=== PATIENT | female | born 1945 | race Caucasian/White ===

== ENCOUNTER 2019-04-10 06:04 | Emergency (ER) | payer OTHER ==
[2019-04-10 06:24] LABS: Absolute Lymphocytes (CBC) 1.2 K/uL (0.7-4.9); Basophils % 0.5 % (0-1.3); Hematocrit 40.6 % (36.0-45.0); Lymphocytes % 15.6 % (15.3-44.8); MPV 8.7 fL (7.6-11.3); RBC Red Blood Cell Count 4.42 M/uL (3.86-4.86)
[2019-04-10 06:36] LABS: Protime INR 0.99
--- NOTE | 2019-04-10 06:43 | RAD REPORT ---
EXAM DESCRIPTION: RAD - Chest Single View - 04/10/2019 6:33 am CLINICAL HISTORY: weakness Chest pain. COMPARISON: Chest Pa And Lat (2 Views) dated 09/27/2018 FINDINGS: Portable technique limits examination quality. The lungs are grossly clear. The heart is normal in size. No displaced fractures. IMPRESSION: No acute intrathoracic process suspected.
[2019-04-10] MEDS ORDERED: FOLIC ACID 5 MG/ML VIAL ONE (07:06)
[2019-04-10] MEDS ORDERED: NA CHLORIDE 0.9% 100 ML IV ONE (07:06)
[2019-04-10 07:13] LABS: Potassium 3.8 mmol/L (3.5-5.1)
--- NOTE | 2019-04-10 07:15 | EDPHYS ---
Physician Documentation [facility] Name: Marla Campos Age: 73 yrs Sex: Female : 1945 Arrival Date: 04/10/2019 Time: 06:07 Bed 3 Private MD: ED Physician Willard Beach HPI: 04/10 06:22 This 73 yrs old Female presents to ER via EMS with complaints of facial droop.cp 06:22 The patient's problem is reported as a facial droop, on left. Onset: The cp symptoms/episode began/occurred noticed this morning. Duration: The episode is continuous. 06:22 Context: the episode(s) was witnessed, by a significant other, , occurred at cp home, occurred while the patient was noticed while patient was attempting to poor water into coffee pot. reports he heard patient dropping dishes in kitchen. Associated signs and symptoms: Pertinent negatives: abdominal pain, chest pain, headache, weakness. Patient's baseline: Neuro: alert and fully oriented, Motor: no deficits, Ambulation: walks without assistance, Speech: normal. 06:22 Patient reports going to bed last night approximately 2030 and feeling normal. Patient cp reports awakening about 0430 this morning and feeling normal. EMS reports patient's heard her dropping dishes in kitchen and then observed patient to have left side facial droopat around 0500. Historical: - Allergies: 07:02 PENICILLINS; aa1 07:02 Sulfa (Sulfonamide Antibiotics); aa1 07:02 Demerol; aa1 07:02 Iodinated Contrast Media - IV Dye; aa1 07:02 Breo Ellipta; aa1 07:02 Biaxin; aa1 07:02 Clotrimazole-Betamethasone; aa1 07:02 Lyrica; aa1 07:02 Florinef Acetate; aa1 07:02 CITRIC ACID; aa1 07:02 QUINOLONES; aa1 07:02 Relafen; aa1 07:02 Vioxx; aa1 07:02 Prevacid; aa1 07:02 Periostat; aa1 07:02 Doxycycline; aa1 07:02 GABAPENTIN; aa1 - Home Meds: 07:02 spironolactone 100 mg Oral tab 1 tab once daily [Active]; metolazone 5 mg oral tab 1 aa1 tab once daily [Active]; potassium chloride 10 mEq Oral cpER 2 caps 3 times per day [Active]; levocetirizine 5 mg oral tab 1 tab once daily [Active]; Premarin 0.625 mg/gram Vagl crea 2 times per wk [Active]; promethazine-DM 6.25-15 mg/5 mL Oral syrp 5 mL every 6 hours [Active]; Ventolin Rotahaler/Rotacaps Inhl as needed [Active]; Albuterol Nebulizer as needed [Active]; clindamycin HCl 300 mg Oral cap as needed [Active]; nitrofurantoin macrocrystal 100 mg Oral cap as needed [Active]; - PMHx: 07:02 Asthma; fluid retention; aa1 - PSHx: 07:02 Appendectomy; Hysterectomy; Knee surgery; aa1 - Immunization history:: Adult Immunizations up to date. - Social history:: Smoking status: Patient/guardian denies using tobacco. - Ebola Screening: : Patient negative for fever greater than or equal to 101.5 degrees Fahrenheit, and additional compatible Ebola Virus Disease symptoms. ROS: 06:25 Eyes: Negative for injury, pain, redness, and discharge. cp 06:25 Constitutional: Negative for body aches, chills, fever, poor PO intake. 06:25 Cardiovascular: Negative for chest pain, edema, palpitations. 06:25 Respiratory: Negative for cough, shortness of breath, wheezing. 06:25 Abdomen/GI: Negative for abdominal pain, nausea, vomiting, and diarrhea. 06:25 Skin: Negative for rash. 06:25 Neuro: Positive for left side facial droop, Negative for altered mental status, dizziness, headache, numbness, syncope, weakness. 06:25 All other systems are negative. Exam: 06:23 ECG was reviewed by the Attending Physician. cp 06:32 Constitutional: The patient appears in no acute distress, alert, awake, cp non-diaphoretic, non-toxic, well developed, well nourished. 06:32 Head/face: Noted is no obvious of injury or deformity except left side facial droop. 06:32 Eyes: Periorbital structures: appear normal, Pupils: equal, round, and reactive to light and accomodation, Extraocular movements: intact throughout, Conjunctiva: normal, Sclera: no appreciated abnormality, Lids and lashes: appear normal, bilaterally. 06:32 ENT: External ear(s): are unremarkable, Nose: is normal, Mouth: is normal, Posterior pharynx: is normal, airway is patent, no erythema, no exudate. 06:32 Neck: ROM/movement: is normal, is supple, without pain, no range of motions limitations, no nuchal rigidity. 06:32 Chest/axilla: Inspection: normal, Palpation: is normal, no crepitus, no tenderness. 06:32 Cardiovascular: Rate: normal, Rhythm: regular, Edema: is not appreciated, JVD: is not appreciated. 06:32 Respiratory: the patient does not display signs of respiratory distress, Respirations: normal, no use of accessory muscles, no shallow respirations, no tachypnea, labored breathing, is not present, Breath sounds: are clear throughout, no decreased breath sounds, no stridor, no wheezing. 06:32 Abdomen/GI: Inspection: abdomen appears normal, Bowel sounds: normal, in all quadrants, Palpation: abdomen is soft and non-tender, in all quadrants. 06:32 Back: pain, is absent, ROM is normal. 06:32 Skin: no rash present. 06:32 Neuro: Orientation: to person, place \T\ time. Mentation: is normal, Cerebellar function: Romberg testing is negative, normal finger to nose testing, heel to al testing is normal, Motor: moves all fours, strength is normal, Sensation: is normal. 06:38 Radiologist reports: no acute findings, noted chronic changes associated with age cp Vital Signs: 06:23 BP 145 / 60; Pulse 80; Resp 17 S; Temp 98.1(O); Pulse Ox 100% on R/A; Weight 66.22 kg jd3 (R); Height 5 ft. 6 in. (167.64 cm) (R); Pain 0/10; 07:30 BP 125 / 60; Pulse 70; Resp 16 S; Temp 98.0(TE); Pulse Ox 98% on R/A; Pain 0/10; aa5 08:15 BP 122 / 64; Pulse 74; Resp 18 S; Pulse Ox 100% on R/A; Pain 0/10; aa5 06:23 Body Mass Index 23.56 (66.22 kg, 167.64 cm) jd3 NIH Stroke Scale Scores: 06:24 NIHSS Score: 2 rn 06:25 NIHSS Score: 2 cc3 06:25 NIHSS Score: 2 cc3 07:05 NIHSS Score: 2 aa5 07:35 NIHSS Score: 2 aa5 MDM: 06:21 Patient medically screened. cp 06:21 ED course: After long discussion with patient, she woke up at 0430 this morning, felt rn fine and still feels fine. woke up because hear her dropping things in kitchen, told her her face was drooping and talking funny, patient insists that she does not recognize anything being wrong with her. Exam shows left lower facial droop with some forehead sparing and subtle left am weakness without drift. Subtle sluggish closing/weakness of left eye. When asked about findings, patient unaware that they are present. She states she was normal when woke up but given she still states is currently asymptomatic, unreliable and unclear timing. Last known normal is going to be when she fell asleep last night around 2030. Given last known normal last night, and unclear events this AM, will not give TPA. Given lack of gross findings other than face, still possible that is bells palsy. Explained timing and need for definitive onset of symptoms/last known normal, patient agrees that she is not sure and would agree that las night when going to bed is last known normal.. 07:10 Physician consultation: DR Medrano, hospitalist, will accept patient as transfer. cp 07:20 Data reviewed: vital signs, nurses notes, lab test result(s), EKG, radiologic studies, cp CT scan, plain films, I have discussed the patient's presentation/case with the attending Emergency Department Physician;. 07:20 Test interpretation: by ED physician or midlevel provider: ECG. 04/10 06:12 Order name: Basic Metabolic Panel; Complete Time: 07:16 mw2 04/10 07:16 Interpretation: Normal except: NA 134; GLUC 107; GFR 48. 04/10 06:12 Order name: CBC with Diff; Complete Time: 06:51 mw2 04/10 07:16 Interpretation: Reviewed. 04/10 06:12 Order name: Protime (+inr); Complete Time: 06:51 mw2 04/10 06:12 Order name: Ptt, Activated; Complete Time: 06:51 mw2 04/10 07:06 Order name: Troponin I 04/10 07:06 Order name: LAB Add On cp 04/10 07:06 Order name: BNP cp 04/10 06:12 Order name: CT Stroke Brain w/o Contrast [facility] 04/10 06:12 Order name: Stroke CXR 1 View; Complete Time: 06:51 mw2 04/10 06:12 Order name: EKG; Complete Time: 06:14 mw2 04/10 06:12 Order name: Accucheck; Complete Time: 06:35 mw2 04/10 06:12 Order name: Cardiac monitoring; Complete Time: 06:35 mw2 04/10 06:12 Order name: EKG - Nurse/Tech; Complete Time: 06:35 mw2 04/10 06:12 Order name: IV Saline Lock; Complete Time: 06:35 mw2 04/10 06:12 Order name: Labs collected and sent; Complete Time: 06:35 mw2 04/10 06:12 Order name: NPO; Complete Time: 06:35 mw2 04/10 06:12 Order name: O2 Per Protocol; Complete Time: 06:35 mw2 04/10 06:12 Order name: O2 Sat Monitoring; Complete Time: 06:35 mw2 04/10 06:12 Order name: Stroke Swallow Screen; Complete Time: 06:36 mw2 EC:23 Rate is 83 beats/min. Rhythm is regular. OK interval is normal. QRS interval is normal. cp QT interval is normal. T waves are Flattened in lead aVL. Interpreted by me. Reviewed by me. Administered Medications: 07:00 Drug: foLIC Acid 1 mg Route: IVPB; Site: right forearm; cc3 07:14 Not Given (patient failed swallow screen): Aspirin Chewable Tablet 324 mg PO once; 81 cp mg tablets x 4 07:30 Drug: Aspirin Suppository 300 mg Route: OK; aa5 Point of Care Testing: Blood Glucose: 06:12 Blood Glucose: 108 mg/dL; cc3 Ranges: Critical Glucose Levels:Adult <50 mg/dl or >400 mg/dl <40 mg/dl or >180 mg/dl Disposition: 07:30 Chart complete. cp Disposition: 04/10/19 07:13 Transfer ordered to [facility]. Diagnosis is Left Facial Droop. - Reason for transfer: Higher level of care. - Accepting physician is DR Medrano. - Condition is Stable. - Problem is new. - Symptoms are unchanged. NIH Stroke Scale - NIH Stroke Score Date: 04/10/2019 Time: 06:24 Total Score = 2 1a. Level of Consciousness (LOC) - 0(Alert) 1b. Level of Consciousness (LOC) (Year \T\ Age) - 0(Both) 1c. LOC Commands (Open \T\ Closes Eyes/Marketing Graphics Specialist) - 0(Both) 2. Best Gaze (Lateral Gaze Paresis) - 0(Normal) 3. Visual Field Loss - 0(No visual loss) 4. Facial Palsy - 2(Partial paralysis) 5a. Left Arm: Motor (10-second hold) - 0(No drift) 5b. Right Arm: Motor (10-second hold) - 0(No drift) 6a. Left Leg: Motor (5-second hold - always test supine) - 0(No drift) 6b. Right Leg: Motor (5-second hold - always test supine) - 0(No drift) 7. Limb Ataxia (finger/nose \T\ heel/al - test with eyes open) - 0(Absent) 8. Sensory Loss (pinprick arms/legs/face) - 0(Normal) 9. Best Language: Aphasia (description/naming/reading) - 0(No aphasia) 10. Dysarthria (speech clarity - read or repeat words) - 0(Normal) 11. Extinction and Inattention (visual/tactile/auditory/spatial/personal) - 0(No abnormality) Initials: gertrude NIH Stroke Scale - NIH Stroke Score Date: 04/10/2019 Time: 06:25 Total Score = 2 1a. Level of Consciousness (LOC) - 0(Alert) 1b. Level of Consciousness (LOC) (Year \T\ Age) - 0(Both) 1c. LOC Commands (Open \T\ Closes Eyes/Marketing Graphics Specialist) - 0(Both) 2. Best Gaze (Lateral Gaze Paresis) - 0(Normal) 3. Visual Field Loss - 0(No visual loss) 4. Facial Palsy - 2(Partial paralysis) 5a. Left Arm: Motor (10-second hold) - 0(No drift) 5b. Right Arm: Motor (10-second hold) - 0(No drift) 6a. Left Leg: Motor (5-second hold - always test supine) - 0(No drift) 6b. Right Leg: Motor (5-second hold - always test supine) - 0(No drift) 7. Limb Ataxia (finger/nose \T\ heel/al - test with eyes open) - 0(Absent) 8. Sensory Loss (pinprick arms/legs/face) - 0(Normal) 9. Best Language: Aphasia (description/naming/reading) - 0(No aphasia) 10. Dysarthria (speech clarity - read or repeat words) - 0(Normal) 11. Extinction and Inattention (visual/tactile/auditory/spatial/personal) - 0(No abnormality) Initials: cc3 NIH Stroke Scale - NIH Stroke Score Date: 04/10/2019 Time: 06:25 Total Score = 2 1a. Level of Consciousness (LOC) - 0(Alert) 1b. Level of Consciousness (LOC) (Year \T\ Age) - 0(Both) 1c. LOC Commands (Open \T\ Closes Eyes/Marketing Graphics Specialist) - 0(Both) 2. Best Gaze (Lateral Gaze Paresis) - 0(Normal) 3. Visual Field Loss - 0(No visual loss) 4. Facial Palsy - 2(Partial paralysis) 5a. Left Arm: Motor (10-second hold) - 0(No drift) 5b. Right Arm: Motor (10-second hold) - 0(No drift) 6a. Left Leg: Motor (5-second hold - always test supine) - 0(No drift) 6b. Right Leg: Motor (5-second hold - always test supine) - 0(No drift) 7. Limb Ataxia (finger/nose \T\ heel/al - test with eyes open) - 0(Absent) 8. Sensory Loss (pinprick arms/legs/face) - 0(Normal) 9. Best Language: Aphasia (description/naming/reading) - 0(No aphasia) 10. Dysarthria (speech clarity - read or repeat words) - 0(Normal) 11. Extinction and Inattention (visual/tactile/auditory/spatial/personal) - 0(No abnormality) Initials: cc3 NIH Stroke Scale - NIH Stroke Score Date: 04/10/2019 Time: 07:05 Total Score = 2 1a. Level of Consciousness (LOC) - 0(Alert) 1b. Level of Consciousness (LOC) (Year \T\ Age) - 0(Both) 1c. LOC Commands (Open \T\ Closes Eyes/Marketing Graphics Specialist) - 0(Both) 2. Best Gaze (Lateral Gaze Paresis) - 0(Normal) 3. Visual Field Loss - 0(No visual loss) 4. Facial Palsy - 2(Partial paralysis) 5a. Left Arm: Motor (10-second hold) - 0(No drift) 5b. Right Arm: Motor (10-second hold) - 0(No drift) 6a. Left Leg: Motor (5-second hold - always test supine) - 0(No drift) 6b. Right Leg: Motor (5-second hold - always test supine) - 0(No drift) 7. Limb Ataxia (finger/nose \T\ heel/al - test with eyes open) - 0(Absent) 8. Sensory Loss (pinprick arms/legs/face) - 0(Normal) 9. Best Language: Aphasia (description/naming/reading) - 0(No aphasia) 10. Dysarthria (speech clarity - read or repeat words) - 0(Normal) 11. Extinction and Inattention (visual/tactile/auditory/spatial/personal) - 0(No abnormality) Initials: aa5 NIH Stroke Scale - NIH Stroke Score Date: 04/10/2019 Time: 07:35 Total Score = 2 1a. Level of Consciousness (LOC) - 0(Alert) 1b. Level of Consciousness (LOC) (Year \T\ Age) - 0(Both) 1c. LOC Commands (Open \T\ Closes Eyes/Marketing Graphics Specialist) - 0(Both) 2. Best Gaze (Lateral Gaze Paresis) - 0(Normal) 3. Visual Field Loss - 0(No visual loss) 4. Facial Palsy - 2(Partial paralysis) 5a. Left Arm: Motor (10-second hold) - 0(No drift) 5b. Right Arm: Motor (10-second hold) - 0(No drift) 6a. Left Leg: Motor (5-second hold - always test supine) - 0(No drift) 6b. Right Leg: Motor (5-second hold - always test supine) - 0(No drift) 7. Limb Ataxia (finger/nose \T\ heel/al - test with eyes open) - 0(Absent) 8. Sensory Loss (pinprick arms/legs/face) - 0(Normal) 9. Best Language: Aphasia (description/naming/reading) - 0(No aphasia) 10. Dysarthria (speech clarity - read or repeat words) - 0(Normal) 11. Extinction and Inattention (visual/tactile/auditory/spatial/personal) - 0(No abnormality) Initials: aa5 Addendum: 04/12/2019 07:12 Co-signature as Attending Physician, Willard Beach MD. rn Signatures: Dispatcher [employer] EDMS Jodee Persaud RN RN aa1 Willard Beach MD MD rn Calderon, Audri, RN RN aa5 Naveed Blackmon PA PA cp Davies, Jonathon RN RN jd3 Chuck Frederick mw2 Maryam Gilbert cc3 Corrections: (The following items were deleted from the chart) 04/10 06:35 06:21 ED course: After long discussion with patient, she woke up at 0430 this rn morning, felt fine and still feels fine. woke up because hear her dropping things in kitchen, told her her face was drooping and talking funny, patient insists that she does not recognize anything being wrong with her. Exam shows left lower facial droop with forehead sparing and subtle left am weakness without drift. When asked about findings, patient unaware that they are present. She states she was normal when woke up but given she still states is currently asymptomatic, unreliable and unclear timing. Last known normal is going to be when she fell asleep last night around 2029. Given last known normal last night, and unclear events this AM, will not give TPA. . rn 08:51 07:13 04/10/2019 07:13 Transfer ordered to [facility]. aa5 Diagnosis is Left Facial Droop. Reason for transfer: Higher level of care. Accepting physician is DR Medrano. Condition is Stable. Problem is new. Symptoms are unchanged. cp
--- NOTE | 2019-04-10 07:15 | ER ---
Nurse's Notes [facility] Name: Marla Campos Age: 73 yrs Sex: Female : 1945 Arrival Date: 04/10/2019 Time: 06:07 Bed 3 Private MD: Diagnosis: Left Facial Droop Presentation: 04/10 06:06 Presenting complaint: Patient states: she woke up this morning about 0500 feeling aa1 normal but shortly after waking she went to get a glass of water and dropped the glass due to weakness in her hand. EMS states pt's went to check on her and pt began to develop a facial droop as well. States, "I felt fine when I woke up and didn't even notice anything. It was must that saw it." Pt met in ambulance bay by MD and taken to CT by EMS stretcher. Transition of care: patient was not received from another setting of care. Onset of symptoms was April 10, 2019 at 05:00. Risk Assessment: Do you want to hurt yourself or someone else? Patient reports no desire to harm self or others. Initial Sepsis Screen: Does the patient have a suspected source of infection? No. Patient's initial sepsis screen is negative. 06:06 Method Of Arrival: EMS: [facility] aa1 06:06 Acuity: DANNY 2 aa1 06:06 An acute neurological deficit is present. The charge nurse has been notified. jd3 Pre-hospital glucose is not applicable to this patient. 06:23 Initial Sepsis Screen: Does the patient meet any 2 criteria? No. Patient's initial jd3 sepsis screen is negative. Care prior to arrival: IV initiated. 18 GA, in the right wrist. Triage Assessment: 06:06 The onset of the patients symptoms was April 10, 2019 at 05:00. General: Appears in cc3 no apparent distress. comfortable, Behavior is calm, cooperative, appropriate for age. Pain: Denies pain. EENT: No signs and/or symptoms were reported regarding the EENT system. 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 Full function Speech is normal, Facial droop on left, Facial symmetry: tongue is midline, Pupils are PERRLA, Intact Reports facial droop. Cardiovascular: Denies chest pain, Heart tones S1 S2 present Capillary refill < 3 seconds in bilateral fingers Patient's skin is warm and dry. Rhythm is sinus rhythm. Respiratory: Airway is patent Respiratory effort is even, unlabored, Respiratory pattern is regular, symmetrical. GI: Abdomen is round non-distended, Bowel sounds present X 4 quads. : No signs and/or symptoms were reported regarding the genitourinary system. Derm: Skin is intact, is fragile, Skin is pink, warm \\T\\ dry. normal. Musculoskeletal: Circulation, motion, and sensation intact. Range of motion: intact in all extremities. Stroke Activation: Symptom onset > 6 hours Physician: Stroke Attending; Name: ; Notified At: ; Arrived At: Physician: Chief Stroke Resident; Name: ; Notified At: ; Arrived At: Physician: Stroke Resident; Name: ; Notified At: ; Arrived At: Physician: ED Attending; Name: Dr. Beach; Notified At: 06:04; Arrived At: 06:04 Physician: ED Resident; Name: ; Notified At: ; Arrived At: Historical: - Allergies: 07:02 PENICILLINS; aa1 07:02 Sulfa (Sulfonamide Antibiotics); aa1 07:02 Demerol; aa1 07:02 Iodinated Contrast Media - IV Dye; aa1 07:02 Breo Ellipta; aa1 07:02 Biaxin; aa1 07:02 Clotrimazole-Betamethasone; aa1 07:02 Lyrica; aa1 07:02 Florinef Acetate; aa1 07:02 CITRIC ACID; aa1 07:02 QUINOLONES; aa1 07:02 Relafen; aa1 07:02 Vioxx; aa1 07:02 Prevacid; aa1 07:02 Periostat; aa1 07:02 Doxycycline; aa1 07:02 GABAPENTIN; aa1 - Home Meds: 07:02 spironolactone 100 mg Oral tab 1 tab once daily [Active]; metolazone 5 mg oral tab 1 aa1 tab once daily [Active]; potassium chloride 10 mEq Oral cpER 2 caps 3 times per day [Active]; levocetirizine 5 mg oral tab 1 tab once daily [Active]; Premarin 0.625 mg/gram Vagl crea 2 times per wk [Active]; promethazine-DM 6.25-15 mg/5 mL Oral syrp 5 mL every 6 hours [Active]; Ventolin Rotahaler/Rotacaps Inhl as needed [Active]; Albuterol Nebulizer as needed [Active]; clindamycin HCl 300 mg Oral cap as needed [Active]; nitrofurantoin macrocrystal 100 mg Oral cap as needed [Active]; - PMHx: 07:02 Asthma; fluid retention; aa1 - PSHx: 07:02 Appendectomy; Hysterectomy; Knee surgery; aa1 - Immunization history:: Adult Immunizations up to date. - Social history:: Smoking status: Patient/guardian denies using tobacco. - Ebola Screening: : Patient negative for fever greater than or equal to 101.5 degrees Fahrenheit, and additional compatible Ebola Virus Disease symptoms. Screenin:25 VAN Screening: Arm Drift: Patient shows no arm weakness. Patient is VAN negative. cc3 Visual Disturbance: No visual disturbance noted. Aphasia: No aphasia noted. Neglect: No neglect noted. Patient has been NPO before screening. The patient is alert, able to follow commands. The patient does not exhibit slurred or garbled speech The patient is not exhibiting difficulty speaking. The patient does not exhibit difficulty understanding words. The patient is able to swallow own secretions with no drooling or need for suction. Patient tolerated one teaspoon of water. No drooling, immediate coughing, gurgling, or clearing of the throat was noted. The patient did not tolerate 90mL of water. Drooling, immediate coughing, gurgling, or clearing of the throat was noted. Bedside swallow screening discontinued. Patient kept NPO until cleared by Speech Therapy or Physician. The patient failed the bedside swallow screening. The patient will be kept NPO until cleared by Speech Therapy or Physician. Provider notified of bedside swallow screening results: Willard Beach MD. 06:27 Abuse screen: Denies threats or abuse. Nutritional screening: No deficits noted. jd3 Tuberculosis screening: No symptoms or risk factors identified. Fall Risk IV access (20 points). Ambulatory Aid- None/Bed Rest/Nurse Assist (0 pts). Gait- Normal/Bed Rest/Wheelchair (0 pts) Mental Status- Oriented to own ability (0 pts). Total Levine Fall Scale indicates No Risk (0-24 pts). Assessment: 06:25 VAN Scoring: Arm Drift: Patients demonstrates NO arm weakness. Patient is VAN Negative. cc3 Visual Disturbance: No visual disturbance noted. Aphasia: No aphasia noted. Neglect: No neglect noted. Patient has been NPO before screening. The patient is alert, and able to follow commands. The patient does not exhibit slurred or garbled speech. The patient is not exhibiting difficulty speaking. The patient does not exhibit difficulty understanding words. The patient is able to swallow own secretions with no drooling or need for suction. Patient tolerated one teaspoon of water. No drooling, immediate coughing, gurgling, or clearing of the throat was noted. The patient did not tolerate 90mL of water. Drooling, immediate coughing, gurgling, or clearing of the throat was noted. Bedside swallow screening discontinued. Patient kept NPO until cleared by Speech Therapy or Physician. The patient failed the bedside swallow screening. The patient will be kept NPO until cleared by Speech Therapy or Physician. Provider notified of bedside swallow screening results: Willard Beach MD. 07:05 General: Appears comfortable, Behavior is calm, cooperative. Pain: Denies pain. 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 Speech is normal, Facial droop on left, Pupils are PERRLA, Denies blurred vision dizziness, paresthesias numbness headache. Cardiovascular: Heart tones S1 S2 present Rhythm is regular. Respiratory: Airway is patent Respiratory effort is even, unlabored, Respiratory pattern is regular, symmetrical, Breath sounds are clear bilaterally. GI: Abdomen is non-distended, Bowel sounds present X 4 quads. Abd is soft and non tender X 4 quads. : No signs and/or symptoms were reported regarding the genitourinary system. EENT: No signs and/or symptoms were reported regarding the EENT system. Derm: Skin is pink, warm \\T\\ dry. Musculoskeletal: Range of motion: intact in all extremities. 07:05 T-PA (Activase) Screening: Contraindications: Other: symptoms onset unknown. aa5 07:35 Reassessment: Patient is alert, oriented x 3, equal unlabored respirations, skin aa5 warm/dry/pink. Patient denies pain at this time. 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 Speech is normal, Facial droop on left, Pupils are PERRLA. 07:55 Reassessment: Pt assisted to the bathroom, pt was unsteady standing up and taking a few sv steps. Pt placed in a wheelchair and taken to the bathroom. 08:43 Reassessment: Patient is alert, oriented x 3, equal unlabored respirations, skin aa5 warm/dry/pink. Vital Signs: 06:23 BP 145 / 60; Pulse 80; Resp 17 S; Temp 98.1(O); Pulse Ox 100% on R/A; Weight 66.22 kg jd3 (R); Height 5 ft. 6 in. (167.64 cm) (R); Pain 0/10; 07:30 BP 125 / 60; Pulse 70; Resp 16 S; Temp 98.0(TE); Pulse Ox 98% on R/A; Pain 0/10; aa5 08:15 BP 122 / 64; Pulse 74; Resp 18 S; Pulse Ox 100% on R/A; Pain 0/10; aa5 06:23 Body Mass Index 23.56 (66.22 kg, 167.64 cm) jd3 NIH Stroke Scale Scores: 06:24 NIHSS Score: 2 rn 06:25 NIHSS Score: 2 cc3 06:25 NIHSS Score: 2 cc3 07:05 NIHSS Score: 2 aa5 07:35 NIHSS Score: 2 aa5 ED Course: 06:06 Maintain EMS IV. Dressing intact. Good blood return noted. Site clean \\T\\ dry. Gauge \\T\\ cc 3 site: gauge 18 right forearm. 06:07 Patient arrived in ED. aa1 06:08 Naveed Blackmon PA is PHCP. cp 06:08 Willard Beach MD is Attending Physician. cp 06:10 CT completed. Patient tolerated procedure well. Patient moved to CT via stretcher. Patient moved back from CT. 06:16 Triage completed. aa1 06:21 CT Stroke Brain w/o Contrast In Process Unspecified. EDMS 06:25 Arm band placed on. EKG completed in triage. Results shown to MD. jd3 06:27 Patient has correct armband on for positive identification. Placed in gown. Bed in low jd3 position. Call light in reach. Side rails up X2. 06:33 Stroke CXR 1 View In Process Unspecified. EDMS 06:34 Maryam Gilbert is Primary Nurse. cc3 07:00 Report given to LEONARDA Martell and LEONARDA Campos. cc3 07:00 Report received from LEONARDA Francisco. aa5 07:26 Beth Rick, LEONARDA is Primary Nurse. aa5 08:43 No provider procedures requiring assistance completed. Patient transferred, IV remains aa5 in place. Administered Medications: 07:00 Drug: foLIC Acid 1 mg Route: IVPB; Site: right forearm; cc3 07:14 Not Given (patient failed swallow screen): Aspirin Chewable Tablet 324 mg PO once; 81 cp mg tablets x 4 07:30 Drug: Aspirin Suppository 300 mg Route: NJ; aa5 Point of Care Testing: Blood Glucose: 06:12 Blood Glucose: 108 mg/dL; cc3 Ranges: Outcome: 07:13 ER care complete, transfer ordered by . cp 08:43 Transferred by ground EMS to [facility], Transfer form completed. aa5 X-rays sent w/ patient. Note: Report given to [facility] 08:43 Condition: stable 08:43 Discharge instructions given to patient, significant other, Instructed on the need for transfer, Demonstrated understanding of instructions. 08:48 Patient left the ED. aa5 NIH Stroke Scale - NIH Stroke Score Date: 04/10/2019 Time: 06:24 Total Score = 2 1a. Level of Consciousness (LOC) - 0(Alert) 1b. Level of Consciousness (LOC) (Year \\T\\ Age) - 0(Both) 1c. LOC Commands (Open \\T\\ Closes Eyes/[place]anner) - 0(Both) 2. Best Gaze (Lateral Gaze Paresis) - 0(Normal) 3. Visual Field Loss - 0(No visual loss) 4. Facial Palsy - 2(Partial paralysis) 5a. Left Arm: Motor (10-second hold) - 0(No drift) 5b. Right Arm: Motor (10-second hold) - 0(No drift) 6a. Left Leg: Motor (5-second hold - always test supine) - 0(No drift) 6b. Right Leg: Motor (5-second hold - always test supine) - 0(No drift) 7. Limb Ataxia (finger/nose \\T\\ heel/al - test with eyes open) - 0(Absent) 8. Sensory Loss (pinprick arms/legs/face) - 0(Normal) 9. Best Language: Aphasia (description/naming/reading) - 0(No aphasia) 10. Dysarthria (speech clarity - read or repeat words) - 0(Normal) 11. Extinction and Inattention (visual/tactile/auditory/spatial/personal) - 0(No abnormality) Initials: rn NIH Stroke Scale - NIH Stroke Score Date: 04/10/2019 Time: Total Score = 2 1a. Level of Consciousness (LOC) - 0(Alert) 1b. Level of Consciousness (LOC) (Year \\T\\ Age) - 0(Both) 1c. LOC Commands (Open \\T\\ Closes Eyes/[place]) - 0(Both) 2. Best Gaze (Lateral Gaze Paresis) - 0(Normal) 3. Visual Field Loss - 0(No visual loss) 4. Facial Palsy - 2(Partial paralysis) 5a. Left Arm: Motor (10-second hold) - 0(No drift) 5b. Right Arm: Motor (10-second hold) - 0(No drift) 6a. Left Leg: Motor (5-second hold - always test supine) - 0(No drift) 6b. Right Leg: Motor (5-second hold - always test supine) - 0(No drift) 7. Limb Ataxia (finger/nose \\T\\ heel/al - test with eyes open) - 0(Absent) 8. Sensory Loss (pinprick arms/legs/face) - 0(Normal) 9. Best Language: Aphasia (description/naming/reading) - 0(No aphasia) 10. Dysarthria (speech clarity - read or repeat words) - 0(Normal) 11. Extinction and Inattention (visual/tactile/auditory/spatial/personal) - 0(No abnormality) Initials: cc3 NIH Stroke Scale - NIH Stroke Score Date: 04/10/2019 Time: Total Score = 2 1a. Level of Consciousness (LOC) - 0(Alert) 1b. Level of Consciousness (LOC) (Year \\T\\ Age) - 0(Both) 1c. LOC Commands (Open \\T\\ Closes Eyes/[place]) - 0(Both) 2. Best Gaze (Lateral Gaze Paresis) - 0(Normal) 3. Visual Field Loss - 0(No visual loss) 4. Facial Palsy - 2(Partial paralysis) 5a. Left Arm: Motor (10-second hold) - 0(No drift) 5b. Right Arm: Motor (10-second hold) - 0(No drift) 6a. Left Leg: Motor (5-second hold - always test supine) - 0(No drift) 6b. Right Leg: Motor (5-second hold - always test supine) - 0(No drift) 7. Limb Ataxia (finger/nose \\T\\ heel/al - test with eyes open) - 0(Absent) 8. Sensory Loss (pinprick arms/legs/face) - 0(Normal) 9. Best Language: Aphasia (description/naming/reading) - 0(No aphasia) 10. Dysarthria (speech clarity - read or repeat words) - 0(Normal) 11. Extinction and Inattention (visual/tactile/auditory/spatial/personal) - 0(No abnormality) Initials: cc3 NIH Stroke Scale - NIH Stroke Score Date: 04/10/2019 Time: 07:05 Total Score = 2 1a. Level of Consciousness (LOC) - 0(Alert) 1b. Level of Consciousness (LOC) (Year \\T\\ Age) - 0(Both) 1c. LOC Commands (Open \\T\\ Closes Eyes/[place]) - 0(Both) 2. Best Gaze (Lateral Gaze Paresis) - 0(Normal) 3. Visual Field Loss - 0(No visual loss) 4. Facial Palsy - 2(Partial paralysis) 5a. Left Arm: Motor (10-second hold) - 0(No drift) 5b. Right Arm: Motor (10-second hold) - 0(No drift) 6a. Left Leg: Motor (5-second hold - always test supine) - 0(No drift) 6b. Right Leg: Motor (5-second hold - always test supine) - 0(No drift) 7. Limb Ataxia (finger/nose \\T\\ heel/al - test with eyes open) - 0(Absent) 8. Sensory Loss (pinprick arms/legs/face) - 0(Normal) 9. Best Language: Aphasia (description/naming/reading) - 0(No aphasia) 10. Dysarthria (speech clarity - read or repeat words) - 0(Normal) 11. Extinction and Inattention (visual/tactile/auditory/spatial/personal) - 0(No abnormality) Initials: aa5 NIH Stroke Scale - NIH Stroke Score Date: 04/10/2019 Time: 07:35 Total Score = 2 1a. Level of Consciousness (LOC) - 0(Alert) 1b. Level of Consciousness (LOC) (Year \\T\\ Age) - 0(Both) 1c. LOC Commands (Open \\T\\ Closes Eyes/[place]) - 0(Both) 2. Best Gaze (Lateral Gaze Paresis) - 0(Normal) 3. Visual Field Loss - 0(No visual loss) 4. Facial Palsy - 2(Partial paralysis) 5a. Left Arm: Motor (10-second hold) - 0(No drift) 5b. Right Arm: Motor (10-second hold) - 0(No drift) 6a. Left Leg: Motor (5-second hold - always test supine) - 0(No drift) 6b. Right Leg: Motor (5-second hold - always test supine) - 0(No drift) 7. Limb Ataxia (finger/nose \\T\\ heel/al - test with eyes open) - 0(Absent) 8. Sensory Loss (pinprick arms/legs/face) - 0(Normal) 9. Best Language: Aphasia (description/naming/reading) - 0(No aphasia) 10. Dysarthria (speech clarity - read or repeat words) - 0(Normal) 11. Extinction and Inattention (visual/tactile/auditory/spatial/personal) - 0(No abnormality) Initials: aa5 Signatures: Dispatcher [employer] ED[facility] Jayshree Geronimo RN RN sv Autenrieth, Alissa, RN RN aa1 Erickson Guaman Audri, RN RN aa5 Naveed Blackmon PA PA cp Davies, Jonathon RN RN jd3 Maryam Gilbert cc3 Corrections: (The following items were deleted from the chart) 06:23 06:23 Care prior to arrival: None. jd3 jd3 06:27 06:27 Fall Risk None identified. jd3 jd3 09:17 08:51 Patient left the ED. aa5 aa5
[2019-04-10 07:24] LABS: NT PRO-BNP 53 pg/mL (<125); Troponin I < 0.02 ng/mL (0.0-0.045)
[2019-04-10] MEDS ORDERED: ASPIRIN 600 MG/SUPP PR ONE (07:30)
[2019-04-10 08:59] VITALS: BP 145/60; TEMP 98.1; O2SAT 100
--- NOTE | 2019-04-10 09:22 | EKG ---
Test Date: 2019-04-10 Test Time: 06:17:58 Drug Safety Coordinator: BETH MEASUREMENT RESULTS: Intervals: Rate: 83 LA: 140 QRSD: 80 QT: 364 QTc: 427 [place]: P: 69 LA: 140 QRS: 23 T: 68 INTERPRETIVE STATEMENTS: Normal sinus rhythm Normal ECG Compared to ECG 04/03/2002 07:53:00 no significant change from previous ECG Electronically Signed On 04-10-19 09:20:57 CDT by Preet Gomez
--- NOTE | 2019-04-10 10:10 | RAD REPORT ---
EXAM DESCRIPTION: Ct Stroke Brain Wo Cont ADDENDUM #1 THIS REPORT CONTAINS FINDINGS THAT MAY BE CRITICAL TO PATIENT CARE: The findings were verbally discussed via telephone conference with RUDDY Servin by Dr. Berta Rosales on 04/10/20 6:39 AM CDT .The results were acknowledged and understood. Electronically signed by: Barby Rosales MD 04/10/2019 6:40 AM CDT End of Addendum EXAM DESCRIPTION: CT Head Without Intravenous Contrast CLINICAL HISTORY: The patient is 73 years old and is Female; WEAKNESS TECHNIQUE: Axial computed tomography images of the head/brain without intravenous contrast. Sagitt al and coronal reformatted images were created and reviewed. This CT exam was performed using one o r more of the following dose reduction techniques: automated exposure control, adjustment of the mA and/or kV according to patient size, and/or use of iterative reconstruction technique. COMPARISON: No relevant prior studies available. FINDINGS: BRAIN: Diffuse cerebral atrophy is noted. There are nonspecific periventricular white ma tter changes, which are likely related to chronic small vessel disease. The arroyo-white differentiatio n is maintained. There are no extra-axial fluid collections or acute hemorrhage. There is diffuse pro minence of the ventricles, which is likely related to central atrophy. VENTRICLES: Unremarkable. No ventriculomegaly. BONES/JOINTS: No acute fracture. SOFT TISSUES: Unremarkable. SINUSES: Unremarkable as visualized. No acute sinusitis. MASTOID AIR CELLS: Unremarkable as visualized. No mastoid effusion. ORBITS: Unremarkable as visualized. IMPRESSION: 1. No acute intracranial findings visualized. 2. Nonspecific periventricular white matter changes, likely related to chronic small vessel disease . 3. Diffuse cerebral atrophy. Electronically signed by: Barby Rosales MD 04/10/2019 6:34 AM CDT Due to temporary technical issues with the PACS/Fluency reporting system, reports are being signed by the in house radiologist as a courtesy to ensure prompt reporting. The interpreting radiologist is f ully responsible for the content of the report.
== END 2019-04-10 08:51 | disposition short-term general hospital (02) ==
LOC: ER 06:04
DX: R29.810 Facial weakness (principal); J45.909 Unspecified asthma, uncomplicated; Z88.0 Allergy status to penicillin; Z88.1 Allergy status to other antibiotic agents; Z88.2 Allergy status to sulfonamides; Z88.5 Allergy status to narcotic agent; Z88.8 Allergy status to other drugs, medicaments and biological substances; Z91.041 Radiographic dye allergy status
CPT/HCPCS: 36415; 70450; 71045; 80048; 82962; 83880; 84484; 85025; 85610; 85730; 93005; 96374; 99285

== ENCOUNTER 2021-04-26 12:03 | Day surgery (SDC) | payer OTHER ==
--- NOTE | 2021-04-23 11:06 | RAD REPORT ---
EXAM DESCRIPTION: RAD - Chest Pa And Lat (2 Views) - 04/23/2021 11:00 am CLINICAL HISTORY: pre-cath procedrue Chest pain. COMPARISON: Chest Single View dated 04/10/2019; Chest Pa And Lat (2 Views) dated 09/27/2018 FINDINGS: Small benign calcified granuloma seen in the retrosternal airspace. The lungs are grossly clear of acute infiltrate. The heart is normal in size. No displaced fractures.
[2021-04-23 11:09] LABS: Absolute Lymphocytes (CBC) 1.6 K/uL (0.7-4.9); Basophils % 1.2 % (0-1.3); Lymphocytes % 21.8 % (15.3-44.8); MPV 8.9 fL (7.6-11.3); RBC Red Blood Cell Count 4.53 M/uL (3.86-4.86)
[2021-04-23 11:22] LABS: Protime INR 1.03
[2021-04-23 11:49] LABS: Potassium 3.4 mmol/L (3.5-5.1)
[~2021-04-26 12:03] MED LIST: HEPA 1000U/500MLS 2,000 UNIT/1,000 ML BAG IV ONE
[2021-04-26] MEDS ORDERED: NA CHLORIDE 0.9% 500 ML ONE (12:37)
[2021-04-26] MEDS ORDERED: ATROPINE SULF 1 MG/10 ML SYR IV ONE (13:53)
[2021-04-26] MEDS ORDERED: FENTANYL CITR 100 MCG/2 ML ONE (13:53)
[2021-04-26] MEDS ORDERED: HEPARIN 5000 UNIT/ML 1 ML VIAL ONE (13:53)
[2021-04-26] MEDS ORDERED: MIDAZOLAM HCL 2 MG/2 ML INJ ONE (13:53)
[2021-04-26] MEDS ORDERED: DIPHENHYDRAMINE 50 MG/ML VIAL ONE (14:12)
[2021-04-26] MEDS ORDERED: METHYLPREDNISOLONE 125 MG INJ ONE (14:12)
[2021-04-26 19:09] VITALS: BP 127/45; TEMP 98.3; O2SAT 96
--- NOTE | 2021-04-26 20:45 | OP ---
Date of Procedure: 04/26/2021 Surgeon: MELIDA RAMSEY Procedures Performed: 1.Selective coronary angiogram. 2.Selective bilateral carotid angiogram. Indications: 1.Carotid stenosis. 2.Unstable angina. Access: Right femoral artery 6-Mauritian closed with StarClose. Anesthesia: Total sedation time was 35 minutes. Complications: None. Description Of Procedure: After risks, benefits, and alternatives were explained, the patient was br ought to the cardiac catheterization laboratory, prepped and draped in usual sterile fashion. Then, we accessed the right femoral artery using an ultrasound and micropuncture kit, placed a 6-Mauritian Pin nacle sheath and then we took a 6-Mauritian JL4 catheter. There were good engaged left main, took stand vielka views. Then took a 6-Mauritian 3DRC catheter into the aortic root, engaged the right coronary arter y, then engaged the left common carotid artery and right common carotid artery with the same catheter and took standard views and then removed the catheter and the sheath and a StarClose was deployed wi th good hemostasis after sheath removal. Findings: 1.Left main; normal, small size vessel. 2.LAD; normal, small size small vessel with normal diagonal branches. 3.Left circumflex; ostial to proximal 40% stenosis. Otherwise, no significant disease. 4.RCA; large dominant, diffuse, heavily calcified stenosis, proximally to mid, there is about 40% to 50% and mid to distal is more than 80%. Carotid angiogram: 1.The left common carotid is patent with midportion of 30% stenosis and then the left internal carot id has ostial 50% stenosis. 2.Right common carotid is patent, but the right internal carotid is totally occluded 100%. Conclusions: 1.Severe RCA disease, heavily calcified. 2.Occluded right internal carotid artery and 50% stenosis of the left internal carotid artery 56%. Plan: 1.PCI with atherectomy of the RCA. 2.Refer to CV surgery for evaluation of carotid situation. SR/MODL Voice ID: [id number] Report ID: [id number]
== END 2021-04-26 17:40 | disposition home or self-care (01) ==
LOC: CCL 12:03
PROVIDERS: ATTEND Internal Medicine
PROC: B201YZZ Plain Radiography of Multiple Coronary Arteries using Other Contrast (ICD-10-PCS; principal; 2021-04-26)
PROC: B305ZZZ Plain Radiography of Bilateral Common Carotid Arteries (ICD-10-PCS; 2021-04-26)
DX: I25.110 Atherosclerotic heart disease of native coronary artery with unstable angina pectoris (principal); I65.23 Occlusion and stenosis of bilateral carotid arteries; I10 Essential (primary) hypertension; E78.5 Hyperlipidemia, unspecified; Z87.891 Personal history of nicotine dependence; Z20.822 Contact with and (suspected) exposure to COVID-19; Z88.0 Allergy status to penicillin; Z88.2 Allergy status to sulfonamides; Z88.3 Allergy status to other anti-infective agents; Z88.8 Allergy status to other drugs, medicaments and biological substances; Z91.041 Radiographic dye allergy status; Z82.49 Family history of ischemic heart disease and other diseases of the circulatory system
CPT/HCPCS: 93005; 85025; 80048; 36415; 85610; 85730; 71046; 93454; 36222; U0003; J1200; J2250; J3010; J7040; J1644; J2930

== ENCOUNTER 2021-05-07 11:12 | Emergency (ER) | payer OTHER ==
[2021-05-07 14:06] LABS: Urine Blood Negative (Negative); Urine Glucose Negative (Negative); Urine Protein Negative (Negative); Urine Specific Gravity 1.015 (1.005-1.030)
[2021-05-07 14:09] LABS: Absolute Lymphocytes (CBC) 2.6 K/uL (0.7-4.9); Basophils % 0.4 % (0-1.3); Hematocrit 33.9 % (36.0-45.0); Lymphocytes % 21.5 % (15.3-44.8); MPV 8.8 fL (7.6-11.3); RBC Red Blood Cell Count 3.63 M/uL (3.86-4.86)
[2021-05-07 14:11] LABS: Protime INR 0.94
--- NOTE | 2021-05-07 14:19 | RAD REPORT ---
EXAM DESCRIPTION: RAD - Chest Single View - 05/07/2021 2:09 pm CLINICAL HISTORY: recent stent placement Chest pain. COMPARISON: Chest Pa And Lat (2 Views) dated 04/23/2021; Chest Single View dated 04/10/2019; Chest Pa And Lat (2 Views) dated 09/27/2018 FINDINGS: Portable technique limits examination quality. The lungs are grossly clear. The heart is normal in size. No displaced fractures. IMPRESSION: No acute intrathoracic process suspected.
[2021-05-07 14:46] LABS: Albumin 3.7 g/dL (3.4-5.0); Bilirubin Direct 0.1 mg/dL (0-0.2); Bilirubin Total 0.4 mg/dL (0.2-1.0); Potassium 4.1 mmol/L (3.5-5.1); Protein, Total 6.9 g/dL (6.4-8.2)
[2021-05-07 14:48] LABS: Troponin (Emerg Dept Use Only) 1.04 ng/mL (0.0-0.045)
[2021-05-07] MEDS ORDERED: PANTOPRAZOLE 40 MG INJ ONE ×2 (14:50→14:55)
[2021-05-07] MEDS ORDERED: NA CHLORIDE 0.9% 250 ML ONE (14:55)
[2021-05-07 15:07] LABS: Blood Morphology Comment NOT SEEN (NOT SEEN); Platelet Estimate ADEQ; White Blood Cell Scan OK (OK)
[2021-05-07] MEDS ORDERED: NA CHLORIDE 0.9% 500 ML ONE (16:23)
--- NOTE | 2021-05-07 16:25 | ER ---
Nurse's Notes [facility] Name: Marla Campos Age: 75 yrs Sex: Female : 1945 Arrival Date: 05/07/2021 Time: 11:17 Bed 5 Private MD: Diagnosis: GI Bleed/ Gastrointestinal hemorrhage, unspecified;Weakness Presentation: 05/07 11:47 Chief complaint: Patient states: Sent by Dr. Killian for further evaluation and ss treatment of dark stools. Pt recently had angioplasty and began taking her Plavix yesterday. Pt reports black stools x 2 today. Coronavirus screen: Client denies travel out of the [place] in the last 14 days. Ebola Screen: Patient denies exposure to infectious person. Patient denies travel to an Ebola-affected area in the 21 days before illness onset. Initial Sepsis Screen: Does the patient meet any 2 criteria? No. Patient's initial sepsis screen is negative. Does the patient have a suspected source of infection? No. Patient's initial sepsis screen is negative. Risk Assessment: Do you want to hurt yourself or someone else? Patient reports no desire to harm self or others. Onset of symptoms was May 07, 2021. 11:47 Method Of Arrival: Wheelchair ss 11:47 Acuity: DANNY 3 ss Historical: - Allergies: 11:48 Biaxin; ss 11:48 Breo Ellipta; ss 11:48 CITRIC ACID; ss 11:48 Clotrimazole-Betamethasone; ss 11:48 Demerol; ss 11:48 Doxycycline; ss 11:48 Florinef Acetate; ss 11:48 GABAPENTIN; ss 11:48 Iodinated Contrast Media - IV Dye; ss 11:48 Lyrica; ss 11:48 PENICILLINS; ss 11:48 Periostat; ss 11:48 Prevacid; ss 11:48 QUINOLONES; ss 11:48 relafen; ss 11:48 Sulfa (Sulfonamide Antibiotics); ss 11:48 Vioxx; ss - PMHx: 11:48 Asthma; fluid retention; ss - PSHx: 11:48 angnioplasty; ss - Immunization history:: Adult Immunizations up to date, Client reports receiving the 2nd dose of the Covid vaccine. - Social history:: Smoking status: Patient denies any tobacco usage or history of. Screenin:28 Abuse screen: Denies threats or abuse. Denies injuries from another. Nutritional jw6 screening: No deficits noted. Tuberculosis screening: No symptoms or risk factors identified. Fall Risk IV access (20 points). Gait- Weak (10 pts.). Assessment: 13:28 General: Appears in no apparent distress. well groomed, Behavior is calm, cooperative. jw6 Pain: Denies pain. Neuro: No deficits noted. Cardiovascular: No deficits noted. Cardiovascular: Parent/caregiver reports patient has had heart cath and 3 stents placed in last week. Respiratory: No deficits noted. GI: Reports bloody stool, black tarry stools x 1 day. : No deficits noted. EENT: No deficits noted. Derm: No deficits noted. Musculoskeletal: No deficits noted. Vital Signs: 11:47 BP 148 / 57; Pulse 71; Resp 16; Temp 97.7(TE); Pulse Ox 100% on R/A; ss 11:48 Weight 65.32 kg; Height 5 ft. 5 in. (165.10 cm); Pain 0/10; ss 13:48 BP 129 / 79; Pulse 71; Resp 18; Pulse Ox 100% on R/A; jw6 17:25 BP 128 / 76; Pulse 70; Resp 18; Pulse Ox 100% on R/A; jw6 11:48 Body Mass Index 23.96 (65.32 kg, 165.10 cm) ss ED Course: 11:17 Patient arrived in ED. ds1 11:48 Triage completed. ss 11:48 Arm band placed on right wrist. ss 13:26 Naveed Blackmon PA is [facility]. cp 13:26 Naveed Palacios MD is Attending Physician. cp 13:28 Patient has correct armband on for positive identification. Placed in gown. Bed in low jw6 position. Call light in reach. Side rails up X 1. 13:36 Kassy Dejesus is Primary Nurse. jw6 13:41 Inserted saline lock: 22 gauge in left antecubital area, using aseptic technique. jw6 13:46 EKG done, by ED staff, reviewed by Naveed Palacios MD. mt 14:09 XRAY Chest (1 view) In Process Unspecified. EDMS 15:25 called and left message on Dr. Lion's cell phone to call Naveed Lemus for patient eb consultation. 16:10 initiated a transfer with Marya from the [facility]. eb 16:21 Abdomen In Process Unspecified. EDMS 16:37 initiated a transfer with Wen from the [facility] Transfer Center/. eb 16:44 connected the ED doctor almond blancher hand for [facility] with Naveed Lemus for patient eb transfer consultation. 16:46 administrative approval given by Wen Beard/ patient has been accepted to [facility] ED/ Dr. Kris Carrizales has accepted the patient in transfer. report to be called to [phone]. 17:23 Report given to LEONARDA Gr at [facility] ED. jw6 17:24 No provider procedures requiring assistance completed. Patient transferred, IV remains jw6 in place. 17:26 COVID-19 (Coronavirus) Document "Date of Onset" if Symptomatic Sent. jw6 Administered Medications: 14:28 Drug: ProTONIX (pantoprazole) 40 mg Route: IVP; Site: left antecubital; jw6 14:45 Follow up: Response: No adverse reaction jw6 14:40 Drug: ProTONIX (pantoprazole) 8 mg/hr Route: IV; Rate: 25 ml/hr; Site: left antecubital;jw6 16:04 Drug: NS 0.9% 500 ml Route: IV; Rate: 500 ml/hr; Site: left antecubital; jw6 Outcome: 16:25 ER care complete, transfer ordered by . belinda 17:24 Transferred by ground EMS to other acute care facility: [facility] ER. jw6 17:24 Condition: stable 17:24 Instructed on the need for transfer. 18:17 Patient left the ED. jw6 Signatures: Dispatcher [employer] EDMS Luz Boston ds1 Akanksha Ramirez RN RN ss Page, Corey, PA PA cp Thompson, Ingrid Esparza mt, Jessica jw6 Corrections: (The following items were deleted from the chart) 16:54 16:39 CORONAVIRUS drawn and sent. jw6 EDMS
--- NOTE | 2021-05-07 16:26 | EDPHYS ---
Physician Documentation [facility] Name: Marla Campos Age: 75 yrs Sex: Female : 1945 Arrival Date: 05/07/2021 Time: 11:17 Bed 5 Private MD: ED Physician Naveed Palacios HPI: 05/07 11:52 This 75 yrs old Female presents to ER via Wheelchair with complaints of cp Black/Tarry Stools. 11:53 The patient presents to the emergency department with rectal bleeding, melena, 2 times cp since symptom onset. Onset: The symptoms/episode began/occurred this morning. Abdominal pain: none is appreciated. Associated signs and symptoms: Pertinent positives: general weakness. Historical: - Allergies: 11:48 Biaxin; ss 11:48 Breo Ellipta; ss 11:48 CITRIC ACID; ss 11:48 Clotrimazole-Betamethasone; ss 11:48 Demerol; ss 11:48 Doxycycline; ss 11:48 Florinef Acetate; ss 11:48 GABAPENTIN; ss 11:48 Iodinated Contrast Media - IV Dye; ss 11:48 Lyrica; ss 11:48 PENICILLINS; ss 11:48 Periostat; ss 11:48 Prevacid; ss 11:48 QUINOLONES; ss 11:48 relafen; ss 11:48 Sulfa (Sulfonamide Antibiotics); ss 11:48 Vioxx; ss - PMHx: 11:48 Asthma; fluid retention; ss - PSHx: 11:48 angnioplasty; ss - Immunization history:: Adult Immunizations up to date, Client reports receiving the 2nd dose of the Covid vaccine. - Social history:: Smoking status: Patient denies any tobacco usage or history of. ROS: 11:59 Eyes: Negative for injury, pain, redness, and discharge. cp 11:59 Constitutional: Negative for body aches, chills, fever, poor PO intake. 11:59 Cardiovascular: Negative for chest pain. 11:59 Respiratory: Negative for cough, shortness of breath, wheezing. 11:59 Abdomen/GI: Positive for nausea, melena, Negative for abdominal pain, vomiting, diarrhea, constipation. 11:59 Neuro: Positive for general weakness, Negative for altered mental status, headache, syncope. Exam: 12:00 Head/Face: Normocephalic, atraumatic. cp 12:00 Constitutional: The patient appears in no acute distress, alert, awake, comfortable, non-toxic, well developed, well nourished. 12:00 Eyes: Periorbital structures: appear normal, Conjunctiva: normal, no exudate, no injection, Lids and lashes: appear normal, bilaterally. 12:00 ENT: External ear(s): are unremarkable, Nose: is normal, Mouth: Lips: moist, Oral mucosa: moist, Posterior pharynx: Airway: no evidence of obstruction, patent. 12:00 Chest/axilla: Inspection: normal, Palpation: is normal, no crepitus, no tenderness. 12:00 Cardiovascular: Rate: normal, Rhythm: regular, Edema: is not appreciated, JVD: is not appreciated. 12:00 Respiratory: the patient does not display signs of respiratory distress, Respirations: normal, no use of accessory muscles, no retractions, labored breathing, is not present, Breath sounds: are clear throughout, no decreased breath sounds. 12:00 Abdomen/GI: Inspection: abdomen appears normal, Bowel sounds: active, all quadrants, Palpation: abdomen is soft and non-tender, in all quadrants. 12:00 Back: pain, is absent, ROM is normal. 12:45 Abdomen/GI: Rectal exam: Stool: guaiac positive, black. cp 13:50 ECG was reviewed by the Attending Physician. Vital Signs: 11:47 BP 148 / 57; Pulse 71; Resp 16; Temp 97.7(TE); Pulse Ox 100% on R/A; ss 11:48 Weight 65.32 kg; Height 5 ft. 5 in. (165.10 cm); Pain 0/10; ss 13:48 BP 129 / 79; Pulse 71; Resp 18; Pulse Ox 100% on R/A; jw6 17:25 BP 128 / 76; Pulse 70; Resp 18; Pulse Ox 100% on R/A; jw6 11:48 Body Mass Index 23.96 (65.32 kg, 165.10 cm) ss MDM: 13:29 Patient medically screened. cp 15:00 Differential diagnosis: gastritis, diverticulitis, hemorrhoids. cp 15:20 Data reviewed: vital signs, nurses notes, lab test result(s), EKG, radiologic studies, cp plain films. 15:53 Physician consultation: Cesar Elliott MD was called at 15:53, left message on voicemail. 16:47 ED course: Vital signs stable. Consult with Dr. Carrizales, ER physician at [facility] in [facility], will accept a ER to ER transfer. 05/07 13:39 Order name: Basic Metabolic Panel; Complete Time: 15:16 ss 05/07 15:16 Interpretation: Normal except: BUN 19; GFR 57. 05/07 13:39 Order name: CBC with Diff; Complete Time: 15:16 ss 05/07 15:17 Interpretation: Normal except: WBC 12.00; RBC 3.63; HGB 11.5; HCT 33.9; PLT 136; NEUT A cp 8.2. 05/07 13:39 Order name: LFT's; Complete Time: 15:16 ss 05/07 13:39 Order name: Magnesium; Complete Time: 15:16 ss 05/07 13:39 Order name: NT PRO-BNP; Complete Time: 15:16 ss 05/07 15:17 Interpretation: Abnormal: NT PRO-BNP 674. 05/07 13:39 Order name: PT-INR; Complete Time: 15:16 ss 05/07 13:39 Order name: Troponin (emerg Dept Use Only); Complete Time: 15:16 ss 05/07 15:17 Interpretation: Abnormal: TROPED 1.04. 05/07 13:39 Order name: XRAY Chest (1 view); Complete Time: 15:16 ss 05/07 14:05 Order name: Urine Dipstick-Ancillary; Complete Time: 15:16 EDMS 05/07 15:08 Order name: CBC Smear Scan; Complete Time: 15:16 EDMS 05/07 16:02 Order name: COVID-19 (Coronavirus) Document "Date of Onset" if Symptomatic 05/07 16:54 Order name: SARS-COV-2 RT PCR EDMS 05/07 13:30 Order name: Orthostatics; Complete Time: 13:45 05/07 13:39 Order name: EKG; Complete Time: 13:40 ss 05/07 13:39 Order name: Cardiac monitoring; Complete Time: 13:44 ss 05/07 13:39 Order name: EKG - Nurse/Tech; Complete Time: 13:44 ss 05/07 13:39 Order name: IV Saline Lock; Complete Time: 13:43 ss 05/07 13:39 Order name: Labs collected and sent; Complete Time: 13:43 ss 05/07 13:39 Order name: O2 Per Protocol; Complete Time: 13:43 ss 05/07 13:39 Order name: O2 Sat Monitoring; Complete Time: 13:43 ss 05/07 16:13 Order name: Abdomen ; Complete Time: 16:45 EDMS EC:50 Rate is 72 beats/min. Rhythm is regular. NC interval is normal. QRS interval is normal. cp QT interval is normal. T waves are Inverted in lead aVR. Interpreted by me. Reviewed by me. Administered Medications: 14:28 Drug: ProTONIX (pantoprazole) 40 mg Route: IVP; Site: left antecubital; jw6 14:45 Follow up: Response: No adverse reaction jw6 14:40 Drug: ProTONIX (pantoprazole) 8 mg/hr Route: IV; Rate: 25 ml/hr; Site: left antecubital;jw6 16:04 Drug: NS 0.9% 500 ml Route: IV; Rate: 500 ml/hr; Site: left antecubital; jw6 Disposition Summary: 05/07/21 16:25 Transfer Ordered Reason: Higher level of care cp Condition: Stable cp Problem: new cp Symptoms: have improved cp Transfer Location: Other Acute Care Facility(05/07/21 16:46) cp Accepting Physician: DR Carrizales(05/07/21 18:17) jw6 Diagnosis - GI Bleed/ Gastrointestinal hemorrhage, unspecified cp - Weakness cp Forms: - Medication Reconciliation Form cp - SBAR form cp Addendum: 05/10/2021 10:25 Co-signature as Attending Physician, Naveed Palacios MD I agree with the assessment and c khoury plan of care. Signatures: Dispatcher [employer] Naveed Yu MD MD cha Smirch, Shelby, RN RN Naveed Levine PA PA Kassy Purcell jw6 Corrections: (The following items were deleted from the chart) 05/07 16:13 15:55 Abdomen Pelvis W Con+CT.RAD.BRZ ordered. EDMS EDMS 16:46 16:25 DR trevino cp 16:46 16:25 [facility] cp cp 16:54 16:02 CORONAVIRUS ordered. EDMS EDMS 18:17 16:46 DR Adamu cp jw6
--- NOTE | 2021-05-07 16:30 | RAD REPORT ---
EXAM DESCRIPTION: CT - Abdomen Pelvis Wo Contrast - 05/07/2021 4:21 pm CLINICAL HISTORY: Abdominal pain. ABD PAIN COMPARISON: No comparisons TECHNIQUE: CT imaging of the abdomen and pelvis was performed without contrast. Solid organ, bowel a nd vascular assessment is limited due to lack of IV and oral contrast. All CT scans are performed using dose optimization technique as appropriate and may include automated exposure control or mA/KV adjustment according to patient size. FINDINGS: The lower lung maurer are clear.Cholecystectomy clips. Small hiatal hernia. The liver, spleen, pancreas, adrenal glands and kidneys are within normal limits for a limited non-co ntrast examination. No bowel obstruction, free air, free fluid or abscess. Moderate stool in the rectosigmoid colon. Appe ndectomy. Pessary device present. Aortoiliac atherosclerosis. The osseous structures are within normal limits. IMPRESSION: No acute intra-abdominal or pelvic findings. A limited non-contrast examination was performed as detailed.
[2021-05-07 18:23] VITALS: TEMP 97.7; O2SAT 100
[2021-05-07 18:27] VITALS: BP 128/76
== END 2021-05-07 18:17 ==
LOC: ER 11:12
DX: K92.2 Gastrointestinal hemorrhage, unspecified (principal); Z20.822 Contact with and (suspected) exposure to COVID-19; Z88.1 Allergy status to other antibiotic agents; Z88.2 Allergy status to sulfonamides; Z88.5 Allergy status to narcotic agent; Z88.6 Allergy status to analgesic agent; Z88.8 Allergy status to other drugs, medicaments and biological substances
CPT/HCPCS: 93005; 85025; 80048; 36415; 83735; 85610; 80076; 81003; 84484; 83880; 74176; 71045; 96374; 99285; U0003; C9113 ×2; J7050; J7040

== ENCOUNTER 2021-07-28 14:00 | Emergency (ER) | payer OTHER ==
--- OUTSIDE RECORDS SUMMARY | 2021-07-28 14:06 | XMS REPORT | Continuity of Care Document ---
:1945 Author Organization [facility] t Address [address] [place] [address] Care Team Providers Name Role Phone Sandeep TRAN Primary Care Physician Josué Attending Clinician Unavailable Alicja Bishop Attending Clinician Unavailable Sandeep TRAN Attending Clinician Devon TRAN Attending Clinician HANNA Attending Clinician Unavailable Physician, Primary or Family Admitting Clinician UnavailAlicja Deshpande Admitting Clinician Unavailable AJAY BOOKER Admitting Clinician Unavailable Payers Payer Name Policy Type Policy Number Effective Date Expiration Date S ource Problems Condition Condition Condition Status Onset Resolution Last Treating Co mments Source Name Details Category Date Date Treatment Clinician Date Cerebrovas Problem Active 2021-02-14 M emoria cular 01:02:39 l accident Andrew (disorder) Cerebrovas cular accident (disorder) Active Problem 02/14/2021 [facility] Dizziness Problem Active 2021-02-14 Me moria (finding) 01:02:39 l Andrew Dizziness (finding) Active Problem 02/14/2021 [facility] Hyperlipid Problem Active 2021-02-14 M emoria emia 01:02:39 l (disorder) Manny n Hyperlipid emia (disorder) Active Problem 02/14/2021 [facility] Right Problem Active 2021-02-14 Memor ia carotid 01:02:39 l artery Right [facility] occlusion carotid (disorder) artery occlusion (disorder) Active Problem 02/14/2021 [facility] Syncope Problem Active 2021-02-14 Aman omaira (disorder) 01:02:39 l Syncope Andrew (disorder) Active Problem 02/14/2021 [facility] Allergies, Adverse Reactions, Alerts Allergy Allergy Status Severity Reaction(s) Onset Inactive Treating Comm ents Source Name Type Date Date Clinician Penicill DA Active SV INJECTION 2020-07 [facility] ins SITE 0-22 Clear SWELLING 00:00: [facility] Quinolon DA Active MO RASH, FACIAL 2020-07 HC A es SWELLING 0-22 Clear 00:00: [place] [facility] [place] FA Active MO VOMITING 2020-07 [facility] And 0-22 Clear Derivati 00:00: [place] [facility] iodine DA Active U UNKNOWN 2020-07 [facility] 0-22 Clear 00:00: [facility] doxycycl DA Active AL ABDOMINAL 2020-07 [facility] ine PAIN 0-22 Clear 00:00: [facility] sulfapyr DA Active MO EYE LID 2020-07 [facility] idine SWELLING 0-22 Clear 00:00: [facility] clotrima DA Active MO UTI, RASH 2020-07 [facility] zole 0-22 Clear 00:00: [facility] clarithr DA Active MO RASH, SORE 2020-07 [facility] omycin TONGUE 0-22 Clear 00:00: [facility] meperidi DA Active AL VOMITING 2020-07 [facility] ne 0-22 Clear 00:00: [facility] fludroco DA Active MO SEVERE RASH, 2020-07 HC A rtisone SWELLING OF 0-22 Lilian r EYES 00:00: [facility] rofecoxi DA Active MO EYE AND BODY 2020-07 HC A b SWELLING 0-22 Clear 00:00: [facility] pregabal DA Active AL WATERY EYES 2020-07 [facility] in 0-22 Clear 00:00: [facility] fluticas DA Active MO HARD TO 2020-07 [facility] one BREATH 0-22 Clear furoate 00:00: [facility] vilanter DA Active MO HARD TO 2020-07 [facility] ol BREATH 0-22 Clear 00:00: Wing 00 [facility] Penicill DA Active SV 2020-07 [facility] ins 0-22 Clear 00:00: Wing 00 [facility] Quinolon DA Active MO 2020-07 [facility] es 0-22 Clear 00:00: Wing 00 [facility] [place] FA Active MO 2020-07 [facility] And 0-22 Clear Derivati 00:00: Wing ves 00 [facility] iodine DA Active U 2020-07 H[facility] 0-22 Clear 00:00: Wing 00 [facility] doxycycl DA Active AL 2020-07 [facility] ine 0-22 Clear 00:00: [facility] sulfapyr DA Active MO 2020-07 [facility] idine 0-22 Clear 00:00: [facility] clotrima DA Active MO 2020-07 [facility] zole 0-22 Clear 00:00: Wing 00 [facility] clarithr DA Active MO 2020-07 [facility] omycin 0-22 Clear 00:00: Wing 00 [facility] meperidi DA Active AL 2020-07 H[facility] ne 0-22 Clear 00:00: Wing 00 [facility] fludroco DA Active MO 2020-07 H[facility] rtisone 0-22 Clear 00:00: [facility] rofecoxi DA Active MO 2020-07 H[facility] b 0-22 Clear 00:00: Wing 00 [facility] pregabal DA Active AL 2020-07 [facility] in 0-22 Clear 00:00: Wing 00 [facility] fluticas DA Active MO 2020-07 [facility] one 0-22 Clear furoate 00:00: Wing 00 [facility] vilanter DA Active MO 2020-07 H[facility] ol 0-22 Clear 00:00: Wing 00 [facility] PREICID DA Active MO ABD PAIN, 2020-07 [facility] LIGHT 0-22 Clear HEADEDNESS, 00:00: Wing NAUSEA 00 [facility] RALAFEN DA Active AL ABDOMINAL 2020-07 [facility] PAIN 0-22 Clear 00:00: Wing 00 [facility] Penicill DA Active SV INJECTION 2020-07 [facility] ins SITE 0-18 Clear SWELLING 00:00: Wing 00 [facility] iodine DA Active U UNKNOWN 2020-07 H[facility] 0-18 Clear 00:00: Wing 00 [facility] sulfapyr DA Active MO EYE LID 2020-07 [facility] idine SWELLING 0-18 Clear 00:00: Wing [facility] Penicill DA Active SV 2020-07 [facility] ins 0-18 Clear 00:00: Iwng 00 [facility] iodine DA Active U 2020-07 H[facility] 0-18 Clear 00:00: Wing 00 [facility] sulfapyr DA Active MO 2020-07 [facility] idine 0-18 Clear 00:00: Wing 00 [facility] Prevacid Propensi Active 2020-0 [facility] ty to 1-30 College adverse 00:00: of reaction 00 Medicin s to e drug Nabumeto Propensi Active 2020-0 [place] ne ty to 30 College adverse 00:00: of reaction 00 Medicin s to e drug Sulfur Propensi Active 2020-0 [place] ty to 30 College adverse 00:00: of reaction 00 Medicin s to e drug Citric Propensi Active 2020-0 [facility] Acid ty to 30 College Monohydr adverse 00:00: of ate reaction 00 Medicin s to e drug Demerol Propensi Active 2020-0 [place] ty to 30 College adverse 00:00: of reaction 00 Medicin s to e drug FLUTICAS Allergy Active High Sob [facility] ONE 04-10 [facility] - FUROATE- 00:00: Medical VILANTER 00 Center OL ROFECOXI Allergy Active Swelling [facility] - 00:[facility]: Medical 00 Center CLARITHR Allergy Active Low Rash 2018- [facility] OMYCIN 25 [facility] - 00:00: Medical 00 Center CLOTRIMA Allergy Active Low Rash 2018- [facility] ZOLE 25 [facility] - 00:00: Medical 00 Center FLUDROCO Allergy Active Low Swelling 2018- [facility] RTISONE 04-10 [facility] - 00:[facility]: Medical 00 Center PENICILL Allergy Active Low 2018- [facility] INS 04-10 [facility] - 00:00: Medical 00 Center QUINOLON Allergy Active Low Swelling 2018- [facility] ES [facility] - 00:[facility]: Medical 00 Center Clarithr Propensi Active Rash 2018- [facility] omycin ty to 04-10 [facility] - adverse 00:00: Medical reaction 00 Center s Fluticas Propensi Active Shortness Of [facility] one ty to Breath 04-10 [facility] - Furoate- adverse 00:00: Medical Vilanter reaction 00 Center ol s [place] Propensi Active Nausea And [facility] And ty to Vomiting 04-10 [facility] - Derivati adverse 00:00: Medical ves reaction 00 Center s SULFA Allergy Active Med Swelling [facility] (SULFONA 04-10 [facility] - MIDE 00:00: Medical ANTIBIOT 00 Center ICS) Clotrima Propensi Active Rash uti [facility] zole ty to 04-10 [facility] - adverse 00:00: Medical reaction 00 Center s Meperidi Propensi Active Nausea And [facility] ne ty to Vomiting 04-10 [facility] - adverse 00:00: Medical reaction 00 Center s Doxycycl Propensi Active Nausea Only, And red [facility] ine ty to Swelling 04-10 bumps on [facility] - adverse 00:00: tongue Medical reaction 00 Center s Fludroco Drug Active Swelling, [facility] rtisone Allergy Rash 04-10 [facility] - 00:[facility]: Medical 00 Center Gabapent Propensi Active Other (See Dizzy, [facility] ty to Comments) 04-10 nausea, [facility] - adverse 00:00: slurred Medical reaction 00 speech, Center s constipat ion Iodine Propensi Active [facility] And ty to 04-10 [facility] - Iodide adverse 00:00: Medical Containi reaction 00 Center ng s Products Pregabal Propensi Active Other (See Watery [facility] in ty to Comments) 04-10 eyes and [facility] - adverse 00:00: warm Medical reaction 00 feeling Center s stomach Penicill Propensi Active Mild Arm and [facility] ins ty to 04-10 shoulder [facility] - adverse 00:00: bruise Medical reaction 00 Center s Doxycycl Propensi Active Nausea Only Abdomina l [facility] ine ty to 04-10 pain [facility] - Hyclate adverse 00:00: Medical reaction 00 Center s Quinolon Propensi Active Swelling, [facility] es ty to Rash 04-10 [facility] - adverse 00:00: Medical reaction 00 Center s CITRUS Allergy Active N\T\V [facility] AND 04-10 [facility] - DERIVATI 00:00: Medical VES 00 Center Sulfa Drug Active Swelling, [facility] (Sulfona Allergy Rash 04-10 [facility] - mide 00:00: Medical Antibiot 00 Center ics) Rofecoxi Propensi Active Swelling [facility] b ty to 04-10 [facility] - adverse 00:00: Medical reaction 00 Center s MEPERIDI Allergy Active N\T\V [facility] NE 04-10 [facility] - 00:00: Medical 00 Center DOXYCYCL Allergy Active Nausea [facility] INE 04-10 [facility] - 00:00: Medical 00 Center GABAPENT Allergy Active Other [facility] IN 04-10 [facility] - 00:00: Medical 00 Center IODINE Allergy Active [facility] AND 04-10 [facility] - IODIDE 00:00: Medical CONTAINI 00 Center NG PRODUCTS PREGABAL Allergy Active Other [facility] IN 04-10 [facility] - 00:00: Medical 00 Center DOXYCYCL Allergy Active Nausea [facility] INE 04-10 [facility] - HYCLATE 00:00: Medical 00 Center Fluticas Propensi Active Shortness Of [place] one ty to Breath 04-10 College Furoate adverse 00:00: of reaction 00 Medicin s to e drug Gabapent Propensi Active Dizzy, Chele in ty to 04-10 nausea, College adverse 00:00: slurred of reaction 00 speech, Medicin s to constipat e drug ion Iodine Propensi Active [place] ty to 04-10 College adverse 00:00: of reaction 00 Medicin s to e drug Penicill Propensi Active Mild Arm and [facility] ins ty to 04-10 shoulder College adverse 00:00: bruise of reaction 00 Medicin s to e drug Pregabal Propensi Active Watery Chele in ty to 04-10 eyes and College adverse 00:00: warm of reaction 00 feeling Medicin s to stomach e drug Quinolon Propensi Active Swelling [facility] or es ty to 04-10 [place] adverse 00:00: of reaction 00 Medicin s to e drug Rofecoxi Propensi Active Swelling [facility] or b ty to 04-10 College adverse 00:00: of reaction 00 Medicin s to e drug Sulfa Propensi Active Swelling [place] Antibiot ty to 04-10 [place] ics adverse 00:00: of reaction 00 Medicin s to e drug Bioflavo Propensi Active Nausea And Ba ylor noids ty to Vomiting 04-10 adverse 00:00: of reaction 00 Medicin s to e drug Clarithr Propensi Active Rash [facility] omycin ty to 04-10 [place] adverse 00:00: of reaction 00 Medicin s to e drug Clotrima Propensi Active Rash uti Chele zole ty to 04-10 College adverse 00:00: of reaction 00 Medicin s to e drug Doxycycl Propensi Active Swelling And red [place] pedro ine ty to 04-10 bumps on College adverse 00:00: tongue of reaction 00 Medicin s to e drug Doxycycl Propensi Active Nausea Only Abdomina l [place] ine ty to 04-10 pain [place] Hyclate adverse 00:00: of reaction 00 Medicin s to e drug Fludroco Propensi Active Swelling [facility] or rtisone ty to 04-10 [place] adverse 00:00: of reaction 00 Medicin s to e drug Sulfur Sulfur Active Memoria todd Morales iodine iodine Active Memoria todd Morales penicill penicill Active Memori a in in todd Morales Social History Social Habit Start Date Stop Date Quantity Comments Source History of tobacco Current smoker [facility] of use Medicine History SDAZ [facility] - Alcohol Std Drinks Medica l Center History SDAZ [facility] - Alcohol Binge Medical Ila ter History SDAZ [facility] - Alcohol Comment Medical C enter Social History 2020-10-15 2020-10-15 [facility] howard 17:19:17 17:19:17 Alcohol intake 2019-04-15 2019-04-[address] [facility] - 00:00:00 00:00:00 non-drinker of Medical Ce nter alcohol (finding) Tobacco use and 2019-04-10 2019-04-[address] Yumiko kes - exposure 00:00:00 00:00:00 Medical Center History SDOH 2019-04-10 2019-04-[address] [facility] - Alcohol Frequency 00:00:00 00:00:00 Medical Center Sex [birth year] [facility] 00:[facility] 00:[facility]:00 Hospital Smoking Status Start Date Stop Date Source Unknown if ever smoked [facility] Former smoker 2019-08-15 00:00:00 2019-08-15 00:00:00 [facility] Never smoker [facility] Medications Ordered Filled Start Stop Current Ordering Indication Dosage Frequency Signature Comments Components Source Medication Medication Date Date Medication? Clinician (SIG) Name Name pantoprazol Yes 0 Memori a e 40 mg 02-11 Refill(s) l oral 16:06: [facility] enteric 00 coated tablet Aspirin Yes 81 mg, PO, Aman omaira 10-15 Daily, 0 l 16:45: Refill(s) [facility] 00 Promethazin Yes 5 mL, PO, M emoria e DM oral 10-15 Q6H, PRN l syrup 16:44: for cough, Manny n 00 # 120 mL, 0 Refill(s) Ventolin Yes 2 puff, Memori a HFA 10-15 INHALATION l 16:44: , QID, 0 [facility] 00 Refill(s) Albuterol Yes 2.5 mg = 3 Me moria 0.83 MG/ML 4 mL, NEB, l Inhalant 16:44: Q6H, 0 Andrew Solution 00 Refill(s) Promethazin Yes 0 Memori a e 10-15 Refill(s) l 16:43: [facility] 00 Premarin Yes VAG, 0 Memoria Vaginal 10-15 Refill(s) l 16:42: [facility] atorvastati Yes 40 mg, PO, Memoria n - Bedtime, 0 l 16:41: Refill(s) [facility] levocetiriz Yes See Memori a ine 10-15 Instructio l 16:40: ns, [facility] 00 1-2caps TID, 0 Refill(s) Metolazone Yes 5 mg, PO, Me moria 4-01 Q-M and l 16:39: Th, # 15 Andrew 00 tab, 0 Refill(s) Spironolact 0 Yes 50 mg, PO, Memoria one 4-01 Daily, # l 16:38: 60 tab, 0 Andrew 00 Refill(s) glucosamine 2019-0 Yes 3{tbl} Take 3 Ba [facility] -chondroiti 1-30 Tabs by [facility] surinder n 500-400 20:35: mouth. of MG tablet 19 Medicin e Cholecalcif 2020-0 Yes 25mg Take 25 mg Chele lisset (D3 1-30 by mouth. Raine corado VITAMIN OR) 20:34: of 48 Medicin e Docusate 2020-0 Yes Take by [facility] r Sodium 100 1-30 mouth. [place] MG TABS 20:33: of 54 Medicin e MISC 2019-0 Yes Take by [place] NATURAL 1-30 mouth. [place] PRODUCTS OR 20:33: of 54 Medicin e albuterol 2019-0 Yes 2{puff} Inhale 2 B a[facility] (VENTOLIN 1-30 Puffs by Raine corado HFA) 108 20:31: mouth as of (90 base) 45 needed for Medi kennedy mcg/act Wheezing. e inhaler ALBUTEROL 2019-0 Yes Inhale by ylor SULFATE 1-30 mouth. [place] INNOSE 20:31: 0.083 NEB of 45 Nephron - Medicin use 1 vial e in nebulizer 4 times a day as needed promethazin 2019-0 Yes 6.25mg Take 6.25 [place] e 1-30 mg by [place] (PHENERGAN) 20:27: mouth as of 6.25 MG/5ML 52 needed. Medic in syrup e potassium 2020-0 Yes 20meq Take 20 [facility] or chloride 1-30 mEq by [place] (KDUR) 10 20:25: mouth 3 of MEQ tablet 17 times Medicin daily. e Levocetiriz 2020-0 Yes 5mg Take 5 mg B aylor ine 1-30 by mouth. [place] Dihydrochlo 20:25: of ride 5 MG 17 Medicin TABS e MAGNESIUM 2020-0 Yes 240mg Take 240 [place] pedro OR 1-30 mg by [place] 20:25: mouth two of 17 times Medicin daily. e metolazone 2020-0 Yes 5mg Take 5 mg Ba [facility] (ZAROXOLYN) 1-30 by mouth Donte ege 5 MG tablet 20:22: every of 11 Monday and Medicin . e atorvastati Yes 40mg Take 1 Tab [place] n (LIPITOR) 1-30 by mouth Donte ege 40 MG 00:00: daily. of tablet 00 Medicin e PREMARIN 2018-[address] 0.65 [facility] vaginal 2-24 mg College cream 00:00: vaginally of 00 2 times Medicin weekly. e spironolact 2018-07 Yes TAKE 1 [facility] or one 1-25 TABLET BY College (ALDACTONE) 00:00: MOUTH of 50 MG 00 EVERY DAY Medicin tablet e atorvastati 2018-07 Yes TAKE 1 [facility] or n (LIPITOR) 1-25 TABLET BY Col lege 20 MG 00:00: MOUTH of tablet 00 EVERY DAY Medicin e spironolact 2018-07 Yes 100mg QD Take [address] one 0-09 mg by [facility] - (ALDACTONE) 19:51: mouth Medic al 100 MG 48 daily. Center tablet metOLazone 2018-07 Yes 5mg QD Take [address] (ZAROXOLYN) 0-09 by mouth Luke s - 5 MG tablet 19:51: daily. Medi linnea 48 Center potassium 2018-07 Yes 10meq [id number] Take [address] chloride 0-09 [id number] mEq by Shoaib es - (KLOR-CON) 19:51: 3D mouth 3 Medi linnea 10 MEQ CR 48 (three) Center tablet times daily. levocetiriz 2018-07 Yes 5mg QD Take [address] ine (XYZAL) 0-09 by mouth Luke s - 5 MG tablet 19:51: every Medic al 48 evening. Center promethazin 2018-07 Yes 6.25mg Take 6.[address] e 0-09 mg by [facility] - (PHENERGAN) 19:51: mouth 4 Med ical 6.25 mg/5 48 (four) Center mL syrup times daily as needed for Nausea. ranitidine 2018-07 Yes 150mg Take [address] (ZANTAC) 0-09 mg by [facility] - 150 MG 19:51: mouth as Medical tablet 48 needed for Center Heartburn. magnesium 2018-07 Yes 150mg Take [address] gluconate 0-09 mg by [facility] - (MAGONATE) 19:51: mouth as Med ical 27.5 mg 48 needed Center magne- sium (leg (500 mg) cramps). tablet glucosamine 2018-07 Yes 3{tbl} Q.5D Take [address] -chondroiti 0-09 tablets by Yumiko carrion - n 500-400 19:51: mouth 2 Medic al mg tablet 48 (two) Center times daily. aspirin EC 2018-07- No 81mg Take 81 mg [facility] 81 MG TBEC 0-06 10-06 by mouth. Col lege 00:00: 04:59 of 00 :00 Medicin e Coenzyme 2018-07- No 100mg Take 100 [place] pedro Q-10 100 MG 0-05 10-05 mg by Colleg e CAPS 00:00: 04:59 mouth of 00 :00 daily. Medicin e Vital Signs Vital Name Observation Time Observation Value Comments Source Systolic blood 2019-08-15 19:54:00 128 mm[Hg] [facility] pressure Medicine Diastolic blood 2019-08-15 19:54:00 57 mm[Hg] [facility] pressure Medicine Heart rate 2019-08-15 19:54:00 67 /min [facility] Body height 2019-08-15 19:54:00 165.1 cm [facility] Body weight 2019-08-15 19:54:00 66.679 kg [facility] BMI 2019-08-15 19:54:00 24.46 kg/m2 [facility] Systolic (mm Hg) 2021-02-11 15:35:00 Aman rial [facility] Diastolic (mm Hg) 2021-02-11 15:35:00 [facility] orial [facility] Heart Rate 2021-02-11 15:35:00 [facility] Respitory Rate 2021-02-11 15:35:00 Memori al Andrew Height 2021-02-11 15:35:00 162.56 cm [facility] Weight 2021-02-11 15:35:00 [facility] BMI Calculated 2021-02-11 15:35:00 Memori al Andrew Systolic (mm Hg) 2020-11-12 15:12:00 Aman rial [facility] Diastolic (mm Hg) 2020-11-12 15:12:00 Mem orial Andrew Heart Rate 2020-11-12 15:12:00 [facility] Respitory Rate 2020-11-12 15:12:00 Memori al [facility] Weight 2020-11-12 15:12:00 [facility] Systolic (mm Hg) 2020-10-15 16:26:00 Aman omairal Andrew Diastolic (mm Hg) 2020-10-15 16:26:00 Mem orial Andrew Heart Rate 2020-10-15 16:26:00 [facility] Respitory Rate 2020-10-15 16:26:00 Memori al Andrew Height 2020-10-15 16:26:00 160.02 cm [facility] Weight 2020-10-15 16:26:00 [facility] BMI Calculated 2020-10-15 16:26:00 Memori al [facility] Procedures Procedure Date / Time Performing Clinician Source Performed [id number] 2021-05-09 00:00:00 [facility] CT HEART SCAN PLUS W 2021-03-03 15:31:21 [facility] PHYSICIAN ORDER US VASCULAR SCREENING 2021-03-03 15:13:36 [facility] HEART SCAN PLUS Hysterectomy [facility] Cholecystectomy [facility] Breast biopsy and related Memori al [facility] procedures Appendectomy [facility] Plan of Care Planned Activity Planned Date Details Comments Source Future Scheduled 2021-03-17 INFLUENZA VACCINE (#1) [facility] 00:00:00 [code = INFLUENZA Medical Ce nter VACCINE (#1)] Future Scheduled 2020-07-[address] [facility] - Test 00:00:00 (12+) [code = Medical Center DEPRESSION SCREENING (12+)] Future Scheduled 2020-07-17 FALLS RISK SCREENING [facility] - Test 00:00:00 [code = FALLS RISK Medical C enter SCREENING] Future Scheduled 2019-07-[address] [facility] - Test 00:00:00 WELLNESS (YEAR 2 or Medical Center FIRST YEAR if no IPPE) [code = MEDICARE ANNUAL WELLNESS (YEAR 2 or FIRST YEAR if no IPPE)] Future Scheduled 2010 PNEUMOCOCCAL 65+ YRS [facility] - Test 00:00:00 (1 of 1 - Medical Center [id number] PCV13) [code = PNEUMOCOCCAL 65+ YRS (1 of 1 - [id number] PCV13)] Future Scheduled 1995-12-29 SHINGLES VACCINES ([address] [facility] - Test 00:00:00 of 2) [code = SHINGLES Medic al Center VACCINES (1 of 2)] Future Scheduled 1964 DTAP/TDAP/TD VACCINES [facility] - Test 00:00:00 (1 - Tdap) [code = Medical C enter DTAP/TDAP/TD VACCINES (1 - Tdap)] Future Scheduled 1963-12-29 HEPATITIS C SCREENING [facility] Test 00:00:00 [code = HEPATITIS C Medical Center SCREENING] Future Scheduled 1957 COVID-19 VACCINE (1) [facility] - Test 00:00:00 [code = COVID-[address] VACCINE (1)] Future Scheduled [address] [facility] - Test 00:00:[address] [facility] colon (procedure) [code = 350368934] Future Scheduled COLON CANCER [facility] ege of Test SCREENING: COLONOSCOPY Medic ine [code = COLON CANCER SCREENING: COLONOSCOPY] Future Scheduled MAMMOGRAM ANNUAL [code B [facility] of Test = MAMMOGRAM ANNUAL] Medicine Future Scheduled TETANUS SHOT (ADULT) [facility] of Test [code = TETANUS SHOT Medicin e (ADULT)] Future Scheduled HEPATITIS C SCREENING Ba [facility] of Test [code = HEPATITIS C Medicine SCREENING] Future Scheduled FALL SCREEN [code = [facility] or College of Test FALL SCREEN] Medicine Future Scheduled OSTEOPOROSIS SCREENING B [facility] of Test [code = OSTEOPOROSIS Medicin e SCREENING] Future Scheduled PNEUMOVAX >=65 [facility] llege of Test (PPSV23) [code = Medicine PNEUMOVAX >=65 (PPSV23)] Future Scheduled PREVNAR >= 65 (PCV13) Ba or [place] of Test [code = PREVNAR >= 65 Medici ne (PCV13)] Future Scheduled FLU VACCINE > 6 MONTHS B [facility] of Test [code = FLU VACCINE > Medici ne 6 MONTHS] Future Scheduled MEDICARE IPPE (WELCOME B [facility] of Test TO MEDICARE) [code = Medicin e MEDICARE IPPE (WELCOME TO MEDICARE)] Future Scheduled COVID-19 [facility]INE ([facility]) [facility] [code = COVID-19 VACCINE (1)] Future Scheduled [facility] (procedure[facility] [code = 009714247] Future Scheduled [facility] SCREENING [code = BREAST CANCER SCREENING] Future Scheduled COLONOSCOPY [facility] [code = COLONOSCOPY SCREENING] Future Scheduled SHINGLES VACCINES (#1) [facility] [code = SHINGLES VACCINES (#1)] Future Scheduled 65+ [facility]CCAL [facility] Test VACCINE (1 of 1 - PPSV23) [code = 65+ PNEUMOCOCCAL VACCINE (1 of 1 - PPSV23)] Future Scheduled [facility]INE [facility] [code = INFLUENZA VACCINE] Encounters Start End Encounter Admission Attending Care Care Encounter Source Date/Time Date/Time Type Type Clinicians Facility Department ID 2021-08-04 Inpatient Josué, HCACL OUTD [id number] [facility] 09:30:00 [facility] 2021-08-02 Inpatient EL Josué, HCACL OUTD [id number] [facility] 11:00:00 [facility] 2021-05-05 Inpatient Josué, HCACL OUTD [id number] [facility] 12:30:00 Devon [address] [facility] 2021-05-03 Inpatient Josué, HCACL OUTD [id number] [facility] 10:30:00 Devon [address] [facility] 2021-05-14 2021-05-14 Outpatient MHIE MHIE [id number] Memoria 10:30:00 10:30:00 04 todd Morales 2021-05-07 2021-05-12 Inpatient EM Edna, HCACL MEDI.01 [id number] [facility] 22:34:00 14:15:00 Christopher [address] Cl [facility] 2021-05-07 2021-05-12 Inpatient EM Edna, HCACL MEDI.01 [id number] [facility] 22:34:00 14:15:00 Christopher 86 Cl [facility] 2021-05-05 2021-05-05 Outpatient EL Josué, HCACL OUTD [id number] [facility] 05:25:00 05:25:00 Devon 50 [facility] 2021-03-03 2021-03-03 [facility], [id number] [facility]i 09:20:50 23:59:00 Encounter Garth [id number] [id number] Hospit a .[id number] l .8 2021-03-03 2021-03-03 Hospital [facility], [id number] Methodi 09:15:00 09:19:00 Encounter Garth [id number] [id number] Hospit a .[id number] l .8 2021-03-03 2021-03-03 Travel 1.2.840.1 1.2.880.546 [id number] Methodi 00:00:00 00:00:[address] 3.430.2.7 0.2.7.3.698 Ho spita .3.190163 084.8 l .8 2021-02-11 2021-02-12 Outpatient nullFlavo MNA 64831 [id number] Memoria 15:15:00 04:59:59 r Neurology 03 l Andrés Morales 2021-02-08 2021-02-08 Travel 1.2.840.1 1.2.642.120 [id number] Methodi 00:00:00 00:00:[address] 3.430.2.7 0.2.7.3.698 Ho spita .3.813451 084.8 l .8 2021-02-03 2021-02-03 Transcribe [facility], 1.2.840.1 [id number] Methodi 00:00:00 00:00:00 Orders [place]arth [address]1.[address] 3.430.2.7 Hospit a .3.721664 l .8 2020-11-12 2020-11-13 Outpatient nullFlavo MNA 93360 [id number] Memoria 15:00:00 04:59:59 r Neurology 02 l [place] 2020-11-03 2020-11-04 Outpatient nullFlavo MNA 26625 50155 Memoria 18:00:00 04:59:59 r Neurology 01 l Andrés Morales 2020-10-15 2020-10-16 Outpatient nullFlavo MNA 43659 [id number] Memoria 16:30:00 04:59:59 r Neurology 00 l Andrés Morales 2019-08-15 2019-08-15 Office LOGAN Osorio 1.2.840.[id number] [place] [address] 13:47:41 15:50:19 Visit Michael AMBULATOR 350.1.13.21 [employer] 0.2.7.2.686 of [id number] [facility] 800 e Results Test Description Test Time Test Comments Results Result Comments Source CBC W/AUTO DIFF 2021-05-12 08:01:00 Test Item Value Reference Range Interpretation Comme nts WHITE BLOOD CELL (test code = WBC) 8.0 x10 3/uL 4.5-11.0 N RED BLOOD CELL (test code = RBC) 3.82 x10 6/uL 3.54-5.02 N HEMOGLOBIN (test code = HGB) 12.1 g/dL 11.0-15.0 N HEMATOCRIT (test code = HCT) 36.7 % 33.0-45.0 N MEAN CELL VOLUME (test code = MCV) 96.1 fL 81.0-99.0 N MEAN CELL HGB (test code = MCH) 31.7 pg 27.0-33.0 N MEAN CELL HGB CONCETRATION (test code = MCHC) 33.0 g/dL 33.0-37. 0 N RED CELL DISTRIBUTION WIDTH CV (test code = RDW) 13.2 % 11.5- 14.5 N RED CELL DISTRIBUTION WIDTH SD (test code = RDW-SD) 45.5 fL 37 .0-54.0 N PLATELET COUNT (test code = PLT) 163 x10 3/uL 150-400 N MEAN PLATELET VOLUME (test code = MPV) 10.8 fL 7.0-9.0 H NEUTROPHIL % (test code = NT%) 59.1 % 56.0-77.0 N IMMATURE GRANULOCYTE % (test code = IG%) 0.4 % 0.0-2.0 N LYMPHOCYTE % (test code = LY%) 23.8 % 14.0-32.0 N MONOCYTE % (test code = MO%) 8.1 % 4.8-9.0 N EOSINOPHIL % (test code = EO%) 7.7 % 0.3-3.7 H BASOPHIL % (test code = BA%) 0.9 % 0.0-2.0 N NUCLEATED RBC % (test code = NRBC%) 0.0 % 0-0 N NEUTROPHIL # (test code = NT#) 4.76 x10 3/uL 2.0-7.6 N IMMATURE GRANULOCYTE # (test code = IG#) 0.03 x10 3/uL 0.00-0.03 N LYMPHOCYTE # (test code = LY#) 1.91 x10 3/uL 1.0-3.8 N MONOCYTE # (test code = MO#) 0.65 x10 3/uL 0.1-0.8 N EOSINOPHIL # (test code = EO#) 0.62 x10 3/uL 0.0-0.2 H BASOPHIL # (test code = BA#) 0.07 x10 3/uL 0.0-0.2 N NUCLEATED RBC # (test code = NRBC#) 0.00 x10 3/uL 0.0-0.1 N MANUAL DIFF REQUIRED (test code = MDIFF) NO BASIC METABOLIC [id number] 07:50:00 Test Item Value Reference Range Interpretation Comments SODIUM (test code = NA) 139 mEq/L 134-147 N POTASSIUM (test code = 3.4 mEq/L 3.4-5.0 N K) CHLORIDE (test code = 103 mEq/L 100-108 N CL) CARBON DIOXIDE (test 28 mEq/l 21-33 N code = CO2) ANION GAP (test code = 12 0-20 N GAP) GLUCOSE (test code = 94 mg/dL 70-110 N GLU) BLOOD UREA NITROGEN 11 mg/dL 7-18 N (test code = BUN) GLOMERULAR FILTRATION 61.0 70-80 L Units of measure = RATE (test code = GFR) ml/mi n/1.73 m2 CREATININE (test code = 0.9 mg/dL 0.6-1.3 N CREAT) CALCIUM (test code = 9.5 mg/dL 8.0-10.5 N CA) [id number] 07:50:00 Test Item Value Reference Range Interpretation Comments MAGNESIUM (test code = MAG) 1.70 mg/dL 1.80-2.40 L BASIC METABOLIC [id number] 07:53:00 Test Item Value Reference Range Interpretation Comments SODIUM (test code = NA) 137 mEq/L 134-147 N POTASSIUM (test code = 3.6 mEq/L 3.4-5.0 N K) CHLORIDE (test code = 104 mEq/L 100-108 N CL) CARBON DIOXIDE (test 23 mEq/l 21-33 N code = CO2) ANION GAP (test code = 14 0-20 N GAP) GLUCOSE (test code = 100 mg/dL 70-110 N GLU) BLOOD UREA NITROGEN 11 mg/dL 7-18 N (test code = BUN) GLOMERULAR FILTRATION 61.0 70-80 L Units of measure = RATE (test code = GFR) ml/mi n/1.73 m2 CREATININE (test code = 0.9 mg/dL 0.6-1.3 N CREAT) CALCIUM (test code = 8.6 mg/dL 8.0-10.5 N CA) [id number] 07:53:00 Test Item Value Reference Range Interpretation Comments MAGNESIUM (test code = MAG) 1.68 mg/dL 1.80-2.40 L CBC W/AUTO [id number] 07:46:00 Test Item Value Reference Range Interpretation Comments WHITE BLOOD CELL (test code = 9.4 x10 3/uL 4.5-11.0 N WBC) RED BLOOD CELL (test code = 3.48 x10 6/uL 3.54-5.02 L RBC) HEMOGLOBIN (test code = HGB) 11.3 g/dL 11.0-15.0 N HEMATOCRIT (test code = HCT) 33.9 % 33.0-45.0 N MEAN CELL VOLUME (test code = 97.4 fL 81.0-99.0 MCV) MEAN CELL HGB (test code = MCH) 32.5 pg 27.0-33.0 N MEAN CELL HGB CONCETRATION 33.3 g/dL 33.0-37.0 N (test code = MCHC) RED CELL DISTRIBUTION WIDTH CV 13.2 % 11.5-14.5 N (test code = RDW) RED CELL DISTRIBUTION WIDTH SD 46.4 fL 37.0-54.0 N (test code = RDW-SD) PLATELET COUNT (test code = 140 x10 3/uL 150-400 L PLT) MEAN PLATELET VOLUME (test code 10.5 fL 7.0-9.0 H = MPV) NEUTROPHIL % (test code = NT%) 69.7 % 56.0-77.0 N IMMATURE GRANULOCYTE % (test 0.3 % 0.0-2.0 N code = IG%) LYMPHOCYTE % (test code = LY%) 13.9 % 14.0-32.0 L MONOCYTE % (test code = MO%) 8.5 % 4.8-9.0 N EOSINOPHIL % (test code = EO%) 7.1 % 0.3-3.7 H BASOPHIL % (test code = BA%) 0.5 % 0.0-2.0 N NUCLEATED RBC % (test code = 0.0 % 0-0 N NRBC%) NEUTROPHIL # (test code = NT#) 6.56 x10 3/uL 2.0-7.6 N IMMATURE GRANULOCYTE # (test 0.03 x10 3/uL 0.00-0.03 N code = IG#) LYMPHOCYTE # (test code = LY#) 1.31 x10 3/uL 1.0-3.8 N MONOCYTE # (test code = MO#) 0.80 x10 3/uL 0.1-0.8 N EOSINOPHIL # (test code = EO#) 0.67 x10 3/uL 0.0-0.2 H BASOPHIL # (test code = BA#) 0.05 x10 3/uL 0.0-0.2 N NUCLEATED RBC # (test code = 0.00 x10 3/uL 0.0-0.1 N NRBC#) MANUAL DIFF REQUIRED (test code NO = MDIFF) CBC W/AUTO [id number] 08:42:00 Test Item Value Reference Range Interpretation Comments WHITE BLOOD CELL (test code = 10.3 x10 3/uL 4.5-11.0 N WBC) RED BLOOD CELL (test code = 3.63 x10 6/uL 3.54-5.02 N RBC) HEMOGLOBIN (test code = HGB) 11.7 g/dL 11.0-15.0 N HEMATOCRIT (test code = HCT) 34.0 % 33.0-45.0 N MEAN CELL VOLUME (test code = 93.7 fL 81.0-99.0 N MCV) MEAN CELL HGB (test code = MCH) 32.2 pg 27.0-33.0 N MEAN CELL HGB CONCETRATION 34.4 g/dL 33.0-37.0 N (test code = MCHC) RED CELL DISTRIBUTION WIDTH CV 12.9 % 11.5-14.5 N (test code = RDW) PLATELET COUNT (test code = 146 x10 3/uL 150-400 L PLT) NEUTROPHIL % (test code = NT%) 73.9 % 56.0-77.0 N LYMPHOCYTE % (test code = LY%) 13.6 % 14.0-32.0 L NEUTROPHIL # (test code = NT#) 7.60 x10 3/uL 2.0-7.6 N LYMPHOCYTE # (test code = LY#) 1.40 x10 3/uL 1.0-3.8 N MANUAL DIFF REQUIRED (test code NO = MDIFF) RED CELL DISTRIBUTION WIDTH SD 44.0 fL 37.0-54.0 N (test code = RDW-SD) MEAN PLATELET VOLUME (test code 10.9 fL 7.0-9.0 H = MPV) IMMATURE GRANULOCYTE % (test 0.4 % 0.0-2.0 N code = IG%) MONOCYTE % (test code = MO%) 7.1 % 4.8-9.0 N EOSINOPHIL % (test code = EO%) 4.8 % 0.3-3.7 H BASOPHIL % (test code = BA%) 0.2 % 0.0-2.0 N NUCLEATED RBC % (test code = 0.0 % 0-0 N NRBC%) IMMATURE GRANULOCYTE # (test 0.04 x10 3/uL 0.00-0.03 H code = IG#) MONOCYTE # (test code = MO#) 0.73 x10 3/uL 0.1-0.8 N EOSINOPHIL # (test code = EO#) 0.49 x10 3/uL 0.0-0.2 H BASOPHIL # (test code = BA#) 0.02 x10 3/uL 0.0-0.2 N NUCLEATED RBC # (test code = 0.00 x10 3/uL 0.0-0.1 N NRBC#) BASIC METABOLIC [id number] 08:13:00 Test Item Value Reference Range Interpretation Comments SODIUM (test code = NA) 136 mEq/L 134-147 N POTASSIUM (test code = 3.8 mEq/L 3.4-5.0 N K) CHLORIDE (test code = 104 mEq/L 100-108 N CL) CARBON DIOXIDE (test 25 mEq/l 21-33 N code = CO2) ANION GAP (test code = 11 0-20 N GAP) GLUCOSE (test code = 90 mg/dL 70-110 N GLU) BLOOD UREA NITROGEN 13 mg/dL 7-18 (test code = BUN) GLOMERULAR FILTRATION 61.0 70-80 L Units of measure = RATE (test code = GFR) ml/mi n/1.73 m2 CREATININE (test code = 0.9 mg/dL 0.6-1.3 N CREAT) CALCIUM (test code = 8.9 mg/dL 8.0-10.5 N CA) [id number] 08:13:00 Test Item Value Reference Range Interpretation Comments MAGNESIUM (test code = MAG) 1.49 mg/dL 1.80-2.40 L GLUCOSE [id number] 12:42:00 Test Item Value Reference Range Interpretation Comments GLUCOSE BEDSIDE (test 113 MG/DL 70-110 H Perfor med by certified code = GLUBED) assistant press operator at [facility] HGB [id number] 11:54:00 Test Item Value Reference Range Interpretation Comments HEMOGLOBIN (test code = HGB) 12.9 g/dL 11.0-15.0 N HEMATOCRIT (test code = HCT) 36.8 % 33.0-45.0 N CBC W/AUTO [id number] 08:27:00 Test Item Value Reference Range Interpretation Comments WHITE BLOOD CELL (test code = 8.8 x10 3/uL 4.5-11.0 N WBC) RED BLOOD CELL (test code = 3.92 x10 6/uL 3.54-5.02 N RBC) HEMOGLOBIN (test code = HGB) 12.6 g/dL 11.0-15.0 N HEMATOCRIT (test code = HCT) 37.2 % 33.0-45.0 N MEAN CELL VOLUME (test code = 94.9 fL 81.0-99.0 N MCV) MEAN CELL HGB (test code = MCH) 32.1 pg 27.0-33.0 N MEAN CELL HGB CONCETRATION 33.9 g/dL 33.0-37.0 N (test code = MCHC) RED CELL DISTRIBUTION WIDTH CV 12.9 % 11.5-14.5 N (test code = RDW) RED CELL DISTRIBUTION WIDTH SD 44.0 fL 37.0-54.0 N (test code = RDW-SD) PLATELET COUNT (test code = 144 x10 3/uL 150-400 L PLT) MEAN PLATELET VOLUME (test code 10.6 fL 7.0-9.0 H = MPV) NEUTROPHIL % (test code = NT%) 70.3 % 56.0-77.0 N IMMATURE GRANULOCYTE % (test 0.3 % 0.0-2.0 N code = IG%) LYMPHOCYTE % (test code = LY%) 17.2 % 14.0-32.0 N MONOCYTE % (test code = MO%) 6.7 % 4.8-9.0 N EOSINOPHIL % (test code = EO%) 5.0 % 0.3-3.7 H BASOPHIL % (test code = BA%) 0.5 % 0.0-2.0 N NUCLEATED RBC % (test code = 0.0 % 0-0 N NRBC%) NEUTROPHIL # (test code = NT#) 6.22 x10 3/uL 2.0-7.6 N IMMATURE GRANULOCYTE # (test 0.03 x10 3/uL 0.00-0.03 N code = IG#) LYMPHOCYTE # (test code = LY#) 1.52 x10 3/uL 1.0-3.8 N MONOCYTE # (test code = MO#) 0.59 x10 3/uL 0.1-0.8 N EOSINOPHIL # (test code = EO#) 0.44 x10 3/uL 0.0-0.2 H BASOPHIL # (test code = BA#) 0.04 x10 3/uL 0.0-0.2 N NUCLEATED RBC # (test code = 0.00 x10 3/uL 0.0-0.1 N NRBC#) MANUAL DIFF REQUIRED (test code NO = MDIFF) BASIC METABOLIC [id number] 08:04:00 Test Item Value Reference Range Interpretation Comments SODIUM (test code = NA) 136 mEq/L 134-147 N POTASSIUM (test code = 3.4 mEq/L 3.4-5.0 N K) CHLORIDE (test code = 101 mEq/L 100-108 N CL) CARBON DIOXIDE (test 28 mEq/l 21-33 N code = CO2) ANION GAP (test code = 11 0-20 N GAP) GLUCOSE (test code = 89 mg/dL 70-110 N GLU) BLOOD UREA NITROGEN 9 mg/dL 7-18 N (test code = BUN) GLOMERULAR FILTRATION 61.0 70-80 L Units of measure = RATE (test code = GFR) ml/mi n/1.73 m2 CREATININE (test code = 0.9 mg/dL 0.6-1.3 N CREAT) CALCIUM (test code = 9.3 mg/dL 8.0-10.5 N CA) [id number] 08:04:00 Test Item Value Reference Range Interpretation Comments MAGNESIUM (test code = MAG) 1.44 mg/dL 1.80-2.40 L COVID 19 Asymptomatic IH [id number] 19:17:00 Test Item Value Reference Range Interpretation Comments COVID 19 Asymptomatic Negative Negative A nega tive result is IH AG (test code = presumpti ve and should COVNONPUIAG) be confirmedwit h an FDA authorized mole cular assay, if neces cherie forpatient briseida gement.A positive result does not rule out co-inf ections withother patho gens.This test detects cristino th viable (live) and non-viable,SARS -CoV, and SARS-CoV-2. Amrit t performance dep ends on theamount of vi edgadr (antigen) in th e sample.This amrit t has not been FDA cleare d or approved; the t est hasbeen authori zed by FDA under an Em ergency Use Authorizati on(EUA) for use by labo ratories certified under the CLIA thatmeet the requirements to perform moderate, high or waivedcomplexit y tests. HGB [id number] 11:49:00 Test Item Value Reference Range Interpretation Comments HEMOGLOBIN (test TEST NOT 11.0-15.0 N Amended code = HGB) PERFORMED g/dL report. Disre austin previous result/results* Previously reported result : 11.9 g/dLEdited by: [email or web address] o n 05/08/21:1146 05/08/21 1146: HGB previously reported as: 11 .9 g/dL HEMATOCRIT (test TEST NOT 33.0-45.0 N Amended code = HCT) PERFORMED % report. Disrega rd previous result/results* Previously reported result : 35.3 %Edited by : [email or web address] on 05/08/21:1147 05/08/21 1147: HCT previously reported as: 35 .3 % CBC W/AUTO [id number] 11:45:00 Test Item Value Reference Range Interpretation Comments WHITE BLOOD CELL (test code = 9.0 x10 3/uL 4.5-11.0 N WBC) RED BLOOD CELL (test code = 3.70 x10 6/uL 3.54-5.02 N RBC) HEMOGLOBIN (test code = HGB) 12.0 g/dL 11.0-15.0 N HEMATOCRIT (test code = HCT) 35.8 % 33.0-45.0 N MEAN CELL VOLUME (test code = 96.8 fL 81.0-99.0 N MCV) MEAN CELL HGB (test code = MCH) 32.4 pg 27.0-33.0 N MEAN CELL HGB CONCETRATION 33.5 g/dL 33.0-37.0 N (test code = MCHC) RED CELL DISTRIBUTION WIDTH CV 13.0 % 11.5-14.5 N (test code = RDW) RED CELL DISTRIBUTION WIDTH SD 46.2 fL 37.0-54.0 N (test code = RDW-SD) PLATELET COUNT (test code = 130 x10 3/uL 150-400 L PLT) MEAN PLATELET VOLUME (test code 10.7 fL 7.0-9.0 H = MPV) NEUTROPHIL % (test code = NT%) 70.2 % 56.0-77.0 N IMMATURE GRANULOCYTE % (test 0.4 % 0.0-2.0 N code = IG%) LYMPHOCYTE % (test code = LY%) 17.9 % 14.0-32.0 N MONOCYTE % (test code = MO%) 8.4 % 4.8-9.0 N EOSINOPHIL % (test code = EO%) 2.8 % 0.3-3.7 N BASOPHIL % (test code = BA%) 0.3 % 0.0-2.0 N NUCLEATED RBC % (test code = 0.0 % 0-0 N NRBC%) NEUTROPHIL # (test code = NT#) 6.29 x10 3/uL 2.0-7.6 N IMMATURE GRANULOCYTE # (test 0.04 x10 3/uL 0.00-0.03 H code = IG#) LYMPHOCYTE # (test code = LY#) 1.61 x10 3/uL 1.0-3.8 N MONOCYTE # (test code = MO#) 0.75 x10 3/uL 0.1-0.8 N EOSINOPHIL # (test code = EO#) 0.25 x10 3/uL 0.0-0.2 H BASOPHIL # (test code = BA#) 0.03 x10 3/uL 0.0-0.2 N NUCLEATED RBC # (test code = 0.00 x10 3/uL 0.0-0.1 N NRBC#) MANUAL DIFF REQUIRED (test code NO = MDIFF) BASIC METABOLIC [id number] 07:46:00 Test Item Value Reference Range Interpretation Comments SODIUM (test code = NA) 138 mEq/L 134-147 N POTASSIUM (test code = 3.7 mEq/L 3.4-5.0 N K) CHLORIDE (test code = 105 mEq/L 100-108 N CL) CARBON DIOXIDE (test 25 mEq/l 21-33 N code = CO2) ANION GAP (test code = 11 0-20 N GAP) GLUCOSE (test code = 97 mg/dL 70-110 N GLU) BLOOD UREA NITROGEN 10 mg/dL 7-18 (test code = BUN) GLOMERULAR FILTRATION 69.9 70-80 L Units of measure = RATE (test code = GFR) ml/mi n/1.73 m2 CREATININE (test code = 0.8 mg/dL 0.6-1.3 N CREAT) CALCIUM (test code = 9.0 mg/dL 8.0-10.5 N CA) PLT RESPONSE TO [id number] 00:38:00 Test Item Value Reference Range Interpretation Comments PLT RESPONSE TO PLAVIX 171 PRU 182-335 L Value s <180 PRU are (test code = PLAVRES) specif ic evidence of a P2Y12 inhibitor effect. Testing can onl y be performed if pa tient sample values a re within the following r anges: Hematocrit 33-5 2%, Platelet Count 119,000-502,000 /uL. Patient values outside of theseranges will be rejected by our instrumentation . HGB [id number] 00:35:00 Test Item Value Reference Range Interpretation Comments HEMOGLOBIN (test code = HGB) 11.5 g/dL 11.0-15.0 N HEMATOCRIT (test code = HCT) 33.3 % 33.0-45.0 N - CT ABD PELVIS W/O [id number] 00:00:00 [facility] 1945 Sex: F Name: MOISE NAYAK [facility] : 1945 Age/S: 75 / F [address] [place] [address] Blvd Unit #: [id number] Loc: [place] [address] Phys: David Chong MD Acct: [id number] Dis Date: Status: ADM IN PHONE #: [phone] Exam Date: 05/08/2021 1537 FAX #: [phone] Reason: abd pain, melena EXAMS: CPT CODE: [id number] CT ABD PELVIS W/O CONT [id number] PROCEDURE INFORMATION: Exam: CT Abdomen And Pelvis Without Contrast Exam date and time: 05/08/2021 3:28 PM Age: 75 years old Clinical indication: Abdominal pain; Additional info: Abd pain, melena TECHNIQUE: Imaging protocol: Computed tomography ofthe abdomen and pelvis without contrast. Radiation optimization: All CT scans at this facility use at least one of these dose optimization techniques: automated exposure control; mA and/or kV adjustment per patient size (includes targeted exams where dose is matched to clinical indication); or iterative reconstruction. COMPARISON: DX XR CHEST 2 V 04/16 11:44 AM FINDINGS: ABDOMINAL ORGANS: No acute CT abnormalities of the liver, spleen, pancreas, adrenal glands or kidneys are detected. There is no evidence of acute renal collecting system obstruction or calcified renal collecting system stones. The 16 mm low-d ensity lesion arising from the posterolateral cortex of the upper pole the right kidney demonstrates internal attenuation values compatible with a benign cyst for which no follow-up imaging is recommended. BILIARY: The gallbladder is normally distended. No significantbiliary ductal dilatation is detected. GASTROINTESTINAL: Bowel assessment is limited by the absence of bowel contrast. A small hiatal hernia is identified in the lower mediastinum. The stomach is otherwise unremarkable. No small bowel dilatation is present to suggest obstruction. Postoperative changes at the cecal tip are compatible with prior appendectomy. The colon demonstrates no evidence of diverticular disease or inflammatory wall thickening. PERITONEUM: There is no evidence of free intraperitoneal air. No significant free intraperitoneal fluid. RETROPERITONEUM: The abdominal aorta is normal in caliber. No evidenceof retroperitoneal mass or enlarged retroperitoneal lymph nodes. PELVIS: The patientis status post hysterectomy. No adnexal masses or enlarged pelvic lymph nodes are identified. A pessary is noted in the vagina. The bladder has an unremarkable appearance. LOWER THORAX: The lung bases appear clear of acute disease. Scarring or atelectasis is noted in theposterior basilar right lower lobe. ADDITIONL FINDINGS: None. PAGE 1 Signed Report (CONTINUED) Name: MOISE NAYAK [facility] : 1945 Age/S: 75 / F [address] [place] [address] Unit #: [id number] Loc: [place] [address] Phys: David Chong MD Acct: [id number] Dis Date: Status: ADM IN PHONE #: [phone] Exam Date: 05/08/2021 1537 FAX #: [phone] Reason: abd pain, melena EXAMS: CPT CODE: [id number] CT ABD PELVIS W/O CONT [id number] <Continued> IMPRESSION: 1. No acute CT abnormalities of the abdomen or pelvis are detected. SL:131 at 1706 Reported and signed by: Devin Freedman M.D. CC: David Chong MD Technologist:Rain Quezada, RT(R)(CT) CTDI: DLP: Trnscb Date/Time: 05/08/2021 (6277) Nikki Orig Print D/T: S: 05/08/2021 (9576) PAGE 2 Signed ReportLACTIC ACID 2021-05-07 22:01:00 Test Item Value Reference Range Interpretation Comments LACTIC ACID (test code = LACT) 0.6 mmol/L 0.4-1.9 N BASIC METABOLIC [id number] 20:49:00 Test Item Value Reference Range Interpretation Comments SODIUM (test code = NA) 140 mEq/L 134-147 N POTASSIUM (test code = 4.2 mEq/L 3.4-5.0 N K) CHLORIDE (test code = 105 mEq/L 100-108 N CL) CARBON DIOXIDE (test 28 mEq/l 21-33 N code = CO2) ANION GAP (test code = 11 0-20 N GAP) GLUCOSE (test code = 102 mg/dL 70-110 N GLU) BLOOD UREA NITROGEN 15 mg/dL 7-18 N (test code = BUN) GLOMERULAR FILTRATION 61.0 70-80 L Units of measure = RATE (test code = GFR) ml/mi n/1.73 m2 CREATININE (test code = 0.9 mg/dL 0.6-1.3 N CREAT) CALCIUM (test code = 9.5 mg/dL 8.0-10.5 N CA) COMPREHENSIVE METABOLIC [id number] 20:49:00 Test Item Value Reference Range Interpretation Comments TOTAL PROTEIN (test code = PROT) 6.8 g/dL 6.4-8.2 N ALBUMIN (test code = ALB) 4.00 g/dL 3.4-5.0 N BILIRUBIN TOTAL (test code = BILT) 0.50 mg/dL 0.0-1.0 N SGOT/AST (test code = AST) 26 IUnit/L 15-37 N SGPT/ALT (test code = ALT) 16 IUnit/L 30-65 L ALKALINE PHOSPHATASE TOTAL (test 76 IUnit/L 20-125 N code = ALKP) PROTHROMBIN [id number] 20:43:00 Test Item Value Reference Range Interpretation Comments PROTHROMBIN TIME 12.0 SECONDS 9.3-12.9 N PATIENT (test code = PTP) INTERNATIONAL NORMAL 1.1 0.8-1.2 N TARGET RATIO (test code = INR BY IN DICATION INR) Indication INR1. Prophyl axis of venous thrombos is 2.0 - 3. 0 (orthopedic dori jeffry), Prophylaxis of venous thrombos is (other than hig h-risk surgery), Ilda tment of Deep Vein Thrombosis/Pulm onary Embolism, Preve ntion of systemic emb olism - Tissue heart va lves, Acute Myocardia l Infarction (to prevent systemic embo lism), Valvular heart disease, Atri al Fibrillation, Bileaflet mecha nical valve in aortic position.2. Mec hanical prosthetic valv es (high risk), 2.5 - 3.5 Presence of Lupus Anticoagu lant or Antiphospholi pid Antibodies, Pre vention of systemic e mbolism - Acute Myocard ial Infarction (t o prevent recurre nt infarct). CBC W/O [id number] 20:35:00 Test Item Value Reference Range Interpretation Comments WHITE BLOOD CELL (test code = 11.5 x10 3/uL 4.5-11.0 H WBC) RED BLOOD CELL (test code = 3.78 x10 6/uL 3.54-5.02 N RBC) HEMOGLOBIN (test code = HGB) 12.3 g/dL 11.0-15.0 N HEMATOCRIT (test code = HCT) 35.7 % 33.0-45.0 N MEAN CELL VOLUME (test code = 94.4 fL 81.0-99.0 N MCV) MEAN CELL HGB (test code = MCH) 32.5 pg 27.0-33.0 N MEAN CELL HGB CONCETRATION 34.5 g/dL 33.0-37.0 N (test code = MCHC) RED CELL DISTRIBUTION WIDTH CV 13.0 % 11.5-14.5 N (test code = RDW) RED CELL DISTRIBUTION WIDTH SD 44.7 fL 37.0-54.0 N (test code = RDW-SD) PLATELET COUNT (test code = 135 x10 3/uL 150-400 L PLT) MEAN PLATELET VOLUME (test code 10.5 fL 7.0-9.0 H = MPV) COAGULATION TIME [id number] 20:22:00 Test Item Value Reference Range Interpretation Comments COAGULATION TIME 261 SECONDS Performed b y ACTIVATED (test code = certi fied assistant press operator ACT) at [facility] COAGULATION TIME [id number] 20:22:00 Test Item Value Reference Range Interpretation Comments COAGULATION TIME 272 SECONDS Performed b y ACTIVATED (test code = certi fied assistant press operator ACT) at [facility] PROTHROMBIN [id number] 12:32:00 Test Item Value Reference Range Interpretation Comments PROTHROMBIN TIME 11.5 SECONDS 9.3-12.9 N PATIENT (test code = PTP) INTERNATIONAL NORMAL 1.0 0.8-1.2 N TARGET RATIO (test code = INR BY IN DICATION INR) Indication INR1. Prophyl axis of venous thrombos is 2.0 - 3. 0 (orthopedic dori jeffry), Prophylaxis of venous thrombos is (other than hig h-risk surgery), Ilda tment of Deep Vein Thrombosis/Pulm onary Embolism, Preve ntion of systemic emb olism - Tissue heart va lves, Acute Myocardia l Infarction (to prevent systemic embo lism), Valvular heart disease, Atri al Fibrillation, Bileaflet mecha nical valve in aortic position.2. Mec hanical prosthetic valv es (high risk), 2.5 - 3.5 Presence of Lupus Anticoagu lant or Antiphospholi pid Antibodies, Pre vention of systemic e mbolism - Acute Myocard ial Infarction (t o prevent recurre nt infarct). BASIC METABOLIC [id number] 12:16:00 Test Item Value Reference Range Interpretation Comments SODIUM (test code = NA) 137 mEq/L 134-147 N POTASSIUM (test code = 3.7 mEq/L 3.4-5.0 N K) CHLORIDE (test code = 100 mEq/L 100-108 N CL) CARBON DIOXIDE (test 30 mEq/l 21-33 N code = CO2) ANION GAP (test code = 11 0-20 N GAP) GLUCOSE (test code = 112 mg/dL 70-110 H GLU) BLOOD UREA NITROGEN 16 mg/dL 7-18 N (test code = BUN) GLOMERULAR FILTRATION 54.1 70-80 L Units of measure = RATE (test code = GFR) ml/mi n/1.73 m2 CREATININE (test code = 1.0 mg/dL 0.6-1.3 N CREAT) CALCIUM (test code = 9.4 mg/dL 8.0-10.5 N CA) CBC W/AUTO [id number] 12:03:00 Test Item Value Reference Range Interpretation Comments WHITE BLOOD CELL (test code = 8.7 x10 3/uL 4.5-11.0 N WBC) RED BLOOD CELL (test code = 4.27 x10 6/uL 3.54-5.02 N RBC) HEMOGLOBIN (test code = HGB) 13.6 g/dL 11.0-15.0 N HEMATOCRIT (test code = HCT) 40.4 % 33.0-45.0 N MEAN CELL VOLUME (test code = 94.6 fL 81.0-99.0 N MCV) MEAN CELL HGB (test code = MCH) 31.9 pg 27.0-33.0 N MEAN CELL HGB CONCETRATION 33.7 g/dL 33.0-37.0 N (test code = MCHC) RED CELL DISTRIBUTION WIDTH CV 13.2 % 11.5-14.5 N (test code = RDW) PLATELET COUNT (test code = 175 x10 3/uL 150-400 N PLT) NEUTROPHIL % (test code = NT%) 62.0 % 56.0-77.0 N LYMPHOCYTE % (test code = LY%) 19.9 % 14.0-32.0 N NEUTROPHIL # (test code = NT#) 5.41 x10 3/uL 2.0-7.6 N LYMPHOCYTE # (test code = LY#) 1.74 x10 3/uL 1.0-3.8 N MANUAL DIFF REQUIRED (test code NO = MDIFF) RED CELL DISTRIBUTION WIDTH SD 45.0 fL 37.0-54.0 N (test code = RDW-SD) MEAN PLATELET VOLUME (test code 10.8 fL 7.0-9.0 H = MPV) IMMATURE GRANULOCYTE % (test 1.0 % 0.0-2.0 N code = IG%) MONOCYTE % (test code = MO%) 8.5 % 4.8-9.0 N EOSINOPHIL % (test code = EO%) 7.8 % 0.3-3.7 H BASOPHIL % (test code = BA%) 0.8 % 0.0-2.0 N NUCLEATED RBC % (test code = 0.0 % 0-0 N NRBC%) IMMATURE GRANULOCYTE # (test 0.09 x10 3/uL 0.00-0.03 H code = IG#) MONOCYTE # (test code = MO#) 0.74 x10 3/uL 0.1-0.8 N EOSINOPHIL # (test code = EO#) 0.68 x10 3/uL 0.0-0.2 H BASOPHIL # (test code = BA#) 0.07 x10 3/uL 0.0-0.2 N NUCLEATED RBC # (test code = 0.00 x10 3/uL 0.0-0.1 N NRBC#) - XR CHEST 2 [id number] 00:00:00 [facility] 1945 Sex: F FAX: Devon Reese MD [phone] [place]: St: PRE Name: NAMЕЛЕНА GALLARDOE [facility] : 1945 Age/S: 75/F [address] [place] [address] Unit #: [id number] Loc: [place] [address] Phys: Jen Moses Acct: [id number] Dis Date: Status: PRE SDC PHONE #: [phone] Exam Date: 05/03/2021 1213 FAX #: [phone] Reason: PREOP EXAMS: CPT CODE: [id number] XR CHEST 2 V [id number] PROCEDURE INFORMATION: Exam: XR Chest Exam date and time: 05/03/2021 11:44 AM Age: 75 years old Clinical indication: Other: Preop TECHNIQUE: Imaging protocol: XR of the chest. Views: 2 views. PA and Lateral COMPARISON: No relevant prior studies available. FINDINGS: Lungs: There are normal lung volumes without consolidation or interstitial oppacities. Pleural spaces: No pleural effusion. No pneumothorax. Heart/Mediastinum: The heart size is normal. Va sculature: Aortic arch calcifications are present. Bones/joints: No acute abnormality. IMPRESSION: No acute cardiopulmonary process. at 1226 Reported and signed by: Eliud Martinez M.D. CC: Devon Moses MD Technologist: RT Pam(R) Trnscrd Date/Time/By: 05/03/2021 (1226) : By: [email or web address] Orig Print D/T: S: 05/03/2021 (3236) PAGE 1 Signed ReportCT Heart Scan Plus w Physician Order (Self Pay)2021-03-03 15:44:17EXAMINATION: CT HEART SCAN PLUS W PHYSICIAN ORDER CLINICAL HISTORY: E78.5 Hyperlipidemia unspecifi ed, E78.5 COMPARISON: None. CT imaging was performed with iterative reconstruction techniques and/or automated exposure control to reduce radiation dose. IMPRESSION:Sequential 2.[address] cuts were obtained through the chest using ECG gating. Interactive image viewing and volumetric display and analysis were also performed. The CAC score was quantified using the Agatston scoring method. Agatston totalcoronary artery calcium score: 1197Left Main (LM): 60Left Anterior Descending (LAD): 265Left Circumflex (LCx): 38Right Coronary Artery (RCA): 775Posterior Descending Artery (PDA): 59 Agatston Calcium Score (total) Extent of Atherosclerosis0-Normal 1-10 - Minimal extent of yxyazmsmehtdfrj62-825 - Mild extent of fpunxmihkwqazuz470-959 - Moderate extent of atherosclerosis> 400 - Severe extent of atherosclerosis RECOMMENDATION:A score of 1197 places the patient in the 90th percentile rank. That means10% of the females at the ages from 71-75 have a higher calcium score. Intensive risk factor modification is indicated to prevent further progression (>0). Please contact your physician regarding these results. INCIDENTAL FINDINGS:None [id number] Interface, Radiology Results 03/03/2021 10:47 AM CDT EXAMINATION: CT HEART SCAN PLUS W PHYSICIAN ORDERCLINICAL HISTORY: E78.5 Hyperlipidemia unspecified, E78.5COMPARISON: None.CT imaging was performed with iterative reconstruction techniques and/or automated exposure controlto reduce radiation dose.IMPRESSION:Sequential 2.[address] cuts were obtained through the chest using ECG gating. Interactive image viewing and volumetric display and analysis were also performed. The CAC score was quantified using the Agatston scoring method.Agatston total coronary artery calcium score: 1197Left Main (LM): 60Left Anterior Descending (LAD): 265Left Circumflex (LCx): 38Right Coronary Artery (RCA): 775Posterior Descending Artery (PDA): 59Agatston Calcium Score (total) Extent of Atherosclerosis0-Normal 1-10 - Minimal extent of crnsionymlgwcvs20-404 - Mild extent of fwgbqffcuyconcs768-008 - Moderate extent of atherosclerosis> 400 - Severe extent of atherosclerosisRECOMMENDATION:A score of 1197 places the patient in the 90th percentile rank. That means 10% of the females at the ages f rom 71-75 have a higher calcium score. Intensive risk factor modification is indicated to prevent further progression (>0). Please contact your physician regarding these results.INCIDENTAL FINDINGS:[id number] vascular screening heart scan plus (self pay)2021-03-03 15:27:23CLINICAL INFORMATION: E78.5 Hyperlipidemia unspecified, E78.5 COMPARISON: none. TECHNIQUE: Sonographic evaluation of the bilateral carotid arteries as well as the abdominal aorta was performed with grayscale analysis. Ankle brachial indices of the lower legs and pulse Doppler waveforms with peak systolic velocities were also obtained. IMPRESSION: CAROTID ARTERIES: The bilateral carotid arteries are of normal course, caliber, and contour without aneurysmal dilatation or focal dissection. Diffuse vascular calcifications are seen. Consider additional imaging with dedicated carotid artery ultrasound for further evaluation and velocity measurements. ABDOMINAL AORTA: The visualized aspects of the abdominal aorta are of normal course, caliber, and contour without aneurysmal dilatation or focal dissection. Maximal diameter is 1.4 cm. Scattered vascular calcifications are seen. ANKLE-BRACHIAL INDICES: RIGHT: PSV (mmHg) ABIBrachial: 136 Ankle (PT): 106 0.78Ankle (DP): 97 0.71 LEFT: PSV (mmHg) ABIBrachial: 135 Ankle (PT): 124 0.91Ankle (DP): 116 0.85 [id number] Interface, Radiology Results Incoming - 03/03/2021 10:30 AM CDT CLINICAL INFORMATION:E78.5 Hyperlipidemia unspecified, E78.5COMPARISON:none.TECHNIQUE: Sonographic evaluation of the bilateral carotid arteries as well as the abdominal aorta was performed with grayscale analysis. Ankle brachial indices of the lower legs and pulse Doppler waveforms with peak systolic velocities werealso obtained.IMPRESSION:CAROTID ARTERIES: The bilateral carotid arteries are of normal course, caliber, and contour without aneurysmal dilatation or focal dissection. Diffuse vascular calcifications are seen. Consider additional imaging with dedicated carotid artery ultrasound for further evaluation and velocity measurements.ABDOMINAL AORTA: The visualized aspects of the abdominal aorta are of normal course, caliber, and contour without aneurysmal dilatation or focal dissection. Maximal diameter is1.4 cm. Scattered vascular calcifications are seen.ANKLE-BRACHIAL INDICES:RIGHT: PSV (mmHg) ABIBrachial: 136 Ankle (PT): 106 0.78Ankle (DP): 97 0.71LEFT: PSV (mmHg) ABIBrachial: 135 Ankle (PT): 124 0.91Ankle (DP): 116 [id number] [facility] [id number] 07:21:00 Test Item Value Reference Range Interpretation Comments POTASSIUM (BEAKER) (test code = 2.9 meq/L 3.5-5.1 L 379) [id number] 07:21:00 Test Item Value Reference Range Interpretation Comments MAGNESIUM (BEAKER) (test code = 1.5 mg/dL 1.6-2.6 L 627) [id number] 06:36:00 Test Item Value Reference Range Interpretation Comments POTASSIUM (BEAKER) (test code = 3.5 meq/L 3.5-5.1 379) [id number] 06:36:00 Test Item Value Reference Range Interpretation Comments MAGNESIUM (BEAKER) (test code = 1.5 mg/dL 1.6-2.6 L 627) BASIC METABOLIC [id number] 10:13:00 Test Item Value Reference Range Interpretation Comments SODIUM (BEAKER) (test 133 meq/L 136-145 L code = 381) POTASSIUM (BEAKER) 3.2 meq/L 3.5-5.1 L (test code = 379) CHLORIDE (BEAKER) 95 meq/L 98-107 L (test code = 382) CO2 (BEAKER) (test 28 meq/L 22-29 code = 355) BLOOD UREA NITROGEN 12 mg/dL 7-21 (BEAKER) (test code = 354) CREATININE (BEAKER) 0.91 mg/dL 0.57-1.25 (test code = 358) GLUCOSE RANDOM 179 mg/dL 70-105 H (BEAKER) (test code = 652) CALCIUM (BEAKER) 9.2 mg/dL 8.4-10.2 (test code = 697) EGFR (BEAKER) (test INSUFFIC IENT CLINICAL code = 1092) DATA TO CALCULA TE ESTIMATED GFR. [id number] 10:08:00 Test Item Value Reference Range Interpretation Comments MAGNESIUM (BEAKER) (test code = 1.4 mg/dL 1.6-2.6 L 627) [id number] 04:41:00 Test Item Value Reference Range Interpretation Comments MAGNESIUM (BEAKER) (test code = 1.4 mg/dL 1.6-2.6 L 627) BASIC METABOLIC [id number] 04:41:00 Test Item Value Reference Range Interpretation Comments SODIUM (BEAKER) (test 135 meq/L 136-145 L code = 381) POTASSIUM (BEAKER) 3.7 meq/L 3.5-5.1 (test code = 379) CHLORIDE (BEAKER) 102 meq/L 98-107 (test code = 382) CO2 (BEAKER) (test 25 meq/L 22-29 code = 355) BLOOD UREA NITROGEN 21 mg/dL 7-21 (BEAKER) (test code = 354) CREATININE (BEAKER) 0.80 mg/dL 0.57-1.25 (test code = 358) GLUCOSE RANDOM 97 mg/dL 70-105 (BEAKER) (test code = 652) CALCIUM (BEAKER) 8.8 mg/dL 8.4-10.2 (test code = 697) EGFR (BEAKER) (test INSUFFIC IENT CLINICAL code = 1092) DATA TO CALCULA TE ESTIMATED GFR. CBC W/PLT COUNT & AUTO [id number] 04:23:00 Test Item Value Reference Range Interpretation Comments WHITE BLOOD CELL COUNT (BEAKER) 7.9 K/ L 3.5-10.5 (test code = 775) RED BLOOD CELL COUNT (BEAKER) 3.62 M/ L 3.93-5.22 L (test code = 761) HEMOGLOBIN (BEAKER) (test code = 11.9 GM/DL 11.2-15.7 410) HEMATOCRIT (BEAKER) (test code = 33.5 % 34.1-44.9 L 411) MEAN CORPUSCULAR VOLUME (BEAKER) 92.5 fL 79.4-94.8 (test code = 753) MEAN CORPUSCULAR HEMOGLOBIN 32.9 pg 25.6-32.2 H (BEAKER) (test code = 751) MEAN CORPUSCULAR HEMOGLOBIN CONC 35.5 GM/DL 32.2-35.5 (BEAKER) (test code = 752) RED CELL DISTRIBUTION WIDTH 12.3 % 11.7-14.4 (BEAKER) (test code = 412) PLATELET COUNT (BEAKER) (test 141 K/CU MM 150-450 L code = 756) MEAN PLATELET VOLUME (BEAKER) 10.4 fL 9.4-12.3 (test code = 754) NUCLEATED RED BLOOD CELLS 0 /100 WBC 0-0 (BEAKER) (test code = 413) NEUTROPHILS RELATIVE PERCENT 60 % (BEAKER) (test code = 429) LYMPHOCYTES RELATIVE PERCENT 25 % (BEAKER) (test code = 430) MONOCYTES RELATIVE PERCENT 10 % (BEAKER) (test code = 431) EOSINOPHILS RELATIVE PERCENT 3 % (BEAKER) (test code = 432) BASOPHILS RELATIVE PERCENT 0 % (BEAKER) (test code = 437) NEUTROPHILS ABSOLUTE COUNT 4.76 K/ L 1.56-6.13 (BEAKER) (test code = 670) LYMPHOCYTES ABSOLUTE COUNT 1.95 K/ L 1.18-3.74 (BEAKER) (test code = 414) MONOCYTES ABSOLUTE COUNT (BEAKER) 0.82 K/ L 0.24-0.36 H (test code = 415) EOSINOPHILS ABSOLUTE COUNT 0.27 K/ L 0.04-0.36 (BEAKER) (test code = 416) BASOPHILS ABSOLUTE COUNT (BEAKER) 0.03 K/ L 0.01-0.08 (test code = 417) IMMATURE GRANULOCYTES-RELATIVE 1 % 0-1 PERCENT (BEAKER) (test code = 2809) BASIC METABOLIC [id number] 06:29:00 Test Item Value Reference Range Interpretation Comments SODIUM (BEAKER) (test 137 meq/L 136-145 code = 381) POTASSIUM (BEAKER) 3.2 meq/L 3.5-5.1 L (test code = 379) CHLORIDE (BEAKER) 103 meq/L 98-107 (test code = 382) CO2 (BEAKER) (test 26 meq/L 22-29 code = 355) BLOOD UREA NITROGEN 20 mg/dL 7-21 (BEAKER) (test code = 354) CREATININE (BEAKER) 0.86 mg/dL 0.57-1.25 (test code = 358) GLUCOSE RANDOM 110 mg/dL 70-105 H (BEAKER) (test code = 652) CALCIUM (BEAKER) 9.6 mg/dL 8.4-10.2 (test code = 697) EGFR (BEAKER) (test INSUFFIC IENT CLINICAL code = 1092) DATA TO CALCULA TE ESTIMATED GFR. [id number] 06:26:00 Test Item Value Reference Range Interpretation Comments MAGNESIUM (BEAKER) (test code = 1.4 mg/dL 1.6-2.6 L 627) POCT-GLUCOSE [id number] 04:52:00 Test Item Value Reference Range Interpretation Comments POC-GLUCOSE METER 103 mg/dL 70-110 TESTED AT [facility] 6720 (BEAKER) (test code = KELSIE MARKS 1538) [address] CT, BRAIN, WITHOUT [id number] 01:41:00Reason for exam:->Fall and hit head on porcelain. Bleeding. Possible occipital skull fxFINAL REPORT EXAM: CT, BRAIN, WITHOUT CONTRAST CLINICAL INDICATION: Fell and hit head. TECHNIQUE: Helical CT images from skull base to vertex without IV contrast. This exam was performed according to our departmental dose- optimization program, which includes automated exposure control, adjustment of the mA and/or kV according to patient size and/or use of iterative reconstr uction technique. COMPARISON: CT from 13 hours prior. FINDINGS: Parenchyma: Unchanged multifocal completed infarcts in the right MCA territory including in the right subinsular region and right granados radiata. No new infarction is evident. No hemorrhage. No mass or mass effect. Patchy areas of hypoattenuation are present in the cerebral white matter that are nonspecific but compatible with mild chronic microvascular ischemic changes. Extra-axial Collection: None Ventricular System: Ex vacuo enlarged without hydrocephalus Dural Venous Sinuses: Normal Osseous Structures: No acute osseous abnormality. Included Orbits: Normal Paranasal Sinuses: Predominantly clear Tympanomastoid Cavities: Normal Other: Small right occipital scalp hematoma. IMPRESSION:Small right occipital scalp hematoma without underlying fracture or acute intracranial traumatic abnormality. 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 Signed: Ana Maria Daniels [facility] Verified Date/Time: 04/18/2019 01:41:45 CT, CEREBRAL PERFUSION [id number] 13:14:00Reason for exam:->Assessment for collateral perfusionAnesthesia:->NoneFINAL REPORT CT, CEREBRAL PERFUSION ANALYSIS INDICATION: Carotid stenosis, follow upAssessment for collateral perfusion COMPARISON: CTA 04/15/2019, MRI and MRA 04/11/2019 TECHNIQUE: Rapid acquisition spiral images were obtained between the skull base and the cranial vertex during intravenous contrast infusion Perfusion imaging technique:Arterial input function: ACAVenous outflow function: TorcularSite of normal perfusion: right anterior territory DOSE REDUCTION: Dose modulation,iterative reconstruction, and/or weight-based adjustment of the mA/kV was utilized to reduce the radiation dose to as low as reasonably achievable. CT PERFUSION PARAMETRIC MAPS: CBF: Multifocal completed infarcts within the right MCA and border zone distributions demonstrate absence of cerebral blood flow. Remainder of the right MCA territory demonstrates decreased cerebral blood flow compared to thecontralateral side.MTT: Elevated in the right MCA territory.CBV: Other than the foci of completed infarcts, remainder of the cerebral blood volume is symmetric bilaterally.TTP: Elevated in the right MCA territory. IMPRESSION: Multifocal completed infarcts within the right MCA and border zone distributions.In addition, the entire right MCA territory is tissue at risk. Signed: Radha Joseph MDReportVerified Date/Time: 04/17/2019 13:14:17 Electronically signed by: RADHA JOSEPH MD on 1 01:14 PMCT, CAROTID, [id number] 13:27:00Reason for exam:->cva FINAL REPORT CLINICAL HISTORY: cvaR MCA stroke, carotid stenosis TECHNIQUE: Initially, noncontrast head CT images were performed. Contiguous contrast-enhanced axial images through the neck followed by axial images through the head with coronal and sagittal reformations to assessthe arterial circulation. 3-D reconstructions were performed using a volume rendered technique separately on a workstation. This exam was performed according to the departmental dose optimization program which includes automated exposure control, adjustment of the mA and/or kV according to the patientsize, and/or use of an iterative reconstruction technique. COMPARISON: MRI and MRA 04/11/2019 FINDINGS: CTA head:Evolving multifocal right MCA territory infarcts. No acute intracranial hemorrhage. Punctate parenchymal calcification within the mesial left occipital lobe. There is no hydrocephalus or midline shift. The skull is intact. 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 The right LILIA and right MCA and branches are patent andof normal caliber. There is multifocal mild to moderate stenoses of the diminutive distal right vertebral artery. Bilateral motor lodge clerk and branches are of normal caliber. The major intradural venous sinuses are patent. CTA neck:Great vessel origins: No occlusion or high-grade stenosis. Carotid arteries: Complete occlusion of the right carotid artery from its origin. Atherosclerosis of the left carotid bifurcation with less than 50% focal stenosis per NASCET criteria. Vertebral arteries: Right vertebral origin is occluded. There is reconstitution in the mid cervical segment with multifocal moderate to severe stenoses. Severe focal stenosis of the left vertebral origin. Moderate degenerative changes of the cervical spine, with probable cord flattening at C5-6. Cervical soft tissues are unremarkable. Visualized lung apices are clear. IMPRESSION:1.Evolving multifocal right MCA border zone territory infarcts.2.No acute intracranial hemorrhage.3.Complete occlusion of the right ICA from its origin, withdistal reconstitution beginning in the petrous segment. The right MCA and LILIA and branches are of normal caliber.4.Complete occlusion of the right vertebral origin with distal reconstitution in the midcervical segment and multifocal moderate to severe stenoses distally.5.Severe focal stenosis of the left vertebral origin. Remainder of the left vertebral artery is of normal caliber. Signed: Miriam Joseph MDReport Verified Date/Time: 04/15/2019 13:27:10 CT, CTANGIO BRAIN 2019-04-15 13:27:00Reason for exam:->right MCA strokeFINAL REPORT CLINICAL HISTORY: cvaR MCA stroke, carotid stenosis TECHNIQUE: In itially, noncontrast head CT images were performed. Contiguous contrast-enhanced axial images through the neck followed by axial images through the head with coronal and sagittal reformations to assessthe arterial circulation. 3-D reconstructions were performed using a volume rendered technique separately on a workstation. This exam was performed according to the departmental dose optimization program which includes automated exposure control, adjustment of the mA and/or kV according to the patientsize, and/or use of an iterative reconstruction technique. COMPARISON: MRI and MRA 04/11/2019 FINDINGS: CTA head:Evolving multifocal right MCA territory infarcts. No acute intracranial hemorrhage. Punctate parenchymal calcification within the mesial left occipital lobe. There is no hydrocephalus or midline shift. The skull is intact. Again noted is occlusion of the right cervical ICA, with distal reconstitution beginning in the petrous segment. The right LILIA and right MCA and branches are patent andof normal caliber. There is multifocal mild to moderate stenoses of the diminutive distal right vertebral artery. Bilateral motor lodge clerk and branches are of normal caliber. The major intradural venous sinuses are patent. CTA neck:Great vessel origins: No occlusion or high-grade stenosis. Carotid arteries: Complete occlusion of the right carotid artery from its origin. Atherosclerosis of the left carotid bifurcation with less than 50% focal stenosis per NASCET criteria. Vertebral arteries: Right vertebral origin is occluded. There is reconstitution in the mid cervical segment with multifocal moderate to severe stenoses. Severe focal stenosis of the left vertebral origin. Moderate degenerative changes of th e cervical spine, with probable cord flattening at C5-6. Cervical soft tissues are unremarkable. Visualized lung apices are clear. IMPRESSION:1.Evolving multifocal right MCA border zone territory infarcts.2.No acute intracranial hemorrhage.3.Complete occlusion of the right ICA from its origin, withdistal reconstitution beginning in the petrous segment. The right MCA and LILIA and branches are of normal caliber.4.Complete occlusion of the right vertebral origin with distal reconstitution in the midcervical segment and multifocal moderate to severe stenoses distally.5.Severe focal stenosis of the left vertebral origin. Remainder of the left vertebral artery is of normal caliber. Signed: Radha Joseph Verified Date/Time: 04/15/2019 13:27:10 URIC [id number] 06:14:00 Test Item Value Reference Range Interpretation Comments URIC ACID (BEAKER) (test code = 3.8 mg/dL 2.6-7.2 773) BASIC METABOLIC [id number] 06:36:00 Test Item Value Reference Range Interpretation Comments SODIUM (BEAKER) (test 135 meq/L 136-145 L code = 381) POTASSIUM (BEAKER) 3.8 meq/L 3.5-5.1 (test code = 379) CHLORIDE (BEAKER) 104 meq/L 98-107 (test code = 382) CO2 (BEAKER) (test 23 meq/L 22-29 code = 355) BLOOD UREA NITROGEN 11 mg/dL 7-21 (BEAKER) (test code = 354) CREATININE (BEAKER) 0.76 mg/dL 0.57-1.25 (test code = 358) GLUCOSE RANDOM 101 mg/dL 70-105 (BEAKER) (test code = 652) CALCIUM (BEAKER) 9.5 mg/dL 8.4-10.2 (test code = 697) EGFR (BEAKER) (test INSUFFIC IENT CLINICAL code = 1092) DATA TO CALCULA TE ESTIMATED GFR. BASIC METABOLIC [id number] 06:09:00 Test Item Value Reference Range Interpretation Comments SODIUM (BEAKER) (test 136 meq/L 136-145 code = 381) POTASSIUM (BEAKER) 3.2 meq/L 3.5-5.1 L (test code = 379) CHLORIDE (BEAKER) 102 meq/L 98-107 (test code = 382) CO2 (BEAKER) (test 25 meq/L 22-29 code = 355) BLOOD UREA NITROGEN 10 mg/dL 7-21 (BEAKER) (test code = 354) CREATININE (BEAKER) 0.79 mg/dL 0.57-1.25 (test code = 358) GLUCOSE RANDOM 96 mg/dL 70-105 (BEAKER) (test code = 652) CALCIUM (BEAKER) 9.5 mg/dL 8.4-10.2 (test code = 697) EGFR (BEAKER) (test INSUFFIC IENT CLINICAL code = 1092) DATA TO CALCULA TE ESTIMATED GFR. CBC W/PLT COUNT & AUTO [id number] 05:36:00 Test Item Value Reference Range Interpretation Comments WHITE BLOOD CELL COUNT (BEAKER) 6.0 K/ L 3.5-10.5 (test code = 775) RED BLOOD CELL COUNT (BEAKER) 4.30 M/ L 3.93-5.22 (test code = 761) HEMOGLOBIN (BEAKER) (test code = 13.7 GM/DL 11.2-15.7 410) HEMATOCRIT (BEAKER) (test code = 40.2 % 34.1-44.9 411) MEAN CORPUSCULAR VOLUME (BEAKER) 93.5 fL 79.4-94.8 (test code = 753) MEAN CORPUSCULAR HEMOGLOBIN 31.9 pg 25.6-32.2 (BEAKER) (test code = 751) MEAN CORPUSCULAR HEMOGLOBIN CONC 34.1 GM/DL 32.2-35.5 (BEAKER) (test code = 752) RED CELL DISTRIBUTION WIDTH 12.4 % 11.7-14.4 (BEAKER) (test code = 412) PLATELET COUNT (BEAKER) (test 149 K/CU MM 150-450 L code = 756) MEAN PLATELET VOLUME (BEAKER) 9.8 fL 9.4-12.3 (test code = 754) NUCLEATED RED BLOOD CELLS 0 /100 WBC 0-0 (BEAKER) (test code = 413) NEUTROPHILS RELATIVE PERCENT 67 % (BEAKER) (test code = 429) LYMPHOCYTES RELATIVE PERCENT 17 % (BEAKER) (test code = 430) MONOCYTES RELATIVE PERCENT 8 % (BEAKER) (test code = 431) EOSINOPHILS RELATIVE PERCENT 7 % (BEAKER) (test code = 432) BASOPHILS RELATIVE PERCENT 1 % (BEAKER) (test code = 437) NEUTROPHILS ABSOLUTE COUNT 4.01 K/ L 1.56-6.13 (BEAKER) (test code = 670) LYMPHOCYTES ABSOLUTE COUNT 1.03 K/ L 1.18-3.74 L (BEAKER) (test code = 414) MONOCYTES ABSOLUTE COUNT (BEAKER) 0.50 K/ L 0.24-0.36 H (test code = 415) EOSINOPHILS ABSOLUTE COUNT 0.40 K/ L 0.04-0.36 H (BEAKER) (test code = 416) BASOPHILS ABSOLUTE COUNT (BEAKER) 0.04 K/ L 0.01-0.08 (test code = 417) IMMATURE GRANULOCYTES-RELATIVE 0 % 0-1 PERCENT (BEAKER) (test code = 2801) BASIC METABOLIC [id number] 06:05:00 Test Item Value Reference Range Interpretation Comments SODIUM (BEAKER) (test 136 meq/L 136-145 code = 381) POTASSIUM (BEAKER) 3.4 meq/L 3.5-5.1 L (test code = 379) CHLORIDE (BEAKER) 102 meq/L 98-107 (test code = 382) CO2 (BEAKER) (test 23 meq/L 22-29 code = 355) BLOOD UREA NITROGEN 12 mg/dL 7-21 (BEAKER) (test code = 354) CREATININE (BEAKER) 0.81 mg/dL 0.57-1.25 (test code = 358) GLUCOSE RANDOM 108 mg/dL 70-105 H (BEAKER) (test code = 652) CALCIUM (BEAKER) 9.1 mg/dL 8.4-10.2 (test code = 697) EGFR (BEAKER) (test INSUFFIC IENT CLINICAL code = 1092) DATA TO CALCULA TE ESTIMATED GFR. RAD, ABDOMEN/KUB, 1 VIEW [id number] 02:48:00Reason for exam:->Corpak placement 011 AMFINAL REPORT RAD, ABDOMEN/KUB, 1 VIEW AP CLINICAL HISTORY: Corpak placement 0111 AM TECHNIQUE: RAD, ABDOMEN/KUB, 1 VIEW AP COMPARISON: April 12, 2019 IMPRESSION:Enteric tube tip projects over the gastric antrum. If duodenal placement is desired, consider advancing additional5 cm.There is no evidence of free air or air-fluid levels. The bowel gas pattern is within normal limits. Calcification projected over left upper abdominal quadrant is not significantly but conceivablymay represent vascular calcifications. Signed: Ronald Gaines MDReport Verified Date/Time: 04/12/2019 02:48:37 RAD, ABDOMEN/KUB, 1 VIEW [id number] 00:53:00Reason for exam:- >Corpak placement verification. 0005 AMShould this be performed at the bedside?->YesFINAL REPORT RAD, ABDOMEN/KUB, 1 VIEW AP CLINICAL HISTORY: Corpak placement verification. 0005 AM TECHNIQUE: RAD, ABDOMEN/KUB, 1 VIEW AP COMPARISON: None IMPRESSION:Enteric tube tip projects over lower esophagus. Recommend advancing 10 cm and reimaging. There is no evidence of free air or air-fluid levels. The bowel gas pattern is within normal limits. Cholecystectomy clips arepresent. Signed: Ronald Gaines MDReport Verified Date/Time: 04/12/2019 00:53:54 MR, BRAIN, WITHOUT [id number] 00:10:00Reason for exam:->Ischemic Stroke Evaluationwith General Anesthesia FINAL REPORT MR, BRAIN, WITHOUT CONTRAST, MR, MRA, NECK, WITHOUT IV CONTRAST,MR, MRA, BRAIN, WITHOUT CONTRAST INDICATION: Seizure, nontraumatic (Age > 41y)Stroke, follow upIschemic Stroke Evaluation TECHNIQUE: Multiplanar, multisequence MR images of the brain. 3-D time of fl ight MRA of the cranial and cervical circulation. 2-D time of flight MRA of the neck. 3D MIP angiographic post-processing was performed. Stenosis evaluation utilized NASCET criteria. COMPARISON: Noncontrast brain CT of the same date FINDINGS: MRI BRAIN: Numerous right cerebral hemisphere DWI hyperintensities predominantly involving the right granados radiata with punctate foci within the right subinsular and periventricular white matter with small cortical foci involving the right insula, posterior frontal and parietal lobes. These lesions are associated with T2 hyperintensity without significant mass effect. No evidence of acute intracranial hemorrhage. Additional mild to moderate chronic microvascular ischemic changes or white matter present. T2 FLAIR hyperintensity (absence of water suppression) within the right cerebral hemisphere sulci present. No acute hemorrhage. Moderate parenchymal volume loss with commensurate ventricular prominence without evidence of hydrocephalus. Calvarium and skull base: Normal signal.Paranasal sinuses and mastoid air cells: Scattered paranasal sinus mucosal thickening.Orbital contents: No acute abnormality. Additional findings: High-resolution changes significant by appear symmetric. MRA BRAIN:Internal carotid arteries: Occlusion of distal right ICA with recons titution of flow related signal within the right carotid terminus. Patent distal left ICA.Middle cerebral arteries: Distal right M1 segment severe stenosis and diminished flow within the right M2 and M3 division. Patent left MCA.Anterior cerebral arteries: Hypoplastic right A1 segment otherwise, intact ACAs.Basilar system: Hypoplastic versus severely stenotic distal right vertebral artery. Patent distal left vertebral artery supplies the basilar artery.Posterior cerebral arteries:Patent beyond the quadrigeminal segments.Additional findings: None. MRA NECK:Common carotid arteries: Unremarkable. Bifurcations: Occlusion of proximal right ICA and its origin. Patent left ICA origin with approximately 4 0-50% stenosis by NASCET criteria.Cervical internal carotid arteries: Right cervical ICA without appreciable flow-related signal. Patent left cervical ICA.Vertebral arteries: Near occlusion of right vertebral artery with several short segments of narrowed flow-related signal. Left vertebral artery origin poorly visualized and may be stenotic versus artifact. The remainder of the left vertebral arteryis patent. IMPRESSION:Right MCA territory acute infarct. Occlusion of cervical right ICA at its origin. MRA technique may exaggerate stenosis, consider correlation with CTA/conventional angiography toexclude string sign, if intervention is considered. Right MCA, distal M1 severe stenosis with reduced flow/narrowing of the distal right MCA divisions. Right vertebral artery occlusion with possible string sign/segmental reconstitution. Left vertebral artery origin high-grade focal stenosis versus artifact, appears patent distally. This can be further evaluated by CTA. Right cerebral hemisphere sulcal T2 hyperintensity may be sequela of leptomeningeal vascular engorgement due to collateralization versus oxygen therapy, with meningitis felt be unlikely but remains a consideration in the appropriate setting. Findings discussed with the patient's care provider, nurse Liu to be immediately conveyed to the patient's attending physician , on 04/12/2019 12:05 AM. Signed: Ronald Gaines MDReport Verified Date/Time: 04/12/2019 00:10:30 MR, MRA, BRAIN, WITHOUT CONTRAST 2019-04-12 00:10:00Reason for exam:->Ischemic Stroke Evaluationwith general anesthesiaFINAL REPORT MR, BRAIN, WITHOUT CONTRAST, MR, MRA, NECK, WITHOUT IV CONTRAST,MR, MRA, BRAIN, WITHOUT CONTRAST INDICATION: Seizure, nontraumatic (Age > 41y)Stroke, follow upIschemic Stroke Evaluation TECHNIQUE: Multiplanar, multisequence MR images of the brain. 3-D time of fl ight MRA of the cranial and cervical circulation. 2-D time of flight MRA of the neck. 3D MIP angiographic post-processing was performed. Stenosis evaluation utilized NASCET criteria. COMPARISON: Noncontrast brain CT of the same date FINDINGS: MRI BRAIN: Numerous right cerebral hemisphere DWI hyperintensities predominantly involving the right granados radiata with punctate foci within the right subinsular and periventricular white matter with small cortical foci involving the right insula, posterior frontal and parietal lobes. These lesions are associated with T2 hyperintensity without significant mass effect. No evidence of acute intracranial hemorrhage. Additional mild to moderate chronic microvascular ischemic changes or white matter present. T2 FLAIR hyperintensity (absence of water suppression) within the right cerebral hemisphere sulci present. No acute hemorrhage. Moderate parenchymal volume loss with commensurate ventricular prominence without evidence of hydrocephalus. Calvarium and skull base: Normal signal.Paranasal sinuses and mastoid air cells: Scattered paranasal sinus mucosal thickening.Orbital contents: No acute abnormality. Additional findings: High-resolution changes significant by appear symmetric. MRA BRAIN:Internal carotid arteries: Occlusion of distal right ICA with recons titution of flow related signal within the right carotid terminus. Patent distal left ICA.Middle cerebral arteries: Distal right M1 segment severe stenosis and diminished flow within the right M2 and M3 division. Patent left MCA.Anterior cerebral arteries: Hypoplastic right A1 segment otherwise, intact ACAs.Basilar system: Hypoplastic versus severely stenotic distal right vertebral artery. Patent distal left vertebral artery supplies the basilar artery.Posterior cerebral arteries:Patent beyond the quadrigeminal segments.Additional findings: None. MRA NECK:Common carotid arteries: Unremarkable. Bifurcations: Occlusion of proximal right ICA and its origin. Patent left ICA origin with approximately 4 0-50% stenosis by NASCET criteria.Cervical internal carotid arteries: Right cervical ICA without appreciable flow-related signal. Patent left cervical ICA.Vertebral arteries: Near occlusion of right vertebral artery with several short segments of narrowed flow-related signal. Left vertebral artery origin poorly visualized and may be stenotic versus artifact. The remainder of the left vertebral arteryis patent. IMPRESSION:Right MCA territory acute infarct. Occlusion of cervical right ICA at its origin. MRA technique may exaggerate stenosis, consider correlation with CTA/conventional angiography toexclude string sign, if intervention is considered. Right MCA, distal M1 severe stenosis with reduced flow/narrowing of the distal right MCA divisions. Right vertebral artery occlusion with possible string sign/segmental reconstitution. Left vertebral artery origin high-grade focal stenosis versus artifact, appears patent distally. This can be further evaluated by CTA. Right cerebral hemisphere sulcal T2 hyperintensity may be sequela of leptomeningeal vascular engorgement due to collateralization versus oxygen therapy, with meningitis felt be unlikely but remains a consideration in the appropriate setting. Findings discussed with the patient's care provider, nurse Liu to be immediately conveyed to the patient's attending physician , on 04/12/2019 12:05 AM. Signed: Ronald Gaines MDReport Verified Date/Time: 04/12/2019 00:10:30 MR, MRA, NECK, WITHOUT IV [id number] 00:10:00Reason for exam:->Ischemic Stroke Evaluationwith general anesthesiaFINAL REPORT MR, BRAIN, WITHOUT CONTRAST, MR, MRA, NECK, WITHOUT IV CONTRAST,MR, MRA, BRAIN, WITHOUT CONTRAST INDICATION: Seizure, nontraumatic (Age > 41y)Stroke, follow upIschemic Stroke Evaluation TECHNIQUE: Multiplanar, multisequence MR images of the brain. 3-D time of flight MRA of the cranial and cervical circulation. 2-D time of flight MRA of the neck. 3D MIP angiographic post-processing was performed. Stenosis evaluation utilized NASCET criteria. COMPARISON: Noncontrast brain CT of the same date FINDINGS: MRI BRAIN: Numerous right cerebral hemisphere DWI hyperinte nsities predominantly involving the right granados radiata with punctate foci within the right subinsular and periventricular white matter with small cortical foci involving the right insula, posterior frontal and parietal lobes. These lesions are associated with T2 hyperintensity without significant mass effect. No evidence of acute intracranial hemorrhage. Additional mild to moderate chronic microvascular ischemic changes or white matter present. T2 FLAIR hyperintensity (absence of water suppression) within the right cerebral hemisphere sulci present. No acute hemorrhage. Moderate parenchymal volume loss with commensurate ventricular prominence without evidence of hydrocephalus. Calvarium and skull base: Normal signal.Paranasal sinuses and mastoid air cells: Scattered paranasal sinus mucosal thickening.Orbital contents: No acute abnormality. Additional findings: High-resolution changes significant by appear symmetric. MRA BRAIN:Internal carotid arteries: Occlusion of distal right ICA with reconstitution of flow related signal within the right carotid terminus. Patent distal left ICA.Middle cerebral arteries: Distal right M1 segment severe stenosis and diminished flow within the right M2 and M3 division. Patent left MCA.Anterior cerebral arteries: Hypoplastic right A1 segment otherwise, intact ACAs.Basilar system: Hypoplastic versus severely stenotic distal right vertebral artery. Patent distal left vertebral artery supplies the basilar artery.Posterior cerebral arteries:Patent beyond the quadrigeminal segments.Additional findings: None. MRA NECK:Common carotid arteries: Unremarkable. Bifurcations: Occlusion of proximal right ICA and its origin. Patent left ICA origin with approximately 40-50% stenosis by NASCET criteria.Cervical internal carotid arteries: Right cervical ICA without appr eciable flow-related signal. Patent left cervical ICA.Vertebral arteries: Near occlusion of right vertebral artery with several short segments of narrowed flow-related signal. Left vertebral artery origin poorly visualized and may be stenotic versus artifact. The remainder of the left vertebral arteryis patent. IMPRESSION:Right MCA territory acute infarct. Occlusion of cervical right ICA at its origin. MRA technique may exaggerate stenosis, consider correlation with CTA/conventional angiography toexclude string sign, if intervention is considered. Right MCA, distal M1 severe stenosis with reduced flow/narrowing of the distal right MCA divisions. Right vertebral artery occlusion with possible string sign/segmental reconstitution. Left vertebral artery origin high-grade focal stenosis versus artifact, appears patent distally. This can be further evaluated by CTA. Right cerebral hemisphere sulcal T2 hyperintensity may be sequela of leptomeningeal vascular engorgement due to collateralization versus oxygen therapy, with meningitis felt be unlikely but remains a consideration in the appropriate setting. Findings discussed with the patient's care provider, nurse Liu to be immediately conveyed to the patient's attending physician , on 04/12/2019 12:05 AM. Signed: Ronald Gaines MDReport Verified Date/Time: 04/12/2019 00:10:30 [id number] 13:25:00 Test Item Value Reference Range Interpretation Comments RPR SCREEN (BEAKER) (test code = Nonreactive Nonreactive 420) HEMOGLOBIN [id number] 10:35:00 Test Item Value Reference Range Interpretation Comments HEMOGLOBIN A1C (BEAKER) (test code = 5.5 % 4.3-6.1 368) COMPREHENSIVE METABOLIC [id number] 07:01:00 Test Item Value Reference Range Interpretation Comments TOTAL PROTEIN 6.9 gm/dL 6.0-8.3 (BEAKER) (test code = 770) ALBUMIN (BEAKER) 4.0 g/dL 3.5-5.0 (test code = 1145) ALKALINE PHOSPHATASE 72 U/L 40-150 (BEAKER) (test code = 346) BILIRUBIN TOTAL 0.9 mg/dL 0.2-1.2 (BEAKER) (test code = 377) SODIUM (BEAKER) (test 133 meq/L 136-145 L code = 381) POTASSIUM (BEAKER) 3.5 meq/L 3.5-5.1 (test code = 379) CHLORIDE (BEAKER) 100 meq/L 98-107 (test code = 382) CO2 (BEAKER) (test 23 meq/L 22-29 code = 355) BLOOD UREA NITROGEN 14 mg/dL 7-21 (BEAKER) (test code = 354) CREATININE (BEAKER) 0.90 mg/dL 0.57-1.25 (test code = 358) GLUCOSE RANDOM 105 mg/dL 70-105 (BEAKER) (test code = 652) CALCIUM (BEAKER) 9.3 mg/dL 8.4-10.2 (test code = 697) AST (SGOT) (BEAKER) 17 U/L 5-34 (test code = 353) ALT (SGPT) (BEAKER) 16 U/L 6-55 (test code = 347) EGFR (BEAKER) (test INSUFFIC IENT CLINICAL code = 1092) DATA TO CALCULA TE ESTIMATED GFR. [id number] 06:29:00 Test Item Value Reference Range Interpretation Comments MAGNESIUM (BEAKER) (test code = 1.6 mg/dL 1.6-2.6 627) FastingLIPID [id number] 06:29:00 Test Item Value Reference Range Interpretation Comments TRIGLYCERIDES (BEAKER) (test code = 103 mg/dL 540) CHOLESTEROL (BEAKER) (test code = 208 mg/dL 631) HDL CHOLESTEROL (BEAKER) (test code 51 mg/dL = 976) LDL CHOLESTEROL CALCULATED (BEAKER) 136 mg/dL (test code = 633) Triglyceride Reference Range: Low Risk <150 Borderline 150-199 High Risk 200-499 Very High Risk >=500Cholesterol Reference Range: Low Risk <200 Borderline 200-239 High Risk >240HDL Cholesterol Reference Range: Low Risk >=60 High Risk <40LDL Cholesterol Reference Range: Optimal <100 Near Optimal 100-129 Borderline 130-159 High 160-189 Very High >=190 FastingTSH/FREE T4 IF [id number] 06:22:00 Test Item Value Reference Range Interpretation Comments THYROID STIMULATING HORMONE 1.35 uIU/mL 0.35-4.94 (BEAKER) (test code = 772) CBC W/PLT COUNT & AUTO [id number] 06:01:00 Test Item Value Reference Range Interpretation Comments WHITE BLOOD CELL COUNT (BEAKER) 8.5 K/ L 3.5-10.5 (test code = 775) RED BLOOD CELL COUNT (BEAKER) 4.16 M/ L 3.93-5.22 (test code = 761) HEMOGLOBIN (BEAKER) (test code = 13.2 GM/DL 11.2-15.7 410) HEMATOCRIT (BEAKER) (test code = 38.4 % 34.1-44.9 411) MEAN CORPUSCULAR VOLUME (BEAKER) 92.3 fL 79.4-94.8 (test code = 753) MEAN CORPUSCULAR HEMOGLOBIN 31.7 pg 25.6-32.2 (BEAKER) (test code = 751) MEAN CORPUSCULAR HEMOGLOBIN CONC 34.4 GM/DL 32.2-35.5 (BEAKER) (test code = 752) RED CELL DISTRIBUTION WIDTH 12.3 % 11.7-14.4 (BEAKER) (test code = 412) PLATELET COUNT (BEAKER) (test 172 K/CU MM 150-450 code = 756) MEAN PLATELET VOLUME (BEAKER) 10.1 fL 9.4-12.3 (test code = 754) NUCLEATED RED BLOOD CELLS 0 /100 WBC 0-0 (BEAKER) (test code = 413) NEUTROPHILS RELATIVE PERCENT 70 % (BEAKER) (test code = 429) LYMPHOCYTES RELATIVE PERCENT 18 % (BEAKER) (test code = 430) MONOCYTES RELATIVE PERCENT 8 % (BEAKER) (test code = 431) EOSINOPHILS RELATIVE PERCENT 3 % (BEAKER) (test code = 432) BASOPHILS RELATIVE PERCENT 1 % (BEAKER) (test code = 437) NEUTROPHILS ABSOLUTE COUNT 5.95 K/ L 1.56-6.13 (BEAKER) (test code = 670) LYMPHOCYTES ABSOLUTE COUNT 1.52 K/ L 1.18-3.74 (BEAKER) (test code = 414) MONOCYTES ABSOLUTE COUNT (BEAKER) 0.70 K/ L 0.24-0.36 H (test code = 415) EOSINOPHILS ABSOLUTE COUNT 0.24 K/ L 0.04-0.36 (BEAKER) (test code = 416) BASOPHILS ABSOLUTE COUNT (BEAKER) 0.06 K/ L 0.01-0.08 (test code = 417) IMMATURE GRANULOCYTES-RELATIVE 1 % 0-1 PERCENT (BEAKER) (test code = 2801) URINALYSIS WITH MICROSCOPIC IF [id number] 14:45:00 Test Item Value Reference Range Interpretation Comments COLOR (BEAKER) (test code = 470) Yellow CLARITY (BEAKER) (test code = 469) Clear SPECIFIC GRAVITY UA (BEAKER) (test 1.015 1.001-1.035 code = 468) PH UA (BEAKER) (test code = 467) 7.0 5.0-8.0 PROTEIN UA (BEAKER) (test code = Negative Negative 464) GLUCOSE UA (BEAKER) (test code = Negative Negative 365) KETONES UA (BEAKER) (test code = Negative Negative 371) BILIRUBIN UA (BEAKER) (test code = Negative Negative 462) BLOOD UA (BEAKER) (test code = 461) Negative Negative NITRITE UA (BEAKER) (test code = Negative Negative 465) LEUKOCYTE ESTERASE UA (BEAKER) Negative Negative (test code = 466) UROBILINOGEN UA (BEAKER) (test code 0.2 mg/dL 0.2-1.0 = 463) SOURCE(BEAKER) (test code = 2795) VITAMIN B12 AND [id number] 14:43:00 Test Item Value Reference Range Interpretation Comments VITAMIN B12 (BEAKER) (test code = 1414 pg/mL 213-816 H 774) FOLATE (BEAKER) (test code = 362) > ng/mL >=7.0 TSH/FREE T4 IF [id number] 14:36:00 Test Item Value Reference Range Interpretation Comments THYROID STIMULATING HORMONE 1.54 uIU/mL 0.35-4.94 (BEAKER) (test code = 772) BASIC METABOLIC [id number] 13:34:00 Test Item Value Reference Range Interpretation Comments SODIUM (BEAKER) (test 132 meq/L 136-145 L code = 381) POTASSIUM (BEAKER) 3.4 meq/L 3.5-5.1 L (test code = 379) CHLORIDE (BEAKER) 97 meq/L 98-107 L (test code = 382) CO2 (BEAKER) (test 24 meq/L 22-29 code = 355) BLOOD UREA NITROGEN 14 mg/dL 7-21 (BEAKER) (test code = 354) CREATININE (BEAKER) 0.94 mg/dL 0.57-1.25 (test code = 358) GLUCOSE RANDOM 106 mg/dL 70-105 H (BEAKER) (test code = 652) CALCIUM (BEAKER) 9.6 mg/dL 8.4-10.2 (test code = 697) EGFR (BEAKER) (test INSUFFIC IENT CLINICAL code = 1092) DATA TO CALCULA TE ESTIMATED GFR. [id number] 13:18:00 Test Item Value Reference Range Interpretation Comments MAGNESIUM (BEAKER) (test code = 1.4 mg/dL 1.6-2.6 L 627)
--- NOTE | 2021-07-28 15:04 | RAD REPORT ---
EXAM DESCRIPTION: RAD - Chest Single View - 07/28/2021 2:58 pm CLINICAL HISTORY: COUGH COMPARISON: Chest Single View dated 06/24/2021; Chest Single View dated 06/22/2021; Chest Single View dated 05/18/2021; Chest Single View dated 05/03/2021hest Single View dated 05/07/2021; Chest Pa And L at (2 Views) dated 04/23/2021; Chest Single View dated 04/10/2019; Chest Pa And Lat (2 Views) dated 09/14 FINDINGS: Lines: None. Lungs: No evidence of edema or pneumonia. Pleural: No significant pleural effusions or pneumothorax. Cardiac: The heart size is within normal limits. Bones: No acute fractures. Other: IMPRESSION: No acute cardiopulmonary disease.
[2021-07-28 15:07] LABS: Absolute Lymphocytes (CBC) 0.4 K/uL (0.7-4.9); Hematocrit 39.5 % (36.0-45.0); Lymphocytes % 2.5 % (15.3-44.8); MPV 8.6 fL (7.6-11.3); RBC Red Blood Cell Count 4.33 M/uL (3.86-4.86)
[2021-07-28 15:31] LABS: Potassium 3.6 mmol/L (3.5-5.1)
[2021-07-28] MEDS ORDERED: NA CHLORIDE 0.9% 500 ML ONE (15:31)
[2021-07-28 15:50] LABS: Blood Morphology Comment NOT SEEN (NOT SEEN); Platelet Estimate ADEQ; White Blood Cell Scan OK (OK)
--- NOTE | 2021-07-28 16:20 | RAD REPORT ---
EXAM DESCRIPTION: CTAbdomen Pelvis Wo Contrast - 07/28/2021 4:06 pm CLINICAL HISTORY: ABD PAIN COMPARISON: <Comparisons> TECHNIQUE: CT of the abdomen and pelvis was performed. All CT scans are performed using dose optimization technique as appropriate and may include automated exposure control or mA/KV adjustment according to patient size. FINDINGS: Lower chest: Coronary artery calcifications and/or stent. Small hiatal hernia. Liver: No acute abnormality or suspicious lesions. Biliary: Cholecystectomy Stomach: No significant focal abnormality. Duodenum: No significant focal abnormality. Pancreas: No significant abnormality. Spleen: No significant abnormality. Adrenal: No suspicious lesions. Kidney/ureter: No hydronephrosis. Right renal lesion which is likely a cyst. Retroperitoneum: No retroperitoneal adenopathy. Vascular: Atherosclerosis. Bowel: No significant focal abnormality. Peritoneum: No ascites or free air. Bladder: Grossly unremarkable. Reproductive: No adnexal masses. Pessary. Bones: No acute fracture. Other: n/a IMPRESSION: No acute intra-abdominal or pelvic finding. Incidental findings as noted above.
[2021-07-28 16:22] LABS: SARS-COV-2 RT PCR NEGATIVE (NEGATIVE)
[2021-07-28 16:41] LABS: Urine Bacteria <20 /HPF (<20); Urine RBC <5 /HPF (NONE SEEN)
--- NOTE | 2021-07-28 17:36 | EDPHYS ---
Physician Documentation [facility] Name: Marla Campos Age: 75 yrs Sex: Female : 1945 Arrival Date: 07/28/2021 Time: 14:09 Bed 26 Private MD: ED Physician Willard Beach HPI: 07/28 16:04 This 75 yrs old Female presents to ER via EMS with complaints of Cough, weakness, rn abdominal pain. 16:04 Patient and report felt bad earlier with sudden onset of generalized weakness. rn No fever. Has had a cough for a few days. No shortness of breath. Does report lower abdominal pain and thinks might have a urine infection. No fall or trauma. No syncope.. Onset: The symptoms/episode began/occurred today. Severity of symptoms: At their worst the symptoms were mild in the emergency department the symptoms are unchanged. The patient has not experienced similar symptoms in the past. The patient has not recently seen a physician. Historical: - Allergies: 14:12 Biaxin; jl7 14:12 Breo Ellipta; jl7 14:12 CITRIC ACID; jl7 14:12 Clotrimazole-Betamethasone; jl7 14:12 Demerol; jl7 14:12 Doxycycline; jl7 14:12 Florinef Acetate; jl7 14:12 GABAPENTIN; jl7 14:12 Iodinated Contrast Media - IV Dye; jl7 14:12 Lyrica; jl7 14:12 PENICILLINS; jl7 14:12 Periostat; jl7 14:12 Prevacid; jl7 14:12 QUINOLONES; jl7 14:12 relafen; jl7 14:12 Sulfa (Sulfonamide Antibiotics); jl7 14:12 Vioxx; jl7 - PMHx: 14:12 Asthma; fluid retention; jl7 - PSHx: 14:12 angnioplasty; jl7 - Immunization history:: Adult Immunizations up to date. - Social history:: Smoking status: Patient denies any tobacco usage or history of. - Family history:: not pertinent. - Hospitalizations: : No recent hospitalization is reported. ROS: 16:04 Constitutional: Negative for fever, chills, and weight loss, Eyes: Negative for injury, rn pain, redness, and discharge, Neck: Negative for injury, pain, and swelling, Cardiovascular: Negative for chest pain, palpitations, and edema, Respiratory: Positive for cough Abdomen/GI: Positive for abdominal pain : Negative for injury, bleeding, discharge, and swelling, MS/Extremity: Negative for injury and deformity, Skin: Negative for injury, rash, and discoloration, Neuro: Positive for generalized weakness Exam: 16:04 Constitutional: This is a well developed, well nourished patient who is awake, alert, rn and in no acute distress. Head/Face: Normocephalic, atraumatic. Eyes: Periorbital areas with no swelling, redness, or edema. ENT: Moist mucous membranes Cardiovascular: Regular rate and rhythm. No pulse deficits. Respiratory: Speaking full sentences, unlabored. No increased work of breathing, no retractions or nasal flaring. Abdomen/GI: Soft, mild suprapubic tenderness, no masses, no rebound Skin: Warm, dry MS/ Extremity: Pulses equal, no cyanosis. Neuro: Awake and alert, GCS 15, oriented to person, place, time, and situation. Cranial nerves II-XII grossly intact. Motor strength 4/5 in all extremities. Sensory grossly intact. Cerebellar exam normal. 17:33 ECG was reviewed by the Attending Physician. rn Vital Signs: 14:10 BP 140 / 56; Pulse 80; Resp 18; Temp 100.2(A); Pulse Ox 98% on R/A; jl7 14:18 BP 100 / 48; Pulse 84; Resp 16; Temp 98.7(O); Pulse Ox 98% on R/A; ic1 15:39 BP 111 / 38; Pulse 78; Resp 16; Pulse Ox 98% on R/A; ic1 16:22 BP 128 / 76; Pulse 71; Resp 16; Pulse Ox 98% on R/A; ic1 18:18 BP 113 / 51; Pulse 67; Resp 16; Pulse Ox 98% on R/A; ic1 [place] Coma Score: 14:18 Eye Response: spontaneous(4). Verbal Response: oriented(5). Motor Response: obeys ic1 commands(6). Total: 15. MDM: 14:27 Patient medically screened. rn 17:33 Differential Diagnosis COVID, flu, urine infection, viral infection, intestinal rn infection, pneumonia, dehydration. Data reviewed: vital signs, nurses notes, lab test result(s), EKG, radiologic studies, CT scan, plain films, and as a result, I will discharge patient. 17:34 Counseling: I had a detailed discussion with the patient and/or guardian regarding: the rn historical points, exam findings, and any diagnostic results supporting the discharge/admit diagnosis, lab results, radiology results, the need for outpatient follow up, to return to the emergency department if symptoms worsen or persist or if there are any questions or concerns that arise at home. Response to treatment: the patient's symptoms have markedly improved after treatment, and as a result, I will discharge patient. Special discussion: I discussed with the patient/guardian in detail that at this point there is no indication for admission to the hospital. It is understood, however, that if the symptoms persist or worsen the patient needs to return immediately for re-evaluation. ED course: Patient feels much better after only IV hydration. No acute findings on x-ray or CAT scan. Urine negative. COVID and flu negative. Stable vital signs. Consulted with Dr. Hopkins, thanks okay to go home. Patient is currently on antibiotics from Dr. Hopkins for sinus infection. Return precautions given and understood.. 07/28 14:36 Order name: CBC with Diff 07/28 14:36 Order name: Basic Metabolic Panel; Complete Time: 15:40 07/28 14:36 Order name: Urine Culture 07/28 14:36 Order name: Urine Microscopic Only; Complete Time: 17:28 07/28 14:36 Order name: Blood Culture Adult (2) 07/28 14:36 Order name: Procalcitonin; Complete Time: 16:17 07/28 14:36 Order name: Lactate; Complete Time: 16:17 07/28 14:36 Order name: XRAY Chest (1 view); Complete Time: 15:40 07/28 14:36 Order name: COVID-19/FLU A+B (Document "Date of Onset" if Symptomatic); Complete Time: rn 17:07/28 14:37 Order name: CBC with Automated Diff; Complete Time: 16:17 [facility] 07/28 15:50 Order name: CBC Smear Scan; Complete Time: 16:17 [facility] 07/28 16:05 Order name: Abdomen ; Complete Time: 16:21 [facility] 07/28 14:36 Order name: IV Start; Complete Time: 14:57 07/28 14:36 Order name: Urine Dipstick-Ancillary (obtain specimen); Complete Time: 16:06 rn 07/28 14:36 Order name: EKG; Complete Time: 14:37 rn 07/28 14:36 Order name: EKG - Nurse/Tech; Complete Time: 14:50 rn EC:33 Rate is 79 beats/min. Rhythm is regular. QRS [place] is Normal. DE interval is normal. QRS rn interval is normal. QT interval is normal. T waves are Normal. No ST changes noted. Clinical impression: Normal ECG. Interpreted by me. Reviewed by me. Administered Medications: 15:31 Drug: NS 0.9% 500 ml Route: IV; Rate: bolus; Site: right antecubital; ic1 Disposition Summary: 07/28/21 17:35 Discharge Ordered Location: Home rn Problem: new rn Symptoms: have improved rn Condition: Stable rn Diagnosis - Weakness rn - Dehydration rn Followup: rn - With: Private Physician - When: As needed - Reason: Recheck today's complaints, Re-evaluation by your physician Discharge Instructions: - Discharge Summary Sheet rn - Dehydration, Adult rn - Weakness rn Forms: - Medication Reconciliation Form rn - Thank You Letter rn - Antibiotic rn gynecology - Prescription Opioid Use rn Signatures: Dispatcher [employer] EDWillard Sanchez MD MD rn Leal, Jahala, RN RN [id number] Joy Do RN RN ic1 Corrections: (The following items were deleted from the chart) 16:05 14:37 Abdomen Pelvis W Con+CT.RAD.BRZ ordered. EDMS EDMS
--- NOTE | 2021-07-28 17:36 | ER ---
Nurse's Notes [facility] Name: Marla Campos Age: 75 yrs Sex: Female : 1945 Arrival Date: 07/28/2021 Time: 14:09 Bed 26 Private MD: Diagnosis: Weakness;Dehydration Presentation: 07/28 14:10 Chief complaint: EMS states: EMS toned out for body aches and cough x1 week. jl7 Coronavirus screen: Vaccine status: Patient reports receiving the 2nd dose of the covid vaccine. Client denies travel out of the [place] in the last 14 days. Ebola Screen: Patient negative for fever greater than or equal to 101.5 degrees Fahrenheit, and additional compatible Ebola Virus Disease symptoms Patient denies exposure to infectious person. Patient denies travel to an Ebola-affected area in the 21 days before illness onset. Initial Sepsis Screen: Does the patient meet any 2 criteria? No. Patient's initial sepsis screen is negative. Does the patient have a suspected source of infection? No. Patient's initial sepsis screen is negative. Risk Assessment: Do you want to hurt yourself or someone else? Patient reports no desire to harm self or others. Onset of symptoms was July 21, 2020. 14:10 Method Of Arrival: EMS: [facility] jl7 14:10 Acuity: DANNY 3 jl7 Triage Assessment: 14:13 General: Appears in no apparent distress. uncomfortable, Behavior is calm, cooperative, jl7 appropriate for age. Pain: Denies pain. Historical: - Allergies: 14:12 Biaxin; jl7 14:12 Breo Ellipta; jl7 14:12 CITRIC ACID; jl7 14:12 Clotrimazole-Betamethasone; jl7 14:12 Demerol; jl7 14:12 Doxycycline; jl7 14:12 Florinef Acetate; jl7 14:12 GABAPENTIN; jl7 14:12 Iodinated Contrast Media - IV Dye; jl7 14:12 Lyrica; jl7 14:12 PENICILLINS; jl7 14:12 Periostat; jl7 14:12 Prevacid; jl7 14:12 QUINOLONES; jl7 14:12 relafen; jl7 14:12 Sulfa (Sulfonamide Antibiotics); jl7 14:12 Vioxx; jl7 - PMHx: 14:12 Asthma; fluid retention; jl7 - PSHx: 14:12 angnioplasty; jl7 - Immunization history:: Adult Immunizations up to date. - Social history:: Smoking status: Patient denies any tobacco usage or history of. - Family history:: not pertinent. - Hospitalizations: : No recent hospitalization is reported. Screenin:13 Abuse screen: Denies threats or abuse. Denies injuries from another. Nutritional jl7 screening: No deficits noted. Tuberculosis screening: No symptoms or risk factors identified. Fall Risk None identified. Assessment: 14:16 Reassessment: Pt brought in by EMS and reports weakness. States on today during lunch ic1 she experienced dizziness and felt like she was about to pass out, but didn't. Pt denies cp or sob. General: Appears in no apparent distress. comfortable, Behavior is calm, cooperative. Pain: Denies pain. Neuro: Level of Consciousness is awake, alert, obeys commands, Oriented to person, place, [employer] Supervisor are equal bilaterally Weakness. Cardiovascular: No deficits noted. Respiratory: No deficits noted. GI: No deficits noted. : No deficits noted. EENT: No deficits noted. Derm: No deficits noted. Musculoskeletal: No deficits noted. 16:07 Reassessment: Pt transported to CT via wheelchair. In NAD. ic1 Vital Signs: 14:10 BP 140 / 56; Pulse 80; Resp 18; Temp 100.2(A); Pulse Ox 98% on R/A; jl7 14:18 BP 100 / 48; Pulse 84; Resp 16; Temp 98.7(O); Pulse Ox 98% on R/A; ic1 15:39 BP 111 / 38; Pulse 78; Resp 16; Pulse Ox 98% on R/A; ic1 16:22 BP 128 / 76; Pulse 71; Resp 16; Pulse Ox 98% on R/A; ic1 18:18 BP 113 / 51; Pulse 67; Resp 16; Pulse Ox 98% on R/A; ic1 [place] Coma Score: 14:18 Eye Response: spontaneous(4). Verbal Response: oriented(5). Motor Response: obeys ic1 commands(6). Total: 15. ED Course: 14:09 Patient arrived in ED. jl7 14:12 Triage completed. jl7 14:13 Arm band placed on right wrist. jl7 14:17 Patient has correct armband on for positive identification. Placed in gown. Bed in low ic1 position. Call light in reach. Side rails up X2. 14:17 Inserted saline lock: 20 gauge in right antecubital area, using aseptic technique. ic1 Blood collected. 14:27 Willard Beach MD is Attending Physician. rn 14:36 Joy Do, LEONARDA is Primary Nurse. ic1 14:50 EKG done, by ED staff, reviewed by Willard Beach MD. 5 14:57 CBC with Automated Diff Sent. ic1 14:57 Lactate Sent. ic1 14:57 Procalcitonin Sent. ic1 14:57 Blood Culture Adult (2) Sent. ic1 14:57 Basic Metabolic Panel Sent. ic1 14:57 CBC with Diff Sent. ic1 14:58 XRAY Chest (1 view) In Process Unspecified. EDMS 16:06 Abdomen In Process Unspecified. EDMS 16:07 Urine Culture Sent. ic1 16:07 Urine Microscopic Only Sent. ic1 18:18 IV discontinued, intact, bleeding controlled, No redness/swelling at site. Pressure ic1 dressing applied. Administered Medications: 15:31 Drug: NS 0.9% 500 ml Route: IV; Rate: bolus; Site: right antecubital; ic1 Outcome: 17:35 Discharge ordered by . rn 18:18 Discharged to home via wheelchair, with family. ic1 18:18 Condition: stable 18:18 Discharge instructions given to patient, family, Instructed on discharge instructions, follow up and referral plans. Demonstrated understanding of instructions, follow-up care. 18:51 Patient left the ED. ic1 Signatures: Dispatcher [employer] EDMS Willard Beach MD MD rn Martinez, Maria [facility] Uriah Lau RN RN jl7 Creggett, Iesha, RN RN ic1
[2021-07-28 19:25] VITALS: O2SAT 98
[2021-07-28 19:26] VITALS: TEMP 98.7
[2021-07-28 19:30] VITALS: BP 113/51
== END 2021-07-28 18:51 | disposition home or self-care (01) ==
LOC: ER 14:00
DX: E86.0 Dehydration (principal); Z88.0 Allergy status to penicillin; Z88.1 Allergy status to other antibiotic agents; Z88.2 Allergy status to sulfonamides; Z88.5 Allergy status to narcotic agent; Z88.8 Allergy status to other drugs, medicaments and biological substances; Z20.822 Contact with and (suspected) exposure to COVID-19; Z91.041 Radiographic dye allergy status; Z91.048 Other nonmedicinal substance allergy status
CPT/HCPCS: 87040 ×2; 87088; 85025; 87086; 80048; 36415; 83605; 81015; 84145; 0240U; 74176; 71045; J7040; 93005

== ENCOUNTER 2021-10-05 08:56 | Emergency (ER) | payer OTHER ==
--- OUTSIDE RECORDS SUMMARY | 2021-10-05 09:04 | XMS REPORT | Continuity of Care Document ---
:1945 Author Organization [facility] t Address [address] [place] [address] Care Team Providers Name Role Phone Sandeep TRAN Primary Care Physician Josué Attending Clinician Unavailable Alicja Bishop Attending Clinician Unavailable Sandeep TRAN Attending Clinician Devon TRAN Attending Clinician CRISTIAN BONILLA Attending Clinician Unavailable HANNA Attending Clinician Unavailable Physician, Primary or Family Admitting Clinician Unavaildmitriy Moses Admitting Clinician Unavailable Alicja Bishop Admitting Clinician Unavailable CRISTIAN BONILLA Admitting Clinician Unavailable AJAY BOOKER Admitting Clinician Unavailable Payers Payer Name Policy Type Policy Number Effective Date Expiration Date S ource AETM AETM [id number] Problems Condition Condition Condition Status Onset Resolution Last Treating Co mments Source Name Details Category Date Date Treatment Clinician Date Cerebrovas Problem Active 2021-02-14 M emoria cular 01:02:39 l accident [place] (disorder) Cerebrovas cular accident (disorder) Active Problem 02/14/2021 [facility] Dizziness Problem Active 2021-02-14 Me moria (finding) 01:02:39 l [place] Dizziness (finding) Active Problem 02/14/2021 [facility] Hyperlipid Problem Active 2021-02-14 M emoria emia 01:02:39 l (disorder) Manny n Hyperlipid emia (disorder) Active Problem 02/14/2021 [facility] Right Problem Active 2021-02-14 Memor ia carotid 01:02:39 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) Active Problem 02/14/2021 [facility] Syncope Problem Active 2021-02-14 Aman omaira (disorder) 01:02:39 l Syncope Andrew (disorder) Active Problem 02/14/2021 [facility] Allergies, Adverse Reactions, Alerts Allergy Allergy Status Severity Reaction(s) Onset Inactive Treating Comm ents Source Name Type Date Date Clinician Iodinate DA Active U UNKNOWN [facility] d 08-02 Clear Contrast 00:00: [place] [facility] Sulfa DA Active MO RASH, EYE H[facility] (Sulfona SWELLING 08-02 Clear mide 00:00: [place] Antibiot 00 [facility] Kiron FA Active SV VOMITING H[facility] And 08-02 Clear Derivati 00:00: [place] [facility] doxycycl DA Active VA ABDOMINAL [facility] ine PAIN 08-02 Clear 00:00: [facility] clotrima DA Active MO UTI, RASH HCA zole 08-02 Clear 00:00: [place] [facility] clarithr DA Active VA RASH, SORE H[facility] omycin TONGUE 08-02 Clear 00:00: [facility] nabumeto DA Active [facility] ABDOMINAL [facility] ne PAIN 08-02 Clear 00:00: [facility] meperidi DA Active SV VOMITING HCA ne 08-02 Clear 00:00: [facility] fludroco DA Active SV SEVERE RASH, HC A rtisone SWELLING OF 08-02 Lilian r EYES 00:00: [facility] pregabal DA Active MO WATERY EYES HCA in 08-02 Clear 00:00: [facility] gabapent DA Active MO DIZZINESS,NA 2021- HC A in USEA,CONSTIP 08-02 Lilian r ATION 00:00: [facility] lansopra DA Active SV NAUSEA, HCA zole CHILLS 1-17 Clear 00:00: [facility] Penicill DA Active SV INJECTION 2020-07 H[facility] ins SITE 0-22 Clear SWELLING 00:00: [facility] Quinolon DA Active MO RASH, FACIAL 2020-07 HC A es SWELLING 0-22 Clear 00:00: [facility] Kiron FA Active MO VOMITING 2020-07 H[facility] And 0-22 Clear Derivati 00:00: [facility] iodine DA Active U UNKNOWN 2020-07 HCA 0-22 Clear 00:00: [facility] doxycycl DA Active VA ABDOMINAL 2020-07 [facility] ine PAIN 0-22 Clear 00:00: [facility] sulfapyr DA Active MO EYE LID 2020-07 [facility] idine SWELLING 0-22 Clear 00:00: [facility] clotrima DA Active MO UTI, RASH 2020-07 HCA zole 0-22 Clear 00:00: [facility] clarithr DA Active MO RASH, SORE 2020-07 H[facility] omycin TONGUE 0-22 Clear 00:00: [facility] meperidi DA Active VA VOMITING 2020-07 H[facility] ne 0-22 Clear 00:00: [facility] fludroco DA Active MO SEVERE RASH, 2020-07 HC A rtisone SWELLING OF 0-22 Lilian r EYES 00:00: [facility] rofecoxi DA Active MO EYE AND BODY 2020-07 HC A b SWELLING 0-22 Clear 00:00: [facility] pregabal DA Active VA WATERY EYES 2020-07 [facility] in 0-22 Clear 00:00: [facility] fluticas DA Active MO HARD TO 2020-07 H[facility] one BREATH 0-22 Clear furoate 00:00: [facility] vilanter DA Active MO HARD TO 2020-07 HCA ol BREATH 0-22 Clear 00:00: [facility] Penicill DA Active SV 2020-07 H[facility] ins 0-22 Clear 00:00: [facility] Quinolon DA Active MO 2020-07 H[facility] es 0-22 Clear 00:00: [facility] Kiron FA Active MO 2020-07 H[facility] And 0-22 Clear Derivati 00:00: [facility] ves 00 [facility] iodine DA Active U 2020-07 HCA 0-22 Clear 00:00: Wing 00 [facility] doxycycl DA Active VA 2020-07 HCA ine 0-22 Clear 00:00: Wing 00 [facility] sulfapyr DA Active MO 2020-07 HCA idine 0-22 Clear 00:00: Wing 00 [facility] clotrima DA Active MO 2020-07 HCA zole 0-22 Clear 00:00: Wing 00 [facility] clarithr DA Active MO 2020-07 HCA omycin 0-22 Clear 00:00: [facility] meperidi DA Active VA 2020-07 HCA ne 0-22 Clear 00:00: [facility] fludroco DA Active MO 2020-07 HCA rtisone 0-22 Clear 00:00: [facility] rofecoxi DA Active MO 2020-07 HCA b 0-22 Clear 00:00: [facility] pregabal DA Active VA 2020-07 HCA in 0-22 Clear 00:00: Wing 00 [facility] fluticas DA Active MO 2020-07 HCA one 0-22 Clear furoate 00:00: Wing 00 [facility] vilanter DA Active MO 2020-07 HCA ol 0-22 Clear 00:00: Wing 00 [facility] PREICID DA Active MO ABD PAIN, 2020-07 H[facility] LIGHT 0-22 Clear HEADEDNESS, 00:00: Wing NAUSEA 00 [facility] RALAFEN DA Active VA ABDOMINAL 2020-07 H[facility] PAIN 0-22 Clear 00:00: Wing 00 [facility] Penicill DA Active SV INJECTION 2020-07 HCA ins SITE 0-18 Clear SWELLING 00:00: Wing 00 [facility] iodine DA Active U UNKNOWN 2020-07 HCA 0-18 Clear 00:00: Wing 00 [facility] sulfapyr DA Active MO EYE LID 2020-07 HCA idine SWELLING 0-18 Clear 00:00: [facility] Penicill DA Active SV 2020-07 HCA ins 0-18 Clear 00:00: [facility] iodine DA Active U 2020-07 HCA 0-18 Clear 00:00: Wing 00 [facility] sulfapyr DA Active MO 2020-07 HCA idine 0-18 Clear 00:00: Wing 00 [facility] Prevacid Propensi Active 2019-0 [facility] ty to -30 College adverse 00:00: of reaction 00 Medicin s to e drug Nabumeto Propensi Active 0 [facility] ne ty to 08-15 College adverse 00:00: of reaction 00 Medicin s to e drug Sulfur Propensi Active 2019-0 [facility] ty to 30 College adverse 00:00: of reaction 00 Medicin s to e drug Citric Propensi Active 2019-0 [facility] Acid ty to 08-15 College Monohydr adverse 00:00: of ate reaction 00 Medicin s to e drug Demerol Propensi Active 2019-0 [facility] ty to 08-15 College adverse 00:00: of reaction 00 Medicin s to e drug FLUTICAS Allergy Active High Sob [facility] - FUROATE- 00:00: Medical VILANTER 00 Center OL ROFECOXI Allergy Active [facility]elling [facility] Medical [facility] Center CLARITHR Allergy Active Low Rash [facility] OMYCIN [facility] - 00:00: Medical 00 Center CLOTRIMA Allergy Active Low Rash 2018- [facility] ZOLE [facility] - 00:[facility]: Medical 00 Center FLUDROCO Allergy Active Low Swelling 2018- [facility] RTISONE [facility] - 00:[facility] Medical 00 Center PENICILL Allergy Active Low 2018- [facility] INS [facility] - 00:[facility]: Medical 00 Center QUINOLON Allergy Active Low Swelling [facility] - 00[facility] Medical 00 Center Clarithr Propensi Active Rash [facility] o[facility]cin ty to [facility] - adverse 00:00: Medical reaction 00 Center s Fluticas Propensi Active Shortness Of 2018- [facility] one ty to Breath 04-10 [facility] - Furoate- adverse 00:00: Medical Vilanter reaction 00 Center ol s Kiron Propensi Active Nausea And [address] [facility] ty to Vomiting 04-10 [facility] - Derivati adverse 00:00: Medical ves reaction 00 Center s SULFA Allergy Active Med Swelling [facility] (SULFONA 04-10 [facility] - MIDE 00:00: Medical ANTIBIOT 00 [facility]) Clotrima Propensi Active Rash uti [facility] [...] adverse 00:00: slurred Medical reaction 00 speech, [place] s constipat ion Iodine Propensi Active [facility] ty to 04-10 [facility] - Iodide adverse 00:00: Medical Containi reaction 00 Center s Products Pregabal Propensi Active Other (See [...] [facility] - mide 00:00: Medical Antibiot 00 [facility]) Rofecoxi Propensi Active Swelling [facility] b [...] 04-10 [facility] - 00:00: Medical 00 Center Fluticas Propensi Active Shortness Of [facility] one ty to Breath 04-10 [place] Furoate adverse 00:00: of reaction 00 Medicin s to e drug DOXYCYCL Allergy Active Nausea [facility] INE 04-10 [facility] - HYCLATE 00:00: Medical 00 [place] Gabapent Propensi Active Dizzy, [place] in ty to 04-10 nausea, [place] adverse 00:00: slurred of reaction 00 speech, Medicin s to constipat e drug ion Iodine Propensi Active [facility] ty to 04-10 [place] adverse 00:00: of reaction 00 Medicin s to e drug Penicill Propensi Active Mild Arm and [facility] ins ty to 04-10 shoulder [place] adverse 00:00: bruise of reaction 00 Medicin s to e drug Pregabal Propensi Active Watery [facility] in ty to 04-10 eyes and College adverse 00:00: warm of reaction 00 feeling Medicin s to stomach e drug Quinolon Propensi Active Swelling [facility] or es ty to 04-10 [place] adverse 00:00: of reaction 00 Medicin s to e drug Rofecoxi Propensi Active Swelling [facility] or b ty to 04-10 [place] adverse 00:00: of reaction 00 Medicin s to e drug Sulfa Propensi Active Swelling [facility] Antibiot ty to 04-10 [place] ics adverse 00:00: of reaction 00 Medicin s to e drug Bioflavo Propensi Active Nausea And Ba ylor noids ty to Vomiting 04-10 [place] adverse 00:00: of reaction 00 Medicin s to e drug Clarithr Propensi Active Rash [facility] omycin ty to 04-10 [place] adverse 00:00: of reaction 00 Medicin s to e drug Clotrima Propensi Active Rash uti [facility] zole ty to 04-10 [place] adverse 00:00: of reaction 00 Medicin s to e drug Doxycycl Propensi Active Swelling And red [facility] ine ty to 04-10 bumps on College adverse 00:00: tongue of reaction 00 Medicin s to e drug Doxycycl Propensi Active Nausea Only Abdomina l [facility] ine ty to 04-10 pain [place] Hyclate adverse 00:00: of reaction 00 Medicin s to e drug Fludroco Propensi Active Swelling [facility] or rtisone ty to 04-10 [place] adverse 00:00: of reaction 00 Medicin s to e drug penicill penicill Active Memori a in in l [place] Sulfur Sulfur Active Memoria l [place] iodine iodine Active Memoria l [facility] Social History Social Habit Start Date Stop Date Quantity Comments Source History of tobacco Current smoker [facility] of use Medicine History SDOH [facility] - Alcohol Std Drinks Medica l Center History SDOH [facility] - Alcohol Binge Medical Ila ter History SDOH [facility] - Alcohol Comment Medical C enter Social History 2020-10-15 2020-10-15 [facility] howard 17:19:17 17:19:17 Alcohol intake 2019-04-15 2019-04-[address] [facility] - 00:00:00 00:00:00 non-drinker of Medical Ce nter alcohol (finding) Tobacco use and 2019-04-10 2019-04-[address] [facility] Yumiko kes - exposure 00:00:00 00:00:00 Medical Center History SDOH 2019-04-10 2019-04-[address] [facility] - Alcohol Frequency 00:00:00 00:00:00 Medical Center Sex [birth year] [facility] 00:00:00 00:00:00 Hospital Smoking Status Start Date Stop Date Source Unknown if ever smoked [facility] Former smoker 2019-08-15 00:00:00 2019-08-15 00:00:00 [facility] Medications Ordered Filled Start Stop Current Ordering Indication Dosage Frequency Signature Comments Components Source Medication Medication Date Date Medication? Clinician (SIG) Name Name pantoprazol Yes 0 Memori a e 40 mg 7-29 Refill(s) l oral 16:06: Andrew enteric 00 coated tablet Aspirin Yes 81 mg, PO, Aman omaira 10-15 Daily, 0 l 16:45: Refill(s) Andrew 00 Promethazin Yes 5 mL, PO, M emoria e DM oral 10-15 Q6H, PRN l syrup 16:44: for cough, Manny n 00 # 120 mL, 0 Refill(s) Ventolin Yes 2 puff, Memori a HFA 10-15 INHALATION l 16:44: , QID, 0 [place] 00 Refill(s) Albuterol Yes 2.5 mg = 3 Me moria 0.83 MG/ML 4 mL, NEB, l Inhalant 16:44: Q6H, 0 Andrew Solution 00 Refill(s) Promethazin Yes 0 Memori a e 10-15 Refill(s) l 16:43: Andrew 00 Premarin Yes VAG, 0 Memoria Vaginal 10-15 Refill(s) l 16:42: Andrew 00 atorvastati Yes 40 mg, PO, Memoria n 10-15 Bedtime, 0 l 16:41: Refill(s) levocetiriz Yes See Memori a ine 10-15 Instructio l 16:40: ns, Andrew 00 1-2caps TID, 0 Refill(s) Metolazone Yes 5 mg, PO, Me moria 4-01 Q-M and l 16:39: Th, # 15 [place] 00 tab, 0 Refill(s) Spironolact Yes 50 mg, PO, Memoria one 10-15 Daily, # l 16:38: 60 tab, 0 [place] 00 Refill(s) glucosamine Yes 3{tbl} Take 3 Ba [facility] -chondroiti 1-30 Tabs by Tracey cadena n 500-400 20:35: mouth. of MG tablet 19 Medicin e Cholecalcif 2020-0 Yes 25mg Take 25 mg [facility] lisset (D3 1-30 by mouth. [facility] mickie VITAMIN OR) 20:34: of 48 Medicin e Docusate 2020-0 Yes Take by [facility] r Sodium 100 1-30 mouth. College MG TABS 20:33: of 54 Medicin e MISC 2020-0 Yes Take by [facility] NATURAL 1-30 mouth. [place] PRODUCTS OR 20:33: of 54 Medicin e albuterol 2020-0 Yes 2{puff} Inhale 2 B [facility] (VENTOLIN 1-30 Puffs by Raine corado HFA) 108 20:31: mouth as of (90 base) 45 needed for Medi kennedy mcg/act Wheezing. e inhaler ALBUTEROL 2020-0 Yes Inhale by Ba [facility] SULFATE 1-30 mouth. [place] INNOSE 20:31: 0.083 NEB of 45 Nephron - Medicin use 1 vial e in nebulizer 4 times a day as needed promethazin 2020-0 Yes 6.25mg Take 6.25 [facility] e 1-30 mg by [place] (PHENERGAN) 20:27: mouth as of 6.25 MG/5ML 52 needed. Medic in syrup e potassium 2020-0 Yes 20meq Take 20 Bayl or chloride 1-30 mEq by [place] (KDUR) 10 20:25: mouth 3 of MEQ tablet 17 times Medicin daily. e Levocetiriz 2020-0 Yes 5mg Take 5 mg B aylor ine 1-30 by mouth. [place] Dihydrochlo 20:25: of ride 5 MG 17 Medicin TABS e MAGNESIUM 2020-0 Yes 240mg Take 240 [facility] OR 1-30 mg by [place] 20:25: mouth two of 17 times Medicin daily. e metolazone 2020-0 Yes 5mg Take 5 mg Ba [facility] (ZAROXOLYN) 1-30 by mouth Donte ege 5 MG tablet 20:22: every of 11 Monday and Medicin . e atorvastati 2020-0 Yes 40mg Take 1 Tab [facility] n (LIPITOR) 1-30 by mouth Donte ege 40 MG 00:00: daily. of tablet 00 Medicin e PREMARIN 2018-[address] 0.65 [facility] vaginal 2-24 mg [place] cream 00:00: vaginally of 00 2 times Medicin weekly. e spironolact 2018-07 Yes TAKE 1 [facility]l or one 1-25 TABLET BY [place] (ALDACTONE) 00:00: MOUTH of 50 MG 00 [...] linnea 48 Center potassium 2018-07 Yes 10meq [id number] Take [address] chloride 0-09 [id number] mEq by Shoaib es - (KLOR-CON) 19:51: [...] I St -chondroiti 0-09 tablets by Yumiko reads - n 500-400 19:51: mouth 2 Medic al mg tablet 48 (two) Center times daily. aspirin EC 2018-07- No 81mg Take 81 mg [facility] 81 MG TBEC 0-06 10-06 by mouth. Col lege 00:00: 04:59 of 00 :00 Medicin e Coenzyme 2018-07- No 100mg Take 100 [facility] Q-10 100 MG 0-05 10-05 mg by Colleg e CAPS 00:00: 04:59 mouth of 00 :00 daily. Medicin e Vital Signs Vital Name Observation Time Observation Value Comments Source Systolic blood 2019-08-15 19:54:00 128 mm[Hg] [facility] pressure Medicine Diastolic blood 2019-08-15 19:54:00 57 mm[Hg] [facility] Medicine Heart rate 2019-08-15 19:54:00 67 /min [facility] Body height 2019-08-15 19:54:00 165.1 cm [facility] Body weight 2019-08-15 19:54:00 66.679 kg [facility] BMI 2019-08-15 19:54:00 24.46 kg/m2 [facility] Systolic (mm Hg) 2021-02-11 15:35:00 Aman rial [place] Diastolic (mm Hg) 2021-02-11 15:35:00 Mem orial [place] Heart Rate 2021-02-11 15:35:00 [facility] Respitory Rate 2021-02-11 15:35:00 Memori al [place] Height 2021-02-11 15:35:00 162.56 cm [facility] [place] Weight 2021-02-11 15:35:00 [facility] BMI Calculated 2021-02-11 15:35:00 Memori al [place] Systolic (mm Hg) 2020-11-12 15:12:00 Aman rial [place] Diastolic (mm Hg) 2020-11-12 15:12:00 Mem orial [place] Heart Rate 2020-11-12 15:12:00 [facility] Respitory Rate 2020-11-12 15:12:00 Memori al [place] Weight 2020-11-12 15:12:00 [facility] [place] Systolic (mm Hg) 2020-10-15 16:26:00 Aman rial [place] Diastolic (mm Hg) 2020-10-15 16:26:00 Mem orial [place] Heart Rate 2020-10-15 16:26:00 [facility] [place] Respitory Rate 2020-10-15 16:26:00 Memori al [place] Height 2020-10-15 16:26:00 160.02 cm [facility] Weight 2020-10-15 16:26:00 [facility] [place] BMI Calculated 2020-10-15 16:26:00 Memori al [facility] Procedures Procedure Date / Time Performing Clinician Source Performed [id number] 2021-08-04 00:00:00 MICHAEL [facility] [id number] 2021-08-04 00:00:00 MICHAEL [facility] [id number] 2021-08-04 00:00:00 MICHAEL [facility] [id number] 2021-05-09 00:00:00 SOPHIA [facility] CT HEART SCAN PLUS W 2021-03-03 15:31:21 [facility] PHYSICIAN ORDER US VASCULAR SCREENING 2021-03-03 15:13:36 [facility] HEART SCAN PLUS Hysterectomy [facility] [place] Cholecystectomy [facility] Breast biopsy and related Memori al Andrew procedures Appendectomy [facility] Plan of Care Planned Activity Planned Date [...] 00:00:00 (1 of 1 - Medical Center [id number] PCV13) [code = PNEUMOCOCCAL 65+ YRS (1 of 1 - [id number] PCV13)] Future Scheduled 1995-12-29 SHINGLES VACCINES (1 [...] es - Test 00:00:00 malignant neoplasm of [facility] colon (procedure) [code = 119109779] Future Scheduled COLON CANCER [facility] ege of Test SCREENING: COLONOSCOPY Medic ine [code = COLON CANCER SCREENING: COLONOSCOPY] Future Scheduled MAMMOGRAM ANNUAL [code B [facility] of Test = MAMMOGRAM ANNUAL] Medicine Future Scheduled TETANUS SHOT (ADULT) [facility] of Test [code = TETANUS SHOT Medicin e (ADULT)] Future Scheduled HEPATITIS C SCREENING Ba [facility] of Test [code = HEPATITIS C Medicine SCREENING] Future Scheduled FALL SCREEN [code = [facility] of Test FALL SCREEN] Medicine Future Scheduled OSTEOPOROSIS SCREENING B [facility] of Test [code = OSTEOPOROSIS Medicin e SCREENING] Future Scheduled PNEUMOVAX >=65 [facility] llege of Test (PPSV23) [code = Medicine PNEUMOVAX >=65 (PPSV23)] Future Scheduled PREVNAR >= 65 (PCV13) Ba or [place] of Test [code = PREVNAR >= 65 Medici ne (PCV13)] Future Scheduled FLU VACCINE > 6 MONTHS B [facility] of Test [code = FLU VACCINE > Medici ne 6 MONTHS] Future Scheduled COVID-19 VACCINE (1) Met [facility] Test [code = COVID-19 VACCINE (1)] Future Scheduled MEDICARE IPPE (WELCOME B [facility] of Test TO MEDICARE) [code = Medicin e MEDICARE IPPE (WELCOME TO MEDICARE)] Future Scheduled [facility] Test (procedure) [code = 724726565] Future Scheduled BREAST CANCER [facility] Test SCREENING [code = BREAST CANCER [...] Date/Time Type Type Clinicians Facility Department ID 2021-08-02 Inpatient EL Rasmason, HCACL OUTD [id number] [facility] 11:00:00 Devon [facility] 2021-05-05 Inpatient Raslan, HCACL OUTD [id number] [facility] 12:30:00 Devon [address] [facility] 2021-05-03 Inpatient Raslan, HCACL OUTD [id number] [facility] 10:30:00 Devon [address] [facility] 2021-08-04 2021-08-06 Inpatient EL Raslan, HCACL TELE [id number] [facility] 21:05:00 12:24:00 Devon [facility] 2021-08-04 2021-08-06 Inpatient EL Raslan, HCACL TELE [id number] [facility] 21:05:00 12:24:00 Devon 94 [facility] 2021-05-14 2021-05-14 Outpatient BERLIN SLADE [id number] [facility] 10:30:00 10:30:00 04 l Andrew 2021-05-07 2021-05-12 Inpatient EM Edna, HCACL MEDI.01 [id number] [facility] 22:34:00 14:15:00 Christjankier [address] Cl [facility] 2021-05-07 2021-05-12 Inpatient EM Edna, HCACL MEDI.01 [id number] [facility] 22:34:00 14:15:00 Christopher 86 Cl [facility] 2021-05-05 2021-05-05 Outpatient EILEEN Moses, JOSECL OUTD [id number] [facility] 05:25:00 05:25:00 Devon 50 [facility] 2021-03-03 2021-03-03 [facility], 1.2.840.1 [id number] Methodi 09:20:50 23:59:00 Encounter Garth [id number] 3.430.2.7 Hospit a .3.449125 l .8 2021-03-03 2021-03-03 [facility], 1.2.840.1 [id number] Methodi 09:15:00 09:19:00 Encounter Garth [id number] 3.430.2.7 Hospit a .3.233698 l .8 2021-03-03 2021-03-03 Travel 1.2.840.1 [id number] Methodi 00:00:00 00:00:[address] 3.430.2.7 0.2.7.3.698 Ho spita .3.236351 084.8 l .8 2021-02-11 2021-02-12 Outpatient nullFlavo MNA [id number] Memoria 15:15:00 04:59:59 r Neurology 03 l [place] 2021-02-08 2021-02-08 Travel 1.2.840.1 [id number] [id number] Methodi 00:00:00 00:00:[address] 3.430.2.7 0.2.7.3.698 Ho spita .3.895808 084.8 l .8 2021-02-03 2021-02-03 Transcribe [facility] 1.2.840.1 [id number] Methodi 00:00:00 00:00:00 Orders Garth [id number] 3.430.2.7 Hospit a .3.482942 l .8 2020-11-12 2020-11-13 Outpatient nullFlavo MNA [id number] Memoria 15:00:00 04:59:59 r Neurology 02 l Andrés Morales 2020-11-03 2020-11-04 Outpatient nullFlavo MNA [id number] Memoria 18:00:00 04:59:59 r Neurology 01 l Andrés Morales 2020-10-15 2020-10-16 Outpatient nullFlavo MNA [id number] Memoria 16:30:00 04:59:59 r Neurology 00 l Andrés Morales 2019-08-15 2019-08-15 Office LOGAN Osorio [id number] [facility] 13:47:41 15:50:19 Visit Michael AMBULATOR 350.1.13.21 College Y 0.2.7.2.686 of [id number] Medi kennedy 800 e 2019-04-24 2019-05-03 Inpatient 3 ROGER, KARLO CVA [id number] ENCSL 20:39:00 11:00:00 CRISTIAN [id number] Results Test Description Test Time Test Comments Results Result Comments Source HGB HCT 2021-08-06 08:45:00 Test Item Value Reference Range Interpretation Comme nts HEMOGLOBIN (test code = HGB) 8.9 g/dL 11.0-15.0 L HEMATOCRIT (test code = HCT) 27.4 % 33.0-45.0 L B-TYPE NATRIURETIC [id number] 15:10:00 Test Item Value Reference Range Interpretation Comments B-TYPE NATRIURETIC PEPTIDE (test 59.0 PG/ML 0-100 N code = BNP) BASIC METABOLIC [id number] 14:55:00 Test Item Value Reference Range Interpretation Comments SODIUM (test code = NA) 142 mEq/L 134-147 N POTASSIUM (test code = 3.4 mEq/L 3.4-5.0 N K) CHLORIDE (test code = 108 mEq/L 100-108 N CL) CARBON DIOXIDE (test 29 mEq/l 21-33 N code = CO2) ANION GAP (test code = 8 0-20 N GAP) GLUCOSE (test code = 94 mg/dL 70-110 N GLU) BLOOD UREA NITROGEN 28 mg/dL 7-18 H (test code = BUN) GLOMERULAR FILTRATION 43.8 70-80 L Units of measure = RATE (test code = GFR) ml/mi n/1.73 m2 CREATININE (test code = 1.2 mg/dL 0.6-1.3 N CREAT) CALCIUM (test code = 8.7 mg/dL 8.0-10.5 N CA) CBC W/AUTO [id number] 14:39:00 Test Item Value Reference Range Interpretation Comments WHITE BLOOD CELL (test code = 11.9 x10 3/uL 4.5-11.0 H WBC) RED BLOOD CELL (test code = 2.98 x10 6/uL 3.54-5.02 L RBC) HEMOGLOBIN (test code = HGB) 9.4 g/dL 11.0-15.0 L HEMATOCRIT (test code = HCT) 28.1 % 33.0-45.0 L MEAN CELL VOLUME (test code = 94.3 fL 81.0-99.0 N MCV) MEAN CELL HGB (test code = MCH) 31.5 pg 27.0-33.0 N MEAN CELL HGB CONCETRATION 33.5 g/dL 33.0-37.0 N (test code = MCHC) RED CELL DISTRIBUTION WIDTH CV 13.0 % 11.5-14.5 N (test code = RDW) RED CELL DISTRIBUTION WIDTH SD 44.7 fL 37.0-54.0 N (test code = RDW-SD) PLATELET COUNT (test code = 150 x10 3/uL 150-400 N PLT) MEAN PLATELET VOLUME (test code 10.4 fL 7.0-9.0 H = MPV) NEUTROPHIL % (test code = NT%) 73.1 % 56.0-77.0 N IMMATURE GRANULOCYTE % (test 0.8 % 0.0-2.0 N code = IG%) LYMPHOCYTE % (test code = LY%) 16.3 % 14.0-32.0 N MONOCYTE % (test code = MO%) 9.4 % 4.8-9.0 H EOSINOPHIL % (test code = EO%) 0.1 % 0.3-3.7 L BASOPHIL % (test code = BA%) 0.3 % 0.0-2.0 N NUCLEATED RBC % (test code = 0.0 % 0-0 N NRBC%) NEUTROPHIL # (test code = NT#) 8.69 x10 3/uL 2.0-7.6 H IMMATURE GRANULOCYTE # (test 0.09 x10 3/uL 0.00-0.03 H code = IG#) LYMPHOCYTE # (test code = LY#) 1.94 x10 3/uL 1.0-3.8 N MONOCYTE # (test code = MO#) 1.12 x10 3/uL 0.1-0.8 H EOSINOPHIL # (test code = EO#) 0.01 x10 3/uL 0.0-0.2 N BASOPHIL # (test code = BA#) 0.03 x10 3/uL 0.0-0.2 N NUCLEATED RBC # (test code = 0.00 x10 3/uL 0.0-0.1 N NRBC#) MANUAL DIFF REQUIRED (test code NO = MDIFF) [id number] 19:05:00 Test Item Value Reference Range Interpretation Comments ACT-ISTAT (test code 154 SEC 74-137 H Perform ed by certified = ACTI) laser operator at [facility] [id number] 17:59:00 Test Item Value Reference Range Interpretation Comments ACT-ISTAT (test code 178 SEC 74-137 H Perform ed by certified = ACTI) laser operator at [facility] [id number] 17:08:00 Test Item Value Reference Range Interpretation Comments ACT-ISTAT (test code 207 SEC 74-137 H Perform ed by certified = ACTI) laser operator at [facility] [id number] 16:04:00 Test Item Value Reference Range Interpretation Comments ACT-ISTAT (test code 243 SEC 74-137 H Perform ed by certified = ACTI) laser operator at [facility] [id number] 15:26:00 Test Item Value Reference Range Interpretation Comments ACT-ISTAT (test code 237 SEC 74-137 H Perform ed by certified = ACTI) laser operator at [facility] BASIC METABOLIC [id number] 14:58:00 Test Item Value Reference Range Interpretation Comments SODIUM (test code = NA) 138 mEq/L 134-147 N POTASSIUM (test code = 3.8 mEq/L 3.4-5.0 N K) CHLORIDE (test code = 104 mEq/L 100-108 N CL) CARBON DIOXIDE (test 28 mEq/l 21-33 N code = CO2) ANION GAP (test code = 10 0-20 N GAP) GLUCOSE (test code = 117 mg/dL 70-110 H GLU) BLOOD UREA NITROGEN 16 mg/dL 7-18 N (test code = BUN) GLOMERULAR FILTRATION 48.4 70-80 L Units of measure = RATE (test code = GFR) ml/mi n/1.73 m2 CREATININE (test code = 1.1 mg/dL 0.6-1.3 N CREAT) CALCIUM (test code = 9.6 mg/dL 8.0-10.5 N CA) PROTHROMBIN [id number] 14:51:00 Test Item Value Reference Range Interpretation Comments PROTHROMBIN TIME 11.8 SECONDS 9.3-12.9 N PATIENT (test code = [...] (t o prevent recurre nt infarct). CBC W/AUTO [id number] 14:46:00 Test Item Value Reference Range Interpretation Comments WHITE BLOOD CELL (test code = 5.1 x10 3/uL 4.5-11.0 N WBC) RED BLOOD CELL (test code = 3.96 x10 6/uL 3.54-5.02 N RBC) HEMOGLOBIN (test code = HGB) 12.2 g/dL 11.0-15.0 N HEMATOCRIT (test code = HCT) 37.7 % 33.0-45.0 N MEAN CELL VOLUME (test code = 95.2 fL 81.0-99.0 N MCV) MEAN CELL HGB (test code = MCH) 30.8 pg 27.0-33.0 N MEAN CELL HGB CONCETRATION 32.4 g/dL 33.0-37.0 L (test code = MCHC) RED CELL DISTRIBUTION WIDTH CV 12.8 % 11.5-14.5 N (test code = RDW) RED CELL DISTRIBUTION WIDTH SD 45.1 fL 37.0-54.0 N (test code = RDW-SD) PLATELET COUNT (test code = 149 x10 3/uL 150-400 L PLT) MEAN PLATELET VOLUME (test code 10.6 fL 7.0-9.0 H = MPV) NEUTROPHIL % (test code = NT%) 55.7 % 56.0-77.0 L IMMATURE GRANULOCYTE % (test 0.4 % 0.0-2.0 N code = IG%) LYMPHOCYTE % (test code = LY%) 13.6 % 14.0-32.0 L MONOCYTE % (test code = MO%) 9.5 % 4.8-9.0 H EOSINOPHIL % (test code = EO%) 20.0 % 0.3-3.7 H BASOPHIL % (test code = BA%) 0.8 % 0.0-2.0 N NUCLEATED RBC % (test code = 0.0 % 0-0 N NRBC%) NEUTROPHIL # (test code = NT#) 2.86 x10 3/uL 2.0-7.6 N IMMATURE GRANULOCYTE # (test 0.02 x10 3/uL 0.00-0.03 N code = IG#) LYMPHOCYTE # (test code = LY#) 0.70 x10 3/uL 1.0-3.8 L MONOCYTE # (test code = MO#) 0.49 x10 3/uL 0.1-0.8 N EOSINOPHIL # (test code = EO#) 1.03 x10 3/uL 0.0-0.2 H BASOPHIL # (test code = BA#) 0.04 x10 3/uL 0.0-0.2 N NUCLEATED RBC # (test code = 0.00 x10 3/uL 0.0-0.1 N NRBC#) MANUAL DIFF REQUIRED (test code NO = MDIFF) - XR CHEST 2 [id number] 00:00:00 [facility] 1945 Sex: F FAX: Devon Reese MD [phone] [place]: St: PRE Name: MOISE NAYAK [facility] : 1945 Age/S: 75/F [address] [place] [address] Unit #: [id number] Loc: [place] [address] Phys: Jen Moses Acct: [id number] [place]: [place] [facility] [place]: [phone] Exam Date: 08/02/2021 1340 FAX #: [phone] Reason: PREOP EXAMS: CPT CODE: [id number] XR CHEST 2 V 48660 PROCEDURE INFORMATION: Exam: XR Chest Exam date and time: 08/02/2021 12:55 PM Age: 75 years old Clinical indication: Screening exam; Pre-operative exam; Cardiovascular screening; Additional info: Preop TECHNIQUE: Imaging protocol: XR of the chest. Views: 2 views. PA and Lateral COMPARISON: DX XR CHEST 2 V 05/03/2021 11:44 AM FINDINGS: Lungs: No consolidation. Pleural spaces: No pleural effusion. Heart/Mediastinum: The heart and vascular markings are within limits of normal. There is atherosclerotic calcification of the aorta. Bones/joints: No gross acute findings. IMPRESSION: No acute cardiopulmonary findings at 1418 Reported and signed by: Jose Bonilla D.O. CC: Devon Moses MD Technologist: Sissy Rahman RT(R) Trnscrd Date/Time/By: 08/02/2021 (1079) : By: [email or web address] Orig Print D/T: S: 08/02/2021 (2541) PAGE 1 Signed ReportCBC W/AUTO [id number] 08:01:00 Test Item Value Reference Range Interpretation Comments WHITE BLOOD CELL (test code = 8.0 x10 3/uL 4.5-11.0 N WBC) RED BLOOD CELL (test code = 3.82 x10 6/uL 3.54-5.02 N RBC) HEMOGLOBIN (test code = HGB) 12.1 g/dL 11.0-15.0 N HEMATOCRIT (test code = HCT) 36.7 % 33.0-45.0 N MEAN CELL VOLUME (test code = 96.1 fL 81.0-99.0 N MCV) MEAN CELL HGB (test code = MCH) 31.7 pg 27.0-33.0 N MEAN CELL HGB CONCETRATION 33.0 g/dL 33.0-37.0 N (test code = MCHC) RED CELL DISTRIBUTION WIDTH CV 13.2 % 11.5-14.5 N (test code = RDW) RED CELL DISTRIBUTION WIDTH SD 45.5 fL 37.0-54.0 N (test code = RDW-SD) PLATELET COUNT (test code = 163 x10 3/uL 150-400 N PLT) MEAN PLATELET VOLUME (test code 10.8 fL 7.0-9.0 H = MPV) NEUTROPHIL % (test code = NT%) 59.1 % 56.0-77.0 N IMMATURE GRANULOCYTE % (test 0.4 % 0.0-2.0 N code = IG%) LYMPHOCYTE % (test code = LY%) 23.8 % 14.0-32.0 N MONOCYTE % (test code = MO%) 8.1 % 4.8-9.0 N EOSINOPHIL % (test code = EO%) 7.7 % 0.3-3.7 H BASOPHIL % (test code = BA%) 0.9 % 0.0-2.0 N NUCLEATED RBC % (test code = 0.0 % 0-0 N NRBC%) NEUTROPHIL # (test code = NT#) 4.76 x10 3/uL 2.0-7.6 N IMMATURE GRANULOCYTE # (test 0.03 x10 3/uL 0.00-0.03 N code = IG#) LYMPHOCYTE # (test code = LY#) 1.91 [...] (test code NO = MDIFF) BASIC METABOLIC [id number] 07:50:00 Test Item Value Reference Range Interpretation [...] code = 9.5 mg/dL 8.0-10.5 N CA) [id number] 07:50:00 Test Item Value Reference Range Interpretation Comments MAGNESIUM (test code = MAG) 1.70 mg/dL 1.80-2.40 L BASIC METABOLIC [id number] 07:53:00 Test Item Value Reference Range Interpretation [...] code = 8.6 mg/dL 8.0-10.5 N CA) [id number] 07:53:00 Test Item Value Reference Range Interpretation Comments MAGNESIUM (test code = MAG) 1.68 mg/dL 1.80-2.40 L CBC W/AUTO [id number] 07:46:00 Test Item Value Reference Range Interpretation [...] (test code NO = MDIFF) CBC W/AUTO [id number] 08:42:00 Test Item Value Reference Range Interpretation [...] x10 3/uL 0.0-0.1 N NRBC#) BASIC METABOLIC [id number] 08:13:00 Test Item Value Reference Range Interpretation [...] code = 8.9 mg/dL 8.0-10.5 N CA) [id number] 08:13:00 Test Item Value Reference Range Interpretation Comments MAGNESIUM (test code = MAG) 1.49 mg/dL 1.80-2.40 L GLUCOSE [id number] 12:42:00 Test Item Value Reference Range Interpretation Comments GLUCOSE BEDSIDE (test 113 MG/DL 70-110 H Perfor med by certified code = GLUBED) laser operator at [facility] HGB [id number] 11:54:00 Test Item Value Reference Range Interpretation Comments HEMOGLOBIN (test code = HGB) 12.9 g/dL 11.0-15.0 N HEMATOCRIT (test code = HCT) 36.8 % 33.0-45.0 N CBC W/AUTO [id number] 08:27:00 Test Item Value Reference Range Interpretation [...] (test code NO = MDIFF) BASIC METABOLIC [id number] 08:04:00 Test Item Value Reference Range Interpretation [...] code = 9.3 mg/dL 8.0-10.5 N CA) [id number] 08:04:00 Test Item Value Reference Range Interpretation Comments MAGNESIUM (test code = MAG) 1.44 mg/dL 1.80-2.40 L COVID 19 Asymptomatic IH [id number] 19:17:00 Test Item Value Reference Range Interpretation [...] performance dep ends on theamount of vi edgard (antigen) in th e sample.This amrit t has not been FDA cleare d or approved; the t est hasbeen authori zed by FDA under an Em ergency Use Authorizati on(EUA) for use by labo ratories certified under the CLIA thatmeet the requirements to perform moderate, high or waivedcomplexit y tests. HGB [id number] 11:49:00 Test Item Value Reference Range Interpretation [...] reported as: 35 .3 % CBC W/AUTO [id number] 11:45:00 Test Item Value Reference Range Interpretation [...] (test code NO = MDIFF) BASIC METABOLIC [id number] 07:46:00 Test Item Value Reference Range Interpretation [...] mg/dL 8.0-10.5 N CA) PLT RESPONSE TO [id number] 00:38:00 Test Item Value Reference Range Interpretation [...] be rejected by our instrumentation . HGB [id number] 00:35:00 Test Item Value Reference Range Interpretation Comments HEMOGLOBIN (test code = HGB) 11.5 g/dL 11.0-15.0 N HEMATOCRIT (test code = HCT) 33.3 % 33.0-45.0 N - CT ABD PELVIS W/O [id number] 00:00:00 [facility] 1945 Sex: F Name: [facility] : 1945 Age/S: 75 / F [address] [place], [place] [address] Unit #: [id number] Loc: [place] [address] Phys: David Chong MD Acct: [id number] Dis Date: Status: ADM IN PHONE #: [phone] Exam Date: 05/08/20211536 FAX #: [phone] Reason: abd pain, melena EXAMS: CPT CODE: [id number] CT ABD PELVIS W/O CONT 08438 PROCEDURE INFORMATION: Exam: CT Abdomen And Pelvis [...] 1 Signed Report (CONTINUED) Name: MOISE NAYAK [facility] : 1945 Age/S: 75 / F [address] [place] [address] Unit #: [id number] Loc: [place] [address] Phys: David Chong MD Acct: [id number] Dis Date: Status: ADM IN PHONE #: [phone] Exam Date: 05/08/2021 1537 FAX #: [phone] Reason: abd pain, melena EXAMS: CPT CODE: [id number] CT ABD PELVIS W/O CONT 93942 <Continued> IMPRESSION: 1. No acute CT abnormalities of the abdomen or pelvis are detected. SL:131 at 1706 Reported and signed by: Devin Freedman M.D. CC: David Chong MD Technologist:RT Martine(R)(CT) CTDI: DLP: Trnscb Date/Time: 05/08/2021 (1706) t.[email or web address].[email or web address] Orig Print D/T: S: 05/08/2021 (6355) PAGE 2 Signed ReportLACTIC ACID 2021-05-07 22:01:00 Test Item Value Reference Range Interpretation Comments LACTIC ACID (test code = LACT) 0.6 mmol/L 0.4-1.9 N BASIC METABOLIC [id number] 20:49:00 Test Item Value Reference Range Interpretation [...] 9.5 mg/dL 8.0-10.5 N CA) COMPREHENSIVE METABOLIC [id number] 20:49:00 Test Item Value Reference Range Interpretation [...] IUnit/L 20-125 N code = ALKP) PROTHROMBIN [id number] 20:43:00 Test Item Value Reference Range Interpretation [...] o prevent recurre nt infarct). CBC W/O [id number] 20:35:00 Test Item Value Reference Range Interpretation [...] fL 7.0-9.0 H = MPV) COAGULATION TIME [id number] 20:22:00 Test Item Value Reference Range Interpretation Comments COAGULATION TIME 261 SECONDS Performed b y ACTIVATED (test code = certi fied laser operator ACT) at [facility] COAGULATION TIME [id number] 20:22:00 Test Item Value Reference Range Interpretation Comments COAGULATION TIME 272 SECONDS Performed b y ACTIVATED (test code = certi fied laser operator ACT) at [facility] PROTHROMBIN [id number] 12:32:00 Test Item Value Reference Range Interpretation [...] o prevent recurre nt infarct). BASIC METABOLIC [id number] 12:16:00 Test Item Value Reference Range Interpretation [...] 9.4 mg/dL 8.0-10.5 N CA) CBC W/AUTO [id number] 12:03:00 Test Item Value Reference Range Interpretation [...] 0.0-0.1 N NRBC#) - XR CHEST 2 [id number] 00:00:00 [facility] 1945 Sex: F FAX: Devon Reese MD [phone] [place]: St: PRE Name: MOISE NAYAK [facility] : 1945 Age/S: 75/F [address] [place] [address] Unit #: [id number] Loc: [place] [address] Phys: Jen Moses Acct: [id number] Dis Date: [place] [facility] [place]: [phone] Exam Date: 05/03/2021 1213 FAX #: [phone] Reason: PREOP EXAMS: CPT CODE: [id number] XR CHEST 2 V 65486 PROCEDURE INFORMATION: Exam: XR Chest Exam date [...] By: [email or web address] Orig Print D/T: S: 05/03/2021 (2906) PAGE 1 Signed ReportCT Heart Scan Plus [...] of Atherosclerosis0-Normal 1-10 - Minimal extent of zexumetcoudegap16-505 - Mild extent of vhqkkhnzqastlgc524-040 - Moderate extent of atherosclerosis> 400 - [...] of Atherosclerosis0-Normal 1-10 - Minimal extent of ctwiwdvzfxucpyc59-001 - Mild extent of hgrwgyfptzztrja194-996 - Moderate extent of atherosclerosis> 400 - Severe extent of atherosclerosisRECOMMENDATION:A score of 1197 places the patient in the 90th percentile rank. That means 10% of the females at the ages f rom 71-75 have a higher calcium score. Intensive risk factor modification is indicated to prevent further progression (>0). Please contact your physician regarding these results.INCIDENTAL FINDINGS:[id number] vascular screening heart scan plus (self pay)2021-03-03 [...] Ankle (PT): 124 0.91Ankle (DP): 116 0.856OM1RAD_PS01 [facility]-18 07:21:00 Test Item Value Reference Range Interpretation Comments POTASSIUM (BEAKER) (test code = 2.9 meq/L 3.5-5.1 L 379) [id number] 07:21:00 Test Item Value Reference Range Interpretation Comments MAGNESIUM (BEAKER) (test code = 1.5 mg/dL 1.6-2.6 L 627) [id number] 06:36:00 Test Item Value Reference Range Interpretation Comments POTASSIUM (BEAKER) (test code = 3.5 meq/L 3.5-5.1 379) [id number] 06:36:00 Test Item Value Reference Range Interpretation Comments MAGNESIUM (BEAKER) (test code = 1.5 mg/dL 1.6-2.6 L 627) BASIC METABOLIC [id number] 10:13:00 Test Item Value Reference Range Interpretation [...] 1092) DATA TO CALCULA TE ESTIMATED GFR. [id number] 10:08:00 Test Item Value Reference Range Interpretation Comments MAGNESIUM (BEAKER) (test code = 1.4 mg/dL 1.6-2.6 L 627) [id number] 04:41:00 Test Item Value Reference Range Interpretation Comments MAGNESIUM (BEAKER) (test code = 1.4 mg/dL 1.6-2.6 L 627) BASIC METABOLIC [id number] 04:41:00 Test Item Value Reference Range Interpretation [...] ESTIMATED GFR. CBC W/PLT COUNT & AUTO [id number] 04:23:00 Test Item Value Reference Range Interpretation [...] (BEAKER) (test code = 2801) BASIC METABOLIC [id number] 06:29:00 Test Item Value Reference Range Interpretation [...] 1092) DATA TO CALCULA TE ESTIMATED GFR. [id number] 06:26:00 Test Item Value Reference Range Interpretation Comments MAGNESIUM (BEAKER) (test code = 1.4 mg/dL 1.6-2.6 L 627) POCT-GLUCOSE [id number] 04:52:00 Test Item Value Reference Range Interpretation Comments POC-GLUCOSE METER 103 mg/dL 70-110 TESTED AT [facility] 6720 (BEAKER) (test code = ADAMPAT [facility] 1538) [address] CT, BRAIN, WITHOUT [id number] 01:41:00Reason for exam:->Fall and hit head on [...] right MCA territory. Signed: Ana Maria Daniels Verified Date/Time: 04/18/2019 01:41:45 CT, CEREBRAL PERFUSION [id number] 13:14:00Reason for exam:->Assessment for collateral perfusionAnesthesia:->NoneFINAL REPORT [...] MCA territory is tissue at risk. Signed: Natalie JosephortVerified Date/Time: 04/17/2019 13:14:17 Electronically signed by: NATALIE JOSEPH MD on 1 01:14 PMCT, CAROTID, [id number] 13:27:00Reason for exam:->cva FINAL REPORT CLINICAL HISTORY: [...] the diminutive distal right vertebral artery. Bilateral superintendent landfill operations and branches are of normal caliber. The [...] the diminutive distal right vertebral artery. Bilateral superintendent landfill operations and branches are of normal caliber. The [...] vertebral artery is of normal caliber. Signed: Natalie Joseph [facility] HOSPITALeport Verified Date/Time: 04/15/2019 13:27:10 URIC [id number] 06:14:00 Test Item Value Reference Range Interpretation Comments URIC ACID (BEAKER) (test code = 3.8 mg/dL 2.6-7.2 773) BASIC METABOLIC [id number] 06:36:00 Test Item Value Reference Range Interpretation [...] TO CALCULA TE ESTIMATED GFR. BASIC METABOLIC [id number] 06:09:00 Test Item Value Reference Range Interpretation [...] ESTIMATED GFR. CBC W/PLT COUNT & AUTO [id number] 05:36:00 Test Item Value Reference Range Interpretation [...] (BEAKER) (test code = 2801) BASIC METABOLIC [id number] 06:05:00 Test Item Value Reference Range Interpretation [...] TE ESTIMATED GFR. RAD, ABDOMEN/KUB, 1 VIEW [id number] 02:48:00Reason for exam:->Corpak placement 0111 AMFINAL REPORT RAD, ABDOMEN/KUB, 1 VIEW AP [...] but conceivablymay represent vascular calcifications. Signed: Ronald Sanchez MDReport Verified Date/Time: 04/12/2019 02:48:37 RAD, ABDOMEN/KUB, 1 VIEW [id number] 00:53:00Reason for exam:- >Corpak placement verification. 0005 [...] normal limits. Cholecystectomy clips arepresent. Signed: Ronald Sanchez MDReport Verified Date/Time: 04/12/2019 00:53:54 MR, BRAIN, WITHOUT [id number] 00:10:00Reason for exam:->Ischemic Stroke Evaluationwith General Anesthesia [...] , on 04/12/2019 12:05 AM. Signed: Ronald Sanchez Verified Date/Time: 04/12/2019 00:10:30 MR, MRA, BRAIN, [...] , on 04/12/2019 12:05 AM. Signed: Ronald Sanchez MDReport Verified Date/Time: 04/12/2019 00:10:30 MR, MRA, NECK, WITHOUT IV [id number] 00:10:00Reason for exam:->Ischemic Stroke Evaluationwith general anesthesiaFINAL [...] , on 04/12/2019 12:05 AM. Signed: Ronald Sanchez MDReport Verified Date/Time: 04/12/2019 00:10:30 [id number] 13:25:00 Test Item Value Reference Range Interpretation Comments RPR SCREEN (BEAKER) (test code = Nonreactive Nonreactive 420) HEMOGLOBIN [id number] 10:35:00 Test Item Value Reference Range Interpretation Comments HEMOGLOBIN A1C (BEAKER) (test code = 5.5 % 4.3-6.1 368) COMPREHENSIVE METABOLIC [id number] 07:01:00 Test Item Value Reference Range Interpretation [...] 1092) DATA TO CALCULA TE ESTIMATED GFR. [id number] 06:29:00 Test Item Value Reference Range Interpretation Comments MAGNESIUM (BEAKER) (test code = 1.6 mg/dL 1.6-2.6 627) FastingLIPID [id number] 06:29:00 Test Item Value Reference Range Interpretation [...] 160-189 Very High >=190 FastingTSH/FREE T4 IF [id number] 06:22:00 Test Item Value Reference Range Interpretation Comments THYROID STIMULATING HORMONE 1.35 uIU/mL 0.35-4.94 (BEAKER) (test code = 772) CBC W/PLT COUNT & AUTO [id number] 06:01:00 Test Item Value Reference Range Interpretation [...] code = 2801) URINALYSIS WITH MICROSCOPIC IF [id number] 14:45:00 Test Item Value Reference Range Interpretation [...] (test code = 2795) VITAMIN B12 AND [id number] 14:43:00 Test Item Value Reference Range Interpretation Comments VITAMIN B12 (BEAKER) (test code = 1414 pg/mL 213-816 H 774) FOLATE (BEAKER) (test code = 362) > ng/mL >=7.0 TSH/FREE T4 IF [id number] 14:36:00 Test Item Value Reference Range Interpretation Comments THYROID STIMULATING HORMONE 1.54 uIU/mL 0.35-4.94 (BEAKER) (test code = 772) BASIC METABOLIC [id number] 13:34:00 Test Item Value Reference Range Interpretation [...] 1092) DATA TO CALCULA TE ESTIMATED GFR. [id number] 13:18:00 Test Item Value Reference Range Interpretation Comments MAGNESIUM (BEAKER) (test code = 1.4 mg/dL 1.6-2.6 L 627)
[2021-10-05] MEDS ORDERED: NA CHLORIDE 0.9% 500 ML ONE (09:28)
[2021-10-05 09:34] LABS: Absolute Lymphocytes (CBC) 1.3 K/uL (0.7-4.9); Hematocrit 37.8 % (36.0-45.0); Lymphocytes % 17.5 % (15.3-44.8); MPV 8.5 fL (7.6-11.3); RBC Red Blood Cell Count 4.17 M/uL (3.86-4.86)
[2021-10-05 09:41] LABS: Protime INR 1.04
[2021-10-05 09:52] LABS: Potassium 3.7 mmol/L (3.5-5.1)
[2021-10-05 10:02] LABS: Urine Blood Trace-intact (Negative); Urine Glucose Negative (Negative); Urine Protein Negative (Negative)
--- NOTE | 2021-10-05 10:05 | RAD REPORT ---
EXAM DESCRIPTION: CT - Head Brain Wo Cont - 10/05/2021 9:46 am CLINICAL HISTORY: head injury, anticoagulation, syncope COMPARISON: Ct Stroke Brain Wo Cont dated 04/10/2019; Chest Single View dated 07/28/2021 TECHNIQUE: Axial 5 mm thick images of the head were obtained without IV contrast. All CT scans are performed using dose optimization technique as appropriate and may include automated exposure control or mA/KV adjustment according to patient size. FINDINGS: No intracranial hemorrhage, mass, edema or shift of mid-line structures. No acute infarcti on in the cortical level. No cortical edema or sulcal effacement. Atrophy changes are present mild to moderate for age. Ventricles are prominent and may be slightly out of proportion to the amount of vo lume loss. Ventricles are not clearly different from the 2019 study. Chronic ischemic changes are see n in the cerebral white matter. There is focal old infarction change in the right frontal lobe that h as occurred since the 2019 study but is still of remote infarction. No abnormal extra-axial fluid col lections. Mastoid air cells are clear. Bilateral antral window changes to the maxillary sinuses. Small amount o f fluid and mucosal thickening seen in the left maxillary sinus. No globe or orbital content abnormal ity. No acute bony findings. IMPRESSION: No hemorrhage, mass or other acute intracranial finding. Atrophy changes are present zfsr-xy-nqqvhpcz in degree and not clearly different from 2019 imaging. V entricles do appear slightly out of proportion to the amount of volume loss but are also unchanged fr om 2019. 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 Chronic ischemic changes can mask nonhemorrhagic acute infarction. MR brain followup can be obtained if there is ongoing concern for acute ischemia.
[2021-10-05 10:17] LABS: Urine Bacteria NONE SEEN /HPF (<20); Urine RBC <5 /HPF (NONE SEEN)
--- NOTE | 2021-10-05 10:26 | RAD REPORT ---
EXAM DESCRIPTION: RAD - Wrist Left 3 View - 10/05/2021 9:41 am CLINICAL HISTORY: PAIN COMPARISON: No comparisons FINDINGS: No acute fractures seen and there is no dislocation. Patient has very severe degenerative change at the trapezium first metacarpal articulation. The joint space is effaced. The articular cont our of the trapezii M has a deformed, concave contour with advanced marginal spurring. There is sublu xation without dislocation of the first metacarpal. Radiocarpal joint space is narrowed slightly and there is widening of the scapholunate joint space. C alcifications are seen in the radiocarpal joint space and in the triangular fibrocartilage. Degenerat diane changes are present at the trapezium and capitate articulations with the trapezium and trapezoid bones. Soft tissue swelling is present over the dorsum of the wrist. Small 2-3 mm sized calcifications are s een along the dorsal margin of the second carpal row. This is probably part of overall advanced degen erative change. No history of trauma to indicate posttraumatic avulsion. 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 Two small 2-3 mm size calcifications along the dorsal margin of the second carpal row are present pro bably part of degenerative change rather than bone avulsion. Note fall or other trauma history noted.
--- NOTE | 2021-10-05 11:38 | ER ---
Nurse's Notes [facility] Name: Marla Campos Age: 75 yrs Sex: Female : 1945 Arrival Date: 10/05/2021 Time: 09:00 Bed 6 Private MD: Garth Hopkins V Diagnosis: Syncope;Unspecified superficial injury of unspecified part of head, initial encounter;Dehydration Presentation: 10/05 09:11 Chief complaint: Patient states: pt presented to ed reporting fall hitting right khoury forehead yesterday not sure of LOC, pt is on blood thinners. Care prior to arrival: None. Mechanism of Injury: Fall. Trauma event details: Injury occurred: October 04, 2021 Injury occurred at: 14:00. 09:11 Acuity: DANNY 3 khoury 09:11 Method Of Arrival: Ambulatory khoury 09:13 Coronavirus screen: Vaccine status: Patient reports receiving the 2nd dose of the covid khoury vaccine. Ebola Screen: Patient denies travel to an Ebola-affected area in the 21 days before illness onset. Initial Sepsis Screen: Does the patient meet any 2 criteria? No. Patient's initial sepsis screen is negative. Does the patient have a suspected source of infection? No. Patient's initial sepsis screen is negative. Risk Assessment: Do you want to hurt yourself or someone else? Patient reports no desire to harm self or others. Onset of symptoms was October 04, 2021 at 14:00. Trauma Activation: Consult Physician: ED Physician; Name: ; Notified At: ; Arrived At: Physician: General Surgeon; Name: ; Notified At: ; Arrived At: Physician: Radiology; Name: ; Notified At: ; Arrived At: Physician: Respiratory; Name: ; Notified At: ; Arrived At: Physician: Lab; Name: ; Notified At: ; Arrived At: Historical: - Allergies: 09:27 Biaxin; jh6 09:27 CITRIC ACID; jh6 09:27 Breo Ellipta; jh6 09:27 Clotrimazole-Betamethasone; jh6 09:27 Demerol; jh6 09:27 Doxycycline; jh6 09:27 Florinef Acetate; jh6 09:27 GABAPENTIN; jh6 09:27 Iodinated Contrast Media - IV Dye; jh6 09:27 Lyrica; jh6 09:27 PENICILLINS; jh6 09:27 Periostat; jh6 09:27 Prevacid; jh6 09:27 QUINOLONES; jh6 09:27 relafen; jh6 09:27 Sulfa (Sulfonamide Antibiotics); jh6 09:27 Vioxx; jh6 - PMHx: 09:27 Asthma; fluid retention; jh6 - PSHx: 09:27 angnioplasty; jh6 - Immunization history:: Adult Immunizations up to date, Client reports receiving the 2nd dose of the Covid vaccine. - Immunization history: Last tetanus immunization: - up to date. - Social history:: Smoking status: Patient denies any tobacco usage or history of. - Family history:: not pertinent. - Hospitalizations: : No recent hospitalization is reported. Screenin:28 Abuse screen: Denies threats or abuse. Nutritional screening: No deficits noted. 6 Tuberculosis screening: No symptoms or risk factors identified. Fall Risk Fall in past 12 months (25 points). IV access (20 points). Gait- Weak (10 pts.). Primary Survey: 09:15 NO uncontrolled hemorrhage observed. A: The patient is alert. Airway: patent. jg9 Breathing/Chest: Respiratory pattern: regular, Respiratory effort: spontaneous, unlabored. Circulation: Cardiac rhythm: sinus rhythm Pulses: palpable right radial artery and left radial artery. Disability Alert. Exposure/Environment: A warming method has been applied: A warm blanket has been provided to the patient. 12:00 Reassessment Airway Airway Patent Breathing/Chest Respiratory pattern Regular jg9 Circulation Heart rhythm Sinus rhythm Disability Alert. Secondary Survey: 10:00 HEENT: No deficits noted. Gastrointestinal: No deficits noted. : No deficits noted. jg9 Musculoskeletal: Swelling present in left hand. Assessment: 09:22 General: Appears in no apparent distress. Behavior is calm, cooperative. Pain:. jh6 11:31 Reassessment: No changes from previously documented assessment. Patient is alert, jh6 oriented x 3, equal unlabored respirations, skin warm/dry/pink. Patient states feeling better. Patient states symptoms have improved. Pain: Complains of pain in left hand Pain currently is 2 out of 10 on a pain scale. Vital Signs: 09:13 BP 167 / 56; Pulse 65; Resp 18; Temp 98.1; Pulse Ox 100% ; Weight 64.86 kg; Height 5 khoury ft. 5 in. (165.10 cm); 11:31 BP 149 / 77; Pulse 56; Resp 18; Pulse Ox 100% ; Pain 2/10; jh6 09:13 Body Mass Index 23.80 (64.86 kg, 165.10 cm) khoury Mehdi Coma Score: 09:15 Eye Response: spontaneous(4). Verbal Response: oriented(5). Motor Response: obeys jg9 commands(6). Total: 15. Trauma Score (Adult): 09:15 Eye Response: spontaneous(1); Verbal Response: oriented(1); Motor Response: obeys jg9 commands(2); Systolic BP: > 89 mm Hg(4); Respiratory Rate: 10 to 29 per min(4); Mehdi Score: 15; Trauma Score: 12 ED Course: 09:00 Patient arrived in ED. mr 09:00 Garth Hopkins MD is Private Physician. mr 09:13 Triage completed. khoury 09:15 Patient maintains SpO2 saturation greater than 95% on room air. Thermoregulation: warm jg9 blanket given to patient. 09:16 Willard Beach MD is Attending Physician. rn 09:22 Brenda iFnk RN is Primary Nurse. jg9 09:23 Inserted saline lock: 20 gauge in right antecubital area, using aseptic technique. jh6 09:28 Bed in low position. Call light in reach. Side rails up X 1. Side rails up X2. jh6 09:[address] jh6 09:30 Arm band placed on left wrist. jg9 09:31 EKG done. jh6 09:40 XRAY Wrist LEFT 3 view In Process Unspecified. EDMS 09:47 CT Head Brain wo Cont In Process Unspecified. EDMS 11:35 Garth Hopkins MD is Referral Physician. rn 12:30 No provider procedures requiring assistance completed. jg9 12:30 IV discontinued. jg9 Administered Medications: 09:26 Drug: NS 0.9% 500 ml Route: IV; Rate: bolus; Site: right antecubital; jh6 12:20 Follow up: IV Status: Completed infusion; IV Intake: 500ml jg9 Intake: 12:15 IV: 500ml; Total: 500ml. jg9 12:20 IV: 500ml; Total: 1000ml. jg9 Outcome: 11:38 Discharge ordered by . rn 12:29 Patient's length of stay in the Emergency Department was greater than 2 hours. awaiting jg9 resultsPatient's length of stay extended due to 12:30 Discharged to home ambulatory. jg9 12:30 Condition: improved 12:30 Discharge instructions given to patient, Instructed on discharge instructions, follow up and referral plans. Demonstrated understanding of instructions, follow-up care. 12:33 Patient left the ED. jg9 Signatures: Dispatcher [employer] MIMIME Zeinab Fields, MD MD gertrude Lamar Jennifer RN RN jh6 Brenda Fink RN RN jg9 Au-Stager, Carmenza RN RN khoury
--- NOTE | 2021-10-05 11:39 | EDPHYS ---
Physician Documentation [facility] Name: Marla Campos Age: 75 yrs Sex: Female : 1945 Arrival Date: 10/05/2021 Time: 09:00 Bed 6 Private MD: Garth Hopkins V ED Physician Willard Beach HPI: 10/05 09:35 This 75 yrs old Female presents to ER via Ambulatory with complaints of Fall Injury, rn syncope. 09:35 Details of fall: The patient fell from an upright position, while standing. Onset: The rn symptoms/episode began/occurred yesterday. Associated injuries: The patient sustained injury to the head. Associated injuries: The patient sustained left wrist. Severity of symptoms: At their worst the symptoms were mild, in the emergency department the symptoms are unchanged. The patient has experienced similar episodes in the past. The patient has not recently seen a physician. Pt reports standing in kitchen yesterday, was eating lunch a few hours later than normal, felt lightheaded and thinks passed out, reports thinks might have hit head and is on blood thinners. Also reports pain and injury to left wrist. Feels better today. Reports multiple episodes of syncope in past, used to "be more regular", but not happening as frequent now. Denies preceding chest pain/sob/abd pain. No recent nausea/vomiting/diarrhea. Does report increased urinary frequency.. Historical: - Allergies: 09:27 Biaxin; jh6 09:27 CITRIC ACID; jh6 09:27 Breo Ellipta; jh6 09:27 Clotrimazole-Betamethasone; jh6 09:27 Demerol; jh6 09:27 Doxycycline; jh6 09:27 Florinef Acetate; jh6 09:27 GABAPENTIN; jh6 09:27 Iodinated Contrast Media - IV Dye; jh6 09:27 Lyrica; jh6 09:27 PENICILLINS; jh6 09:27 Periostat; jh6 09:27 Prevacid; jh6 09:27 QUINOLONES; jh6 09:27 relafen; jh6 09:27 Sulfa (Sulfonamide Antibiotics); jh6 09:27 Vioxx; jh6 - PMHx: 09:27 Asthma; fluid retention; jh6 - PSHx: 09:27 angnioplasty; jh6 - Immunization history:: Adult Immunizations up to date, Client reports receiving the 2nd dose of the Covid vaccine. - Immunization history: Last tetanus immunization: - up to date. - Social history:: Smoking status: Patient denies any tobacco usage or history of. - Family history:: not pertinent. - Hospitalizations: : No recent hospitalization is reported. ROS: 09:35 Constitutional: Negative for fever, chills, and weight loss, Eyes: Negative for injury, rn pain, redness, and discharge, ENT: Negative for injury, pain, and discharge, Neck: Negative for injury, pain, and swelling, Cardiovascular: Negative for chest pain, palpitations, and edema, Respiratory: Negative for shortness of breath, cough, wheezing, and pleuritic chest pain, Abdomen/GI: Negative for abdominal pain, nausea, vomiting, diarrhea, and constipation, Back: Negative for injury and pain, : Negative for injury, bleeding, discharge, and swelling, MS/Extremity: + pain and injury to left wrist Skin: Negative for injury, rash, and discoloration, Neuro: Negative for numbness, tingling, and seizure. Exam: 09:34 ECG was reviewed by the Attending Physician. rn 09:35 Constitutional: This is a well developed, well nourished patient who is awake, alert, rn and in no acute distress. Head/Face: Normocephalic, atraumatic. Eyes: Periorbital areas with no swelling, redness, or edema. ENT: + dry MM Neck: No midline cervical tenderness Chest/axilla: Normal chest wall appearance and motion. Nontender with no deformity. No lesions are appreciated. Cardiovascular: Regular rate and rhythm. No pulse deficits. Respiratory: No increased work of breathing, no retractions or nasal flaring. Abdomen/GI: soft, non-tender Skin: Warm, dry MS/ Extremity: Pulses equal, no cyanosis. + ecchymosis and swelling to left wrist Neuro: Awake and alert, GCS 15, oriented to person, place, time, and situation. Cranial nerves II-XII grossly intact. Motor strength 4/5 in all extremities. Sensory grossly intact. Vital Signs: 09:13 BP 167 / 56; Pulse 65; Resp 18; Temp 98.1; Pulse Ox 100% ; Weight 64.86 kg; Height 5 khoury ft. 5 in. (165.10 cm); 11:31 BP 149 / 77; Pulse 56; Resp 18; Pulse Ox 100% ; Pain 2/10; jh6 09:13 Body Mass Index 23.80 (64.86 kg, 165.10 cm) khoury Mehdi Coma Score: 09:15 Eye Response: spontaneous(4). Verbal Response: oriented(5). Motor Response: obeys jg9 commands(6). Total: 15. Trauma Score (Adult): 09:15 Eye Response: spontaneous(1); Verbal Response: oriented(1); Motor Response: obeys jg9 commands(2); Systolic BP: > 89 mm Hg(4); Respiratory Rate: 10 to 29 per min(4); Mehdi Score: 15; Trauma Score: 12 MDM: 09:16 Patient medically screened. rn 11:35 Differential diagnosis: abrasion, closed head injury, contusion, fracture, sprain, rn strain. Data reviewed: vital signs, nurses notes, lab test result(s), EKG, radiologic studies, CT scan, plain films, and as a result, I will discharge patient. Counseling: I had a detailed discussion with the patient and/or guardian regarding: the historical points, exam findings, and any diagnostic results supporting the discharge/admit diagnosis, lab results, radiology results, the need for outpatient follow up, to return to the emergency department if symptoms worsen or persist or if there are any questions or concerns that arise at home. Response to treatment: the patient's symptoms have markedly improved after treatment, and as a result, I will discharge patient. Special discussion: Based on the patient's history, exam and DX evaluation, there is no indication for emergent intervention or inpatient TX. It is understood by the patient/guardian that if the SXs persist or worsen they need to return immediately for re-evaluation. I discussed with the patient/guardian in detail that at this point there is no indication for admission to the hospital. It is understood, however, that if the symptoms persist or worsen the patient needs to return immediately for re-evaluation. 10/05 09:21 Order name: Basic Metabolic Panel; Complete Time: 10:36 rn 10/05 09:21 Order name: CBC with Diff; Complete Time: 09:35 rn 10/05 09:21 Order name: Protime (+inr); Complete Time: 10:36 rn 10/05 09:21 Order name: Ptt, Activated; Complete Time: 10:36 rn 10/05 09:21 Order name: Urine Microscopic Only; Complete Time: 10:36 rn 10/05 10:02 Order name: Urine Dipstick-Ancillary EDMS 10/05 09:21 Order name: CT Head Brain wo Cont; Complete Time: 10:36 rn 10/05 09:21 Order name: EKG; Complete Time: 09:21 rn 10/05 09:21 Order name: Cardiac monitoring; Complete Time: 09:27 rn 10/05 09:21 Order name: EKG - Nurse/Tech; Complete Time: 09:27 rn 10/05 09:21 Order name: IV Saline Lock; Complete Time: 09:27 rn 10/05 09:21 Order name: Labs collected and sent; Complete Time: : rn 10/05 09:21 Order name: XRAY Wrist LEFT 3 view; Complete Time: 10:36 rn 10/05 09:21 Order name: O2 Per Protocol; Complete Time: : rn 10/05 09:21 Order name: O2 Sat Monitoring; Complete Time: : rn 10/05 09:21 Order name: Urine Dipstick-Ancillary (obtain specimen); Complete Time: 12:31 rn 10/05 11:43 Order name: Splint - Volar Wrist Splint: pre-formed arm board and liset wrap; Complete rn Time: 12:31 EC:34 Rate is 67 beats/min. Rhythm is regular. QRS [place] is Normal. [place] interval is normal. QRS rn interval is normal. QT interval is normal. No Q waves. T waves are Normal. No ST changes noted. Clinical impression: Normal ECG. Interpreted by me. Reviewed by me. Administered Medications: : Drug: NS 0.9% 500 ml Route: IV; Rate: bolus; Site: right antecubital; jh6 12:20 Follow up: IV Status: Completed infusion; IV Intake: 500ml jg9 Disposition Summary: 10/05/21 11:38 Discharge Ordered Location: Home rn Problem: new rn Symptoms: have improved rn Condition: Stable rn Diagnosis - Syncope rn - Unspecified superficial injury of unspecified part of head, initial encounter rn - Dehydration rn Followup: rn - With: Garth Hopkins MD - When: As needed - Reason: Recheck today's complaints, Re-evaluation by your physician Discharge Instructions: - Discharge Summary Sheet rn - Dehydration, Adult rn - Syncope rn Forms: - Medication Reconciliation Form rn - Thank You Letter rn - Antibiotic maternity nurse - Prescription Opioid Use rn Signatures: Dispatcher [employer] Willard Krishnan MD MD rn Hastedt, Jennifer, RN RN jh6 Brenda Fink, RN RN jg9
[2021-10-05 13:08] VITALS: TEMP 98.1; O2SAT 100
[2021-10-05 13:09] VITALS: BP 149/77
--- NOTE | 2021-10-07 07:48 | EKG ---
Test Date: 2021-10-05 Test Time: 09:26:39 Retail Area Manager: JT MEASUREMENT RESULTS: Intervals: Rate: 67 MD: 138 QRSD: 86 QT: 388 QTc: 409 Sharon: P: 49 MD: 138 QRS: 28 T: 47 INTERPRETIVE STATEMENTS: Normal sinus rhythm Normal ECG Compared to ECG 07/28/2021 15:00:12 No significant changes Electronically Signed On 10-07-21 07:41:57 CDT by Armando Simeon
== END 2021-10-05 12:33 | disposition home or self-care (01) ==
LOC: ER 08:56
DX: S09.90XA Unspecified injury of head, initial encounter (principal); E86.0 Dehydration; M25.532 Pain in left wrist; W18.30XA Fall on same level, unspecified, initial encounter; Z88.0 Allergy status to penicillin; Z88.1 Allergy status to other antibiotic agents; Z88.2 Allergy status to sulfonamides; Z88.5 Allergy status to narcotic agent; Z88.6 Allergy status to analgesic agent; Z88.8 Allergy status to other drugs, medicaments and biological substances; Z91.041 Radiographic dye allergy status; Z91.048 Other nonmedicinal substance allergy status
CPT/HCPCS: 96361; 93005; 85025; 80048; 36415; 85610; 85730; 70450; 73110; 96360; 99285; J7040; 81003; 81015

== ENCOUNTER 2021-10-24 17:30 | Emergency (ER) | payer OTHER ==
--- OUTSIDE RECORDS SUMMARY | 2021-10-24 17:33 | XMS REPORT | Continuity of Care Document ---
:1945 Author Organization [facility] Address [address] [place] [address] Care Team Providers Name Role Phone Unavailable Unavailable Unavailable Problems Condition Condition Condition Status Onset Resolution Last Treating Co mments Source Name Details Category Date Date Treatment Clinician Date Cerebrovas Problem Active 2021-02-14 M emoria cular 01:02:39 l accident [place] (disorder) Cerebrovas cular accident (disorder) Active Problem 02/14/2021 [facility] Dizziness Problem Active 2021-02-14 Me moria (finding) 01:02:39 l [place] Dizziness (finding) Active Problem 02/14/2021 [facility] Hyperlipid Problem Active 2021-02-14 M emoria emia 01:02:39 l (disorder) Manny n Hyperlipid emia (disorder) Active Problem 02/14/2021 [facility] Right Problem Active 2021-02-14 Memor ia carotid 01:02:39 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) Active Problem 02/14/2021 [facility] Syncope Problem Active 2021-02-14 Aman omaira (disorder) 01:02:39 l Syncope [place] (disorder) Active Problem 02/14/2021 [facility] Allergies, Adverse Reactions, Alerts Allergy Allergy Status Severity Reaction(s) Onset Inactive Treating Comm ents Source Name Type Date Date Clinician penicill penicill Active Memori a in in l [place] Sulfur Sulfur Active Memoria l [place] iodine iodine Active Memoria l [place] Social History Social Habit Start Date Stop Date Quantity Comments Source Social History 2020-10-15 2020-10-15 Quin[place] lawrence 17:19:17 17:19:17 Medications Ordered Filled Start Stop Current Ordering Indication Dosage Frequency Signature Comments Components Source Medication Medication Date Date Medication? Clinician (SIG) Name Name pantoprazol Yes 0 Memori a e 40 mg 7-29 Refill(s) l oral 16:06: [place] enteric 00 coated tablet Aspirin Yes 81 mg, PO, Aman omaira 10-15 Daily, 0 l 16:45: Refill(s) Promethazin Yes 5 mL, PO, M emoria e DM oral 10-15 Q6H, PRN l syrup 16:44: for cough, Manny n 00 # 120 mL, 0 Refill(s) Ventolin Yes 2 puff, Memori a HFA 10-15 INHALATION l 16:44: , QID, 0 [place] 00 Refill(s) Albuterol Yes 2.5 mg = 3 Me moria 0.83 MG/ML 10-15 mL, NEB, l Inhalant 16:44: Q6H, 0 Andrew Solution 00 Refill(s) Promethazin Yes 0 Memori a e 10-15 Refill(s) l 16:43: [place] 00 Premarin Yes VAG, 0 Memoria Vaginal 10-15 Refill(s) l 16:42: [place] 00 atorvastati Yes 40 mg, PO, Memoria n 10-15 Bedtime, 0 l 16:41: Refill(s) levocetiriz Yes See Memori a ine 10-15 Instructio l 16:40: ns, [place] 00 1-2caps TID, 0 Refill(s) Metolazone Yes 5 mg, PO, Me moria 10-15 Q-M and l 16:39: Th, # 15 [place] 00 tab, 0 Refill(s) Spironolact Yes 50 mg, PO, Memoria one 10-15 Daily, # l 16:38: 60 tab, 0 [place] 00 Refill(s) Vital Signs Vital Name Observation Time Observation Value Comments Source Systolic (mm Hg) 2021-02-11 15:35:00 Aman rial [place] Diastolic (mm Hg) 2021-02-11 15:35:00 [facility] magen [place] Heart Rate 2021-02-11 15:35:00 [facility] Respitory Rate 2021-02-11 15:35:00 Memori al [place] Height 2021-02-11 15:35:00 162.56 cm [facility] [place] Weight 2021-02-11 15:35:00 [facility] BMI Calculated 2021-02-11 15:35:00 Memori al [place] Systolic (mm Hg) 2020-11-12 15:12:00 Aman rial [place] Diastolic (mm Hg) 2020-11-12 15:12:00 Mem orial [place] Heart Rate 2020-11-12 15:12:00 [facility] Respitory Rate 2020-11-12 15:12:00 Memori al [place] Weight 2020-11-12 15:12:00 [facility] Systolic (mm Hg) 2020-10-15 16:26:00 Aman rial [place] Diastolic (mm Hg) 2020-10-15 16:26:00 Mem orial Andrew Heart Rate 2020-10-15 16:26:00 [facility] Respitory Rate 2020-10-15 16:26:00 Memori al [place] Height 2020-10-15 16:26:00 160.02 cm [facility] [place] Weight 2020-10-15 16:26:00 [facility] [place] BMI Calculated 2020-10-15 16:26:00 Memori al [place] Procedures Procedure Date / Time Performing Clinician Source Performed Hysterectomy [facility] [place] Cholecystectomy [facility] Breast biopsy and related Memori al [place] procedures Appendectomy [facility] [place] Encounters Start End Encounter Admission Attending Care Care Encounter Source Date/Time Date/Time Type Type Clinicians Facility Department ID 2021-05-14 2021-05-14 Outpatient [facility] [id number] Memoria 10:30:00 10:30:00 04 l [place] 2021-02-11 2021-02-12 Outpatient nullFlavo MNA [id number] Memoria 15:15:00 04:59:59 r Neurology 03 l [place] 2020-11-12 2020-11-13 Outpatient nullFlavo MNA [id number] Memoria 15:00:00 04:59:59 r Neurology 02 l [place] 2020-11-03 2020-11-04 Outpatient nullFlavo MNA [id number] Memoria 18:00:00 04:59:59 r Neurology 01 l [place] 2020-10-15 2020-10-16 Outpatient nullFlavo [facility] [id number] [place] 16:30:00 04:59:59 r Neurology 00 l Andrés [place] Results This patient has no known results.
--- NOTE | 2021-10-24 20:11 | RAD REPORT ---
EXAM DESCRIPTION: CT - Head Brain Wo Cont - 10/24/2021 8:02 pm CLINICAL HISTORY: WEAKNESS COMPARISON: Head Brain Wo Cont dated 10/05/2021; Ct Stroke Brain Wo Cont dated 04/10/2019 TECHNIQUE: All CT scans are performed using dose optimization technique as appropriate and may inclu de automated exposure control or mA/KV adjustment according to patient size. FINDINGS: No intracranial hemorrhage, hydrocephalus or extra-axial fluid collection.No areas of brai n edema or evidence of midline shift. Remote right frontal lobe infarct. Chronic small vessel ischemi c changes. Small air-fluid level left maxillary sinus. The paranasal sinuses and mastoids are clear. The calvarium is intact. IMPRESSION: No acute intracranial abnormality. Remote right frontal lobe infarct.
[2021-10-24 20:32] LABS: Absolute Lymphocytes (CBC) 0.3 K/uL (0.7-4.9); Hematocrit 36.7 % (36.0-45.0); Lymphocytes % 1.6 % (15.3-44.8); MPV 8.2 fL (7.6-11.3); RBC Red Blood Cell Count 4.11 M/uL (3.86-4.86)
[2021-10-24 20:36] LABS: Protime INR 1.06
[2021-10-24 20:51] LABS: Albumin 3.9 g/dL (3.4-5.0); Bilirubin Direct 0.1 mg/dL (0-0.2); Bilirubin Total 0.5 mg/dL (0.2-1.0); Protein, Total 7.2 g/dL (6.4-8.2)
[2021-10-24 20:53] LABS: Potassium 3.7 mmol/L (3.5-5.1); Troponin High Sensitivity 6.4 pg/mL (<58.9)
--- NOTE | 2021-10-24 21:14 | RAD REPORT ---
EXAM DESCRIPTION: RAD - Chest Single View - 10/24/2021 9:00 pm CLINICAL HISTORY: Weakness COMPARISON: Chest Single View dated 07/28/2021; Chest Single View dated 05/07/2021; Chest Pa And Lat (2 Views) dated 04/23/2021; Chest Single View dated 04/10/2019 FINDINGS: Lines: None. Lungs: No evidence of edema or pneumonia. Pleural: No significant pleural effusions or pneumothorax. Cardiac: The heart size is within normal limits. Bones: No acute fractures. Other: IMPRESSION: No acute cardiopulmonary disease.
--- NOTE | 2021-10-24 21:38 | RAD REPORT ---
EXAM DESCRIPTION: US - Lower Extremity Artery Uni Ltd - 10/24/2021 9:20 pm CLINICAL HISTORY: Leg pain COMPARISON: None FINDINGS: Hard plaque noted at the common femoral artery. The common femoral, superficial femoral and popliteal arteries in the left lower extremity demonstrat e biphasic waveforms The posterior tibial and dorsalis pedis arteries demonstrate biphasic waveforms in the left lower ext remity. IMPRESSION: Mild distal lower extremity arterial disease but no hemodynamically significant stenosis .
[2021-10-24] MEDS ORDERED: NA CHLORIDE 0.9% 1,000 ML ONE (21:39)
[2021-10-24 21:42] LABS: Blood Morphology Comment NOT SEEN (NOT SEEN); Platelet Estimate ADEQ; White Blood Cell Scan OK (OK)
[2021-10-24 22:14] LABS: Urine Blood Trace-lysed (Negative); Urine Glucose Negative (Negative); Urine Protein Trace (Negative); Urine Specific Gravity 1.025 (1.005-1.030)
[2021-10-24 23:16] LABS: Urine Bacteria 20-50 /HPF (<20); Urine RBC <5 /HPF (NONE SEEN)
[2021-10-24] MEDS ORDERED: TRAMADOL HCL 50 MG TAB ONE (23:22)
--- NOTE | 2021-10-24 23:45 | EDPHYS ---
Physician Documentation [facility] Name: Marla Campos Age: 75 yrs Sex: Female : 1945 Arrival Date: 10/24/2021 Time: 17:36 Bed 19 Private MD: ED Physician Josiah Hendricks HPI: 10/24 19:42 This 75 yrs old Female presents to ER via Wheelchair with complaints of Weakness. pm1 19:42 The patient presents to the emergency department with weakness of the entire body, pm1 generalized weakness, Left leg pain, gluteal area in particular due to hematoma from prior procedure. Onset: The symptoms/episode began/occurred Patient with reported left leg weakness since 2018 from stroke and has progressively gotten worse. Patient was seen by Dr. Moses last week for same left leg pain and has scheduled arterial stent placement on Monday at [facility] as a result of evaluation. Patient reports that pain and weakness are worse the past hour prior to arrival. Associated signs and symptoms: Pertinent positives: Patient reports lower abdominal cramping earlier this morning that she attributed to possible UTI. Patient took leftover Macrobid from prior UTIs today as a result, Pertinent negatives: fever. Severity of symptoms: in the emergency department the symptoms are unchanged. Current symptoms: Currently, the patient is not experiencing any symptoms. The patient has been recently seen by a physician: Dr. Moses for the same left leg pain and weakness. Historical: - Allergies: 17:43 Biaxin; ll1 17:43 Breo Ellipta; ll1 17:43 CITRIC ACID; ll1 17:43 Clotrimazole-Betamethasone; ll1 17:43 Demerol; ll1 17:43 Doxycycline; ll1 17:43 Florinef Acetate; ll1 17:43 GABAPENTIN; ll1 17:43 Iodinated Contrast Media - IV Dye; ll1 17:43 Lyrica; ll1 17:43 PENICILLINS; ll1 17:43 Periostat; ll1 17:43 Prevacid; ll1 17:43 QUINOLONES; ll1 17:43 relafen; ll1 17:43 Sulfa (Sulfonamide Antibiotics); ll1 17:43 Vioxx; ll1 - PMHx: 17:43 Asthma; fluid retention; ll1 - PSHx: 17:43 angnioplasty; ll1 - Immunization history:: Client reports receiving the 2nd dose of the Covid vaccine. - Social history:: Smoking status: Patient denies any tobacco usage or history of. ROS: 19:42 Constitutional: Negative for fever, chills, and weight loss, Cardiovascular: Negative pm1 for chest pain, palpitations, and edema, Respiratory: Negative for shortness of breath, cough, wheezing, and pleuritic chest pain, Abdomen/GI: Negative for abdominal pain, nausea, vomiting, diarrhea, and constipation, Back: Negative for injury and pain. 19:42 Skin: Negative for injury, rash, and discoloration, Neuro: Negative for headache, weakness, numbness, tingling, and seizure. 19:42 MS/extremity: Positive for Left leg weakness and pain, Negative for decreased range of motion, deformity. 19:42 All other systems are negative. Exam: 19:42 Constitutional: This is a well developed, well nourished patient who is awake, alert, pm1 and in no acute distress. Head/Face: Normocephalic, atraumatic. 19:42 Skin: Warm, dry with normal turgor. Normal color with no rashes, no lesions, and no evidence of cellulitis. 19:42 Eyes: Exam is negative for acute changes, Periorbital structures: appear normal, Extraocular movements: no acute changes, Conjunctiva: no acute changes. 19:42 ENT: Exam is negative for acute changes, Mouth: no acute changes, Lips: normal, moist, Oral mucosa: normal, pink and intact, moist. 19:42 Cardiovascular: Exam negative for acute changes, Rate: normal, Rhythm: regular, Pulses: no pulse deficits are appreciated, Heart sounds: normal, normal S1and S2. 19:42 Respiratory: Exam negative for the patient does not display signs of respiratory distress, Respirations: normal, Breath sounds: are clear throughout. 19:42 Musculoskeletal/extremity: Extremities: grossly normal except: Left inguinal area with small hematoma present that is tender for the patient. No noticeable left extremity deficits in strength, Pulses: noted to be 2+ in the right dorsalis pedis artery and left dorsalis pedis artery, the right foot and left foot Sensation intact. Calves: are non-tender, have equal circumference. 19:42 Neuro: Exam negative for acute changes, Orientation: is normal, Mentation: is normal, Motor: is normal, moves all fours, Sensation: no obvious gross deficits. Vital Signs: 17:59 BP 125 / 53; Pulse 82; Resp 16; Temp 98.8; Pulse Ox 97% on R/A; Weight 64.86 kg; Height ll1 5 ft. 3 in. (160.02 cm); Pain 10/10; 20:47 BP 185 / 125; Pulse 114; Resp 18; Pulse Ox 97% on R/A; ke1 23:01 BP 152 / 126; Pulse 73; Resp 18; Pulse Ox 99% on R/A; ke1 17:59 Body Mass Index 25.33 (64.86 kg, 160.02 cm) ll1 NIH Stroke Scale Scores: 17:50 NIHSS Score: 0 ke1 MDM: 19:18 Patient medically screened. pm1 23:43 Data reviewed: vital signs. Data interpreted: Pulse oximetry: on room air is 99 %. pm1 Interpretation: normal. Counseling: I had a detailed discussion with the patient and/or guardian regarding: the historical points, exam findings, and any diagnostic results supporting the discharge/admit diagnosis, lab results, radiology results, the need for outpatient follow up, to return to the emergency department if symptoms worsen or persist or if there are any questions or concerns that arise at home. 10/24 19:40 Order name: Basic Metabolic Panel; Complete Time: 21:01 pm10/24 19:40 Order name: CBC with Diff; Complete Time: 21:44 pm10/24 19:40 Order name: Troponin HS; Complete Time: 21: pm10/24 19:45 Order name: LFT's; Complete Time: 21: pm10/24 19:45 Order name: Magnesium; Complete Time: 21: pm10/24 19:45 Order name: NT PRO-BNP; Complete Time: 21:01 pm10/24 19:40 Order name: CT Head Brain wo Cont; Complete Time: 20:14 pm10/24 19:40 Order name: XRAY Chest (1 view); Complete Time: 21:24 pm10/24 19:45 Order name: PT-INR; Complete Time: 20:37 pm10/24 19:45 Order name: Lower Extremity Artery Uni Ltd US; Complete Time: 21:44 pm10/24 21:42 Order name: CBC Smear Scan; Complete Time: 21:44 EDMS 10/24 21:44 Order name: Urine Microscopic Only; Complete Time: 23:17 pm1 10/24 22:14 Order name: Urine Dipstick-Ancillary; Complete Time: 22:15 EDMS 10/24 23:19 Order name: Urine Culture [facility] 10/24 19:40 Order name: EKG; Complete Time: 19:40 pm1 10/24 19:40 Order name: Cardiac monitoring; Complete Time: 20:44 pm1 10/24 19:40 Order name: EKG - Nurse/Tech; Complete Time: 20:44 pm1 10/24 19:40 Order name: IV Saline Lock; Complete Time: 20:27 pm1 10/24 19:40 Order name: Labs collected and sent; Complete Time: 20:27 pm1 10/24 19:40 Order name: O2 Per Protocol; Complete Time: 20:27 pm1 10/24 19:40 Order name: O2 Sat Monitoring; Complete Time: 20:27 pm1 10/24 21:44 Order name: Urine Dipstick-Ancillary (obtain specimen); Complete Time: 22:49 pm1 Administered Medications: 21:40 Drug: NS 0.9% 500 ml Route: IV; Rate: bolus; Site: right antecubital; ke1 23:16 Drug: NS 0.9% 500 ml Route: IV; Rate: bolus; Site: right antecubital; ke1 23:22 Drug: traMADol 50 mg Route: PO; ke1 10/25 00:15 Follow up: Response: Marked relief of symptoms ke1 Disposition: 03:36 Co-signature as Attending Physician, Josiah Hendricks MD. [email or web address] Disposition Summary: 10/24/21 23:44 Discharge Ordered Location: Home pm1 Problem: new pm1 Symptoms: have improved pm1 Condition: Stable pm1 Diagnosis - Dehydration pm1 - Pain in left leg pm1 - UTI/ Urinary tract infection, site not specified pm1 Followup: pm1 - With: Emergency Department - When: As needed - Reason: Worsening of condition Followup: pm1 - With: Private Physician - When: 2 - 3 days - Reason: Recheck today's complaints, Continuance of care, Re-evaluation by your physician Discharge Instructions: - Discharge Summary Sheet pm1 - Dehydration, Adult pm1 - Urinary Tract Infection, Adult pm1 - Rehydration, Adult pm1 Forms: - Medication Reconciliation Form pm1 - Thank You Letter pm1 - Antibiotic Education pm1 - Prescription Opioid Use pm1 Prescriptions: - Macrobid 100 mg Oral Capsule - take 1 capsule by ORAL route every 12 hours for 10 days; 20 capsule; Refills: pm1 0, Product Selection Permitted - Tramadol 50 mg Oral Tablet - take 1 tablet by ORAL route every 8 hours as needed; 12 tablet; Refills: 0, pm1 Product Selection Permitted NIH Stroke Scale - NIH Stroke Score Date: 10/24/2021 Time: 17:50 Total Score = 0 1a. Level of Consciousness (LOC) - 0(Alert) 1b. Level of Consciousness (LOC) (Month \T\ Age) - 0(Both) 1c. LOC Commands (Open \T\ Closes Eyes/Agriscience Technology Instructor) - 0(Both) 2. Best Gaze (Lateral Gaze Paresis) - 0(Normal) 3. Visual Field Loss - 0(No visual loss) 4. Facial Palsy - 0(Normal) 5a. Left Arm: Motor (10-second hold) - 0(No drift) 5b. Right Arm: Motor (10-second hold) - 0(No drift) 6a. Left Leg: Motor (5-second hold - always test supine) - 0(No drift) 6b. Right Leg: Motor (5-second hold - always test supine) - 0(No drift) 7. Limb Ataxia (finger/nose \T\ heel/al - test with eyes open) - 0(Absent) 8. Sensory Loss (pinprick arms/legs/face) - 0(Normal) 9. Best Language: Aphasia (description/naming/reading) - 0(No aphasia) 10. Dysarthria (speech clarity - read or repeat words) - 0(Normal) 11. Extinction and Inattention (visual/tactile/auditory/spatial/personal) - 0(No abnormality) Initials: ke1 Signatures: Dispatcher [employer] Remigio Jaffe NP LICENSED PHYSICAL THERAPIST ASSISTANT pm1 Darrian Vides RN RN 1 Josiah Hendricks MD MD 7 Richard Ann RN RN ke1
--- NOTE | 2021-10-24 23:45 | ER ---
Nurse's Notes [facility] Name: Marla Campos Age: 75 yrs Sex: Female : 1945 Arrival Date: 10/24/2021 Time: 17:36 Bed 19 Private MD: Diagnosis: Dehydration;Pain in left leg;UTI/ Urinary tract infection, site not specified Presentation: 10/24 17:43 Ebola Screen: Patient denies travel to an Ebola-affected area in the 21 days before 1 illness onset. No acute neurological deficit is noted. Initial Sepsis Screen: Does the patient meet any 2 criteria? No. Patient's initial sepsis screen is negative. Does the patient have a suspected source of infection? No. Patient's initial sepsis screen is negative. Risk Assessment: Do you want to hurt yourself or someone else? Patient reports no desire to harm self or others. 17:43 Acuity: DANNY 3 ll1 17:43 Method Of Arrival: Wheelchair 1 17:44 Chief complaint: Patient states: Generalized weakness for days. Had episode of N/V upon 1 arrival to ED. Coronavirus screen: Client denies travel out of the [place] in the last 14 days. 17:59 Coronavirus screen: Vaccine status: Patient reports receiving the 2nd dose of the covid ll1 vaccine. fatigue, headache, muscle pain, Client presents with at least one sign or symptom that may indicate coronavirus-19. Standard/surgical mask placed on the client. Onset of symptoms was October 20, 2021. Triage Assessment: 17:44 General: Appears ill, Behavior is appropriate for age. Neuro: Reports weakness. GI: ll1 Reports nausea, vomiting. Stroke Activation: Symptom onset > 6 hours Physician: Stroke Attending; Name: ; Notified At: ; Arrived At: Physician: Chief Stroke Resident; Name: ; Notified At: ; Arrived At: Physician: Stroke Resident; Name: ; Notified At: ; Arrived At: Physician: ED Attending; Name: ; Notified At: ; Arrived At: Physician: ED Resident; Name: ; Notified At: ; Arrived At: Historical: - Allergies: 17:43 Biaxin; ll1 17:43 Breo Ellipta; ll1 17:43 CITRIC ACID; ll1 17:43 Clotrimazole-Betamethasone; ll1 17:43 Demerol; ll1 17:43 Doxycycline; ll1 17:43 Florinef Acetate; ll1 17:43 GABAPENTIN; ll1 17:43 Iodinated Contrast Media - IV Dye; ll1 17:43 Lyrica; ll1 17:43 PENICILLINS; ll1 17:43 Periostat; ll1 17:43 Prevacid; ll1 17:43 QUINOLONES; ll1 17:43 relafen; ll1 17:43 Sulfa (Sulfonamide Antibiotics); ll1 17:43 Vioxx; ll1 - PMHx: 17:43 Asthma; fluid retention; ll1 - PSHx: 17:43 angnioplasty; ll1 - Immunization history:: Client reports receiving the 2nd dose of the Covid vaccine. - Social history:: Smoking status: Patient denies any tobacco usage or history of. Screenin:29 Abuse screen: Denies threats or abuse. Nutritional screening: No deficits noted. ke1 Tuberculosis screening: No symptoms or risk factors identified. 22:55 VAN Screening: Arm Drift: Patient shows no arm weakness. Patient is VAN negative. ke1 23:00 Fall Risk No fall in past 12 months (0 pts). No secondary diagnosis (0 pts). IV access ke1 (20 points). Ambulatory Aid- None/Bed Rest/Nurse Assist (0 pts). Gait- Normal/Bed Rest/Wheelchair (0 pts) Mental Status- Oriented to own ability (0 pts). Total Levine Fall Scale indicates No Risk (0-24 pts). Assessment: 17:50 VAN Scoring: Arm Drift: Patients demonstrates NO arm weakness. Patient is VAN Negative. ke1 20:46 General: Appears in no apparent distress. Behavior is calm, cooperative. Pain: Denies ke1 pain. Neuro: Level of Consciousness is awake, alert, Oriented to person, place, time, situation. Cardiovascular: Rhythm is sinus rhythm. Respiratory: Respiratory effort is even, unlabored. GI: No deficits noted. : No deficits noted. EENT: No deficits noted. Parent/caregiver reports the patient having. Musculoskeletal: Capillary refill < 3 seconds, Range of motion: intact in all extremities. 22:00 Reassessment: Patient appears in no apparent distress at this time. No changes from ke1 previously documented assessment. 22:58 Reassessment: Patient able to void, straight cath no more needed at this time, GEOLOGICAL SURVEY FIELD ASSISTANT ke1 notified. Vital Signs: 17:59 BP 125 / 53; Pulse 82; Resp 16; Temp 98.8; Pulse Ox 97% on R/A; Weight 64.86 kg; Height ll1 5 ft. 3 in. (160.02 cm); Pain 10/10; 20:47 BP 185 / 125; Pulse 114; Resp 18; Pulse Ox 97% on R/A; ke1 23:01 BP 152 / 126; Pulse 73; Resp 18; Pulse Ox 99% on R/A; ke1 17:59 Body Mass Index 25.33 (64.86 kg, 160.02 cm) ll1 NIH Stroke Scale Scores: 17:50 NIHSS Score: 0 ke1 ED Course: 17:36 Patient arrived in ED. ds1 17:42 Arm band placed on. ll1 17:42 Bed in low position. Call light in reach. ke1 17:43 Triage completed. ll1 19:16 Richard Ann, LEONARDA is Primary Nurse. ke1 19:17 Remigio Clark NP is PHCP. pm1 19:17 Josiah Hendricks MD is Attending Physician. pm1 20:04 CT Head Brain wo Cont In Process Unspecified. EDMS 20:28 Inserted saline lock: 20 gauge in right antecubital area, using aseptic technique. ke1 21:02 XRAY Chest (1 view) In Process Unspecified. EDMS 21:22 Lower Extremity Artery Uni Ltd US In Process Unspecified. EDMS 23:49 No provider procedures requiring assistance completed. IV discontinued. ke1 Administered Medications: 21:40 Drug: NS 0.9% 500 ml Route: IV; Rate: bolus; Site: right antecubital; ke1 23:16 Drug: NS 0.9% 500 ml Route: IV; Rate: bolus; Site: right antecubital; ke1 23:22 Drug: traMADol 50 mg Route: PO; ke1 10/25 00:15 Follow up: Response: Marked relief of symptoms ke1 Outcome: 10/24 23:44 Discharge ordered by . pm1 23:49 Discharged to home via wheelchair. ke1 23:49 Condition: good 23:49 Discharge instructions given to patient. 10/25 00:16 Patient left the ED. ke1 NIH Stroke Scale - NIH Stroke Score Date: 10/24/2021 Time: 17:50 Total Score = 0 1a. Level of Consciousness (LOC) - 0(Alert) 1b. Level of Consciousness (LOC) (Month \T\ Age) - 0(Both) 1c. LOC Commands (Open \T\ Closes Eyes/Tag Maker) - 0(Both) 2. Best Gaze (Lateral Gaze Paresis) - 0(Normal) 3. Visual Field Loss - 0(No visual loss) 4. Facial Palsy - 0(Normal) 5a. Left Arm: Motor (10-second hold) - 0(No drift) 5b. Right Arm: Motor (10-second hold) - 0(No drift) 6a. Left Leg: Motor (5-second hold - always test supine) - 0(No drift) 6b. Right Leg: Motor (5-second hold - always test supine) - 0(No drift) 7. Limb Ataxia (finger/nose \T\ heel/al - test with eyes open) - 0(Absent) 8. Sensory Loss (pinprick arms/legs/face) - 0(Normal) 9. Best Language: Aphasia (description/naming/reading) - 0(No aphasia) 10. Dysarthria (speech clarity - read or repeat words) - 0(Normal) 11. Extinction and Inattention (visual/tactile/auditory/spatial/personal) - 0(No abnormality) Initials: ke1 Signatures: Dispatcher [employer] Luz William ds1 Remigio Clark, JORDAN GEOLOGICAL SURVEY FIELD ASSISTANT pm1 Darrian Vides, LEONARDA RN ll1 Richard Ann RN RN ke1
[2021-10-25 03:08] VITALS: TEMP 98.8
[2021-10-25 03:10] VITALS: BP 152/126; O2SAT 99
--- NOTE | 2021-10-25 09:37 | EKG ---
Test Date: 2021-10-24 Test Time: 20:34:45 Fur Blower: HUGO MEASUREMENT RESULTS: Intervals: Rate: 66 FL: 138 QRSD: 88 QT: 410 QTc: 429 [place]: P: 66 FL: 138 QRS: 35 T: 64 INTERPRETIVE STATEMENTS: Normal sinus rhythm Normal ECG Compared to ECG 10/05/2021 09:26:39 No significant changes Electronically Signed On 10-25-21 09:35:32 CDT by Armando Simeon
== END 2021-10-25 00:16 | disposition home or self-care (01) ==
LOC: ER 17:30
DX: E86.0 Dehydration (principal); N39.0 Urinary tract infection, site not specified; M79.605 Pain in left leg; Z88.0 Allergy status to penicillin; Z88.1 Allergy status to other antibiotic agents; Z88.2 Allergy status to sulfonamides; Z88.5 Allergy status to narcotic agent; Z88.6 Allergy status to analgesic agent; Z88.8 Allergy status to other drugs, medicaments and biological substances; Z91.041 Radiographic dye allergy status; Z91.048 Other nonmedicinal substance allergy status
CPT/HCPCS: 93005; 87088; 85025; 87086; 80048; 36415; 83735; 85610; 80076; 84484; 83880; 70450; 71045; 93926; 99284; J7030; 81003; 81015

== ENCOUNTER 2022-01-22 15:31 | Emergency (ER) | payer OTHER ==
--- NOTE | 2022-01-22 16:10 | ER ---
Nurse's Notes [facility] Name: Marla Campos Age: 76 yrs Sex: Female : 1945 Arrival Date: 01/22/2022 Time: 15:32 Bed 5 Private MD: Diagnosis: Encounter for change or removal of surgical wound dressing Presentation: 01/22 15:38 Chief complaint: Patient states: REPORTS BLEEDING FROM CAROTID REPAIR ON RIGHT NECK [facility] SINCE SCAB FELL OFF WOUND. SHE ADMITS TO SEEING DR. DEL TORO YESTERDAY AND HE PLACED A BANDAID ON IT. Coronavirus screen: Vaccine status: Patient reports receiving the 2nd dose of the covid vaccine. Client denies travel out of the [place] in the last 14 days. At this time, the client does not indicate any symptoms associated with coronavirus-19. Ebola Screen: Patient negative for fever greater than or equal to 101.5 degrees Fahrenheit, and additional compatible Ebola Virus Disease symptoms. Initial Sepsis Screen: Does the patient meet any 2 criteria? No. Patient's initial sepsis screen is negative. Does the patient have a suspected source of infection? No. Patient's initial sepsis screen is negative. Risk Assessment: Do you want to hurt yourself or someone else? Patient reports no desire to harm self or others. 15:38 Method Of Arrival: Ambulatory [facility] 15:38 Acuity: DANNY 3 [facility] Triage Assessment: 15:41 General: Appears in no apparent distress. Behavior is calm, cooperative, appropriate [facility] for age. Pain: Complains of pain in neck Pain currently is 3 out of 10 on a pain scale. Historical: - Allergies: 15:41 Biaxin; bh1 15:41 Breo Ellipta; bh1 15:41 CITRIC ACID; bh1 15:41 Clotrimazole-Betamethasone; bh1 15:41 Demerol; bh1 15:41 Doxycycline; bh1 15:41 Florinef Acetate; bh1 15:41 GABAPENTIN; bh1 15:41 Iodinated Contrast Media - IV Dye; bh1 15:41 Lyrica; bh1 15:41 PENICILLINS; bh1 15:41 Periostat; bh1 15:41 Prevacid; bh1 15:41 QUINOLONES; bh1 15:41 relafen; bh1 15:41 Sulfa (Sulfonamide Antibiotics); bh1 15:41 Vioxx; [facility] - PMHx: 15:41 Asthma; fluid retention; [facility] - PSHx: 15:41 angnioplasty; [facility] - Immunization history:: Adult Immunizations up to date. - Social history:: Smoking status: Patient denies any tobacco usage or history of. - Family history:: not pertinent. - Hospitalizations: : Patient was recently seen at. Screenin:45 Abuse screen: Denies threats or abuse. Denies injuries from another. Nutritional bp screening: No deficits noted. Tuberculosis screening: No symptoms or risk factors identified. Fall Risk None identified. Assessment: 15:45 General: SEE TRIAGE NOTE. bp 16:04 Reassessment: MD AT B/S FOR DRESSING. bp Vital Signs: 15:38 BP 136 / 102; Pulse 71; Resp 18; Temp 97.6(T); Pulse Ox 97% on R/A; Weight 64.86 kg; 1 Height 5 ft. 3 in. (160.02 cm); Pain 3/10; 16:03 BP 158 / 58; Pulse 67; Resp 16; Pulse Ox 97% ; bp 15:38 Body Mass Index 25.33 (64.86 kg, 160.02 cm) [facility] ED Course: 15:32 Patient arrived in ED. as 15:41 Triage completed. [facility] 15:42 Arm band placed on right wrist. [facility] 15:45 Patient has correct armband on for positive identification. Bed in low position. Call bp light in reach. Side rails up X2. 15:47 Willard Beach MD is Attending Physician. rn 15:56 Eliud Schmid, LEONARDA is Primary Nurse. bp 16:04 Wound care: to SURGICAL located on neck was dressed with SURGICEL, Patient tolerated bp well. 16:31 No provider procedures requiring assistance completed. Patient did not have IV access iw during this emergency room visit. Administered Medications: No medications were administered Medication: 15:45 VIS not applicable for this client. bp Outcome: 16:08 Discharge ordered by MD. rn 16:31 Discharged to home via wheelchair, with family. iw 16:31 Condition: good 16:31 Discharge instructions given to patient, family, Instructed on discharge instructions, follow up and referral plans. 16:32 Patient left the ED. iw Signatures: [place] Angela Irene, RN RN Willard Edouard MD MD rn Peltier, Brian, RN RN bp Daniela Llamas RN RN 1
--- NOTE | 2022-01-22 16:10 | EDPHYS ---
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 16:39 Pt reports bleeding from drain site right neck, had carotid surgery 1.5 weeks ago. Seen rn by pcp yesterday after scab came off and began to bleed, PCP placed band-aid on it. Continues to bleed but slowing down a lot. No pain. No fever. . Onset: The symptoms/episode began/occurred 2 day(s) ago. Severity of symptoms: At their worst the symptoms were mild in the emergency department the symptoms have improved. The patient has not experienced similar symptoms in the past. The patient has been recently seen by a physician:. Historical: - Allergies: 15:41 Biaxin; bh1 15:41 Breo Ellipta; bh1 15:41 CITRIC ACID; bh1 15:41 Clotrimazole-Betamethasone; bh1 15:41 Demerol; bh1 15:41 Doxycycline; bh1 15:41 Florinef Acetate; bh1 15:41 GABAPENTIN; bh1 15:41 Iodinated Contrast Media - IV Dye; bh1 15:41 Lyrica; bh1 15:41 PENICILLINS; bh1 15:41 Periostat; bh1 15:41 Prevacid; bh1 15:41 QUINOLONES; bh1 15:41 relafen; bh1 15:41 Sulfa (Sulfonamide Antibiotics); bh1 15:41 Vioxx; bh1 - PMHx: 15:41 Asthma; fluid retention; bh1 - PSHx: 15:41 angnioplasty; bh1 - Immunization history:: Adult Immunizations up to date. - Social history:: Smoking status: Patient denies any tobacco usage or history of. - Family history:: not pertinent. - Hospitalizations: : Patient was recently seen at. ROS: 16:39 Constitutional: Negative for fever, chills, and weight loss, Neck: + bleeding from rn drainage wound of neck Cardiovascular: Negative for chest pain, palpitations, and edema, Respiratory: Negative for shortness of breath, cough, wheezing, and pleuritic chest pain, Abdomen/GI: Negative for abdominal pain, nausea, vomiting, diarrhea, and constipation, MS/Extremity: Negative for injury and deformity, Skin: Negative for injury, rash, and discoloration, Neuro: Negative for headache, weakness, numbness, tingling, and seizure. Exam: 16:39 Constitutional: This is a well developed, well nourished patient who is awake, alert, rn and in no acute distress. Neck: Trachea midline, post-surgical wound overlying right carotid, very small amount of bleeding from inferior to wound, where drainage tube was. No erythema or fluctuance. Cardiovascular: Regular rate and rhythm. No pulse deficits. Respiratory: No increased work of breathing, no retractions or nasal flaring. Neuro: Awake and alert, GCS 15, oriented to person, place, time, and situation. Cranial nerves II-XII grossly intact. Motor strength 5/5 in all extremities. Sensory grossly intact. Cerebellar exam normal. Normal gait. Vital Signs: 15:38 BP 136 / 102; Pulse 71; Resp 18; Temp 97.6(T); Pulse Ox 97% on R/A; Weight 64.86 kg; bh1 Height 5 ft. 3 in. (160.02 cm); Pain 3/10; 16:03 BP 158 / 58; Pulse 67; Resp 16; Pulse Ox 97% ; bp 15:38 Body Mass Index 25.33 (64.86 kg, 160.02 cm) bh1 MDM: 15:47 Patient medically screened. rn 16:39 Differential Diagnosis post-surgical wound bleeding. Data reviewed: vital signs, nurses rn notes, and as a result, I will discharge patient. Counseling: I had a detailed discussion with the patient and/or guardian regarding: the historical points, exam findings, and any diagnostic results supporting the discharge/admit diagnosis, the need for outpatient follow up, to return to the emergency department if symptoms worsen or persist or if there are any questions or concerns that arise at home. Response to treatment: the patient's symptoms have markedly improved after treatment, and as a result, I will discharge patient. Special discussion: I discussed with the patient/guardian in detail that at this point there is no indication for admission to the hospital. It is understood, however, that if the symptoms persist or worsen the patient needs to return immediately for re-evaluation. Based on the history and exam findings, there is no indication for further emergent testing or inpatient evaluation. ED course: Cleaned wound, placed surgical to wound, with gauze and dressed it. contacted surgeon who agreed with management and will see them as f/u appt this next week.. Administered Medications: No medications were administered Disposition Summary: 01/22/22 16:08 Discharge Ordered Location: Home rn Problem: new rn Symptoms: have improved rn Condition: Stable rn Diagnosis - Encounter for change or removal of surgical wound dressing rn Followup: rn - With: Private Physician - When: 1 - 2 days - Reason: Recheck today's complaints, Re-evaluation by your physician Discharge Instructions: - Discharge Summary Sheet rn - How to Change Your Wound Dressing rn Forms: - Medication Reconciliation Form rn - Thank You Letter rn - Antibiotic rn endoscopy - Prescription Opioid Use rn Signatures: Willard Beach MD MD rn Hicks, Barbara, RN RN [facility]
[2022-01-22 16:37] VITALS: TEMP 97.6; O2SAT 97
[2022-01-22 16:38] VITALS: BP 158/58
== END 2022-01-22 16:32 | disposition home or self-care (01) ==
LOC: ER 15:31
DX: Z48.01 Encounter for change or removal of surgical wound dressing (principal)
CPT/HCPCS: 99283

== ENCOUNTER 2022-07-24 20:31 | Emergency (ER) | payer OTHER ==
--- OUTSIDE RECORDS SUMMARY | 2022-07-24 20:42 | XMS REPORT | Continuity of Care Document ---
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 Refill(s) Ventolin 2020-0 Yes 2 puff, Memori a HFA 4-01 INHALATION l 16:44: , QID, 0 Andrew 00 Refill(s) Albuterol 2020-0 Yes 2.5 mg = 3 Me moria 0.83 MG/ML 4-01 mL, NEB, l Inhalant 16:44: Q6H, 0 Andrew Solution 00 Refill(s) Albuterol 2020-0 Yes 2.5 mg = 3 Me moria 0.83 MG/ML 4-01 mL, NEB, l Inhalant 16:44: Q6H, 0 Andrew Solution 00 Refill(s) Promethazin 2020-0 Yes 5 mL, PO, M emoria e DM oral 4-01 Q6H, PRN l syrup 16:44: for cough, Manny n 00 # 120 mL, 0 Refill(s) Ventolin 2020-0 Yes 2 puff, Memori a HFA 4-01 INHALATION l 16:44: , QID, 0 Yoder 00 Refill(s) albuterol 2020-0 Yes 2.5 mg = 3 Me moria 0.083% 4-01 mL, NEB, l inhalation 16:44: Q6H, 0 Shari nn solution 00 Refill(s) Albuterol 2020-0 Yes 2.5 mg = 3 Me moria 0.83 MG/ML 4-01 mL, NEB, l Inhalant 16:44: Q6H, 0 Andrew Solution 00 Refill(s) Promethazin 2020-0 Yes 5 mL, PO, M emoria e DM oral 4-01 Q6H, PRN l syrup 16:44: for cough, Manny n 00 # 120 mL, 0 Refill(s) Ventolin 0 Yes 2 puff, Memori a HFA 4-01 INHALATION l 16:44: , QID, 0 Andrew 00 Refill(s) albuterol 2020-0 Yes 2.5 mg = 3 Me moria 0.083% 4-01 mL, NEB, l inhalation 16:44: Q6H, 0 Shari nn solution 00 Refill(s) Promethazin 2020-0 Yes 0 Memori a e 4-01 Refill(s) l 16:43: Andrew 00 promethazin 2020-0 Yes 0 Memori a e 4-01 Refill(s) l 16:43: Andrew 00 Promethazin 2020-0 Yes 0 Memori a e 4-01 Refill(s) l 16:43: promethazin 2020-0 Yes 0 Memori a e 4-01 Refill(s) l 16:43: Promethazin 2020-0 Yes 0 Memori a e 4-01 Refill(s) l 16:43: Promethazin 2020-0 Yes 0 Memori a e 4-01 Refill(s) l 16:43: promethazin 2020-0 Yes 0 Memori a e 4-01 Refill(s) l 16:43: Promethazin 2020-0 Yes 0 Memori a e 4-01 Refill(s) l 16:43: promethazin 2020-0 Yes 0 Memori a e 4-01 Refill(s) l 16:43: Premarin 2020-0 Yes VAG, 0 Memoria Vaginal 4-01 Refill(s) l 16:42: Premarin 2020-0 Yes VAG, 0 Memoria Vaginal 4-01 Refill(s) l 16:42: Premarin 2020-0 Yes VAG, 0 Memoria Vaginal 4-01 Refill(s) l 16:42: Premarin 2020-0 Yes VAG, 0 Memoria Vaginal 4-01 Refill(s) l 16:42: Premarin 2020-0 Yes VAG, 0 Memoria Vaginal 4-01 Refill(s) l 16:42: atorvastati 0 Yes 40 mg, PO, Memoria n 4-01 Bedtime, 0 l 16:41: Refill(s) atorvastati 0 Yes 40 mg, PO, Memoria n 4-01 Bedtime, 0 l 16:41: Refill(s) atorvastati 0 Yes 40 mg, PO, Memoria n 4-01 Bedtime, 0 l 16:41: Refill(s) atorvastati 0 Yes 40 mg, PO, Memoria n 4-01 Bedtime, 0 l 16:41: Refill(s) atorvastati 0 Yes 40 mg, PO, Memoria n 4-01 Bedtime, 0 l 16:41: Refill(s) Yoder atorvastati 0 Yes 40 mg, PO, Memoria n 4- Bedtime, 0 l 16:41: Refill(s) Andrew atorvastati 0 Yes 40 mg, PO, Memoria n 4 Bedtime, 0 l 16:41: Refill(s) Yoder atorvastati 0 Yes 40 mg, PO, Memoria n 4 Bedtime, 0 l 16:41: Refill(s) Andrew 00 atorvastati 0 Yes 40 mg, PO, Memoria n 4 Bedtime, 0 l 16:41: Refill(s) Yoder levocetiriz Yes See Memori a ine - Instructio l 16:40: ns, Yoder 00 1-2caps TID, 0 Refill(s) levocetiriz Yes See Memori a ine 10-15 Instructio l 16:40: ns, Andrew 00 1-2caps TID, 0 Refill(s) levocetiriz Yes See Memori a ine 10-15 Instructio l 16:40: ns, Andrew 00 1-2caps TID, 0 Refill(s) levocetiriz Yes See Memori a ine - Instructio l 16:40: ns, Andrew 00 1-2caps TID, 0 Refill(s) levocetiriz Yes See Memori a ine 10-15 Instructio l 16:40: ns, Yoder 00 1-2caps TID, 0 Refill(s) levocetiriz 0 Yes See Memori a ine - Instructio l 16:40: ns, Andrew 00 1-2caps TID, 0 Refill(s) levocetiriz 0 Yes See Memori a ine 4- Instructio l 16:40: ns, Yoder 00 1-2caps TID, 0 Refill(s) levocetiriz 0 Yes See Memori a ine 10-15 Instructio l 16:40: ns, Yoder 00 1-2caps TID, 0 Refill(s) levocetiriz 2020-0 Yes See Memori a ine 10-15 Instructio l 16:40: ns, Andrew 00 1-2caps TID, 0 Refill(s) Metolazone 2020-0 Yes 5 mg, PO, Me moria 10-15 Q-M and l 16:39: Th, # 15 Yoder 00 tab, 0 Refill(s) Metolazone 2020-0 Yes 5 mg, PO, Me moria 10-15 Q-M and l 16:39: Th, # 15 Andrew 00 tab, 0 Refill(s) Metolazone 2020-0 Yes 5 mg, PO, Me moria 10-15 Q-M and l 16:39: Th, # 15 Andrew 00 tab, 0 Refill(s) Metolazone 2020-0 Yes 5 mg, PO, Me moria 10-15 Q-M and l 16:39: Th, # 15 Yoder 00 tab, 0 Refill(s) Metolazone 2020-0 Yes 5 mg, PO, Me moria 10-15 Q-M and l 16:39: Th, # 15 Andrew 00 tab, 0 Refill(s) Spironolact 2020-0 Yes 50 mg, PO, Memoria one 10-15 Daily, # l 16:38: 60 tab, 0 Yoder 00 Refill(s) spironolact 2020-0 Yes 50 mg, PO, Memoria one 10-15 Daily, # l 16:38: 60 tab, 0 Andrew 00 Refill(s) Spironolact 2020-0 Yes 50 mg, PO, Memoria one 10-15 Daily, # l 16:38: 60 tab, 0 Andrew 00 Refill(s) spironolact 2020-0 Yes 50 mg, PO, Memoria one - Daily, # l 16:38: 60 tab, 0 Andrew 00 Refill(s) Spironolact 1-0 Yes 50 mg, PO, Memoria one - Daily, # l 16:38: 60 tab, 0 Andrew 00 Refill(s) Spironolact 1-0 Yes 50 mg, PO, Memoria one 10-15 Daily, # l 16:38: 60 tab, 0 Andrew 00 Refill(s) spironolact 0 Yes 50 mg, PO, Memoria one 4-01 Daily, # l 16:38: 60 tab, 0 Andrew 00 Refill(s) Spironolact 0 Yes 50 mg, PO, Memoria one 4-01 Daily, # l 16:38: 60 tab, 0 Andrew 00 Refill(s) spironolact Yes 50 mg, PO, Memoria one 4-01 Daily, # l 16:38: 60 tab, 0 Andrew 00 Refill(s) glucosamine 2020-0 Yes 3{tbl} Take 3 Ba [facility]lor -chondroiti 1-30 Tabs by [facility] n 500-400 20:35: mouth. of MG tablet 19 Medicin e Cholecalcif 2020-0 Yes 25mg Take 25 mg [facility] lisset (D3 1-30 by mouth. [facility] mickie VITAMIN OR) 20:34: of 48 Medicin e Docusate 2019-0 Yes Take by [facility] Sodium 100 1-30 mouth. [place] MG TABS 20:33: of 54 Medicin e MISC 2020-0 Yes Take by [facility] NATURAL 1-30 mouth. [place] PRODUCTS OR 20:33: of 54 Medicin e albuterol 2020-0 Yes 2{puff} Inhale 2 [facility] (VENTOLIN 1-30 Puffs by Raine corado HFA) 108 20:31: mouth as of (90 base) 45 needed for Medi kennedy mcg/act Wheezing. e inhaler ALBUTEROL 2020-0 Yes Inhale by [place] [facility]ro SULFATE 1-30 mouth. [place] INNOSE 20:31: 0.083 NEB of 45 Nephron - Medicin use 1 vial e in nebulizer 4 times a day as needed promethazin 2020-0 Yes 6.25mg Take 6.25 [facility] e 1-30 mg by [place] (PHENERGAN) 20:27: mouth as of 6.25 MG/5ML 52 needed. Medic in syrup e potassium 2020-0 Yes 20meq Take 20 [facility] or chloride 1-30 mEq by [place] (KDUR) 10 20:25: mouth 3 of MEQ tablet 17 times Medicin daily. e Levocetiriz 2020-0 Yes 5mg Take 5 mg [facility] ine 1-30 by mouth. [place] Dihydrochlo 20:25: of ride 5 MG 17 Medicin TABS e MAGNESIUM 2020-0 Yes 240mg Take 240 [place] pedro OR 1-30 mg by [place] 20:25: mouth two of 17 times Medicin daily. e metolazone Yes 5mg Take 5 mg [facility] (ZAROXOLYN) 1-30 by mouth Donte ege 5 MG tablet 20:22: every of 11 Monday and Medicin . e atorvastati Yes 40mg Take 1 Tab Chele n (LIPITOR) 1-30 by mouth Donte ege 40 MG 00:00: daily. of tablet 00 Medicin e PREMARIN 2018-[address] 0.65 [facility] vaginal 2-24 mg [facility] cream 00:00: vaginally of 00 2 times Medicin weekly. e spironolact 2018-07 Yes TAKE 1 [facility] one 1-25 TABLET BY [place] (ALDACTONE) 00:00: MOUTH of 50 MG 00 EVERY DAY Medicin tablet e atorvastati 2018-07 Yes TAKE 1 [facility] n (LIPITOR) 1-25 TABLET BY Col lege 20 MG 00:00: MOUTH of tablet 00 EVERY DAY Medicin e spironolact 2018-07 Yes 100mg QD Take [address] one 0-09 mg by [facility] (ALDACTONE) 19:51: mouth Medic al 100 MG 48 daily. Center tablet metOLazone 2018-07 Yes 5mg QD Take [address] [facility] (ZAROXOLYN) 0-09 by mouth Luke s 5 MG tablet 19:51: daily. Medi linnea 48 Center potassium 2018-07 Yes 10meq Q.[id number] Take [address] [facility] [address] chloride 0-09 [id number] mEq by Shoaib es (KLOR-CON) 19:51: 3D mouth 3 Medi linnea 10 MEQ CR 48 (three) Center tablet times daily. levocetiriz 2018-07 Yes 5mg QD Take [address] ine (XYZAL) 0-09 by mouth Luke s 5 MG tablet 19:51: every Medic al 48 evening. Center promethazin 2018-07 Yes 6.25mg Take 6.[address] [facility] [address] e 0-09 mg by [facility] (PHENERGAN) 19:51: mouth 4 Med ical 6.25 mg/5 48 (four) Center mL syrup times daily as needed for Nausea. ranitidine 2018-07 Yes 150mg Take [address] (ZANTAC) 0-09 mg by [place] 150 MG 19:51: mouth as Medical tablet 48 needed for Center Heartburn. magnesium 2018-07 Yes 150mg Take [address] gluconate 0-09 mg by L[facility] (MAGONATE) 19:51: mouth as Med ical 27.5 mg 48 needed Center magne- sium (leg (500 mg) cramps). tablet glucosamine 2018-07 Yes 3{tbl} Q.5D Take [address] -chondroiti 0-09 tablets by Yumiko carrion n 500-400 19:51: mouth 2 Medic al mg tablet 48 (two) Center times daily. spironolact 2018-07 Yes 100mg QD Take [address] one 0-09 mg by [facility] (ALDACTONE) 19:51: mouth Medic al 100 MG 48 daily. Center tablet metOLazone 2018-07 Yes 5mg QD Take [address] [facility] (ZAROXOLYN) 0-09 by mouth Luke s 5 MG tablet 19:51: daily. Medi linnea 48 Center potassium 2018-07 Yes 10meq Q.[id number] Take [address] [facility] [address] chloride 0-09 [id number] mEq by Shoaib es (KLOR-CON) 19:51: 3D mouth 3 Medi linnea 10 MEQ CR 48 (three) Center tablet times daily. levocetiriz 2018-07 Yes 5mg QD Take [address] ine (XYZAL) 0-09 by mouth Luke s 5 MG tablet 19:51: every Medic al 48 evening. Center promethazin 2018-07 Yes 6.25mg Take 6.[address] e 0-09 mg by [place] (PHENERGAN) 19:51: mouth 4 Med ical 6.25 mg/5 48 (four) Center mL syrup times daily as needed for Nausea. ranitidine 2018-07 Yes 150mg Take [address] (ZANTAC) 0-09 mg by [place] 150 MG 19:51: mouth as Medical tablet 48 needed for Center Heartburn. magnesium 2018-07 Yes 150mg Take [address] gluconate 0-09 mg by [place] (MAGONATE) 19:51: mouth as Med ical 27.5 mg 48 needed Center magne- sium (leg (500 mg) cramps). tablet glucosamine 2018-07 Yes 3{tbl} Q.5D Take [address] -chondroiti 0-09 tablets by Yumiko kes n 500-400 19:51: mouth 2 Medic al mg tablet 48 (two) Center times daily. spironolact 2018-07 Yes 100mg QD Take [address] one 0-09 mg by [place] (ALDACTONE) 19:51: mouth Medic al 100 MG 48 daily. Center tablet metOLazone 2018-07 Yes 5mg QD Take [address] [facility] (ZAROXOLYN) 0-09 by mouth Luke s 5 MG tablet 19:51: daily. Medi linnea 48 Center potassium 2018-07 Yes 10meq Q.[id number] Take [address] chloride 0-09 [id number] mEq by Shoaib wilkins (KLOR-CON) 19:51: 3D mouth 3 Medi linnea 10 MEQ CR 48 (three) Center tablet times daily. levocetiriz 2018-07 Yes 5mg QD Take [address] ine (XYZAL) 0-09 by mouth Luke s 5 MG tablet 19:51: every Medic al 48 evening. Center promethazin 2018-07 Yes 6.25mg Take 6.[address] e 0-09 mg by [place] (PHENERGAN) 19:51: mouth 4 Med ical 6.25 mg/5 48 (four) Center mL syrup times daily as needed for Nausea. ranitidine 2018-07 Yes 150mg Take [address] (ZANTAC) 0-09 mg by [place] 150 MG 19:51: mouth as Medical tablet 48 needed for Center Heartburn. magnesium 2018-07 Yes 150mg Take [address] gluconate 0-09 mg by [place] (MAGONATE) 19:51: mouth as Med ical 27.5 mg 48 needed Center magne- sium (leg (500 mg) cramps). tablet glucosamine 2018-07 Yes 3{tbl} Q.5D Take [address] -chondroiti 0-09 tablets by Yumiko kes n 500-400 19:51: mouth 2 Medic al mg tablet 48 (two) Center times daily. spironolact 2018-07 Yes 100mg QD Take [address] one 0-09 mg by [place] (ALDACTONE) 19:51: mouth Medic al 100 MG 48 daily. Center tablet metOLazone 2018-07 Yes 5mg QD Take [address] [facility] (ZAROXOLYN) 0-09 by mouth Luke s 5 MG tablet 19:51: daily. Medi linnea 48 Center potassium 2018-07 Yes 10meq Q.[id number] Take [address] chloride 0-09 [id number] mEq by Shoaib es (KLOR-CON) 19:51: 3D mouth 3 Medi linnea 10 MEQ CR 48 (three) Center tablet times daily. levocetiriz 2018-07 Yes 5mg QD Take [address] ine (XYZAL) 0-09 by mouth Luke s 5 MG tablet 19:51: every Medic al 48 evening. Center promethazin 2018-07 Yes 6.25mg Take 6.[address] e 0-09 mg by [place] (PHENERGAN) 19:51: mouth 4 Med ical 6.25 mg/5 48 (four) Center mL syrup times daily as needed for Nausea. ranitidine 2018-07 Yes 150mg Take [address] (ZANTAC) 0-09 mg by [place] 150 MG 19:51: mouth as Medical tablet 48 needed for Center Heartburn. magnesium 2018-07 Yes 150mg Take [address] gluconate 0-09 mg by [place] (MAGONATE) 19:51: mouth as Med ical 27.5 mg 48 needed Center magne- sium (leg (500 mg) cramps). tablet glucosamine 2018-07 Yes 3{tbl} Q.5D Take [address] -chondroiti 0-09 tablets by Yumiko carrion n 500-400 19:51: mouth 2 Medic al mg tablet 48 (two) Center times daily. spironolact 2018-07 Yes 100mg QD Take [address] one 0-09 mg by [place] (ALDACTONE) 19:51: mouth Medic al 100 MG 48 daily. Center tablet metOLazone 2018-07 Yes 5mg QD Take [address] (ZAROXOLYN) 0-09 by mouth Luke s 5 MG tablet 19:51: daily. Medi linnea 48 Center potassium 2018-07 Yes 10meq Q.[id number] Take [address] chloride 0-09 [id number] mEq by Shoaib es (KLOR-CON) 19:51: 3D mouth 3 Medi linnea 10 MEQ CR 48 (three) Center tablet times daily. levocetiriz 2018-07 Yes 5mg QD Take [address] ine (XYZAL) 0-09 by mouth Luke s 5 MG tablet 19:51: every Medic al 48 evening. Center promethazin 2018-07 Yes 6.25mg Take 6.[address] e 0-09 mg by [place] (PHENERGAN) 19:51: mouth 4 Med ical 6.25 mg/5 48 (four) Center mL syrup times daily as needed for Nausea. ranitidine 2018-07 Yes 150mg Take [address] (ZANTAC) 0-09 mg by [place] 150 MG 19:51: mouth as Medical tablet 48 needed for Center Heartburn. magnesium 2018-07 Yes 150mg Take [address] gluconate 0-09 mg by [place] (MAGONATE) 19:51: mouth as Med ical 27.5 mg 48 needed Center magne- sium (leg (500 mg) cramps). tablet glucosamine 2018-07 Yes 3{tbl} Q.5D Take [address] -chondroiti 0-09 tablets by Yumiko carrion n 500-400 19:51: mouth 2 Medic al mg tablet 48 (two) Center times daily. aspirin EC 2018-07- No 81mg Take 81 mg Chele 81 MG TBEC 0-06 10-06 by mouth. [facility] 00:00: 04:59 of 00 :00 Medicin e Coenzyme 2018-07 2020- No 100mg Take 100 [place] [facility]ro Q-10 100 MG 0-05 10-05 mg by [facility] CAPS 00:00: 04:59 mouth of 00 :00 daily. Medicin e Vital Signs Vital Name Observation Time Observation Value Comments Source Systolic blood 2019-08-15 19:54:00 128 mm[Hg] [facility] of pressure Medicine Diastolic blood 2019-08-15 19:54:00 57 mm[Hg] [facility] of pressure Medicine Heart rate 2019-08-15 19:54:00 67 /min [facility] Body height 2019-08-15 19:54:00 [facility] 2019-08-15 19:54:00 66.679 kg [facility] BMI 2019-08-15 19:54:00 24.46 kg/m2 [facility] Systolic (mm Hg) 2022-06-03 17:27:00 Aman rial Andrew Diastolic (mm Hg) 2022-06-03 17:27:00 Mem orial Andrew Heart Rate 2022-06-03 17:27:00 Memorial Yoder Height 2022-06-03 17:27:00 5 [ft_i] [facility] Andrew Weight 2022-06-03 17:27:00 [facility] Andrew BMI Calculated 2022-06-03 17:27:00 Memori al Yoder Respitory Rate 2022-04-11 15:12:00 Memori al Y[facility] Height 2022-04-11 15:12:00 162.56 cm [facility] Andrew Weight 2022-04-11 15:12:00 [facility] Yoder BMI Calculated 2022-04-11 15:12:00 Memori al Andrew Systolic (mm Hg) 2022-04-11 15:12:00 Aman rial Yoder Diastolic (mm Hg) 2022-04-11 15:12:00 Mem orial Andrew Heart Rate 2022-04-11 15:12:00 [facility] Yoder Systolic (mm Hg) 2021-10-07 15:45:00 Aman rial Yoder Diastolic (mm Hg) 2021-10-07 15:45:00 Mem orial Yoder Heart Rate 2021-10-07 15:45:00 Memorial Yoder Respitory Rate 2021-10-07 15:45:00 Memori al Yoder Height 2021-10-07 15:45:00 160.02 cm [facility] Andrew Weight 2021-10-07 15:45:00 [facility] Andrew BMI Calculated 2021-10-07 15:45:00 Memori al Andrew Systolic (mm Hg) 2021-05-14 15:45:00 Aman rial Andrew Diastolic (mm Hg) 2021-05-14 15:45:00 Mem orial Andrew Heart Rate 2021-05-14 15:45:00 Memorial Yoder Respitory Rate 2021-05-14 15:45:00 Memori al Yoder Height 2021-05-14 15:45:00 160.02 cm Memorial Anderw Weight 2021-05-14 15:45:00 [facility] Yoder BMI Calculated 2021-05-14 15:45:00 Memori al Andrew Systolic (mm Hg) 2021-02-11 15:35:00 Aman rial Andrew Diastolic (mm Hg) 2021-02-11 15:35:00 Mem orial Yoder Heart Rate 2021-02-11 15:35:00 Memorial Yoder Respitory Rate 2021-02-11 15:35:00 Memori al Yoder Height 2021-02-11 15:35:00 162.56 cm [facility] Yoder Weight 2021-02-11 15:35:00 [facility] Yoder BMI Calculated 2021-02-11 15:35:00 Memori al Andrew Systolic (mm Hg) 2020-11-12 15:12:00 Aman rial Andrew Diastolic (mm Hg) 2020-11-12 15:12:00 Mem orial Andrew Heart Rate 2020-11-12 15:12:00 [facility] Andrew Respitory Rate 2020-11-12 15:12:00 Memori al Yoder Weight 2020-11-12 15:12:00 [facility] Yoder Systolic (mm Hg) 2020-10-15 16:26:00 Aman rial Yoder Diastolic (mm Hg) 2020-10-15 16:26:00 Mem orial Yoder Heart Rate 2020-10-15 16:26:00 [facility] Yoder Respitory Rate 2020-10-15 16:26:00 Memori al Yoder Height 2020-10-15 16:26:00 160.02 cm [facility] Andrew Weight 2020-10-15 16:26:00 [facility] Yoder BMI Calculated 2020-10-15 16:26:00 Memori al Yoder Procedures Procedure Date / Time Performing Clinician Source Performed [id number] 2022-01-13 00:00:00 CHAAB.01 [facility] [id number] 2022-01-12 00:00:00 CHAAB.01 [facility] [id number] 2022-01-12 00:00:00 CHAAB.01 [facility] [id number] 2022-01-12 00:00:00 RASSA [facility] [id number] 2022-01-12 00:00:00 RASSA [facility] [id number] 2022-01-12 00:00:00 RASSA [facility] [id number] 2021-08-04 00:00:00 MICHAEL [facility] [id number] 2021-08-04 00:00:00 MICHAEL [facility] [id number] 2021-08-04 00:00:00 MICHAEL [facility] [id number] 2021-05-09 00:00:[address] [facility] [address] HEART SCAN PLUS W 2021-03-03 15:31:21 [facility] PHYSICIAN ORDER US VASCULAR SCREENING 2021-03-03 15:13:36 [facility] HEART SCAN PLUS Carotid [facility] endarterectomy<sup>1</sup> Hysterectomy [facility] Cholecystectomy [facility] Breast biopsy and related Memori [facility] procedures Appendectomy [facility] Plan of Care Planned Activity Planned Date Details Comments Source Future Scheduled 2022-07-21 COVID-19 VACCINE (#1) [facility] Test 13:14:09 [code = COVID-19 VACCINE (#1)] Future Scheduled 2022-07-21 Hepatitis C screening [facility] Test 13:14:09 (procedure) [code = [id number]] Future Scheduled 2022-07-21 COLONOSCOPY SCREENING [facility] Test 13:14:09 [code = COLONOSCOPY SCREENING] Future Scheduled 2022-07-21 SHINGLES VACCINES (1 [facility] Test 13:14:09 of 2) [code = SHINGLES VACCINES (1 of 2)] Future Scheduled 2022-07-21 65+ [facility]CCAL [facility] 13:14:09 VACCINE (1 - PCV) [code = 65+ PNEUMOCOCCAL VACCINE (1 - PCV)] Future Scheduled 2022-07-21 INFLUENZA VACCINE [facility] Test 13:14:09 [code = INFLUENZA VACCINE] Future Scheduled 2022-07-21 COVID-19 VACCINE (#1) [facility] Test 13:14:09 [code = COVID-19 VACCINE (#1)] Future Scheduled 2022-07-21 Hepatitis C screening [facility] Test 13:14:09 (procedure) [code = [id number]] Future Scheduled 2022-07-21 [facility] 13:14:09 [code = COLONOSCOPY SCREENING] Future Scheduled 2022-07-21 SHINGLES VACCINES (1 Met [facility] Hospital Test 13:14:09 of 2) [code = SHINGLES VACCINES (1 of 2)] Future Scheduled 2022-07-21 65+ [facility]AL [facility] 13:14:09 VACCINE (1 - PCV) [code = 65+ PNEUMOCOCCAL VACCINE (1 - PCV)] Future Scheduled 2022-07-21 INFLUENZA VACCINE [facility] Test 13:14:09 [code = INFLUENZA VACCINE] Future Scheduled 2022-07-03 COVID-19 VACCINE (#1) [facility] Test 09:16:22 [code = COVID-19 VACCINE (#1)] Future Scheduled 2022-07-03 Hepatitis C screening [facility] Test 09:16:22 (procedure) [code = [id number]] Future Scheduled 2022-07-03 COLONOSCOPY SCREENING [facility] Test 09:16:22 [code = COLONOSCOPY SCREENING] Future Scheduled 2022-07-03 SHINGLES VACCINES (1 Met [facility] Test 09:16:22 of 2) [code = SHINGLES VACCINES (1 of 2)] Future Scheduled 2022-07-03 65+ [facility]OCOCCAL [facility] 09:16:22 VACCINE (1 - PCV) [code = 65+ PNEUMOCOCCAL VACCINE (1 - PCV)] Future Scheduled 2022-07-03 INFLUENZA VACCINE [facility] Test 09:16:22 [code = INFLUENZA VACCINE] Future Scheduled 2022-07-03 COVID-19 VACCINE (#1) [facility] Test 09:16:22 [code = COVID-19 VACCINE (#1)] Future Scheduled 2022-07-03 Hepatitis C screening [facility] Test 09:16:22 (procedure) [code = [id number]] Future Scheduled 2022-07-03 COLONOSCOPY SCREENING [facility] Test 09:16:22 [code = COLONOSCOPY SCREENING] Future Scheduled 2022-07-03 SHINGLES VACCINES (1 Met [facility] Test 09:16:22 of 2) [code = SHINGLES VACCINES (1 of 2)] Future Scheduled 2022-07-03 65+ [facility]CCAL [facility] Test 09:16:22 VACCINE (1 - PCV) [code = 65+ PNEUMOCOCCAL VACCINE (1 - PCV)] Future Scheduled 2022-07-03 [facility]UENZA VACCINE [facility] Test 09:16:22 [code = INFLUENZA VACCINE] Future Scheduled 2021-03-17 INFLUENZA VACCINE (#1) [facility] Test 00:00:00 [code = INFLUENZA Medical Ce nter VACCINE (#1)] Future Scheduled 2020-07-[address] [facility] Test 00:00:00 (12+) [code = Medical Center DEPRESSION SCREENING (12+)] Future Scheduled 2020-07-17 FALLS RISK SCREENING [facility] Test 00:00:00 [code = FALLS RISK Medical C enter SCREENING] Future Scheduled 2019-07-[address] [facility] Test 00:00:00 WELLNESS (YEAR 2 or Medical Center FIRST YEAR if no IPPE) [code = MEDICARE ANNUAL WELLNESS (YEAR 2 or FIRST YEAR if no IPPE)] Future Scheduled 2010 PNEUMOCOCCAL 65+ YRS [facility] Test 00:00:00 (1 of 1 - Medical Center [id number]) [code = PNEUMOCOCCAL 65+ YRS (1 of 1 - [id number])] Future Scheduled 1995-12-29 SHINGLES VACCINES ([address] [facility] Test 00:00:00 of 2) [code = SHINGLES Medic al Center VACCINES (1 of 2)] Future Scheduled 1964 DTAP/TDAP/TD VACCINES [facility] 00:00:00 (1 - Tdap) [code = Medical C enter DTAP/TDAP/TD VACCINES (1 - Tdap)] Future Scheduled 1963-12-29 HEPATITIS C [facility]CRE[facility] [code = [facility]] Future Scheduled 1957 COVID-19 VACCINE (1) [facility] 00:00:00 [code = COVID-[address] VACCINE (1)] Future Scheduled [address] [facility]:00 malignant neoplasm of Medica l Center colon (procedure) [code = 313400660] Future Scheduled COLON CANCER [facility] ege of Test SCREENING: COLONOSCOPY Medic ine [code = COLON CANCER SCREENING: COLONOSCOPY] Future Scheduled MAMMOGRAM ANNUAL [code [facility] of Test = MAMMOGRAM ANNUAL] Medicine Future Scheduled TETANUS SHOT (ADULT) [employer] of Test [code = TETANUS SHOT Medicin e (ADULT)] Future Scheduled HEPATITIS C SCREENING [facility] of Test [code = HEPATITIS C Medicine SCREENING] Future Scheduled FALL SCREEN [code = [facility] of Test FALL SCREEN] Medicine Future Scheduled OSTEOPOROSIS SCREENING [facility] of Test [code = OSTEOPOROSIS Medicin e SCREENING] Future Scheduled PNEUMOVAX >=65 [facility] of Test (PPSV23) [code = Medicine PNEUMOVAX >=65 (PPSV23)] Future Scheduled PREVNAR >= 65 (PCV13) [facility] of Test [code = PREVNAR >= 65 Medici ne (PCV13)] Future Scheduled FLU VACCINE > 6 MONTHS [facility] of Test [code = FLU VACCINE > Medici ne 6 MONTHS] Future Scheduled MEDICARE IPPE (WELCOME [facility] TO MEDICARE) [code = Medicin e MEDICARE IPPE (WELCOME TO MEDICARE)] Future Scheduled COVID-19 VACCINE (1) [facility] Test [code = COVID-19 VACCINE (1)] Future Scheduled Hepatitis C screening Me [facility] Test (procedure) [code = 831757782] Future Scheduled BREAST CANCER [facility] Test SCREENING [code = BREAST CANCER SCREENING] Future Scheduled COLONOSCOPY SCREENING [facility] Test [code = COLONOSCOPY SCREENING] Future Scheduled SHINGLES VACCINES (#1) [facility] [code = SHINGLES VACCINES (#1)] Future Scheduled 65+ [facility]UMOCOCCAL [facility] VACCINE (1 of 1 - PPSV23) [code = 65+ PNEUMOCOCCAL VACCINE (1 of 1 - PPSV23)] Future Scheduled INFLUENZA [facility]ACCINE [facility] [code = INFLUENZA VACCINE] Encounters Start End Encounter Admission Attending Care Care Encounter Source Date/Time Date/Time Type Type Clinicians Facility Department ID 2022-12-20 2022-12-20 Outpatient BERLIN SLADE [id number] [facility] 10:30:00 10:30:00 08 todd Morales 2022-12-20 2022-12-20 Outpatient BERLIN SLADE [id number] [facility] 10:30:00 10:30:00 08 todd Morales 2022-08-03 2022-08-03 Outpatient BERLIN SLADE [id number] [facility] 11:15:00 11:15:00 10 todd Morales 2022-08-03 2022-08-03 Outpatient MHIE MHIE [id number] [facility] 11:15:00 11:15:00 10 todd Morales 2022-07-21 2022-07-22 Inpatient LORI Bowman INTE [id number] [facility] 05:12:00 11:48:[address] 2022-06-03 2022-06-04 Outpatient MHIE MNA [id number] [facility]oria 17:15:00 05:59:59 Neurology 09 todd [place] 2022-06-03 2022-06-04 Outpatient MHIE MNA [id number] [facility]oria 17:15:00 05:59:59 Neurology 09 todd [place] 2022-06-03 2022-06-03 Outpatient DANIA DerasSCHJESUS MISCHER [id number] 11:15:00 23:59:59 Merritt Vane Guerrero 2022-06-03 2022-06-03 Outpatient MHIE MHIE [id number] [facility] 11:15:00 11:15:00 09 todd [place] 2022-04-12 2022-04-12 Ambulatory nullFlavo MNA [id number] [facility] 15:00:00 15:00:00 Pre-Reg r Neurology 06 todd [place] 2022-04-12 2022-04-12 Ambulatory nullFlavo MNA [id number] Memoria 15:00:00 15:00:00 Pre-Reg r Neurology 06 todd Andrés Morales 2022-04-12 2022-04-12 Outpatient MHIE MHIE [id number] [facility] 10:00:00 10:00:00 06 todd [place] 2022-04-12 2022-04-12 Outpatient PATTI DerasAKSCHJESUS MISCHER [id number] 10:00:00 10:00:00 Merritt Sharri Guerrero 2022-04-11 2022-04-12 Outpatient nullFlavo MNA [id number] Memoria 15:00:00 04:59:59 r Neurology 07 todd Andrés Morales 2022-04-11 2022-04-12 Outpatient nullFlavo MNA [id number] [facility] 15:00:00 04:59:59 r Neurology 07 todd Morales 2022-04-11 2022-04-11 Outpatient Augusta MHMISCHER MHMISCHER [id number] 10:00:00 23:59:59 Merritt Porfirio Guerrero 2022-04-11 2022-04-11 Outpatient MHIE MHIE [id number] [facility]oria 10:00:00 10:00:00 07 todd Morales 2022-01-12 2022-01-14 Inpatient JOSE EsparzaCL INTE [id number] [facility] 18:19:00 15:56:00 Rj 45 [facility] 2022-01-12 2022-01-14 In[facility] [id number] [facility] 18:19:00 15:56:00 Rj 07786 [facility] 2021-11-03 2021-11-03 Inpatient JOSE RussellCL OUTD [id number] [facility] 04:56:00 04:56:00 Devon 31 [facility] 2021-10-07 2021-10-08 Outpatient nullFlavo MNA [id number] Memoria 15:30:00 04:59:59 r Neurology 05 todd Canoann 2021-10-07 2021-10-08 Outpatient nullFlavo MNA [id number] [facility] 15:30:00 04:59:59 r Neurology 05 todd Canoann 2021-10-07 2021-10-07 Outpatient Zoyajohan MHMISCHER MHMISCHER [id number] 10:30:00 23:59:59 Merritt Reyes Cesar 2021-10-07 2021-10-07 Outpatient MHIE MHIE [id number] Memoria 10:30:00 10:30:00 05 todd Morales 2021-08-04 2021-08-06 Inpatient JOSE RussellCL TELE [id number] [facility] 21:05:00 12:24:00 Devon 94 [facility] 2021-05-14 2021-05-15 Outpatient nullFlavo MNA [id number] Memoria 15:30:00 04:59:59 r Neurology 04 l Andrés Yoder 2021-05-14 2021-05-15 Outpatient nullFlavo MNA [id number] [facility] 15:30:00 04:59:59 r Neurology 04 l Andrés Canoann 2021-05-14 2021-05-14 [id number] 10:30:00 23:59:59 Merritt Gavi Guerrero 2021-05-14 2021-05-14 Outpatient MHIE IE [id number] [facility]oria 10:30:00 10:30:00 04 todd Yoder 2021-05-07 2021-05-12 Inpatient NATE Bishop, HCACL MEDI.01 [id number] [facility] 22:34:00 14:15:00 Christopher 86 Cl [facility] 2021-05-03 2021-05-05 Inpatient EILEEN Moses, [facility] [id number] [facility] 10:30:00 05:25:00 Devon 50 [facility] 2021-03-03 2021-03-03 [facility], 1.2.840.1 [id number] Methodi 09:20:50 23:59:00 Encounter Garth [address]78.1.[address] 3.430.2.7 Hospit a .3.262830 l .8 2021-03-03 2021-03-03 [facility], 1.2.840.1 [id number] Methodi 09:15:00 09:19:00 Encounter Garth [address]302.1.[address] 3.430.2.7 Hospit a .3.039832 l .8 2021-03-03 2021-03-03 Travel 1.2.840.1 1.2.617.270 [id number] Methodi 00:00:00 00:00:[address] 3.430.2.7 0.2.7.3.698 Ho spita .3.179227 084.8 l .8 2021-02-11 2021-02-12 Outpatient nullFlavo MNA [id number] Memoria 15:15:00 04:59:59 r Neurology 03 l [place] 2021-02-11 2021-02-12 Outpatient nullFlavo MNA [id number] Mem[facility] 15:15:00 04:59:59 r Neurology 03 l Andrés Morales 2021-02-11 2021-02-11 [id number] 10:15:00 23:59:59 Merritt 03 Cesar 2021-02-11 2021-02-11 Outpatient MHIE IE [id number] Memoria 10:15:00 10:15:00 03 todd Morales 2021-02-08 2021-02-08 Travel 1.2.840.1 1.2.017.054 [id number] Methodi 00:00:00 00:00:[address] 3.430.2.7 0.2.7.3.698 Ho spita .3.110549 084.8 l .8 2021-02-03 2021-02-03 Transcribe Sandeep, 1.2.840.1 [id number] Methodi 00:00:00 00:00:[address]1.[address] 3.430.2.7 Hospit a .3.637760 l .8 2020-11-12 2020-11-13 Outpatient nullFlavo MNA [id number] Memoria 15:00:00 04:59:59 r Neurology 02 l Andrés Morales 2020-11-12 2020-11-13 Outpatient nullFlavo MNA [id number] Memoria 15:00:00 04:59:59 r Neurology 02 l Andrés Morales 2020-11-12 2020-11-12 [id number] 10:00:00 23:59:59 Merritt Cesar 2020-11-12 2020-11-12 Outpatient MHIE IE [id number] Memoria 10:00:00 10:00:00 02 todd Morales 2020-11-03 2020-11-04 Outpatient nullFlavo MNA [id number] Memoria 18:00:00 04:59:59 r Neurology 01 l Andrés Morales 2020-11-03 2020-11-04 Outpatient nullFlavo MNA [id number] Memoria 18:00:00 04:59:59 r Neurology 01 l Andrés Morales 2020-11-03 2020-11-03 Outpatient CAMILA Deras JERRYSCHJESUS [id number] 13:00:00 23:59:59 Merritt 01 Cesar 2020-11-03 2020-11-03 Outpatient MHIE IE [id number] Memoria 13:00:00 13:00:00 01 todd Morales 2020-10-15 2020-10-16 Outpatient nullFlavo MNA [id number] Memoria 16:30:00 04:59:59 r Neurology 00 l Andrés Morales 2020-10-15 2020-10-16 Outpatient nullFlavo MNA [id number] Memoria 16:30:00 04:59:59 r Neurology 00 l Andrés Canoann 2020-10-15 2020-10-15 Outpatient [facility]A Deras [facility] [id number] 11:30:00 23:59:59 Merritt 00 Cesar 2019-08-15 2019-08-15 Office LOGAN Osorio 1.2.840.114 [id number] [facility] 13:47:41 15:50:19 Visit Michael AMBULATOR 350.1.13.21 College Y 0.2.7.2.686 [id number] [facility] 800 e 2019-04-24 2019-05-03 Inpatient 3 KARLO BONILLA CVA [id number] [facility] 20:39:00 11:00:00 [facility] [facility] Results Test Description Test Time Test Comments Results Result Comments Source SURGICAL 2022-07-22 15:10:00 Test Item Value Reference Range Interpretation Comme nts SURGICAL RUN (test DATE: 07/22/22 [place] - LAB PAGE 1 RUN TIME: 1510 Specimen Inquiry RUN USER: INTERFACE code = PATIENT: OMISE STONER [id number] LOC: VERONICA U #: [id number] AGE/SX: 76/F ROOM: [facility] RE07/21/22REG DR: Milagros Gold : 45 BED: 1 DIS: 07/22/22 STATUS: DIS IN TLOC: SPEC #: [id number] RECD: 07/21/22- 027 STATUS: ZONIA CAMARA #: [id number] DONTE: 07/21/22- SUBM DR: Robert Gold MD ENTERED: 07/21/221039 SP TYPE: SURGICAL OTHR DR: Garth Hopkins MD, Anas MDORDERED: 15860, ANATOMIC S PEC COPIES TO: Robert Gold MD [address] [facility] [place] [id number] Gatrh Hopkins MD [address] [place] [address] Alicja Valencia MD [address] [place] [address] PROCEDURES: 53549 (07/21/221039) TISSUES: A. CAROTID PLAQUE WITH DECAL CLINICAL HISTORY SAME FINAL DIAGNOSIS Carotid plaque, le ft, endarterectomy: Atherosclerotic plaque with calcification. GROSS DESCRIPTION Received in form shivani labeled "left carotid artery "are 2 segments of lehman-yellowatherosclerotic pl aques , up to 3.4 cm in length, 0.8 cm in diameter, with representativesections submi tted (A). Technical component performed at [facility],[address] [place] [address], [place] [address] Unless gross only, the diagnosis is based upon microscopic examination. CONTINUED ON NEXT PAG E RUN DATE: 07/22/22 [place] - LAB PAGE 2 RUN TIME: 1510 Specimen Inquiry RUN USER: INTERFACE SPEC #: [id number] PATIENT: MOISE NAYAK #[id number] (Continued) --- GROSS DESCRIPTION (Aga nued) Immunohistochemistry: This test was developed and its performance characteristicsdetermined by this laboratory. It has not been approved nor does it need approvalby the [place] FDA. Appropriate posi tive and negative controls are reviewed and judgedto be acceptable. This laboratory is certified unde r the Clinical Laboratory ImprovementAmendments (CLIA-88) as qualified to perform high complexity c linical laboratory testing. CLINICAL INFORMATION OCCLUSION AND STENOSIS OF LEFT CAROTID ARTERY Signed SIGNATURE ON FILE Arnold Evans 07/22/22 1510 END OF REPORT CBC W/AUTO [id number] 06:49:00 Test Item Value Reference Range Interpretation Comments WHITE BLOOD CELL (test code = 11.6 x10 3/uL 4.5-11.0 H WBC) RED BLOOD CELL (test code = 3.77 x10 6/uL 3.54-5.02 N RBC) HEMOGLOBIN (test code = HGB) 11.7 g/dL 11.0-15.0 N HEMATOCRIT (test code = HCT) 35.7 % 33.0-45.0 N MEAN CELL VOLUME (test code = 94.7 fL 81.0-99.0 N MCV) MEAN CELL HGB (test code = MCH) 31.0 pg 27.0-33.0 N MEAN CELL HGB CONCETRATION 32.8 g/dL 33.0-37.0 L (test code = MCHC) RED CELL DISTRIBUTION WIDTH CV 13.1 % 11.5-14.5 N (test code = RDW) RED CELL DISTRIBUTION WIDTH SD 44.9 fL 37.0-54.0 N (test code = RDW-SD) PLATELET COUNT (test code = 145 x10 3/uL 150-400 L PLT) MEAN PLATELET VOLUME (test code 10.5 fL 7.0-9.0 H = MPV) NEUTROPHIL % (test code = NT%) 77.5 % 56.0-77.0 H IMMATURE GRANULOCYTE % (test 0.3 % 0.0-2.0 N code = IG%) LYMPHOCYTE % (test code = LY%) 13.1 % 14.0-32.0 L MONOCYTE % (test code = MO%) 8.4 % 4.8-9.0 N EOSINOPHIL % (test code = EO%) 0.3 % 0.3-3.7 N BASOPHIL % (test code = BA%) 0.4 % 0.0-2.0 N NUCLEATED RBC % (test code = 0.0 % 0-0 N NRBC%) NEUTROPHIL # (test code = NT#) 8.97 x10 3/uL 2.0-7.6 H IMMATURE GRANULOCYTE # (test 0.04 x10 3/uL 0.00-0.03 H code = IG#) LYMPHOCYTE # (test code = LY#) 1.51 x10 3/uL 1.0-3.8 N MONOCYTE # (test code = MO#) 0.97 x10 3/uL 0.1-0.8 H EOSINOPHIL # (test code = EO#) 0.03 x10 3/uL 0.0-0.2 N BASOPHIL # (test code = BA#) 0.05 x10 3/uL 0.0-0.2 N NUCLEATED RBC # (test code = 0.00 x10 3/uL 0.0-0.1 N NRBC#) MANUAL DIFF REQUIRED (test code NO = MDIFF) BASIC METABOLIC [id number] 06:18:00 Test Item Value Reference Range Interpretation Comments SODIUM (test code = 141 mEq/L 134-147 N NA) POTASSIUM (test code 3.8 mEq/L 3.4-5.0 N = K) CHLORIDE (test code 108 mEq/L 100-108 N = CL) CARBON DIOXIDE (test 25 mEq/l 21-33 N code = CO2) ANION GAP (test code 12 0-20 N = GAP) GLUCOSE (test code = 99 mg/dL 70-110 GLU) BLOOD UREA NITROGEN 12 mg/dL 7-18 (test code = BUN) GLOMERULAR 58.4 70-80 L The Glomerular FILTRATION RATE Filtration R ate is a (test code = GFR) calculated parameterbased on serum Creatinine, pat ient age and sex. GFR va luesless than 60 mL/min/ 1.73 square meters a re indicative ofCh ronic Kidney Disease. Values less than 15 mL/min/1.73squa re meters indicate Kidney failure. The calculation forGFR is based on the CKD-EPI (202) calculat ion. This formulais race indifferent and is the recommended for nadir for GFRby the Natio nal Kidney Foundati on for Adults.The GFR will not calculate if th e sex is unknown or if thepatient's ag e is <18 years. CREATININE (test 1.0 mg/dL 0.6-1.3 N code = CREAT) CALCIUM (test code = 8.8 mg/dL 8.0-10.5 N CA) BASIC METABOLIC [id number] 09:59:00 Test Item Value Reference Range Interpretation Comments SODIUM (test code = 142 mEq/L 134-147 N NA) POTASSIUM (test code 4.5 mEq/L 3.4-5.0 = K) CHLORIDE (test code 107 mEq/L 100-108 N = CL) CARBON DIOXIDE (test 28 mEq/l 21-33 N code = CO2) ANION GAP (test code 12 0-20 N = GAP) GLUCOSE (test code = 136 mg/dL 70-110 H GLU) BLOOD UREA NITROGEN 19 mg/dL 7-18 H (test code = BUN) GLOMERULAR 52.1 70-80 L The Glomerular FILTRATION RATE Filtration R ate is a (test code = GFR) calculated parameterbased on serum Creatinine, pat ient age and sex. GFR va luesless than 60 mL/min/ 1.73 square meters a re indicative ofCh ronic Kidney Disease. Values less than 15 mL/min/1.73squa re meters indicate Kidney failure. The calculation forGFR is based on the CKD-EPI (2020) calculat ion. This formulais race indifferent and is the recommended for nadir for GFRby the Natio nal Kidney Foundati on for Adults.The GFR will not calculate if th e sex is unknown or if thepatient's ag e is <18 years. 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 UA RFLX MICR CULT IF [id number] 13:20:00 Test Item Value Reference Range Interpretation Comments UA COLOR (test code = COLU) STRAW YEL/STRAW UA APPEARANCE (test code = APPU) CLEAR CLEAR UA GLUCOSE DIPSTICK (test code = NEGATIVE NEGATIVE DGLUU) UA BILIRUBIN DIPSTICK (test code NEGATIVE NEGATIVE = BILU) UA KETONE DIPSTICK (test code = NEGATIVE NEGATIVE KETU) UA SPECIFIC GRAVITY (test code = 1.006 1.005-1.030 N SGU) UA BLOOD DIPSTICK (test code = 1+ NEGATIVE A LEXI) UA PH DIPSTICK (test code = WICHO) 7.0 5.0-7.0 N UA PROTEIN DIPSTICK (test code = NEGATIVE NEGATIVE PROU) UA UROBILINIOGEN DIPSTICK (test 0.2 mg/dL 0.2-1.0 code = URO) UA NITRITE DIPSTICK (test code = NEGATIVE NEGATIVE BRIAN) UA LEUKOCYTE ESTERASE DIPSTICK TRACE NEGATIVE A (test code = LEUU) UA WBC (test code = WBCU) 4-9 WBC/HPF 0-3 A UA RBC (test code = RBCU) 4-10 RBC/HPF 0-3 UA WBC NO REFLEX (test code = 4-9 WBC/HPF 0-3 A WBCUCL) UA BACTERIA (test code = BACU) 1+ /HPF NONE SEEN A UA SQUAMOUS CELLS (test code = 0-5 /HPF NONE SEEN SQU) Indication for culture: Flank PainSpecimen Description: CLEAN CATCHCOMPREHENSIVE METABOLIC [id number] 13:13:00 Test Item Value Reference Range Interpretation Comments SODIUM (test code = 139 mEq/L 134-147 N NA) POTASSIUM (test code 3.6 mEq/L 3.4-5.0 N = K) CHLORIDE (test code 103 mEq/L 100-108 N = CL) CARBON DIOXIDE (test 31 mEq/l 21-33 N code = CO2) ANION GAP (test code 9 0-20 N = GAP) GLUCOSE (test code = 88 mg/dL 70-110 N GLU) BLOOD UREA NITROGEN 18 mg/dL 7-18 N (test code = BUN) GLOMERULAR 52.1 70-80 L The Glomerular FILTRATION RATE Filtration R ate is a (test code = GFR) calculated parameterbased on serum Creatinine, pat ient age and sex. GFR va luesless than 60 mL/min/ 1.73 square meters a re indicative ofCh ronic Kidney Disease. Values less than 15 mL/min/1.73squa re meters indicate Kidney failure. The calculation for GFR is based on the CK D-EPI (2020) calculat ion. This formulais race indifferent and is the recommended for nadir for GFRby the Natio nal Kidney Foundati on for Adults.The GFR will not calculate if th e sex is unknown or if thepatient's ag e is <18 years. CREATININE (test 1.1 mg/dL 0.6-1.3 N code = CREAT) TOTAL PROTEIN (test 7.4 g/dL 6.4-8.2 N code = PROT) ALBUMIN (test code = 4.40 g/dL 3.4-5.0 N ALB) CALCIUM (test code = 9.5 mg/dL 8.0-10.5 N CA) BILIRUBIN TOTAL 0.30 mg/dL 0.0-1.0 N (test code = BILT) SGOT/AST (test code 20 IUnit/L 15-37 N = AST) SGPT/ALT (test code 11 IUnit/L 30-65 L = ALT) ALKALINE PHOSPHATASE 86 IUnit/L 20-125 N TOTAL (test code = ALKP) [id number] 13:13:00 Test Item Value Reference Range Interpretation Comments HGBA1C% (test code = HGBA1C%) 5.2 %A1C 4.8-6.0 N PROTHROMBIN [id number] 12:55:00 Test Item Value Reference Range Interpretation Comments PROTHROMBIN TIME 11.3 SECONDS 9.3-12.9 N PATIENT (test code = PTP) INTERNATIONAL NORMAL 1.0 0.8-1.2 N TARGET INR BY RATIO (test code = INDICATIO N Indication INR) INR1. Prophylax is of venous thrombos is 2.0 - 3.0 (orthoped ic surgery), Proph ylaxis of venous throm bosis (other than hig h-risk surgery), Treat ment of Deep Vein Thrombosis/Pulm onary Embolism, Preve ntion of systemic emb olism - Tissue heart va lves, Acute Myocardia l Infarction (to prevent systemic emboli sm), Valvular heart disease, Atrial Fibrillation, Bileaflet mecha nical valve in aortic position.2. Mec hanical prosthetic valv es (high risk), 2. 5 - 3.5 Presence of Lup us Anticoagulant o r Antiphospholipi d Antibodies, Pre vention of systemic emb olism - Acute Myocardia l Infarction (to prevent recurrent infar ct). THROMBOPLASTIN TIME [id number] 12:55:00 Test Item Value Reference Range Interpretation Comments THROMBOPLASTIN TIME 26.4 Seconds 25.0-39.5 N Therape utic Range: PARTIAL (test code = 50.4 - 88.3 Seconds PTT) Effective 10/30/2018 CBC W/AUTO [id number] 12:45:00 Test Item Value Reference Range Interpretation Comments WHITE BLOOD CELL (test code = 7.1 x10 3/uL 4.5-11.0 N WBC) RED BLOOD CELL (test code = 4.09 x10 6/uL 3.54-5.02 N RBC) HEMOGLOBIN (test code = HGB) 12.6 g/dL 11.0-15.0 N HEMATOCRIT (test code = HCT) 38.1 % 33.0-45.0 N MEAN CELL VOLUME (test code = 93.2 fL 81.0-99.0 N MCV) MEAN CELL HGB (test code = MCH) 30.8 pg 27.0-33.0 N MEAN CELL HGB CONCETRATION 33.1 g/dL 33.0-37.0 N (test code = MCHC) RED CELL DISTRIBUTION WIDTH CV 13.2 % 11.5-14.5 N (test code = RDW) RED CELL DISTRIBUTION WIDTH SD 44.8 fL 37.0-54.0 N (test code = RDW-SD) PLATELET COUNT (test code = 164 x10 3/uL 150-400 N PLT) MEAN PLATELET VOLUME (test code 10.5 fL 7.0-9.0 H = MPV) NEUTROPHIL % (test code = NT%) 64.5 % 56.0-77.0 N IMMATURE GRANULOCYTE % (test 0.4 % 0.0-2.0 N code = IG%) LYMPHOCYTE % (test code = LY%) 21.9 % 14.0-32.0 N MONOCYTE % (test code = MO%) 8.6 % 4.8-9.0 N EOSINOPHIL % (test code = EO%) 3.8 % 0.3-3.7 H BASOPHIL % (test code = BA%) 0.8 % 0.0-2.0 N NUCLEATED RBC % (test code = 0.0 % 0-0 N NRBC%) NEUTROPHIL # (test code = NT#) 4.55 x10 3/uL 2.0-7.6 N IMMATURE GRANULOCYTE # (test 0.03 x10 3/uL 0.00-0.03 N code = IG#) LYMPHOCYTE # (test code = LY#) 1.55 x10 3/uL 1.0-3.8 N MONOCYTE # (test code = MO#) 0.61 x10 3/uL 0.1-0.8 N EOSINOPHIL # (test code = EO#) 0.27 x10 3/uL 0.0-0.2 H BASOPHIL # (test code = BA#) 0.06 x10 3/uL 0.0-0.2 N NUCLEATED RBC # (test code = 0.00 x10 3/uL 0.0-0.1 N NRBC#) MANUAL DIFF REQUIRED (test code NO = MDIFF) - DUP EXTRACRANIAL [id number] 00:00:00 [facility] 1945 Sex: F Name: MOISE NAYAK [facility] : 1945 Age/S: 76 / F [address] [place] [address] Unit #: [id number] Loc: [place] [address] Phys: Robert Gold MD Acct: [id number] Dis Date: Status: PRE IN PHONE #: [phone] Exam Date: 07/19/2022 2075 FAX #: [phone] Reason: 165.22. EXAMS: CPT CODE: [id number] [facility] EXTRACRANIAL DIGNA [id number] PROCEDURE INFORMATION: Exam: US Duplex Bilateral Extracranial Arteries, Carotid Arteries Exam date and time: 07/19/2022 1:15 PM Age: 76 years old Clinical indication: Occlusion and stenosis of left carotid artery; Additional info: 165.22. TECHNIQUE: Imaging protocol: Real-time Duplex ultrasound scan of the bilateral carotid and vertebral arteries combining arroyo scale, color Doppler and spectral waveform analysis. Bilateral exam. Exam focused on the carotid arteries. COMPARISON: No relevant prior studies available. FINDINGS: Mild to moderate atherosclerotic plaques are present along both carotid bifurcations. Right common carotid artery: No occlusion or stenosis . Waveforms are normal. Right internal carotid artery: Elevated peak systolic velocity of 144.9 cm/s. Right ICA/CCA ratio: Within normal limits. Right external carotid artery: No stenosis in the origin. Right vertebral artery: Antegrade flow. Left common carotid artery: No occlusion or stenosis. Waveforms are normal. Left internal carotid artery: Elevated peak systolic velocity of 183.7 cm/s. Left ICA/CCA ratio: Within normal limits. Left external carotid artery: No stenosis in the origin. Left vertebral artery: Antegrade flow. IMPRESSION: About 50-69% stenosis of bilateral proximal internal carotid arteries as above. REFERENCES: SRU CRITERIA. The degree of internal carotid artery stenosis is based on criteria defined by the Society of Radiologists in Ultrasound (SRU). Normal is no stenosis. Mildis less than 50% stenosis. Moderate is 50-69% stenosis. Severe is greater than 69% stenosis to near occlusion. Near occlusion is a markedly narrowed lumen. Total occlusion is no detectable patent lumen. at 1603 Reported and signed by: James Orr M.D. PAGE 1 Signed Report (CONTINUED) Name: MOISE NAYAK [facility] : 1945 Age/S: 76 / F [address] [place], [place] [address]vd Unit #: [id number] Loc: [place] [address] Phys: Robert Gold MD Acct: [id number] Dis Date: Status: PRE IN PHONE #: [phone] Exam Date: 07/19/2022 1358 FAX #: [phone] Reason: 165.22. EXAMS: CPT CODE: [id number] [facility] EXTRACRANIAL DIGNA [id number] (Continued) CC: Robert Gold MD Technologist: Janice Meneses RDMS() Trnscb Date/Time: 2022 (1602) [id number] Orig Print D/T: S: 07/19/2022 (1602) Probe: PAGE 2 Signed Report- XR CHEST 2 [id number] 00:00:00 [facility] : 1945 Sex: F FAX:Robert Watt [phone] [place]: St: PRE Name: MOISE NAYAK [facility] [place] : 1945 Age/S: 76/F [address] [place] [address] Unit #: [id number] Loc: [place], [place] [address] Phys: Robert Gold MD Acct: [id number] Dis Date: Status: PRE IN PHONE #: [phone] Exam Date: 07/19/20227 FAX #: Reason: PREOP EXAMS: CPT CODE: [id number] XR CHEST 2 V 99848 PROCEDURE INFORMATION: Exam: XR Chest Exam date and time: 07/19/2022 12:56 PM Age: 76 years old Clinical indication: Pre-operative exam; Respiratory screening exam; Additional info: Preop TECHNIQUE: Imaging protocol: Radiologic exam of the chest. Views: 2 views. PA and Lateral COMPARISON: CR XR CHEST 2 V 01/13/2022 9:46 AM FINDINGS: Lungs: There are normal lung volumes without consolidation or interstitial oppacities. Pleural spaces: No pleural effusion. No pneumothorax. Heart/Mediastinum: The heart size is normal. Vasculature: Aortic arch calcifications are present. Bones/joints: No acute abnormality. IMPRESSION: No acute cardiopulmonary process. at 1552 Reported and signed by: Eliud Martinez M.D. CC: Robert Gold MD Technologist: Layla Asher RT(R) Trnscrd Date/Time/By: 07/19/2022 (1552) : By: [email or web address] PAGE 1 Signed ReportSURGICAL 2022-01-18 15:32:00 Test Item Value Reference Range Interpretation Comments SURGICAL (test code = SR) R UN DATE: 01/18/22 [place] - LAB PAGE 1 RUN TIME: 1532 Specimen Inquiry RUN USER: INTERFACE P ATIENT: MOISE NAYAK LOC: [facility] U #: [id number] AGE/SX: 76/F ROOM: [facility] RE01/12/22REG DR: Rj Evans DO : 45 BED: 1 DIS: 01/14/22 STATUS: DIS IN TLOC: SPEC #: [id number] RECD: 01/14/22 STATUS: ZONIA CAMARA #: [id number] DONTE: 01/13/22- SUBM DR: Rj Evans DO ENTERED: 01/14/22 SP TYPE: SURGICAL OTHR DR: Edyta Reynolds MD, Abdul Hannan MD Dalal, Rajesh V MD Mouchli, Anas MD Raslan, Saleem MDORDERED: [id number], ANATOMIC SPEC COPIES TO: Edyta Reynolds MD [address] [place] [address] Robert Gold MD [address] [facility]. [address] [place] [address] Garth Hopkins MD [address] [place] [address] Chi Valencia MD [address] [id number] Devon Moses MD [address] [facility] [address] [place] [address] Rj Evans DO [address] [place] [address] PROCEDURES: 84778 (01/14/22) TISSUES: A. ARTERY, ATHEROMATOUS PLAQUE - RT CONTINUED ON NEXT PAGE R UN DATE: 01/18/22 [place] - LAB PAGE 2 RUN TIME: 153 Specimen Inquiry RUN USER: INTERFACE S [facility] #: [id number] PATIENT: MOISE NAYAK #[id number] (Continued) CLINICAL HISTORY SAME FINAL DIAGNOSIS Right carotid plaque, segment: Atherosclerotic plaque. GROSS DESCRIPTION Received is 1 segment of arroyo-white fibrotic tissue measuring 3.1 cm in largest dimension. Sections are submitted. [place] [address] Unless gross only, the diagnosis is based upon microscopic examination.Immunohistochemistr y: This test was developed and its performance characteristicsdetermined by this laboratory. It has not been approved nor does it need approvalby the [place] FDA. Appropriate positive and negative controls are reviewed and judgedto be acceptable. This laboratory is certified under the Clinical Laboratory ImprovementAmendments (CLIA-88) as qualified to perform high complexity clinical laboratory testing. CLINICAL INFORMATION RT. CAROTOID STENOSIS ------- Signed SIGNATURE ON FILE Dontae Evans MD 01/18/22 1532 END OF REPORT BASIC METABOLIC [id number] 05:12:00 Test Item Value Reference Range Interpretation Comments SODIUM (test code = NA) 138 mEq/L 134-147 N POTASSIUM (test code = 3.9 mEq/L 3.4-5.0 N K) CHLORIDE (test code = 110 mEq/L 100-108 H CL) CARBON DIOXIDE (test 26 mEq/l 21-33 N code = CO2) ANION GAP (test code = 6 0-20 N GAP) GLUCOSE (test code = 103 mg/dL 70-110 N GLU) BLOOD UREA NITROGEN 25 mg/dL 7-18 H (test code = BUN) GLOMERULAR FILTRATION 53.9 70-80 L Units of measure = RATE (test code = GFR) ml/mi n/1.73 m2 CREATININE (test code = 1.0 mg/dL 0.6-1.3 N CREAT) CALCIUM (test code = 8.2 mg/dL 8.0-10.5 N CA) [id number] 05:12:00 Test Item Value Reference Range Interpretation Comments MAGNESIUM (test code = MAG) 2.54 mg/dL 1.80-2.40 H CBC W/AUTO [id number] 04:59:00 Test Item Value Reference Range Interpretation Comments WHITE BLOOD CELL (test code = 11.8 x10 3/uL 4.5-11.0 H WBC) RED BLOOD CELL (test code = 3.27 x10 6/uL 3.54-5.02 L RBC) HEMOGLOBIN (test code = HGB) 10.1 g/dL 11.0-15.0 L HEMATOCRIT (test code = HCT) 30.0 % 33.0-45.0 L MEAN CELL VOLUME (test code = 91.7 fL 81.0-99.0 N MCV) MEAN CELL HGB (test code = MCH) 30.9 pg 27.0-33.0 N MEAN CELL HGB CONCETRATION 33.7 g/dL 33.0-37.0 N (test code = MCHC) RED CELL DISTRIBUTION WIDTH CV 13.7 % 11.5-14.5 N (test code = RDW) RED CELL DISTRIBUTION WIDTH SD 46.2 fL 37.0-54.0 N (test code = RDW-SD) PLATELET COUNT (test code = 128 x10 3/uL 150-400 L PLT) MEAN PLATELET VOLUME (test code 10.6 fL 7.0-9.0 H = MPV) NEUTROPHIL % (test code = NT%) 72.0 % 56.0-77.0 N IMMATURE GRANULOCYTE % (test 0.5 % 0.0-2.0 N code = IG%) LYMPHOCYTE % (test code = LY%) 17.4 % 14.0-32.0 N MONOCYTE % (test code = MO%) 9.8 % 4.8-9.0 H EOSINOPHIL % (test code = EO%) 0.0 % 0.3-3.7 L BASOPHIL % (test code = BA%) 0.3 % 0.0-2.0 N NUCLEATED RBC % (test code = 0.0 % 0-0 N NRBC%) NEUTROPHIL # (test code = NT#) 8.53 x10 3/uL 2.0-7.6 H IMMATURE GRANULOCYTE # (test 0.06 x10 3/uL 0.00-0.03 H code = IG#) LYMPHOCYTE # (test code = LY#) 2.06 x10 3/uL 1.0-3.8 N MONOCYTE # (test code = MO#) 1.16 x10 3/uL 0.1-0.8 H EOSINOPHIL # (test code = EO#) 0.00 x10 3/uL 0.0-0.2 N BASOPHIL # (test code = BA#) 0.03 x10 3/uL 0.0-0.2 N NUCLEATED RBC # (test code = 0.00 x10 3/uL 0.0-0.1 N NRBC#) MANUAL DIFF REQUIRED (test code NO = MDIFF) BASIC METABOLIC [id number] 18:30:00 Test Item Value Reference Range Interpretation Comments SODIUM (test code = NA) 142 mEq/L 134-147 N POTASSIUM (test code = 4.0 mEq/L 3.4-5.0 N K) CHLORIDE (test code = 113 mEq/L 100-108 H CL) CARBON DIOXIDE (test 25 mEq/l 21-33 N code = CO2) ANION GAP (test code = 8 0-20 N GAP) GLUCOSE (test code = 133 mg/dL 70-110 H GLU) BLOOD UREA NITROGEN 29 mg/dL 7-18 H (test code = BUN) GLOMERULAR FILTRATION 53.9 70-80 L Units of measure = RATE (test code = GFR) ml/mi n/1.73 m2 CREATININE (test code = 1.0 mg/dL 0.6-1.3 N CREAT) CALCIUM (test code = 8.0 mg/dL 8.0-10.5 N CA) [id number] 18:30:00 Test Item Value Reference Range Interpretation Comments PHOSPHOROUS (test code = PHOS) 3.1 MG/DL 2.5-4.9 N [id number] 18:30:00 Test Item Value Reference Range Interpretation Comments MAGNESIUM (test code = MAG) 1.47 mg/dL 1.80-2.40 L CALCIUM [id number] 18:30:00 Test Item Value Reference Range Interpretation Comments CALCIUM IONIZED (test code = ETHAN) 1.21 MMOL/L 1.12-1.32 N CBC W/AUTO [id number] 18:11:00 Test Item Value Reference Range Interpretation Comments WHITE BLOOD CELL (test code = 14.3 x10 3/uL 4.5-11.0 H WBC) RED BLOOD CELL (test code = 3.37 x10 6/uL 3.54-5.02 L RBC) HEMOGLOBIN (test code = HGB) 10.5 g/dL 11.0-15.0 L HEMATOCRIT (test code = HCT) 31.2 % 33.0-45.0 L MEAN CELL VOLUME (test code = 92.6 fL 81.0-99.0 N MCV) MEAN CELL HGB (test code = 31.2 pg 27.0-33.0 N MCH) MEAN CELL HGB CONCETRATION 33.7 g/dL 33.0-37.0 N (test code = MCHC) RED CELL DISTRIBUTION WIDTH CV 13.8 % 11.5-14.5 N (test code = RDW) RED CELL DISTRIBUTION WIDTH SD 46.7 fL 37.0-54.0 N (test code = RDW-SD) PLATELET COUNT (test code = 128 x10 3/uL 150-400 L PLT) MEAN PLATELET VOLUME (test 10.4 fL 7.0-9.0 H code = MPV) NEUTROPHIL % (test code = NT%) 88.8 % 56.0-77.0 H IMMATURE GRANULOCYTE % (test 1.3 % 0.0-2.0 N code = IG%) LYMPHOCYTE % (test code = LY%) 4.9 % 14.0-32.0 L MONOCYTE % (test code = MO%) 4.9 % 4.8-9.0 N EOSINOPHIL % (test code = EO%) 0.0 % 0.3-3.7 L BASOPHIL % (test code = BA%) 0.1 % 0.0-2.0 N NUCLEATED RBC % (test code = 0.0 % 0-0 N NRBC%) NEUTROPHIL # (test code = NT#) 12.68 x10 3/uL 2.0-7.6 H IMMATURE GRANULOCYTE # (test 0.18 x10 3/uL 0.00-0.03 H code = IG#) LYMPHOCYTE # (test code = LY#) 0.70 x10 3/uL 1.0-3.8 L MONOCYTE # (test code = MO#) 0.70 x10 3/uL 0.1-0.8 N EOSINOPHIL # (test code = EO#) 0.00 x10 3/uL 0.0-0.2 N BASOPHIL # (test code = BA#) 0.02 x10 3/uL 0.0-0.2 N NUCLEATED RBC # (test code = 0.00 x10 3/uL 0.0-0.1 N NRBC#) MANUAL DIFF REQUIRED (test NO code = MDIFF) BASIC METABOLIC [id number] 15:19:00 Test Item Value Reference Range Interpretation Comments SODIUM (test code = NA) 140 mEq/L 134-147 N POTASSIUM (test code = 3.5 mEq/L 3.4-5.0 N K) CHLORIDE (test code = 112 mEq/L 100-108 H CL) CARBON DIOXIDE (test 25 mEq/l 21-33 N code = CO2) ANION GAP (test code = 7 0-20 N GAP) GLUCOSE (test code = 130 mg/dL 70-110 H GLU) BLOOD UREA NITROGEN 26 mg/dL 7-18 H (test code = BUN) GLOMERULAR FILTRATION 53.9 70-80 L Units of measure = RATE (test code = GFR) ml/mi n/1.73 m2 CREATININE (test code = 1.0 mg/dL 0.6-1.3 N CREAT) CALCIUM (test code = 8.3 mg/dL 8.0-10.5 N CA) HGB [id number] 14:35:00 Test Item Value Reference Range Interpretation Comments HEMOGLOBIN (test code = HGB) 10.4 g/dL 11.0-15.0 L HEMATOCRIT (test code = HCT) 30.5 % 33.0-45.0 L [id number] 13:05:00 Test Item Value Reference Range Interpretation Comments ACT-ISTAT (test code 347 SEC 74-137 H Perform ed by certified = ACTI) 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 [facility] COMPREHENSIVE METABOLIC [id number] 11:59:00 Test Item Value Reference Range Interpretation Comments SODIUM (test code = NA) 138 mEq/L 134-147 N POTASSIUM (test code = 3.6 mEq/L 3.4-5.0 N K) CHLORIDE (test code = 106 mEq/L 100-108 N CL) CARBON DIOXIDE (test 28 mEq/l 21-33 N code = CO2) ANION GAP (test code = 7 0-20 N GAP) GLUCOSE (test code = 93 mg/dL 70-110 N GLU) BLOOD UREA NITROGEN 22 mg/dL 7-18 H (test code = BUN) GLOMERULAR FILTRATION 48.3 70-80 L Units of measure = RATE (test code = GFR) ml/mi n/1.73 m2 CREATININE (test code = 1.1 mg/dL 0.6-1.3 N CREAT) TOTAL PROTEIN (test 7.4 g/dL 6.4-8.2 N code = PROT) ALBUMIN (test code = 4.30 g/dL 3.4-5.0 N ALB) CALCIUM (test code = 9.7 mg/dL 8.0-10.5 N CA) BILIRUBIN TOTAL (test 0.60 mg/dL 0.0-1.0 N code = BILT) SGOT/AST (test code = 28 IUnit/L 15-37 N AST) SGPT/ALT (test code = 14 IUnit/L 30-65 L ALT) ALKALINE PHOSPHATASE 70 IUnit/L 20-125 N TOTAL (test code = ALKP) LIPID PROFILE (CORONARY RISK)[id number] 11:59:00 Test Item Value Reference Range Interpretation Comments TRIGLYCERIDES (test 58 mg/dL 40-150 N code = TRIG) CHOLESTEROL (test 161 mg/dL <200 code = CHOL) CHOLESTEROL/HDL 2.58 RATIO 3.27-4.44 L RISK ASSOCIA JOSSELYN WITH RATIO (test code = CHOL/HDL RATIOS: RISK CHOLHDL) MALE FEMALE1/2 AVERAGE 3.43 3.27AVERAGE 4.9 7 4.442X AVERAGE 9.55 7.053X AVERAGE 23.39 11.04 NOTE THAT THE REFERENCE VALUE IS RELATEDTO RISK LEVELS RECOMMENDED BY THE NATL.HEART, GENEVIEVE G, AND BLOOD INST. HDL CHOLESTEROL 62.4 mg/dL 39-96 N (test code = HDL) LIPOPROTEIN LDL 102.0 mg/dL 0-100 H <100 OPTIMAL 100-129 (test code = LDL) NEAR OPTIM AL/ABOVE [id number] 89 HIGH>YF=247 [place] HIGH*Guidelines provided by the [facility] terol EducationProgra m Adult Treatment Panel III [id number] 11:59:00 Test Item Value Reference Range Interpretation Comments MAGNESIUM (test code = MAG) 1.85 mg/dL 1.80-2.40 N PROTHROMBIN [id number] 10:22:00 Test Item Value Reference Range Interpretation Comments PROTHROMBIN TIME 11.4 SECONDS 9.3-12.9 N PATIENT (test code = PTP) INTERNATIONAL NORMAL 1.0 0.8-1.2 N TARGE T INR BY RATIO (test code = INDICATIO N Indication INR) INR1. Prophylax is of venous thrombos is 2.0 - 3.0 (orthoped ic surgery), Proph ylaxis of venous throm bosis (other than hig h-risk surgery), Treat ment of Deep Vein Thrombosis/Pulm onary Embolism, Preve ntion of systemic emb olism - Tissue heart va lves, Acute Myocardia l Infarction (to prevent systemic emboli sm), Valvular heart disease, Atrial Fibrillation, Bileaflet mecha nical valve in aortic position.2. Mec hanical prosthetic valv es (high risk), 2. 5 - 3.5 Presence of Lup us Anticoagulant o r Antiphospholipi d Antibodies, Pre vention of systemic emb olism - Acute Myocardia l Infarction (to prevent recurrent infar ct). THROMBOPLASTIN TIME [id number] 10:22:00 Test Item Value Reference Range Interpretation Comments THROMBOPLASTIN TIME 22.6 Seconds 25.0-39.5 L Therape utic Range: PARTIAL (test code = 50.4 - 88.3 Seconds PTT) Effective 10/30/2018 CBC W/AUTO [id number] 09:58:00 Test Item Value Reference Range Interpretation Comments WHITE BLOOD CELL (test code = 16.6 x10 3/uL 4.5-11.0 H WBC) RED BLOOD CELL (test code = 4.13 x10 6/uL 3.54-5.02 N RBC) HEMOGLOBIN (test code = HGB) 12.7 g/dL 11.0-15.0 N HEMATOCRIT (test code = HCT) 37.8 % 33.0-45.0 N MEAN CELL VOLUME (test code = 91.5 fL 81.0-99.0 N MCV) MEAN CELL HGB (test code = 30.8 pg 27.0-33.0 N MCH) MEAN CELL HGB CONCETRATION 33.6 g/dL 33.0-37.0 N (test code = MCHC) RED CELL DISTRIBUTION WIDTH CV 13.7 % 11.5-14.5 N (test code = RDW) RED CELL DISTRIBUTION WIDTH SD 45.9 fL 37.0-54.0 N (test code = RDW-SD) PLATELET COUNT (test code = 161 x10 3/uL 150-400 N PLT) MEAN PLATELET VOLUME (test 10.2 fL 7.0-9.0 H code = MPV) NEUTROPHIL % (test code = NT%) 79.8 % 56.0-77.0 H IMMATURE GRANULOCYTE % (test 0.6 % 0.0-2.0 N code = IG%) LYMPHOCYTE % (test code = LY%) 12.7 % 14.0-32.0 L MONOCYTE % (test code = MO%) 6.7 % 4.8-9.0 N EOSINOPHIL % (test code = EO%) 0.0 % 0.3-3.7 L BASOPHIL % (test code = BA%) 0.2 % 0.0-2.0 N NUCLEATED RBC % (test code = 0.0 % 0-0 N NRBC%) NEUTROPHIL # (test code = NT#) 13.28 x10 3/uL 2.0-7.6 H IMMATURE GRANULOCYTE # (test 0.10 x10 3/uL 0.00-0.03 H code = IG#) LYMPHOCYTE # (test code = LY#) 2.11 x10 3/uL 1.0-3.8 N MONOCYTE # (test code = MO#) 1.11 x10 3/uL 0.1-0.8 H EOSINOPHIL # (test code = EO#) 0.00 x10 3/uL 0.0-0.2 N BASOPHIL # (test code = BA#) 0.03 x10 3/uL 0.0-0.2 N NUCLEATED RBC # (test code = 0.00 x10 3/uL 0.0-0.1 N NRBC#) MANUAL DIFF REQUIRED (test NO code = MDIFF) COVID 19 Asymptomatic IH [id number] 07:05:00 Test Item Value Reference Range Interpretation Comments [...] perform moderate, high or waivedcomplexit y tests. - XR CHEST 2 [id number] 00:00:00 [facility] : 1945 Sex: F FAX:Yumiko Mayer [phone] [place]: St: ADM FAX: Devon Reese MD [phone] FAX: Rj Evans DO Name: MOISE NAYAK [facility] : 1945 Age/S: 76/F [address] [place] [address] Unit #: [id number] Loc: [place] [address] Phys: Hallie Mayer [employer] Acct: [id number] Dis Date: Status: ADM IN PHONE #: [phone] Exam Date: 01/13/2022 1001 FAX #: [phone] Reason: PREOP CEA EXAMS: CPTCODE: [id number] XR CHEST 2 V [id number] PROCEDURE INFORMATION: Exam: XR Chest Exam date and time: 01/13/2022 9:46 AM Age: 76 years old Clinical indication: Pre-operative exam; Respiratory screening exam; Additional info: Preop cea TECHNIQUE: Imaging protocol: Radiologic exam of the chest. Views: 2 views. PA and Lateral COMPARISON: DX XR CHEST 2 V 11/01/2021 1:38 PM FINDINGS: Lungs: Normal lung volumes. No consolidation or infiltrate. Pleural spaces: No pleural effusion. No pneumothorax. Heart/Mediastinum: The cardiomediastinal silhouette is within normal limits. Pulmonary vasculature is unremarkable. Ath erosclerotic calcification of the aorta. Bones/joints: No acute abnormality seen. IMPRESSION: No acute cardiopulmonary findings at 1323 Reported and signed by: Renee Mcknight M.D. CC: Hallie Charles [employer]; Devon Moses MD; Rj Evans DO Technologist: Carmenza Mckeon RT(R) Trnscrd Date/Time/By: 01/13/2022 (3415) : By: [id number] Orig Print D/T: S: 01/13/2022 (2186) PAGE 1 Signed ReportBASIC METABOLIC [id number] 13:29:00 Test Item Value Reference Range Interpretation Comments SODIUM (test code = NA) 139 mEq/L 134-147 N POTASSIUM (test code = 3.6 mEq/L 3.4-5.0 N K) CHLORIDE (test code = 104 mEq/L 100-108 N CL) CARBON DIOXIDE (test 32 mEq/l 21-33 N code = CO2) ANION GAP (test code = 6 0-20 N GAP) GLUCOSE (test code = 103 mg/dL 70-110 N GLU) BLOOD UREA NITROGEN 17 mg/dL 7-18 N (test code = BUN) GLOMERULAR FILTRATION 43.7 70-80 L Units of measure = RATE (test code = GFR) ml/mi n/1.73 m2 CREATININE (test code = 1.2 mg/dL 0.6-1.3 N CREAT) CALCIUM (test code = 9.7 mg/dL 8.0-10.5 N CA) PROTHROMBIN [id number] 13:21:00 Test Item Value Reference Range Interpretation Comments PROTHROMBIN TIME 12.5 SECONDS 9.3-12.9 N PATIENT (test code = PTP) INTERNATIONAL NORMAL 1.1 0.8-1.2 N TARGET INR BY RATIO (test code = INDICATIO N Indication INR) INR1. Prophylax is of venous thrombos is 2.0 - 3.0 (orthoped ic surgery), Proph ylaxis of venous throm bosis (other than hig h-risk surgery), Treat ment of Deep Vein Thrombosis/Pulm onary Embolism, Preve ntion of systemic emb olism - Tissue heart va lves, Acute Myocardia l Infarction (to prevent systemic emboli sm), Valvular heart disease, Atrial Fibrillation, Bileaflet mecha nical valve in aortic position.2. Mec hanical prosthetic valv es (high risk), 2. 5 - 3.5 Presence of Lup us Anticoagulant o r Antiphospholipi d Antibodies, Pre vention of systemic emb olism - Acute Myocardia l Infarction (to prevent recurrent infar ct). CBC W/AUTO [id number] 13:15:00 Test Item Value Reference Range Interpretation Comments WHITE BLOOD CELL (test code = 7.1 x10 3/uL 4.5-11.0 N WBC) RED BLOOD CELL (test code = 4.12 x10 6/uL 3.54-5.02 N RBC) HEMOGLOBIN (test code = HGB) 12.5 g/dL 11.0-15.0 N HEMATOCRIT (test code = HCT) 37.6 % 33.0-45.0 N MEAN CELL VOLUME (test code = 91.3 fL 81.0-99.0 N MCV) MEAN CELL HGB (test code = MCH) 30.3 pg 27.0-33.0 N MEAN CELL HGB CONCETRATION 33.2 g/dL 33.0-37.0 N (test code = MCHC) RED CELL DISTRIBUTION WIDTH CV 13.4 % 11.5-14.5 N (test code = RDW) RED CELL DISTRIBUTION WIDTH SD 45.0 fL 37.0-54.0 N (test code = RDW-SD) PLATELET COUNT (test code = 155 x10 3/uL 150-400 N PLT) MEAN PLATELET VOLUME (test code 10.4 fL 7.0-9.0 H = MPV) NEUTROPHIL % (test code = NT%) 59.7 % 56.0-77.0 N IMMATURE GRANULOCYTE % (test 0.1 % 0.0-2.0 N code = IG%) LYMPHOCYTE % (test code = LY%) 23.3 % 14.0-32.0 N MONOCYTE % (test code = MO%) 9.9 % 4.8-9.0 H EOSINOPHIL % (test code = EO%) 6.3 % 0.3-3.7 H BASOPHIL % (test code = BA%) 0.7 % 0.0-2.0 N NUCLEATED RBC % (test code = 0.0 % 0-0 N NRBC%) NEUTROPHIL # (test code = NT#) 4.23 x10 3/uL 2.0-7.6 N IMMATURE GRANULOCYTE # (test 0.01 x10 3/uL 0.00-0.03 N code = IG#) LYMPHOCYTE # (test code = LY#) 1.65 x10 3/uL 1.0-3.8 N MONOCYTE # (test code = MO#) 0.70 x10 3/uL 0.1-0.8 N EOSINOPHIL # (test code = EO#) 0.45 x10 3/uL 0.0-0.2 H BASOPHIL # (test code = BA#) 0.05 x10 3/uL 0.0-0.2 N NUCLEATED RBC # (test code = 0.00 x10 3/uL 0.0-0.1 N NRBC#) MANUAL DIFF REQUIRED (test code NO = MDIFF) [id number] 14:15:00 Test Item Value Reference Range Interpretation Comments ACT-ISTAT (test code 142 SEC 74-137 H Perform ed by certified = ACTI) 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 [facility] [id number] 12:33:00 Test Item Value Reference Range Interpretation Comments ACT-ISTAT (test code 184 SEC 74-137 H Perform ed by certified = ACTI) 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 [facility] [id number] 11:07:00 Test Item Value Reference Range Interpretation Comments ACT-ISTAT (test code 255 SEC 74-137 H Perform ed by certified = ACTI) 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 [facility] BASIC METABOLIC [id number] 14:51:00 Test Item Value Reference Range Interpretation Comments SODIUM (test code = NA) 140 mEq/L 134-147 N POTASSIUM (test code = 3.5 mEq/L 3.4-5.0 N K) CHLORIDE (test code = 103 mEq/L 100-108 N CL) CARBON DIOXIDE (test 31 mEq/l 21-33 N code = CO2) ANION GAP (test code = 10 0-20 N GAP) GLUCOSE (test code = 117 mg/dL 70-110 H GLU) BLOOD UREA NITROGEN 19 mg/dL 7-18 H (test code = BUN) GLOMERULAR FILTRATION 43.8 70-80 L Units of measure = RATE (test code = GFR) ml/mi n/1.73 m2 CREATININE (test code = 1.2 mg/dL 0.6-1.3 N CREAT) CALCIUM (test code = 9.5 mg/dL 8.0-10.5 N CA) PROTHROMBIN [id number] 14:46:00 Test Item Value Reference Range Interpretation Comments PROTHROMBIN TIME 11.4 SECONDS 9.3-12.9 N PATIENT (test code = PTP) INTERNATIONAL NORMAL 1.0 0.8-1.2 N TARGET INR BY RATIO (test code = INDICATIO N Indication INR) INR1. Prophylax is of venous thrombos is 2.0 - 3.0 (orthoped ic surgery), Proph ylaxis of venous throm bosis (other than hig h-risk surgery), Treat ment of Deep Vein Thrombosis/Pulm onary Embolism, Preve ntion of systemic emb olism - Tissue heart va lves, Acute Myocardia l Infarction (to prevent systemic emboli sm), Valvular heart disease, Atrial Fibrillation, Bileaflet mecha nical valve in aortic position.2. Mec hanical prosthetic valv es (high risk), 2. 5 - 3.5 Presence of Lup us Anticoagulant o r Antiphospholipi d Antibodies, Pre vention of systemic emb olism - Acute Myocardia l Infarction (to prevent recurrent infar ct). CBC W/AUTO [id number] 14:37:00 Test Item Value Reference Range Interpretation Comments WHITE BLOOD CELL (test code = 6.7 x10 3/uL 4.5-11.0 WBC) RED BLOOD CELL (test code = 4.04 x10 6/uL 3.54-5.02 N RBC) HEMOGLOBIN (test code = HGB) 12.1 g/dL 11.0-15.0 N HEMATOCRIT (test code = HCT) 37.4 % 33.0-45.0 N MEAN CELL VOLUME (test code = 92.6 fL 81.0-99.0 N MCV) MEAN CELL HGB (test code = MCH) 30.0 pg 27.0-33.0 N MEAN CELL HGB CONCETRATION 32.4 g/dL 33.0-37.0 L (test code = MCHC) RED CELL DISTRIBUTION WIDTH CV 12.4 % 11.5-14.5 N (test code = RDW) RED CELL DISTRIBUTION WIDTH SD 42.4 fL 37.0-54.0 N (test code = RDW-SD) PLATELET COUNT (test code = 191 x10 3/uL 150-400 N PLT) MEAN PLATELET VOLUME (test code 10.2 fL 7.0-9.0 H = MPV) NEUTROPHIL % (test code = NT%) 60.1 % 56.0-77.0 N IMMATURE GRANULOCYTE % (test 0.6 % 0.0-2.0 N code = IG%) LYMPHOCYTE % (test code = LY%) 20.4 % 14.0-32.0 N MONOCYTE % (test code = MO%) 7.9 % 4.8-9.0 N EOSINOPHIL % (test code = EO%) 10.1 % 0.3-3.7 H BASOPHIL % (test code = BA%) 0.9 % 0.0-2.0 N NUCLEATED RBC % (test code = 0.0 % 0-0 N NRBC%) NEUTROPHIL # (test code = NT#) 4.04 x10 3/uL 2.0-7.6 N IMMATURE GRANULOCYTE # (test 0.04 x10 3/uL 0.00-0.03 H code = IG#) LYMPHOCYTE # (test code = LY#) 1.37 x10 3/uL 1.0-3.8 N MONOCYTE # (test code = MO#) 0.53 x10 3/uL 0.1-0.8 N EOSINOPHIL # (test code = EO#) 0.68 x10 3/uL 0.0-0.2 H BASOPHIL # (test code = BA#) 0.06 x10 3/uL 0.0-0.2 N NUCLEATED RBC # (test code = 0.00 x10 3/uL 0.0-0.1 N NRBC#) MANUAL DIFF REQUIRED (test code NO = MDIFF) - XR CHEST 2 [id number] 00:00:00 [facility] : 1945 Sex: F FAX:Devon Reese MD [phone] [place]: St: PRE Name: MOISE NAYAK [facility] : 1945 Age/S: 75/F [address] [place] [address] Blvd Unit #: [id number] Loc: [place] [address] Phys: Devon Moses MD Acct: [id number] Dis Date: Status: PRE [facility] [place] PHONE #: [phone] Exam Date: 11/01/2021 1342 FAX #: [phone]: PREOP EXAMS: CPT CODE: [id number] XR CHEST 2 V [id number] PROCEDURE INFORMATION: Exam: XR Chest Exam date and time: 11/01/2021 1:38 PM Age: 75 years old Clinical indication: Pre-operative exam; Respiratory screening exam; Additional info: Preop TECHNIQUE: Imaging protocol: XR of the chest. Views: 2 views. PA and Lateral COMPARISON: DX XR CHEST 2 V 08/02/2021 12:55 PM FINDINGS: Lungs: No consolidation. Pleural spaces: No pleural effusion. Heart/Mediastinum: The heart and vascular markings are withinlimits of normal. There is atherosclerotic calcification of the aorta. Bones/joints: No gross acute findings. IMPRESSION: No acute cardiopulmonary findings at 1619 Reported and signed by: Jose Bonilla D.O. CC: Devon Moses MDTechnologist: RT Rina(R) Trnscrd Date/Time/By: 11/01/2021 (161) : By: [email or web address] Orig Print D/T: S: 11/01/2021 ([id number]) PAGE 1 Signed ReportHGB [id number] 08:45:00 Test Item Value Reference Range Interpretation Comments HEMOGLOBIN (test code = HGB) 8.9 g/dL 11.0-15.0 L HEMATOCRIT (test code = HCT) 27.4 % 33.0-45.0 L B-TYPE NATRIURETIC [id number] 15:10:00 Test Item Value Reference Range Interpretation Comments B-TYPE NATRIURETIC PEPTIDE (test 59.0 PG/ML 0-100 N code = BNP) BASIC METABOLIC [id number] 14:55:00 Test Item Value Reference Range Interpretation [...] 8.7 mg/dL 8.0-10.5 N CA) CBC W/AUTO [id number] 14:39:00 Test Item Value Reference Range Interpretation [...] DIFF REQUIRED (test code NO = MDIFF) [id number] 19:05:00 Test Item Value Reference Range Interpretation Comments ACT-ISTAT (test code 154 SEC 74-137 H Perform ed by certified = ACTI) 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 [facility] [id number] 17:59:00 Test Item Value Reference Range Interpretation Comments ACT-ISTAT (test code 178 SEC 74-137 H Perform ed by certified = ACTI) 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 [facility] [id number] 17:08:00 Test Item Value Reference Range Interpretation Comments ACT-ISTAT (test code 207 SEC 74-137 H Perform ed by certified = ACTI) 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 [facility] [id number] 16:04:00 Test Item Value Reference Range Interpretation Comments ACT-ISTAT (test code 243 SEC 74-137 H Perform ed by certified = ACTI) 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 [facility] [id number] 15:26:00 Test Item Value Reference Range Interpretation Comments ACT-ISTAT (test code 237 SEC 74-137 H Perform ed by certified = ACTI) 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 Prophylax is of venous thrombos is 2.0 - 3.0 (orthoped ic surgery), Proph ylaxis of venous throm bosis (other than hig h-risk surgery), Treat ment of Deep Vein Thrombosis/Pulm onary Embolism, Preve ntion of systemic emb olism - Tissue heart va lves, Acute Myocardia l Infarction (to prevent systemic emboli sm), Valvular heart disease, Atrial Fibrillation, Bileaflet mecha nical valve in aortic position.2. Mec hanical prosthetic valv es (high risk), 2. 5 - 3.5 Presence of Lup us Anticoagulant o r Antiphospholipi d Antibodies, Pre vention of systemic emb olism - Acute Myocardia l Infarction (to prevent recurrent infar ct). CBC W/AUTO [id number] 14:46:00 Test Item Value Reference Range Interpretation [...] NO = MDIFF) - XR CHEST 2 [id number] 00:00:00 [facility] 1945 Sex: F FAX:Devon Reese MD [phone] [place]: [address]: PRE Name: NAELMOISE [facility] : 1945 Age/S: 75/F [address] [place], [place] [address]vd Unit #: [id number] Loc: [place] [address] Phys: Devon Moses MD Acct: [id number] Dis Date: Status: PRE SDC PHONE #: [phone] Exam Date: 08/02/2021 1340 FAX #: [phone] Reason: PREOP EXAMS: CPT CODE: [id number] XR CHEST 2 V 18399 PROCEDURE INFORMATION: Exam: XR Chest Exam date [...] Bonilla D.O. CC: Devon Moses MD Technologist: RT Corrine(R) Trnscrd Date/Time/By: 08/02/2021 (141) : By: [email or web address] Orig Print D/T: S: 08/02/2021 (7704) PAGE 1 Signed ReportCBC W/AUTO [id number] 08:01:00 Test Item Value Reference Range Interpretation [...] (test code NO = MDIFF) BASIC METABOLIC [id number] 07:50:00 Test Item Value Reference Range Interpretation [...] code = 9.5 mg/dL 8.0-10.5 N CA) [id number] 07:50:00 Test Item Value Reference Range Interpretation Comments MAGNESIUM (test code = MAG) 1.70 mg/dL 1.80-2.40 L BASIC METABOLIC [id number] 07:53:00 Test Item Value Reference Range Interpretation [...] code = 8.6 mg/dL 8.0-10.5 N CA) [id number] 07:53:00 Test Item Value Reference Range Interpretation Comments MAGNESIUM (test code = MAG) 1.68 mg/dL 1.80-2.40 L CBC W/AUTO [id number] 07:46:00 Test Item Value Reference Range Interpretation [...] (test code NO = MDIFF) CBC W/AUTO [id number] 08:42:00 Test Item Value Reference Range Interpretation [...] x10 3/uL 0.0-0.1 N NRBC#) BASIC METABOLIC [id number] 08:13:00 Test Item Value Reference Range Interpretation [...] code = 8.9 mg/dL 8.0-10.5 N CA) [id number] 08:13:00 Test Item Value Reference Range Interpretation Comments MAGNESIUM (test code = MAG) 1.49 mg/dL 1.80-2.40 L GLUCOSE [id number] 12:42:00 Test Item Value Reference Range Interpretation Comments GLUCOSE BEDSIDE (test 113 MG/DL 70-110 H Perfor med by certified code = GLUBED) 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40 L COVID 19 Asymptomatic IH [id number] 19:17:00 Test Item Value Reference Range Interpretation [...] moderate, high or waivedcomplexit y tests. HGB [id number] 11:49:00 Test Item Value Reference Range Interpretation [...] reported as: 35 .3 % CBC W/AUTO [id number] 11:45:00 Test Item Value Reference Range Interpretation [...] (test code NO = MDIFF) BASIC METABOLIC [id number] 07:46:00 Test Item Value Reference Range Interpretation [...] mg/dL 8.0-10.5 N CA) PLT RESPONSE TO [id number] 00:38:00 Test Item Value Reference Range Interpretation [...] be rejected by our instrumentation . HGB [id number] 00:35:00 Test Item Value Reference Range Interpretation Comments HEMOGLOBIN (test code = HGB) 11.5 g/dL 11.0-15.0 N HEMATOCRIT (test code = HCT) 33.3 % 33.0-45.0 N - CT ABD PELVIS W/O [id number] 00:00:00 [facility] : 1945 Sex: F Name: MOISE NAYAK [facility] : 1945 Age/S: 75 / F [address] [place] [address] Unit #: [id number] Loc: [place] [address] Phys: David Chong MD Acct: [id number] Dis Date: Status: ADM IN PHONE #: [phone] Exam Date: 05/08/2021 1537 FAX #: [phone] Reason: abd pain, melena EXAMS: CPT CODE: [id number] CT ABD PELVIS W/O CONT 25980 PROCEDURE INFORMATION: Exam: CT Abdomen And Pelvis Without Contrast Exam date and time: 05/08/2021 3:28 PM Age: 75 years old Clinical indication: Abdominalpain; Additional info: Abd pain, melena TECHNIQUE: Imaging protocol: Computed tomography of the abdomen and pelvis without contrast. Radiation optimization: All CT scans at this facility use at least one of these dose optimization techniques: automated exposure control; mA and/or kV adjustment per patient size (includes targeted exams where dose is matched to clinical indication); or iterative reconstruction. COMPARISON: DX XR CHEST 2 V 05/03/2021 11:44 AM FINDINGS: ABDOMINAL ORGANS: No acute CT abno rmalities of the liver, spleen, pancreas, adrenal glands or kidneys are detected. There is no evidence of acute renal collecting system obstruction or calcified renal collecting system stones. The 16 mm low-density lesion arising from the posterolateral cortex of the upper pole the right kidney demonstrates internal attenuation values compatible with a benign cyst for which no follow-up imaging is recommended. BILIARY: The gallbladder is normally distended. No significant biliary ductal dilatation is detected. GASTROINTESTINAL: Bowel assessment [...] abdominal aorta is normal in caliber. No evidence of retroperitoneal mass or enlarged retroperitoneal lymph nodes. PELVIS: The patient is status post hysterectomy. No adnexal masses or enlarged pelvic lymph nodes are identified. A pessary is noted in the vagina. The bladder has an unremarkable appearance. LOWER THORAX: The lung bases appear clear of acute disease. Scarring or atelectasis is noted in the posterior basilar right lower lobe. ADDITIONL FINDINGS: None. PAGE 1 Signed Report (CONTINUED) Name: MOISE NAYAK [facility] : 1945 Age/S: 75 / F [address] [place] [address] Unit #: [id number] Loc: [place] [address] Phys: David Chong MD Acct: [id number] Dis Date: Status: ADM IN PHONE #: [phone] Exam Date: 05/08/20211536 FAX #: [phone] Reason: abd pain, melena EXAMS: CPT CODE: [id number] CT ABD PELVIS W/O CONT 18687 (Continued) IMPRESSION: 1. No acute CT abnormalities of the abdomen or pelvis are detected. SL:131 at 1706 Reported and signed by: Devin Freedman M.D. CC: David Chong MD Technologist:RT Martine(R)(CT) CTDI: DLP: Trnscb Date/Time: 05/08/2021 (1705) tCHONDMM Orig Print D/T: S: 05/08/2021 (1706) PAGE 2 Signed ReportLACTIC [id number] 22:01:00 Test Item Value Reference Range Interpretation Comments LACTIC ACID (test code = LACT) 0.6 mmol/L 0.4-1.9 N BASIC METABOLIC [id number] 20:49:00 Test Item Value Reference Range Interpretation [...] 9.5 mg/dL 8.0-10.5 N CA) COMPREHENSIVE METABOLIC [id number] 20:49:00 Test Item Value Reference Range Interpretation [...] IUnit/L 20-125 N code = ALKP) PROTHROMBIN [id number] 20:43:00 Test Item Value Reference Range Interpretation Comments PROTHROMBIN TIME 12.0 SECONDS 9.3-12.9 N PATIENT (test code = PTP) INTERNATIONAL NORMAL 1.1 0.8-1.2 N TARGET INR BY RATIO (test code = INDICATIO N Indication INR) INR1. Prophylax is of venous thrombos is 2.0 - 3.0 (orthoped ic surgery), Proph ylaxis of venous throm bosis (other than hig h-risk surgery), Treat ment of Deep Vein Thrombosis/Pulm onary Embolism, Preve ntion of systemic emb olism - Tissue heart va lves, Acute Myocardia l Infarction (to prevent systemic emboli sm), Valvular heart disease, Atrial Fibrillation, Bileaflet mecha nical valve in aortic position.2. Mec hanical prosthetic valv es (high risk), 2. 5 - 3.5 Presence of Lup us Anticoagulant o r Antiphospholipi d Antibodies, Pre vention of systemic emb olism - Acute Myocardia l Infarction (to prevent recurrent infar ct). CBC W/O [id number] 20:35:00 Test Item Value Reference Range Interpretation [...] fL 7.0-9.0 H = MPV) COAGULATION TIME [id number] 20:22:00 Test Item Value Reference Range Interpretation Comments COAGULATION TIME 261 SECONDS Performed b y ACTIVATED (test code = certi fied can machine operator ACT) at [facility] COAGULATION TIME [id number] 20:22:00 Test Item Value Reference Range Interpretation Comments COAGULATION TIME 272 SECONDS Performed b y ACTIVATED (test code = certi fied can machine operator ACT) at [facility] PROTHROMBIN [id number] 12:32:00 Test Item Value Reference Range Interpretation Comments PROTHROMBIN TIME 11.5 SECONDS 9.3-12.9 N PATIENT (test code = PTP) INTERNATIONAL NORMAL 1.0 0.8-1.2 N TARGET INR BY RATIO (test code = INDICATIO N Indication INR) INR1. Prophylax is of venous thrombos is 2.0 - 3.0 (orthoped ic surgery), Proph ylaxis of venous throm bosis (other than hig h-risk surgery), Treat ment of Deep Vein Thrombosis/Pulm onary Embolism, Preve ntion of systemic emb olism - Tissue heart va lves, Acute Myocardia l Infarction (to prevent systemic emboli sm), Valvular heart disease, Atrial Fibrillation, Bileaflet mecha nical valve in aortic position.2. Mec hanical prosthetic valv es (high risk), 2. 5 - 3.5 Presence of Lup us Anticoagulant o r Antiphospholipi d Antibodies, Pre vention of systemic emb olism - Acute Myocardia l Infarction (to prevent recurrent infar ct). BASIC METABOLIC [id number] 12:16:00 Test Item Value Reference Range Interpretation [...] 9.4 mg/dL 8.0-10.5 N CA) CBC W/AUTO [id number] 12:03:00 Test Item Value Reference Range Interpretation [...] 0.00 x10 3/uL 0.0-0.1 N NRBC#) - CHEST 2 [id number] 00:00:00 [facility] 1945 Sex: F FAX:Devon Reees MD [phone] [place]: St: PRE Name: MOISE NAYAK : 1945 Age/S: 75/F [address] [place] [address] Unit #: [id number] Loc: [place] [address] Phys: Devon Moses MD Acct: [id number] Dis Date: Status: PRE SDC PHONE #: [phone] Exam Date: 05/03/2021 1213 FAX #: [phone] Reason: PREOP EXAMS: CPT CODE: [id number] XR CHEST 2 V 77477 PROCEDURE INFORMATION: Exam: XR Chest Exam date and time: 05/03/2021 11:44 AM Age: 75 years old Clinical indication: Other: Preop TECHNIQUE: Imaging protocol: XR of the chest. Views: 2 views. PA and Lateral COMPARISON: No relevant prior studies available. FINDINGS: Lungs: There are normal lung volumes without consolidation or interstitial op pacities. Pleural spaces: No pleural effusion. No pneumothorax. Heart/Mediastinum: The heart size isnormal. Vasculature: Aortic arch calcifications are present. Bones/joints: No acute abnormality. IMPRESSION: No acute cardiopulmonary process. at 1226 Reported and signed by: Eliud Martinez M.D. CC: Devon Moses MD Technologist: RT Pam(R) Trnscrd Date/Time/By: 05/03/2021 (6006) : By: [email or web address] Orig Print D/T: S: 05/03/2021 (0720) PAGE 1 Signed ReportCT Heart Scan Plus w Physician Order (Self Pay) 2021-03-03 15:44:17EXAMINATION: CT HEART SCAN PLUS W PHYSICIAN ORDER CLINICAL HISTORY: E78.5 Hyperlipidemia unspecified, E78.5 COMPARISON: None. CT imaging was performed with iterative reconstruction techniques and/or automated exposure control to reduce radiation dose. IMPRESSION:Sequential 2.[address] cuts were obtainedthrough the chest using ECG gating. Interactive image viewing and volumetric display and analysis were also performed. The CAC score was quantified using the Agatston scoring method. Agatston total coronary artery calcium score: 1197Left Main (LM): 60Left Anterior Descending (LAD): 265Left Circumflex (LCx): 38Right Coronary Artery (RCA): 775Posterior Descending Artery (PDA): 59 Agatston Calcium Score(total) Extent of Atherosclerosis0-Normal 1-10 - Minimal extent of zkpcdhvbljovtqn17-843 - Mild extent of rhyjztceqbgwili298-484 - Moderate extent of atherosclerosis> 400 - Severe extent of atherosclerosis RECOMMENDATION:A score of 1197 places the patient in the 90th percentile rank. That means 10%of the females at the ages from 71-75 have a higher calcium score. Intensive risk factor modification is indicated to prevent further progression (>0). Please contact your physician regarding these results. INCIDENTAL FINDINGS:None [id number] Interface, Radiology Results Incoming - 03/03/2021 10:47 AM CDT EXAMINATION: CT HEART SCAN PLUS W PHYSICIAN ORDERCLINICAL HISTORY: E78.5 Hyperlipidemia unspecified, E78.5COMPARISON: None.CT imaging was performed with iterative reconstruction techniques and/or automated exposure control to reduce radiation dose.IMPRESSION:Sequential 2.[address] cuts [...] of Atherosclerosis0-Normal 1-10 - Minimal extent of xlnosklbbusdcny94-395 - Mild extent of -429 - Moderate extent of atherosclerosis> 400 - Severe extent of atherosclerosisRECOMMENDATION:A score of 1197 places the patient in the 90th percentile rank. That means 10% of the females at the ages from 71-75 have a higher calcium score. Intensive risk factor modification is indicated to prevent further progression (>0). Please contact your physician regarding these results.INCIDENTAL FINDINGS:Zcqi5QH2BG D_PS01[facility] vascular screening heart scan plus (self pay) 2021-03-03 15:27:23CLINICAL INFORMATION: E78.5 Hyperlipidemia unspecified, E78.5 COMPARISON: [...] (DP): 116 0.85 [id number] Interface, Radiology Results 03/03/2021 10:30 AM CDT CLINICAL INFORMATION:E78.5 Hyperlipidemia [...] 135 Ankle (PT): 124 0.91Ankle (DP): 116 0.856OM1RAD_PS01[facility] 07:21[facility]00 Test Item Value Reference Range Interpretation Comments POTASSIUM (BEAKER) (test code = 2.9 meq/L 3.5-5.1 L 379) [id number] 07:21:00 Test Item Value Reference Range Interpretation Comments MAGNESIUM (BEAKER) (test code = 1.5 mg/dL 1.6-2.6 L 627) [id number] 06:36:00 Test Item Value Reference Range Interpretation Comments POTASSIUM (BEAKER) (test code = 3.5 meq/L 3.5-5.1 379) [id number] 06:36:00 Test Item Value Reference Range Interpretation Comments MAGNESIUM (BEAKER) (test code = 1.5 mg/dL 1.6-2.6 L 627) BASIC METABOLIC [id number] 10:13:00 Test Item Value Reference Range Interpretation [...] 1092) DATA TO CALCULA TE ESTIMATED GFR. [id number] 10:08:00 Test Item Value Reference Range Interpretation Comments MAGNESIUM (BEAKER) (test code = 1.4 mg/dL 1.6-2.6 L 627) [id number] 04:41:00 Test Item Value Reference Range Interpretation Comments MAGNESIUM (BEAKER) (test code = 1.4 mg/dL 1.6-2.6 L 627) BASIC METABOLIC [id number] 04:41:00 Test Item Value Reference Range Interpretation [...] ESTIMATED GFR. CBC W/PLT COUNT & AUTO [id number] 04:23:00 Test Item Value Reference Range Interpretation [...] (BEAKER) (test code = 2801) BASIC METABOLIC [id number] 06:29:00 Test Item Value Reference Range Interpretation [...] 1092) DATA TO CALCULA TE ESTIMATED GFR. [id number] 06:26:00 Test Item Value Reference Range Interpretation Comments MAGNESIUM (NORMA) (test code = 1.4 mg/dL 1.6-2.6 L 627) POCT-GLUCOSE [id number] 04:52:00 Test Item Value Reference Range Interpretation Comments POC-GLUCOSE METER 103 mg/dL 70-110 TESTED AT [facility] 6720 (NORMA) (test code = [place]EL[place] 1538) [address] CT, BRAIN, WITHOUT [id number] 01:41:00Reason for exam:->Fall and hit head on [...] to patient size and/or use of iterative reconstructiontechnique. COMPARISON: CT from 13 hours prior. FINDINGS: [...] Sinuses: Predominantly clear Tympanomastoid Cavities: Normal Other: Smallright occipital scalp hematoma. IMPRESSION:Small right occipital scalp hematoma without underlying fracture or acute intracranial traumatic abnormality. 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 Signed: Ana Maria Daniels Verified Date/Time: 04/18/2019 01:41:45 CT, CEREBRAL PERFUSION [id number] 13:14:00Reason for exam:- >Assessment for collateral perfusionAnesthesia:->NoneFINAL REPORT CT, CEREBRAL PERFUSION ANALYSIS INDICATION: Carotid stenosis, follo w upAssessment for collateral perfusion COMPARISON: CTA 04/15/2019, MRI and MRA 04/11/2019 TECHNIQUE: Rapid acquisition spiral images were obtained between the skull base and the cranial vertex during intravenous contrast infusion Perfusion imaging technique:Arterial input function: ACAVenous outflow function: TorcularSite of normal perfusion: right anterior territory DOSE REDUCTION: Dose modulation, iterative reconstruction, and/or weight-based adjustment of the mA/kV was utilized to reduce the radiation dose to as low as reasonably achievable. CT PERFUSION PARAMETRIC MAPS: CBF: Multifocal completedinfarcts within the right MCA and border zone distributions demonstrate absence of cerebral blood flow. Remainder of the right MCA territory demonstrates decreased cerebral blood flow compared to the contralateral side.MTT: Elevated in the right MCA territory.CBV: Other than the foci of completed infarcts, remainder of the cerebral blood volume is symmetric bilaterally.TTP: Elevated in the right MCA territory. IMPRESSION: Multifocal completed infarcts within the right MCA and border zone distributions.In addition, the entire right MCA territory is tissue at risk. Signed: Natalie Joseph MDReport Verified Date/Time: 04/17/2019 13:14:17 CT, CAROTID, [id number] 13:27:00Reason for exam:->cvaFINAL REPORT CLINICAL HISTORY: cvaR MCA stroke, carotid stenosis TECHNIQUE: Initially, noncontrast head CT images were performed. Contiguous contrast-enhanced axial images through the neck followed by axial images through the head with coronal and sagittal reformations to assess the arterial circulation. 3-D reconstructions were performed using a volume rendered technique separately on a workstation. This exam was performed according to the departmental dose optimization programwhich includes automated exposure control, adjustment of the mA and/or kV according to the patient size, and/or use of an iterative reconstruction technique. [...] and right MCA and branches are patent and ofnormal caliber. There is multifocal mild to moderate stenoses of the diminutive distal right vertebral artery. Bilateral airfield engineer officer and branches are of normal caliber. The major intradural venous sinuses arepatent. CTA neck:Great vessel origins: No occlusion or high-grade stenosis. Carotid arteries: Complete occlusion of the right carotid artery from its origin. Atherosclerosis of the left carotid bifurcation with less than 50% focal stenosis per NASCET criteria. Vertebral arteries: Right vertebral origin is occluded. There is reconstitution in the mid cervical segment with multifocal moderate to severestenoses. Severe focal stenosis of the left vertebral origin. Moderate degenerative changes of the cervical spine, with probable cord flattening at C5-6. Cervical soft tissues are unremarkable. Visualized lung apices are clear. IMPRESSION:1.Evolving multifocal right MCA border zone territory infarcts.2.No acute intracranial hemorrhage.3.Complete occlusion of the right ICA from its origin, with distal reconstitution beginning in the petrous segment. The right MCA and LILIA and branches are of normal caliber.4.Complete occlusion of the right vertebral origin with distal reconstitution in the mid cervical segment and multifocal moderate to severe stenoses distally.5.Severe focal stenosis of the left rock tebral origin. Remainder of the left vertebral artery is of normal caliber. Signed: Natalie Joseph Verified Date/Time: 04/15/2019 13:27:10 Electronically signed by: Triston ARTIS 04/15/2019 01:27 [facility] [id number] 13:27:00Reason for exam:->right MCA strokeFINAL REPORT CLINICAL HISTORY: cvaR MCA stroke, carotid stenosis TECHNIQUE: Initially, noncontrast head CT images were performed. Contiguous contrast-enhanced axial images through the neck followed by axial images through the head with coronal and sagittal reformations to assess the arterial circulation. 3-D reconstructions were performed using a volume rendered technique separately on a workstation. This exam was performed according to the departmental dose optimization programwhich includes automated exposure control, adjustment of the mA and/or kV according to the patient size, and/or use of an iterative reconstruction technique. [...] and right MCA and branches are patent and ofnormal caliber. There is multifocal mild to moderate stenoses of the diminutive distal right vertebral artery. Bilateral airfield engineer officer and branches are of normal caliber. The major intradural venous sinuses arepatent. CTA neck:Great vessel origins: No occlusion or high-grade stenosis. Carotid arteries: Complete occlusion of the right carotid artery from its origin. Atherosclerosis of the left carotid bifurcation with less than 50% focal stenosis per NASCET criteria. Vertebral arteries: Right vertebral origin is occluded. There is reconstitution in the mid cervical segment with multifocal moderate to severestenoses. Severe focal stenosis of the left vertebral origin. Moderate degenerative changes of the cervical spine, with probable cord flattening at C5-6. Cervical soft tissues are unremarkable. Visualized lung apices are clear. IMPRESSION:1.Evolving multifocal right MCA border zone territory infarcts.2.No acute intracranial hemorrhage.3.Complete occlusion of the right ICA from its origin, with distal reconstitution beginning in the petrous segment. The right MCA and LILIA and branches are of normal caliber.4.Complete occlusion of the right vertebral origin with distal reconstitution in the mid cervical segment and multifocal moderate to severe stenoses distally.5.Severe focal stenosis of the left rock tebral origin. Remainder of the left vertebral artery is of normal caliber. Signed: Natalie Joseph Verified Date/Time: 04/15/2019 13:27:10 Electronically signed by: Triston ARTIS 04/15/2019 01:27 PMURIC [id number] 06:14:00 Test Item Value Reference Range Interpretation Comments URIC ACID (BEAKER) (test code = 3.8 mg/dL 2.6-7.2 773) BASIC METABOLIC [id number] 06:36:00 Test Item Value Reference Range Interpretation [...] TO CALCULA TE ESTIMATED GFR. BASIC METABOLIC [id number] 06:09:00 Test Item Value Reference Range Interpretation [...] ESTIMATED GFR. CBC W/PLT COUNT & AUTO [id number] 05:36:00 Test Item Value Reference Range Interpretation [...] (BEAKER) (test code = 2801) BASIC METABOLIC [id number] 06:05:00 Test Item Value Reference Range Interpretation [...] TE ESTIMATED GFR. RAD, ABDOMEN/KUB, 1 VIEW [id number] 02:48:00Reason for exam:->Corpak placement 0111 AMFINAL REPORT RAD, ABDOMEN/KUB, 1 VIEW AP CLINICAL HISTORY: Corpak placement 0111 AM TECHNIQUE: RAD, ABDOMEN/KUB, 1 VIEW AP COMPARISON: April 12, 2019 IMPRESSION:Enteric tube tip projects over the gastric antrum. If duodenal placement is desired, consider advancing additional 5cm.There is no evidence of free air or air-fluid levels. The bowel gas pattern is within normal limits. Calcification projected over left upper abdominal quadrant is not significantly but conceivably may represent vascular calcifications. Signed: Ronald GainesepVideoStep Verified Date/Time: 04/12/2019 02:48:37 RAD, ABDOMEN/KUB, 1 VIEW [id number] 00:53:00Reason for exam:->Corpak placement verification. 0005 AMShould this be performed at the bedside?->Yes FINAL REPORT RAD, ABDOMEN/KUB, 1 VIEW AP CLINICAL HISTORY: Corpak placement verification. 0005 AM TECHNIQUE: RAD, ABDOMEN/KUB, 1 VIEW AP COMPARISON: None IMPRESSION:Enteric tube tip projects over lower esophagus. Recommend advancing 10 cm and reimaging. There is no evidence of free air or air-fluid levels. The bowel gas pattern is within normal limits. Cholecystectomy clips are present. Signed: Ronald Gainesort Verified Date/Time: 04/12/2019 00:53:54 MR, BRAIN, WITHOUT [id number] 00:10:00Reason for exam:->Ischemic Stroke Evaluationwith General AnesthesiaFINAL REPORT MR, BRAIN, WITHOUT CONTRAST, MR, MRA, NECK, WITHOUT IV CONTRAST, MR , MRA, BRAIN, WITHOUT CONTRAST INDICATION: Seizure, nontraumatic [...] artifact. The remainder of the left vertebral artery is patent. IMPRESSION:Right MCA territory acute infarct. Occlusion of cervical right ICA at its origin. MRA technique may exaggerate stenosis, consider correlation with CTA/conventional angiography to exclude string sign, if intervention is considered. Right MCA, distal M1 severe stenosis with reduced flow/narrowing of the distal right MCA divisions. Right vertebral artery occlusion with possible string sign/segmental reconstitution. Left vertebral artery origin high-grade focal stenosis versus artifact,appears patent distally. This can be further evaluated by CTA. Right cerebral hemisphere sulcal T2 hyperintensity may be sequela of leptomeningeal vascular engorgement due to collateralization versus oxygen therapy, with meningitis felt be unlikely but remains a consideration in the appropriate setting. Findings discussed with the patient's care provider, nurse Liu to be immediately conveyed to thepatient's attending physician , on 04/12/2019 12:05 AM. Signed: Ronald Gaines MDReport Verified Date/Time: 04/12/2019 00:10:30 MR, MRA, BRAIN, WITHOUT [id number] 00:10:00Reason for exam:->Ischemic Stroke Evaluationwith general anesthesiaFINAL REPORT MR, BRAIN, WITHOUT CONTRAST, MR, MRA, NECK, WITHOUT IV CONTRAST, MR , MRA, BRAIN, WITHOUT CONTRAST INDICATION: Seizure, nontraumatic [...] artifact. The remainder of the left vertebral artery is patent. IMPRESSION:Right MCA territory acute infarct. Occlusion of cervical right ICA at its origin. MRA technique may exaggerate stenosis, consider correlation with CTA/conventional angiography to exclude string sign, if intervention is considered. Right MCA, distal M1 severe stenosis with reduced flow/narrowing of the distal right MCA divisions. Right vertebral artery occlusion with possible string sign/segmental reconstitution. Left vertebral artery origin high-grade focal stenosis versus artifact,appears patent distally. This can be further evaluated by CTA. Right cerebral hemisphere sulcal T2 hyperintensity may be sequela of leptomeningeal vascular engorgement due to collateralization versus oxygen therapy, with meningitis felt be unlikely but remains a consideration in the appropriate setting. Findings discussed with the patient's care provider, nurse Liu to be immediately conveyed to thepatient's attending physician , on 04/12/2019 12:05 AM. Signed: Ronald Gaines MDReport Verified Date/Time: 04/12/2019 00:10:30 MR, MRA, NECK, WITHOUT IV [id number] 00:10:00Reason for exam:->Ischemic Stroke Evaluationwith general anesthesiaFINAL REPORT MR, BRAIN, WITHOUT CONTRAST, MR, MRA, NECK, WITHOUT IV CONTRAST, MR, MRA, BRAIN, WITHOUT CONTRAST INDICATION: Seizure, nontraumatic [...] artifact. The remainder of the left vertebral artery is patent. IMPRESSION:Right MCA territory acute infarct. Occlusion of cervical right ICA at its origin. MRA technique may exaggerate stenosis, consider correlation with CTA/conventional angiography to exclude string sign, if intervention is considered. Right MCA, distal M1 severe stenosis with reduced flow/narrowing of the distal right MCA divisions. Right vertebral artery occlusion with possible string sign/segmental reconstitution. Left vertebral artery origin high-grade focal stenosis versus artifact,appears patent distally. This can be further evaluated by CTA. Right cerebral hemisphere sulcal T2 hyperintensity may be sequela of leptomeningeal vascular engorgement due to collateralization versus oxygen therapy, with meningitis felt be unlikely but remains a consideration in the appropriate setting. Findings discussed with the patient's care provider, nurse Liu to be immediately conveyed to thepatient's attending physician , on 04/12/2019 12:05 AM. Signed: Ronald Gaines MDReport Verified Date/Time: 04/12/2019 00:10:30 [id number] 13:25:00 Test Item Value Reference Range Interpretation Comments RPR SCREEN (BEAKER) (test code = Nonreactive Nonreactive 420) HEMOGLOBIN [id number] 10:35:00 Test Item Value Reference Range Interpretation Comments HEMOGLOBIN A1C (BEAKER) (test code = 5.5 % 4.3-6.1 368) COMPREHENSIVE METABOLIC [id number] 07:01:00 Test Item Value Reference Range Interpretation [...] 1092) DATA TO CALCULA TE ESTIMATED GFR. [id number] 06:29:00 Test Item Value Reference Range Interpretation Comments MAGNESIUM (BEAKER) (test code = 1.6 mg/dL 1.6-2.6 627) FastingLIPID [id number] 06:29:00 Test Item Value Reference Range Interpretation Comments TRIGLYCERIDES (BEAKER) (test code = 103 mg/dL 540) CHOLESTEROL (BEAKER) (test code = 208 mg/dL 631) HDL CHOLESTEROL (BEAKER) (test code 51 mg/dL = 976) LDL CHOLESTEROL CALCULATED (BEAKER) 136 mg/dL (test code = 633) Triglyceride Reference Range: Low Risk <150 Borderline 150-199 High Risk 200- 499 Very High Risk >=500Cholesterol Reference Range: Low Risk <200 Borderline 200-239 High Risk >240HDL Cholesterol Reference Range: Low Risk >=60 High Risk <40LDL Cholesterol Reference Range: Optimal <100 Near Optimal 100-129 Borderline 130-159 High 160-189 Very High >=190 Fasting TSH/FREE T4 IF [id number] 06:22:00 Test Item Value Reference Range Interpretation Comments THYROID STIMULATING HORMONE 1.35 uIU/mL 0.35-4.94 (BEAKER) (test code = 772) CBC W/PLT COUNT & AUTO [id number] 06:01:00 Test Item Value Reference Range Interpretation [...] code = 2801) URINALYSIS WITH MICROSCOPIC IF [id number] 14:45:00 Test Item Value Reference Range Interpretation [...] (test code = 2795) VITAMIN B12 AND [id number] 14:43:00 Test Item Value Reference Range Interpretation Comments VITAMIN B12 (BEAKER) (test code = 1414 pg/mL 213-816 H 774) FOLATE (BEAKER) (test code = 362) > ng/mL >=7.0 TSH/FREE T4 IF [id number] 14:36:00 Test Item Value Reference Range Interpretation Comments THYROID STIMULATING HORMONE 1.54 uIU/mL 0.35-4.94 (BEAKER) (test code = 772) BASIC METABOLIC [id number] 13:34:00 Test Item Value Reference Range Interpretation [...] 1092) DATA TO CALCULA TE ESTIMATED GFR. [id number] 13:18:00 Test Item Value Reference Range Interpretation Comments MAGNESIUM (BEAKER) (test code = 1.4 mg/dL 1.6-2.6 L 627)
[2022-07-24 21:32] LABS: Absolute Lymphocytes (CBC) 0.9 K/uL (0.7-4.9); Hematocrit 38.1 % (36.0-45.0); Lymphocytes % 8.3 % (15.3-44.8); MCV 91.9 fL (80-100); RBC Red Blood Cell Count 4.14 M/uL (3.86-4.86)
[2022-07-24 21:44] LABS: Albumin 3.8 g/dL (3.4-5.0); Bilirubin Total 0.6 mg/dL (0.2-1.0); Magnesium 2.3 mg/dL (1.6-2.4); Potassium 3.9 mmol/L (3.5-5.1); Protein, Total 7.5 g/dL (6.4-8.2); Troponin High Sensitivity 6.3 pg/mL (<58.9)
--- NOTE | 2022-07-24 21:59 | RAD REPORT ---
EXAM DESCRIPTION: RAD - Chest Single View - 07/24/2022 9:53 pm CLINICAL HISTORY: near syncope Chest pain. COMPARISON: Chest Single View dated 10/24/2021; Chest Single View dated 07/28/2021; Chest Single View dated 05/07/2021; Chest Pa And Lat (2 Views) dated 04/23/2021 FINDINGS: Portable technique limits examination quality. The lungs are grossly clear. The heart is normal in size. No displaced fractures. IMPRESSION: No acute intrathoracic process suspected.
[2022-07-24] MEDS ORDERED: FAMOTIDINE 20 MG/2 ML VIAL IV ONE (22:17)
[2022-07-24] MEDS ORDERED: METHYLPREDNISOLONE 125 MG INJ ONE (22:17)
[2022-07-24] MEDS ORDERED: DIPHENHYDRAMINE 50 MG/ML VIAL ONE (22:17)
--- NOTE | 2022-07-25 00:06 | EDPHYS ---
Physician Documentation [facility] Name: Marla Campos Age: 76 yrs Sex: Female : 1945 Arrival Date: 07/24/2022 Time: 20:34 Bed 16 Private MD: ED Physician Rubio Muniz HPI: 07/24 23:23 This 76 yrs old Female presents to ER via Wheelchair with complaints of Weakness, Near rt Syncope. 23:23 Onset: The symptoms/episode began/occurred just prior to arrival. Patient had a left rt carotid endarterectomy performed on . The patient has been feeling weak and somewhat unsteady on her feet as well as lightheaded since the surgery. The patient had a near syncopal event, had to be helped down to the ground today. She called her physician who recommended that she come to the ED for further evaluation. The patient states that she feels somewhat better at this time. Denies any pain at this time. Denies other acute complaints, symptoms are moderate in severity, no other aggravating or alleviating factors.. Historical: - Allergies: 20:52 Biaxin; kb3 20:52 Breo Ellipta; kb3 20:52 CITRIC ACID; kb3 20:52 Clotrimazole-Betamethasone; kb3 20:52 Demerol; kb3 20:52 Doxycycline; kb3 20:52 Florinef Acetate; kb3 20:52 GABAPENTIN; kb3 20:52 Iodinated Contrast Media - IV Dye; kb3 20:52 Lyrica; kb3 20:52 PENICILLINS; kb3 20:52 Periostat; kb3 20:52 Prevacid; kb3 20:52 QUINOLONES; kb3 20:52 relafen; kb3 20:52 Sulfa (Sulfonamide Antibiotics); kb3 20:52 Vioxx; kb3 - PMHx: 20:52 Hypertensive disorder; GERD; Hypercholesterolemia; Asthma; fluid retention; kb3 - PSHx: 20:52 Carotid endarterectomy; Coronary Angioplasty; kb3 - Immunization history:: Adult Immunizations up to date, Client reports receiving the 2nd dose of the Covid vaccine, Last tetanus immunization: unknown. - Social history:: Smoking status: Patient denies any tobacco usage or history of. - Family history:: not pertinent. ROS: 23:23 Constitutional: Negative for fever, chills, and weight loss, Eyes: Negative for injury, rt pain, redness, and discharge, ENT: Negative for injury, pain, and discharge, Cardiovascular: Negative for chest pain, palpitations, and edema, Respiratory: Negative for shortness of breath, cough, wheezing, and pleuritic chest pain, Abdomen/GI: Negative for abdominal pain, nausea, vomiting, diarrhea, and constipation, MS/Extremity: Negative for injury and deformity, Skin: Negative for injury, rash, and discoloration, Psych: Negative for depression, anxiety, suicide ideation, homicidal ideation, and hallucinations. 23:23 Neuro: Positive for near syncope, Negative for altered mental status. Exam: 23:23 Constitutional: This is a well developed, well nourished patient who is awake, alert, rt and in no acute distress. Head/Face: Normocephalic, atraumatic. Eyes: Pupils equal round and reactive to light, extra-ocular motions intact. Lids and lashes normal. Conjunctiva and sclera are non-icteric and not injected. Cornea within normal limits. Periorbital areas with no swelling, redness, or edema. ENT: Nares patent. No nasal discharge, no septal abnormalities noted. Tympanic membranes are normal and external auditory canals are clear. Oropharynx with no redness, swelling, or masses, exudates, or evidence of obstruction, uvula midline. Mucous membranes moist. Chest/axilla: Normal chest wall appearance and motion. Nontender with no deformity. No lesions are appreciated. Cardiovascular: Regular rate and rhythm with a normal S1 and S2. No gallops, murmurs, or rubs. Normal PMI, no JVD. No pulse deficits. Respiratory: Lungs have equal breath sounds bilaterally, clear to auscultation and percussion. No rales, rhonchi or wheezes noted. No increased work of breathing, no retractions or nasal flaring. Abdomen/GI: Soft, non-tender, with normal bowel sounds. No distension or tympany. No guarding or rebound. No evidence of tenderness throughout. Skin: Warm, dry with normal turgor. Normal color with no rashes, no lesions, and no evidence of cellulitis. Neuro: Awake and alert, GCS 15, oriented to person, place, time, and situation. Cranial nerves II-XII grossly intact. Motor strength 5/5 in all extremities. Sensory grossly intact. Cerebellar exam normal. Normal gait. Psych: Awake, alert, with orientation to person, place and time. Behavior, mood, and affect are within normal limits. 23:23 ENT: Surgical wound noted to left carotid, appears to be appropriately healing, mild bruising surrounding, no hematoma noted.. 23:23 ECG was reviewed by the Attending Physician. Vital Signs: 20:49 BP 173 / 81; Pulse 79; Resp 18; Temp 98.4; Pulse Ox 96% ; Weight 68.04 kg; Height 5 ft. kb3 3 in. (160.02 cm); Pain 0/10; 21:20 BP 152 / 62; Pulse 71; Resp 16; Pulse Ox 98% on R/A; Pain 0/10; pf1 22:00 BP 159 / 66; Pulse 70; Resp 20; Pulse Ox 97% on R/A; Pain 0/10; pf1 23:00 BP 149 / 82; Pulse 82; Resp 18; Pulse Ox 100% ; Pain 0/10; pf1 07/25 00:00 BP 144 / 68; Pulse 76; Resp 16; Temp 98.1; Pulse Ox 97% on R/A; Pain 0/10; pf1 07/24 20:49 Body Mass Index 26.57 (68.04 kg, 160.02 cm) kb3 MDM: 07/24 20:44 Patient medically screened. rt 07/25 00:31 Data reviewed: vital signs, nurses notes, lab test result(s), EKG, radiologic studies. rt ED course: Presents to the ED with a near syncopal event following carotid endarterectomy about 3 4 days ago. Patient has stable vital signs in the ED. Discussed the case with her surgeon, who requested CT angiogram. CT angiogram shows expected postoperative changes. Her labs are benign, EKG is unremarkable. No evidence to suggest a dysrhythmia. I suspect that this lightheadedness is due to postsurgical effects, patient has had similar symptoms after her prior endarterectomy. At this time, patient okay to benefit from mission to the hospital. Patient symptoms have resolved throughout her stay in the ED and she is desirous of discharge. Believe this is most appropriate course of action at this time. Patient to follow-up with primary care tomorrow for blood pressure recheck. Patient to follow-up with surgeon as needed. Return precautions were discussed.. 07/24 20:56 Order name: CBC with Diff; Complete Time: 21:45 rt 07/24 20:56 Order name: CMP; Complete Time: 21:45 rt 07/24 20:56 Order name: Magnesium; Complete Time: 21:45 rt 07/24 20:56 Order name: Troponin High Sensitivity; Complete Time: 21:45 rt 07/24 20:56 Order name: Chest Single View XRAY; Complete Time: 22:01 rt 07/24 21:14 Order name: CT Neck Angio rt 07/24 20:56 Order name: EKG; Complete Time: 20:56 rt 07/24 20:56 Order name: EKG - Nurse/Tech; Complete Time: 21:20 rt 07/24 21:18 Order name: Neck Angio EDMS EC/08 23:23 Rate is 75 beats/min. Rhythm is regular, Normal Sinus Rhythm with No ectopy. QRS [place] rt is Normal. IN interval is normal. QRS interval is normal. QT interval is normal. No Q waves. T waves are Normal. No ST changes noted. Interpreted by me. Administered Medications: 22:20 Drug: SOLU-Medrol (methylPrednisoLONE) 125 mg Route: IVP; Site: right antecubital; pf1 23:20 Follow up: Response: No adverse reaction; Marked relief of symptoms pf1 22:20 Drug: Benadryl (diphenhydrAMINE) 50 mg Route: IVP; Site: right antecubital; pf1 23:20 Follow up: Response: No adverse reaction; Marked relief of symptoms pf1 22:20 Drug: Pepcid (famotidine) 20 mg Route: IVP; Site: right antecubital; pf1 23:30 Follow up: Response: No adverse reaction; Marked relief of symptoms pf1 07/25 00:20 Drug: amLODIPine 5 mg Route: PO; pf1 00:36 Follow up: Response: Marked relief of symptoms; Blood pressure is lowered pf1 Disposition Summary: 07/25/22 00:05 Discharge Ordered Location: Home rt Problem: new rt Symptoms: have improved rt Condition: Stable rt Diagnosis - Near Syncope rt Followup: rt - With: Private Physician - When: Tomorrow - Reason: Discharge Instructions: - Discharge Summary Sheet rt - Near-Syncope rt Forms: - Medication Reconciliation Form rt - Thank You Letter rt - Antibiotic Education rt - Prescription Opioid Use rt Signatures: Dispatcher [employer] EDTiffany Ding RN RN kb3 Rubio Muniz MD MD rt Maria Isabel jarvis RN RN pf1 Corrections: (The following items were deleted from the chart) 07/24 20:55 20:52 PSHx: angnioplasty; kb3 kb3
--- NOTE | 2022-07-25 00:06 | ER ---
Nurse's Notes [facility] Name: Marla Campos Age: 76 yrs Sex: Female : 1945 Arrival Date: 07/24/2022 Time: 20:34 Bed 16 Private MD: Diagnosis: Near Syncope Presentation: 07/24 20:49 Chief complaint: Patient states: near-syncopal episode while in shower at 1800. Pt kb3 reports feeling back to normal at this time. Denies striking her head, denies injury, assisted pt to sitting position in shower. Pt is 3 days post-op after carotid endarterectomy. Coronavirus screen: Vaccine status: Patient reports receiving the 2nd dose of the covid vaccine. Client denies travel out of the [place] in the last 14 days. Ebola Screen: Patient negative for fever greater than or equal to 101.5 degrees Fahrenheit, and additional compatible Ebola Virus Disease symptoms Patient denies exposure to infectious person. Patient denies travel to an Ebola-affected area in the 21 days before illness onset. No symptoms or risks identified at this time. No acute neurological deficit is noted. Initial Sepsis Screen: Does the patient meet any 2 criteria? No. Patient's initial sepsis screen is negative. Does the patient have a suspected source of infection? No. Patient's initial sepsis screen is negative. Risk Assessment: Do you want to hurt yourself or someone else? Patient reports no desire to harm self or others. Onset of symptoms was July 24, 2022 at 18:00. 20:49 Method Of Arrival: Wheelchair kb3 20:49 Acuity: DANNY 3 kb3 Triage Assessment: 20:52 The onset of the patients symptoms was less than three hours ago. General: Appears in kb3 no apparent distress. Behavior is calm, cooperative. Pain: Denies pain. Neuro: No deficits noted. Reports no symptoms at this time. [place] light-headed and near-syncope at 1800 tonight. Historical: - Allergies: 20:52 Biaxin; kb3 20:52 Breo Ellipta; kb3 20:52 CITRIC ACID; kb3 20:52 Clotrimazole-Betamethasone; kb3 20:52 Demerol; kb3 20:52 Doxycycline; kb3 20:52 Florinef Acetate; kb3 20:52 GABAPENTIN; kb3 20:52 Iodinated Contrast Media - IV Dye; kb3 20:52 Lyrica; kb3 20:52 PENICILLINS; kb3 20:52 Periostat; kb3 20:52 Prevacid; kb3 20:52 QUINOLONES; kb3 20:52 relafen; kb3 20:52 Sulfa (Sulfonamide Antibiotics); kb3 20:52 Vioxx; kb3 - PMHx: 20:52 Hypertensive disorder; GERD; Hypercholesterolemia; Asthma; fluid retention; kb3 - PSHx: 20:52 Carotid endarterectomy; Coronary Angioplasty; kb3 - Immunization history:: Adult Immunizations up to date, Client reports receiving the 2nd dose of the Covid vaccine, Last tetanus immunization: unknown. - Social history:: Smoking status: Patient denies any tobacco usage or history of. - Family history:: not pertinent. Screenin:00 [facility] ED Fall Risk Assessment (Adult) History of falling in the last 3 months, pf1 including since admission No falls in past 3 months (0 pts) Confusion or Disorientation No (0 pts) Intoxicated or Sedated No (0 pts) Impaired Gait Yes (1 pt) Mobility Assist Device Used No (0 pt) Altered Elimination No (0 pt) Score/Fall Risk Level 0 - 2 = Low Risk Oriented to surroundings, Maintained a safe environment, Educated pt \T\ family on fall prevention, incl call for assistance when getting out of bed, Assessed \T\ reinforced patient's understanding of fall precautions, Provided non-skid footwear, Hourly rounding (assess needs \T\ fall precautionary measures) done, Used ambulatory aids as needed (educated on \T\ assisted with), Used gait belt as appropriate. 21:00 Abuse screen: Denies threats or abuse. pf1 21:00 Nutritional screening: No deficits noted. Tuberculosis screening: No symptoms or risk pf1 factors identified. Assessment: 21:00 General: Appears in no apparent distress. comfortable, well groomed, well developed, pf1 Behavior is calm, cooperative, appropriate for age, quiet. 21:00 Pain: Denies pain. Neuro: Level of Consciousness is awake, alert, obeys commands, pf1 Oriented to person, place, time, situation, Upper Marker are equal bilaterally Moves all extremities. Reports dizziness, weakness since onset 1800. Cardiovascular: No deficits noted. Capillary refill < 3 seconds. Respiratory: No deficits noted. Airway is patent Trachea midline Respiratory effort is even, unlabored, Respiratory pattern is regular, symmetrical, Breath sounds are clear bilaterally. GI: No deficits noted. No signs and/or symptoms were reported involving the gastrointestinal system. Abdomen is round non-distended, Bowel sounds present X 4 quads. : No deficits noted. No signs and/or symptoms were reported regarding the genitourinary system. EENT: No deficits noted. No signs and/or symptoms were reported regarding the EENT system. Derm: Wound noted Patient has a surgical wound from an endarterectomy done on 07/21/2022. Musculoskeletal: No deficits noted. No signs and/or symptoms reported regarding the musculoskeletal system. 21:00 The patient is alert, and able to follow commands. pf1 22:00 Reassessment: Patient appears in no apparent distress at this time. Patient and/or pf1 family updated on plan of care and expected duration. Pain level reassessed. Patient is alert, oriented x 3, equal unlabored respirations, skin warm/dry/pink. Patient denies pain at this time. Patient states feeling better. Patient states symptoms have improved. Vital Signs: 20:49 BP 173 / 81; Pulse 79; Resp 18; Temp 98.4; Pulse Ox 96% ; Weight 68.04 kg; Height 5 ft. kb3 3 in. (160.02 cm); Pain 0/10; 21:20 BP 152 / 62; Pulse 71; Resp 16; Pulse Ox 98% on R/A; Pain 0/10; pf1 22:00 BP 159 / 66; Pulse 70; Resp 20; Pulse Ox 97% on R/A; Pain 0/10; pf1 23:00 BP 149 / 82; Pulse 82; Resp 18; Pulse Ox 100% ; Pain 0/10; pf1 07/25 00:00 BP 144 / 68; Pulse 76; Resp 16; Temp 98.1; Pulse Ox 97% on R/A; Pain 0/10; pf1 07/24 20:49 Body Mass Index 26.57 (68.04 kg, 160.02 cm) kb3 ED Course: 07/24 20:34 Patient arrived in ED. as 20:40 Rubio Muniz MD is Attending Physician. rt 20:52 Triage completed. kb3 20:52 Arm band placed on right wrist. Patient placed in an exam room, on a stretcher. kb3 21:00 Patient has correct armband on for positive identification. Placed in gown. Bed in low pf1 position. Call light in reach. Side rails up X 1. 21:08 Maria Isabel jarvis RN is Primary Nurse. pf1 21:15 No provider procedures requiring assistance completed. Inserted saline lock: 20 gauge pf1 in right antecubital area, using aseptic technique. Blood collected. 21:20 Magnesium Sent. pf1 21:20 CMP Sent. pf1 21:20 CBC with Diff Sent. pf1 21:21 Troponin High Sensitivity Sent. pf1 21:55 Chest Single View XRAY In Process Unspecified. EDMS 22:58 Neck Angio In Process Unspecified. EDMS 07/25 00:36 IV discontinued, intact, bleeding controlled, No redness/swelling at site. Pressure pf1 dressing applied. Administered Medications: 07/24 22:20 Drug: SOLU-Medrol (methylPrednisoLONE) 125 mg Route: IVP; Site: right antecubital; pf1 23:20 Follow up: Response: No adverse reaction; Marked relief of symptoms pf1 22:20 Drug: Benadryl (diphenhydrAMINE) 50 mg Route: IVP; Site: right antecubital; pf1 23:20 Follow up: Response: No adverse reaction; Marked relief of symptoms pf1 22:20 Drug: Pepcid (famotidine) 20 mg Route: IVP; Site: right antecubital; pf1 23:30 Follow up: Response: No adverse reaction; Marked relief of symptoms pf1 07/25 00:20 Drug: amLODIPine 5 mg Route: PO; pf1 00:36 Follow up: Response: Marked relief of symptoms; Blood pressure is lowered pf1 Medication: 07/24 21:00 VIS not applicable for this client. pf1 Outcome: 07/25 00:05 Discharge ordered by . rt 00:36 Discharged to home via wheelchair, with family. pf1 00:36 Condition: improved 00:36 Discharge instructions given to patient, Instructed on discharge instructions, follow up and referral plans. Demonstrated understanding of instructions, follow-up care. 00:37 Patient left the ED. pf1 Signatures: Dispatcher [employer] EDMS Salina Angela Kelly, RN RN kb3 Rubio Muniz MD MD rt jarvis, Maria Isabel, RN RN pf1 Corrections: (The following items were deleted from the chart) 07/24 20:55 20:52 PSHx: angnioplasty; kb3 kb3
[2022-07-25] MEDS ORDERED: AMLODIPINE 5 MG TAB ONE (00:24)
[2022-07-25 00:42] VITALS: TEMP 98.4
[2022-07-25 00:44] VITALS: BP 159/66; O2SAT 97
--- NOTE | 2022-07-25 16:26 | EKG ---
Test Date: 2022-07-24 Test Time: 20:50:18 Edge Grinder: SANDEEP MEASUREMENT RESULTS: Intervals: Rate: 75 PA: 136 QRSD: 78 QT: 382 QTc: 426 [place]: P: 68 PA: 136 QRS: 9 T: 59 INTERPRETIVE STATEMENTS: Normal sinus rhythm Normal ECG Compared to ECG 10/24/2021 20:34:45 No significant changes Electronically Signed On 07-25-22 16:25:38 SETTER HELPER by Devon Moses
--- NOTE | 2022-07-26 09:54 | RAD REPORT ---
EXAM DESCRIPTION: CT - Neck Angio - 07/25/2022 6:44 am CLINICAL HISTORY: 76 years, Female, post op syncope COMPARISON: None. TECHNIQUE: Multiple transaxial tomograms from the aortic arch through the brain were performed after administration of large bolus of IV contrast for complete opacification of the carotid arteries and intracranial vessels. Subsequent 2-D and 3-D multiplanar reformats, volume rendering technique and maximum intensity projec tion images were generated and reviewed. Stenosis measurements were performed according to NASCET dora benitez. CAROTID STENOSIS REFERENCE USING NASCET CRITERIA: % ICA stenosis = (1 - narrowest ICA diameter/diameter of distal cervical ICA) x 100. Mild - <50% stenosis. Moderate - 50-69% stenosis. Severe - 70-94% stenosis. Near occlusion - 95-99% stenosis. Occluded - 100% stenosis. This exam was performed according to our departmental dose-optimization protocol, which includes auto mated exposure control, adjustment of the mA and/or kV according to patient size and/or use of iterat diane reconstruction technique. FINDINGS: Ascending aorta: There is a normal branching pattern of the great vessels off the arch. No great ve ssel origin stenosis is identified. There is left vertebral artery dominance. Plaque formation is not ed within the origin left and right V1 segment. 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 Right carotid artery: Normal opacification is demonstrated within the right common carotid artery a nd at the carotid bifurcation. Surgical clips within the right carotid bulb/proximal right internal c arotid artery could suggest the possibility of previous endarterectomy. The right carotid bulb demons trate to be within normal limits. There is no evidence for significant stenosis. The proximal, mid an d distal portions of the right internal carotid artery demonstrate to be patent. There is no evidence for significant stenosis and/or occlusion. There is normal opacification within the proximal aspect anterior circulation without evidence of int racranial aneurysm within the incompletely visualized portions of the brain. There is no significan t stenosis or occlusion. Left carotid artery: Normal opacification is demonstrated within the left common carotid artery an d at the carotid bifurcation. Surgical clips within the right carotid bulb and small amount of gas/ai r correspond to most likely recent surgery. Small focal area of hypodensity adjacent to the carotid b ifurcation/area of surgical clips correspond to most likely post surgical changes, this area measured approximately 13 x 9 mm on axial image 40/204. Otherwise the left carotid bulb/site of endarterectom y demonstrate to be within normal limits. No evidence for stenosis/or extravasation of contrast. The proximal, mid and distal portions of the left internal carotid artery demonstrate to be patent. There is no evidence for significant stenosis and/or occlusion. Vertebrobasilar system: The posterior circulation demonstrate right vertebral artery with the absent and the great majority of the right vertebral artery at the T1/T2 segment. Visualized portions of the vertebrobasilar system demonstrate to be within normal limits. Minimal opacification of the paranasal sinuses. Lung apex: No gross abnormalities are noted within the apices. IMPRESSION: Surgical clips within the right carotid bulb/proximal right internal carotid artery coul d suggest the possibility of previous endarterectomy. Small focal area of hypodensity adjacent to the left carotid bifurcation carotid bulb area with surgi linnea clips corresponding to most likely recent post surgical changes. Otherwise the left carotid bulb- site of endarterectomy is within normal limits. No evidence for significant stenosis and/or occlusion of the right and/or left internal carotid arter y. 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 Electronically signed by: Howard Castillo MD 07/24/2022 11:45 PM DIRECTOR OF WEB MARKETING Due to temporary technical issues with the PACS/Fluency reporting system, reports are being signed by the in house radiologists without review as a courtesy to insure prompt reporting. The interpreting radiologist is fully responsible for the content of the report.
== END 2022-07-25 00:37 | disposition home or self-care (01) ==
LOC: ER 20:31
DX: R55 Syncope and collapse (principal); Z98.890 Other specified postprocedural states; I10 Essential (primary) hypertension; Z88.0 Allergy status to penicillin; Z88.1 Allergy status to other antibiotic agents; Z88.2 Allergy status to sulfonamides; Z88.5 Allergy status to narcotic agent; Z88.6 Allergy status to analgesic agent; Z88.8 Allergy status to other drugs, medicaments and biological substances; Z91.041 Radiographic dye allergy status
CPT/HCPCS: 93005; 85025; 36415; 83735; 84484; 80053; 70498; 71045; 96375; 96374; 99284; Q9967; J1200; J2930

== ENCOUNTER 2022-09-04 16:32 | Emergency (ER) | payer OTHER ==
--- OUTSIDE RECORDS SUMMARY | 2022-09-04 16:41 | XMS REPORT | Continuity of Care Document ---
:1945 Author Organization [facility] t Address [address] [place] [address] Care Team Providers Name Role Phone Garth Hopkins MD Primary Care Physician Merritt Deras Attending Clinician Hallie Charles Attending Clinician Unavailable Robert Gold Attending Clinician Unavailable Rj Evans Attending Clinician Unavailable Devon Moses Attending Clinician Unavailable Arun Bishop Attending Clinician Unavailable Garth Hopkins MD Attending Clinician Michael Osorio MD Attending Clinician CRISTIAN BONILLA MADHURA Attending Clinician Unavailable AMBROCIO FERREIRA Attending Clinician Unavailable Hallie Charles Admitting Clinician Unavailable Robert Gold Admitting Clinician Unavailable Rj Evans Admitting Clinician Unavailable Garth Hopkins V Admitting Clinician Unavailable Devon Moses Admitting Clinician Unavailable Arun Bishop Admitting Clinician Unavailable Physician, No Primary or Family Admitting Clinician UnavailCRISTIAN Morales MADHURA Admitting Clinician Unavailable RAJAN BOOKER Admitting Clinician Unavailable Payers Payer Name Policy Type Policy Number Effective Date Expiration Date Yudi VALENTINO AEMARIA ELENA [id number] Problems Condition Condition Condition Status Onset Resolution Last Treating Co mments Source Name Details Category Date Date Treatment Clinician Date Amnesia Amnesia Problem Active 2022-08-28 Me mtz (finding) (finding) 12:30:01 l Active Andrew Problem 08/28/2022 [facility] [place] 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 Manny n (disorder) (disorder) Active Problem 08/28/2022 [facility] 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:30:01 l erosis erosis Andrew (disorder) (disorder) Active Problem 08/28/2022 [facility] Dizziness Problem Active 2022-08-28 Me mtz (finding) Dizziness 12:30:01 l (finding) Vernal Active Problem 08/28/2022 [facility] 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 stinal estinal 12:30:01 l hemorrhage hemorrhage He rmann (disorder) (disorder) Active Problem 08/28/2022 [facility] Hyperlipid Hyperlipi Problem Active 2022-08-28 Memoria emia demia 12:30:01 l (disorder) (disorder) He rmann Active Problem 08/28/2022 [facility] 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 12:30:01 l (disorder) infarction He rmann (disorder) Active Problem 08/28/2022 [facility] 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) (disorder) Active Problem 08/28/2022 [facility] Syncope Syncope Problem Active 2022-08-28 Me bibi (disorder) (disorder) 12:30:01 l Active Vernal Problem 08/28/2022 [facility] Allergies, Adverse Reactions, Alerts Allergy Allergy Status Severity Reaction(s) Onset Inactive Treating Comm ents Source Name Type Date Date Clinician meperidi DA Active SV VOMITING 2022-0 [facility] ne 1-05 [facility] 00:00: d 00 [facility] fludroco DA Active SV SEVERE RASH, 2022-0 HC A rtisone SWELLING OF -05 Main mason EYES 00:00: d [facility] rofecoxi DA Active MO EYE AND BODY 2022- HC A b SWELLING 07-21 [facility] 00:00: d [facility] pregabal DA Active MO WATERY EYES 2022-0 [facility] in 05 [facility] 00:00: d [facility] fluticas DA Active MO HARD TO 2022-0 [facility] one BREATH -05 [facility] furoate 00:00: d [facility] vilanter DA Active MO HARD TO 2022- [facility] ol BREATH 07-21 [facility] 00:00: d [facility] Iodinate DA Active U UNKNOWN [facility] d 05 [facility] Contrast 00:00: d Media 00 [facility] Penicill DA Active SV INJECTION 2022- [facility] ins SITE 05 [facility] SWELLING 00:00: d 00 [facility] Sulfa DA Active MO RASH, EYE 0 [facility] (Sulfona SWELLING 05 [facility] n mide 00:00: d Antibiot 00 Medical [facility] Quinolon DA Active MO RASH, FACIAL HC A es SWELLING 07-21 [facility] 00:00: d 00 [facility] Manuel Garcia FA Active SV VOMITING 2022-0 [facility] And 05 [facility] Derivati 00:00: d ves 00 [facility] doxycycl DA Active NV ABDOMINAL 2022-0 [facility] ine PAIN -05 [facility] 00:00: d 00 [facility] sulfapyr DA Active MO EYE LID 2022-0 [facility] idine SWELLING 05 [facility] 00:00: d [facility] clotrima DA Active MO UTI, RASH 2022-0 [facility] zole -05 [facility] 00:00: d 00 [facility] clarithr DA Active NV RASH, SORE 2022-0 [facility] omycin TONGUE - [facility] 00:00: d [facility] nabumeto DA Active NV ABDOMINAL 0 [facility] ne PAIN 05 [facility] 00:00: d 00 [facility] gabapent DA Active MO DIZZINESS,NA HC A in USEA,CONSTIP 07-21 Main mason ATION 00:00: d [facility] lansopra DA Active SV NAUSEA, H[facility] zole CHILLS 07-21 [facility] 00:00: d [facility] Iodinate DA Active U UNKNOWN [facility] d 08-02 Clear Contrast 00:00: Wing Media 00 [facility] Sulfa DA Active MO RASH, EYE [facility] (Sulfona SWELLING 08-02 Clear mide 00:00: Wing Antibiot 00 [facility] Manuel Garcia FA Active SV VOMITING [facility] And 08-02 Clear Derivati 00:00: Wing ves [facility] doxycycl DA Active NV ABDOMINAL [facility] ine PAIN 08-02 Clear 00:00: Wing [facility] clotrima DA Active MO UTI, RASH H[facility] zole 08-02 Clear 00:00: Wing [facility] clarithr DA Active NV RASH, SORE H[facility] omycin TONGUE 08-02 Clear 00:00: Wing [facility] nabumeto DA Active NV ABDOMINAL [facility] ne PAIN 08-02 Clear 00:00: Wing [facility] meperidi DA Active SV VOMITING [facility] ne 08-02 Clear 00:00: Wing [facility] fludroco DA Active SV SEVERE RASH, HC A rtisone SWELLING OF 08-02 Lilian r EYES 00:00: Wing [facility] pregabal DA Active MO WATERY EYES [facility] in 08-02 Clear 00:00: Wing [facility] gabapent DA Active MO DIZZINESS,NA HC A in USEA,CONSTIP 08-02 Lilian r ATION 00:00: Wing [facility] lansopra DA Active SV NAUSEA, HCA zole CHILLS 08-02 Clear 00:00: Wing [facility] Penicill DA Active SV INJECTION 2020-07 [facility] ins SITE 0-22 Clear SWELLING 00:00: Wing [facility] Quinolon DA Active MO RASH, FACIAL 2020-07 HC A es SWELLING 0-22 Clear 00:00: Wing [facility] Manuel Garcia FA Active MO VOMITING 2020-07 [facility] And 0-22 Clear Derivati 00:00: Wing ves 00 [facility] iodine DA Active U UNKNOWN 2020-07 [facility] 0-22 Clear 00:00: Wing [facility] doxycycl DA Active NV ABDOMINAL 2020-07 [facility] ine PAIN 0-22 Clear 00:00: Wing [facility] sulfapyr DA Active MO EYE LID 2020-07 [facility] idine SWELLING 0-22 Clear 00:00: Wing [facility] clotrima DA Active MO UTI, RASH 2020-07 [facility] zole 0-22 Clear 00:00: Wing [facility] clarithr DA Active MO RASH, SORE 2020-07 [facility] omycin TONGUE 0-22 Clear 00:00: Wing [facility] meperidi DA Active NV VOMITING 2020-07 [facility] ne 0-22 Clear 00:00: Wing [facility] fludroco DA Active MO SEVERE RASH, 2020-07 HC A rtisone SWELLING OF 0-22 Lilian r EYES 00:00: Wing [facility] rofecoxi DA Active MO EYE AND BODY 2020-07 HC A b SWELLING 0-22 Clear 00:00: Wing [facility] pregabal DA Active NV WATERY EYES 2020-07 [facility] in 0-22 Clear 00:00: Wing [facility] fluticas DA Active MO HARD TO 2020-07 [facility] one BREATH 0-22 Clear furoate 00:00: Wing [facility] vilanter DA Active MO HARD TO 2020-07 [facility] ol BREATH 0-22 Clear 00:00: Wing [facility] Penicill DA Active SV 2020-07 [facility] ins 0-22 Clear 00:00: Wing [facility] Quinolon DA Active MO 2020-07 [facility] es 0-22 Clear 00:00: Wing [facility] Manuel Garcia FA Active MO 2020-07 [facility] And 0-22 Clear Derivati 00:00: Wing ves 00 [facility] iodine DA Active U 2020-07 [facility] 0-22 Clear 00:00: Wing [facility] doxycycl DA Active NV 2020-07 [facility] ine 0-22 Clear 00:00: Wing [facility] sulfapyr DA Active MO 2020-07 [facility] idine 0-22 Clear 00:00: Wing 00 [facility] clotrima DA Active MO 2020-07 [facility] zole 0-22 Clear 00:00: Wing 00 [facility] clarithr DA Active MO 2020-07 [facility] omycin 0-22 Clear 00:00: Wing 00 [facility] meperidi DA Active NV 2020-07 [facility] ne 0-22 Clear 00:00: Wing [facility] fludroco DA Active MO 2020-07 [facility] rtisone 0-22 Clear 00:00: Wing 00 [facility] rofecoxi DA Active MO 2020-07 [facility] b 0-22 Clear 00:00: Wing [facility] pregabal DA Active NV 2020-07 [facility] in 0-22 Clear 00:00: Wing 00 [facility] fluticas DA Active MO 2020-07 [facility] one 0-22 Clear furoate 00:00: Wing 00 [facility] vilanter DA Active MO 2020-07 [facility] ol 0-22 Clear 00:00: Wing 00 [facility] PREICID DA Active MO ABD PAIN, 2020-07 [facility] LIGHT 0-22 Clear HEADEDNESS, 00:00: Wing NAUSEA 00 [facility] RALAFEN DA Active NV ABDOMINAL 2020-07 [facility] PAIN 0-22 Clear 00:00: Wing [facility] Penicill DA Active SV INJECTION 2020-07 [facility] ins SITE 0-18 Clear SWELLING 00:00: Wing 00 [facility] iodine DA Active U UNKNOWN 2020-07 [facility] 0-18 Clear 00:00: Wing [facility] sulfapyr DA Active MO EYE LID 2020-07 [facility] idine SWELLING 0-18 Clear 00:00: Wing [facility] Penicill DA Active SV 2020-07 [facility] ins 0-18 Clear 00:00: Wing [facility] iodine DA Active U 2020-07 [facility] 0-18 Clear 00:00: Wing 00 [facility] sulfapyr DA Active MO 2020-07 [facility] idine 0-18 Clear 00:00: Wing 00 [facility] Prevacid Propensi Active [facility] ty to 1-30 College adverse 00:00: of reaction 00 Medicin s to e drug Nabumeto Propensi Active [facility] ne ty to 08-15 College adverse 00:00: of reaction 00 Medicin s to e drug Sulfur Propensi Active [facility] ty to 08-15 adverse 00:00: of reaction 00 Medicin s to e drug Citric Propensi Active [facility] Acid ty to 08-15 College Monohydr adverse 00:00: of ate reaction 00 Medicin s to e drug Demerol Propensi Active [facility] ty to 08-15 College adverse 00:00: of reaction 00 Medicin s to e drug Quinolon Propensi Active Swelling [facility] es ty to 04-10 [place] adverse 00:00: of reaction 00 Medicin s to e drug Rofecoxi Propensi Active Swelling [facility] b ty to 04-10 College adverse 00:00: of reaction 00 Medicin s to e drug Sulfa Propensi Active Swelling [facility] Antibiot ty to 04-10 [place] ics adverse 00:00: of reaction 00 Medicin s to e drug Bioflavo Propensi Active Nausea And [facility] noids ty to Vomiting 04-10 College adverse 00:00: of reaction 00 Medicin s to e drug Clarithr Propensi Active Rash [facility] omycin ty to 04-10 College adverse 00:00: of reaction 00 Medicin s to e drug Iodine Propensi Active [facility] ty to 04-10 [facility] Iodide adverse 00:00: Medical Containi reaction 00 Center ng s Products Pregabal Propensi Active Other (See [facility]y [facility] ty to Comments) 04-10 eyes and [facility] adverse 00:00: warm Medical reaction 00 feeling Center s stomach Penicill Propensi Active Mild [facility] to 04-10 [facility] adverse 00:00: bruise Medical reaction 00 Center s Doxycycl Propensi Active Nausea Only Abdomina l [facility] in[facility] ty to 04-10 pain [facility] Hyclate adverse 00:00: Medical reaction 00 Center s Quinolon Propensi Active Swelling, [facility] es ty to Rash 04-10 [facility] adverse 00:00: Medical reaction 00 Center s Sulfa Drug Active Swelling, [facility] (Sulfona Allergy Rash 04-10 [facility] mide 00:00: Medical Antibiot 00 Center ics) Rofecoxi Propensi Active Swelling [facility] b ty to 04-10 [facility] adverse 00:00: Medical reaction 00 Center s Clarithr Propensi Active Rash [facility] omycin ty to 04-10 [facility] adverse 00:00: Medical reaction 00 Center s Fluticas Propensi Active Shortness Of [facility] one ty to Breath 04-10 [facility] Furoate- adverse 00:00: Medical Vilanter reaction 00 Center ol s Manuel Garcia Propensi Active Nausea And [facility] And ty to Vomiting 04-10 [facility] Derivati adverse 00:00: Medical ves reaction [...] reaction 00 speech, Center s constipat ion Clotrima Propensi Active Rash uti [facility] zole ty to 04-10 College adverse 00:00: of reaction 00 Medicin s to e drug Doxycycl Propensi Active Swelling And red [facility] ine ty to 04-10 bumps on College adverse 00:00: tongue of reaction 00 Medicin s to e drug Doxycycl Propensi Active Nausea Only Abdomina l [facility] ine ty to 04-10 pain College Hyclate adverse 00:00: of reaction 00 Medicin s to e drug Fludroco Propensi Active Swelling [facility] or rtisone ty to 9-25 College adverse 00:00: of reaction 00 Medicin s to e drug FLUTICAS Allergy Active High Sob 2018- [facility] ONE -25 [facility] FUROATE- 00:00: Medical VILANTER 00 Center OL ROFECOXI Allergy Active Swelling [facility] 00:[facility]: Medical 00 Center CLARITHR Allergy Active Low Rash 2018- [facility] OMYCIN 25 [facility] 00:00: Medical 00 Center CLOTRIMA Allergy Active Low Rash 2018- [facility] ZOLE 25 [facility] 00:00: Medical 00 Center FLUDROCO Allergy Active Low Swelling 2018- [facility] RTISONE [facility] 00:00: Medical 00 Center PENICILL Allergy Active Low 2018- [facility] INS 25 [facility] 00:00: Medical 00 Center QUINOLON Allergy Active Low Swelling 2018- [facility] ES [facility] 00:[facility]: Medical 00 Center Fluticas Propensi Active Shortness Of 2018- [facility] one ty to Breath 25 [facility] Furoate- adverse 00:00: Medical Vilanter reaction 00 Center ol s Manuel Garcia Propensi Active Nausea And 2018- [facility] And ty to Vomiting 25 [facility] Derivati adverse 00:00: Medical ves reaction 00 Center s SULFA Allergy Active Med Swelling 2018- [facility] (SULFONA 25 [facility] MIDE 00:00: Medical ANTIBIOT 00 Center ICS) Penicill Propensi Active Mild 2018- Arm and [facility] ty to 9-25 shoulder [facility] adverse 00:00: bruise Medical reaction 00 Center s Quinolon Propensi Active Swelling, 2019- [facility] es ty to Rash 25 [facility] adverse 00:00: Medical reaction 00 Center s CITRUS Allergy Active N\\T\\V 2018- [facility] AND 9-25 [facility] DERIVATI 00:00: Medical VES 00 Center Sulfa Drug Active Swelling, 2019- [facility] (Sulfona Allergy Rash 25 [facility] mide 00:00: Medical Antibiot 00 Center ics) MEPERIDI Allergy Active N\\T\\V 2018- [facility] NE 9-25 [facility] 00:00: Medical 00 Center DOXYCYCL Allergy Active Nausea 2018- [facility] INE -25 [facility] 00:00: Medical 00 Center GABAPENT Allergy Active Other 2019- [facility] IN 9-25 [facility] 00:00: Medical 00 Center IODINE Allergy Active [facility] AND 04-10 [facility] IODIDE 00:00: Medical CONTAINI 00 Center NG PRODUCTS PREGABAL Allergy Active Other [facility] IN 04-10 [facility] 00:00: Medical 00 Center DOXYCYCL Allergy Active Nausea [facility] INE 04-10 [facility] HYCLATE 00:00: Medical 00 Center Fluticas Propensi Active Shortness Of [place] one ty to Breath 04-10 [place] Furoate adverse 00:00: of reaction 00 Medicin s to e drug Gabapent Propensi Active Dizzy, [facility] in ty to 04-10 nausea, College adverse 00:00: slurred of reaction 00 speech, Medicin s to constipat e drug ion Iodine Propensi Active Chele ty to 04-10 College adverse 00:00: of [...] feeling Medicin s to stomach e drug penicill penicill Active Memori a in in l [place] Sulfur Sulfur Active Memoria l [place] iodine iodine Active Memoria l [facility] Social History Social Habit Start Date Stop Date Quantity Comments Source History SDOH [facility] Alcohol Std Drinks Medica l Center History SDOH [facility] Alcohol Binge Medical Ila ter History SDMS [facility] Alcohol Comment Medical C enter History of tobacco Current smoker [facility] of use Medicine Social History 2020-10[facility]15 [facility]:19[facility]17 Alcohol intake 2019-04-15 2019-04-[address] [facility] es 00:00:00 00:00:00 non-drinker of Medical Ce nter alcohol (finding) Tobacco use and 2019-04-10 2019-04-[address] [facility] Yumiko kes exposure 00:00:00 00:00:00 Medical Center History SDOH 2019-04-10 2019-04-[address] [facility] Alcohol Frequency 00:00:00 00:00:00 Medical Center Sex [birth year] [facility] 00:00:00 00:[facility]:00 Hospital Smoking Status Start Date Stop Date Source Tobacco smoking [facility] consumption unknown Tobacco smoking status [facility] Andrew Former smoker 2019-08-15 00:00:00 2019-08-15 [facility] 00:00:00 Medicine Medications Ordered Filled Start Stop Current Ordering Indication Dosage Frequency Signature Comments Components Source Medication Medication Date Date Medication? Clinician (SIG) Name Name Herson Yes 10 mg = 1 Me moria mg oral 2-09 tab, PO, l tablet 18:05: BID, # 60 Manny n 00 tab, 4 Refill(s), Pharmacy: [facility], 162.56, cm, 08/25/22 11:54:00 [employer], Height, 71.591, kg, 08/25/22 11:54:00 [employer], Weight amLODIPine Yes PO, Daily, M emoria 2-09 5 mg l 17:54: daily, 0 Andrew 00 Refill(s) [facility] 2021-07 Yes 5 mg = 1 Aman omaira mg oral 1-18 tab, PO, l tablet 18:02: BID, # 60 Manny n 00 tab, 3 Refill(s), Pharmacy: [facility], 162.56, cm, 06/03/22 11:36:00 [employer], Height, 69.545, kg, 06/03/22 11:36:00 [employer]CH[employer], Weight [facility] 2021-07 Yes 5 mg = 1 Aman omaira mg oral 1-18 tab, PO, l tablet 18:02: BID, # 60 Manny n 00 tab, 3 Refill(s), Pharmacy: [facility], 162.56, cm, 06/03/22 11:36:00 [employer], Height, 69.545, kg, 06/03/22 11:36:00 [employer] ARCHITECT, Weight [facility] 2021-07 Yes 5 mg = 1 Aman omaira mg oral 1-18 tab, PO, l tablet 18:02: BID, # 60 Manny n 00 tab, 3 Refill(s), Pharmacy: [facility], 162.56, cm, 06/03/22 11:36:00 [employer], Height, 69.545, kg, 06/03/22 11:36:00 [employer]CH[employer], Weight [facility] 2021-07 Yes 5 mg = 1 Aman omaira mg oral 1-18 tab, PO, l tablet 18:02: BID, # 60 Manny n 00 tab, 3 Refill(s), Pharmacy: [facility], 162.56, cm, 06/03/22 11:36:00 [employer], Height, 69.545, kg, 06/03/22 11:36:00 [employer] ARCH[employer], Weight [facility] 2021-07 Yes 5 mg = 1 Aman omaira mg oral 1-18 tab, PO, l tablet 18:02: BID, # 60 Manny n 00 tab, 3 Refill(s), Pharmacy: [facility], 162.56, cm, 06/03/22 11:36:00 [employer]CH[employer], Height, 69.545, kg, 06/03/22 11:36:00 [employer] SOFTWARE ARCHITECT, Weight [facility] 2021-07 Yes 5 mg = 1 Aman omaira mg oral 1-18 tab, PO, l tablet 18:02: BID, # 60 Manny n 00 tab, 3 Refill(s), Pharmacy: [facility], 162.56, cm, 06/03/22 11:36:00 [employer]CH[employer], Height, 69.545, kg, 06/03/22 11:36:00 [employer] SOFTWARE ARCHIT[employer], Weight [facility] 2021-07 Yes 5 mg = 1 Aman omaira mg oral 1-18 tab, PO, l tablet 18:02: BID, # 60 Manny n 00 tab, 3 Refill(s), Pharmacy: [facility], 162.56, cm, 06/03/22 11:36:00 [employer]CH[employer], Height, 69.545, kg, 06/03/22 11:36:00 [employer] SOFTWARE ARCHIT[employer], Weight Namenda 2021-07 Yes 5 mg = 1 Aman omaira mg oral 1-18 tab, PO, l tablet 18:02: BID, # 60 Manny n 00 tab, 3 Refill(s), Pharmacy: [facility], 162.56, cm, 06/03/22 11:36:00 [employer], Height, 69.545, kg, 06/03/22 11:36:00 [employer]CH[employer], Weight famotidine 2021-07 Yes 20 mg = 1 Me moria 20 mg oral 1-18 tab, PO, l tablet 17:49: BID, 0 Vernal 00 Refill(s) Vitamin K2 2021-07 Yes 100 Memoria 1-18 microgram l 17:49: =, PO, Vernal 00 Daily, 0 Refill(s) Cosamin DS 2021-07 Yes 0 Memoria oral tablet 1-18 Refill(s) l 17:49: Vernal 00 famotidine 2021-07 Yes 20 mg = 1 Me moria 20 mg oral 1-18 tab, PO, l tablet 17:49: BID, 0 Vernal 00 Refill(s) Vitamin K2 2021-07 Yes 100 Memoria 1-18 microgram l 17:49: =, PO, Vernal 00 Daily, 0 Refill(s) Cosamin DS 2021-07 Yes 0 Memoria oral tablet 1-18 Refill(s) l 17:49: Andrew 00 famotidine 2021-07 Yes 20 mg = 1 Me moria 20 mg oral 1-18 tab, PO, l tablet 17:49: BID, 0 Vernal 00 Refill(s) Vitamin K2 2021-07 Yes 100 Memoria 1-18 microgram l 17:49: =, PO, Andrew 00 Daily, 0 Refill(s) Cosamin DS 2021-07 Yes 0 Memoria oral tablet 1-18 Refill(s) l 17:49: Andrew 00 famotidine 2021-07 Yes 20 mg = 1 Me moria 20 mg oral 1-18 tab, PO, l tablet 17:49: BID, 0 Andrew 00 Refill(s) Vitamin K2 2021-07 Yes 100 Memoria 1-18 microgram l 17:49: =, PO, Andrew 00 Daily, 0 Refill(s) Cosamin DS 2021-07 Yes 0 Memoria oral tablet 1-18 Refill(s) l 17:49: Vernal 00 famotidine 2021-07 Yes 20 mg = 1 Me moria 20 mg oral 1-18 tab, PO, l tablet 17:49: BID, 0 Vernal 00 Refill(s) Vitamin K2 2021-07 Yes 100 Memoria 1-18 microgram l 17:49: =, PO, Vernal 00 Daily, 0 Refill(s) Cosamin DS 2021-07 Yes 0 Memoria oral tablet 1-18 Refill(s) l 17:49: Andrew 00 famotidine 2021-07 Yes 20 mg = 1 Me moria 20 mg oral 1-18 tab, PO, l tablet 17:49: BID, 0 Vernal 00 Refill(s) Vitamin K2 2021-07 Yes 100 Memoria 1-18 microgram l 17:49: =, PO, Andrew 00 Daily, 0 Refill(s) Cosamin DS 2021-07 Yes 0 Memoria oral tablet 1-18 Refill(s) l 17:49: Vernal 00 famotidine 2021-07 Yes 20 mg = 1 Me moria 20 mg oral 1-18 tab, PO, l tablet 17:49: BID, 0 Andrew 00 Refill(s) Vitamin K2 2021-07 Yes 100 Memoria 1-18 microgram l 17:49: =, PO, Vernal 00 Daily, 0 Refill(s) Cosamin DS 2021-07 Yes 0 Memoria oral tablet 1-18 Refill(s) l 17:49: Andrew famotidine 2021-07 Yes 20 mg = 1 [...] PO, l mg oral 16:18: BID, 0 Vernal capsule 00 Refill(s) Docusate 2020-07 Yes 100 mg = 1 Mem oria Sodium 100 0-29 cap, PO, l MG Oral 16:18: BID, 0 Andrew Capsule 00 Refill(s) docusate 2020-07 Yes 100 mg = 1 Mem oria sodium 100 0-29 cap, PO, l mg oral 16:18: BID, 0 Vernal capsule 00 Refill(s) Docusate 2020-07 Yes 100 mg = 1 Mem oria Sodium 100 0-29 cap, PO, l MG Oral 16:18: BID, 0 Vernal Capsule 00 Refill(s) docusate 2020-07 Yes 100 mg = 1 Mem oria sodium 100 0-29 cap, PO, l mg oral 16:18: BID, 0 Vernal capsule 00 Refill(s) Docusate 2020-07 Yes 100 mg = 1 Mem oria Sodium 100 0-29 cap, PO, l MG Oral 16:18: BID, 0 Andrew Capsule 00 Refill(s) docusate 2020-07 Yes 100 mg = 1 Mem oria sodium 100 0-29 cap, PO, l mg oral 16:18: BID, 0 Vernal capsule 00 Refill(s) Docusate 2020-07 Yes 100 mg = 1 Mem oria Sodium 100 0-29 cap, PO, l MG Oral 16:18: BID, 0 Vernal Capsule 00 Refill(s) docusate 2020-07 Yes 100 mg = 1 Mem oria sodium 100 0-29 cap, PO, l mg oral 16:18: BID, 0 Andrew capsule 00 Refill(s) Docusate 2020-07 Yes 100 mg = 1 Mem oria Sodium 100 0-29 cap, PO, l MG Oral 16:18: BID, 0 Vernal Capsule 00 Refill(s) docusate 2020-07 Yes 100 mg = 1 Mem oria sodium 100 0-29 cap, PO, l mg oral 16:18: BID, 0 Vernal capsule 00 Refill(s) Docusate 2020-07 Yes 100 [...] PO, l mg oral 16:18: BID, 0 Refill(s) Magnesium 2020-07 Yes PO, Daily, Me [...] 0 Memoria 0-29 Refill(s) l 16:17: Andrew 00 potassium 2020-07 Yes 10 mEq = 1 [...] tab, PO, l tablet 16:16: Daily, # Vernal 00 30 tab, 0 Refill(s) potassium 2020-07 Yes 10 mEq = 1 Me moria chloride 10 0-29 cap, PO, l mEq oral 16:16: BID, # 180 Her sarmiento capsule, 00 cap, 0 extended Refill(s) release clopidogrel 2020-07 Yes 75 mg = 1 M emoria 75 mg oral 0-29 tab, PO, l tablet 16:16: Daily, # Vernal 00 30 tab, 0 Refill(s) potassium 2020-07 [...] # Andrew 00 30 tab, 0 Refill(s) pantoprazol 0 Yes 0 Memori a e 40 mg 7-29 Refill(s) l oral 16:06: Andrew enteric 00 coated tablet pantoprazol 0 Yes 0 Memori a e 40 mg 7-29 Refill(s) l oral 16:06: Vernal enteric 00 coated tablet pantoprazol 2020-0 Yes 0 Memori a e 40 mg 7-29 Refill(s) l oral 16:06: Vernal enteric 00 coated tablet pantoprazol 2020-0 Yes 0 Memori a e 40 mg 7-29 Refill(s) l oral 16:06: Andrew enteric 00 coated tablet pantoprazol 2020-0 Yes 0 Memori a e 40 mg 7-29 Refill(s) l oral 16:06: Vernal enteric 00 coated tablet pantoprazol 2020-0 Yes 0 Memori a e 40 mg 7-29 Refill(s) l oral 16:06: Andrew enteric 00 coated tablet pantoprazol 2020-0 Yes 0 Memori a e 40 mg 7-29 Refill(s) l oral 16:06: enteric coated tablet pantoprazol Yes 0 Memori a e 40 mg 02-11 Refill(s) l oral 16:06: Vernal enteric 00 coated tablet pantoprazol Yes 0 Memori a e 40 mg 02-11 Refill(s) l oral 16:06: Vernal enteric 00 coated tablet Aspirin Yes 81 mg, PO, Aman omaira 4-01 Daily, 0 l 16:45: Refill(s) aspirin Yes 81 mg, PO, Aman omaira 4-01 Daily, 0 l 16:45: Refill(s) Aspirin Yes 81 mg, PO, Aman omaira 4-01 Daily, 0 l 16:45: Refill(s) aspirin 2020- Yes 81 mg, PO, Aman omaira 4-01 Daily, 0 l 16:45: Refill(s) Aspirin Yes 81 mg, PO, Aman omaira 4-01 Daily, 0 l 16:45: Refill(s) aspirin Yes 81 mg, PO, Aman omaira 4-01 Daily, 0 l 16:45: Refill(s) Aspirin 2020-0 Yes 81 mg, PO, Aman omaira 4-01 Daily, 0 l 16:45: Refill(s) Aspirin 2020-0 Yes 81 mg, PO, Aman omaira 4-01 Daily, 0 l 16:45: Refill(s) aspirin 2020-0 Yes 81 mg, PO, Aman omaira 4-01 Daily, 0 l 16:45: Refill(s) Aspirin 0 Yes 81 mg, PO, Aman omaira 4-01 Daily, 0 l 16:45: Refill(s) aspirin 2020-0 Yes 81 mg, PO, Aman omaira 4-01 Daily, 0 l 16:45: Refill(s) Aspirin 2020-0 Yes 81 mg, PO, Aman omaira 4-01 Daily, 0 l 16:45: Refill(s) aspirin 2020-0 Yes 81 mg, PO, Aman omaira 4-01 Daily, 0 l 16:45: Refill(s) Andrew Aspirin 0 Yes 81 mg, PO, Aman omaira 4-01 Daily, 0 l 16:45: Refill(s) Andrew 00 aspirin 0 Yes 81 mg, PO, Aman omaira 4-01 Daily, 0 l 16:45: Refill(s) Vernal 00 Aspirin 0 Yes 81 mg, PO, Aman omaira 4- Daily, 0 l 16:45: Refill(s) Vernal 00 aspirin 0 Yes 81 mg, PO, Aman omaira 4-01 Daily, 0 l 16:45: Refill(s) Albuterol Yes 2.5 mg = 3 Me moria 0.83 MG/ML 4-01 mL, NEB, l Inhalant 16:44: Q6H, 0 Vernal Solution 00 Refill(s) Promethazin 0 Yes 5 mL, PO, M emoria e DM oral 4-01 Q6H, PRN l syrup 16:44: for cough, Manny n 00 # 120 mL, 0 Refill(s) Ventolin 0 Yes 2 puff, Memori a HFA 4-01 INHALATION l 16:44: , QID, 0 Vernal Refill(s) albuterol Yes 2.5 mg = 3 Me moria 0.083% 4-01 mL, NEB, l inhalation 16:44: Q6H, 0 Shari nn solution 00 Refill(s) Albuterol Yes 2.5 mg = [...] 4-01 INHALATION l 16:44: , QID, 0 Vernal Refill(s) albuterol Yes 2.5 mg = 3 Me moria 0.083% 4-01 mL, NEB, l inhalation 16:44: Q6H, 0 Shari nn solution 00 Refill(s) Albuterol 2020-0 Yes 2.5 mg = 3 Me moria 0.83 MG/ML 4-01 mL, NEB, l Inhalant 16:44: Q6H, 0 Vernal Solution 00 Refill(s) Promethazin 2020-0 Yes 5 [...] mL, NEB, l Inhalant 16:44: Q6H, 0 Vernal Solution 00 Refill(s) Promethazin 2020-0 Yes 5 [...] mL, NEB, l Inhalant 16:44: Q6H, 0 Vernal Solution 00 Refill(s) Albuterol 2020-0 Yes 2.5 mg = 3 Me moria 0.83 MG/ML 4-01 mL, NEB, l Inhalant 16:44: Q6H, 0 Andrew Solution 00 Refill(s) Promethazin 2020-0 Yes 5 mL, PO, M emoria e DM oral 4 Q6H, PRN l syrup 16:44: for cough, Manny n 00 # 120 mL, 0 Refill(s) Ventolin 2020-0 Yes 2 puff, Memori a HFA 4-01 INHALATION l 16:44: , QID, 0 Vernal 00 Refill(s) albuterol 2020-0 Yes 2.5 mg = 3 Me moria 0.083% 4-01 mL, NEB, l inhalation 16:44: Q6H, 0 Shari nn solution 00 Refill(s) Albuterol 2020-0 Yes 2.5 mg = 3 Me moria 0.83 MG/ML 4-01 mL, NEB, l Inhalant 16:44: Q6H, 0 Vernal Solution 00 Refill(s) Promethazin 2020-0 Yes 5 mL, PO, M emoria e DM oral 401 Q6H, PRN l syrup 16:44: for cough, Manny n 00 # 120 mL, 0 Refill(s) Ventolin 2020-0 Yes 2 puff, Memori a HFA 4-01 INHALATION l 16:44: , QID, 0 Vernal 00 Refill(s) albuterol 2020-0 Yes 2.5 mg [...] 4-01 INHALATION l 16:44: , QID, 0 Vernal 00 Refill(s) albuterol 0 Yes 2.5 mg = 3 Me moria 0.083% 4-01 mL, NEB, l inhalation 16:44: Q6H, 0 Shari nn solution 00 Refill(s) Albuterol 0 Yes 2.5 mg = 3 Me moria 0.83 MG/ML 4-01 mL, NEB, l Inhalant 16:44: Q6H, 0 Vernal Solution 00 Refill(s) Promethazin 0 Yes 5 mL, PO, M emoria e DM oral 4-01 Q6H, PRN l syrup 16:44: for cough, Manny n 00 # 120 mL, 0 Refill(s) Ventolin 0 Yes 2 puff, Memori a HFA 4-01 INHALATION l 16:44: , QID, 0 Andrew 00 Refill(s) albuterol 0 Yes 2.5 mg = 3 Me moria [...] Memori a e 4-01 Refill(s) l 16:43: Vernal 00 Promethazin 2020-0 Yes 0 Memori a e 4-01 Refill(s) l 16:43: Andrew 00 promethazin 2020-0 Yes 0 Memori a e 4-01 Refill(s) l 16:43: Vernal 00 Promethazin 2020-0 Yes 0 Memori a e 4-01 Refill(s) l 16:43: Andrew promethazin 2020-0 Yes 0 Memori a e 4-01 Refill(s) l 16:43: Andrew Promethazin 2020-0 Yes 0 Memori a e 4-01 Refill(s) l 16:43: Vernal 00 Promethazin 2020-0 Yes 0 Memori a e 4-01 Refill(s) l 16:43: Vernal promethazin 2020-0 Yes 0 Memori a e 4-01 Refill(s) l 16:43: Vernal 00 Promethazin 2020-0 Yes 0 Memori a e 4-01 Refill(s) l 16:43: Andrew promethazin 2020-0 Yes 0 Memori a e 4-01 Refill(s) l 16:43: Vernal 00 Promethazin 2020-0 Yes 0 Memori a e 4-01 Refill(s) l 16:43: Andrew 00 promethazin 2020-0 Yes 0 Memori a e 4-01 Refill(s) l 16:43: Promethazin 2020-0 Yes 0 Memori a e 4-01 Refill(s) l 16:43: Andrew 00 promethazin 2020-0 Yes 0 Memori a e 4-01 Refill(s) l 16:43: Andrew 00 Premarin 2020-0 Yes VAG, 0 Memoria Vaginal 4-01 Refill(s) l 16:42: Andrew Premarin 2020-0 Yes VAG, 0 Memoria Vaginal 4-01 Refill(s) l 16:42: Vernal Premarin 2020-0 Yes VAG, 0 Memoria Vaginal 4-01 Refill(s) l 16:42: Andrew Premarin 2020-0 Yes VAG, 0 Memoria Vaginal 4-01 Refill(s) l 16:42: Vernal Premarin 2020-0 Yes VAG, 0 Memoria Vaginal 4-01 Refill(s) l 16:42: Vernal Premarin 2020-0 Yes VAG, 0 Memoria Vaginal 4-01 Refill(s) l 16:42: Andrew Premarin 2020-0 Yes VAG, 0 Memoria Vaginal 4-01 Refill(s) l 16:42: Andrew 00 Premarin 0 Yes VAG, 0 Memoria Vaginal 10-15 Refill(s) l 16:42: Andrew 00 Premarin 0 Yes VAG, 0 Memoria Vaginal 10-15 Refill(s) l 16:42: atorvastati Yes 40 mg, PO, Memoria n 10-15 Bedtime, 0 l 16:41: Refill(s) atorvastati Yes 40 mg, PO, Memoria n 10-15 Bedtime, 0 l 16:41: Refill(s) atorvastati Yes 40 mg, PO, Memoria n 10-15 Bedtime, 0 l 16:41: Refill(s) atorvastati Yes 40 mg, PO, Memoria n 10-15 Bedtime, 0 l 16:41: Refill(s) atorvastati Yes 40 mg, PO, Memoria n 10-15 Bedtime, 0 l 16:41: Refill(s) atorvastati Yes 40 mg, PO, Memoria n 10-15 Bedtime, 0 l 16:41: Refill(s) atorvastati Yes 40 mg, PO, Memoria n 10-15 Bedtime, 0 l 16:41: Refill(s) atorvastati Yes 40 mg, PO, Memoria n 10-15 Bedtime, 0 l 16:41: Refill(s) atorvastati Yes 40 mg, PO, Memoria n 10-15 Bedtime, 0 l 16:41: Refill(s) atorvastati Yes 40 mg, PO, Memoria n 10-15 Bedtime, 0 l 16:41: Refill(s) atorvastati Yes 40 mg, PO, Memoria n 10-15 Bedtime, 0 l 16:41: Refill(s) atorvastati Yes 40 mg, PO, Memoria n 10-15 Bedtime, 0 l 16:41: Refill(s) Vernal 00 atorvastati Yes 40 mg, PO, Memoria n 4 Bedtime, 0 l 16:41: Refill(s) Andrew 00 atorvastati 0 Yes 40 mg, PO, Memoria n 4 Bedtime, 0 l 16:41: Refill(s) atorvastati Yes 40 mg, PO, Memoria n 10-15 Bedtime, 0 l 16:41: Refill(s) atorvastati Yes 40 mg, PO, Memoria n 4 Bedtime, 0 l 16:41: Refill(s) atorvastati Yes 40 mg, PO, Memoria n 10-15 Bedtime, 0 l 16:41: Refill(s) levocetiriz Yes See Memori a ine 4- Instructio l 16:40: ns, Vernal 00 1-2caps TID, 0 Refill(s) levocetiriz Yes See Memori a ine 4- Instructio l 16:40: ns, Vernal 00 1-2caps TID, 0 Refill(s) levocetiriz Yes See Memori a ine 4-01 Instructio l 16:40: ns, Vernal 00 1-2caps TID, 0 Refill(s) levocetiriz Yes See Memori a ine 4-01 Instructio l 16:40: ns, Andrew 00 1-2caps TID, 0 Refill(s) levocetiriz Yes See Memori a ine 4-01 Instructio l 16:40: ns, Vernal 00 1-2caps TID, 0 Refill(s) levocetiriz Yes See Memori a ine 4-01 Instructio l 16:40: ns, Andrew 00 1-2caps TID, 0 Refill(s) levocetiriz Yes See Memori a ine 4-01 Instructio l 16:40: ns, Vernal 00 1-2caps TID, 0 Refill(s) levocetiriz 2021-0 Yes See Memori a ine - Instructio l 16:40: ns, Vernal 00 1-2caps TID, 0 Refill(s) levocetiriz 2020-0 Yes See Memori a ine 10-15 Instructio l 16:40: ns, Vernal 00 1-2caps TID, 0 Refill(s) levocetiriz 2020-0 Yes See Memori a ine 10-15 Instructio l 16:40: ns, Andrew 00 1-2caps TID, 0 Refill(s) levocetiriz 2020-0 Yes See Memori a ine 10-15 Instructio l 16:40: ns, Andrew 00 1-2caps TID, 0 Refill(s) levocetiriz 2020-0 Yes See Memori a ine 10-15 Instructio l 16:40: ns, Andrew 00 1-2caps TID, 0 Refill(s) levocetiriz 2020-0 Yes See Memori a ine 10-15 Instructio l 16:40: ns, Vernal 00 1-2caps TID, 0 Refill(s) levocetiriz 2020-0 Yes See Memori a ine 10-15 Instructio l 16:40: ns, Vernal 00 1-2caps TID, 0 Refill(s) levocetiriz 2020-0 Yes See Memori a ine 10-15 Instructio l 16:40: ns, Vernal 00 1-2caps TID, 0 Refill(s) levocetiriz 2020-0 Yes See Memori a ine 10-15 Instructio l 16:40: ns, Andrew 00 1-2caps TID, 0 Refill(s) levocetiriz 2020-0 Yes See Memori a ine 10-15 Instructio l 16:40: ns, Vernal 00 1-2caps TID, 0 Refill(s) Metolazone 2020-0 Yes 5 mg, PO, Me moria 4-01 Q-M and l 16:39: Th, # 15 Andrew 00 tab, 0 Refill(s) Metolazone 2020-0 Yes 5 mg, PO, Me moria 4-01 Q-M and l 16:39: Th, # 15 Vernal 00 tab, 0 Refill(s) Metolazone 2020-0 Yes 5 mg, PO, Me moria 4- Q-M and l 16:39: Th, # 15 Vernal 00 tab, 0 Refill(s) Metolazone 2020-0 Yes 5 mg, PO, Me moria 10-15 Q-M and l 16:39: Th, # 15 Andrew 00 tab, 0 Refill(s) Metolazone 2020-0 Yes 5 mg, PO, Me moria 10-15 Q-M and l 16:39: Th, # 15 Vernal 00 tab, 0 Refill(s) Metolazone 2020-0 Yes 5 mg, PO, Me moria 10-15 Q-M and l 16:39: Th, # 15 Vernal 00 tab, 0 Refill(s) Metolazone 2020-0 Yes 5 mg, PO, Me moria 10-15 Q-M and l 16:39: Th, # 15 Vernal 00 tab, 0 Refill(s) Metolazone 2020-0 Yes 5 mg, PO, Me moria 10-15 Q-M and l 16:39: Th, # 15 Vernal 00 tab, 0 Refill(s) Metolazone 2020-0 Yes 5 mg, PO, Me moria 10-15 Q-M and l 16:39: Th, # 15 Vernal 00 tab, 0 Refill(s) Spironolact 2020-0 Yes 50 mg, PO, Memoria one 4- Daily, # l 16:38: 60 tab, 0 Vernal 00 Refill(s) spironolact 2020-0 Yes 50 mg, PO, Memoria one 4- Daily, # l 16:38: 60 tab, 0 Vernal 00 Refill(s) Spironolact 2020-0 Yes 50 mg, PO, Memoria one 4- Daily, # l 16:38: 60 tab, 0 Andrew 00 Refill(s) spironolact 2020-0 Yes 50 mg, PO, Memoria one 4- Daily, # l 16:38: 60 tab, 0 Andrew 00 Refill(s) Spironolact 2020-0 Yes 50 mg, PO, Memoria one 4- Daily, # l 16:38: 60 tab, 0 Andrew 00 Refill(s) spironolact 2020-0 Yes 50 mg, PO, Memoria one 4- Daily, # l 16:38: 60 tab, 0 Vernal 00 Refill(s) Spironolact 2020-0 Yes 50 mg, PO, Memoria one 4- Daily, # l 16:38: 60 tab, 0 Andrew 00 Refill(s) spironolact 2020-0 Yes 50 mg, PO, Memoria one 4- Daily, # l 16:38: 60 tab, 0 Andrew 00 Refill(s) Spironolact 2020-0 Yes 50 mg, PO, Memoria one 4- Daily, # l 16:38: 60 tab, 0 Vernal 00 Refill(s) spironolact 2020-0 Yes 50 mg, PO, Memoria one 4- Daily, # l 16:38: 60 tab, 0 Andrew 00 Refill(s) Spironolact 2020-0 Yes 50 mg, PO, Memoria one 4- Daily, # l 16:38: 60 tab, 0 Vernal 00 Refill(s) Spironolact 2020-0 Yes 50 mg, PO, Memoria one 4- Daily, # l 16:38: 60 tab, 0 Andrew 00 Refill(s) spironolact 2020-0 Yes 50 mg, PO, Memoria one 4- Daily, # l 16:38: 60 tab, 0 Andrew 00 Refill(s) Spironolact 2020-0 Yes 50 mg, PO, Memoria one 4- Daily, # l 16:38: 60 tab, 0 Andrew 00 Refill(s) spironolact 2020-0 Yes 50 mg, PO, Memoria one 4- Daily, # l 16:38: 60 tab, 0 Andrew 00 Refill(s) Spironolact 1-0 Yes 50 mg, PO, Memoria one 4- Daily, # l 16:38: 60 tab, 0 Andrew 00 Refill(s) spironolact 2020-0 Yes 50 mg, PO, Memoria one 4-01 Daily, # l 16:38: 60 tab, 0 Andrew 00 Refill(s) glucosamine 2020-0 Yes 3{tbl} Take 3 Ba ylor -chondroiti 1-30 Tabs by [facility] ge n 500-400 20:35: mouth. of MG tablet 19 Medicin e Cholecalcif 2020-0 Yes 25mg Take 25 mg Chele lisset (D3 1-30 [facility]) 20:34: of 48 Medicin e Docusate 2020-0 Yes Take by [facility] Sodium 100 1-30 mouth. [place] MG TABS 20:33: of 54 Medicin e MISC 2020-0 Yes Take by [facility] NATURAL 1-30 mouth. [place] PRODUCTS OR 20:33: of 54 Medicin e albuterol 2020-0 Yes 2{puff} Inhale 2 [facility] (VENTOLIN 1-30 Puffs by Raine corado HFA) 108 20:31: mouth as of (90 base) 45 needed for Medi kennedy mcg/act Wheezing. e inhaler ALBUTEROL 2020-0 Yes Inhale by [facility] SULFATE 1-30 mouth. [place] INNOSE 20:31: 0.083 NEB of 45 Nephron - Medicin use 1 vial e in nebulizer 4 times a day as needed promethazin 2020-0 Yes 6.25mg Take 6.25 Chele e 1-30 mg by [place] (PHENERGAN) 20:27: mouth as of 6.25 MG/5ML 52 needed. Medic in syrup e potassium 2020-0 Yes 20meq Take 20 Bayl or chloride 1-30 mEq by [place] (KDUR) 10 20:25: mouth 3 of MEQ tablet 17 times Medicin daily. e Levocetiriz 2020-0 Yes 5mg Take 5 mg B [facility]or ine 1-30 by mouth. [place] Dihydrochlo 20:25: of ride 5 MG 17 Medicin TABS e MAGNESIUM 2020-0 Yes 240mg Take 240 [facility] OR 1-30 mg by [place] 20:25: mouth two of 17 times Medicin daily. e metolazone 2020-0 Yes 5mg Take 5 mg Ba ylor (ZAROXOLYN) 1-30 by mouth Donte ege 5 MG tablet 20:22: every of 11 Monday and Medicin . e atorvastati 2020-0 Yes 40mg Take 1 Tab Chele n [...] [facility] one 0-09 mg by [place] (ALDACTONE) 19:51: mouth Medic al 100 MG 48 daily. Center tablet metOLazone 2018-07 Yes 5mg QD Take [address] (ZAROXOLYN) 0-09 by mouth Luke s 5 MG tablet 19:51: daily. Medi linnea 48 Center potassium 2018-07 Yes 10meq Q.[id number] Take [address] [facility] chloride 0-09 [id number] mEq by Shoaib es (KLOR-CON) 19:51: 3D [...] mg tablet 48 (two) Center times daily. ranitidine 2018-07 Yes 150mg Take [address] (ZANTAC) 0-09 mg by [facility] 150 MG 19:51: mouth as Medical tablet 48 needed for Center Heartburn. magnesium 2018-07 Yes 150mg Take [address] [facility] gluconate 0-09 mg by [facility] (MAGONATE) 19:51: mouth as Med ical 27.5 [...] linnea 48 Center potassium 2018-07 Yes 10meq Q.[id number] Take [address] chloride 0-09 [id number] mEq by Shoaib es (KLOR-CON) 19:51: 3D [...] I St (ZANTAC) 0-09 mg by [facility] 150 MG 19:51: mouth as Medical tablet [...] linnea 48 Center potassium 2018-07 Yes 10meq Q.[id number] Take [address] chloride 0-09 [id number] mEq by Shoaib wilkins (KLOR-CON) 19:51: 3D [...] linnea 48 Center potassium 2018-07 Yes 10meq Q.[id number] Take [address] chloride 0-09 [id number] mEq by Shoaib es (KLOR-CON) 19:51: 3D [...] linnea 48 Center potassium 2018-07 Yes 10meq Q.[id number] Take [address] chloride 0-09 [id number] mEq by Shoaib es (KLOR-CON) 19:51: 3D [...] linnea 48 Center potassium 2018-07 Yes 10meq Q.[id number] Take [address] chloride 0-09 [id number] mEq by Shoaib es (KLOR-CON) 19:51: 3D [...] I St (ZANTAC) 0-09 mg by [facility] 150 MG 19:51: mouth as Medical tablet [...] linnea 48 Center potassium 2018-07 Yes 10meq Q.[id number] Take [address] chloride 0-09 [id number] mEq by Shoaib wilkins (KLOR-CON) 19:51: 3D [...] I St (ZANTAC) 0-09 mg by [facility] 150 MG 19:51: mouth as Medical tablet [...] linnea 48 Center potassium 2018-07 Yes 10meq Q.[id number] Take [address] chloride 0-09 [id number] mEq by Shoaib es (KLOR-CON) 19:51: 3D [...] linnea 48 Center potassium 2018-07 Yes 10meq Q.[id number] Take [address] chloride 0-09 [id number] mEq by Shoaib es (KLOR-CON) 19:51: 3D [...] syrup times daily as needed for Nausea. aspirin EC 2018-07 2020- No 81mg Take 81 mg Chele 81 MG TBEC 0-06 10-06 by mouth. [facility]ge 00:00: 04:59 of 00 :00 Medicin e Coenzyme 2018-07- No 100mg Take 100 [facility] Q-10 100 MG 0-05 10-05 mg by [facility] CAPS 00:00: 04:59 mouth of 00 :00 daily. Medicin e Vital Signs Vital Name Observation Time Observation Value Comments Source Systolic blood 2019-08-15 19:54:00 128 mm[Hg] [facility] Diastolic blood 2019-08-15 19:54:00 57 mm[Hg] [facility] Heart rate 2019-08-15 19:54:00 67 /min [facility] Body height 2019-08-15 19:54:00 165.1 [facility] weight 2019-08-15 19:54:00 [facility]679 [facility] BMI 2019-08-15 19:54:00 24.46 kg/m2 [facility] Systolic (mm Hg) 2022-08-25 17:48:00 Aman Morales Diastolic (mm Hg) 2022-08-25 17:48:00 Mem orial Vernal Heart Rate 2022-08-25 17:48:00 [facility] Vernal Height 2022-08-25 17:48:00 5 [ft_i] [facility] Weight 2022-08-25 17:48:00 [facility] Andrew BMI Calculated 2022-08-25 17:48:00 Memori al Vernal Systolic (mm Hg) 2022-06-03 17:27:00 Aman rial Vernal Diastolic (mm Hg) 2022-06-03 17:27:00 Mem orial Vernal Heart Rate 2022-06-03 17:27:00 Memorial Vernal Height 2022-06-03 17:27:00 5 [ft_i] [facility] Andrew Weight 2022-06-03 17:27:00 [facility] Andrew BMI Calculated 2022-06-03 17:27:00 Memori al Vernal Respitory Rate 2022-04-11 15:12:00 Memori al Andrew Height 2022-04-11 15:12:00 162.56 cm [facility] Vernal Weight 2022-04-11 15:12:00 [facility] Andrew BMI Calculated 2022-04-11 15:12:00 Memori al Andrew Systolic (mm Hg) 2022-04-11 15:12:00 Aman rial Vernal Diastolic (mm Hg) 2022-04-11 15:12:00 Mem orial Andrew Heart Rate 2022-04-11 15:12:00 [facility] Andrew Systolic (mm Hg) 2021-10-07 15:45:00 Aman rial Vernal Diastolic (mm Hg) 2021-10-07 15:45:00 Mem orial Andrew Heart Rate 2021-10-07 15:45:00 Memorial Vernal Respitory Rate 2021-10-07 15:45:00 Memori al Andrew Height 2021-10-07 15:45:00 160.02 cm [facility] Vernal Weight 2021-10-07 15:45:00 [facility] Andrew BMI Calculated 2021-10-07 15:45:00 Memori al Andrew Systolic (mm Hg) 2021-05-14 15:45:00 Aman rial Andrew Diastolic (mm Hg) 2021-05-14 15:45:00 Mem orial Vernal Heart Rate 2021-05-14 15:45:00 Memorial Vernal Respitory Rate 2021-05-14 15:45:00 Memori al Vernal Height 2021-05-14 15:45:00 160.02 cm [facility] Vernal Weight 2021-05-14 15:45:00 [facility] Vernal BMI Calculated 2021-05-14 15:45:00 Memori al Andrew Systolic (mm Hg) 2021-02-11 15:35:00 Aman rial Andrew Diastolic (mm Hg) 2021-02-11 15:35:00 Mem orial Andrew Heart Rate 2021-02-11 15:35:00 [facility] Vernal Respitory Rate 2021-02-11 15:35:00 Memori al Andrew Height 2021-02-11 15:35:00 162.56 cm [facility] Vernal Weight 2021-02-11 15:35:00 [facility] Vernal BMI Calculated 2021-02-11 15:35:00 Memori al Andrew Systolic (mm Hg) 2020-11-12 15:12:00 Aman rial Vernal Diastolic (mm Hg) 2020-11-12 15:12:00 Mem orial Vernal Heart Rate 2020-11-12 15:12:00 [facility] Vernal Respitory Rate 2020-11-12 15:12:00 Memori al Andrew Weight 2020-11-12 15:12:00 [facility] Andrew Systolic (mm Hg) 2020-10-15 16:26:00 Aman rial Andrew Diastolic (mm Hg) 2020-10-15 16:26:00 Mem orial Vernal Heart Rate 2020-10-15 16:26:00 [facility] Vernal Respitory Rate 2020-10-15 16:26:00 Memori al Vernal Height 2020-10-15 16:26:00 160.02 cm [facility] Andrew Weight 2020-10-15 16:26:00 [facility] Vernal BMI Calculated 2020-10-15 16:26:00 Memori al Andrew Procedures Procedure Date / Time Performing Clinician Source Performed [id number] 2022-07-21 00:00:00 CHAAB.01 [facility] [id number] 2022-01-13 00:00:00 CHAAB.01 [facility] [id number] 2022-01-12 00:00:00 CHAAB.01 [facility] [id number] 2022-01-12 00:00:00 CHAAB.01 [facility] [id number] 2022-01-12 00:00:00 [facility] [id number] 2022-01-12 00:00:00 [facility] [id number] 2022-01-12 00:00:00 RAS[facility] [id number] 2021-08-04 00:00:00 RASSA [facility] [id number] 2021-08-04 00:00:00 RASSA [facility] [id number] 2021-08-04 00:00:00 RASSA [facility] [id number] 2021-05-09 00:00:00 LEE[facility] CT HEART SCAN PLUS W 2021-03-03 15:31:21 [facility] PHYSICIAN ORDER US VASCULAR SCREENING 2021-03-03 15:13:36 [facility] HEART SCAN PLUS Carotid [facility] endarterectomy<sup>1</sup> Cholecystectomy [facility] Hysterectomy [facility] Plan of Care Planned Activity Planned Date Details Comments Source Future Scheduled 2022-07-31 COVID-19 VACCINE (#1) [facility] Test 12:44:36 [code = COVID-19 VACCINE (#1)] Future Scheduled 2022-07-31 Hepatitis C screening [facility] Test 12:44:36 (procedure) [code = 356889869] Future Scheduled 2022-07-31 COLONOSCOPY SCREENING [facility] Test 12:44:36 [code = COLONOSCOPY SCREENING] Future Scheduled 2022-07-31 SHINGLES VACCINES (1 Met [facility] Test 12:44:36 of 2) [code = SHINGLES VACCINES (1 of 2)] Future Scheduled 2022-07-31 65+ PNEUMOCOCCAL [facility] Test 12:44:36 VACCINE (1 - PCV) [code = 65+ PNEUMOCOCCAL VACCINE (1 - PCV)] Future Scheduled 2022-07-31 [facility]INE [facility] 12:44:36 [code = INFLUENZA VACCINE] Future Scheduled 2022-07-31 [facility] (#[facility] 12:44:36 [code = COVID-19 VACCINE (#1)] Future Scheduled 2022-07-31 [facility] 12:44:36 (procedure) [code = [id number]] Future Scheduled 2022-07-31 [facility]ING [facility] 12:44:36 [code = COLONOSCOPY SCREENING] Future Scheduled 2022-07-31 SHINGLES VACCINES (1 [facility] Test 12:44:36 of 2) [code = SHINGLES VACCINES (1 of 2)] Future Scheduled 2022-07-31 65+ [facility]AL [facility] 12:44:36 VACCINE (1 - PCV) [code = 65+ PNEUMOCOCCAL VACCINE (1 - PCV)] Future Scheduled 2022-07-31 [facility]INE [facility] 12:44:36 [code = INFLUENZA VACCINE] Future Scheduled 2022-07-31 [facility]19 [facility]INE (#[facility] 12:44:36 [code = COVID-19 VACCINE (#1)] Future Scheduled 2022-07-31 [facility] 12:44:36 (procedure) [code = [id number]] Future Scheduled 2022-07-31 COLONOSCOPY SCREENING [facility] Test 12:44:36 [code = COLONOSCOPY SCREENING] Future Scheduled 2022-07-31 SHINGLES VACCINES (1 [facility] Test 12:44:36 of 2) [code = SHINGLES VACCINES (1 of 2)] Future Scheduled 2022-07-31 65+ [facility] 12:44:36 VACCINE (1 - PCV) [code = 65+ PNEUMOCOCCAL VACCINE (1 - PCV)] Future Scheduled 2022-07-31 [facility]ZA [facility]ACCINE [facility] 12:44:36 [code = INFLUENZA VACCINE] Future Scheduled 2022-07-21 [facility] 13:14:09 (procedure) [code = [id number]] Future Scheduled 2022-07-[address] [facility] 13:14:09 [code = COLONOSCOPY SCREENING] Future Scheduled 2022-07-21 SHINGLES VACCINES (1 [facility] Test 13:14:09 of 2) [code = SHINGLES VACCINES (1 of 2)] Future Scheduled 2022-07-21 65+ [facility] 13:14:09 VACCINE (1 - PCV) [code = 65+ PNEUMOCOCCAL VACCINE (1 - PCV)] Future Scheduled 2022-07-21 [facility] 13:14:09 [code = INFLUENZA VACCINE] Future Scheduled 2022-07-21 COVID-19 VACCINE (#1) [facility] 13:14:09 [code = COVID-19 VACCINE (#1)] Future Scheduled 2022-07-21 [facility] 13:14:09 (procedure) [code = [id number]] Future Scheduled 2022-07-21 COLONOSCOPY SCREENING [facility] Test 13:14:09 [code = COLONOSCOPY SCREENING] Future Scheduled 2022-07-21 SHINGLES VACCINES (1 [facility] Test 13:14:09 of 2) [code = SHINGLES VACCINES (1 of 2)] Future Scheduled 2022-07-21 65+ [facility]AL [facility] 13:14:09 VACCINE (1 - PCV) [code = 65+ PNEUMOCOCCAL VACCINE (1 - PCV)] Future Scheduled 2022-07-21 INFLUENZA VACCINE [facility] 13:14:09 [code = INFLUENZA VACCINE] Future Scheduled 2022-07-21 COVID-19 VACCINE (#1) [facility] Test 13:14:09 [code = COVID-19 VACCINE (#1)] Future Scheduled 2022-07-21 [facility] 13:14:09 (procedure) [code = [id number]] Future Scheduled 2022-07-[address] [facility] 13:14:09 [code = COLONOSCOPY SCREENING] Future Scheduled 2022-07-21 SHINGLES VACCINES (1 [facility] Test 13:14:09 of 2) [code = SHINGLES VACCINES (1 of 2)] Future Scheduled 2022-07-21 65+ PNEUMOCOCCAL [facility] Test 13:14:09 VACCINE (1 - PCV) [code = 65+ PNEUMOCOCCAL VACCINE (1 - PCV)] Future Scheduled 2022-07-21 INFLUENZA VACCINE [facility] Test 13:14:09 [code = INFLUENZA VACCINE] Future Scheduled 2022-07-21 COVID-19 [facility]ACCINE (#1) [facility] Test 13:14:09 [code = COVID-19 VACCINE (#1)] Future Scheduled 2022-07-03 COVID-19 VACCINE (#1) [facility] Test 09:16:22 [code = COVID-19 VACCINE (#1)] Future Scheduled 2022-07-03 Hepatitis C screening [facility] Test 09:16:22 (procedure) [code = 067747397] Future Scheduled 2022-07-03 COLONOS[address] [facility] Test 09:16:22 [code = COLONOSCOPY SCREENING] Future Scheduled 2022-07-03 SHINGLES VACCINES (1 [facility] Test 09:16:22 of 2) [code = SHINGLES VACCINES (1 of 2)] Future Scheduled 2022-07-03 65+ PNEUMOCOCCAL [facility] Test 09:16:22 VACCINE (1 - PCV) [code = 65+ PNEUMOCOCCAL VACCINE (1 - PCV)] Future Scheduled 2022-07-03 INFLUENZA VACCINE [facility] Test 09:16:22 [code = INFLUENZA VACCINE] Future Scheduled 2022-07-03 COVID-19 VACCINE (#1) [facility] Test 09:16:22 [code = COVID-19 VACCINE (#1)] Future Scheduled 2022-07-03 Hepatitis C screening [facility] Test 09:16:22 (procedure) [code = 399601158] Future Scheduled 2022-07-03 COLONOSCOPY SCREENING [facility] Test 09:16:22 [code = COLONOSCOPY SCREENING] Future Scheduled 2022-07-03 SHINGLES VACCINES (1 [facility] Test 09:16:22 of 2) [code = SHINGLES VACCINES (1 of 2)] Future Scheduled 2022-07-03 65+ PNEUMOCOCCAL [facility] Test 09:16:22 VACCINE (1 - PCV) [code = 65+ PNEUMOCOCCAL VACCINE (1 - PCV)] Future Scheduled 2022-07-03 INFLUENZA VACCINE [facility] Test 09:16:22 [code = INFLUENZA VACCINE] Future Scheduled 2021-03-17 INFLUENZA VACCINE (#1) [facility] [code = INFLUENZA Medical Ce [...] 00:00:00 (1 of 1 - Medical Center [id number] PCV13) [code = PNEUMOCOCCAL 65+ YRS (1 of 1 - [id number] PCV13)] Future Scheduled 1995-12-29 SHINGLES VACCINES (1 [...] Shoaib es Test 00:00:00 [facility] (procedure) [code = 040816682] Future Scheduled COVID-19 VACCINE (1) [facility] Test [code = COVID-19 VACCINE (1)] Future Scheduled Hepatitis C screening [facility] Test (procedure) [code = 979011040] Future Scheduled BREAST CANCER [facility] Test SCREENING [code = BREAST CANCER [...] ist Hospital Test [code = INFLUENZA VACCINE] Future Scheduled COLON CANCER [facility] of Test SCREENING: COLONOSCOPY Medic ine [code = COLON CANCER SCREENING: COLONOSCOPY] Future Scheduled MAMMOGRAM ANNUAL [code B [facility] of Test = MAMMOGRAM ANNUAL] Medicine Future Scheduled TETANUS SHOT (ADULT) [facility] of Test [code = TETANUS SHOT Medicin e (ADULT)] Future Scheduled HEPATITIS C SCREENING [facility] of Test [code = HEPATITIS C Medicine SCREENING] Future Scheduled FALL SCREEN [code = [facility] of Test FALL SCREEN] Medicine Future Scheduled OSTEOPOROSIS SCREENING B [facility] of Test [code = OSTEOPOROSIS Medicin e SCREENING] Future Scheduled PNEUMOVAX >=65 [facility] of Test (PPSV23) [code = Medicine PNEUMOVAX >=65 (PPSV23)] Future Scheduled PREVNAR >= 65 (PCV13) Ba [facility] of Test [code = PREVNAR >= 65 Medici ne (PCV13)] Future Scheduled FLU VACCINE > 6 MONTHS B [facility] of Test [code = FLU VACCINE > Medici ne 6 MONTHS] Future Scheduled MEDICARE IPPE (WELCOME B [facility] Test TO MEDICARE) [code = Medicin e MEDICARE IPPE (WELCOME TO MEDICARE)] Encounters Start End Encounter Admission Attending Care Care Encounter Source Date/Time Date/Time Type Type Clinicians Facility Department ID 2022-12-23 2022-12-23 Outpatient BERLIN SLADE [id number] [facility] 11:00:00 11:00:00 12 todd Morales 2022-12-20 2022-12-20 Outpatient BERLIN SLADE [id number] [facility] 10:30:00 10:30:00 08 todd Morales 2022-12-20 2022-12-20 Outpatient BERLIN SLADE [id number] [facility] 10:30:00 10:30:00 08 todd Morales 2022-08-25 2022-08-26 Outpatient BERLIN MATTHEW [id number] [facility] 17:45:00 05:59:59 Neurology 11 l Andrés Morales 2022-08-25 2022-08-25 Outpatient CAMILA Deras [id number] 11:45:00 23:59:59 Merritt 11 Cesar 2022-08-25 2022-08-25 Outpatient MHIE MHIE [id number] [facility]oria 11:45:00 11:45:00 11 todd Morales 2022-08-25 2022-08-25 Outpatient MHIE MHIE [id number] [facility]oria 11:45:00 11:45:00 11 todd Morales 2022-08-03 2022-08-03 Ambulatory MHIE MNA [id number] [facility]oria 17:15:00 17:15:00 Pre-Reg Neurology 10 todd Canoann 2022-08-03 2022-08-03 Outpatient MHIE MHIE [id number] [facility] 11:15:00 11:15:00 10 todd Morales 2022-08-03 2022-08-03 Outpatient MHIE MHIE [id number] [facility] 11:15:00 11:15:00 10 todd Morales 2022-08-03 2022-08-03 Outpatient CAMILA Deras MHMISCHER [id number] 11:15:00 11:15:00 Merritt 10 Cesar 2022-07-27 2022-07-27 Outpatient EILEEN Willard-Her HCAMN MUSN [id number] [facility] 16:22:00 16:22:00 Hallie salcedo 46 [facility] 2022-07-21 2022-07-22 Inpatient EILEEN GoldJOSECL INTE [id number] [facility] 05:12:00 11:48:[address] 2022-06-03 2022-06-04 Outpatient MHIE MNA [id number] [facility] 17:15:00 05:59:59 Neurology 09 todd Canoann 2022-06-03 2022-06-04 Outpatient MHIE MNA [id number] [facility] 17:15:00 05:59:59 Neurology 09 todd Canoann 2022-06-03 2022-06-03 Outpatient CAMILA Deras MHMISCHJESUS [id number] 11:15:00 23:59:59 Merritt 09 Cesar 2022-06-03 2022-06-03 Outpatient MHIE MHIE [id number] [facility]oria 11:15:00 11:15:00 09 todd Morales 2022-04-12 2022-04-12 Ambulatory nullFlavo MNA [id number] [facility]oria 15:00:00 15:00:00 Pre-Reg r Neurology 06 l Andrés Morales 2022-04-12 2022-04-12 Ambulatory nullFlavo MNA [id number] [facility] 15:00:00 15:00:00 Pre-Reg r Neurology 06 l Andrés Morales 2022-04-12 2022-04-12 Outpatient MHIE MHIE [id number] [facility]oria 10:00:00 10:00:00 06 todd Morales 2022-04-12 2022-04-12 Outpatient PATTI DerasNVSCHJESUS MISCHER [id number] 10:00:00 10:00:00 Merritt 06 Cesar 2022-04-11 2022-04-12 Outpatient nullFlavo MNA [id number] [facility] 15:00:00 04:59:59 r Neurology 07 l Andrés Morales 2022-04-11 2022-04-12 Outpatient nullFlavo MNA [id number] [facility] 15:00:00 04:59:59 r Neurology 07 l Andrés Morales 2022-04-11 2022-04-11 Outpatient CAMILA Deras MISCHER [id number] 10:00:00 23:59:59 Merritt Porfirio Guerrero 2022-04-11 2022-04-11 Outpatient MHIE MHIE [id number] [facility]oria 10:00:00 10:00:00 07 todd Morales 2022-01-12 2022-01-14 Inpatient EILEEN LORI Evans INTE [id number] [facility] 18:19:00 15:56:00 Rj 45 [facility] 2022-01-12 2022-01-14 Inpatient LORI Esparza INTE [id number] [facility] 18:19:00 15:56:00 Rj [id number] [facility] 2021-11-03 2021-11-03 Inpatient EILEEN LORI Moses OUTD [id number] [facility] 04:56:00 04:56:00 Devon 31 [facility] 2021-10-07 2021-10-08 Outpatient nullFlavo MNA [id number] Mem[facility] 15:30:00 04:59:59 r Neurology 05 todd Morales 2021-10-07 2021-10-08 Outpatient nullFlavo MNA [id number] [facility] 15:30:00 04:59:59 r Neurology 05 todd Morales 2021-10-07 2021-10-07 Outpatient DANIA DerasSCHER MISCHER [id number] 10:30:00 23:59:59 Merritt Reyes Guerrero 2021-10-07 2021-10-07 Outpatient MHIE MHIE [id number] [facility]oria 10:30:00 10:30:00 05 todd Morales 2021-08-04 2021-08-06 Inpatient JOSE RussellCL [facility] [id number] [facility] 21:05:00 12:24:00 Devon 94 [facility] 2021-05-14 2021-05-15 Outpatient nullFlavo MNA [id number] [facility] 15:30:00 04:59:59 r Neurology 04 todd Morales 2021-05-14 2021-05-15 Outpatient nullFlavo MNA [id number] [facility] 15:30:00 04:59:59 r Neurology 04 todd Morales 2021-05-14 2021-05-14 Outpatient DANIA DerasSCHER MISCHER [id number] 10:30:00 23:59:59 Merritt Gavi Guerrero 2021-05-14 2021-05-14 Outpatient MHIE MHIE [id number] [facility]oria 10:30:00 10:30:00 04 todd Morales 2021-05-07 2021-05-12 [id number] [facility] 22:34:00 14:15:00 Arun 86 Cl [facility] 2021-05-03 2021-05-05 Inpatient JOSE RussellCL [facility] [id number] [facility] 10:30:00 05:25:00 Devon 50 [facility] 2021-03-03 2021-03-03 [place] 97279.2.840.1 [id number] [facility]i 09:20:50 23:59:00 Encounter Garth [address]55.1.[address] 3.430.2.7 Hospit a .3.930355 l .8 2021-03-03 2021-03-03 [facility], 1.2.840.1 [id number] Methodi 09:15:00 09:19:00 Encounter Garth [address]20.1.[address] 3.430.2.7 Hospit a .3.838186 l .8 2021-03-03 2021-03-03 Travel 1.2.840.1 1.2.594.518 [id number] Methodi 00:00:00 00:00:[address] 3.430.2.7 0.2.7.3.698 Ho spita .3.694730 084.8 l .8 2021-02-11 2021-02-12 Outpatient nullFlavo MNA [id number] [facility] 15:15:00 04:59:59 r Neurology 03 l Andrés Morales 2021-02-11 2021-02-12 Outpatient nullFlavo MNA [id number] [facility] 15:15:00 04:59:59 r Neurology 03 l Andrés Morales 2021-02-11 2021-02-11 Outpatient [facility] [id number] 10:15:00 23:59:59 [place] Rosalee Guerrero 2021-02-11 2021-02-11 [facility] [id number] 10:15:00 10:15:00 03 l Andrew 2021-02-08 2021-02-08 Travel 1.2.840.1 1.2.044.351 [id number] Methodi 00:00:00 00:00:[address] 3.430.2.7 0.2.7.3.698 Ho spita .3.907008 084.8 l .8 2021-02-03 2021-02-03 Transcribe [facility] 1.2.840.1 [id number] Methodi 00:00:00 00:00:00 Orders Garth [address]23.1.[address] 3.430.2.7 Hospit a .3.822054 l .8 2020-11-12 2020-11-13 Outpatient nullFlavo MNA [id number] [facility] 15:00:00 04:59:59 r Neurology 02 l [place] Vernal 2020-11-12 2020-11-13 Outpatient nullFlavo MNA [id number] [facility] 15:00:00 04:59:59 r Neurology 02 l [place] Andrew 2020-11-12 2020-11-12 [id number] 10:00:00 23:59:59 Merritt 02 Cesar 2020-11-12 2020-11-12 Outpatient MHIE MHIE [id number] [facility]oria 10:00:00 10:00:00 02 todd Vernal 2020-11-03 2020-11-04 Outpatient nullFlavo MNA [id number] [facility] 18:00:00 04:59:59 r Neurology 01 l [place] Andrew 2020-11-03 2020-11-04 Outpatient nullFlavo MNA [id number] [facility] 18:00:00 04:59:59 r Neurology 01 l [place] Vernal 2020-11-03 2020-11-03 Outpatient [id number] 13:00:00 23:59:59 Merritt Cesar 2020-11-03 2020-11-03 Outpatient MHIE MHIE [id number] Memoria 13:00:00 13:00:00 01 todd Andrew 2020-10-15 2020-10-16 Outpatient nullFlavo MNA [id number] [facility] 16:30:00 04:59:59 r Neurology 00 l Andrés Morales 2020-10-15 2020-10-16 Outpatient nullFlavo MNA [id number] [facility] 16:30:00 04:59:59 r Neurology 00 l Andrés Morales 2020-10-15 2020-10-15 [facility] [id number] 11:30:00 23:59:59 Merritt 00 Cesar 2019-08-15 2019-08-15 Office LOGAN Osorio 1.2.840.114 [id number] [facility] 13:47:41 15:50:19 Visit Michael AMBULATOR 350.1.13.21 College Y 0.2.7.2.686 of [id number] [facility] kennedy 800 e 2019-04-24 2019-05-03 Inpatient 3 BONILLAVIDHYA ARELLANOSL CVA [id number] [employer] 20:39:00 11:00:00 [facility] [address] [facility] [place] Results Test Description Test Time Test Comments Results Result [facility] e Comments - HEAD AND NECK 2022-07-27 17:00:00 [facility] : 1945 Sex: F FAX: Yumiko Charles [phone] [place]: St: REG Name: MOISE NAYAK [facility] : 1945 Age/S: 76/F [address] [facility] Unit #: [id number] [place] 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 All measurements are reported in longitudinal, AP, and transverse dimensions. FINDINGS/ IMPRESSION: The left carotid arteries visualized with normal caliber and Doppler flow signal demonstrated throughout. There is mild diffuse soft tissue edema, but no localized fluid collections or hematoma noted. at 1700 Reported and signed by: Ravi Calderon M.D. CC: Hallie Charles NP Technologist: ANDRIA HOSKINS [facility] Date/Time/By: 07/27/2022 (1700) : By: [email or web address] PAGE 1 Signed Report FAX: Yumiko Charles [phone] [place]: St: REG Name: MOISE NAYAK [facility] : 1945 Age/S: 76/F [address] [facility] Unit #: [id number] Loc: [place], [place] Phys: [place] [address] Acct: [id number] Dis Date: Status: REG CLI PHONE #: [phone] Exam Date: 07/27/20221650 FAX #: [phone] Reason: LOCALIZED SWELLING,MASS,LUMP/HE MATOMA EXAMS: CPT CODE: [id number] US HEAD AND NECK 49108 (Continued) Orig Print D/T: S: 07/27/2022 (2133) PAGE 2 Signed Report SURGICAL 2022-07-22 15:10:00 Test Item Value Reference Range Interpretation Comme nts SURGICAL RUN (test DATE: 07/22/22 [place] - LAB PAGE 1 RUN TIME: 1510 Specimen Inquiry RUN USER: INTERFACE code = PATIENT SR) : MOISE NAYAK ACCT #: [id number] LOC: VERONICA U #: [id number] AGE/SX: 76/F ROOM: [facility] RE07/21/22REG DR: Milagros Gold : 45 BED: 1 DIS: 07/22/22 STATUS: DIS IN TLOC: SPEC #: [id number] RECD: 3-1027 STATUS: SOUNatalia REQ #: [id number] DONTE: 07/21/22- SUBM DR: Robert Gold MD ENTE RED: 07/21/22 SP TYPE: SURGICAL OTHR DR: Garth Hopkins MD, Anas MDORDERED: 8830 4, ANATOMIC SPEC COPIES TO: Robert Gold MD [address] [facility]. [address] [place] [address] Garth Hopkins MD [address] [place] [address] Chi Valencia MD [address] [place] [address] PROCEDURES: 883 04 (07/21/22) TISSUES: A. CAROTID PLAQUE WITH DECAL CLINICAL HISTORY SAME FINAL DIAGNOSIS Carotid plaque, left, endarterectomy: Atherosclerotic plaque with calcification. GROSS DESCRIP TION Received in formalin labeled "left carotid artery "are 2 segments of lehman-yellowatherosclerotic plaques , up to 3.4 cm in length, 0.8 cm in diameter, with representativesections submi tted (A). Technical component [facility] [place] [address] Unless gross only, the diagnosis is based upon microscopic examination. CONTINUED ON NE XT PAGE RUN DATE: 07/22/22 [place] - LAB PAGE 2 RUN TIME: 1510 Specimen Inquiry RUN USER: INTERFACE SPEC #: [id number] PATIENT: MOISE NAYAK #[id number] (Continued) ---- GROSS DESCRIPTION (Cont inued) Immunohistochemistry: This test was developed and its performance characteristicsd etermined by this laboratory. It has not been approved nor does it need approvalby the [place] FDA. Appro priate positive and negative controls are reviewed and judgedto be acceptable. This laboratory is certified under the Clinical Laboratory ImprovementAmendments (CLIA-88) as qualified to [facility] high complexity clinical laboratory testing. CLINICAL INFORMATION OCCLUSION AND STENOSIS OF LEFT CAROTID ARTERY Signed SIGNATURE ON FILE Arnold Evans 07/22/22 4420 END OF REPORT CBC W/AUTO [id number] 06:49:00 Test Item Value Reference Range Interpretation [...] (test code NO = MDIFF) BASIC METABOLIC [id number] 06:18:00 Test Item Value Reference Range Interpretation [...] the recommended for nadir for GFRby the [facility] on for Adults.The GFR will not calculate if th e sex is unknown or if thepatient's ag e is <18 years. 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 COVID 19 Asymptomatic IH [id number] 15:19:00 Test Item Value Reference Range Interpretation [...] y tests. UA RFLX MICR CULT IF [id number] 13:20:00 Test Item Value Reference Range Interpretation [...] culture: Flank PainSpecimen Description: CLEAN CATCHCOMPREHENSIVE METABOLIC [id number] 13:13:00 Test Item Value Reference Range Interpretation [...] = HGBA1C%) 5.2 %A1C 4.8-6.0 N PROTHROMBIN [id number] 12:55:00 Test Item Value Reference Range Interpretation [...] (to prevent recurrent infar ct). THROMBOPLASTIN TIME [id number] 12:55:00 Test Item Value Reference Range Interpretation Comments THROMBOPLASTIN TIME 26.4 Seconds 25.0-39.5 N Therape utic Range: PARTIAL (test code = 50.4 - 88.3 Seconds PTT) Effective 10/30/2018 CBC W/AUTO [id number] 12:45:00 Test Item Value Reference Range Interpretation [...] code NO = MDIFF) - DUP EXTRACRANIAL [id number] 00:00:00 [facility] 1945 Sex: F Name: MOISE NAYAK [facility] : 1945 Age/S: 76 / F [address] [place] [address] Blvd Unit #: [id number] Loc: [place] [address] Phys: Robert Gold MD Acct: [id number] Dis Date: Status: PRE INPHONE #: [phone] Exam Date: 07/19/2022 1358 FAX #: [phone] Reason: 165.22. EXAMS: CPT CODE: [id number] DUP EXTRACRANIAL DIGNA 12423 PROCEDURE INFORMATION: Exam: US Duplex Bilateral Extracranial [...] Right common carotid artery: No occlusion or stenosis. Waveforms are normal. Right internal carotid artery: Elevated peak systolic velocity of 144.9 cm/s.Right ICA/CCA ratio: Within normal limits. Right external carotid artery: No stenosis in the origin.Right vertebral artery: Antegrade flow. Left common carotid artery: No occlusion or stenosis. Waveforms are normal. Left internal carotid artery: Elevated peak systolic velocity of 183.7 cm/s. Left ICA/CCA ratio: Within normal limits. Left external carotid artery: No stenosis in the origin. Left vertebral artery: Antegrade flow. IMPRESSION: About 50-69% stenosis of bilateral proximal internal carotidarteries as above. REFERENCES: SRU CRITERIA. The degree of internal carotid artery stenosis is basedon criteria defined by the Society of Radiologists in Ultrasound (SRU). Normal is no stenosis. Mild is less than 50% stenosis. Moderate is 50-69% stenosis. Severe is greater than 69% stenosis to near oc clusion. Near occlusion is a markedly narrowed lumen. Total occlusion is no detectable patent lumen. at 1603 Reported and signed by: James Orr M.D. PAGE 1 Signed Report (CONTINUED) Name: MOISE NAYAK : 1945 Age/S: 76 / F [address] [place] [address] Unit #: [id number] Loc: [place] [address] Phys: Robert Gold MD Acct: [id number] Dis Date: Status: PRE IN PHONE #: [phone] Exam Date: 07/19/2022 1358 FAX #: [phone] Reason: 165.22. EXAMS: CPT CODE: [id number] DUP EXTRACRANIAL DIGNA 09485 (Continued) CC: Robert Gold MD Technologist: Janice Meneses RDMS(AB) Trnscb Date/Time: 07/19/2022 (1602) [email or web address] Orig Print D/T: S: 07/19/2022 (1602) Probe: PAGE 2 Signed Report- XR CHEST 2 [id number] 00:00:00 [facility] 1945 Sex: F FAX:Robert Watt [phone] [place]: St: PRE Name: MOISE NAYAK [facility] : 1945 Age/S: 76/F [address] [place] [address] Unit #: [id number] Loc: [place] [address] Phys: Robert Gold MD Acct: [id number] Dis Date: Status: PRE IN PHONE #: [phone] Exam Date: 07/19/2022 1317 FAX #: Reason: PREOP EXAMS: CPT CODE: [id number] XR CHEST 2 V 51859 PROCEDURE INFORMATION: Exam: XR Chest Exam date and time: 07/19/2022 12:56 PM Age: 76 years old Clinical indication: Pre-operative exam; Respiratory screening exam; Additional info: Preop TECHNIQUE: Imaging protocol: Radiologic examof the chest. Views: 2 views. PA and Lateral COMPARISON: CR XR CHEST 2 V 01/13/2022 9:46 AM FINDINGS:Lungs: There are normal lung volumes without consolidation or interstitial oppacities. Pleural spaces: No pleural effusion. No pneumothorax. Heart/Mediastinum: The heart size is normal. Vasculature: Aortic arch calcifications are present. Bones/joints: No acute abnormality. IMPRESSION: No acute cardiopulmonary process. at 1552 Reported and signed by: Eliud Martinez M.D. CC: Robert Gold MD Technologist: MICHAEL Moctezuma) Trnscrd Date/Time/By: 07/19/2022 (1552) : By: [email or web address] PAGE 1 Signed ReportSURGICAL 2022-01-18 15:32:00 Test Item Value Reference Range Interpretation Comments SURGICAL (test code = SR) R UN DATE: 01/18/22 [place] - LAB PAGE 1 RUN TIME: 1532 Specimen Inquiry RUN USER: INTERFACE P ATIENT: MOISE NAYAK LOC: [place] U #: [id number] AGE/SX: 76/F ROOM: [facility] RE01/12/22REG DR: Rj Evans DO : 45 BED: 1 DIS: 01/14/22 STATUS: DIS IN TLOC: SPEC #: [id number] RECD: 01/14/22 STATUS: SOUT REQ #: [id number] DONTE: 01/13/22- SUBM DR: Rj Evans DO ENTERED: 01/14/22 SP TYPE: SURGICAL OTHR DR: Edyta Reynolds MD, Abdul Hannan MD Dalal, Rajesh V MD Mouchli, Anas MD Raslan, Saleem MDORDERED: 24094, ANATOMIC SPEC COPIES TO: Edyta Reynolds MD [address] [place] [address] Robert Gold MD [address] [facility]. [address] [place] [address] Garth Hopkins MD [address] [place] [address] Chi Valencia MD [address] [place] [address] Devon Moses MD [address] [facility] [address] [place], [place] [id number] Rj Evans DO [address] [place] [address] PROCEDURES: 96352 (01/14/22) TISSUES: A. ARTERY, ATHEROMATOUS PLAQUE - RT CONTINUED ON NEXT PAGE R UN DATE: 01/18/22 [place] - LAB PAGE 2 RUN TIME: 1532 Specimen Inquiry RUN USER: INTERFACE S PEC #: [id number] PATIENT: MOISE NAYAK #[id number] (Continued) CLINICAL HISTORY SAME FINAL DIAGNOSIS Right carotid plaque, segment: Atherosclerotic plaque. GROSS DESCRIPTION Received is 1 segment of arroyo-white fibrotic tissue measuring 3.1 cm in largest dimension. Sections are submitted. Technical component performed at [facility],[address] [place] [address] Unless gross only, the diagnosis is based [...] 01/18/22 1532 END OF REPORT BASIC METABOLIC [id number] 05:12:00 Test Item Value Reference Range Interpretation [...] code = 8.2 mg/dL 8.0-10.5 N CA) [id number] 05:12:00 Test Item Value Reference Range Interpretation Comments MAGNESIUM (test code = MAG) 2.54 mg/dL 1.80-2.40 H CBC W/AUTO [id number] 04:59:00 Test Item Value Reference Range Interpretation [...] (test code NO = MDIFF) BASIC METABOLIC [id number] 18:30:00 Test Item Value Reference Range Interpretation [...] code = 8.0 mg/dL 8.0-10.5 N CA) [id number] 18:30:00 Test Item Value Reference Range Interpretation Comments PHOSPHOROUS (test code = PHOS) 3.1 MG/DL 2.5-4.9 N [id number] 18:30:00 Test Item Value Reference Range Interpretation Comments MAGNESIUM (test code = MAG) 1.47 mg/dL 1.80-2.40 L CALCIUM [id number] 18:30:00 Test Item Value Reference Range Interpretation Comments CALCIUM IONIZED (test code = ETHAN) 1.21 MMOL/L 1.12-1.32 N CBC W/AUTO [id number] 18:11:00 Test Item Value Reference Range Interpretation [...] (test NO code = MDIFF) BASIC METABOLIC [id number] 15:19:00 Test Item Value Reference Range Interpretation [...] = 8.3 mg/dL 8.0-10.5 N CA) HGB [id number] 14:35:00 Test Item Value Reference Range Interpretation Comments HEMOGLOBIN (test code = HGB) 10.4 g/dL 11.0-15.0 L HEMATOCRIT (test code = HCT) 30.5 % 33.0-45.0 L [id number] 13:05:00 Test Item Value Reference Range Interpretation Comments ACT-ISTAT (test code 347 SEC 74-137 H Perform ed by certified = ACTI) 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 HDL CHOLESTEROL 62.4 mg/dL 39-96 N (test code = HDL) LIPOPROTEIN LDL 102.0 mg/dL 0-100 H <100 OPTIMA U477-765 (test code = LDL) NEAR OPTIM AL/ABOVE [id number] [id number] 89 HIGH>WD=238 [place] HIGH*Guidelines provided by the National Choles terol EducationProgra m Adult Treatment Panel III [id number] 11:59:00 Test Item Value Reference Range Interpretation Comments MAGNESIUM (test code = MAG) 1.85 mg/dL 1.80-2.40 N PROTHROMBIN [id number] 10:22:00 Test Item Value Reference Range Interpretation [...] (to prevent recurrent infar ct). THROMBOPLASTIN TIME [id number] 10:22:00 Test Item Value Reference Range Interpretation Comments THROMBOPLASTIN TIME 22.6 Seconds 25.0-39.5 L Therape utic Range: PARTIAL (test code = 50.4 - 88.3 Seconds PTT) Effective 10/30/2018 CBC W/AUTO [id number] 09:58:00 Test Item Value Reference Range Interpretation [...] code = MDIFF) COVID 19 Asymptomatic IH [id number] 07:05:00 Test Item Value Reference Range Interpretation [...] waivedcomplexit y tests. 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 Pulmonary vasculature is unremarkable. Atherosclerotic calcification of the aorta. Bones/joints: No acute abnormality seen. IMPRESSION: No acute cardiopulmonary findings at 1323 Reported and signed by: Renee Mcknight M.D. CC: Hallie Charles PROGRAM SUPERVISOR; Vilma TRAN; Rj Evans DO Technologist: RT Lizbet(Vahid) Trnscrd Date/Time/By: 01/13/2022 (1323) : By: [email or web address] Orig Print D/T: S: 01/13/2022 (1613) PAGE 1 Signed ReportBASIC METABOLIC [id number] 13:29:00 Test Item Value Reference Range Interpretation [...] = 9.7 mg/dL 8.0-10.5 N CA) PROTHROMBIN [id number] 13:21:00 Test Item Value Reference Range Interpretation [...] (to prevent recurrent infar ct). 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 CBC W/AUTO [id number] 14:37:00 Test Item Value Reference Range Interpretation [...] NO = MDIFF) - XR CHEST 2 [id number] 00:00:00 [facility] 1945 Sex: F FAX:Devon Reese MD [phone] [place]: St: PRE Name: MOISE NAYAK [facility] : 1945 Age/S: 75/F [address] [place] [address] Unit #: [id number] Loc: [place] [address] Phys: Devon Moses MD Acct: [id number] Dis Date: Status: PRE [facility] [place] PHONE #: [phone] Exam Date: 11/01/2021 1342 FAX #: [phone]: PREOP EXAMS: CPT CODE: [id number] XR CHEST 2 V 00307 PROCEDURE INFORMATION: Exam: XR Chest Exam date [...] Bonilla D.O. CC: Devon Moses MD Technologist: Leena Brown RT(R) Trnscrd Date/Time/By: 11/01/2021 (4208) : By: [email or web address] Orig Print D/T: S: 11/01/2021 (3469) PAGE 1 Signed ReportHGB [id number] 08:45:00 Test Item Value Reference Range Interpretation Comments HEMOGLOBIN (test code = HGB) 8.9 g/dL 11.0-15.0 L HEMATOCRIT (test code = HCT) 27.4 % 33.0-45.0 L B-TYPE NATRIURETIC [id number] 15:10:00 Test Item Value Reference Range Interpretation Comments B-TYPE NATRIURETIC PEPTIDE (test 59.0 PG/ML 0-100 N code = BNP) BASIC METABOLIC [id number] 14:55:00 Test Item Value Reference Range Interpretation [...] 8.7 mg/dL 8.0-10.5 N CA) CBC W/AUTO [id number] 14:39:00 Test Item Value Reference Range Interpretation [...] DIFF REQUIRED (test code NO = MDIFF) [id number] 19:05:00 Test Item Value Reference Range Interpretation Comments ACT-ISTAT (test code 154 SEC 74-137 H Perform ed by certified = ACTI) pulp refiner operator at [facility] [id number] 17:59:00 Test Item Value Reference Range Interpretation Comments ACT-ISTAT (test code 178 SEC 74-137 H Perform ed by certified = ACTI) pulp refiner operator at [facility] [id number] 17:08:00 Test Item Value Reference Range Interpretation Comments ACT-ISTAT (test code 207 SEC 74-137 H Perform ed by certified = ACTI) pulp refiner operator at [facility] [id number] 16:04:00 Test Item Value Reference Range Interpretation Comments ACT-ISTAT (test code 243 SEC 74-137 H Perform ed by certified = ACTI) pulp refiner operator at [facility] [id number] 15:26:00 Test Item Value Reference Range Interpretation Comments ACT-ISTAT (test code 237 SEC 74-137 H Perform ed by certified = ACTI) pulp refiner operator at [facility] BASIC METABOLIC [id number] 14:58:00 Test Item Value Reference Range Interpretation [...] = 9.6 mg/dL 8.0-10.5 N CA) PROTHROMBIN [id number] 14:51:00 Test Item Value Reference Range Interpretation [...] (to prevent recurrent infar ct). CBC W/AUTO [id number] 14:46:00 Test Item Value Reference Range Interpretation [...] NO = MDIFF) - XR CHEST 2 [id number] 00:00:00 [facility] : 1945 Sex: F FAX:Devon Reese MD [phone] [place]: St: PRE Name: MOISE NAYAK [facility] [place] : 1945 Age/S: 75/F [address] [place] [address] Bl Unit #: [id number] Loc: [place] [address] Phys: Devon Moses MD Acct: [id number] Dis Date: Status: PRE SDC PHONE #: [phone] Exam Date: 08/02/2021 1340 FAX #: [phone] Reason: PREOP EXAMS: CPT CODE: [id number] XR CHEST 2 V 95691 PROCEDURE INFORMATION: Exam: XR Chest Exam date [...] D.O. CC: Devon Moses MD Technologist: RT Corrine(Vahid) Trnscrd Date/Time/By: 08/02/2021 (141) : By: [email or web address] Orig Print D/T: S: 08/02/2021 (7860) PAGE 1 Signed ReportCBC W/AUTO [id number] 08:01:00 Test Item Value Reference Range Interpretation [...] (test code NO = MDIFF) BASIC METABOLIC [id number] 07:50:00 Test Item Value Reference Range Interpretation [...] code = 9.5 mg/dL 8.0-10.5 N CA) [id number] 07:50:00 Test Item Value Reference Range Interpretation Comments MAGNESIUM (test code = MAG) 1.70 mg/dL 1.80-2.40 L BASIC METABOLIC [id number] 07:53:00 Test Item Value Reference Range Interpretation [...] code = 8.6 mg/dL 8.0-10.5 N CA) [id number] 07:53:00 Test Item Value Reference Range Interpretation Comments MAGNESIUM (test code = MAG) 1.68 mg/dL 1.80-2.40 L CBC W/AUTO [id number] 07:46:00 Test Item Value Reference Range Interpretation [...] (test code NO = MDIFF) CBC W/AUTO [id number] 08:42:00 Test Item Value Reference Range Interpretation [...] x10 3/uL 0.0-0.1 N NRBC#) BASIC METABOLIC [id number] 08:13:00 Test Item Value Reference Range Interpretation [...] code = 8.9 mg/dL 8.0-10.5 N CA) [id number] 08:13:00 Test Item Value Reference Range Interpretation Comments MAGNESIUM (test code = MAG) 1.49 mg/dL 1.80-2.40 L GLUCOSE [id number] 12:42:00 Test Item Value Reference Range Interpretation Comments GLUCOSE BEDSIDE (test 113 MG/DL 70-110 H Perfor med by certified code = GLUBED) pulp refiner operator at [facility] HGB [id number] 11:54:00 Test Item Value Reference Range Interpretation Comments HEMOGLOBIN (test code = HGB) 12.9 g/dL 11.0-15.0 N HEMATOCRIT (test code = HCT) 36.8 % 33.0-45.0 N CBC W/AUTO [id number] 08:27:00 Test Item Value Reference Range Interpretation [...] (test code NO = MDIFF) BASIC METABOLIC [id number] 08:04:00 Test Item Value Reference Range Interpretation [...] code = 9.3 mg/dL 8.0-10.5 N CA) [id number] 08:04:00 Test Item Value Reference Range Interpretation Comments MAGNESIUM (test code = MAG) 1.44 mg/dL 1.80-2.40 L COVID 19 Asymptomatic IH [id number] 19:17:00 Test Item Value Reference Range Interpretation [...] moderate, high or waivedcomplexit y tests. HGB [id number] 11:49:00 Test Item Value Reference Range Interpretation [...] reported as: 35 .3 % CBC W/AUTO [id number] 11:45:00 Test Item Value Reference Range Interpretation [...] (test code NO = MDIFF) BASIC METABOLIC [id number] 07:46:00 Test Item Value Reference Range Interpretation [...] mg/dL 8.0-10.5 N CA) PLT RESPONSE TO [id number] 00:38:00 Test Item Value Reference Range Interpretation [...] be rejected by our instrumentation . HGB [id number] 00:35:00 Test Item Value Reference Range Interpretation Comments HEMOGLOBIN (test code = HGB) 11.5 g/dL 11.0-15.0 N HEMATOCRIT (test code = HCT) 33.3 % 33.0-45.0 N - CT ABD PELVIS W/O [id number] 00:00:00 [facility] : 1945 Sex: F Name: MOISE NAYAK [facility] : 1945 Age/S: 75 / F [address] [place] [address] Unit #: [id number] Loc: [place] [address] Phys: David Chong MD Acct: [id number] Dis Date: Status: ADM IN PHONE #: [phone] Exam Date: 05/08/20217 FAX #: [phone] Reason: abd pain, melena EXAMS: CPT CODE: [id number] CT ABD PELVIS W/O CONT 66556 PROCEDURE INFORMATION: Exam: CT Abdomen And Pelvis [...] no evidence of free intraperitoneal air. No significantfree intraperitoneal fluid. RETROPERITONEUM: The abdominal aorta is [...] (CONTINUED) Name: MOISE NAYAK [facility] : 1945 Age/S: 75 / F [address] [place] [address] Blvd Unit #: [id number] Loc: [place] [address] Phys: David Chong MD Acct: [id number] Dis Date: Status: ADM IN PHONE #: [phone] Exam Date: 05/08/2021 1537 FAX #: [phone] Reason: abd pain, melena EXAMS: CPT CODE: [id number] CT ABD PELVIS W/O CONT 70703 (Continued) IMPRESSION: 1. No acute CT abnormalities of the abdomen or pelvis are detected. SL:131 at 1706 Reported and signedby: Devin Freedman M.D. CC: David Chong MD Technologist:Rain Quezada RT(R)(CT) CTDI: DLP: Trnscb Date/Time: 05/08/2021 (1705) tDINA Orig Print D/T: S: 05/08/2021 (1706) PAGE 2 SignedReportLACTIC [id number] 22:01:00 Test Item Value Reference Range Interpretation Comments LACTIC ACID (test code = LACT) 0.6 mmol/L 0.4-1.9 N BASIC METABOLIC [id number] 20:49:00 Test Item Value Reference Range Interpretation [...] 9.5 mg/dL 8.0-10.5 N CA) COMPREHENSIVE METABOLIC [id number] 20:49:00 Test Item Value Reference Range Interpretation [...] IUnit/L 20-125 N code = ALKP) PROTHROMBIN [id number] 20:43:00 Test Item Value Reference Range Interpretation [...] (to prevent recurrent infar ct). CBC W/O [id number] 20:35:00 Test Item Value Reference Range Interpretation [...] fL 7.0-9.0 H = MPV) COAGULATION TIME [id number] 20:22:00 Test Item Value Reference Range Interpretation Comments COAGULATION TIME 261 SECONDS Performed b y ACTIVATED (test code = certi fied pulp refiner operator ACT) at [facility] COAGULATION TIME [id number] 20:22:00 Test Item Value Reference Range Interpretation Comments COAGULATION TIME 272 SECONDS Performed b y ACTIVATED (test code = certi fied pulp refiner operator ACT) at [facility] PROTHROMBIN [id number] 12:32:00 Test Item Value Reference Range Interpretation [...] - Acute Myocardia l Infarction (to prevent recurre nt infarct). BASIC METABOLIC [id number] 12:16:00 Test Item Value Reference Range Interpretation [...] 9.4 mg/dL 8.0-10.5 N CA) CBC W/AUTO [id number] 12:03:00 Test Item Value Reference Range Interpretation [...] 0.0-0.1 N NRBC#) - XR CHEST 2 [id number] 00:00:00 [facility] : 1945 Sex: F FAX:Devon Reese MD [phone] [place]: St: PRE Name: MOISE NAYAK [facility] : 1945 Age/S: 75/F [address] [place] [address] Unit #: [id number] Loc: [place] [address] Phys: Devon Moses MD Acct: [id number] Dis Date: Status: PRE [facility] [place] PHONE #: [phone] Exam Date: 05/03/2021 1213 FAX #: [phone] Reason: PREOP EXAMS: CPT CODE: [id number] XR CHEST 2 V 46277 PROCEDURE INFORMATION: Exam: XR ChestExam date and time: 05/03/2021 11:44 AM Age: 75 years old Clinical indication: Other: Preop TECHNIQUE: Imaging protocol: XR of the chest. Views: 2 views. PA and Lateral COMPARISON: No relevant prior studies available. FINDINGS: Lungs: There are normal lung volumes without consolidation or interstitialoppacities. Pleural spaces: No pleural effusion. No pneumothorax. Heart/Mediastinum: The heart size is normal. Vasculature: Aortic arch calcifications are present. Bones/joints: No acute abnormality. IMPRESSION: No acute cardiopulmonary process. Electronically Signed by Mehrdad Martinez on 05/03/2021 at 1226 Reported and signed by: Eliud Martinez M.D. CC: Devon Moses MD Technologist: Mike Sumner RT(R) Trnscrd Date/Time/By: 05/03/2021 (1226) : By: [email or web address] Orig Print D/T: S: 05/03/2021 (122) PAGE 1 Signed ReportCT Heart Scan Plus [...] of Atherosclerosis0-Normal 1-10 - Minimal extent of ldvyhvxtobwhzmn47-430 - Mild extent of qfpngwusyfmjjzi608-852 - Moderate extent of atherosclerosis> 400 - [...] of Atherosclerosis0-Normal 1-10 - Minimal extent of fiolgnftdamdtqr67-284 - Mild extent of hlzoumfsmdshgji146-269 - Moderate extent of atherosclerosis> 400 - Severe extent of atherosclerosisRECOMMENDATION:A score of 1197 places the patient in the 90th percentile rank. That means 10% of the females at the ages from 71-75 have a higher calcium score. Intensive risk factor modification is indicated to prevent further progression (>0). Please contact your physician regarding these results.INCIDENTAL FINDINGS:[id number] vascular screening heart scan plus (self pay) [...] INFORMATION:E78.5 Hyperlipidemia unspecified, E78.5COMPARISON:none.TECHNIQUE: Sonographic evaluation of thebilateral carotid arteries as well as the abdominal aorta was performed with grayscale analysis. Ankle brachial indices of the lower legs and pulse Doppler waveforms with peak systolic velocities were also obtained.IMPRESSION:CAROTID ARTERIES: The bilateral carotid arteries are of normal course, caliber, and contour without aneurysmal dilatation or focal dissection. Diffuse vascular calcifications are seen. Consider additional imaging with dedicated carotid artery ultrasound for further evaluation and velocity measurements.ABDOMINAL AORTA: The visualized aspects of the abdominal aorta are of normalcourse, caliber, and contour without aneurysmal dilatation or focal dissection. Maximal diameter is 1.4 cm. Scattered vascular calcifications are seen.ANKLE-BRACHIAL INDICES:RIGHT: PSV (mmHg) ABIBrachial: 136 Ankle (PT): 106 0.78Ankle (DP): 97 0.71LEFT: PSV (mmHg) ABIBrachial: 135 Ankle (PT): 124 0.91Ankle (DP): 116 0.856OM1RAD_PS01[facility] [id number] 07:21:00 Test Item Value Reference Range Interpretation Comments POTASSIUM (BEAKER) (test code = 2.9 meq/L 3.5-5.1 L 379) [id number] 07:21:00 Test Item Value Reference Range Interpretation Comments MAGNESIUM (BEAKER) (test code = 1.5 mg/dL 1.6-2.6 L 627) [id number] 06:36:00 Test Item Value Reference Range Interpretation Comments POTASSIUM (BEAKER) (test code = 3.5 meq/L 3.5-5.1 379) [id number] 06:36:00 Test Item Value Reference Range Interpretation Comments MAGNESIUM (BEAKER) (test code = 1.5 mg/dL 1.6-2.6 L 627) BASIC METABOLIC [id number] 10:13:00 Test Item Value Reference Range Interpretation [...] 1092) DATA TO CALCULA TE ESTIMATED GFR. [id number] 10:08:00 Test Item Value Reference Range Interpretation Comments MAGNESIUM (BEAKER) (test code = 1.4 mg/dL 1.6-2.6 L 627) [id number] 04:41:00 Test Item Value Reference Range Interpretation Comments MAGNESIUM (BEAKER) (test code = 1.4 mg/dL 1.6-2.6 L 627) BASIC METABOLIC [id number] 04:41:00 Test Item Value Reference Range Interpretation [...] ESTIMATED GFR. CBC W/PLT COUNT & AUTO [id number] 04:23:00 Test Item Value Reference Range Interpretation [...] (BEAKER) (test code = 2801) BASIC METABOLIC [id number] 06:29:00 Test Item Value Reference Range Interpretation Comments SODIUM (BEAKER) (test 137 meq/L 136-145 code = 381) POTASSIUM (BEAKER) 3.2 meq/L 3.5-5.1 L (test code = 379) CHLORIDE (BEAKER) 103 meq/L 98-107 (test code = 382) CO2 (BEAKER) (test 26 meq/L 22-29 code = 355) BLOOD UREA NITROGEN 20 mg/dL 7-21 (AKER) (test code = 354) CREATININE (BEAKER) 0.86 mg/dL 0.57-1.25 (test code = 358) GLUCOSE RANDOM 110 mg/dL 70-105 H ([facility]) (test code = 652) CALCIUM (AKER) 9.6 mg/dL 8.4-10.2 (test code = 697) EGFR ([facility]) (test INSUFFIC IENT CLINICAL code = 1092) DATA TO CALCULA TE ESTIMATED GFR. [id number] 06:26:00 Test Item Value Reference Range Interpretation Comments MAGNESIUM (NORMA) (test code = 1.4 mg/dL 1.6-2.6 L 627) POCT-GLUCOSE [id number] 04:52:00 Test Item Value Reference Range Interpretation Comments POC-GLUCOSE METER 103 mg/dL 70-110 TESTED AT [facility] 6720 ([facility]) (test code = KELSIE [place] [facility] 1538) [address] CT, BRAIN, WITHOUT [id number] 01:41:00Reason for exam:->Fall and hit head on [...] Verified Date/Time: 04/18/2019 01:41:45 CT, CEREBRAL PERFUSION [id number] 13:14:00Reason for exam:- >Assessment for collateral perfusionAnesthesia:->NoneFINAL [...] is tissue at risk. Signed: Natalie Joseph Verified Date/Time: 04/17/2019 13:14:17 CT, CAROTID, [id number] 13:27:00Reason for exam:->cvaFINAL REPORT CLINICAL HISTORY: cvaR [...] the diminutive distal right vertebral artery. Bilateral perishable freight inspector and branches are of normal caliber. The [...] stenoses distally.5.Severe focal stenosis of the left ve rtebral origin. Remainder of the left vertebral artery is of normal caliber. Signed: Natalie Joseph Verified Date/Time: 04/15/2019 13:27:10 [facility] CT[facility] [id number] 13:27:00Reason for exam:->right MCA strokeFINAL REPORT CLINICAL [...] the diminutive distal right vertebral artery. Bilateral perishable freight inspector and branches are of normal caliber. The [...] signed by: Triston ARTIS 04/15/2019 01:27 PMURIC [id number] 06:14:00 Test Item Value Reference Range Interpretation Comments URIC ACID (BEAKER) (test code = 3.8 mg/dL 2.6-7.2 773) BASIC METABOLIC [id number] 06:36:00 Test Item Value Reference Range Interpretation [...] TO CALCULA TE ESTIMATED GFR. BASIC METABOLIC [id number] 06:09:00 Test Item Value Reference Range Interpretation [...] ESTIMATED GFR. CBC W/PLT COUNT & AUTO [id number] 05:36:00 Test Item Value Reference Range Interpretation [...] (BEAKER) (test code = 2801) BASIC METABOLIC [id number] 06:05:00 Test Item Value Reference Range Interpretation [...] TE ESTIMATED GFR. RAD, ABDOMEN/KUB, 1 VIEW [id number] 02:48:00Reason for exam:->Corpak placement 0111 AMFINAL REPORT [...] conceivably may represent vascular calcifications. Signed: Ronald Gaines MDReport Verified Date/Time: 04/12/2019 02:48:37 RAD, ABDOMEN/KUB, 1 VIEW [id number] 00:53:00Reason for exam:->Corpak placement verification. 0005 AMShould [...] limits. Cholecystectomy clips are present. Signed: Ronald Gaines MDReport Verified Date/Time: 04/12/2019 00:53:54 MR, BRAIN, WITHOUT [id number] 00:10:00Reason for exam:->Ischemic Stroke Evaluationwith General AnesthesiaFINAL [...] Date/Time: 04/12/2019 00:10:30 MR, MRA, BRAIN, WITHOUT [id number] 00:10:00Reason for exam:->Ischemic Stroke Evaluationwith general anesthesiaFINAL [...] 04/12/2019 00:10:30 MR, MRA, NECK, WITHOUT IV [id number] 00:10:00Reason for exam:->Ischemic Stroke Evaluationwith general anesthesiaFINAL [...] Ronald Gaines MDReport Verified Date/Time: 04/12/2019 00:10:30 [id number] 13:25:00 Test Item Value Reference Range Interpretation Comments RPR SCREEN (NORMA) (test code = Nonreactive Nonreactive 420) HEMOGLOBIN [id number] 10:35:00 Test Item Value Reference Range Interpretation Comments HEMOGLOBIN A1C (BEAKER) (test code = 5.5 % 4.3-6.1 368) COMPREHENSIVE METABOLIC [id number] 07:01:00 Test Item Value Reference Range Interpretation [...] 1092) DATA TO CALCULA TE ESTIMATED GFR. [id number] 06:29:00 Test Item Value Reference Range Interpretation Comments MAGNESIUM (BEAKER) (test code = 1.6 mg/dL 1.6-2.6 627) FastingLIPID [id number] 06:29:00 Test Item Value Reference Range Interpretation [...] Very High >=190 Fasting TSH/FREE T4 IF [id number] 06:22:00 Test Item Value Reference Range Interpretation Comments THYROID STIMULATING HORMONE 1.35 uIU/mL 0.35-4.94 (BEAKER) (test code = 772) CBC W/PLT COUNT & AUTO [id number] 06:01:00 Test Item Value Reference Range Interpretation [...] code = 2801) URINALYSIS WITH MICROSCOPIC IF [id number] 14:45:00 Test Item Value Reference Range Interpretation [...] (test code = 2795) VITAMIN B12 AND [id number] 14:43:00 Test Item Value Reference Range Interpretation Comments VITAMIN B12 (BEAKER) (test code = 1414 pg/mL 213-816 H 774) FOLATE (BEAKER) (test code = 362) > ng/mL >=7.0 TSH/FREE T4 IF [id number] 14:36:00 Test Item Value Reference Range Interpretation Comments THYROID STIMULATING HORMONE 1.54 uIU/mL 0.35-4.94 (BEAKER) (test code = 772) BASIC METABOLIC [id number] 13:34:00 Test Item Value Reference Range Interpretation [...] 1092) DATA TO CALCULA TE ESTIMATED GFR. [id number] 13:18:00 Test Item Value Reference Range Interpretation Comments MAGNESIUM (BEAKER) (test code = 1.4 mg/dL 1.6-2.6 L 627)
[2022-09-04 17:32] LABS: Absolute Lymphocytes (CBC) 0.9 K/uL (0.7-4.9); Hematocrit 38.8 % (36.0-45.0); MCV 91.7 fL (80-100); RBC Red Blood Cell Count 4.23 M/uL (3.86-4.86)
[2022-09-04 17:33] LABS: Protime INR 0.97
[2022-09-04 17:42] LABS: Potassium 3.6 mmol/L (3.5-5.1); Troponin High Sensitivity 5.8 pg/mL (<58.9)
--- NOTE | 2022-09-04 17:56 | RAD REPORT ---
EXAM DESCRIPTION: CT - Facial Bones W/ Mpr - 09/04/2022 5:40 pm CLINICAL HISTORY: Facial injury with pain COMPARISON: None TECHNIQUE: Computed axial tomography of the face was obtained. Coronal and sagittal reconstruction w as performed. All CT scans are performed using dose optimization technique as appropriate and may include automated exposure control or mA/KV adjustment according to patient size. FINDINGS: A fracture is not seen. A TMJ dislocation is not noted. The globes are intact. Fluid within the sinuses is not seen. IMPRESSION: Negative for a facial fracture.
--- NOTE | 2022-09-04 17:57 | RAD REPORT ---
EXAM DESCRIPTION: CT - Head C Spine Mpr Wo Con - 09/04/2022 5:39 pm CLINICAL HISTORY: Head and neck injury status post fall. Head and neck pain COMPARISON: None. TECHNIQUE: Computed axial tomography of the head and cervical spine was obtained. Sagittal and coronal reconstruction was performed. All CT scans are performed using dose optimization technique as appropriate and may include automated exposure control or mA/KV adjustment according to patient size. FINDINGS: An intracranial bleed is not seen. The ventricles are normal in caliber. 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 An extra-axial fluid collection is not noted. Fluid within the visualized sinuses and mastoids is not seen A cervical fracture is not visualized. No dislocation is noted. Mild anterior subluxation C3 on C4. Mild posterior subluxation C5 on C6. Prevertebral soft tissue swe lling not seen. Presumably this is chronic. Spondylosis most marked at C5-6 resulting in moderate central spinal stenosis IMPRESSION: No acute intracranial abnormality is seen. A cervical fracture is not visualized. If the patient continues to have symptoms to suggest intracranial /spinal cord/ligamentous pathology then MRI would be recommended
--- NOTE | 2022-09-04 17:58 | RAD REPORT ---
EXAM DESCRIPTION: [place] Single View09/04/2022 5:21 pm CLINICAL HISTORY: Chest pain COMPARISON: July 2022 FINDINGS: The lungs appear clear of acute infiltrate. The heart is normal size IMPRESSION: No acute abnormalities displayed
--- NOTE | 2022-09-04 18:22 | EDPHYS ---
Physician Documentation [facility] Name: Marla Campos Age: 76 yrs Sex: Female : 1945 Arrival Date: 09/04/2022 Time: 16:34 Bed 15 Private MD: Garth Hopkins V ED Physician Kris Noguera HPI: 09/04 16:42 This 76 yrs old Female presents to ER via Wheelchair with complaints of Fall Injury, jh7 Head Injury-Adult, Facial Injury, Lip Injury. 16:42 Details of fall: The patient fell from an upright position, while walking. Onset: The [facility] symptoms/episode began/occurred acutely. Associated injuries: The patient sustained injury to the head, contusion, face, contusion. 76-year-old female reports that she was walking down the [place], suddenly became dizzy, and fell. Denies LOC. Complains of facial pain. She is a patient of Dr. Hopkins. Reports that she is not on blood thinners.. Historical: - Allergies: 16:42 Biaxin; aa5 16:42 Breo Ellipta; aa5 16:42 CITRIC ACID; aa5 16:42 Clotrimazole-Betamethasone; aa5 16:42 Demerol; aa5 16:42 Doxycycline; aa5 16:42 Florinef Acetate; aa5 16:42 GABAPENTIN; aa5 16:42 Iodinated Contrast Media - IV Dye; aa5 16:42 Lyrica; aa5 16:42 PENICILLINS; aa5 16:42 Periostat; aa5 16:42 Prevacid; aa5 16:42 QUINOLONES; aa5 16:42 relafen; aa5 16:42 Sulfa (Sulfonamide Antibiotics); aa5 16:42 Vioxx; aa5 - PMHx: 16:42 Asthma; fluid retention; GERD; Hypercholesterolemia; Hypertensive disorder; CVA; Left aa5 sided weakness-mild (previous CVA); - PSHx: 16:42 Carotid endarterectomy; Coronary Angioplasty; hear stents; right leg stent; aa5 - Immunization history:: Adult Immunizations unknown. - Social history:: Smoking status: Patient denies any tobacco usage or history of. - Immunization history: Last tetanus immunization: unknown. ROS: 16:42 Constitutional: Negative for fever, chills, and weight loss, Eyes: Negative for injury, jh7 pain, redness, and discharge, ENT: Negative for injury, pain, and discharge, Neck: Negative for injury, pain, and swelling, Cardiovascular: Negative for chest pain, palpitations, and edema, Respiratory: Negative for shortness of breath, cough, wheezing, and pleuritic chest pain, Back: Negative for injury and pain, MS/Extremity: Negative for injury and deformity. 16:42 Skin: Positive for ecchymosis. 16:42 Neuro: Positive for dizziness, headache, near syncope, Negative for altered mental status, gait disturbance, loss of consciousness, numbness, tingling, visual changes, weakness. 16:42 All other systems are negative. Exam: 16:42 Constitutional: This is a well developed, well nourished patient who is awake, alert, jh7 and in no acute distress. Eyes: Pupils equal round and reactive to light, extra-ocular motions intact. Lids and lashes normal. Conjunctiva and sclera are non-icteric and not injected. Cornea within normal limits. Periorbital areas with no swelling, redness, or edema. ENT: Nares patent. No nasal discharge, no septal abnormalities noted. Tympanic membranes are normal and external auditory canals are clear. Oropharynx with no redness, swelling, or masses, exudates, or evidence of obstruction, uvula midline. Mucous membranes moist. Neck: Trachea midline, no thyromegaly or masses palpated, and no cervical lymphadenopathy. Supple, full range of motion without nuchal rigidity, or vertebral point tenderness. No Meningismus. Cardiovascular: Regular rate and rhythm with a normal S1 and S2. No gallops, murmurs, or rubs. Normal PMI, no JVD. No pulse deficits. Respiratory: Lungs have equal breath sounds bilaterally, clear to auscultation and percussion. No rales, rhonchi or wheezes noted. No increased work of breathing, no retractions or nasal flaring. Abdomen/GI: Soft, non-tender, with normal bowel sounds. No distension or tympany. No guarding or rebound. No evidence of tenderness throughout. Back: No spinal tenderness. No costovertebral tenderness. Full range of motion. Skin: Warm, dry with normal turgor. Normal color with no rashes, no lesions, and no evidence of cellulitis. MS/ Extremity: Pulses equal, no cyanosis. Neurovascular intact. Full, normal range of motion. Neuro: Awake and alert, GCS 15, oriented to person, place, time, and situation. Cranial nerves II-XII grossly intact. Motor strength 5/5 in all extremities. Sensory grossly intact. Cerebellar exam normal. Normal gait. 16:42 Head/face: Exam is negative for padilla signs, raccoon eyes, Noted is contusion, of the forehead, nose and mouth. Vital Signs: 16:40 BP 171 / 72; Pulse 90; Resp 16 S; Temp 97.1(TE); Pulse Ox 96% on R/A; aa5 18:00 BP 173 / 68; Pulse 68; Resp 14 S; Pulse Ox 98% on R/A; kc6 NIH Stroke Scale Scores: 16:42 NIHSS Score: 0 [facility] [place] Coma Score: 17:01 Eye Response: spontaneous(4). Verbal Response: oriented(5). Motor Response: obeys kc6 commands(6). Total: 15. Trauma Score (Adult): 16:42 Eye Response: spontaneous(1); Verbal Response: oriented(1); Motor Response: obeys jh7 commands(2); Systolic BP: > 89 mm Hg(4); Respiratory Rate: 10 to 29 per min(4); Mehdi Score: 15; Trauma Score: 12 17:01 Eye Response: spontaneous(1); Verbal Response: oriented(1); Motor Response: obeys kc6 commands(2); Systolic BP: > 89 mm Hg(4); Respiratory Rate: 10 to 29 per min(4); Mehdi Score: 15; Trauma Score: 12 MDM: 16:41 Patient medically screened. [facility] 18:00 Differential diagnosis: closed head injury, contusion, Intracranial bleed. Data [facility] reviewed: vital signs, nurses notes, lab test result(s), EKG, radiologic studies, CT scan, plain films. Independent interpretation of the following test(s) in the Emergency Department EKG: See my EKG interpretation above X-Ray: My interpretation is No acute findings. Historians other than the Patient: Spouse/Significant Other: . Care significantly affected by the following chronic conditions: Hypertension. Counseling: I had a detailed discussion with the patient and/or guardian regarding: the historical points, exam findings, and any diagnostic results supporting the discharge/admit diagnosis, to return to the emergency department if symptoms worsen or persist or if there are any questions or concerns that arise at home. ED course: Reviewed negative labs and imaging with the patient. She remained hemodynamically stable throughout her ER visit. She stated that she felt much better at discharge and would return to the ER with any new concerning symptoms.. 09/04 16:49 Order name: Basic Metabolic Panel [facility] 09/04 16:49 Order name: CBC with Diff [facility] 09/04 16:49 Order name: PT-INR [facility] 09/04 16:49 Order name: Troponin HS [facility] 09/04 17:34 Order name: Protime (+INR); Complete Time: 17:38 EDMS 09/04 17:43 Order name: Basic Metabolic Panel; Complete Time: 17:53 EDMS 09/04 16:49 Order name: CT Head C Spine [facility] 09/04 16:49 Order name: CT Facial Bones W/O Con [facility] 09/04 17:13 Order name: XRAY Chest (1 view) [facility] 09/04 17:43 Order name: Troponin High Sensitivity; Complete Time: 17:53 EDMS 09/04 17:46 Order name: CBC with Automated Diff; Complete Time: 17:53 EDMS 09/04 17:57 Order name: CT; Complete Time: 18:13 EDMS 09/04 17:58 Order name: CT; Complete Time: 18:13 EDMS 09/04 16:49 Order name: EKG; Complete Time: 16:50 [facility] 09/04 16:49 Order name: Cardiac monitoring; Complete Time: 17:06 [facility] 09/04 16:49 Order name: EKG - Nurse/Tech; Complete Time: 17:06 [facility] 09/04 16:49 Order name: IV Saline Lock; Complete Time: 17:19 [facility] 09/04 16:49 Order name: Labs collected and sent; Complete Time: 17:19 [facility] 09/04 16:49 Order name: O2 Per Protocol; Complete Time: 17:06 [facility] 09/04 16:49 Order name: O2 Sat Monitoring; Complete Time: 17:06 [facility] 09/04 17:58 Order name: RAD; Complete Time: 18:13 EDMS EC:09 Rate is 73 beats/min. Rhythm is regular. QRS [place] is Normal. CT interval is normal at [facility] 136 msec. QRS interval is normal at 84 msec. QT interval is normal at 396 msec. No Q waves. T waves are Normal. No ST changes noted. Clinical impression: Normal ECG. Administered Medications: No medications were administered Disposition Summary: 09/04/22 18:22 Discharge Ordered Location: Home [facility] Problem: new [facility] Symptoms: have improved [facility] Condition: Stable [facility] Diagnosis - Contusion of lip [facility] - Contusion of other part of head [facility] Followup: [facility] - With: Garth Hopkins MD - When: 2 - 3 days - Reason: Recheck today's complaints Discharge Instructions: - Discharge Summary Sheet [facility] - Facial or Scalp Contusion [facility] - Fall Prevention in the Home, Adult [facility] - Understanding Your Risk for Falls [facility] Forms: - Medication Reconciliation Form [facility] - Thank You Letter [facility] NIH Stroke Scale - NIH Stroke Score Date: 09/04/2022 Time: 16:42 Total Score = 0 1a. Level of Consciousness (LOC) - 0(Alert) 1b. Level of Consciousness (LOC) (Month \T\ Age) - 0(Both) 1c. LOC Commands (Open \T\ Closes Eyes/[employer] R[employer]) - 0(Both) 2. Best Gaze (Lateral Gaze Paresis) - 0(Normal) 3. Visual Field Loss - 0(No visual loss) 4. Facial Palsy - 0(Normal) 5a. Left Arm: Motor (10-second hold) - 0(No drift) 5b. Right Arm: Motor (10-second hold) - 0(No drift) 6a. Left Leg: Motor (5-second hold - always test supine) - 0(No drift) 6b. Right Leg: Motor (5-second hold - always test supine) - 0(No drift) 7. Limb Ataxia (finger/nose \T\ heel/al - test with eyes open) - 0(Absent) 8. Sensory Loss (pinprick arms/legs/face) - 0(Normal) 9. Best Language: Aphasia (description/naming/reading) - 0(No aphasia) 10. Dysarthria (speech clarity - read or repeat words) - 0(Normal) 11. Extinction and Inattention (visual/tactile/auditory/spatial/personal) - 0(No abnormality) Initials: [facility] Signatures: Dispatcher [employer] EDJocelynn Salazarri, RN RN aa5 Brenda Platt, POSTER POSTER jh7 Bailey Olsen, RN RN kc6
--- NOTE | 2022-09-04 18:22 | ER ---
Nurse's Notes [facility] Name: Marla Campos Age: 76 yrs Sex: Female : 1945 Arrival Date: 09/04/2022 Time: 16:34 Bed 15 Private MD: Garth Hopkins V Diagnosis: Contusion of lip;Contusion of other part of head Presentation: 09/04 16:40 Chief complaint: Patient states: "I was in the shower and I fell". Pt reports hitting aa5 face, right hand, and right knee. Denies LOC. Pt takes Plavix. Coronavirus screen: At this time, the client does not indicate any symptoms associated with coronavirus-19. Ebola Screen: Patient denies travel to an Ebola-affected area in the 21 days before illness onset. Initial Sepsis Screen: Does the patient meet any 2 criteria? No. Patient's initial sepsis screen is negative. Does the patient have a suspected source of infection? No. Patient's initial sepsis screen is negative. Risk Assessment: Do you want to hurt yourself or someone else? Patient reports no desire to harm self or others. Onset of symptoms was August 2022. 16:40 Acuity: DANNY 2 aa5 16:40 Method Of Arrival: Wheelchair aa5 17:01 Care prior to arrival: None. Mechanism of Injury: Fall from standing position. an kc6 unknown distance. Trauma event details: Injury occurred in the [facility]. Trauma Activation: Alert Physician: ED Physician; Name: ; Notified At: ; Arrived At: Physician: General Surgeon; Name: ; Notified At: ; Arrived At: Physician: Radiology; Name: ; Notified At: ; Arrived At: Physician: Respiratory; Name: ; Notified At: ; Arrived At: Physician: Lab; Name: ; Notified At: ; Arrived At: Historical: - Allergies: 16:42 Biaxin; aa5 16:42 Breo Ellipta; aa5 16:42 CITRIC ACID; aa5 16:42 Clotrimazole-Betamethasone; aa5 16:42 Demerol; aa5 16:42 Doxycycline; aa5 16:42 Florinef Acetate; aa5 16:42 GABAPENTIN; aa5 16:42 Iodinated Contrast Media - IV Dye; aa5 16:42 Lyrica; aa5 16:42 PENICILLINS; aa5 16:42 Periostat; aa5 16:42 Prevacid; aa5 16:42 QUINOLONES; aa5 16:42 relafen; aa5 16:42 Sulfa (Sulfonamide Antibiotics); aa5 16:42 Vioxx; aa5 - PMHx: 16:42 Asthma; fluid retention; GERD; Hypercholesterolemia; Hypertensive disorder; CVA; Left aa5 sided weakness-mild (previous CVA); - PSHx: 16:42 Carotid endarterectomy; Coronary Angioplasty; hear stents; right leg stent; aa5 - Immunization history:: Adult Immunizations unknown. - Social history:: Smoking status: Patient denies any tobacco usage or history of. - Immunization history: Last tetanus immunization: unknown. Screenin:01 Abuse screen: Denies threats or abuse. Denies injuries from another. Tuberculosis kc6 screening: No symptoms or risk factors identified. 17:01 [facility] ED Fall Risk Assessment (Adult) History of falling in the last 3 months, kc6 including since admission Yes- single mechanical fall (1 pt) Confusion or Disorientation No (0 pts) Intoxicated or Sedated No (0 pts) Impaired Gait No (0 pts) Mobility Assist Device Used No (0 pt) Altered Elimination No (0 pt) Score/Fall Risk Level 0 - 2 = Low Risk Oriented to surroundings, Maintained a safe environment, Educated pt \\T\\ family on fall prevention, incl call for assistance when getting out of bed, Assessed \\T\\ reinforced patient's understanding of fall precautions, Hourly rounding (assess needs \\T\\ fall precautionary measures) done. Nutritional screening: No deficits noted. Primary Survey: 17:01 NO uncontrolled hemorrhage observed. A: The client is awake and alert. The airway is kc6 patent. Breathing/Chest: Spontaneous respiratory effort, equal unlabored respirations, breath sounds clear bilaterally, regular pattern, symmetrical chest rise and fall. Circulation: No external hemorrhage present. Regular and strong central pulse, skin warm/dry/normal color. Disability Pupils are equal, round, reactive to light and accommodation. Exposure/Environment: There is no evidence of uncontrolled external bleeding. No obvious injuries are noted at this time. A warming method has been applied: A warm blanket has been provided to the patient. 18:01 Reassessment Alertness and Airway: Awake and alert. The airway is patent. Breathing: kc6 Spontaneous respiratory effort, equal unlabored respirations, breath sounds clear bilaterally, regular pattern with symmetrical chest rise and fall. Circulation: No external hemorrhage noted. Regular and strong central pulse, skin warm/dry/normal color. Disability: Pupils Pupils are equal, round, reactive to light and accomodation. Assessment: 17:01 General: Appears in no apparent distress. comfortable, Behavior is calm, cooperative, kc6 appropriate for age. Pain: Complains of pain in face Pain does not radiate. Pain currently is 5 out of 10 on a pain scale. Quality of pain is described as aching, Pain began suddenly, Is continuous, Alleviated by nothing. Also complains of no other associated symptoms. 18:01 Reassessment: Patient appears in no apparent distress at this time. No changes from kc6 previously documented assessment. Patient and/or family updated on plan of care and expected duration. Pain level reassessed. Patient is alert, oriented x 3, equal unlabored respirations, skin warm/dry/pink. Vital Signs: 16:40 BP 171 / 72; Pulse 90; Resp 16 S; Temp 97.1(TE); Pulse Ox 96% on R/A; aa5 18:00 BP 173 / 68; Pulse 68; Resp 14 S; Pulse Ox 98% on R/A; kc6 Mehdi Coma Score: 17:01 Eye Response: spontaneous(4). Verbal Response: oriented(5). Motor Response: obeys kc6 commands(6). Total: 15. Trauma Score (Adult): 16:42 Eye Response: spontaneous(1); Verbal Response: oriented(1); Motor Response: obeys jh7 commands(2); Systolic BP: > 89 mm Hg(4); Respiratory Rate: 10 to 29 per min(4); Mehdi Score: 15; Trauma Score: 12 17:01 Eye Response: spontaneous(1); Verbal Response: oriented(1); Motor Response: obeys kc6 commands(2); Systolic BP: > 89 mm Hg(4); Respiratory Rate: 10 to 29 per min(4); [place] Score: 15; Trauma Score: 12 NIH Stroke Scale Scores: 16:42 NIHSS Score: 0 7 ED Course: 16:34 Patient arrived in ED. am2 16:34 Garth Hopkins MD is Private Physician. am2 16:40 Arm band placed on. aa5 16:41 Brenda Platt FNP is [facility]. 7 16:41 Kris Noguera MD is Attending Physician. 7 16:42 Triage completed. aa5 17:01 Bailey Olsen, RN is Primary Nurse. kc6 17:01 Patient has correct armband on for positive identification. Bed in low position. Call kc6 light in reach. Side rails up X2. Adult w/ patient. 17:01 Patient maintains SpO2 saturation greater than 95% on room air. kc6 17:01 Thermoregulation: warm blanket given to patient. kc6 17:19 Inserted saline lock: 20 gauge in right antecubital area, using aseptic technique. kc6 Blood collected. 18:21 Garth Hopkins MD is Referral Physician. [facility] 18:35 No provider procedures requiring assistance completed. IV discontinued, intact, kc6 bleeding controlled, No redness/swelling at site. Pressure dressing applied. Administered Medications: No medications were administered Medication: 18:36 VIS not applicable for this client. [facility] Outcome: 18:22 Discharge ordered by . [facility] 18:35 Discharged to home via wheelchair, with significant other. kc6 18:35 Condition: stable 18:35 Discharge instructions given to patient, family, Instructed on discharge instructions, follow up and referral plans. Demonstrated understanding of instructions, follow-up care. 18:36 Patient's length of stay was not longer than 2 hours. 6 18:36 Patient left the ED. kc6 NIH Stroke Scale - NIH Stroke Score Date: 09/04/2022 Time: 16:42 Total Score = 0 1a. Level of Consciousness (LOC) - 0(Alert) 1b. Level of Consciousness (LOC) (Month \\T\\ Age) - 0(Both) 1c. LOC Commands (Open \\T\\ Closes Eyes/Replenishment Buyer) - 0(Both) 2. Best Gaze (Lateral Gaze Paresis) - 0(Normal) 3. Visual Field Loss - 0(No visual loss) 4. Facial Palsy - 0(Normal) 5a. Left Arm: Motor (10-second hold) - 0(No drift) 5b. Right Arm: Motor (10-second hold) - 0(No drift) 6a. Left Leg: Motor (5-second hold - always test supine) - 0(No drift) 6b. Right Leg: Motor (5-second hold - always test supine) - 0(No drift) 7. Limb Ataxia (finger/nose \\T\\ heel/al - test with eyes open) - 0(Absent) 8. Sensory Loss (pinprick arms/legs/face) - 0(Normal) 9. Best Language: Aphasia (description/naming/reading) - 0(No aphasia) 10. Dysarthria (speech clarity - read or repeat words) - 0(Normal) 11. Extinction and Inattention (visual/tactile/auditory/spatial/personal) - 0(No abnormality) Initials: 7 Signatures: Beth Rick, RN RN aa5 Cami Bunch am2 Brenda Platt, FOIL OPERATOR FOIL OPERATOR jh7 Bailey Olsen, RN RN kc6
[2022-09-04 18:40] VITALS: TEMP 97.1
[2022-09-04 18:41] VITALS: BP 173/68; O2SAT 98
--- NOTE | 2022-09-05 12:36 | EKG ---
Test Date: 2022-09-04 Test Time: 17:09:32 Filling Hauler Weaving: ANAMARIA MEASUREMENT RESULTS: Intervals: Rate: 73 AL: 136 QRSD: 84 QT: 396 QTc: 436 [place]: P: 60 AL: 136 QRS: 6 T: 50 INTERPRETIVE STATEMENTS: Normal sinus rhythm Normal ECG Compared to ECG 07/24/2022 20:50:18 No significant changes Electronically Signed On 09-05-22 12:35:21 SUBSTATION OPERATOR APPRENTICE by Devon Moses
== END 2022-09-04 18:36 | disposition home or self-care (01) ==
LOC: ER 16:32
DX: S00.531A Contusion of lip, initial encounter (principal); S00.83XA Contusion of other part of head, initial encounter; I10 Essential (primary) hypertension; Z95.818 Presence of other cardiac implants and grafts; Z88.0 Allergy status to penicillin; Z88.1 Allergy status to other antibiotic agents; Z88.2 Allergy status to sulfonamides; Z88.5 Allergy status to narcotic agent; Z88.8 Allergy status to other drugs, medicaments and biological substances; Z91.041 Radiographic dye allergy status
CPT/HCPCS: 36415; 70450; 70486; 71045; 72125; 76377; 80048; 84484; 85025; 85610; 93005; 99284

== ENCOUNTER 2022-11-21 12:04 | Emergency (ER) | payer OTHER ==
--- OUTSIDE RECORDS SUMMARY | 2022-11-21 12:15 | XMS REPORT | Continuity of Care Document ---
:1945 Author Organization [facility] t Address [address] [facility] [address] [place] [address] Care Team Providers Name Role Phone Garth Hopkins MD Primary Care Physician Merritt Deras Attending Clinician Hallie Charles Attending Clinician Unavailable Robret Gold Attending Clinician Unavailable Rj Evans Attending Clinician Unavailable Devon Moses Attending Clinician Unavailable Arun Bishop Attending Clinician Unavailable Garth Hopkins MD Attending Clinician Michael Osorio MD Attending Clinician CRISTIAN BONILLA MADHURA Attending Clinician Unavailable AMBROCIO FERREIRA Attending Clinician Unavailable Hallei Charles Admitting Clinician Unavailable Robert Gold Admitting Clinician Unavailable Rj Evans Admitting Clinician Unavailable Garth Hopkins V Admitting Clinician Unavailable Devon Moses Admitting Clinician Unavailable Arun Bishop Admitting Clinician Unavailable Physician, No Primary or Family Admitting Clinician Unavaila CRISTIAN Ramírez MADHURA Admitting Clinician Unavailable RAJAN BOOKER Admitting Clinician Unavailable Payers Payer Name Policy Type Policy Number Effective Date Expiration Date Yudi VALENTINO AEMARIA ELENA [id number] Problems Condition Condition Condition Status Onset Resolution Last Treating Co mments Source Name Details Category Date Date Treatment Clinician Date 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:30:01 l hemorrhage hemorrhage He rmann (disorder) (disorder) Active Problem 08/28/2022 [facility] 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 12:30:01 l (disorder) infarction He rmann (disorder) Active Problem 08/28/2022 [facility] Amnesia Amnesia Problem Active 2022-08-28 Me moria (finding) (finding) 12:30:01 l Active [place] Problem 08/28/2022 [facility] Allergies, Adverse Reactions, Alerts Allergy Allergy Status Severity Reaction(s) Onset Inactive Treating Comm ents Source Name Type Date Date Clinician rofecoxi DA Active MO EYE AND BODY HC A b SWELLING 07-21 [place] 00:00: d 00 [facility] pregabal DA Active MO WATERY EYES 2022-0 [facility] in 05 [place] 00:00: d [facility] fluticas DA Active MO HARD TO 2022- [facility] one BREATH 05 [place] furoate 00:00: d [facility] vilanter DA Active MO HARD TO [facility] ol BREATH 07-21 [place] 00:00: d [facility] Iodinate DA Active U UNKNOWN [facility] d 07-21 [place] Contrast 00:00: d Media 00 [facility] Penicill DA Active SV INJECTION [facility] ins SITE 07-21 [place] SWELLING 00:00: d [facility] Sulfa DA Active MO RASH, EYE [facility] (Sulfona SWELLING 07-21 [place] mide 00:00: d Antibiot 00 Medical [facility]) [place] Quinolon DA Active MO RASH, FACIAL HC A es SWELLING 07-21 [place] 00:00: d [facility] Denali FA Active SV VOMITING 2022-0 [facility] And 05 [place] Derivati 00:00: d ves 00 [facility] doxycycl DA Active MT ABDOMINAL 2022-0 [facility] ine PAIN 07-21 [place] 00:00: d [facility] sulfapyr DA Active MO EYE LID [facility] idine SWELLING 07-21 [place] 00:00: d [facility] clotrima DA Active MO UTI, RASH 2022-0 [facility] zole 05 [place] 00:00: d [facility] clarithr DA Active MT RASH, SORE 0 [facility] omycin TONGUE 07-21 [place] 00:00: d [facility] nabumeto DA Active MT ABDOMINAL 2022-0 [facility] ne PAIN 05 [place] 00:00: d [facility] gabapent DA Active MO DIZZINESS,NA 2022-0 HC A in USEA,CONSTIP -05 Main mason ATION 00:00: d [facility] lansopra DA Active SV NAUSEA, 2022-0 [facility] zole CHILLS 05 [place] 00:00: d 00 [facility] meperidi DA Active SV VOMITING 2022- [facility] ne - [place] 00:00: d [facility] fludroco DA Active SV SEVERE RASH, 2022- HC A rtisone SWELLING OF -05 [facility] mason EYES 00:00: d [facility] Iodinate DA Active U UNKNOWN 2021- [facility] d 08-02 Clear Contrast 00:00: Wing Media 00 [facility] Sulfa DA Active MO RASH, EYE [facility] (Sulfona SWELLING 08-02 Clear mide 00:00: Wing Antibiot [address] [facility] Denali FA Active SV VOMITING [facility] And 08-02 Clear Derivati 00:00: Wing ves [facility] doxycycl DA Active MT ABDOMINAL [facility] ine PAIN 08-02 Clear 00:00: Wing [facility] clotrima DA Active MO UTI, RASH [facility] zole 08-02 Clear 00:00: Wing [facility] clarithr DA Active MT RASH, SORE [facility] omycin TONGUE 08-02 Clear 00:00: Wing [facility] nabumeto DA Active MT ABDOMINAL [facility] ne PAIN 08-02 Clear 00:00: Wing [facility] meperidi DA Active SV VOMITING [facility] ne 08-02 Clear 00:00: Wing [facility] fludroco DA Active SV SEVERE RASH, 2021- HC A rtisone SWELLING OF - Lilian r EYES 00:00: Wing [facility] pregabal DA Active MO WATERY EYES [facility] in 08-02 Clear 00:00: Wing [facility] gabapent DA Active MO DIZZINESS,NA 2021- HC A in USEA,CONSTIP 08-02 Lilian r ATION 00:00: Wing [facility] lansopra DA Active SV NAUSEA, [facility] zole CHILLS 08-02 Clear 00:00: Wing [facility] Penicill DA Active SV INJECTION 2020-07 [facility] ins SITE 0-22 Clear SWELLING 00:00: Wing [facility] Quinolon DA Active MO RASH, FACIAL 2020-07 HC A es SWELLING 0-22 Clear 00:00: Wing [facility] [place]ali FA Active MO VOMITING 2020-07 [facility] And 0-22 Clear Derivati 00:00: Wing [facility] iodine DA Active U UNKNOWN 2020-07 [facility] 0-22 Clear 00:00: Wing [facility] doxycycl DA Active MT ABDOMINAL 2020-07 [facility] ine PAIN 0-22 Clear 00:00: Wing [facility] sulfapyr DA Active MO EYE LID 2020-07 [facility] idine SWELLING 0-22 Clear 00:00: Wing [facility] clotrima DA Active MO UTI, RASH 2020-07 [facility] zole 0-22 Clear 00:00: Wing [facility] clarithr DA Active MO RASH, SORE 2020-07 [facility] omycin TONGUE 0-22 Clear 00:00: Wing [facility] meperidi DA Active MT VOMITING 2020-07 [facility] ne 0-22 Clear 00:00: Wing [facility] fludroco DA Active MO SEVERE RASH, 2020-07 HC A rtisone SWELLING OF 0-22 Lilian r EYES 00:00: Wing [facility] rofecoxi DA Active MO EYE AND BODY 2020-07 HC A b SWELLING 0-22 Clear 00:00: Wing [facility] pregabal DA Active MT WATERY EYES 2020-07 [facility] in 0-22 Clear 00:00: Wing [facility] fluticas DA Active MO HARD TO 2020-07 [facility] one BREATH 0-22 Clear furoate 00:00: Wing [facility] vilanter DA Active MO HARD TO 2020-07 [facility] ol BREATH 0-22 Clear 00:00: Wing [facility] Penicill DA Active SV 2020-07 [facility] ins 0-22 Clear 00:00: Wing [facility] Quinolon DA Active MO 2020-07 [facility] es 0-22 Clear 00:00: Wing [facility] [place]ali FA Active MO 2020-07 [facility] And 0-22 Clear Derivati 00:00: Wing [facility] iodine DA Active U 2020-07 [facility] 0-22 Clear 00:00: Wing [facility] doxycycl DA Active MT 2020-07 [facility] ine 0-22 Clear 00:00: Wing [facility] sulfapyr DA Active MO 2020-07 [facility] idine 0-22 Clear 00:00: Wing 00 [facility] clotrima DA Active MO 2020-07 [facility] zole 0-22 Clear 00:00: Wing 00 [facility] clarithr DA Active MO 2020-07 [facility] omycin 0-22 Clear 00:00: Wing 00 [facility] meperidi DA Active MT 2020-07 [facility] ne 0-22 Clear 00:00: Wing [facility] fludroco DA Active MO 2020-07 [facility] rtisone 0-22 Clear 00:00: Wing 00 [facility] rofecoxi DA Active MO 2020-07 [facility] b 0-22 Clear 00:00: Wing [facility] pregabal DA Active MT 2020-07 [facility] in 0-22 Clear 00:00: Wing 00 [facility] fluticas DA Active MO 2020-07 [facility] one 0-22 Clear furoate 00:00: Wing 00 [facility] vilanter DA Active MO 2020-07 [facility] ol 0-22 Clear 00:00: Wing [facility] PREICID DA Active MO ABD PAIN, 2020-07 [facility] LIGHT 0-22 Clear HEADEDNESS, 00:00: Wing NAUSEA 00 [facility] RALAFEN DA Active MT ABDOMINAL 2020-07 [facility] PAIN 0-22 Clear 00:00: Wing [facility] Penicill DA Active SV INJECTION 2020-07 [facility] ins SITE 0-18 Clear SWELLING 00:00: Wing 00 [facility] iodine DA Active U UNKNOWN 2020-07 [facility] 0-18 Clear 00:00: Wing [facility] sulfapyr DA Active MO EYE LID 2020-07 [facility] idine SWELLING 0-18 Clear 00:00: Wing 00 [facility] Penicill DA Active SV 2020-07 [facility] ins 0-18 Clear 00:00: Wing [facility] iodine DA Active U 2020-07 [facility] 0-18 Clear 00:00: Wing 00 [facility] sulfapyr DA Active MO 2020-07 [facility] idine 0-18 Clear 00:00: Wing 00 [facility] Prevacid Propensi Active [facility] ty to 1-30 College adverse 00:00: of reaction 00 Medicin s to e drug Nabumeto Propensi Active [facility] ne ty to 08-15 College adverse 00:00: of reaction 00 Medicin s to e drug Sulfur Propensi Active [facility] ty to 08-15 adverse 00:00: of reaction 00 Medicin s to e drug Citric Propensi Active [facility] Acid ty to 08-15 Monohydr adverse 00:00: of ate reaction 00 Medicin s to e drug Demerol Propensi Active [facility] ty to 08-15 adverse 00:00: of reaction 00 Medicin s to e drug Penicill Propensi Active Mild Arm and [facility] ins ty to 04-10 shoulder College adverse 00:00: bruise of reaction 00 Medicin s to e drug Pregabal Propensi Active Watery [facility] in ty to 04-10 eyes and College adverse 00:00: warm of reaction 00 feeling Medicin s to stomach e drug Quinolon Propensi Active Swelling [facility] or es ty to 04-10 [place] adverse 00:00: of reaction 00 Medicin s to e drug Rofecoxi Propensi Active Swelling [facility] b ty to 04-10 [place] adverse 00:00: of reaction 00 Medicin s to e drug Sulfa Propensi Active Swelling [facility] Antibiot ty to 04-10 [place] ics adverse 00:00: of reaction 00 Medicin s to e drug Bioflavo Propensi Active Nausea And Ba ylor noids ty to Vomiting 04-10 [place] adverse 00:00: of reaction 00 Medicin s to e drug Clarithr Propensi Active Rash [facility] omycin ty to 04-10 College adverse 00:00: of reaction 00 Medicin s to e drug Iodine [facility]ensi Active [facility] ty to 04-10 [facility] Iodide adverse 00:00: Medical Containi reaction 00 Center ng s Products Pregabal Propensi Active Other (See Watery [facility] to Comments) 04-10 eyes and [facility] adverse 00:00: warm Medical reaction 00 feeling Center s stomach Clotrima Propensi Active Rash uti [facility] zole ty to 04-10 College adverse 00:00: of reaction 00 Medicin s to e drug Penicill Propensi Active 2018- [facility] 9[facility]25 shoulder [facility] adverse 00:00: bruise Medical reaction 00 Center s Doxycycl Propensi Active Nausea Only 2018- Abdomina l [facility] ty to 9-25 pain [facility] Hyclate adverse 00:00: Medical reaction 00 Center s Quinolon Propensi Active Swelling, [facility] es ty to Rash [facility]25 [facility] adverse 00:00: Medical reaction 00 Center s Sulfa Drug Active Swelling, 2018- [facility] (Sulfona Allergy Rash 25 [facility] mide 00:00: Medical Antibiot 00 Center ics) Rofecoxi Propensi Active Swelling [facility] b ty to 925 [facility] adverse 00:00: Medical reaction 00 Center s Clarithr Propensi Active Rash [facility] omycin ty to 9-25 [facility] adverse 00:00: Medical reaction 00 Center s Fluticas Propensi Active Shortness Of 2018- [facility] one ty to Breath [facility]25 [facility] Furoate- adverse 00:00: Medical Vilanter reaction 00 Center ol s Denali Propensi Active Nausea And [facility] And ty to Vomiting 25 [facility] Derivati adverse 00:00: Medical ves reaction 00 Center s Clotrima Propensi Active Rash 2018- uti [facility] zole ty to 925 [facility] adverse 00:00: Medical reaction 00 Center s Meperidi Propensi Active Nausea And 2018- [facility] ty to Vomiting 9-25 [facility] adverse 00:00: Medical reaction 00 Center s Doxycycl Propensi Active Swelling And red [facility] ine ty to 9-25 bumps on College adverse 00:00: tongue of reaction 00 Medicin s to e drug Doxycycl Propensi Active Nausea Only, And red [facility] in[facility] ty to Swelling 9-25 bumps on [facility] adverse 00:00: tongue Medical reaction 00 Center s Fludroco Drug Active Swelling, [facility] rtisone Allergy Rash 9-25 [facility] 00:[facility]: Medical 00 Center Gabapent Propensi Active Other (See 2019 Dizzy, [facility] to Comments) 925 nausea, [facility] adverse 00:00: slurred Medical reaction 00 speech, Center s constipat ion Doxycycl Propensi Active Nausea Only 2019-0 Abdomina l [facility] ine ty to 04-10 pain College Hyclate adverse 00:00: of reaction 00 Medicin s to e drug Fludroco Propensi Active Swelling 2019-0 [facility] rtisone ty to 25 College adverse 00:00: of reaction 00 Medicin s to e drug FLUTICAS Allergy Active High Sob 2019-[address] [facility] ONE 25 [facility] FUROATE- 00:00: Medical VILANTER 00 Center OL ROFECOXI Allergy Active Swelling 2018-0 [facility] 04-10 [facility] 00:[facility]: Medical 00 Center CLARITHR Allergy Active Low Rash 2018-[address] [facility] OMYCIN 25 [facility] 00:00: Medical [...] 2019-[address] [facility] one ty to Breath 04-10 [facility] Furoate- adverse 00:00: Medical Vilanter reaction 00 Center ol s Denali Propensi Active Nausea And 2019-[address] [facility] [...] Allergy Active N\\T\\V 2019-[address] [facility] AND 925 [facility] DERIVATI 00:00: Medical VES 00 Center Sulfa Drug Active Swelling, 2019-[address] [facility] (Sulfona Allergy Rash 04-10 [facility] mide 00:00: Medical Antibiot 00 Center ics) MEPERIDI Allergy Active N\\T\\V [facility] NE 9-25 [facility] 00:00: Medical 00 Center DOXYCYCL Allergy Active Nausea [facility] INE 9-25 [facility] 00:00: Medical 00 Center GABAPENT Allergy Active Other [facility] IN [facility]25 [facility] 00:00: Medical 00 Center IODINE Allergy Active [facility] AND 9-25 [facility] IODIDE 00:00: Medical CONTAINI 00 Center NG PRODUCTS PREGABAL Allergy Active Other [facility] IN 9-25 [facility] 00:00: Medical 00 [place] Fluticas Propensi Active Shortness Of [facility] one ty to Breath 04-10 [place] Furoate adverse 00:00: of reaction 00 Medicin s to e drug DOXYCYCL Allergy Active Nausea [facility] INE 9-25 [facility] HYCLATE 00:00: Medical 00 [place] Gabapent Propensi Active Dizzy, [facility] in ty to 04-10 nausea, [place] adverse 00:00: slurred of reaction 00 speech, Medicin s to constipat e drug ion Iodine Propensi Active [facility] ty to 04-10 [place] adverse 00:00: of reaction 00 Medicin s to e drug penicill penicill Active Memori a in in l Andrew Sulfur Sulfur Active Memoria l [facility] iodine iodine Active Memoria l [place] Social History Social Habit Start Date Stop Date Quantity Comments Source History [facility] Alcohol Comment Medical C enter Gender identity [facility] Sexual orientation Method [facility] Hospital History [facility] Alcohol Std Drinks Medica l Center History [facility] Alcohol Binge Medical Ila ter History of tobacco Current smoker [facility] use of Medicine Alcohol intake 2019-04-15 2019-04-[address] [...] Start Date Stop Date Source Tobacco smoking [facility] consumption unknown Tobacco smoking status [facility] Former smoker 2019-08-15 00:00:00 2019-08-15 [facility] ge of 00:00:00 Medicine Medications Ordered Filled Start Stop Current Ordering Indication Dosage Frequency Signature Comments Components Source Medication Medication Date Date Medication? 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, Weight amLODIPine 2022-0 Yes PO, Daily, M emoria 2-09 5 mg l 17:54: daily, 0 [place] 00 Refill(s) amLODIPine 2022-0 Yes PO, Daily, M emoria 2-09 5 mg l 17:54: daily, 0 Andrew 00 Refill(s) Namenda 2021-07 Yes 5 mg = 1 Aman omaira mg oral 1-18 tab, PO, l tablet 18:02: BID, # 60 Manny n 00 tab, 3 Refill(s), Pharmacy: [facility], 162.56, cm, 06/03/22 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, Height, 69.545, kg, 06/03/22 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, Weight Namenda 5 2021-07 Yes 5 mg = 1 Aman omaira mg oral 1-18 tab, PO, l tablet 18:02: BID, # 60 Manny n 00 tab, 3 Refill(s), Pharmacy: [facility], 162.56, cm, 06/03/22 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, Height, 69.545, kg, 06/03/22 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, Weight Namenda 2021-07 Yes 5 mg = 1 Aman omaira mg oral 1-18 tab, PO, l tablet 18:02: BID, # 60 Manny n 00 tab, 3 Refill(s), Pharmacy: [facility], 162.56, cm, 06/03/22 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, Height, 69.545, kg, 06/03/22 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, 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 Namenda 2021-07 Yes 5 mg = 1 Aman omaira mg oral 1-18 tab, PO, l tablet 18:02: BID, # 60 Manny n 00 tab, 3 Refill(s), Pharmacy: [facility], 162.56, cm, 06/03/22 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, Height, 69.545, kg, 06/03/22 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, 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 Namenda 2021-07 Yes 5 mg = 1 Aman omaira mg oral 1-18 tab, PO, l tablet 18:02: BID, # 60 Manny n 00 tab, 3 Refill(s), Pharmacy: [facility], 162.56, cm, 06/03/22 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, Height, 69.545, kg, 06/03/22 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, 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 Namenda 2021-07 Yes 5 mg = 1 Aman omaira mg oral 1-18 tab, PO, l tablet 18:02: BID, # 60 Manny n 00 tab, 3 Refill(s), Pharmacy: [facility], 162.56, cm, 06/03/22 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, Height, 69.545, kg, 06/03/22 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, 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 Namenda 2021-07 Yes 5 mg = 1 Aman omaira mg oral 1-18 tab, PO, l tablet 18:02: BID, # 60 Manny n 00 tab, 3 Refill(s), Pharmacy: [facility], 162.56, cm, 06/03/22 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, Height, 69.545, kg, 06/03/22 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, 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 Namenda 5 2021-07 Yes 5 mg = 1 Aman omaira mg oral 1-18 tab, PO, l tablet 18:02: BID, # 60 Manny n 00 tab, 3 Refill(s), Pharmacy: [facility], 162.56, cm, 06/03/22 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, Height, 69.545, kg, 06/03/22 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, Weight Namenda 5 2021-07 Yes 5 mg = 1 Aman omaira mg oral 1-18 tab, PO, l tablet 18:02: BID, # 60 Manny n 00 tab, 3 Refill(s), Pharmacy: [facility], 162.56, cm, 06/03/22 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, Height, 69.545, kg, 06/03/22 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, Weight famotidine 2021-07 Yes 20 mg = 1 Me moria 20 mg oral 1-18 tab, PO, l tablet 17:49: BID, 0 Andrew 00 Refill(s) Vitamin K2 2021-07 Yes 100 Memoria 1-18 microgram l 17:49: =, PO, [place] 00 Daily, 0 Refill(s) Cosamin DS 2021-07 [...] Memoria oral tablet 1-18 Refill(s) l 17:49: [place] 00 famotidine 2021-07 Yes 20 mg = 1 Me moria 20 mg oral 1-18 tab, PO, l tablet 17:49: BID, 0 Andrew 00 Refill(s) Vitamin K2 2021-07 Yes 100 Memoria 1-18 microgram l 17:49: =, PO, Andrew 00 Daily, 0 Refill(s) Cosamin DS 2021-07 Yes 0 Memoria oral tablet 1-18 Refill(s) l 17:49: [place] famotidine 2021-07 Yes 20 mg = 1 Me moria 20 mg oral 1-18 tab, PO, l tablet 17:49: BID, 0 Andrew 00 Refill(s) Vitamin K2 2021-07 Yes 100 Memoria 1-18 microgram l 17:49: =, PO, [place] 00 Daily, 0 Refill(s) Cosamin DS 2021-07 Yes 0 Memoria oral tablet 1-18 Refill(s) l 17:49: Andrew 00 famotidine 2021-07 Yes 20 mg = 1 Me moria 20 mg oral 1-18 tab, PO, l tablet 17:49: BID, 0 [place] 00 Refill(s) Vitamin K2 2021-07 Yes 100 Memoria 1-18 microgram l 17:49: =, PO, [place] 00 Daily, 0 Refill(s) Cosamin DS 2021-07 Yes 0 Memoria oral tablet 1-18 Refill(s) l 17:49: Andrew 00 famotidine 2021-07 Yes 20 mg = 1 Me moria 20 mg oral 1-18 tab, PO, l tablet 17:49: BID, 0 [place] 00 Refill(s) Vitamin K2 2021-07 Yes 100 Memoria 1-18 microgram l 17:49: =, PO, [place] 00 Daily, 0 Refill(s) Cosamin DS 2021-07 Yes 0 Memoria oral tablet 1-18 Refill(s) l 17:49: [place] 00 famotidine 2021-07 Yes 20 mg = 1 Me moria 20 mg oral 1-18 tab, PO, l tablet 17:49: BID, 0 Andrew 00 Refill(s) Vitamin K2 2021-07 Yes 100 Memoria 1-18 microgram l 17:49: =, PO, [place] 00 Daily, 0 Refill(s) Cosamin DS 2021-07 Yes 0 Memoria oral tablet 1-18 Refill(s) l 17:49: Andrew famotidine 2021-07 Yes 20 mg = 1 Me moria 20 mg oral 1-18 tab, PO, l tablet 17:49: BID, 0 [place] 00 Refill(s) Vitamin K2 2021-07 Yes 100 [...] Memoria oral tablet 1-18 Refill(s) l 17:49: [place] 00 Docusate 2020-07 Yes 100 mg = 1 Mem oria Sodium 100 0-29 cap, PO, l MG Oral 16:18: BID, 0 Andrew Capsule 00 Refill(s) docusate 2020-07 Yes 100 mg = 1 Mem oria sodium 100 0-29 cap, PO, l mg oral 16:18: BID, 0 [place] capsule 00 Refill(s) Docusate 2020-07 Yes 100 mg = 1 Mem oria Sodium 100 0-29 cap, PO, l MG Oral 16:18: BID, 0 [place] Capsule 00 Refill(s) docusate 2020-07 Yes 100 mg = 1 Mem oria sodium 100 0-29 cap, PO, l mg oral 16:18: BID, 0 [place] capsule 00 Refill(s) Docusate 2020-07 Yes 100 mg = 1 Mem oria Sodium 100 0-29 cap, PO, l MG Oral 16:18: BID, 0 [place] Capsule 00 Refill(s) docusate 2020-07 Yes 100 [...] PO, l mg oral 16:18: BID, 0 [place] capsule 00 Refill(s) Docusate 2020-07 Yes 100 mg = 1 Mem oria Sodium 100 0-29 cap, PO, l MG Oral 16:18: BID, 0 [place] Capsule 00 Refill(s) docusate 2020-07 Yes 100 [...] PO, l mg oral 16:18: BID, 0 [place] capsule 00 Refill(s) Docusate 2020-07 Yes 100 mg = 1 Mem oria Sodium 100 0-29 cap, PO, l MG Oral 16:18: BID, 0 [place] Capsule 00 Refill(s) docusate 2020-07 Yes 100 mg = 1 Mem oria sodium 100 0-29 cap, PO, l mg oral 16:18: BID, 0 Andrew capsule 00 Refill(s) Docusate 2020-07 Yes 100 mg = 1 Mem oria Sodium 100 0-29 cap, PO, l MG Oral 16:18: BID, 0 [place] Capsule 00 Refill(s) docusate 2020-07 Yes 100 mg = 1 Mem oria sodium 100 0-29 cap, PO, l mg oral 16:18: BID, 0 Andrew capsule 00 Refill(s) docusate 2020-07 Yes 100 mg = 1 Mem oria sodium 100 0-29 cap, PO, l mg oral 16:18: BID, 0 [place] capsule 00 Refill(s) Docusate 2020-07 Yes 100 mg = 1 Mem oria Sodium 100 0-29 cap, PO, l MG Oral 16:18: BID, 0 Andrew Capsule 00 Refill(s) Magnesium 2020-07 Yes PO, Daily, Me moria glycinate 0-29 0 l 16:17: Refill(s) [place] 00 magnesium 2020-07 Yes PO, Daily, Me moria glycinate 0-29 0 l 16:17: Refill(s) [place] 00 CoQ10 2020-07 Yes 300 mg, Memoria 0-29 [...] Yes 0 Memoria 0-29 Refill(s) l 16:17: magnesium 2020-07 Yes PO, Daily, Me moria glycinate 0-29 0 l 16:17: Refill(s) CoQ10 2020-07 Yes 300 mg, Memoria 0-29 PO, Daily, l 16:17: 0 Refill(s) Vitamin D3 2020-07 Yes 0 Memoria 0-29 Refill(s) l 16:17: [place] 00 Magnesium 2020-07 Yes PO, Daily, Me moria glycinate 0-29 0 l 16:17: Refill(s) Andrew 00 potassium 2020-07 Yes 10 mEq [...] tab, PO, l tablet 16:16: Daily, # [place] 00 30 tab, 0 Refill(s) potassium 2020-07 Yes 10 mEq = 1 Me moria chloride 10 0-29 cap, PO, l mEq oral 16:16: BID, # 180 Her sarmiento capsule, 00 cap, 0 extended Refill(s) release clopidogrel 2020-07 Yes 75 mg = 1 M emoria 75 mg oral 0-29 tab, PO, l tablet 16:16: Daily, # [place] 30 tab, 0 Refill(s) potassium 2020-07 Yes 10 mEq = 1 Me moria chloride 10 0-29 cap, PO, l mEq oral 16:16: BID, # 180 Her sarmiento capsule, 00 cap, 0 extended Refill(s) release clopidogrel 2020-07 Yes 75 mg = 1 M emoria 75 mg oral 0-29 tab, PO, l tablet 16:16: Daily, # [place] 30 tab, 0 Refill(s) potassium 2020-07 Yes 10 mEq = 1 Me moria chloride 10 0-29 cap, PO, l mEq oral 16:16: BID, # 180 Her sarmiento capsule, 00 cap, 0 extended Refill(s) release clopidogrel 2020-07 Yes 75 mg = 1 M emoria 75 mg oral 0-29 tab, PO, l tablet 16:16: Daily, # Andrew 30 tab, 0 Refill(s) potassium 2020-07 Yes 10 mEq = 1 Me moria chloride 10 0-29 cap, PO, l mEq oral 16:16: BID, # 180 Her sarmiento capsule, 00 cap, 0 extended Refill(s) release clopidogrel 2020-07 Yes 75 mg = 1 M emoria 75 mg oral 0-29 tab, PO, l tablet 16:16: Daily, # Andrew 30 tab, 0 Refill(s) clopidogrel 2020-07 Yes 75 mg = 1 M emoria 75 mg oral 0-29 tab, PO, l tablet 16:16: Daily, # Andrew 30 tab, 0 Refill(s) potassium 2020-07 Yes 10 mEq = 1 Me moria chloride 10 0-29 cap, PO, l mEq oral 16:16: BID, # 180 Her sarmiento capsule, 00 cap, 0 extended Refill(s) release pantoprazol Yes 0 Memori a e 40 mg 7-29 Refill(s) l oral 16:06: [place] enteric 00 coated tablet pantoprazol Yes 0 Memori a e 40 mg 7-29 Refill(s) l oral 16:06: Andrew enteric 00 coated tablet pantoprazol Yes 0 Memori a e 40 mg 7-29 Refill(s) l oral 16:06: Andrew enteric 00 coated tablet pantoprazol Yes 0 Memori a e 40 mg 7-29 Refill(s) l oral 16:06: [place] enteric 00 coated tablet pantoprazol Yes 0 Memori a e 40 mg 7-29 Refill(s) l oral 16:06: [place] enteric 00 coated tablet pantoprazol Yes 0 Memori a e 40 mg 7-29 Refill(s) l oral 16:06: Andrew enteric 00 coated tablet pantoprazol Yes 0 Memori a e 40 mg 7-29 Refill(s) l oral 16:06: Andrew enteric 00 coated tablet pantoprazol Yes 0 Memori a e 40 mg 7-29 Refill(s) l oral 16:06: [place] enteric 00 coated tablet pantoprazol Yes 0 Memori a e 40 mg 7-29 Refill(s) l oral 16:06: Andrew enteric 00 coated tablet pantoprazol Yes 0 Memori a e 40 mg 7-29 Refill(s) l oral 16:06: [place] enteric 00 coated tablet Aspirin Yes 81 [...] Aspirin Yes 81 mg, PO, Aman omaira 4- Daily, 0 l 16:45: Refill(s) aspirin Yes 81 mg, PO, Aman omaira 4- Daily, 0 l 16:45: Refill(s) Aspirin Yes 81 mg, PO, Aman omaira 4-01 Daily, 0 l 16:45: Refill(s) aspirin Yes 81 mg, PO, Aman omaira 4-01 Daily, 0 l 16:45: Refill(s) aspirin Yes 81 mg, PO, Aman omaira 4-01 Daily, 0 l 16:45: Refill(s) Aspirin Yes 81 mg, PO, Aman omaira - Daily, 0 l 16:45: Refill(s) Albuterol Yes 2.5 mg = 3 Me moria 0.83 MG/ML 4- mL, NEB, l Inhalant 16:44: Q6H, 0 Refill(s) Promethazin Yes 5 mL, PO, M emoria e DM oral 10-15 Q6H, PRN l syrup 16:44: for cough, Manny n 00 # 120 mL, 0 Refill(s) Ventolin Yes 2 puff, Memori a HFA - INHALATION l 16:44: , QID, 0 [place] 00 Refill(s) albuterol 2020-0 Yes 2.5 mg = 3 Me moria 0.083% 4-01 mL, NEB, l inhalation 16:44: Q6H, 0 Shari nn solution 00 Refill(s) Albuterol 2020-0 Yes 2.5 mg = 3 Me moria 0.83 MG/ML 4-01 mL, NEB, l Inhalant 16:44: Q6H, 0 [place] Solution 00 Refill(s) Promethazin 2020-0 Yes 5 mL, PO, M emoria e DM oral 4-01 Q6H, PRN l syrup 16:44: for cough, Manny n 00 # 120 mL, 0 Refill(s) Ventolin 2020-0 Yes 2 puff, Memori a HFA 4-01 INHALATION l 16:44: , QID, 0 [place] 00 Refill(s) albuterol 2020-0 Yes 2.5 mg [...] 4-01 INHALATION l 16:44: , QID, 0 [place] 00 Refill(s) Albuterol 0 Yes 2.5 mg [...] 4-01 INHALATION l 16:44: , QID, 0 [place] 00 Refill(s) albuterol 2020-0 Yes 2.5 mg [...] 4-01 INHALATION l 16:44: , QID, 0 [place] 00 Refill(s) albuterol 0 Yes 2.5 mg [...] mL, NEB, l Inhalant 16:44: Q6H, 0 [place] Solution 00 Refill(s) Promethazin 2020-0 Yes 5 mL, PO, M emoria e DM oral 4-01 Q6H, PRN l syrup 16:44: for cough, Manny n 00 # 120 mL, 0 Refill(s) Ventolin 2020-0 Yes 2 puff, Memori a HFA 4-01 INHALATION l 16:44: , QID, 0 [place] 00 Refill(s) albuterol 2020-0 Yes 2.5 mg = 3 Me moria 0.083% 4-01 mL, NEB, l inhalation 16:44: Q6H, 0 Shari nn solution 00 Refill(s) Albuterol 0 Yes 2.5 mg = 3 Me moria 0.83 MG/ML 4-01 mL, NEB, l Inhalant 16:44: Q6H, 0 [place] Solution 00 Refill(s) Promethazin 2020-0 Yes 5 mL, PO, M emoria e DM oral 4- Q6H, PRN l syrup 16:44: for cough, Manny n 00 # 120 mL, 0 Refill(s) Ventolin 2020-0 Yes 2 puff, Memori a HFA 4- INHALATION l 16:44: , QID, 0 Andrew [...] 4-01 INHALATION l 16:44: , QID, 0 [place] 00 Refill(s) albuterol 2021-0 Yes 2.5 mg = 3 Me moria 0.083% 4-01 mL, NEB, l inhalation 16:44: Q6H, 0 Shari nn solution 00 Refill(s) Promethazin Yes 5 mL, PO, M emoria e DM oral 4-01 Q6H, PRN l syrup 16:44: for cough, Manny n 00 # 120 mL, 0 Refill(s) Ventolin Yes 2 puff, Memori a HFA 4-01 INHALATION l 16:44: , QID, 0 [place] 00 Refill(s) albuterol Yes 2.5 mg = 3 Me moria 0.083% 4-01 mL, NEB, l inhalation 16:44: Q6H, 0 Shari nn solution 00 Refill(s) Albuterol Yes 2.5 mg = 3 Me moria 0.83 MG/ML 4-01 mL, NEB, l Inhalant 16:44: Q6H, 0 [place] Solution 00 Refill(s) Promethazin Yes 0 Memori a e 4-01 Refill(s) l 16:43: Andrew 00 promethazin 2020-0 Yes 0 Memori a e 4-01 Refill(s) l 16:43: [place] 00 Promethazin 0 Yes 0 Memori a e 4-01 Refill(s) l 16:43: Andrew 00 promethazin 2020-0 Yes 0 Memori a e 4-01 Refill(s) l 16:43: [place] 00 Promethazin 2020-0 Yes 0 Memori a e 4-01 Refill(s) l 16:43: Andrew 00 promethazin 2020-0 Yes 0 Memori a e 4-01 Refill(s) l 16:43: [place] 00 Promethazin 2020-0 Yes 0 Memori a e 4-01 Refill(s) l 16:43: Andrew 00 Promethazin 2020-0 Yes 0 Memori a e 4-01 Refill(s) l 16:43: Andrew 00 promethazin 2020-0 Yes 0 Memori a e 4-01 Refill(s) l 16:43: [place] 00 Promethazin 2020-0 Yes 0 Memori a e 4-01 Refill(s) l 16:43: [place] promethazin 2020-0 Yes 0 Memori a e 4-01 Refill(s) l 16:43: Andrew Promethazin 2020-0 Yes 0 Memori a e 4-01 Refill(s) l 16:43: [place] promethazin 2020-0 Yes 0 Memori a e 4-01 Refill(s) l 16:43: Andrew Promethazin 2020-0 Yes 0 Memori a e 4-01 Refill(s) l 16:43: [place] 00 promethazin 2020-0 Yes 0 Memori a e 4-01 Refill(s) l 16:43: [place] Promethazin 2020-0 Yes 0 Memori a e 4-01 Refill(s) l 16:43: [place] 00 promethazin 2020-0 Yes 0 Memori a e 4-01 Refill(s) l 16:43: Andrew 00 promethazin 2020-0 Yes 0 Memori a e 4-01 Refill(s) l 16:43: Andrew 00 Promethazin 2020-0 Yes 0 Memori a e 4-01 Refill(s) l 16:43: [place] 00 Premarin 2020-0 Yes VAG, 0 Memoria Vaginal 4-01 Refill(s) l 16:42: [place] 00 Premarin 2020-0 Yes VAG, 0 Memoria Vaginal 4-01 Refill(s) l 16:42: [place] Premarin 2020-0 Yes VAG, 0 Memoria Vaginal 4-01 Refill(s) l 16:42: Andrew Premarin 2020-0 Yes VAG, 0 Memoria Vaginal 4-01 Refill(s) l 16:42: Andrew Premarin 2020-0 Yes VAG, 0 Memoria Vaginal 4-01 Refill(s) l 16:42: [place] Premarin 2020-0 Yes VAG, 0 Memoria Vaginal 4-01 Refill(s) l 16:42: [place] Premarin 2020-0 Yes VAG, 0 Memoria Vaginal 4-01 Refill(s) l 16:42: [place] Premarin 2020-0 Yes VAG, 0 Memoria Vaginal [...] n 10-15 Bedtime, 0 l 16:41: Refill(s) Andrew 00 atorvastati Yes 40 mg, PO, Memoria n 10-15 Bedtime, 0 l 16:41: Refill(s) [place] 00 atorvastati Yes 40 mg, PO, Memoria [...] a ine 10-15 Instructio l 16:40: ns, [place] 1-2caps TID, 0 Refill(s) levocetiriz Yes See Memori a ine 10-15 Instructio l 16:40: ns, [place] 00 1-2caps TID, 0 Refill(s) levocetiriz Yes See Memori a ine 10-15 Instructio l 16:40: ns, [place] 00 1-2caps TID, 0 Refill(s) levocetiriz Yes See Memori a ine 10-15 Instructio l 16:40: ns, [place] 00 1-2caps TID, 0 Refill(s) levocetiriz Yes See Memori a ine 10-15 Instructio l 16:40: ns, [place] 00 1-2caps TID, 0 Refill(s) levocetiriz 2021-0 Yes See Memori a ine 4- Instructio l 16:40: ns, [place] 00 1-2caps TID, 0 Refill(s) levocetiriz 2020-0 Yes See Memori a ine 4- Instructio l 16:40: ns, Andrew 00 1-2caps TID, 0 Refill(s) levocetiriz 2020-0 Yes See Memori a ine 4- Instructio l 16:40: ns, [place] 00 1-2caps TID, 0 Refill(s) levocetiriz 2020-0 Yes See Memori a ine 4- Instructio l 16:40: ns, [place] 00 1-2caps TID, 0 Refill(s) levocetiriz 2020-0 Yes See Memori a ine 4- Instructio l 16:40: ns, Andrew 00 1-2caps TID, 0 Refill(s) levocetiriz 2020-0 Yes See Memori a ine - Instructio l 16:40: ns, [place] 00 1-2caps TID, 0 Refill(s) levocetiriz 2020-0 Yes See Memori a ine - Instructio l 16:40: ns, Andrew 00 1-2caps TID, 0 Refill(s) levocetiriz 2020-0 Yes See Memori a ine 4- Instructio l 16:40: ns, Andrew 00 1-2caps TID, 0 Refill(s) levocetiriz 2020-0 Yes See Memori a ine 4- Instructio l 16:40: ns, [place] 00 1-2caps TID, 0 Refill(s) levocetiriz 2020-0 Yes See Memori a ine 4- Instructio l 16:40: ns, Andrew 00 1-2caps TID, 0 Refill(s) levocetiriz 2020-0 Yes See Memori a ine 4- Instructio l 16:40: ns, [place] 00 1-2caps TID, 0 Refill(s) levocetiriz 2020-0 Yes See Memori a ine 4- Instructio l 16:40: ns, [place] 00 1-2caps TID, 0 Refill(s) levocetiriz 2020-0 Yes See Memori a ine - Instructio l 16:40: ns, [place] 00 1-2caps TID, 0 Refill(s) levocetiriz 2020-0 Yes See Memori a ine - Instructio [...] Q-M and l 16:39: Th, # 15 [place] 00 tab, 0 Refill(s) Metolazone 2020-0 Yes 5 mg, PO, Me moria 4-01 Q-M and l 16:39: Th, # 15 [place] 00 tab, 0 Refill(s) Metolazone 2020-0 Yes 5 mg, PO, Me moria 4- Q-M and l 16:39: Th, # 15 Andrew 00 tab, 0 Refill(s) Metolazone 2020-0 Yes 5 mg, PO, Me moria 4-01 Q-M and l 16:39: Th, # 15 Andrew 00 tab, 0 Refill(s) Metolazone 2020-0 Yes 5 mg, PO, Me moria 4-01 Q-M and l 16:39: Th, # 15 [place] 00 tab, 0 Refill(s) Metolazone 2020-0 Yes 5 mg, PO, Me moria 4-01 Q-M and l 16:39: Th, # 15 [place] 00 tab, 0 Refill(s) Metolazone 2020-0 Yes 5 mg, PO, Me moria 4-01 Q-M and l 16:39: Th, # 15 [place] 00 tab, 0 Refill(s) Spironolact 2020-0 Yes 50 mg, PO, Memoria one 4- Daily, # l 16:38: 60 tab, 0 [place] 00 Refill(s) spironolact 2020-0 Yes 50 mg, PO, Memoria one 4- Daily, # l 16:38: 60 tab, 0 [place] 00 Refill(s) Spironolact 2020-0 Yes 50 mg, PO, Memoria one 4 Daily, # l 16:38: 60 tab, 0 Andrew 00 Refill(s) spironolact 2020-0 Yes 50 mg, PO, Memoria one 4 Daily, # l 16:38: 60 tab, 0 Andrew 00 Refill(s) Spironolact 2020-0 Yes 50 mg, PO, Memoria one 4 Daily, # l 16:38: 60 tab, 0 [place] 00 Refill(s) spironolact 2020-0 Yes 50 mg, PO, Memoria one 4 Daily, # l 16:38: 60 tab, 0 [place] 00 Refill(s) Spironolact 2020-0 Yes 50 mg, PO, Memoria one 4- Daily, # l 16:38: 60 tab, 0 Andrew 00 Refill(s) spironolact 2020-0 Yes 50 mg, PO, Memoria one 4- Daily, # l 16:38: 60 tab, 0 Andrew 00 Refill(s) Spironolact 2020-0 Yes 50 mg, PO, Memoria one 4- Daily, # l 16:38: 60 tab, 0 [place] 00 Refill(s) Spironolact 2020-0 Yes 50 mg, PO, Memoria one 4- Daily, # l 16:38: 60 tab, 0 Andrew 00 Refill(s) spironolact 1-0 Yes 50 mg, PO, Memoria one 4- Daily, # l 16:38: 60 tab, 0 [place] 00 Refill(s) Spironolact 1-0 Yes 50 mg, PO, Memoria one 4- Daily, # l 16:38: 60 tab, 0 Andrew 00 Refill(s) spironolact 2021-0 Yes 50 mg, PO, Memoria one 4- Daily, # l 16:38: 60 tab, 0 [place] 00 Refill(s) Spironolact 2020-0 Yes 50 mg, [...] Daily, # l 16:38: 60 tab, 0 [place] 00 Refill(s) glucosamine 2020-0 Yes 3{tbl} Take 3 [facility] -chondroiti 1-30 Tabs by [facility] surinder n 500-400 20:35: mouth. of MG tablet 19 Medicin e Cholecalcif 2020-0 Yes 25mg Take 25 mg [facility] lisset (D3 1-30 by mouth. Raine corado VITAMIN OR) 20:34: of 48 Medicin e Docusate 2020-0 Yes Take by [facility] Sodium 100 1-30 mouth. College MG TABS 20:33: of 54 Medicin e MISC 2020-0 Yes Take by [facility] NATURAL 1-30 mouth. College PRODUCTS OR 20:33: of 54 Medicin e albuterol 2020-0 Yes 2{puff} Inhale 2 [facility] (VENTOLIN 1-30 Puffs by Raine corado HFA) 108 20:31: mouth as of (90 base) 45 needed for Medi kennedy mcg/act Wheezing. e inhaler ALBUTEROL 2020-0 Yes Inhale by [place] SULFATE 1-30 mouth. College INNOSE 20:31: 0.083 NEB of 45 Nephron - Medicin use 1 vial e in nebulizer 4 times a day as needed promethazin 2020-0 Yes 6.25mg Take 6.25 [facility] e 1-30 mg by [place] (PHENERGAN) 20:27: mouth as of 6.25 MG/5ML 52 needed. Medic in syrup e potassium 2020-0 Yes 20meq Take 20 [facility] or chloride 1-30 mEq by [place] (KDUR) 10 20:25: mouth 3 of MEQ tablet 17 times Medicin daily. e Levocetiriz 2020-0 Yes 5mg Take 5 mg [facility] ine 1-30 by mouth. College Dihydrochlo 20:25: of ride 5 MG 17 Medicin TABS e MAGNESIUM 2019-0 Yes 240mg Take 240 [place] [facility] OR 1-30 mg by College 20:25: mouth two of 17 times Medicin daily. e metolazone 2019-0 Yes 5mg Take 5 mg [facility] (ZAROXOLYN) 1-30 by mouth Donte ege 5 MG tablet 20:22: every of 11 Monday and Medicin . e atorvastati 2019-0 Yes 40mg Take 1 Tab [facility] n (LIPITOR) 1-30 by mouth Donte ege 40 MG 00:00: daily. of tablet 00 Medicin e PREMARIN 2018-[address] 0.65 [facility] vaginal 2-24 mg [facility] cream 00:00: vaginally of 00 2 times Medicin weekly. e spironolact 2018-07 Yes TAKE 1 [facility] one 1-25 TABLET BY [place] (ALDACTONE) 00:00: MOUTH of 50 MG 00 EVERY DAY Medicin tablet e atorvastati 2018-07 Yes TAKE 1 [facility] n (LIPITOR) 1-25 TABLET BY Col lege 20 MG 00:00: MOUTH of tablet 00 EVERY DAY Medicin e metOLazone 2018-07 Yes 5mg QD Take [address] [facility] [address] [facility] (ZAROXOLYN) 0-09 by mouth Luke s 5 MG tablet 19:51: daily. Medi [facility] potassium 2018- Yes 10meq Q.[id number] Take [address] [facility] chloride 0-09 [id number] mEq by Shoaib es (KLOR-CON) 19:51: 3D [...] [facility] potassium 2018-07 Yes 10meq Q.[id number] Take [address] [facility] chloride 0-09 [id number] mEq by Shoaib es (KLOR-CON) 19:51: 3D [...] [facility] (ZANTAC) 0-09 mg by Lumurali 150 MG 19:51: mouth as Medical tablet [...] [facility] potassium 2018-07 Yes 10meq Q.[id number] Take [address] [facility] chloride 0-09 [id number] mEq by Shoaib es (KLOR-CON) 19:51: 3D [...] [facility] potassium 2018-07 Yes 10meq Q.[id number] Take [address] [facility] chloride 0-09 [id number] mEq by Shoaib wilkins (KLOR-CON) 19:51: 3D [...] [facility] 48 [facility] potassium 2018-07 Yes 10meq Q.[id number] Take [address] [facility] chloride 0-09 [id number] mEq by Shoaib es (KLOR-CON) 19:51: 3D [...] lin[facility] 48 Center potassium 2018-07 Yes 10meq Q.[id number] Take [address] [facility] chloride 0-09 [id number] mEq by Shoaib es (KLOR-CON) 19:51: 3D mouth 3 Medi ilnnea 10 MEQ CR 48 (three) Center tablet [...] [facility] 48 [facility] potassium 2018-07 Yes 10meq Q.[id number] Take [address] [address] chloride 0-09 [id number] mEq by Shoaib es (KLOR-CON) 19:51: 3D [...] syrup times daily as needed for Nausea. spironolact 2018-07 Yes 100mg QD Take [address] one 0-09 mg by [place] (ALDACTONE) 19:51: mouth Medic al 100 MG 48 daily. Center tablet metOLazone 2018-07 Yes 5mg QD Take [address] [facility] [address] [facility] (ZAROXOLYN) 0-09 by mouth Luke s 5 MG tablet 19:51: daily. Medi [facility] potassium 2018-07 Yes 10meq Q.[id number] Take [address] [facility] [address] chloride 0-09 [id number] mEq by Shoaib es (KLOR-CON) 19:51: 3D [...] [facility] 48 Center potassium 2018-07 Yes 10meq Q.[id number] Take [address] [facility] [address] chloride 0-09 [id number] mEq by Shoaib es (KLOR-CON) 19:51: 3D [...] St -chondroiti 0-09 tablets by Yumiko reads n 500-400 19:51: mouth 2 Medic al [...] lin[facility] 48 Center potassium 2018-07 Yes 10meq Q.[id number] Take [address] chloride 0-09 [id number] mEq by Shoaib es (KLOR-CON) 19:51: 3D [...] al 100 MG 48 daily. Center tablet aspirin EC 2018-07- No 81mg Take 81 mg Chele 81 MG TBEC 0-06 10-06 by mouth. Col lege 00:00: 04:59 of 00 :00 Medicin e Coenzyme 2018-07- No 100mg Take 100 [place] [facility] Q-10 100 MG 0-05 10-05 mg by Colleg e CAPS 00:00: 04:59 mouth of 00 :00 daily. Medicin e Vital Signs Vital Name Observation Time Observation Value Comments Source Systolic blood 2019-08-15 19:54:00 128 mm[Hg] [facility] pressure Medicine Diastolic blood 2019-08-15 19:54:00 57 mm[Hg] [facility] pressure Medicine Heart rate 2019-08-15 19:54:00 67 /min [facility] Body height 2019-08-15 19:54:00 165.1 cm [facility] Body weight 2019-08-15 19:54:00 66.679 kg [facility] BMI 2019-08-15 19:54:00 24.46 kg/m2 [facility] Systolic (mm Hg) 2022-08-25 17:48:00 Aman rial Andrew Diastolic (mm Hg) 2022-08-25 17:48:00 Mem orial [place] Heart Rate 2022-08-25 17:48:00 [facility] [place] Height 2022-08-25 17:48:00 5 [ft_i] [facility] [place] Weight 2022-08-25 17:48:00 [facility] BMI Calculated 2022-08-25 17:48:00 Memori al [place] Systolic (mm Hg) 2022-06-03 17:27:00 Amna rial Andrew Diastolic (mm Hg) 2022-06-03 17:27:00 Mem orial Andrew Heart Rate 2022-06-03 17:27:00 [facility] Height 2022-06-03 17:27:00 5 [ft_i] [facility] [place] Weight 2022-06-03 17:27:00 [facility] BMI Calculated 2022-06-03 17:27:00 Memori al [place] Respitory Rate 2022-04-11 15:12:00 Memori al [place] Height 2022-04-11 15:12:00 162.56 cm [facility] Weight 2022-04-11 15:12:00 [facility] BMI Calculated 2022-04-11 15:12:00 Memori al [place] Systolic (mm Hg) 2022-04-11 15:12:00 Aman rial Andrew Diastolic (mm Hg) 2022-04-11 15:12:00 Mem orial Andrew Heart Rate 2022-04-11 15:12:00 [facility] Systolic (mm Hg) 2021-10-07 15:45:00 Aman rial [place] Diastolic (mm Hg) 2021-10-07 15:45:00 Mem orial [place] Heart Rate 2021-10-07 15:45:00 [facility] [place] Respitory Rate 2021-10-07 15:45:00 Memori al [place] Height 2021-10-07 15:45:00 160.02 cm [facility] Weight 2021-10-07 15:45:00 [facility] BMI Calculated 2021-10-07 15:45:00 Memori al [place] Systolic (mm Hg) 2021-05-14 15:45:00 Aman rial [place] Diastolic (mm Hg) 2021-05-14 15:45:00 Mem orial Andrew Heart Rate 2021-05-14 15:45:00 [facility] [place] Respitory Rate 2021-05-14 15:45:00 Memori al [place] Height 2021-05-14 15:45:00 160.02 cm [facility] Weight 2021-05-14 15:45:00 [facility] [place] BMI Calculated 2021-05-14 15:45:00 Memori al [place] Systolic (mm Hg) 2021-02-11 15:35:00 Aman rial [place] Diastolic (mm Hg) 2021-02-11 15:35:00 Mem orial [place] Heart Rate 2021-02-11 15:35:00 [facility] [place] Respitory Rate 2021-02-11 15:35:00 Memori al [place] Height 2021-02-11 15:35:00 162.56 cm [facility] [place] Weight 2021-02-11 15:35:00 [facility] [place] BMI Calculated 2021-02-11 15:35:00 Memori al [place] Systolic (mm Hg) 2020-11-12 15:12:00 Aman rial [place] Diastolic (mm Hg) 2020-11-12 15:12:00 Mem orial [place] Heart Rate 2020-11-12 15:12:00 [facility] Respitory Rate 2020-11-12 15:12:00 Memori al [place] Weight 2020-11-12 15:12:00 [facility] [place] Systolic (mm Hg) 2020-10-15 16:26:00 Aman rial Andrew Diastolic (mm Hg) 2020-10-15 16:26:00 Mem orial [place] Heart Rate 2020-10-15 16:26:00 [facility] [place] Respitory Rate 2020-10-15 16:26:00 Memori al [place] Height 2020-10-15 16:26:00 160.02 cm [facility] Weight 2020-10-15 16:26:00 [facility] [place] BMI Calculated 2020-10-15 16:26:00 Memori al [facility] Procedures Procedure Date / Time Performing Clinician Source Performed [id number] 2022-07-21 00:00:00 CHAAB.01 [facility] [id number] 2022-01-13 00:00:00 CHAAB.01 [facility] [id number] 2022-01-12 00:00:00 CHAAB.01 [facility] [id number] 2022-01-12 00:00:00 CHAAB.01 [facility] [id number] 2022-01-12 00:00:00 RASSA [facility] [id number] 2022-01-12 00:00:00 RASSA [facility] [id number] 2022-01-12 00:00:00 RASSA [facility] [id number] 2021-08-04 00:00:00 RASSA [facility] [id number] 2021-08-04 00:00:00 RASSA [facility] [id number] 2021-08-04 00:00:00 RASSA [facility] [id number] 2021-05-09 00:00:00 L[address] [facility] CT HEART SCAN PLUS W 2021-03-03 15:31:[address] [facility] PHYSICIAN ORDER US VASCULAR SCREENING 2021-03-03 15:13:36 Garth Hopkins [facility] HEART SCAN PLUS Carotid [facility] [place] endarterectomy<sup>2</sup> Hysterectomy [facility] [place] Cholecyst[facility] Breast biopsy and related Memori al Andrew procedures Appendectomy [facility] Plan of Care Planned Activity Planned Date Details Comments Source Future Scheduled 2022-11-21 65+ [facility]AL [facility] 12:06:57 VACCINE (1 - PCV) [code = 65+ PNEUMOCOCCAL VACCINE (1 - PCV)] Future Scheduled 2022-11-21 [facility]ENZA [facility]ACCINE [facility] 12:06:57 [code = INFLUENZA VACCINE] Future Scheduled 2022-11-21 COVID-19 VACCINE (#1) [facility] 12:06:57 [code = COVID-19 VACCINE (#1)] Future Scheduled 2022-11-21 Hepatitis C screening [facility] Test 12:06:57 (procedure) [code = [id number]] Future Scheduled 2022-11-21 COLONOSCOPY SCREENING [facility] Test 12:06:57 [code = COLONOSCOPY SCREENING] Future Scheduled 2022-11-21 SHINGLES VACCINES (1 Met [facility] Test 12:06:57 of 2) [code = SHINGLES VACCINES (1 of 2)] Future Scheduled 2022-07-31 COVID-19 VACCINE (#1) Me [facility] Test 12:44:36 [code = COVID-19 VACCINE (#1)] Future Scheduled 2022-07-31 Hepatitis C screening [facility] Test 12:44:36 (procedure) [code = [id number]] Future Scheduled 2022-07-31 COLONOSCOPY SCREENING [facility] Test 12:44:36 [code = COLONOSCOPY SCREENING] Future Scheduled 2022-07-31 SHINGLES VACCINES (1 Met [facility] Test 12:44:36 of 2) [code = SHINGLES VACCINES (1 of 2)] Future Scheduled 2022-07-31 65+ [facility]OCOCCAL [facility] 12:44:36 VACCINE (1 - PCV) [code = 65+ PNEUMOCOCCAL VACCINE (1 - PCV)] Future Scheduled 2022-07-31 [facility]ENZA VACCINE [facility] 12:44:36 [code = INFLUENZA VACCINE] Future Scheduled 2022-07-31 COVID-19 VACCINE (#1) [facility] Test 12:44:36 [code = COVID-19 VACCINE (#1)] Future Scheduled 2022-07-31 Hepatitis C screening [facility] Test 12:44:36 (procedure) [code = [id number]] Future Scheduled 2022-07-31 COLONOSCOPY SCREENING [facility] Test 12:44:36 [code = COLONOSCOPY SCREENING] Future Scheduled 2022-07-31 SHINGLES VACCINES (1 Met [facility] Test 12:44:36 of 2) [code = SHINGLES VACCINES (1 of 2)] Future Scheduled 2022-07-31 65+ [facility]OCCAL [facility] 12:44:36 VACCINE (1 - PCV) [code = 65+ PNEUMOCOCCAL VACCINE (1 - PCV)] Future Scheduled 2022-07-31 [facility]UENZA VACCINE [facility] 12:44:36 [code = INFLUENZA VACCINE] Future Scheduled 2022-07-31 COVID-19 VACCINE (#1) [facility] 12:44:36 [code = COVID-19 VACCINE (#1)] Future Scheduled 2022-07-31 Hepatitis C screening [facility] Test 12:44:36 (procedure) [code = [id number]] Future Scheduled 2022-07-31 COLONOSCOPY SCREENING [facility] Test 12:44:36 [code = COLONOSCOPY SCREENING] Future Scheduled 2022-07-31 SHINGLES VACCINES (1 [facility] Test 12:44:36 of 2) [code = SHINGLES VACCINES (1 of 2)] Future Scheduled 2022-07-31 65+ [facility]OCOCCAL [facility] 12:44:36 VACCINE (1 - PCV) [code = 65+ PNEUMOCOCCAL VACCINE (1 - PCV)] Future Scheduled 2022-07-31 INFLUENZA VACCINE [facility] 12:44:36 [code = INFLUENZA VACCINE] Future Scheduled 2022-07-21 COVID-19 VACCINE (#1) [facility] Test 13:14:09 [code = COVID-19 VACCINE (#1)] Future Scheduled 2022-07-21 [facility] C screening [facility] 13:14:09 (procedure) [code = [id number]] Future Scheduled 2022-07-21 [facility] Test 13:14:09 [code = COLONOSCOPY SCREENING] Future Scheduled 2022-07-21 SHINGLES VACCINES (1 [facility] Test 13:14:09 of 2) [code = [...] (#1)] Future Scheduled 2022-07-21 Hepatitis C screening [facility] Test 13:14:09 (procedure) [code = [id number]] Future Scheduled 2022-07-21 COLONOSCOPY SCREENING [facility] Test 13:14:09 [code = COLONOSCOPY SCREENING] Future Scheduled 2022-07-21 SHINGLES VACCINES (1 Met [facility] Test 13:14:09 of 2) [code = SHINGLES VACCINES (1 of 2)] Future Scheduled 2022-07-21 65+ PNEUMOCOCCAL [facility] Test 13:14:09 VACCINE (1 - PCV) [code = 65+ PNEUMOCOCCAL VACCINE (1 - PCV)] Future Scheduled 2022-07-21 INFLUENZA VACCINE [facility] 13:14:09 [code = INFLUENZA VACCINE] Future Scheduled 2022-07-21 COVID-19 VACCINE (#1) [facility] Test 13:14:09 [code = COVID-19 VACCINE (#1)] Future Scheduled 2022-07-21 Hepatitis C screening [facility] Test 13:14:09 (procedure) [code = [id number]] Future Scheduled 2022-07-21 COLONOSCOPY SCREENING [facility] Test 13:14:09 [code = COLONOSCOPY SCREENING] Future Scheduled 2022-07-21 SHINGLES VACCINES (1 Met [facility] Test 13:14:09 of 2) [code = SHINGLES VACCINES (1 of 2)] Future Scheduled 2022-07-21 65+ PNEUMOCOCCAL [facility] Test 13:14:09 VACCINE (1 - PCV) [code = 65+ PNEUMOCOCCAL VACCINE (1 - PCV)] Future Scheduled 2022-07-21 INFLUENZA VACCINE [facility] Test 13:14:09 [code = INFLUENZA VACCINE] Future Scheduled 2022-07-03 COVID-19 [facility]ACCINE (#1) [facility] Test 09:16:22 [code = COVID-19 VACCINE (#1)] Future Scheduled 2022-07-03 Hepatitis C screening [facility] Test 09:16:22 (procedure) [code = 750045933] Future Scheduled 2022-07-03 [facility]ONOSCOPY SCREENING [facility] Test 09:16:22 [code = COLONOSCOPY SCREENING] Future Scheduled 2022-07-03 SHINGLES VACCINES (1 Met [facility] Test 09:16:22 of 2) [code = SHINGLES VACCINES (1 of 2)] Future Scheduled 2022-07-03 65+ P[facility]UMOCOCCAL [facility] Test 09:16:22 VACCINE (1 - PCV) [code = 65+ PNEUMOCOCCAL VACCINE (1 - PCV)] Future Scheduled 2022-07-03 INFLUENZA VACCINE [facility] Test 09:16:22 [code = INFLUENZA VACCINE] Future Scheduled 2022-07-03 COVID-19 VACCINE (#1) [facility] Test 09:16:22 [code = COVID-19 VACCINE (#1)] Future Scheduled 2022-07-03 Hepatitis C screening [facility] Test 09:16:22 (procedure) [code = 838600549] Future Scheduled 2022-07-03 COLONOSCOPY SCREENING [facility] Test 09:16:22 [code = COLONOSCOPY SCREENING] Future Scheduled 2022-07-03 SHINGLES VACCINES (1 Met [facility] Test 09:16:22 of 2) [code = SHINGLES VACCINES (1 of 2)] Future Scheduled 2022-07-03 65+ P[facility]UMOCOCCAL [facility] Test 09:16:22 VACCINE (1 - PCV) [...] 00:00:00 (1 of 1 - [facility] [id number] PCV13) [code = PNEUMOCOCCAL 65+ YRS (1 of 1 - [id number]_Qfwbozo PCV13)] Future Scheduled 1995-12-29 SHINGLES VACCINES (1 [...] Shoaib es Test 00:00:00 malignant neoplasm of [facility] colon (procedure) [code = 980110304] Future Scheduled COLON CANCER [facility] of Test SCREENING: COLONOSCOPY Medic ine [code = COLON CANCER SCREENING: COLONOSCOPY] Future Scheduled MAMMOGRAM ANNUAL [code B [facility] of Test = MAMMOGRAM ANNUAL] Medicine Future Scheduled TETANUS SHOT (ADULT) [facility] of Test [code = TETANUS SHOT Medicin e (ADULT)] Future Scheduled HEPATITIS C SCREENING [facility] of Test [code = HEPATITIS C Medicine SCREENING] Future Scheduled FALL SCREEN [code = [facility] of Test FALL SCREEN] Medicine Future Scheduled OSTEOPOROSIS SCREENING B [facility] of Test [code = OSTEOPOROSIS Medicin e SCREENING] Future Scheduled PNEUMOVAX >=65 [facility] of Test (PPSV23) [code = Medicine PNEUMOVAX >=65 (PPSV23)] Future Scheduled PREVNAR >= 65 (PCV13) Ba [facility] of Test [code = PREVNAR >= 65 Medici ne (PCV13)] Future Scheduled FLU VACCINE > 6 MONTHS B [facility] of Test [code = FLU VACCINE > Medici ne 6 MONTHS] Future Scheduled MEDICARE IPPE (WELCOME [facility] [employer] of Test TO MEDICARE) [code = Medicin e MEDICARE IPPE (WELCOME TO MEDICARE)] Future Scheduled COVID-19 VACCINE (1) [facility] Test [code = COVID-19 VACCINE (1)] Future Scheduled Hepatitis C screening Me [facility] Test (procedure) [code = 660204150] Future Scheduled BREAST CANCER [facility] Test SCREENING [code = BREAST CANCER [...] Clinicians Facility Department ID 2022-12-23 2022-12-23 Outpatient IE BERLIN [id number] [facility]oria 11:00:00 11:00:00 12 todd Andrew 2022-12-23 2022-12-23 Outpatient IE IE [id number] [facility]oria 11:00:00 11:00:00 12 todd Morales 2022-12-20 2022-12-20 Outpatient IE SABI [id number] [facility]oria 10:30:00 10:30:00 08 todd Morales 2022-12-20 2022-12-20 Outpatient IE SABI [id number] [facility]oria 10:30:00 10:30:00 08 todd Morales 2022-08-25 2022-08-26 Outpatient IE MNA [id number] [facility]oria 17:45:00 05:59:59 Neurology 11 todd Morales 2022-08-25 2022-08-26 Outpatient MHSABI MNA [id number] [facility]oria 17:45:00 05:59:59 Neurology 11 todd Morales 2022-08-25 2022-08-25 [id number] 11:45:00 23:59:59 Merritt Guerrero 2022-08-25 2022-08-25 Outpatient MHIE MHIE [id number] Memoria 11:45:00 11:45:00 11 l Deaver 2022-08-03 2022-08-03 Ambulatory MHIE MNA [id number] Memoria 17:15:00 17:15:00 Pre-Reg Neurology 10 l Andrés Andrew 2022-08-03 2022-08-03 Ambulatory MHIE MNA [id number] Memoria 17:15:00 17:15:00 Pre-Reg Neurology 10 l Cowley Andrew 2022-08-03 2022-08-03 Outpatient MHIE MHIE [id number] Memoria 11:15:00 11:15:00 10 l Andrew 2022-08-03 2022-08-03 Outpatient DANIA DerasSCHER MHMISCHER [id number] 11:15:00 11:15:00 Merritt 10 Cesar 2022-07-27 2022-07-27 Outpatient EL [facility] HCAMN MUSN [id number] [facility] 16:22:00 16:22:00 Hallie salcedo 46 [facility] 2022-07-21 2022-07-22 Inpatient EILEEN Gold, HCACL INTE [id number] [facility] 05:12:00 11:48:[address] 2022-06-03 2022-06-04 Outpatient MHIE MNA [id number] Memoria 17:15:00 05:59:59 Neurology 09 l Andrés Morales 2022-06-03 2022-06-04 Outpatient MHIE MNA [id number] Memoria 17:15:00 05:59:59 Neurology 09 l Cowley Andrew 2022-06-03 2022-06-03 Outpatient DANIA DerasSCHER MHMISCHER [id number] 11:15:00 23:59:59 Merritt 09 [facility] 2022-06-03 2022-06-03 Outpatient MHIE MHIE [id number] Memoria 11:15:00 11:15:00 09 otdd Andrew 2022-04-12 2022-04-12 Ambulatory nullFlavo MNA [id number] Memoria 15:00:00 15:00:00 Pre-Reg r Neurology 06 l Andrés Morales 2022-04-12 2022-04-12 Ambulatory nullFlavo MNA [id number] Memoria 15:00:00 15:00:00 Pre-Reg r Neurology 06 l Andrés Morales 2022-04-12 2022-04-12 Outpatient MHIE MHIE [id number] Memoria 10:00:00 10:00:00 06 todd Morales 2022-04-12 2022-04-12 [id number] 10:00:00 10:00:00 Merritt 06 Cesar 2022-04-11 2022-04-12 Outpatient nullFlavo MNA [id number] Memoria 15:00:00 04:59:59 r Neurology 07 l Andrés Morales 2022-04-11 2022-04-12 Outpatient nullFlavo MNA [id number] Memoria 15:00:00 04:59:59 r Neurology 07 todd Bowen Deaver 2022-04-11 2022-04-11 [facility] [id number] 10:00:00 23:59:59 Merritt Porfirio Guerrero 2022-04-11 2022-04-11 Outpatient MHIE MHIE [id number] Memoria 10:00:00 10:00:00 07 todd Morales 2022-01-12 2022-01-14 Inpatient EILEEN Evans LORI INTE [id number] [facility] 18:19:00 15:56:00 Rj 45 [facility] 2022-01-12 2022-01-14 Inpatient EILEEN LORI Evans INTE [id number] [facility] 18:19:00 15:56:00 Rj 620[address] [facility] 2021-11-03 2021-11-03 Inpatient EILEEN Moses LORI OUTD [id number] [facility] 04:56:00 04:56:00 Devon 31 [facility] 2021-10-07 2021-10-08 Outpatient nullFlavo MNA [id number] Memoria 15:30:00 04:59:59 r Neurology 05 l Andrés Andrew 2021-10-07 2021-10-08 Outpatient nullFlavo MNA [id number] Memoria 15:30:00 04:59:59 r Neurology 05 todd Morales 2021-10-07 2021-10-07 Outpatient DANIA DerasSCHER MHMISCHER [id number] 10:30:00 23:59:59 Merritt Reyes Guerrero 2021-10-07 2021-10-07 Outpatient MHIE MHIE [id number] Memoria 10:30:00 10:30:00 05 todd Morales 2021-08-04 2021-08-06 Inpatient JOSE RussellCL [facility] [id number] [facility] 21:05:00 12:24:00 Devon 94 [facility] 2021-05-14 2021-05-15 Outpatient nullFlavo MNA [id number] Memoria 15:30:00 04:59:59 r Neurology 04 todd Bowen Deaver 2021-05-14 2021-05-15 Outpatient nullFlavo MNA [id number] Memoria 15:30:00 04:59:59 r Neurology 04 todd Bowen Deaver 2021-05-14 2021-05-14 Outpatient DANIA DerasSCHJESUS MISCHER [id number] 10:30:00 23:59:59 Merritt Gavi Guerrero 2021-05-14 2021-05-14 Outpatient MHIE MHIE [id number] Memoria 10:30:00 10:30:00 04 todd Morales 2021-05-07 2021-05-12 Inpatient NATE Bishop [facility].01 [id number] [facility] 22:34:00 14:15:00 Teddyer 86 Cl [facility] 2021-05-03 2021-05-05 Inpatient JOSE RussellCL [facility] [id number] [facility] 10:30:00 05:25:00 Devon 50 [facility] 2021-03-03 2021-03-03 [facility], 1.2.840.1 [id number] Methodi 09:20:50 23:59:00 Encounter Garth [address]2390.1.[address] 3.430.2.7 Hospit a .3.464316 l .8 2021-03-03 2021-03-03 [facility] 1.2.840.1 [id number] Methodi 09:15:00 09:19:00 Encounter Garth [address]055.1.[address] 3.430.2.7 Hospit a .3.104994 l .8 2021-03-03 2021-03-03 Travel 1.2.840.1 1.2.693.437 [id number] Methodi 00:00:00 00:00:[address] 3.430.2.7 0.2.7.3.698 Ho spita .3.366869 084.8 l .8 2021-02-11 2021-02-12 Outpatient nullFlavo MNA [id number] Memoria 15:15:00 04:59:59 r Neurology 03 l Andrés Morales 2021-02-11 2021-02-12 Outpatient nullFlavo MNA [id number] Memoria 15:15:00 04:59:59 r Neurology 03 l Andrés Morales 2021-02-11 2021-02-11 [facility] [id number] 10:15:00 23:59:59 Merritt 03 Cesar 2021-02-11 2021-02-11 Outpatient MHIE MHIE [id number] Memoria 10:15:00 10:15:00 03 todd Morales 2021-02-08 2021-02-08 Travel 1.2.840.1 1.2.262.499 [id number] Methodi 00:00:00 00:00:[address] 3.430.2.7 0.2.7.3.698 Ho spita .3.603935 084.8 l .8 2021-02-03 2021-02-03 Transcribe [facility] 1.2.840.1 [id number] Methodi 00:00:00 00:00:[address]arth [address]1.[address] 3.430.2.7 Hospit a .3.801743 l .8 2020-11-12 2020-11-13 Outpatient nullFlavo MNA [id number] Memoria 15:00:00 04:59:59 r Neurology 02 l Andrés Morales 2020-11-12 2020-11-13 Outpatient nullFlavo MNA [id number] Memoria 15:00:00 04:59:59 r Neurology 02 l Andrés Morales 2020-11-12 2020-11-12 Outpatient PATTI DerasMTSCHER MISCHER [id number] 10:00:00 23:59:59 Merritt 02 Cesar 2020-11-12 2020-11-12 Outpatient MHIE MHIE [id number] Memoria 10:00:00 10:00:00 02 todd Morales 2020-11-03 2020-11-04 Outpatient nullFlavo MNA [id number] Memoria 18:00:00 04:59:59 r Neurology 01 l Andrés Morales 2020-11-03 2020-11-04 Outpatient nullFlavo MNA [id number] Memoria 18:00:00 04:59:59 r Neurology 01 l Andrés Morales 2020-11-03 2020-11-03 Outpatient DANIA DerasSCHJESUS MISCHER [id number] 13:00:00 23:59:59 Merritt Cesar 2020-11-03 2020-11-03 Outpatient MHIE MHIE [id number] Memoria 13:00:00 13:00:00 01 todd Morales 2020-10-15 2020-10-16 Outpatient nullFlavo MNA [id number] Memoria 16:30:00 04:59:59 r Neurology 00 l Andrés Canoann 2020-10-15 2020-10-16 Outpatient nullFlavo MNA [id number] Memoria 16:30:00 04:59:59 r Neurology 00 l Cowleymadhu Canoann 2020-10-15 2020-10-15 Outpatient PATTI DerasMTSCHER MISCHER [id number] 11:30:00 23:59:59 Merritt 00 Cesar 2019-08-15 2019-08-15 Office MOOK Osorio 1.2.840.114 [id number] [facility] 13:47:41 15:50:19 Visit Michael AMBULATOR 350.1.13.21 College Y 0.2.7.2.686 [id number] [facility] kennedy 800 e 2019-04-24 2019-05-03 Inpatient 3 KARLO BONILLA CVA [id number] [facility] 20:39:00 11:00:00 CRISTIAN [facility] [facility] Results Test Description Test Time Test Comments Results Result [facility] e Comments - US HEAD AND NECK 2022-07-27 17:00:[address] [facility] [place] : 1945 Sex: F FAX: Yumiko Charles [phone] [place]: St: REG Name: MOISE NAYAK [facility] : 1945 Age/S: 76/F [address] [facility] Unit #: [id number] [place]: [place] Phys: Hallie Charles FREIGHT AGENT [address] Acct: [id number] Dis Date: Status: REG CLI PHONE #: [phone] Exam Date: 07/27/2022 1651 FAX #: [phone] Reason: LOCALIZED SWELLING,MASS,LUMP/HE MATOMA EXAMS: CPT CODE: [id number] US HEAD AND NECK 17516 EXAM: - US HEAD AND NECK LOCATION: [...] M.D. CC: Hallie Charles NP Technologist: ANDRIA Yodernvdonovan Date/Time/By: 07/27/2022 (1700) : By: [email or web address] PAGE 1 Signed Report FAX: Yumiko Charles [phone] [place]: St: REG Name: MOISE NAYAK [facility] : 1945 Age/S: 76/F [address] [facility] Unit #: [id number] Loc: [place], [place] Phys: Hallie Charles FREIGHT AGENT [address] Acct: [id number] Dis Date: Status: REG CLI PHONE #: [phone] Exam Date: 07/27/2022 1651 FAX #: [phone] Reason: LOCALIZED SWELLING,MASS,LUMP/HE MATOMA EXAMS: CPT CODE: [id number] US HEAD AND NECK 85497 (Continued) Orig Print D/T: S: 07/27/2022 (1703) PAGE 2 Signed Report SURGICAL 2022-07-22 15:10:00 Test Item Value Reference Range Interpretation Comme nts SURGICAL RUN (test DATE: 07/22/22 [place] - LAB PAGE 1 RUN TIME: 1510 Specimen Inquiry RUN USER: INTERFACE code = PATIENT SR) : MOISE NAYAK ACCT #: [id number] LOC: VERONICA U #: [id number] AGE/SX: 76/F [facility]: Milagros Gold : [birth year] BED: 1 DIS: 07/22/22 STATUS: DIS IN TLOC: SPEC #: [id number] RECD: 3-1027 STATUS: ZONIA REGhislaine #: [id number] DONTE: 07/21/22- SUBM DR: Robert Gold MD ENTE RED: 07/21/22-1040 SP TYPE: SURGICAL OTHR DR: Garth Hopkins MD, Anas MDORDERED: 8830 4, ANATOMIC SPEC COPIES TO: Robert Gold MD [address] [place] [address]. [address] [place] [address] Garth Hopkins MD [address] [place] [address] Chi Valencia MD [address] [place] [address] PROCEDURES: 883 04 (07/21/22-1040) TISSUES: A. CAROTID PLAQUE WITH DECAL CLINICAL HISTORY SAME FINAL DIAGNOSIS Carotid plaque, left, endarterectomy: Atherosclerotic plaque with calcification. GROSS DESCRIP TION Received in formalin labeled "left carotid artery "are 2 segments of lehman-yellowatherosclerotic plaques , up to 3.4 cm in length, 0.8 cm in diameter, with representativesections submi tted (A). Technical component performed at [facility],[address] [place] [address], [place] [id number] Unless gross only, the diagnosis is based upon microscopic examination. CONTINUED ON NE XT PAGE RUN DATE: 07/22/22 [place] - LAB PAGE 2 RUN TIME: 1510 Specimen Inquiry RUN USER: INTERFACE SPEC #: [id number] PATIENT: MOISE NAYAK #[id number] (Continued) ---- GROSS DESCRIPTION (Con tinued) Immunohistochemistry: This test was developed and its performance characteristicsd etermined by this laboratory. It has not been approved nor does it need approvalby the [place] FDA. Appro priate positive and negative controls are reviewed and judgedto be acceptable. This laboratory is certified under the Clinical Laboratory ImprovementAmendments (CLIA-88) as qualified to [facility] high complexity clinical laboratory testing. CLINICAL INFORMATION OCCLUSION AND STENOSIS OF LEFT CAROTID ARTERY Signed SIGNATURE ON FILE Arnold Evans 07/22/22 1510 END OF REPORT CBC W/AUTO [id number] 06:49:00 Test Item Value Reference Range Interpretation [...] (test code NO = MDIFF) BASIC METABOLIC [id number] 06:18:00 Test Item Value Reference Range Interpretation [...] 8.8 mg/dL 8.0-10.5 N CA) BASIC METABOLIC [id number] 09:59:00 Test Item Value Reference Range Interpretation [...] = 8.7 mg/dL 8.0-10.5 N CA) HGB [id number] 09:51:00 Test Item Value Reference Range Interpretation Comments HEMOGLOBIN (test code = HGB) 10.9 g/dL 11.0-15.0 L HEMATOCRIT (test code = HCT) 33.4 % 33.0-45.0 N [id number] 08:02:00 Test Item Value Reference Range Interpretation Comments ACT-ISTAT (test code 287 SEC 74-137 H Perform ed by certified = ACTI) launch operator at [facility] COVID 19 Asymptomatic IH [id number] 15:19:00 Test Item Value Reference Range Interpretation Comments COVID 19 Asymptomatic Negative Negative A nega tive result is IH AG (test code = presumpti ve and should COVNONPUIAG) be confirmedwit h an FDA authorized mole cular assay, if neces cherie forpatient briseida velasquez.A positive result does not rule out co-inf [...] y tests. UA RFLX MICR CULT IF [id number] 13:20:00 Test Item Value Reference Range Interpretation [...] culture: Flank PainSpecimen Description: CLEAN CATCHCOMPREHENSIVE METABOLIC [id number] 13:13:00 Test Item Value Reference Range Interpretation [...] the recommended for nadir for GFRby the [facility] Foundati on for Adults.The GFR will [...] = HGBA1C%) 5.2 %A1C 4.8-6.0 N PROTHROMBIN [id number] 12:55:00 Test Item Value Reference Range Interpretation [...] (to prevent recurrent infar ct). THROMBOPLASTIN TIME [id number] 12:55:00 Test Item Value Reference Range Interpretation Comments THROMBOPLASTIN TIME 26.4 Seconds 25.0-39.5 N Therape utic Range: PARTIAL (test code = 50.4 - 88.3 Seconds PTT) Effective 10/30/2018 CBC W/AUTO [id number] 12:45:00 Test Item Value Reference Range Interpretation [...] code NO = MDIFF) - DUP EXTRACRANIAL [id number] 00:00:00 [facility] 1945 Sex: F Name: MOISE NAYAK [facility] : 1945 Age/S: 76 / F [address] [place] [address] Blvd Unit #: [id number] Loc: [place] [address] Phys: Robert Gold MD Acct: [id number] Dis Date: Status: PRE INPHONE #: [phone] Exam Date: 07/19/2022 1358 FAX #: [phone] Reason: 165.22. EXAMS: CPT CODE: [id number] DUP EXTRACRANIAL DIGNA 29562 PROCEDURE INFORMATION: Exam: US Duplex Bilateral ExtracranialArteries, Carotid Arteries Exam date and time: 07/19/2022 [...] 1 Signed Report (CONTINUED) Name: MOISE NAYAK [facility] : 1945 Age/S: 76 / F [address] [place] [address] Blvd Unit #: [id number] Loc: [place] [address] Phys: Robert Rodriguez MD Acct: [id number] Dis Date: Status: PRE IN PHONE #: [phone] Exam Date: 07/19/2022 5965 FAX #: [phone] Reason: 165.22. EXAMS: CPT CODE: [id number] DUP EXTRACRANIAL DIGNA 22808(Continued) CC: Robert Gold MD Technologist: Janice Meneses RDMS(AB) Trnscb Date/Time: 07/19 (883) [email or web address] Orig Print D/T: S: 07/19/2022 (199) Probe: PAGE 2 Signed Report- XR CHEST 2 [id number] 00:00:00 [facility] 1945 Sex: F FAX: Robert Watt [phone] [place]: St: PRE Name: NAELMOISE [facility] : 1945 Age/S: 76/F [address] [place] [address] Unit #: [id number] Loc: [place] [address] Phys: Robert Gold MD Acct: [id number] Dis Date: Status: PRE IN PHONE #: [phone] Exam Date: 07/19/20227 FAX #: Reason: PREOP EXAMS: CPT CODE: [id number] XR CHEST 2 V 47248 PROCEDURE INFORMATION: Exam: XR Chest Exam date and time: 07/19/2022 12:56 PM Age: 76 years old Clinical indication: Pre-operativeexam; Respiratory screening exam; Additional info: Preop TECHNIQUE: [...] code = SR) R UN DATE: 01/18/22 [facility] PAGE 1 RUN TIME: 1532 Specimen Inquiry RUN USER: INTERFACE P ATIENT: MOISE NAYAK LOC: [place] U #: [id number] AGE/SX: 76/F ROOM: [facility] RE01/12/22REG DR: Rj Evans DO : [birth year] BED: 1 DIS: 01/14/22 STATUS: DIS IN TLOC: SPEC #: [id number] RECD: 01/14/22 STATUS: SOUT REQ #: [id number] DONTE: 01/13/22- [facility] DR: Rj Evans DO ENTERED: 01/14/22 SP TYPE: SURGICAL OTHR DR: Edyta Reynolds MD, Abdul Hannan MD Dalal, Rajesh V MD Mouchli, Anas MD Raslan, Saleem MDORDERED: 59182, ANATOMIC SPEC COPIES TO: Edyta Reynolds MD [address] [place] [address] Robert Gold MD [address] [facility]. [address] [place] [address] Garth Hopkins MD [address] [place] [address] Chi Valencia MD [address] [place] [address] Devon Moses MD [address] [facility] [address] [place] [address] Rj Evans DO [address] [place] [address] PROCEDURES: 88619 (01/14/22) TISSUES: A. ARTERY, ATHEROMATOUS PLAQUE - RT CONTINUED ON NEXT PAGE R UN DATE: 01/18/22 [place] - LAB PAGE 2 RUN TIME: 1532 Specimen Inquiry RUN USER: INTERFACE S PEC #: [id number] PATIENT: MOISE NAYAK #[id number] (Continued) CLINICAL HISTORY SAME FINAL DIAGNOSIS Right carotid plaque, segment: Atherosclerotic plaque. GROSS DESCRIPTION Received is 1 segment of arroyo-white fibrotic tissue measuring 3.1 cm in largest dimension. Sections are submitted. Technical component performed at [facility],[address] [place] [address] Unless gross only, the diagnosis is based [...] 01/18/22 1532 END OF REPORT BASIC METABOLIC [id number] 05:12:00 Test Item Value Reference Range Interpretation [...] code = 8.2 mg/dL 8.0-10.5 N CA) [id number] 05:12:00 Test Item Value Reference Range Interpretation Comments MAGNESIUM (test code = MAG) 2.54 mg/dL 1.80-2.40 H CBC W/AUTO [id number] 04:59:00 Test Item Value Reference Range Interpretation [...] (test code NO = MDIFF) BASIC METABOLIC [id number] 18:30:00 Test Item Value Reference Range Interpretation [...] code = 8.0 mg/dL 8.0-10.5 N CA) [id number] 18:30:00 Test Item Value Reference Range Interpretation Comments PHOSPHOROUS (test code = PHOS) 3.1 MG/DL 2.5-4.9 N [id number] 18:30:00 Test Item Value Reference Range Interpretation Comments MAGNESIUM (test code = MAG) 1.47 mg/dL 1.80-2.40 L CALCIUM [id number] 18:30:00 Test Item Value Reference Range Interpretation Comments CALCIUM IONIZED (test code = ETHAN) 1.21 MMOL/L 1.12-1.32 N CBC W/AUTO [id number] 18:11:00 Test Item Value Reference Range Interpretation [...] (test NO code = MDIFF) BASIC METABOLIC [id number] 15:19:00 Test Item Value Reference Range Interpretation [...] = 8.3 mg/dL 8.0-10.5 N CA) HGB [id number] 14:35:00 Test Item Value Reference Range Interpretation Comments HEMOGLOBIN (test code = HGB) 10.4 g/dL 11.0-15.0 L HEMATOCRIT (test code = HCT) 30.5 % 33.0-45.0 L [id number] 13:05:00 Test Item Value Reference Range Interpretation Comments ACT-ISTAT (test code 347 SEC 74-137 H Perform ed by certified = KHALIDA) launch operator at [facility] COMPREHENSIVE METABOLIC [id number] 11:59:00 Test Item Value Reference Range Interpretation [...] (test code = LDL) NEAR OPTIM AL/ABOVE [id number] HIGH>EJ=513 [place] HIGH*Guidelines provided by the National Choles terol EducationProgra m Adult Treatment Panel III [id number] 11:59:00 Test Item Value Reference Range Interpretation Comments MAGNESIUM (test code = MAG) 1.85 mg/dL 1.80-2.40 N PROTHROMBIN [id number] 10:22:00 Test Item Value Reference Range Interpretation [...] (to prevent recurrent infar ct). THROMBOPLASTIN TIME [id number] 10:22:00 Test Item Value Reference Range Interpretation Comments THROMBOPLASTIN TIME 22.6 Seconds 25.0-39.5 L Therape utic Range: PARTIAL (test code = 50.4 - 88.3 Seconds PTT) Effective 10/30/2018 CBC W/AUTO [id number] 09:58:00 Test Item Value Reference Range Interpretation [...] code = MDIFF) COVID 19 Asymptomatic IH [id number] 07:05:00 Test Item Value Reference Range Interpretation [...] waivedcomplexit y tests. - XR CHEST 2 [id number] 00:00:00 [facility] [place] : 1945 Sex: F FAX:Yumiko Mayer [phone] [place]: St: ADM FAX: Devon Reese MD [phone] FAX: Rj Evans DO Name: MOISE NAYAK [facility] [place] : 1945 Age/S: 76/F [address] [place] [address] Unit #: [id number] Loc: [place] [address] Phys: Hallie Mayer FREIGHT AGENT Acct: [id number] Dis Date: Status: ADM IN PHONE #: [phone] Exam Date: 01/13/2022 1001 FAX #: [phone] Reason: PREOP CEA EXAMS: CPT CODE: [id number] XR CHEST 2 V [id number] PROCEDURE INFORMATION: Exam: XR Chest Exam date [...] by: Renee Mcknight M.D. CC: Hallie Charles FREIGHT AGENT; Devon Moses MD; Rj Evans DO Technologist: RT Lizbet(R) Trnscrd Date/Time/By: 01/13/2022 (1323) : By: [email or web address] Orig Print D/T: S: 01/13/2022 (1323) PAGE 1 Signed ReportBASIC METABOLIC [id number] 13:29:00 Test Item Value Reference Range Interpretation [...] = 9.7 mg/dL 8.0-10.5 N CA) PROTHROMBIN [id number] 13:21:00 Test Item Value Reference Range Interpretation [...] (to prevent recurrent infar ct). CBC W/AUTO [id number] 13:15:00 Test Item Value Reference Range Interpretation [...] DIFF REQUIRED (test code NO = MDIFF) [id number] 14:15:00 Test Item Value Reference Range Interpretation Comments ACT-ISTAT (test code 142 SEC 74-137 H Perform ed by certified = ACTI) launch operator at [facility] [id number] 12:33:00 Test Item Value Reference Range Interpretation Comments ACT-ISTAT (test code 184 SEC 74-137 H Perform ed by certified = ACTI) launch operator at [facility] [id number] 11:07:00 Test Item Value Reference Range Interpretation Comments ACT-ISTAT (test code 255 SEC 74-137 H Perform ed by certified = ACTI) launch operator at [facility] BASIC METABOLIC [id number] 14:51:00 Test Item Value Reference Range Interpretation [...] = 9.5 mg/dL 8.0-10.5 N CA) PROTHROMBIN [id number] 14:46:00 Test Item Value Reference Range Interpretation [...] (to prevent recurrent infar ct). CBC W/AUTO [id number] 14:37:00 Test Item Value Reference Range Interpretation [...] NO = MDIFF) - XR CHEST 2 [id number] [facility]:00[facility]00 [facility] 1945 Sex: F FAX:Devon Reese MD [phone] [place]: St: PRE Name: MOISE NAYAK [facility] Neisha Wing : 1945 Age/S: 75/F [address] [place] [address] Unit #: [id number] Loc: [place] [address] Phys: Devon Moses MD Acct: [id number] Dis Date: Status: PRE INC PHONE #: [phone] Exam Date: 11/01/2021 1342 FAX #: [phone]: PREOP EXAMS: CPT CODE: [id number] XR CHEST 2 V 82840 PROCEDURE INFORMATION: Exam: XR Chest Exam date [...] findings. IMPRESSION: No acute cardiopulmonary findings at 5328 Reported and signed by: Jose Bonilla D.O. CC: Devon Moses MDTechnologist: RT Rina(R) Trnscrd Date/Time/By: 11/01/2021 (8634) : By: [email or web address] Orig Print D/T: S: 11/01/2021 (8620) PAGE 1 Signed ReportHGB [id number] 08:45:00 Test Item Value Reference Range Interpretation Comments HEMOGLOBIN (test code = HGB) 8.9 g/dL 11.0-15.0 L HEMATOCRIT (test code = HCT) 27.4 % 33.0-45.0 L B-TYPE NATRIURETIC [id number] 15:10:00 Test Item Value Reference Range Interpretation Comments B-TYPE NATRIURETIC PEPTIDE (test 59.0 PG/ML 0-100 N code = BNP) BASIC METABOLIC [id number] 14:55:00 Test Item Value Reference Range Interpretation [...] 8.7 mg/dL 8.0-10.5 N CA) CBC W/AUTO [id number] 14:39:00 Test Item Value Reference Range Interpretation [...] DIFF REQUIRED (test code NO = MDIFF) [id number] 19:05:00 Test Item Value Reference Range Interpretation Comments ACT-ISTAT (test code 154 SEC 74-137 H Perform ed by certified = ACTI) launch operator at [facility] [id number] 17:59:00 Test Item Value Reference Range Interpretation Comments ACT-ISTAT (test code 178 SEC 74-137 H Perform ed by certified = ACTI) launch operator at [facility] [id number] 17:08:00 Test Item Value Reference Range Interpretation Comments ACT-ISTAT (test code 207 SEC 74-137 H Perform ed by certified = ACTI) launch operator at [facility] [id number] 16:04:00 Test Item Value Reference Range Interpretation Comments ACT-ISTAT (test code 243 SEC 74-137 H Perform ed by certified = ACTI) launch operator at [facility] [id number] 15:26:00 Test Item Value Reference Range Interpretation Comments ACT-ISTAT (test code 237 SEC 74-137 H Perform ed by certified = ACTI) launch operator at [facility] BASIC METABOLIC [id number] 14:58:00 Test Item Value Reference Range Interpretation [...] = 9.6 mg/dL 8.0-10.5 N CA) PROTHROMBIN [id number] 14:51:00 Test Item Value Reference Range Interpretation Comments PROTHROMBIN TIME 11.8 SECONDS 9.3-12.9 N PATIENT (test code = PTP) INTERNATIONAL NORMAL 1.1 0.8-1.2 N TARGE T INR BY RATIO [...] (to prevent recurrent infar ct). CBC W/AUTO [id number] 14:46:00 Test Item Value Reference Range Interpretation [...] NO = MDIFF) - XR CHEST 2 [id number] 00:00:00 [facility] : 1945 Sex: F FAX:Devon Reese MD [phone] [place]: [place] St: PRE Name: MOISE NAYAK [facility] Neisha Wing : 1945 Age/S: 75/F [address] [place] [address] Bl Unit #: [id number] Loc: [place] [address] Phys: Devon Moses MD Acct: [id number] Dis Date: Status: PRE SDC PHONE #: [phone] Exam Date: 08/02/2021 1340 FAX #: [phone] Reason: PREOP EXAMS: CPT CODE: [id number] XR CHEST 2 V 94840 PROCEDURE INFORMATION: Exam: XR ChestExam date and time: 08/02/2021 12:55 PM Age: 75 years old Clinical indication: Screening exam; Pre-operative exam; Cardiovascular screening; Additional info: Preop TECHNIQUE: [facility]: 2 views. PA and Lateral COMPARISON: [...] Technologist: Sissy Rahman RT(R) Trnscrd Date/Time/By: 08/02/2021 (2537) : By: [email or web address] Orig Print D/T: S: 08/02/2021 (9645) PAGE 1 Signed ReportCBC W/AUTO [id number] 08:01:00 Test Item Value Reference Range Interpretation [...] (test code NO = MDIFF) BASIC METABOLIC [id number] 07:50:00 Test Item Value Reference Range Interpretation [...] code = 9.5 mg/dL 8.0-10.5 N CA) [id number] 07:50:00 Test Item Value Reference Range Interpretation Comments MAGNESIUM (test code = MAG) 1.70 mg/dL 1.80-2.40 L BASIC METABOLIC [id number] 07:53:00 Test Item Value Reference Range Interpretation [...] code = 8.6 mg/dL 8.0-10.5 N CA) [id number] 07:53:00 Test Item Value Reference Range Interpretation Comments MAGNESIUM (test code = MAG) 1.68 mg/dL 1.80-2.40 L CBC W/AUTO [id number] 07:46:00 Test Item Value Reference Range Interpretation [...] (test code NO = MDIFF) CBC W/AUTO [id number] 08:42:00 Test Item Value Reference Range Interpretation [...] x10 3/uL 0.0-0.1 N NRBC#) BASIC METABOLIC [id number] 08:13:00 Test Item Value Reference Range Interpretation [...] code = 8.9 mg/dL 8.0-10.5 N CA) [id number] 08:13:00 Test Item Value Reference Range Interpretation Comments MAGNESIUM (test code = MAG) 1.49 mg/dL 1.80-2.40 L GLUCOSE [id number] 12:42:00 Test Item Value Reference Range Interpretation Comments GLUCOSE BEDSIDE (test 113 MG/DL 70-110 H Perfor med by certified code = GLUBED) launch operator at [facility] HGB [id number] 11:54:00 Test Item Value Reference Range Interpretation Comments HEMOGLOBIN (test code = HGB) 12.9 g/dL 11.0-15.0 N HEMATOCRIT (test code = HCT) 36.8 % 33.0-45.0 N CBC W/AUTO [id number] 08:27:00 Test Item Value Reference Range Interpretation [...] (test code NO = MDIFF) BASIC METABOLIC [id number] 08:04:00 Test Item Value Reference Range Interpretation [...] code = 9.3 mg/dL 8.0-10.5 N CA) [id number] 08:04:00 Test Item Value Reference Range Interpretation Comments MAGNESIUM (test code = MAG) 1.44 mg/dL 1.80-2.40 L COVID 19 Asymptomatic IH [id number] 19:17:00 Test Item Value Reference Range Interpretation Comments COVID 19 Asymptomatic Negative Negative A nega tive result is IH AG (test code = presumpti ve and should COVNONPUIAG) be confirmedwit h an FDA authorized mole cular assay, if neces cherie forpatient briseida ron.A positive result does not rule out co-inf [...] moderate, high or waivedcomplexit y tests. HGB [id number] 11:49:00 Test Item Value Reference Range Interpretation [...] reported as: 35 .3 % CBC W/AUTO [id number] 11:45:00 Test Item Value Reference Range Interpretation [...] (test code NO = MDIFF) BASIC METABOLIC [id number] 07:46:00 Test Item Value Reference Range Interpretation [...] mg/dL 8.0-10.5 N CA) PLT RESPONSE TO [id number] 00:38:00 Test Item Value Reference Range Interpretation [...] be rejected by our instrumentation . HGB [id number] 00:35:00 Test Item Value Reference Range Interpretation Comments HEMOGLOBIN (test code = HGB) 11.5 g/dL 11.0-15.0 N HEMATOCRIT (test code = HCT) 33.3 % 33.0-45.0 N - CT ABD PELVIS W/O [id number] 00:00:00 [facility] 1945 Sex: F Name: MOISE NAYAK [facility] : 1945 Age/S: 75 / F [address] [place] [address] Unit #: [id number] Loc: [place] [address] Phys: David Chong MD Acct: [id number] Dis Date: Status: ADM IN PHONE #: [phone] Exam Date: 05/08/2021 1537 FAX #: [phone] Reason: abd pain, melena EXAMS: CPT CODE: [id number] CT ABD PELVIS W/O CONT 09549 PROCEDURE INFORMATION: Exam: CT Abdomen And Pelvis [...] AM FINDINGS: ABDOMINAL ORGANS: No acute CT abn ormalities of the liver, spleen, pancreas, adrenal glands or kidneys are detected. There is no evidence of acute renal collecting system obstruction or calcified renal collecting system stones. The 16mm low-density lesion arising from the posterolateral cortex of the upper pole the right kidney demonstrates internal attenuation values compatible with a benign cyst for which no follow-up imaging is recommended. BILIARY: The gallbladder is normally distended. No significant biliary ductal dilatationis detected. GASTROINTESTINAL: Bowel assessment is limited by the absence of bowel contrast. A smallhiatal hernia is identified in the lower mediastinum. [...] 1 Signed Report (CONTINUED) Name: [facility] : 1945 Age/S: 75 / F [address] [place] [address] Unit #: [id number] Loc: [place] [address] Phys: David Chong MD Acct: [id number] Dis Date: Status: ADM IN PHONE #: [phone] Exam Date: 05/08/2021 1537 FAX #:[phone] Reason: abd pain, melena EXAMS: CPT CODE: [id number] CT ABD PELVIS W/O CONT 17752 (Continued) IMPRESSION: 1. No acute CT abnormalities of the abdomen or pelvis are detected. SL:131 at 1706 Reported and signed by: eDvin Freedman M.D. CC: David Chong MD Technologist:Rain Quezada, RT(R)(CT) CTDI: DLP: Trnscb Date/Time: 05/08/2021 (1705) tDINA Orig Print D/T: S: 05/08/2021 (1706) PAGE 2 Signed ReportLACTIC [id number] 22:01:00 Test Item Value Reference Range Interpretation Comments LACTIC ACID (test code = LACT) 0.6 mmol/L 0.4-1.9 N BASIC METABOLIC [id number] 20:49:00 Test Item Value Reference Range Interpretation [...] 9.5 mg/dL 8.0-10.5 N CA) COMPREHENSIVE METABOLIC [id number] 20:49:00 Test Item Value Reference Range Interpretation [...] IUnit/L 20-125 N code = ALKP) PROTHROMBIN [id number] 20:43:00 Test Item Value Reference Range Interpretation [...] (to prevent recurrent infar ct). CBC W/O [id number] 20:35:00 Test Item Value Reference Range Interpretation [...] fL 7.0-9.0 H = MPV) COAGULATION TIME [id number] 20:22:00 Test Item Value Reference Range Interpretation Comments COAGULATION TIME 261 SECONDS Performed b y ACTIVATED (test code = certi fied launch operator ACT) at [facility] COAGULATION TIME [id number] 20:22:00 Test Item Value Reference Range Interpretation Comments COAGULATION TIME 272 SECONDS Performed b y ACTIVATED (test code = certi fied launch operator ACT) at [facility] PROTHROMBIN [id number] 12:32:00 Test Item Value Reference Range Interpretation [...] (to prevent recurrent infar ct). BASIC METABOLIC [id number] 12:16:00 Test Item Value Reference Range Interpretation [...] 9.4 mg/dL 8.0-10.5 N CA) CBC W/AUTO [id number] 12:03:00 Test Item Value Reference Range Interpretation [...] 3/uL 0.0-0.1 N NRBC#) - CHEST 2 [id number] 00:00:00 [facility] : 1945 Sex: F FAX:Devon Reese MD [phone] [place]: St: PRE Name: MOISE NAYAK [facility] : 1945 Age/S: 75/F [address] [place] [address] Unit #: [id number] Loc: [place] [address] Phys: Devon Moses MD Acct: [id number] Dis Date: Status: PRE [facility] [place] [place] PHONE #: [phone] Exam Date: 05/03/2021 1213 FAX #: [phone] Reason: PREOP EXAMS: CPT CODE: [id number] XR CHEST 2 V 13323 PROCEDURE INFORMATION: Exam: XR Chest Exam date and time: 05/03/2021 11:44 AM Age: 75 years old Clinical indication: Other: Preop TECHNIQUE: Imaging protocol: XR of the chest. Views: 2 views. PA and Lateral COMPARISON: No relevant prior studies available. FINDINGS: Lungs: There are normal lung volumes without consolidation or interstitial o ppacities. Pleural spaces: No pleural effusion. No pneumothorax. Heart/Mediastinum: The heart size is normal. Vasculature: Aortic arch calcifications are present. Bones/joints: No acute abnormality. IMPRESSION: No acute cardiopulmonary process. Electronically Signed by Mehrdad Martinez on 05/03/2021 at 1226 Reported and signed by: Eliud Martinez M.D. CC: Devon Moses MD Technologist: RT Pam(Vahid) Trnscrd Date/Time/By: 05/03/2021 (9337) : By: [email or web address] Orig Print D/T:S: 05/03/2021 (5013) PAGE 1 Signed ReportCT Heart Scan Plus [...] of Atherosclerosis0-Normal 1-10 - Minimal extent of vrraumcigqytzpz52-883 - Mild extent of hjwagimwlgjrkoi659-767 - Moderate extent of atherosclerosis> 400 - Severe extent of atherosclerosis RECOMMENDATION:A score of 1197 places the patient in the 90th percentile rank. That means 10%of the females at the ages from 71-75 have a higher calcium score. Intensive risk factor modification is indicated to prevent further progression (>0). Please contact your physician regarding these results. INCIDENTAL FINDINGS:None [id number] Interface, Radiology Results - 03/03/2021 10:47 AM CDT EXAMINATION: CT [...] of Atherosclerosis0-Normal 1-10 - Minimal extent of xhuksqnsqjyatst32-576 - Mild extent of mcennxkzvpijxeh219-376 - Moderate extent of atherosclerosis> 400 - Severe extent of atherosclerosisRECOMMENDATION:A score of 1197 places the patient in the 90th percentile rank. That means 10% of the females at the ages from 71-75 have a higher calcium score. Intensive risk factor modification is indicated to prevent further progression (>0). Please contact your physician regarding these results.INCIDENTAL FINDINGS:[id number] [id number] vascular screening heart scan plus (self [...] with dedicated carotid artery ultrasound for further evaluationand velocity measurements.ABDOMINAL AORTA: The visualized aspects of [...] code = 2.9 meq/L 3.5-5.1 L 379) [id number] 07:21:00 Test Item Value Reference Range Interpretation Comments MAGNESIUM (BEAKER) (test code = 1.5 mg/dL 1.6-2.6 L 627) [id number] 06:36:00 Test Item Value Reference Range Interpretation Comments POTASSIUM (BEAKER) (test code = 3.5 meq/L 3.5-5.1 379) [id number] 06:36:00 Test Item Value Reference Range Interpretation Comments MAGNESIUM (BEAKER) (test code = 1.5 mg/dL 1.6-2.6 L 627) BASIC METABOLIC [id number] 10:13:00 Test Item Value Reference Range Interpretation [...] 1092) DATA TO CALCULA TE ESTIMATED GFR. [id number] 10:08:00 Test Item Value Reference Range Interpretation Comments MAGNESIUM (BEAKER) (test code = 1.4 mg/dL 1.6-2.6 L 627) [id number] 04:41:00 Test Item Value Reference Range Interpretation Comments MAGNESIUM (BEAKER) (test code = 1.4 mg/dL 1.6-2.6 L 627) BASIC METABOLIC [id number] 04:41:00 Test Item Value Reference Range Interpretation [...] ESTIMATED GFR. CBC W/PLT COUNT & AUTO [id number] 04:23:00 Test Item Value Reference Range Interpretation [...] (BEAKER) (test code = 2801) BASIC METABOLIC [id number] 06:29:00 Test Item Value Reference Range Interpretation [...] 358) GLUCOSE RANDOM 110 mg/dL 70-105 H (NORMA) (test code = 652) CALCIUM (NORMA) 9.6 mg/dL 8.4-10.2 (test code = 697) EGFR (NORMA) (test INSUFFIC IENT CLINICAL code = 1092) DATA TO CALCULA TE ESTIMATED GFR. [id number] 06:26:00 Test Item Value Reference Range Interpretation Comments MAGNESIUM (NORMA) (test code = 1.4 mg/dL 1.6-2.6 L 627) POCT-GLUCOSE [id number] 04:52:00 Test Item Value Reference Range Interpretation Comments POC-GLUCOSE METER 103 mg/dL 70-110 TESTED AT [facility] 6720 (NORMA) (test code = KELSIE [place]ABLO [place] 1538) [address] CT, BRAIN, WITHOUT [id number] 01:41:00Reason for exam:->Fall and hit head on [...] right MCA territory. Signed: Ana Maria Daniels MDReport Verified Date/Time: 04/18/2019 01:41:45 CT, CEREBRAL PERFUSION [id number] 13:14:00Reason for exam:- >Assessment for collateral perfusionAnesthesia:->NoneFINAL [...] territory is tissue at risk. Signed: [facility] Verified Date/Time: 04/17/2019 13:14:17 CT, CAROTID, [id number] 13:27:00Reason for exam:->cvaFINAL REPORT CLINICAL HISTORY: cvaR [...] the diminutive distal right vertebral artery. Bilateral manufacturing design engineer and branches are of normal caliber. The [...] Electronically signed by: Triston ARTIS 04/15/2019 01:27 [facility] [id number] 13:27:00Reason for exam:->right MCA strokeFINAL REPORT CLINICAL [...] the diminutive distal right vertebral artery. Bilateral manufacturing design engineer and branches are of normal caliber. The [...] signed by: Triston ARTIS 04/15/2019 01:27 PMURIC [id number] 06:14:00 Test Item Value Reference Range Interpretation Comments URIC ACID (BEAKER) (test code = 3.8 mg/dL 2.6-7.2 773) BASIC METABOLIC [id number] 06:36:00 Test Item Value Reference Range Interpretation [...] TO CALCULA TE ESTIMATED GFR. BASIC METABOLIC [id number] 06:09:00 Test Item Value Reference Range Interpretation [...] ESTIMATED GFR. CBC W/PLT COUNT & AUTO [id number] 05:36:00 Test Item Value Reference Range Interpretation [...] (BEAKER) (test code = 2801) BASIC METABOLIC [id number] 06:05:00 Test Item Value Reference Range Interpretation [...] TE ESTIMATED GFR. RAD, ABDOMEN/KUB, 1 VIEW [id number] 02:48:00Reason for exam:->Corpak placement 0111 AMFINAL REPORT [...] Date/Time: 04/12/2019 02:48:37 RAD, ABDOMEN/KUB, 1 VIEW [id number] 00:53:00Reason for exam:->Corpak placement verification. 0005 AMShould [...] Verified Date/Time: 04/12/2019 00:53:54 MR, BRAIN, WITHOUT [id number] 00:10:00Reason for exam:->Ischemic Stroke Evaluationwith General AnesthesiaFINAL [...] Date/Time: 04/12/2019 00:10:30 MR, MRA, BRAIN, WITHOUT [id number] 00:10:00Reason for exam:->Ischemic Stroke Evaluationwith general anesthesiaFINAL [...] 04/12/2019 00:10:30 MR, MRA, NECK, WITHOUT IV [id number] 00:10:00Reason for exam:->Ischemic Stroke Evaluationwith general anesthesiaFINAL [...] Ronald Gaines MDReport Verified Date/Time: 04/12/2019 00:10:30 [id number] 13:25:00 Test Item Value Reference Range Interpretation Comments RPR SCREEN (BEAKER) (test code = Nonreactive Nonreactive 420) HEMOGLOBIN [id number] 10:35:00 Test Item Value Reference Range Interpretation Comments HEMOGLOBIN A1C (BEAKER) (test code = 5.5 % 4.3-6.1 368) COMPREHENSIVE METABOLIC [id number] 07:01:00 Test Item Value Reference Range Interpretation [...] 1092) DATA TO CALCULA TE ESTIMATED GFR. [id number] 06:29:00 Test Item Value Reference Range Interpretation Comments MAGNESIUM (BEAKER) (test code = 1.6 mg/dL 1.6-2.6 627) FastingLIPID [id number] 06:29:00 Test Item Value Reference Range Interpretation [...] Very High >=190 Fasting TSH/FREE T4 IF [id number] 06:22:00 Test Item Value Reference Range Interpretation Comments THYROID STIMULATING HORMONE 1.35 uIU/mL 0.35-4.94 (BEAKER) (test code = 772) CBC W/PLT COUNT & AUTO [id number] 06:01:00 Test Item Value Reference Range Interpretation [...] code = 2801) URINALYSIS WITH MICROSCOPIC IF [id number] 14:45:00 Test Item Value Reference Range Interpretation [...] (test code = 2795) VITAMIN B12 AND [id number] 14:43:00 Test Item Value Reference Range Interpretation Comments VITAMIN B12 (BEAKER) (test code = 1414 pg/mL 213-816 H 774) FOLATE (BEAKER) (test code = 362) > ng/mL >=7.0 TSH/FREE T4 IF [id number] 14:36:00 Test Item Value Reference Range Interpretation Comments THYROID STIMULATING HORMONE 1.54 uIU/mL 0.35-4.94 (BEAKER) (test code = 772) BASIC METABOLIC [id number] 13:34:00 Test Item Value Reference Range Interpretation [...] 1092) DATA TO CALCULA TE ESTIMATED GFR. [id number] 13:18:00 Test Item Value Reference Range Interpretation Comments MAGNESIUM (BEAKER) (test code = 1.4 mg/dL 1.6-2.6 L 627)
--- NOTE | 2022-11-21 15:04 | RAD REPORT ---
EXAM DESCRIPTION: CT - CTHCSPWOC - 11/21/2022 1:51 pm CLINICAL HISTORY: fall, weakness COMPARISON: Head C Spine Mpr Wo Con dated 09/04/2022; Neck Angio dated 07/24/2022 TECHNIQUE: Axial thin cut noncontrast CT images of the head were obtained. Axial thin cut noncontrast CT images of the cervical spine were obtained. Multiplanar reformatted images were generated and reviewed. All CT scans are performed using dose optimization technique as appropriate and may include automated exposure control or mA/KV adjustment according to patient size. FINDINGS: CT HEAD WITHOUT CONTRAST: No acute hemorrhage, hydrocephalus or extra-axial collection is identified. Right operculum, subinsul ar, and posterior parietal areas of encephalomalacia are stable. Mild diffuse parenchymal volume loss with stable mildly prominent ventricular caliber No areas of brain edema or midline shift. The paranasal sinuses and mastoids are clear.The calvarium is intact. CT CERVICAL SPINE WITHOUT CONTRAST: No fracture or subluxation.No prevertebral soft tissues swelling is identified. Degenerative changes at C5-6 with disc height loss and posterior disc osteophyte complex formation with annular mineraliz ation, mildly encroaching upon the canal again seen. IMPRESSION: No acute traumatic intracranial or cervical spine findings. Stable cervical spine degenerative changes.
--- NOTE | 2022-11-21 15:05 | RAD REPORT ---
EXAM DESCRIPTION: RADChest Single View11/21/2022 2:03 pm CLINICAL HISTORY: fall, weakness COMPARISON: Chest Single View dated 09/04/2022; Chest Single View dated 07/24/2022; Chest Single View d ated 10/24/2021; Chest Single View dated 07/28/2021 TECHNIQUE: Portable AP view of the chest. FINDINGS: The lungs are clear. No pneumothorax or effusion. The cardiomediastinal contours are unrem arkable. IMPRESSION: No acute cardiopulmonary process.
--- NOTE | 2022-11-21 15:06 | RAD REPORT ---
EXAM DESCRIPTION: RAD - Forearm Left - 11/21/2022 2:02 pm CLINICAL HISTORY: fall, swelling COMPARISON: No comparisons TECHNIQUE: Left forearm, 2 views. FINDINGS: No fracture is identified. There is no dislocation or periosteal reaction noted. Advanced degenerative changes at the thumb base and milder degenerative changes throughout the wrist. No foreign body or other soft tissue abnormality. IMPRESSION: No acute osseous abnormality. Degenerative changes as above.
--- NOTE | 2022-11-21 15:59 | RAD REPORT ---
EXAM DESCRIPTION: RAD - Tib Fib Right - 11/21/2022 2:03 pm CLINICAL HISTORY: fall, swelling COMPARISON: No comparisons TECHNIQUE: Right tibia and fibula, 2 views. FINDINGS: No fracture is identified. There is no dislocation or periosteal reaction noted. No acute or suspicious bony finding. Mild degenerative remodeling along the weight-bearing articulations. No foreign body or other soft tissue abnormality. Mineralization along the lateral more than medial m enisci, could relate to the positional arthropathy suggest CPPD. IMPRESSION: No acute osseous abnormality of the right tibia fibula.
[2022-11-21 17:29] LABS: Absolute Lymphocytes (CBC) 1.5 K/uL (0.7-4.9); Hematocrit 37.4 % (36.0-45.0); Lymphocytes % 20.9 % (15.3-44.8); MCV 91.3 fL (80-100); MPV 8.4 fL (7.6-11.3)
[2022-11-21 17:35] LABS: Protime INR 1.01
[2022-11-21 17:50] LABS: Magnesium 2.2 mg/dL (1.6-2.4); Potassium 3.8 mEq/L (3.5-5.1); Troponin High Sensitivity 5.8 pg/mL (<58.9)
--- NOTE | 2022-11-21 18:22 | EDPHYS ---
Physician Documentation [facility] Name: Marla Campos Age: 76 yrs Sex: Female : 1945 Arrival Date: 11/21/2022 Time: 12:04 Bed 5 Private MD: Garth Hopkins V ED Physician Naveed Palacios HPI: 11/21 13:27 This 76 yrs old Female presents to ER via Ambulatory with complaints of Fall Injury, jmm Wrist Injury. 13:27 Details of fall: The patient fell from an upright position. Onset: The symptoms/episode jmm began/occurred acutely, 2 day(s) ago. Is a 76-year-old female with history of CVA, GERD, hyperlipidemia, hypertension the presents emerged department with complaints of pain to her right tibia and left forearm following multiple falls which have occurred over the past 2 days. Denies hitting her head. states she has had difficulty walking secondary to her stroke. Patient falls often.. Historical: - Allergies: 13:21 Biaxin; aa5 13:21 Breo Ellipta; aa5 13:21 CITRIC ACID; aa5 13:21 Clotrimazole-Betamethasone; aa5 13:21 Demerol; aa5 13:21 Doxycycline; aa5 13:21 Florinef Acetate; aa5 13:21 GABAPENTIN; aa5 13:21 Iodinated Contrast Media - IV Dye; aa5 13:21 Lyrica; aa5 13:21 PENICILLINS; aa5 13:21 Periostat; aa5 13:21 Prevacid; aa5 13:21 QUINOLONES; aa5 13:21 relafen; aa5 13:21 Sulfa (Sulfonamide Antibiotics); aa5 13:21 Vioxx; aa5 - PMHx: 13:21 Asthma; CVA; fluid retention; GERD; Hypercholesterolemia; Hypertensive disorder; Left aa5 sided weakness-mild (previous CVA); - PSHx: 13:21 Carotid endarterectomy; Coronary Angioplasty; right leg stent; aa5 13:25 heart stents; aa5 - Immunization history:: Adult Immunizations unknown. - Social history:: Smoking status: Patient denies any tobacco usage or history of. ROS: 13:27 Constitutional: Negative for fever, chills, and weight loss, Cardiovascular: Negative jmm for chest pain, palpitations, and edema, Respiratory: Negative for shortness of breath, cough, wheezing, and pleuritic chest pain. 13:27 MS/extremity: Positive for pain. 13:27 All other systems are negative. Exam: 13:27 Constitutional: This is a well developed, well nourished patient who is awake, alert, jmm and in no acute distress. Head/Face: atraumatic. Eyes: EOMI, no conjunctival erythema appreciated ENT: Moist Mucus Membranes Neck: Trachea midline, Supple Chest/axilla: Normal chest wall appearance and motion. Cardiovascular: Regular rate and rhythm. No edema appreciated Respiratory: Normal respirations, no respiratory distress appreciated Abdomen/GI: Non distended Back: Normal ROM 13:27 Skin: Ecchymosis noted to the left forearm and the right tibia. 13:27 Neuro: Orientation: is normal, Mentation: is normal, Memory: is normal. 13:27 Psych: Behavior/mood is pleasant, cooperative. Vital Signs: 13:22 BP 160 / 71; Pulse 62; Resp 17 S; Temp 98(TE); Pulse Ox 97% on R/A; Weight 69.85 kg aa5 (R); Height 5 ft. 3 in. (R); 17:51 BP 165 / 63; Pulse 57; Resp 16; Pulse Ox 100% ; bp 18:46 BP 145 / 58; Pulse 60; Resp 16; Pulse Ox 99% ; bp 13:22 Body Mass Index 27.28 (69.85 kg, 160.02 cm) aa5 MDM: 13:27 Patient medically screened. [facility] 18:20 Differential diagnosis: Fracture, CVA, ACS, anemia, syncope, vasovagal syncope. [facility] 18:20 Data reviewed: vital signs, nurses notes, lab test result(s), radiologic studies, CT [facility] scan. Consideration of Admission/Observation Escalation of care including admission/observation considered. I considered the following discharge prescriptions or medication management in the emergency department Medications were administered in the Emergency Department. See MAR. Historians other than the Patient: . Counseling: I had a detailed discussion with the patient and/or guardian regarding: the historical points, exam findings, and any diagnostic results supporting the discharge/admit diagnosis, radiology results, the need for outpatient follow up, to return to the emergency department if symptoms worsen or persist or if there are any questions or concerns that arise at home. Refusal of service: The patient/guardian displays adequate decision making capability and despite a detailed discussion of alternatives, benefits, risks, and consequences refuses: Admission to the hospital for further work-up and treatment. 11/21 13:28 Order name: Basic Metabolic Panel; Complete Time: 17:50 [facility] 11/21 13:28 Order name: CBC with Diff; Complete Time: 17:32 [facility] 11/21 13:28 Order name: Magnesium; Complete Time: 17:50 [facility] 11/21 13:28 Order name: NT PRO-BNP; Complete Time: 17:50 [facility] 11/21 13:28 Order name: PT-INR; Complete Time: 17:37 [facility] 11/21 13:28 Order name: Troponin HS; Complete Time: 17:50 [facility] 11/21 13:28 Order name: XRAY Chest (1 view); Complete Time: 15:07 [facility] 11/21 13:28 Order name: CT Head C Spine; Complete Time: 15:05 [facility] 11/21 13:28 Order name: Forearm Left XRAY; Complete Time: 15:07 [facility] 11/21 13:28 Order name: Tib Fib Right XRAY; Complete Time: 16:02 [facility] 11/21 13:28 Order name: EKG; Complete Time: 13:28 [facility] 11/21 13:28 Order name: Cardiac monitoring; Complete Time: 15:45 [facility] 11/21 13:28 Order name: EKG - Nurse/Tech; Complete Time: 15:45 [facility] 11/21 13:28 Order name: IV Saline Lock; Complete Time: 17:32 [facility] 11/21 13:28 Order name: Labs collected and sent; Complete Time: 17:32 [facility] 11/21 13:28 Order name: O2 Per Protocol; Complete Time: 15:45 [facility] 11/21 13:28 Order name: O2 Sat Monitoring; Complete Time: 15:45 [facility] Administered Medications: No medications were administered Disposition Summary: 11/21/22 18:22 Discharge Ordered Location: Home [facility] Condition: Stable [facility] Diagnosis - Repeated falls jmm - Dehydration jmm - Contusion of the left forearm jmm - Contusion of the right lower leg jmm Followup: [facility] - With: Garth Hopkins MD - When: 2 - 3 days - Reason: Recheck today's complaints, Continuance of care, Re-evaluation by your physician Discharge Instructions: - Discharge Summary Sheet jmm - Dehydration, Adult jmm - Fall Prevention in the Home, Adult jm Forms: - Medication Reconciliation Form jmm - Thank You Letter arielm - Antibiotic Education arielm - Prescription Opioid Use valerie Signatures: Dispatcher [employer] Jarrett Cornelius PA PA jmm Calderon, Audri, RN RN aa5 Corrections: (The following items were deleted from the chart) 13:25 13:21 PSHx: hear stents; aa5 aa5
--- NOTE | 2022-11-21 18:22 | ER ---
Nurse's Notes [facility] Name: Marla Campos Age: 76 yrs Sex: Female : 1945 Arrival Date: 11/21/2022 Time: 12:04 Bed 5 Private MD: Garth Hopkins V Diagnosis: Repeated falls;Dehydration;Contusion of the left forearm;Contusion of the right lower leg Presentation: 11/21 13:22 Chief complaint: Patient states: generalized weakness that began 2-3 days ago, had a aa5 fall yesterday and hurt right lower leg, also reports fall today and hurt left wrist. Pt denies head injury. Reports she takes Plavix. Pt also reports feeling lightheaded prior to fall today. Coronavirus screen: At this time, the client does not indicate any symptoms associated with coronavirus-19. Ebola Screen: Patient denies travel to an Ebola-affected area in the 21 days before illness onset. Initial Sepsis Screen: Does the patient meet any 2 criteria? No. Patient's initial sepsis screen is negative. Does the patient have a suspected source of infection? No. Patient's initial sepsis screen is negative. Risk Assessment: Do you want to hurt yourself or someone else? Patient reports no desire to harm self or others. Onset of symptoms was November 2022. 13:22 Acuity: DANNY 3 aa5 13:22 Method Of Arrival: Ambulatory aa5 Triage Assessment: 15:30 General: Appears in no apparent distress. Behavior is calm, cooperative, appropriate bp for age. Pain: Complains of pain in left arm. EENT: No deficits noted. Neuro: No deficits noted. Cardiovascular: No deficits noted. Respiratory: No deficits noted. GI: No signs and/or symptoms were reported involving the gastrointestinal system. : No signs and/or symptoms were reported regarding the genitourinary system. Derm: No deficits noted. Musculoskeletal: No deficits noted. Injury Description: Bruise sustained to left arm. Historical: - Allergies: 13:21 Biaxin; aa5 13:21 Breo Ellipta; aa5 13:21 CITRIC ACID; aa5 13:21 Clotrimazole-Betamethasone; aa5 13:21 Demerol; aa5 13:21 Doxycycline; aa5 13:21 Florinef Acetate; aa5 13:21 GABAPENTIN; aa5 13:21 Iodinated Contrast Media - IV Dye; aa5 13:21 Lyrica; aa5 13:21 PENICILLINS; aa5 13:21 Periostat; aa5 13:21 Prevacid; aa5 13:21 QUINOLONES; aa5 13:21 relafen; aa5 13:21 Sulfa (Sulfonamide Antibiotics); aa5 13:21 Vioxx; aa5 - PMHx: 13:21 Asthma; CVA; fluid retention; GERD; Hypercholesterolemia; Hypertensive disorder; Left aa5 sided weakness-mild (previous CVA); - PSHx: 13:21 Carotid endarterectomy; Coronary Angioplasty; right leg stent; aa5 13:25 heart stents; aa5 - Immunization history:: Adult Immunizations unknown. - Social history:: Smoking status: Patient denies any tobacco usage or history of. Screenin:51 [facility] ED Fall Risk Assessment (Adult) History of falling in the last 3 months, bp including since admission No falls in past 3 months (0 pts). Abuse screen: Denies threats or abuse. Denies injuries from another. Nutritional screening: No deficits noted. Tuberculosis screening: No symptoms or risk factors identified. Assessment: 15:30 General: SEE TRIAGE NOTE. bp 17:45 Reassessment: Patient appears in no apparent distress at this time. Patient is alert, bp oriented x 3, equal unlabored respirations, skin warm/dry/pink. 18:46 Reassessment: DC HOME AMBULATORY WITH FAMILY. bp Vital Signs: 13:22 BP 160 / 71; Pulse 62; Resp 17 S; Temp 98(TE); Pulse Ox 97% on R/A; Weight 69.85 kg aa5 (R); Height 5 ft. 3 in. (R); 17:51 BP 165 / 63; Pulse 57; Resp 16; Pulse Ox 100% ; bp 18:46 BP 145 / 58; Pulse 60; Resp 16; Pulse Ox 99% ; bp 13:22 Body Mass Index 27.28 (69.85 kg, 160.02 cm) aa5 ED Course: 12:08 Patient arrived in ED. am2 12:08 Garth Hopkins MD is Private Physician. am2 12:37 [facility] 12:37 Naveed Palacios MD is Attending Physician. jmm 13:21 Arm band placed on. aa5 13:24 Triage completed. aa5 13:52 CT Head C Spine In Process Unspecified. EDMS 14:05 XRAY Chest (1 view) In Process Unspecified. EDMS 14:05 Forearm Left XRAY In Process Unspecified. EDMS 14:05 Tib Fib Right XRAY In Process Unspecified. EDMS 15:37 Eliud Schmid, RN is Primary Nurse. bp 15:57 EKG done, by ED staff, reviewed by Jarrett FOX. em1 17:30 Inserted saline lock: 22 gauge in right forearm, using aseptic technique. bp 17:51 Patient has correct armband on for positive identification. Bed in low position. Call bp light in reach. Side rails up X2. Adult w/ patient. 18:21 Garth Hopkins MD is Referral Physician. [facility] 18:46 No provider procedures requiring assistance completed. IV discontinued, intact, bp bleeding controlled, No redness/swelling at site. Pressure dressing applied. Administered Medications: No medications were administered Medication: 18:46 VIS not applicable for this client. bp Outcome: 18:22 Discharge ordered by . jmm 18:47 Discharged to home ambulatory, with family. bp 18:47 Condition: stable 18:47 Discharge instructions given to patient, family, Instructed on discharge instructions, follow up and referral plans. Demonstrated understanding of instructions, follow-up care. 18:47 Patient left the ED. bp Signatures: Dispatcher [employer] EDMA Jarrett Ortega PA PA jmm Martinez, Eric em1 Beth Rick, RN RN aa5 Cami Bunch am2 Eliud Schmid, RN RN bp Corrections: (The following items were deleted from the chart) 13:25 13:21 PSHx: hear stents; aa5 aa5
[2022-11-21 19:25] VITALS: TEMP 98
[2022-11-21 19:29] VITALS: BP 145/58; O2SAT 99
--- NOTE | 2022-11-22 07:53 | EKG ---
Test Date: 2022-11-21 Test Time: 15:46:38 Balance Wheel Facer: KARENA MEASUREMENT RESULTS: Intervals: Rate: 57 MN: 140 QRSD: 90 QT: 424 QTc: 412 [place]: P: 73 MN: 140 QRS: 32 T: 82 INTERPRETIVE STATEMENTS: Sinus bradycardia Nonspecific ST abnormality Abnormal ECG Compared to ECG 09/04/2022 17:09:32 ST (T wave) deviation now present Sinus rhythm no longer present Electronically Signed On 11-22-22 07:52:21 CDT by Armando Simeon
== END 2022-11-21 18:47 | disposition home or self-care (01) ==
LOC: ER 12:04
DX: S80.11XA Contusion of right lower leg, initial encounter (principal); S50.12XA Contusion of left forearm, initial encounter; E86.0 Dehydration; R29.6 Repeated falls; I10 Essential (primary) hypertension; Z95.1 Presence of aortocoronary bypass graft; Z95.818 Presence of other cardiac implants and grafts; Z88.0 Allergy status to penicillin; Z88.1 Allergy status to other antibiotic agents; Z88.2 Allergy status to sulfonamides; Z88.5 Allergy status to narcotic agent; Z91.041 Radiographic dye allergy status; Z91.040 Latex allergy status
CPT/HCPCS: 36415; 70450; 71045; 72125; 80048; 83735; 83880; 84484; 85025; 85610; 93005; 99284

== ENCOUNTER 2022-12-24 11:04 | Emergency (ER) | payer OTHER ==
--- OUTSIDE RECORDS SUMMARY | 2022-12-24 11:32 | XMS REPORT | Continuity of Care Document ---
:1945 Author Organization [facility] t Address [address] [place] [address] Care Team Providers Name Role Phone Garth Hopkins MD Primary Care Physician Merritt Deras Attending Clinician Hallie Charles Attending Clinician Unavailable Robert Gold Attending Clinician Unavailable Rj Evans Attending Clinician Unavailable Devon Whatley Attending Clinician Unavailable Arun Bishop Attending Clinician Unavailable Garth Hopkins MD Attending Clinician Michael Osorio MD Attending Clinician CRISTIAN DURAN MADHURA Attending Clinician Unavailable AMBROCIO FERREIRA Attending Clinician Unavailable Hallie Charles Admitting Clinician Unavailable Robert Gold Admitting Clinician Unavailable Rj Evans Admitting Clinician Unavailable Garth Hopkins V Admitting Clinician Unavailable Devon Whatley Admitting Clinician Unavailable Arun Bishop Admitting Clinician Unavailable Physician, No Primary or Family Admitting Clinician Unavaila CRISTIAN Ramírez MADHURA Admitting Clinician Unavailable RAJAN BOOKER Admitting Clinician Unavailable Payers Payer Name Policy Type Policy Number Effective Date Expiration Date Yudi VALENTINO AEMARIA ELENA [id number] Problems Condition Condition Condition Status Onset Resolution Last Treating Co mments Source Name Details Category Date Date Treatment Clinician Date Amnesia Amnesia Problem Active 2022-12-22 Me bibi (finding) (finding) 23:45:15 l Active Andrew Problem 12/22/2022 [facility] 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:45: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 Manny n (disorder) (disorder) Active Problem 12/22/2022 [facility] 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 23:45:15 l erosis erosis Andrew (disorder) (disorder) Active Problem 12/22/2022 [facility] Dizziness Dizziness Problem Active 2022-12-22 Memoria (finding) (finding) 23:45:15 l Active [place] Problem 12/22/2022 [facility] Gastrointe Gastroint Problem Active 2022-12-22 Memoria stinal estinal 23:45:15 l hemorrhage hemorrhage He rmann (disorder) (disorder) Active Problem 12/22/2022 [facility] Hyperlipid Hyperlipi Problem Active 2022-12-22 Memoria emia demia 23:45:15 l (disorder) (disorder) He rmann Active Problem 12/22/2022 [facility] 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 23:45:15 l (disorder) infarction He rmann (disorder) Active Problem 12/22/2022 [facility] 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 23:45:15 l artery artery Andrew occlusion occlusion (disorder) (disorder) Active Problem 12/22/2022 [facility] Syncope Syncope Problem Active 2022-12-22 Me moria (disorder) (disorder) 23:45:15 l Active Andrew Problem 12/22/2022 [facility] 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 (disorder) (disorder) Active Problem 12/22/2022 [facility] Dysarthria Dysarthri Problem Active 2022-12-22 Memoria (finding) a 23:45:15 l (finding) Andrew Active Problem 12/22/2022 [facility] Recurrent Recurrent Problem Active 2022-12-22 Memoria [place] 23:45:15 l (finding) (finding) [facility] tito Active Problem 12/22/2022 [facility] Allergies, Adverse Reactions, Alerts Allergy Allergy Status Severity Reaction(s) Onset Inactive Treating Comm ents Source Name Type Date Date Clinician rofecoxi DA Active MO EYE AND BODY HC A b SWELLING 07-21 [facility] 00:00: d 00 [facility] [place] pregabal DA Active MO WATERY EYES [facility] in 07-21 [facility] 00:00: d [facility] [place] fluticas DA Active MO HARD TO [facility] one BREATH 05 [facility] furoate 00:00: d 00 [facility] vilanter DA Active MO HARD TO H[facility] ol BREATH 07-21 [facility] 00:00: d 00 [facility] [place] Iodinate DA Active U UNKNOWN H[facility] d 07-21 [facility] Contrast 00:00: d Media [facility] Penicill DA Active SV INJECTION H[facility] ins SITE 07-21 [facility] SWELLING 00:00: d 00 [facility] [place] Sulfa DA Active MO RASH, EYE [facility] (Sulfona SWELLING 07-21 [facility] n mide 00:00: d Antibiot 00 Medical ics) Center Quinolon DA Active MO RASH, FACIAL HC A es SWELLING 07-21 [facility] 00:00: d 00 [facility] [place] FA Active SV VOMITING 2022-0 [facility] And 05 [facility] Derivati 00:00: d ves 00 [facility] doxycycl DA Active [place] ABDOMINAL [facility] ine PAIN 07-21 [facility] 00:00: d 00 [facility] [place] sulfapyr DA Active MO EYE LID H[facility] idine SWELLING 07-21 [facility] 00:00: d 00 [facility] clotrima DA Active MO UTI, RASH H[facility] zole 1-05 [facility] 00:00: d [facility] clarithr DA Active MN RASH, SORE H[facility] omycin TONGUE 07-21 [facility] 00:00: d [facility] nabumeto DA Active [place] ABDOMINAL [facility] ne PAIN 07-21 [facility] 00:00: d [facility] gabapent DA Active MO DIZZINESS,NA 2022- HC A in USEA,CONSTIP 07-21 Main mason ATION 00:00: d [facility] lansopra DA Active SV NAUSEA, HCA zole CHILLS 07-21 [facility] 00:00: d [facility] meperidi DA Active SV VOMITING H[facility] ne 07-21 [facility] 00:00: d [facility] fludroco DA Active SV SEVERE RASH, HC A rtisone SWELLING OF 07-21 Main mason EYES 00:00: d [facility] Iodinate DA Active U UNKNOWN HCA d 08-02 Clear Contrast 00:00: Wing Media 00 [facility] Sulfa DA Active MO RASH, EYE [facility] (Sulfona SWELLING 08-02 Clear mide 00:00: Wing Antibiot 00 [facility] [place] FA Active SV VOMITING H[facility] And 08-02 Clear Derivati 00:00: Wing ves [facility] doxycycl DA Active [place] ABDOMINAL [facility] ine PAIN 08-02 Clear 00:00: Wing [facility] clotrima DA Active MO UTI, RASH H[facility] zole 08-02 Clear 00:00: Wing 00 [facility] clarithr DA Active MN RASH, SORE HCA omycin TONGUE 08-02 Clear 00:00: Wing [facility] nabumeto DA Active [place] ABDOMINAL [facility] ne PAIN 08-02 Clear 00:00: Wing [facility] meperidi DA Active SV VOMITING 2021-0 HCA ne 08-02 Clear 00:00: Wing [facility] fludroco DA Active SV SEVERE RASH, 2021- HC A rtisone SWELLING OF -17 Lilian r EYES 00:00: Wing [facility] pregabal DA Active MO WATERY EYES H[facility] in 1-17 Clear 00:00: Wing [facility] gabapent DA Active MO DIZZINESS,NA HC A in USEA,CONSTIP 08-02 Lilian r ATION 00:00: Wing [facility] lansopra DA Active SV NAUSEA, HCA zole CHILLS 1-17 Clear 00:00: Wing [facility] Penicill DA Active SV INJECTION 2020-07 H[facility] ins SITE 0-22 Clear SWELLING 00:00: Wing [facility] Quinolon DA Active MO RASH, FACIAL 2020-07 HC A es SWELLING 0-22 Clear 00:00: Wing [facility] [place] FA Active MO VOMITING 2020-07 HCA And 0-22 Clear Derivati 00:00: Swan [facility] iodine DA Active U UNKNOWN 2020-07 HCA 0-22 Clear 00:00: Wing [facility] doxycycl DA Active MN ABDOMINAL 2020-07 HCA ine PAIN 0-22 Clear 00:00: Wing [facility] sulfapyr DA Active MO EYE LID 2020-07 H[facility] idine SWELLING 0-22 Clear 00:00: Wing [facility] clotrima DA Active MO UTI, RASH 2020-07 HCA zole 0-22 Clear 00:00: Wing [facility] clarithr DA Active MO RASH, SORE 2020-07 HCA omycin TONGUE 0-22 Clear 00:00: [facility] meperidi DA Active MN VOMITING 2020-07 HCA ne 0-22 Clear 00:00: Wing [facility] fludroco DA Active MO SEVERE RASH, 2020-07 HC A rtisone SWELLING OF 0-22 Lilian r EYES 00:00: Wing [facility] rofecoxi DA Active MO EYE AND BODY 2020-07 HC A b SWELLING 0-22 Clear 00:00: Wing [facility] pregabal DA Active MN WATERY EYES 2020-07 H[facility] in 0-22 Clear 00:00: Wing [facility] fluticas DA Active MO HARD TO 2020-07 H[facility] one BREATH 0-22 Clear furoate 00:00: Wing [facility] vilanter DA Active MO HARD TO 2020-07 HCA ol BREATH 0-22 Clear 00:00: Wing [facility] Penicill DA Active SV 2020-07 H[facility] ins 0-22 Clear 00:00: Wing [facility] Quinolon DA Active MO 2020-07 H[facility] es 0-22 Clear 00:00: Wing [facility] [place] FA Active MO 2020-07 [facility]CA And 0-22 Clear Derivati 00:00: Wing ves 00 [facility] iodine DA Active U 2020-07 HCA 0-22 Clear 00:00: Wing [facility] doxycycl DA Active MN 2020-07 H[facility] ine 0-22 Clear 00:00: Wing [facility] sulfapyr DA Active MO 2020-07 H[facility] idine 0-22 Clear 00:00: Wing [facility] clotrima DA Active MO 2020-07 HCA zole 0-22 Clear 00:00: Wing [facility] clarithr DA Active MO 2020-07 HCA omycin 0-22 Clear 00:00: Wing [facility] meperidi DA Active MN 2020-07 HCA ne 0-22 Clear 00:00: Wing [facility] fludroco DA Active MO 2020-07 HCA rtisone 0-22 Clear 00:00: Wing [facility] rofecoxi DA Active MO 2020-07 HCA b 0-22 Clear 00:00: Wing [facility] pregabal DA Active MN 2020-07 H[facility] in 0-22 Clear 00:00: Wing 00 [facility] fluticas DA Active MO 2020-07 H[facility] one 0-22 Clear furoate 00:00: Wing 00 [facility] vilanter DA Active MO 2020-07 H[facility] ol 0-22 Clear 00:00: Wing 00 [facility] PREICID DA Active MO ABD PAIN, 2020-07 H[facility] LIGHT 0-22 Clear HEADEDNESS, 00:00: Wing NAUSEA 00 [facility] RALAFEN DA Active MN ABDOMINAL 2020-07 H[facility] PAIN 0-22 Clear 00:00: Wing [facility] Penicill DA Active SV INJECTION 2020-07 HCA ins SITE 0-18 Clear SWELLING 00:00: Wing 00 [facility] iodine DA Active U UNKNOWN 2020-07 H[facility] 0-18 Clear 00:00: Wing 00 [facility] sulfapyr DA Active MO EYE LID 2020-07 H[facility] idine SWELLING 0-18 Clear 00:00: Wing 00 [facility] Penicill DA Active SV 2020-07 H[facility] ins 0-18 Clear 00:00: Wing 00 [facility] iodine DA Active U 2020-07 HCA 0-18 Clear 00:00: Wing 00 [facility] sulfapyr DA Active MO 2020-07 H[facility] idine 0-18 Clear 00:00: Wing [facility] Prevacid Propensi Active [facility] ty to 30 College adverse 00:00: of reaction 00 Medicin s to e drug Nabumeto Propensi Active [facility] ne ty to 08-15 College adverse 00:00: of reaction 00 Medicin s to e drug Sulfur Propensi Active [facility] ty to 08-15 College adverse 00:00: of reaction 00 Medicin s to e drug Citric Propensi Active [facility] Acid ty to 08-15 College Monohydr adverse 00:00: of ate reaction 00 Medicin s to e drug Demerol Propensi Active [facility] ty to 30 College adverse 00:00: of reaction 00 Medicin s to e drug Iodine Propensi Active [facility] ty to 25 College adverse 00:00: of [...] feeling Center s stomach Penicill Propensi Active [facility] [...] [facility]: Medical Antibiot 00 [place] ics) Rofecoxi Propensi Active Swelling [facility] ty to 04-10 [facility] adverse 00:00: Medical reaction 00 Center s Clarithr Propensi Active Rash [facility] omycin ty to 04-10 [facility] adverse 00:00: Medical reaction 00 Center s Fluticas Propensi Active Shortness Of [facility] one ty to Breath 04-10 [facility] Furoate- adverse 00:00: Medical Vilanter reaction 00 Center ol s [place]cor[place] Propensi Active Nausea And [facility] And [...] reaction 00 speech, Center s constipat ion Pregabal Propensi Active Watery [facility] in ty to 04-10 eyes and College adverse 00:00: warm of reaction 00 feeling Medicin s to stomach e drug Quinolon Propensi Active Swelling [facility] or es ty to 04-10 [place] adverse 00:00: of reaction 00 Medicin s to e drug Rofecoxi Propensi Active Swelling [facility] b ty to 04-10 [place] adverse 00:00: of reaction 00 Medicin s to e drug Sulfa Propensi Active Swelling [facility] Antibiot ty to 04-10 [place] ics adverse 00:00: of reaction 00 Medicin s to e drug Bioflavo Propensi Active Nausea And 2019 [facility] noids ty to Vomiting 04-10 [place] adverse 00:00: of reaction 00 Medicin s to e drug Clarithr Propensi Active Rash Chele omycin ty to 04-10 [place] adverse 00:00: of reaction 00 Medicin s to e drug Clotrima Propensi Active Rash uti Chele zole ty to 04-10 [place] adverse 00:00: of reaction 00 Medicin s to e drug Doxycycl Propensi Active Swelling And red [place] [facility] ine ty to 04-10 bumps on College adverse 00:00: tongue of reaction 00 Medicin s to e drug Doxycycl Propensi Active Nausea Only Abdomina l [facility] ine ty to 04-10 pain [place] Hyclate adverse 00:00: of reaction 00 Medicin s to e drug Fludroco Propensi Active Swelling [facility] or rtisone ty to 04-10 [place] adverse 00:00: of reaction 00 Medicin s to e drug FLUTICAS Allergy Active High Sob 2018- [facility] ONE [facility] FUROATE- 00:00: Medical VILANTER 00 Center OL ROFECOXI Allergy Active Swelling 2018- [facility] Center CLARITHR Allergy Active Low Rash 2019- [facility] OMYCIN [facility] 00:[facility]: Medical 00 Center CLOTRIMA Allergy Active Low Rash 2019- [facility] ZOLE [facility] 00:[facility]: Medical 00 Center FLUDROCO Allergy Active Low Swelling 2019-0 [facility] RTISONE [facility] 00:[facility]: Medical 00 Center PENICILL Allergy Active Low 2019- [facility] INS [facility] 00:00: Medical 00 Center QUINOLON Allergy Active Low Swelling 2019-0 [facility] ES [facility] 00:[facility]: Medical 00 Center Fluticas Propensi Active Shortness Of 2019-[address] [facility] [facility] one ty to Breath 25 [facility] Furoate- adverse 00:00: Medical Vilanter reaction 00 Center ol s [place] Propensi Active Nausea And 2019- [facility] And ty to Vomiting 04-10 [facility] Derivati adverse 00:00: Medical ves reaction 00 Center s SULFA Allergy Active Med Swelling 2018- [facility] (SULFONA [facility] MIDE 00:00: Medical ANTIBIOT 00 Center ICS) Penicill Propensi Active Mild Arm and [facility] ty to 04-10 [facility] adverse 00:00: bruise Medical reaction 00 Center s Quinolon Propensi Active Swelling, [facility] es ty to Rash 25 [facility] adverse 00:00: Medical reaction 00 Center s CITRUS Allergy Active N\\T\\V [facility] AND 925 [facility] DERIVATI 00:00: Medical VES 00 Center Sulfa Drug Active Swelling, [facility] (Sulfona Allergy Rash 25 [facility] mide 00:00: Medical Antibiot 00 Center ics) MEPERIDI Allergy Active N\\T\\V [facility] NE 25 [facility] 00:[facility]: Medical 00 Center DOXYCYCL Allergy Active Nausea [facility] INE 9-25 [facility] 00:00: Medical 00 Center GABAPENT Allergy Active Other [facility] IN 925 [facility] 00:00: Medical 00 Center IODINE Allergy Active [facility] AND [facility] IODIDE 00:00: Medical CONTAINI 00 Center NG PRODUCTS PREGABAL Allergy Active Other [facility] IN 9-25 [facility] 00:00: Medical 00 Center DOXYCYCL Allergy Active Nausea [facility] INE 9-25 [facility] HYCLATE 00:00: Medical 00 Center Fluticas Propensi Active Shortness Of [facility] one ty to Breath 04-10 College Furoate adverse 00:00: of reaction 00 Medicin s to e drug Gabapent Propensi Active Dizzy, [facility] in ty to 04-10 nausea, College adverse 00:00: slurred of reaction 00 speech, Medicin s to constipat e drug ion penicill penicill Active Memori a in in l [place] Sulfur Sulfur Active Memoria l Andrew iodine iodine Active Memoria l [place] Social History Social Habit Start Date Stop Date Quantity Comments Source Gender identity [facility] Sexual orientation [facility] History SDOH [facility] Alcohol Std Drinks Medica l Center History SDOH [facility] Alcohol Binge Medical Ila ter History of tobacco Current smoker [facility] use of Medicine History SDOH [facility] Alcohol Comment Medical C enter Alcohol intake 2019-04-15 2019-04-[address] [facility] 00:[facility]00 00:00:00 non-drinker of Medical Ce nter alcohol (finding) History SDOH 2019-04-10 2019-04-[address] [facility] Alcohol Frequency 00:00:00 00:00:00 [facility] Tobacco use and 2019-04-10 2019-04-[address] Yumiko kes exposure 00:00:00 00:00:00 tobacco non-user [facility] Sex Assigned At [birth year] [facility] 00:00:00 00:00:00 Hospital Smoking Status Start Date Stop Date Source Tobacco smoking [facility] consumption unknown Tobacco smoking status [facility] Former smoker 2019-08-15 00:00:00 2019-08-15 [facility] ge of 00:00:00 Medicine Medications Ordered Filled Start Stop Current Ordering Indication Dosage Frequency Signature Comments Components Source Medication Medication Date Date Medication? Clinician (SIG) Name Name Blanca 250 Yes 250 mg = 1 M emoria mg oral 6-03 tab, PO, l tablet 00:37: BID, # 60 Manny n 00 tab, 3 Refill(s), 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, Height, 71.591, kg, 08/25/22 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, Weight Namenda 10 2022-0 Yes 10 mg = 1 Me moria mg oral 2-09 tab, PO, l tablet 18:05: BID, # 60 Manny n 00 tab, 4 Refill(s), Pharmacy: [facility], 162.56, cm, 08/25/22 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, Height, 71.591, kg, 08/25/22 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, Weight Namenda 10 2022-0 Yes 10 mg = 1 Me moria mg oral 2-09 tab, PO, l tablet 18:05: BID, # 60 Manny n 00 tab, 4 Refill(s), Pharmacy: [facility], 162.56, cm, 08/25/22 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, Height, 71.591, kg, 08/25/22 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, Weight amLODIPine 2022-0 Yes PO, Daily, M emoria 2-09 5 mg l 17:54: daily, 0 [place] 00 Refill(s) amLODIPine 2022-0 Yes PO, Daily, M emoria 2-09 5 mg l 17:54: daily, 0 [place] 00 Refill(s) amLODIPine 2022-0 Yes PO, Daily, M emoria 2-09 5 mg l 17:54: daily, 0 Andrew 00 Refill(s) Namenda 5 2021-07 Yes 5 mg = 1 Aman omaira mg oral 1-18 tab, PO, l tablet 18:02: BID, # 60 Manny n 00 tab, 3 Refill(s), Pharmacy: [facility], 162.56, cm, 06/03/22 11:36: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, Height, 69.545, kg, 06/03/22 11:36: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, Weight Namenda 5 2021-07 Yes 5 mg = 1 Aman omaira mg oral 1-18 tab, PO, l tablet 18:02: BID, # 60 Manny n 00 tab, 3 Refill(s), Pharmacy: [facility], 162.56, cm, 06/03/22 11:36: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, Height, 69.545, kg, 06/03/22 11:36: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, Weight Namenda 2021-07 Yes 5 mg = 1 Aman omaira mg oral 1-18 tab, PO, l tablet 18:02: BID, # 60 Manny n 00 tab, 3 Refill(s), Pharmacy: [facility], 162.56, cm, 06/03/22 11:36: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, Height, 69.545, kg, 06/03/22 11:36: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, Weight Namenda 2021-07 Yes 5 mg = 1 Aman omaira mg oral 1-18 tab, PO, l tablet 18:02: BID, # 60 Manny n 00 tab, 3 Refill(s), Pharmacy: [facility], 162.56, cm, 06/03/22 11:36: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, Height, 69.545, kg, 06/03/22 11:36: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, Weight Namend 2021-07 Yes 5 mg = 1 Aman omaira mg oral 1-18 tab, PO, l tablet 18:02: BID, # 60 Manny n 00 tab, 3 Refill(s), Pharmacy: [facility], 162.56, cm, 06/03/22 11:36: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, Height, 69.545, kg, 06/03/22 11:36: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, Weight Namend 2021-07 Yes 5 mg = 1 Aman omaira mg oral 1-18 tab, PO, l tablet 18:02: BID, # 60 Manny n 00 tab, 3 Refill(s), Pharmacy: [facility], 162.56, cm, 06/03/22 11:36: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, Height, 69.545, kg, 06/03/22 11:36: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, Weight Namenda 2021-07 Yes 5 mg = 1 Aman omaira mg oral 1-18 tab, PO, l tablet 18:02: BID, # 60 Manny n 00 tab, 3 Refill(s), Pharmacy: [facility], 162.56, cm, 06/03/22 11:36: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, Height, 69.545, kg, 06/03/22 11:36: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, Weight Namenda 5 2022-1 Yes 5 mg = 1 Aman omaira mg oral 1-18 tab, PO, l tablet 18:02: BID, # 60 Manny n 00 tab, 3 Refill(s), Pharmacy: [facility], 162.56, cm, 06/03/22 11:36: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, Height, 69.545, kg, 06/03/22 11:36: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, Weight Namenda 5 2021-07 Yes 5 mg = 1 Aman omaira mg oral 1-18 tab, PO, l tablet 18:02: BID, # 60 Manny n 00 tab, 3 Refill(s), Pharmacy: [facility], 162.56, cm, 06/03/22 11:36: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, Height, 69.545, kg, 06/03/22 11:36: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, Weight Namenda 5 2021-07 Yes 5 mg = 1 Aman omaira mg oral 1-18 tab, PO, l tablet 18:02: BID, # 60 Manny n 00 tab, 3 Refill(s), Pharmacy: [facility], 162.56, cm, 06/03/22 11:36: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, Height, 69.545, kg, 06/03/22 11:36: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, Weight famotidine 2021-07 Yes 20 mg = 1 Me moria 20 mg oral 1-18 tab, PO, l tablet 17:49: BID, 0 [place] 00 Refill(s) Vitamin K2 2021-07 Yes 100 Memoria 1-18 microgram l 17:49: =, PO, [place] 00 Daily, 0 Refill(s) Cosamin DS 2021-07 Yes 0 Memoria oral tablet 1-18 Refill(s) l 17:49: Andrew 00 famotidine 2021-07 Yes 20 mg = 1 Me moria 20 mg oral 1-18 tab, PO, l tablet 17:49: BID, 0 [place] 00 Refill(s) Vitamin K2 2021-07 Yes 100 Memoria 1-18 microgram l 17:49: =, PO, [place] 00 Daily, 0 Refill(s) Cosamin DS 2021-07 Yes 0 Memoria oral tablet 1-18 Refill(s) l 17:49: Andrew 00 famotidine 2022-1 Yes 20 mg = 1 Me moria 20 mg oral 1-18 tab, PO, l tablet 17:49: BID, 0 [place] 00 Refill(s) Vitamin K2 2021-07 Yes 100 Memoria 1-18 microgram l 17:49: =, PO, [place] 00 Daily, 0 Refill(s) Cosamin DS 2021-07 Yes 0 Memoria oral tablet 1-18 Refill(s) l 17:49: Andrew 00 famotidine 2021-07 Yes 20 mg = 1 Me moria 20 mg oral 1-18 tab, PO, l tablet 17:49: BID, 0 [place] 00 Refill(s) Vitamin K2 2021-07 Yes 100 Memoria 1-18 microgram l 17:49: =, PO, [place] 00 Daily, 0 Refill(s) Cosamin DS 2021-07 [...] Memoria oral tablet 1-18 Refill(s) l 17:49: [place] 00 famotidine 2021-07 Yes 20 mg = 1 Me moria 20 mg oral 1-18 tab, PO, l tablet 17:49: BID, 0 Andrew 00 Refill(s) Vitamin K2 2021-07 Yes 100 Memoria 1-18 microgram l 17:49: =, PO, [place] 00 Daily, 0 Refill(s) Cosamin DS 2021-07 Yes 0 Memoria oral tablet 1-18 Refill(s) l 17:49: Andrew 00 famotidine 2021-07 Yes 20 mg = 1 Me moria 20 mg oral 1-18 tab, PO, l tablet 17:49: BID, 0 Andrew 00 Refill(s) Vitamin K2 2021-07 Yes 100 Memoria 1-18 microgram l 17:49: =, PO, [place] 00 Daily, 0 Refill(s) Cosamin DS 2021-07 Yes 0 Memoria oral tablet 1-18 Refill(s) l 17:49: [place] 00 famotidine 2021-07 Yes 20 mg = 1 Me moria 20 mg oral 1-18 tab, PO, l tablet 17:49: BID, 0 Andrew 00 Refill(s) Vitamin K2 2021-07 Yes 100 Memoria 1-18 microgram l 17:49: =, PO, [place] 00 Daily, 0 Refill(s) Cosamin DS 2021-07 [...] Memoria oral tablet 1-18 Refill(s) l 17:49: [place] 00 famotidine 2021-07 Yes 20 mg = 1 Me moria 20 mg oral 1-18 tab, PO, l tablet 17:49: BID, 0 Andrew 00 Refill(s) Vitamin K2 2021-07 Yes 100 Memoria 1-18 microgram l 17:49: =, PO, [place] 00 Daily, 0 Refill(s) Cosamin DS 2021-07 Yes 0 Memoria oral tablet 1-18 Refill(s) l 17:49: Andrew 00 Docusate 2020-07 Yes 100 mg = 1 Mem oria Sodium 100 0-29 cap, PO, l MG Oral 16:18: BID, 0 [place] Capsule 00 Refill(s) docusate 2020-07 Yes 100 mg = 1 Mem oria sodium 100 0-29 cap, PO, l mg oral 16:18: BID, 0 [place] capsule 00 Refill(s) Docusate 2020-07 Yes 100 [...] PO, l MG Oral 16:18: BID, 0 [place] Capsule 00 Refill(s) docusate 2020-07 Yes 100 [...] PO, l mg oral 16:18: BID, 0 [place] capsule 00 Refill(s) Docusate 2020-07 Yes 100 mg = 1 Mem oria Sodium 100 0-29 cap, PO, l MG Oral 16:18: BID, 0 [place] Capsule 00 Refill(s) docusate 2020-07 Yes 100 mg = 1 Mem oria sodium 100 0-29 cap, PO, l mg oral 16:18: BID, 0 [place] capsule 00 Refill(s) Docusate 2020-07 Yes 100 mg = 1 Mem oria Sodium 100 0-29 cap, PO, l MG Oral 16:18: BID, 0 [place] Capsule 00 Refill(s) docusate 2020-07 Yes 100 mg = 1 Mem oria sodium 100 0-29 cap, PO, l mg oral 16:18: BID, 0 [place] capsule 00 Refill(s) docusate 2020-07 Yes 100 mg = 1 Mem oria sodium 100 0-29 cap, PO, l mg oral 16:18: BID, 0 Andrew capsule 00 Refill(s) Docusate 2020-07 Yes 100 mg = 1 Mem oria Sodium 100 0-29 cap, PO, l MG Oral 16:18: BID, 0 [place] Capsule 00 Refill(s) Docusate 2020-07 Yes 100 mg = 1 Mem oria Sodium 100 0-29 cap, PO, l MG Oral 16:18: BID, 0 Andrew Capsule 00 Refill(s) docusate 2020-07 Yes 100 mg = 1 Mem oria sodium 100 0-29 cap, PO, l mg oral 16:18: BID, 0 Andrew capsule 00 Refill(s) Magnesium 2020-07 Yes PO, [...] moria glycinate 0-29 0 l 16:17: Refill(s) [place] CoQ10 2020-07 Yes 300 mg, Memoria 0-29 [...] moria glycinate 0-29 0 l 16:17: Refill(s) Magnesium 2020-07 Yes PO, Daily, Me [...] tab, PO, l tablet 16:16: Daily, # [place] 30 tab, 0 Refill(s) potassium 2020-07 Yes 10 mEq = 1 Me moria chloride 10 0-29 cap, PO, l mEq oral 16:16: BID, # 180 Her sarmiento capsule, 00 cap, 0 extended Refill(s) release clopidogrel 2020-07 Yes 75 mg = 1 M emoria 75 mg oral 0-29 tab, PO, l tablet 16:16: Daily, # [place] 30 tab, 0 Refill(s) potassium 2020-07 Yes [...] tab, PO, l tablet 16:16: Daily, # [place] 00 30 tab, 0 Refill(s) clopidogrel 2020-07 Yes 75 mg = 1 M emoria 75 mg oral 0-29 tab, PO, l tablet 16:16: Daily, # Andrew 00 30 tab, 0 Refill(s) potassium 2020-07 Yes 10 mEq = 1 Me moria chloride 10 0-29 cap, PO, l mEq oral 16:16: BID, # 180 Her sarmiento capsule, 00 cap, 0 extended Refill(s) release potassium 2020-07 Yes 10 mEq = 1 Me moria chloride 10 0-29 cap, PO, l mEq oral 16:16: BID, # 180 Her sarmiento capsule, 00 cap, 0 extended Refill(s) release clopidogrel 2020-07 Yes 75 mg = 1 M emoria 75 mg oral 0-29 tab, PO, l tablet 16:16: Daily, # [place] 00 30 tab, 0 Refill(s) pantoprazol Yes 0 Memori a e 40 mg 7-29 Refill(s) l oral 16:06: [place] enteric 00 coated tablet pantoprazol Yes 0 Memori a e 40 mg 7-29 Refill(s) l oral 16:06: [facility] enteric 00 coated tablet pantoprazol 2020-0 Yes 0 Memori a e 40 mg 7-29 Refill(s) l oral 16:06: [place] enteric 00 coated tablet pantoprazol 2020-0 Yes 0 Memori a e 40 mg 7-29 Refill(s) l oral 16:06: [place] enteric 00 coated tablet pantoprazol 2021-0 Yes 0 Memori a e 40 mg 7-29 Refill(s) l oral 16:06: [place] enteric 00 coated tablet pantoprazol Yes 0 [...] 40 mg 7-29 Refill(s) l oral 16:06: [place] enteric 00 coated tablet pantoprazol Yes 0 Memori a e 40 mg 7-29 Refill(s) l oral 16:06: [place] enteric 00 coated tablet pantoprazol Yes 0 Memori a e 40 mg 7-29 Refill(s) l oral 16:06: [facility] enteric 00 coated tablet aspirin 0 Yes 81 mg, PO, Aman [...] 4-01 Daily, 0 l 16:45: Refill(s) aspirin 2021-0 Yes 81 mg, PO, Aman omaira 4-01 [...] omaira 4-01 Daily, 0 l 16:45: Refill(s) Promethazin Yes 5 mL, PO, M emoria e DM oral 4-01 Q6H, PRN l syrup 16:44: for cough, Manny n 00 # 120 mL, 0 Refill(s) Ventolin Yes 2 puff, Memori a HFA 4-01 INHALATION l 16:44: , QID, 0 [place] 00 Refill(s) albuterol 2020-0 Yes 2.5 mg = 3 Me moria 0.083% 4-01 mL, NEB, l inhalation 16:44: Q6H, 0 Shari nn solution 00 Refill(s) Albuterol 2020-0 Yes 2.5 mg = 3 Me moria 0.83 MG/ML 4-01 mL, NEB, l Inhalant 16:44: Q6H, 0 [place] Solution 00 Refill(s) Albuterol 2020-0 Yes 2.5 [...] 4-01 INHALATION l 16:44: , QID, 0 [place] 00 Refill(s) albuterol 2020-0 Yes 2.5 mg = 3 Me moria 0.083% 4-01 mL, NEB, l inhalation 16:44: Q6H, 0 Shari nn solution 00 Refill(s) Albuterol 2020-0 Yes 2.5 mg = 3 Me moria 0.83 MG/ML 4-01 mL, NEB, l Inhalant 16:44: Q6H, 0 [place] Solution 00 Refill(s) Promethazin 2020-0 Yes 5 [...] 0 Shari nn solution 00 Refill(s) Promethazin 0 Yes 5 mL, PO, M emoria e DM oral 4-01 Q6H, PRN l syrup 16:44: for cough, Manny n 00 # 120 mL, 0 Refill(s) Ventolin 2020-0 Yes 2 puff, Memori a HFA 4-01 INHALATION l 16:44: , QID, 0 Andrew 00 Refill(s) Albuterol Yes 2.5 mg = 3 Me moria 0.83 MG/ML 4-01 mL, NEB, l Inhalant 16:44: Q6H, 0 [place] Solution 00 Refill(s) Promethazin 0 Yes 5 mL, PO, M emoria e DM oral 4- Q6H, PRN l syrup 16:44: for cough, Manny n 00 # 120 mL, 0 Refill(s) Ventolin 0 Yes 2 puff, Memori a HFA 4-01 INHALATION l 16:44: , QID, 0 Andrew 00 Refill(s) albuterol Yes 2.5 mg = 3 Me moria 0.083% 4-01 mL, NEB, l inhalation 16:44: Q6H, 0 Shari nn solution 00 Refill(s) Albuterol Yes 2.5 mg = 3 Me moria 0.83 MG/ML 4-01 mL, NEB, l Inhalant 16:44: Q6H, 0 [place] Solution 00 Refill(s) Albuterol Yes 2.5 mg = 3 Me moria 0.83 MG/ML 4-01 mL, NEB, l Inhalant 16:44: Q6H, 0 [place] Solution 00 Refill(s) Promethazin 0 Yes 5 mL, PO, M emoria e DM oral 4-01 Q6H, PRN l syrup 16:44: for cough, Manny n 00 # 120 mL, 0 Refill(s) Ventolin 2020-0 Yes 2 puff, Memori a HFA 4-01 INHALATION l 16:44: , QID, 0 [place] 00 Refill(s) albuterol Yes 2.5 mg = 3 Me moria 0.083% 4-01 mL, NEB, l inhalation 16:44: Q6H, 0 Shari nn solution 00 Refill(s) Albuterol 2020-0 Yes 2.5 mg = 3 Me moria 0.83 MG/ML 4-01 mL, NEB, l Inhalant 16:44: Q6H, 0 [place] Solution 00 Refill(s) Promethazin 2020-0 Yes 5 [...] 2020-0 Yes 2 puff, Memori a HFA -01 INHALATION l 16:44: , QID, 0 Andrew 00 Refill(s) albuterol 2020-0 Yes 2.5 mg = 3 Me moria 0.083% 4-01 mL, NEB, l inhalation 16:44: Q6H, 0 Shari nn solution 00 Refill(s) Albuterol 2020-0 Yes 2.5 mg = 3 Me moria 0.83 MG/ML 4-01 mL, NEB, l Inhalant 16:44: Q6H, 0 [place] Solution 00 Refill(s) Promethazin 2020-0 Yes 5 mL, PO, M emoria e DM oral 4-01 Q6H, PRN l syrup 16:44: for cough, Manny n 00 # 120 mL, 0 Refill(s) Ventolin 0 Yes 2 puff, Memori a HFA 4-01 INHALATION l 16:44: , QID, 0 [place] 00 Refill(s) albuterol Yes 2.5 mg = 3 Me moria 0.083% 4-01 mL, NEB, l inhalation 16:44: Q6H, 0 Shari nn solution 00 Refill(s) Promethazin Yes 5 mL, PO, M emoria e DM oral 4 Q6H, PRN l syrup 16:44: for cough, Manny n 00 # 120 mL, 0 Refill(s) Ventolin Yes 2 puff, Memori a HFA 4 INHALATION l 16:44: , QID, 0 Andrew 00 Refill(s) albuterol Yes 2.5 mg = 3 Me moria 0.083% 4- mL, NEB, l inhalation 16:44: Q6H, 0 Shari nn solution 00 Refill(s) Albuterol Yes 2.5 mg = 3 Me moria 0.83 MG/ML 4-01 mL, NEB, l Inhalant 16:44: Q6H, 0 [place] Solution 00 Refill(s) Albuterol Yes 2.5 mg = 3 Me moria 0.83 MG/ML 4-01 mL, NEB, l Inhalant 16:44: Q6H, 0 [place] Solution 00 Refill(s) Promethazin Yes 5 mL, PO, M emoria e DM oral 4 Q6H, PRN l syrup 16:44: for cough, Manny n 00 # 120 mL, 0 Refill(s) Ventolin Yes 2 puff, Memori a HFA 4-01 INHALATION l 16:44: , QID, 0 [place] 00 Refill(s) albuterol Yes 2.5 mg = 3 Me moria 0.083% 4-01 mL, NEB, l inhalation 16:44: Q6H, 0 Shari nn solution 00 Refill(s) promethazin 2021-0 Yes 0 Memori a e 4-01 Refill(s) l 16:43: [place] Promethazin 202-0 Yes 0 Memori a e 4-01 Refill(s) l 16:43: [place] Promethazin 2020-0 Yes 0 Memori a e 4-01 Refill(s) l 16:43: [place] promethazin 2020-0 Yes 0 Memori a e 4-01 Refill(s) l 16:43: [place] Promethazin 2020-0 Yes 0 Memori a e 4-01 Refill(s) l 16:43: [place] 00 promethazin 2020-0 Yes 0 Memori a e 4-01 Refill(s) l 16:43: [place] Promethazin 2020-0 Yes 0 Memori a e 4-01 Refill(s) l 16:43: [place] 00 promethazin 2020-0 Yes 0 Memori a e 4-01 Refill(s) l 16:43: [place] 00 Promethazin 2020-0 Yes 0 Memori a e 4-01 Refill(s) l 16:43: [place] 00 Promethazin 2020-0 Yes 0 Memori a e 4-01 Refill(s) l 16:43: [place] 00 promethazin 2020-0 Yes 0 Memori a e 4-01 Refill(s) l 16:43: [place] 00 Promethazin 2020-0 Yes 0 Memori a e 4-01 Refill(s) l 16:43: [place] 00 promethazin 2020-0 Yes 0 Memori a e 4-01 Refill(s) l 16:43: [place] 00 Promethazin 202-0 Yes 0 Memori a e 4-01 Refill(s) l 16:43: [place] promethazin 2020-0 Yes 0 Memori a e 4-01 Refill(s) l 16:43: [place] 00 Promethazin 202-0 Yes 0 Memori a e 4-01 Refill(s) l 16:43: [place] 00 promethazin 2020-0 Yes 0 Memori a e 4-01 Refill(s) l 16:43: [place] 00 promethazin 2020-0 Yes 0 Memori a e 4-01 Refill(s) l 16:43: Promethazin 2020-0 Yes 0 Memori a e 4-01 Refill(s) l 16:43: [place] 00 Promethazin 2020-0 Yes 0 Memori a [...] Memoria Vaginal 4-01 Refill(s) l 16:42: atorvastati 2020-0 Yes 40 mg, PO, Memoria n 4-01 Bedtime, 0 l 16:41: Refill(s) atorvastati 2020-0 Yes 40 mg, PO, Memoria n 4-01 Bedtime, 0 l 16:41: Refill(s) atorvastati 2021-0 Yes 40 mg, PO, Memoria n 10-15 [...] atorvastati Yes 40 mg, PO, Memoria n 4- Bedtime, 0 l 16:41: Refill(s) [place] 00 atorvastati 0 Yes 40 mg, PO, Memoria n 4 Bedtime, 0 l 16:41: Refill(s) [place] 00 atorvastati Yes 40 mg, PO, Memoria n 4 Bedtime, 0 l 16:41: Refill(s) atorvastati Yes 40 mg, PO, Memoria n 4 Bedtime, 0 l 16:41: Refill(s) atorvastati Yes 40 mg, PO, Memoria n 4 Bedtime, 0 l 16:41: Refill(s) levocetiriz Yes See Memori a ine 4-01 Instructio l 16:40: ns, Andrew 00 1-2caps TID, 0 Refill(s) levocetiriz Yes See Memori a ine 4-01 Instructio l 16:40: ns, [place] 00 1-2caps TID, 0 Refill(s) levocetiriz Yes See Memori a ine 4-01 Instructio l 16:40: ns, Andrew 00 1-2caps TID, 0 Refill(s) levocetiriz 0 Yes See Memori a ine 4-01 Instructio l 16:40: ns, [place] 00 1-2caps TID, 0 Refill(s) levocetiriz 0 Yes See Memori a ine 4-01 Instructio l 16:40: ns, [place] 00 1-2caps TID, 0 Refill(s) levocetiriz 0 Yes See Memori a ine 4-01 Instructio l 16:40: ns, [place] 00 1-2caps TID, 0 Refill(s) levocetiriz 0 Yes See Memori a ine 4-01 Instructio l 16:40: ns, [place] 00 1-2caps TID, 0 Refill(s) levocetiriz 0 Yes See Memori a ine 4-01 Instructio [...] a ine - Instructio l 16:40: ns, [place] 00 1-2caps TID, 0 Refill(s) levocetiriz 2020-0 Yes See Memori a ine - Instructio l 16:40: ns, [place] 00 1-2caps TID, 0 Refill(s) levocetiriz 2020-0 Yes See Memori a ine 4- Instructio l 16:40: ns, [place] 00 1-2caps TID, 0 Refill(s) levocetiriz 2020-0 Yes See Memori a ine 4- Instructio l 16:40: ns, [place] 00 1-2caps TID, 0 Refill(s) levocetiriz 2020-0 Yes See Memori a ine 4- Instructio l 16:40: ns, [place] 00 1-2caps TID, 0 Refill(s) levocetiriz 2020-0 [...] Q-M and l 16:39: Th, # 15 [place] 00 tab, 0 Refill(s) Metolazone 2020-0 Yes 5 mg, PO, Me moria 4- Q-M and l 16:39: Th, # 15 [place] 00 tab, 0 Refill(s) Metolazone 2020-0 Yes 5 mg, PO, Me moria 4- Q-M and l 16:39: Th, # 15 Andrew 00 tab, 0 Refill(s) Metolazone 2020-0 Yes 5 mg, PO, Me moria 4- Q-M and l 16:39: Th, # 15 Andrew 00 tab, 0 Refill(s) Metolazone 2020-0 Yes 5 mg, PO, Me moria 4-01 Q-M and l 16:39: Th, # 15 [place] 00 tab, 0 Refill(s) Metolazone 2020-0 Yes [...] Q-M and l 16:39: Th, # 15 [place] 00 tab, 0 Refill(s) Metolazone 2020-0 Yes 5 mg, PO, Me moria 4-01 Q-M and l 16:39: Th, # 15 [place] 00 tab, 0 Refill(s) Metolazone 2020-0 Yes 5 mg, PO, Me moria 4-01 Q-M and l 16:39: Th, # 15 Andrew 00 tab, 0 Refill(s) spironolact 2020-0 Yes 50 mg, PO, Memoria one 10-15 Daily, # l 16:38: 60 tab, 0 [place] 00 Refill(s) Spironolact 2020-0 Yes 50 mg, PO, Memoria one 10-15 Daily, # l 16:38: 60 tab, 0 Andrew 00 Refill(s) Spironolact 2020-0 Yes 50 mg, PO, Memoria one 10-15 Daily, # l 16:38: 60 tab, 0 [place] 00 Refill(s) spironolact 2020-0 Yes 50 mg, PO, Memoria one 10-15 Daily, # l 16:38: 60 tab, 0 [place] 00 Refill(s) Spironolact 2020-0 Yes 50 mg, PO, Memoria one 10-15 Daily, # l 16:38: 60 tab, 0 [place] 00 Refill(s) spironolact 2020-0 Yes 50 mg, PO, Memoria one 10-15 Daily, # l 16:38: 60 tab, 0 [place] 00 Refill(s) Spironolact 2020-0 Yes 50 mg, [...] Daily, # l 16:38: 60 tab, 0 [place] 00 Refill(s) Spironolact 2020-0 Yes 50 mg, PO, Memoria one 4- Daily, # l 16:38: 60 tab, 0 [place] 00 Refill(s) spironolact 2020-0 Yes 50 mg, PO, Memoria one - Daily, # l 16:38: 60 tab, 0 [place] 00 Refill(s) Spironolact 2020-0 Yes 50 mg, PO, Memoria one 10-15 Daily, # l 16:38: 60 tab, 0 [place] 00 Refill(s) spironolact 2020-0 Yes 50 mg, PO, Memoria one 10-15 Daily, # l 16:38: 60 tab, 0 [place] 00 Refill(s) Spironolact 2020-0 Yes 50 mg, PO, Memoria one 10-15 Daily, # l 16:38: 60 tab, 0 [place] 00 Refill(s) spironolact 2020-0 Yes 50 mg, PO, Memoria one 10-15 Daily, # l 16:38: 60 tab, 0 [place] 00 Refill(s) spironolact 2020-0 Yes 50 mg, PO, Memoria one 10-15 Daily, # l 16:38: 60 tab, 0 [place] 00 Refill(s) Spironolact 2020-0 Yes 50 mg, [...] [facility] ylor -chondroiti 1-30 Tabs by Tracey ge n 500-400 20:35: mouth. of MG tablet 19 Medicin e Cholecalcif 2019-0 Yes 25mg Take 25 mg Chele lisset (D3 1-30 by mouth. Colleg e VITAMIN OR) 20:34: of 48 Medicin e Docusate 2019-0 Yes Take by [facility] Sodium 100 1-30 mouth. College MG TABS 20:33: of 54 Medicin e MISC 2020-0 Yes Take by [facility] NATURAL 1-30 mouth. [place] PRODUCTS OR 20:33: of 54 Medicin e albuterol 2020-0 Yes 2{puff} Inhale 2 [facility] (VENTOLIN 1-30 Puffs by Raine e HFA) 108 20:31: mouth as of (90 base) 45 needed for Medi kennedy mcg/act Wheezing. e inhaler ALBUTEROL 2020-0 Yes Inhale by [place] [facility] SULFATE 1-30 mouth. [place] INNOSE 20:31: 0.083 NEB of 45 Nephron - Medicin use 1 vial e in nebulizer 4 times a day as needed promethazin 2020-0 Yes 6.25mg Take 6.25 Chele e 1-30 mg by [place] (PHENERGAN) 20:27: mouth as of 6.25 MG/5ML 52 needed. Medic in syrup e potassium 2020-0 Yes 20meq Take 20 [facility] or chloride 1-30 mEq by [place] (KDUR) 10 20:25: mouth 3 of MEQ tablet 17 times Medicin daily. e Levocetiriz 2020-0 Yes 5mg Take 5 mg [facility] ine 1-30 by mouth. [place] Dihydrochlo 20:25: of ride 5 MG 17 Medicin TABS e MAGNESIUM 2020-0 Yes 240mg Take 240 [place] [facility] OR 1-30 mg by [place] 20:25: mouth two of 17 times Medicin daily. e metolazone 2020-0 Yes 5mg Take 5 mg [facility] (ZAROXOLYN) 1-30 by mouth Donte ege 5 MG tablet 20:22: every of 11 Monday and Medicin . e atorvastati 2020-0 Yes 40mg Take 1 Tab [facility] n (LIPITOR) 1-30 by mouth Donte ege 40 MG 00:00: daily. of tablet 00 Medicin e PREMARIN 2018-[address] 0.65 Ba ylor vaginal 2-24 mg [place] cream 00:00: vaginally of 00 2 times Medicin weekly. e spironolact 2018-07 Yes TAKE 1 [facility] or one 1-25 TABLET BY [place] (ALDACTONE) 00:00: MOUTH of 50 MG 00 [...] linnea 48 Center potassium 2018-07 Yes 10meq [id number] Take [address] [facility] chloride 0-09 [id number] mEq by Shoaib es (KLOR-CON) 19:51: 3D [...] [place] 48 Center potassium 2018-07 Yes 10meq Q.[id number] Take [address] [facility] chloride 0-09 [id number] mEq by Shoaib es (KLOR-CON) 19:51: 3D [...] [place] 48 Center potassium 2018-07 Yes 10meq Q.[id number] Take [address] [facility] [address] chloride 0-09 [id number] mEq by Shoaib es (KLOR-CON) 19:51: 3D [...] [place] 48 Center potassium 2018-07 Yes 10meq Q.[id number] Take [address] [facility] [address] chloride 0-09 [id number] mEq by Shoaib es (KLOR-CON) 19:51: 3D mouth 3 Medi linnea 10 MEQ CR 48 (three) Center tablet times daily. levocetiriz 2018-07 Yes 5mg QD Take [address] in[facility] (XYZAL) 0-09 by mouth Luke s 5 MG tablet 19:51: every Medic al 48 evening. Center promethazin 2018-07 Yes 6.25mg Take 6.[address] [facility] e 0-09 mg by [place] (PHENERGAN) 19:51: mouth 4 Med ical 6.25 [...] [place] 48 Center potassium 2018-07 Yes 10meq Q.[id number] Take [address] [facility] [address] chloride 0-09 [id number] mEq by Shoaib es (KLOR-CON) 19:51: 3D [...] [place] 48 Center potassium 2018-07 Yes 10meq Q.[id number] Take [address] [facility] [address] chloride 0-09 [id number] mEq by Shoaib es (KLOR-CON) 19:51: 3D [...] [place] 48 Center potassium 2018-07 Yes 10meq Q.[id number] Take [address] [facility] [address] chloride 0-09 [id number] mEq by Shoaib es (KLOR-CON) 19:51: 3D [...] [facility] one 0-09 mg by [place] (ALDACTONE) 19:51: mouth Medic al 100 MG 48 daily. Center tablet metOLazone 2018-07 Yes 5mg QD Take [address] (ZAROXOLYN) 0-09 by mouth Luke s 5 MG tablet 19:51: daily. Medi linnea 48 Center potassium 2018-07 Yes 10meq Q.[id number] Take [address] [facility] [address] chloride 0-09 [id number] mEq by Shoaib es (KLOR-CON) 19:51: 3D [...] [place] 48 Center potassium 2018-07 Yes 10meq Q.[id number] Take [address] [facility] [address] chloride 0-09 [id number] mEq by Shoaib es (KLOR-CON) 19:51: 3D [...] [place] 48 Center potassium 2018-07 Yes 10meq Q.[id number] Take [address] [facility] [address] chloride 0-09 [id number] mEq by Shoaib es (KLOR-CON) 19:51: 3D [...] [place] 48 Center potassium 2018-07 Yes 10meq Q.[id number] Take [address] [address] chloride 0-09 [id number] mEq by Shoaib wilkins (KLOR-CON) 19:51: 3D [...] daily as needed for Nausea. aspirin EC 2018-07- No 81mg Take 81 mg Chele 81 MG TBEC 0-06 10-06 by mouth. Col lege 00:00: 04:59 of 00 :00 Medicin e Coenzyme 2018-07- No 100mg Take 100 [place] [facility] Q-10 100 MG 0-05 10-05 mg by Colleg e CAPS 00:00: 04:59 mouth of 00 :00 daily. Medicin e Vital Signs Vital Name Observation Time Observation Value Comments Source Systolic blood 2019-08-15 19:54:00 128 mm[Hg] [facility] pressure Medicine Diastolic blood 2019-08-15 19:54:00 57 mm[Hg] [facility] Medicine Heart rate 2019-08-15 19:54:00 67 /min [facility] Body height 2019-08-15 19:54:00 165.1 cm [facility] Body weight 2019-08-15 19:54:00 66.679 kg [facility] BMI 2019-08-15 19:54:00 24.46 kg/m2 [facility] Height 2022-11-28 19:43:00 5 [ft_i] [facility] Weight 2022-11-28 19:43:00 [facility] [place] BMI Calculated 2022-11-28 19:43:00 Memori al [place] Systolic (mm Hg) 2022-11-28 19:43:00 Aman rial [place] Diastolic (mm Hg) 2022-11-28 19:43:00 Mem orial [place] Heart Rate 2022-11-28 19:43:00 [facility] Systolic (mm Hg) 2022-08-25 17:48:00 Aman rial [place] Diastolic (mm Hg) 2022-08-25 17:48:00 Mem orial [place] Heart Rate 2022-08-25 17:48:00 [facility] Height 2022-08-25 17:48:00 5 [ft_i] [facility] [place] Weight 2022-08-25 17:48:00 [facility] BMI Calculated 2022-08-25 17:48:00 Mem[facility] al [place] Systolic (mm Hg) 2022-06-03 17:27:00 Aman rial [place] Diastolic (mm Hg) 2022-06-03 17:27:00 Mem orial [place] Heart Rate 2022-06-03 17:27:00 [facility] Height 2022-06-03 17:27:00 5 [ft_i] [facility] [place] Weight 2022-06-03 17:27:00 [facility] [place] BMI Calculated 2022-06-03 17:27:00 [facility] [place] Respitory Rate 2022-04-11 15:12:00 [facility] [place] Height 2022-04-11 15:12:00 162.56 cm [facility] [place] Weight 2022-04-11 15:12:00 [facility] BMI Calculated 2022-04-11 15:12:00 [facility] [place] Systolic (mm Hg) 2022-04-11 15:12:00 Aman rial [place] Diastolic (mm Hg) 2022-04-11 15:12:00 Mem orial [place] Heart Rate 2022-04-11 15:12:00 [facility] Systolic (mm Hg) 2021-10-07 15:45:00 Aman rial [place] Diastolic (mm Hg) 2021-10-07 15:45:00 Mem orial [place] Heart Rate 2021-10-07 15:45:00 [facility] [place] Respitory Rate 2021-10-07 15:45:00 Memori al [place] Height 2021-10-07 15:45:00 160.02 cm [facility] [place] Weight 2021-10-07 15:45:00 [facility] [place] BMI Calculated 2021-10-07 15:45:00 [facility] [place] Systolic (mm Hg) 2021-05-14 15:45:00 Aman rial [place] Diastolic (mm Hg) 2021-05-14 15:45:00 Mem orial [place] Heart Rate 2021-05-14 15:45:00 [facility] Respitory Rate 2021-05-14 15:45:00 [facility] [place] Height 2021-05-14 15:45:00 160.02 cm [facility] [place] Weight 2021-05-14 15:45:00 [facility] BMI Calculated 2021-05-14 15:45:00 [facility] [place] Systolic (mm Hg) 2021-02-11 15:35:00 Aman rial [place] Diastolic (mm Hg) 2021-02-11 15:35:00 Mem o[facility] [place] Heart Rate 2021-02-11 15:35:00 [facility] Respitory Rate 2021-02-11 15:35:00 [facility] [place] Height 2021-02-11 15:35:00 162.56 cm [facility] [place] Weight 2021-02-11 15:35:00 [facility] [place] BMI Calculated 2021-02-11 15:35:00 Mem[facility] al [place] Systolic (mm Hg) 2020-11-12 15:12:00 Aman rial [place] Diastolic (mm Hg) 2020-11-12 15:12:00 Mem orial [place] Heart Rate 2020-11-12 15:12:00 [facility] Respitory Rate 2020-11-12 15:12:00 [facility] [place] Weight 2020-11-12 15:12:00 [facility] Systolic (mm Hg) 2020-10-15 16:26:00 Amna rial [place] Diastolic (mm Hg) 2020-10-15 16:26:00 Mem orial [place] Heart Rate 2020-10-15 16:26:00 [facility] [place] Respitory Rate 2020-10-15 16:26:00 [facility] [place] Height 2020-10-15 16:26:00 160.02 cm [facility] Weight 2020-10-15 16:26:00 [facility] [place] BMI Calculated 2020-10-15 16:26:00 Mem[facility] Procedures Procedure Date / Time Performing Clinician Source Performed [id number] 2022-07-21 00:00:00 CHAAB.01 [facility] [id number] 2022-01-13 00:00:00 CHAAB.01 [facility] [id number] 2022-01-12 00:00:00 CHAAB.01 [facility] [id number] 2022-01-12 00:00:00 CHAAB.01 [facility] [id number] 2022-01-12 00:00:00 RASSA [facility] [id number] 2022-01-12 00:00:00 RASSA [facility] [id number] 2022-01-12 00:00:00 RASSA [facility] [id number] 2021-08-04 00:00:00 RASSA [facility] [id number] 2021-08-04 00:00:00 RASSA [facility] [id number] 2021-08-04 00:00:00 MICHAEL [facility] [id number] 2021-05-09 00:00:00 SOPHIA [facility] CT HEART SCAN PLUS W 2021-03-03 15:31:21 [facility] PHYSICIAN ORDER US VASCULAR SCREENING 2021-03-03 15:13:36 [facility] HEART SCAN PLUS Carotid [facility] endarterectomy<sup>1</sup> Cholecystectomy [facility] Breast biopsy and related [facility] [place] procedures Appendectomy [facility] Hysterectomy [facility] Plan of Care Planned Activity Planned Date Details Comments Source Future Scheduled 2022-12-24 INFLUENZA VACCINE [facility] Test 01:25:09 [code = INFLUENZA VACCINE] Future Scheduled 2022-12-24 COVID-19 VACCINE (#1) [facility] Test 01:25:09 [code = COVID-19 VACCINE (#1)] Future Scheduled 2022-12-24 Hepatitis C screening [facility] Test 01:25:09 (procedure) [code = 269197631] Future Scheduled 2022-12-24 SHINGLES VACCINES (1 [facility] Test 01:25:09 of 2) [code = SHINGLES VACCINES (1 of 2)] Future Scheduled 2022-12-24 65+ PNEUMOCOCCAL [facility] Test 01:25:09 VACCINE (1 - PCV) [code = 65+ PNEUMOCOCCAL VACCINE (1 - PCV)] Future Scheduled 2022-11-21 COVID-19 VACCINE (#1) [facility] Test 12:06:57 [code = COVID-19 VACCINE (#1)] Future Scheduled 2022-11-21 Hepatitis C screening [facility] Test 12:06:57 (procedure) [code = [id number]] Future Scheduled 2022-11-21 COLONOSCOPY SCREENING [facility] Test 12:06:57 [code = COLONOSCOPY SCREENING] Future Scheduled 2022-11-21 SHINGLES VACCINES (1 [facility] Test 12:06:57 of 2) [code = SHINGLES VACCINES (1 of 2)] Future Scheduled 2022-11-21 65+ PNEUMOCOCCAL [facility] Test 12:06:57 VACCINE (1 - PCV) [code = 65+ PNEUMOCOCCAL VACCINE (1 - PCV)] Future Scheduled 2022-11-21 [facility] 12:06:57 [code = INFLUENZA VACCINE] Future Scheduled 2022-07-31 [facility] 12:44:36 of 2) [code = SHINGLES VACCINES (1 of 2)] Future Scheduled 2022-07-31 65+ [facility] 12:44:36 VACCINE (1 - PCV) [code = 65+ PNEUMOCOCCAL VACCINE (1 - PCV)] Future Scheduled 2022-07-31 [facility] 12:44:36 [code = INFLUENZA VACCINE] Future Scheduled 2022-07-31 COVID-19 [facility] (#[facility] [code = COVID-19 VACCINE (#1)] Future Scheduled 2022-07-31 [facility] 12:44:36 (procedure) [code = [id number]] Future Scheduled 2022-07-31 [facility]ING [facility] 12:44:36 [code = COLONOSCOPY SCREENING] Future Scheduled 2022-07-31 SHINGLES VACCINES (1 Met [facility] Test 12:44:36 of 2) [...] Future Scheduled 2022-07-31 [facility] 12:44:36 (procedure) [code = [id number]] Future Scheduled 2022-07-31 [facility]ING [facility] 12:44:36 [code = COLONOSCOPY SCREENING] Future Scheduled 2022-07-31 SHINGLES VACCINES (1 [facility] 12:44:36 of 2) [code = SHINGLES VACCINES (1 of 2)] Future Scheduled 2022-07-31 65+ [facility]AL [facility] 12:44:36 VACCINE (1 - PCV) [code = 65+ PNEUMOCOCCAL VACCINE (1 - PCV)] Future Scheduled 2022-07-31 [facility]INE [facility] 12:44:36 [code = INFLUENZA VACCINE] Future Scheduled 2022-07-31 [facility] [code = COVID-19 VACCINE (#1)] Future Scheduled 2022-07-31 [facility] 12:44:36 (procedure) [code = [id number]] Future Scheduled 2022-07-31 COLONOSCOPY SCREENING [facility] Test 12:44:36 [code = COLONOSCOPY SCREENING] Future Scheduled 2022-07-21 COVID-19 VACCINE (#1) [facility] Test 13:14:09 [code = COVID-19 VACCINE (#1)] Future Scheduled 2022-07-21 Hepatitis C screening [facility] Test 13:14:09 (procedure) [code = [id number]] Future Scheduled 2022-07-21 COLONOSCOPY SCREENING [facility] Test 13:14:09 [code = COLONOSCOPY SCREENING] Future Scheduled 2022-07-21 SHINGLES VACCINES (1 [facility] Test 13:14:09 of 2) [code = SHINGLES VACCINES (1 of 2)] Future Scheduled 2022-07-21 65+ P[facility]UMOCOCCAL [facility] Test 13:14:09 VACCINE (1 - PCV) [code = 65+ PNEUMOCOCCAL VACCINE (1 - PCV)] Future Scheduled 2022-07-21 INFLUENZA VACCINE [facility] Test 13:14:09 [code = INFLUENZA VACCINE] Future Scheduled 2022-07-21 COVID-19 VACCINE (#1) [facility] Test 13:14:09 [code = COVID-19 VACCINE (#1)] Future Scheduled 2022-07-21 [facility]atitis C screening [facility] Test 13:14:09 (procedure) [code = [id number]] Future Scheduled 2022-07-21 COLONOSCOPY SCREENING [facility] Test 13:14:09 [code = COLONOSCOPY SCREENING] Future Scheduled 2022-07-21 SHINGLES VACCINES (1 [facility] Test 13:14:09 of 2) [code = SHINGLES VACCINES (1 of 2)] Future Scheduled 2022-07-21 65+ [facility]OCOCCAL [facility] Test 13:14:09 VACCINE (1 - PCV) [code = 65+ PNEUMOCOCCAL VACCINE (1 - PCV)] Future Scheduled 2022-07-21 INFLUENZA VACCINE [facility] Test 13:14:09 [code = INFLUENZA VACCINE] Future Scheduled 2022-07-21 COVID-19 VACCINE (#1) [facility] Test 13:14:09 [code = COVID-19 VACCINE (#1)] Future Scheduled 2022-07-21 [facility] Test 13:14:09 (procedure) [code = 608777278] Future Scheduled 2022-07-21 [facility]ONOSCOPY SCREENING [facility] Test 13:14:09 [code = COLONOSCOPY SCREENING] Future Scheduled 2022-07-21 SHINGLES VACCINES (1 [facility] Test 13:14:09 of 2) [code = SHINGLES VACCINES (1 of 2)] Future Scheduled 2022-07-21 65+ P[facility]UMOCOCCAL [facility] Test 13:14:09 VACCINE (1 - PCV) [code = 65+ PNEUMOCOCCAL VACCINE (1 - PCV)] Future Scheduled 2022-07-21 INFLUENZA VACCINE [facility] Test 13:14:09 [code = INFLUENZA VACCINE] Future Scheduled 2022-07-03 COVID-19 VACCINE (#1) [facility] Test 09:16:22 [code = COVID-19 VACCINE (#1)] Future Scheduled 2022-07-03 Hepatitis C screening [facility] Test 09:16:22 (procedure) [code = 773577490] Future Scheduled 2022-07-03 COLONOSCOPY SCREENING [facility] Test 09:16:22 [code = COLONOSCOPY SCREENING] Future Scheduled 2022-07-03 SHINGLES VACCINES (1 [facility] Test 09:16:22 of 2) [code = SHINGLES VACCINES (1 of 2)] Future Scheduled 2022-07-03 65+ PNEUMOCOCCAL [facility] Test 09:16:22 VACCINE (1 - PCV) [code = 65+ PNEUMOCOCCAL VACCINE (1 - PCV)] Future Scheduled 2022-07-03 INFLUENZA VACCINE [facility] Test 09:16:22 [code = INFLUENZA VACCINE] Future Scheduled 2022-07-03 COVID-19 VACCINE (#1) [facility] Test 09:16:22 [code = COVID-19 VACCINE (#1)] Future Scheduled 2022-07-03 Hepatitis C screening [facility] Test 09:16:22 (procedure) [code = 982981927] Future Scheduled 2022-07-03 COLONOSCOPY SCREENING [facility] Test 09:16:22 [code = COLONOSCOPY SCREENING] Future Scheduled 2022-07-03 SHINGLES VACCINES (1 [facility] Test 09:16:22 of 2) [...] 00:00:00 (1 of 1 - Medical Center BOCA37_Uqqadiv PCV13) [code = PNEUMOCOCCAL 65+ YRS (1 of 1 - QVJH15_Cfppkio PCV13)] Future Scheduled 1995-12-29 SHINGLES VACCINES (1 [...] Medica l Center colon (procedure) [code = [id number]] Future Scheduled COVID-19 VACCINE (1) [facility] Test [code = COVID-19 VACCINE (1)] Future Scheduled Hepatitis C screening Me [facility] Test (procedure) [code = 487709357] Future Scheduled BREAST CANCER [facility] Test SCREENING [code = BREAST CANCER SCREENING] Future Scheduled COLONOSCOPY SCREENING [facility] Test [code = COLONOSCOPY SCREENING] Future Scheduled SHINGLES VACCINES (#1) [facility] Test [code = SHINGLES VACCINES (#1)] Future Scheduled 65+ PNEUMOCOCCAL [facility] Test VACCINE (1 of 1 - PPSV23) [code = 65+ PNEUMOCOCCAL VACCINE (1 of 1 - PPSV23)] Future Scheduled INFLUENZA VACCINE [facility] Test [code = INFLUENZA VACCINE] Future Scheduled COLON CANCER [facility] of Test SCREENING: COLONOSCOPY Medic ine [code = COLON CANCER SCREENING: COLONOSCOPY] Future Scheduled MAMMOGRAM ANNUAL [code B [facility] of Test = MAMMOGRAM ANNUAL] Medicine Future Scheduled TETANUS SHOT (ADULT) [facility] of Test [code = TETANUS SHOT Medicin e (ADULT)] Future Scheduled HEPATITIS C SCREENING [facility] of Test [code = HEPATITIS C Medicine SCREENING] Future Scheduled FALL SCREEN [code = [facility] of Test FALL SCREEN] Medicine Future Scheduled OSTEOPOROSIS SCREENING [facility] Test [code = OSTEOPOROSIS Medicin e SCREENING] Future Scheduled PNEUMOVAX >=65 [facility] of Test (PPSV23) [code = Medicine PNEUMOVAX >=65 (PPSV23)] Future Scheduled PREVNAR >= 65 (PCV13) [facility] of Test [code = PREVNAR >= 65 Medici ne (PCV13)] Future Scheduled FLU VACCINE > 6 MONTHS [facility] of Test [code = FLU VACCINE > Medici ne 6 MONTHS] Future Scheduled MEDICARE IPPE (WELCOME [facility] Test TO MEDICARE) [code = Medicin e MEDICARE IPPE (WELCOME TO MEDICARE)] Encounters Start End Encounter Admission Attending Care Care Encounter Source Date/Time Date/Time Type Type Clinicians Facility Department ID 2023-01-11 2023-01-11 Outpatient MHIE MHIE [id number] [facility]oria 13:15:00 13:15:00 15 todd Morales 2022-12-23 2022-12-23 Outpatient MHIE MHIE [id number] [facility] 11:00:00 11:00:00 12 todd Morales 2022-12-23 2022-12-23 Outpatient MHIE MHIE [id number] [facility] 11:00:00 11:00:00 12 todd Morales 2022-12-20 2022-12-20 Ambulatory MHIE MNA [id number] [facility] 15:30:00 15:30:00 Pre-Reg Neurology 08 todd Canoann 2022-12-20 2022-12-20 Outpatient MHIE MHIE [id number] [facility] 10:30:00 10:30:00 08 [place] 2022-12-20 2022-12-20 Outpatient MHIE MHIE [id number] [facility]oria 10:30:00 10:30:00 08 [place] 2022-12-20 2022-12-20 Outpatient DANIA DerasSCHER MHMISCHER [id number] 10:30:00 10:30:00 [place] 08 Cesar 2022-12-15 2022-12-16 Outpatient MHIE MNA [id number] [facility]oria 18:00:00 04:59:59 Neurology 14 todd Andrés Morales 2022-12-15 2022-12-15 Outpatient DANIA DerasSCHER MHMISCHER [id number] 13:00:00 23:59:59 [place] 14 Cesar 2022-12-15 2022-12-15 Outpatient MHIE MHIE [id number] Memoria 13:00:00 13:00:00 14 todd Andrew 2022-11-28 2022-11-29 Outpatient MHIE MNA [id number] [facility]oria 19:30:00 04:59:59 Neurology 13 todd Andrés Morales 2022-11-28 2022-11-28 Outpatient PATTI DerasMISCHER MHMISCHER [id number] 14:30:00 23:59:59 [place] 13 Cesar 2022-11-28 2022-11-28 Outpatient MHIE MHIE [id number] [facility]oria 14:30:00 14:30:00 13 todd Morales 2022-08-25 2022-08-26 Outpatient MHIE MNA [id number] [facility]oria 17:45:00 05:59:59 Neurology 11 todd Morales 2022-08-25 2022-08-26 Outpatient MHIE MNA [id number] [facility]oria 17:45:00 05:59:59 Neurology 11 todd Morales 2022-08-25 2022-08-25 Outpatient PATTI DerasMISCHER MHMISCHER [id number] 11:45:00 23:59:59 [place] 11 Cesar 2022-08-25 2022-08-25 Outpatient MHIE MHIE [id number] Memoria 11:45:00 11:45:00 11 [place] 2022-08-03 2022-08-03 Ambulatory MHIE MNA [id number] [facility]oria 17:15:00 17:15:00 Pre-Reg Neurology 10 todd Canoann 2022-08-03 2022-08-03 Ambulatory MHIE MNA [id number] [facility]oria 17:15:00 17:15:00 Pre-Reg Neurology 10 todd Canoann 2022-08-03 2022-08-03 Outpatient MHIE MHIE [id number] [facility]oria 11:15:00 11:15:00 10 [place] 2022-08-03 2022-08-03 Outpatient DANIA DerasSCHER MHMISCHER [id number] 11:15:00 11:15:00 [place] 10 Cesar 2022-07-27 2022-07-27 Outpatient EILEEN Willard-Her HCAMN MUSN [id number] [facility] 16:22:00 16:22:00 [facility] 2022-07-21 2022-07-22 Inpatient JOSE BowmanCL INTE [id number] [facility] 05:12:00 11:48:[address] [place] [address] 2022-06-03 2022-06-04 Outpatient MHIE MNA [id number] [facility]oria 17:15:00 05:59:59 Neurology 09 l Andrés Morales 2022-06-03 2022-06-04 Outpatient MHIE MNA [id number] [facility]oria 17:15:00 05:59:59 Neurology 09 l Andrés Morales 2022-06-03 2022-06-03 [id number] 11:15:00 23:59:59 [place] 09 Cesar 2022-06-03 2022-06-03 Outpatient MHIE MHIE [id number] Memoria 11:15:00 11:15:00 09 todd Morales 2022-04-12 2022-04-12 Ambulatory nullFlavo MNA [id number] [facility]oria 15:00:00 15:00:00 Pre-Reg r Neurology 06 l Andrés Morales 2022-04-12 2022-04-12 Ambulatory nullFlavo MNA [id number] Memoria 15:00:00 15:00:00 Pre-Reg r Neurology 06 l Andrés Morales 2022-04-12 2022-04-12 Outpatient MHIE MHIE [id number] [facility]oria 10:00:00 10:00:00 06 todd Morales 2022-04-12 2022-04-12 Outpatient [facility] [id number] 10:00:00 10:00:00 [place] Sharri Guerrero 2022-04-11 2022-04-12 Outpatient nullFlavo MNA [id number] Memoria 15:00:00 04:59:59 r Neurology 07 l Andrés Morales 2022-04-11 2022-04-12 Outpatient nullFlavo MNA [id number] Memoria 15:00:00 04:59:59 r Neurology 07 l Andrés Morales 2022-04-11 2022-04-11 Outpatient [facility] [id number] 10:00:00 23:59:59 [place] 07 Cesar 2022-04-11 2022-04-11 Outpatient MHIE MHIE [id number] Memoria 10:00:00 10:00:00 07 todd Morales 2022-01-12 2022-01-14 Inpatient LORI Esparza INTE [id number] [facility] 18:19:00 15:56:00 Rj 45 [facility] 2022-01-12 2022-01-14 Inpatient LORI Esparza INTE [id number] [facility] 18:19:00 15:56:00 Rj [id number] [facility] 2021-11-03 2021-11-03 Inpatient LORI Russell OUTD [id number] [facility] 04:56:00 04:56:00 Devon 31 [facility] 2021-10-07 2021-10-08 Outpatient nullFlavo MNA [id number] [facility] 15:30:00 04:59:59 r Neurology 05 l Mchenry Andrew 2021-10-07 2021-10-08 Outpatient nullFlavo MNA [id number] [facility]oria 15:30:00 04:59:59 r Neurology 05 l Andrés Morales 2021-10-07 2021-10-07 Outpatient CAMILA Deras MHMISCHER [id number] 10:30:00 23:59:59 [place] Reyes Guerrero 2021-10-07 2021-10-07 Outpatient MHIE MHIE [id number] Memoria 10:30:00 10:30:00 05 todd Morales 2021-08-04 2021-08-06 Inpatient LORI Russell TELE [id number] [facility] 21:05:00 12:24:00 Devon 94 [facility] 2021-05-14 2021-05-15 Outpatient nullFlavo MNA [id number] Memoria 15:30:00 04:59:59 r Neurology 04 l Andrés Morales 2021-05-14 2021-05-15 Outpatient nullFlavo MNA [id number] [facility] 15:30:00 04:59:59 r Neurology 04 l Andrés Morales 2021-05-14 2021-05-14 Outpatient CAMILA Deras MHMISCHJESUS [id number] 10:30:00 23:59:59 [place] Gavi Guerrero 2021-05-14 2021-05-14 Outpatient MHIE MHIE [id number] Memoria 10:30:00 10:30:00 04 todd Morales 2021-05-07 2021-05-12 Inpatient NATE Bishop, HCACL MEDI.01 [id number] [facility] 22:34:00 14:15:00 Christopher 86 Cl [facility] 2021-05-03 2021-05-05 Inpatient EILEEN Whatley, HCACL OUTD [id number] [facility] 10:30:00 05:25:00 Devon 50 [facility] 2021-03-03 2021-03-03 [facility], 1.2.840.1 [id number] Methodi 09:20:50 23:59:00 Encounter Garth [address]347.1.[address] 3.430.2.7 Hospit a .3.770211 l .8 2021-03-03 2021-03-03 [facility], 1.2.840.1 [id number] Methodi 09:15:00 09:19:00 Encounter Garth [address]168.1.[address] 3.430.2.7 Hospit a .3.125651 l .8 2021-03-03 2021-03-03 Travel 1.2.840.1 1.2.337.119 [id number] Methodi 00:00:00 00:00:[address] 3.430.2.7 0.2.7.3.698 Ho spita .3.441775 084.8 l .8 2021-02-11 2021-02-12 Outpatient nullFlavo MNA [id number] Memoria 15:15:00 04:59:59 r Neurology 03 l Andrés Morales 2021-02-11 2021-02-12 Outpatient nullFlavo MNA [id number] Memoria 15:15:00 04:59:59 r Neurology 03 l Andrés Morales 2021-02-11 2021-02-11 Outpatient CAMILA DerasSCHJESUS [id number] 10:15:00 23:59:59 [place] Guerrero 2021-02-11 2021-02-11 Outpatient BERLIN SLADE [id number] Memoria 10:15:00 10:15:00 03 l Andrew 2021-02-08 2021-02-08 Travel 1.2.840.1 1.2.159.607 [id number] Methodi 00:00:00 00:00:[address] 3.430.2.7 0.2.7.3.698 Ho spita .3.445376 084.8 l .8 2021-02-03 2021-02-03 Transcribe Sandeep, 1.2.840.1 [id number] Methodi 00:00:00 00:00:[address]arth [address]1.[address] 3.430.2.7 Hospit a .3.003849 l .8 2020-11-12 2020-11-13 Outpatient nullFlavo MNA [id number] Memoria 15:00:00 04:59:59 r Neurology 02 l Mchenry [place] 2020-11-12 2020-11-13 Outpatient nullFlavo MNA [id number] Memoria 15:00:00 04:59:59 r Neurology 02 l Mchenrymadhu Canoann 2020-11-12 2020-11-12 Outpatient August[facility] [id number] 10:00:00 23:59:59 [place] 02 Cesar 2020-11-12 2020-11-12 Outpatient MHIE MHIE [id number] Memoria 10:00:00 10:00:00 02 todd [place] 2020-11-03 2020-11-04 Outpatient nullFlavo MNA [id number] Memoria 18:00:00 04:59:59 r Neurology 01 l Mchenrymadhu Canoann 2020-11-03 2020-11-04 Outpatient nullFlavo MNA [id number] Memoria 18:00:00 04:59:59 r Neurology 01 l Andrés Morales 2020-11-03 2020-11-03 Outpatient PATTI DerasMNSCHER MHMISCHER [id number] 13:00:00 23:59:59 [place] 01 Cesar 2020-11-03 2020-11-03 Outpatient MHIE MHIE [id number] Memoria 13:00:00 13:00:00 01 l Andrew 2020-10-15 2020-10-16 Outpatient nullFlavo MNA [id number] Memoria 16:30:00 04:59:59 r Neurology 00 l Andrés Morales 2020-10-15 2020-10-16 Outpatient nullFlavo MNA [id number] Memoria 16:30:00 04:59:59 r Neurology 00 l Andrés Canoann 2020-10-15 2020-10-15 Outpatient [facility] [id number] 11:30:00 23:59:59 [place] 00 Cesar 2019-08-15 2019-08-15 Office LOGAN Osorio 1.2.840.[id number] [place] [address] 13:47:41 15:50:19 Visit Michael AMBULATOR 350.1.13.21 College Y 0.2.7.2.686 of 223.4594041 [facility] 800 e 2019-04-24 2019-05-03 Inpatient 3 KARLO DURAN CVA [id number] [employer] 20:39:00 11:00:00 [facility] [address] [facility] [place] Results Test Description Test Time Test Comments Results Result [facility] e Comments - US HEAD AND NECK 2022-07-27 17:00:00 [facility] [place]: MAR[place] CAMP[place] : 1945 Sex: F FAX: Yumiko Charles [phone] Clarinda: St: REG Name: MARLA CAMPOS [facility] : 1945 Age/S: 76/F [address] [facility] Unit #: [id number] [place]: [place]: [place] [address] Acct: [id number] Dis Date: Status: REG CLI PHONE #: [phone] Exam Date: 07/27/2022 1651 FAX #: [phone] Reason: LOCALIZED SWELLING,MASS,LUMP/HE MATOMA EXAMS: CPT CODE: [id number] US HEAD AND NECK 89058 EXAM: - US HEAD AND NECK LOCATION: [...] CC: Hallie Charles NP Technologist: ANDRIA HOSKINS [facility] Date/Time/By: 07/27/2022 (1700) : By: [email or web address] PAGE 1 Signed Report FAX: Yumiko Charles [phone] Clarinda: St: REG Name: MARLA CAMPOS [facility] : 1945 Age/S: 76/F [address] [facility] Unit #: [id number] Loc: [place], [place] Phys: Willard-Grabiel,Hallie [employer]OLLER [address] Acct: [id number] Dis Date: Status: REG CLI PHONE #: [phone] Exam Date: 07/27/2022 1651 FAX #: [phone] Reason: LOCALIZED SWELLING,MASS,LUMP/HE MATOMA EXAMS: CPT CODE: [id number] HEAD AND NECK 93871 (Continued) Orig Print D/T: S: 07/27/2022 (1703) PAGE 2 Signed Report SURGICAL 2022-07-22 15:10:00 Test Item Value Reference Range Interpretation Comme nts SURGICAL RUN (test DATE: 07/22/22 [facility] PAGE 1 RUN TIME: 1510 Specimen Inquiry RUN USER: INTERFACE code = PATIENT SR) : MARLA CAMPOS ACCT #: [id number] LOC: VERONICA #: [id number] AGE/SX: 76/F ROOM: [facility] RE07/21/22REG DR: Milagros Gold : [birth year] BED: 1 DIS: 07/22/22 STATUS: DIS IN TLOC: SPEC #: [id number] RECD: [id number] STATUS: ZONIA CAMARA #: [id number] DONTE: 07/21/22- SUBM DR: Robert Gold MD ENTE RED: 07/21/22 SP TYPE: SURGICAL OTHR DR: Garth Hopkins MD, Anas MDORDERED: 8830 4, ANATOMIC SPEC COPIES TO: Robert Gold MD [address] [place] [address]. [address] [place] [id number] Garth Hopkins MD [address] [place] [address] Chi Valencia MD [address] [place] [address] PROCEDURES: 883 04 (07/21/22) TISSUES: A. CAROTID PLAQUE WITH DECAL CLINICAL HISTORY SAME FINAL DIAGNOSIS Carotid plaque, left, endarterectomy: Atherosclerotic plaque with calcification. GROSS DESCRIP TION Received in formalin labeled "left carotid artery "are 2 segments of lehman-yellowatherosclerotic plaques , up to 3.4 cm in length, 0.8 cm in diameter, with representativesections submi tted (A). Technical component performed at [facility] [place] [address], [place] [address] Unless gross only, the diagnosis is based upon microscopic examination. CONTINUED ON NE XT PAGE RUN DATE: 07/22/22 [place] - LAB PAGE 2 RUN TIME: 1510 Specimen Inquiry RUN USER: INTERFACE SPEC #: [id number] PATIENT: MARLA CAMPOS #[id number] (Continued) ---- GROSS DESCRIPTION (Cont inued) Immunohistochemistry: This test was developed and its performance characteristicsd etermined by this laboratory. It has not been approved nor does it need approvalby the [place] FDA. Appro priate positive and negative controls are reviewed and judgedto be acceptable. This laboratory is certified under the Clinical Laboratory ImprovementAmendments (CLIA-88) as qualified to pe rform high complexity clinical laboratory testing. CLINICAL INFORMATION OCCLUSION AND STENOSIS OF LEFT CAROTID ARTERY Signed SIGNATURE ON FILE Arnold Evans 07/22/22 1510 END OF REPORT CBC W/AUTO [id number] 06:49:00 Test Item Value Reference Range Interpretation [...] (test code NO = MDIFF) BASIC METABOLIC [id number] 06:18:00 Test Item Value Reference Range Interpretation [...] 8.8 mg/dL 8.0-10.5 N CA) BASIC METABOLIC [id number] 09:59:00 Test Item Value Reference Range Interpretation [...] = 8.7 mg/dL 8.0-10.5 N CA) HGB [id number] 09:51:00 Test Item Value Reference Range Interpretation Comments HEMOGLOBIN (test code = HGB) 10.9 g/dL 11.0-15.0 L HEMATOCRIT (test code = HCT) 33.4 % 33.0-45.0 N [id number] 08:02:00 Test Item Value Reference Range Interpretation Comments ACT-ISTAT (test code 287 SEC 74-137 H Perform ed by certified = ACTI) 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 UA RFLX MICR CULT IF [id number] 13:20:00 Test Item Value Reference Range Interpretation [...] culture: Flank PainSpecimen Description: CLEAN CATCHCOMPREHENSIVE METABOLIC [id number] 13:13:00 Test Item Value Reference Range Interpretation [...] the recommended for nadir for GFRby the Nat nal Kidney Foundati on for Adults.The GFR [...] = HGBA1C%) 5.2 %A1C 4.8-6.0 N PROTHROMBIN [id number] 12:55:00 Test Item Value Reference Range Interpretation [...] (to prevent recurrent infar ct). THROMBOPLASTIN TIME [id number] 12:55:00 Test Item Value Reference Range Interpretation Comments THROMBOPLASTIN TIME 26.4 Seconds 25.0-39.5 N Therape utic Range: PARTIAL (test code = 50.4 - 88.3 Seconds PTT) Effective 10/30/2018 CBC W/AUTO [id number] 12:45:00 Test Item Value Reference Range Interpretation [...] code NO = MDIFF) - DUP EXTRACRANIAL [id number] 00:00:00 [facility] : 1945 Sex: F Name: MARLA CAMPOS : 1945 Age/S: 76 / F [address] [place] [address] Blvd Unit #: [id number] Loc: [place] [address] Phys: Robert Gold MD Acct: [id number] Dis Date: Status: PRE INPHONE #: [phone] Exam Date: 07/19/2022 1358 FAX #: [phone] Reason: 165.22. EXAMS: CPT CODE: [id number] DUP EXTRACRANIAL DIGNA 67463 PROCEDURE INFORMATION: Exam: US Duplex Bilateral ExtracranialArteries, [...] M.D. PAGE 1 Signed Report (CONTINUED) Name: MARLA CAMPOS [facility] Wing : 1945 Age/S: 76 / F [address] [place] [address] Unit #: [id number] Loc: [place] [address] Phys: Robert Gold MD Acct: [id number] Dis Date: Status: PRE IN PHONE #: [phone] Exam Date: 07/19/2022 1358 FAX #: [phone] Reason: 165.22. EXAMS: CPT CODE: [id number] DUP EXTRACRANIAL DIGNA 32231 (Continued) CC: Robert Gold MD Technologist: Janice Meneses RDMS() Trnscb Date/Time: 07/19/2022 (1602) [email or web address] Orig Print D/T: S: 07/19/2022 (1602) Probe: PAGE 2 Signed Report- XR CHEST 2 [id number] 00:00:00 [facility] 1945 Sex: F FAX:Robert Watt [phone] Clarinda: GC St: PRE Name: MARLA CAMPOS [facility] Ruth Wing : 1945 Age/S: 76/F [address] [place] [address] Unit #: [id number] Loc: [place] [address] Phys: Robert Gold MD Acct: [id number] Dis Date: Status: PRE IN PHONE #: [phone] Exam Date: 07/19/2022 1317 FAX #: Reason: PREOP EXAMS: CPT CODE: [id number] XR CHEST 2 V 81658 PROCEDURE INFORMATION: Exam: XR Chest Exam date [...] Martinez M.D. CC: Robert Gold MD Technologist: RT Rhianna(Vahid) Trnscrd Date/Time/By: 07/19/2022 (1552) : By: [email or web address] PAGE 1 Signed ReportSURGICAL 2022-01-18 15:32:00 Test Item Value Reference Range Interpretation Comments SURGICAL (test code = SR) R UN DATE: 01/18/22 [place] - LAB PAGE 1 RUN TIME: 1532 Specimen Inquiry RUN USER: INTERFACE P ATIENT: MARLA CAMPOS LOC: MARY U #: [id number] AGE/SX: 76/F ROOM: [facility] RE01/12/22REG DR: Rj Evans DO : [birth year] BED: 1 DIS: 01/14/22 STATUS: DIS IN TLOC: SPEC #: [id number] RECD: 01/14/22-1157 STATUS: SOUT REQ #: [id number] DONTE: 01/13/22- SUBM DR: Rj Evans DO ENTERED: 01/14/22-115 SP TYPE: SURGICAL OTHR DR: Edyta Reynolds MD, Abdul Hannan MD Dalal, Rajesh V MD Mouchli, Anas MD Raslan, Saleem MDORDERED: 50138, ANATOMIC SPEC COPIES TO: Edyta Reynolds MD [address] [place] [address] Robert Gold MD [address] [place] [address] [address]vd[address] [place] [address] Garth Hopkins MD [address] [place] [address] Chi Valencia MD [address] [place] [address] [id number] Devon Whatley MD [address] [facility] [address] [place] [address] Rj Evans DO [address] [place] [address] [id number] PROCEDURES: 94276 (01/14/22-115) TISSUES: A. ARTERY, ATHEROMATOUS PLAQUE - RT CONTINUED ON NEXT PAGE R UN DATE: 01/18/22 [facility] - LAB PAGE 2 RUN TIME: 1532 Specimen Inquiry RUN USER: INTERFACE S PEC #: [id number] PATIENT: MARLA CAMPOS #[id number] (Continued) CLINICAL HISTORY SAME FINAL DIAGNOSIS Right carotid plaque, segment: Atherosclerotic plaque. GROSS DESCRIPTION Received is 1 segment of arroyo-white fibrotic tissue measuring 3.1 cm in largest dimension. Sections are submitted. Technical component performed at [facility],[address] [place] [address], [place] [address] Unless gross only, the diagnosis is based [...] 01/18/22 1532 END OF REPORT BASIC METABOLIC [id number] 05:12:00 Test Item Value Reference Range Interpretation [...] code = 8.2 mg/dL 8.0-10.5 N CA) [id number] 05:12:00 Test Item Value Reference Range Interpretation Comments MAGNESIUM (test code = MAG) 2.54 mg/dL 1.80-2.40 H CBC W/AUTO [id number] 04:59:00 Test Item Value Reference Range Interpretation [...] (test code NO = MDIFF) BASIC METABOLIC [id number] 18:30:00 Test Item Value Reference Range Interpretation [...] code = 8.0 mg/dL 8.0-10.5 N CA) [id number] 18:30:00 Test Item Value Reference Range Interpretation Comments PHOSPHOROUS (test code = PHOS) 3.1 MG/DL 2.5-4.9 N [id number] 18:30:00 Test Item Value Reference Range Interpretation Comments MAGNESIUM (test code = MAG) 1.47 mg/dL 1.80-2.40 L CALCIUM [id number] 18:30:00 Test Item Value Reference Range Interpretation Comments CALCIUM IONIZED (test code = ETHAN) 1.21 MMOL/L 1.12-1.32 N CBC W/AUTO [id number] 18:11:00 Test Item Value Reference Range Interpretation [...] (test NO code = MDIFF) BASIC METABOLIC [id number] 15:19:00 Test Item Value Reference Range Interpretation [...] = 8.3 mg/dL 8.0-10.5 N CA) HGB [id number] 14:35:00 Test Item Value Reference Range Interpretation Comments HEMOGLOBIN (test code = HGB) 10.4 g/dL 11.0-15.0 L HEMATOCRIT (test code = HCT) 30.5 % 33.0-45.0 L [id number] 13:05:00 Test Item Value Reference Range Interpretation Comments ACT-ISTAT (test code 347 SEC 74-137 H Perform ed by certified = ACTFelipe) 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 COMPREHENSIVE METABOLIC [id number] 11:59:00 Test Item Value Reference Range Interpretation [...] (test code = LDL) NEAR OPTIM AL/ABOVE [id number] 89 HIGH>ZH=928 [place] HIGH*Guidelines provided by the National Choles terol EducationProgra m Adult Treatment Panel III [id number] 11:59:00 Test Item Value Reference Range Interpretation Comments MAGNESIUM (test code = MAG) 1.85 mg/dL 1.80-2.40 N PROTHROMBIN [id number] 10:22:00 Test Item Value Reference Range Interpretation [...] (to prevent recurrent infar ct). THROMBOPLASTIN TIME [id number] 10:22:00 Test Item Value Reference Range Interpretation Comments THROMBOPLASTIN TIME 22.6 Seconds 25.0-39.5 L Therape utic Range: PARTIAL (test code = 50.4 - 88.3 Seconds PTT) Effective 10/30/2018 CBC W/AUTO [id number] 09:58:00 Test Item Value Reference Range Interpretation [...] code = MDIFF) COVID 19 Asymptomatic IH [id number] 07:05:00 Test Item Value Reference Range Interpretation Comments COVID 19 Asymptomatic Negative Negative A nega tive result is IH AG (test code = presumpti ve and should COVNONPUIAG) be confirmedwit h an FDA authorized mole cular assay, if neces cherie forpatient briseida gemdanilo.A positive result does not rule out co-inf [...] waivedcomplexit y tests. - XR CHEST 2 [id number] 00:00:00 [facility] 1945 Sex: F FAX:Yumiko Mayer [phone] [place]: St: [facility] FAX: Devon Reese MD [phone] FAX: Rj Evans DO Name: MARLA CAMPOS [facility] : 1945 Age/S: 76/F [address] [place] [address] Unit #: [id number] Loc: [place] [address] Phys: Hallie Mayer NP Acct: [id number] Dis Date: Status: ADM IN PHONE #: [phone] Exam Date: 01/13/2022 1001 FAX #: [phone] Reason: PREOP CEA EXAMS: CPT CODE: [id number] XR CHEST 2 V 51430 PROCEDURE INFORMATION: Exam: XR Chest Exam date and time: 01/13/2022 9:46 AM Age: 76 years old Clinical indication: Pre-operative exam; Respiratory screening exam; Additional info: Preop cea TECHNIQUE: Imaging protocol: Radiologic exam of the chest. Views: 2 views. PAand Lateral COMPARISON: DX XR CHEST 2 V 11/01/2021 1:38 PM FINDINGS: Lungs: Normal lung volumes. No consolidation or infiltrate. Pleural spaces: No pleural effusion. No pneumothorax. Heart/Mediastinum:The cardiomediastinal silhouette is within normal limits. Pulmonary vasculature is unremarkable. Athe rosclerotic calcification of the aorta. Bones/joints: No acute abnormality seen. IMPRESSION: No acute cardiopulmonary findings at 1323 Reported and signed by: Renee Mcknight M.D. CC: Hallie Charles NP; Devon Whatley MD; Rj Evans DO Technologist: RT Lizbet(Vahid) Trnscrd Date/Time/By: 01/13/2022 (4232) : By: [email or web address] Orig Print D/T: S: 01/13/2022 (1655) PAGE 1 Signed ReportBASIC METABOLIC [id number] 13:29:00 Test Item Value Reference Range Interpretation [...] = 9.7 mg/dL 8.0-10.5 N CA) PROTHROMBIN [id number] 13:21:00 Test Item Value Reference Range Interpretation [...] (to prevent recurrent infar ct). 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 [id number] 12:33:00 Test Item Value Reference Range Interpretation Comments ACT-ISTAT (test code 184 SEC 74-137 H Perform ed by certified = ACTI) 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 [id number] 11:07:00 Test Item Value Reference Range Interpretation Comments ACT-ISTAT (test code 255 SEC 74-137 H Perform ed by certified = ACTI) 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 BASIC METABOLIC [id number] 14:51:00 Test Item Value Reference Range Interpretation [...] = 9.5 mg/dL 8.0-10.5 N CA) PROTHROMBIN [id number] 14:46:00 Test Item Value Reference Range Interpretation [...] (to prevent recurrent infar ct). CBC W/AUTO [id number] 14:37:00 Test Item Value Reference Range Interpretation [...] MANUAL DIFF REQUIRED (test code NO = BETITO) - XR CHEST 2 [id number] 00:00:00 [facility] 1945 Sex: F FAX:Devon Reese MD [phone] [place]: St: PRE Name: CAMERONMARLA DODSON [facility] : 1945 Age/S: 75/F [address] [place] [address] Unit #: [id number] Loc: [place] [address] Phys: Devon Whatley MD Acct: [id number] Dis Date: Status: PRE [facility] PHONE #: [phone] Exam Date: 11/01/2021 1342 FAX #: [phone] Reason: PREOP EXAMS: CPT CODE: [id number] XR CHEST 2 V 14288 PROCEDURE INFORMATION: Exam: XR Chest Exam date and time: 11/01/2021 1:38 PM Age: 75 years old Clinical indication: Pre-operative exam; Respiratory screening exam; Additional info: Preop TECHNIQUE: Imaging protocol: XR of the chest. Views: 2views. PA and Lateral COMPARISON: DX XR CHEST 2 V 08/02/2021 12:55 PM FINDINGS: Lungs: No consolidation. Pleural spaces: No pleural effusion. Heart/Mediastinum: The heart and vascular markings are within limits of normal. There is atherosclerotic calcification of the aorta. Bones/joints: No gross acute findings. IMPRESSION: No acute cardiopulmonary findings at 9805 Reported and signed by: Jose Duran D.O. CC: Devon Whatley MD Technologist: RT Rina(R) Trnscrd Date/Time/By: 11/01/2021 (8935) : By: [email or web address] Orig Print D/T: S: 11/01/2021 (0941) PAGE 1 Signed ReportHGB [id number] 08:45:00 Test Item Value Reference Range Interpretation Comments HEMOGLOBIN (test code = HGB) 8.9 g/dL 11.0-15.0 L HEMATOCRIT (test code = HCT) 27.4 % 33.0-45.0 L B-TYPE NATRIURETIC [id number] 15:10:00 Test Item Value Reference Range Interpretation Comments B-TYPE NATRIURETIC PEPTIDE (test 59.0 PG/ML 0-100 N code = BNP) BASIC METABOLIC [id number] 14:55:00 Test Item Value Reference Range Interpretation [...] 8.7 mg/dL 8.0-10.5 N CA) CBC W/AUTO [id number] 14:39:00 Test Item Value Reference Range Interpretation [...] DIFF REQUIRED (test code NO = MDIFF) [id number] 19:05:00 Test Item Value Reference Range Interpretation Comments ACT-ISTAT (test code 154 SEC 74-137 H Perform ed by certified = ACTI) 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 [id number] 17:59:00 Test Item Value Reference Range Interpretation Comments ACT-ISTAT (test code 178 SEC 74-137 H Perform ed by certified = ACTI) 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 [id number] 17:08:00 Test Item Value Reference Range Interpretation Comments ACT-ISTAT (test code 207 SEC 74-137 H Perform ed by certified = ACTI) 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 [id number] 16:04:00 Test Item Value Reference Range Interpretation Comments ACT-ISTAT (test code 243 SEC 74-137 H Perform ed by certified = ACTI) 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 [id number] 15:26:00 Test Item Value Reference Range Interpretation Comments ACT-ISTAT (test code 237 SEC 74-137 H Perform ed by certified = ACTI) 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 BASIC METABOLIC [id number] 14:58:00 Test Item Value Reference Range Interpretation [...] = 9.6 mg/dL 8.0-10.5 N CA) PROTHROMBIN [id number] 14:51:00 Test Item Value Reference Range Interpretation [...] (to prevent recurrent infar ct). CBC W/AUTO [id number] 14:46:00 Test Item Value Reference Range Interpretation [...] NO = MDIFF) - XR CHEST 2 [id number] 00:00:00 [facility] 1945 Sex: F FAX:Devon Reese MD [phone] [place]: St: PRE Name: MARLA CAMPOS [facility] [place] : 1945 Age/S: 75/F [address] [place] [address] Unit #: [id number] Loc: [place] [address] Phys: Devon Whatley MD Acct: [id number] Dis Date: Status: PRE [facility] PHONE #: [phone] Exam Date: 08/02/2021 1340 FAX #: [phone]: PREOP EXAMS: CPT CODE: [id number] XR CHEST 2 V 17361 PROCEDURE INFORMATION: Exam: XR Chest Exam date [...] at 1418 Reported and signed by: Jose Duran D.O. CC: Devon Whatley MD Technologist: RT Corrine(R) Trnscrd Date/Time/By: 08/02/2021 (6844) : By: [email or web address] Orig Print D/T: S: 08/02/2021 (8021) PAGE 1 Signed ReportCBC W/AUTO [id number] 08:01:00 Test Item Value Reference Range Interpretation [...] (test code NO = MDIFF) BASIC METABOLIC [id number] 07:50:00 Test Item Value Reference Range Interpretation [...] code = 9.5 mg/dL 8.0-10.5 N CA) [id number] 07:50:00 Test Item Value Reference Range Interpretation Comments MAGNESIUM (test code = MAG) 1.70 mg/dL 1.80-2.40 L BASIC METABOLIC [id number] 07:53:00 Test Item Value Reference Range Interpretation [...] code = 8.6 mg/dL 8.0-10.5 N CA) [id number] 07:53:00 Test Item Value Reference Range Interpretation Comments MAGNESIUM (test code = MAG) 1.68 mg/dL 1.80-2.40 L CBC W/AUTO [id number] 07:46:00 Test Item Value Reference Range Interpretation [...] (test code NO = MDIFF) CBC W/AUTO [id number] 08:42:00 Test Item Value Reference Range Interpretation [...] x10 3/uL 0.0-0.1 N NRBC#) BASIC METABOLIC [id number] 08:13:00 Test Item Value Reference Range Interpretation [...] code = 8.9 mg/dL 8.0-10.5 N CA) [id number] 08:13:00 Test Item Value Reference Range Interpretation Comments MAGNESIUM (test code = MAG) 1.49 mg/dL 1.80-2.40 L GLUCOSE [id number] 12:42:00 Test Item Value Reference Range Interpretation Comments GLUCOSE BEDSIDE (test 113 MG/DL 70-110 H Perfor med by certified code = GLUBED) pelletising extruder operator at [facility] HGB [id number] 11:54:00 Test Item Value Reference Range Interpretation Comments HEMOGLOBIN (test code = HGB) 12.9 g/dL 11.0-15.0 N HEMATOCRIT (test code = HCT) 36.8 % 33.0-45.0 N CBC W/AUTO [id number] 08:27:00 Test Item Value Reference Range Interpretation [...] (test code NO = MDIFF) BASIC METABOLIC [id number] 08:04:00 Test Item Value Reference Range Interpretation [...] code = 9.3 mg/dL 8.0-10.5 N CA) [id number] 08:04:00 Test Item Value Reference Range Interpretation Comments MAGNESIUM (test code = MAG) 1.44 mg/dL 1.80-2.40 L COVID 19 Asymptomatic IH [id number] 19:17:00 Test Item Value Reference Range Interpretation [...] moderate, high or waivedcomplexit y tests. HGB [id number] 11:49:00 Test Item Value Reference Range Interpretation [...] reported as: 35 .3 % CBC W/AUTO [id number] 11:45:00 Test Item Value Reference Range Interpretation [...] (test code NO = MDIFF) BASIC METABOLIC [id number] 07:46:00 Test Item Value Reference Range Interpretation [...] mg/dL 8.0-10.5 N CA) PLT RESPONSE TO [id number] 00:38:00 Test Item Value Reference Range Interpretation [...] be rejected by our instrumentation . HGB [id number] 00:35:00 Test Item Value Reference Range Interpretation Comments HEMOGLOBIN (test code = HGB) 11.5 g/dL 11.0-15.0 N HEMATOCRIT (test code = HCT) 33.3 % 33.0-45.0 N - CT ABD PELVIS W/O [id number] 00:00:00 [facility] 1945 Sex: F Name: MARLA CAMPOS [facility] : 1945 Age/S: 75 / F [address] [place] [address] Unit #: [id number] Loc: [place] [address] Phys: David Chong MD Acct: [id number] Dis Date: Status: ADM IN PHONE #: [phone] Exam Date: 05/08/2021 1537 FAX #: [phone] Reason: abd pain, melena EXAMS: CPT CODE: [id number] CT ABD PELVIS W/O CONT 75179 PROCEDURE INFORMATION: Exam: CT Abdomen And Pelvis [...] evidence of free intraperitoneal air. No significant baljeet e intraperitoneal fluid. RETROPERITONEUM: The abdominal aorta is normal in caliber. No evidence of retroperitoneal mass or enlarged retroperitoneal lymph nodes. PELVIS: The patient is status post hysterectomy. No adnexal masses or enlarged pelvic lymph nodes are identified. A pessary is noted in the vagina. The bladder has an unremarkable appearance. LOWER THORAX: The lung bases appear clear of acutedisease. Scarring or atelectasis is noted in the posterior basilar right lower lobe. ADDITIONL FINDINGS: None. PAGE 1 Signed Report (CONTINUED) Name: MARLA CAMPOS [facility] : 1945 Age/S: 75 / F [address] [place] [address] Unit #: [id number] Loc: [place] [address] Phys: David Chong MD Acct: [id number] Dis Date: Status: ADM IN PHONE #: [phone] Exam Date: 05/08/2021 1533 FAX #: [phone] Reason: abd pain, melena EXAMS: CPT CODE: [id number] CT ABD PELVIS W/O CONT 29645 (Continued) IMPRESSION: 1. No acute CT abnormalities of the abdomen or pelvis are detected. SL:131 at 1706 Reported and signedby: Devin Freedman M.D. CC: David Chong MD Technologist:RT Martine(R)(CT) CTDI:DLP: Trnscb Date/Time: 05/08/2021 (1706) Martin.DMM Orig Print D/T: S: 05/08/2021 (2495) PAGE 2 Signed ReportLACTIC [id number] 22:01:00 Test Item Value Reference Range Interpretation Comments LACTIC ACID (test code = LACT) 0.6 mmol/L 0.4-1.9 N BASIC METABOLIC [id number] 20:49:00 Test Item Value Reference Range Interpretation [...] 9.5 mg/dL 8.0-10.5 N CA) COMPREHENSIVE METABOLIC [id number] 20:49:00 Test Item Value Reference Range Interpretation [...] IUnit/L 20-125 N code = ALKP) PROTHROMBIN [id number] 20:43:00 Test Item Value Reference Range Interpretation [...] (to prevent recurrent infar ct). CBC W/O [id number] 20:35:00 Test Item Value Reference Range Interpretation [...] fL 7.0-9.0 H = MPV) COAGULATION TIME [id number] 20:22:00 Test Item Value Reference Range Interpretation Comments COAGULATION TIME 261 SECONDS Performed b y ACTIVATED (test code = certi fied pelletising extruder operator ACT) at [facility] COAGULATION TIME [id number] 20:22:00 Test Item Value Reference Range Interpretation Comments COAGULATION TIME 272 SECONDS Performed b y ACTIVATED (test code = certi fied pelletising extruder operator ACT) at [facility] PROTHROMBIN [id number] 12:32:00 Test Item Value Reference Range Interpretation [...] (to prevent recurrent infar ct). BASIC METABOLIC [id number] 12:16:00 Test Item Value Reference Range Interpretation [...] 9.4 mg/dL 8.0-10.5 N CA) CBC W/AUTO [id number] 12:03:00 Test Item Value Reference Range Interpretation [...] 0.0-0.1 N NRBC#) - XR CHEST 2 [id number] 00:00:00 [facility] 1945 Sex: F FAX:Devon Reese MD [phone] [place]: St: PRE Name: MARLA CAMPOS [facility] : 1945 Age/S: 75/F [address] [place] [address] Unit #: [id number] Loc: [place] [address] Phys: Devon Whatley MD Acct: [id number] Dis Date: Status: PRE [facility] PHONE #: [phone] Exam Date: 05/03/2021 1213 FAX #: [phone] Reason: PREOP EXAMS: CPT CODE: [id number] XR CHEST 2 V 22019 PROCEDURE INFORMATION: Exam: XR Chest Exam date and time: 05/03/2021 11:44 AM Age: 75 years old Clinical indication: Other: Preop TECHNIQUE: Imaging protocol: XR of the chest. Views: 2 views. PA and Lateral COMPARISON: No relevant prior studies available. FINDINGS: Lungs: There are normal lung volumes without consolidation or interstitial opp acities. Pleural spaces: No pleural effusion. No pneumothorax. Heart/Mediastinum: The heart size is normal. Vasculature: Aortic arch calcifications are present. Bones/joints: No acute abnormality. IMPRESSION: No acute cardiopulmonary process. at 1226 Reported and signed by: Eliud Martinez M.D. CC: Devon Whatley MD Technologist: RT Pam(R) Trnscrd Date/Time/By: 05/03/2021 (5946) : By: [email or web address] Orig Print D/T: S: 05/03/2021 (9466) PAGE 1 Signed ReportCT Heart Scan Plus [...] of Atherosclerosis0-Normal 1-10 - Minimal extent of whhnzgfjkuudvay22-848 - Mild extent of -763 - Moderate extent of atherosclerosis> 400 - [...] of Atherosclerosis0-Normal 1-10 - Minimal extent of crwokibzckmxihh16-949 - Mild extent of treqpxhihkuvpbm090-465 - Moderate extent of atherosclerosis> 400 - Severe extent of atherosclerosisRECOMMENDATION:A score of 1197 places the patient in the 90th percentile rank. That means 10% of the females at the ages from 71-75 have a higher calcium score. Intensive risk factor modification is indicated to prevent further progression (>0). Please contact your physician regarding these results.INCIDENTAL FINDINGS:[id number] D_PS01[facility] vascular screening heart scan plus (self pay) [...] (DP): 116 0.85 [id number] Interface, Radiology Results Incoming- 03/03/2021 10:30 AM CDT CLINICAL INFORMATION:E78.5 Hyperlipidemia [...] code = 2.9 meq/L 3.5-5.1 L 379) [id number] 07:21:00 Test Item Value Reference Range Interpretation Comments MAGNESIUM (BEAKER) (test code = 1.5 mg/dL 1.6-2.6 L 627) [id number] 06:36:00 Test Item Value Reference Range Interpretation Comments POTASSIUM (BEAKER) (test code = 3.5 meq/L 3.5-5.1 379) [id number] 06:36:00 Test Item Value Reference Range Interpretation Comments MAGNESIUM (BEAKER) (test code = 1.5 mg/dL 1.6-2.6 L 627) BASIC METABOLIC [id number] 10:13:00 Test Item Value Reference Range Interpretation [...] 1092) DATA TO CALCULA TE ESTIMATED GFR. [id number] 10:08:00 Test Item Value Reference Range Interpretation Comments MAGNESIUM (BEAKER) (test code = 1.4 mg/dL 1.6-2.6 L 627) [id number] 04:41:00 Test Item Value Reference Range Interpretation Comments MAGNESIUM (BEAKER) (test code = 1.4 mg/dL 1.6-2.6 L 627) BASIC METABOLIC [id number] 04:41:00 Test Item Value Reference Range Interpretation [...] ESTIMATED GFR. CBC W/PLT COUNT & AUTO [id number] 04:23:00 Test Item Value Reference Range Interpretation [...] (BEAKER) (test code = 2801) BASIC METABOLIC [id number] 06:29:00 Test Item Value Reference Range Interpretation [...] 1092) DATA TO CALCULA TE ESTIMATED GFR. [id number] 06:26:00 Test Item Value Reference Range Interpretation Comments MAGNESIUM (BEAKER) (test code = 1.4 mg/dL 1.6-2.6 L 627) POCT-GLUCOSE [id number] 04:52:00 Test Item Value Reference Range Interpretation Comments POC-GLUCOSE METER 103 mg/dL 70-110 TESTED AT [facility] 6720 (BEAKER) (test code = ADAMPAT [facility] 1538) [address] CT, BRAIN, WITHOUT [id number] 01:41:00Reason for exam:->Fall and hit head on [...] Verified Date/Time: 04/18/2019 01:41:45 CT, CEREBRAL PERFUSION [id number] 13:14:00Reason for exam:- >Assessment for collateral perfusionAnesthesia:->NoneFINAL [...] Joseph Verified Date/Time: 04/17/2019 13:14:17 CT, CAROTID, [id number] 13:27:00Reason for exam:->cvaFINAL REPORT CLINICAL HISTORY: cvaR [...] the diminutive distal right vertebral artery. Bilateral supervisor refining and branches are of normal caliber. The [...] is of normal caliber. Signed: Natalie Joseph MDReport Verified Date/Time: 04/15/2019 13:27:10 Electronically signed by: Triston ARTIS 04/15/2019 01:27 PMCT, CTANGIO [id number] 13:27:00Reason for exam:->right MCA strokeFINAL REPORT CLINICAL [...] the diminutive distal right vertebral artery. Bilateral supervisor refining and branches are of normal caliber. The [...] signed by: Triston ARTIS 04/15/2019 01:27 PMURIC [id number] 06:14:00 Test Item Value Reference Range Interpretation Comments URIC ACID (BEAKER) (test code = 3.8 mg/dL 2.6-7.2 773) BASIC METABOLIC [id number] 06:36:00 Test Item Value Reference Range Interpretation [...] TO CALCULA TE ESTIMATED GFR. BASIC METABOLIC [id number] 06:09:00 Test Item Value Reference Range Interpretation [...] ESTIMATED GFR. CBC W/PLT COUNT & AUTO [id number] 05:36:00 Test Item Value Reference Range Interpretation [...] (BEAKER) (test code = 2801) BASIC METABOLIC [id number] 06:05:00 Test Item Value Reference Range Interpretation [...] TE ESTIMATED GFR. RAD, ABDOMEN/KUB, 1 VIEW [id number] 02:48:00Reason for exam:->Corpak placement 0111 AMFINAL REPORT [...] Date/Time: 04/12/2019 02:48:37 RAD, ABDOMEN/KUB, 1 VIEW [id number] 00:53:00Reason for exam:->Corpak placement verification. 0005 AMShould [...] Verified Date/Time: 04/12/2019 00:53:54 MR, BRAIN, WITHOUT [id number] 00:10:00Reason for exam:->Ischemic Stroke Evaluationwith General AnesthesiaFINAL [...] Date/Time: 04/12/2019 00:10:30 MR, MRA, BRAIN, WITHOUT [id number] 00:10:00Reason for exam:->Ischemic Stroke Evaluationwith general anesthesiaFINAL [...] on 04/12/2019 12:05 AM. Signed: Ronald Gaines [facility] Verified Date/Time: 04/12/2019 00:10:30 MR, MRA, NECK, WITHOUT IV [id number] 00:10:00Reason for exam:->Ischemic Stroke Evaluationwith general anesthesiaFINAL [...] , on 04/12/2019 12:05 AM. Signed: Ronald Gainesort Verified Date/Time: 04/12/2019 00:10:30 [id number] 13:25:00 Test Item Value Reference Range Interpretation Comments RPR SCREEN (BEAKER) (test code = Nonreactive Nonreactive 420) HEMOGLOBIN [id number] 10:35:00 Test Item Value Reference Range Interpretation Comments HEMOGLOBIN A1C (BEAKER) (test code = 5.5 % 4.3-6.1 368) COMPREHENSIVE METABOLIC [id number] 07:01:00 Test Item Value Reference Range Interpretation [...] 1092) DATA TO CALCULA TE ESTIMATED GFR. [id number] 06:29:00 Test Item Value Reference Range Interpretation Comments MAGNESIUM (BEAKER) (test code = 1.6 mg/dL 1.6-2.6 627) FastingLIPID [id number] 06:29:00 Test Item Value Reference Range Interpretation [...] Very High >=190 Fasting TSH/FREE T4 IF [id number] 06:22:00 Test Item Value Reference Range Interpretation Comments THYROID STIMULATING HORMONE 1.35 uIU/mL 0.35-4.94 (BEAKER) (test code = 772) CBC W/PLT COUNT & AUTO [id number] 06:01:00 Test Item Value Reference Range Interpretation [...] code = 2801) URINALYSIS WITH MICROSCOPIC IF [id number] 14:45:00 Test Item Value Reference Range Interpretation [...] (test code = 2795) VITAMIN B12 AND [id number] 14:43:00 Test Item Value Reference Range Interpretation Comments VITAMIN B12 (BEAKER) (test code = 1414 pg/mL 213-816 H 774) FOLATE (BEAKER) (test code = 362) > ng/mL >=7.0 TSH/FREE T4 IF [id number] 14:36:00 Test Item Value Reference Range Interpretation Comments THYROID STIMULATING HORMONE 1.54 uIU/mL 0.35-4.94 (BEAKER) (test code = 772) BASIC METABOLIC [id number] 13:34:00 Test Item Value Reference Range Interpretation [...] 1092) DATA TO CALCULA TE ESTIMATED GFR. [id number] 13:18:00 Test Item Value Reference Range Interpretation Comments MAGNESIUM (BEAKER) (test code = 1.4 mg/dL 1.6-2.6 L 627) Notes Date/Time Note Provider Source 2022-07-22 10:16:00-00:00 [facility] ([facility]) Discharge Summary REPORT#:[id number] REPORT STATUS: Signed DATE:07/22/22 TIME: 1016 PATIENT: MARLA CAMPOS UNIT #: [id number] ROOM/BED: [place] [id number] : 45 AGE: 76 SEX: F ATTEND: Reggie Gold MD ADM AUTHOR: Jackeline Loja * ALL edits or amendments must be made on the [employer]/computer document * General Information Discharge date: 07/22/22 Discharge diagnosis: Carotid artery disease Hospital course: 76-year-old female with a past medical history o f bilateral carotid artery stenosis. She underwent right carotid endarterec ramez in December 2021. She was admitted this hospitalization for left c arotid endarterectomy. This procedure was performed on 07/21/2022. Patient tolerated the procedure well. She was tr ansferred to ICU in stable condition. She required minimal nitrogly cerin. She was started on amlodipine 5 mg. Her blood pressure was well controlled with a goal of 100-130 systolics. Patient denies any headaches, denies any facial numbness, denies any facial droop, denies any deviation of tongue. Med Rec Med Rec Discharge meds: Continue taking these medications: ASPIRIN EC (ECOTRIN) 81 MG TAB.EC 81 MILLIGRAM ORAL DAILY. [MAGNESIUM GLYCENATE] 120 MG 2 TABLET ORAL THREE TIMES A DAY. UBIDECARENONE (CO Q-10) 100 MG CAP 100 MILLIGRAM ORAL TWICE DAILY. [PEARLS PROBIOTIC] 1 TABLET ORAL DAILY. [COSAMIN ASU JOINT ] 1 TABLET ORAL DAILY. Instructions: JOINT HEALTH ONE A DAY [MOVE FREE JOINT ] 1 TABLET ORAL DAILY. Instructions: JOINT HEALTH ONE A DAY ATORVASTATIN (LIPITOR) 40 MG TAB 40 MILLIGRAM ORAL BEDTIME. CLOPIDOGREL (PLAVIX) 75 MG TAB 75 MILLIGRAM ORAL DAILY. Days = 90 Qty = 90 LEVOCETIRIZINE (XYZAL) 5 MG TAB 5 MILLIGRAM ORAL DAILY. PANTOPRAZOLE DR (PROTONIX) 40 MG TAB.DR 40 MILLIGRAM ORAL DAILY. FAMOTIDINE (PEPCID) 20 MG TAB 20 MILLIGRAM ORAL BEDTIME. SPIRONOLACTONE (ALDACTONE) 50 MG TAB 50 MILLIGRAM ORAL DAILY. MEMANTINE (NAMENDA) 5 MG TAB 5 MILLIGRAM ORAL TWICE DAILY. ESTROGENS,CONJ (PREMARIN 0.625 MG/GM VAGINAL) 0. 625 MG/GRAM CREAM 0.5 GRAM VAGINAL MoTh DOCUSATE SODIUM (COLACE) 100 MG CAP 100 MILLIGRAM ORAL TWICE DAILY. [CURCUMIN] 150 MILLIGRAM ORAL DAILY. CHOLECALCIFEROL (VITAMIN D3) (VITAMIN D3) 25 MCG (1,000 UNIT) CAP 25 MILLIGRAM ORAL DAILY. PHYTONADIONE (VITAMIN K) 100 MCG TAB 100 MICROGRAM ORAL ONE TIME ONLY. BENZONATATE (TESSALON) 100 MG CAP 100 MILLIGRAM ORAL EVERY 8 HR NEEDED. as nee ded for COUGH BUDESONIDE/FORMOTEROL (SYMBICORT 160/4.5 MCG/ACT 10.2GM) 160 MCG-4.5 MCG/ ACTUATION INHALER 2 PUFF INHALATION RT - TWICE DAILY. PROMETHAZINE/DEXTROMETHORPHAN (PHENERGAN DM 6.25-15 MG/5ML) 6.25 MG-15 MG/5 ML SYRUP 5-10 MILLILITERS ORAL EVERY 6 HOURS NEEDED. as needed for COUGH ALBUTEROL (ALBUTEROL 2.5 MG/3 ML (75mL)) 2.5 MG/ 3 ML (0.083 %) NEB 2.5 MILLIGRAM NEB RT - EVERY 6 HOURS. [MAGNESIUM GLYCENATE] 240 MILLIGRAM ORAL THREE TIMES A DAY. Start taking the following new medications: amLODIPine (NORVASC) 2.5 MG TAB 2.5 MILLIGRAM ORAL DAILY. Days = 14 Qty = 14 No Refills Objective VS/I O Last Documented: Result Date Time Pulse Ox 95 07/22 903 B/P 151/64 07/22 903 B/P Mean 92 07/22 0904 Pulse 80 07/22 09 Resp 34 07/22 09 Temp 98.3 07/22 06 O2 Delivery Nasal cannula 07/21 2155 O2 Flow Rate 2 07/21 2155 24 hour I O ending at 0700: 07/22 0700 07/21 1900 Intake Total 424.00 1100 Output Total 20 500 Balance 404.00 600 Intake, IV 224.00 Intake, Oral 200 300 Intake, Other 800 Number 7 Incontinent Voids Output, 20 Drainage Output, Urine 500 PATIENT WEIGHT: Weight (lb): 150 Weight (oz): 5.05 Weight (kg): 68.182 General appearance: alert, awake, oriented Head/Eyes: EOMI Neck: full range of motion, no JVD Cardiovascular: regular rate rhythm, normal hear t sounds Respiratory: clear to auscultation Extremities: no edema-all extremities 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: alert, oriented X 3, normal speech, n o motor deficits Wound/incision: Location: NANO drain removed. Minimal drianage overnight Results Findings/Data: Laboratory Tests: 07/22 0525 Chemistry Sodium (134 - 147 mEq/L) 141 Potassium (3.4 - 5.0 mEq/L) 3.8 Chloride (100 - 108 mEq/L) 108 Carbon Dioxide (21 - 33 mEq/l) 25 Anion Gap (0 - 20) 12 BUN (7 - 18 mg/dL) 12 Creatinine (0.6 - 1.3 mg/dL) 1.0 Glomerular Filtr Rate (70 - 80) 58.4 L Glucose (70 - 110 mg/dL) 99 Calcium (8.0 - 10.5 mg/dL) 8.8 Hematology WBC (4.5 - 11.0 x10 3/uL) 11.6 H RBC (3.54 - 5.02 x10 6/uL) 3.77 Hgb (11.0 - 15.0 g/dL) 11.7 Hct (33.0 - 45.0 %) 35.7 MCV (81.0 - 99.0 fL) 94.7 MCH (27.0 - 33.0 pg) 31.0 MCHC (33.0 - 37.0 g/dL) 32.8 L RDW (11.5 - 14.5 %) 13.1 Plt Count (150 - 400 x10 3/uL) 145 L MPV (7.0 - 9.0 fL) 10.5 H Neut % (Auto) (56.0 - 77.0 %) 77.5 H Lymph % (Auto) (14.0 - 32.0 %) 13.1 L [place] % (Auto) (4.8 - 9.0 %) 8.4 Eos % (Auto) (0.3 - 3.7 %) 0.3 Baso % (Auto) (0.0 - 2.0 %) 0.4 Neut # (Auto) (2.0 - 7.6 x10 3/uL) 8.97 H Lymph # (Auto) (1.0 - 3.8 x10 3/uL) 1.51 [place] # (Auto) (0.1 - 0.8 x10 3/uL) 0.97 H Eos # (Auto) (0.0 - 0.2 x10 3/uL) 0.03 Baso # (Auto) (0.0 - 0.2 x10 3/uL) 0.05 Abs Immat Gran (auto) (0.00 - 0.03 x10 3/uL) 0. 04 H Add Manual Diff NO Immature Gran % (0.0 - 2.0 %) 0.3 Nucleated RBC % (0 - 0 %) 0.0 Nucleated RBCs # (Man) (0.0 - 0.1 x10 3/uL) 0.0 0 Treatments Procedures Free Text T P Notes Free Text T P Notes: 76 year old with past medica l history of hypertension, bilateral carotid artery stenosis. Patient underwent left carotid endarterectomy 07/21/2022. Patient tolerated the procedure well. She was transferre d to ICU in stable condition. She was started on amlodipine 5 mg for blood pre ssure control. Her blood pressures have remained systolics 100-130s. The patient denies any neurologic symptoms. She denies any headache, she denies an y facial drop. She denies any facial numbness. Patient okay to be discharged home. We will cont inue amlodipine 2.5 mg daily. She will follow-up in clinic in 1 weeks. She was instructed to monitor her blood pressure routinely at home. Wound care instructions were discussed w ith the patient to include washing the wound with soap and water. Okay to leave open to air. Patient is directed to notify our office for any redness, bleeding, infection, fever, chills, headache or any other neurologic symptoms. Patient's was at the bedside and all que stions were answered. Discharge Instructions PCP PCP: PCP: Garth Hopkins MD )( Discharge to: Home/Self Care Discharge Instructions Additional Discharge Routines: PCP Follow-Up, Co nsultant Follow-Up )( Diet: Cardiac Follow-up Appointments PCP follow up: PCP: Garth Hopkins MD PCP follow up timeframe: In 1-2 weeks Consulting provider 1: Provider 1: Robert Gold MD Specialty: Thoracic Surgery Consult follow up timeframe: In 1-2 weeks Special instructions: Apt 07/27/21 @ 2:15 Quality: Discharge Advanced Care Plan 65 or Older Discussed with: patient, other Current Medications Current medication review: I attest that the foregoing medication list in t he medical record is true, accurate, and complete to the best of my knowled ge. Electronically Signed by Jackeline Loja on 0 07/22/22 at 1053 at 1114 RPT #:[id number] END OF REPORT 2022-07-21 14:50:00-00:00 [facility] ([facility]) DT Operative Note REPORT#:[id number] REPORT STATUS: Signed DATE:07/21/22 TIME: 1450 PATIENT: MARLA CAMPOS UNIT #: [id number] ROOM/BED: [place] [id number] : 45 AGE: 76 SEX: F ATTEND: Reggie Gold MD ADM AUTHOR: Robert Gold MD * ALL edits or amendments must be made on the [employer]/computer document * Operative Report Operative Note Note: Preoperative diagnosis: Asymptomatic severe left internal carotid artery stenosis Postoperative diagnosis: Asymptomatic severe lef t internal carotid artery stenosis Operation: Left carotid endarterectomy Surgeon: Robert Gold MD Delivery Supervisor: Kuldeep Castillo Anesthesiologist: Prince Rose Marie MD Anesthesia: General endotracheal anesthesia Estimated blood loss: 20 cc Indication: Ms. Campos is a very pleasant 76-yea r-old female who was recently found to have symptomatic severe bilateral inter nal carotid artery stenosis. She is status post right car otid endarterectomy. After due preop counseling she was brought to the operating room today for left carotid endarterectomy. Findings: 1. Calcified plaque at the bifurcation of the left common carotid artery leading to a pinhole opening in the left internal carotid artery. 2. good endpoint in the left internal ca rotid artery following endarterectomy. 3. The hypoglossal nerve was identified and protected throughout the procedure. 4. The tongue was in the midline and pat ient was moving all extremities at the end of the procedure. Procedure: Ms. Logan was yissel ntified in the preop holding area and brought to the operating room and placed supine on the operatin g table. After induction of general endotracheal anesthesia, the left side o f the neck was prepped and draped in standard surgical fashion. A 4 cm inci jose was made along the anterior border of the middle third left sternoc leidomastoid. Platysma was divided with Bovie cautery. The deep cervical fa scia was opened. The facial vein was identified dissected ligated and divide d. Hypoglossal nerve was identified and protected throughout the procedur e. The left common carotid artery, the left internal ca rotid artery, and left external carotid artery were identified, dissected and isolated. Eden ent was heparinized with 7000 units of heparin. After waiting for 3 minutes the bifurcation of the left common carotid artery was an isolated with 3 profunda c lamp. Arteriotomy was performed on the left common carotid artery and extended onto the left internal carotid artery using Freitas scissors. A Poole shunt was then pl aced in the left common and internal carotid artery. Next using a [place] dissector endarterectomy of the left common and internal carotid artery was perf ormed. Endarterectomy of the left external carotid artery was perform ed using eversion technique. There was a good endpoint in the left internal carotid art marlon. Next patch repair of the left common and internal carotid artery was performed using bovine pericardial patch and running 6-0 Prolene suture. Prior to t heather the patch down Poole shunt was removed and careful dilation was perfo rmed. Next 7 NANO drain was placed in the wound. Hemosta sis was confirmed and the neck was closed in layers using #2 Vicryl for the platysma and 4-0 Vicryl for the skin. Patient was extubated in the operating room and moved to PAC U in stable condition. at 1453 RPT #:[id number] END OF REPORT 2022-07-21 11:09:00-00:00 [facility] ([facility]) Critical Care Consult Note REPORT#:[id number] REPORT STATUS: Signed DATE:07/21/22 TIME: 1109 PATIENT: MARLA CAMPOS UNIT #: [id number] ROOM/BED: [place] [id number] : 45 AGE: 76 SEX: F ATTEND: Reggie Gold MD ADM AUTHOR: Chi Valencia MD * ALL edits or amendments must be made on the el ectronic/computer document * History of Present Illness HPI Requesting clinician: Dr. Gold Reason for consult: postop management Chief complaint: CEA PCP: PCP: Garth Hopkins MD HPI: 76-year-old female with history of CAD/PCI, PAD and bilateral carotid artery stenosis s/p right CEA last year, who underwent left CEA today on 07/21/2022. Surgery went well and nga arenas was transferred to CCU postop in a stable surgical condition. She complains of left tongue numbness but otherwise no other complaints reported like mandi st pain, shortness of breath, dizziness or weakness. History - Adult longitudinal Past medical history: Reports: Anemia, Coronary artery disease, Hypert ension, Transient ischemic attack, Dyslipidemia, Peptic ulcer disease. Past surgical history: Reports: Cholecystectomy, Hysterectomy, Knee pro cedure, PCI. Additional surgical history: Breast biopsy Sinus surgery Additional family history: Denies Alcohol use: Denies EtOH use Drug use: Denies recreational drugs Smoking status for patients 13 years old or olde r: Never Smoker Additional social history: Lives at home with her in a single-story home. No stairs to enter. She is ambulatory with a single-point cane. She no longer drives her assists her with any assistance at home . Allergies: Coded Allergies: Corcoran And Derivatives (Severe, VOMITING 3) Penicillins (Severe, INJECTION SITE SWELLING 12/06) fludrocortisone (From FLORIN EF) (Severe, SEVERE RASH, SWELLING OF EYES 07/21/22) lansoprazole (From PREVACID) (Severe, NAUSEA, CH ILLS 07/21/22) meperidine (From DEMEROL) (Severe, VOMITING 12/06) Quinolones (Intermediate, RASH, FACIAL SWELLING 07/21/22) Sulfa (Sulfonamide Antibiotics) (Intermediate, R SONYA, EYE SWELLING 07/21/22) fluticasone furoate (From BR EO ELLIPTA) (Intermediate, HARD TO BREATH 07/21/22) rofecoxib (From VIOXX) (Intermediate, EYE AND CRISTINO DY SWELLING 07/21/22) sulfapyridine (Intermediate, EYE LID SWELLING ) vilanterol (From BREO ELLIPTA) (Intermediate, KHOURY RD TO BREATH 07/21/22) Iodinated Contrast Media (UNKNOWN 07/21/22) clotrimazole (Intermediate, UTI, RASH 07/21/22) gabapentin (Intermediate, DIZZINESS, NAUSEA, CON STIPATION 07/21/22) pregabalin (From LYRICA) (Intermediate, WATERY E YES 07/21/22) clarithromycin (From BIAXIN) (Mild, RASH, SORE T ONGUE 07/21/22) doxycycline (From PERIOSTAT) (Mild, ABDOMINAL PA IN 07/21/22) nabumetone (From RELAFEN) (Mild, ABDOMINAL PAIN 07/21/22) Review of Systems ROS Neuro: Reports: numbness. All systems rev neg: except as marked Objective Physical Exam VS/I O: Last Documented: Result Date Time Temp 97.3 07/21 1003 Pulse Ox 97 07/21 0930 B/P 127/61 07/21 0930 Pulse 58 07/21 0930 Resp 20 07/21 0930 O2 Delivery Nasal cannula 07/21 0905 O2 Flow Rate 2 07/21 0905 24 hour I O ending at 0700: 07/21 0700 07/20 1900 Intake Total Output Total Balance Patient 68.182 kg Weight Weight Stated/Reported Measurement Method Patient Weight and BMI Weight (kg): 68.182 BMI: 26.6 Medications: Active Meds + DC'd Last 24 Hrs Glucagon (GLUCAGON) 1 MG ASDIR PRN IM Mupirocin (BACTROBAN 2% 22 GM OINTMENT) 1 APPLIC BID NASAL Docusate Sodium (COLACE) 100 MG BID PO Acetaminophen (TYLENOL) 650 MG Q4H PRN PRN PO Bisacodyl (DULCOLAX) 10 MG DAILY PRN PRN RECTAL Hydrocodone Bitart/Acetaminophen (NORCO 5/325) 1 TAB Q4H PRN PRN PO Magnesium Hydroxide (MILK OF MAGNESIA) 30 ML Q6H PRN PRN PO Lidocaine HCl (XYLOCAINE) 0 .STK-MED ONE .ROUTE (DC) Glycopyrrolate (GLYCOPYRROLATE) 0 .STK-MED ONE . ROUTE (DC) Neostigmine Methylsulfate (PROSTIGMIN) 0 .STK-ME D ONE .ROUTE (DC) Fentanyl Citrate (SUBLIMAZE) 50 MCG PACU Q10MIN PRN PRN IV Fentanyl Citrate (SUBLIMAZE) 25 MCG PACU Q10MIN PRN PRN IV Hydromorphone HCl (DILAUDID) 0.5 MG PACU Q10MIN PRN PRN IV Hydromorphone HCl (DILAUDID) 0.25 MG PACU Q5MIN PRN PRN IV Morphine Sulfate (morphine SULFATE) 2 MG PACU Q1 0MIN PRN PRN IV Nitroglycerin/Dextrose (NITROGLYCERIN 50,000MCG/ D5W 250ML) 250 ML ASDIR IV Ondansetron HCl (ZOFRAN) 4 MG PACU ONCE PRN IV Protamine Sulfate (PROTAMINE SULFATE) 0 .STK-MED ONE IV (DC) Sodium Chloride (SODIUM CHLORIDE 0.9%) 1,000 ML .Q24H IV Clindamycin Phosphate (CLEOCIN 900 MG/NS 50 ML) 50 ML .STK-MED ONE IV ( DC) Sodium Chloride (SODIUM CHLORIDE 0.9% 100 ML) 10 0 ML .STK-MED ONE IV (DC ) Vancomycin HCl (VANCOMYCIN HCL) 0 .STK-MED ONE . ROUTE (DC) Lidocaine HCl (PRE-ATTACHED LTA KIT) 0 .STK-MED ONE TOPICAL (DC) Heparin Sodium (HEPARIN SODIUM) 0 .STK-MED ONE . ROUTE (DC) Lidocaine HCl (XYLOCAINE IV) 0 .STK-MED ONE IV ( DC) Thrombin (RECOTHROM) 0 .STK-MED ONE TOPICAL (DC) Acetaminophen (TYLENOL EXTRA STRENGTH) 0 .STK-ME D ONE .ROUTE (DC) Gabapentin (NEURONTIN) 0 .STK-MED ONE PO (DC) Fentanyl Citrate (SUBLIMAZE) 0 .STK-MED ONE IV ( DC) Propofol (DIPRIVAN 200MG/20ML INJECTION) 20 ML . STK-MED ONE IV (DC) Sodium Chloride (SODIUM CHLORIDE 0.9%) 500 ML .S TK-MED ONE IV (DC) Norepinephrine Bitartrate (NOREPINEPHRINE 8 MG/N S 250 ML) 250 ML .STK-MED ONE IV (DC) Nitroglycerin/Dextrose (NITROGLYCERIN 50,000MCG/ D5W 250ML) 250 ML .STK-MED ONE IV (DC) Dexamethasone Sodium Phosphate (DECADRON) 0 .STK -MED ONE .ROUTE (DC) Dextrose/Water (DEXTROSE 10% IN WATER) 250 ML DIR PRN IV (CKD) Heparin Sodium (HEPARIN SODIUM) 0 .STK-MED ONE . ROUTE (DC) Lidocaine HCl (XYLOCAINE) 0 .STK-MED ONE .ROUTE (DC) Ondansetron HCl (ZOFRAN) 0 .STK-MED ONE .ROUTE ( DC) Rocuronium [place] (ZEMURON) 0 .STK-MED ONE IV ( DC) Sevoflurane (ULTANE) 0 .STK-MED ONE INH (DC) Insulin Human Lispro (HUMALOG) 0 Q4HR SUBQ Vancomycin HCl (VANCOMYCIN HCL) 1,000 MG PREOP I V (DC) Sodium Chloride (SODIUM CHLORIDE 0.9%) 250 ML Verapamil HCl (ISOPTIN) 16.6 MG .Q24H ONE IV (CK D) Heparin Sodium (Porcine) (HEPARIN SODIUM) 1,660 UNIT Sodium Bicarbonate (SODIUM BICARBONATE) 0.7 ML Nitroglycerin/Dextrose (NITROGLYCERIN 50MG/D5W 250ML) 8.3 MG Lactated Ringer's (LACTATED RINGERS) 949.5 ML Metoprolol Tartrate (LOPRESSOR) 6.5 MG ASDIR PRN PO Acetaminophen (TYLENOL EXTRA STRENGTH) 1,000 MG PREOP ONCALL PO (DC) Lactated Ringer's (LACTATED RINGERS) 1,000 ML NE EOP ONCALL IV (DC) Lidocaine HCl (LIDOCAINE HCL/PF) 2 ML PREOP ONCA LL LOCAL (DC) Lidocaine HCl (LIDOCAINE HCL/PF) 2 ML PREOP ONCA LL LOCAL (DC) Sodium Chloride (SODIUM CHLORIDE 0.9%) 500 ML NE EOP ONCALL IV (DC) Sodium Chloride (SODIUM CHLORIDE 0.9%) 500 ML NE EOP ONCALL IV (DC) Sodium Chloride (SODIUM CHLORIDE 0.9%) 1,000 ML PREOP ONCALL IV (DC) Sodium Chloride (SODIUM CHLORIDE) 5 ML ASDIR PRN IV (DC) Sodium Chloride (SODIUM CHLORIDE) 10 ML ASDIR NE N IV (DC) Sodium Chloride (SODIUM CHLORIDE 0.9%) 250 ML DIR PRN IV (DC) Results Findings/Data: Laboratory Tests 07/21/22 0935: [Embedded Image Not Available] Laboratory Tests 07/21 0835 Chemistry Sodium (134 - 147 mEq/L) 142 Potassium (3.4 - 5.0 mEq/L) 4.5 Chloride (100 - 108 mEq/L) 107 Carbon Dioxide (21 - 33 mEq/l) 28 Anion Gap (0 - 20) 12 BUN (7 - 18 mg/dL) 19 H Creatinine (0.6 - 1.3 mg/dL) 1.1 Glomerular Filtr Rate (70 - 80) 52.1 L Glucose (70 - 110 mg/dL) 136 H Calcium (8.0 - 10.5 mg/dL) 8.7 Laboratory Tests 07/21 075 Coagulation Activated Coag Time (74 - 137 SEC) 287 H Laboratory Tests 07/21 09 Hematology Hgb (11.0 - 15.0 g/dL) 10.9 L Hct (33.0 - 45.0 %) 33.4 Microbiology: 07/19 113 NASAL: MRSA DNA Surveillance Screen - COMP Free Text Obj Notes Free Text Obj Notes: General appearance: Elderly female lying no acute distress, conversational and interactive HEENT: atraumatic, normocephalic, dry mucosal me mbranes Neck: full range of motion, supple/no meningismu s Cardiovascular: normal capillary refill, normal heart sounds, regular rate and rhythm Respiratory: aerating well, symmetric ex pansion, no acute respiratory distress Abdomen: soft, non-tender, no distention, no gua rding Extremities: pedal pulses palpable, moves all, n ormal range of motion, no clubbing, no cyanosis, no edema Musculoskeletal: normal inspection, no muscle sp asm 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: alert, oriented X 3, no facial droop or motor deficits, mild left lower face numbness Skin: dry, intact and clean left neck surgery dressing, NANO in place with minimal sanguinous output Diagnosis, Assessment Plan Diagnosis, Assessment Plan Problem list/A P: 1. Peripheral artery disease 2. S/P carotid endarterectomy 3. CAD (coronary artery disease) Plan discussed with: patient, family, co nsultants, nurse, interdisc care team, pharmacy/pharmacist Critical care time: Minutes: 39 Free text DxA P: 76-year-old female with history of CAD/PCI, PAD and bilateral carotid artery stenosis s/p right CEA last year, who underwent left CEA today on 07/21/2022. Surgery went well and nga arenas was transferred to CCU postop in a stable surgical condition. She complains of left tongue numbness but otherwise no other complaints reported like mandi st pain, shortness of breath, dizziness or weakness. Neuro: close neurochecks, hold off on imaging, p ain control Respiratory: sats well on NC, wean O2, CXR no ac [place] disease Cardiovascular: BP control per CT surgery, on ni troglycerin gtt Renal: Cr appears stable, monitor UOP and electr olytes GI: oral diet as tolerated, bowel regimen ID: no fevers or leukocytosis, preop Abx per pro tocol Hem: monitor Hgb and NANO output, no evidence of a ctive bleed Endo: blood glucose appears well controlled Misc: OOB as tolerated, DVT ppx with SCDs Electronically Signed by Chi Valencia MD on 04/08 at 0828 RPT #:[id number] END OF REPORT 2022-07-21 09:48:00-00:00 [facility] ([facility]) History Physical - Adult REPORT#:[id number] REPORT STATUS: Signed DATE:07/21/22 TIME: 947 PATIENT: MARLA CAMPOS UNIT #: [id number] ROOM/BED: [place] [id number] : 45 AGE: 76 SEX: F ATTEND: Reggie Gold MD ADM AUTHOR: Jackeline Loja * ALL edits or amendments must be made on the [employer]/computer document * Jackeline Loja 07/21/22 0948: History of Present Illness HPI HPI: This is a 76-year-old female with a past medical history of bilateral carotid artery stenosis, CAD, status post stent (04/2021 ), and peripheral arterial disease. She underwent right carotid end arterectomy in December 2021. She did well postoperatively. She is followed by Dr. Whatley as an outpatient. She presents today for procedure for left caroti d endarterectomy. On her heart catheterization completed January 12, 2022 Left heart catheterization also at that time showed left internal c arotid artery stenosis measuring 70 to 80% stenosis. She denies any dizziness, syncopal, other sympto ms. History Past medical history: Reports: Anemia, Coronary artery disease, Hypert ension, Transient ischemic attack, Dyslipidemia, Peptic ulcer disease. Past surgical history: Reports: Cholecystectomy, Hysterectomy, Knee pro cedure, PCI. Additional surgical history: Breast biopsy Sinus surgery Additional family history: Denies Alcohol use: Denies EtOH use Drug use: Denies recreational drugs Smoking status for patients 13 years old or olde r: Never Smoker Additional social history: Lives at home with her in a single-story home. No stairs to enter. She is ambulatory with a single-point cane. She no longer drives her assists her with any assistance at home . Medication/Allergy-Vaccine Hx Allergies: Coded Allergies: Corcoran And Derivatives (Severe, VOMITING 3) Penicillins (Severe, INJECTION SITE SWELLING 12/06) fludrocortisone (From FLORIN EF) (Severe, SEVERE RASH, SWELLING OF EYES 07/21/22) lansoprazole (From PREVACID) (Severe, NAUSEA, CH ILLS 07/21/22) meperidine (From DEMEROL) (Severe, VOMITING 0 12/06) Quinolones (Intermediate, RASH, FACIAL SWELLING 07/21/22) Sulfa (Sulfonamide Antibiotics) (Intermediate, R SONYA, EYE SWELLING 07/21/22) fluticasone furoate (From BR EO ELLIPTA) (Intermediate, HARD TO BREATH 07/21/22) rofecoxib (From VIOXX) (Intermediate, EYE AND CRISTINO DY SWELLING 07/21/22) sulfapyridine (Intermediate, EYE LID SWELLING ) vilanterol (From BREO ELLIPTA) (Intermediate, KHOURY RD TO BREATH 07/21/22) Iodinated Contrast Media (UNKNOWN 07/21/22) clotrimazole (Intermediate, UTI, RASH 07/21/22) gabapentin (Intermediate, DIZZINESS, NAUSEA, CON STIPATION 07/21/22) pregabalin (From LYRICA) (Intermediate, WATERY E YES 07/21/22) clarithromycin (From BIAXIN) (Mild, RASH, SORE T ONGUE 07/21/22) doxycycline (From PERIOSTAT) (Mild, ABDOMINAL PA IN 07/21/22) nabumetone (From RELAFEN) (Mild, ABDOMINAL PAIN 07/21/22) Review of Systems Constitutional: Denies: chills, fatigue, fever. Skin: Denies: bruising, contusion. Allergy/Immun: Denies: anaphylaxis, hives, itching. Eyes: Denies: itching, diplopia. ENT: Denies: ear ringing, earache, hearing loss, mout h pain. Respiratory: Denies: WARNER (dyspnea on exertion), non productiv e cough, productive cough ( sputum), SOB. Cardiovascular: Denies: chest pain, WARNER (dyspnea on exertion). GI: Denies: constipation, diarrhea. : Denies: dysuria, hematuria. Heme: Denies: bleeding, bruising. Endocrine: Denies: polydipsia, polyphagia. Neuro: Denies: change in LOC, confusion, dizziness. Psych: Denies: agitation, anxiety. All systems rev neg: except as marked Physical Exam VS/I O Vital Signs: Date Time Temp Pulse Resp B/P B/P Pulse O2 O2 F low FiO2 Mean Ox Delivery Rate 07/21 0630 97.4 60 16 159/71 99 24 hour I O ending at 0700: 07/21 0700 07/20 1900 Intake Total Output Total Balance Patient 68.182 kg Weight Weight Stated/Reported Measurement Method PATIENT WEIGHT: Weight (lb): 150 Weight (oz): 5.05 Weight (kg): 68.182 General appearance: alert, awake ENT: moist mucosal membranes Neck: full range of motion, non-tender Cardiovascular: normal capillary refill, regular rate rhythm Respiratory: clear to auscultation, no distress Abdomen/GI: soft, non-tender Extremities: moves all, no edema-all extremities , normal range of motion Musculoskeletal: full range of motion 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: alert, oriented X 3 Skin: dry, intact Results Findings/Data: Laboratory Tests: 07/21 07/21 0935 0751 Chemistry Sodium (134 - 147 mEq/L) 142 Potassium (3.4 - 5.0 mEq/L) 4.5 Chloride (100 - 108 mEq/L) 107 Carbon Dioxide (21 - 33 mEq/l) 28 Anion Gap (0 - 20) 12 BUN (7 - 18 mg/dL) 19 H Creatinine (0.6 - 1.3 mg/dL) 1.1 Glomerular Filtr Rate (70 - 80) 52.1 L Glucose (70 - 110 mg/dL) 136 H Calcium (8.0 - 10.5 mg/dL) 8.7 Coagulation Activated Coag Time (74 - 137 SEC) 287 H Hematology Hgb (11.0 - 15.0 g/dL) 10.9 L Hct (33.0 - 45.0 %) 33.4 Diagnosis, Assessment Plan Free Text DxA P Notes Free Text DxA P Notes: 76 yr Old female, presents with bilateral ICA st enosis, status post right internal carotid endarterectomy December 2021. The p atient has a left internal carotid artery occlusion 70 to 80%. She denies a ny symptoms of dizziness or other neurologic symptoms. Patient is scheduled for Left Carotid endarterec ramez today Labs reviewed Assessment/Plan 1) carotid artery Stenosis - L CEA today 2) PVD 3) CAD with previous PCI Continue Statin, Patient was seen ad examined by Dr Stephen gutierrez Pre-operatively. All Quesitons were answered. Patient scheduled for Left carotid endarterectom jannet. Robert Gold 08/07/22 1104: Attestations Physician Attestation Agree w/findings plan: I have seen and examined Ms. Campos. I agree wit h the findings and plan as documented by RUDDY Fonseca Electronically Signed by Jackeline Loja on 0 07/21/22 at 1455 at 1114 RPT #:[id number] END OF REPORT 2022-07-19 12:15:00-00:00 [id number] [place] [address] PATIENT NAME: MARLA CAMPOS ADMIT DATE: ACCOUNT NO: [id number] ROOM NO: AGE: 76 REPORT TYPE: eELECTROCARDIOGRAM REPORT SEX: F ADMITTING PHYSICIAN:Robert Gold MD ATTENDING PHYSICIAN:Robert Gold MD Order: [id number] Test Reason : PREOP Test Date/Time Stamp: MonJul 19 2022 12:15:01 Blood Pressure : / mmHG Vent. Rate : 064 BPM Atrial Rate : 064 BPM P-R Int : 150 ms QRS Dur : 094 ms QT Int : 414 ms P-R-T Axes : 060 042 061 degree s QTc Int : 427 ms Sinus rhythm with premature supraventricular com plexes Incomplete right bundle branch block Abnormal ECG PRE_OP Confirmed by JOSE R CALDERON MD ([id number]) on 3 1:01:20 PM Referred By: Dania Gold Confirmed by:JOSE R RIVERA MD at 1301 PATIENT NAME: MARLA CAMPOS 384 2022-01-14 14:28:00-00:00 [facility] Cardiothoracic Surgery Prog REPORT#:[id number] REPORT STATUS: Signed DATE:01/14/22 TIME: 1428 PATIENT: MARLA CAMPOS UNIT #: [id number] ROOM/BED: [place] [id number] : 45 AGE: 76 SEX: F ATTEND: Vasyl Evans DO ADM AUTHOR: Hallie Charles * ALL edits or amendments must be made on the [employer] document * General Post-op: day 1 Status post: Right carotid endarterectomy Subjective Chief complaint: Follow up R CEA Bilateral carotid stenosis Review of Systems Constitutional: Denies: chills, fever, malaise. Allergy/Immun: Denies: allergic reaction. Respiratory: Denies: SOB. GI: Denies: abdominal pain, nausea, vomiting. Heme: Denies: bleeding. Objective General VS/I O Last Documented: Result Date Time Pulse Ox 97 01/14 1300 B/P 128/70 01/14 1300 B/P Mean 95 01/14 1300 Pulse 68 01/14 1300 Resp 23 01/14 1300 O2 Delivery Room air 01/14 1210 Temp 98.2 01/14 1210 O2 Flow Rate 5 01/13 1404 24 hour I O ending at 0700: 01/14 0700 01/13 1900 Intake Total 300.00 Output Total 90 18 Balance 210.00 -18 Intake, IV 100.00 Intake, Oral 200 Number 1 Incontinent Voids Number Voids 1 Output, 15 18 Drainage Output, Urine 75 Patient 149 lb Weight Weight Bed scale Measurement Method PATIENT WEIGHT: Weight (lb): 148 Weight (oz): 12.99 Weight (kg): 67.500 Physical Exam General appearance: alert, oriented, mental stat us normal, no respiratory distress HEENT: anicteric Cardiovascular: normal heart sounds, regular rat e rhythm Respiratory: aerating well, symmetric expansion, no distress Abdomen: soft, non-tender Extremities: moves all 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: alert, oriented X 3, normal speech, n o motor deficits Current Medications Medications: Active Meds + DC'd Last 24 Hrs Clopidogrel Bisulfate (Plavix) 75 MG DAILY PO Spironolactone (ALDACTONE) 25 MG DAILY PRN PO Docusate Sodium (COLACE) 100 MG BID PO Mupirocin (BACTROBAN 2% 22 GM OINTMENT) 1 APPLIC BID NASAL Magnesium Sulfate (MAGNESIUM SULFATE 4GM/SWFI 10 0ML) 100 ML ONCE ONE IV (DC) Hydrocodone Bitart/Acetaminophen (NORCO 5/325) 1 TAB Q6H PRN PRN PO Hydralazine HCl (APRESOLINE) 10 MG Q6H PRN PRN I V Fentanyl Citrate (SUBLIMAZE) 0 .STK-MED ONE IV ( DC) Ondansetron HCl (ZOFRAN) 0 .STK-MED ONE IV (DC) Bisacodyl (DULCOLAX) 10 MG DAILY PRN PRN RECTAL Magnesium Hydroxide (MILK OF MAGNESIA) 30 ML Q6H PRN PRN PO Tramadol HCl (ULTRAM) 50 MG Q4H PRN PRN PO Fentanyl Citrate (SUBLIMAZE) 100 MCG PACU Q10MIN PRN PRN IV (DC) Fentanyl Citrate (SUBLIMAZE) 50 MCG PACU Q10MIN PRN PRN IV (DC) Hydralazine HCl (APRESOLINE) 2 MG PACU Q10MIN NE N PRN IV (DC) Hydrocodone Bitart/Acetaminophen (NORCO 5/325) 1 TAB PACU ONCE PO (DC) Hydromorphone HCl (DILAUDID) 1 MG PACU Q10MIN NE N PRN IV (DC) Hydromorphone HCl (DILAUDID) 0.5 MG PACU Q5MIN P RN PRN IV (DC) Insulin Human Lispro (HUMALOG) 0 PACU ONCE PRN S UBQ (DC) Labetalol HCl (LABETALOL HCL) 5 MG PACU Q10MIN P RN PRN IV (DC) Meperidine HCl (DEMEROL 50MG/ML) 12.5 MG PACU ON CE PRN IV (DC) Morphine Sulfate (morphine SULFATE) 2 MG PACU Q1 0MIN PRN PRN IV (DC) Ondansetron HCl (ZOFRAN) 4 MG PACU ONCE PRN IV ( DC) Promethazine HCl (PHENERGAN) 25 MG PACU ONCE PRN PO (DC) Ropivacaine (NAROPIN 0.5% 150 MG/30mL) 150 MG DIR PRN LOCAL (DC) Tramadol HCl (ULTRAM) 50 MG PACU ONCE PO (DC) Famotidine (PEPCID) 20 MG DAILY PRN PO Aspirin (ASPIRIN) 81 MG DAILY PO Cefazolin Sodium (KEFZOL OR ANCEF) 1 GM PREOP PACK PULLER IV (DC) Sodium Chloride (SODIUM CHLORIDE) 10 ML Atorvastatin Calcium (LIPITOR) 40 MG BEDTIME PO Acetaminophen (TYLENOL) 650 MG Q4H PRN PRN PO Ondansetron HCl (ZOFRAN) 4 MG Q4H PRN PRN IV Results Findings/Data: Laboratory Tests 01/14 1740 Chemistry Sodium (134 - 147 mEq/L) 138 142 Potassium (3.4 - 5.0 mEq/L) 3.9 4.0 Chloride (100 - 108 mEq/L) 110 H 113 H Carbon Dioxide (21 - 33 mEq/l) 26 25 Anion Gap (0 - 20) 6 8 BUN (7 - 18 mg/dL) 25 H 29 H Creatinine (0.6 - 1.3 mg/dL) 1.0 1.0 Glomerular Filtr Rate (70 - 80) 53.9 L 53.9 L Glucose (70 - 110 mg/dL) 103 133 H Calcium (8.0 - 10.5 mg/dL) 8.2 8.0 Ionized Calcium Ayden (1.12 - 1.32 MMOL/L) 1.21 Phosphorus (2.5 - 4.9 MG/DL) 3.1 Magnesium (1.80 - 2.40 mg/dL) 2.54 H 1.47 L Laboratory Tests 01/14 01/13 0430 1740 Hematology WBC (4.5 - 11.0 x10 3/uL) 11.8 H 14.3 H RBC (3.54 - 5.02 x10 6/uL) 3.27 L 3.37 L Hgb (11.0 - 15.0 g/dL) 10.1 L 10.5 L Hct (33.0 - 45.0 %) 30.0 L 31.2 L MCV (81.0 - 99.0 fL) 91.7 92.6 MCH (27.0 - 33.0 pg) 30.9 31.2 MCHC (33.0 - 37.0 g/dL) 33.7 33.7 RDW (11.5 - 14.5 %) 13.7 13.8 Plt Count (150 - 400 x10 3/uL) 128 L 128 L MPV (7.0 - 9.0 fL) 10.6 H 10.4 H Neut % (Auto) (56.0 - 77.0 %) 72.0 88.8 H Lymph % (Auto) (14.0 - 32.0 %) 17.4 4.9 L [place] % (Auto) (4.8 - 9.0 %) 9.8 H 4.9 Eos % (Auto) (0.3 - 3.7 %) 0.0 L 0.0 L Baso % (Auto) (0.0 - 2.0 %) 0.3 0.1 Neut # (Auto) (2.0 - 7.6 x10 3/uL) 8.53 H 12.68 H Lymph # (Auto) (1.0 - 3.8 x10 3/uL) 2.06 0.70 L [place] # (Auto) (0.1 - 0.8 x10 3/uL) 1.16 H 0.70 Eos # (Auto) (0.0 - 0.2 x10 3/uL) 0.00 0.00 Baso # (Auto) (0.0 - 0.2 x10 3/uL) 0.03 0.02 Abs Immat Gran (auto) (0.00 - 0.03 x10 3/uL) 0. 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 She was found to khoury ve severe bilateral carotid stenosis with right ICA at 90 to 95% stenosis an d left ICA 70 to 80%. CV surgery consulted for carotid endarterectomy. PLAN Patient had severe bilateral carotid stenosis, r ight greater than left. She will benefit from carotid endarterectomy . Dr. Gold explained to the patient the procedure, risks involved, benefits, complic ations and alternatives. Patient acknowledged understanding and is selene cabral to proceed. She will be admitted to the hospital for right C EA tomorrow Please obtain consent N.p.o. after midnight 01/13 S/p right carotid endarterectomy 01/14 No postoperative complications Neuro exam stable, no cranial nerve deficit. Den ies headache NANO with minimal output, discontinued this sergio cabral Resume Plavix OK to discharge home from CV surgery sta ndpoint. Follow-up in clinic in 1 to 2 weeks Consultants: cardiology, critical/administrative support assoc, h ospitalist, thoracic surgery at 0802 at 0740 RPT #:[id number] END OF REPORT 2022-01-14 13:49:00-00:00 [facility] ([facility]) Discharge Summary REPORT#:[id number] REPORT STATUS: Signed DATE:01/14/22 TIME: 134 PATIENT: MARLA CAMPOS UNIT #: [id number] ROOM/BED: [place] [id number] : 45 AGE: 76 SEX: F ATTEND: Vasyl Evans DO ADM AUTHOR: Rj Evans DO * ALL edits or amendments must be made on the el [employer]/computer document * General Information Free Text A P: [place] 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 reviewed, no records Date of admission: Observation Start Date: Date of admission: 01/12/22 Discharge date: 01/14/22 Discharge diagnosis: Severe bilateral carotid stenosis status post ri ght carotid endarterectomy Hypertension Hyperlipidemia History of gastric ulcer Hospital course: Severe bilateral carotid stenosis * Status post right carotid endarterectomy on 01/13/2022, CV surgery has seen the patient * Advance diet per surgery * Plavix resumed * Subsequently cleared by CV surgery for discharge and ongoing outpatient follow -up Hypertension * Controlled, will continue to monitor Hyperlipidemia * Home statin resumed History of gastric ulcer * Resume home PPI DVT prophylaxis: SCDs Consultants: cardiology, critical/administrative support assoc, h ospitalist, thoracic surgery Med Rec Med Rec Discharge meds: Continue taking these medications: ASPIRIN EC (ECOTRIN) 81 MG TAB.EC 81 MILLIGRAM ORAL DAILY. [MAGNESIUM GLYCENATE] 120 MG 2 TABLET ORAL THREE TIMES A DAY. UBIDECARENONE (CO Q-10) 100 MG CAP 100 MILLIGRAM ORAL TWICE DAILY. DOCUSATE SODIUM (COLACE) 100 MG CAP 100 MILLIGRAM ORAL DAILY. as needed for CONSTIP ATION [PEARLS PROBIOTIC] 1 TABLET ORAL DAILY. [COSAMIN ASU JOINT ] 1 TABLET ORAL DAILY. Instructions: JOINT HEALTH ONE A DAY [MOVE FREE JOINT ] 1 TABLET ORAL DAILY. Instructions: JOINT HEALTH ONE A DAY [TURMERIC ] 1,000 MILLIGRAM ORAL DAILY. ATORVASTATIN (LIPITOR) 40 MG TAB 40 MILLIGRAM ORAL BEDTIME. CLOPIDOGREL (PLAVIX) 75 MG TAB 75 MILLIGRAM ORAL DAILY. Days = 90 Qty = 90 LEVOCETIRIZINE (XYZAL) 5 MG TAB 5 MILLIGRAM ORAL DAILY. PANTOPRAZOLE DR (PROTONIX) 40 MG TAB.DR 40 MILLIGRAM ORAL DAILY. SPIRONOLACTONE (ALDACTONE) 25 MG TAB 25 MILLIGRAM ORAL DAILY. as needed for EDEMA METOLAZONE (ZAROXOLYN) 5 MG TAB 5 MILLIGRAM ORAL DAILY. as needed for FLUID SWE LLING [PROMETHAZINE DM] (Unknown Strength) Unknown Dose as needed for COUGH Instructions: TAKES 5-10MLS EVERY 6 HOURS PRN COUGH. [ALBUTEROL ] as needed for SOB Instructions: ALBUTEROL 0.083 NEB NEPHRON, USE 1 VIAL IN NEBU LIZER 4 TIMES A DAY PRN SOB. FAMOTIDINE (PEPCID) 20 MG TAB 20 MILLIGRAM ORAL BEDTIME. [VITAMIN D3 ] 25 MILLIGRAM DAILY. POTASSIUM CHLORIDE ER (KLOR-CON 10) 10 MEQ TAB.S A 10 MILLIEQUIVALENT ORAL DAILY. as needed for WH EN TAKES METOLAZONE Start taking the following new medications: ACETAMINOPHEN/CODEINE (TYLENOL WITH CODEINE #3 3 00/30 MG) 300 MG-30 MG TAB 1 TABLET ORAL EVERY 6 HOURS NEEDED. as neede d for ACUTE PAIN Qty = 15 No Refills Discharge Instructions PCP )( Follow up labs, proc, tx: Do not drive or operate heavy machinery on narco tic pain medication. Wean off pain medication as soon as pain controlled. Take over the counter stool softene r or laxative while on pain medication to prevent co nstipation. Post operative carotid endarectomy instructions per CV surgery. Keep a log of your blood pressure a nd heart rate at least twice a day for your PCP. Continue to monitor your complete blood count with your PCP to ensure co mpleteness and stability on follow up. )( Discharge to: Home/Self Care Discharge Instructions Additional Discharge Routines: PCP Follow-Up, Co nsultant Follow-Up, F/U Labs/ Procedures )( Diet: Cardiac )( Activity: Light Duty Follow-up Appointments PCP follow up: PCP: Garth Hopkins MD PCP follow up timeframe: In 3 days Attending Physician: Attending Physician: Rj vEans DO Consulting provider 1: Provider 1: Devon Whatley MD Specialty: CardiologyInterventional Consult follow up timeframe: In 1-2 weeks Special instructions: CALL OFFICE TO SCHEDULE APPT Consulting provider 2: Provider 2: Robert Gold MD Specialty: Thoracic Surgery Follow up timeframe: In 1-2 weeks Quality: Discharge Advanced Care Plan 65 or Older Discussed with: patient Electronically Signed by Rj Evans DO on 08/07 at 1547 RPT #:[id number] END OF REPORT 2022-01-14 13:45:00-00:00 [facility] ([facility] Hospitalist Progress Note REPORT#:[id number] REPORT STATUS: Signed DATE:01/14/22 TIME: 1345 PATIENT: MARLA CAMPOS UNIT #: [id number] ROOM/BED: [place] [id number] : 45 AGE: 76 SEX: F ATTEND: Vasyl Evans DO ADM AUTHOR: Rj Evans DO * ALL edits or amendments must be made on the [employer] document * See Addendum Subjective Comments: Patient seen and examined in the CCU. Denies any new complaints. Status post right carotid endarterectomy. at bedside . Objective General VS/I O: Vital Signs: Date Time Temp Pulse Resp B/P B/P Pulse O2 O2 F low FiO2 Mean Ox Delivery Rate 01/14 1300 68 23 128/70 95 97 07/01 1223 69 18 150/66 95 96 07/01 1210 98.2 70 18 168/74 105 98 Room air 07/ 1201 70 18 168/74 107 98 07/01 1141 64 16 157/70 100 98 07/01 1001 74 23 133/112 117 98 07/01 0901 71 27 121/58 83 98 07/01 0816 65 16 143/63 91 96 07/01 0801 98.1 61 19 147/64 91 96 Room air 07/01 0643 61 19 147/64 92 96 07/01 0030 59 15 131/52 80 94 07/01 0000 98.6 87 30 148/60 93 06/30 2330 55 12 138/54 85 94 06/30 2300 63 14 137/55 84 95 06/30 2230 56 14 132/53 81 94 06/30 2214 66 38 135/56 85 95 06/30 2200 78 22 139/57 88 95 06/30 2145 67 18 136/55 84 94 06/30 2130 60 15 133/53 82 95 06/30 2115 56 14 131/54 80 94 06/30 2100 60 17 137/58 87 95 06/30 2045 60 15 132/55 83 94 06/30 2030 58 16 137/57 85 94 01/13 2015 66 27 141/61 91 95 01/14 2000 98.2 60 18 134/57 84 95 30 1945 61 18 137/58 87 96 30 1930 74 25 143/61 93 97 30 1915 66 20 140/59 89 96 30 1900 71 23 137/57 87 94 06/30 1845 59 15 133/55 83 95 /30 1830 65 19 133/55 84 96 30 1815 61 17 129/53 81 94 30 1800 62 15 135/56 85 96 30 1745 62 18 134/54 83 97 30 1730 61 18 128/51 79 96 30 1727 62 25 131/52 82 96 30 1715 69 19 131/54 84 97 30 1705 98.0 67 22 139/63 90 98 01/13 1629 60 16 120/46 95 Room air 01/13 1614 62 16 122/48 96 Room air 01/13 1559 60 15 123/49 95 Room air 01/13 1544 62 17 120/50 95 Room air 01/13 1529 70 19 122/56 96 Room air 01/13 1514 64 14 106/50 95 Room air 01/13 1459 60 18 115/56 97 Room air 01/13 1444 62 20 116/59 98 Room air 01/13 1429 56 15 99/52 98 Room air 01/13 1414 60 18 110/40 98 Room air 01/13 1409 66 19 120/44 98 Room air 01/13 1404 66 19 126/46 100 Simple 5 mask 01/13 1359 66 16 138/54 100 Simple 6 mask 01/13 1354 97.7 70 14 156/58 100 Simple 8 mask 24 hour I O ending at 0700: 07/01 0700 0630 1900 Intake Total 300.00 Output Total 90 18 Balance 210.00 -18 Intake, IV 100.00 Intake, Oral 200 Number 1 Incontinent Voids Number Voids 1 Output, 15 18 Drainage Output, Urine 75 Patient 67.5 kg Weight Weight Bed scale Measurement Method PATIENT WEIGHT: Weight (lb): 148 Weight (oz): 12.99 Weight (kg): 67.500 Medications: Active Meds + DC'd Last 24 Hrs Clopidogrel Bisulfate (Plavix) 75 MG DAILY PO Spironolactone (ALDACTONE) 25 MG DAILY PRN PO Docusate Sodium (COLACE) 100 MG BID PO Mupirocin (BACTROBAN 2% 22 GM OINTMENT) 1 APPLIC BID NASAL Magnesium Sulfate (MAGNESIUM SULFATE 4GM/SWFI 10 0ML) 100 ML ONCE ONE IV (DC) Hydrocodone Bitart/Acetaminophen (NORCO 5/325) 1 TAB Q6H PRN PRN PO Hydralazine HCl (APRESOLINE) 10 MG Q6H PRN PRN IV Fentanyl Citrate (SUBLIMAZE) 0 .STK-MED ONE IV ( DC) Ondansetron HCl (ZOFRAN) 0 .STK-MED ONE IV (DC) Bisacodyl (DULCOLAX) 10 MG DAILY PRN PRN RECTAL Magnesium Hydroxide (MILK OF MAGNESIA) 30 ML Q6H PRN PRN PO Tramadol HCl (ULTRAM) 50 MG Q4H PRN PRN PO Fentanyl Citrate (SUBLIMAZE) 100 MCG PACU Q10MIN PRN PRN IV (DC) Fentanyl Citrate (SUBLIMAZE) 50 MCG PACU Q10MIN PRN PRN IV (DC) Hydralazine HCl (APRESOLINE) 2 MG PACU Q10MIN NE N PRN IV (DC) Hydrocodone Bitart/Acetaminophen (NORCO 5/325) 1 TAB PACU ONCE PO (DC) Hydromorphone HCl (DILAUDID) 1 MG PACU Q10MIN NE N PRN IV (DC) Hydromorphone HCl (DILAUDID) 0.5 MG PACU Q5MIN P RN PRN IV (DC) Insulin Human Lispro (HUMALOG) 0 PACU ONCE PRN S UBQ (DC) Labetalol HCl (LABETALOL HCL) 5 MG PACU Q10MIN P RN PRN IV (DC) Meperidine HCl (DEMEROL 50MG/ML) 12.5 MG PACU ON CE PRN IV (DC) Morphine Sulfate (morphine SULFATE) 2 MG PACU Q1 0MIN PRN PRN IV (DC) Ondansetron HCl (ZOFRAN) 4 MG PACU ONCE PRN IV ( DC) Promethazine HCl (PHENERGAN) 25 MG PACU ONCE PRN PO (DC) Ropivacaine (NAROPIN 0.5% 150 MG/30mL) 150 MG DIR PRN LOCAL (DC) Tramadol HCl (ULTRAM) 50 MG PACU ONCE PO (DC) Famotidine (PEPCID) 20 MG DAILY PRN PO Aspirin (ASPIRIN) 81 MG DAILY PO Cefazolin Sodium (KEFZOL OR ANCEF) 1 GM PREOP PACK PULLER IV (DC) Sodium Chloride (SODIUM CHLORIDE) 10 ML Atorvastatin Calcium (LIPITOR) 40 MG BEDTIME PO Acetaminophen (TYLENOL) 650 MG Q4H PRN PRN PO Ondansetron HCl (ZOFRAN) 4 MG Q4H PRN PRN IV Physical Exam General appearance: alert, awake, oriented Head/Eyes: clear cornea, EOMI ENT: moist mucosal membranes, normal pharynx Neck: non-tender, supple/no meningismus Cardiovascular: normal heart sounds, regular rat e rhythm Respiratory: aerating well, clear to auscultatio n, symmetric expansion Abdomen: non-tender, normal bowel sounds, soft, no distention Extremities: moves all, no edema Musculoskeletal: normal inspection, painless ran ge of motion 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: alert, oriented X 3, no motor deficit s, no sensory deficits Skin: dry, intact Results Findings/Data: Laboratory Tests 01/14 01/13 01/13 0430 1740 1419 Chemistry Sodium (134 - 147 mEq/L) 138 142 140 Potassium (3.4 - 5.0 mEq/L) 3.9 4.0 3.5 Chloride (100 - 108 mEq/L) 110 H 113 H 112 H Carbon Dioxide (21 - 33 mEq/l) 26 25 25 Anion Gap (0 - 20) 6 8 7 BUN (7 - 18 mg/dL) 25 H 29 H 26 H Creatinine (0.6 - 1.3 mg/dL) 1.0 1.0 1.0 Glomerular Filtr Rate (70 - 80) 53.9 L 53.9 L 5 3.9 L Glucose (70 - 110 mg/dL) 103 133 H 130 H Calcium (8.0 - 10.5 mg/dL) 8.2 8.0 8.3 Ionized Calcium Ayden (1.12 - 1.32 MMOL/L) 1.21 Phosphorus (2.5 - 4.9 MG/DL) 3.1 Magnesium (1.80 - 2.40 mg/dL) 2.54 H 1.47 L Laboratory Tests 01/14 01/13 01/13 0430 1740 1419 Hematology WBC (4.5 - 11.0 x10 3/uL) 11.8 H 14.3 H RBC (3.54 - 5.02 x10 6/uL) 3.27 L 3.37 L Hgb (11.0 - 15.0 g/dL) 10.1 L 10.5 L 10.4 L Hct (33.0 - 45.0 %) 30.0 L 31.2 L 30.5 L MCV (81.0 - 99.0 fL) 91.7 92.6 MCH (27.0 - 33.0 pg) 30.9 31.2 MCHC (33.0 - 37.0 g/dL) 33.7 33.7 RDW (11.5 - 14.5 %) 13.7 13.8 Plt Count (150 - 400 x10 3/uL) 128 L 128 L MPV (7.0 - 9.0 fL) 10.6 H 10.4 H Neut % (Auto) (56.0 - 77.0 %) 72.0 88.8 H Lymph % (Auto) (14.0 - 32.0 %) 17.4 4.9 L [place] % (Auto) (4.8 - 9.0 %) 9.8 H 4.9 Eos % (Auto) (0.3 - 3.7 %) 0.0 L 0.0 L Baso % (Auto) (0.0 - 2.0 %) 0.3 0.1 Neut # (Auto) (2.0 - 7.6 x10 3/uL) 8.53 H 12.68 H Lymph # (Auto) (1.0 - 3.8 x10 3/uL) 2.06 0.70 L [place] # (Auto) (0.1 - 0.8 x10 3/uL) 1.16 H 0.70 Eos # (Auto) (0.0 - 0.2 x10 3/uL) 0.00 0.00 Baso # (Auto) (0.0 - 0.2 x10 3/uL) 0.03 0.02 Abs Immat Gran (auto) (0.00 - 0.03 x10 3/uL) 0. 06 H 0.18 H Add Manual Diff NO NO Immature Gran % (0.0 - 2.0 %) 0.5 1.3 Nucleated RBC % (0 - 0 %) 0.0 0.0 Nucleated RBCs # (Man) (0.0 - 0.1 x10 3/uL) 0.0 0 0.00 Treatment Prophylaxis Treatment Prophylaxis Drain(s)/tube(s): Drain(s)/tube(s): NANO Diagnosis, Assessment Plan Consultants: cardiology, critical/administrative support assoc, h ospitalist, thoracic surgery Free Text DxA P Notes Free text DxA P notes: Severe bilateral carotid stenosis * Status post right carotid endarterectomy on 01/13/2022, CV surgery has seen the patient * Advance diet per surgery * Resume Plavix antiplatelet therapy when okay w ith surgery * Continue postop monitoring in the CCU with ICC following Hypertension * Controlled, will continue to monitor Hyperlipidemia * Home statin resumed History of gastric ulcer * Resume home PPI DVT prophylaxis: SCDs Quality: Gen Med Crit Care VTE Prophylaxis VTE prophylaxis initiated: yes Current Medications Current medication review: I attest that the foregoing medication list in t he medical record is true, accurate, and complete to the best of my knowled ge. Advanced Care Plan 65 or Older Discussed with: patient Discussion included: living will, power of attor gamal, code status Electronically Signed by Rj Evans DO on 08/07 at 1347 Addendum 1: 01/14/22 1356 by Rj Evans DO Received call from RN that C V surgery has cleared the patient for discharge home later today. Patient's pain is currently controlled however did receive a dose of [place] earlier this morning. RN to provide add itional education regarding safe pain medication usage a nd will also send patient with instructions for safe pain medication usage. We will place a c onditional discharge as the RN reports CV surgery wishes to wait a few more hours until the patient is discharged. Electronically Signed by Rj Evans DO on 08/07 at 1357 RPT #:[id number] END OF REPORT 2022-01-14 09:03:00-00:00 [facility] Cardiology Consultation REPORT#:[id number] REPORT STATUS: Signed DATE:01/14/22 TIME: 902 PATIENT: MARLA CAMPOS UNIT #: [id number] ROOM/BED: [facility] : 45 AGE: 76 SEX: F ATTEND: Vasyl Evans DO ADM AUTHOR: Sinai Gutierrez CHIEF CONTROLLER * ALL edits or amendments must be made on the [employer]/computer document * Sinai Gutierrez 01/14/22 0903: History of Present Illness HPI Requesting Clinician: Sudheer Sterling NP Reason for consult: CAD Chief complaint: Doing ok PCP: PCP: Garth Hopkins MD HPI: Ms Campos is a 76 y/o F w/ P MHx CAD s/p PCI x 3 stents, CVA w/ Lt side weakness, HTN, HLD, PAD s/p Rt SFA w/ stent came in 01/12 f or cartoid angiogram d/t intermittent dizziness and l ightheaded. Her carotid angiogram showed Rt ICA 90- 95% stenosis and left ICA 70-80%. She underwent right CEA 01/13. Pt is doing well post op. Denied chest discomfort, no sob, n o orthopnea. Reports mild tenderness at incision site. No n/v/d. Telemetry shows nsr. Currently, she is in RA, sitting in chair w/o di stress. is at bedside. History - Adult longitudinal Past medical history: Reports: Anemia, Coronary artery disease, Hypert ension, Transient ischemic attack, Dyslipidemia, Peptic ulcer disease. Past surgical history: Reports: Cholecystectomy, Hysterectomy, Knee pro cedure, PCI. Additional surgical history: Breast biopsy Sinus surgery Additional family history: Denies Alcohol use: Denies EtOH use Drug use: Denies recreational drugs Smoking status: Smoking status for patients 13 years old or old er: Former Smoker Date last smoked: 07/17/89 Years smoked: 10 Pack years: 0 Additional social history: Lives at home with her in a single-story home. No stairs to enter. She is ambulatory with a single-point cane. She no longer drives her assists her with any assistance at home . Home medications: Home Medications: ASPIRIN EC (ECOTRIN) 81 MG PO DAILY [MAGNESIUM GLYCENATE] 2 TAB PO TID UBIDECARENONE (CO Q-10) 100 MG PO BID DOCUSATE SODIUM (COLACE) 100 MG PO DAILY PRN CON STIPATION [PEARLS PROBIOTIC] 1 TAB PO DAILY [COSAMIN ASU JOINT ] 1 TAB PO DAILY [MOVE FREE JOINT ] 1 TAB PO DAILY [TURMERIC ] 1,000 MG PO DAILY ATORVASTATIN (LIPITOR) 40 MG PO BEDTIME LEVOCETIRIZINE (XYZAL) 5 MG PO DAILY PANTOPRAZOLE DR (PROTONIX) 40 MG PO DAILY METOLAZONE (ZAROXOLYN) 5 MG PO DAILY PRN FLUID S WELLING [PROMETHAZINE DM] (Unknown Dose) PRN COUGH [ALBUTEROL ] FAMOTIDINE (PEPCID) 20 MG PO BEDTIME [VITAMIN D3 ] 25 MG DAILY SPIRONOLACTONE (ALDACTONE) 25 MG PO DAILY PRN ED DAY POTASSIUM CHLORIDE ER (KLOR-CON 10) 10 MEQ PO DA LIVAN PRN WHEN TAKES METOLAZONE CLOPIDOGREL (PLAVIX) 75 MG PO DAILY ACETAMINOPHEN/CODEINE (TYLENOL WITH CODE INE #3 300/30 MG) 1 TAB PO Q6H PRN PRN ACUTE PAIN Allergies: Coded Allergies: Corcoran And Derivatives (Severe, VOMITING 2) Penicillins (Severe, INJECTION SITE SWELLING ) fludrocortisone (From FLORIN EF) (Severe, SEVERE RASH, SWELLING OF EYES 08/02/21) lansoprazole (From PREVACID) (Severe, NAUSEA, CH ILLS 08/02/21) meperidine (From DEMEROL) (Severe, VOMITING 07/17 02/04) Quinolones (Intermediate, RASH, FACIAL SWELLING 05/07/21) Sulfa (Sulfonamide Antibiotics) (Intermediate, R SONYA, EYE SWELLING 08/02/21) fluticasone furoate (From BR EO ELLIPTA) (Intermediate, HARD TO BREATH 05/07/21) rofecoxib (From VIOXX) (Intermediate, EYE AND CRISTINO DY SWELLING 05/07/21) sulfapyridine (Intermediate, EYE LID SWELLING ) vilanterol (From BREO ELLIPTA) (Intermediate, KHOURY RD TO BREATH 05/07/21) Iodinated Contrast Media (UNKNOWN 08/02/21) clotrimazole (Intermediate, UTI, RASH 08/02/21) gabapentin (Intermediate, DIZZINESS, NAUSEA, CON STIPATION 08/02/21) pregabalin (From LYRICA) (Intermediate, WATERY E YES 08/02/21) clarithromycin (From BIAXIN) (Mild, RASH, SORE T ONGUE 08/02/21) doxycycline (From PERIOSTAT) (Mild, ABDOMINAL PA IN 08/02/21) nabumetone (From RELAFEN) (Mild, ABDOMINAL PAIN 08/02/21) Ambulatory status: Patient uses cane occasionall y Review of Systems Constitutional: Denies: chills, fatigue, fever, generalized weak ness. Skin: Denies: diaphoresis, ecchymosis, swelling. Allergy/Immun: Denies: anaphylaxis, rhinorrhea. Eyes: Denies: redness, discharge, visual loss/blurred. ENT: Denies: mouth pain, nasal congestion. Respiratory: Denies: WARNER (dyspnea on exertion), parox nocturn al dyspnea, pleuritic pain, productive cough (sputum). Cardiovascular: Denies: chest pain, dyspnea on exertion, edema, orthopnea, palpitations, parox noctural dyspnea. GI: Denies: diarrhea, dysphagia, melena, nausea. : Denies: hematuria, nocturia. Musculoskeletal: Denies: extremity swelling, thoracic pain. Heme: Denies: bleeding, bruising. Endocrine: Denies: cold intolerance, heat intolerance. Neuro: dizziness, lightheaded. Denies: change in LOC. Psych: Denies: change in mental status. Additional notes: unsteady gait Objective General VS/I O: Vital Signs: Date Time Temp Pulse Resp B/P B/P Pulse O2 O2 F low FiO2 Mean Ox Delivery Rate 01/14 1300 68 23 128/70 95 97 01/14 1223 69 18 150/66 95 96 01/14 1210 98.2 70 18 168/74 105 98 Room air 01/14 1201 70 18 168/74 107 98 / 1141 64 16 157/70 100 98 01/14 1001 74 23 133/112 117 98 01/14 0901 71 27 121/58 83 98 07/ 0816 65 16 143/63 91 96 / 0801 98.1 61 19 147/64 91 96 Room air 01/14 0643 61 19 147/64 92 96 07/ 0030 59 15 131/52 80 94 07/ 0000 98.6 87 30 148/60 93 01/13 2330 55 12 138/54 85 94 06/30 2300 63 14 137/55 84 95 /30 2230 56 14 132/53 81 94 06/30 2214 66 38 135/56 85 95 /30 2200 78 22 139/57 88 95 /30 2145 67 18 136/55 84 94 /30 2130 60 15 133/53 82 95 /30 2115 56 14 131/54 80 94 06/30 2100 60 17 137/58 87 95 06/30 2045 60 15 132/55 83 94 /30 2030 58 16 137/57 85 94 30 2014 66 27 141/61 91 95 30 1999 98.2 60 18 134/57 84 95 30 1945 61 18 137/58 87 96 /30 1930 74 25 143/61 93 97 /30 1915 66 20 140/59 89 96 /30 1900 71 23 137/57 87 94 /30 1845 59 15 133/55 83 95 /30 1830 65 19 133/55 84 96 /30 1815 61 17 129/53 81 94 30 1800 62 15 135/56 85 96 /30 1745 62 18 134/54 83 97 /30 1730 61 18 128/51 79 96 30 1727 62 25 131/52 82 96 /30 1715 69 19 131/54 84 97 /30 1705 98.0 67 22 139/63 90 98 06/30 1629 60 16 120/46 95 Room air /30 1614 62 16 122/48 96 Room air 30 1559 60 15 123/49 95 Room air 01/13 1544 62 17 120/50 95 Room air 30 1529 70 19 122/56 96 Room air 30 1514 64 14 106/50 95 Room air /30 1459 60 18 115/56 97 Room air 24 hour I O ending at 0700: 01/13 1900 07/01 0700 Intake Total 300.00 Output Total 18 90 Balance -18 210.00 Intake, IV 100.00 Intake, Oral 200 Number 1 Incontinent Voids Number Voids 1 Output, 18 15 Drainage Output, Urine 75 Patient 67.5 kg Weight Weight Bed scale Measurement Method PATIENT WEIGHT: Weight (lb): 148 Weight (oz): 12.99 Weight (kg): 67.500 Physical Exam General appearance: alert, awake, oriented, no a cute distress, pleasant, conversational, mental status normal, no respira tory distress Head/Eyes: atraumatic, clear cornea ENT: moist mucosal membranes Neck: right neck w/ bulk dressing w/ NANO w/ low o utpt note. Respiratory: clear to auscultation, no distress Abdomen: soft, non-tender, normal bowel sounds, no distention Genitourinary: no flank pain, no urinary cathete r Upper extremity: UE assessment: normal capillary refill, normal temperature, no edema Lower extremity: LE assessment: normal temperature, no edema Musculoskeletal: normal inspection, left side slightly weaker than right as 9: 10. 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 Psychiatry: normal affect Results Findings/Data: Laboratory Tests 01/13 01/14 1740 0430 Chemistry Sodium (134 - 147 mEq/L) 142 138 Potassium (3.4 - 5.0 mEq/L) 4.0 3.9 Chloride (100 - 108 mEq/L) 113 H 110 H Carbon Dioxide (21 - 33 mEq/l) 25 26 Anion Gap (0 - 20) 8 6 BUN (7 - 18 mg/dL) 29 H 25 H Creatinine (0.6 - 1.3 mg/dL) 1.0 1.0 Glomerular Filtr Rate (70 - 80) 53.9 L 53.9 L Glucose (70 - 110 mg/dL) 133 H 103 Calcium (8.0 - 10.5 mg/dL) 8.0 8.2 Ionized Calcium [place] (1.12 - 1.32 MMOL/L) 1.21 Phosphorus (2.5 - 4.9 MG/DL) 3.1 Magnesium (1.80 - 2.40 mg/dL) 1.47 L 2.54 H Laboratory Tests 01/13 01/14 1740 0430 Hematology WBC (4.5 - 11.0 x10 3/uL) 14.3 H 11.8 H RBC (3.54 - 5.02 x10 6/uL) 3.37 L 3.27 L Hgb (11.0 - 15.0 g/dL) 10.5 L 10.1 L Hct (33.0 - 45.0 %) 31.2 L 30.0 L MCV (81.0 - 99.0 fL) 92.6 91.7 MCH (27.0 - 33.0 pg) 31.2 30.9 MCHC (33.0 - 37.0 g/dL) 33.7 33.7 RDW (11.5 - 14.5 %) 13.8 13.7 Plt Count (150 - 400 x10 3/uL) 128 L 128 L MPV (7.0 - 9.0 fL) 10.4 H 10.6 H Neut % (Auto) (56.0 - 77.0 %) 88.8 H 72.0 Lymph % (Auto) (14.0 - 32.0 %) 4.9 L 17.4 [place] % (Auto) (4.8 - 9.0 %) 4.9 9.8 H Eos % (Auto) (0.3 - 3.7 %) 0.0 L 0.0 L Baso % (Auto) (0.0 - 2.0 %) 0.1 0.3 Neut # (Auto) (2.0 - 7.6 x10 3/uL) 12.68 H 8.53 H Lymph # (Auto) (1.0 - 3.8 x10 3/uL) 0.70 L 2.0 6 [place] # (Auto) (0.1 - 0.8 x10 3/uL) 0.70 1.16 H Eos # (Auto) (0.0 - 0.2 x10 3/uL) 0.00 0.00 Baso # (Auto) (0.0 - 0.2 x10 3/uL) 0.02 0.03 Abs Immat Gran (auto) (0.00 - 0.03 x10 3/uL) 0. 18 H 0.06 H Add Manual Diff NO NO Immature Gran % (0.0 - 2.0 %) 1.3 0.5 Nucleated RBC % (0 - 0 %) 0.0 0.0 Nucleated RBCs # (Man) (0.0 - 0.1 x10 3/uL) 0.0 0 0.00 Laboratory Tests 01/13 01/14 1740 0430 Chemistry Magnesium (1.80 - 2.40 mg/dL) 1.47 L 2.54 H Results: labs reviewed, vital signs reviewed, vi chantal signs stable, rhythm personally rev'd, current med profile rev'd Telemetry Interpretation: nsr Treatment Prophylaxis Treatment Prophylaxis Drain(s)/tube(s): Drain(s)/tube(s): NANO Diagnosis, Assessment Plan Problem List/A P: 1. S/P carotid endarterectomy Consultants: cardiology, critical/administrative support assoc, h ospitalist, thoracic surgery Plan discussed with: patient, spouse/partner, nu rse Free Text DxA P Notes Free Text DxA P Notes: Ms Campos is a 76 y/o F w/ P MHx CAD s/p PCI x 3 stents, CVA w/ Lt side weakness, HTN, HLD, PAD s/p Rt SFA w/ stent came in 01/12 f or cartoid angiogram d/t intermittent dizziness and l ightheaded. Her carotid angiogram showed Rt ICA 90- 95% stenosis and left ICA 70-80%. She underwent right CEA 01/13. Pt is doing well post op. Denied chest discomfort, no sob, n o orthopnea. Reports mild tenderness at incision site. No n/v/d. Telemetry shows nsr. Currently, she is in RA, sitting in chair w/o di stress. is at bedside. - B/l carotid stenosis s/p Rt CEA. Per CTS. Min NANO output. On ASA, Plavix, statins. - CAD. stable. On ASA, Plavix and statin. BP stable. - h/o PAD s/p peripheral angiogram w/ stent - h/o CVA. Ok d/c home from cardiac standpoint. f/u w/ Dr. Whatley in 1-2 wks. Discussed plan of care w/pt and her . Thank you for the kind consult. Edyta Reynolds 01/15/22 0754: Attestations Physician Attestation Agree w/findings plan: I have seen and examined the pt, I Agree with th e findings and plan as documented by Sinai Gutierrez. Electronically Signed by Sinai Gutierrez NP on at [phone] Electronically Signed by Edyta Reynolds MD on at 0759 RPT #:[id number] END OF REPORT 2022-01-13 17:19:00-00:00 [facility] ([facility]) Critical Care Consult Note REPORT#:[id number] REPORT STATUS: Signed DATE:01/13/22 TIME: 4699 PATIENT: MARLA CAMPOS UNIT #: [id number] ROOM/BED: [place] [id number] : 45 AGE: 76 SEX: F ATTEND: Vasyl Evans DO ADM AUTHOR: Marivel Velasco * ALL edits or amendments must be made on the el [employer]/computer document * History of Present Illness HPI Reason for consult: post op care. Chief complaint: Bilateral carotid artery stenosis Status post right carotid endarterectomy HPI: Mrs. Campos is a pleasant 76y/o female p aient with a PMH of HTN, HLD, CVA with residual left-sided weakness, she uses c ane occasionally for mobility, CAD s/p stents x3, and PAD with right SFA stent. She came to the hospital for elective angiogram. She was found to have severe bilateral carotid stenosis. She is now s /p Right CEA and will be admitted to CCU for fur ther monitoring. History - Adult longitudinal Past medical history: Reports: Coronary artery disease. Additional medical history: cad s/p PCI, anemia, hx of ulcers Additional surgical history: Hysterectomy Breast biopsy Cholecystectomy Knee Sinus surgery Additional family history: Denies Alcohol use: Denies EtOH use Drug use: Denies recreational drugs Smoking status: Smoking status for patients 13 years old or old er: Former Smoker Date last smoked: 07/17/89 Years smoked: 10 Pack years: 0 Additional social history: Lives at home with her in a single-story home. No stairs to enter. She is ambulatory with a single-point cane. She no longer drives her assists her with any assistance at home . Medications: Home Medications: Medication Dose/Rte/Freq Days Qty Entered Last Max Daily Dose Reviewed ASPIRIN EC (ECOTRIN) 81 MG PO DAILY 05/03/21 Strength: 81 MG TAB.EC 1353 1031 [MAGNESIUM GLYCENATE] 2 TAB PO TID 05/03/2112/16 Strength: 120 MG 1354 1031 UBIDECARENONE (CO Q-10) 100 MG PO BID 05/03/21 01/12/22 Strength: 100 MG CAP 1354 1031 DOCUSATE SODIUM 100 MG PO 05/03/21 01/12/22 (COLACE) DAILY PRN 1355 1031 Strength: 100 MG CAP CONSTIPATION [PEARLS PROBIOTIC] 1 TAB PO DAILY 05/03/2112/16 Strength: 1355 1031 [COSAMIN ASU JOINT ] 1 TAB PO DAILY 05/03/21 Strength: 1356 1031 [MOVE FREE JOINT ] 1 TAB PO DAILY 05/03/2101/12 Strength: 1357 1031 [TURMERIC ] 1,000 MG PO DAILY 05/03/21 01/12/22 Strength: 1357 1031 ATORVASTATIN (LIPITOR) 40 MG PO BEDTIME 1 01/12/22 Strength: 40 MG TAB 1107 1031 LEVOCETIRIZINE (XYZAL) 5 MG PO DAILY 05/08/21 01/12/22 Strength: 5 MG TAB [address] 40 MG PO DAILY 08/02/21 2 (PROTONIX) 1433 1031 Strength: 40 MG TAB. METOLAZONE (ZAROXOLYN) 5 MG PO 11/01/21 2 Strength: 5 MG TAB DAILY PRN FLUID 1434 1031 SWELLING [PROMETHAZINE DM] (Unknown Dose) 11/01/2101/12 Strength: (Unknown PRN COUGH 1435 1031 Strength) [ALBUTEROL ] 11/01/21 01/12/22 Strength: 1436 1031 FAMOTIDINE (PEPCID) 20 MG PO BEDTIME 11/01/21 0 01/12/22 Strength: 20 MG TAB 1437 1031 [VITAMIN D3 ] 25 MG DAILY 11/01/21 01/12/22 Strength: 1437 1031 SPIRONOLACTONE 25 MG PO 11/01/21 01/12/22 (ALDACTONE) DAILY PRN EDEMA 1434 1031 Strength: 25 MG TAB POTASSIUM CHLORIDE ER 10 MEQ PO 01/10/22 (KLOR-CON 10) DAILY PRN WHEN 1429 1031 Strength: 10 MEQ TAB.SA TAKES METOLAZONE CLOPIDOGREL (PLAVIX) 75 MG PO DAILY 90 90 05/0501/12/22 Strength: 75 MG TAB 1545 1031 Current Hospital Medications: Anti-Infective Agents Sig/Nellie Start time Last Medication Dose Route Stop Time Status Admin Cefazolin Sodium 0 .STK-MED ONE 01/13 1211 DC (KEFZOL OR ANCEF) .ROUTE Clindamycin Phosphate 50 ML .STK-MED ONE 01/13 1207 DC (CLEOCIN 900 MG/NS IV 50 ML) Cefazolin Sodium 1 GM PREOP ONCALL 01/13 0500 C KD (KEFZOL OR ANCEF) IV 01/13 2359 Sodium Chloride 10 ML (SODIUM CHLORIDE) Antihistamine Drugs Sig/Nellie Start time Last Medication Dose Route Stop Time Status Admin Promethazine HCl 25 MG PACU ONCE PRN 01/13 1315 AC (PHENERGAN) PO 01/13 2311 Autonomic Drugs Sig/Nellie Start time Last Medication Dose Route Stop Time Status Admin Glycopyrrolate 0 .STK-MED ONE 01/13 1323 DC (GLYCOPYRROLATE) .ROUTE Neostigmine 0 .STK-MED ONE 01/13 1323 DC Methylsulfate .ROUTE (PROSTIGMIN) Norepinephrine 250 ML .STK-MED ONE 01/13 1014 D C Bitartrate IV (NOREPINEPHRINE 8 MG/ NS 250 ML) Rocuronium [place] 0 .STK-MED ONE 01/13 1011 DC (ZEMURON) IV Atropine Sulfate 0.5 MG ASDIR PRN 01/12 1215 DC (ATROPINE SULFATE IV 01/13 1209 0.1MG/ML SYR) Blood Formation,Coagulation Sig/Nellie Start time Last Medication Dose Route Stop Time Status Admin Heparin Sodium 0 .STK-MED ONE 01/13 1237 DC (HEPARIN SODIUM) .ROUTE Heparin Sodium 0 .STK-MED ONE 01/13 1025 DC (HEPARIN SODIUM) .ROUTE Thrombin 0 .STK-MED ONE 01/13 1014 DC (RECOTHROM) TOPICAL Cardiovascular Drugs Sig/Nellie Start time Last Medication Dose Route Stop Time Status Admin Hydralazine HCl 10 MG Q6H PRN PRN 01/13 1715 AC (APRESOLINE) IV 02/12 1714 Hydralazine HCl 2 MG PACU Q10MIN PRN PRN 01/13 1315 AC (APRESOLINE) IV 01/13 2311 Labetalol HCl 5 MG PACU Q10MIN PRN PRN 01/13 13 15 AC (LABETALOL HCL) IV 01/13 2311 Nitroglycerin/ 250 ML .STK-MED ONE 01/13 1014 D C Dextrose IV (NITROGLYCERIN 50,000MCG/D5W 250ML) Lidocaine HCl 0 .STK-MED ONE 01/13 1006 DC (XYLOCAINE) .ROUTE Atorvastatin Calcium 40 MG BEDTIME 01/12 2100 A C 01/12 (LIPITOR) PO 02/11 2059 2105 Central Nervous System Agents Sig/Nellie Start time Last Medication Dose Route Stop Time Status Admin Fentanyl Citrate 0 .STK-MED ONE 01/13 1447 DC (SUBLIMAZE) IV Tramadol HCl 50 MG Q4H PRN PRN 01/13 1430 AC (ULTRAM) PO 01/18 1429 Fentanyl Citrate 100 MCG PACU Q10MIN PRN PRN 1315 AC (SUBLIMAZE) IV 01/13 2311 Fentanyl Citrate 50 MCG PACU Q10MIN PRN PRN 1315 AC 01/13 (SUBLIMAZE) IV 01/13 2311 1505 Hydrocodone Bitart/ 1 TAB PACU ONCE 01/13 1315 CKD Acetaminophen PO 01/13 2311 (NORCO 5/325) Hydromorphone HCl 1 MG PACU Q10MIN PRN PRN 12/17 0 1315 AC (DILAUDID) IV 01/13 2311 Hydromorphone HCl 0.5 MG PACU Q5MIN PRN PRN 1315 AC (DILAUDID) IV 01/13 2311 Meperidine HCl 12.5 MG PACU ONCE PRN 01/13 1315 AC (DEMEROL 50MG/ML) IV 01/13 2311 Morphine Sulfate 2 MG PACU Q10MIN PRN PRN 01/13 1315 AC (morphine SULFATE) IV 01/13 2311 Tramadol HCl 50 MG PACU ONCE 01/13 1315 CKD (ULTRAM) PO 01/13 2311 Fentanyl Citrate 0 .STK-MED ONE 01/13 1217 DC (SUBLIMAZE) .ROUTE Etomidate 0 .STK-MED ONE 01/13 1011 DC (AMIDATE) IV Aspirin 81 MG DAILY 01/13 0900 AC (ASPIRIN) PO 02/12 0859 Acetaminophen 650 MG Q4H PRN PRN 01/12 1830 AC (TYLENOL) PO 02/11 1829 Electrolytic, Caloric, And [place] Sig/Nellie Start time Last Medication Dose Route Stop Time Status Admin Sodium Chloride 500 ML ASDIR PRN 01/12 1215 DC (SODIUM CHLORIDE IV 01/13 1209 0.9%) Eye, Ear, Nose And Throat (Een Sig/Nellie Start time Last Medication Dose Route Stop Time Status Admin Dexamethasone Sodium 0 .STK-MED ONE 01/13 1011 DC Phosphate .ROUTE (DECADRON) Gastrointestinal Drugs Sig/Nellie Start time Last Medication Dose Route Stop Time Status Admin Docusate Sodium 100 MG BID 01/13 2100 AC (COLACE) PO 02/12 205 Ondansetron HCl 0 .STK-MED ONE 01/13 1433 DC (ZOFRAN) IV Bisacodyl 10 MG DAILY PRN PRN 01/13 1430 AC (DULCOLAX) RECTAL 02/12 1429 Magnesium Hydroxide 30 ML Q6H PRN PRN 01/13 143 0 AC (MILK OF MAGNESIA) PO 02/12 1429 Ondansetron HCl 4 MG PACU ONCE PRN 01/13 1315 A C (ZOFRAN) IV 01/13 2311 Ondansetron HCl 0 .STK-MED ONE 01/13 1011 DC (ZOFRAN) .ROUTE Famotidine 20 MG DAILY PRN 01/13 0915 AC 01/13 (PEPCID) PO 02/12 0914 1054 Pantoprazole 40 MG DAILY 0600 01/13 0600 DC (PROTONIX) PO 02/12 0559 0532 Ondansetron HCl 4 MG Q4H PRN PRN 01/12 1830 AC 01/13 (ZOFRAN) IV 02/11 1829 1434 Hormones And Synthetic Substit Sig/Nellie Start time Last Medication Dose Route Stop Time Status Admin Insulin Human Lispro 0 PACU ONCE PRN 01/13 1315 AC (HUMALOG) SUBQ 01/13 2311 Local Anesthetics (Parenteral) Sig/Nellie Start time Last Medication Dose Route Stop Time Status Admin Ropivacaine 150 MG ASDIR PRN 01/13 1315 AC (NAROPIN 0.5% 150 MG/ LOCAL 01/13 2311 30mL) Miscellaneous Therapeutic Agen Sig/Nellie Start time Last Medication Dose Route Stop Time Status Admin Sugammadex Sodium 0 .STK-MED ONE 01/13 1012 DC (BRIDION) IV Skin And Mucous Membrane Agent Sig/Nellie Start time Last Medication Dose Route Stop Time Status Admin Mupirocin 1 APPLIC BID 01/13 2100 AC (BACTROBAN 2% 22 GM NASAL 01/18 0901 OINTMENT) Allergies: Coded Allergies: Corcoran And Derivatives (Severe, VOMITING 2) Penicillins (Severe, INJECTION SITE SWELLING ) fludrocortisone (From FLORIN EF) (Severe, SEVERE RASH, SWELLING OF EYES 08/02/21) lansoprazole (From PREVACID) (Severe, NAUSEA, CH ILLS 08/02/21) meperidine (From DEMEROL) (Severe, VOMITING 07/17 02/04) Quinolones (Intermediate, RASH, FACIAL SWELLING 05/07/21) Sulfa (Sulfonamide Antibiotics) (Intermediate, R SONYA, EYE SWELLING 08/02/21) fluticasone furoate (From BR EO ELLIPTA) (Intermediate, HARD TO BREATH 05/07/21) rofecoxib (From VIOXX) (Intermediate, EYE AND CRISTINO DY SWELLING 05/07/21) sulfapyridine (Intermediate, EYE LID SWELLING ) vilanterol (From BREO ELLIPTA) (Intermediate, KHOURY RD TO BREATH 05/07/21) Iodinated Contrast Media (UNKNOWN 08/02/21) clotrimazole (Intermediate, UTI, RASH 08/02/21) gabapentin (Intermediate, DIZZINESS, NAUSEA, CON STIPATION 08/02/21) pregabalin (From LYRICA) (Intermediate, WATERY E YES 08/02/21) clarithromycin (From BIAXIN) (Mild, RASH, SORE T ONGUE 08/02/21) doxycycline (From PERIOSTAT) (Mild, ABDOMINAL PA IN 08/02/21) nabumetone (From RELAFEN) (Mild, ABDOMINAL PAIN 08/02/21) Ambulatory status: Patient uses cane occasionall y Review of Systems ROS Additional notes: A review of system was conducted with patient, a ll pertinent negatives and positives mentioned in HPI. Objective Physical Exam VS/I O: Last Documented: Result Date Time Pulse Ox 95 01/13 1629 B/P 120/46 01/13 1629 O2 Delivery Room air 01/13 1629 Pulse 60 01/13 1629 Resp 16 01/13 1629 O2 Flow Rate 5 01/13 1404 Temp 97.7 01/13 1354 B/P Mean 95.8 01/13 0736 24 hour I O ending at 0700: 01/13 0700 01/12 1900 Intake Total 150 200 Output Total Balance 150 200 Intake, Oral 150 200 Number Voids 3 Patient Weight and BMI Weight (kg): 65.800 BMI: 25.7 Medications: Active Meds + DC'd Last 24 Hrs Docusate Sodium (COLACE) 100 MG BID PO Mupirocin (BACTROBAN 2% 22 GM OINTMENT) 1 APPLIC BID NASAL Hydralazine HCl (APRESOLINE) 10 MG Q6H PRN PRN I V Fentanyl Citrate (SUBLIMAZE) 0 .STK-MED ONE IV ( DC) Ondansetron HCl (ZOFRAN) 0 .STK-MED ONE IV (DC) Bisacodyl (DULCOLAX) 10 MG DAILY PRN PRN RECTAL Magnesium Hydroxide (MILK OF MAGNESIA) 30 ML Q6H PRN PRN PO Tramadol HCl (ULTRAM) 50 MG Q4H PRN PRN PO Glycopyrrolate (GLYCOPYRROLATE) 0 .STK-MED ONE . ROUTE (DC) Neostigmine Methylsulfate (PROSTIGMIN) 0 .STK-ME D ONE .ROUTE (DC) Fentanyl Citrate (SUBLIMAZE) 100 MCG PACU Q10MIN PRN PRN IV Fentanyl Citrate (SUBLIMAZE) 50 MCG PACU Q10MIN PRN PRN IV Hydralazine HCl (APRESOLINE) 2 MG PACU Q10MIN P RN PRN IV Hydrocodone Bitart/Acetaminophen (NORCO 5/325) 1 TAB PACU ONCE PO (CKD) Hydromorphone HCl (DILAUDID) 1 MG PACU Q10MIN NE N PRN IV Hydromorphone HCl (DILAUDID) 0.5 MG PACU Q5MIN P RN PRN IV Insulin Human Lispro (HUMALOG) 0 PACU ONCE PRN S UBQ Labetalol HCl (LABETALOL HCL) 5 MG PACU Q10MIN P RN PRN IV Meperidine HCl (DEMEROL 50MG/ML) 12.5 MG PACU ON CE PRN IV Morphine Sulfate (morphine SULFATE) 2 MG PACU Q1 0MIN PRN PRN IV Ondansetron HCl (ZOFRAN) 4 MG PACU ONCE PRN IV Promethazine HCl (PHENERGAN) 25 MG PACU ONCE PRN PO Ropivacaine (NAROPIN 0.5% 150 MG/30mL) 150 MG DIR PRN LOCAL Tramadol HCl (ULTRAM) 50 MG PACU ONCE PO (CKD) Heparin Sodium (HEPARIN SODIUM) 0 .STK-MED ONE . ROUTE (DC) Fentanyl Citrate (SUBLIMAZE) 0 .STK-MED ONE .ROU TE (DC) Cefazolin Sodium (KEFZOL OR ANCEF) 0 .STK-MED ON E .ROUTE (DC) Clindamycin Phosphate (CLEOCIN 900 MG/NS 50 ML) 50 ML .STK-MED ONE IV ( DC) Heparin Sodium (HEPARIN SODIUM) 0 .STK-MED ONE . ROUTE (DC) Nitroglycerin/Dextrose (NITROGLYCERIN 50,000MCG/ D5W 250ML) 250 ML .STK-MED ONE IV (DC) Norepinephrine Bitartrate (NOREPINEPHRINE 8 MG/N S 250 ML) 250 ML .STK-MED ONE IV (DC) Thrombin (RECOTHROM) 0 .STK-MED ONE TOPICAL (DC) Sugammadex Sodium (BRIDION) 0 .STK-MED ONE IV (D C) Dexamethasone Sodium Phosphate (DECADRON) 0 .STK -MED ONE .ROUTE (DC) Etomidate (AMIDATE) 0 .STK-MED ONE IV (DC) Ondansetron HCl (ZOFRAN) 0 .STK-MED ONE .ROUTE ( DC) Rocuronium [place] (ZEMURON) 0 .STK-MED ONE IV ( DC) Lidocaine HCl (XYLOCAINE) 0 .STK-MED ONE .ROUTE (DC) Famotidine (PEPCID) 20 MG DAILY PRN PO Aspirin (ASPIRIN) 81 MG DAILY PO Pantoprazole (PROTONIX) 40 MG DAILY 0600 PO (DC) Cefazolin Sodium (KEFZOL OR ANCEF) 1 GM PREOP PACK PULLER IV (CKD) Sodium Chloride (SODIUM CHLORIDE) 10 ML Atorvastatin Calcium (LIPITOR) 40 MG BEDTIME PO Acetaminophen (TYLENOL) 650 MG Q4H PRN PRN PO Ondansetron HCl (ZOFRAN) 4 MG Q4H PRN PRN IV Atropine Sulfate (ATROPINE SULFATE 0.1MG/ML SYR) 0.5 MG ASDIR PRN IV (DC ) Sodium Chloride (SODIUM CHLORIDE 0.9%) 500 ML DIR PRN IV (DC) Results Findings/Data: Laboratory Tests 01/13/22 1419: [Embedded Image Not Available] 01/13/22 0930: [Embedded Image Not Available] Laboratory Tests 01/13 01/13 1419 0930 Chemistry Sodium (134 - 147 mEq/L) 140 138 Potassium (3.4 - 5.0 mEq/L) 3.5 3.6 Chloride (100 - 108 mEq/L) 112 H 106 Carbon Dioxide (21 - 33 mEq/l) 25 28 Anion Gap (0 - 20) 7 7 BUN (7 - 18 mg/dL) 26 H 22 H Creatinine (0.6 - 1.3 mg/dL) 1.0 1.1 Glomerular Filtr Rate (70 - 80) 53.9 L 48.3 L Glucose (70 - 110 mg/dL) 130 H 93 Calcium (8.0 - 10.5 mg/dL) 8.3 9.7 Magnesium (1.80 - 2.40 mg/dL) 1.85 Total Bilirubin (0.0 - 1.0 mg/dL) 0.60 AST (15 - 37 IUnit/L) 28 ALT (30 - 65 IUnit/L) 14 L Total Alk Phosphatase (20 - 125 IUnit/L) 70 Total Protein (6.4 - 8.2 g/dL) 7.4 Albumin (3.4 - 5.0 g/dL) 4.30 Triglycerides (40 - 150 mg/dL) 58 Cholesterol (<200 mg/dL) 161 LDL Cholesterol [place] (0 - 100 mg/dL) 102.0 H HDL Cholesterol (39 - 96 mg/dL) 62.4 Cholesterol/HDL Ratio (3.27 - 4.44 RATIO) 2.58 L Laboratory Tests 01/13 01/13 1253 0930 Coagulation INR (0.8 - 1.2) 1.0 PTT (Rekha) (25.0 - 39.5 Seconds) 22.6 L PT Patient/Control Mix (9.3 - 12.9 SECONDS) 11. 4 Activated Coag Time (74 - 137 SEC) 347 H Laboratory Tests 01/13 01/13 1419 0930 Hematology WBC (4.5 - 11.0 x10 3/uL) 16.6 H RBC (3.54 - 5.02 x10 6/uL) 4.13 Hgb (11.0 - 15.0 g/dL) 10.4 L 12.7 Hct (33.0 - 45.0 %) 30.5 L 37.8 MCV (81.0 - 99.0 fL) 91.5 MCH (27.0 - 33.0 pg) 30.8 MCHC (33.0 - 37.0 g/dL) 33.6 RDW (11.5 - 14.5 %) 13.7 Plt Count (150 - 400 x10 3/uL) 161 MPV (7.0 - 9.0 fL) 10.2 H Neut % (Auto) (56.0 - 77.0 %) 79.8 H Lymph % (Auto) (14.0 - 32.0 %) 12.7 L [place] % (Auto) (4.8 - 9.0 %) 6.7 Eos % (Auto) (0.3 - 3.7 %) 0.0 L Baso % (Auto) (0.0 - 2.0 %) 0.2 Neut # (Auto) (2.0 - 7.6 x10 3/uL) 13.28 H Lymph # (Auto) (1.0 - 3.8 x10 3/uL) 2.11 [place] # (Auto) (0.1 - 0.8 x10 3/uL) 1.11 H Eos # (Auto) (0.0 - 0.2 x10 3/uL) 0.00 Baso # (Auto) (0.0 - 0.2 x10 3/uL) 0.03 Abs Immat Gran (auto) (0.00 - 0.03 x10 3/uL) 0. 10 H Add Manual Diff NO Immature Gran % (0.0 - 2.0 %) 0.6 Nucleated RBC % (0 - 0 %) 0.0 Nucleated RBCs # (Man) (0.0 - 0.1 x10 3/uL) 0. 00 Laboratory Tests 01/13 0600 Serology SARS-CoV-2 Ag (Rapid) (Negative) Negative Radiology data: Recent Impressions: RADIOLOGY - XR CHEST 2 V 01/13 1001 Report Impression - Status: SIGNED Entered: 01/13/2022 1323 IMPRESSION: No acute cardiopulmonary findings Impression By: [id number] - Renee Stevan-DeLu na, M.D. Free Text Obj Notes Free Text Obj Notes: General: Awake, responsive, on room air, no dist ress HEENT: NC/AT, pupils equal and reactive, dry muc ous membranes. Right neck surgical dressing inside, dry and intact. No mas ses, no hematoma. CV: Regular rate and rhythm, S1/S2, no murmurs, rubs or gallops Resp: Symmetrical expansion, no wheezing/rales, normal work of breathing GI: Soft, NT/ND, bowel sounds present Extremities: Warm, no cyanosis, no edema. Pulses palpable Skin: Right neck surgical site, dressing dry and intact. Right groin soft, no hematoma. Neuro: Awake/alert speech is fluent, left-sided weakness Treatment Prophylaxis Treatment Prophylaxis Oxygen: room air Drain(s)/tube(s): Drain(s)/tube(s): NANO Diagnosis, Assessment Plan Diagnosis, Assessment Plan Consultants: cardiology, critical/administrative support assoc, h ospitalist, thoracic surgery Critical care time: Minutes: 35 Code Status/Resusc. Discussion Resuscitation discussion: Discussed with: patient Code status: full code Free text DxA P: Mrs. Campos is a 76y/o female paient wit h a PMH of HTN, HLD, CVA with residual left-sided weakness, she use s cane occasionally for mobility, CAD s/p stents x3 , and PAD with right SFA chuckie nt. She came to the hospital for elective angiogram and was found to have 90-95% stenosis to R ICA a nd 70-80% to left ICA. She is now s/p Right CEA and will be admitted to CCU fo r further monitoring. 01/13-Transferred to CCU from PACU. She is awake and oriented. B/p and HR stable. Right neck surgical site, dressing clean and dry. NANO drain in place with small amount of serosanguineous output. Assessment/plan 1. Severe bilateral carotid stenosis 2. Right carotid endarterectomy 3. History of CAD with stents x3 4. History of hypertension 5. Hyperlipidemia 6. PAD with right SFA stent 7. CVA with left-sided weakness 8. History of gastric ulcer Neuro: Speech is clear, patient has left-sided w eakness from previous stroke. Neurochecks per unit protocol PRN pain control. Resp: sats well on room air CV: BP controlled. PRN Apresoline for SBP> 160. Resume home antihypertensives as appropriate Renal: Monitor renal function and UOP. Creatinin e stable, GI: oral diet as tolerated, bowel regimen ID: Afebrile, elevated WBCs, monitor Heme: Hgb appears stable, no evidence of active bleed, monitor drain output. Endo: BG checks and controlled Misc: out of bed as tolerated, DVT prophylaxis: SCDs GI ppx: Famotidine Follow lab work. I spent 35 minutes of critical care [facility] labs, diagnostics and discussing plan of care with critical care team. Quality: Gen Med Crit Care VTE Prophylaxis VTE prophylaxis initiated: yes Current Medications Current medication review: I attest that the foregoing medication list in t he medical record is true, accurate, and complete to the best of my knowled ge. Advanced Care Plan 65 or Older Discussed with: patient Discussion included: living will, power of attor gamal, code status at 1815 RPT #:[id number] END OF REPORT 2022-01-13 15:35:00-00:00 [facility] Hospitalist Progress Note REPORT#:[id number] REPORT STATUS: Signed DATE:01/13/22 TIME: 1535 PATIENT: MARLA CAMPOS UNIT #: [id number] ROOM/BED: [place] [id number] : 45 AGE: 76 SEX: F ATTEND: Vasyl Evans DO ADM AUTHOR: Rj Evans DO * ALL edits or amendments must be made on the Nellix/computer document * Subjective Comments: Patient was seen and examined prior to surgery. Denies any new complaints. Discussed case with CV surgery CHIEF CONTROLLER. at be dside. Objective General VS/I O: Vital Signs: Date Time Temp Pulse Resp B/P B/P Pulse O2 O2 F low FiO2 Mean Ox Delivery Rate 01/13 1514 64 14 106/50 95 Room air 01/13 1459 60 18 115/56 97 Room air 01/13 1444 62 20 116/59 98 Room air 01/13 1429 56 15 99/52 98 Room air 01/13 1414 60 18 110/40 98 Room air 01/13 1409 66 19 120/44 98 Room air 01/13 1404 66 19 126/46 100 Simple 5 mask 01/13 1359 66 16 138/54 100 Simple 6 mask 01/13 1354 97.7 70 14 156/58 100 Simple 8 mask 01/13 0736 97.7 79 19 132/78 95.8 98 01/13 0403 97.9 87 17 135/60 85.2 95 01/12 2252 97.7 72 16 129/59 82.0 95 01/12 1904 97.9 75 17 150/69 96.1 96 01/12 1826 97.9 66 16 116/69 84.9 94 Room air 24 hour I O ending at 0700: 01/13 0700 01/12 1900 Intake Total 150 200 Output Total Balance 150 200 Intake, Oral 150 200 Number Voids 3 PATIENT WEIGHT: Weight (lb): 145 Weight (oz): 1.03 Weight (kg): 65.800 Medications: Active Meds + DC'd Last 24 Hrs Docusate Sodium (COLACE) 100 MG BID PO Fentanyl Citrate (SUBLIMAZE) 0 .STK-MED ONE .ROU TE (DC) Ondansetron HCl (ZOFRAN) 0 .STK-MED ONE .ROUTE ( DC) Bisacodyl (DULCOLAX) 10 MG DAILY PRN PRN RECTAL Magnesium Hydroxide (MILK OF MAGNESIA) 30 ML Q6H PRN PRN PO Tramadol HCl (ULTRAM) 50 MG Q4H PRN PRN PO Glycopyrrolate (GLYCOPYRROLATE) 0 .STK-MED ONE . ROUTE (DC) Neostigmine Methylsulfate (PROSTIGMIN) 0 .STK-ME D ONE .ROUTE (DC) Fentanyl Citrate (SUBLIMAZE) 100 MCG PACU Q10MIN PRN PRN IV Fentanyl Citrate (SUBLIMAZE) 50 MCG PACU Q10MIN PRN PRN IV Hydralazine HCl (APRESOLINE) 2 MG PACU Q10MIN NE N PRN IV Hydrocodone Bitart/Acetaminophen (NORCO 5/325) 1 TAB PACU ONCE PO (CKD) Hydromorphone HCl (DILAUDID) 1 MG PACU Q10MIN NE N PRN IV Hydromorphone HCl (DILAUDID) 0.5 MG PACU Q5MIN P RN PRN IV Insulin Human Lispro (HUMALOG) 0 PACU ONCE PRN S UBQ Labetalol HCl (LABETALOL HCL) 5 MG PACU Q10MIN P RN PRN IV Meperidine HCl (DEMEROL 50MG/ML) 12.5 MG PACU ON CE PRN IV Morphine Sulfate (morphine SULFATE) 2 MG PACU Q1 0MIN PRN PRN IV Ondansetron HCl (ZOFRAN) 4 MG PACU ONCE PRN IV Promethazine HCl (PHENERGAN) 25 MG PACU ONCE PRN PO Ropivacaine (NAROPIN 0.5% 150 MG/30mL) 150 MG DIR PRN LOCAL Tramadol HCl (ULTRAM) 50 MG PACU ONCE PO (CKD) Heparin Sodium (HEPARIN SODIUM) 0 .STK-MED ONE . ROUTE (DC) Fentanyl Citrate (SUBLIMAZE) 0 .STK-MED ONE .ROU TE (DC) Cefazolin Sodium (KEFZOL OR ANCEF) 0 .STK-MED ON E .ROUTE (DC) Clindamycin Phosphate (CLEOCIN 900 MG/NS 50 ML) 50 ML .STK-MED ONE IV ( DC) Heparin Sodium (HEPARIN SODIUM) 0 .STK-MED ONE . ROUTE (DC) Nitroglycerin/Dextrose (NITROGLYCERIN 50,000MCG/ D5W 250ML) 250 ML .STK-MED ONE IV (DC) Norepinephrine Bitartrate (NOREPINEPHRINE 8 MG/N S 250 ML) 250 ML .STK-MED ONE IV (DC) Thrombin (RECOTHROM) 0 .STK-MED ONE TOPICAL (DC) Sugammadex Sodium (BRIDION) 0 .STK-MED ONE IV ( DC) Dexamethasone Sodium Phosphate (DECADRON) 0 .STK -MED ONE .ROUTE (DC) Etomidate (AMIDATE) 0 .STK-MED ONE IV (DC) Ondansetron HCl (ZOFRAN) 0 .STK-MED ONE .ROUTE ( DC) Rocuronium [place] (ZEMURON) 0 .STK-MED ONE IV ( DC) Lidocaine HCl (XYLOCAINE) 0 .STK-MED ONE .ROUTE (DC) Famotidine (PEPCID) 20 MG DAILY PRN PO Aspirin (ASPIRIN) 81 MG DAILY PO Pantoprazole (PROTONIX) 40 MG DAILY 0600 PO (DC) Cefazolin Sodium (KEFZOL OR ANCEF) 1 GM PREOP PACK PULLER IV (CKD) Sodium Chloride (SODIUM CHLORIDE) 10 ML Atorvastatin Calcium (LIPITOR) 40 MG BEDTIME PO Acetaminophen (TYLENOL) 650 MG Q4H PRN PRN PO Ondansetron HCl (ZOFRAN) 4 MG Q4H PRN PRN IV Atropine Sulfate (ATROPINE SULFATE 0.1MG/ML SYR) 0.5 MG ASDIR PRN IV (DC ) Sodium Chloride (SODIUM CHLORIDE 0.9%) 500 ML A SDIR PRN IV (DC) Physical Exam General appearance: alert, awake, oriented Head/Eyes: clear cornea, EOMI ENT: moist mucosal membranes, normal pharynx Neck: non-tender, supple/no meningismus Cardiovascular: normal heart sounds, regular rat e rhythm Respiratory: aerating well, clear to auscultatio n, symmetric expansion Abdomen: non-tender, normal bowel sounds, soft, no distention Extremities: moves all, no edema Musculoskeletal: normal inspection, painless ran ge of motion 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: alert, oriented X 3, no motor deficit s, no sensory deficits Skin: dry, intact Results Findings/Data: Laboratory Tests 01/13 01/13 1419 0930 Chemistry Sodium (134 - 147 mEq/L) 140 138 Potassium (3.4 - 5.0 mEq/L) 3.5 3.6 Chloride (100 - 108 mEq/L) 112 H 106 Carbon Dioxide (21 - 33 mEq/l) 25 28 Anion Gap (0 - 20) 7 7 BUN (7 - 18 mg/dL) 26 H 22 H Creatinine (0.6 - 1.3 mg/dL) 1.0 1.1 Glomerular Filtr Rate (70 - 80) 53.9 L 48.3 L Glucose (70 - 110 mg/dL) 130 H 93 Calcium (8.0 - 10.5 mg/dL) 8.3 9.7 Magnesium (1.80 - 2.40 mg/dL) 1.85 Total Bilirubin (0.0 - 1.0 mg/dL) 0.60 AST (15 - 37 IUnit/L) 28 ALT (30 - 65 IUnit/L) 14 L Total Alk Phosphatase (20 - 125 IUnit/L) 70 Total Protein (6.4 - 8.2 g/dL) 7.4 Albumin (3.4 - 5.0 g/dL) 4.30 Triglycerides (40 - 150 mg/dL) 58 Cholesterol (<200 mg/dL) 161 LDL Cholesterol Measurd (0 - 100 mg/dL) 102.0 H HDL Cholesterol (39 - 96 mg/dL) 62.4 Cholesterol/HDL Ratio (3.27 - 4.44 RATIO) 2.58 L Laboratory Tests 01/13 01/13 1253 0930 Coagulation INR (0.8 - 1.2) 1.0 PTT ([place]) (25.0 - 39.5 Seconds) 22.6 L PT Patient/Control Mix (9.3 - 12.9 SECONDS) 11. 4 Activated Coag Time (74 - 137 SEC) 347 H Laboratory Tests 01/13 01/13 1419 0930 Hematology WBC (4.5 - 11.0 x10 3/uL) 16.6 H RBC (3.54 - 5.02 x10 6/uL) 4.13 Hgb (11.0 - 15.0 g/dL) 10.4 L 12.7 Hct (33.0 - 45.0 %) 30.5 L 37.8 MCV (81.0 - 99.0 fL) 91.5 MCH (27.0 - 33.0 pg) 30.8 MCHC (33.0 - 37.0 g/dL) 33.6 RDW (11.5 - 14.5 %) 13.7 Plt Count (150 - 400 x10 3/uL) 161 MPV (7.0 - 9.0 fL) 10.2 H Neut % (Auto) (56.0 - 77.0 %) 79.8 H Lymph % (Auto) (14.0 - 32.0 %) 12.7 L [place] % (Auto) (4.8 - 9.0 %) 6.7 Eos % (Auto) (0.3 - 3.7 %) 0.0 L Baso % (Auto) (0.0 - 2.0 %) 0.2 Neut # (Auto) (2.0 - 7.6 x10 3/uL) 13.28 H Lymph # (Auto) (1.0 - 3.8 x10 3/uL) 2.11 [place] # (Auto) (0.1 - 0.8 x10 3/uL) 1.11 H Eos # (Auto) (0.0 - 0.2 x10 3/uL) 0.00 Baso # (Auto) (0.0 - 0.2 x10 3/uL) 0.03 Abs Immat Gran (auto) (0.00 - 0.03 x10 3/uL) 0. 10 H Add Manual Diff NO Immature Gran % (0.0 - 2.0 %) 0.6 Nucleated RBC % (0 - 0 %) 0.0 Nucleated RBCs # (Man) (0.0 - 0.1 x10 3/uL) 0.0 0 Laboratory Tests 01/13 0600 Serology SARS-CoV-2 Ag (Rapid) (Negative) Negative Radiology data: Recent Impressions: RADIOLOGY - XR CHEST 2 V 01/13 1001 Report Impression - Status: SIGNED Entered: 01/13/2022 1323 IMPRESSION: No acute cardiopulmonary findings Impression By: [email or web address] Osito asif M.D. Diagnosis, Assessment Plan Free Text DxA P Notes Free text DxA P notes: Severe bilateral carotid stenosis * Plan for right carotid enterectomy today, CV s meryl has seen the patient * N.p.o. pending surgery * Discussed with CV surgery, hold Plavix, okay t o resume other medications including aspirin Hypertension * Controlled, will continue to monitor Hyperlipidemia * Home statin resumed History of gastric ulcer * Resume home PPI DVT prophylaxis: SCDs Quality: Gen Med Crit Care VTE Prophylaxis VTE prophylaxis initiated: yes Current Medications Current medication review: I attest that the foregoing medication list in t medical record is true, accurate, and complete to the best of my knowled ge. Advanced Care Plan 65 or Older Discussed with: patient Discussion included: living will, power of attor gamal, code status Electronically Signed by Rj Evans DO on 12/17 at 1536 RPT #:[id number] END OF REPORT 2022-01-13 14:18:00-00:00 [facility] DT Operative Note REPORT#:[id number] REPORT STATUS: Signed DATE:01/13/22 TIME: 1418 PATIENT: MARLA CAMPOS UNIT #: [id number] ROOM/BED: [place] [id number] : 45 AGE: 76 SEX: F ATTEND: Vasyl Evans DO ADM AUTHOR: Robert Gold MD * ALL edits or amendments must be made on the el ectronic/computer document * Operative Report Operative Note Note: Preoperative diagnosis:Sympt omatic severe Right internal carotid artery stenosis Postoperative diagnosis: Symptomatic severe Righ t internal carotid artery stenosis Operation: Right carotid endarterectomy Surgeon: Robert Gold MD Delivery Supervisor: Francis Urrutia Anesthesiologist: Prince Rose Marie MD Anesthesia: General endotracheal anesthesia Estimated blood loss: 20 cc Indication: Ms Campos is a v marlon pleasant 76-year-old femalemale with symptomatic right internal carotid artery stenosis and 70 to 80% left internal carotid artery stenosis. After due preop counseling he w as brought to the operating room today for right carotid endarterectomy. Findings: 1. Calcified plaque at the bifurcation of the right common carotid artery leading to a pinhole opening in the right internal carotid artery. 2. Good endpoint in the righ t internal carotid artery following endarterectomy. 3. The hypoglossal nerve was identified and protected throughout the procedure. 4. The tongue was in the midline and pat ient was moving all extremities at the end of the procedure. Procedure: Ms Campos was yissel ntified in the preop holding area and brought to the operating room and placed supine on the operatin g table. After induction of general endotracheal anesthesia at the right maryuri e of the neck was prepped and draped in standard surgical fashion. A 4 cm inci jose was made along the anterior border of the middle third right sterno cleidomastoid. Platysma was divided with Bovie cautery. The deep cervical fa scia was opened. The facial vein was identified dissected ligated and divide d. Hypoglossal nerve was identified and protected throughout the procedur e. The right common carotid artery, the right internal carotid artery, and r ight external carotid artery were identified, dissected and isolated. Patient was heparinized with 7000 units of heparin. After waiting for 3 minutes th e bifurcation of the right common carotid artery was isolated with 3 profun da clamp. Arteriotomy was performed on the right common carotid artery and extended onto the right internal carotid artery usin marianna Freitas scissors. A Poole shunt was then placed in the right common and internal carotid artery. Ne xt using a Pioche dissector endarterectomy of the right common and internal carotid artery was performed. Endarterectomy of the right external carotid artery was performed using eversion technique. There was a good endpoint in the righ t internal carotid artery. Next patch repair of the rig ht common and internal carotid artery was performed using bovine pericardial patch and running 6-0 P rolene suture. Prior to tying the patch down Poole shunt was removed and care ful dilation was performed. Next 7 NANO drain was placed in the wound. Hemostasis was confirmed and the neck was closed in layers using #2 Vicryl for the ike tysma and 4-0 Vicryl for the skin. Patient was extubated in the operating adolfo m and moved to PACU in stable condition. at 1421 RPT #:[id number] END OF REPORT 2022-01-12 17:25:00-00:00 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 The patient is currently asymptomatic and states CV s urgery already spoke to them. She denies any recent bleeding. She denies any current chest pain, randy rtness of breath, nausea, vomiting, abdominal pain. She denies any bowel or bladder complaints. This was discussed with CV surgery with plans for carotid endarterectomy tomorrow. History Past Medical Surgical Hx Additional medical history: cad s/p PCI, anemia, hx of ulcers Additional surgical history: Hysterectomy Breast biopsy Cholecystectomy Knee Sinus surgery Family History Additional family history: Denies Social History Alcohol use: Denies EtOH use Drug use: Denies recreational drugs Smoking status: Smoking status for patients 13 years old or old er: Former Smoker Date last smoked: 07/17/89 Years smoked: 10 Pack years: 0 Additional social history: Lives at home with her in a single-story home. No stairs to enter. She is ambulatory with a single-point cane. She no longer drives her assists her with any assistance at home . Medication/Allergy-Vaccine Hx Medications: Home Medications: ASPIRIN EC (ECOTRIN) 81 MG PO DAILY [MAGNESIUM GLYCENATE] 2 TAB PO TID UBIDECARENONE (CO Q-10) 100 MG PO BID DOCUSATE SODIUM (COLACE) 100 MG PO DAILY PRN CON STIPATION [PEARLS PROBIOTIC] 1 TAB PO DAILY [COSAMIN ASU JOINT ] 1 TAB PO DAILY [MOVE FREE JOINT ] 1 TAB PO DAILY [TURMERIC ] 1,000 MG PO DAILY ATORVASTATIN (LIPITOR) 40 MG PO BEDTIME LEVOCETIRIZINE (XYZAL) 5 MG PO DAILY PANTOPRAZOLE DR (PROTONIX) 40 MG PO DAILY METOLAZONE (ZAROXOLYN) 5 MG PO DAILY PRN FLUID S WELLING [PROMETHAZINE DM] (Unknown Dose) PRN COUGH [ALBUTEROL ] FAMOTIDINE (PEPCID) 20 MG PO BEDTIME [VITAMIN D3 ] 25 MG DAILY SPIRONOLACTONE (ALDACTONE) 25 MG PO DAILY PRN ED DAY POTASSIUM CHLORIDE ER (KLOR-CON 10) 10 MEQ PO DA LIVAN PRN WHEN TAKES METOLAZONE CLOPIDOGREL (PLAVIX) 75 MG PO DAILY Allergies: Coded Allergies: [place] And Derivatives (Severe, VOMITING 2) Penicillins (Severe, INJECTION SITE SWELLING ) fludrocortisone (From FLORIN EF) (Severe, SEVERE RASH, SWELLING OF EYES 08/02/21) lansoprazole (From PREVACID) (Severe, NAUSEA, CH ILLS 08/02/21) meperidine (From DEMEROL) (Severe, VOMITING 07/17 02/04) Quinolones (Intermediate, RASH, FACIAL SWELLING 05/07/21) Sulfa (Sulfonamide Antibiotics) (Intermediate, R SONYA, EYE SWELLING 08/02/21) fluticasone furoate (From BR EO ELLIPTA) (Intermediate, HARD TO BREATH 05/07/21) rofecoxib (From VIOXX) (Intermediate, EYE AND CRISTINO DY SWELLING 05/07/21) sulfapyridine (Intermediate, EYE LID SWELLING ) vilanterol (From BREO ELLIPTA) (Intermediate, KHOURY RD TO BREATH 05/07/21) Iodinated Contrast Media (UNKNOWN 08/02/21) clotrimazole (Intermediate, UTI, RASH 08/02/21) gabapentin (Intermediate, DIZZINESS, NAUSEA, CON STIPATION 08/02/21) pregabalin (From LYRICA) (Intermediate, WATERY E YES 08/02/21) clarithromycin (From BIAXIN) (Mild, RASH, SORE T ONGUE 08/02/21) doxycycline (From PERIOSTAT) (Mild, ABDOMINAL PA IN 08/02/21) nabumetone (From RELAFEN) (Mild, ABDOMINAL PAIN 08/02/21) Review of Systems Free Text ROS Notes Free Text ROS Notes: 14 point review of systems reviewed and negative unless otherwise noted in HPI Physical Exam VS/I O: Last Documented: Result Date Time Pulse Ox 100 01/10 1440 B/P 159/69 01/10 1440 Temp 97.5 01/10 1440 Pulse 78 01/10 1440 Resp 16 01/10 1440 Patient Weight and BMI Weight (kg): 65.800 BMI: 25.7 General appearance: alert, awake, oriented Head/Eyes: clear cornea, EOMI ENT: moist mucosal membranes, normal pharynx Neck: non-tender, supple/no meningismus Cardiovascular: normal heart sounds, regular rat e rhythm Respiratory: aerating well, clear to auscultatio n, symmetric expansion Abdomen: non-tender, normal bowel sounds, soft, no distention Extremities: moves all, no edema Musculoskeletal: normal inspection, painless ran ge of motion 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: alert, oriented X 3, no motor deficit s, no sensory deficits Skin: dry, intact Diagnosis, Assessment Plan Free Text A P: Severe bilateral carotid stenosis * Plan for right carotid enterectomy ag barnes CV surgery has seen the patient * N.p.o. after midnight * Discussed with CV surgery, hold Plavix, okay t o resume other medications including aspirin Hypertension * Controlled, will continue to monitor Hyperlipidemia * Home statin resumed History of gastric ulcer * Resume home PPI DVT prophylaxis: SCDs Quality: Gen Med Crit Care VTE Prophylaxis VTE prophylaxis initiated: yes Current Medications Current medication review: I attest that the foregoing medication list in t he medical record is true, accurate, and complete to the best of my knowled ge. Advanced Care Plan 65 or Older Discussed with: patient Discussion included: living will, power of attor gamal, code status Electronically Signed by Rj Evans DO on 12/16 04/07 at 1842 RPT #:[id number] END OF REPORT 2022-01-12 13:04:00-00:00 [facility] Cardiothoracic Surgery Consult REPORT#:[id number] REPORT STATUS: Signed DATE:01/12/22 TIME: 1304 PATIENT: MARLA CAMPOS UNIT #: [id number] ROOM/BED: [place] [id number] : 45 AGE: 76 SEX: F ATTEND: Vasyl Evans DO ADM AUTHOR: Hallie Charles * ALL edits or amendments must be made on the Nellix/computer document * Yumiok Felix 01/12/22 1304: History of Present Illness HPI Chief complaint: Bilateral carotid stenosis PCP: PCP: Garth Hopkins MD Requesting Clinician Dr Whatley HPI: Very pleasant 76-year-old fe male with past medical history of stroke (2019) with residual left-sided weakness , hypertension, hyperlipidemia, CAD status post PCI/ stent x3, PAD status post ri ght SFA stent who has been admitted to the hospital today for carotid angiogram. She was found to khoury ve severe bilateral carotid stenosis with right ICA at 90 to 95% stenosis an d left ICA 70 to 80%. CV surgery consulted for carotid endarterectomy. History Past Medical History: Reports: Coronary artery disease. Additional Medical History: cad s/p PCI, anemia, hx of ulcers Additional Surgical History: Hysterectomy Breast biopsy Cholecystectomy Knee Sinus surgery Alcohol Use Denies EtOH use Drug Use Denies recreational drugs Smoking status: Smoking status for patients 13 years old or old er: Former Smoker Date last smoked: 07/17/89 Years smoked: 10 Pack years: 0 Additional Social History: Lives at home with her in a single-story home. No stairs to enter. She is ambulatory with a single-point cane. She no longer drives her assists her with any assistance at home . Medications: Home Medications: Medication Dose/Rte/Freq Days Qty Entered Last Max Daily Dose Reviewed ASPIRIN EC (ECOTRIN) 81 MG PO DAILY 05/03/21 Strength: 81 MG TAB.EC 1353 1031 [MAGNESIUM GLYCENATE] 2 TAB PO TID 05/03/2112/16 Strength: 120 MG 1354 1031 UBIDECARENONE (CO Q-10) 100 MG PO BID 05/03/21 01/12/22 Strength: 100 MG CAP 1354 1031 DOCUSATE SODIUM 100 MG PO 05/03/21 01/12/22 (COLACE) DAILY PRN 1355 1031 Strength: 100 MG CAP CONSTIPATION [PEARLS PROBIOTIC] 1 TAB PO DAILY 05/03/2101/12 Strength: 1355 1031 [COSAMIN ASU JOINT ] 1 TAB PO DAILY 05/03/21 Strength: 1356 1031 [MOVE FREE JOINT ] 1 TAB PO DAILY 05/03/2101/12 Strength: 1357 1031 [TURMERIC ] 1,000 MG PO DAILY 05/03/21 01/12/22 Strength: 1357 1031 ATORVASTATIN (LIPITOR) 40 MG PO BEDTIME 1 01/12/22 Strength: 40 MG TAB 1107 1031 LEVOCETIRIZINE (XYZAL) 5 MG PO DAILY 05/08/21 0 01/12/22 Strength: 5 MG TAB [address] 40 MG PO DAILY 08/02/21 2 (PROTONIX) 1433 1031 Strength: 40 MG TAB.DR METOLAZONE (ZAROXOLYN) 5 MG PO 11/01/21 2 Strength: 5 MG TAB DAILY PRN FLUID 1434 1031 SWELLING [PROMETHAZINE DM] (Unknown Dose) 11/01/21 Strength: (Unknown PRN COUGH 1435 1031 Strength) [ALBUTEROL ] 11/01/21 01/12/22 Strength: 1436 1031 FAMOTIDINE (PEPCID) 20 MG PO BEDTIME 11/01/21 0 01/12/22 Strength: 20 MG TAB 1437 1031 [VITAMIN D3 ] 25 MG DAILY 11/01/21 01/12/22 Strength: 1437 1031 SPIRONOLACTONE 25 MG PO 11/01/21 01/12/22 (ALDACTONE) DAILY PRN EDEMA 1434 1031 Strength: 25 MG TAB POTASSIUM CHLORIDE ER 10 MEQ PO 01/10/22 (KLOR-CON 10) DAILY PRN WHEN 1429 1031 Strength: 10 MEQ TAB.SA TAKES METOLAZONE CLOPIDOGREL (PLAVIX) 75 MG PO DAILY 90 90 05/0501/12/22 Strength: 75 MG TAB 1545 1031 Current Hospital Medications: Antihistamine Drugs Sig/Nellie Start time Last Medication Dose Route Stop Time Status Admin Diphenhydramine HCl 0 .STK-MED ONE 01/12 1133 D C 01/12 (BENADRYL) .ROUTE 1146 Autonomic Drugs Sig/Nellie Start time Last Medication Dose Route Stop Time Status Admin Atropine Sulfate 0.5 MG ASDIR PRN 01/12 1215 AC (ATROPINE SULFATE IV 01/13 1209 0.1MG/ML SYR) Blood Formation,Coagulation Sig/Nellie Start time Last Medication Dose Route Stop Time Status Admin Heparin Sodium/ 1,500 ML .STK-MED ONE 01/12 104 3 DC 01/12 Sodium Chloride IV 1146 (HEPARIN 1,000 UNITS/ NS 500ML) Cardiovascular Drugs Sig/Nellie Start time Last Medication Dose Route Stop Time Status Admin Lidocaine HCl 0 .STK-MED ONE 01/12 1043 DC 12/16 9 (LIDOCAINE HCL/PF) .ROUTE 1146 Central Nervous System Agents Sig/Nellie Start time Last Medication Dose Route Stop Time Status Admin Fentanyl Citrate 0 .STK-MED ONE 01/12 1124 DC 0 01/12 (SUBLIMAZE) .ROUTE 1146 Midazolam HCl 0 .STK-MED ONE 01/12 1124 DC (VERSED) .ROUTE 1146 Diagnostic Agents Sig/Nellie Start time Last Medication Dose Route Stop Time Status Admin Iopamidol 0 .STK-MED ONE 01/12 1043 DC 01/12 (ISOVUE-370 100ML) IV 1146 Electrolytic, Caloric, And Cody Sig/Nellie Start time Last Medication Dose Route Stop Time Status Admin Sodium Chloride 1,000 ML .[id number] 01/12 1215 AC (SODIUM CHLORIDE IV 01/12 1534 0.9%) Sodium Chloride 500 ML ASDIR PRN 01/12 1215 AC (SODIUM CHLORIDE IV 01/13 1209 0.9%) Hormones And Synthetic Substit Sig/Nellie Start time Last Medication Dose Route Stop Time Status Admin Methylprednisolone 0 .STK-MED ONE 01/12 1133 DC 01/12 Sodium Succinate .ROUTE 1146 (Solu-Medrol 125 MG Vial) Allergies: Coded Allergies: [place] And Derivatives (Severe, VOMITING 2) Penicillins (Severe, INJECTION SITE SWELLING ) fludrocortisone (From FLORIN EF) (Severe, SEVERE RASH, SWELLING OF EYES 08/02/21) lansoprazole (From PREVACID) (Severe, NAUSEA, CH ILLS 08/02/21) meperidine (From DEMEROL) (Severe, VOMITING 07/17 02/04) Quinolones (Intermediate, RASH, FACIAL SWELLING 05/07/21) Sulfa (Sulfonamide Antibiotics) (Intermediate, R SONYA, EYE SWELLING 08/02/21) fluticasone furoate (From BR EO ELLIPTA) (Intermediate, HARD TO BREATH 05/07/21) rofecoxib (From VIOXX) (Intermediate, EYE AND CRISTINO DY SWELLING 05/07/21) sulfapyridine (Intermediate, EYE LID SWELLING ) vilanterol (From BREO ELLIPTA) (Intermediate, KHOURY RD TO BREATH 05/07/21) Iodinated Contrast Media (UNKNOWN 08/02/21) clotrimazole (Intermediate, UTI, RASH 08/02/21) gabapentin (Intermediate, DIZZINESS, NAUSEA, CON STIPATION 08/02/21) pregabalin (From LYRICA) (Intermediate, WATERY E YES 08/02/21) clarithromycin (From BIAXIN) (Mild, RASH, SORE T ONGUE 08/02/21) doxycycline (From PERIOSTAT) (Mild, ABDOMINAL PA IN 08/02/21) nabumetone (From RELAFEN) (Mild, ABDOMINAL PAIN 08/02/21) Review of Systems Review of Systems Constitutional: Denies: fever, malaise. Allergy/Immun: Denies: allergic reaction. Cardiovascular: Denies: chest pain, palpitations. Heme: Denies: bleeding. Neuro: Denies: dizziness, headache. Objective Physical Exam VS/I O: Last Documented: Result Date Time Pulse Ox 100 01/10 1440 B/P 159/69 01/10 1440 Temp 97.5 01/10 1440 Pulse 78 01/10 1440 Resp 16 01/10 1440 PATIENT WEIGHT: Weight (lb): 145 Weight (oz): 1.03 Weight (kg): 65.800 General appearance: alert, oriented, mental stat us normal, no respiratory distress HEENT: anicteric Neck: non-tender, supple/no meningismus Cardiovascular: normal heart sounds, regular rat e rhythm Respiratory: aerating well, symmetric expansion, no distress Abdomen: soft, non-tender, no distention Extremities: moves all 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: alert, oriented X 3, normal speech, n o motor deficits Psychiatry: normal affect, normal mood Diagnosis, Assessment Plan Free Text A P: Very pleasant 76-year-old fe male with past medical history of stroke (2019) with residual left-sided weakness , hypertension, hyperlipidemia, CAD status post PCI/ stent x3, PAD status post ri ght SFA stent who has been admitted to the hospital today for carotid angiogram. She was found to khoury ve severe bilateral carotid stenosis with right ICA at 90 to 95% stenosis an d left ICA 70 to 80%. CV surgery consulted for carotid endarterectomy. PLAN Patient had severe bilateral carotid stenosis, r ight greater than left. She will benefit from carotid endarterectomy . Dr. Gold explained to the patient the procedure, risks involved, benefits, complic ations and alternatives. Patient acknowledged understanding and is willin g to proceed. She will be admitted to the hospital for right C EA tomorrow Please obtain consent N.p.o. after midnight Thank you for the consultation. Assessment and p mason reviewed with mother Robert Christina 01/28/22 0718: Attestations Physician Attestation Agree w/findings plan: I have seen and examined Mr. Campos. I agree wit h the findings and plan as documented by CALEB Darden. Briefly, 76-year-old female with severe bilatera l internal carotid artery stenosis, right more than left. Patient will placido efit from carotid endarterectomy. I had a long discussion with the patient, explained to her the procedure, risk involved, be nefit, alternatives, and complications. Patient has agreed for the procedure, and making arr angement for her to have right carotid endarterectomy tomorrow. Thank you for the kind consult at [id number] at 0742 RPT #:[id number] END OF REPORT 2022-01-12 13:03:00-00:00 [id number] [place] [address] PATIENT NAME: MARLA CAMPOS ADMIT DATE: 01/12/22 ACCOUNT NO: [id number] ROOM NO: [facility] AGE: 76 REPORT TYPE: CARDIAC CATHETERIZATION REPORT SEX: F ADMITTING PHYSICIAN:Rj Evans DO ATTENDING PHYSICIAN:Rj Evans DO PROCEDURE DATE: 01/12/2022 PROCEDURE PERFORMED: Bilateral selective carotid angiogram. INDICATIONS: Severe carotid stenosis by Doppler. ACCESS: Right femoral artery, 5-Cymro closed wi th Mynx closure device. COMPLICATIONS: None. BLEEDING: Less than 10 mL. TOTAL SEDATION TIME: 40 minutes. DESCRIPTION OF PROCEDURE: After risks, benefits, and alternatives were explained, the patient agreed to proceed and sig cynthia informed consent. The patient was brought into the cardiac catheteriza tion laboratory, prepped and draped in usual sterile fashion. Then, I accesse d the right femoral artery using micropuncture kit, ultrasound guidance and fluoroscopy and placed a 5-Cymro [place] sheath and took a 5-Cymro 3DRC catheter into the aortic root and engaged the brachiocephalic artery and then selectively engaged the right common carotid artery and performed an angiogram and then selectively engaged the left common carotid artery and performed sean ective angiogram and then removed the catheter and the sheath and Mynx dev ice was used for closure with good hemostasis. FINDINGS: 1. Right common carotid artery is clean. No sten osis. 2. Right internal carotid artery ostially has 90 % to 95% stenosis. 3. Left common carotid artery distally, there is about 20% stenosis. 4. The left internal carotid artery is ostially occluded 70% to 80% stenosis. 5. Both left and right external carotid arteries are patent. CONCLUSION: Severe right and left internal carot id artery stenosis, worse on the right. PLAN: Consult CT Surgery for carotid endarterect [place] of the right internal carotid artery first and the n the left internal carotid artery at a later time. Dictated By: Devon Whatley MD WT: CATH:ROBERTO/MICHAEL/MOIRA PATIENT NAME: MARLA CAMPOS 745 Conf#: [id number]/DID#: [id number] Authenticated by Devon Whatley MD On 05/18/2022 09:55:41 AM Electronically Signed by Devon Whatley MD on at 0955 PATIENT NAME: MARLA CAMPOS 745 2022-01-10 13:11:00-00:00 [id number] [place] [address] PATIENT NAME: MARLA CAMPOS ADMIT DATE: ACCOUNT NO: [id number] ROOM NO: AGE: 76 REPORT TYPE: eELECTROCARDIOGRAM REPORT SEX: F ADMITTING PHYSICIAN: ATTENDING PHYSICIAN:Devon Whatley MD Order: [id number] Test Reason : PREOP Test Date/Time Stamp: MonJan 10 2022 13:11:39 Blood Pressure : / mmHG Vent. Rate : 057 BPM Atrial Rate : 057 BPM P-R Int : 152 ms QRS Dur : 092 ms QT Int : 420 ms P-R-T Axes : 064 058 071 degree s QTc Int : 408 ms Sinus bradycardia with sinus arrhythmia Abnormal ECG PRE_OP Confirmed by JOSE R CALDERON MD ([id number]) on 01/11/20 5:04:05 PM Referred By: Devon Whatley Confirmed by:JOSE R RIVERA MD at 1704 PATIENT NAME: MARLA CAMPOS 745 2021-11-03 11:00:00-00:00 [id number] [address] PATIENT NAME: MARLA CAMPOS ADMIT DATE: 11/03/21 ACCOUNT NO: [id number] ROOM NO: AGE: 75 REPORT TYPE: CARDIAC CATHETERIZATION REPORT SEX: F ADMITTING PHYSICIAN: ATTENDING PHYSICIAN:Devon Whatley MD PROCEDURE DATE: 11/03/2021 PROCEDURE PERFORMED: Bilateral selective periphe ral angiogram. INDICATIONS: Severe pain of left lower extremity with Doppler findings suggestive of severe distal SFA stenosis. ACCESS: Right femoral artery, 6-Cymro closed wi th manual pressure. COMPLICATIONS: None. BLEEDING: Less than 10 mL. TOTAL SEDATION TIME: 25 minutes. DESCRIPTION OF PROCEDURE: After risks, benefits explained, the patient agreed to proceed and signed informed consent. The patient was brought to the cardiac catheterization laboratory, prepped and draped in usual sterile fashion. Then, I accessed right femoral art marlon using micropuncture kit, ultrasound guidance and fluoroscopy and then we placed a 6-Cymro sheath . Then, I took a crossover catheter into the distal aorta crossing the othe r side and advanced the Omniflush catheter into the proximal iliac arter y and selective angiogram was done with runoff all the way to the foot and then advanced the catheter into the SFA and took another selective angiogram of the left SFA all the way to the foot. Subsequently, catheter was pulled back into the right common iliac artery and an angiogram with runoff was done an d then removed the catheter and sheath and manual pressure was applied with good hemost asis. FINDINGS: 1. Bilateral iliacs are patent. 2. The right femoral artery has a focal 50% to 6 0% stenosis with good flow. The left femoral artery is clean. Bilateral prof unda are clean. 3. Right SFA widely patent stent with 10% to 20% ISR and distal to the stent, there is 20% to 30% stenosis, 3-vessel runoff al l the way patent to the foot. 4. The left SFA is with diff use 20% to 30% stenosis in the mid portion and then 30% to 40% stenosis distally. 5. Below the knee, 3-vessel runoff widely patent all the way to the foot. CONCLUSION: 1. Patent right SFA stent. 2. Moderate peripheral vascular disease otherwis e. PLAN: Plan for medical management for now and re peat arterial Doppler in 6 PATIENT NAME: MARLA CAMPOS 531 months. Dictated By: Devon Whatley MD WT: CATH:ROBERTO/MICHAEL/NTS Conf#: [id number]/DID#: [id number] Authenticated by Devon Whatley MD On 11/17/2021 09:19:17 AM Electronically Signed by Devon Whatley MD on at 0919 PATIENT NAME: MARLA CAMPOS 531 2021-11-01 13:47:00-00:00 [id number] [place] [address] PATIENT NAME: MARLA CAMPOS ADMIT DATE: ACCOUNT NO: [id number] ROOM NO: AGE: 75 REPORT TYPE: eELECTROCARDIOGRAM REPORT SEX: F ADMITTING PHYSICIAN: ATTENDING PHYSICIAN:Devon Wahtley MD Order: [id number] Test Reason : PREOP Test Date/Time Stamp: MonNov 01 2021 13:47:13 Blood Pressure : / mmHG Vent. Rate : 071 BPM Atrial Rate : 071 BPM P-R Int : 144 ms QRS Dur : 094 ms QT Int : 412 ms P-R-T Axes : 070 040 070 degree s QTc Int : 447 ms Normal sinus rhythm Incomplete right bundle branch block Septal infarct , age undetermined Abnormal ECG PRE_OP Confirmed by JOSE R CALDERON MD ([id number]) on 11/02/19 4:15:40 PM Referred By: Devon Whatley Confirmed by:JOSE R RIVERA MD at 7229 PATIENT NAME: MARLA CAMPOS 531 2021-08-10 07:35:00-00:00 [id number] [address] PATIENT NAME: MARLA CAMPOS ADMIT DATE: 08/04/21 ACCOUNT NO: [id number] ROOM NO: G.6605 AGE: 75 REPORT TYPE: OPERATIVE REPORT SEX: F ADMITTING PHYSICIAN:Devon Whatley MD ATTENDING PHYSICIAN:Devon Whatley MD OPERATION DATE: 08/04/2021 PREOPERATIVE DIAGNOSIS: POSTOPERATIVE DIAGNOSIS: PROCEDURES PERFORMED: 1. Peripheral angiogram with runoff. 2. CSI atherectomy of severe distal right SFA st enosis followed by balloon angioplasty and stent placement of 6 x 100 mm se lf-expanding stent. SURGEON: Devon Whatley MD ELECTRONIC WARFARE TECHNICIAN: ANESTHESIA: COMPLICATIONS: None. BLOOD LOSS: Less than 10 mL. DESCRIPTION OF PROCEDURE: After risks, benefits, and alternatives were explained, the patient agreed to proceed and sig cynthia informed consent. The patient was brought to the cardiac catheterizati on laboratory, prepped and draped in usual sterile fashion and then we gave fentanyl and Versed in incremental doses to achieve adequate moderate sedation, then accessed the right femoral artery using micropuncture kit a nd ultrasound guidance fluoroscopy and placed a 5-Cymro sheath and took a short pigtai l distal aorta and performed distal aortogram with runoff and planned to intervene on the distal SFA heavily calcified severe stenosis. Then, obtained access in the left femoral artery using micropuncture kit and ultrasound guidance as well as fluoroscopy and placed a 6-Cymro sheath and then I took an Omniflush catheter into the distal aorta with a [place] Advantage wire, crossed over to the other side and placed the wire distally in the SFA and then exchan ged the 6-Cymro [place] sheath for a short 6-Cymro Destination sheath and pl aced in the right SFA and then, took a 1.5 solid crown of CSI and did the CSI atherecto my at low and medium speed multiple runs and then balloon angioplas ty was obtained and the dissection was left behind, so decided to place a 6 x 100 mm se lf-expanding stent, which was postdilated using a 6 x 80 mm balloon. Final res ults were satisfactory with excellent expansion of the stent. Then, removed the wire and the sheath was removed and manual pressure was applied on the l eft side and a sheath on the right side was removed and used a ProGlide for c losure. The patient was given heparin throughout the procedure to assure ACT l evel above 250 loaded with PATIENT NAME: MARLA CAMPOS 494 Plavix and aspirin. CONCLUSION: Successful CSI a therectomy and stent placement of the distal severe SFA is heavily calcified stenosis. PLAN: Discharge home once criteria are met to go to home on aspirin, statin, and Plavix and follow up with me in the office i n 2 weeks. Dictated By: Devon Whatley MD WT: OP:HALLIE/MICHAEL/MOIRA Conf#: [id number]/DID#: [id number] Authenticated by Devon Whatley MD On 08/25/2021 12:29:58 PM Electronically Signed by Devon Whatley MD on at 1229 PATIENT NAME: MARLA CAMPOS 494 2021-08-06 11:33[facility]00-00:00 [facility] REPORT#:[id number] REPORT STATUS: Signed DATE:08/06/21 TIME: 1133 PATIENT: MARLA CAMPOS UNIT #: [id number] ROOM/BED: [address] : 45 AGE: 75 SEX: F ATTEND: Francisco Whatley MD ADM AUTHOR: Brenda Cali KETTLE COORDINATOR * ALL edits or amendments must be made on the el [employer]/computer document * PCP PCP PCP: PCP: Garth Hopkins MD Discharge to: home General Information Problem List/A P: 1. Peripheral artery disease 2. CAD (coronary artery disease) Date of admission: Observation Start Date: Date of admission: 08/04/21 Discharge date: 08/06/21 Admission diagnosis: PAD Discharge diagnosis: PAD s/p peripheral angioplasty with stent place ent Hospital course: 75 YO female with PMHx of CA D s/p stent placement (04/2021) who has been having intermittent claudication li miting mobility. She was brought in electively on and underwent succes sful peripheral angioplasty with stent placement by Dr. Whatley. She was suppose to go home, however, she developed Right groin hematoma that was resolved after after manual pr essure. She was observed overnight in 6HT. However, o vernight she developed sizeable left groin hematoma and >2 grams dropped in hemo globn. She was also volume overloaded. She was given IV lasix and was kept for one more night to [facility] closely. Today she looks well. Left groin hematoma st able. SOB resolved. Pedal pulses strong by doppler. She will be discharged home on the same medications. Advised to follow-up with Dr. Whatley next week. Med Rec PCP PCP: PCP: Garth Hopkins MD Med Rec Discharge meds: Continue taking these medications: ASPIRIN EC (ECOTRIN) 81 MG TAB.EC 81 MILLIGRAM ORAL DAILY. [MAGNESIUM GLYCENATE] 120 MG 2 TABLET ORAL THREE TIMES A DAY. UBIDECARENONE (CO Q-10) 100 MG CAP 100 MILLIGRAM ORAL TWICE DAILY. DOCUSATE SODIUM (COLACE) 100 MG CAP 100 MILLIGRAM ORAL DAILY. as needed for CONSTIP ATION [PEARLS PROBIOTIC] 1 TABLET ORAL DAILY. [COSAMIN ASU JOINT ] 1 TABLET ORAL DAILY. Instructions: JOINT HEALTH ONE A DAY [MOVE FREE JOINT ] 1 TABLET ORAL DAILY. Instructions: JOINT HEALTH ONE A DAY [TURMERIC ] 1,000 MILLIGRAM ORAL DAILY. ATORVASTATIN (LIPITOR) 40 MG TAB 40 MILLIGRAM ORAL BEDTIME. SPIRONOLACTONE (ALDACTONE) 50 MG TAB 50 MILLIGRAM ORAL DAILY. METOLAZONE (ZAROXOLYN) 5 MG TAB 5 MILLIGRAM ORAL MONDAY,MONDAY POTASSIUM CHLORIDE ER (MICRO-K) 10 MEQ CAP.SA 2 CAPSULE ORAL THREE TIMES A DAY. CLOPIDOGREL (PLAVIX) 75 MG TAB 75 MILLIGRAM ORAL DAILY. Days = 90 Qty = 90 ESTROGENS,CONJ (PREMARIN 0.625 MG/GM VAGINAL) 0. 625 MG/GRAM CREAM 0.5 GRAM VAGINAL TWICE A WEEK PROMETHAZINE/DEXTROMETHORPHAN (PHENERGAN DM 6.25-15 MG/5ML) 6.25 MG-15 MG/5 ML SYRUP 5 MILLILITERS ORAL EVERY 6 HOURS NEEDED. as needed for COUGH ALBUTEROL (ALBUTEROL NEB SOLN 0.021%) 0.63 MG/3 ML VIAL.NEB 0.63 MILLIGRAM INHALATION RT - EVERY 6 HOURS NEEDED. as needed for SOB LEVOCETIRIZINE (XYZAL) 5 MG TAB 5 MILLIGRAM ORAL DAILY. PANTOPRAZOLE DR (PROTONIX) 40 MG TAB.DR 40 MILLIGRAM ORAL DAILY. CHOLECALCIFEROL (VITAMIN D3) (VITAMIN D3) 1,000 UNIT CAP 1,000 UNITS ORAL DAILY. Objective VS/I O Last Documented: Result Date Time Pulse Ox 95 08/06 1040 B/P 112/65 08/06 1040 B/P Mean 80.9 08/06 1040 O2 Delivery Room air 08/06 1040 Temp 36.8 08/06 1040 Pulse 71 08/06 1040 Resp 15 08/06 1040 24 hour I O ending at 0700: 08/06 0700 08/05 1900 Intake Total Output Total Balance Number Voids 1 PATIENT WEIGHT: Weight (lb): 145 Weight (oz): 8.08 Weight (kg): 66.000 General appearance: alert, awake, oriented Neck: full range of motion, non-tender, no JVD Cardiovascular: regular rate rhythm Respiratory: clear to auscultation, no distress, no tenderness, aerating well GI: soft, non-tender, no guarding, no rebound, n o distention Genitourinary: not indicated Extremities: moves all, no edema-all extremities Musculoskeletal: full range of motion 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: alert, oriented X 3 Skin: dry, intact Wound/incision: Location: left groin hematoma stable Psychiatry: no hallucinations Results Findings/Data: Laboratory Tests: 08/06 0601 Hematology Hgb (11.0 - 15.0 g/dL) 8.9 L Hct (33.0 - 45.0 %) 27.4 L Results: labs reviewed, vital signs stable, rhyt hm personally rev'd Discharge Instructions PCP PCP: PCP: Garth Hopkins MD )( Discharge to: Home/Self Care Discharge Instructions Additional Discharge Routines: PCP Follow-Up, Co nsultant Follow-Up )( Diet: Cardiac )( Activity: Resume Normal Activity, As Tolerate d Prescriptions: continue home medications. No new prescriptions. Quality: Gen Med Crit Care Current Medications Current medication review: I attest that the foregoing medication list in t he medical record is true, accurate, and complete to the best of my knowled ge. Advanced Care Plan 65 or Older Discussed with: patient, other at 1707 Electronically Signed by Edyta Reynolds MD on at 0713 RPT #:[id number] END OF REPORT 2021-08-06 09:18:00-00:00 [facility] ([facility]) Cardiology Progress Note REPORT#:[id number] REPORT STATUS: Signed DATE:08/06/21 TIME: 917 PATIENT: MARLA CAMPOS UNIT #: [id number] ROOM/BED: [place] [address] : 45 AGE: 75 SEX: F ATTEND: Francisco Whatley MD ADM AUTHOR: Brenda Cali CNP * ALL edits or amendments must be made on the [employer]/computer document * Subjective Patient reports: No: complaints. Objective General VS/I O: 24 hour I O ending at 0700: 08/06 0700 08/05 1900 Intake Total Output Total Balance Number Voids 1 Vital Signs: Date Time Temp Pulse Resp B/P B/P Pulse O2 O2 F low FiO2 Mean Ox Delivery Rate 08/06 0716 36.9 74 15 111/65 80.5 94 Room air 08/06 0431 36.7 73 16 93/49 64.1 92 Room air 08/05 2336 36.7 79 18 103/48 66.1 97 Room air 08/05 2036 36.5 76 18 122/63 82.7 99 Room air 08/05 1536 36.8 73 15 103/63 76.1 97 Room air 08/05 1053 36.5 78 15 94/45 61.1 98 Room air PATIENT WEIGHT: Weight (lb): 145 Weight (oz): 8.08 Weight (kg): 66.000 Medications: Active Meds + DC'd Last 24 Hrs Cholecalciferol (VITAMIN D) 1,000 INTL.UNITS AWA LY PO (CKD) Pantoprazole (PROTONIX) 40 MG DAILY PO Atorvastatin Calcium (LIPITOR) 40 MG BEDTIME PO Docusate Sodium (COLACE) 100 MG DAILY PRN PO Potassium Chloride (POTASSIUM CHLORIDE 20MEQ TAB .ER) 20 MEQ DAILY PO Aspirin (ASPIRIN) 81 MG DAILY PO Clopidogrel Bisulfate (Plavix) 75 MG DAILY PO Furosemide (LASIX 20MG INJ) 20 MG ONCE ONE IV (D C) Spironolactone (ALDACTONE) 50 MG DAILY PO Atropine Sulfate (ATROPINE SULFATE 0.1MG/ML SYR) 0.5 MG ASDIR PRN IV (DC ) Sodium Chloride (SODIUM CHLORIDE 0.9%) 500 ML DIR PRN IV (DC) Physical Exam General appearance: alert, awake, oriented, no a cute distress Neck: non-tender, no JVD Cardiovascular: CV assessment: regular rate and rhythm Respiratory: clear to auscultation, no distress Abdomen: soft, non-tender, normal bowel sounds, no distention, no guarding, no mass/organomegaly Genitourinary: no flank pain, no lambert Lower extremity: LE assessment: normal temperature, no calf tend erness, no edema Musculoskeletal: normal inspection 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: alert, oriented X 3 Skin: dry, intact Wound/incision: Location: left groin hematoma unchanged from yesterday Results Findings/Data: Laboratory Tests 08/05 08/05 1415 1415 Chemistry Sodium (134 - 147 mEq/L) 142 Potassium (3.4 - 5.0 mEq/L) 3.4 Chloride (100 - 108 mEq/L) 108 Carbon Dioxide (21 - 33 mEq/l) 29 Anion Gap (0 - 20) 8 BUN (7 - 18 mg/dL) 28 H Creatinine (0.6 - 1.3 mg/dL) 1.2 Glomerular Filtr Rate (70 - 80) 43.8 L Glucose (70 - 110 mg/dL) 94 Calcium (8.0 - 10.5 mg/dL) 8.7 B-Natriuretic Peptide (0 - 100 PG/ML) 59.0 Laboratory Tests 08/06 08/05 0601 1415 Hematology WBC (4.5 - 11.0 x10 3/uL) 11.9 H RBC (3.54 - 5.02 x10 6/uL) 2.98 L Hgb (11.0 - 15.0 g/dL) 8.9 L 9.4 L Hct (33.0 - 45.0 %) 27.4 L 28.1 L MCV (81.0 - 99.0 fL) 94.3 MCH (27.0 - 33.0 pg) 31.5 MCHC (33.0 - 37.0 g/dL) 33.5 RDW (11.5 - 14.5 %) 13.0 Plt Count (150 - 400 x10 3/uL) 150 MPV (7.0 - 9.0 fL) 10.4 H Neut % (Auto) (56.0 - 77.0 %) 73.1 Lymph % (Auto) (14.0 - 32.0 %) 16.3 [place] % (Auto) (4.8 - 9.0 %) 9.4 H Eos % (Auto) (0.3 - 3.7 %) 0.1 L Baso % (Auto) (0.0 - 2.0 %) 0.3 Neut # (Auto) (2.0 - 7.6 x10 3/uL) 8.69 H Lymph # (Auto) (1.0 - 3.8 x10 3/uL) 1.94 [place] # (Auto) (0.1 - 0.8 x10 3/uL) 1.12 H Eos # (Auto) (0.0 - 0.2 x10 3/uL) 0.01 Baso # (Auto) (0.0 - 0.2 x10 3/uL) 0.03 Abs Immat Gran (auto) (0.00 - 0.03 x10 3/uL) 0. 09 H Add Manual Diff NO Immature Gran % (0.0 - 2.0 %) 0.8 Nucleated RBC % (0 - 0 %) 0.0 Nucleated RBCs # (Man) (0.0 - 0.1 x10 3/uL) 0.0 0 Laboratory Tests 08/05 1415 Chemistry B-Natriuretic Peptide (0 - 100 PG/ML) 59.0 Results: labs reviewed, vital signs stable, rhyt personally rev'd Telemetry Interpretation: sinus rhythm Diagnosis, Assessment Plan Problem List/A P: 1. Peripheral artery disease 2. CAD (coronary artery disease) Plan discussed with: patient, spouse/partner, nu rse Free Text DxA P Notes Free Text DxA P Notes: 5 YO female with PMHx of CAD s/p stent p lacement (04/2021) who has been having intermittent cl[facility]. She was brought in electively on and underwent successful peripheral taryn oplasty by Dr. Whatley. She is observed overnight in 6HT. On assessment she has left groin golf-ball size hematoma and per bedside RN the hematoma size is about the same since she came in this morning. 1. PAD s/p peripheral angioplasty and stent plac ement continue Plavix, baby ASA, statin give Plavix and ASA now pedal pulse palpable left groin hematoma -hgb 12.2->9.4->8.9 SOB resolved after one dose of IV lasix yesterda 2. CAD with prior PCI resume Plavix, ASA, statin no BB as BP is on the low side will DC her home today. Outpatient f/u with Dr. Bautista next wk. at 1645 Electronically Signed by Edyta Reynolds MD on at 0713 RPT #:[id number] END OF REPORT 2021-08-05 14:04:00-00:00 [facility] ([facility]) History Physical - Adult REPORT#:[id number] REPORT STATUS: Signed DATE:08/05/21 TIME: 1404 PATIENT: MARLA CAMPOS UNIT #: [id number] ROOM/BED: [place] [address] : 45 AGE: 75 SEX: F ATTEND: Francisco Whatley MD ADM AUTHOR: Brenda Cali CNP * ALL edits or amendments must be made on the [employer]/computer document * History of Present Illness HPI Chief complaint: intermittent claudication PCP: PCP: Garth Hopkins MD HPI: 75 YO female with PMHx of CA D s/p stent placement (04/2021) who has been having [facility]. She was brought in electively on and underwent successful peripheral taryn oplasty by Dr. Whatley. She is observed overnight in 6HT. On assessment she has left groin golf-ball size hematoma and per bedside RN the hematoma size is about the same since she came in this morning. Informant/historian: patient, family/other at dside History Past medical history: Reports: Coronary artery disease. Additional medical history: cad s/p PCI, anemia, hx of ulcers Additional surgical history: Hysterectomy Breast biopsy Cholecystectomy Knee Sinus surgery Additional family history: Denies Alcohol use: Denies EtOH use Drug use: Denies recreational drugs Smoking status: Smoking status for patients 13 years old or old er: Former Smoker Packs per day: 0.25 Years smoked: 12 Pack years: 3.00 Additional social history: Lives at home with her in a single-story home. No stairs to enter. She is ambulatory with a single-point cane. She no longer drives her assists her with any assistance at home . Medication/Allergy-Vaccine Hx Allergies: Coded Allergies: [place] And Derivatives (Severe, VOMITING 2) Penicillins (Severe, INJECTION SITE SWELLING ) fludrocortisone (From FLORIN EF) (Severe, SEVERE RASH, SWELLING OF EYES 08/02/21) lansoprazole (From PREVACID) (Severe, NAUSEA, CH ILLS 08/02/21) meperidine (From DEMEROL) (Severe, VOMITING 07/17 02/04) Quinolones (Intermediate, RASH, FACIAL SWELLING 05/07/21) Sulfa (Sulfonamide Antibiotics) (Intermediate, R SONYA, EYE SWELLING 08/02/21) fluticasone furoate (From BR EO ELLIPTA) (Intermediate, HARD TO BREATH 05/07/21) rofecoxib (From VIOXX) (Intermediate, EYE AND CRISTINO DY SWELLING 05/07/21) sulfapyridine (Intermediate, EYE LID SWELLING ) vilanterol (From BREO ELLIPTA) (Intermediate, KHOURY RD TO BREATH 05/07/21) Iodinated Contrast Media (UNKNOWN 08/02/21) clotrimazole (Intermediate, UTI, RASH 08/02/21) gabapentin (Intermediate, DIZZINESS, NAUSEA, CON STIPATION 08/02/21) pregabalin (From LYRICA) (Intermediate, WATERY E YES 08/02/21) clarithromycin (From BIAXIN) (Mild, RASH, SORE T ONGUE 08/02/21) doxycycline (From PERIOSTAT) (Mild, ABDOMINAL PA IN 08/02/21) micahe (From RELAFEN) (Mild, ABDOMINAL PAIN 08/02/21) Ambulatory status: Independent Review of Systems Constitutional: Reports: generalized weakness. Respiratory: Reports: SOB. Cardiovascular: Denies: chest pain, palpitations. GI: Denies: abdominal pain, nausea, vomiting. Heme: Reports: other (hematoma - left groin). Physical Exam VS/I O Vital Signs: Date Time Temp Pulse Resp B/P B/P Pulse O2 O2 F low FiO2 Mean Ox Delivery Rate 08/05 1053 36.5 78 15 94/45 61.1 98 Room air 08/05 0712 36.6 70 15 106/64 77.9 99 Room air 08/05 0357 36.4 76 18 94/54 67.6 98 Room air 08/04 2341 36.6 69 18 108/61 76.7 96 Room air 08/04 2059 36.4 72 18 119/67 84.2 95 Room air PATIENT WEIGHT: Weight (lb): 145 Weight (oz): 8.08 Weight (kg): 66.000 General appearance: alert, awake, oriented, no a cute distress, pleasant, conversational ENT: moist mucosal membranes, normal nose Neck: non-tender, no JVD Cardiovascular: regular rate rhythm, pedal pulse s present Respiratory: shortness of breath, no distress Abdomen/GI: active bowel sounds, soft, n on-tender, no guarding, no rebound, no distention, no mass/organome alanna, no pulsatile mass, no hernia, normal abdominal aorta Extremities: moves all, no calf tenderness, no c yanosis, no pedal edema, no peripheral edema Musculoskeletal: normal inspection 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: alert, oriented X 3 Skin: dry, intact, no gross abnormalities Psychiatry: no hallucinations, normal affect, no rmal judgment/insight, normal mood, not homicidal, not suicidal Results Findings/Data: Laboratory Tests: 08/04 08/04 08/04 08/04 08/04 1902 1755 1658 1554 1519 Coagulation Activated Coag Time (74 - 137 SEC) 154 H 178 H 207 H 243 H 237 H Results: no new labs, vital signs stable Diagnosis, Assessment Plan Problem List/A P: 1. Peripheral artery disease 2. CAD (coronary artery disease) Plan discussed with: patient, spouse/partner, nu rse Code Status/Resusc. Discussion Resuscitation discussion: Discussed with: patient, family Code status: full code Free Text DxA P Notes Free Text DxA P Notes: 75 YO female with PMHx of CA D s/p stent placement (04/2021) who has been having intermittent claudication li miting mobility. She was brought in electively on and underwent successful peripheral taryn oplasty by Dr. Whatley. She is observed overnight in 6HT. On assessment she has left groin golf-ball size hematoma and per bedside RN the hematoma size is about the same since she came in this morning. 1. PAD s/p peripheral angioplasty continue Plavix, baby ASA, statin give Plavix and ASA now pedal pulse palpable left groin hematoma -hgb 9.4 today, hgb was 12.2 on 08/02/21 She is also slightly dyspneic - will give IV las ix 20 mg x1 2. CAD with prior PCI resume Plavix, ASA, statin no BB as BP is on the low side Home later this evening. Quality: Gen Med Crit Care Current Medications Current medication review: I attest that the foregoing medication list in t medical record is true, accurate, and complete to the best of my knowled ge. Advanced Care Plan 65 or Older Discussed with: patient, other at 1545 Electronically Signed by Edyta Reynolds MD on at 0713 RPT #:[id number] END OF REPORT 2021-08-02 12:45:00-00:00 [id number] [place] [address] PATIENT NAME: MARLA CAMPOS ADMIT DATE: ACCOUNT NO: [id number] ROOM NO: AGE: 75 REPORT TYPE: eELECTROCARDIOGRAM REPORT SEX: F ADMITTING PHYSICIAN: ATTENDING PHYSICIAN:Devon Whatley MD Order: [id number] Test Reason : PREOP Test Date/Time Stamp: MonAug 02 2021 12:45:42 Blood Pressure : / mmHG Vent. Rate : 063 BPM Atrial Rate : 063 BPM P-R Int : 142 ms QRS Dur : 090 ms QT Int : 386 ms P-R-T Axes : 066 015 048 degree s QTc Int : 395 ms Normal sinus rhythm Normal ECG PRE_OP Confirmed by JOSE R CALDERON MD ([id number]) on 08/02/19 1:13:43 PM Referred By: Devon Whatley Confirmed by:JOSE R RIVERA MD at 1313 PATIENT NAME: MARLA CAMPOS 494 2021-05-15 09:47:00-00:00 [facility] ([facility] Discharge Summary REPORT#:[id number] REPORT STATUS: Signed DATE:05/15/21 TIME: 946 PATIENT: MARLA CAMPOS UNIT #: [id number] ROOM/BED: [place] [address] : 45 AGE: 75 SEX: F ATTEND: Leroy Bishop DO ADM AUTHOR: Rj Evans DO * ALL edits or amendments must be made on the [employer]/computer document * General Information Problem List/A P: 1. Upper GI bleed A P Likely due to gastric ulcer in the setting of a spirin and Plavix Continue PPI per gastroenterology GI seen, s/p EGD. Given recent stent placement, benefits outweigh risk of ongoing dual antiplatelet therapy 2. CAD (coronary artery disease) A P Patient just had stents ike madisyn on 05/05/2021, will need to continue aspirin and Plavix at this time Continue Lipitor 40 mg at bedtime Patient had the stents placed in [place] Seen and discussed case with cardiology , cleared for discharge and outpatient follow-up including outpatie nt cardiac rehab which her certified ophthalmic assistant will set up on follow-up appointment 3. Hypotension A P Transient hypotension has r emain resolved, suspect secondary to hypovolemia and anesthesia, will continue to monitor, H H remain ed stable 4. Gastric ulcer A P Continue PPI per gastroenterology. Benefits of antiplatelet therapy outweigh risk given recent PCI 5. Hypomagnesemia A P Replacement ordered. Nga arenas reports she chronically takes magnesium 3 times a day at home and has follow-up with her PCP, will replete magnesium now and patient instructed to contin ue ongoing replacement per her PCP and monitoring as an outpatient Free Text A P: The patient was discharged on 05/12/2021 Discharge date: 05/12/21 Hospital course: 1. Upper GI bleed Likely due to gastric ulcer in the setting of a spirin and Plavix Continue PPI per gastroenterology GI seen, s/p EGD. Given recent stent placement, benefits outweigh risk of ongoing dual antiplatelet therapy 2. CAD (coronary artery disease) Patient just had stents ike madisyn on 05/05/2021, will need to continue aspirin and Plavix at this time Continue Lipitor 40 mg at bedtime Patient had the stents placed in [place] Seen and discussed case with cardiology , cleared for discharge and outpatient follow-up including outpatie nt cardiac rehab which her certified ophthalmic assistant will set up on follow-up appointment 3. Hypotension Transient hypotension has r emain resolved, suspect secondary to hypovolemia and anesthesia, will continue to monitor, H H remain ed stable 4. Gastric ulcer Continue PPI per gastroenterology. Benefits of antiplatelet therapy outweigh risk given recent PCI 5. Hypomagnesemia Replacement ordered. Nga arenas reports she chronically takes magnesium 3 times a day at home and has follow-up with her PCP, will replete magnesium now and patient instructed to contin ue ongoing replacement per her PCP and monitoring as an outpatient Consultants: gastroenterology Med Rec Med Rec Discharge meds: Stop taking the following medications: OMEPRAZOLE ER (PriLOSEC) 40 MG CAP.DR 40 MILLIGRAM ORAL TWICE DAILY. Continue taking these medications: ASPIRIN EC (ECOTRIN) 81 MG TAB.EC 81 MILLIGRAM ORAL DAILY. [MAGNESIUM GLYCERINAT] Instructions: TAKES 120MG 2 TABLETS THREE TIMES A DAY UBIDECARENONE (CO Q-10) 100 MG CAP 100 MILLIGRAM ORAL TWICE DAILY. DOCUSATE SODIUM (COLACE) 100 MG CAP 100 MILLIGRAM ORAL DAILY. as needed for CONSTIP ATION [PEARLS PROBIOTIC] Instructions: ONE A DAY [VITAMIN D3] Instructions: TAKES 25MG ONCE DAY [COSAMIN ASU JOINT ] Instructions: JOINT HEALTH ONE A DAY [MOVE FREE JOINT ] Instructions: JOINT HEALTH ONE A DAY [TUMERIC ] Instructions: 1000MG ONE A DAY ATORVASTATIN (LIPITOR) 40 MG TAB 40 MILLIGRAM ORAL BEDTIME. SPIRONOLACTONE (ALDACTONE) 50 MG TAB 50 MILLIGRAM ORAL DAILY. METOLAZONE (ZAROXOLYN) 5 MG TAB 5 MILLIGRAM ORAL MONDAY,MONDAY POTASSIUM CHLORIDE ER (MICRO-K) 10 MEQ CAP.SA 2 CAPSULE ORAL THREE TIMES A DAY. CLOPIDOGREL (PLAVIX) 75 MG TAB 75 MILLIGRAM ORAL DAILY. Days = 90 Qty = 90 ESTROGENS,CONJ (PREMARIN 0.625 MG/GM VAGINAL) 0. 625 MG/GRAM CREAM 0.5 GRAM VAGINAL TWICE A WEEK PROMETHAZINE/DEXTROMETHORPHAN (PHENERGAN DM 6.25-15 MG/5ML) 6.25 MG-15 MG/5 ML SYRUP 5 MILLILITERS ORAL EVERY 6 HOURS NEEDED. as needed for COUGH ALBUTEROL (ALBUTEROL NEB SOLN 0.021%) 0.63 MG/3 ML VIAL.NEB 0.63 MILLIGRAM INHALATION RT - EVERY 6 HOURS NEEDED. as needed for SOB LEVOCETIRIZINE (XYZAL) 5 MG TAB 5 MILLIGRAM ORAL DAILY. Start taking the following new medications: PANTOPRAZOLE DR (PROTONIX) 40 MG TAB.DR 40 MILLIGRAM ORAL EVERY 12 HOURS. Qty = 60 No Refills Discharge Instructions PCP )( Follow up labs, proc, tx: Keep a log of your blood pressure and heart rate at least twice a day for your PCP. Monitor for any recur rence of bleeding. Monitor your magnesium level with you r PCP. Continue taking your home magnesium. Can use ro lling walker for stability. Continue Protonix twice a day. )( Discharge to: Home/Self Care Discharge Instructions Additional Discharge Routines: PCP Follo w-Up, Oil Field Tester Follow-Up, Equipment/ Supplies, F/U Labs/Procedures )( Diet: Cardiac )( Activity: Walk with Assistance )( Equipment/supplies: Rolling walker Follow-up Appointments PCP follow up: PCP: No Primary or Family Physician PCP follow up timeframe: In 3 days Special instructions: CALL TO SCHEDULE APPOINTMENT Attending Physician: Attending Physician: Arun Bishop DO Consulting provider 1: Provider 1: Devon Whatley MD Specialty: CardiologyInterventional Consult follow up timeframe: In 1-2 weeks Special instructions: CALL TO SCHEDULE APPOINTMENT Consulting provider 2: Provider 2: Eric Hall MD Specialty: Gastroenterology Follow up timeframe: In 1-2 weeks Special instructions: CALL TO SCHEDULE APPOINTMENT Quality: Gen Med Crit Care VTE Prophylaxis VTE prophylaxis initiated: yes Current Medications Current medication review: I attest that the foregoing medication list in t he medical record is true, accurate, and complete to the best of my knowled ge. Advanced Care Plan 65 or Older Discussed with: patient Discussion included: living will, power of attor gamal, code status Electronically Signed by Rj Evans DO on 04/18 at 0948 RPT #:[id number] END OF REPORT 2021-05-12 14:39:00-00:00 [facility] Hospitalist Progress Note REPORT#:[id number] REPORT STATUS: Signed DATE:05/12/21 TIME: 1439 PATIENT: MARLA CAMPOS UNIT #: [id number] ROOM/BED: [place] [address] : 45 AGE: 75 SEX: F ATTEND: Leroy Bishop DO ADM AUTHOR: Rj Evans DO * ALL edits or amendments must be made on the [employer]/computer document * Subjective Comments: Patient seen and examined, at bedside. D enies any bleeding. No new events. Patient wants to go home. No overnight e vents per RN. Discussed case with case management as well as cardiology Objective General VS/I O: Vital Signs: Date Time Temp Pulse Resp B/P B/P Pulse O2 O2 F low FiO2 Mean Ox Delivery Rate 05/12 1056 97.7 68 15 123/71 88.3 96 Room air 05/12 0708 97.7 62 18 125/67 86.3 97 Room air 05/12 0426 97.9 64 17 116/70 85.6 95 05/12 0006 98.1 64 13 127/67 86.7 97 Room air 05/11 1916 97.7 65 15 118/65 82.9 97 Room air 05/11 1658 97.3 65 17 119/67 84.5 97 Room air 24 hour I O ending at 0700: 05/12 0700 05/11 1900 Intake Total Output Total Balance Number Voids 3 PATIENT WEIGHT: Weight (lb): Weight (oz): Weight (kg): 70.700 Medications: Active Meds + DC'd Last 24 Hrs Magnesium Oxide (MAG-OX 400) 400 MG DAILY PO (DC D) Magnesium Sulfate (MAGNESIUM SULFATE 2GM/SWFI 50 ML) 50 ML ONCE ONE IV ( DC) Pantoprazole (PROTONIX) 40 MG Q12H PO (DCD) Atorvastatin Calcium (LIPITOR) 40 MG DAILY@2100 PO (DCD) Aspirin (ASPIRIN) 81 MG DAILY PO (DCD) Clopidogrel Bisulfate (Plavix) 75 MG DAILY PO (D CD) Spironolactone (ALDACTONE) 50 MG DAILY PO (DCD) Acetaminophen (TYLENOL) 650 MG Q4H PRN PRN PO (D CD) Acetaminophen/Codeine Phosphate (TYLENOL W CODEI NE NO.3) 1 TAB Q6H PRN PRN PO (DCD) Al Hydrox/Mg Hydrox/Simethicone (MYLANTA) 30 ML Q4H PRN PRN PO (DCD) Docusate Sodium (COLACE) 100 MG BID PRN PRN PO ( DCD) Hydralazine HCl (APRESOLINE) 10 MG Q6H PRN PRN I V (DCD) Ondansetron HCl (ZOFRAN) 4 MG Q4H PRN PRN IV (DC D) Sodium Chloride (SODIUM CHLORIDE 0.9%) 1,000 ML .[id number] IV (DCD) Sodium Chloride (SODIUM CHLORIDE) 10 ML ASDIR NE N IV (DCD) Free Text Obj Notes Free Text Obj Notes: General appearance: alert, awake, oriented Head/Eyes: atraumatic, normocephalic ENT: moist mucosal membranes, normal pharynx Neck: non-tender, supple/no meningismus, no JVD Cardiovascular: normal capillary refill, normal heart sounds, regular rate rhythm Respiratory: aerating well, clear to auscultatio n, symmetric expansion Abdomen: non-tender, normal bowel sounds, soft, no distention Extremities: no clubbing, no cyanosis, no edema 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: alert, oriented X 3, CNII-XII intact Skin: dry, intact Psychiatry: normal affect, normal judgment/insig ht Diagnosis, Assessment Plan Problem List/A P: 1. Upper GI bleed Likely due to gastric ulcer in the setting of a spirin and Plavix Continue PPI per gastroenterology GI seen, s/p EGD. Given recent stent placement, benefits outweigh risk of ongoing dual antiplatelet therapy 2. CAD (coronary artery disease) Patient just had stents ike madisyn on 05/05/2021, will need to continue aspirin and Plavix at this time Continue Lipitor 40 mg at bedtime Patient had the stents placed in [place] Seen and discussed case with cardiology , cleared for discharge and outpatient follow-up including outpatie nt cardiac rehab which her certified ophthalmic assistant will set up on follow-up appointment 3. Hypotension Transient hypotension has r emain resolved, suspect secondary to hypovolemia and anesthesia, will continue to monitor, H H remain ed stable 4. Gastric ulcer Continue PPI per gastroenterology. Benefits of antiplatelet therapy outweigh risk given recent PCI 5. Hypomagnesemia Replacement ordered. Nga arenas reports she chronically takes magnesium 3 times a day at home and has follow-up with her PCP, will replete magnesium now and patient instructed to contin ue ongoing replacement per her PCP and monitoring as an outpatient Consultants: gastroenterology Free Text DxA P Notes Free text DxA P notes: SCDs for DVT prophylaxis Regular diet Patient does not have a living will or power of assistant city attorney Quality: [facility] Crit Care VTE Prophylaxis VTE prophylaxis initiated: yes Current Medications Current medication review: I attest that the foregoing medication list in t he medical record is true, accurate, and complete to the best of my knowled ge. Advanced Care Plan 65 or Older Discussed with: patient Discussion included: living will, power of attor gamal, code status Electronically Signed by Rj Evans DO on 04/17 02/03 at 1444 RPT #:[id number] END OF REPORT 2021-05-12 14:00:00-00:00 [facility]) Rehab Progress Note REPORT#:[id number] REPORT STATUS: Signed DATE:05/12/21 TIME: 1400 PATIENT: MARLA CAMPOS UNIT #: [id number] ROOM/BED: 6601-1 : 45 AGE: 75 SEX: F ATTEND: Leroy Bishop DO ADM AUTHOR: Modesta Hall PA-C * ALL edits or amendments must be made on the el [employer]/computer document * Subjective Chief complaint: Pt seen and examinesd sitting in the [facility]. She looks good. No acute comaplints. States no Cp, SO b, ABD Pain. States has been up walking in her room. Objective General VS: Vital Signs: Date Time Temp Pulse Resp B/P B/P Pulse O2 O2 F low FiO2 Mean Ox Delivery Rate 05/12 1056 97.7 68 15 123/71 88.3 96 Room air 05/12 0708 97.7 62 18 125/67 86.3 97 Room air 05/12 0426 97.9 64 17 116/70 85.6 95 05/12 0006 98.1 64 13 127/67 86.7 97 Room air 05/11 1916 97.7 65 15 118/65 82.9 97 Room air 05/11 1658 97.3 65 17 119/67 84.5 97 Room air PATIENT WEIGHT: Weight (lb): Weight (oz): Weight (kg): 70.700 Medications: Active Meds + DC'd Last 24 Hrs Magnesium Oxide (MAG-OX 400) 400 MG DAILY PO Magnesium Sulfate (MAGNESIUM SULFATE 2GM/SWFI 50 ML) 50 ML ONCE ONE IV ( DC) Pantoprazole (PROTONIX) 40 MG Q12H PO Atorvastatin Calcium (LIPITOR) 40 MG DAILY@2100 PO Aspirin (ASPIRIN) 81 MG DAILY PO Clopidogrel Bisulfate (Plavix) 75 MG DAILY PO Spironolactone (ALDACTONE) 50 MG DAILY PO Acetaminophen (TYLENOL) 650 MG Q4H PRN PRN PO Acetaminophen/Codeine Phosphate (TYLENOL W CODEI NE NO.3) 1 TAB Q6H PRN PRN PO Al Hydrox/Mg Hydrox/Simethicone (MYLANTA) 30 ML Q4H PRN PRN PO Docusate Sodium (COLACE) 100 MG BID PRN PRN PO Hydralazine HCl (APRESOLINE) 10 MG Q6H PRN PRN I V Ondansetron HCl (ZOFRAN) 4 MG Q4H PRN PRN IV Sodium Chloride (SODIUM CHLORIDE 0.9%) 1,000 ML .[id number] IV Sodium Chloride (SODIUM CHLORIDE) 10 ML ASDIR NE N IV Functional Progress Functional progress: n one supervision with cueing and assistance pro vided to ensure proper performance of all activities. Yes Precautions: Fall Safety addressed through use of: Gait Belt Verbal Cues Tactile Cues Weightbearing Restrictions: No Restriction ACTIVITIES PERFORMED: Bed Mobility - Rolling: Modified Dickenson Bed Mobility - Supine to Sit: Modified Independ ence Bed Mobility - Sit to Supine: Modified Independ ence Scooting: Modified Dickenson Sit to Stand: Minimal Assistance Static Sitting: Independent Dynamic Sitting: Modified Dickenson Static Standing: Supervision or Set-up Dynamic Standing: Minimal Assistance Functional Ambulation: Minimal Assistance Distance in Feet: 400 FT. Functional Exercises: SEE EVAL REPORT FOR MORE DETAILS. PATIENT ALSO COMPLETED THE FOLLOWING BILAT. LE THERA.EX FOR 10 REPS EACH: HIP FLEXION, KNEE EXTENSION, AND HEEL/TOE RAISES. Durable Medical Equipment Currently Utilized: RW Effects of Treatment: Safety awareness improved Self management improved Tolerance increased Post [place] Precautions: In Chair Call Light in Reach Family/Sitter at Bedside Nursing Notified Telephone in reach Document Pain/Education: No Review Plan of Care: No Functional Mob.Cmt: PATIENT REPORTED NO NEW COM PLAINTS. PT EDUCATED HER AND ABOUT PT POC, SAFETY, AND BILA T. LE HEP. THEY VERBALIZED UNDERSTANDING BUT PATIENT NEEDS REVIEW. TOLERATED PT WELL. MATHIEU BROWER INFORMED AND AWARE ABOUT THE RESULT OF PT SESSION. PT charges: FT/Therap. Activity 22366 If this is the patient's last treatment, this e ntry serves as the discharge summary: Y Start time: 1041 Stop time: 1056 Treatment Time : ( minutes) 0:15 Completed by: Sandrita Ring Physical Exam HEENT: anicteric, mucosal membranes moist, scler a clear Neck: supple, no JVD Cardiovascular: regular rate rhythm, S1/S2 Respiratory: aerating well, clear bilaterally Abdomen: bowel sounds present, non-distended, so ft, non-tender Musculoskeletal - general: Musculoskeletal - general: joints normal, range of motion normal, strength testing normal, no atrophy, no swelling 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: alert, oriented X 3, normal speech, n o motor deficits, no sensory deficits Diagnosis, Assessment Plan Free Text A P: The patient is a 75-year-old female with past me dical history significant for coronary artery disease status post stent placem ent on 05/05/2021, history of CVA, right carotid occlusion, gastric ulcers and hemorrhoids. She was dx with gastric ulcer likely causing the bleeding. Plan: Pt seen sitting in the bedsdie chair. Sh mickie was seen in bedside chair and states she was seen by therapy and walked around the unit twicw ambulating 400 ft. She states she did use a RW which made her feel more comfortable with, but feels better. I discussed with her and her about different options for rehab. Recommended home health or outpt therapy. She wi ll benefit from a RW for the time being. 05/12: Pt doing well. No further bleeding noted. Hgb stable. She has been up walking in her room today. P T noted 400 ft at MIN A and MOD I with bed mobility and STS. Recommend outpt therapy. Her Cardiology to given recommendations and orders. Due to [Cardiac debility] patient has a mobility limitation that prevents him/ her from performing MRADLS in the home such as [ Toileting]. The patient requires a walker to safely perform MRADLS in e home and a cane will not resolve the issue. The patients mobility imitati ons are [endurance ]. Consultants: gastroenterology Rehab attestation: Face to face exam completed. Treatment plan disc ussed with patient. Electronically Signed by Modesta Hall PA-C on at 1403 RPT #:[id number] END OF REPORT 2021-05-12 10:34:00-00:00 [facility] Card[facility] Progress Note REPORT#:[id number] REPORT STATUS: Signed DATE:05/12/21 TIME: 1034 PATIENT: MARLA CAMPOS UNIT #: [id number] ROOM/BED: 6601-1 : 45 AGE: 75 SEX: F ATTEND: Leroy Bishop DO ADM AUTHOR: Brenda Cali CNP * ALL edits or amendments must be made on the [employer] document * Subjective Patient reports: No: complaints. Objective General VS/I O: 24 hour I O ending at 0700: 05/12 0700 05/11 1900 Intake Total Output Total Balance Number Voids 3 Vital Signs: Date Time Temp Pulse Resp B/P B/P Pulse O2 O2 F low FiO2 Mean Ox Delivery Rate 05/12 0708 36.5 62 18 125/67 86.3 97 Room air 05/12 0426 36.6 64 17 116/70 85.6 95 05/12 0006 36.7 64 13 127/67 86.7 97 Room air 05/11 1916 36.5 65 15 118/65 82.9 97 Room air 05/11 1658 36.3 65 17 119/67 84.5 97 Room air 05/11 1116 36.5 67 17 109/63 78.6 98 Room air PATIENT WEIGHT: Weight (lb): Weight (oz): Weight (kg): 70.700 Medications: Active Meds + DC'd Last 24 Hrs Magnesium Sulfate (MAGNESIUM SULFATE 2GM/SWFI 50 ML) 50 ML ONCE ONE IV ( DC) Pantoprazole (PROTONIX) 40 MG Q12H PO Atorvastatin Calcium (LIPITOR) 40 MG DAILY@2100 PO Aspirin (ASPIRIN) 81 MG DAILY PO Clopidogrel Bisulfate (Plavix) 75 MG DAILY PO Spironolactone (ALDACTONE) 50 MG DAILY PO Acetaminophen (TYLENOL) 650 MG Q4H PRN PRN PO Acetaminophen/Codeine Phosphate (TYLENOL W CODEI NE NO.3) 1 TAB Q6H PRN PRN PO Al Hydrox/Mg Hydrox/Simethicone (MYLANTA) 30 ML Q4H PRN PRN PO Docusate Sodium (COLACE) 100 MG BID PRN PRN PO Hydralazine HCl (APRESOLINE) 10 MG Q6H PRN PRN I V Ondansetron HCl (ZOFRAN) 4 MG Q4H PRN PRN IV Sodium Chloride (SODIUM CHLORIDE 0.9%) 1,000 ML .[id number] IV Sodium Chloride (SODIUM CHLORIDE) 10 ML ASDIR NE N IV Physical Exam General appearance: alert, awake, oriented, no a cute distress Neck: non-tender, no JVD Cardiovascular: CV assessment: regular rate and rhythm Respiratory: clear to auscultation, no distress Abdomen: soft, non-tender, normal bowel sounds, no distention Genitourinary: no lambert Lower extremity: LE assessment: no edema Musculoskeletal: normal inspection 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: alert, oriented X 3 Psychiatry: normal affect, normal mood Results Findings/Data: Laboratory Tests 05/12 0520 Chemistry Sodium (134 - 147 mEq/L) 139 Potassium (3.4 - 5.0 mEq/L) 3.4 Chloride (100 - 108 mEq/L) 103 Carbon Dioxide (21 - 33 mEq/l) 28 Anion Gap (0 - 20) 12 BUN (7 - 18 mg/dL) 11 Creatinine (0.6 - 1.3 mg/dL) 0.9 Glomerular Filtr Rate (70 - 80) 61.0 L Glucose (70 - 110 mg/dL) 94 Calcium (8.0 - 10.5 mg/dL) 9.5 Magnesium (1.80 - 2.40 mg/dL) 1.70 L Laboratory Tests 05/12 0520 Hematology WBC (4.5 - 11.0 x10 3/uL) 8.0 RBC (3.54 - 5.02 x10 6/uL) 3.82 Hgb (11.0 - 15.0 g/dL) 12.1 Hct (33.0 - 45.0 %) 36.7 MCV (81.0 - 99.0 fL) 96.1 MCH (27.0 - 33.0 pg) 31.7 MCHC (33.0 - 37.0 g/dL) 33.0 RDW (11.5 - 14.5 %) 13.2 Plt Count (150 - 400 x10 3/uL) 163 MPV (7.0 - 9.0 fL) 10.8 H Neut % (Auto) (56.0 - 77.0 %) 59.1 Lymph % (Auto) (14.0 - 32.0 %) 23.8 [place] % (Auto) (4.8 - 9.0 %) 8.1 Eos % (Auto) (0.3 - 3.7 %) 7.7 H Baso % (Auto) (0.0 - 2.0 %) 0.9 Neut # (Auto) (2.0 - 7.6 x10 3/uL) 4.76 Lymph # (Auto) (1.0 - 3.8 x10 3/uL) 1.91 [place] # (Auto) (0.1 - 0.8 x10 3/uL) 0.65 Eos # (Auto) (0.0 - 0.2 x10 3/uL) 0.62 H Baso # (Auto) (0.0 - 0.2 x10 3/uL) 0.07 Abs Immat Gran (auto) (0.00 - 0.03 x10 3/uL) 0. 03 Add Manual Diff NO Immature Gran % (0.0 - 2.0 %) 0.4 Nucleated RBC % (0 - 0 %) 0.0 Nucleated RBCs # (Man) (0.0 - 0.1 x10 3/uL) 0.0 0 Laboratory Tests 05/12 0520 Chemistry Magnesium (1.80 - 2.40 mg/dL) 1.70 L Results: labs reviewed, vital signs stable Diagnosis, Assessment Plan Plan discussed with: patient, spouse/partner Free Text DxA P Notes Free Text DxA P Notes: Patient is 75 year old woman with recent PCI (05/05/21), on aspirin/plavix, with prior history of GI ulcers. She reports had an EGD/Colonoscopy a few months ago. Cardiology consulted for CAD with GI bleed. CAD 05/05/21 [facility]: atherectomy of mid-to-dist al RCA, PCI to proximal, [id number] RCA continue ASA 81mg PO daily, Plavix 75mg PO daily , atorvastin 40 mg daily unable to tolerate BB d/t borderline low BP patient must remain on dual antiplatelet therapy , given recent stent 05/05/20 GI Bleed HGB stable 11.[address] Abd: No acute CT abnormalities of the abdomen or pelvis are detected. Hypomagnesemia Mag sulfate 2 G IV x1 resume home med Magnesium supplement Rehab consulted but per their assessment patient is too functional to qualify for inpatient rehab. She may benefit [facility] outpatient cardiac rehab. She has an upcoming appointment with Dr. Whatley this Monday . Family plan to discuss with him about referring the patient for outpatient c ardiac rehab. The closest to them is [facility] cardiac rehab. Okay to discharge from cardiology service at 1243 Electronically Signed by Edyta Reynolds MD on at 1151 RPT #:[id number] END OF REPORT 2021-05-12 10:23:00-00:00 [facility] Gastroenterology Progress Note REPORT#:[id number] REPORT STATUS: Signed DATE:05/12/21 TIME: 1023 PATIENT: MARLA CAMPOS UNIT #: [id number] ROOM/BED: [place] [address] : 45 AGE: 75 SEX: F ATTEND: Leroy Bishop DO ADM AUTHOR: Suleiman Duran * ALL edits or amendments must be made on the [employer]/computer document * Suleiman Duran 05/12/21 1023: Subjective Comments: Patient is feeling well. Patient reports normal BM. Denies abdominal pain or vomiting. Tolerating PO. Review of Systems Additional notes: 10 point ros neg except hpi Objective General VS/I O: Last Documented: Result Date Time Pulse Ox 97 05/12 708 B/P 125/67 05/12 708 B/P Mean 86.3 05/12 708 O2 Delivery Room air 05/12 708 Temp 97.7 05/12 708 Pulse 62 05/12 708 Resp 18 05/12 708 FiO2 21 05/08 1750 24 hour I O ending at 0700: 05/12 0700 05/11 1900 Intake Total Output Total Balance Number Voids 3 PATIENT WEIGHT: Weight (lb): Weight (oz): Weight (kg): 70.700 Medications: Active Meds + DC'd Last 24 Hrs Magnesium Sulfate (MAGNESIUM SULFATE 2GM/SWFI 50 ML) 50 ML ONCE ONE IV ( DC) Pantoprazole (PROTONIX) 40 MG Q12H PO Atorvastatin Calcium (LIPITOR) 40 MG DAILY@2100 PO Aspirin (ASPIRIN) 81 MG DAILY PO Clopidogrel Bisulfate (Plavix) 75 MG DAILY PO Spironolactone (ALDACTONE) 50 MG DAILY PO Acetaminophen (TYLENOL) 650 MG Q4H PRN PRN PO Acetaminophen/Codeine Phosphate (TYLENOL W CODEI NE NO.3) 1 TAB Q6H PRN PRN PO Al Hydrox/Mg Hydrox/Simethicone (MYLANTA) 30 ML Q4H PRN PRN PO Docusate Sodium (COLACE) 100 MG BID PRN PRN PO Hydralazine HCl (APRESOLINE) 10 MG Q6H PRN PRN I V Ondansetron HCl (ZOFRAN) 4 MG Q4H PRN PRN IV Sodium Chloride (SODIUM CHLORIDE 0.9%) 1,000 ML .[id number] IV Sodium Chloride (SODIUM CHLORIDE) 10 ML ASDIR NE N IV Physical Exam General appearance: alert, awake HEENT: moist mucosal membranes Neck: full range of motion Cardiovascular: normal capillary refill, regular rate rhythm Respiratory: aerating well, symmetric expansion Abdomen: non-tender Extremities: decreased range of motion 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: alert, oriented X 3 Skin: dry, intact Psychiatry: normal affect, normal judgment/insig ht Results Findings/Data: Laboratory Tests 05/12/21519: [Embedded Image Not Available] Laboratory Tests 05/12 520 Chemistry Sodium (134 - 147 mEq/L) 139 Potassium (3.4 - 5.0 mEq/L) 3.4 Chloride (100 - 108 mEq/L) 103 Carbon Dioxide (21 - 33 mEq/l) 28 Anion Gap (0 - 20) 12 BUN (7 - 18 mg/dL) 11 Creatinine (0.6 - 1.3 mg/dL) 0.9 Glomerular Filtr Rate (70 - 80) 61.0 L Glucose (70 - 110 mg/dL) 94 Calcium (8.0 - 10.5 mg/dL) 9.5 Magnesium (1.80 - 2.40 mg/dL) 1.70 L Laboratory Tests 05/12 520 Hematology WBC (4.5 - 11.0 x10 3/uL) 8.0 RBC (3.54 - 5.02 x10 6/uL) 3.82 Hgb (11.0 - 15.0 g/dL) 12.1 Hct (33.0 - 45.0 %) 36.7 MCV (81.0 - 99.0 fL) 96.1 MCH (27.0 - 33.0 pg) 31.7 MCHC (33.0 - 37.0 g/dL) 33.0 RDW (11.5 - 14.5 %) 13.2 Plt Count (150 - 400 x10 3/uL) 163 MPV (7.0 - 9.0 fL) 10.8 H Neut % (Auto) (56.0 - 77.0 %) 59.1 Lymph % (Auto) (14.0 - 32.0 %) 23.8 [place] % (Auto) (4.8 - 9.0 %) 8.1 Eos % (Auto) (0.3 - 3.7 %) 7.7 H Baso % (Auto) (0.0 - 2.0 %) 0.9 Neut # (Auto) (2.0 - 7.6 x10 3/uL) 4.76 Lymph # (Auto) (1.0 - 3.8 x10 3/uL) 1.91 [place] # (Auto) (0.1 - 0.8 x10 3/uL) 0.65 Eos # (Auto) (0.0 - 0.2 x10 3/uL) 0.62 H Baso # (Auto) (0.0 - 0.2 x10 3/uL) 0.07 Abs Immat Gran (auto) (0.00 - 0.03 x10 3/uL) 0. 03 Add Manual Diff NO Immature Gran % (0.0 - 2.0 %) 0.4 Nucleated RBC % (0 - 0 %) 0.0 Nucleated RBCs # (Man) (0.0 - 0.1 x10 3/uL) 0.0 0 Diagnosis, Assessment Plan Free Text A P: change in bowel habits dual antiplatelet therapy recent pci cad recent egd/colonoscopy gastric ulcer - monitor h/h, transfuse as needed - ppi therapy - diet as tolerated - benefits of antiplatelet therapy > risks given recent PCI will monitor from a distance Consultants: gastroenterology Eric Hall 05/12/21 1627: Attestations Physician Attestation Agree w/findings plan: I have examined the patient and agree wi th the findings and plan as documented by Chad FOX Electronically Signed by Suleiman Duran on at 1256 Electronically Signed by Eric Hall MD on at 1627 RPT #:[id number] END OF REPORT 2021-05-11 16:04:00-00:00 [facility] ([facility] Hospitalist Progress Note REPORT#:[id number] REPORT STATUS: Signed DATE:05/11/21 TIME: 1603 PATIENT: MARLA CAMPOS UNIT #: [id number] ROOM/BED: [place] [address] : 45 AGE: 75 SEX: F ATTEND: Leroy Bishop DO ADM AUTHOR: Rj Evans DO * ALL edits or amendments must be made on the [employer]/computer document * Subjective Comments: Patient seen and examined, at bedside. D enies any new complaints. No bleeding noted overnight. States she is feeling better. No overnight events per RN Objective General VS/I O: Vital Signs: Date Time Temp Pulse Resp B/P B/P Pulse O2 O2 F low FiO2 Mean Ox Delivery Rate 05/11 1116 97.7 67 17 109/63 78.6 98 Room air 05/11 0733 97.7 66 17 114/54 74.0 97 Room air 05/11 0348 98.1 71 13 103/53 69.7 96 Room air 05/11 0015 97.9 67 15 114/66 82.0 96 Room air 05/10 1911 98.2 67 15 110/64 79.5 95 Room air 24 hour I O ending at 0700: 05/11 0700 05/10 1900 Intake Total Output Total Balance Number Voids 3 1 PATIENT WEIGHT: Weight (lb): Weight (oz): Weight (kg): 70.700 Medications: Active Meds + DC'd Last 24 Hrs Magnesium Sulfate (MAGNESIUM SULFATE 2GM/SWFI 50 ML) 50 ML ONCE ONE IV ( DC) Pantoprazole (PROTONIX) 40 MG Q12H PO Magnesium Sulfate (MAGNESIUM SULFATE 2GM/SWFI 50 ML) 50 ML ONCE ONE IV ( DC) Atorvastatin Calcium (LIPITOR) 40 MG DAILY@2100 PO Aspirin (ASPIRIN) 81 MG DAILY PO Clopidogrel Bisulfate (Plavix) 75 MG DAILY PO Spironolactone (ALDACTONE) 50 MG DAILY PO Acetaminophen (TYLENOL) 650 MG Q4H PRN PRN PO Acetaminophen/Codeine Phosphate (TYLENOL W CODEI NE NO.3) 1 TAB Q6H PRN PRN PO Al Hydrox/Mg Hydrox/Simethicone (MYLANTA) 30 ML Q4H PRN PRN PO Docusate Sodium (COLACE) 100 MG BID PRN PRN PO Hydralazine HCl (APRESOLINE) 10 MG Q6H PRN PRN I V Ondansetron HCl (ZOFRAN) 4 MG Q4H PRN PRN IV Sodium Chloride (SODIUM CHLORIDE 0.9%) 1,000 ML .[id number] IV Sodium Chloride (SODIUM CHLORIDE) 10 ML ASDIR NE N IV Free Text Obj Notes Free Text Obj Notes: General appearance: alert, awake, oriented Head/Eyes: atraumatic, normocephalic ENT: moist mucosal membranes, normal pharynx Neck: non-tender, supple/no meningismus, no JVD Cardiovascular: normal capillary refill, normal heart sounds, regular rate rhythm Respiratory: aerating well, clear to auscultatio n, symmetric expansion Abdomen: non-tender, normal bowel sounds, soft, no distention Extremities: no clubbing, no cyanosis, no edema 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: alert, oriented X 3, CNII-XII intact Skin: dry, intact Psychiatry: normal affect, normal judgment/insig ht Diagnosis, Assessment Plan Problem List/A P: 1. Upper GI bleed Likely due to gastric ulcer in the setting of a spirin and Plavix Continue PPI per gastroenterology GI seen, s/p EGD. Given recent stent placement, benefits outweigh risk of ongoing dual antiplatelet therapy 2. CAD (coronary artery disease) Patient just had stents ike madisyn on 05/05/2021, will need to continue aspirin and Plavix at this time Continue Lipitor 40 mg at bedtime Patient had the stents placed in [place] Seen and discussed case with cardiology, sandeep ue to monitor patient on dual platelet therapy for few more days 3. Hypotension Transient hypotension has remain resolved, poss ibly secondary to hypovolemia and anesthesia, will continue to monitor, H H re mained stable 4. Gastric ulcer Continue PPI per gastroenterology. Benefits of antiplatelet therapy outweigh risk given recent PCI 5. Hypomagnesemia Replacement ordered Consultants: gastroenterology Free Text DxA P Notes Free text DxA P notes: SCDs for DVT prophylaxis Regular diet Patient does not have a living will or power of assistant city attorney Quality: Gen Med Crit Care VTE Prophylaxis VTE prophylaxis initiated: yes Current Medications Current medication review: I attest that the foregoing medication list in t he medical record is true, accurate, and complete to the best of my knowled ge. Advanced Care Plan 65 or Older Discussed with: patient Discussion included: living will, power of attor gamal, code status Electronically Signed by Rj Evans DO on 04/17 01/04 at 1607 RPT #:[id number] END OF REPORT 2021-05-11 15:50:00-00:00 [facility] ([facility]) Acute Rehab Consult REPORT#:[id number] REPORT STATUS: Signed DATE:05/11/21 TIME: 1550 PATIENT: MARLA CAMPOS UNIT #: [id number] ROOM/BED: 6601-1 : 45 AGE: 75 SEX: F ATTEND: Leroy Bishop DO ADM AUTHOR: Modesta Hall PA-C * ALL edits or amendments must be made on the [employer]/computer document * History of Present Illness HPI Reason for consult: evaluation of Rehab needs PCP: PCP: No Primary or Family Physician Requesting clinician: Dr. Evans Etiologic diagnosis: Deconditioning HPI: The patient is a 75-year-old female with past me dical history significant for coronary artery disease status post stent placem ent on 05/05/2021, history of CVA, right carotid occlusion, gastric ul cers and hemorrhoids diagnosed from an EGD and colonoscopy on 02/25/2021 presented to [facility] emergency room secondary to black tarry stools. She was recently placed on aspirin and Plavix following her stent placement on 05/05/2021. A CT scan of the abdomen pelvis was performed showing no acute CT abnormalities detected. GI w as consulted for concern of upper GI bleed. She was found to have an LA grade a reflux esophagitis with no bleeding, tiny hiatal hernia, chronic ga stritis with shallow ulcers and normal examined duodenum. There is no noted localized severe inflammation characterized by shallow ulcerations in e gastric body. GI recommended continuation of PPI. Even her recent stent placements antiplatelet erapy is unable to be discontinued. There was concern related to her overall functional mobility and PM R was requested. Functional Status OT evaluation: e on one supervision with cueing and assistance provided to ensure proper performance of all activities: Yes ACTIVITIES PERFORMED: Toileting: Yes Feeding: Yes Upper Extremity Dressing: Yes Lower Extremity Dressing: Yes [facility] Activity: No Precautions: Fall Requires verbal cues to direct task: No Positions Used: Sitting in chair Standing with Assist Other FUNCTIONAL BALANCE DURING ACTIVITY: Fair TREATMENT OUTCOMES: Goals Achieved: No Progress demonstrated toward desired goals: No Decreased level of assistance needed: No Patient unable to tolerate intervention: No Performance limited by: Decrease mobility/dewayne ce Decreased Range of Motion Activity tolerance: 10-20 minutes Comments: PLEASE SEE OT INITIAL EVAL NOTES. Document OT charges: SELF/HOME MGT/ADL [id number] Document Pain/Education: No Review OT Plan of Care: No If this is the patient's last treatment, this e ntry serves as the discharge summary: Y Start Time: 935 Stop Time: 950 Treatment time ( minutes): 0:15 Completed by: Amber Patel - GROOMING/HYGIENE: ----- Toileting: Supervision or Set-up Safety awareness demonstrated during completion of task: Yes Requires set up of supplies: No ----- Self Feeding: Supervision or Set-up Requires set-up of tray: Yes Requires physical assist to feed self: No ----- Upper Extremity Dressing: Minimal Assistance Increased time required: Yes Requires set up of supplies: Yes Requires physical assist to dress upper extremi ty: Don Clothing and Adjust Doff Clothing and Adjust Due to: Decrease mobility/balance Decreased Range of Motion ----- Lower Extremity Dressing: Dependent Increased time required: Yes Requires set up of supplies: Yes Requires physical assist to dress Lower Extremi ty: Don Clothing and Adjust Doff Clothing and Adjust Due to: Decrease mobility/balance Decreased Range of Motion History Past medical history: Reports: Coronary artery disease. Additional medical history: cad s/p PCI, anemia, hx of ulcers Additional surgical history: Hysterectomy Breast biopsy Cholecystectomy Knee Sinus surgery Additional family history: Denies Alcohol use: Denies EtOH use Drug use: Denies recreational drugs Smoking status: Smoking status for patients 13 years old or old er: Former Smoker Additional social history: Lives at home with her in a [employer] home. No stairs to enter. She is ambulatory with a single- point cane. She no longer drives her assists her with any assistance at home. Medications: Home Medications: Medication Dose/Rte/Freq Days Qty Entered Last Max Daily Dose Reviewed ATORVASTATIN (LIPITOR) 40 MG PO BEDTIME 1 05/08/21 Strength: 40 MG TAB 11043 POTASSIUM CHLORIDE ER 2 CAP PO TID 05/05/21 (MICRO-K) 11043 Strength: 10 MEQ CAP.SA OMEPRAZOLE ER (PriLOSEC) 40 MG PO BID 05/05/21 05/08/21 Strength: 40 MG CAP. 1109 43 ESTROGENS,CONJ 0.5 GM VAGINAL 05/08/21 05/08/21 (PREMARIN 0.625 MG/GM TWICE A WEEK 42 43 VAGINAL) Strength: 0.625 MG/GRAM CREAM 5 ML PO 05/08/21 05/08/21 PROMETHAZINE/DEXTROMETHORPHA N (PHENERGAN DM 6.25-15 Q6H PRN PRN COUGH 0043 00 44 MG/5ML) Strength: 6.25 MG-15 MG/5 ML SYRUP ALBUTEROL 0.63 MG INH 05/08/21 05/08/21 (ALBUTEROL NEB SOLN RTQ6H PRN PRN SOB 0044 0044 0.021%) Strength: 0.63 MG/3 ML VIAL.NEB LEVOCETIRIZINE (XYZAL) 5 MG PO DAILY 05/08/21 1 Strength: 5 MG TAB 0045 0045 ASPIRIN EC (ECOTRIN) 81 MG PO DAILY 05/03/21 Strength: 81 MG TAB.EC 1353 0044 [MAGNESIUM GLYCERINAT] 05/03/21 05/08/21 Strength: 1354 0044 UBIDECARENONE (CO Q-10) 100 MG PO BID 05/03/21 05/08/21 Strength: 100 MG CAP 1354 0044 DOCUSATE SODIUM 100 MG PO 05/03/21 05/08/21 (COLACE) DAILY PRN 1355 0044 Strength: 100 MG CAP CONSTIPATION [PEARLS PROBIOTIC] 05/03/21 05/08/21 Strength: 1355 0044 [VITAMIN D3] 05/03/21 05/08/21 Strength: 1356 0044 [COSAMIN ASU JOINT ] 05/03/21 05/08/21 Strength: 1356 0044 [MOVE FREE JOINT ] 05/03/21 05/08/21 Strength: 1357 0044 [TUMERIC ] 05/03/21 05/08/21 Strength: 1357 0044 SPIRONOLACTONE 50 MG PO DAILY 05/05/21 1 (ALDACTONE) 1108 0044 Strength: 50 MG TAB METOLAZONE (ZAROXOLYN) 5 MG PO 05/05/21 1 Strength: 5 MG TAB MONDAY,MONDAY 1109 0044 FAMOTIDINE (PEPCID) 20 MG PO BEDTIME 05/05/21 1 Strength: 20 MG TAB 1110 0044 CLOPIDOGREL (PLAVIX) 75 MG PO DAILY 90 90 05/0505/08/21 Strength: 75 MG TAB 1545 0044 Current Hospital Medications: Blood Formation,Coagulation Sig/Nellie Start time Last Medication Dose Route Stop Time Status Admin Clopidogrel Bisulfate 75 MG DAILY 05/08 09 AC 05/11 (Plavix) PO 06/07 0859 0756 Cardiovascular Drugs Sig/Nellie Start time Last Medication Dose Route Stop Time Status Admin Atorvastatin Calcium 40 MG DAILY@2100 05/08 210 0 AC 05/10 (LIPITOR) PO 06/07 Spironolactone 50 MG DAILY 05/08 0900 AC 05/11 (ALDACTONE) PO 06/07 0859 0756 Hydralazine HCl 10 MG Q6H PRN PRN 05/07 234 AC (APRESOLINE) IV 06/06 234 Central Nervous System Agents Sig/Nellie Start time Last Medication Dose Route Stop Time Status Admin Magnesium Sulfate 50 ML ONCE ONE 05/11 0845 DC 05/11 (MAGNESIUM SULFATE IV 05/11 1044 0922 2GM/SWFI 50ML) Magnesium Sulfate 50 ML ONCE ONE 05/10 1500 DC 05/10 (MAGNESIUM SULFATE IV 05/10 1659 1611 2GM/SWFI 50ML) Aspirin 81 MG DAILY 05/08 09 AC 05/11 (ASPIRIN) PO 06/07 0859 0756 Acetaminophen 650 MG Q4H PRN PRN 05/07 2345 AC 05/10 (TYLENOL) PO 06/06 234 1524 Acetaminophen/ 1 TAB Q6H PRN PRN 05/07 2345 AC Codeine Phosphate PO 05/12 2344 (TYLENOL W CODEINE NO.3) Electrolytic, Caloric, And Cody Sig/Nellie Start time Last Medication Dose Route Stop Time Status Admin Sodium Chloride 1,000 ML .[id number] 05/07 2345 AC 05/11 (SODIUM CHLORIDE IV 06/06 2344 0440 0.9%) Sodium Chloride 10 ML ASDIR PRN 05/07 2030 AC (SODIUM CHLORIDE) IV 06/06 2029 Gastrointestinal Drugs Sig/Nellie Start time Last Medication Dose Route Stop Time Status Admin Pantoprazole 40 MG Q12H 05/10 1800 AC 05/11 (PROTONIX) PO 06/09 1759 0451 Al Hydrox/Mg Hydrox/ 30 ML Q4H PRN PRN 05/07 23 45 AC Simethicone PO 06/06 2344 (MYLANTA) Docusate Sodium 100 MG BID PRN PRN 05/07 2345 A C (COLACE) PO 06/06 2344 Ondansetron HCl 4 MG Q4H PRN PRN 05/07 2345 AC 05/09 (ZOFRAN) IV 06/06 2348 1145 Allergies: Coded Allergies: Penicillins (Severe, INJECTION SITE SWELLING ) Cor[place]an And Derivatives (Intermediate, VOMITING 1 ) Quinolones (Intermediate, RASH, FACIAL SWELLING 05/07/21) clarithromycin (From BIAXIN) (Intermediate, RASH , SORE TONGUE 05/07/21) clotrimazole (Intermediate, UTI, RASH 05/07/21) fludrocortisone (From FLORIN EF) (Intermediate, SEVERE RASH, SWELLING OF EYES ) fluticasone furoate (From BR EO ELLIPTA) (Intermediate, HARD TO BREATH 05/07/21) rofecoxib (From VIOXX) (Intermediate, EYE AND CRISTINO DY SWELLING 05/07/21) sulfapyridine (Intermediate, EYE LID SWELLING ) vilanterol (From BREO ELLIPTA) (Intermediate, KHOURY RD TO BREATH 05/07/21) doxycycline (From PERIOSTAT) (Mild, ABDOMINAL PA IN 05/07/21) meperidine (From DEMEROL) (Mild, VOMITING ) pregabalin (From LYRICA) (Mild, WATERY EYES 04/17 09/06) iodine (UNKNOWN 05/07/21) Uncoded Allergies: PREICID (Intermediate, ABD PAIN, LIGHT HEADEDNES S, NAUSEA 05/07/21) RALAFEN (Mild, ABDOMINAL PAIN 05/07/21) Review of Symptoms ROS ROS comments: 10 point review of system re viewed negative except for stated above. No further GI bleeding noted no nausea, vomiting, diarrhea or constipation. Denies any abdominal pain. Denies any s ignificant residual weakness on one side versus the other, overt blurred vision, headaches, fevers o r cough or chills. Objective Physical Exam VS: Last Documented: Result Date Time Pulse Ox 98 05/11 111 B/P 109/63 05/11 111 B/P Mean 78.6 05/11 1116 O2 Delivery Room air 05/11 1116 Temp 97.7 05/11 1116 Pulse 67 05/11 111 Resp 17 05/11 1116 FiO2 21 05/08 1750 PATIENT WEIGHT: Weight (lb): Weight (oz): Weight (kg): 70.700 General appearance: alert, awake HEENT: anicteric, mucosal membranes moist, scler a clear Neck: supple, no JVD Cardiovascular: regular rate rhythm, S1/S2 Respiratory: aerating well, clear bilaterally Abdomen: bowel sounds present, non-distended, so ft, non-tender Musculoskeletal - general: Musculoskeletal - general: joints normal, range of motion normal, strength testing normal, no atrophy, no swelling 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: alert, oriented X 3, normal speech, n o motor deficits, no sensory deficits Results Findings/Data: Laboratory Tests: 05/11 0510 Chemistry Sodium (134 - 147 mEq/L) 137 Potassium (3.4 - 5.0 mEq/L) 3.6 Chloride (100 - 108 mEq/L) 104 Carbon Dioxide (21 - 33 mEq/l) 23 Anion Gap (0 - 20) 14 BUN (7 - 18 mg/dL) 11 Creatinine (0.6 - 1.3 mg/dL) 0.9 Glomerular Filtr Rate (70 - 80) 61.0 L Glucose (70 - 110 mg/dL) 100 Calcium (8.0 - 10.5 mg/dL) 8.6 Magnesium (1.80 - 2.40 mg/dL) 1.68 L Hematology WBC (4.5 - 11.0 x10 3/uL) 9.4 RBC (3.54 - 5.02 x10 6/uL) 3.48 L Hgb (11.0 - 15.0 g/dL) 11.3 Hct (33.0 - 45.0 %) 33.9 MCV (81.0 - 99.0 fL) 97.4 MCH (27.0 - 33.0 pg) 32.5 MCHC (33.0 - 37.0 g/dL) 33.3 RDW (11.5 - 14.5 %) 13.2 Plt Count (150 - 400 x10 3/uL) 140 L MPV (7.0 - 9.0 fL) 10.5 H Neut % (Auto) (56.0 - 77.0 %) 69.7 Lymph % (Auto) (14.0 - 32.0 %) 13.9 L [place] % (Auto) (4.8 - 9.0 %) 8.5 Eos % (Auto) (0.3 - 3.7 %) 7.1 H Baso % (Auto) (0.0 - 2.0 %) 0.5 Neut # (Auto) (2.0 - 7.6 x10 3/uL) 6.56 Lymph # (Auto) (1.0 - 3.8 x10 3/uL) 1.31 [place] # (Auto) (0.1 - 0.8 x10 3/uL) 0.80 Eos # (Auto) (0.0 - 0.2 x10 3/uL) 0.67 H Baso # (Auto) (0.0 - 0.2 x10 3/uL) 0.05 Abs Immat Gran (auto) (0.00 - 0.03 x10 3/uL) 0. 03 Add Manual Diff NO Immature Gran % (0.0 - 2.0 %) 0.3 Nucleated RBC % (0 - 0 %) 0.0 Nucleated RBCs # (Man) (0.0 - 0.1 x10 3/uL) 0.0 0 Diagnosis, Assessment Plan Free Text A P: The patient is a 75-year-old female with past me dical history significant for coronary artery disease status post stent placem ent on 05/05/2021, history of CVA, right carotid occlusion, gastric ulcers and hemorrhoids. She was dx with gastric ulcer likely causing the bleeding. Plan: Pt seen sitting in the bedsdie chair. Sh e was seen in bedside chair and states she was seen by therapy and walked around the unit twicw ambulating 400 ft. She states she did use a RW which made her feel more comfortable with, but feels better. I discussed with her and her about different options for rehab. Recommended home health or outpt therapy. She wi ll benefit from a RW for the time being. Due to [Cardiac debility] patient has a mobility limitation that prevents him/ her from performing MRADLS in the home such as [ Toileting]. The patient requires a walker to safely perform MRADLS in e home and a cane will not resolve the issue. The patients mobility imitati ons are [endurance ]. Electronically Signed by Modesta Hall PA-C on at 1601 RPT #:[id number] END OF REPORT 2021-05-11 08:32:00-00:00 [facility]) Cardiology Progress Note REPORT#:[id number] REPORT STATUS: Signed DATE:05/11/21 TIME: 0832 PATIENT: MARLA CAMPOS UNIT #: [id number] ROOM/BED: 6601-1 : 45 AGE: 75 SEX: F ATTEND: Leroy Bishop DO ADM AUTHOR: Brenda Cali ACNP * ALL edits or amendments must be made on the [employer] document * Subjective Patient reports: No: complaints. Objective General VS/I O: 24 hour I O ending at 0700: 05/11 0700 05/10 1900 Intake Total Output Total Balance Number Voids 3 1 Vital Signs: Date Time Temp Pulse Resp B/P B/P Pulse O2 O2 F low FiO2 Mean Ox Delivery Rate 05/11 0733 36.5 66 17 114/54 74.0 97 Room air 05/11 0348 36.7 71 13 103/53 69.7 96 Room air 05/11 0015 36.6 67 15 114/66 82.0 96 Room air 05/10 1911 36.8 67 15 110/64 79.5 95 Room air 05/10 1537 36.7 67 17 127/69 88.5 96 Room air 05/10 1048 36.7 67 18 103/63 76.6 96 Room air PATIENT WEIGHT: Weight (lb): Weight (oz): Weight (kg): 70.700 Medications: Active Meds + DC'd Last 24 Hrs Pantoprazole (PROTONIX) 40 MG Q12H PO Magnesium Sulfate (MAGNESIUM SULFATE 2GM/SWFI 50 ML) 50 ML ONCE ONE IV ( DC) Magnesium Sulfate (MAGNESIUM SULFATE 2GM/SWFI 50 ML) 50 ML ONCE ONE IV ( DC) Atorvastatin Calcium (LIPITOR) 40 MG DAILY@2100 PO Aspirin (ASPIRIN) 81 MG DAILY PO Clopidogrel Bisulfate (Plavix) 75 MG DAILY PO Spironolactone (ALDACTONE) 50 MG DAILY PO Acetaminophen (TYLENOL) 650 MG Q4H PRN PRN PO Acetaminophen/Codeine Phosphate (TYLENOL W CODEI NE NO.3) 1 TAB Q6H PRN PRN PO Al Hydrox/Mg Hydrox/Simethicone (MYLANTA) 30 ML Q4H PRN PRN PO Docusate Sodium (COLACE) 100 MG BID PRN PRN PO Hydralazine HCl (APRESOLINE) 10 MG Q6H PRN PRN I V Ondansetron HCl (ZOFRAN) 4 MG Q4H PRN PRN IV Pantoprazole Sodium (PROTONIX) 80 MG .Q10H IV ( DC) Sodium Chloride (SODIUM CHLORIDE 0.9%) 100 ML Sodium Chloride (SODIUM CHLORIDE 0.9%) 1,000 ML .[id number] IV Sodium Chloride (SODIUM CHLORIDE) 10 ML ASDIR NE N IV Physical Exam General appearance: alert, awake, oriented, no a cute distress Neck: non-tender, no JVD Cardiovascular: CV assessment: regular rate and rhythm Respiratory: clear to auscultation, no distress Abdomen: soft, non-tender, normal bowel sounds, no distention Genitourinary: no lambert Lower extremity: LE assessment: no edema Musculoskeletal: normal inspection 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: alert, oriented X 3 Psychiatry: normal affect, normal mood Results Findings/Data: Laboratory Tests 05/11 0510 Chemistry Sodium (134 - 147 mEq/L) 137 Potassium (3.4 - 5.0 mEq/L) 3.6 Chloride (100 - 108 mEq/L) 104 Carbon Dioxide (21 - 33 mEq/l) 23 Anion Gap (0 - 20) 14 BUN (7 - 18 mg/dL) 11 Creatinine (0.6 - 1.3 mg/dL) 0.9 Glomerular Filtr Rate (70 - 80) 61.0 L Glucose (70 - 110 mg/dL) 100 Calcium (8.0 - 10.5 mg/dL) 8.6 Magnesium (1.80 - 2.40 mg/dL) 1.68 L Laboratory Tests 05/11 0510 Hematology WBC (4.5 - 11.0 x10 3/uL) 9.4 RBC (3.54 - 5.02 x10 6/uL) 3.48 L Hgb (11.0 - 15.0 g/dL) 11.3 Hct (33.0 - 45.0 %) 33.9 MCV (81.0 - 99.0 fL) 97.4 MCH (27.0 - 33.0 pg) 32.5 MCHC (33.0 - 37.0 g/dL) 33.3 RDW (11.5 - 14.5 %) 13.2 Plt Count (150 - 400 x10 3/uL) 140 L MPV (7.0 - 9.0 fL) 10.5 H Neut % (Auto) (56.0 - 77.0 %) 69.7 Lymph % (Auto) (14.0 - 32.0 %) 13.9 L [place] % (Auto) (4.8 - 9.0 %) 8.5 Eos % (Auto) (0.3 - 3.7 %) 7.1 H Baso % (Auto) (0.0 - 2.0 %) 0.5 Neut # (Auto) (2.0 - 7.6 x10 3/uL) 6.56 Lymph # (Auto) (1.0 - 3.8 x10 3/uL) 1.31 [place] # (Auto) (0.1 - 0.8 x10 3/uL) 0.80 Eos # (Auto) (0.0 - 0.2 x10 3/uL) 0.67 H Baso # (Auto) (0.0 - 0.2 x10 3/uL) 0.05 Abs Immat Gran (auto) (0.00 - 0.03 x10 3/uL) 0. 03 Add Manual Diff NO Immature Gran % (0.0 - 2.0 %) 0.3 Nucleated RBC % (0 - 0 %) 0.0 Nucleated RBCs # (Man) (0.0 - 0.1 x10 3/uL) 0.0 0 Laboratory Tests 05/11 0510 Chemistry Magnesium (1.80 - 2.40 mg/dL) 1.68 L Results: labs reviewed, vital signs stable, rhyt hm personally rev'd Diagnosis, Assessment Plan Plan discussed with: patient, spouse/partner Free Text DxA P Notes Free Text DxA P Notes: Patient is 75 year old woman with recent PCI (05/05/21), on aspirin/plavix, with prior history of GI ulcers. She reports had an EGD/Colonoscopy a few months ago. Cardiology consulted for CAD with GI bleed. CAD 05/05/21 [facility]: atherectomy of mid-to-dist al RCA, PCI to proximal, ygy-pr-axstsm RCA continue ASA 81mg PO daily, Plavix 75mg PO daily , atorvastin 40 mg daily unable to tolerate BB d/t borderline low BP patient must remain on dual antiplatelet therapy , given recent stent 05/05/20 GI Bleed HGB stable 11.[address] Abd: No acute CT abnormalities of the abdomen or pelvis are detected. Rehab consulted but per their assessment patient is too functional to qualify for inpatient rehab. She may benefit from outpatient cardiac rehab. There is [facility] cardiac rehab that she can go. Will discuss with Dr. Whatley. at 1447 Electronically Signed by Edyta Reynolds MD on at 1151 RPT #:[id number] END OF REPORT 2021-05-11 08:25:00-00:00 [facility] REPORT#:[id number] REPORT STATUS: Signed DATE:05/11/21 TIME: 824 PATIENT: MARLA CAMPOS UNIT #: [id number] ROOM/BED: [place] [id number] : 45 AGE: 75 SEX: F ATTEND: Leroy Bishop DO ADM AUTHOR: Eric Hall MD * ALL edits or amendments must be made on the [employer] document * Subjective Comments: no overt gi bleeding, hg 11 Review of Systems Additional notes: 10 point ros neg except hpi Objective General VS/I O: Last Documented: Result Date Time Pulse Ox 97 05/11 733 B/P 114/54 05/11 733 B/P Mean 74.0 05/11 733 O2 Delivery Room air 05/11 733 Temp 36.5 05/11 733 Pulse 66 05/11 733 Resp 17 05/11 733 FiO2 21 05/08 1750 24 hour I O ending at 0700: 05/11 0700 05/10 1900 Intake Total Output Total Balance Number Voids 3 1 PATIENT WEIGHT: Weight (lb): Weight (oz): Weight (kg): 70.700 Medications: Active Meds + DC'd Last 24 Hrs Magnesium Sulfate (MAGNESIUM SULFATE 2GM/SWFI 50 ML) 50 ML ONCE ONE IV ( DC) Pantoprazole (PROTONIX) 40 MG Q12H PO Magnesium Sulfate (MAGNESIUM SULFATE 2GM/SWFI 50 ML) 50 ML ONCE ONE IV ( DC) Atorvastatin Calcium (LIPITOR) 40 MG DAILY@2100 PO Aspirin (ASPIRIN) 81 MG DAILY PO Clopidogrel Bisulfate (Plavix) 75 MG DAILY PO Spironolactone (ALDACTONE) 50 MG DAILY PO Acetaminophen (TYLENOL) 650 MG Q4H PRN PRN PO Acetaminophen/Codeine Phosphate (TYLENOL W CODEI NE NO.3) 1 TAB Q6H PRN PRN PO Al Hydrox/Mg Hydrox/Simethicone (MYLANTA) 30 ML Q4H PRN PRN PO Docusate Sodium (COLACE) 100 MG BID PRN PRN PO Hydralazine HCl (APRESOLINE) 10 MG Q6H PRN PRN I V Ondansetron HCl (ZOFRAN) 4 MG Q4H PRN PRN IV Pantoprazole Sodium (PROTONIX) 80 MG .Q10H IV (D C) Sodium Chloride (SODIUM CHLORIDE 0.9%) 100 ML Sodium Chloride (SODIUM CHLORIDE 0.9%) 1,000 ML .[id number] IV Sodium Chloride (SODIUM CHLORIDE) 10 ML ASDIR NE N IV Physical Exam General appearance: alert, awake HEENT: abnl conjunctiva/sclera, dry mucosal memb ranes Neck: decreased range of motion Cardiovascular: normal capillary refill, regular rate rhythm Respiratory: aerating well, symmetric expansion Abdomen: non-tender Extremities: decreased range of motion Musculoskeletal: decreased ROM 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: alert, oriented X 3 Skin: abnormal color, abnormal temperature Psychiatry: normal affect, normal judgment/insig ht Results Findings/Data: Laboratory Tests 05/11/21 0510: [Embedded Image Not Available] Laboratory Tests 05/11 510 Chemistry Sodium (134 - 147 mEq/L) 137 Potassium (3.4 - 5.0 mEq/L) 3.6 Chloride (100 - 108 mEq/L) 104 Carbon Dioxide (21 - 33 mEq/l) 23 Anion Gap (0 - 20) 14 BUN (7 - 18 mg/dL) 11 Creatinine (0.6 - 1.3 mg/dL) 0.9 Glomerular Filtr Rate (70 - 80) 61.0 L Glucose (70 - 110 mg/dL) 100 Calcium (8.0 - 10.5 mg/dL) 8.6 Magnesium (1.80 - 2.40 mg/dL) 1.68 L Laboratory Tests 05/11 0510 Hematology WBC (4.5 - 11.0 x10 3/uL) 9.4 RBC (3.54 - 5.02 x10 6/uL) 3.48 L Hgb (11.0 - 15.0 g/dL) 11.3 Hct (33.0 - 45.0 %) 33.9 MCV (81.0 - 99.0 fL) 97.4 MCH (27.0 - 33.0 pg) 32.5 MCHC (33.0 - 37.0 g/dL) 33.3 RDW (11.5 - 14.5 %) 13.2 Plt Count (150 - 400 x10 3/uL) 140 L MPV (7.0 - 9.0 fL) 10.5 H Neut % (Auto) (56.0 - 77.0 %) 69.7 Lymph % (Auto) (14.0 - 32.0 %) 13.9 L [place] % (Auto) (4.8 - 9.0 %) 8.5 Eos % (Auto) (0.3 - 3.7 %) 7.1 H Baso % (Auto) (0.0 - 2.0 %) 0.5 Neut # (Auto) (2.0 - 7.6 x10 3/uL) 6.56 Lymph # (Auto) (1.0 - 3.8 x10 3/uL) 1.31 [place] # (Auto) (0.1 - 0.8 x10 3/uL) 0.80 Eos # (Auto) (0.0 - 0.2 x10 3/uL) 0.67 H Baso # (Auto) (0.0 - 0.2 x10 3/uL) 0.05 Abs Immat Gran (auto) (0.00 - 0.03 x10 3/uL) 0. 03 Add Manual Diff NO Immature Gran % (0.0 - 2.0 %) 0.3 Nucleated RBC % (0 - 0 %) 0.0 Nucleated RBCs # (Man) (0.0 - 0.1 x10 3/uL) 0.0 0 Diagnosis, Assessment Plan Free Text A P: change in bowel habits dual antiplatelet therapy recent pci cad recent egd/colonoscopy gastric ulcer - monitor h/h, transfuse as needed - ppi therapy - diet as tolerated - benefits of antiplatelet therapy > risks given recent PCI will monitor from a distance Electronically Signed by Eric Hall MD on at 1107 RPT #:[id number] END OF REPORT 2021-05-10 13:21:00-00:00 [facility] ([facility]) Hospitalist Progress Note REPORT#:[id number] REPORT STATUS: Signed DATE:05/10/21 TIME: 1321 PATIENT: MARLA CAMPOS UNIT #: [id number] ROOM/BED: [place] [id number] : 45 AGE: 75 SEX: F ATTEND: Leroy Bishop DO ADM AUTHOR: Rj Evans DO * ALL edits or amendments must be made on the [employer] document * Subjective Comments: Patient seen and examined, at bedside. D enies any new complaints with improvement of blood pressure. No overt bleeding currently noted. Discussed case with RN as well as cardiology Objective General VS/I O: Vital Signs: Date Time Temp Pulse Resp B/P B/P Pulse O2 O2 F low FiO2 Mean Ox Delivery Rate 05/10 1048 98.1 67 18 103/63 76.6 96 Room air 05/10 0758 98.1 61 18 104/58 72.9 96 Room air 05/09 2306 98.2 75 15 107/64 78.1 93 Room air 05/09 1855 98.2 62 14 110/67 81.5 93 Room air 05/09 1542 97.9 71 16 113/69 83.6 96 Room air 24 hour I O ending at 0700: 05/10 0700 05/09 1900 Intake Total 10.00 Output Total 800 Balance -800 10.00 Intake, IV 10.00 Output, Urine 800 PATIENT WEIGHT: Weight (lb): Weight (oz): Weight (kg): 70.700 Medications: Active Meds + DC'd Last 24 Hrs Magnesium Sulfate (MAGNESIUM SULFATE 2GM/SWFI 50 ML) 50 ML ONCE ONE IV Magnesium Sulfate (MAGNESIUM SULFATE 2GM/SWFI 50 ML) 50 ML ONCE ONE IV ( DC) Fentanyl Citrate (SUBLIMAZE) 100 MCG PACU Q10MIN PRN PRN IV (DC) Fentanyl Citrate (SUBLIMAZE) 50 MCG PACU Q10MIN PRN PRN IV (DC) Hydralazine HCl (APRESOLINE) 2 MG PACU Q10MIN P RN PRN IV (DC) Hydrocodone Bitart/Acetaminophen (NORCO 5/325) 1 TAB PACU ONCE PO (DC) Hydromorphone HCl (DILAUDID) 1 MG PACU Q10MIN NE N PRN IV (DC) Hydromorphone HCl (DILAUDID) 0.5 MG PACU Q5MIN P RN PRN IV (DC) Insulin Human Lispro (HUMALOG) 0 PACU ONCE PRN S UBQ (DC) Labetalol HCl (LABETALOL HCL) 5 MG PACU Q10MIN P RN PRN IV (DC) Lactated Ringer's (LACTATED RINGERS) 1,000 ML .Q 24H IV (DC) Meperidine HCl (DEMEROL 50MG/ML) 12.5 MG PACU ON CE PRN IV (DC) Morphine Sulfate (morphine SULFATE) 2 MG PACU Q1 0MIN PRN PRN IV (DC) Ondansetron HCl (ZOFRAN) 4 MG PACU ONCE PRN IV ( DC) Promethazine HCl (PHENERGAN) 25 MG PACU ONCE PRN IM (DC) Ropivacaine (NAROPIN 0.5% 150 MG/30mL) 150 MG DIR PRN LOCAL (DC) Tramadol HCl (ULTRAM) 50 MG PACU ONCE PO (DC) Atorvastatin Calcium (LIPITOR) 40 MG DAILY@2100 PO Aspirin (ASPIRIN) 81 MG DAILY PO Clopidogrel Bisulfate (Plavix) 75 MG DAILY PO Spironolactone (ALDACTONE) 50 MG DAILY PO Acetaminophen (TYLENOL) 650 MG Q4H PRN PRN PO Acetaminophen/Codeine Phosphate (TYLENOL W CODEI NE NO.3) 1 TAB Q6H PRN PRN PO Al Hydrox/Mg Hydrox/Simethicone (MYLANTA) 30 ML Q4H PRN PRN PO Docusate Sodium (COLACE) 100 MG BID PRN PRN PO Hydralazine HCl (APRESOLINE) 10 MG Q6H PRN PRN I V Ondansetron HCl (ZOFRAN) 4 MG Q4H PRN PRN IV Pantoprazole Sodium (PROTONIX) 80 MG .Q10H IV (C KD) Sodium Chloride (SODIUM CHLORIDE 0.9%) 100 ML Sodium Chloride (SODIUM CHLORIDE 0.9%) 1,000 ML .[id number] IV Sodium Chloride (SODIUM CHLORIDE) 10 ML ASDIR NE N IV Free Text Obj Notes Free Text Obj Notes: General appearance: alert, awake, oriented Head/Eyes: atraumatic, normocephalic ENT: moist mucosal membranes, normal pharynx Neck: non-tender, supple/no meningismus, no JVD Cardiovascular: normal capillary refill, normal heart sounds, regular rate rhythm Respiratory: aerating well, clear to auscultatio n, symmetric expansion Abdomen: non-tender, normal bowel sounds, soft, no distention Extremities: no clubbing, no cyanosis, no edema 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: alert, oriented X 3, CNII-XII intact Skin: dry, intact Psychiatry: normal affect, normal judgment/insig ht Diagnosis, Assessment Plan Problem List/A P: 1. Upper GI bleed Likely due to gastric ulcer in the setting of a spirin and Plavix Continue PPI per gastroenterology GI seen, plan for EGD, requesting cardiology cl earance/evaluation. Given recent stent placement, benefits outweigh risk o f ongoing dual antiplatelet therapy 2. CAD (coronary artery disease) Patient just had stents ike madisyn on 05/05/2021, will need to continue aspirin and Plavix at this time Continue Lipitor 40 mg at bedtime Patient had the stents placed in [place] Seen and discussed case with cardiology, contin ue to monitor patient on dual platelet therapy for few more days 3. Hypotension Transient hypotension has remain resolved, poss ibly secondary to hypovolemia and anesthesia, will continue to monitor, H H re mained stable 4. Gastric ulcer Continue PPI per gastroenterology. Benefits of antiplatelet therapy outweigh risk given recent PCI 5. Hypomagnesemia Replacement ordered Consultants: gastroenterology Free Text DxA P Notes Free text DxA P notes: SCDs for DVT prophylaxis Regular diet Patient does not have a living will or power of assistant city attorney Quality: Gen Med Crit Care VTE Prophylaxis VTE prophylaxis initiated: yes Current Medications Current medication review: I attest that the foregoing medication list in t he medical record is true, accurate, and complete to the best of my knowled ge. Advanced Care Plan 65 or Older Discussed with: patient Discussion included: living will, power of attor gamal, code status Electronically Signed by Rj Evans DO on 04/17 12/04 at 1323 RPT #:[id number] END OF REPORT 2021-05-10 08:57:00-00:00 [facility] ([facility]) Gastroenterology Progress Note REPORT#:[id number] REPORT STATUS: Signed DATE:05/10/21 TIME: 856 PATIENT: MARLA CAMPOS UNIT #: [id number] ROOM/BED: [place] [id number] : 45 AGE: 75 SEX: F ATTEND: Leroy Bishop DO ADM AUTHOR: Eric Hall MD * ALL edits or amendments must be made on the [employer]/computer document * Subjective Comments: by bedside, no overt gi bleeding overnig ht Review of Systems Additional notes: 10 point ros neg except hpi Objective General VS/I O: Last Documented: Result Date Time Pulse Ox 96 05/10 0758 B/P 104/58 05/10 0758 B/P Mean 72.9 05/10 0758 O2 Delivery Room air 05/10 075 Temp 36.7 05/10 0758 Pulse 61 05/10 0758 Resp 18 05/10 0758 FiO2 21 05/08 1750 24 hour I O ending at 0700: 05/10 0700 05/09 1900 Intake Total 10.00 Output Total 800 Balance -800 10.00 Intake, IV 10.00 Output, Urine 800 PATIENT WEIGHT: Weight (lb): Weight (oz): Weight (kg): 70.700 Medications: Active Meds + DC'd Last 24 Hrs Magnesium Sulfate (MAGNESIUM SULFATE 2GM/SWFI 50 ML) 50 ML ONCE ONE IV Magnesium Sulfate (MAGNESIUM SULFATE 2GM/SWFI 50 ML) 50 ML ONCE ONE IV Sodium Chloride (SODIUM CHLORIDE 0.9%) 500 ML CRISTINO ROSEANNA ONCE ONE IV (DC) Fentanyl Citrate (SUBLIMAZE) 100 MCG PACU Q10MIN PRN PRN IV (DC) Fentanyl Citrate (SUBLIMAZE) 50 MCG PACU Q10MIN PRN PRN IV (DC) Hydralazine HCl (APRESOLINE) 2 MG PACU Q10MIN NE N PRN IV (DC) Hydrocodone Bitart/Acetaminophen (NORCO 5/325) 1 TAB PACU ONCE PO (DC) Hydromorphone HCl (DILAUDID) 1 MG PACU Q10MIN NE N PRN IV (DC) Hydromorphone HCl (DILAUDID) 0.5 MG PACU Q5MIN P RN PRN IV (DC) Insulin Human Lispro (HUMALOG) 0 PACU ONCE PRN S UBQ (DC) Labetalol HCl (LABETALOL HCL) 5 MG PACU Q10MIN P RN PRN IV (DC) Lactated Ringer's (LACTATED RINGERS) 1,000 ML .Q 24H IV (DC) Meperidine HCl (DEMEROL 50MG/ML) 12.5 MG PACU ON CE PRN IV (DC) Morphine Sulfate (morphine SULFATE) 2 MG PACU Q1 0MIN PRN PRN IV (DC) Ondansetron HCl (ZOFRAN) 4 MG PACU ONCE PRN IV (DC) Promethazine HCl (PHENERGAN) 25 MG PACU ONCE PRN IM (DC) Ropivacaine (NAROPIN 0.5% 150 MG/30mL) 150 MG DIR PRN LOCAL (DC) Tramadol HCl (ULTRAM) 50 MG PACU ONCE PO (DC) Magnesium Sulfate (MAGNESIUM SULFATE 2GM/SWFI 50 ML) 50 ML ONCE ONE IV ( DC) Atorvastatin Calcium (LIPITOR) 40 MG DAILY@2100 PO Aspirin (ASPIRIN) 81 MG DAILY PO Clopidogrel Bisulfate (Plavix) 75 MG DAILY PO Spironolactone (ALDACTONE) 50 MG DAILY PO Acetaminophen (TYLENOL) 650 MG Q4H PRN PRN PO Acetaminophen/Codeine Phosphate (TYLENOL W CODEI NE NO.3) 1 TAB Q6H PRN PRN PO Al Hydrox/Mg Hydrox/Simethicone (MYLANTA) 30 ML Q4H PRN PRN PO Docusate Sodium (COLACE) 100 MG BID PRN PRN PO Hydralazine HCl (APRESOLINE) 10 MG Q6H PRN PRN I V Ondansetron HCl (ZOFRAN) 4 MG Q4H PRN PRN IV Pantoprazole Sodium (PROTONIX) 80 MG .Q10H IV (C KD) Sodium Chloride (SODIUM CHLORIDE 0.9%) 100 ML Sodium Chloride (SODIUM CHLORIDE 0.9%) 1,000 ML .[id number] IV Sodium Chloride (SODIUM CHLORIDE) 10 ML ASDIR NE N IV Physical Exam General appearance: alert, awake HEENT: abnl conjunctiva/sclera, dry mucosal memb ranes Neck: decreased range of motion Cardiovascular: normal capillary refill, regular rate rhythm Respiratory: aerating well, symmetric expansion Abdomen: non-tender Extremities: decreased range of motion Musculoskeletal: decreased ROM 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: alert, oriented X 3 Skin: abnormal color, abnormal temperature Psychiatry: normal affect, normal judgment/insig ht Results Findings/Data: Laboratory Tests 05/10/21 0510: [Embedded Image Not Available] 05/09/21 1138: [Embedded Image Not Available] Laboratory Tests 05/10 05/09 0510 1120 Chemistry Sodium (134 - 147 mEq/L) 136 Potassium (3.4 - 5.0 mEq/L) 3.8 Chloride (100 - 108 mEq/L) 104 Carbon Dioxide (21 - 33 mEq/l) 25 Anion Gap (0 - 20) 11 BUN (7 - 18 mg/dL) 13 Creatinine (0.6 - 1.3 mg/dL) 0.9 Glomerular Filtr Rate (70 - 80) 61.0 L Glucose (70 - 110 mg/dL) 90 POC Glucose (70 - 110 MG/DL) 113 H Calcium (8.0 - 10.5 mg/dL) 8.9 Magnesium (1.80 - 2.40 mg/dL) 1.49 L Laboratory Tests 05/10 05/09 0510 1138 Hematology WBC (4.5 - 11.0 x10 3/uL) 10.3 RBC (3.54 - 5.02 x10 6/uL) 3.63 Hgb (11.0 - 15.0 g/dL) 11.7 12.9 Hct (33.0 - 45.0 %) 34.0 36.8 MCV (81.0 - 99.0 fL) 93.7 MCH (27.0 - 33.0 pg) 32.2 MCHC (33.0 - 37.0 g/dL) 34.4 RDW (11.5 - 14.5 %) 12.9 Plt Count (150 - 400 x10 3/uL) 146 L MPV (7.0 - 9.0 fL) 10.9 H Neut % (Auto) (56.0 - 77.0 %) 73.9 Lymph % (Auto) (14.0 - 32.0 %) 13.6 L [place] % (Auto) (4.8 - 9.0 %) 7.1 Eos % (Auto) (0.3 - 3.7 %) 4.8 H Baso % (Auto) (0.0 - 2.0 %) 0.2 Neut # (Auto) (2.0 - 7.6 x10 3/uL) 7.60 Lymph # (Auto) (1.0 - 3.8 x10 3/uL) 1.40 [place] # (Auto) (0.1 - 0.8 x10 3/uL) 0.73 Eos # (Auto) (0.0 - 0.2 x10 3/uL) 0.49 H Baso # (Auto) (0.0 - 0.2 x10 3/uL) 0.02 Abs Immat Gran (auto) (0.00 - 0.03 x10 3/uL) 0. 04 H Add Manual Diff NO Immature Gran % (0.0 - 2.0 %) 0.4 Nucleated RBC % (0 - 0 %) 0.0 Nucleated RBCs # (Man) (0.0 - 0.1 x10 3/uL) 0. 00 Diagnosis, Assessment Plan Free Text A P: change in bowel habits dual antiplatelet therapy recent pci cad recent egd/colonoscopy gastric ulcer - monitor h/h, transfuse as needed - ppi therapy - diet as tolerated - benefits of antiplatelet therapy > risks given recent PCI Electronically Signed by Eric Hall MD on at 0947 [facility] #:[id number] END OF REPORT 2021-05-10 08:54:00-00:00 [id number] [place] [address] PATIENT NAME: MARLA CAMPOS ADMIT DATE: 05/07/21 ACCOUNT NO: [id number] ROOM NO: [facility] AGE: 75 REPORT TYPE: eECHOCARDIOGRAM REPORT SEX: F ADMITTING PHYSICIAN:Arun Bishop DO ATTENDING PHYSICIAN:Arun Bishop DO *[address] [address] Transthoracic Echocardiogram Patient: Marla Campos Study Date: 05/09/2021 BP: 127 / 81 Location: [facility] URN: [id number] : 1945 Age: 75 Height: 65 in / 165.1 cm Gender: F Weight: 154 .7 lb / 70.3 kg BMI/BSA: 25.8 kg/m 2 / 1.78 m 2 *Ordering Physician: * Rj Evans *Interpreting Physician: * Edyta Reynolds MD *Gathering Worker: * Gia Stinson Indications: R/o CHF , recent [place] with stents. Study data: Transthoracic echocardiogram. Proced ure: Transthoracic echocardiography was performed. Image quality wa s adequate. The study was technically limited due to restricted patien t mobility. The parasternal window was low, thus no M-mode measu rements were recorded. Complete 2D, complete spectral Doppler, and colo r Doppler. Location: Bedside. Patient status: Inpatient. Patient room number: 6601. Study status: RG. Findings Left ventricle: The cavity size is normal. Wall thickness is normal. Systolic function is normal. The estimated eject ion fraction is 60-64%. Wall motion is normal; there are no regional wal l motion abnormalities. Left ventricular diastolic function parameters a re normal for the PATIENT NAME: MARLA CAMPOS 89 patient's age. Right ventricle: The cavity size is normal. Syst olic function is normal. Insufficient tricuspid regurgitation jet to estimate RVSP. Left atrium: The atrium is normal in size. Right atrium: The atrium is normal in size. Aorta: Aortic root: The aortic root is normal in size. Aortic valve: Not well visualized. The valve is trileaflet. There is no evidence of stenosis. There is no regurgit ation. Mitral valve: The valve is structurally normal. There is no evidence of stenosis. There is no regurgitation. Tricuspid valve: The valve is structurally delon l. There is no regurgitation. Pulmonic valve: Not well visualized. There is no regurgitation. Pericardium: There is no pericardial effusion. Pulmonary arteries: The main pulmonary artery is normal-sized. Systemic veins: Inferior vena cava: The vessel is normal in size . The respirophasic diameter changes are in the normal range (= 50%) . Measurements Left ventricle Value Ref JORGE, LAX 4.2 cm 3.8 - 5.2 ESD, LAX 3.0 cm 2.2 - 3.5 ESD/bsa, LAX 1.7 cm/m 2 1.3 - 2.1 FS, LAX 29 % 27 - 45 ESD/bsa major 3.0 cm/m 2 --------- ax, A4C JORGE/bsa minor 3.0 cm/m 2 --------- ax, A4C JORGE major ax, 6.1 cm --------- A2C ESD major ax, 5.1 cm --------- A2C JORGE/bsa major 3.4 cm/m 2 --------- ax, A2C ESD/bsa major 2.8 cm/m 2 --------- ax, A2C PW, ED 0.8 cm 0.6 - 0.9 IVS/PW, ED 0.92 --------- EF 56 % 54 - 74 E', lat tito, 7.6 cm/sec >=10.0 TDI E/e', lat tito, 11 --------- TDI E', med tito, 5.0 cm/sec >=7.0 TDI E/e', med tito, 16 --------- TDI E', avg, TDI 6.3 cm/sec --------- E/e', avg, TDI 13 <=14 PATIENT NAME: MARLA CAMPOS 89 LVOT Value Ref Diam, S 2.02 cm --------- Area 3.2 cm 2 --------- Peak sandy, S 1.34 m/sec --------- Mean sandy, S 0.88 m/sec --------- VTI, S 24.7 cm --------- Peak grad, S 7 mm Hg --------- Mean grad, S 4 mm Hg --------- SV 79 ml --------- Qs 5.98 L/min --------- Qs/bsa 3.4 L/(min-m 2) --------- SV/bsa 44 ml/m 2 --------- Ventricular septum Value Ref IVS, ED 0.7 cm 0.6 - 0.9 Right ventricle Value Ref TAPSE, MM 1.7 cm 1.7 - 3.1 RVOT Value Ref Peak v, S 1.13 m/sec --------- Peak grad, S 5 mm Hg --------- Left atrium Value Ref AP dim, ES 3.91 cm 2.70 - 3.80 Vol/bsa, ES, 20 ml/m 2 11 - 40 1-p A4C Vol, ES, 2-p 49 ml --------- Vol/bsa, ES, 28 ml/m 2 16 - 34 2-p Vol/bsa, ES, 23 ml/m 2 16 - 34 A/L AP dim, ES MM 3.8 cm 2.7 - 3.8 LA/Ao root 1.34 --------- ratio, MM Right atrium Value Ref Area, ES 10 cm 2 10 - 18 SI dim, ES, A4C 4.1 cm 3.4 - 5.3 SI dim/bsa, ES, 2.3 cm/m 2 1.9 - 3.1 A4C Vol, ES, A/L 22 ml --------- Vol, ES, 1-p 21 ml --------- A4C Vol/bsa, ES, 12 ml/m 2 9 - 33 1-p A4C Aortic valve Value Ref Leaflet sep 3.0 cm --------- Leaflet sep, MM 1.96 cm --------- Peak v, S 1.38 m/sec --------- Mean v, S 0.98 m/sec --------- VTI, S 24.9 cm --------- PATIENT NAME: MARLA CAMPOS [id number] Mean grad, S 4.3 mm Hg --------- Peak grad, S 7.6 mm Hg --------- LVOT/AV, VTI 0.99 --------- ratio NOEL, VTI 3.18 cm 2 --------- LVOT/AV, Vpeak 0.97 --------- ratio NOEL, Vmax 3.12 cm 2 --------- Mitral valve Value Ref Peak E 0.06 m/sec --------- Peak A 1.03 m/sec --------- Decel time 190 ms --------- PHT 43 ms --------- Peak E/A ratio 0.8 --------- MVA, PHT 5.1 cm 2 --------- Pulmonic valve Value Ref NE v, ED 0.76 m/sec --------- Aortic root Value Ref Root diam, ED 2.83 cm --------- MM Conclusions Summary: Left ventricle: The cavity size is norm al. Wall thickness is normal. Systolic function is normal. The estimat ed ejection fraction is 60-64%. Wall motion is normal; there are no ramakrishna onal wall motion abnormalities. Left ventricular diastolic functi on parameters are normal for the patient's age. Prepared and electronical ly signed by Edyta Reynolds MD 05/10/2021 08:54 Electronically Signed by Edyta Reynolds MD on at 0854 PATIENT NAME: MARLA CAMPOS 286 2021-05-10 08:44:00-00:00 [facility] REPORT#:[id number] REPORT STATUS: Signed DATE:05/10/21 TIME: 08 PATIENT: MARLA CAMPOS UNIT #: [id number] ROOM/BED: [place] [id number] : 45 AGE: 75 SEX: F ATTEND: Leroy Bishop DO ADM AUTHOR: Edyta Reynolds MD * ALL edits or amendments must be made on the [employer] document * Objective General VS/I O: 24 hour I O ending at 0700: 05/10 0700 05/09 1900 Intake Total 10.00 Output Total 800 Balance -800 10.00 Intake, IV 10.00 Output, Urine 800 Vital Signs: Date Time Temp Pulse Resp B/P B/P Pulse O2 O2 F low FiO2 Mean Ox Delivery Rate 05/10 0758 98.1 61 18 104/58 72.9 96 Room air 05/09 2306 98.2 75 15 107/64 78.1 93 Room air 05/09 1855 98.2 62 14 110/67 81.5 93 Room air 05/09 1542 97.9 71 16 113/69 83.6 96 Room air 05/09 1215 83 127/81 96.2 05/09 1148 70 120/65 83.5 05/09 1116 97.9 59 16 74/40 51.2 93 Room air 05/09 0955 90 18 139/67 97 05/09 0950 91 24 138/65 96 05/09 0945 93 21 135/64 96 05/09 0940 98 20 146/63 96 05/09 0935 102 25 127/71 96 05/09 0930 97.6 103 23 115/55 100 Room air 05/09 0919 97 18 143/68 97 Room air PATIENT WEIGHT: Weight (lb): Weight (oz): Weight (kg): 70.700 Medications: Active Meds + DC'd Last 24 Hrs Sodium Chloride (SODIUM CHLORIDE 0.9%) 500 ML CRISTINO ROSEANNA ONCE ONE IV (DC) Lidocaine HCl (XYLOCAINE) 0 .STK-MED ONE .ROUTE (DC) Propofol (DIPRIVAN 200MG/20ML INJECTION) 20 ML . STK-MED ONE IV (DC) Fentanyl Citrate (SUBLIMAZE) 100 MCG PACU Q10MIN PRN PRN IV (DC) Fentanyl Citrate (SUBLIMAZE) 50 MCG PACU Q10MIN PRN PRN IV (DC) Hydralazine HCl (APRESOLINE) 2 MG PACU Q10MIN NE N PRN IV (DC) Hydrocodone Bitart/Acetaminophen (NORCO 5/325) 1 TAB PACU ONCE PO (DC) Hydromorphone HCl (DILAUDID) 1 MG PACU Q10MIN NE N PRN IV (DC) Hydromorphone HCl (DILAUDID) 0.5 MG PACU Q5MIN P RN PRN IV (DC) Insulin Human Lispro (HUMALOG) 0 PACU ONCE PRN S UBQ (DC) Labetalol HCl (LABETALOL HCL) 5 MG PACU Q10MIN P RN PRN IV (DC) Lactated Ringer's (LACTATED RINGERS) 1,000 ML .Q 24H IV (DC) Meperidine HCl (DEMEROL 50MG/ML) 12.5 MG PACU ON CE PRN IV (DC) Morphine Sulfate (morphine SULFATE) 2 MG PACU Q1 0MIN PRN PRN IV (DC) Ondansetron HCl (ZOFRAN) 4 MG PACU ONCE PRN IV ( DC) Promethazine HCl (PHENERGAN) 25 MG PACU ONCE PRN IM (DC) Ropivacaine (NAROPIN 0.5% 150 MG/30mL) 150 MG A SDIR PRN LOCAL (DC) Tramadol HCl (ULTRAM) 50 MG PACU ONCE PO (DC) Magnesium Sulfate (MAGNESIUM SULFATE 2GM/SWFI 50 ML) 50 ML ONCE ONE IV ( DC) Atorvastatin Calcium (LIPITOR) 40 MG DAILY@2100 PO Aspirin (ASPIRIN) 81 MG DAILY PO Clopidogrel Bisulfate (Plavix) 75 MG DAILY PO Spironolactone (ALDACTONE) 50 MG DAILY PO Acetaminophen (TYLENOL) 650 MG Q4H PRN PRN PO Acetaminophen/Codeine Phosphate (TYLENOL W CODEI NE NO.3) 1 TAB Q6H PRN PRN PO Al Hydrox/Mg Hydrox/Simethicone (MYLANTA) 30 ML Q4H PRN PRN PO Docusate Sodium (COLACE) 100 MG BID PRN PRN PO Hydralazine HCl (APRESOLINE) 10 MG Q6H PRN PRN I V Ondansetron HCl (ZOFRAN) 4 MG Q4H PRN PRN IV Pantoprazole Sodium (PROTONIX) 80 MG .Q10H IV (C KD) Sodium Chloride (SODIUM CHLORIDE 0.9%) 100 ML Sodium Chloride (SODIUM CHLORIDE 0.9%) 1,000 ML .[id number] IV Sodium Chloride (SODIUM CHLORIDE) 10 ML ASDIR NE N IV Results Findings/Data: Laboratory Tests 05/10 05/09 0510 1120 Chemistry Sodium (134 - 147 mEq/L) 136 Potassium (3.4 - 5.0 mEq/L) 3.8 Chloride (100 - 108 mEq/L) 104 Carbon Dioxide (21 - 33 mEq/l) 25 Anion Gap (0 - 20) 11 BUN (7 - 18 mg/dL) 13 Creatinine (0.6 - 1.3 mg/dL) 0.9 Glomerular Filtr Rate (70 - 80) 61.0 L Glucose (70 - 110 mg/dL) 90 POC Glucose (70 - 110 MG/DL) 113 H Calcium (8.0 - 10.5 mg/dL) 8.9 Magnesium (1.80 - 2.40 mg/dL) 1.49 L Laboratory Tests 05/10 05/09 0510 1138 Hematology WBC (4.5 - 11.0 x10 3/uL) 10.3 RBC (3.54 - 5.02 x10 6/uL) 3.63 Hgb (11.0 - 15.0 g/dL) 11.7 12.9 Hct (33.0 - 45.0 %) 34.0 36.8 MCV (81.0 - 99.0 fL) 93.7 MCH (27.0 - 33.0 pg) 32.2 MCHC (33.0 - 37.0 g/dL) 34.4 RDW (11.5 - 14.5 %) 12.9 Plt Count (150 - 400 x10 3/uL) 146 L MPV (7.0 - 9.0 fL) 10.9 H Neut % (Auto) (56.0 - 77.0 %) 73.9 Lymph % (Auto) (14.0 - 32.0 %) 13.6 L [place] % (Auto) (4.8 - 9.0 %) 7.1 Eos % (Auto) (0.3 - 3.7 %) 4.8 H Baso % (Auto) (0.0 - 2.0 %) 0.2 Neut # (Auto) (2.0 - 7.6 x10 3/uL) 7.60 Lymph # (Auto) (1.0 - 3.8 x10 3/uL) 1.40 [place] # (Auto) (0.1 - 0.8 x10 3/uL) 0.73 Eos # (Auto) (0.0 - 0.2 x10 3/uL) 0.49 H Baso # (Auto) (0.0 - 0.2 x10 3/uL) 0.02 Abs Immat Gran (auto) (0.00 - 0.03 x10 3/uL) 0. 04 H Add Manual Diff NO Immature Gran % (0.0 - 2.0 %) 0.4 Nucleated RBC % (0 - 0 %) 0.0 Nucleated RBCs # (Man) (0.0 - 0.1 x10 3/uL) 0.0 0 Laboratory Tests 05/10 0510 Chemistry Magnesium (1.80 - 2.40 mg/dL) 1.49 L Diagnosis, Assessment Plan Free Text DxA P Notes Free Text DxA P Notes: Patient is 75 year old woman with recent PCI (05/05/21), on aspirin/plavix, with prior history of GI ulcers. She reports had an EGD/Colonoscopy a few months ago. Cardiology consulted for CAD with GI bleed. CAD - - 05/05/21 LHC: atherectomy of [id number] R CA, PCI to proximal, mid-to- distal RCA - cont ASA 81mg PO daily - cont Plavix 75mg PO daily - cont statin daily - patient must remain on javid l antiplatelet therapy, given recent stent 05/05/20 GI Bleed - HGB stable - GI following - CT Abd: No acute CT abnormalities of the abdom en or pelvis are detected. Electronically Signed by Edyta Reynolds MD on at 1151 RPT #:[id number] END OF REPORT 2021-05-09 14:04:00-00:00 [facility] Hospitalist Progress Note REPORT#:[id number] REPORT STATUS: Signed DATE:05/09/21 TIME: 1404 PATIENT: MARLA CAMPOS UNIT #: [id number] ROOM/BED: [place] [id number] : 45 AGE: 75 SEX: F ATTEND: Chelsea Bishop DO ADM AUTHOR: Rj Evans DO * ALL edits or amendments must be made on the [employer] document * Subjective Comments: Patient seen and examined af ter EGD. Called by RN post EGD that the patient was feeling nauseous and blood pressure was low in t he 70s over 40s. Objective General VS/I O: Vital Signs: Date Time Temp Pulse Resp B/P B/P Pulse O2 O2 F low FiO2 Mean Ox Delivery Rate 05/09 1215 83 127/81 96.2 05/09 1148 70 120/65 83.5 05/09 1116 97.9 59 16 74/40 51.2 93 Room air 05/09 0955 90 18 139/67 97 05/09 0950 91 24 138/65 96 05/09 0945 93 21 135/64 96 05/09 0940 98 20 146/63 96 05/09 0935 102 25 127/71 96 05/09 0930 97.6 103 23 115/55 100 Room air 05/09 0919 97 18 143/68 97 Room air 05/09 0709 98.4 54 16 132/63 86.2 94 Room air 05/09 0427 97.7 64 16 114/59 77.4 97 Room air 05/09 0023 94 Room air 05/08 2338 97.9 65 16 139/57 84.0 96 Room air 05/08 1919 97.7 73 17 137/77 97.3 94 Room air 05/08 1750 Room air 21 05/08 1514 98.1 68 15 124/64 84.1 95 Room air 24 hour I O ending at 0700: 05/09 0700 05/08 1900 Intake Total Output Total 1100 Balance -1100 Number 1 Bowel Movements Output, Urine 1100 PATIENT WEIGHT: Weight (lb): Weight (oz): Weight (kg): 70.700 Medications: Active Meds + DC'd Last 24 Hrs Sodium Chloride (SODIUM CHLORIDE 0.9%) 500 ML CRISTINO ROSEANNA ONCE ONE IV (DC) Lidocaine HCl (XYLOCAINE) 0 .STK-MED ONE .ROUTE (DC) Propofol (DIPRIVAN 200MG/20ML INJECTION) 20 ML . STK-MED ONE IV (DC) Fentanyl Citrate (SUBLIMAZE) 100 MCG PACU Q10MIN PRN PRN IV Fentanyl Citrate (SUBLIMAZE) 50 MCG PACU Q10MIN PRN PRN IV Hydralazine HCl (APRESOLINE) 2 MG PACU Q10MIN NE N PRN IV Hydrocodone Bitart/Acetaminophen (NORCO 5/325) 1 TAB PACU ONCE PO (CKD) Hydromorphone HCl (DILAUDID) 1 MG PACU Q10MIN NE N PRN IV Hydromorphone HCl (DILAUDID) 0.5 MG PACU Q5MIN P RN PRN IV Insulin Human Lispro (HUMALOG) 0 PACU ONCE PRN S UBQ Labetalol HCl (LABETALOL HCL) 5 MG PACU Q10MIN P RN PRN IV Lactated Ringer's (LACTATED RINGERS) 1,000 ML .Q 24H IV Meperidine HCl (DEMEROL 50MG/ML) 12.5 MG PACU ON CE PRN IV Morphine Sulfate (morphine SULFATE) 2 MG PACU Q1 0MIN PRN PRN IV Ondansetron HCl (ZOFRAN) 4 MG PACU ONCE PRN IV Promethazine HCl (PHENERGAN) 25 MG PACU ONCE PRN IM Ropivacaine (NAROPIN 0.5% 150 MG/30mL) 150 MG DIR PRN LOCAL Tramadol HCl (ULTRAM) 50 MG PACU ONCE PO (CKD) Magnesium Sulfate (MAGNESIUM SULFATE 2GM/SWFI 50 ML) 50 ML ONCE ONE IV ( DC) Atorvastatin Calcium (LIPITOR) 40 MG DAILY@2100 PO Pantoprazole Sodium (PROTONIX) 80 MG Q10H IV (DC ) Sodium Chloride (SODIUM CHLORIDE 0.9%) 100 ML Aspirin (ASPIRIN) 81 MG DAILY PO Clopidogrel Bisulfate (Plavix) 75 MG DAILY PO Spironolactone (ALDACTONE) 50 MG DAILY PO Acetaminophen (TYLENOL) 650 MG Q4H PRN PRN PO Acetaminophen/Codeine Phosphate (TYLENOL W CODEI NE NO.3) 1 TAB Q6H PRN PRN PO Al Hydrox/Mg Hydrox/Simethicone (MYLANTA) 30 ML Q4H PRN PRN PO Docusate Sodium (COLACE) 100 MG BID PRN PRN PO Hydralazine HCl (APRESOLINE) 10 MG Q6H PRN PRN I V Ondansetron HCl (ZOFRAN) 4 MG Q4H PRN PRN IV Pantoprazole Sodium (PROTONIX) 80 MG .Q10H IV (C KD) Sodium Chloride (SODIUM CHLORIDE 0.9%) 100 ML Sodium Chloride (SODIUM CHLORIDE 0.9%) 1,000 ML .[id number] IV Sodium Chloride (SODIUM CHLORIDE) 10 ML ASDIR NE N IV Sodium Chloride (SODIUM CHLORIDE) 0 ASDIR PRN IV (DC) Free Text Obj Notes Free Text Obj Notes: General appearance: alert, awake, oriented Head/Eyes: atraumatic, normocephalic ENT: moist mucosal membranes, normal pharynx Neck: non-tender, supple/no meningismus, no JVD Cardiovascular: normal capillary refill, normal heart sounds, regular rate rhythm Respiratory: aerating well, clear to auscultatio n, symmetric expansion Abdomen: non-tender, normal bowel sounds, soft, no distention Extremities: no clubbing, no cyanosis, no edema 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: alert, oriented X 3, CNII-XII intact Skin: dry, intact Psychiatry: normal affect, normal judgment/insig ht Diagnosis, Assessment Plan Problem List/A P: 1. Upper GI bleed Likely due to gastric ulcer in the setting of a spirin and Plavix Continue PPI per gastroenterology GI seen, plan for EGD, requesting cardiology cl earance/evaluation. Given recent stent placement, benefits outweigh risk o f ongoing dual antiplatelet therapy 2. CAD (coronary artery disease) Patient just had stents ike madisyn on 05/05/2021, will need to continue aspirin and Plavix at this time Continue Lipitor 40 mg at bedtime Patient had the stents placed in [place] Await cardiology evaluation 3. Hypotension Patient with transient hypotension post EGD, immediately came to evaluate the patient and started normal saline bolus with sub sequent improvement of hemodynamics. Patient denies any symptom aside f rom nausea which has since resolved. Denies any chest pain, chest pressure, shortness of breath, palpitations. Denies feel lightheaded or dizzy. No active bleeding appreciated. Stat H H was drawn with an actual i mprovement of hemoglobin to 12.9 from 12.6 earlier this morning. Mag nesium already being replaced. We will continue to monitor on telemetry with cardiology consulted and following. Suspect transient hypotension possibly from hypo volemia given n.p.o. prior to procedure as well as anesthe caterina. If symptoms recur or worsen, discussed with RN need to transfer the patient to higher level of care. We will continue to monitor for now. Patient denies any prior histor y of heart failure despite recent stent placement however will check echoca rdiogram for completeness 4. Gastric ulcer Continue PPI per gastroenterology. Benefits of antiplatelet therapy outweigh risk given recent PCI Consultants: gastroenterology Free Text DxA P Notes Free text DxA P notes: SCDs for DVT prophylaxis Clear liquid diet Patient does not have a living will or power of assistant city attorney Quality: Gen [facility] Crit Care VTE Prophylaxis VTE prophylaxis initiated: yes Current Medications Current medication review: I attest that the foregoing medication list in t he medical record is true, accurate, and complete to the best of my knowled ge. Advanced Care Plan 65 or Older Discussed with: patient Discussion included: living will, power of attor gamal, code status Electronically Signed by Rj Evans DO on 04/17 11/04 at 1411 RPT #:[id number] END OF REPORT 2021-05-09 10:19:00-00:00 [facility] ([facility]) Gastroenterology Progress Note REPORT#:[id number] REPORT STATUS: Signed DATE:05/09/21 TIME: 1019 PATIENT: MARLA CAMPOS UNIT #: [id number] ROOM/BED: [place] [id number] : 45 AGE: 75 SEX: F ATTEND: Chelsea Bishop DO ADM AUTHOR: Eric Hall MD * ALL edits or amendments must be made on the [employer]/computer document * Subjective Comments: s/p EGD: gastric ulcer Review of Systems Additional notes: 10 point ros neg except hpi Objective General VS/I O: Last Documented: Result Date Time B/P 127/81 05/09 1215 B/P Mean 96.2 05/09 1215 Pulse 83 05/09 1215 Pulse Ox 93 05/09 1116 O2 Delivery Room air 05/09 1116 Temp 36.6 05/09 1116 Resp 16 05/09 1116 FiO2 21 05/08 1750 24 hour I O ending at 0700: 05/09 0700 05/08 1900 Intake Total Output Total 1100 Balance -1100 Number 1 Bowel Movements Output, Urine 1100 PATIENT WEIGHT: Weight (lb): Weight (oz): Weight (kg): 70.700 Medications: Active Meds + DC'd Last 24 Hrs Sodium Chloride (SODIUM CHLORIDE 0.9%) 500 ML CRISTINO ROSEANNA ONCE ONE IV (DC) Lidocaine HCl (XYLOCAINE) 0 .STK-MED ONE .ROUTE (DC) Propofol (DIPRIVAN 200MG/20ML INJECTION) 20 ML .STK-MED ONE IV (DC) Fentanyl Citrate (SUBLIMAZE) 100 MCG PACU Q10MIN PRN PRN IV Fentanyl Citrate (SUBLIMAZE) 50 MCG PACU Q10MIN PRN PRN IV Hydralazine HCl (APRESOLINE) 2 MG PACU Q10MIN NE N PRN IV Hydrocodone Bitart/Acetaminophen (NORCO 5/325) 1 TAB PACU ONCE PO (CKD) Hydromorphone HCl (DILAUDID) 1 MG PACU Q10MIN NE N PRN IV Hydromorphone HCl (DILAUDID) 0.5 MG PACU Q5MIN P RN PRN IV Insulin Human Lispro (HUMALOG) 0 PACU ONCE PRN S UBQ Labetalol HCl (LABETALOL HCL) 5 MG PACU Q10MIN P RN PRN IV Lactated Ringer's (LACTATED RINGERS) 1,000 ML .Q 24H IV Meperidine HCl (DEMEROL 50MG/ML) 12.5 MG PACU ON CE PRN IV Morphine Sulfate (morphine SULFATE) 2 MG PACU Q1 0MIN PRN PRN IV Ondansetron HCl (ZOFRAN) 4 MG PACU ONCE PRN IV Promethazine HCl (PHENERGAN) 25 MG PACU ONCE PRN IM Ropivacaine (NAROPIN 0.5% 150 MG/30mL) 150 MG DIR PRN LOCAL Tramadol HCl (ULTRAM) 50 MG PACU ONCE PO (CKD) Magnesium Sulfate (MAGNESIUM SULFATE 2GM/SWFI 50 ML) 50 ML ONCE ONE IV ( DC) Atorvastatin Calcium (LIPITOR) 40 MG DAILY@2100 PO Pantoprazole Sodium (PROTONIX) 80 MG Q10H IV (DC ) Sodium Chloride (SODIUM CHLORIDE 0.9%) 100 ML Aspirin (ASPIRIN) 81 MG DAILY PO Clopidogrel Bisulfate (Plavix) 75 MG DAILY PO Spironolactone (ALDACTONE) 50 MG DAILY PO Acetaminophen (TYLENOL) 650 MG Q4H PRN PRN PO Acetaminophen/Codeine Phosphate (TYLENOL W CODEI NE NO.3) 1 TAB Q6H PRN PRN PO Al Hydrox/Mg Hydrox/Simethicone (MYLANTA) 30 ML Q4H PRN PRN PO Docusate Sodium (COLACE) 100 MG BID PRN PRN PO Hydralazine HCl (APRESOLINE) 10 MG Q6H PRN PRN I V Ondansetron HCl (ZOFRAN) 4 MG Q4H PRN PRN IV Pantoprazole Sodium (PROTONIX) 80 MG .Q10H IV (C KD) Sodium Chloride (SODIUM CHLORIDE 0.9%) 100 ML Sodium Chloride (SODIUM CHLORIDE 0.9%) 1,000 ML .[id number] IV Sodium Chloride (SODIUM CHLORIDE) 10 ML ASDIR NE N IV Sodium Chloride (SODIUM CHLORIDE) 0 ASDIR PRN IV (DC) Physical Exam General appearance: alert, awake HEENT: abnl conjunctiva/sclera, dry mucosal memb ranes Neck: decreased range of motion Cardiovascular: normal capillary refill, regular rate rhythm Respiratory: aerating well, symmetric expansion Abdomen: non-tender Extremities: decreased range of motion Musculoskeletal: decreased ROM 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: alert, oriented X 3 Skin: abnormal color, abnormal temperature Psychiatry: normal affect, normal judgment/insig ht Results Findings/Data: Laboratory Tests 05/09/21 1138: [Embedded Image Not Available] 05/09/21 0500: [Embedded Image Not Available] Laboratory Tests 05/09 05/09 1120 0500 Chemistry Sodium (134 - 147 mEq/L) 136 Potassium (3.4 - 5.0 mEq/L) 3.4 Chloride (100 - 108 mEq/L) 101 Carbon Dioxide (21 - 33 mEq/l) 28 Anion Gap (0 - 20) 11 BUN (7 - 18 mg/dL) 9 Creatinine (0.6 - 1.3 mg/dL) 0.9 Glomerular Filtr Rate (70 - 80) 61.0 L Glucose (70 - 110 mg/dL) 89 POC Glucose (70 - 110 MG/DL) 113 H Calcium (8.0 - 10.5 mg/dL) 9.3 Magnesium (1.80 - 2.40 mg/dL) 1.44 L Laboratory Tests 05/09 05/09 1138 0500 Hematology WBC (4.5 - 11.0 x10 3/uL) 8.8 RBC (3.54 - 5.02 x10 6/uL) 3.92 Hgb (11.0 - 15.0 g/dL) 12.9 12.6 Hct (33.0 - 45.0 %) 36.8 37.2 MCV (81.0 - 99.0 fL) 94.9 MCH (27.0 - 33.0 pg) 32.1 MCHC (33.0 - 37.0 g/dL) 33.9 RDW (11.5 - 14.5 %) 12.9 Plt Count (150 - 400 x10 3/uL) 144 L MPV (7.0 - 9.0 fL) 10.6 H Neut % (Auto) (56.0 - 77.0 %) 70.3 Lymph % (Auto) (14.0 - 32.0 %) 17.2 [place] % (Auto) (4.8 - 9.0 %) 6.7 Eos % (Auto) (0.3 - 3.7 %) 5.0 H Baso % (Auto) (0.0 - 2.0 %) 0.5 Neut # (Auto) (2.0 - 7.6 x10 3/uL) 6.22 Lymph # (Auto) (1.0 - 3.8 x10 3/uL) 1.52 [place] # (Auto) (0.1 - 0.8 x10 3/uL) 0.59 Eos # (Auto) (0.0 - 0.2 x10 3/uL) 0.44 H Baso # (Auto) (0.0 - 0.2 x10 3/uL) 0.04 Abs Immat Gran (auto) (0.00 - 0.03 x10 3/uL) 0. 03 Add Manual Diff NO Immature Gran % (0.0 - 2.0 %) 0.3 Nucleated RBC % (0 - 0 %) 0.0 Nucleated RBCs # (Man) (0.0 - 0.1 x10 3/uL) 0.0 0 Laboratory Tests 05/08 1845 Serology SARS-CoV-2 Ag (Rapid) (Negative) Negative Diagnosis, Assessment Plan Free Text A P: change in bowel habits dual antiplatelet therapy recent pci cad recent egd/colonoscopy gastric ulcer - monitor h/h, transfuse as needed - ppi therapy - diet as tolerated - benefits of antiplatelet therapy > risks given recent PCI Electronically Signed by Eric Hall MD on at 1314 RPT #:[id number] END OF REPORT 2021-05-09 08:59:00-00:00 [id number] [address] PATIENT NAME: MARLA CAMPOS ADMIT DATE: 1 ACCOUNT NO: [id number] ROOM NO: [id number] AGE: 75 REPORT TYPE: ENDOSCOPY REPORT SEX: F ADMITTING PHYSICIAN:Arun Bishop DO ATTENDING PHYSICIAN:Arun Bishop DO Gastroenterology Patient Name: Marla Campos Procedure Date: 04/17 8:59 AM Date of : 1945 Procedure: Upper GI endoscopy Indications: Epigastric abdominal pain, Melena Providers: Eric Hall MD Referring MD: Requesting Provider: Medicines: Monitored Anesthesia Care Procedure: Pre-Anesthesia Assessment: - Prior to the procedure, a History and Physica l was performed, and patient medications and allergie s were reviewed. The patient's tolerance of previous anesthesia was also reviewed. The risks and placido efits of the procedure and the sedation options and risks were discussed with the patient. All questions were answered, and informed consent was obtained. Pr ior Anticoagulants: The patient has taken antiplate let medication, last dose was day of procedure. ASA Grade Assessment: III - A patient with severe system ic disease. After reviewing the risks and benefits , the patient was deemed in satisfactory condition to undergo the procedure. After obtaining informed consent, the endoscope was passed under direct vision. Throughout the proc edure, the patient's blood pressure, pulse, and oxygen saturations were monitored continuously. The En doscope was introduced through the mouth, and advanced to the second part of duodenum. The upper GI endoscopy was accomplished without difficulty. The patient to lerated the procedure well. Findings: LA Grade A (one or more mucosal breaks less chyna n 5 mm, not extending between tops of 2 mucosal folds) esophagitis wi th no bleeding was found. A small hiatal hernia was present. Localized severe inflammation characterized by shallow ulcerations was found in the gastric body. The examined duodenum was normal. PATIENT NAME: MARLA CAMPOS 1286 Complications: No immediate complications. Estimated Blood Loss: Estimated blood loss: none. Impression: - LA Grade A reflux esophagitis with no bleeding. - Tiny hiatal hernia. - Chronic gastritis with shallow ulcers. - Normal examined duodenum. - No specimens collected. Recommendation: - Resume previous diet. - Continue present medications. - Consider benefits and risks of single antipla telet therapy vs. dual antiplatelet therapy in view o f resolving gi bleeding and recent PCI. Procedure Code(s): --- Professional --- 96807, Esophagogastroduodenoscopy, flexible, transoral; diagnostic, including collection of specimen(s) by brushing or washing, when perfor med (separate procedure) Diagnosis Code(s): --- Professional --- K21.00, Gastro-esophageal reflux disease with esophagitis, without bleeding K44.9, Diaphragmatic hernia without obstruction or gangrene K29.50, Unspecified chronic gastritis without b leeding R10.13, Epigastric pain K92.1, Melena (includes Hematochezia) CPT copyright 2020 [employer]. All rights reserved. The codes documented in this report are prelimin james and upon application release manager review may be revised to meet current compliance requiremen ts. Eric Hall MD Eric Hall MD 05/09/2021 9:34:32 AM This report has been signed electronically. Number of Addenda: 0 Note Initiated On: 05/09/2021 8:59 AM Provation {[id number] ProVation FT PDF Electronically Signed by Eric Hall MD on at 0934 PATIENT NAME: MARLA CAMPOS 286 2021-05-08 21:17:00-00:00 [facility] ([facility]) Cardiology Consultation REPORT#:[id number] REPORT STATUS: Signed DATE:05/08/21 TIME: 2116 PATIENT: MARLA CAMPOS UNIT #: [id number] ROOM/BED: [place] [id number] : 45 AGE: 75 SEX: F ATTEND: Leroy Bishop DO ADM AUTHOR: Cami Amos APRN * ALL edits or amendments must be made on the [employer]/computer document * Cami Amos 05/08/212116: History of Present Illness HPI Reason for consult: CAD with GI bleed Chief complaint: GI bleed/dark stools Free Text HPI Notes Free Text HPI Notes: Patient is 75 year old woman with recent PCI (05/05/21), on aspirin/plavix, with prior history of GI ulcers. She reports had an EGD/Colonoscopy a few months ago. She reports dark stools, which led her to come [facility], associated with dyspesia, located upper abdomen, severity modera te. Patient reports she has taken Plavix for only a couple days. Patient den ies any chest pain, SOB, palpitations or edema. Cardiology consulted for CAD with GI bleed. History - Adult longitudinal Additional medical history: cad s/p PCI, anemia, hx of ulcers Additional surgical history: Hysterectomy Breast biopsy Cholecystectomy Knee Sinus surgery Additional family history: Denies Alcohol use: Denies EtOH use Drug use: Denies recreational drugs Smoking status: Smoking status for patients 13 years old or old er: Former Smoker Allergies: Coded Allergies: Penicillins (Severe, INJECTION SITE SWELLING ) Corcoran And Derivatives (Intermediate, VOMITING 1 ) Quinolones (Intermediate, RASH, FACIAL SWELLING 05/07/21) clarithromycin (From BIAXIN) (Intermediate, RASH , SORE TONGUE 05/07/21) clotrimazole (Intermediate, UTI, RASH 05/07/21) fludrocortisone (From FLORIN EF) (Intermediate, SEVERE RASH, SWELLING OF EYES ) fluticasone furoate (From BR EO ELLIPTA) (Intermediate, HARD TO BREATH 05/07/21) rofecoxib (From VIOXX) (Intermediate, EYE AND CRISTINO DY SWELLING 05/07/21) sulfapyridine (Intermediate, EYE LID SWELLING ) vilanterol (From BREO ELLIPTA) (Intermediate, KHOURY RD TO BREATH 05/07/21) doxycycline (From PERIOSTAT) (Mild, ABDOMINAL PA IN 05/07/21) meperidine (From DEMEROL) (Mild, VOMITING ) pregabalin (From LYRICA) (Mild, WATERY EYES 04/17 09/06) iodine (UNKNOWN 05/07/21) Uncoded Allergies: PREICID (Intermediate, ABD PAIN, LIGHT HEADEDNES S, NAUSEA 05/07/21) RALAFEN (Mild, ABDOMINAL PAIN 05/07/21) Review of Systems Respiratory: Reports: SOB. Cardiovascular: Denies: chest pain, edema, orthopnea. All systems rev neg: except as marked Objective General VS/I O: Vital Signs: Date Time Temp Pulse Resp B/P B/P Pulse O2 O2 F low FiO2 Mean Ox Delivery Rate 05/08 191 36.5 73 17 137/77 97.3 94 Room air 05/08 1750 Room air 21 05/08 1514 36.7 68 15 124/64 84.1 95 Room air 05/08 1009 36.5 66 16 129/76 93.9 96 Room air 05/08 0709 36.7 74 14 152/80 103.9 97 Room air 05/08 0302 36.4 79 14 139/65 89.5 98 Nasal cannula 05/08 0028 36.7 74 14 130/76 93.6 95 Room air 05/07 2307 73 17 126/99 108 97 Room air 24 hour I O ending at 0700: 05/08 0700 05/07 1900 Intake Total Output Total Balance Patient 70.7 kg Weight Weight Bed scale Measurement Method PATIENT WEIGHT: Weight (lb): Weight (oz): Weight (kg): 70.700 Medications: Active Meds + DC'd Last 24 Hrs Atorvastatin Calcium (LIPITOR) 40 MG DAILY@2100 PO Pantoprazole Sodium (PROTONIX) 80 MG Q10H IV (DC ) Sodium Chloride (SODIUM CHLORIDE 0.9%) 100 ML Aspirin (ASPIRIN) 81 MG DAILY PO Clopidogrel Bisulfate (Plavix) 75 MG DAILY PO Spironolactone (ALDACTONE) 50 MG DAILY PO Acetaminophen (TYLENOL) 650 MG Q4H PRN PRN PO Acetaminophen/Codeine Phosphate (TYLENOL W CODEI NE NO.3) 1 TAB Q6H PRN PRN PO Al Hydrox/Mg Hydrox/Simethicone (MYLANTA) 30 ML Q4H PRN PRN PO Docusate Sodium (COLACE) 100 MG BID PRN PRN PO Hydralazine HCl (APRESOLINE) 10 MG Q6H PRN PRN I V Ondansetron HCl (ZOFRAN) 4 MG Q4H PRN PRN IV Pantoprazole Sodium (PROTONIX) 80 MG .Q10H IV (C KD) Sodium Chloride (SODIUM CHLORIDE 0.9%) 100 ML Sodium Chloride (SODIUM CHLORIDE 0.9%) 1,000 ML .[id number] IV Dextrose/Sodium Chloride (Dextrose 5% / 0.9% NaC l) 1,000 ML X1ED STA IV (DC) Sodium Chloride (SODIUM CHLORIDE) 10 ML ASDIR NE N IV Pantoprazole Sodium (PROTONIX) 80 MG X1ED STA IV (DC) Sodium Chloride (SODIUM CHLORIDE 0.9%) 100 ML Sodium Chloride (SODIUM CHLORIDE) 0 ASDIR PRN IV (DC) Physical Exam General appearance: alert, awake, oriented, no a cute distress, pleasant Head/Eyes: atraumatic, EOMI, normocephalic Neck: full range of motion, non-tender, no JVD Cardiovascular: CV assessment: regular rate and rhythm, BP puls es = bilaterally, normal heart sounds Respiratory: clear to auscultation, no distress Abdomen: soft, non-tender, normal bowel sounds Upper extremity: UE assessment: normal capillary refill, normal temperature Lower extremity: LE assessment: normal capillary refill, normal temperature Musculoskeletal: full range of motion, straight leg raise 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: alert, oriented X 3, CN II-XII intact Skin: dry, intact, normal color Psychiatry: normal affect, normal mood Results Findings/Data: Laboratory Tests 05/08 05/07 0600 2141 Chemistry Sodium (134 - 147 mEq/L) 138 Potassium (3.4 - 5.0 mEq/L) 3.7 Chloride (100 - 108 mEq/L) 105 Carbon Dioxide (21 - 33 mEq/l) 25 Anion Gap (0 - 20) 11 BUN (7 - 18 mg/dL) 10 Creatinine (0.6 - 1.3 mg/dL) 0.8 Glomerular Filtr Rate (70 - 80) 69.9 L Glucose (70 - 110 mg/dL) 97 Lactic Acid (0.4 - 1.9 mmol/L) 0.6 Calcium (8.0 - 10.5 mg/dL) 9.0 Laboratory Tests 05/08 0010 Coagulation Plt P2Y12 React Units (182 - 335 PRU) 171 L Laboratory Tests 05/08 05/08 05/08 0600 0600 0010 Hematology WBC (4.5 - 11.0 x10 3/uL) 9.0 RBC (3.54 - 5.02 x10 6/uL) 3.70 Hgb (11.0 - 15.0 g/dL) TNP 12.0 11.5 Hct (33.0 - 45.0 %) TNP 35.8 33.3 MCV (81.0 - 99.0 fL) 96.8 MCH (27.0 - 33.0 pg) 32.4 MCHC (33.0 - 37.0 g/dL) 33.5 RDW (11.5 - 14.5 %) 13.0 Plt Count (150 - 400 x10 3/uL) 130 L MPV (7.0 - 9.0 fL) 10.7 H Neut % (Auto) (56.0 - 77.0 %) 70.2 Lymph % (Auto) (14.0 - 32.0 %) 17.9 [place] % (Auto) (4.8 - 9.0 %) 8.4 Eos % (Auto) (0.3 - 3.7 %) 2.8 Baso % (Auto) (0.0 - 2.0 %) 0.3 Neut # (Auto) (2.0 - 7.6 x10 3/uL) 6.29 Lymph # (Auto) (1.0 - 3.8 x10 3/uL) 1.61 [place] # (Auto) (0.1 - 0.8 x10 3/uL) 0.75 Eos # (Auto) (0.0 - 0.2 x10 3/uL) 0.25 H Baso # (Auto) (0.0 - 0.2 x10 3/uL) 0.03 Abs Immat Gran (auto) (0.00 - 0.03 x10 3/uL) 0. 04 H Add Manual Diff NO Immature Gran % (0.0 - 2.0 %) 0.4 Nucleated RBC % (0 - 0 %) 0.0 Nucleated RBCs # (Man) (0.0 - 0.1 x10 3/uL) 0. 00 Laboratory Tests 05/08 1845 Serology SARS-CoV-2 Ag (Rapid) (Negative) Negative Radiology Data: Recent Impressions: CAT SCAN - CT ABD PELVIS W/O CONT 05/08 1537 Report Impression - Status: SIGNED Entered: 05/08/2021 1707 IMPRESSION: 1. No acute CT abnormalities of the abdomen or p radha are detected. SL:131 Impression By: Nikki - Devin Freedman M.D. Diagnosis, Assessment Plan Free Text DxA P Notes Free Text DxA P Notes: Patient is 75 year old woman with recent PCI (05/05/21), on aspirin/plavix, with prior history of GI ulcers. She reports had an EGD/Colonoscopy a few months ago. Cardiology consulted for CAD with GI bleed. CAD - EKG: ordered - 05/05/21 [facility]: atherectomy of dbx-mz-giswst RCA, PCI to proximal, osq-ny-eoqyvx RCA - cont ASA 81mg PO daily - cont Plavix 75mg PO daily - cont statin daily - patient must remain on javid l antiplatelet therapy, given recent stent 05/05/20 GI Bleed - HGB stable - GI following - CT Abd: No acute CT abnormalities of the abdom en or pelvis are detected. Will transfer to Patient case and [facility], , who agrees with plan of care. Mayco Montes De Oca 07/15/21 1210: Diagnosis, Assessment Plan Free Text DxA P Notes Free Text DxA P Notes: Patient seen and examined. Labs and imaging revi ewed. I agree with the assessment and plan as documented by chyna CHIEF CONTROLLER. Patient is 75 year old woman with recent PCI (05/05/21), on aspirin/plavix, with prior history of GI ulcers. She reports had an EGD/Colonoscopy a few months ago. Cardiology consulted for CAD with GI bleed. CAD - EKG: ordered - 05/05/21 [facility]: atherectomy of oeo-hw-qbxzdn RCA, PCI to proximal, hye-kd-bakhjk RCA - cont ASA 81mg PO daily - cont Plavix 75mg PO daily - cont statin daily - patient must remain on javid l antiplatelet therapy, given recent stent 05/05/20 at 1312 at 1218 RPT #:[id number] END OF REPORT 2021-05-08 16:06:00-00:00 [facility] Hospitalist Progress Note REPORT#:[id number] REPORT STATUS: Signed DATE:05/08/21 TIME: 1606 PATIENT: MARLA CAMPOS UNIT #: [id number] ROOM/BED: [place] [address] : 45 AGE: 75 SEX: F ATTEND: Leroy Bishop DO ADM AUTHOR: Rj Evans DO * ALL edits or amendments must be made on the [employer]/computer document * Subjective Comments: Patient seen and examined, h usband at bedside. Protonix drip running. Denies any new complaints. No overnight events per RN. Plan for EGD with gastroenterology Objective General VS/I O: Vital Signs: Date Time Temp Pulse Resp B/P B/P Pulse O2 O2 F low FiO2 Mean Ox Delivery Rate 05/08 1514 98.1 68 15 124/64 84.1 95 Room air 05/08 1009 97.7 66 16 129/76 93.9 96 Room air 05/08 0709 98.1 74 14 152/80 103.9 97 Room air 05/08 0302 97.5 79 14 139/65 89.5 98 Nasal cannula 05/08 0028 98.1 74 14 130/76 93.6 95 Room air 05/07 2307 73 17 126/99 108 97 Room air 05/07 1951 98.0 75 18 168/72 104 96 Room air 24 hour I O ending at 0700: 05/08 0700 05/07 1900 Intake Total Output Total Balance Patient 70.7 kg Weight Weight Bed scale Measurement Method PATIENT WEIGHT: Weight (lb): Weight (oz): Weight (kg): 70.700 Medications: Active Meds + DC'd Last 24 Hrs Atorvastatin Calcium (LIPITOR) 40 MG DAILY@2100 PO Aspirin (ASPIRIN) 81 MG DAILY PO Clopidogrel Bisulfate (Plavix) 75 MG DAILY PO Spironolactone (ALDACTONE) 50 MG DAILY PO Acetaminophen (TYLENOL) 650 MG Q4H PRN PRN PO Acetaminophen/Codeine Phosphate (TYLENOL W CODEI NE NO.3) 1 TAB Q6H PRN PRN PO Al Hydrox/Mg Hydrox/Simethicone (MYLANTA) 30 ML Q4H PRN PRN PO Docusate Sodium (COLACE) 100 MG BID PRN PRN PO Hydralazine HCl (APRESOLINE) 10 MG Q6H PRN PRN I V Ondansetron HCl (ZOFRAN) 4 MG Q4H PRN PRN IV Pantoprazole Sodium (PROTONIX) 80 MG .Q10H IV (C KD) Sodium Chloride (SODIUM CHLORIDE 0.9%) 100 ML Sodium Chloride (SODIUM CHLORIDE 0.9%) 1,000 ML .[id number] IV Dextrose/Sodium Chloride (Dextrose 5% / 0.9% NaC l) 1,000 ML X1ED STA IV (DC) Sodium Chloride (SODIUM CHLORIDE) 10 ML ASDIR NE N IV Pantoprazole Sodium (PROTONIX) 80 MG X1ED STA IV (DC) Pantoprazole Sodium (PROTONIX) 80 MG X1ED STA IV (DC) Sodium Chloride (SODIUM CHLORIDE 0.9%) 100 ML Sodium Chloride (SODIUM CHLORIDE) 0 ASDIR PRN IV Sodium Chloride (SODIUM CHLORIDE 0.9%) 1,000 ML X1ED STA IV (DC) Free Text Obj Notes Free Text Obj Notes: General appearance: alert, awake, oriented Head/Eyes: atraumatic, normocephalic ENT: moist mucosal membranes, normal pharynx Neck: non-tender, supple/no meningismus, no JVD Cardiovascular: normal capillary refill, normal heart sounds, regular rate rhythm Respiratory: aerating well, clear to auscultatio n, symmetric expansion Abdomen: non-tender, normal bowel sounds, soft, no distention Extremities: no clubbing, no cyanosis, no edema 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: alert, oriented X 3, CNII-XII intact Skin: dry, intact Psychiatry: normal affect, normal judgment/insig ht Diagnosis, Assessment Plan Problem List/A P: 1. Upper GI bleed Likely due to gastric ulcer in the setting of a spirin and Plavix Start on Protonix drip GI seen, plan for EGD, requesting cardiology cl earance/evaluation to see if patient can be on single antiplatelet therapy in stead of dual antiplatelet therapy 2. CAD (coronary artery disease) Patient just had stents ike madisyn on 05/05/2021, will need to continue aspirin and Plavix at this time Continue Lipitor 40 mg at bedtime Patient had the stents placed in [place] We will have on-call cardiology evaluat e for viability of single antiplatelet platelet therapy Consultants: gastroenterology Free Text DxA P Notes Free text DxA P notes: SCDs for DVT prophylaxis Clear liquid diet Patient does not have a living will or power of assistant city attorney Quality: Gen Med Crit Care VTE Prophylaxis VTE prophylaxis initiated: yes Current Medications Current medication review: I attest that the foregoing medication list in t he medical record is true, accurate, and complete to the best of my knowled ge. Advanced Care Plan 65 or Older Discussed with: patient Discussion included: living will, power of attor gamal, code status Electronically Signed by Rj Evans DO on 04/17 10/04 at 1613 RPT #:[id number] END OF REPORT 2021-05-08 11:13:00-00:00 [facility] ([facility]) GE Consultation Note REPORT#:[id number] REPORT STATUS: Signed DATE:05/08/21 TIME: 1113 PATIENT: MARLA CAMPOS UNIT #: [id number] ROOM/BED: 6601-1 : 45 AGE: 75 SEX: F ATTEND: Leroy Bishop DO ADM AUTHOR: Eric Hall MD * ALL edits or amendments must be made on the el [employer]/computer document * History of Present Illness Free Text HPI Notes Free Text HPI Notes: 75 year old woman with recent PCI, on aspirin/pl avix, with prior history of "ulcers". She reports had an EGD/Colonoscopy a f ew months ago, then PCI a few days ago. She reports dark s tools, which led her to come to hospital, associated with dyspesia, located upper abdomen, severity m oderate. History - Adult longitudinal Additional medical history: cad s/p PCI, anemia, hx of ulcers Additional surgical history: Hysterectomy Breast biopsy Cholecystectomy Knee Sinus surgery Additional family history: Denies Alcohol use: Denies EtOH use Drug use: Denies recreational drugs Smoking status: Smoking status for patients 13 years old or old er: Former Smoker Allergies: Coded Allergies: Penicillins (Severe, INJECTION SITE SWELLING ) Corcoran And Derivatives (Intermediate, VOMITING 1 ) Quinolones (Intermediate, RASH, FACIAL SWELLING 05/07/21) clarithromycin (From BIAXIN) (Intermediate, RASH , SORE TONGUE 05/07/21) clotrimazole (Intermediate, UTI, RASH 05/07/21) fludrocortisone (From FLORIN EF) (Intermediate, SEVERE RASH, SWELLING OF EYES ) fluticasone furoate (From BR EO ELLIPTA) (Intermediate, HARD TO BREATH 05/07/21) rofecoxib (From VIOXX) (Intermediate, EYE AND CRISTINO DY SWELLING 05/07/21) sulfapyridine (Intermediate, EYE LID SWELLING ) vilanterol (From BREO ELLIPTA) (Intermediate, KHOURY RD TO BREATH 05/07/21) doxycycline (From PERIOSTAT) (Mild, ABDOMINAL PA IN 05/07/21) meperidine (From DEMEROL) (Mild, VOMITING ) pregabalin (From LYRICA) (Mild, WATERY EYES 04/17 09/06) iodine (UNKNOWN 05/07/21) Uncoded Allergies: PREICID (Intermediate, ABD PAIN, LIGHT HEADEDNES S, NAUSEA 05/07/21) RALAFEN (Mild, ABDOMINAL PAIN 05/07/21) Review of Systems Additional notes: 10 point ros neg except hpi Objective Physical Exam VS/I O: Last Documented: Result Date Time Pulse Ox 96 05/08 1009 B/P 129/76 05/08 1009 B/P Mean 93.9 05/08 1009 O2 Delivery Room air 05/08 1009 Temp 36.5 05/08 1009 Pulse 66 05/08 1009 Resp 16 05/08 1009 24 hour I O ending at 0700: 05/08 0700 05/07 1900 Intake Total Output Total Balance Patient 70.7 kg Weight Weight Bed scale Measurement Method PATIENT WEIGHT: Weight (lb): Weight (oz): Weight (kg): 70.700 Medications: Active Meds + DC'd Last 24 Hrs Atorvastatin Calcium (LIPITOR) 40 MG DAILY@2100 PO Aspirin (ASPIRIN) 81 MG DAILY PO Clopidogrel Bisulfate (Plavix) 75 MG DAILY PO Spironolactone (ALDACTONE) 50 MG DAILY PO Acetaminophen (TYLENOL) 650 MG Q4H PRN PRN PO Acetaminophen/Codeine Phosphate (TYLENOL W CODEI NE NO.3) 1 TAB Q6H PRN PRN PO Al Hydrox/Mg Hydrox/Simethicone (MYLANTA) 30 ML Q4H PRN PRN PO Docusate Sodium (COLACE) 100 MG BID PRN PRN PO Hydralazine HCl (APRESOLINE) 10 MG Q6H PRN PRN I V Ondansetron HCl (ZOFRAN) 4 MG Q4H PRN PRN IV Pantoprazole Sodium (PROTONIX) 80 MG .Q10H IV (C KD) Sodium Chloride (SODIUM CHLORIDE 0.9%) 100 ML Sodium Chloride (SODIUM CHLORIDE 0.9%) 1,000 ML .[id number] IV Dextrose/Sodium Chloride (Dextrose 5% / 0.9% NaC l) 1,000 ML X1ED STA IV (DC) Sodium Chloride (SODIUM CHLORIDE) 10 ML ASDIR NE N IV Pantoprazole Sodium (PROTONIX) 80 MG X1ED STA IV (DC) Pantoprazole Sodium (PROTONIX) 80 MG X1ED STA IV (DC) Sodium Chloride (SODIUM CHLORIDE 0.9%) 100 ML Sodium Chloride (SODIUM CHLORIDE) 0 ASDIR PRN IV Sodium Chloride (SODIUM CHLORIDE 0.9%) 1,000 ML X1ED STA IV (DC) General appearance: alert, awake HEENT: abnl conjunctiva/sclera, dry mucosal memb ranes Neck: decreased range of motion Cardiovascular: normal capillary refill, regular rate rhythm Respiratory: aerating well, symmetric expansion Abdomen: non-tender Extremities: decreased range of motion Musculoskeletal: decreased ROM 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: alert, oriented X 3 Skin: abnormal color, abnormal temperature Psychiatry: normal affect, normal judgment/insig ht Results Findings/Data: Laboratory Tests 05/08/21599: Hgb TNP, Hct TNP 05/08/21599: [Embedded Image Not Available] 05/08/219: [Embedded Image Not Available] 05/07/212022: [Embedded Image Not Available] Laboratory Tests 05/08 Chemistry Sodium (134 - 147 mEq/L) 138 140 Potassium (3.4 - 5.0 mEq/L) 3.7 4.2 Chloride (100 - 108 mEq/L) 105 105 Carbon Dioxide (21 - 33 mEq/l) 25 28 Anion Gap (0 - 20) 11 11 BUN (7 - 18 mg/dL) 10 15 Creatinine (0.6 - 1.3 mg/dL) 0.8 0.9 Glomerular Filtr Rate (70 - 80) 69.9 L 61.0 L Glucose (70 - 110 mg/dL) 97 102 Lactic Acid (0.4 - 1.9 mmol/L) 0.6 Calcium (8.0 - 10.5 mg/dL) 9.0 9.5 Total Bilirubin (0.0 - 1.0 mg/dL) 0.50 AST (15 - 37 IUnit/L) 26 ALT (30 - 65 IUnit/L) 16 L Total Alk Phosphatase (20 - 125 IUnit/L) 76 Total Protein (6.4 - 8.2 g/dL) 6.8 Albumin (3.4 - 5.0 g/dL) 4.00 Laboratory Tests 05/08 Coagulation INR (0.8 - 1.2) 1.1 PT Patient/Control Mix (9.3 - 12.9 SECONDS) 12. 0 Plt P2Y12 React Units (182 - 335 PRU) 171 L Laboratory Tests 05/08 Hematology WBC (4.5 - 11.0 x10 3/uL) 9.0 11.5 H RBC (3.54 - 5.02 x10 6/uL) 3.70 3.78 Hgb (11.0 - 15.0 g/dL) TNP 12.0 11.5 12.3 Hct (33.0 - 45.0 %) TNP 35.8 33.3 35.7 MCV (81.0 - 99.0 fL) 96.8 94.4 MCH (27.0 - 33.0 pg) 32.4 32.5 MCHC (33.0 - 37.0 g/dL) 33.5 34.5 RDW (11.5 - 14.5 %) 13.0 13.0 Plt Count (150 - 400 x10 3/uL) 130 L 135 L MPV (7.0 - 9.0 fL) 10.7 H 10.5 H Neut % (Auto) (56.0 - 77.0 %) 70.2 Lymph % (Auto) (14.0 - 32.0 %) 17.9 [place] % (Auto) (4.8 - 9.0 %) 8.4 Eos % (Auto) (0.3 - 3.7 %) 2.8 Baso % (Auto) (0.0 - 2.0 %) 0.3 Neut # (Auto) (2.0 - 7.6 x10 3/uL) 6.29 Lymph # (Auto) (1.0 - 3.8 x10 3/uL) 1.61 [place] # (Auto) (0.1 - 0.8 x10 3/uL) 0.75 Eos # (Auto) (0.0 - 0.2 x10 3/uL) 0.25 H Baso # (Auto) (0.0 - 0.2 x10 3/uL) 0.03 Abs Immat Gran (auto) (0.00 - 0.03 x10 3/uL) 0. 04 H Add Manual Diff NO Immature Gran % (0.0 - 2.0 %) 0.4 Nucleated RBC % (0 - 0 %) 0.0 Nucleated RBCs # (Man) (0.0 - 0.1 x10 3/uL) 0.0 0 Diagnosis, Assessment Plan Free Text DxA P Notes Free Text DxA P Notes: change in bowel habits dual antiplatelet therapy recent pci cad hx of "ulcers" recent egd/colonoscopy - monitor h/h, transfuse as needed - cardiology eval to assess feasibility of singl e antiplatelet therapy rather than dual antiplatelet therapy in view of gi ble eding - ppi therapy - clear liquid diet - egd tomorrow to assess degree of PUD Electronically Signed by Eric Hall MD on at 1417 RPT #:[id number] END OF REPORT 2021-05-07 22:29:00-00:00 [facility] ([facility]) EMERGENCY PROVIDER REPORT REPORT#:[id number] REPORT STATUS: Signed DATE:05/07/21 TIME: 2228 PATIENT: MARLA CAMPOS UNIT #: [id number] ROOM/BED: 6601-1 AGE: 75 SEX: F PCP PHYS: No Primary or Family Ph ysician SERVICE AUTHOR: David Chong * ALL edits or amendments must be made on the [employer]/computer document * HPI-GI Bleed/Rectal Prob General Initial Greet Date/Time 05/07/211946 PCP No PCP [employer] Presentation Chief Complaint Stool maroon, Stool tarry black Bleeding Severity Moderate Hx Obtained From Patient Onset Occurred Today Symptom Duration Since onset Progression since Onset Unchanged Free Text HPI Notes Free Text HPI Notes 75-year-old with history of coronary artery dise ase status post 3 stents recently at [place], history of stroke with no significant permanent deficits, presents with melena since ear lier today. Mild abdominal discomfort. No nausea vomiting. No fever chills. Mild genera lized weakness. Patient takes Plavix. Risk-GI Bleed/Rectal Prob Risk Stratification Bleeding Risk factors reviewed, Anticoagulants Review of Systems ROS Statements All systems rev neg except as marked. Focused Review of Systems Constitutional Reports: Weakness - generalized. Denies: Chills, Fatigue, Fever, Lethargy, Malaise, Recent wt loss. Ears/Nose/Throat Denies: Ear drainage R, Ear drainage L, Ear drainage bilat, Ear ringing R, Ear ringing L, Ear ringing bilat , Earache R, Earache L, Earache bilat, Hearing loss R, Hearing loss L, Hearing loss bilat, Mouth noreen n, Nasal congestion, Nose bleeding, Sinus problem, Sor e throat, Throat pain, Throat swelling, Tongue pain, Tongue swelling, Toothache, Voice change. Respiratory Denies: Cough, non-productive, Cough, productive , Dyspnea on exertion, Hemoptysis, Parox nocturnal dyspnea, Pleuritic p ain, Shortness of breath, Wheezing. Cardiovascular Denies: Chest pain, Dyspnea on exertion, Edema, Orthopnea, Palpitations, Parox nocturnal dyspnea, Syncope. GI Reports: Abdominal pain, Blo magda/tarry stool, Melena. Denies: Anorexia, Belching , Constipation, Diarrhea, Dysphagia, Hem atemesis, Hematochezia, Mucousy stool, Nausea, Rectal pain, Vomiting. Hematologic Reports: Bleeding. Denies: Adenopathy, Bruising, Petechiae. Neurologic Reports: Generalized weakness. Additional Review of Systems Female Denies: Dysuria, Flank pain, Hematuria, Incontin ence, Nocturia, Pelvic pain, , Urinary frequency, Urinary urgency, Ur ination decreased, Urination increased, Vaginal bleeding - abnl, Vaginal disc harge. Past Medical History - Adult Stated Complaint GI BLEED Allergies Coded Allergies: Penicillins (Severe, INJECTION SITE SWELLING ) Corcoran And Derivatives (Intermediate, VOMITING 1 ) Quinolones (Intermediate, RASH, FACIAL SWELLING 05/07/21) clarithromycin (From BIAXIN) (Intermediate, RASH , SORE TONGUE 05/07/21) clotrimazole (Intermediate, UTI, RASH 05/07/21) fludrocortisone (From FLORIN EF) (Intermediate, SEVERE RASH, SWELLING OF EYES ) fluticasone furoate (From BR EO ELLIPTA) (Intermediate, HARD TO BREATH 05/07/21) rofecoxib (From VIOXX) (Intermediate, EYE AND CRISTINO DY SWELLING 05/07/21) sulfapyridine (Intermediate, EYE LID SWELLING ) vilanterol (From BREO ELLIPTA) (Intermediate, KHOURY RD TO BREATH 05/07/21) doxycycline (From PERIOSTAT) (Mild, ABDOMINAL PA IN 05/07/21) meperidine (From DEMEROL) (Mild, VOMITING ) pregabalin (From LYRICA) (Mild, WATERY EYES 04/17 09/06) iodine (UNKNOWN 05/07/21) Uncoded Allergies: PREICID (Intermediate, ABD PAIN, LIGHT HEADEDNES S, NAUSEA 05/07/21) RALAFEN (Mild, ABDOMINAL PAIN 05/07/21) Home Medications Active Scripts CLOPIDOGREL (PLAVIX) 75 MG PO DAILY 90 Days #90 TABS Ref 3 Prov: 05/05/21 Reported Medications ATORVASTATIN (LIPITOR) 40 MG PO BEDTIME POTASSIUM CHLORIDE ER (MICRO-K) 2 CAP PO TID ESTROGENS,CONJ (PREMARIN 0.625 MG/GM VAGINAL) 0. 5 GM VAGINAL TWICE A WEEK PROMETHAZINE/DEXTROMETHORPHA N (PHENERGAN DM 6.25-15 MG/5ML) 5 ML PO Q6H PRN PRN COUGH ALBUTEROL (ALBUTEROL NEB SOLN 0.021%) 0.63 MG IN H RTQ6H PRN PRN SOB LEVOCETIRIZINE (XYZAL) 5 MG PO DAILY ASPIRIN EC (ECOTRIN) 81 MG PO DAILY [MAGNESIUM GLYCERINAT] UBIDECARENONE (CO Q-10) 100 MG PO BID DOCUSATE SODIUM (COLACE) 100 MG PO DAILY PRN CON STIPATION [PEARLS PROBIOTIC] [VITAMIN D3] [COSAMIN ASU JOINT ] [MOVE FREE JOINT ] [TUMERIC ] SPIRONOLACTONE (ALDACTONE) 50 MG PO DAILY METOLAZONE (ZAROXOLYN) 5 MG PO MONDAY,MONDAY Discontinued Reported Medications OMEPRAZOLE ER (PriLOSEC) 40 MG PO BID Past Medical History: Reports: Coronary artery disease. Smoking status: Smoking status for patients 13 years old or old er: Former Smoker Physical Exam Vital Signs Vital Signs First Documented: Result Date Time Pulse Ox 96 05/07 1951 B/P 168/72 05/07 1951 B/P Mean 104 05/07 1951 O2 Delivery Room air 05/07 1951 Temp 36.7 05/07 1951 Pulse 75 05/07 1951 Resp 18 05/07 1951 Last Documented: Result Date Time Pulse Ox 96 05/07 1951 B/P 168/72 05/07 1951 B/P Mean 104 05/07 1951 O2 Delivery Room air 05/07 1951 Temp 36.7 05/07 1951 Pulse 75 05/07 1951 Resp 18 05/07 1951 Review of Vital Signs Reviewed Free Text PE Notes Free Text PE Notes Alert and oriented x3, no apparent distress, min imal pallor, no diaphoresis, slightly dry mucous membranes, neck supple no JV D, lungs clear to station bilaterally without distress retractions, heart regular rate and rhythm without tachycardia, abdomen soft nontender deep palpati on, no focal neuro deficits. Cap refill is brisk. Interpretation Diagnostics Lab Results Interpretation Results Laboratory Tests 05/07/212022: [Embedded Image Not Available] Laboratory Tests: 05/07 Chemistry Sodium (134 - 147 mEq/L) 140 Potassium (3.4 - 5.0 mEq/L) 4.2 Chloride (100 - 108 mEq/L) 105 Carbon Dioxide (21 - 33 mEq/l) 28 Anion Gap (0 - 20) 11 BUN (7 - 18 mg/dL) 15 Creatinine (0.6 - 1.3 mg/dL) 0.9 Glomerular Filtr Rate (70 - 80) 61.0 L Glucose (70 - 110 mg/dL) 102 Lactic Acid (0.4 - 1.9 mmol/L) 0.6 Calcium (8.0 - 10.5 mg/dL) 9.5 Total Bilirubin (0.0 - 1.0 mg/dL) 0.50 AST (15 - 37 IUnit/L) 26 ALT (30 - 65 IUnit/L) 16 L Total Alk Phosphatase (20 - 125 IUnit/L) 76 Total Protein (6.4 - 8.2 g/dL) 6.8 Albumin (3.4 - 5.0 g/dL) 4.00 Coagulation INR (0.8 - 1.2) 1.1 PT Patient/Control Mix (9.3 - 12.9 SECONDS) 12. 0 Hematology WBC (4.5 - 11.0 x10 3/uL) 11.5 H RBC (3.54 - 5.02 x10 6/uL) 3.78 Hgb (11.0 - 15.0 g/dL) 12.3 Hct (33.0 - 45.0 %) 35.7 MCV (81.0 - 99.0 fL) 94.4 MCH (27.0 - 33.0 pg) 32.5 MCHC (33.0 - 37.0 g/dL) 34.5 RDW (11.5 - 14.5 %) 13.0 Plt Count (150 - 400 x10 3/uL) 135 L MPV (7.0 - 9.0 fL) 10.5 H Lab Imaging Statement Laboratory radiographic studies reviewed and con sidered in the medical decision-making. Re-Evaluation MDM Re-Evaluation/Progress #1 Text/Dict Note Patient clinically and hemod ynamically stable. Last bowel movement with melenic stool was before noon today. No recurrent bleedi ng here in the ER. Time of Re-Eval 2229 Re-Eval Status Improved ED Course Medication(s) Ordered Medication(s) Ordered: Electrolytic, Caloric, And Cody Sig/Nellie Start time Last Medication Dose Route Stop Time Status Admin Sodium Chloride 10 ML ASDIR PRN 05/07 2030 AC IV 06/06 2029 Sodium Chloride 0 ASDIR PRN 05/07 2000 DC IV 05/08 1858 Consultation Consultation Referral/Consult Name Juan Recinos MD [employer] Called Gastroenterology Requested Call Time 2233 Requested Call Date 05/07/21 Patient Discharge Departure Vital Signs/Condition Vital Signs First Documented: Result Date Time Pulse Ox 96 05/07 1951 B/P 168/72 05/07 1951 B/P Mean 104 05/07 1951 O2 Delivery Room air 05/07 1951 Temp 36.7 05/07 1951 Pulse 75 05/07 1951 Resp 18 05/07 1951 Last Documented: Result Date Time Pulse Ox 96 05/07 1951 B/P 168/72 05/07 1951 B/P Mean 104 05/07 1951 O2 Delivery Room air 05/07 1951 Temp 36.7 05/07 1951 Pulse 75 05[birth year]07 1951 Resp 18 05/07 1951 All vital signs available at the time of this en try have been reviewed. Condition Stable, Guarded Clinical Impression Clinical Impression Primary Impression: Upper GI bleed Disposition Decision Admit Admit Physician Name Arun Bishop DO Admit Physician Hospitalist Request Time 2230 Request Date 05/07/21 )( Admission Accepts Yes )( Accepted Time 2230 )( Accepted Date 05/07/21 Call Information will see patient Discharge/Care Plan Counseled Regarding Diagnosi s, Lab results, Imaging studies, Need for admission (Auto) Prescriptions Current Visit Scripts PANTOPRAZOLE DR (PROTONIX) 40 MG PO Q12H PANTOPRAZOLE DR (PROTONIX) 40 MG PO Q12H #60 TA B Critical Care Time Spent (minutes): 33 Services Performed Patient management by [place] spent at bedside, Reviewing test results, Reviewing imaging, Discussing eden ent care, Documentation in record Separately billable procedures excluded from [place]. Patient was critically ill due to: upper gi bleed My treatment and management were: IV fluid resuscitation, GI consult CC Note 1 Total critical care time [33 ] minutes. Total critical care time documented does not include time spent on separately billed proc edures or the services of residents, students, nurses or physician assista nts. I personally saw and examined the patient. I have reviewed all diagno stic interpretations and treatment plans as written. I was present for the longoria portions of any procedures performed and the inclusive time noted in any critical care statement. Critical care time includes patient m anagement by me, time spent at the patients bedside, time to review lab and imaging results, discussing patient care, documentation in the medical record, and time spent with the f amily or caregiver. at 0212 RPT #:[id number] END OF REPORT 2021-05-07 22:28:00-00:00 [facility]L [facility] Hospitalist History Physical REPORT#:[id number] REPORT STATUS: Signed DATE:05/07/21 TIME: 2227 PATIENT: MARLA CAMPOS UNIT #: [id number] ROOM/BED: [place] [id number] : 45 AGE: 75 SEX: F ATTEND: Leroy Bishop DO ADM AUTHOR: Arun Bishop DO * ALL edits or amendments must be made on the [employer]/computer document * History of Present Illness HPI Chief complaint: Black stools PCP: PCP: Dr Hopkins GI: Dr Lion HPI: 75-year-old female with past medical history sig nificant for coronary artery disease status post 3 stents placed on 05/05/2021, stroke in 2019, right carotid occlusion, and gastric ulcer and hemorrhoids diagnosed on EGD and colonoscopy on 02/25/2021 presents to emerge ncy department with complaint of black stools since this morning. Patient reports she was on the tuyet let this morning when she noticed black tarry stools. She admits to nausea . Denies abdominal pain, vomiting, hematochezia, fevers, chills, diarrhea . Patient is currently taking aspirin and Plavix since her stents on 1. History Past Medical Surgical Hx Patient History: 1. CVA (cerebral vascular accident) 2. CAD (coronary artery disease) 3. Gastric ulcer Additional surgical history: Hysterectomy Breast biopsy Cholecystectomy Knee Sinus surgery Family History Additional family history: Denies Social History Alcohol use: Denies EtOH use Drug use: Denies recreational drugs Smoking status: Smoking status for patients 13 years old or old er: Former Smoker Medication/Allergy-Vaccine Hx Medications: Home Medications: ASPIRIN EC (ECOTRIN) 81 MG PO DAILY [MAGNESIUM GLYCERINAT] UBIDECARENONE (CO Q-10) 100 MG PO BID DOCUSATE SODIUM (COLACE) 100 MG PO DAILY PRN CON STIPATION [PEARLS PROBIOTIC] [VITAMIN D3] [COSAMIN ASU JOINT ] [MOVE FREE JOINT ] [TUMERIC ] predniSONE 50 MG PO DAILY diphenhydrAMINE (BENADRYL) 25 MG PO Q6HR ATORVASTATIN (LIPITOR) 40 MG PO DAILY SPIRONOLACTONE (ALDACTONE) 50 MG PO DAILY METOLAZONE (ZAROXOLYN) 5 MG PO MONDAY,MONDAY POTASSIUM CHLORIDE ER (MICRO-K) 10 MEQ PO DAILY OMEPRAZOLE ER (PriLOSEC) 40 MG PO DAILY FAMOTIDINE (PEPCID) 20 MG PO BEDTIME CLOPIDOGREL (PLAVIX) 75 MG PO DAILY Allergies: Coded Allergies: Penicillins (Severe, INJECTION SITE SWELLING ) sulfapyridine (Intermediate, EYE LID SWELLING ) iodine (UNKNOWN 05/03/21) Review of Systems Free Text ROS Notes Free Text ROS Notes: 14 point review of systems o btained, pertinent positives and negatives noted in HPI Physical Exam VS/I O: Vital Signs Date Temp Pulse Resp B/P B/P Mean Pulse Ox FiO2 05/07 98.0 73-75 17-18 126-168/72-99 104-108 96 -97 Last Documented: Result Date Time Pulse Ox 97 05/07 2307 B/P 126/99 05/07 2307 B/P Mean 108 05/07 2307 O2 Delivery Room air 05/07 2307 Pulse 73 05/07 2307 Resp 17 05/07 2307 Temp 98.0 05/07 1951 Patient Weight and BMI Weight (kg): 70.700 BMI: 25.9 Results Findings/Data: Laboratory Tests: 05/07 Chemistry Sodium (134 - 147 mEq/L) 140 Potassium (3.4 - 5.0 mEq/L) 4.2 Chloride (100 - 108 mEq/L) 105 Carbon Dioxide (21 - 33 mEq/l) 28 Anion Gap (0 - 20) 11 BUN (7 - 18 mg/dL) 15 Creatinine (0.6 - 1.3 mg/dL) 0.9 Glomerular Filtr Rate (70 - 80) 61.0 L Glucose (70 - 110 mg/dL) 102 Lactic Acid (0.4 - 1.9 mmol/L) 0.6 Calcium (8.0 - 10.5 mg/dL) 9.5 Total Bilirubin (0.0 - 1.0 mg/dL) 0.50 AST (15 - 37 IUnit/L) 26 ALT (30 - 65 IUnit/L) 16 L Total Alk Phosphatase (20 - 125 IUnit/L) 76 Total Protein (6.4 - 8.2 g/dL) 6.8 Albumin (3.4 - 5.0 g/dL) 4.00 Coagulation INR (0.8 - 1.2) 1.1 PT Patient/Control Mix (9.3 - 12.9 SECONDS) 12. 0 Hematology WBC (4.5 - 11.0 x10 3/uL) 11.5 H RBC (3.54 - 5.02 x10 6/uL) 3.78 Hgb (11.0 - 15.0 g/dL) 12.3 Hct (33.0 - 45.0 %) 35.7 MCV (81.0 - 99.0 fL) 94.4 MCH (27.0 - 33.0 pg) 32.5 MCHC (33.0 - 37.0 g/dL) 34.5 RDW (11.5 - 14.5 %) 13.0 Plt Count (150 - 400 x10 3/uL) 135 L MPV (7.0 - 9.0 fL) 10.5 H Laboratory Tests 05/07/212022: [Embedded Image Not Available] Results: labs reviewed, vital signs stable Free Text PE Notes Free Text PE Notes: General appearance: alert, awake, oriented Head/Eyes: atraumatic, normocephalic ENT: moist mucosal membranes, normal pharynx Neck: non-tender, supple/no meningismus, no JVD Cardiovascular: normal capillary refill, normal heart sounds, regular rate rhythm Respiratory: aerating well, clear to auscultatio n, symmetric expansion Abdomen: non-tender, normal bowel sounds, soft, no distention Extremities: no clubbing, no cyanosis, no edema 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: alert, oriented X 3, CNII-XII intact Skin: dry, intact Psychiatry: normal affect, normal judgment/insig ht Diagnosis, Assessment Plan Problem List/A P: 1. Upper GI bleed Likely due to gastric ulcer in the setting of a spirin and Plavix Start on Protonix drip GI consulted 2. CAD (coronary artery disease) Patient just had stents ike madisyn on 05/05/2021, will need to continue aspirin and Plavix at this time Continue Lipitor 40 mg at bedtime Free Text A P: SCDs for DVT prophylaxis Cardiac diet Patient does not have a living will or power of assistant city attorney Consultants: gastroenterology Plan discussed with: patient Resuscitation discussion: Discussed with: patient Code status: full code Quality: Gen Med Crit Care VTE Prophylaxis VTE prophylaxis initiated: yes Current Medications Current medication review: I attest that the foregoing medication list in t he medical record is true, accurate, and complete to the best of my knowled ge. Advanced Care Plan 65 or Older Discussed with: patient Discussion included: living will, power of attor gamal, code status at 2334 RPT #:[id number] END OF REPORT 2021-05-05 18:32:00-00:00 [id number] [place] [address] PATIENT NAME: MARLA CAMPOS ADMIT DATE: 05/05/21 ACCOUNT NO: [id number] ROOM NO: AGE: 75 REPORT TYPE: eELECTROCARDIOGRAM REPORT SEX: F ADMITTING PHYSICIAN: ATTENDING PHYSICIAN:Devon Whatley MD Order: [id number] Test Reason : S/P PCI Test Date/Time Stamp: MonMay 05 2021 18:32:15 Blood Pressure : / mmHG Vent. Rate : 067 BPM Atrial Rate : 067 BPM P-R Int : 150 ms QRS Dur : 086 ms QT Int : 392 ms P-R-T Axes : 064 007 088 degree s QTc Int : 414 ms Normal sinus rhythm Normal ECG When compared with ECG of 05-MAY-2021 15:24, No significant change was found Confirmed by ARIC MORLEY MD ([id number]) on 021 6:38:52 PM Referred By: Devon Whatley Confirmed by:ARIC MORRIS MD at 1838 PATIENT NAME: MARLA CAMPOS 550 2021-05-05 15:47:00-00:00 [id number] [place] [address] PATIENT NAME: MARLA CAMPOS ADMIT DATE: 05/05/21 ACCOUNT NO: [id number] ROOM NO: AGE: 75 REPORT TYPE: CARDIAC CATHETERIZATION REPORT SEX: F ADMITTING PHYSICIAN: ATTENDING PHYSICIAN:Devon Whatley MD PROCEDURE DATE: 05/05/2021 PROCEDURE PERFORMED: 1. CSI atherectomy of severe diffuse right coron james artery disease, proximal, mid, and distal. 2. Percutaneous coronary intervention of severe right coronary artery disease using 3.5 x 28 mm plus 3.5 x 20 mm plus 3.5 x 60 mm Synergy drug-eluting stent. ACCESS: Right radial artery, 6-Cymro closed wit h TR band. COMPLICATIONS: None. BLEEDING: Less than 10 mL. TOTAL SEDATION TIME: 75 minutes. DESCRIPTION OF PROCEDURE: After risks, benefits, and alternatives were explained, the patient agreed to proceed and sig cynthia informed consent. The patient was brought into the cardiac catheteriza tion laboratory, prepped and draped in usual sterile fashion. Then, access, r ight radial artery using pediatric micropuncture kit, placed a 6-Cymro s lender sheath. Then, I took a 6-Cymro JR4 guide into the aortic root and engaged the RCA and sent ____ over the wire to the distal RCA and exchanged that fo r a Viper wire and did CSI atherectomy of heavily calcified, severe mid-to- distal RCA disease and postdilated using 3.5 x 20 mm NC balloon and then placed a 3.5 x 48 plus 3.5 x 20 mm Synergy drug-eluting stent with excellent results; however, there was still significant ostial disease, so I p laced another 3.5 x 60 mm, inflated to very high pressure, gave a size of 3.9 mm with e xcellent results. The patient had a short period of no reflow after the athere ctomy, improved quickly after stenting. The patient is hemodynamically stable. Final angiogram was satisfactory. Then, we remov ed the guide and the sheath and placed TR band with good hemostasis. CONCLUSION: 1. Successful atherectomy of [id number]-qb-[id number] RCA. 2. Successful PCI of proximal, lef-os-ljuqmx RCA as above. PLAN: Aspirin, Plavix, high-dose statin and follow up with me in the office in 1 week. Dictated By: Devon Whatley MD WT: CATH:ROBERTO/MICHAEL/MOIRA PATIENT NAME: MARLA CAMPOS 550 Conf#: [id number]/DID#: [id number] Authenticated by Devon Whatley MD On 05/07/2021 09:08:00 AM Electronically Signed by Devon Whatley MD on at 0908 PATIENT NAME: MARLA CAMPOS 550 2021-05-05 15:24:00-00:00 [id number] [place] [address] PATIENT NAME: MARLA CAMPOS ADMIT DATE: 05/05/21 ACCOUNT NO: [id number] ROOM NO: AGE: 75 REPORT TYPE: eELECTROCARDIOGRAM REPORT SEX: F ADMITTING PHYSICIAN: ATTENDING PHYSICIAN:Devon Whatley MD Order: [id number] Test Reason : POST PCI Test Date/Time Stamp: MonMay 05 2021 15:24:15 Blood Pressure : / mmHG Vent. Rate : 070 BPM Atrial Rate : 070 BPM P-R Int : 146 ms QRS Dur : 084 ms QT Int : 398 ms P-R-T Axes : 068 006 090 degree s QTc Int : 429 ms Normal sinus rhythm Low voltage QRS Borderline ECG When compared with ECG of 03-MAY-2021 11:37, No significant change was found Confirmed by ARIC MORLEY MD ([id number]) on 4:45:42 PM Referred By: Devon Whatley Confirmed by:ARIC MORRIS MD at 1645 PATIENT NAME: MARLA CAMPOS 550 2021-05-03 11:37:00-00:00 [id number] [place] [address] PATIENT NAME: MARLA CAMPOS ADMIT DATE: ACCOUNT NO: [id number] ROOM NO: AGE: 75 REPORT TYPE: eELECTROCARDIOGRAM REPORT SEX: F ADMITTING PHYSICIAN: ATTENDING PHYSICIAN:Devon Whatley MD Order: [id number] Test Reason : PREOP Test Date/Time Stamp: MonMay 03 2021 11:37:20 Blood Pressure : / mmHG Vent. Rate : 058 BPM Atrial Rate : 058 BPM P-R Int : 146 ms QRS Dur : 086 ms QT Int : 416 ms P-R-T Axes : 066 039 068 degree s QTc Int : 408 ms Sinus bradycardia Otherwise normal ECG No previous ECGs available Confirmed by ARIC MORLEY MD ([id number]) on 4:13:14 PM Referred By: No Physician Confirmed by:ARIC GREENE MD at 1613 PATIENT NAME: MARLA CAMPOS 550
--- NOTE | 2022-12-24 12:19 | RAD REPORT ---
EXAM DESCRIPTION: CT - Pelvis Wo Cont - 12/24/2022 12:06 pm CLINICAL HISTORY: fall 9 days ago, right pelvic/hip pain COMPARISON: Knee Right 3 View dated 12/24/2022; Femur Right dated 12/24/2022 FINDINGS: No pelvic or hip fractures identified. Pessary noted. Aortic atherosclerosis. Hysterectomy . Visualized bowel is unremarkable. Normal appendix. Mild acetabular degenerative changes. IMPRESSION: No pelvic or hip fracture identified.
--- NOTE | 2022-12-24 12:29 | RAD REPORT ---
EXAM DESCRIPTION: RAD - Knee Right 3 View - 12/24/2022 12:19 pm CLINICAL HISTORY: PAIN COMPARISON: No comparisons FINDINGS/IMPRESSION: No acute fracture. No malalignment. Chondrocalcinosis in the mediolateral aravind rtments. Patellofemoral compartment spurring. Arterial stent.
--- NOTE | 2022-12-24 12:29 | RAD REPORT ---
EXAM DESCRIPTION: RAD - Femur Right - 12/24/2022 12:19 pm CLINICAL HISTORY: PAIN COMPARISON: No comparisons FINDINGS/IMPRESSION: No acute fracture. No malalignment. Mild right acetabular degenerative changes.
[2022-12-24 13:11] LABS: Absolute Lymphocytes (CBC) 1.2 K/uL (0.7-4.9); Hematocrit 41.1 % (36.0-45.0); Lymphocytes % 14.8 % (15.3-44.8); MCV 92.5 fL (80-100); RBC Red Blood Cell Count 4.44 M/uL (3.86-4.86)
[2022-12-24 13:17] LABS: Protime INR 0.96
--- NOTE | 2022-12-24 14:21 | EDPHYS ---
Physician Documentation [facility] Name: Marla Campos Age: 76 yrs Sex: Female : 1945 Arrival Date: 12/24/2022 Time: 11:04 Bed 19 Private MD: ED Physician [place] HPI: 12/24 11:59 This 76 yrs old Female presents to ER via Wheelchair with complaints of Hip Pain, Knee rn Pain. 11:59 The patient or guardian reports pain. The patient is able to self ambulate. The patient rn is able to bear their full body weight. The complaints affect the right hip and right knee. Onset: The symptoms/episode began/occurred 1 week(s) ago. Modifying factors: The symptoms are alleviated by nothing, the symptoms are aggravated by any movement. Associated signs and symptoms: Pertinent positives: None. Pertinent negatives: abdominal pain, chest pain, fever, incontinence, vomiting, weakness. Severity of symptoms: At their worst the symptoms were mild, in the emergency department the symptoms are unchanged. The patient has not experienced similar symptoms in the past. The patient has not recently seen a physician. Reports fall 9 days ago, bruising to right hip/pelvis, has been able to perform PT and told might have bursitis, came here for further eval. Recently started on seizure meds. Takes anticoagulants. No new fall. Able to move legs in seated position but hurts more to walk. . Historical: - Allergies: 11:22 Biaxin; bp 11:22 Breo Ellipta; bp 11:22 CITRIC ACID; bp 11:22 Clotrimazole-Betamethasone; bp 11:22 Demerol; bp 11:22 Doxycycline; bp 11:22 Florinef Acetate; bp 11:22 GABAPENTIN; bp 11:22 Iodinated Contrast Media - IV Dye; bp 11:22 Lyrica; bp 11:22 PENICILLINS; bp 11:22 Periostat; bp 11:22 Prevacid; bp 11:22 QUINOLONES; bp 11:22 relafen; bp 11:22 Sulfa (Sulfonamide Antibiotics); bp 11:22 Vioxx; bp - Home Meds: 11:22 Aldactone 25 mg Oral tablet 1 tab daily [Active]; levocetirizine 5 mg oral tablet daily bp [Active]; atorvastatin 40 mg oral tablet every day at bedtime [Active]; pantoprazole 40 mg oral granules delayed release for susp packet 2 times per day [Active]; clopidogrel 75 mg oral tablet daily [Active]; memantine 10 mg oral tablet 2 times per day [Active]; Premarin 0.625 mg/gram Vagl cream 2 times per day [Active]; promethazine-DM 6.25-15 mg/5 mL Oral syrup every 6 hours [Active]; albuterol sulfate 2.5 mg /3 mL (0.083 %) Nebulizer Solution for Nebulization every 6 hours [Active]; amlodipine 5 mg tablet daily [Active]; levetiracetam 250 mg oral tablet 2 times per day [Active]; - PMHx: 11:22 Asthma; CVA; fluid retention; GERD; Hypercholesterolemia; Hypertensive disorder; Left bp sided weakness-mild (previous CVA); - PSHx: 11: Carotid endarterectomy; Coronary Angioplasty; Heart Stents; right leg stent; bp - Immunization history:: Adult Immunizations up to date. - Social history:: Smoking status: Patient denies any tobacco usage or history of. - Family history:: not pertinent. - Hospitalizations: : No recent hospitalization is reported. ROS: 11:59 Constitutional: Negative for fever, chills, and weight loss, Cardiovascular: Negative rn for chest pain, palpitations, and edema, Respiratory: Negative for shortness of breath, cough, wheezing, and pleuritic chest pain, Abdomen/GI: Negative for abdominal pain, nausea, vomiting, diarrhea, and constipation, Back: Negative for injury and pain, MS/Extremity: + right hip and knee pain Skin: Negative for injury, rash, and discoloration, Neuro: Negative for headache, weakness, numbness, tingling, and seizure. Exam: 11:59 Constitutional: This is a well developed, well nourished patient who is awake, alert, rn and in no acute distress. Head/Face: Normocephalic, atraumatic. Cardiovascular: Regular rate and rhythm. No pulse deficits. Respiratory: No increased work of breathing, no retractions or nasal flaring. Abdomen/GI: soft, non-tender MS/ Extremity: Pulses equal, no cyanosis. Neurovascular intact. Mild tenderness lateral to right hip and posterior to right hip, able to flex/extend without pain at right hip and knee. Neuro: Awake and alert, GCS 15 Vital Signs: 11:21 BP 147 / 56; Pulse 71; Resp 16; Temp 97.3; Pulse Ox 100% ; bp MDM: 11:24 Patient medically screened. rn 14:18 Differential diagnosis: hip fracture, intertrochanteric fracture, femoral neck rn fracture, femoral shaft fracture, bursitis, arthritis, strain. Data reviewed: vital signs, nurses notes, radiologic studies, CT scan, plain films, and as a result, I will discharge patient. Counseling: I had a detailed discussion with the patient and/or guardian regarding: the historical points, exam findings, and any diagnostic results supporting the discharge/admit diagnosis, radiology results, the need for outpatient follow up, to return to the emergency department if symptoms worsen or persist or if there are any questions or concerns that arise at home. Special discussion: I discussed with the patient/guardian in detail that at this point there is no indication for admission to the hospital. It is understood, however, that if the symptoms persist or worsen the patient needs to return immediately for re-evaluation. 12/24 11:30 Order name: CBC with Diff; Complete Time: 14: rn 12/24 11:30 Order name: Basic Metabolic Panel; Complete Time: 14: rn 12/24 11:30 Order name: Protime (+inr); Complete Time: 14: rn 12/24 11:30 Order name: Ptt, Activated; Complete Time: 14: rn 12/24 11:30 Order name: XRAY Femur RIGHT; Complete Time: 12:50 rn 12/24 11:30 Order name: CT Pelvis wo Cont; Complete Time: 12:50 rn 12/24 11:30 Order name: XRAY Knee RIGHT 3 view; Complete Time: 12:50 rn 12/24 11:30 Order name: IV Start; Complete Time: 13:04 rn Administered Medications: No medications were administered Disposition Summary: 12/24/22 14:21 Discharge Ordered Location: Home rn Problem: new rn Symptoms: have improved rn Condition: Stable rn Diagnosis - Other bursitis of hip, right hip rn - Pain in right knee rn Followup: rn - With: Private Physician - When: As needed - Reason: Recheck today's complaints, Re-evaluation by your physician Discharge Instructions: - Discharge Summary Sheet rn - Arthritis rn - Bursitis rn - Hip Bursitis rn Forms: - Medication Reconciliation Form rn - Thank You Letter rn - Antibiotic rn telephone triage - Prescription Opioid Use rn Prescriptions: - Tramadol 50 mg Oral Tablet - take 1 tablet by ORAL route every 8 hours as needed; 12 tablet; Refills: 0, rn Product Selection Permitted - Cyclobenzaprine 5 mg Oral Tablet - take 1 tablet by ORAL route 3 times per day As needed; 15 tablet; Refills: 0, rn Product Selection Permitted Signatures: Dispatcher [employer] Willard Krishnan MD MD rn Peltier, Brian, RN RN bp
--- NOTE | 2022-12-24 14:21 | ER ---
Nurse's Notes [facility] Name: Marla Campos Age: 76 yrs Sex: Female : 1945 Arrival Date: 12/24/2022 Time: 11:04 Bed 19 Private MD: Diagnosis: Other bursitis of hip, right hip;Pain in right knee Presentation: 12/24 11:21 Chief complaint: Patient states: RIGHT HIP AND KNEE PAIN 2/2 PHYSICAL THERAPY. bp Coronavirus screen: At this time, the client does not indicate any symptoms associated with coronavirus-19. Ebola Screen: No symptoms or risks identified at this time. Initial Sepsis Screen: Does the patient meet any 2 criteria? No. Patient's initial sepsis screen is negative. Does the patient have a suspected source of infection? No. Patient's initial sepsis screen is negative. Risk Assessment: Do you want to hurt yourself or someone else? Patient reports no desire to harm self or others. Onset of symptoms is unknown. 11:21 Method Of Arrival: Wheelchair bp 11:21 Acuity: DANNY 3 bp Triage Assessment: 11:26 General: Appears in no apparent distress. Behavior is calm, cooperative, appropriate bp for age. Pain: Complains of pain in right leg. EENT: No deficits noted. Neuro: No deficits noted. Cardiovascular: No deficits noted. Respiratory: No deficits noted. GI: No signs and/or symptoms were reported involving the gastrointestinal system. : No signs and/or symptoms were reported regarding the genitourinary system. Derm: No deficits noted. Musculoskeletal: Reports pain in right leg. Historical: - Allergies: 11:22 Biaxin; bp 11:22 Breo Ellipta; bp 11:22 CITRIC ACID; bp 11:22 Clotrimazole-Betamethasone; bp 11:22 Demerol; bp 11:22 Doxycycline; bp 11:22 Florinef Acetate; bp 11:22 GABAPENTIN; bp 11:22 Iodinated Contrast Media - IV Dye; bp 11:22 Lyrica; bp 11:22 PENICILLINS; bp 11:22 Periostat; bp 11:22 Prevacid; bp 11:22 QUINOLONES; bp 11:22 relafen; bp 11:22 Sulfa (Sulfonamide Antibiotics); bp 11:22 Vioxx; bp - Home Meds: 11:22 Aldactone 25 mg Oral tablet 1 tab daily [Active]; levocetirizine 5 mg oral tablet daily bp [Active]; atorvastatin 40 mg oral tablet every day at bedtime [Active]; pantoprazole 40 mg oral granules delayed release for susp packet 2 times per day [Active]; clopidogrel 75 mg oral tablet daily [Active]; memantine 10 mg oral tablet 2 times per day [Active]; Premarin 0.625 mg/gram Vagl cream 2 times per day [Active]; promethazine-DM 6.25-15 mg/5 mL Oral syrup every 6 hours [Active]; albuterol sulfate 2.5 mg /3 mL (0.083 %) Nebulizer Solution for Nebulization every 6 hours [Active]; amlodipine 5 mg tablet daily [Active]; levetiracetam 250 mg oral tablet 2 times per day [Active]; - PMHx: 11:22 Asthma; CVA; fluid retention; GERD; Hypercholesterolemia; Hypertensive disorder; Left bp sided weakness-mild (previous CVA); - PSHx: 11: Carotid endarterectomy; Coronary Angioplasty; Heart Stents; right leg stent; bp - Immunization history:: Adult Immunizations up to date. - Social history:: Smoking status: Patient denies any tobacco usage or history of. - Family history:: not pertinent. - Hospitalizations: : No recent hospitalization is reported. Screenin:00 [facility] ED Fall Risk Assessment (Adult) Score/Fall Risk Level 0 - 2 = Low Risk. Abuse eh3 screen: Denies threats or abuse. Denies injuries from another. Nutritional screening: No deficits noted. Tuberculosis screening: No symptoms or risk factors identified. Assessment: 14:00 General: Appears in no apparent distress. uncomfortable, Behavior is calm, cooperative, eh3 appropriate for age. Pain: Complains of pain in right hip and right knee. Neuro: Level of Consciousness is awake, alert, obeys commands, Oriented to person, place, time, situation. Cardiovascular: Capillary refill < 3 seconds Patient's skin is warm and dry. Respiratory: Airway is patent Respiratory effort is even, unlabored, Respiratory pattern is regular, symmetrical. GI: Abdomen is round non-distended. : No signs and/or symptoms were reported regarding the genitourinary system. EENT: No signs and/or symptoms were reported regarding the EENT system. Derm: Skin is pink, warm \T\ dry. Musculoskeletal: Reports pain in right leg. Vital Signs: 11:21 BP 147 / 56; Pulse 71; Resp 16; Temp 97.3; Pulse Ox 100% ; bp ED Course: 11:06 Patient arrived in ED. ts1 11:22 Triage completed. bp 11:22 Arm band placed on. bp 11:24 Willard Beach MD is Attending Physician. rn 12:07 CT Pelvis wo Cont In Process Unspecified. EDMS 12:21 XRAY Femur RIGHT In Process Unspecified. EDMS 12:21 XRAY Knee RIGHT 3 view In Process Unspecified. EDMS 13:04 Protime (+inr) Sent. mb9 13:04 Ptt, Activated Sent. mb9 13:04 Basic Metabolic Panel Sent. mb9 13:04 CBC with Diff Sent. mb9 13:04 Inserted saline lock: 22 gauge in left antecubital area, using aseptic technique. mb9 14:00 Patient has correct armband on for positive identification. Bed in low position. Call eh3 light in reach. Side rails up X2. 14:09 Modesta Portillo, RN is Primary Nurse. eh3 14:30 No provider procedures requiring assistance completed. IV discontinued, intact, eh3 bleeding controlled, No redness/swelling at site. Pressure dressing applied. Administered Medications: No medications were administered Medication: 14:30 VIS not applicable for this client. eh3 Outcome: 14:21 Discharge ordered by . rn 14:30 Discharged to home via wheelchair, with family. eh3 14:30 Condition: stable 14:30 Instructed on discharge instructions, follow up and referral plans. medication usage, Demonstrated understanding of instructions, follow-up care, medications, Prescriptions given X 2. 14:35 Patient left the ED. eh3 Signatures: Dispatcher [employer] EDMS Willard Beach MD MD rn Peltier, Brian RN Modesta Lynch RN RN 3 Zeinab Briggs RN RN mb9 Kriss Casillas PAS PAS ts1
[2022-12-24 15:34] VITALS: BP 147/56; TEMP 97.3; O2SAT 100
== END 2022-12-24 14:35 | disposition home or self-care (01) ==
LOC: ER 11:04
DX: M71.551 Other bursitis, not elsewhere classified, right hip (principal); M25.561 Pain in right knee; I10 Essential (primary) hypertension; Z79.01 Long term (current) use of anticoagulants; Z95.818 Presence of other cardiac implants and grafts
CPT/HCPCS: 36415; 72192; 80048; 85025; 85610; 85730; 99284

== ENCOUNTER 2023-06-01 10:47 | Emergency (ER) | payer OTHER ==
--- OUTSIDE RECORDS SUMMARY | 2023-06-01 10:57 | XMS REPORT | Continuity of Care Document ---
:1945 Author Organization [facility] t Address [address] [facility] [address] [place] [address] Care Team Providers Name Role Phone Garth Hopkins MD Primary Care Physician Merritt Deras Attending Clinician GC_GCALINA_Leonard_S Attending Clinician Unavailable Mayte Valle Attending Clinician Unavailable Hallie Charles Attending Clinician Unavailable Robert Gold Attending Clinician Unavailable Rj Evans Attending Clinician Unavailable Devon Moses Attending Clinician Unavailable Arun Bishop Attending Clinician Unavailable Garth Hopkins MD Attending Clinician CIRSTIAN BONILLA MADHURA Attending Clinician Unavailable AMBROCIO FERREIRA Attending Clinician Unavailable KALYAN_GCALINA_Leonard_S Admitting Clinician Unavailable Mayte Valle Admitting Clinician Unavailable Hallie Charles Admitting Clinician Unavailable Robert Gold Admitting Clinician Unavailable Rj Evans Admitting Clinician Unavailable Garth Hopkins V Admitting Clinician Unavailable Devon Moses Admitting Clinician Unavailable Arun Bishop Admitting Clinician Unavailable Physician, No Primary or Family Admitting Clinician Unavaila true BONILLA, CRISTIAN, CRISTIAN Admitting Clinician Unavailable RAJAN BOOKER Admitting Clinician Unavailable Payers Payer Name Policy Type Policy Number Effective Date Expiration Date Yudi KESSLER (MEDICARE [id number] 2022 REPLACEMENT PPO) 00:00:00 AETM AETM [id number] Problems Condition Condition Condition Status Onset Resolution Last Treating Co mments Source Name Details Category Date Date Treatment Clinician Date Amnesia Amnesia Problem Active 2023-05-26 Me moria (finding) (finding) 15:49:34 l Active Andrew Problem 05/26/2023 [facility] 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:49:34 l accident accident Manny n (disorder) (disorder) Active Problem 05/26/2023 [facility] 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:49:34 l erosis erosis Alexander (disorder) (disorder) Active Problem 05/26/2023 [facility] Dizziness Dizziness Problem Active 2023-05-26 Memoria (finding) (finding) 15:49:34 l Active Alexander Problem 05/26/2023 [facility] Gastrointe Problem Active 2023-05-26 M emoria stinal Gastrointe 15:49:34 l hemorrhage stinal Manny n (disorder) hemorrhage (disorder) Active Problem 05/26/2023 [facility] Hyperlipid Hyperlipi Problem Active 2023-05-26 Memoria emia demia 15:49:34 l (disorder) (disorder) He rmann Active Problem 05/26/2023 [facility] Myocardial Myocardia Problem Active 2023-05-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 l 15:49:34 l (disorder) infarction He rmann (disorder) Active Problem 05/26/2023 [facility] 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 (disorder) (disorder) Active Problem 05/26/2023 [facility] Syncope Syncope Problem Active 2023-05-26 Me moria (disorder) (disorder) 15:49:34 l Active Alexander Problem 05/26/2023 [facility] 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 (disorder) (disorder) Active Problem 05/26/2023 [facility] Dysarthria Dysarthri Problem Active 2023-05-26 Memoria (finding) a 15:49:34 l (finding) Andrew Active Problem 05/26/2023 [facility] Recurrent Recurrent Problem Active 2023-05-26 Memoria falls falls 15:49:34 l (finding) (finding) Herm tito Active Problem 05/26/2023 [facility] Allergies, Adverse Reactions, Alerts Allergy Allergy Status Severity Reaction(s) Onset Inactive Treating Comm ents Source Name Type Date Date Clinician clotrima DA Active MO UTI, RASH 2022- [facility] zole - [place] 00:[facility]: d [facility] clarithr DA Active AR RASH, SORE [facility] omycin TONGUE 07-21 [place] 00:00: d [facility] nabumeto DA Active AR ABDOMINAL [facility] ne PAIN 07-21 [place] 00:00: d [facility] gabapent DA Active MO DIZZINESS,NA 2022-0 HC A in USEA,CONSTIP 07-21 [place] ATION 00:00: d [facility] lansopra DA Active SV NAUSEA, 2022- [facility] zole CHILLS 07-21 [place] 00:00: d [facility] meperidi DA Active SV VOMITING 2022-0 [facility] ne 07-21 [place] 00:00: d [facility] fludroco DA Active SV SEVERE RASH, 2022-0 HC A rtisone SWELLING OF 07-21 [place] EYES 00:00: d [facility] rofecoxi DA Active MO EYE AND BODY HC A b SWELLING 07-21 [place] 00:00: d [facility] pregabal DA Active MO WATERY EYES 2022- [facility] in 07-21 [place] 00:00: d [facility] fluticas DA Active MO HARD TO 2022-0 [facility] one BREATH 1-05 [place] furoate 00:00: d 00 [facility] vilanter DA Active MO HARD TO 2022-0 [facility] ol BREATH -05 [place] 00:00: d 00 [facility] Iodinate DA Active U UNKNOWN 2022-0 [facility] d 1-05 [place] Contrast 00:00: d Media 00 [facility] Penicill DA Active SV INJECTION [facility] ins SITE 1-05 [place] SWELLING 00:00: d 00 [facility] Sulfa DA Active MO RASH, EYE 2022-0 [facility] (Sulfona SWELLING 07-21 [place] mide 00:00: d Antibiot 00 [facility]) [place] Quinolon DA Active MO RASH, FACIAL 2022-0 HC A es SWELLING 07-21 [place] 00:00: d 00 [facility] Pisinemo FA Active SV VOMITING 2022- [facility] And 07-21 [place] Derivati 00:00: d ves 00 [facility] doxycycl DA Active AR ABDOMINAL [facility] ine PAIN 07-21 [place] 00:00: d 00 [facility] sulfapyr DA Active MO EYE LID [facility] idine SWELLING 07-21 [place] 00:00: d 00 [facility] Iodinate DA Active U UNKNOWN 2021- [facility] d 17 Clear Contrast 00:00: Wing Media 00 [facility] Sulfa DA Active MO RASH, EYE 2021-0 [facility] (Sulfona SWELLING -17 Clear mide 00:00: Wing Antibiot 00 [facility] Pisinemo FA Active SV VOMITING [facility] And 08-02 Clear Derivati 00:00: Wing ves [facility] doxycycl DA Active AR ABDOMINAL [facility] ine PAIN -17 Clear 00:00: Wing [facility] clotrima DA Active MO UTI, RASH 2021-0 [facility] zole -17 Clear 00:00: Wing [facility] clarithr DA Active AR RASH, SORE 0 [facility] omycin TONGUE -17 Clear 00:00: Wing [facility] nabumeto DA Active AR ABDOMINAL [facility] ne PAIN 17 Clear 00:00: Wing [facility] meperidi DA Active SV VOMITING 2021-0 [facility] ne -17 Clear 00:00: Wing [facility] fludroco DA Active SV SEVERE RASH, HC A rtisone SWELLING OF -17 [place]ian r EYES 00:00: [facility] pregabal DA Active MO WATERY EYES [facility] in 08-02 Clear 00:00: Wing [facility] gabapent DA Active MO DIZZINESS,NA HC A in USEA,CONSTIP 08-02 [place] r ATION 00:00: Wing [facility] lansopra DA Active SV NAUSEA, H[facility] zole CHILLS - Clear 00:00: [facility] Penicill DA Active SV INJECTION 2020-07 [facility] ins SITE 0-22 Clear SWELLING 00:00: [facility] Quinolon DA Active MO RASH, FACIAL 2020-07 HC A es SWELLING 0-22 Clear 00:00: Wing [facility] Pisinemo FA Active MO VOMITING 2020-07 [facility] And 0-22 Clear Derivati 00:00: Wing [facility] iodine DA Active U UNKNOWN 2020-07 [facility] 0-22 Clear 00:00: [facility] doxycycl DA Active AR ABDOMINAL 2020-07 [facility] ine PAIN 0-22 Clear 00:00: [facility] sulfapyr DA Active MO EYE LID 2020-07 [facility] idine SWELLING 0-22 Clear 00:00: [facility] clotrima DA Active MO UTI, RASH 2020-07 [facility] zole 0-22 Clear 00:00: Wing [facility] clarithr DA Active MO RASH, SORE 2020-07 [facility] omycin TONGUE 0-22 Clear 00:00: [facility] meperidi DA Active AR VOMITING 2020-07 [facility] ne 0-22 Clear 00:00: [facility] fludroco DA Active MO SEVERE RASH, 2020-07 HC A rtisone SWELLING OF 0-22 [place] r EYES 00:00: Wing [facility] rofecoxi DA Active MO EYE AND BODY 2020-07 HC A b SWELLING 0-22 Clear 00:00: Wing [facility] pregabal DA Active AR WATERY EYES 2020-07 [facility] in 0-22 Clear 00:00: Wing [facility] fluticas DA Active MO HARD TO 2020-07 [facility] one BREATH 0-22 Clear furoate 00:00: Wing 00 [facility] vilanter DA Active MO HARD TO 2020-07 H[facility] ol BREATH 0-22 Clear 00:00: Wing [facility] Penicill DA Active SV 2020-07 [facility] ins 0-22 Clear 00:00: Wing 00 [facility] Quinolon DA Active MO 2020-07 [facility] es 0-22 Clear 00:00: Wing [facility] Pisinemo FA Active MO 2020-07 [facility] And 0-22 Clear Derivati 00:00: Wing ves 00 [facility] iodine DA Active U 2020-07 H[facility] 0-22 Clear 00:00: Wing [facility] doxycycl DA Active AR 2020-07 [facility] ine 0-22 Clear 00:00: Wing [facility] sulfapyr DA Active MO 2020-07 [facility] idine 0-22 Clear 00:00: Wing [facility] clotrima DA Active MO 2020-07 [facility] zole 0-22 Clear 00:00: Wing [facility] clarithr DA Active MO 2020-07 [facility] omycin 0-22 Clear 00:00: Wing 00 [facility] meperidi DA Active AR 2020-07 [facility] ne 0-22 Clear 00:00: Wing [facility] fludroco DA Active MO 2020-07 H[facility] rtisone 0-22 Clear 00:00: Wing 00 [facility] rofecoxi DA Active MO 2020-07 [facility] b 0-22 Clear 00:00: Wing 00 [facility] pregabal DA Active AR 2020-07 [facility] in 0-22 Clear 00:00: Wing 00 [facility] fluticas DA Active MO 2020-07 [facility] one 0-22 Clear furoate 00:00: Wing 00 [facility] vilanter DA Active MO 2020-07 [facility] ol 0-22 Clear 00:00: Wing 00 [facility] PREICID DA Active MO ABD PAIN, 2020-07 [facility] LIGHT 0-22 Clear HEADEDNESS, 00:00: Wing NAUSEA 00 [facility] RALAFEN DA Active AR ABDOMINAL 2020-07 [facility] PAIN 0-22 Clear 00:00: Wing 00 [facility] Penicill DA Active SV INJECTION 2020-07 [facility] ins SITE 0-18 Clear SWELLING 00:00: Wing [facility] iodine DA Active U UNKNOWN 2020-07 H[facility] 0-18 Clear 00:00: Wing [facility] sulfapyr DA Active MO EYE LID 2020-07 [facility] idine SWELLING 0-18 Clear 00:00: Wing [facility] Penicill DA Active SV 2020-07 [facility] ins 0-18 Clear 00:00: Wing [facility] iodine DA Active U 2020-07 H[facility] 0-18 Clear 00:00: Wing [facility] sulfapyr DA Active MO 2020-07 [facility] idine 0-18 Clear 00:00: Wing [facility] Iodine Propensi Active [facility] Iodide adverse 00:00: Medical Containi reaction 00 Center s Products Pregabal Propensi Active Other (See Watery [facility] to Comments) [facility] adverse 00:00: warm Medical reaction 00 feeling Center s stomach Penicill Propensi Active Arm and [facility] adverse 00:00: bruise Medical reaction 00 Center s Doxycycl Propensi Active Nausea Only Abdomina l [facility] ty to [facility] Hyclate adverse 00:00: Medical reaction 00 Center s Quinolon Propensi Active Swelling, [facility] es ty to Rash [facility] adverse 00:00: Medical reaction 00 Center s Sulfa Drug Active Swelling, [facility] (Sulfona Allergy Rash [facility] mide 00:00: Medical Antibiot 00 Center ics) Rofecoxi Propensi Active Swelling [facility] b ty to [facility] adverse 00:00: Medical reaction 00 Center s Clarithr Propensi Active Rash [facility] omycin ty to [facility] adverse 00:00: Medical reaction 00 Center s Fluticas Propensi Active Shortness Of [facility] one ty to Breath [facility] Furoate- adverse 00:00: Medical Vilanter reaction 00 Center ol s Pisinemo Propensi Active Nausea And [facility] ty to Vomiting [facility] Derivati adverse 00:00: Medical ves reaction 00 Center s Clotrima Propensi Active Rash 2018- uti [facility] zole ty to 9-25 [facility] adverse 00:00: Medical reaction 00 Center s Meperidi Propensi Active Nausea And 2018-[address] [facility] ty to Vomiting [facility] adverse 00:00: Medical reaction 00 [...] reaction 00 speech, Center s constipat ion FLUTICAS Allergy Active High Sob 2018- [facility] [...] 00 Center Fluticas Propensi Active Shortness Of 2019- [facility] one ty to Breath [facility] Furoate- adverse 00:00: Medical Vilanter reaction 00 Center ol s Pisinemo Propensi Active Nausea And 2018-[address] [facility] [facility] And ty to Vomiting 25 [...] DOXYCYCL Allergy Active Nausea [facility] INE -[facility] 00:00: Medical 00 Center GABAPENT Allergy Active Other [facility] 00:[facility]: Medical 00 Center IODINE Allergy Active [facility] AND [facility] IODIDE 00:00: Medical CONTAINI 00 Center NG PRODUCTS PREGABAL Allergy Active Other [facility] 9-[facility] 00:00: Medical 00 Center DOXYCYCL Allergy Active Nausea [facility] -[facility] HYCLATE 00:00: Medical 00 [place] penicill penicill Active Memori a in in l Andrew Sulfur Sulfur Active Memoria l Alexander iodine iodine Active Memoria l [facility] Social History Social Habit Start Date Stop Date Quantity Comments Source Sexual orientation [facility] Gender identity [facility] Alcohol Std Drinks Medica l Center History [facility] Alcohol Binge Medical Ila ter History [facility] Alcohol Comment Medical C enter Alcohol intake 2019-04-15 2019-04-[address] [facility] 00:00:00 00:00:00 non-drinker of Medical Ce nter alcohol (finding) Tobacco use and 2019-04-10 2019-04-[address] [facility] [facility] k[facility] exposure 00:00:00 00:00:00 tobacco non-user Medical Center History SDOH 2019-04-10 2019-04-[address] [facility] Alcohol Frequency 00:00:00 00:00:00 Medical Center Sex Assigned At [address] [facility] 00:00:00 00:00:00 Medical Center Smoking Status Start Date Stop Date Source Tobacco smoking consumption unknown [facility] Tobacco smoking status [facility] Medications Ordered Filled Start Stop Current Ordering Indication Dosage Frequency Signature Comments Components Source Medication Medication Date Date Medication? Clinician (SIG) Name Name memantine 2022-07 Yes = 1 tab, Aman omaira 10 mg oral 0-04 PO, BID, # l tablet 16:46: 180 tab, 1 Shari nn 00 Refill(s), Pharmacy: [facility], 162.56, cm, 04/14/23 13:49:00 CDT, Height, 74.091, kg, 04/14/23 13:49:00 CDT, Weight Vimpat 100 2022-0 Yes 100 mg = 1 M emoria mg oral 9-29 tab, PO, l tablet 19:14: BID, # 60 Manny n 00 tab, 3 Refill(s), Pharmacy: [facility], 162.56, cm, 04/14/23 13:49:00 CDT, Height, 74.091, kg, 04/14/23 13:49:00 CDT, Weight Vimpat 50 2022-0 Yes 50 mg = 1 Mem oria mg oral 7-13 tab, PO, l tablet 21:38: BID, # 60 Manny n 00 tab, 3 Refill(s), Pharmacy: [facility], 162.56, cm, 01/26/23 16:03:00 CDT, Height, 72.273, kg, 01/26/23 16:03:00 CDT, Weight Vimpat 50 2022-0 Yes 50 mg = 1 Mem oria mg oral 7-13 tab, PO, l tablet 21:38: BID, # 60 Manny n 00 tab, 3 Refill(s), Pharmacy: [facility], 162.56, cm, 01/26/23 16:03:00 CDT, Height, 72.273, kg, 01/26/23 16:03:00 CDT, Weight Vimpat 50 2022-0 Yes 50 mg = 1 Mem oria mg oral 6-12 tab, PO, l tablet 18:50: BID, # 60 Manny n 00 tab, 3 Refill(s), Pharmacy: [facility], 162.56, cm, 11/28/22 14:47:00 CDT, Height, 73.182, kg, 11/28/22 14:47:00 CDT, Weight Vimpat 50 3-0 Yes 50 mg = 1 Mem oria mg oral 6-12 tab, PO, l tablet 18:50: BID, # 60 Manny n 00 tab, 3 Refill(s), Pharmacy: [facility], 162.56, cm, 11/28/22 14:47:00 CDT, Height, 73.182, kg, 11/28/22 14:47:00 CDT, Weight Keppra 250 2022-0 Yes 250 mg = 1 M emoria mg oral 6-03 tab, PO, l tablet 00:37: BID, # 60 Manny n 00 tab, 3 Refill(s), Pharmacy: [facility] #[id number], 162.56, cm, 11/28/22 14:47:00 CDT, Height, 73.182, kg, 11/28/22 14:47:00 CDT, Weight Keppra 250 2022-0 Yes 250 mg = 1 M emoria mg oral 6-03 tab, PO, l tablet 00:37: BID, # 60 Manny n 00 tab, 3 Refill(s), Pharmacy: [facility] #[id number], 162.56, cm, 11/28/22 14:47:00 CDT, Height, 73.182, kg, 11/28/22 14:47:00 CDT, Weight Keppra 250 3-0 Yes 250 mg = 1 M emoria mg oral 6-03 tab, PO, l tablet 00:37: BID, # 60 Manny n 00 tab, 3 Refill(s), Pharmacy: [facility] #[id number], 162.56, cm, 11/28/22 14:47:00 CDT, Height, 73.182, kg, 11/28/22 14:47:00 CDT, Weight memantine 3-0 Yes = 1 tab, Aman omaira 10 mg oral 4-26 PO, BID, # l tablet 15:34: 180 tab, 1 Shari nn 00 Refill(s), Pharmacy: [facility], 162.56, cm, 08/25/22 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, Height, 71.591, kg, 08/25/22 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, Weight memantine 0 Yes = 1 tab, Aman omaira 10 mg oral 4-26 PO, BID, # l tablet 15:34: 180 tab, 1 Shari nn 00 Refill(s), Pharmacy: [facility], 162.56, cm, 08/25/22 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, Height, 71.591, kg, 08/25/22 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, Weight memantine 0 Yes = 1 tab, Aman omaira 10 mg oral 4-26 PO, BID, # l tablet 15:34: 180 tab, 1 Shari nn 00 Refill(s), Pharmacy: [facility], 162.56, cm, 08/25/22 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, Height, 71.591, kg, 08/25/22 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, Weight Namenda 10 0 Yes 10 mg = 1 Me moria mg oral 2-09 tab, PO, l tablet 18:05: BID, # 60 Manny n 00 tab, 4 Refill(s), Pharmacy: [facility], 162.56, cm, 08/25/22 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, Height, 71.591, kg, 08/25/22 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, Weight Namenda 10 0 Yes 10 mg = 1 Me moria mg oral 2-09 tab, PO, l tablet 18:05: BID, # 60 Manny n 00 tab, 4 Refill(s), Pharmacy: [facility], 162.56, cm, 08/25/22 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, Height, 71.591, kg, 08/25/22 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, Weight Namenda 10 0 Yes 10 mg = 1 Me moria mg oral 2-09 tab, PO, l tablet 18:05: BID, # 60 Manny n 00 tab, 4 Refill(s), Pharmacy: [facility], 162.56, cm, 08/25/22 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, Height, 71.591, kg, 08/25/22 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, Weight Namenda 10 0 Yes 10 mg = 1 Me moria mg oral 2-09 tab, PO, l tablet 18:05: BID, # 60 Manny n 00 tab, 4 Refill(s), Pharmacy: [facility], 162.56, cm, 08/25/22 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, Height, 71.591, kg, 08/25/22 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, Weight Namenda 10 0 Yes 10 mg = 1 Me moria mg oral 2-09 tab, PO, l tablet 18:05: BID, # 60 Manny n 00 tab, 4 Refill(s), Pharmacy: [facility], 162.56, cm, 08/25/22 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, Height, 71.591, kg, 08/25/22 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, Weight amLODIPine 2022-0 Yes PO, Daily, M emoria 2-09 5 mg l 17:54: daily, 0 Alexander 00 Refill(s) amLODIPine 2022-0 Yes PO, Daily, M emoria 2-09 5 mg l 17:54: daily, 0 Andrew 00 Refill(s) amLODIPine 2022-0 Yes PO, Daily, M emoria 2-09 5 mg l 17:54: daily, 0 Alexander 00 Refill(s) amLODIPine 2022-0 Yes PO, Daily, M emoria 2-09 5 mg l 17:54: daily, 0 Alexander 00 Refill(s) amLODIPine 2022-0 Yes PO, Daily, M emoria 2-09 5 mg l 17:54: daily, 0 Andrew 00 Refill(s) Namenda 5 2021-07 Yes 5 mg = 1 Aman omaira mg oral 1-18 tab, PO, l tablet 18:02: BID, # 60 Manny n 00 tab, 3 Refill(s), Pharmacy: [facility], 162.56, cm, 06/03/22 11:36:00 FURNACE ATTENDANT, Height, 69.545, kg, 06/03/22 11:36:00 FURNACE ATTENDANT, Weight Namenda 5 2021-07 Yes 5 mg = 1 Aman omaira mg oral 1-18 tab, PO, l tablet 18:02: BID, # 60 Manny n 00 tab, 3 Refill(s), Pharmacy: [facility], 162.56, cm, 06/03/22 11:36:00 FURNACE ATTENDANT, Height, 69.545, kg, 06/03/22 11:36:00 FURNACE ATTENDANT, Weight [facility] 2021-07 Yes 5 mg = 1 Aman omaira mg oral 1-18 tab, PO, l tablet 18:02: BID, # 60 Manny n 00 tab, 3 Refill(s), Pharmacy: [facility], 162.56, cm, 06/03/22 11:36:00 FURNACE ATTENDANT, Height, 69.545, kg, 06/03/22 11:36:00 FURNACE ATTENDANT, Weight [facility] 2021-07 Yes 5 mg = 1 Aman omaira mg oral 1-18 tab, PO, l tablet 18:02: BID, # 60 Manny n 00 tab, 3 Refill(s), Pharmacy: [facility], 162.56, cm, 06/03/22 11:36:00 FURNACE ATTENDANT, Height, 69.545, kg, 06/03/22 11:36:00 FURNACE ATTENDANT, Weight [facility] 2021-07 Yes 5 mg = 1 Aman omaira mg oral 1-18 tab, PO, l tablet 18:02: BID, # 60 Manny n 00 tab, 3 Refill(s), Pharmacy: [facility], 162.56, cm, 06/03/22 11:36:00 FURNACE ATTENDANT, Height, 69.545, kg, 06/03/22 11:36:00 FURNACE ATTENDANT, Weight [facility] 2021-07 Yes 5 mg = 1 Aman omaira mg oral 1-18 tab, PO, l tablet 18:02: BID, # 60 Manny n 00 tab, 3 Refill(s), Pharmacy: [facility], 162.56, cm, 06/03/22 11:36:00 FURNACE ATTENDANT, Height, 69.545, kg, 06/03/22 11:36:00 FURNACE ATTENDANT, Weight Namend 2021-07 Yes 5 mg = 1 Aman omaira mg oral 1-18 tab, PO, l tablet 18:02: BID, # 60 Manny n 00 tab, 3 Refill(s), Pharmacy: [facility], 162.56, cm, 06/03/22 11:36:00 FURNACE ATTENDANT, Height, 69.545, kg, 06/03/22 11:36:00 FURNACE ATTENDANT, Weight Namenda 2021-07 Yes 5 mg = 1 Aman omaira mg oral 1-18 tab, PO, l tablet 18:02: BID, # 60 Manny n 00 tab, 3 Refill(s), Pharmacy: [facility], 162.56, cm, 06/03/22 11:36:00 FURNACE ATTENDANT, Height, 69.545, kg, 06/03/22 11:36:00 FURNACE ATTENDANT, Weight Namenda 2021-07 Yes 5 mg = 1 Aman omaira mg oral 1-18 tab, PO, l tablet 18:02: BID, # 60 Manny n 00 tab, 3 Refill(s), Pharmacy: [facility], 162.56, cm, 06/03/22 11:36:00 FURNACE ATTENDANT, Height, 69.545, kg, 06/03/22 11:36:00 FURNACE ATTENDANT, Weight Namenda 2021-07 Yes 5 mg = 1 Aman omaira mg oral 1-18 tab, PO, l tablet 18:02: BID, # 60 Manny n 00 tab, 3 Refill(s), Pharmacy: [facility], 162.56, cm, 06/03/22 11:36:00 FURNACE ATTENDANT, Height, 69.545, kg, 06/03/22 11:36:00 FURNACE ATTENDANT, Weight Namenda 2021-07 Yes 5 mg = 1 Aman omaira mg oral 1-18 tab, PO, l tablet 18:02: BID, # 60 Manny n 00 tab, 3 Refill(s), Pharmacy: [facility], 162.56, cm, 06/03/22 11:36:00 FURNACE ATTENDANT, Height, 69.545, kg, 06/03/22 11:36:00 FURNACE ATTENDANT, Weight Namenda 2021-07 Yes 5 mg = 1 Aman omaira mg oral 1-18 tab, PO, l tablet 18:02: BID, # 60 Manny n 00 tab, 3 Refill(s), Pharmacy: [facility], 162.56, cm, 06/03/22 11:36:00 FURNACE ATTENDANT, Height, 69.545, kg, 06/03/22 11:36:00 FURNACE ATTENDANT, Weight famotidine 2021-07 Yes 20 mg = 1 Me moria 20 mg oral 1-18 tab, PO, l tablet 17:49: BID, 0 Andrew 00 Refill(s) Vitamin K2 2021-07 Yes 100 Memoria 1-18 microgram l 17:49: =, PO, Alexander 00 Daily, 0 Refill(s) Cosamin DS 2021-07 Yes 0 Memoria oral tablet 1-18 Refill(s) l 17:49: Alexander 00 famotidine 2021-07 Yes 20 mg = [...] Memoria 1-18 microgram l 17:49: =, PO, Alexander 00 Daily, 0 Refill(s) Cosamin DS 2021-07 Yes 0 Memoria oral tablet 1-18 Refill(s) l 17:49: Andrew 00 famotidine 2021-07 Yes 20 mg = 1 Me moria 20 mg oral 1-18 tab, PO, l tablet 17:49: BID, 0 Andrew 00 Refill(s) Vitamin K2 2021-07 Yes 100 Memoria 1-18 microgram l 17:49: =, PO, Alexander 00 Daily, 0 Refill(s) Cosamin DS 2021-07 Yes 0 Memoria oral tablet 1-18 Refill(s) l 17:49: Alexander 00 famotidine 2021-07 Yes 20 mg = 1 Me moria 20 mg oral 1-18 tab, PO, l tablet 17:49: BID, 0 Alexander 00 Refill(s) Vitamin K2 2021-07 Yes 100 Memoria 1-18 microgram l 17:49: =, PO, Alexander 00 Daily, 0 Refill(s) Cosamin DS 2021-07 Yes 0 Memoria oral tablet 1-18 Refill(s) l 17:49: Alexander famotidine 2021-07 Yes 20 mg = 1 [...] Memoria 1-18 microgram l 17:49: =, PO, Alexander 00 Daily, 0 Refill(s) Cosamin DS 2021-07 Yes 0 Memoria oral tablet 1-18 Refill(s) l 17:49: Andrew 00 famotidine 2021-07 Yes 20 mg = 1 Me moria 20 mg oral 1-18 tab, PO, l tablet 17:49: BID, 0 Alexander 00 Refill(s) Vitamin K2 2021-07 Yes 100 Memoria 1-18 microgram l 17:49: =, PO, Alexander 00 Daily, 0 Refill(s) Cosamin DS 2021-07 Yes 0 Memoria oral tablet 1-18 Refill(s) l 17:49: Alexander 00 Docusate 2020-07 Yes 100 mg = 1 Mem oria Sodium 100 0-29 cap, PO, l MG Oral 16:18: BID, 0 Alexander Capsule 00 Refill(s) docusate 2020-07 Yes 100 mg = 1 Mem oria sodium 100 0-29 cap, PO, l mg oral 16:18: BID, 0 Andrew capsule 00 Refill(s) Docusate 2020-07 Yes 100 mg = 1 Mem oria Sodium 100 0-29 cap, PO, l MG Oral 16:18: BID, 0 Alexander Capsule 00 Refill(s) docusate 2020-07 Yes 100 mg = 1 Mem oria sodium 100 0-29 cap, PO, l mg oral 16:18: BID, 0 Andrew capsule 00 Refill(s) Docusate 2020-07 Yes 100 mg = 1 Mem oria Sodium 100 0-29 cap, PO, l MG Oral 16:18: BID, 0 Alexander Capsule 00 Refill(s) docusate 2020-07 Yes 100 mg = 1 Mem oria sodium 100 0-29 cap, PO, l mg oral 16:18: BID, 0 Alexander capsule 00 Refill(s) Docusate 2020-07 Yes 100 mg = 1 Mem oria Sodium 100 0-29 cap, PO, l MG Oral 16:18: BID, 0 Alexander Capsule 00 Refill(s) docusate 2020-07 Yes 100 [...] PO, l MG Oral 16:18: BID, 0 Alexander Capsule 00 Refill(s) docusate 2020-07 Yes 100 mg = 1 Mem oria sodium 100 0-29 cap, PO, l mg oral 16:18: BID, 0 Alexander capsule 00 Refill(s) Docusate 2020-07 Yes 100 mg = 1 Mem oria Sodium 100 0-29 cap, PO, l MG Oral 16:18: BID, 0 Andrew Capsule 00 Refill(s) docusate 2020-07 Yes 100 mg = 1 Mem oria sodium 100 0-29 cap, PO, l mg oral 16:18: BID, 0 Alexander capsule 00 Refill(s) Docusate 2020-07 Yes 100 mg = 1 Mem oria Sodium 100 0-29 cap, PO, l MG Oral 16:18: BID, 0 Alexander Capsule 00 Refill(s) docusate 2020-07 Yes 100 mg = 1 Mem oria sodium 100 0-29 cap, PO, l mg oral 16:18: BID, 0 Alexander capsule 00 Refill(s) docusate 2020-07 Yes 100 mg = 1 Mem oria sodium 100 0-29 cap, PO, l mg oral 16:18: BID, 0 Andrew capsule 00 Refill(s) Docusate 2020-07 Yes 100 mg = 1 Mem oria Sodium 100 0-29 cap, PO, l MG Oral 16:18: BID, 0 Andrew Capsule 00 Refill(s) Docusate 2020-07 Yes 100 [...] PO, l MG Oral 16:18: BID, 0 Alexander Capsule 00 Refill(s) docusate 2020-07 Yes 100 [...] PO, l mg oral 16:18: BID, 0 Alexander capsule 00 Refill(s) Magnesium 2020-07 Yes PO, Daily, Me moria glycinate 0-29 0 l 16:17: Refill(s) Alexander 00 magnesium 2020-07 Yes PO, Daily, Me moria glycinate 0-29 0 l 16:17: Refill(s) Alexander 00 CoQ10 2020-07 Yes 300 mg, Memoria 0-29 PO, Daily, l 16:17: 0 Andrew 00 Refill(s) Vitamin D3 2020-07 Yes 0 Memoria 0-29 Refill(s) l 16:17: Andrew 00 Magnesium 2020-07 Yes PO, Daily, Me [...] tab, PO, l tablet 16:16: Daily, # Alexander 00 30 tab, 0 Refill(s) potassium 2020-07 Yes 10 mEq = 1 Me moria chloride 10 0-29 cap, PO, l mEq oral 16:16: BID, # 180 Her sarmiento capsule, 00 cap, 0 extended Refill(s) release clopidogrel 2020-07 Yes 75 mg = 1 M emoria 75 mg oral 0-29 tab, PO, l tablet 16:16: Daily, # Alexander 30 tab, 0 Refill(s) potassium 2020-07 Yes [...] tab, PO, l tablet 16:16: Daily, # Alexander 00 30 tab, 0 Refill(s) potassium 2020-07 Yes 10 mEq = 1 Me moria chloride 10 0-29 cap, PO, l mEq oral 16:16: BID, # 180 Her sarmiento capsule, 00 cap, 0 extended Refill(s) release clopidogrel 2020-07 Yes 75 mg = 1 M emoria 75 mg oral 0-29 tab, PO, l tablet 16:16: Daily, # Alexander 00 30 tab, 0 Refill(s) clopidogrel 2020-07 Yes 75 mg = 1 M emoria 75 mg oral 0-29 tab, PO, l tablet 16:16: Daily, # Alexander 00 30 tab, 0 Refill(s) potassium 2020-07 [...] tab, PO, l tablet 16:16: Daily, # Alexander 00 30 tab, 0 Refill(s) potassium 2020-07 [...] tab, PO, l tablet 16:16: Daily, # Alexander 00 30 tab, 0 Refill(s) pantoprazol Yes 0 Memori a e 40 mg 7-29 Refill(s) l oral 16:06: Andrew enteric 00 coated tablet pantoprazol Yes 0 Memori a e 40 mg 7-29 Refill(s) l oral 16:06: Alexander enteric 00 coated tablet pantoprazol 2020-0 Yes 0 Memori a e 40 mg 7-29 Refill(s) l oral 16:06: Alexander enteric 00 coated tablet pantoprazol 2020-0 Yes 0 Memori a e 40 mg 7-29 Refill(s) l oral 16:06: Alexander enteric 00 coated tablet pantoprazol 2020-0 Yes 0 Memori a e 40 mg 7-29 Refill(s) l oral 16:06: Alexander enteric 00 coated tablet pantoprazol 2020-0 Yes 0 Memori a e 40 mg 7-29 Refill(s) l oral 16:06: Alexander enteric 00 coated tablet pantoprazol 2020-0 Yes 0 Memori a e 40 mg 7-29 Refill(s) l oral 16:06: Andrew enteric 00 coated tablet pantoprazol 2020-0 Yes 0 Memori a e 40 mg 7-29 Refill(s) l oral 16:06: Alexander enteric 00 coated tablet pantoprazol 2020-0 Yes 0 Memori a e 40 mg 7-29 Refill(s) l oral 16:06: Andrew enteric 00 coated tablet pantoprazol 2020-0 Yes 0 Memori a e 40 mg 7-29 Refill(s) l oral 16:06: Alexander enteric 00 coated tablet pantoprazol 2020-0 Yes 0 Memori a e 40 mg 7-29 Refill(s) l oral 16:06: Alexander enteric 00 coated tablet pantoprazol 2020-0 Yes 0 Memori a e 40 mg 7-29 Refill(s) l oral 16:06: Alexander enteric 00 coated tablet pantoprazol 2020-0 Yes 0 Memori a e 40 mg 7-29 Refill(s) l oral 16:06: Alexander enteric 00 coated tablet aspirin 2020-0 Yes 81 mg, PO, Aman [...] omaira 4- Daily, 0 l 16:45: Refill(s) Promethazin Yes 5 mL, PO, M emoria e DM oral 10-15 Q6H, PRN l syrup 16:44: for cough, Manny n 00 # 120 mL, 0 Refill(s) Ventolin Yes 2 puff, Memori a HFA 4- INHALATION l 16:44: , QID, 0 Refill(s) albuterol Yes 2.5 mg = 3 [...] mL, NEB, l Inhalant 16:44: Q6H, 0 Alexander Solution 00 Refill(s) Promethazin 2020-0 Yes 5 mL, PO, M emoria e DM oral 4-01 Q6H, PRN l syrup 16:44: for cough, Manny n 00 # 120 mL, 0 Refill(s) Ventolin 2020-0 Yes 2 puff, Memori a HFA 4-01 INHALATION l 16:44: , QID, 0 Alexander 00 Refill(s) albuterol 2020-0 Yes 2.5 mg [...] Q6H, 0 Andrew Solution 00 Refill(s) Promethazin 2021-0 Yes 5 mL, PO, M emoria e DM oral 4-01 Q6H, PRN l syrup 16:44: for cough, Manny n 00 # 120 mL, 0 Refill(s) Ventolin 2021-0 Yes 2 puff, Memori a HFA 4-01 INHALATION l 16:44: , QID, 0 Alexander 00 Refill(s) albuterol 2020-0 Yes 2.5 mg = 3 Me moria 0.083% 4-01 mL, NEB, l inhalation 16:44: Q6H, 0 Shari nn solution 00 Refill(s) Albuterol 0 Yes 2.5 mg = 3 Me moria 0.83 MG/ML 4-01 mL, NEB, l Inhalant 16:44: Q6H, 0 Andrew Solution 00 Refill(s) Albuterol 0 Yes 2.5 mg [...] 4-01 INHALATION l 16:44: , QID, 0 Alexander 00 Refill(s) albuterol 0 Yes 2.5 mg = 3 Me moria 0.083% 4-01 mL, NEB, l inhalation 16:44: Q6H, 0 Shari nn solution 00 Refill(s) Albuterol Yes 2.5 mg = 3 Me moria 0.83 MG/ML 4-01 mL, NEB, l Inhalant 16:44: Q6H, 0 Alexander Solution 00 Refill(s) Promethazin 2020-0 Yes 5 mL, PO, M emoria e DM oral 4-01 Q6H, PRN l syrup 16:44: for cough, Manny n 00 # 120 mL, 0 Refill(s) Ventolin 2020-0 Yes 2 puff, Memori a HFA 4-01 INHALATION l 16:44: , QID, 0 Alexander 00 Refill(s) albuterol 0 Yes 2.5 mg [...] 4-01 INHALATION l 16:44: , QID, 0 Alexander 00 Refill(s) albuterol 2020-0 Yes 2.5 mg = 3 Me moria 0.083% 4-01 mL, NEB, l inhalation 16:44: Q6H, 0 Shari nn solution 00 Refill(s) Albuterol 2020-0 Yes 2.5 mg = 3 Me moria 0.83 MG/ML 4-01 mL, NEB, l Inhalant 16:44: Q6H, 0 Alexander Solution 00 Refill(s) Promethazin 2020-0 Yes 5 mL, PO, M emoria e DM oral 4-01 Q6H, PRN l syrup 16:44: for cough, Manny n 00 # 120 mL, 0 Refill(s) Ventolin 2020-0 Yes 2 puff, Memori a HFA 4-01 INHALATION l 16:44: , QID, 0 Alexander 00 Refill(s) albuterol 2020-0 Yes 2.5 mg [...] 4-01 INHALATION l 16:44: , QID, 0 Alexander 00 Refill(s) albuterol 2020-0 Yes 2.5 mg [...] mL, NEB, l Inhalant 16:44: Q6H, 0 Alexander Solution 00 Refill(s) Albuterol 2020-0 Yes 2.5 mg = 3 Me moria 0.83 MG/ML 4-01 mL, NEB, l Inhalant 16:44: Q6H, 0 Alexander Solution 00 Refill(s) Promethazin Yes 5 mL, PO, M emoria e DM oral 4-01 Q6H, PRN l syrup 16:44: for cough, Manny n 00 # 120 mL, 0 Refill(s) Ventolin Yes 2 puff, Memori a HFA 4-01 INHALATION l 16:44: , QID, 0 Alexander 00 Refill(s) albuterol Yes 2.5 mg = 3 Me moria 0.083% 4-01 mL, NEB, l inhalation 16:44: Q6H, 0 Shari nn solution 00 Refill(s) promethazin 0 Yes 0 Memori a e 4-01 Refill(s) l 16:43: Andrew 00 Promethazin 2020-0 Yes 0 Memori a e 4-01 Refill(s) l 16:43: Andrew 00 Promethazin 2020-0 Yes 0 Memori a e 4-01 Refill(s) l 16:43: Andrew 00 promethazin 2020-0 Yes 0 Memori a e 4-01 Refill(s) l 16:43: Alexander 00 Promethazin 2020-0 Yes 0 Memori a e 4-01 Refill(s) l 16:43: Alexander 00 promethazin 2020-0 Yes 0 Memori a e 4-01 Refill(s) l 16:43: Alexander 00 Promethazin 2020-0 Yes 0 Memori a e 4-01 Refill(s) l 16:43: Andrew 00 promethazin 2020-0 Yes 0 Memori a e 4-01 Refill(s) l 16:43: Alexander 00 Promethazin 2020-0 Yes 0 Memori a e 4-01 Refill(s) l 16:43: Alexander 00 Promethazin 2020-0 Yes 0 Memori a e 4-01 Refill(s) l 16:43: Alexander 00 promethazin 2020-0 Yes 0 Memori a e 4-01 Refill(s) l 16:43: Andrew 00 Promethazin 2020-0 Yes 0 Memori a e 4-01 Refill(s) l 16:43: Alexander promethazin 2020-0 Yes 0 Memori a e 4-01 Refill(s) l 16:43: Alexander Promethazin 2020-0 Yes 0 Memori a e 4-01 Refill(s) l 16:43: Alexander promethazin 2020-0 Yes 0 Memori a e 4-01 Refill(s) l 16:43: Andrew Promethazin 2020-0 Yes 0 Memori a e 4-01 Refill(s) l 16:43: Alexander 00 promethazin 2020-0 Yes 0 Memori a e 4-01 Refill(s) l 16:43: Andrew promethazin 2020-0 Yes 0 Memori a e 4-01 Refill(s) l 16:43: Alexander 00 Promethazin 2020-0 Yes 0 Memori a e 4-01 Refill(s) l 16:43: Andrew promethazin 2020-0 Yes 0 Memori a e 4-01 Refill(s) l 16:43: Andrew 00 Promethazin 2020-0 Yes 0 Memori a e 4-01 Refill(s) l 16:43: Alexander 00 promethazin 2020-0 Yes 0 Memori a e 4-01 Refill(s) l 16:43: Alexander 00 Promethazin 2020-0 Yes 0 Memori a e 4-01 Refill(s) l 16:43: Alexander 00 Promethazin 2020-0 Yes 0 Memori a e 4-01 Refill(s) l 16:43: Andrew 00 promethazin 2020-0 Yes 0 Memori a e 4-01 Refill(s) l 16:43: Andrew 00 Premarin 2020-0 Yes VAG, 0 Memoria Vaginal 4-01 Refill(s) l 16:42: Andrew 00 Premarin 2020-0 Yes VAG, 0 Memoria Vaginal 4-01 Refill(s) l 16:42: Andrew Premarin 2020-0 Yes VAG, 0 Memoria Vaginal 4-01 Refill(s) l 16:42: Andrew Premarin 2020-0 Yes VAG, 0 Memoria Vaginal 4-01 Refill(s) l 16:42: Andrew 00 Premarin 0 Yes VAG, 0 Memoria Vaginal 4-01 Refill(s) l 16:42: Andrew 00 Premarin 0 Yes VAG, 0 Memoria Vaginal 4-01 Refill(s) l 16:42: arin 0 Yes VAG, 0 Memoria Vaginal 4-01 Refill(s) l 16:42: Andrewarin 0 Yes VAG, 0 Memoria Vaginal 4-01 Refill(s) l 16:42: Alexander 00 Premarin 0 Yes VAG, 0 Memoria Vaginal 4-01 Refill(s) l 16:42: Andrewarin 0 Yes VAG, 0 Memoria Vaginal 4-01 Refill(s) l 16:42: Andrewarin 0 Yes VAG, 0 Memoria Vaginal 4-01 Refill(s) l 16:42: arin 0 Yes VAG, 0 Memoria Vaginal 4-01 Refill(s) l 16:42: arin 0 Yes VAG, 0 Memoria Vaginal 4-01 Refill(s) l 16:42: atorvastati 0 Yes 40 mg, PO, Memoria n 4- Bedtime, 0 l 16:41: Refill(s) atorvastati Yes 40 mg, PO, Memoria n 4- Bedtime, 0 l 16:41: Refill(s) atorvastati 0 Yes 40 mg, PO, Memoria n 4- Bedtime, 0 l 16:41: Refill(s) atorvastati 0 Yes 40 mg, PO, Memoria n 4- Bedtime, 0 l 16:41: Refill(s) atorvastati 0 Yes 40 mg, PO, Memoria n 4- Bedtime, 0 l 16:41: Refill(s) atorvastati Yes 40 mg, PO, Memoria n 4- Bedtime, 0 l 16:41: Refill(s) atorvastati Yes 40 mg, PO, Memoria n - Bedtime, 0 l 16:41: Refill(s) atorvastati Yes [...] atorvastati Yes 40 mg, PO, Memoria n 4-01 Bedtime, 0 l 16:41: Refill(s) Alexander 00 atorvastati 0 Yes 40 mg, PO, Memoria n 4 Bedtime, 0 l 16:41: Refill(s) Andrew 00 atorvastati 0 Yes 40 mg, PO, Memoria n 4 Bedtime, 0 l 16:41: Refill(s) Andrew 00 atorvastati Yes 40 mg, PO, Memoria n 4 Bedtime, 0 l 16:41: Refill(s) Alexander 00 atorvastati 0 Yes 40 mg, PO, Memoria n 4 Bedtime, 0 l 16:41: Refill(s) Andrew 00 atorvastati Yes 40 mg, PO, Memoria n 10-15 Bedtime, 0 l 16:41: Refill(s) levocetiriz Yes See Memori a ine 4- Instructio l 16:40: ns, Alexander 00 1-2caps TID, 0 Refill(s) levocetiriz Yes See Memori a ine 4- Instructio l 16:40: ns, Andrew 00 1-2caps TID, 0 Refill(s) levocetiriz Yes See Memori a ine 4-01 Instructio l 16:40: ns, Andrew 00 1-2caps TID, 0 Refill(s) levocetiriz Yes See Memori a ine 4-01 Instructio l 16:40: ns, Alexander 00 1-2caps TID, 0 Refill(s) levocetiriz 0 Yes See Memori a ine 4-01 Instructio l 16:40: ns, Andrew 00 1-2caps TID, 0 Refill(s) levocetiriz 0 Yes See Memori a ine 4-01 Instructio l 16:40: ns, Andrew 00 1-2caps TID, 0 Refill(s) levocetiriz 0 Yes See Memori a ine 4-01 Instructio l 16:40: ns, Andrew 00 1-2caps TID, 0 Refill(s) levocetiriz 2021-0 Yes See Memori a ine - Instructio l 16:40: ns, Alexander 00 1-2caps TID, 0 Refill(s) levocetiriz 2020-0 [...] a ine 10-15 Instructio l 16:40: ns, Alexander 00 1-2caps TID, 0 Refill(s) levocetiriz 2020-0 Yes See Memori a ine 10-15 Instructio l 16:40: ns, Andrew 00 1-2caps TID, 0 Refill(s) levocetiriz 2020-0 Yes See Memori a ine 10-15 Instructio l 16:40: ns, Andrew 00 1-2caps TID, 0 Refill(s) levocetiriz 2020-0 Yes See Memori a ine 10-15 Instructio l 16:40: ns, Alexander 00 1-2caps TID, 0 Refill(s) levocetiriz 2020-0 Yes See Memori a ine 10-15 Instructio l 16:40: ns, Andrew 00 1-2caps TID, 0 Refill(s) levocetiriz 2020-0 Yes See Memori a ine 10-15 Instructio l 16:40: ns, Alexander 00 1-2caps TID, 0 Refill(s) levocetiriz 2020-0 Yes See Memori a ine - Instructio l 16:40: ns, Alexander 00 1-2caps TID, 0 Refill(s) levocetiriz 2020-0 Yes See Memori a ine 10-15 Instructio l 16:40: ns, Alexander 00 1-2caps TID, 0 Refill(s) levocetiriz 2020-0 [...] a ine 10-15 Instructio l 16:40: ns, Alexander 00 1-2caps TID, 0 Refill(s) levocetiriz 2020-0 [...] Q-M and l 16:39: Th, # 15 Alexander 00 tab, 0 Refill(s) Metolazone 2020-0 Yes 5 mg, PO, Me moria 4-01 Q-M and l 16:39: Th, # 15 Alexander 00 tab, 0 Refill(s) Metolazone 2020-0 Yes 5 mg, PO, Me moria 4-01 Q-M and l 16:39: Th, # 15 Andrew 00 tab, 0 Refill(s) Metolazone 2020-0 Yes 5 mg, PO, Me moria 4-01 Q-M and l 16:39: Th, # 15 Andrew 00 tab, 0 Refill(s) Metolazone 2020-0 Yes 5 mg, PO, Me moria 10-15 Q-M and l 16:39: Th, # 15 Alexander 00 tab, 0 Refill(s) Metolazone 2020-0 Yes 5 mg, PO, Me moria 10-15 Q-M and l 16:39: Th, # 15 Alexander 00 tab, 0 Refill(s) Metolazone 2020-0 Yes 5 mg, PO, Me moria 10-15 Q-M and l 16:39: Th, # 15 Alexander 00 tab, 0 Refill(s) Metolazone 2020-0 Yes [...] Daily, # l 16:38: 60 tab, 0 Alexander 00 Refill(s) spironolact 2020-0 Yes 50 mg, PO, Memoria one 4- Daily, # l 16:38: 60 tab, 0 Andrew 00 Refill(s) Spironolact 2020-0 Yes 50 mg, PO, Memoria one 4- Daily, # l 16:38: 60 tab, 0 Alexander 00 Refill(s) spironolact 1-0 Yes 50 mg, PO, Memoria one 10-15 Daily, # l 16:38: 60 tab, 0 Alexander 00 Refill(s) Spironolact 1-0 Yes 50 mg, PO, Memoria one 10-15 Daily, # l 16:38: 60 tab, 0 Alexander 00 Refill(s) spironolact 1-0 Yes 50 mg, PO, Memoria one 10-15 Daily, # l 16:38: 60 tab, 0 Alexander 00 Refill(s) Spironolact 2020-0 Yes 50 mg, PO, Memoria one 10-15 Daily, # l 16:38: 60 tab, 0 Alexander 00 Refill(s) spironolact 1-0 Yes 50 mg, PO, Memoria one 10-15 Daily, # l 16:38: 60 tab, 0 Alexander 00 Refill(s) Spironolact 2020-0 Yes 50 mg, PO, Memoria one 10-15 Daily, # l 16:38: 60 tab, 0 Alexander 00 Refill(s) Spironolact 2020-0 Yes 50 mg, PO, Memoria one 10-15 Daily, # l 16:38: 60 tab, 0 Andrew 00 Refill(s) spironolact 1-0 Yes 50 mg, PO, Memoria one 10-15 Daily, # l 16:38: 60 tab, 0 Alexander 00 Refill(s) Spironolact 1-0 Yes 50 mg, PO, Memoria one 10-15 Daily, # l 16:38: 60 tab, 0 Alexander 00 Refill(s) spironolact 1-0 Yes 50 mg, PO, Memoria one 10-15 Daily, # l 16:38: 60 tab, 0 Andrew 00 Refill(s) Spironolact 1-0 Yes 50 mg, PO, Memoria one 10-15 Daily, # l 16:38: 60 tab, 0 Alexander 00 Refill(s) spironolact 1-0 Yes 50 mg, PO, Memoria one 10-15 Daily, # l 16:38: 60 tab, 0 Andrew 00 Refill(s) spironolact 2020-0 Yes 50 mg, PO, Memoria one 4- Daily, # l 16:38: 60 tab, 0 Alexander 00 Refill(s) Spironolact 2020-0 Yes 50 mg, PO, Memoria one 4- Daily, # l 16:38: 60 tab, 0 Alexander 00 Refill(s) spironolact 2020-0 Yes 50 mg, PO, Memoria one 10-15 Daily, # l 16:38: 60 tab, 0 Alexander 00 Refill(s) Spironolact 2020-0 Yes 50 mg, PO, Memoria one 10-15 Daily, # l 16:38: 60 tab, 0 Alexander 00 Refill(s) spironolact 2020-0 Yes 50 mg, PO, Memoria one 10-15 Daily, # l 16:38: 60 tab, 0 Alexander 00 Refill(s) Spironolact 2020-0 Yes 50 mg, PO, Memoria one 10-15 Daily, # l 16:38: 60 tab, 0 Alexander 00 Refill(s) Spironolact 2020-0 Yes 50 mg, PO, Memoria one - Daily, # l 16:38: 60 tab, 0 Andrew 00 Refill(s) spironolact 2020-0 Yes 50 mg, PO, Memoria one - Daily, # l 16:38: 60 tab, 0 Andrew 00 Refill(s) spironolact 2018-07 Yes 100mg QD Take [address] one 0-09 mg by Lumurali (ALDACTONE) 19:51: mouth Medic al 100 MG 48 daily. Center tablet metOLazone 2018-07 Yes 5mg QD Take [address] [facility] [address] (ZAROXOLYN) 0-09 by mouth Luke s 5 MG tablet 19:51: daily. Medi linnea 48 Center potassium 2018-07 Yes 10meq Q.[id number] Take [address] [facility] chloride 0-09 [id number] mEq by Shoaib es (KLOR-CON) 19:51: 3D [...] linnea 48 Center potassium 2018-07 Yes 10meq Q.[id number] Take [address] [facility] chloride 0-09 [id number] mEq by Shoaib wilkins (KLOR-CON) 19:51: 3D [...] linnea 48 Center potassium 2018-07 Yes 10meq Q.[id number] Take [address] [facility] [address] chloride 0-09 [id number] mEq by Shoaib es (KLOR-CON) 19:51: 3D [...] linnea 48 Center potassium 2018-07 Yes 10meq Q.[id number] Take [address] [facility] [address] chloride 0-09 [id number] mEq by Shoaib es (KLOR-CON) 19:51: 3D [...] linnea 48 Center potassium 2018-07 Yes 10meq Q.[id number] Take [address] [facility] [address] chloride 0-09 [id number] mEq by Shoaib wilknis (KLOR-CON) 19:51: 3D mouth 3 Medi linnea [...] linnea 48 Center potassium 2018-07 Yes 10meq Q.[id number] Take [address] [facility] [address] chloride 0-09 [id number] mEq by Shoaib es (KLOR-CON) 19:51: 3D [...] linnea 48 Center potassium 2018-07 Yes 10meq Q.[id number] Take [address] [facility] [address] chloride 0-09 [id number] mEq by Shoaib es (KLOR-CON) 19:51: 3D [...] linnea 48 Center potassium 2018-07 Yes 10meq Q.[id number] Take [address] [facility] [address] chloride 0-09 [id number] mEq by Shoaib es (KLOR-CON) 19:51: 3D mouth 3 Medi linnea 10 MEQ CR 48 (three) Center tablet times daily. levocetiriz 2018-07 Yes 5mg QD Take [address] ine (XYZAL) 0-09 by mouth Luke s 5 MG tablet 19:51: every Medic al 48 evening. Center promethazin 2018-07 Yes 6.25mg Take 6.[address] [facility] e 0-09 mg by [place] (PHENERGAN) 19:51: mouth 4 Med ical 6.25 [...] linnea 48 Center potassium 2018-07 Yes 10meq Q.[id number] Take [address] [facility] [address] chloride 0-09 [id number] mEq by Shoaib wilkins (KLOR-CON) 19:51: 3D [...] linnea 48 Center potassium 2018-07 Yes 10meq Q.[id number] Take [address] [facility] [address] chloride 0-09 [id number] mEq by Shoaib es (KLOR-CON) 19:51: 3D [...] linnea 48 Center potassium 2018-07 Yes 10meq Q.[id number] Take [address] [facility] [address] chloride 0-09 [id number] mEq by Shoaib es (KLOR-CON) 19:51: 3D [...] linnea 48 Center potassium 2018-07 Yes 10meq Q.[id number] Take [address] [facility] [address] chloride 0-09 [id number] mEq by Shoaib es (KLOR-CON) 19:51: 3D [...] syrup times daily as needed for Nausea. Vital Signs Vital Name Observation Time Observation Value Comments Source Weight 2023-05-23 21:16:00 [facility] Calculated 2023-05-23 21:16:00 [facility] Alexander Systolic (mm Hg) 2023-05-23 21:16:00 Aman rial Andrew Diastolic (mm Hg) 2023-05-23 21:16:00 Mem orial Alexander Heart Rate 2023-05-23 21:16:00 [facility] Height 2023-05-23 21:16:00 5 [ft_i] [facility] Systolic (mm Hg) 2023-04-14 18:48:00 Aman rial Alexander Diastolic (mm Hg) 2023-04-14 18:48:00 Mem orial Alexander Heart Rate 2023-04-14 18:48:00 [facility] Height 2023-04-14 18:48:00 5 [ft_i] [facility] Weight 2023-04-14 18:48:00 [facility] BMI Calculated 2023-04-14 18:48:00 Memori al Alexander Systolic (mm Hg) 2023-01-26 20:44:00 Aman rial Alexander Diastolic (mm Hg) 2023-01-26 20:44:00 Mem orial Alexander Heart Rate 2023-01-26 20:44:00 [facility] Height 2023-01-26 20:44:00 5 [ft_i] [facility] Weight 2023-01-26 20:44:00 [facility] BMI Calculated 2023-01-26 20:44:00 Memori al Alexander Systolic (mm Hg) 2022-12-26 18:17:00 Aman rial Andrew Diastolic (mm Hg) 2022-12-26 18:17:00 Mem orial Andrew Heart Rate 2022-12-26 18:17:00 [facility] Height 2022-11-28 19:43:00 5 [ft_i] [facility] Weight 2022-11-28 19:43:00 [facility] BMI Calculated 2022-11-28 19:43:00 Memori al Andrew Systolic (mm Hg) 2022-11-28 19:43:00 Aman rial Andrew Diastolic (mm Hg) 2022-11-28 19:43:00 Mem orial Alexander Heart Rate 2022-11-28 19:43:00 [facility] Systolic (mm Hg) 2022-08-25 17:48:00 Aman rial Alexander Diastolic (mm Hg) 2022-08-25 17:48:00 Mem orial Alexander Heart Rate 2022-08-25 17:48:00 [facility] Height 2022-08-25 17:48:00 5 [ft_i] [facility] Weight 2022-08-25 17:48:00 [facility] BMI Calculated 2022-08-25 17:48:00 Memori al Andrew Systolic (mm Hg) 2022-06-03 17:27:00 Aman rial Andrew Diastolic (mm Hg) 2022-06-03 17:27:00 Mem orial Alexander Heart Rate 2022-06-03 17:27:00 [facility] Height 2022-06-03 17:27:00 5 [ft_i] [facility] Weight 2022-06-03 17:27:00 [facility] BMI Calculated 2022-06-03 17:27:00 [facility] Respitory Rate 2022-04-11 15:12:00 [facility] [place] Height 2022-04-11 15:12:00 162.56 cm [facility] Weight 2022-04-11 15:12:00 [facility] BMI Calculated 2022-04-11 15:12:00 Memori al Andrew Systolic (mm Hg) 2022-04-11 15:12:00 Aman rial Andrew Diastolic (mm Hg) 2022-04-11 15:12:00 Mem orial Alexander Heart Rate 2022-04-11 15:12:00 [facility] Respitory Rate 2021-10-07 15:45:00 [facility] Height 2021-10-07 15:45:00 160.02 cm [facility] Weight 2021-10-07 15:45:00 [facility] BMI Calculated 2021-10-07 15:45:00 [facility] Systolic (mm Hg) 2021-10-07 15:45:00 [facility] Diastolic (mm Hg) 2021-10-07 15:45:00 [facility] Heart Rate 2021-10-07 15:45:00 [facility] Systolic (mm Hg) 2021-05-14 15:45:00 [facility] Diastolic (mm Hg) 2021-05-14 15:45:00 [facility] Heart Rate 2021-05-14 15:45:00 [facility] Respitory Rate 2021-05-14 15:45:00 [facility] Height 2021-05-14 15:45:00 160.02 cm [facility] Weight 2021-05-14 15:45:00 [facility] BMI Calculated 2021-05-14 15:45:00 [facility] Systolic (mm Hg) 2021-02-11 15:35:00 [facility] Diastolic (mm Hg) 2021-02-11 15:35:00 [facility] Heart Rate 2021-02-11 15:35:00 [facility] Respitory Rate 2021-02-11 15:35:00 [facility] Height 2021-02-11 15:35:00 162.56 cm [facility] Weight 2021-02-11 15:35:00 [facility] BMI Calculated 2021-02-11 15:35:00 [facility] Systolic (mm Hg) 2020-11-12 15:12:00 [facility] Diastolic (mm Hg) 2020-11-12 15:12:00 [facility] Heart Rate 2020-11-12 15:12:00 [facility] Respitory Rate 2020-11-12 15:12:00 [facility] Weight 2020-11-12 15:12:00 [facility] Systolic (mm Hg) 2020-10-15 16:26:00 [facility] Diastolic (mm Hg) 2020-10-15 16:26:00 [facility] Heart Rate 2020-10-15 16:26:00 [facility] Respitory Rate 2020-10-15 16:26:00 [facility] Height 2020-10-15 16:26:00 160.02 cm [facility] Weight 2020-10-15 16:26:00 [facility] BMI Calculated 2020-10-15 16:26:00 [facility] Procedures Procedure Date / Time Performing Clinician Source Performed [id number] 2022-07-21 00:00:00 CHAAB.01 [facility] [id number] 2022-01-13 00:00:00 CHAAB.01 [facility] [id number] 2022-01-12 00:00:00 CHAAB.01 [facility] [id number] 2022-01-12 00:00:00 CHAAB.01 [facility] [id number] 2022-01-12 00:00:00 RASSA [facility] [id number] 2022-01-12 00:00:00 RASSA [facility] [id number] 2022-01-12 00:00:00 RASSA [facility] [id number] 2021-08-04 00:00:00 RASSA [facility] [id number] 2021-08-04 00:00:00 RASSA [facility] [id number] 2021-08-04 00:00:00 RASSA [facility] [id number] 2021-05-09 00:00:00 LEEGA [facility] CT HEART SCAN PLUS W 2021-03-03 15:31:21 Garth Hopkins [facility] PHYSICIAN ORDER US VASCULAR SCREENING 2021-03-03 15:13:36 Garth Hopkins [facility] HEART SCAN PLUS Carotid [facility] endarterectomy<sup>1</sup> Cholecystectomy [facility] Breast biopsy and related [facility] procedures Appendectomy [facility] Care Planned Activity Planned Date Details Comments Source Future Scheduled 2023-05-13 COVID-19 VACCINE (#1) [facility] 09:20:58 [code = COVID-19 VACCINE (#1)] Future Scheduled 2023-05-13 [facility] Test 09:20:58 (procedure) [code = 969560485] Future Scheduled 2023-05-13 SHINGLES VACCINES (1 [facility] Test 09:20:58 of 2) [code = SHINGLES VACCINES (1 of 2)] Future Scheduled 2023-05-13 65+ [facility]OCO[facility] [facility] Test 09:20:58 VACCINE (1 - PCV) [code = 65+ PNEUMOCOCCAL VACCINE (1 - PCV)] Future Scheduled 2023-05-13 INFLUENZA VACCINE (#[facility] 09:20:58 [code = INFLUENZA VACCINE (#1)] Future Scheduled 2023-02-19 COVID-19 VACCINE (#1) [facility] 04:24:47 [code = COVID-19 VACCINE (#1)] Future Scheduled 2023-02-19 [facility] Test 04:24:47 (procedure) [code = 461049167] Future Scheduled 2023-02-19 SHINGLES VACCINES (1 Met [facility] Test 04:24:47 of 2) [code = SHINGLES VACCINES (1 of 2)] Future Scheduled 2023-02-19 65+ [facility]OCOCC[facility] Test 04:24:47 VACCINE (1 - PCV) [code = 65+ PNEUMOCOCCAL VACCINE (1 - PCV)] Future Scheduled 2023-02-19 [facility]ACCINE [facility] Test 04:24:47 [code = INFLUENZA VACCINE] Future Scheduled 2022-12-24 COVID-19 VACCINE (#1) [facility] 01:25:09 [code = COVID-19 VACCINE (#1)] Future Scheduled 2022-12-24 [facility] 01:25:09 (procedure) [code = 215625092] Future Scheduled 2022-12-24 SHINGLES VACCINES (1 [facility] Test 01:25:09 of 2) [code = SHINGLES VACCINES (1 of 2)] Future Scheduled 2022-12-24 65+ [facility]OCOCC[facility] Test 01:25:09 VACCINE (1 - PCV) [code = 65+ PNEUMOCOCCAL VACCINE (1 - PCV)] Future Scheduled 2022-12-24 INFLUENZA VACCINE [facility] Test 01:25:09 [code = INFLUENZA VACCINE] Future Scheduled 2022-11-21 COVID-19 VACCINE (#1) Me [facility] Test 12:06:57 [code = COVID-19 VACCINE (#1)] Future Scheduled 2022-11-21 Hepatitis C screening [facility] Test 12:06:57 (procedure) [code = 488962923] Future Scheduled 2022-11-21 COLONOSCOPY SCREENING [facility] Test 12:06:57 [code = COLONOSCOPY SCREENING] Future Scheduled 2022-11-21 SHINGLES VACCINES (1 Met [facility] Test 12:06:57 of 2) [code = SHINGLES VACCINES (1 of 2)] Future Scheduled 2022-11-21 65+ PNEUMOCOCCAL [facility] Test 12:06:57 VACCINE (1 - PCV) [code = 65+ PNEUMOCOCCAL VACCINE (1 - PCV)] Future Scheduled 2022-11-21 INFL[facility]ENZA VACCINE [facility] Test 12:06:57 [code = INFLUENZA VACCINE] Future Scheduled 2022-07-31 Hepatitis C screening [facility] Test 12:44:36 (procedure) [code = 378958496] Future Scheduled 2022-07-31 COLONOSCOPY SCREENING [facility] Test 12:44:36 [code = COLONOSCOPY SCREENING] Future Scheduled 2022-07-31 SHINGLES VACCINES (1 Met [facility] Test 12:44:36 of 2) [code = SHINGLES VACCINES (1 of 2)] Future Scheduled 2022-07-31 65+ PNEUMOCOCCAL [facility] Test 12:44:36 VACCINE (1 - PCV) [code = 65+ PNEUMOCOCCAL VACCINE (1 - PCV)] Future Scheduled 2022-07-31 INFLUENZA VACCINE [facility] Test 12:44:36 [code = INFLUENZA VACCINE] Future Scheduled 2022-07-31 COVID-19 VACCINE (#1) [facility] Test 12:44:36 [code = COVID-19 VACCINE (#1)] Future Scheduled 2022-07-31 Hepatitis C screening [facility] Test 12:44:36 (procedure) [code = 931454431] Future Scheduled 2022-07-31 [facility] 12:44:36 [code = COLONOSCOPY SCREENING] Future Scheduled 2022-07-31 SHINGLES VACCINES (1 [facility] Test 12:44:36 of 2) [code = [...] [facility] Test 12:44:36 (procedure) [code = 294419999] Future Scheduled 2022-07-31 COLONOSCOPY SCREENING [facility] Test 12:44:36 [code = COLONOSCOPY SCREENING] Future Scheduled 2022-07-31 SHINGLES VACCINES (1 Met [facility] Test 12:44:36 of 2) [code = SHINGLES VACCINES (1 of 2)] Future Scheduled 2022-07-31 65+ PNEUMOCOCCAL [facility] Test 12:44:36 VACCINE (1 - PCV) [code = 65+ PNEUMOCOCCAL VACCINE (1 - PCV)] Future Scheduled 2022-07-31 INFLUENZA VACCINE [facility] Test 12:44:36 [code = INFLUENZA VACCINE] Future Scheduled 2022-07-31 COVID-19 VACCINE (#1) [facility] Test 12:44:36 [code = COVID-19 VACCINE (#1)] Future Scheduled 2022-07-21 COVID-19 VACCINE (#1) [facility] Test 13:14:09 [code = COVID-19 VACCINE (#1)] Future Scheduled 2022-07-21 [facility] C screening [facility] Test 13:14:09 (procedure) [code = 933751409] Future Scheduled 2022-07-21 COLONOSCOPY SCREENING Me [facility] Test 13:14:09 [code = COLONOSCOPY SCREENING] Future Scheduled 2022-07-21 SHINGLES VACCINES (1 [facility] Test 13:14:09 of 2) [code = SHINGLES VACCINES (1 of 2)] Future Scheduled 2022-07-21 65+ PNEUMOCOCCAL [facility] Test 13:14:09 VACCINE (1 - PCV) [code = 65+ PNEUMOCOCCAL VACCINE (1 - PCV)] Future Scheduled 2022-07-21 INFLUENZA VACCINE [facility] Test 13:14:09 [code = INFLUENZA VACCINE] Future Scheduled 2022-07-21 COVID-19 VACCINE (#1) [facility] Test 13:14:09 [code = COVID-19 VACCINE (#1)] Future Scheduled 2022-07-21 Hepatitis C screening [facility] Test 13:14:09 (procedure) [code = 719366288] Future Scheduled 2022-07-21 COLONOSCOPY SCREENING [facility] Test 13:14:09 [code = COLONOSCOPY SCREENING] Future Scheduled 2022-07-21 SHINGLES VACCINES (1 Met [facility] Test 13:14:09 of 2) [code = SHINGLES VACCINES (1 of 2)] Future Scheduled 2022-07-21 65+ PNEUMOCOCCAL [facility] Test 13:14:09 VACCINE (1 - PCV) [code = 65+ PNEUMOCOCCAL VACCINE (1 - PCV)] Future Scheduled 2022-07-21 INFLUENZA VACCINE [facility] Test 13:14:09 [code = INFLUENZA VACCINE] Future Scheduled 2022-07-21 COVID-19 VACCINE (#1) [facility] Test 13:14:09 [code = COVID-19 VACCINE (#1)] Future Scheduled 2022-07-21 Hepatitis C screening [facility] Test 13:14:09 (procedure) [code = 722391080] Future Scheduled 2022-07-21 COLONOSCOPY SCREENING [facility] Test 13:14:09 [code = COLONOSCOPY SCREENING] Future Scheduled 2022-07-21 SHINGLES VACCINES (1 Met [facility] Test 13:14:09 of 2) [code = SHINGLES VACCINES (1 of 2)] Future Scheduled 2022-07-21 65+ PNEUMOCOCCAL [facility] Test 13:14:09 VACCINE (1 - PCV) [code = 65+ PNEUMOCOCCAL VACCINE (1 - PCV)] Future Scheduled 2022-07-21 INFLUENZA VACCINE [facility] Test 13:14:09 [code = INFLUENZA VACCINE] Future Scheduled 2022-07-03 COVID-19 VACCINE (#1) [facility] Test 09:16:22 [code = COVID-19 VACCINE (#1)] Future Scheduled 2022-07-03 [facility] Test 09:16:22 (procedure) [code = 880772841] Future Scheduled 2022-07-03 [facility]CREENING [facility] Test 09:16:22 [code = COLONOSCOPY SCREENING] Future Scheduled 2022-07-03 SHINGLES VACCINES (1 [facility] Test 09:16:22 of 2) [code = SHINGLES VACCINES (1 of 2)] Future Scheduled 2022-07-03 65+ [facility]OCOCC[facility] Test 09:16:22 VACCINE (1 - PCV) [code = 65+ PNEUMOCOCCAL VACCINE (1 - PCV)] Future Scheduled 2022-07-03 INFLUENZA VACCINE [facility] Test 09:16:22 [code = INFLUENZA VACCINE] Future Scheduled 2022-07-03 [facility] 09:16:22 [code = COVID-19 VACCINE (#1)] Future Scheduled 2022-07-03 Hepatitis C screening [facility] Test 09:16:22 (procedure) [code = 225413797] Future Scheduled 2022-07-03 COLONOSCOPY SCREENING [facility] Test 09:16:22 [code = COLONOSCOPY SCREENING] Future Scheduled 2022-07-03 SHINGLES VACCINES (1 [facility] Test 09:16:22 of 2) [code = [...] 00:00:00 (1 of 1 - [facility] [id number] PCV13) [code = PNEUMOCOCCAL 65+ YRS (1 of 1 - [id number]_Ambddog PCV13)] Future Scheduled 1995-[birth year]-29 SHINGLES VACCINES (1 [...] Shoaib es Test 00:00:00 [facility] (procedure) [code = 006069854] Future Scheduled COVID-19 VACCINE (1) [facility] Test [code = COVID-19 VACCINE (1)] Future Scheduled [facility] C [facility] Test (procedure) [code = 913684897] Future Scheduled BREAST CANC[facility] Test SCREENING [code = BREAST CANCER [...] Date/Time Type Type Clinicians Facility Department ID 2023-07-07 2023-07-07 Outpatient MHIE MHIE [id number] [facility] 11:15:00 11:15:00 21 todd Morales 2023-06-02 2023-06-02 Outpatient MHIE MHIE [id number] [facility] 13:00:00 13:00:00 20 todd Morales 2023-05-23 2023-05-24 Outpatient MHIE MNA [id number] [facility] 20:45:00 05:59:59 Neurology 19 todd Morales 2023-05-23 2023-05-23 Outpatient Augusta MHMISCHER MHMISCHER [id number] 14:45:00 23:59:59 Merritt 19 Cesar 2023-05-23 2023-05-23 Outpatient MHIE MHIE [id number] [facility] 14:45:00 14:45:00 19 todd Morales 2023-05-01 2023-05-01 Outpatient GC_GCBZW_Ka PRIV PRIV [id number] [facility] 00:00:00 00:00:00 diyala_S [id number] Medic al 2023-05-01 2023-05-01 Outpatient GC_GCBZW_Ka PRIV PRIV [id number] [facility] 00:00:00 00:00:00 diyala_S [id number] Medic al 2023-04-28 2023-04-28 Ambulatory MHIE MNA [id number] [facility] 18:30:00 18:30:00 Pre-Reg Neurology 17 l Andrés Canoann 2023-04-28 2023-04-28 Outpatient MHIE MHIE [id number] [facility] 13:30:00 13:30:00 17 todd CanoAndrew 2023-04-28 2023-04-28 Outpatient MHIE MHIE [id number] [facility] 13:30:00 13:30:00 17 todd Morales 2023-04-28 2023-04-28 Outpatient Augusta MHMISCHER MHMISCHER [id number] 13:30:00 13:30:00 Merritt 17 Cesar 2023-04-14 2023-04-15 Outpatient MHIE MNA [id number] [facility] 18:30:00 04:59:59 Neurology 18 l Andrés Morales 2023-04-14 2023-04-14 Outpatient [facility] [id number] 13:30:00 23:59:59 Merritt 18 Cesar 2023-04-14 2023-04-14 Outpatient MHIE MHIE [id number] [facility]oria 13:30:00 13:30:00 18 todd Morales 2023-03-03 2023-03-03 Outpatient GC_GCBZW_Ka PRIV PRIV [id number] [facility] 00:00:00 00:00:00 diyala_S [id number] Medic al 2023-03-03 2023-03-03 Outpatient GC_GCBZW_Ka PRIV PRIV [id number] [facility] 00:00:00 00:00:00 diyala_S [id number] Medic al 2023-03-01 2023-03-01 Outpatient GC_GCBZW_Ka PRIV PRIV [id number] [facility] 00:00:00 00:00:00 diyala_S [id number] Medic al 2023-02-27 2023-02-28 Inpatient Leonard [facility] MEDI.01 [id number] [facility] 08:19:00 16:17:[address] [place] [address] 2023-02-22 2023-02-22 Outpatient GC_GCBZW_Ka PRIV PRIV [id number] [facility] 00:00:00 00:00:00 diyala_S [id number] Medic al 2023-02-16 2023-02-16 Outpatient GC_GCBZW_Ka PRIV PRIV [id number] [facility] 00:00:00 00:00:00 diyala_S [id number] Medic al 2023-02-15 2023-02-15 Outpatient GC_GCBZW_Ka PRIV PRIV [id number] [facility] 00:00:00 00:00:00 diyala_S [id number] Medic al 2023-01-26 2023-01-27 Outpatient MHIE MNA [id number] [facility] 20:30:00 04:59:59 Neurology 15 l Andrés Morales 2023-01-26 2023-01-27 Outpatient MHIE MNA [id number] [facility] 20:30:00 04:59:59 Neurology 15 l Andrés Morales 2023-01-26 2023-01-26 Outpatient PATTI DerasARSCHER MISCHER [id number] 15:30:00 23:59:59 Merritt 15 Cesar 2023-01-26 2023-01-26 Outpatient MHIE MHIE [id number] [facility] 15:30:00 15:30:00 15 todd Morales 2022-12-26 2022-12-27 Outpatient MHIE MNA [id number] [facility] 18:15:00 04:59:59 Neurology 16 l Andrés Morales 2022-12-26 2022-12-27 Outpatient MHIE MNA [id number] [facility] 18:15:00 04:59:59 Neurology 16 todd Morales 2022-12-26 2022-12-26 Outpatient PATTI DerasARSCHER MISCHER [id number] 13:15:00 23:59:59 Merritt 16 Cesar 2022-12-26 2022-12-26 Outpatient MHIE MHIE [id number] [facility] 13:15:00 13:15:00 16 todd Morales 2022-12-23 2022-12-23 Ambulatory MHIE MNA [id number] [facility] 16:00:00 16:00:00 Pre-Reg Neurology 12 l Andrés Morales 2022-12-23 2022-12-23 Ambulatory MHIE MNA [id number] [facility] 16:00:00 16:00:00 Pre-Reg Neurology 12 todd Morales 2022-12-23 2022-12-23 Outpatient MHIE MHIE [id number] [facility] 11:00:00 11:00:00 12 todd Morales 2022-12-23 2022-12-23 [id number] 11:00:00 11:00:00 Merritt 12 Cesar 2022-12-20 2022-12-20 Ambulatory MHIE MNA [id number] [facility] 15:30:00 15:30:00 Pre-Reg Neurology 08 l Andrés Morales 2022-12-20 2022-12-20 Ambulatory MHIE MNA [id number] [facility] 15:30:00 15:30:00 Pre-Reg Neurology 08 todd Morales 2022-12-20 2022-12-20 Outpatient MHIE MHIE [id number] [facility] 10:30:00 10:30:00 08 todd Morales 2022-12-20 2022-12-20 [facility] [id number] 10:30:00 10:30:00 Merritt 08 Cesar 2022-12-15 2022-12-16 Outpatient MHIE MNA [id number] [facility] 18:00:00 04:59:59 Neurology 14 todd Morales 2022-12-15 2022-12-16 Outpatient MHIE MNA [id number] [facility] 18:00:00 04:59:59 Neurology 14 todd Morales 2022-12-15 2022-12-15 [facility] [id number] 13:00:00 23:59:59 Merritt 14 Cesar 2022-12-15 2022-12-15 Outpatient MHIE MHIE [id number] [facility] 13:00:00 13:00:00 14 todd Morales 2022-11-28 2022-11-29 Outpatient MHIE MNA [id number] [facility] 19:30:00 04:59:59 Neurology 13 todd Morales 2022-11-28 2022-11-29 Outpatient MHIE MNA [id number] [facility] 19:30:00 04:59:59 Neurology 13 todd Morales 2022-11-28 2022-11-28 [facility] [id number] 14:30:00 23:59:59 Merritt 13 Cesar 2022-11-28 2022-11-28 Outpatient MHIE MHIE [id number] [facility] 14:30:00 14:30:00 13 todd Morales 2022-08-25 2022-08-26 Outpatient MHIE MNA [id number] [facility] 17:45:00 05:59:59 Neurology 11 l Andrés Morales 2022-08-25 2022-08-26 Outpatient MHIE MNA [id number] [facility] 17:45:00 05:59:59 Neurology 11 l Andrés Morales 2022-08-25 2022-08-25 Outpatient DANIA DerasSCHER MHMISCHER [id number] 11:45:00 23:59:59 Merritt 11 Cesar 2022-08-25 2022-08-25 Outpatient MHIE MHIE [id number] [facility] 11:45:00 11:45:00 11 l Andrew 2022-08-03 2022-08-03 Ambulatory MHIE MNA [id number] [facility] 17:15:00 17:15:00 Pre-Reg Neurology 10 l Andrés Morales 2022-08-03 2022-08-03 Ambulatory MHIE MNA [id number] [facility] 17:15:00 17:15:00 Pre-Reg Neurology 10 l Andrés Morales 2022-08-03 2022-08-03 Outpatient MHIE MHIE [id number] [facility] 11:15:00 11:15:00 10 todd Morales 2022-08-03 2022-08-03 Outpatient DANIA DerasSCHER MHMISCHER [id number] 11:15:00 11:15:00 Merritt 10 Cesar 2022-07-27 2022-07-27 Outpatient EL Sudheer-Her [facility] [id number] [facility] 16:22:00 16:22:00 Hallie salcedo 46 [facility] 2022-07-21 2022-07-22 Inpatient EILEEN GrewalangelesbrendaJOSECL INTE [id number] [facility] 05:12:00 11:48:[address] 2022-06-03 2022-06-04 Outpatient MHIE MNA [id number] [facility] 17:15:00 05:59:59 Neurology 09 todd Canoann 2022-06-03 2022-06-04 Outpatient MHIE MNA [id number] [facility] 17:15:00 05:59:59 Neurology 09 todd Morales 2022-06-03 2022-06-03 Outpatient DANIA DerasSCHER MHMISCHER [id number] 11:15:00 23:59:59 Merritt 09 Cesar 2022-06-03 2022-06-03 Outpatient MHIE MHIE [id number] [facility] 11:15:00 11:15:00 09 todd Morales 2022-04-12 2022-04-12 Ambulatory nullFlavo MNA [id number] [facility] 15:00:00 15:00:00 Pre-Reg r Neurology 06 l Andrés Morales 2022-04-12 2022-04-12 Ambulatory nullFlavo MNA [id number] [facility] 15:00:00 15:00:00 Pre-Reg r Neurology 06 l Andrés Morales 2022-04-12 2022-04-12 Outpatient MHIE MHIE [id number] [facility]oria 10:00:00 10:00:00 06 todd Morales 2022-04-12 2022-04-12 [id number] 10:00:00 10:00:00 Merritt 06 Cesar 2022-04-11 2022-04-12 Outpatient nullFlavo MNA [id number] [facility] 15:00:00 04:59:59 r Neurology 07 l Andrés Morales 2022-04-11 2022-04-12 Outpatient nullFlavo MNA [id number] [facility] 15:00:00 04:59:59 r Neurology 07 l Andrés Andrew 2022-04-11 2022-04-11 [facility] [id number] 10:00:00 23:59:59 Merritt Porfirio Guerrero 2022-04-11 2022-04-11 Outpatient MHIE MHIE [id number] [facility]oria 10:00:00 10:00:00 07 todd Morales 2022-01-12 2022-01-14 Inpatient LORI Esparza INTE [id number] [facility] 18:19:00 15:56:00 Rj 45 [facility] 2022-01-12 2022-01-14 Inpatient LORI Esparza INTE [id number] [facility] 18:19:00 15:56:00 Rj [id number] [facility] 2021-11-03 2021-11-03 Inpatient LORI Russell OUTD [id number] [facility] 04:56:00 04:56:00 Devon 31 [facility] 2021-10-07 2021-10-08 Outpatient nullFlavo MNA [id number] [facility] 15:30:00 04:59:59 r Neurology 05 todd Morales 2021-10-07 2021-10-08 Outpatient nullFlavo MNA [id number] [facility] 15:30:00 04:59:59 r Neurology 05 todd Morales 2021-10-07 2021-10-07 Outpatient PATTI DerasMISCHER MISCHER [id number] 10:30:00 23:59:59 Merritt 05 Cesar 2021-10-07 2021-10-07 Outpatient MHIE MHIE [id number] [facility]oria 10:30:00 10:30:00 05 todd Morales 2021-08-04 2021-08-06 Inpatient JOSE RussellCL [facility] [id number] [facility] 21:05:00 12:24:00 Devon 94 [facility] 2021-05-14 2021-05-15 Outpatient nullFlavo MNA [id number] [facility] 15:30:00 04:59:59 r Neurology 04 l Andrés Morales 2021-05-14 2021-05-15 Outpatient nullFlavo MNA [id number] [facility] 15:30:00 04:59:59 r Neurology 04 l Andrés Morales 2021-05-14 2021-05-14 Outpatient DANIA DerasSCHER MHMISCHER [id number] 10:30:00 23:59:59 Merritt 04 Cesar 2021-05-14 2021-05-14 Outpatient MHIE MHIE [id number] [facility]oria 10:30:00 10:30:00 04 todd Morales 2021-05-07 2021-05-12 [facility] [id number] [facility] 22:34:00 14:15:00 Benitoopher 86 Cl [facility] 2021-05-03 2021-05-05 Inpatient JOSE RussellCL [facility] [id number] [facility] 10:30:00 05:25:00 Deovn 50 [facility] 2021-03-03 2021-03-03 [place] [address].2.840.1 [id number] Methodi 09:20:50 23:59:00 Encounter Garth [address].1.[address] 3.430.2.7 Hospit a .3.867693 l .8 2021-03-03 2021-03-03 [facility], 1.2.840.1 [id number] Methodi 09:15:00 09:19:00 Encounter Garth [address]389.1.[address] 3.430.2.7 Hospit a .3.806983 l .8 2021-03-03 2021-03-03 Travel 1.2.840.1 1.2.498.500 [id number] Methodi 00:00:00 00:00:[address] 3.430.2.7 0.2.7.3.698 Ho spita .3.486422 084.8 l .8 2021-02-11 2021-02-12 Outpatient nullFlavo MNA [id number] [facility] 15:15:00 04:59:59 r Neurology 03 l Andrés Morales 2021-02-11 2021-02-12 Outpatient nullFlavo MNA [id number] [facility] 15:15:00 04:59:59 r Neurology 03 l Andrés Morales 2021-02-11 2021-02-11 [facility] [id number] 10:15:00 23:59:59 Merritt 03 Cesar 2021-02-11 2021-02-11 Outpatient IE IE [id number] [facility]oria 10:15:00 10:15:00 03 l Andrew 2021-02-08 2021-02-08 Travel 1.2.840.1 1.2.558.901 [id number] Methodi 00:00:00 00:00:[address] 3.430.2.7 0.2.7.3.698 Ho spita .3.142440 084.8 l .8 2021-02-03 2021-02-03 Transcribe [facility] 1.2.840.1 [id number] Methodi 00:00:00 00:00:00 Orders Garth [address]1.[address] 3.430.2.7 Hospit a .3.047887 l .8 2020-11-12 2020-11-13 Outpatient nullFlavo MNA [id number] [facility] 15:00:00 04:59:59 r Neurology 02 l Gooding Andrew 2020-11-12 2020-11-13 Outpatient nullFlavo MNA [id number] [facility] 15:00:00 04:59:59 r Neurology 02 l Gooding Alexander 2020-11-12 2020-11-12 Outpatient Augusta [facility] [id number] 10:00:00 23:59:59 Merritt 02 Cesar 2020-11-12 2020-11-12 Outpatient MHIE IE [id number] [facility]oria 10:00:00 10:00:00 02 todd Andrew 2020-11-03 2020-11-04 Outpatient nullFlavo MNA [id number] [facility] 18:00:00 04:59:59 r Neurology 01 l Gooding Andrew 2020-11-03 2020-11-04 Outpatient nullFlavo MNA [id number] [facility] 18:00:00 04:59:59 r Neurology 01 l Andrés Morales 2020-11-03 2020-11-03 [facility] [id number] 13:00:00 23:59:59 Merritt Cesar 2020-11-03 2020-11-03 Outpatient MHIE IE [id number] [facility]oria 13:00:00 13:00:00 01 todd Andrew 2020-10-15 2020-10-16 Outpatient nullFlavo MNA [id number] [facility] 16:30:00 04:59:59 r Neurology 00 l Andrés Morales 2020-10-15 2020-10-16 Outpatient nullFlavo MNA [id number] [facility] 16:30:00 04:59:59 r Neurology 00 l Andrés Morales 2020-10-15 2020-10-15 [id number] 11:30:00 23:59:59 Merritt 00 Cesar 2019-04-24 2019-05-03 Inpatient 3 KARLO BONILLA CVAlicja [id number] [facility] 20:39:00 11:00:00 CRISTIAN [id number] [facility] itation [place] Results Test Description Test Time Test Comments Results Result Comments Source BASIC METABOLIC PANEL 2023-02-28 04:52:00 Test Item Value Reference Range Interpretation Comme nts SODIUM (test code = NA) 139 mmol/L 134-147 N POTASSIUM (test code = K) 4.1 mmol/L 3.4-5.0 N CHLORIDE (test code = CL) 105 mmol/L 100-108 N CARBON DIOXIDE (test code = 31 mmol/L 21-32 N CO2) ANION GAP (test code = GAP) 3.0 GAP calc 4.0-15.0 L GLUCOSE (test code = GLU) 128 MG/DL 70-110 H BLOOD UREA NITROGEN (test 23 MG/DL 7-18 H code = BUN) GLOMERULAR FILTRATION RATE 52 estGFR >60 L T he Glomerular Filtration Rate (test code = GFR) is a calcu lated parameterbased on serum Creati nine, patient age and sex. GFR va luesless than 60 mL/min/1.73 squ are meters are indicative ofCh ronic Kidney Disease. Values less than 15 mL/min/1.73squa re meters indicate Kidney failure. The calculation for GFR is based on the CKD-EPI (20 21) calculation. This formulais race indifferent and is the [place] mmended formula for GFRby the [facility] for Adults.The GFR will not calcul ate if the sex is unknown or if t hepatient's age is <18 years. CREATININE (test code = 1.1 MG/DL 0.6-1.0 H CREAT) CALCIUM (test code = CA) 9.0 MG/DL 8.5-10.1 N [id number] 04:52:00 Test Item Value Reference Range Interpretation Comments CREATININE (test code = CREAT) 1.0 MG/DL 0.6-1.0 N Comment: Stat creatinine if not already performedCBC W/AUTO [id number] 04:49:00 Test Item Value Reference Range Interpretation Comments WHITE BLOOD CELL (test code = 14.3 K/mm3 3.5-11.0 H WBC) RED BLOOD CELL (test code = 3.65 M/mm3 4.70-6.10 L RBC) HEMOGLOBIN (test code = HGB) 11.4 G/DL 10.4-14.9 N HEMATOCRIT (test code = HCT) 33.6 % 31.5-44.1 N MEAN CELL VOLUME (test code = 92.1 Fl 84.5-98.6 N MCV) MEAN CELL HGB (test code = MCH) 31.2 pg 27.0-34.2 N MEAN CELL HGB CONCETRATION 33.9 G/DL 31.5-34.0 N (test code = MCHC) RED CELL DISTRIBUTION WIDTH 12.9 SD 11.5-14.5 N (test code = RDW) PLATELET COUNT (test code = 134 K/mm3 150-450 L PLT) MEAN PLATELET VOLUME (test code 10.10 fL 7.0-10.5 N = MPV) NEUTROPHIL % (test code = NT%) 88.3 % 40-76 H IMMATURE GRANULOCYTE % (test 0.3 % 0.0-5.0 N code = IG%) LYMPHOCYTE % (test code = LY%) 4.9 % 20.5-51.1 L MONOCYTE % (test code = MO%) 6.4 % 1.7-9.3 N EOSINOPHIL % (test code = EO%) 0.0 % 0.0-6.0 N BASOPHIL % (test code = BA%) 0.1 % 0.0-2.0 N NUCLEATED RBC % (test code = 0.0 /100WBC% 0.0-1.0 N NRBC%) NEUTROPHIL # (test code = NT#) 12.6 K/mm3 1.8-7.6 H IMMATURE GRANULOCYTE # (test 0.05 x10 3/uL 0.00-0.03 H code = IG#) LYMPHOCYTE # (test code = LY#) 0.7 K/mm3 0.6-3.2 N MONOCYTE # (test code = MO#) 0.9 K/mm3 0.3-1.1 N EOSINOPHIL # (test code = EO#) 0.0 K/mm3 0.0-0.4 N BASOPHIL # (test code = BA#) 0.0 K/mm3 0.0-0.1 N NUCLEATED RBC # (test code = 0.0 K/mm3 0.0-0.1 N NRBC#) MANUAL DIFF REQUIRED (test code NO DIFF/SCN CRITERIA = MDIFF) PROTHROMBIN [id number] 09:50:00 Test Item Value Reference Range Interpretation Comments PT PATIENT (test 10.6 SECONDS 9.3-12.9 N code = PTP) INTERNATIONAL NORMAL 0.96 INR Unit 0.8-1.2 N TARGE T INR BY RATIO [...] prevent systemic emboli sm), Valvular heart disease, Acute Myocardial Infa rction (to prevent sys temic embolism), Valv ular heart disease, Atrial Fibrillation, Bileaflet mecha nical valve in aortic position.2. Mec hanical prosthetic valv es (high risk), 2. 5 - 3.5 Presence of Lup us Anticoagulant o r Antiphospholipi d Antibodies, Pre vention of systemic emb olism - Acute Myocardia l Infarction (to prevent recurrent infar ct). THROMBOPLASTIN TIME [id number] 09:50:00 Test Item Value Reference Range Interpretation Comments THROMBOPLASTIN TIME PARTIAL 24.7 SECONDS 26-35 L (test code = PTT) CBC W/AUTO [id number] 09:49:00 Test Item Value Reference Range Interpretation Comments WHITE BLOOD CELL (test code = 9.2 K/mm3 3.5-11.0 N WBC) RED BLOOD CELL (test code = 4.61 M/mm3 4.70-6.10 L RBC) HEMOGLOBIN (test code = HGB) 14.2 G/DL 10.4-14.9 N HEMATOCRIT (test code = HCT) 42.5 % 31.5-44.1 N MEAN CELL VOLUME (test code = 92.2 Fl 84.5-98.6 N MCV) MEAN CELL HGB (test code = MCH) 30.8 pg 27.0-34.2 N MEAN CELL HGB CONCETRATION 33.4 G/DL 31.5-34.0 N (test code = MCHC) RED CELL DISTRIBUTION WIDTH 12.9 SD 11.5-14.5 N (test code = RDW) PLATELET COUNT (test code = 173 K/mm3 150-450 N PLT) MEAN PLATELET VOLUME (test code 10.20 fL 7.0-10.5 N = MPV) NEUTROPHIL % (test code = NT%) 76.1 % 40-76 H IMMATURE GRANULOCYTE % (test 0.5 % 0.0-5.0 N code = IG%) LYMPHOCYTE % (test code = LY%) 14.1 % 20.5-51.1 L MONOCYTE % (test code = MO%) 5.5 % 1.7-9.3 N EOSINOPHIL % (test code = EO%) 3.3 % 0.0-6.0 N BASOPHIL % (test code = BA%) 0.5 % 0.0-2.0 N NUCLEATED RBC % (test code = 0.0 /100WBC% 0.0-1.0 N NRBC%) NEUTROPHIL # (test code = NT#) 7.0 K/mm3 1.8-7.6 N IMMATURE GRANULOCYTE # (test 0.05 x10 3/uL 0.00-0.03 H code = IG#) LYMPHOCYTE # (test code = LY#) 1.3 K/mm3 0.6-3.2 N MONOCYTE # (test code = MO#) 0.5 K/mm3 0.3-1.1 N EOSINOPHIL # (test code = EO#) 0.3 K/mm3 0.0-0.4 N BASOPHIL # (test code = BA#) 0.1 K/mm3 0.0-0.1 N NUCLEATED RBC # (test code = 0.0 K/mm3 0.0-0.1 N NRBC#) MANUAL DIFF REQUIRED (test code NO DIFF/SCN CRITERIA = MDIFF) BASIC METABOLIC [id number] 09:29:00 Test Item Value Reference Range Interpretation Comments SODIUM (test code = 137 mmol/L 134-147 N NA) POTASSIUM (test 4.1 mmol/L 3.4-5.0 N code = K) CHLORIDE (test code 104 mmol/L 100-108 N = CL) CARBON DIOXIDE 31 mmol/L 21-32 N (test code = CO2) ANION GAP (test 2.0 GAP calc 4.0-15.0 L code = GAP) GLUCOSE (test code 109 MG/DL 70-110 N = GLU) BLOOD UREA NITROGEN 24 MG/DL 7-18 H (test code = BUN) GLOMERULAR 52 estGFR >60 L The Glomerular FILTRATION RATE Filtration R ate is a (test code = GFR) calculated parameterbased on serum Creatinin e, patient age and sex. GFR valuesless than 60 mL/min/1.73 squ are meters are luz maria cative ofChronic Kidne y Disease. Values less than 15 mL/min/1.73squa re meters indicate Kidney failure. The calculation for GFR is based on the CK D-EPI (2020) calculat ion. This formulais race indifferent and is the recommended for nadir for GFRby the [facility] Foundati on for Adults.The GFR will not calculate i f the sex is unknown or if thepatient's ag e is <18 years. CREATININE (test 1.1 MG/DL 0.6-1.0 H code = CREAT) CALCIUM (test code 9.7 MG/DL 8.5-10.1 N = CA) - XR CHEST 1 [id number] 08:47:00 [facility] : 1945 Sex: F Name: MOISE MAURICE [facility] : 1945 Age/S: 77 / F [address] Unit #: [id number] Loc: [place] [address] Phys: Bonifacio Perez MD Acct: [id number] Dis Date: Status: ADM IN PHONE #: [phone] Exam Date: 02/27/2023 0837 FAX #: Reason: SURGERY EXAMS: CPT: [id number] XR CHEST 1 V 54923 Fluoro Time: DAP (Gy m2): Air Kerma (mGy): Chest Radiograph History: SURGERY Comparison: July 19, 2022 Location: H45 A single frontal view of the chest is submitted. The heart appears unchanged in size. Pulmonary vasculature is unremarkable. The visualized lung maurer appear to be free of disease. Thebones appear unchanged. IMPRESSION: There is no radiographic evidence of acute cardiopulmonary disease. at 0847 Reported and signed by: Marcelino Valdes M.D. CC: Mayte Valle MD; Hallie Charles LEAD WELDER; Bonifacio Perez MDPAGE 1 Signed Report Name: MOISE NAYAK [facility] : 1945 Age/S: 77 / F [address] Unit #: [id number] Loc: [place] [address] Phys: Bonifacio Perez MD Acct: [id number] Dis Date: Status: ADM IN PHONE #: [phone] Exam Date: 02/27/2023 0837 FAX #: Reason: SURGERY EXAMS: CPT: [id number] XR CHEST 1 V 46387 Fluoro Time: DAP (Gy m2): Air Kerma (mGy): (Continued) Technologist: Kassy Kraft Trnscb Date/Time: 02/27/2023 (0847) tTOÑO Orig Print D/T: S: 02/27/2023 (0850) PAGE 2 Signed Report- HEAD AND [id number] 17:00:00 [facility] : 1945 Sex: F FAX: Yumiko Mayer [phone] [place]: St: REG Name: MOISE NAYAK [facility] : 1945 Age/S: 76/F [address] [facility] Unit #: [id number] Loc: [place], [place]: [place] [address] Acct: [id number] Dis Date: Status: REG CLI PHONE #: [phone] Exam Date: 07/27/2022 1651 FAX#: [phone] Reason: LOCALIZED SWELLING,MASS,LUMP/HEMATOMA EXAMS: CPT CODE: [id number] US HEAD AND NECK 60891 EXAM: - US HEAD AND NECK LOCATION: U19 HISTORY: LOCALIZED SWELLING,MASS,LUMP/HEMATOMA COMPARISON: Carotid ultrasound 07/19/2022 TECHNIQUE: Real time [...] CC: Hallie Charles NP Technologist: ANDRIA HOSKINS Trnscrd Date/Time/By: 07/27/2022 (1700) : By: [email or web address] PAGE 1Signed Report FAX: Yumiko Charles [phone] [place]: St: REG Name: MOISE NAYAK [facility] : 1945 Age/S: 76/F [address] [facility] Unit #: [id number] Loc: [place] Phys: Hallie Charles LEAD WELDER [address] Acct: [id number] Dis Date: Status: REG CLI PHONE #: [phone] Exam Date: 07/27/2022 1651 FAX #: [phone] Reason: LOCALIZED SWELLING,MASS,LUMP/HEMATOMA EXAMS: CPT CODE: [id number] HEAD AND NECK 82338 (Continued) Orig Print D/T: S: 07/27/2022 (1703) PAGE 2 Signed ReportSURGICAL 2022-07-22 15:10:00 Test Item Value Reference Range Interpretation Comments SURGICAL (test code = SR) -----RUN DATE: 07/22/22 [place] - [facility] PAGE 1 RUN TIME: 1510 Specimen Inquiry RUN USER: INTERFACE -----PATIENT: MOISE NAYAK LOC: VERONICA U #: [id number] AGE/SX: 76/F [facility] DR: Rboert Gold : 45 BED: 1 DIS: 07/22/22 STATUS: DIS IN TLOC: ----- SPEC #: [id number] RECD: 07/21/22 STATUS: ZONIA REGhislaine #: [id number] YOHAN: 07/21/22- SUBM DR: Robert Gold MD ENTERED: 07/21/22 SP TYPE: SURGICAL OTHR DR: Garth Hopkins MD, Anas MDORDERED: 94636, ANATOMIC SPEC COPIES TO: Robert Gold MD [address] [place] [address]. [address] [place] [address] Garth Hopkins MD [address] [place] [address] Chi Valencia MD [address] [place] [address] PROCEDURES: 53946 (07/21/22) TISSUES: A. CAROTID PLAQUE WITH DECAL CLINICAL HISTORY SAME FINAL DIAGNOSIS Carotid plaque, left, endarterectomy: Atherosclerotic plaque with calcification. GROSS DESCRIPTION Received in formalin labeled "left carotid artery "are 2 segments of lehman-yellowatherosclerotic plaques , up to 3.4 cm in length, 0.8 cm in diameter, with representativesections submitted (A). Technical component performed at [facility],[address] [place] [address] Unless gross only, the diagnosis is based upon microscopic examination. CONTINUED ON NEXT PAGE -----RUN DATE: 07/22/22 [facility] - [facility] PAGE 2 RUN TIME: 1510 Specimen Inquiry RUN USER: INTERFACE -----SPEC #: [id number] PATIENT: MOISE NAYAK #[id number] (Continued) GROSS DESCRIPTION (Continued) Immunohistochemistry: This test was developed and its [...] LEFT CAROTID ARTERY Signed SIGNATURE ON FILE EvansMannycristino 07/22/22 1510 ----- END OF REPORT CBC W/AUTO [id number] 06:49:00 Test Item Value Reference Range Interpretation [...] (test code NO = MDIFF) BASIC METABOLIC [id number] 06:18:00 Test Item Value Reference Range Interpretation [...] 8.8 mg/dL 8.0-10.5 N CA) BASIC METABOLIC [id number] 09:59:00 Test Item Value Reference Range Interpretation [...] the recommended for nadir for GFRby the [facility] Kidney Foundati on for Adults.The GFR will not calculate if th e sex is unknown or if thepatient's ag e is <18 years. 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 UA RFLX MICR CULT IF [id number] 13:20:00 Test Item Value Reference Range Interpretation [...] culture: Flank PainSpecimen Description: CLEAN CATCHCOMPREHENSIVE METABOLIC [id number] 13:13:00 Test Item Value Reference Range Interpretation [...] = HGBA1C%) 5.2 %A1C 4.8-6.0 N PROTHROMBIN [id number] 12:55:00 Test Item Value Reference Range Interpretation [...] Mec hanical prosthetic valv es (high risk), 2 .5 - 3.5 Presence of Lupus Anticoagulant o r Antiphospholipi d Antibodies, Pre vention of systemic emb olism - Acute Myocardia l Infarction (to prevent recurrent infar ct). THROMBOPLASTIN TIME [id number] 12:55:00 Test Item Value Reference Range Interpretation Comments THROMBOPLASTIN TIME 26.4 Seconds 25.0-39.5 N Therape utic Range: PARTIAL (test code = 50.4 - 88.3 Seconds PTT) Effective 10/30/2018 CBC W/AUTO [id number] 12:45:00 Test Item Value Reference Range Interpretation [...] code NO = MDIFF) - DUP EXTRACRANIAL [id number] 00:00:00 [facility] NEISHA WINGName: MOISE NAYAK : 1945 Sex: F Name: MOISE NAYAK [facility] Neisha Wing : 1945 Age/S: 76 / F [address] [place] [address] Blvd Unit #: [id number] Loc: [place] [address] Phys: Robert Gold MD Acct: [id number] Dis Date: Status: PRE IN PHONE #: [phone] Exam Date: 07/19/2022 1358 FAX #: [phone] Reason: 165.22. EXAMS: CPT CODE: [id number] DUP EXTRACRANIAL DIGNA 29216 PROCEDURE INFORMATION: Exam: US Duplex Bilateral Extracranial Arteries, Carotid Arteries Exam date and time: 07/19/2022 1:15 PM Age: 76 years old Clinical indication: Occlusion and stenosis of left carotid artery; Additional info: 165.22. TECHNIQUE: Imaging protocol: Real-time Duplex ultrasound scan of the bilateral carotid and vertebral arteries combining arroyo s new, color Doppler and spectral waveform analysis. Bilateral [...] lumen. at 1603 Reported and signed by: Jaems Orr M.D. PAGE 1 Signed Report (CONTINUED) Name: MOISE NAYAK [facility] Neisha Wing : 1945 Age/S: 76 / F [address] [place] [address] Blvd Unit #: [id number] Loc: [place] [address] Phys: Robert Gold MD Acct: [id number] Dis Date: Status: PRE IN PHONE #: [phone] Exam Date: 07/19/2022 1358 FAX #: [phone] Reason: 165.22. EXAMS: CPT CODE: [id number] DUP EXTRACRANIAL DIGNA 57657 (Continued) CC: Robert Gold MD Technologist: Janice Meneses RDMS(AB) Trnscb Date/Time: (1602) [email or web address] Orig Print D/T: S: 07/19/2022 (1602) Probe: PAGE 2 Signed Report- XR CHEST 2 [id number] 00:00:00 [facility] : 1945 Sex: F FAX:Robert Watt [phone] [place]: St: PRE Name: MOISE NAYAK [facility] : 1945 Age/S: 76/F [address] [place] [address] Unit #: [id number] Loc: [place] [address] Phys: Robert Gold MD Acct: [id number] Dis Date: Status: PRE IN PHONE #: [phone] Exam Date: 07/19/20227 FAX #: [phone] Reason: PREOP EXAMS: CPT CODE: [id number] XR CHEST 2 V 93177 PROCEDURE INFORMATION: Exam: XR Chest Exam date [...] MD Technologist: RT Rhianna(Vahid) Trnscrd Date/Time/By: 07/19/2022 (0622) : By: [email or web address] PAGE 1 Signed ReportSURGICAL 2022-01-18 15:32:00 Test Item Value Reference Range Interpretation Comments SURGICAL (test code = SR) R UN DATE: 01/18/22 [facility] - [facility] PAGE 1 RUN TIME: 1532 Specimen Inquiry RUN USER: INTERFACE P ATIENT: NAMPAULINAMOISE LOC: MARYU U #: [id number] AGE/SX: 76/F [facility] RE01/12/22REG DR: Rj Evans DO : [birth year] BED: 1 DIS: 01/14/22 STATUS: DIS IN TLOC: SPEC #: [id number] RECD: 01/14/22-1157 STATUS: SOUT REQ #: [id number] YOHAN: 01/13/22- SUBM DR: Rj Evans DO ENTERED: 01/14/22-115 SP TYPE: SURGICAL OTHR DR: Edyta Reynolds MD, Abdul Hannan MD Dalal,Chi Fields MD, MD, Saleem MDORDERED: 04143, ANATOMIC SPEC COPIES TO: Edyta Reynolds MD [address] [place] [address] Robert Gold MD [address] [facility] [place] [address] Garth Hopkins MD [address] [facility] [place] [address] Chi Valencia MD [address] [place] [address] Devon Moses MD [address] [employer] [employer] [facility] [address] [place] [address] Rj Evans DO [address] [place] [address] PROCEDURES: 11334 (01/14/22) TISSUES: A. ARTERY, ATHEROMATOUS PLAQUE - RT CONTINUED ON NEXT PAGE R UN DATE: 01/18/22 [facility] PAGE 2 RUN TIME: 1532 Specimen Inquiry RUN USER: INTERFACE S PEC #: [id number] PATIENT: MOISE NAYAK #[id number] (Continued) CLINICAL HISTORY SAME FINAL DIAGNOSIS Right carotid plaque, segment: Atherosclerotic plaque. GROSS DESCRIPTION Received is 1 segment of arroyo-white fibrotic tissue measuring 3.1 cm in largest dimension. Sections are submitted. Technical component performed at [facility],[address] [place] [address], [place] [address] Unless gross only, the diagnosis is based [...] 01/18/22 1532 END OF REPORT BASIC METABOLIC [id number] 05:12:00 Test Item Value Reference Range Interpretation [...] code = 8.2 mg/dL 8.0-10.5 N CA) [id number] 05:12:00 Test Item Value Reference Range Interpretation Comments MAGNESIUM (test code = MAG) 2.54 mg/dL 1.80-2.40 H CBC W/AUTO [id number] 04:59:00 Test Item Value Reference Range Interpretation [...] (test code NO = MDIFF) BASIC METABOLIC [id number] 18:30:00 Test Item Value Reference Range Interpretation [...] code = 8.0 mg/dL 8.0-10.5 N CA) [id number] 18:30:00 Test Item Value Reference Range Interpretation Comments PHOSPHOROUS (test code = PHOS) 3.1 MG/DL 2.5-4.9 N [id number] 18:30:00 Test Item Value Reference Range Interpretation Comments MAGNESIUM (test code = MAG) 1.47 mg/dL 1.80-2.40 L CALCIUM [id number] 18:30:00 Test Item Value Reference Range Interpretation Comments CALCIUM IONIZED (test code = ETHAN) 1.21 MMOL/L 1.12-1.32 N CBC W/AUTO [id number] 18:11:00 Test Item Value Reference Range Interpretation [...] (test NO code = MDIFF) BASIC METABOLIC [id number] 15:19:00 Test Item Value Reference Range Interpretation [...] = 8.3 mg/dL 8.0-10.5 N CA) HGB [id number] 14:35:00 Test Item Value Reference Range Interpretation Comments HEMOGLOBIN (test code = HGB) 10.4 g/dL 11.0-15.0 L HEMATOCRIT (test code = HCT) 30.5 % 33.0-45.0 L [id number] 13:05:00 Test Item Value Reference Range Interpretation Comments ACT-ISTAT (test code 347 SEC 74-137 H Perform ed by certified = ACTI) 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 THROMBOPLASTIN TIME [id number] 10:22:00 Test Item Value Reference Range Interpretation Comments THROMBOPLASTIN TIME 22.6 Seconds 25.0-39.5 L Therape utic Range: PARTIAL (test code = 50.4 - 88.3 Seconds PTT) Effective 10/30/2018 CBC W/AUTO [id number] 09:58:00 Test Item Value Reference Range Interpretation [...] code = MDIFF) COVID 19 Asymptomatic IH [id number] 07:05:00 Test Item Value Reference Range Interpretation [...] waivedcomplexit y tests. - XR CHEST 2 [id number] 00:00:00 [facility] : 1945 Sex: F FAX: Yumiko Mayer [phone] [place]: St: [facility] FAX: Devon Reese MD [phone] FAX: Rj Evans DO Name: MOISE NAYAK [facility] [place] : 1945 Age/S: 76/F [address] [place] [address] Blvd Unit #: [id number] Loc: [place] [address] Phys: Hallie Mayer NP Acct: [id number] Dis Date: Status: ADM INPHONE #: [phone] Exam Date: 01/13/2022 1001 FAX #: [phone] Reason: PREOP CEA EXAMS: CPT CODE: [id number] XR CHEST 2 V 19968 PROCEDURE INFORMATION: Exam: XR Chest Exam date [...] by: Renee Mcknight M.D. CC: Hallie Charles LEAD WELDER; Devon Moses MD; Rj Evans DO Technologist: RT Lizbet(R) Trnscrd Date/Time/By: 01/13/2022 (6418) : By: Martin.[email or web address] Orig Print D/T: S: 01/13/2022 (0738) PAGE 1 Signed ReportBASIC METABOLIC [id number] 13:29:00 Test Item Value Reference Range Interpretation [...] = 9.7 mg/dL 8.0-10.5 N CA) PROTHROMBIN [id number] 13:21:00 Test Item Value Reference Range Interpretation [...] (to prevent recurrent infar ct). 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 [facility] [id number] 11:07:00 Test Item Value Reference Range Interpretation Comments ACT-ISTAT (test code 255 SEC 74-137 H Perform ed by certified = ACTI) 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 CBC W/AUTO [id number] 14:37:00 Test Item Value Reference Range Interpretation [...] NO = MDIFF) - XR CHEST 2 [id number] 00:00:00 [facility] : 1945 Sex: F FAX:Devon Reese MD [phone] [place]: St: PRE Name: MOISE NAYAK [facility] : 1945 Age/S: 75/F [address] [place] [address] Bl Unit #: [id number] Loc: [place] [address] Phys: Devon Moses MD Acct: [id number] Dis Date: Status: PRE SDC PHONE #: [phone] Exam Date: 11/01/2021 1342 FAX #: [phone] Reason: PREOP EXAMS: CPT CODE: [id number] XR CHEST 2 V 82261 PROCEDURE INFORMATION: Exam: XR Chest Exam date and time: 11/01/2021 1:38 PM Age: 75 years old Clinical indication: Pre-operative exam; Respiratory screening exam; Additional info: Preop TECHNIQUE: Imaging protocol: XR of the chest. Views: 2 vi ews. PA and Lateral COMPARISON: DX XR CHEST 2 V 08/02/2021 12:55 PM FINDINGS: Lungs: No consolidation. Pleural spaces: No pleural effusion. Heart/Mediastinum: The heart and vascular markings are withinlimits of normal. There is atherosclerotic calcification of the aorta. Bones/joints: No gross acute f indings. IMPRESSION: No acute cardiopulmonary findings at 1619 Reported and signed by: Jose Bonilla D.O. CC: Devon Moses MD Technologist: Leena Brown RT(R) Trnscrd Date/Time/By: 11/01/2021 (2204) : By: [email or web address] Orig Print D/T: S: 11/01/2021 (1400) PAGE 1 Signed ReportHGB [id number] 08:45:00 Test Item Value Reference Range Interpretation Comments HEMOGLOBIN (test code = HGB) 8.9 g/dL 11.0-15.0 L HEMATOCRIT (test code = HCT) 27.4 % 33.0-45.0 L B-TYPE NATRIURETIC [id number] 15:10:00 Test Item Value Reference Range Interpretation Comments B-TYPE NATRIURETIC PEPTIDE (test 59.0 PG/ML 0-100 N code = BNP) BASIC METABOLIC [id number] 14:55:00 Test Item Value Reference Range Interpretation [...] 8.7 mg/dL 8.0-10.5 N CA) CBC W/AUTO [id number] 14:39:00 Test Item Value Reference Range Interpretation [...] DIFF REQUIRED (test code NO = MDIFF) [id number] 19:05:00 Test Item Value Reference Range Interpretation Comments ACT-ISTAT (test code 154 SEC 74-137 H Perform ed by certified = ACTI) 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 [facility] [id number] 17:59:00 Test Item Value Reference Range Interpretation Comments ACT-ISTAT (test code 178 SEC 74-137 H Perform ed by certified = ACTI) 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 [facility] [id number] 17:08:00 Test Item Value Reference Range Interpretation Comments ACT-ISTAT (test code 207 SEC 74-137 H Perform ed by certified = ACTI) 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 [facility] [id number] 16:04:00 Test Item Value Reference Range Interpretation Comments ACT-ISTAT (test code 243 SEC 74-137 H Perform ed by certified = ACTI) 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 CBC W/AUTO [id number] 14:46:00 Test Item Value Reference Range Interpretation [...] NO = BETITO) - XR CHEST 2 [id number] 00:00:00 [facility] : 1945 Sex: F FAX:Devon Reese MD [phone] [place]: St: PRE Name: MOISE NAYAK [facility] : 1945 Age/S: 75/F [address] [place] [address] Unit #: [id number] Loc: [place] [address] Phys: Dveon Moses MD Acct: [id number] Dis Date: Status: [facility] PHONE #: [phone] Exam Date: 08/02/2021 1340 FAX #: [phone]: PREOP EXAMS: CPT CODE: [id number] XR CHEST 2 V [id number] PROCEDURE INFORMATION: Exam: XR Chest Exam date and time: 08/02/2021 12:55 PM Age: 75 years old Clinical indication: Screening exam; Pre-operative exam; Cardiovascular screening; Additional info: Preop TECHNIQUE: Imaging protocol: XR of the chest. Views: 2 views. PA and Lateral COMPARISON: DX XR CHEST 2 V 05/03/2021 11:44 AM FINDINGS: Lungs:No consolidation. Pleural spaces: No pleural effusion. Heart/Mediastinum: The heart and vascular markings are within limits of normal. There is atherosclerotic calcification of the aorta. Bones/joints:No gross acute findings. IMPRESSION: No acute cardiopulmonary findings at 1418 Reported and signed by: Jose Bonilla D.O. CC: Devon Moses MD Technologist: RT Corrine(R) Trnscrd Date/Time/By: 08/02/2021 (9156) : By: [email or web address] Orig Print D/T: S: 08/02/2021 (3021) PAGE 1 Signed ReportCBC W/AUTO [id number] 08:01:00 Test Item Value Reference Range Interpretation [...] (test code NO = MDIFF) BASIC METABOLIC [id number] 07:50:00 Test Item Value Reference Range Interpretation [...] code = 9.5 mg/dL 8.0-10.5 N CA) [id number] 07:50:00 Test Item Value Reference Range Interpretation Comments MAGNESIUM (test code = MAG) 1.70 mg/dL 1.80-2.40 L BASIC METABOLIC [id number] 07:53:00 Test Item Value Reference Range Interpretation [...] code = 8.6 mg/dL 8.0-10.5 N CA) [id number] 07:53:00 Test Item Value Reference Range Interpretation Comments MAGNESIUM (test code = MAG) 1.68 mg/dL 1.80-2.40 L CBC W/AUTO [id number] 07:46:00 Test Item Value Reference Range Interpretation [...] (test code NO = MDIFF) CBC W/AUTO [id number] 08:42:00 Test Item Value Reference Range Interpretation [...] x10 3/uL 0.0-0.1 N NRBC#) BASIC METABOLIC [id number] 08:13:00 Test Item Value Reference Range Interpretation [...] code = 8.9 mg/dL 8.0-10.5 N CA) [id number] 08:13:00 Test Item Value Reference Range Interpretation Comments MAGNESIUM (test code = MAG) 1.49 mg/dL 1.80-2.40 L GLUCOSE [id number] 12:42:00 Test Item Value Reference Range Interpretation Comments GLUCOSE BEDSIDE (test 113 MG/DL 70-110 H Perfor med by certified code = GLUBED) 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 [facility] HGB [id number] 11:54:00 Test Item Value Reference Range Interpretation Comments HEMOGLOBIN (test code = HGB) 12.9 g/dL 11.0-15.0 N HEMATOCRIT (test code = HCT) 36.8 % 33.0-45.0 N CBC W/AUTO [id number] 08:27:00 Test Item Value Reference Range Interpretation [...] (test code NO = MDIFF) BASIC METABOLIC [id number] 08:04:00 Test Item Value Reference Range Interpretation [...] code = 9.3 mg/dL 8.0-10.5 N CA) [id number] 08:04:00 Test Item Value Reference Range Interpretation Comments MAGNESIUM (test code = MAG) 1.44 mg/dL 1.80-2.40 L COVID 19 Asymptomatic IH [id number] 19:17:00 Test Item Value Reference Range Interpretation [...] moderate, high or waivedcomplexit y tests. HGB [id number] 11:49:00 Test Item Value Reference Range Interpretation Comments HEMOGLOBIN (test TEST NOT 11.0-15.0 N Amended code = HGB) PERFORMED g/dL report. Disre austin previous result/results* Previously reported result : 11.9 g/dLEdited by: [email or web address] o n 10/23/21:1146 05/08/21 1146: HGB previously reported as: 11 .9 g/dL HEMATOCRIT (test TEST NOT 33.0-45.0 N Amended code = HCT) PERFORMED % report. Disrega rd previous result/results* Previously reported result : 35.3 %Edited by : [email or web address] on 05/08/21:1147 05/08/21 114: HCT previously reported as: 35 .3 % CBC W/AUTO [id number] 11:45:00 Test Item Value Reference Range Interpretation [...] (test code NO = MDIFF) BASIC METABOLIC [id number] 07:46:00 Test Item Value Reference Range Interpretation [...] mg/dL 8.0-10.5 N CA) PLT RESPONSE TO [id number] 00:38:00 Test Item Value Reference Range Interpretation [...] be rejected by our instrumentation . HGB [id number] 00:35:00 Test Item Value Reference Range Interpretation Comments HEMOGLOBIN (test code = HGB) 11.5 g/dL 11.0-15.0 N HEMATOCRIT (test code = HCT) 33.3 % 33.0-45.0 N - CT ABD PELVIS W/O [id number] 00:00:00 [facility] 1945 Sex: F Name: MOISE NAYAK [facility] : 1945 Age/S: 75 / F [address] [place] [address] Unit #: [id number] Loc: [place] [address] Phys: David Chong MD Acct: [id number] Dis Date: Status: ADM IN PHONE #: [phone] Exam Date: 05/08/2021 [facility] FAX #: [phone] Reason: abd pain, melena EXAMS: CPT CODE: [id number] CT ABD PELVIS W/O CONT 42832 PROCEDURE INFORMATION: Exam: CT Abdomen And Pelvis [...] mediastinum. The stomach is otherwise unremarkable. No smallbowel dilatation is present to suggest obstruction. Postoperative [...] 1 Signed Report (CONTINUED) Name: MOISE NAYAK [facility] : 1945 Age/S: 75 / F [address] [place] [address] Unit #: [id number] Loc: [place] [address] Phys: David Chong MD Acct: [id number] Dis Date: Status: ADM IN PHONE #: [phone] Exam Date: 05/08/2021 1534 FAX #: [phone] Reason: abd pain, melena EXAMS: CPT CODE: [id number] CT ABD PELVIS W/O CONT 57521 (Continued) IMPRESSION: 1. No acute CT abnormalities of the abdomen or pelvis are detected. SL:131 at 1706 Reported and signed by: Devin Freedman M.D. CC: David Chong MD Technologist:Rain Quezada, RT(R)(CT) CTDI: DLP: Trnscb Date/Time: 05/08/2021 (147) [email or web address] Orig Print D/T: S: 05/08/2021 (5345) PAGE 2 Signed ReportLACTIC [id number] 22:01:00 Test Item Value Reference Range Interpretation Comments LACTIC ACID (test code = LACT) 0.6 mmol/L 0.4-1.9 N BASIC METABOLIC [id number] 20:49:00 Test Item Value Reference Range Interpretation [...] 9.5 mg/dL 8.0-10.5 N CA) COMPREHENSIVE METABOLIC [id number] 20:49:00 Test Item Value Reference Range Interpretation [...] IUnit/L 20-125 N code = ALKP) PROTHROMBIN [id number] 20:43:00 Test Item Value Reference Range Interpretation [...] (to prevent recurrent infar ct). 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 BASIC METABOLIC [id number] 12:16:00 Test Item Value Reference Range Interpretation [...] 9.4 mg/dL 8.0-10.5 N CA) CBC W/AUTO [id number] 12:03:00 Test Item Value Reference Range Interpretation [...] 0.0-0.1 N NRBC#) - XR CHEST 2 [id number] 00:00:00 [facility] : 1945 Sex: F FAX:Devon Reese MD [phone] [place]: St: PRE Name: NAELMOISE [facility] : 1945 Age/S: 75/F [address] [place] [address] Unit #: [id number] Loc: [place] [address] Phys: Devon Moses MD Acct: [id number] Dis Date: Status: PRE SDC PHONE #: [phone] Exam Date: 05/03/2021 1213 FAX #: [phone] Reason: PREOP EXAMS: CPT CODE: [id number] XR CHEST 2 V 45879 PROCEDURE INFORMATION: Exam: XR Chest Exam date and time: 05/03/2021 11:44 AM Age: 75 years old Clinical indication: Other: Preop TECHNIQUE:Imaging protocol: XR of the chest. Views: 2 [...] MD Technologist: RT Pam(Vahid) Trnscrd Date/Time/By: 05/03/2021 (1225) : By: [email or web address] Orig Print D/T: S: 05/03/2021 (1225) PAGE 1 Signed ReportCT Heart Scan Plus [...] of Atherosclerosis0-Normal 1-10 - Minimal extent of osnvjeusakprdyy35-375 - Mild extent of kggljkyalymzryx458-232 - Moderate extent of atherosclerosis> 400 - [...] of Atherosclerosis0-Normal 1-10 - Minimal extent of jorecyffwpbdhgj31-102 - Mild extent of sdsagjpctgmqcaa342-593 - Moderate extent of atherosclerosis> 400 - Severe extent of atherosclerosisRECOMMENDATION:A score of 1197 places the patient in the 90th percentile rank. That means 10% of the females at the ages from 71-75 have a higher calcium score. Intensive risk factor modification is indicated to prevent further progression (>0). Please contact your physician regarding these results.INCIDENTAL FINDINGS:[id number] vascular screening heart scan plus (self pay) [...] code = 2.9 meq/L 3.5-5.1 L 379) [id number] 07:21:00 Test Item Value Reference Range Interpretation Comments MAGNESIUM (BEAKER) (test code = 1.5 mg/dL 1.6-2.6 L 627) [id number] 06:36:00 Test Item Value Reference Range Interpretation Comments POTASSIUM (BEAKER) (test code = 3.5 meq/L 3.5-5.1 379) [id number] 06:36:00 Test Item Value Reference Range Interpretation Comments MAGNESIUM (BEAKER) (test code = 1.5 mg/dL 1.6-2.6 L 627) BASIC METABOLIC [id number] 10:13:00 Test Item Value Reference Range Interpretation [...] 1092) DATA TO CALCULA TE ESTIMATED GFR. [id number] 10:08:00 Test Item Value Reference Range Interpretation Comments MAGNESIUM (BEAKER) (test code = 1.4 mg/dL 1.6-2.6 L 627) [id number] 04:41:00 Test Item Value Reference Range Interpretation Comments MAGNESIUM (BEAKER) (test code = 1.4 mg/dL 1.6-2.6 L 627) BASIC METABOLIC [id number] 04:41:00 Test Item Value Reference Range Interpretation [...] ESTIMATED GFR. CBC W/PLT COUNT & AUTO [id number] 04:23:00 Test Item Value Reference Range Interpretation [...] (BEAKER) (test code = 2801) BASIC METABOLIC [id number] 06:29:00 Test Item Value Reference Range Interpretation [...] 1092) DATA TO CALCULA TE ESTIMATED GFR. [id number] 06:26:00 Test Item Value Reference Range Interpretation Comments MAGNESIUM (BEAKER) (test code = 1.4 mg/dL 1.6-2.6 L 627) POCT-GLUCOSE [id number] 04:52:00 Test Item Value Reference Range Interpretation Comments POC-GLUCOSE METER 103 mg/dL 70-110 TESTED AT [facility] 6720 (BEAKER) (test code = KELSIE MARKS 1538) [address] CT, BRAIN, WITHOUT [id number] 01:41:00Reason for exam:->Fall and hit head on [...] right MCA territory. Signed: Ana Maria Daniels [facility]ENTEReport Verified Date/Time: 04/18/2019 01:41:45 [facility] CEREBRAL PERFUSION [id number] 13:14:00Reason for exam:- >Assessment for collateral perfusionAnesthesia:->NoneFINAL [...] MDReport Verified Date/Time: 04/17/2019 13:14:17 CT, CAROTID, [id number] 13:27:00Reason for exam:->cvaFINAL REPORT CLINICAL HISTORY: cvaR [...] the diminutive distal right vertebral artery. 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 The [...] by: Triston ARTIS 04/15/2019 01:27 PMCT, CTANGIO [id number] 13:27:00Reason for exam:->right MCA strokeFINAL REPORT CLINICAL [...] the diminutive distal right vertebral artery. 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 The [...] signed by: Triston ARTIS 04/15/2019 01:27 PMURIC [id number] 06:14:00 Test Item Value Reference Range Interpretation Comments URIC ACID (BEAKER) (test code = 3.8 mg/dL 2.6-7.2 773) BASIC METABOLIC [id number] 06:36:00 Test Item Value Reference Range Interpretation [...] TO CALCULA TE ESTIMATED GFR. BASIC METABOLIC [id number] 06:09:00 Test Item Value Reference Range Interpretation [...] ESTIMATED GFR. CBC W/PLT COUNT & AUTO [id number] 05:36:00 Test Item Value Reference Range Interpretation [...] (BEAKER) (test code = 2801) BASIC METABOLIC [id number] 06:05:00 Test Item Value Reference Range Interpretation [...] TE ESTIMATED GFR. RAD, ABDOMEN/KUB, 1 VIEW [id number] 02:48:00Reason for exam:->Corpak placement 0111 AMFINAL REPORT [...] Date/Time: 04/12/2019 02:48:37 RAD, ABDOMEN/KUB, 1 VIEW [id number] 00:53:00Reason for exam:->Corpak placement verification. 0005 AMShould [...] normal limits. Cholecystectomy clips are present. Signed: Ronlad Gaines MDReport Verified Date/Time: 04/12/2019 00:53:54 MR, BRAIN, WITHOUT [id number] 00:10:00Reason for exam:->Ischemic Stroke Evaluationwith General AnesthesiaFINAL [...] discussed with the patient's care provider, nurse Munaf to be immediately conveyed to thepatient's attending physician , on 04/12/2019 12:05 AM. Signed: Ronald Gaines MDReport Verified Date/Time: 04/12/2019 00:10:30 MR, MRA, BRAIN, WITHOUT [id number] 00:10:00Reason for exam:->Ischemic Stroke Evaluationwith general anesthesiaFINAL [...] 04/12/2019 00:10:30 MR, MRA, NECK, WITHOUT IV [id number] 00:10:00Reason for exam:->Ischemic Stroke Evaluationwith general anesthesiaFINAL [...] Ronald Gaines MDReport Verified Date/Time: 04/12/2019 00:10:30 [id number] 13:25:00 Test Item Value Reference Range Interpretation Comments RPR SCREEN (BEAKER) (test code = Nonreactive Nonreactive 420) HEMOGLOBIN [id number] 10:35:00 Test Item Value Reference Range Interpretation Comments HEMOGLOBIN A1C (BEAKER) (test code = 5.5 % 4.3-6.1 368) COMPREHENSIVE METABOLIC [id number] 07:01:00 Test Item Value Reference Range Interpretation [...] 1092) DATA TO CALCULA TE ESTIMATED GFR. [id number] 06:29:00 Test Item Value Reference Range Interpretation Comments MAGNESIUM (BEAKER) (test code = 1.6 mg/dL 1.6-2.6 627) FastingLIPID [id number] 06:29:00 Test Item Value Reference Range Interpretation [...] Very High >=190 Fasting TSH/FREE T4 IF [id number] 06:22:00 Test Item Value Reference Range Interpretation Comments THYROID STIMULATING HORMONE 1.35 uIU/mL 0.35-4.94 (BEAKER) (test code = 772) CBC W/PLT COUNT & AUTO [id number] 06:01:00 Test Item Value Reference Range Interpretation [...] code = 2801) URINALYSIS WITH MICROSCOPIC IF [id number] 14:45:00 Test Item Value Reference Range Interpretation [...] (test code = 2795) VITAMIN B12 AND [id number] 14:43:00 Test Item Value Reference Range Interpretation Comments VITAMIN B12 (BEAKER) (test code = 1414 pg/mL 213-816 H 774) FOLATE (BEAKER) (test code = 362) > ng/mL >=7.0 TSH/FREE T4 IF [id number] 14:36:00 Test Item Value Reference Range Interpretation Comments THYROID STIMULATING HORMONE 1.54 uIU/mL 0.35-4.94 (BEAKER) (test code = 772) BASIC METABOLIC [id number] 13:34:00 Test Item Value Reference Range Interpretation [...] 1092) DATA TO CALCULA TE ESTIMATED GFR. [id number] 13:18:00 Test Item Value Reference Range Interpretation Comments MAGNESIUM (BEAKER) (test code = 1.4 mg/dL 1.6-2.6 L 627)
[2023-06-01] MEDS ORDERED: CODEINE 30MG/APAP 300MG TAB ONE (11:23)
--- NOTE | 2023-06-01 13:13 | RAD REPORT ---
EXAM DESCRIPTION: RAD - Knee Left 3 View - 06/01/2023 12:49 pm CLINICAL HISTORY: PAIN COMPARISON: No comparisons TECHNIQUE: Left knee, 3 views. FINDINGS: No fracture, dislocation or periosteal reaction. Up to moderate tricompartmental osteoarth ritic changes, with medial and lateral weight-bearing joint space narrowing. Well-circumscribed scler otic lesion in the distal femoral metaphysis may represent a bone island or enchondroma. Small joint effusion. No soft tissue abnormality. IMPRESSION: No acute osseus abnormality. Up to moderate tricompartmental osteoarthritic changes. Mil d joint effusion.
--- NOTE | 2023-06-01 13:19 | EDPHYS ---
Physician Documentation [facility] Name: Marla Campos Age: 77 yrs Sex: Female : 1945 Arrival Date: 06/01/2023 Time: 10:47 Bed 20 Private MD: ED Physician Rubio Muniz HPI: 06/01 12:48 This 77 yrs old Female presents to ER via Wheelchair with complaints of Knee Injury - rt left. 12:48 Patient presents to the ED with an injury to the left knee. Patient lost her balance rt while walking with a walker, hit her knee. Denies other injuries or other acute complaints. Denies any syncopal events. Reports bruising to this area. This injury occurred last night. Has been able to bear weight with pain. Denies other acute complaints, symptoms are mild in severity, aching nature, nonradiating, no other aggravating alleviating factors.. Historical: - Allergies: 11:00 Biaxin; ll1 11:00 Breo Ellipta; ll1 11:00 CITRIC ACID; ll1 11:00 Clotrimazole-Betamethasone; ll1 11:00 Demerol; ll1 11:00 Doxycycline; ll1 11:00 Florinef Acetate; ll1 11:00 GABAPENTIN; ll1 11:00 Iodinated Contrast Media - IV Dye; ll1 11:00 Lyrica; ll1 11:00 PENICILLINS; ll1 11:00 Periostat; ll1 11:00 Prevacid; ll1 11:00 QUINOLONES; ll1 11:00 relafen; ll1 11:00 Sulfa (Sulfonamide Antibiotics); ll1 11:00 Vioxx; ll1 - PMHx: 11:00 Hypercholesterolemia; GERD; fluid retention; CVA; Asthma; Left sided weakness-mild ll1 (previous CVA); Hypertensive disorder; - PSHx: 11:00 Carotid endarterectomy; Coronary Angioplasty; Heart Stents; right leg stent; ll1 - Immunization history:: Adult Immunizations up to date. - Social history:: Smoking status: Patient denies any tobacco usage or history of. - Family history:: not pertinent. ROS: 12:48 Constitutional: Negative for fever, chills, and weight loss, Cardiovascular: Negative rt for chest pain, palpitations, and edema, Respiratory: Negative for shortness of breath, cough, wheezing, and pleuritic chest pain, Abdomen/GI: Negative for abdominal pain, nausea, vomiting, diarrhea, and constipation, Skin: Negative for injury, rash, and discoloration, Neuro: Negative for headache, weakness, numbness, tingling, and seizure, Psych: Negative for depression, anxiety, suicide ideation, homicidal ideation, and hallucinations, 12:48 MS/extremity: Positive for pain, Negative for deformity, Exam: 12:48 Constitutional: This is a well developed, well nourished patient who is awake, alert, rt and in no acute distress. Head/Face: Normocephalic, atraumatic. Chest/axilla: Normal chest wall appearance and motion. Nontender with no deformity. No lesions are appreciated. Cardiovascular: Regular rate and rhythm with a normal S1 and S2. No gallops, murmurs, or rubs. Normal PMI, no JVD. No pulse deficits. Respiratory: Lungs have equal breath sounds bilaterally, clear to auscultation and percussion. No rales, rhonchi or wheezes noted. No increased work of breathing, no retractions or nasal flaring. Abdomen/GI: Soft, non-tender, with normal bowel sounds. No distension or tympany. No guarding or rebound. No evidence of tenderness throughout. Skin: Warm, dry with normal turgor. Normal color with no rashes, no lesions, and no evidence of cellulitis. Neuro: Awake and alert, GCS 15, oriented to person, place, time, and situation. Cranial nerves II-XII grossly intact. Motor strength 5/5 in all extremities. Sensory grossly intact. Cerebellar exam normal. Normal gait. Psych: Awake, alert, with orientation to person, place and time. Behavior, mood, and affect are within normal limits. 12:48 Musculoskeletal/extremity: Bruising with mild swelling to the left knee, mild tenderness diffusely, full range of motion, pulse, motor, sensation intact. Vital Signs: 11:01 BP 102 / 40; Pulse 67; Resp 17; Temp 97.6; Pulse Ox 99% on R/A; Weight 72.12 kg; Height eh3 5 ft. 3 in. ; Pain 10/10; 12:00 BP 126 / 49; Pulse 55; Resp 16; Pulse Ox 98% ; Pain 5/10; eh3 13:00 BP 118 / 50; Pulse 57; Resp 16; Pulse Ox 98% on R/A; eh3 11:01 Body Mass Index 28.16 (72.12 kg, 160.02 cm) 3 11:01 Pain Scale: Adult eh3 12:00 Pain Scale: Adult eh3 MDM: 10:55 Patient medically screened. rt 14:10 Differential diagnosis: Contusion, arthritis, fracture. Data reviewed: vital signs, rt nurses notes, radiologic studies. Independent interpretation of the following test(s) in the Emergency Department X-Ray: My interpretation is No fracture seen on interpretation of x-ray images. Test considered but Not performed: CT: Low suspicion for tibial plateau fracture, CT scan not indicated. Care significantly affected by the following chronic conditions: Hypertension. Counseling: I had a detailed discussion with the patient and/or guardian regarding the historical points, exam findings, and any diagnostic results supporting the discharge/admit diagnosis, radiology results, the need for outpatient follow up. Response to treatment: the patient's symptoms have markedly improved after treatment. 06/01 11:06 Order name: Knee Left 3 View XRAY; Complete Time: 13:15 rt Administered Medications: 11:10 Drug: Acetaminophen-Codeine PO (300 mg-30 mg) 1 tablet PO once; RASS on ADMIN: Combtv4, eh3 Very Agttd3, Agttd2, Rstlss1, AlertClm0, Drwsy-1, Lt Sdtn-2, Mod Sdtn-3, Dp Sdtn-4, UnArsble-5 Route: PO; 12:00 Follow up: Response: No adverse reaction 3 Disposition Summary: 06/01/23 13:18 Discharge Ordered Notes: Location: Home rt Problem: new rt Symptoms: have improved rt Condition: Stable rt Diagnosis - Contusion to left knee rt Followup: rt - With: Private Physician - When: 5 - 6 days - Reason: Discharge Instructions: - Discharge Summary Sheet rt - Contusion rt Forms: - Medication Reconciliation Form rt - Thank You Letter rt - Antibiotic Education rt - Prescription Opioid Use rt - Patient Portal Instructions rt - Leadership Thank You Letter rt Signatures: Dispatcher [employer] Darrian Zelaya RN RN 1 Modesta Portillo RN RN eh3 Rubio Muniz MD MD rt
--- NOTE | 2023-06-01 13:19 | ER ---
Nurse's Notes [facility] Name: Marla Campos Age: 77 yrs Sex: Female : 1945 Arrival Date: 06/01/2023 Time: 10:47 Bed 20 Private MD: Diagnosis: Contusion to left knee Presentation: 06/01 11:01 Chief complaint: Patient states: Fell onto knees last night while using walker. L knee ll1 pain with abrasion noted. R knee bruising also. Coronavirus screen: Vaccine status: Patient reports receiving the 2nd dose of the covid vaccine. Client denies travel out of the [place] in the last 14 days. At this time, the client does not indicate any symptoms associated with coronavirus-19. Ebola Screen: Patient denies travel to an Ebola-affected area in the 21 days before illness onset. Initial Sepsis Screen: Does the patient meet any 2 criteria? No. Patient's initial sepsis screen is negative. Does the patient have a suspected source of infection? Yes: Bone or joint infection. Risk Assessment: Do you want to hurt yourself or someone else? Patient reports no desire to harm self or others. Onset of symptoms was May 31, 2023. 11:01 Method Of Arrival: Wheelchair ll1 11:01 Acuity: DANNY 4 ll1 Historical: - Allergies: 11:00 Biaxin; ll1 11:00 Breo Ellipta; ll1 11:00 CITRIC ACID; ll1 11:00 Clotrimazole-Betamethasone; ll1 11:00 Demerol; ll1 11:00 Doxycycline; ll1 11:00 Florinef Acetate; ll1 11:00 GABAPENTIN; ll1 11:00 Iodinated Contrast Media - IV Dye; ll1 11:00 Lyrica; ll1 11:00 PENICILLINS; ll1 11:00 Periostat; ll1 11:00 Prevacid; ll1 11:00 QUINOLONES; ll1 11:00 relafen; ll1 11:00 Sulfa (Sulfonamide Antibiotics); ll1 11:00 Vioxx; ll1 - PMHx: 11:00 Hypercholesterolemia; GERD; fluid retention; CVA; Asthma; Left sided weakness-mild ll1 (previous CVA); Hypertensive disorder; - PSHx: 11:00 Carotid endarterectomy; Coronary Angioplasty; Heart Stents; right leg stent; ll1 - Immunization history:: Adult Immunizations up to date. - Social history:: Smoking status: Patient denies any tobacco usage or history of. - Family history:: not pertinent. Screenin:00 [facility] ED Fall Risk Assessment (Adult) Score/Fall Risk Level 0 - 2 = Low Risk. Abuse eh3 screen: Denies threats or abuse. Denies injuries from another. Nutritional screening: No deficits noted. Tuberculosis screening: No symptoms or risk factors identified. Assessment: 11:00 General: Appears in no apparent distress. uncomfortable, Behavior is calm, cooperative, eh3 appropriate for age. Pain: Complains of pain in left knee Pain currently is 10 out of 10 on a pain scale. Neuro: Level of Consciousness is awake, alert, obeys commands, Oriented to person, place, time, situation. Cardiovascular: Capillary refill < 3 seconds Patient's skin is warm and dry. Respiratory: Airway is patent Respiratory effort is even, unlabored, Respiratory pattern is regular, symmetrical. GI: Abdomen is round non-distended. Derm: Skin is pink, warm \T\ dry. Musculoskeletal: Circulation, motion, and sensation intact. Swelling present in left knee. 12:00 Reassessment: Patient appears in no apparent distress at this time. Patient and/or eh3 family updated on plan of care and expected duration. Pain level reassessed. Patient is alert, oriented x 3, equal unlabored respirations, skin warm/dry/pink. 13:00 Reassessment: Patient appears in no apparent distress at this time. Patient and/or eh3 family updated on plan of care and expected duration. Pain level reassessed. Patient is alert, oriented x 3, equal unlabored respirations, skin warm/dry/pink. Vital Signs: 11:01 BP 102 / 40; Pulse 67; Resp 17; Temp 97.6; Pulse Ox 99% on R/A; Weight 72.12 kg; Height eh3 5 ft. 3 in. ; Pain 10/10; 12:00 BP 126 / 49; Pulse 55; Resp 16; Pulse Ox 98% ; Pain 5/10; eh3 13:00 BP 118 / 50; Pulse 57; Resp 16; Pulse Ox 98% on R/A; eh3 11:01 Body Mass Index 28.16 (72.12 kg, 160.02 cm) eh3 11:01 Pain Scale: Adult eh3 12:00 Pain Scale: Adult eh3 ED Course: 10:51 Patient arrived in ED. im 10:55 Rubio Muniz MD is Attending Physician. rt 11:00 Arm band placed on Patient placed in an exam room, on a stretcher. ll1 11:00 Patient has correct armband on for positive identification. Bed in low position. Call eh3 light in reach. Side rails up X2. Provided Education on: use of call see. Pulse ox on. NIBP on. 11:01 Modesta Portillo, RN is Primary Nurse. eh3 11:03 Triage completed. ll1 12:50 Knee Left 3 View XRAY In Process Unspecified. EDMS 13:39 No provider procedures requiring assistance completed. Patient did not have IV access eh3 during this emergency room visit. Administered Medications: 11:10 Drug: Acetaminophen-Codeine PO (300 mg-30 mg) 1 tablet PO once; RASS on ADMIN: Combtv4, eh3 Very Agttd3, Agttd2, Rstlss1, AlertClm0, Drwsy-1, Lt Sdtn-2, Mod Sdtn-3, Dp Sdtn-4, UnArsble-5 Route: PO; 12:00 Follow up: Response: No adverse reaction eh3 Medication: 13:39 VIS not applicable for this client. eh3 Outcome: 13:18 Discharge ordered by . rt 13:41 Discharged to home via wheelchair, with significant other, 3 13:41 Condition: stable 13:41 Discharge instructions given to patient, Instructed on discharge instructions, follow up and referral plans. Demonstrated understanding of instructions, follow-up care, 13:47 Patient left the ED. eh3 Signatures: Dispatcher [employer] EDMS Darrian Vides RN RN ll1 Modesta Portillo, RN RN eh3 Rubio Muniz MD MD rt Kim Davis im Corrections: (The following items were deleted from the chart) 12:36 11:01 Pulse 67bpm; Resp 17bpm; Pulse Ox 99% RA; Temp 97.6F; 72.12 kg; Height 5 ft. 3 eh3 in.; BMI: 28.1; Pain 10, Adult; ll1
[2023-06-01 13:51] VITALS: TEMP 97.6
[2023-06-01 13:52] VITALS: O2SAT 98
[2023-06-01 13:53] VITALS: BP 118/50
== END 2023-06-01 13:47 | disposition home or self-care (01) ==
LOC: ER 10:47
DX: S80.02XA Contusion of left knee, initial encounter (principal); Z88.0 Allergy status to penicillin; Z88.1 Allergy status to other antibiotic agents; Z88.2 Allergy status to sulfonamides; Z88.5 Allergy status to narcotic agent; Z88.6 Allergy status to analgesic agent; Z88.8 Allergy status to other drugs, medicaments and biological substances; Z91.018 Allergy to other foods; Z91.041 Radiographic dye allergy status; Z91.048 Other nonmedicinal substance allergy status
CPT/HCPCS: 99283

== ENCOUNTER 2023-06-11 13:21 | Emergency (ER) | payer OTHER ==
--- OUTSIDE RECORDS SUMMARY | 2023-06-11 13:31 | XMS REPORT | Continuity of Care Document ---
:1945 Author Organization [facility] t Address [address] [place] [address] [address] [place] [address] Care Team Providers Name Role Phone Garth Hopkins MD Primary Care Physician Merritt Deras Attending Clinician GC_GCALINA_Leonard_S Attending Clinician Unavailable Mayte Valle Attending Clinician Unavailable Hallie Charles Attending Clinician Unavailable Robert Gold Attending Clinician Unavailable Rj Evans Attending Clinician Unavailable Devon Whatley Attending Clinician Unavailable Arun Bishop Attending Clinician Unavailable Garth Hopkins MD Attending Clinician CRISTIAN DURAN MADHURA Attending Clinician Unavailable AMBROCIO FERREIRA Attending Clinician Unavailable KALYAN_GCALINA_Leonard_S Admitting Clinician Unavailable Mayte Valle Admitting Clinician Unavailable Hallie Charles Admitting Clinician Unavailable Robert Gold Admitting Clinician Unavailable Rj Evans Admitting Clinician Unavailable Garth Hopkins V Admitting Clinician Unavailable Devon Whatley Admitting Clinician Unavailable Edna, Christopher A Admitting Clinician Unavailable Physician, No Primary or Family Admitting Clinician Unavaila true DURAN, CRISTIAN, CRISTIAN Admitting Clinician Unavailable RAJAN BOOKER Admitting Clinician Unavailable Payers Payer Name Policy Type Policy Number Effective Date Expiration Date Yudi KESSLER (MEDICARE [id number] 2022 REPLACEMENT PPO) 00:00:00 AETM AETM [id number] Problems Condition Condition Condition Status Onset Resolution Last Treating Co mments Source Name Details Category Date Date Treatment Clinician Date Amnesia Amnesia Problem Active 2023-06-05 Me moria (finding) (finding) 13:34:23 l Active Andrew Problem 06/05/2023 [facility] 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: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 Manny n (disorder) (disorder) Active Problem 06/05/2023 [facility] 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:34:23 l erosis erosis [place] (disorder) (disorder) Active Problem 06/05/2023 [facility] Dizziness Dizziness Problem Active 2023-06-05 Memoria (finding) (finding) 13:34:23 l Active Andrew Problem 06/05/2023 [facility] Gastrointe Problem Active 2023-06-05 M emoria stinal Gastrointe 13:34:23 l hemorrhage stinal Manny n (disorder) hemorrhage (disorder) Active Problem 06/05/2023 [facility] Hyperlipid Hyperlipi Problem Active 2023-06-05 Memoria emia demia 13:34:23 l (disorder) (disorder) He rmann Active Problem 06/05/2023 [facility] 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 l 13:34:23 l (disorder) infarction He rmann (disorder) Active Problem 06/05/2023 [facility] 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 (disorder) (disorder) Active Problem 06/05/2023 [facility] Syncope Syncope Problem Active 2023-06-05 Me moria (disorder) (disorder) 13:34:23 l Active Andrew Problem 06/05/2023 [facility] 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 (disorder) (disorder) Active Problem 06/05/2023 [facility] Dysarthria Dysarthri Problem Active 2023-06-05 Memoria (finding) a 13:34:23 l (finding) [place] Active Problem 06/05/2023 [facility] Recurrent Recurrent Problem Active 2023-06-05 Memoria falls falls 13:34:23 l (finding) (finding) Herm tito Active Problem 06/05/2023 [facility] Allergies, Adverse Reactions, Alerts Allergy Allergy Status Severity Reaction(s) Onset Inactive Treating Comm ents Source Name Type Date Date Clinician clotrima DA Active [place] UTI, RASH 2022- [facility] zole - [place] 00:[facility]: d [facility] clarithr DA Active [place] RASH, SORE [facility] omycin TONGUE 07-21 [place] 00:00: d [facility] nabumeto DA Active [place] ABDOMINAL [facility] ne PAIN 07-21 [place] 00:00: d [facility] gabapent DA Active [place] DIZZINESS,NA 2022-0 HC A in USEA,CONSTIP 07-21 [place] ATION 00:00: d [facility] lansopra DA Active [place] NAUSEA, [facility] zole CHILLS 07-21 [place] 00:00: d [facility] meperidi DA Active SV VOMITING 2022-0 [facility] ne 07-21 [place] 00:00: d [facility] fludroco DA Active [place] SEVERE RASH, 2022-0 HC A rtisone SWELLING OF 05 [place] EYES 00:00: d [facility] rofecoxi DA Active [place] EYE AND BODY HC A b SWELLING 07-21 [place] 00:00: d [facility] pregabal DA Active [place] WATERY EYES 2022- [facility] in 07-21 [place] 00:00: d 00 [facility] fluticas DA Active [place] HARD TO 2022-0 [facility] one BREATH 1-05 [place] furoate 00:00: d 00 [facility] vilanter DA Active [place] HARD TO 2022-0 [facility] ol BREATH -05 [place] 00:00: d 00 [facility] Iodinate DA Active U UNKNOWN 2022-0 [facility] d 1-05 [place] Contrast 00:00: d Media 00 [facility] Penicill DA Active SV INJECTION 2022- [facility] ins SITE 1-05 [place] SWELLING 00:00: d 00 [facility] Sulfa DA Active [place] RASH, EYE 2022-0 [facility] (Sulfona SWELLING 05 [place] mide 00:00: d Antibiot 00 [facility] Quinolon DA Active [place] RASH, FACIAL 2022-0 HC A es SWELLING 07-21 [place] 00:00: d 00 [facility] [place] FA Active SV VOMITING 2022-0 [facility] And 07-21 [place] Derivati 00:00: d ves 00 [facility] doxycycl DA Active [place] ABDOMINAL 2022- [facility] ine PAIN 07-21 [place] 00:00: d 00 [facility] sulfapyr DA Active [place] EYE LID 2022- [facility] idine SWELLING 05 [place] 00:00: d 00 [facility] Iodinate DA Active U UNKNOWN 2021-0 [facility] d 17 Clear Contrast 00:00: Wing Media 00 [facility] Sulfa DA Active MO RASH, EYE 2021-0 H[facility] (Sulfona SWELLING -17 Clear mide 00:00: Wing Antibiot 00 [facility] [place] FA Active SV VOMITING 2021-0 [facility] And 08-02 Clear Derivati 00:00: Wing ves [facility] doxycycl DA Active [place] ABDOMINAL 2021-0 [facility] ine PAIN -17 Clear 00:00: Wing [facility] clotrima DA Active [place] UTI, RASH 2021-0 [facility] zole -17 Clear 00:00: Wing [facility] clarithr DA Active [place] RASH, SORE 2021-0 [facility] omycin TONGUE -17 Clear 00:00: Wing [facility] nabumeto DA Active [place] ABDOMINAL 2021-0 [facility] ne PAIN -17 Clear 00:00: Wing [facility] meperidi DA Active SV VOMITING 2021-0 H[facility] ne 1-17 Clear 00:00: Wing [facility] fludroco DA Active SV SEVERE RASH, HC A rtisone SWELLING OF -17 Lilian r EYES 00:00: [facility] pregabal DA Active [place] WATERY EYES [facility] in 08-02 Clear 00:00: [facility] gabapent DA Active MO DIZZINESS,NA HC A in USEA,CONSTIP 08-02 Lil[place] r ATION 00:00: Wing [facility] lansopra DA Active SV NAUSEA, H[facility] zole CHILLS - Clear 00:00: [facility] Penicill DA Active SV INJECTION 2020-07 [facility] ins SITE 0-22 Clear SWELLING 00:00: [facility] Quinolon DA Active MO RASH, FACIAL 2020-07 HC A es SWELLING 0-22 Clear 00:00: [facility] [place] FA Active MO VOMITING 2020-07 [facility] And 0-22 Clear Derivati 00:00: Wing [facility] iodine DA Active U UNKNOWN 2020-07 [facility] 0-22 Clear 00:00: Wing [facility] doxycycl DA Active [place] ABDOMINAL 2020-07 [facility] ine PAIN 0-22 Clear 00:00: [facility] sulfapyr DA Active [place] EYE LID 2020-07 [facility] idine SWELLING 0-22 Clear 00:00: Wing [facility] clotrima DA Active MO UTI, RASH 2020-07 [facility] zole 0-22 Clear 00:00: Wing [facility] clarithr DA Active MO RASH, SORE 2020-07 [facility] omycin TONGUE 0-22 Clear 00:00: Wing [facility] meperidi DA Active [place] VOMITING 2020-07 [facility] ne 0-22 Clear 00:00: [facility] fludroco DA Active [place] SEVERE RASH, 2020-07 HC A rtisone SWELLING OF 0-22 [place] r EYES 00:00: Wing [facility] rofecoxi DA Active [place] EYE AND BODY 2020-07 HC A b SWELLING 0-22 Clear 00:00: Wing [facility] pregabal DA Active [place] WATERY EYES 2020-07 [facility] in 0-22 Clear 00:00: Wing [facility] fluticas DA Active MO HARD TO 2020-07 [facility] one BREATH 0-22 Clear furoate 00:00: Wing 00 [facility] vilanter DA Active MO HARD TO 2020-07 H[facility] ol BREATH 0-22 Clear 00:00: Wing [facility] Penicill DA Active SV 2020-07 H[facility] ins 0-22 Clear 00:00: Wing 00 [facility] Quinolon DA Active MO 2020-07 H[facility] es 0-22 Clear 00:00: Wing [facility] [place] FA Active [place] 2020-07 [facility] And 0-22 Clear Derivati 00:00: Wing ves 00 [facility] iodine DA Active U 2020-07 HCA 0-22 Clear 00:00: Wing [facility] doxycycl DA Active [place] 2020-07 [facility] ine 0-22 Clear 00:00: Wing 00 [facility] sulfapyr DA Active [place] 2020-07 [facility] idine 0-22 Clear 00:00: Wing [facility] clotrima DA Active [place] 2020-07 [facility] zole 0-22 Clear 00:00: Wing 00 [facility] clarithr DA Active [place] 2020-07 [facility] omycin 0-22 Clear 00:00: Wing 00 [facility] meperidi DA Active [place] 2020-07 [facility] ne 0-22 Clear 00:00: Wing 00 [facility] fludroco DA Active [place] 2020-07 H[facility] rtisone 0-22 Clear 00:00: Wing 00 [facility] rofecoxi DA Active [place] 2020-07 H[facility] b 0-22 Clear 00:00: Wing 00 [facility] pregabal DA Active [place] 2020-07 [facility] in 0-22 Clear 00:00: Wing 00 [facility] fluticas DA Active [place] 2020-07 [facility] one 0-22 Clear furoate 00:00: Wing 00 [facility] vilanter DA Active [place] 2020-07 [facility] ol 0-22 Clear 00:00: Wing 00 [facility] PREICID DA Active [place] ABD PAIN, 2020-07 [facility] LIGHT 0-22 Clear HEADEDNESS, 00:00: Wing NAUSEA 00 [facility] RALAFEN DA Active [place] ABDOMINAL 2020-07 [facility] PAIN 0-22 Clear 00:00: Wing 00 [facility] Penicill DA Active SV INJECTION 2020-07 [facility] ins SITE 0-18 Clear SWELLING 00:00: Wing [facility] iodine DA Active U UNKNOWN 2020-07 H[facility] 0-18 Clear 00:00: Wing [facility] sulfapyr DA Active MO EYE LID 2020-07 [facility] idine SWELLING 0-18 Clear 00:00: Wing [facility] Penicill DA Active SV 2020-07 H[facility] ins 0-18 Clear 00:00: Wing [facility] iodine DA Active U 2020-07 HCA 0-18 Clear 00:00: Wing [facility] sulfapyr DA Active MO 2020-07 [facility] idine 0-18 Clear 00:00: Wing [facility] Iodine Propensi Active [facility] Iodide adverse 00:00: Medical Containi reaction 00 Center s Products Pregabal Propensi Active Other (See Watery [facility] Comments) [facility] adverse 00:00: warm Medical [...] Medical Vilanter reaction 00 Center ol s [place] Propensi Active Nausea And [facility] to Vomiting -[facility] Derivati adverse 00:00: Medical ves reaction 00 Center s Clotrima Propensi Active Rash 2018- uti [facility] zole ty to 9-[facility] adverse 00:00: Medical reaction 00 Center s Meperidi Propensi Active Nausea And 2018-[address] [facility] ty to Vomiting [facility] adverse 00:00: Medical reaction 00 Center s Doxycycl Propensi Active Nausea Only, [address] [facility] [facility] ine ty to Swelling 04-10 [facility] on [facility] adverse 00:00: tongue Medical reaction 00 Center s Fludroco Drug Active Swelling, [facility] rtisone Allergy Rash [facility] 00:[facility]: Medical 00 Center Gabapent Propensi [...] Active Low Rash 2018- [facility] ZOLE -[facility] 00:00: Medical 00 Center FLUDROCO Allergy Active Low Swelling 2018-0 [facility] RTISONE -[facility] 00:00: Medical 00 Center PENICILL Allergy Active Low 2018- [facility] INS [facility] 00:00: Medical 00 Center QUINOLON Allergy Active Low Swelling 2018- [facility] ES [facility] 00:[facility]: Medical 00 Center Fluticas Propensi Active Shortness Of 2019- [facility] one ty to Breath -[facility] Furoate- adverse 00:00: Medical Vil[place]ter reaction 00 Center ol s [place] Propensi Active Nausea And 2018-[address] [facility] [facility] And ty to Vomiting -25 [facility] Derivati adverse 00:00: Medical ves reaction 00 Center s SULFA Allergy Active Med Swelling 2018- [facility] (SULFONA 9-[facility] MIDE 00:00: Medical ANTIBIOT 00 Center ICS) Penicill Propensi Active Mild Arm and [facility] to [facility] adverse 00:00: bruise Medical reaction 00 Center s [place] Propensi Active Swelling, [facility] ty to Rash [facility] adverse 00:00: Medical reaction 00 Center s CITRUS Allergy Active N\\T\\V [facility] AND 9-[facility] DERIVATI 00:00: Medical VES 00 Center Sulfa Drug Active Swelling, [facility] (Sulfona Allergy Rash [facility] mide 00:00: Medical Antibiot 00 Center ics) MEPERIDI Allergy Active N\\T\\V [facility] NE 9[facility] 00:00: Medical 00 Center DOXYCYCL Allergy Active Nausea [facility] INE 9-[facility] 00:00: Medical 00 Center GABAPENT Allergy Active Other [facility] IN 9-[facility] 00:00: Medical 00 Center IODINE Allergy Active [facility] AND 9[facility] IODIDE 00:00: Medical CONTAINI 00 Center NG PRODUCTS PREGABAL Allergy Active Other [facility] IN 9-[facility] 00:00: Medical 00 Center DOXYCYCL Allergy Active Nausea [facility] INE 9-[facility] HYCLATE 00:00: Medical 00 [place] penicill penicill Active Memori a in in l [place] Sulfur Sulfur Active Memoria l Andrew iodine iodine Active Memoria l Andrew Social History Social Habit Start Date Stop Date Quantity Comments Source Sexual orientation [facility] Gender identity [facility] History [facility] Alcohol Std Drinks [facility] History [facility] Alcohol Binge Medical Ila ter History [facility] Alcohol Comment Medical [...] Stop Date Source Tobacco smoking consumption unknown [facility] Tobacco smoking status [facility] Medications Ordered Filled Start Stop Current Ordering Indication Dosage Frequency Signature Comments Components Source Medication Medication Date Date Medication? Clinician (SIG) Name Name memantine 2022-07 Yes = 1 tab, Aman omaira 10 mg oral 0-04 PO, BID, # l tablet 16:46: 180 tab, 1 Shari nn 00 Refill(s), Pharmacy: [facility], 162.56, cm, 04/14/23 13:49:00 CDT, Height, 74.091, kg, 04/14/23 13:49:00 CDT, Weight memantine 2022-07 Yes = 1 tab, Aman omaira 10 mg oral 0-04 PO, BID, # l tablet 16:46: 180 tab, 1 Shari nn 00 Refill(s), Pharmacy: [facility], 162.56, cm, 04/14/23 13:49:00 CDT, Height, 74.091, kg, 04/14/23 13:49:00 CDT, Weight Vimpat 100 2022-0 Yes 100 mg = 1 M emoria mg oral 9-29 tab, PO, l tablet 19:14: BID, # 60 Manny n 00 tab, 3 Refill(s), Pharmacy: [facility], 162.56, cm, 04/14/23 13:49:00 CDT, Height, 74.091, kg, 04/14/23 13:49:00 CDT, Weight Vimpat 100 2022-0 Yes 100 mg = 1 M emoria mg oral 9-29 tab, PO, l tablet 19:14: BID, # 60 Manny n 00 tab, 3 Refill(s), Pharmacy: [facility], 162.56, cm, 04/14/23 13:49:00 CDT, Height, 74.091, kg, 04/14/23 13:49:00 CDT, Weight Vimpat 50 2022-0 Yes 50 mg = 1 Mem oria mg oral 7-13 tab, PO, l tablet 21:38: BID, # 60 Manny n 00 tab, 3 Refill(s), Pharmacy: [facility], 162.56, cm, 01/26/23 16:03:00 CDT, Height, 72.273, kg, 01/26/23 16:03:00 CDT, Weight Vimpat 50 2023-0 Yes 50 mg = 1 Mem oria mg oral 7-13 tab, PO, l tablet 21:38: BID, # 60 Manny n 00 tab, 3 Refill(s), Pharmacy: [facility], 162.56, cm, 01/26/23 16:03:00 CDT, Height, 72.273, kg, 01/26/23 16:03:00 CDT, Weight Vimpat 50 2023-0 Yes 50 mg = 1 Mem oria mg oral 7-13 tab, PO, l tablet 21:38: BID, # 60 Manny n 00 tab, 3 Refill(s), Pharmacy: [facility], 162.56, cm, 01/26/23 16:03:00 CDT, Height, 72.273, kg, 01/26/23 16:03:00 CDT, Weight Vimpat 50 2023-0 Yes 50 mg = 1 Mem oria mg oral 6-12 tab, PO, l tablet 18:50: BID, # 60 Manny n 00 tab, 3 Refill(s), Pharmacy: [facility], 162.56, cm, 11/28/22 14:47:00 CDT, Height, 73.182, kg, 11/28/22 14:47:00 CDT, Weight Vimpat 50 2023-0 Yes 50 mg = 1 Mem oria mg oral 6-12 tab, PO, l tablet 18:50: BID, # 60 Manny n 00 tab, 3 Refill(s), Pharmacy: [facility], 162.56, cm, 11/28/22 14:47:00 CDT, Height, 73.182, kg, 11/28/22 14:47:00 CDT, Weight Vimpat 50 2023-0 Yes 50 mg = 1 Mem oria mg oral 6-12 tab, PO, l tablet 18:50: BID, # 60 Manny n 00 tab, 3 Refill(s), Pharmacy: [facility], 162.56, cm, 11/28/22 14:47:00 CDT, Height, 73.182, kg, 11/28/22 14:47:00 CDT, Weight Keppra 250 3-0 Yes 250 mg = 1 M emoria mg oral 6-03 tab, PO, l tablet 00:37: BID, # 60 Manny n 00 tab, 3 Refill(s), Pharmacy: [facility] #[id number], 162.56, cm, 11/28/22 14:47:00 CDT, Height, 73.182, kg, 11/28/22 14:47:00 CDT, Weight Keppra 250 3-0 Yes 250 mg = 1 M emoria mg oral 6-03 tab, PO, l tablet 00:37: BID, # 60 Manny n 00 tab, 3 Refill(s), Pharmacy: [facility] #[id number], 162.56, cm, 11/28/22 14:47:00 CDT, Height, 73.182, kg, 11/28/22 14:47:00 CDT, Weight Keppra 250 2022-0 Yes 250 mg = 1 M emoria mg oral 6-03 tab, PO, l tablet 00:37: BID, # 60 Manny n 00 tab, 3 Refill(s), Pharmacy: [facility] #[id number], 162.56, cm, 11/28/22 14:47:00 CDT, Height, 73.182, kg, 11/28/22 14:47:00 CDT, Weight Keppra 250 3-0 Yes 250 mg = 1 M emoria mg oral 6-03 tab, PO, l tablet 00:37: BID, # 60 Manny n 00 tab, 3 Refill(s), Pharmacy: [facility] #[id number], 162.56, cm, 11/28/22 14:47:00 CDT, Height, 73.182, kg, 11/28/22 14:47:00 CDT, Weight memantine 2022-0 Yes = 1 tab, Aman omaira 10 mg oral 4-26 PO, BID, # l tablet 15:34: 180 tab, 1 Shari nn 00 Refill(s), Pharmacy: [facility], 162.56, cm, 08/25/22 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, Height, 71.591, kg, 08/25/22 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, Weight memantine 0 Yes = 1 tab, Aman omaira 10 mg oral 4-26 PO, BID, # l tablet 15:34: 180 tab, 1 Shari nn 00 Refill(s), Pharmacy: [facility], 162.56, cm, 08/25/22 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, Height, 71.591, kg, 08/25/22 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, Weight memantine 0 Yes = 1 tab, Aman omaira 10 mg oral 4-26 PO, BID, # l tablet 15:34: 180 tab, 1 Shari nn 00 Refill(s), Pharmacy: [facility], 162.56, cm, 08/25/22 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, Height, 71.591, kg, 08/25/22 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, Weight memantine 0 Yes = 1 tab, Aman omaira 10 mg oral 4-26 PO, BID, # l tablet 15:34: 180 tab, 1 Shari nn 00 Refill(s), Pharmacy: [facility], 162.56, cm, 08/25/22 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, Height, 71.591, kg, 08/25/22 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, Weight Namenda 10 2022-0 Yes 10 mg = 1 Me moria mg oral 2-09 tab, PO, l tablet 18:05: BID, # 60 Manny n 00 tab, 4 Refill(s), Pharmacy: [facility], 162.56, cm, 08/25/22 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, Height, 71.591, kg, 08/25/22 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, Weight Namenda 10 0 Yes 10 mg = 1 Me moria mg oral 2-09 tab, PO, l tablet 18:05: BID, # 60 Manny n 00 tab, 4 Refill(s), Pharmacy: [facility], 162.56, cm, 08/25/22 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, Height, 71.591, kg, 08/25/22 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, Weight Namenda 2022-0 Yes 10 mg = 1 Me moria mg oral 2-09 tab, PO, l tablet 18:05: BID, # 60 Manny n 00 tab, 4 Refill(s), Pharmacy: [facility], 162.56, cm, 08/25/22 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, Height, 71.591, kg, 08/25/22 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, Weight Namenda 10 2022-0 Yes 10 mg = 1 Me moria mg oral 2-09 tab, PO, l tablet 18:05: BID, # 60 Manny n 00 tab, 4 Refill(s), Pharmacy: [facility], 162.56, cm, 08/25/22 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, Height, 71.591, kg, 08/25/22 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, Weight Namenda 2022-0 Yes 10 mg = 1 Me moria mg oral 2-09 tab, PO, l tablet 18:05: BID, # 60 Manny n 00 tab, 4 Refill(s), Pharmacy: [facility], 162.56, cm, 08/25/22 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, Height, 71.591, kg, 08/25/22 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, Weight Namenda 0 Yes 10 mg = 1 Me moria mg oral 2-09 tab, PO, l tablet 18:05: BID, # 60 Manny n 00 tab, 4 Refill(s), Pharmacy: [facility], 162.56, cm, 08/25/22 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, Height, 71.591, kg, 08/25/22 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, Weight amLODIPine 2022-0 Yes PO, Daily, M emoria 2-09 5 mg l 17:54: daily, 0 Andrew 00 Refill(s) amLODIPine 3-0 Yes PO, Daily, M emoria 2-09 5 mg l 17:54: daily, 0 [place] 00 Refill(s) amLODIPine 3-0 Yes PO, Daily, M emoria 2-09 5 mg l 17:54: daily, 0 Andrew 00 Refill(s) amLODIPine 2022-0 Yes PO, Daily, M emoria 2-09 5 mg l 17:54: daily, 0 Andrew 00 Refill(s) amLODIPine 2022-0 Yes PO, Daily, M emoria 2-09 5 mg l 17:54: daily, 0 Andrew 00 Refill(s) amLODIPine 2022-0 Yes PO, Daily, M emoria 2-09 5 mg l 17:54: daily, 0 [place] 00 Refill(s) Namenda 2021-07 Yes 5 mg = 1 Aman omaira mg oral 1-18 tab, PO, l tablet 18:02: BID, # 60 Manny n 00 tab, 3 Refill(s), Pharmacy: [facility], 162.56, cm, 06/03/22 11: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, Height, 69.545, kg, 06/03/22 11: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, Weight Namend 2021-07 Yes 5 mg = 1 Aman omaira mg oral 1-18 tab, PO, l tablet 18:02: BID, # 60 Manny n 00 tab, 3 Refill(s), Pharmacy: [facility], 162.56, cm, 06/03/22 11: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, Height, 69.545, kg, 06/03/22 11: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, Weight Namenda 2021-07 Yes 5 mg = 1 Aman omaira mg oral 1-18 tab, PO, l tablet 18:02: BID, # 60 Manny n 00 tab, 3 Refill(s), Pharmacy: [facility], 162.56, cm, 06/03/22 11: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, Height, 69.545, kg, 06/03/22 11: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, Weight Namenda 2021-07 Yes 5 mg = 1 Aman omaira mg oral 1-18 tab, PO, l tablet 18:02: BID, # 60 Manny n 00 tab, 3 Refill(s), Pharmacy: [facility], 162.56, cm, 06/03/22 11: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, Height, 69.545, kg, 06/03/22 11: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, Weight Namenda 2021-07 Yes 5 mg = 1 Aman omaira mg oral 1-18 tab, PO, l tablet 18:02: BID, # 60 Manny n 00 tab, 3 Refill(s), Pharmacy: [facility], 162.56, cm, 06/03/22 11: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, Height, 69.545, kg, 06/03/22 11: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, Weight Namenda 2021-07 Yes 5 mg = 1 Aman omaira mg oral 1-18 tab, PO, l tablet 18:02: BID, # 60 Manny n 00 tab, 3 Refill(s), Pharmacy: [facility], 162.56, cm, 06/03/22 11: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, Height, 69.545, kg, 06/03/22 11: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, Weight Namenda 2021-07 Yes 5 mg = 1 Aman omaira mg oral 1-18 tab, PO, l tablet 18:02: BID, # 60 Manny n 00 tab, 3 Refill(s), Pharmacy: [facility], 162.56, cm, 06/03/22 11: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, Height, 69.545, kg, 06/03/22 11: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, Weight Namenda 2021-07 Yes 5 mg = 1 Aman omaira mg oral 1-18 tab, PO, l tablet 18:02: BID, # 60 Manny n 00 tab, 3 Refill(s), Pharmacy: [facility], 162.56, cm, 06/03/22 11: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, Height, 69.545, kg, 06/03/22 11: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, Weight Namenda 2021-07 Yes 5 mg = 1 Aman omaira mg oral 1-18 tab, PO, l tablet 18:02: BID, # 60 Manny n 00 tab, 3 Refill(s), Pharmacy: [facility], 162.56, cm, 06/03/22 11: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, Height, 69.545, kg, 06/03/22 11: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, Weight Namenda 2021-07 Yes 5 mg = 1 Aman omaira mg oral 1-18 tab, PO, l tablet 18:02: BID, # 60 Manny n 00 tab, 3 Refill(s), Pharmacy: [facility], 162.56, cm, 06/03/22 11: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, Height, 69.545, kg, 06/03/22 11: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, Weight Namenda 5 2021-07 Yes 5 mg = 1 Aman omaira mg oral 1-18 tab, PO, l tablet 18:02: BID, # 60 Manny n 00 tab, 3 Refill(s), Pharmacy: [facility], 162.56, cm, 06/03/22 11: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, Height, 69.545, kg, 06/03/22 11: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, 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 Namenda 5 2021-07 Yes 5 mg = 1 Aman omaira mg oral 1-18 tab, PO, l tablet 18:02: BID, # 60 Manny n 00 tab, 3 Refill(s), Pharmacy: [facility], 162.56, cm, 06/03/22 11: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, Height, 69.545, kg, 06/03/22 11: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, Weight Namenda 5 2021-07 Yes 5 mg = 1 Aman omaira mg oral 1-18 tab, PO, l tablet 18:02: BID, # 60 Manny n 00 tab, 3 Refill(s), Pharmacy: [facility], 162.56, cm, 06/03/22 11: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, Height, 69.545, kg, 06/03/22 11: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, Weight famotidine 2021-07 Yes 20 mg [...] tab, PO, l tablet 17:49: BID, 0 [place] 00 Refill(s) Vitamin K2 2021-07 Yes 100 Memoria 1-18 microgram l 17:49: =, PO, [place] 00 Daily, 0 Refill(s) Cosamin DS 2021-07 [...] tab, PO, l tablet 17:49: BID, 0 [place] 00 Refill(s) Vitamin K2 2021-07 Yes 100 [...] Memoria oral tablet 1-18 Refill(s) l 17:49: [place] 00 famotidine 2021-07 Yes 20 mg = 1 Me moria 20 mg oral 1-18 tab, PO, l tablet 17:49: BID, 0 [place] 00 Refill(s) Vitamin K2 2021-07 Yes 100 [...] Memoria 1-18 microgram l 17:49: =, PO, [place] 00 Daily, 0 Refill(s) Cosamin DS 2021-07 Yes 0 Memoria oral tablet 1-18 Refill(s) l 17:49: famotidine 2021-07 Yes 20 mg = 1 Me moria 20 mg oral 1-18 tab, PO, l tablet 17:49: BID, 0 Andrew 00 Refill(s) Vitamin K2 2021-07 Yes 100 Memoria 1-18 microgram l 17:49: =, PO, Andrew 00 Daily, 0 Refill(s) Cosamin DS 2021-07 Yes 0 Memoria oral tablet 1-18 Refill(s) l 17:49: [place] 00 famotidine 2021-07 Yes 20 mg = 1 Me moria 20 mg oral 1-18 tab, PO, l tablet 17:49: BID, 0 [place] 00 Refill(s) Vitamin K2 2021-07 Yes 100 Memoria 1-18 microgram l 17:49: =, PO, [place] 00 Daily, 0 Refill(s) Cosamin DS 2021-07 [...] Memoria oral tablet 1-18 Refill(s) l 17:49: [place] 00 famotidine 2021-07 Yes 20 mg = 1 Me moria 20 mg oral 1-18 tab, PO, l tablet 17:49: BID, 0 Andrew 00 Refill(s) Vitamin K2 2021-07 Yes 100 Memoria 1-18 microgram l 17:49: =, PO, [place] 00 Daily, 0 Refill(s) Cosamin DS 2021-07 Yes 0 Memoria oral tablet 1-18 Refill(s) l 17:49: [place] 00 famotidine 2021-07 Yes 20 mg = 1 Me moria 20 mg oral 1-18 tab, PO, l tablet 17:49: BID, 0 [place] 00 Refill(s) Vitamin K2 2021-07 Yes 100 Memoria 1-18 microgram l 17:49: =, PO, [place] 00 Daily, 0 Refill(s) Cosamin DS 2021-07 Yes 0 Memoria oral tablet 1-18 Refill(s) l 17:49: Andrew 00 Docusate 2020-07 Yes 100 mg = 1 Mem oria Sodium 100 0-29 cap, PO, l MG Oral 16:18: BID, 0 [place] Capsule 00 Refill(s) docusate 2020-07 Yes 100 mg = 1 Mem oria sodium 100 0-29 cap, PO, l mg oral 16:18: BID, 0 [place] capsule 00 Refill(s) Docusate 2020-07 Yes 100 mg = 1 Mem oria Sodium 100 0-29 cap, PO, l MG Oral 16:18: BID, 0 [place] Capsule 00 Refill(s) docusate 2020-07 Yes 100 mg = 1 Mem oria sodium 100 0-29 cap, PO, l mg oral 16:18: BID, 0 [place] capsule 00 Refill(s) Docusate 2020-07 Yes 100 mg = 1 Mem oria Sodium 100 0-29 cap, PO, l MG Oral 16:18: BID, 0 [place] Capsule 00 Refill(s) docusate 2020-07 Yes 100 mg = 1 Mem oria sodium 100 0-29 cap, PO, l mg oral 16:18: BID, 0 Andrew capsule 00 Refill(s) Docusate 2020-07 Yes 100 mg = 1 Mem oria Sodium 100 0-29 cap, PO, l MG Oral 16:18: BID, 0 [place] Capsule 00 Refill(s) docusate 2020-07 Yes 100 mg = 1 Mem oria sodium 100 0-29 cap, PO, l mg oral 16:18: BID, 0 Andrew capsule 00 Refill(s) Docusate 2020-07 Yes 100 mg = 1 Mem oria Sodium 100 0-29 cap, PO, l MG Oral 16:18: BID, 0 [place] Capsule 00 Refill(s) docusate 2020-07 Yes 100 [...] PO, l MG Oral 16:18: BID, 0 [place] Capsule 00 Refill(s) docusate 2020-07 Yes 100 mg = 1 Mem oria sodium 100 0-29 cap, PO, l mg oral 16:18: BID, 0 [place] capsule 00 Refill(s) docusate 2020-07 Yes 100 [...] PO, l MG Oral 16:18: BID, 0 [place] Capsule 00 Refill(s) docusate 2020-07 Yes 100 mg = 1 Mem oria sodium 100 0-29 cap, PO, l mg oral 16:18: BID, 0 [place] capsule 00 Refill(s) Docusate 2020-07 Yes 100 [...] PO, l MG Oral 16:18: BID, 0 [place] Capsule 00 Refill(s) docusate 2020-07 Yes 100 mg = 1 Mem oria sodium 100 0-29 cap, PO, l mg oral 16:18: BID, 0 Andrew capsule 00 Refill(s) Docusate 2020-07 Yes 100 mg = 1 Mem oria Sodium 100 0-29 cap, PO, l MG Oral 16:18: BID, 0 [place] Capsule 00 Refill(s) docusate 2020-07 Yes 100 mg = 1 Mem oria sodium 100 0-29 cap, PO, l mg oral 16:18: BID, 0 [place] capsule 00 Refill(s) Magnesium 2020-07 Yes PO, Daily, Me moria glycinate 0-29 0 l 16:17: Refill(s) [place] 00 magnesium 2020-07 Yes PO, Daily, Me moria glycinate 0-29 0 l 16:17: Refill(s) Andrew 00 CoQ10 2020-07 Yes 300 mg, Memoria 0-29 PO, Daily, l 16:17: 0 [place] 00 Refill(s) Vitamin D3 2020-07 Yes 0 [...] tab, PO, l tablet 16:16: Daily, # [place] 00 30 tab, 0 Refill(s) potassium 2020-07 [...] tab, PO, l tablet 16:16: Daily, # [place] 00 30 tab, 0 Refill(s) potassium 2020-07 Yes 10 mEq = 1 Me moria chloride 10 0-29 cap, PO, l mEq oral 16:16: BID, # 180 Her sarmiento capsule, 00 cap, 0 extended Refill(s) release clopidogrel 2020-07 Yes 75 mg = 1 M emoria 75 mg oral 0-29 tab, PO, l tablet 16:16: Daily, # [place] 00 30 tab, 0 Refill(s) potassium 2020-07 Yes 10 mEq = 1 Me moria chloride 10 0-29 cap, PO, l mEq oral 16:16: BID, # 180 Her sarmiento capsule, 00 cap, 0 extended Refill(s) release clopidogrel 2020-07 Yes 75 mg = 1 M emoria 75 mg oral 0-29 tab, PO, l tablet 16:16: Daily, # [place] 00 30 tab, 0 Refill(s) potassium 2020-07 Yes 10 mEq = 1 Me moria chloride 10 0-29 cap, PO, l mEq oral 16:16: BID, # 180 Her sarmiento capsule, 00 cap, 0 extended Refill(s) release clopidogrel 2020-07 Yes 75 mg = 1 M emoria 75 mg oral 0-29 tab, PO, l tablet 16:16: Daily, # Andrew 00 30 tab, 0 Refill(s) clopidogrel 2020-07 [...] tab, PO, l tablet 16:16: Daily, # [place] 00 30 tab, 0 Refill(s) potassium 2020-07 [...] tab, PO, l tablet 16:16: Daily, # [place] 00 30 tab, 0 Refill(s) potassium 2020-07 Yes 10 mEq = 1 Me moria chloride 10 0-29 cap, PO, l mEq oral 16:16: BID, # 180 Her sarmiento capsule, 00 cap, 0 extended Refill(s) release clopidogrel 2020-07 Yes 75 mg = 1 M emoria 75 mg oral 0-29 tab, PO, l tablet 16:16: Daily, # [place] 00 30 tab, 0 Refill(s) pantoprazol 2020-0 Yes 0 Memori a e 40 mg 7-29 Refill(s) l oral 16:06: [place] enteric 00 coated tablet pantoprazol 2020-0 Yes 0 Memori a e 40 mg 7-29 Refill(s) l oral 16:06: [place] enteric 00 coated tablet pantoprazol 2020-0 Yes 0 Memori a e 40 mg 7-29 Refill(s) l oral 16:06: [place] enteric 00 coated tablet pantoprazol 2020-0 Yes 0 Memori a e 40 mg 7-29 Refill(s) l oral 16:06: [place] enteric 00 coated tablet pantoprazol 2020-0 Yes 0 Memori a e 40 mg 7-29 Refill(s) l oral 16:06: [place] enteric 00 coated tablet pantoprazol 2020-0 Yes 0 Memori a e 40 mg 7-29 Refill(s) l oral 16:06: [place] enteric 00 coated tablet pantoprazol 2020-0 Yes 0 Memori a e 40 mg 7-29 Refill(s) l oral 16:06: [place] enteric 00 coated tablet pantoprazol 2020-0 Yes 0 Memori a e 40 mg 7-29 Refill(s) l oral 16:06: Andrew enteric 00 coated tablet pantoprazol 2020-0 Yes 0 Memori a e 40 mg 7-29 Refill(s) l oral 16:06: Andrew enteric 00 coated tablet pantoprazol 2020-0 Yes 0 Memori a e 40 mg 7-29 Refill(s) l oral 16:06: [place] enteric 00 coated tablet pantoprazol Yes 0 Memori a e 40 mg 7-29 Refill(s) l oral 16:06: Andrew enteric 00 coated tablet pantoprazol Yes 0 Memori a e 40 mg 7-29 Refill(s) l oral 16:06: [place] enteric 00 coated tablet pantoprazol Yes 0 Memori a e 40 mg 7-29 Refill(s) l oral 16:06: [place] enteric 00 coated tablet pantoprazol Yes 0 Memori a e 40 mg 7-29 Refill(s) l oral 16:06: [place] enteric 00 coated tablet aspirin Yes 81 mg, PO, Aman omaira [...] aspirin 0 Yes 81 mg, PO, Aman omaiar 4-01 [...] 2020-0 Yes 81 mg, PO, Aman omaira 4- Daily, 0 l 16:45: Refill(s) [place] 00 aspirin 2020- Yes 81 mg, PO, Aman omaira 4- Daily, 0 l 16:45: Refill(s) [place] 00 Promethazin 2020-0 Yes 5 mL, PO, M [...] mL, NEB, l Inhalant 16:44: Q6H, 0 [place] Solution 00 Refill(s) Albuterol Yes 2.5 mg = 3 Me moria 0.83 MG/ML 4-01 mL, NEB, l Inhalant 16:44: Q6H, 0 [place] Solution 00 Refill(s) Promethazin 0 Yes 5 mL, PO, M emoria e DM oral 10-15 Q6H, PRN l syrup 16:44: for cough, Manny n 00 # 120 mL, 0 Refill(s) Ventolin 0 Yes 2 puff, Memori a HFA -01 INHALATION l 16:44: , QID, 0 Andrew 00 Refill(s) albuterol Yes 2.5 mg = 3 Me moria 0.083% 4-01 mL, NEB, l inhalation 16:44: Q6H, 0 Shari nn solution 00 Refill(s) Albuterol Yes 2.5 mg = 3 Me moria 0.83 MG/ML 4-01 mL, NEB, l Inhalant 16:44: Q6H, 0 [place] Solution 00 Refill(s) Promethazin 2021-0 Yes 5 mL, PO, M emoria e DM oral 4-01 Q6H, PRN l syrup 16:44: for cough, Manny n 00 # 120 mL, 0 Refill(s) Ventolin 2020-0 Yes 2 puff, Memori a HFA 4-01 INHALATION l 16:44: , QID, 0 [place] 00 Refill(s) albuterol Yes 2.5 mg = [...] -01 INHALATION l 16:44: , QID, 0 [place] 00 Refill(s) albuterol 0 Yes 2.5 mg [...] 4- INHALATION l 16:44: , QID, 0 [place] 00 Refill(s) albuterol 2020-0 Yes 2.5 mg = 3 Me moria 0.083% 4-01 mL, NEB, l inhalation 16:44: Q6H, 0 Shari nn solution 00 Refill(s) Albuterol 2020-0 Yes 2.5 mg = 3 Me moria 0.83 MG/ML 4-01 mL, NEB, l Inhalant 16:44: Q6H, 0 [place] Solution 00 Refill(s) Promethazin 2020-0 Yes 5 mL, PO, M emoria e DM oral 4-01 Q6H, PRN l syrup 16:44: for cough, Manny n 00 # 120 mL, 0 Refill(s) Ventolin 2020-0 Yes 2 puff, Memori a HFA 4-01 INHALATION l 16:44: , QID, 0 Andrew 00 Refill(s) albuterol 2021-0 Yes 2.5 mg [...] 4-01 INHALATION l 16:44: , QID, 0 [place] 00 Refill(s) albuterol 2020-0 Yes 2.5 mg [...] 4-01 INHALATION l 16:44: , QID, 0 [place] 00 Refill(s) albuterol 2020-0 Yes 2.5 mg = 3 Me moria 0.083% 4-01 mL, NEB, l inhalation 16:44: Q6H, 0 Shari nn solution 00 Refill(s) Albuterol 2020-0 Yes 2.5 mg = 3 Me moria 0.83 MG/ML 4-01 mL, NEB, l Inhalant 16:44: Q6H, 0 Andrew Solution 00 Refill(s) Promethazin 1-0 Yes 5 mL, PO, M emoria e [...] mL, NEB, l Inhalant 16:44: Q6H, 0 [place] Solution 00 Refill(s) Promethazin 2020-0 Yes 5 [...] 4- INHALATION l 16:44: , QID, 0 [place] 00 Refill(s) albuterol 2020-0 Yes 2.5 mg [...] 0 Shari nn solution 00 Refill(s) promethazin Yes 0 Memori a e 4-01 Refill(s) l 16:43: [place] Promethazin 2020-0 Yes 0 Memori a e 4-01 Refill(s) l 16:43: Andrew 00 Promethazin 2020-0 Yes 0 Memori a e 4-01 Refill(s) l 16:43: [place] promethazin 2020-0 Yes 0 Memori a e 4-01 Refill(s) l 16:43: Andrew Promethazin 2020-0 Yes 0 Memori a e 4-01 Refill(s) l 16:43: [place] promethazin 2020-0 Yes 0 Memori a e 4-01 Refill(s) l 16:43: Andrew 00 Promethazin 2020-0 Yes 0 Memori a e 4-01 Refill(s) l 16:43: Andrew 00 promethazin 2020-0 Yes 0 Memori a e 4-01 Refill(s) l 16:43: [place] 00 Promethazin 2020-0 Yes 0 Memori a e 4-01 Refill(s) l 16:43: Andrew 00 Promethazin 2020-0 Yes 0 Memori a e 4-01 Refill(s) l 16:43: Andrew 00 promethazin 2020-0 Yes 0 Memori a e 4-01 Refill(s) l 16:43: [place] Promethazin 202-0 Yes 0 Memori a e 4-01 Refill(s) l 16:43: Andrew promethazin 2020-0 Yes 0 Memori a e 4-01 Refill(s) l 16:43: [place] 00 Promethazin 2020-0 Yes 0 Memori a e 4-01 Refill(s) l 16:43: [place] 00 promethazin 2020-0 Yes 0 Memori a e 4-01 Refill(s) l 16:43: [place] 00 Promethazin 2020-0 Yes 0 Memori a e 4-01 Refill(s) l 16:43: [place] 00 promethazin 2020-0 Yes 0 Memori a e 4-01 Refill(s) l 16:43: Andrew 00 promethazin 2020-0 Yes 0 Memori a e 4-01 Refill(s) l 16:43: Promethazin 2020-0 Yes 0 Memori a e 4-01 Refill(s) l 16:43: promethazin 2020-0 Yes 0 Memori a e 4-01 Refill(s) l 16:43: Promethazin 2020-0 Yes 0 Memori a e 4-01 Refill(s) l 16:43: [place] 00 promethazin 2020-0 Yes 0 Memori a e 4-01 Refill(s) l 16:43: Promethazin 2020-0 Yes 0 Memori a e 4-01 Refill(s) l 16:43: Andrew 00 promethazin 202-0 Yes 0 Memori a e 4-01 Refill(s) l 16:43: [place] 00 Promethazin 2020-0 Yes 0 Memori a e 4-01 Refill(s) l 16:43: Andrew 00 Promethazin 202-0 Yes 0 Memori a e 4-01 Refill(s) l 16:43: [place] 00 promethazin 202-0 Yes 0 Memori a e 4-01 Refill(s) l 16:43: Premarin 2020-0 Yes VAG, 0 Memoria Vaginal 4-01 Refill(s) l 16:42: Andrew 00 Premarin 2020-0 Yes VAG, 0 Memoria Vaginal 4-01 Refill(s) l 16:42: Andrew 00 Premarin 2020-0 Yes VAG, 0 Memoria Vaginal 4-01 Refill(s) l 16:42: arin 2020-0 Yes VAG, 0 Memoria Vaginal 4-01 Refill(s) l 16:42: Premarin 2020-0 Yes VAG, 0 Memoria Vaginal 4-01 Refill(s) l 16:42: arin 2020-0 Yes VAG, 0 Memoria Vaginal 4-01 Refill(s) l 16:42: Premarin 2020-0 Yes VAG, 0 Memoria Vaginal 4-01 Refill(s) l 16:42: arin 2020-0 Yes VAG, 0 Memoria Vaginal 4-01 Refill(s) l 16:42: arin 2020-0 Yes VAG, 0 Memoria Vaginal 4-01 Refill(s) l 16:42: arin 2020-0 Yes VAG, 0 Memoria Vaginal 4-01 Refill(s) l 16:42: arin 2020-0 Yes VAG, 0 Memoria Vaginal 4-01 Refill(s) l 16:42: arin 2020-0 Yes VAG, 0 Memoria Vaginal 4-01 Refill(s) l 16:42: arin 0 Yes VAG, 0 Memoria Vaginal 4-01 Refill(s) l 16:42: arin 2020-0 Yes VAG, 0 Memoria Vaginal 4-01 Refill(s) l 16:42: atorvastati 0 Yes 40 mg, PO, Memoria n 4-01 Bedtime, 0 l 16:41: Refill(s) atorvastati 0 Yes 40 mg, PO, Memoria n 4-01 Bedtime, 0 l 16:41: Refill(s) atorvastati 0 Yes 40 mg, PO, Memoria n 4-01 Bedtime, 0 l 16:41: Refill(s) atorvastati 0 Yes 40 mg, PO, Memoria n 10-15 [...] a ine 10-15 Instructio l 16:40: ns, [place] 1-2caps TID, 0 Refill(s) levocetiriz Yes See Memori a ine 10-15 Instructio l 16:40: ns, [place] 1-2caps TID, 0 Refill(s) levocetiriz Yes See Memori a ine 10-15 Instructio l 16:40: ns, [place] 1-2caps TID, 0 Refill(s) levocetiriz 2020-0 Yes See Memori a ine - Instructio l 16:40: ns, [place] 00 1-2caps TID, 0 Refill(s) levocetiriz 2020-0 Yes See Memori a ine 10-15 Instructio l 16:40: ns, [place] 00 1-2caps TID, 0 Refill(s) levocetiriz 2020-0 Yes See Memori a ine 10-15 Instructio l 16:40: ns, [place] 00 1-2caps TID, 0 Refill(s) levocetiriz 2020-0 Yes See Memori a ine 10-15 Instructio l 16:40: ns, [place] 00 1-2caps TID, 0 Refill(s) levocetiriz 2020-0 Yes See Memori a ine 10-15 Instructio l 16:40: ns, Andrew 00 1-2caps TID, 0 Refill(s) levocetiriz 2020-0 Yes See Memori a ine 10-15 Instructio l 16:40: ns, [place] 00 1-2caps TID, 0 Refill(s) levocetiriz 2020-0 Yes See Memori a ine 10-15 Instructio l 16:40: ns, [place] 00 1-2caps TID, 0 Refill(s) levocetiriz 2020-0 Yes See Memori a ine 10-15 Instructio l 16:40: ns, [place] 00 1-2caps TID, 0 Refill(s) levocetiriz 2020-0 Yes See Memori a ine 10-15 Instructio l 16:40: ns, [place] 00 1-2caps TID, 0 Refill(s) levocetiriz 2020-0 Yes See Memori a ine 10-15 Instructio l 16:40: ns, [place] 00 1-2caps TID, 0 Refill(s) levocetiriz 2020-0 Yes See Memori a ine 10-15 Instructio l 16:40: ns, [place] 00 1-2caps TID, 0 Refill(s) levocetiriz 2020-0 Yes See Memori a ine 10-15 Instructio l 16:40: ns, [place] 00 1-2caps TID, 0 Refill(s) levocetiriz 2020-0 Yes See Memori a ine 4- Instructio l 16:40: ns, [place] 00 1-2caps TID, 0 Refill(s) levocetiriz 2020-0 Yes See Memori a ine 4- Instructio l 16:40: ns, [place] 00 1-2caps TID, 0 Refill(s) levocetiriz 2020-0 Yes See Memori a ine 10-15 Instructio l 16:40: ns, [place] 00 1-2caps TID, 0 Refill(s) levocetiriz 2020-0 Yes See Memori a ine - Instructio l 16:40: ns, [place] 00 1-2caps TID, 0 Refill(s) levocetiriz 2020-0 Yes See Memori a ine - Instructio l 16:40: ns, [place] 00 1-2caps TID, 0 Refill(s) levocetiriz 2020-0 Yes See Memori a ine 10-15 Instructio l 16:40: ns, [place] 00 1-2caps TID, 0 Refill(s) levocetiriz 2020-0 Yes See Memori a ine 10-15 Instructio l 16:40: ns, Andrew 00 1-2caps TID, 0 Refill(s) levocetiriz 2020-0 Yes See Memori a ine - Instructio l 16:40: ns, [place] 00 1-2caps TID, 0 Refill(s) levocetiriz 2020-0 Yes See Memori a ine 4- Instructio l 16:40: ns, Andrew 00 1-2caps TID, 0 Refill(s) levocetiriz 2020-0 Yes See Memori a ine 4- Instructio l 16:40: ns, [place] 00 1-2caps TID, 0 Refill(s) levocetiriz 2020-0 Yes See Memori a ine 4- Instructio l 16:40: ns, [place] 00 1-2caps TID, 0 Refill(s) levocetiriz 2020-0 Yes See Memori a ine 4- Instructio l 16:40: ns, [place] 00 1-2caps TID, 0 Refill(s) Metolazone 2020-0 Yes 5 mg, PO, Me moria 4- Q-M and l 16:39: Th, # 15 [place] 00 tab, 0 Refill(s) Metolazone 2020-0 Yes 5 mg, PO, Me moria - Q-M and l 16:39: Th, # 15 [place] 00 tab, 0 Refill(s) Metolazone 2020-0 Yes 5 mg, PO, Me moria 4- Q-M and l 16:39: Th, # 15 [place] 00 tab, 0 Refill(s) Metolazone 2020-0 Yes 5 mg, PO, Me moria 4- Q-M and l 16:39: Th, # 15 [place] 00 tab, 0 Refill(s) Metolazone 2020-0 Yes 5 mg, PO, Me moria - Q-M and l 16:39: Th, # 15 [place] 00 tab, 0 Refill(s) Metolazone 2020-0 Yes 5 mg, PO, Me moria - Q-M and l 16:39: Th, # 15 tab, 0 Refill(s) Metolazone 2020-0 Yes 5 mg, PO, Me moria - Q-M and l 16:39: Th, # 15 Andrew 00 tab, 0 Refill(s) Metolazone 2020-0 Yes 5 mg, PO, Me moria - Q-M and l 16:39: Th, # 15 tab, 0 Refill(s) Metolazone 2020-0 Yes 5 mg, PO, Me moria 4- Q-M and l 16:39: Th, # 15 [place] 00 tab, 0 Refill(s) Metolazone 2020-0 Yes 5 mg, PO, Me moria 4- Q-M and l 16:39: Th, # 15 [place] 00 tab, 0 Refill(s) Metolazone 2020-0 Yes 5 mg, PO, Me moria 4- Q-M and l 16:39: Th, # 15 tab, 0 Refill(s) Metolazone 2020-0 Yes 5 mg, PO, Me moria 4-01 Q-M and l 16:39: Th, # 15 [place] 00 tab, 0 Refill(s) Metolazone 2020-0 Yes 5 mg, PO, Me moria 4- Q-M and l 16:39: Th, # 15 [place] 00 tab, 0 Refill(s) Metolazone 2020-0 Yes 5 mg, PO, Me moria 4- Q-M and l 16:39: Th, # 15 [place] 00 tab, 0 Refill(s) Spironolact 2020-0 Yes 50 mg, PO, Memoria one 10-15 Daily, # l 16:38: 60 tab, 0 Andrew 00 Refill(s) Spironolact 2020-0 Yes 50 mg, PO, Memoria one 10-15 Daily, # l 16:38: 60 tab, 0 [place] 00 Refill(s) spironolact 2020-0 Yes 50 mg, PO, Memoria one - Daily, # l 16:38: 60 tab, 0 [place] 00 Refill(s) Spironolact 2020-0 Yes 50 mg, PO, Memoria one 4- Daily, # l 16:38: 60 tab, 0 [place] 00 Refill(s) spironolact 2020-0 Yes 50 mg, PO, Memoria one - Daily, # l 16:38: 60 tab, 0 [place] 00 Refill(s) Spironolact 2020-0 Yes 50 mg, [...] Daily, # l 16:38: 60 tab, 0 [place] 00 Refill(s) Spironolact 2020-0 Yes 50 mg, PO, Memoria one 4- Daily, # l 16:38: 60 tab, 0 [place] 00 Refill(s) spironolact 2020-0 Yes 50 mg, PO, Memoria one 4 Daily, # l 16:38: 60 tab, 0 [place] 00 Refill(s) Spironolact 2020-0 Yes 50 mg, PO, Memoria one 4 Daily, # l 16:38: 60 tab, 0 [place] 00 Refill(s) spironolact 2020-0 Yes 50 mg, PO, Memoria one 10-15 Daily, # l 16:38: 60 tab, 0 [place] 00 Refill(s) Spironolact 2020-0 Yes 50 mg, PO, Memoria one 4 Daily, # l 16:38: 60 tab, 0 [place] 00 Refill(s) Spironolact 2020-0 Yes 50 mg, PO, Memoria one 4- Daily, # l 16:38: 60 tab, 0 [place] 00 Refill(s) spironolact 2020-0 Yes 50 mg, PO, Memoria one 4 Daily, # l 16:38: 60 tab, 0 [place] 00 Refill(s) spironolact 2020-0 Yes 50 mg, PO, Memoria one 4- Daily, # l 16:38: 60 tab, 0 [place] 00 Refill(s) Spironolact 2020-0 Yes 50 mg, PO, Memoria one 4- Daily, # l 16:38: 60 tab, 0 [place] 00 Refill(s) Spironolact 2020-0 Yes 50 mg, PO, Memoria one 4- Daily, # l 16:38: 60 tab, 0 [place] 00 Refill(s) spironolact 2020-0 Yes 50 mg, PO, Memoria one 4- Daily, # l 16:38: 60 tab, 0 [place] 00 Refill(s) Spironolact 2020-0 Yes 50 mg, [...] [facility] potassium 2018-07 Yes 10meq [id number] Take [address] [facility] chloride 0-09 [id number] mEq by Shoaib es (KLOR-CON) 19:51: 3D [...] [facility] potassium 2018-07 Yes 10meq Q.[id number] Take [address] [facility] chloride 0-09 [id number] mEq by Shoaib es (KLOR-CON) 19:51: 3D [...] [facility] potassium 2018-07 Yes 10meq [id number] Take [address] [facility] chloride 0-09 [id number] mEq by Shoaib es (KLOR-CON) 19:51: 3D [...] [facility] potassium 2018-07 Yes 10meq Q.[id number] Take [address] [facility] chloride 0-09 [id number] mEq by Shoaib wilkins (KLOR-CON) 19:51: 3D [...] [facility] potassium 2018-07 Yes 10meq Q.[id number] Take [address] [facility] chloride 0-09 [id number] mEq by Shoaib es (KLOR-CON) 19:51: 3D [...] [facility] potassium 2018-07 Yes 10meq Q.[id number] Take [address] [facility] [address] chloride 0-09 [id number] mEq by Shoaib es (KLOR-CON) 19:51: 3D [...] [facility] potassium 2018-07 Yes 10meq Q.[id number] Take [address] [facility] [address] chloride 0-09 [id number] mEq by Shoaib es (KLOR-CON) 19:51: 3D [...] [facility] potassium 2018-07 Yes 10meq Q.[id number] Take [address] [facility] [address] chloride 0-09 [id number] mEq by Shoaib es (KLOR-CON) 19:51: 3D [...] [facility] potassium 2018-07 Yes 10meq Q.[id number] Take [address] [facility] [address] chloride 0-09 [id number] mEq by Shoaib wilkins (KLOR-CON) 19:51: 3D [...] [facility] potassium 2018-07 Yes 10meq Q.[id number] Take [address] [facility] [address] chloride 0-09 [id number] mEq by Shoaib es (KLOR-CON) 19:51: 3D [...] [facility] potassium 2018-07 Yes 10meq Q.[id number] Take [address] [facility] [address] chloride 0-09 [id number] mEq by Shoaib es (KLOR-CON) 19:51: 3D [...] [facility] potassium 2018-07 Yes 10meq Q.[id number] Take [address] [facility] [address] chloride 0-09 [id number] mEq by Shoaib es (KLOR-CON) 19:51: 3D [...] [facility] potassium 2018-07 Yes 10meq Q.[id number] Take [address] [facility] [address] chloride 0-09 [id number] mEq by Shoaib es (KLOR-CON) 19:51: 3D [...] Observation Value Comments Source Systolic (mm Hg) 2023-05-23 21:16:00 [facility] Diastolic (mm Hg) 2023-05-23 21:16:00 [facility] Heart Rate 2023-05-23 21:16:00 [facility] Height 2023-05-23 21:16:00 5 [ft_i] [facility] Weight 2023-05-23 21:16:00 [facility] BMI Calculated 2023-05-23 21:16:00 [facility] Systolic (mm Hg) 2023-04-14 18:48:00 [facility] Diastolic (mm Hg) 2023-04-14 18:48:00 [facility] Heart Rate 2023-04-14 18:48:00 [facility] Height 2023-04-14 18:48:00 5 [ft_i] [facility] Weight 2023-04-14 18:48:00 [facility] BMI Calculated 2023-04-14 18:48:00 [facility] Systolic (mm Hg) 2023-01-26 20:44:00 [facility] [place] Diastolic (mm Hg) 2023-01-26 20:44:00 [facility] [place] Heart Rate 2023-01-26 20:44:00 [facility] Height 2023-01-26 20:44:00 5 [ft_i] [facility] Weight 2023-01-26 20:44:00 [facility] BMI Calculated 2023-01-26 20:44:00 [facility] Systolic (mm Hg) 2022-12-26 18:17:00 [facility] Diastolic (mm Hg) 2022-12-26 18:17:00 [facility] Heart Rate 2022-12-26 18:17:00 [facility] Height 2022-11-28 19:43:00 5 [ft_i] [facility] Weight 2022-11-28 19:43:00 [facility] BMI Calculated 2022-11-28 19:43:00 [facility] Systolic (mm Hg) 2022-11-28 19:43:00 [facility] Diastolic (mm Hg) 2022-11-28 19:43:00 [facility] [place] Heart Rate 2022-11-28 19:43:00 [facility] Systolic (mm Hg) 2022-08-25 17:48:00 [facility] [place] Diastolic (mm Hg) 2022-08-25 17:48:00 [facility] Heart Rate 2022-08-25 17:48:00 [facility] Height 2022-08-25 17:48:00 5 [ft_i] [facility] Weight 2022-08-25 17:48:00 [facility] BMI Calculated 2022-08-25 17:48:00 [facility] Systolic (mm Hg) 2022-06-03 17:27:00 [facility] Diastolic (mm Hg) 2022-06-03 17:27:00 [facility] [place] Heart Rate 2022-06-03 17:27:00 [facility] Height 2022-06-03 17:27:00 5 [ft_i] [facility] Weight 2022-06-03 17:27:00 [facility] BMI Calculated 2022-06-03 17:27:00 [facility] Respitory Rate 2022-04-11 15:12:00 [facility] Height 2022-04-11 15:12:00 162.56 cm [facility] Weight 2022-04-11 15:12:00 [facility] BMI Calculated 2022-04-11 15:12:00 [facility] Systolic (mm Hg) 2022-04-11 15:12:00 [facility] Diastolic (mm Hg) 2022-04-11 15:12:00 [facility] [place] Heart Rate 2022-04-11 15:12:00 [facility] Systolic (mm Hg) 2021-10-07 15:45:00 [facility] Diastolic (mm Hg) 2021-10-07 15:45:00 [facility] Heart Rate 2021-10-07 15:45:00 [facility] Respitory Rate 2021-10-07 15:45:00 [facility] Height 2021-10-07 15:45:00 160.02 cm [facility] Weight 2021-10-07 15:45:00 [facility] BMI Calculated 2021-10-07 15:45:00 [facility] Systolic (mm Hg) 2021-05-14 15:45:00 [facility] [place] Diastolic (mm Hg) 2021-05-14 15:45:00 [facility] Heart Rate 2021-05-14 15:45:00 [facility] Respitory Rate 2021-05-14 15:45:00 [facility] Height 2021-05-14 15:45:00 160.02 cm [facility] Weight 2021-05-14 15:45:00 [facility] BMI Calculated 2021-05-14 15:45:00 [facility] Systolic (mm Hg) 2021-02-11 15:35:00 [facility] Diastolic (mm Hg) 2021-02-11 15:35:00 [facility] Heart Rate 2021-02-11 15:35:00 [facility] Respitory Rate 2021-02-11 15:35:00 [facility] Height 2021-02-11 15:35:00 162.56 cm [facility] Weight 2021-02-11 15:35:00 [facility] BMI Calculated 2021-02-11 15:35:00 [facility] Systolic (mm Hg) 2020-11-12 15:12:00 Aman rial Andrew Diastolic (mm Hg) 2020-11-12 15:12:00 [facility] Heart Rate 2020-11-12 15:12:00 [facility] Respitory Rate 2020-11-12 15:12:00 [facility] Weight 2020-11-12 15:12:00 [facility] Systolic (mm Hg) 2020-10-15 16:26:00 Aman rial Andrew Diastolic (mm Hg) 2020-10-15 16:26:00 [facility] Heart Rate 2020-10-15 16:26:00 [facility] Respitory Rate 2020-10-15 16:26:00 [facility] Height 2020-10-15 16:26:00 160.02 cm [facility] Weight 2020-10-15 16:26:00 [facility] BMI Calculated 2020-10-15 16:26:00 [facility] Procedures Procedure Date / Time Performing Clinician Source Performed [id number] 2022-07-21 00:00:00 CHAAB.01 [facility] [id number] 2022-01-13 00:00:00 CHAAB.01 [facility] [id number] 2022-01-12 00:00:00 CHAAB.01 [facility] [id number] 2022-01-12 00:00:00 CHAAB.01 [facility] [id number] 2022-01-12 00:00:00 URBANOA [facility] [id number] 2022-01-12 00:00:00 URBANOA [facility] [id number] 2022-01-12 00:00:00 RASSA [facility] [id number] 2021-08-04 00:00:00 RASSA [facility] [id number] 2021-08-04 00:00:00 RASSA [facility] [id number] 2021-08-04 00:00:00 URBANOA [facility] [id number] 2021-05-09 00:00:00 SOPHIA [facility] CT HEART SCAN PLUS W 2021-03-03 15:31:21 [facility] PHYSICIAN ORDER US VASCULAR SCREENING 2021-03-03 15:13:36 [facility] HEART SCAN PLUS Carot[facility] endarterectomy<sup>1</sup> Chole[facility]ectomy [facility] Breast biopsy and related [facility] procedures Appendectomy [facility] Hysterectomy [facility] Plan of Care Planned Activity Planned Date Details Comments Source Future Scheduled 2023-05-13 COVID-19 VACCINE (#1) [facility] Test 09:20:58 [code = COVID-19 VACCINE (#1)] Future Scheduled 2023-05-13 Hepatitis C screening [facility] Test 09:20:58 (procedure) [code = 834279353] Future Scheduled 2023-05-13 SHINGLES VACCINES (1 [facility] Test 09:20:58 of 2) [code = SHINGLES VACCINES (1 of 2)] Future Scheduled 2023-05-13 65+ PNEUMOCOCCAL [facility] Test 09:20:58 VACCINE (1 - PCV) [code = 65+ PNEUMOCOCCAL VACCINE (1 - PCV)] Future Scheduled 2023-05-13 INFLUENZA VACCINE (#1) [facility] Test 09:20:58 [code = INFLUENZA VACCINE (#1)] Future Scheduled 2023-05-13 COVID-19 [facility]ACCINE (#[facility] 09:20:58 [code = COVID-19 VACCINE (#1)] Future Scheduled 2023-05-13 [facility] Test 09:20:58 (procedure) [code = 542257262] Future Scheduled 2023-05-13 [facility]ACCINES (1 [facility] Test 09:20:58 of 2) [code = SHINGLES VACCINES (1 of 2)] Future Scheduled 2023-05-13 65[facility] Test 09:20:58 VACCINE (1 - PCV) [code = 65+ PNEUMOCOCCAL VACCINE (1 - PCV)] Future Scheduled 2023-05-13 [facility]ZA [facility]ACCINE (#[facility] Test 09:20:58 [code = INFLUENZA VACCINE (#1)] Future Scheduled 2023-02-19 COVID-19 VACCINE (#1) [facility] Test 04:24:47 [code = COVID-19 VACCINE (#1)] Future Scheduled 2023-02-19 [facility] Test 04:24:47 (procedure) [code = 257429978] Future Scheduled 2023-02-19 SHINGLES VACCINES ([address] [facility] Test 04:24:47 of 2) [code = SHINGLES VACCINES (1 of 2)] Future Scheduled 2023-02-19 65+ [facility] Test 04:24:47 VACCINE (1 - PCV) [code = 65+ PNEUMOCOCCAL VACCINE (1 - PCV)] Future Scheduled 2023-02-19 INFLUENZA VACCINE [facility] Test 04:24:47 [code = INFLUENZA VACCINE] Future Scheduled 2022-12-24 COVID-19 VACCINE (#1) [facility] Test 01:25:09 [code = COVID-19 VACCINE (#1)] Future Scheduled 2022-12-24 [facility] Test 01:25:09 (procedure) [code = 102509119] Future Scheduled 2022-12-24 SHINGLES VACCINES (1 [facility] Test 01:25:09 of 2) [code = SHINGLES VACCINES (1 of 2)] Future Scheduled 2022-12-24 65+ [facility] Test 01:25:09 VACCINE (1 - PCV) [code = 65+ PNEUMOCOCCAL VACCINE (1 - PCV)] Future Scheduled 2022-12-24 INFLUENZA VACCINE [facility] Test 01:25:09 [code = INFLUENZA VACCINE] Future Scheduled 2022-11-21 COVID-19 VACCINE (#1) Me [facility] Test 12:06:57 [code = COVID-19 VACCINE (#1)] Future Scheduled 2022-11-21 Hepatitis C screening [facility] Test 12:06:57 (procedure) [code = 321799461] Future Scheduled 2022-11-21 COLONOSCOPY SCREENING [facility] Test 12:06:57 [code = COLONOSCOPY SCREENING] Future Scheduled 2022-11-21 SHINGLES VACCINES ([address] [facility] Test 12:06:57 of 2) [code = SHINGLES VACCINES (1 of 2)] Future Scheduled 2022-11-21 65+ [facility]OCOCCAL [facility] Test 12:06:57 VACCINE (1 - PCV) [code = 65+ PNEUMOCOCCAL VACCINE (1 - PCV)] Future Scheduled 2022-11-21 INFLUENZA VACCINE [facility] Test 12:06:57 [code = INFLUENZA VACCINE] Future Scheduled 2022-07-31 COLONOSCOPY SCREENING [facility] Test 12:44:36 [code = COLONOSCOPY SCREENING] Future Scheduled 2022-07-31 SHINGLES VACCINES ([address] [facility] Test 12:44:36 of 2) [code = SHINGLES VACCINES (1 of 2)] Future Scheduled 2022-07-31 65+ P[facility]OCOCCAL [facility] Test 12:44:36 VACCINE (1 - PCV) [code = 65+ PNEUMOCOCCAL VACCINE (1 - PCV)] Future Scheduled 2022-07-31 INFLUENZA VACCINE [facility] Test 12:44:36 [code = INFLUENZA VACCINE] Future Scheduled 2022-07-31 COVID-19 VACCINE (#1) [facility] Test 12:44:36 [code = COVID-19 VACCINE (#1)] Future Scheduled 2022-07-31 Hepatitis C screening [facility] Test 12:44:36 (procedure) [code = 064859083] Future Scheduled 2022-07-31 COLONOSCOPY SCREENING [facility] Test 12:44:36 [code = COLONOSCOPY SCREENING] Future Scheduled 2022-07-31 SHINGLES VACCINES ([address] [facility] Test 12:44:36 of 2) [code = [...] [facility] Test 12:44:36 (procedure) [code = 724548549] Future Scheduled 2022-07-31 [facility]ING [facility] Test 12:44:36 [code = COLONOSCOPY SCREENING] Future Scheduled 2022-07-31 SHINGLES VACCINES ([address] [facility] Test 12:44:36 of 2) [code = [...] [facility] Test 12:44:36 (procedure) [code = 553747488] Future Scheduled 2022-07-21 COVID-19 VACCINE (#1) [facility] Test 13:14:09 [code = COVID-19 VACCINE (#1)] Future Scheduled 2022-07-21 [facility] Test 13:14:09 (procedure) [code = 754686211] Future Scheduled 2022-07-21 [facility]CREENING [facility] Test 13:14:09 [code = COLONOSCOPY SCREENING] Future Scheduled 2022-07-21 SHINGLES VACCINES (1 [facility] Test 13:14:09 of 2) [code = SHINGLES VACCINES (1 of 2)] Future Scheduled 2022-07-21 65+ [facility] Test 13:14:09 VACCINE (1 - PCV) [code = 65+ PNEUMOCOCCAL VACCINE (1 - PCV)] Future Scheduled 2022-07-21 INFLUENZA VACCINE [facility] Test 13:14:09 [code = INFLUENZA VACCINE] Future Scheduled 2022-07-21 COVID[facility]19 [facility] (#[facility] Test 13:14:09 [code = COVID-19 VACCINE (#1)] Future Scheduled 2022-07-21 [facility] Test 13:14:09 (procedure) [code = 112012498] Future Scheduled 2022-07-21 [facility]CRE[facility]ING [facility] Test 13:14:09 [code = COLONOSCOPY SCREENING] Future Scheduled 2022-07-21 SHINGLES VACCINES (1 [facility] Test 13:14:09 of 2) [code = SHINGLES VACCINES (1 of 2)] Future Scheduled 2022-07-21 65+ PNEUMOCOCCAL [facility] Test 13:14:09 VACCINE (1 - PCV) [code = 65+ PNEUMOCOCCAL VACCINE (1 - PCV)] Future Scheduled 2022-07-21 INFLUENZA VACCINE [facility] Test 13:14:09 [code = INFLUENZA VACCINE] Future Scheduled 2022-07-21 COVID-19 VACCINE (#1) [facility] Test 13:14:09 [code = COVID-19 VACCINE (#1)] Future Scheduled 2022-07-21 Hepatitis C screening [facility] Test 13:14:09 (procedure) [code = 338929073] Future Scheduled 2022-07-21 COLONOSCOPY SCREENING [facility] Test 13:14:09 [code = COLONOSCOPY SCREENING] Future Scheduled 2022-07-21 SHINGLES VACCINES (1 [facility] Test 13:14:09 of 2) [code = SHINGLES VACCINES (1 of 2)] Future Scheduled 2022-07-21 65+ P[facility]UMOCOCCAL [facility] Test 13:14:09 VACCINE (1 - PCV) [code = 65+ PNEUMOCOCCAL VACCINE (1 - PCV)] Future Scheduled 2022-07-21 INFLUENZA VACCINE [facility] Test 13:14:09 [code = INFLUENZA VACCINE] Future Scheduled 2022-07-03 COVID-19 VACCINE (#1) [facility] Test 09:16:22 [code = COVID-19 VACCINE (#1)] Future Scheduled 2022-07-03 [facility] Test 09:16:22 (procedure) [code = 981911929] Future Scheduled 2022-07-03 COLONOSCOPY SCREENING [facility] Test 09:16:22 [code = COLONOSCOPY SCREENING] Future Scheduled 2022-07-03 SHINGLES VACCINES ([address] [facility] Test 09:16:22 of 2) [code [...] Future Scheduled 2022-07-03 [facility] Test 09:16:22 (procedure) [code = 863688692] Future Scheduled 2022-07-03 COLONOSCOPY SCREENING [facility] Test 09:16:22 [code = COLONOSCOPY SCREENING] Future Scheduled 2022-07-03 SHINGLES VACCINES ([address] [facility] Test 09:16:22 of 2) [code [...] 00:00:00 (1 of 1 - Medical Center [id number] PCV13) [code = PNEUMOCOCCAL 65+ YRS (1 of 1 - [id number]_[id number] PCV13)] Future Scheduled 1995-[birth year]-29 SHINGLES VACCINES (1 [...] [facility] es Test 00:00:00 [facility] (procedure) [code = 140126365] Future Scheduled COVID-19 VACCINE (1) [facility] [code = COVID-19 VACCINE (1)] Future Scheduled [facility] C [facility] Test (procedure) [code = 456173931] Future Scheduled BREAST CANCER [facility] Test SCREENING [code = BREAST CANCER [...] Department ID 2023-07-07 2023-07-07 Outpatient MHIE MHIE [id number] Memoria 11:15:00 11:15:00 21 todd Morales 2023-07-07 2023-07-07 Outpatient MHIE MHIE [id number] Memoria 11:15:00 11:15:00 21 todd Morales 2023-06-02 2023-06-03 Outpatient MHIE MNA [id number] Memoria 19:00:00 05:59:59 Neurology 20 l Andrés Morales 2023-06-02 2023-06-02 [id number] 13:00:00 23:59:59 Merritt 20 Cesar 2023-06-02 2023-06-02 Outpatient MHIE MHIE [id number] Memoria 13:00:00 13:00:00 20 todd Morales 2023-06-02 2023-06-02 Outpatient MHIE MHIE [id number] Memoria 13:00:00 13:00:00 20 todd Morales 2023-05-23 2023-05-24 Outpatient MHIE MNA [id number] Memoria 20:45:00 05:59:59 Neurology 19 l Andrés Morales 2023-05-23 2023-05-24 Outpatient MHIE MNA [id number] Memoria 20:45:00 05:59:59 Neurology 19 l Andrés Morales 2023-05-23 2023-05-23 [id number] 14:45:00 23:59:59 Merritt 19 Cesar 2023-05-23 2023-05-23 Outpatient MHIE MHIE [id number] Memoria 14:45:00 14:45:00 19 todd Morales 2023-05-01 2023-05-01 Outpatient GC_GCBZW_Ka PRIV PRIV [id number] [facility] 00:00:00 00:00:00 diyala_S [id number] Medic al 2023-05-01 2023-05-01 Outpatient GC_GCBZW_Ka PRIV PRIV [id number] [facility] 00:00:00 00:00:00 diyala_S [id number] Medic al 2023-04-28 2023-04-28 Ambulatory MHIE MNA [id number] Memoria 18:30:00 18:30:00 Pre-Reg Neurology 17 l Andrés Morales 2023-04-28 2023-04-28 Ambulatory MHIE MNA [id number] [facility]oria 18:30:00 18:30:00 Pre-Reg Neurology 17 l Andrés Morales 2023-04-28 2023-04-28 Outpatient MHIE MHIE [id number] Memoria 13:30:00 13:30:00 17 todd Morales 2023-04-28 2023-04-28 [id number] 13:30:00 13:30:00 Merritt 17 Cesar 2023-04-14 2023-04-15 Outpatient MHIE MNA [id number] Memoria 18:30:00 04:59:59 Neurology 18 l Andrés Morales 2023-04-14 2023-04-15 Outpatient MHIE MNA [id number] Memoria 18:30:00 04:59:59 Neurology 18 l Andrés Morales 2023-04-14 2023-04-14 [facility] [id number] 13:30:00 23:59:59 Merritt 18 Cesar 2023-04-14 2023-04-14 Outpatient MHIE MHIE [id number] Memoria 13:30:00 13:30:00 18 todd Morales 2023-03-03 2023-03-03 Outpatient GC_GCBZW_Ka PRIV PRIV [id number] [facility] 00:00:00 00:00:00 diyala_S [id number] Medic al 2023-03-03 2023-03-03 Outpatient GC_GCBZW_Ka PRIV PRIV [id number] [facility] 00:00:00 00:00:00 diyala_S [id number] Medic al 2023-03-01 2023-03-01 Outpatient GC_GCBZW_Ka PRIV PRIV [id number] [facility] 00:00:00 00:00:00 diyala_S [id number] Medic al 2023-02-27 2023-02-28 Inpatient Leonard [facility].01 [id number] [facility] 08:19:00 16:17:00 Mayte 03 [facility] 2023-02-22 2023-02-22 Outpatient GC_GCBZW_Ka PRIV PRIV [id number] [facility] 00:00:00 00:00:00 diyala_S [id number] Medic al 2023-02-16 2023-02-16 Outpatient GC_GCBZW_Ka PRIV PRIV [id number] [facility] 00:00:00 00:00:00 diyala_S [id number] Medic al 2023-02-15 2023-02-15 Outpatient GC_GCBZW_Ka PRIV PRIV [id number] [facility] 00:00:00 00:00:00 diyala_S [id number] Medic al 2023-01-26 2023-01-27 Outpatient MHIE MNA [id number] Memoria 20:30:00 04:59:59 Neurology 15 l Gonzales Andrew 2023-01-26 2023-01-27 Outpatient MHIE MNA [id number] [facility]oria 20:30:00 04:59:59 Neurology 15 l Andrés Andrew 2023-01-26 2023-01-26 Outpatient DANIA DerasSCHER MHMISCHER [id number] 15:30:00 23:59:59 Merritt 15 Cesar 2023-01-26 2023-01-26 Outpatient MHIE MHIE [id number] Memoria 15:30:00 15:30:00 15 todd Andrew 2022-12-26 2022-12-27 Outpatient MHIE MNA [id number] [facility]oria 18:15:00 04:59:59 Neurology 16 l Gonzales Andrew 2022-12-26 2022-12-27 Outpatient MHIE MNA [id number] [facility]oria 18:15:00 04:59:59 Neurology 16 l Gonzales Andrew 2022-12-26 2022-12-26 Outpatient DANIA DerasSCHER MHMISCHER [id number] 13:15:00 23:59:59 Merritt 16 Cesar 2022-12-26 2022-12-26 Outpatient MHIE MHIE [id number] [facility]oria 13:15:00 13:15:00 16 todd Andrew 2022-12-23 2022-12-23 Ambulatory MHIE MNA [id number] [facility]oria 16:00:00 16:00:00 Pre-Reg Neurology 12 todd Morales 2022-12-23 2022-12-23 Ambulatory MHIE MNA [id number] [facility]oria 16:00:00 16:00:00 Pre-Reg Neurology 12 l Andrés Morales 2022-12-23 2022-12-23 Outpatient MHIE MHIE [id number] [facility]oria 11:00:00 11:00:00 12 todd Morales 2022-12-23 2022-12-23 Outpatient PATTI DerasKYSCHER MHMISCHER [id number] 11:00:00 11:00:00 Merritt 12 Cesar 2022-12-20 2022-12-20 Ambulatory MHIE MNA [id number] [facility]oria 15:30:00 15:30:00 Pre-Reg Neurology 08 l Andrés Morales 2022-12-20 2022-12-20 Ambulatory MHIE MNA [id number] [facility]oria 15:30:00 15:30:00 Pre-Reg Neurology 08 l Andrés Morales 2022-12-20 2022-12-20 Outpatient MHIE MHIE [id number] [facility]oria 10:30:00 10:30:00 08 todd Morales 2022-12-20 2022-12-20 Outpatient DANIA DerasSCHER MHMISCHER [id number] 10:30:00 10:30:00 Merritt 08 Cesar 2022-12-15 2022-12-16 Outpatient MHIE MNA [id number] [facility]oria 18:00:00 04:59:59 Neurology 14 todd Morales 2022-12-15 2022-12-16 Outpatient MHIE MNA [id number] [facility]oria 18:00:00 04:59:59 Neurology 14 todd Morales 2022-12-15 2022-12-15 Outpatient DANIA DerasSCHER MHMISCHER [id number] 13:00:00 23:59:59 Merritt 14 Cesar 2022-12-15 2022-12-15 Outpatient MHIE MHIE [id number] [facility]oria 13:00:00 13:00:00 14 todd Morales 2022-11-28 2022-11-29 Outpatient MHIE MNA [id number] [facility] 19:30:00 04:59:59 Neurology 13 todd Morales 2022-11-28 2022-11-29 Outpatient MHIE MNA [id number] [facility]oria 19:30:00 04:59:59 Neurology 13 todd Morales 2022-11-28 2022-11-28 [facility] [id number] 14:30:00 23:59:59 Merritt 13 Cesar 2022-11-28 2022-11-28 Outpatient MHIE MHIE [id number] Memoria 14:30:00 14:30:00 13 todd Morales 2022-08-25 2022-08-26 Outpatient MHIE MNA [id number] [facility]oria 17:45:00 05:59:59 Neurology 11 todd Morales 2022-08-25 2022-08-26 Outpatient MHIE MNA [id number] [facility]oria 17:45:00 05:59:59 Neurology 11 todd Morales 2022-08-25 2022-08-25 [facility] [id number] 11:45:00 23:59:59 Merritt 11 Cesar 2022-08-25 2022-08-25 Outpatient MHIE MHIE [id number] [facility]oria 11:45:00 11:45:00 11 todd Morales 2022-08-03 2022-08-03 Ambulatory MHIE MNA [id number] [facility]oria 17:15:00 17:15:00 Pre-Reg Neurology 10 todd Morales 2022-08-03 2022-08-03 Ambulatory MHIE MNA [id number] [facility]oria 17:15:00 17:15:00 Pre-Reg Neurology 10 todd Morales 2022-08-03 2022-08-03 Outpatient MHIE MHIE [id number] Memoria 11:15:00 11:15:00 10 todd Morales 2022-08-03 2022-08-03 Outpatient Augusta MHKYSCHER MHMISCHER [id number] 11:15:00 11:15:00 Merritt 10 Cesar 2022-07-27 2022-07-27 Outpatient EILEEN Willard-Her [facility] [id number] [facility] 16:22:00 16:22:00 Hallie salcedo 46 [facility] 2022-07-21 2022-07-22 Inpatient LORI Bowman INTE [id number] [facility] 05:12:00 11:48:[address] [place] [address] 2022-06-03 2022-06-04 Outpatient MHIE MNA [id number] Memoria 17:15:00 05:59:59 Neurology 09 l Andrés Andrew 2022-06-03 2022-06-04 Outpatient MHIE MNA [id number] [facility]oria 17:15:00 05:59:59 Neurology 09 l Gonzales Andrew 2022-06-03 2022-06-03 Outpatient DANIA DerasSCHER MHMISCHER [id number] 11:15:00 23:59:59 Merritt Vane Cesar 2022-06-03 2022-06-03 Outpatient MHIE MHIE [id number] Memoria 11:15:00 11:15:00 09 todd CanoAndrew 2022-04-12 2022-04-12 Ambulatory nullFlavo MNA [id number] [facility] 15:00:00 15:00:00 Pre-Reg r Neurology 06 l Gonzales Andrew 2022-04-12 2022-04-12 Ambulatory nullFlavo MNA [id number] [facility] 15:00:00 15:00:00 Pre-Reg r Neurology 06 l Andrés Morales 2022-04-12 2022-04-12 Outpatient MHIE MHIE [id number] Memoria 10:00:00 10:00:00 Sharri brooks Andrew 2022-04-12 2022-04-12 Outpatient PATTI DerasKYSCHJESUS MISCHER [id number] 10:00:00 10:00:00 Merritt Sharri Cesar 2022-04-11 2022-04-12 Outpatient nullFlavo MNA [id number] [facility] 15:00:00 04:59:59 r Neurology 07 l Gonzales Andrew 2022-04-11 2022-04-12 Outpatient nullFlavo MNA [id number] [facility] 15:00:00 04:59:59 r Neurology 07 l Gonzales Andrew 2022-04-11 2022-04-11 Outpatient Augusta MHMISCHER MHMISCHER [id number] 10:00:00 23:59:59 Merritt Porfirio Guerrero 2022-04-11 2022-04-11 Outpatient MHIE MHIE [id number] Memoria 10:00:00 10:00:00 07 todd Morales 2022-01-12 2022-01-14 [facility] [id number] [facility] 18:19:00 15:56:00 Rj 45 [facility] 2022-01-12 2022-01-14 In[facility] [id number] [facility] 18:19:00 15:56:00 Rj 81646 [facility] 2021-11-03 2021-11-03 Inpatient [facility] [id number] [facility] 04:56:00 04:56:00 Devon 31 [facility] 2021-10-07 2021-10-08 Outpatient nullFlavo MNA [id number] Memoria 15:30:00 04:59:59 r Neurology 05 todd Canoann 2021-10-07 2021-10-08 Outpatient nullFlavo MNA [id number] [facility] 15:30:00 04:59:59 r Neurology 05 todd Morales 2021-10-07 2021-10-07 Outpatient PATTI DerasMISCHER MHMISCHER [id number] 10:30:00 23:59:59 Merritt Reyes Guerrero 2021-10-07 2021-10-07 Outpatient MHIE MHIE [id number] Memoria 10:30:00 10:30:00 05 todd Morales 2021-08-04 2021-08-06 Inpatient JOSE RussellCL TELE [id number] [facility] 21:05:00 12:24:00 Devon 94 [facility] 2021-05-14 2021-05-15 Outpatient nullFlavo MNA [id number] Memoria 15:30:00 04:59:59 r Neurology 04 l Andrés Stapleton 2021-05-14 2021-05-15 Outpatient nullFlavo MNA [id number] [facility] 15:30:00 04:59:59 r Neurology 04 l Andrés Andrew 2021-05-14 2021-05-14 [id number] 10:30:00 23:59:59 Merritt Gavi Guerrero 2021-05-14 2021-05-14 Outpatient MHIE SABI [id number] Memoria 10:30:00 10:30:00 04 todd Morales 2021-05-07 2021-05-12 Inpatient NATE Bishop, [facility].01 [id number] [facility] 22:34:00 14:15:00 Christopher 86 [facility] 2021-05-03 2021-05-05 Inpatient EILEEN Whatley, [facility] [id number] [facility] 10:30:00 05:25:00 Devon 50 [facility] 2021-03-03 2021-03-03 [facility], 1.2.840.1 [id number] Methodi 09:20:50 23:59:00 Encounter Garth [id number] 3.430.2.7 Hospit a .3.575258 l .8 2021-03-03 2021-03-03 [facility], 1.2.840.1 [id number] Methodi 09:15:00 09:19:00 Encounter Garth [id number] 3.430.2.7 Hospit a .3.343952 l .8 2021-03-03 2021-03-03 Travel 1.2.840.1 1.2.098.710 [id number] Methodi 00:00:00 00:00:[address] 3.430.2.7 0.2.7.3.698 [facility] .3.254914 084.8 l .8 2021-02-11 2021-02-12 Outpatient nullFlavo MNA [id number] Memoria 15:15:00 04:59:59 r Neurology 03 l Andrés Morales 2021-02-11 2021-02-12 Outpatient nullFlavo MNA [id number] [facility] 15:15:00 04:59:59 r Neurology 03 l Andrés Morales 2021-02-11 2021-02-11 [id number] 10:15:00 23:59:59 [place] 03 Cesar 2021-02-11 2021-02-11 Outpatient MHIE MHIE [id number] Memoria 10:15:00 10:15:00 03 todd Morales 2021-02-08 2021-02-08 Travel 1.2.840.1 [id number] Methodi 00:00:00 00:00:[address] 3.430.2.7 0.2.7.3.698 Ho spita .3.750996 084.8 l .8 2021-02-03 2021-02-03 Transcribe Sandeep 1.2.840.1 [id number] Methodi 00:00:00 00:00:00 Orders Garth [address]1.[address] 3.430.2.7 Hospit a .3.835843 l .8 2020-11-12 2020-11-13 Outpatient nullFlavo MNA [id number] Memoria 15:00:00 04:59:59 r Neurology 02 l Andrés Morales 2020-11-12 2020-11-13 Outpatient nullFlavo MNA [id number] Memoria 15:00:00 04:59:59 r Neurology 02 l Andrés Morales 2020-11-12 2020-11-12 [id number] 10:00:00 23:59:59 [place] Cesar 2020-11-12 2020-11-12 Outpatient MHIE MHIE [id number] Memoria 10:00:00 10:00:00 02 todd Morales 2020-11-03 2020-11-04 Outpatient nullFlavo MNA [id number] Memoria 18:00:00 04:59:59 r Neurology 01 l Andrés Morales 2020-11-03 2020-11-04 Outpatient nullFlavo MNA [id number] Memoria 18:00:00 04:59:59 r Neurology 01 l Andrés Morales 2020-11-03 2020-11-03 [id number] 13:00:00 23:59:59 [place] 01 Cesar 2020-11-03 2020-11-03 Outpatient [facility] [id number] Memoria 13:00:00 13:00:00 01 todd Morales 2020-10-15 2020-10-16 Outpatient nullFlavo MNA [id number] Memoria 16:30:00 04:59:59 r Neurology 00 l Andrés Morales 2020-10-15 2020-10-16 Outpatient nullFlavo MNA [id number] Memoria 16:30:00 04:59:59 r Neurology 00 l Andrés Morales 2020-10-15 2020-10-15 [facility] [id number] 11:30:00 23:59:59 [place] 00 Cesar 2019-04-24 2019-05-03 Inpatient 3 KARLO DURAN CVA 487954-1 01 Encompa 20:39:00 11:00:00 [facility] [address] [facility] [place] Results Test Description Test Time Test Comments [...] the [place] mmended formula for GFRby the [facility] for Adults.The GFR will not calcul ate if the sex is unknown or if t hepatient's age is <18 years. CREATININE (test code = 1.1 MG/DL 0.6-1.0 H CREAT) CALCIUM (test code = CA) 9.0 MG/DL 8.5-10.1 N [id number] 04:52:00 Test Item Value Reference Range Interpretation Comments CREATININE (test code = CREAT) 1.0 MG/DL 0.6-1.0 N Comment: Stat creatinine if not already performedCBC W/AUTO [id number] 04:49:00 Test Item Value Reference Range Interpretation [...] code NO DIFF/SCN CRITERIA = MDIFF) PROTHROMBIN [id number] 09:50:00 Test Item Value Reference Range Interpretation [...] (to prevent recurrent infar ct). THROMBOPLASTIN TIME [id number] 09:50:00 Test Item Value Reference Range Interpretation Comments THROMBOPLASTIN TIME PARTIAL 24.7 SECONDS 26-35 L (test code = PTT) CBC W/AUTO [id number] 09:49:00 Test Item Value Reference Range Interpretation [...] NO DIFF/SCN CRITERIA = MDIFF) BASIC METABOLIC [id number] 09:29:00 Test Item Value Reference Range Interpretation [...] recommended for nadir for GFRby the [facility] for Ad[facility].The GFR will not calculate i f the sex is unknown or if thepatient's ag e is <18 years. CREATININE (test 1.1 MG/DL 0.6-1.0 H code = CREAT) CALCIUM (test code 9.7 MG/DL 8.5-10.1 N = CA) - XR CHEST 1 [id number] 08:47:00 [facility] 1945 [facility]: F [facility]: [facility] 1945 Age/S: / F [address] Unit #: [id number] Loc: [place] [address] Phys: Bonifacio Perez MD Acct: [id number] Dis Date: Status: ADM IN PHONE #: [phone] Exam Date: 02/27/2023 0837 FAX #: Reason: SURGERY EXAMS: CPT: [id number] XR CHEST 1 V 40144 Fluoro Time: DAP (Gy m2): Air Kerma (mGy): Chest Radiograph History: SURGERY Comparison: July 19, 2022 Location: 5 A single frontal view of the chest is submitted. The heart appears unchanged in size. Pulmonary vasculature is unremarkable. The visualized lung maurer appear to be free of disease. The bones appear unchanged. IMPRESSION: There is no radiographic evidence of acute cardiopulmonary disease. at 0847 Reported and signed by: Marcelino Valdes M.D. CC: Mayte Valle MD; Hallie Charles NP; Bonifacio Perez MD PAGE 1 Signed Report Name: MARLA CAMPOS [place] : 1945 Age/S: / F [place] Unit #: [id number] Loc: [place] [address] Phys: Bonifacio Perez MD Acct: [id number] Dis Date: Status: ADM IN PHONE #: [phone] Exam Date: 02/27/2023 08 FAX #: Reason: SURGERY EXAMS: CPT: [id number] XR CHEST 1 V 70022 Fluoro Time: DAP (Gy m2): Air Kerma (mGy): (Continued) Technologist: Zayra Kraft Trnscb Date/Time: 02/27/2023 (0847) [email or web address] Orig Print D/T: S: 02/27/2023 (9895) PAGE 2 Signed Report- US HEAD AND [id number] 17:00:00 [facility] : 1945 Sex: F FAX: Yumiko Mayer [phone] [place]: St: REG Name: MARLA CAMPOS [facility] : 1945 Age/S: 76/F [address] [facility] Unit #: [id number] Loc: [place], [place] 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 There is mild diffuse softtissue edema, but no localized fluid collections or hematoma noted. at 1700 Reported and signed by: Ravi Calderon M.D. 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 [address] Acct: [id number] Dis Date: Status: REG CLI PHONE #: [phone] Exam Date: 07/27/2022 1651 FAX #: [phone] Reason: LOCALIZED SWELLING,MASS,LUMP/HEMATOMA EXAMS: CPT CODE: [id number] US HEAD AND NECK 33258 (Continued) Orig Print D/T: S: 07/27/2022 (1703) PAGE 2 Signed ReportSURGICAL 2022-07-22 15:10:00 Test Item Value Reference Range Interpretation Comments SURGICAL (test code = SR) -----RUN DATE: 07/22/22 [place] - LAB PAGE 1 RUN TIME: 1510 Specimen Inquiry RUN USER: INTERFACE -----PATIENT: MARLA CAMPOS LOC: [place] U #: [id number] AGE/SX: 76/F ROOM: [facility] RE07/21/22REG DR: Robert Gold : [birth year] BED: 1 DIS: 07/22/22 STATUS: DIS IN TLOC: ----- SPEC #: [id number] RECD: 07/21/22-7 STATUS: ZONIA REGhislaine #: [id number] YOHAN: 07/21/22- SUBM DR: Robert Gold MD ENTERED: 07/21/22-1040 SP TYPE: SURGICAL OTHR DR: Garth Hopkins MD, Anas MDORDERED: 60731, ANATOMIC SPEC COPIES TO: Robert Gold MD [address] [place] [address]. [address] [place] [id number] Garth Hopkins MD [address] [facility] [place] [address] Chi Valencia MD [address] [place] [id number] PROCEDURES: 44697 (07/21/22-104) TISSUES: A. CAROTID PLAQUE WITH DECAL CLINICAL HISTORY SAME FINAL DIAGNOSIS Carotid plaque, left, endarterectomy: Atherosclerotic plaque with calcification. GROSS DESCRIPTION Received in formalin labeled "left carotid artery "are 2 segments of lehman-yellowatherosclerotic plaques , up to 3.4 cm in length, 0.8 cm in diameter, with representativesections submitted (A). Technical component performed at [facility],[address] [place] [address], [place] [address] Unless gross only, the diagnosis is based upon microscopic examination. CONTINUED ON NEXT PAGE -----RUN DATE: 07/22/22 [place] - LAB PAGE 2 RUN TIME: 1510 Specimen Inquiry RUN USER: INTERFACE -----SPEC #: [id number] PATIENT: MARLA CAMPOS #[id number] (Continued) GROSS DESCRIPTION (Continued) Immunohistochemistry: This test [...] SIGNATURE ON FILE Arnold Evans 07/22/22 1510 ----- END OF REPORT CBC W/AUTO [id number] 06:49:00 Test Item Value Reference Range Interpretation [...] (test code NO = MDIFF) BASIC METABOLIC [id number] 06:18:00 Test Item Value Reference Range Interpretation [...] the recommended for nadir for GFRby the [facility] for Ad[facility].The GFR will not calculate if th e sex is unknown or if thepatient's ag e is <18 years. CREATININE (test 1.0 mg/dL 0.6-1.3 N code = CREAT) CALCIUM (test code = 8.8 mg/dL 8.0-10.5 N CA) BASIC METABOLIC [id number] 09:59:00 Test Item Value Reference Range Interpretation [...] = 8.7 mg/dL 8.0-10.5 N CA) HGB [id number] 09:51:00 Test Item Value Reference Range Interpretation Comments HEMOGLOBIN (test code = HGB) 10.9 g/dL 11.0-15.0 L HEMATOCRIT (test code = HCT) 33.4 % 33.0-45.0 N [id number] 08:02:00 Test Item Value Reference Range Interpretation Comments ACT-ISTAT (test code 287 SEC 74-137 H Perform ed by certified = ACTI) reserve operator at [facility] COVID 19 Asymptomatic IH [id number] 15:19:00 Test Item Value Reference Range Interpretation [...] y tests. UA RFLX MICR CULT IF [id number] 13:20:00 Test Item Value Reference Range Interpretation [...] Indication for culture: Flank PainSpecimen Description: CLEAN CATCH COMPREHENSIVE METABOLIC [id number] 13:13:00 Test Item Value Reference Range Interpretation [...] = HGBA1C%) 5.2 %A1C 4.8-6.0 N PROTHROMBIN [id number] 12:55:00 Test Item Value Reference Range Interpretation [...] (to prevent recurrent infar ct). THROMBOPLASTIN TIME [id number] 12:55:00 Test Item Value Reference Range Interpretation Comments THROMBOPLASTIN TIME 26.4 Seconds 25.0-39.5 N Therape utic Range: PARTIAL (test code = 50.4 - 88.3 Seconds PTT) Effective 10/30/2018 CBC W/AUTO [id number] 12:45:00 Test Item Value Reference Range Interpretation [...] code NO = MDIFF) - DUP EXTRACRANIAL [id number] 00:00:00 [facility] 1945 Sex: F Name: MARLA CAMPOS [facility] : 1945 Age/S: 76 / F [address] [place] [address] Blvd Unit #: [id number] Loc: [place] [address] Phys: Robert Gold MD Acct: [id number] Dis Date: Status: PRE INPHONE #: [phone] Exam Date: 07/19/2022 1358 FAX #: [phone] Reason: 165.22. EXAMS: CPT CODE: [id number] DUP EXTRACRANIAL DIGNA 25522 PROCEDURE INFORMATION: Exam: US Duplex Bilateral Extracranial [...] 1 Signed Report (CONTINUED) Name: MARLA CAMPOS [facility] : 1945 Age/S: 76 / F [address] [place] [address] Blvd Unit #: [id number] Loc: [place] [address] Phys: Robert Gold MD Acct: [id number] Dis Date: Status: PRE IN PHONE #: [phone] Exam Date: 07/19/2022 1358 FAX #: [phone] Reason: 165.22. EXAMS: CPT CODE: [id number] DUP EXTRACRANIAL DIGNA 41002 (Continued) CC: Robert Gold MD Technologist: Janice Meneses RDMS(AB) Trnazb Date/Time: 07/19/2022 (1602) [email or web address] Orig Print D/T: S: 07/19/2022 (160) Probe: PAGE 2 Signed Report- XR CHEST 2 [id number] 00:00:00 [facility] 1945 Sex: F FAX:Robert Watt [phone] [place]: St: PRE Name: MARLA CAMPOS [facility] : 1945 Age/S: 76/F [address] [place] [address] Unit #: [id number] Loc: [place] [address] Phys: [id number] Dis Date: Status: PRE IN PHONE #: [phone] Exam Date: 07/19/2022 1317 FAX #: Reason: PREOP EXAMS: CPT CODE: [id number] XR CHEST 2 V 24509 PROCEDURE INFORMATION: Exam: XR Chest Exam date [...] pneumothorax. Heart/Mediastinum: The heart size is normal. Vasculature:Aortic arch calcifications are present. Bones/joints: No acute abnormality. IMPRESSION: No acute cardiopulmonary process. at 1552 Reported and signed by: Eliud Martinez M.D. CC: Robert Gold MD Technologist: RT Rhianna(Vahid) Trnscrd Date/Time/By: 07/19/2022 (1552) : By: [email or web address] PAGE 1 Signed ReportSURGICAL 2022-01-18 15:32:00 Test Item Value Reference Range Interpretation Comments SURGICAL (test code = SR) R UN DATE: 01/18/22 [place] - [facility] PAGE 1 RUN TIME: 1532 Specimen Inquiry RUN USER: INTERFACE P ATIENT: MARLA CAMPOS [facility] #[facility] [id number] AGE/SX: 76/F ROOM: [facility] RE01/12/22REG DR: Rj Evans DO : [birth year] BED: 1 DIS: 01/14/22 STATUS: DIS IN TLOC: SPEC #: [id number] RECD: 01/14/22 STATUS: ZONIA CAMARA #: [id number] YOHAN: 01/13/22- SUBM DR: Rj Evans DO ENTERED: 01/14/22 SP TYPE: SURGICAL OTHR DR: Edyta Reynolds MD, Abdul Hannan MD Dalal, Rajesh V MD Mouchli, Anas MD Raslan, Saleem MDORDERED: 97708, ANATOMIC SPEC COPIES TO: Edyta Reynolds MD [address] [place] [address] Robert Gold MD [address] [facility]. [address] [place] [address] Garth Hopkins MD [address] [place] [address] Chi Valencia MD [address] [place] [address] Devon Whatley MD [address] [facility] [address] [place] [address] Rj Evans DO [address] [place] [address] PROCEDURES: 30926 (01/14/22) TISSUES: A. ARTERY, ATHEROMATOUS PLAQUE - RT CONTINUED ON NEXT PAGE R UN DATE: 01/18/22 [place] - LAB PAGE 2 RUN TIME: 1532 Specimen Inquiry RUN USER: INTERFACE S PEC #: [id number] PATIENT: MARLA CAMPOS #[id number] (Continued) CLINICAL HISTORY SAME FINAL DIAGNOSIS Right carotid plaque, segment: Atherosclerotic plaque. GROSS DESCRIPTION Received is 1 segment of arroyo-white fibrotic tissue measuring 3.1 cm in largest dimension. Sections are submitted. Technical component performed at [facility],[address] [place] [address] Unless gross only, the diagnosis is based [...] 01/18/22 1532 END OF REPORT BASIC METABOLIC [id number] 05:12:00 Test Item Value Reference Range Interpretation [...] code = 8.2 mg/dL 8.0-10.5 N CA) [id number] 05:12:00 Test Item Value Reference Range Interpretation Comments MAGNESIUM (test code = MAG) 2.54 mg/dL 1.80-2.40 H CBC W/AUTO [id number] 04:59:00 Test Item Value Reference Range Interpretation [...] (test code NO = MDIFF) BASIC METABOLIC [id number] 18:30:00 Test Item Value Reference Range Interpretation [...] code = 8.0 mg/dL 8.0-10.5 N CA) [id number] 18:30:00 Test Item Value Reference Range Interpretation Comments PHOSPHOROUS (test code = PHOS) 3.1 MG/DL 2.5-4.9 N [id number] 18:30:00 Test Item Value Reference Range Interpretation Comments MAGNESIUM (test code = MAG) 1.47 mg/dL 1.80-2.40 L CALCIUM [id number] 18:30:00 Test Item Value Reference Range Interpretation Comments CALCIUM IONIZED (test code = ETHAN) 1.21 MMOL/L 1.12-1.32 N CBC W/AUTO [id number] 18:11:00 Test Item Value Reference Range Interpretation [...] (test NO code = MDIFF) BASIC METABOLIC [id number] 15:19:00 Test Item Value Reference Range Interpretation [...] = 8.3 mg/dL 8.0-10.5 N CA) HGB [id number] 14:35:00 Test Item Value Reference Range Interpretation Comments HEMOGLOBIN (test code = HGB) 10.4 g/dL 11.0-15.0 L HEMATOCRIT (test code = HCT) 30.5 % 33.0-45.0 L [id number] 13:05:00 Test Item Value Reference Range Interpretation Comments ACT-ISTAT (test code 347 SEC 74-137 H Perform ed by certified = ACTI) reserve operator at [facility] COMPREHENSIVE METABOLIC [id number] 11:59:00 Test Item Value Reference Range Interpretation [...] (test code = LDL) NEAR OPTIM AL/ABOVE [id number] [id number] 89 HIGH>IB=886 [place] HIGH*Guidelines provided by the National Ch[place] terol EducationProgra m Adult Treatment Panel III [id number] 11:59:00 Test Item Value Reference Range Interpretation Comments MAGNESIUM (test code = MAG) 1.85 mg/dL 1.80-2.40 N PROTHROMBIN [id number] 10:22:00 Test Item Value Reference Range Interpretation [...] (to prevent recurrent infar ct). THROMBOPLASTIN TIME [id number] 10:22:00 Test Item Value Reference Range Interpretation Comments THROMBOPLASTIN TIME 22.6 Seconds 25.0-39.5 L Therape utic Range: PARTIAL (test code = 50.4 - 88.3 Seconds PTT) Effective 10/30/2018 CBC W/AUTO [id number] 09:58:00 Test Item Value Reference Range Interpretation [...] code = MDIFF) COVID 19 Asymptomatic IH [id number] 07:05:00 Test Item Value Reference Range Interpretation [...] waivedcomplexit y tests. 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 CC: Hallie Charles NP; Vilma TRAN; Rj Evans DO Technologist: Carmenza Mckeon RT(R) Trnscrd Date/Time/By: 01/13/2022 (1323) : By: [email or web address] Orig Print D/T: S: 01/13/2022 (1323) PAGE 1 Signed ReportBASIC METABOLIC [id number] 13:29:00 Test Item Value Reference Range Interpretation [...] = 9.7 mg/dL 8.0-10.5 N CA) PROTHROMBIN [id number] 13:21:00 Test Item Value Reference Range Interpretation [...] (to prevent recurrent infar ct). CBC W/AUTO [id number] 13:15:00 Test Item Value Reference Range Interpretation [...] DIFF REQUIRED (test code NO = MDIFF) [id number] 14:15:00 Test Item Value Reference Range Interpretation Comments ACT-ISTAT (test code 142 SEC 74-137 H Perform ed by certified = ACTI) reserve operator at [facility] [id number] 12:33:00 Test Item Value Reference Range Interpretation Comments ACT-ISTAT (test code 184 SEC 74-137 H Perform ed by certified = ACTI) reserve operator at [facility] [id number] 11:07:00 Test Item Value Reference Range Interpretation Comments ACT-ISTAT (test code 255 SEC 74-137 H Perform ed by certified = ACTI) reserve operator at [facility] BASIC METABOLIC [id number] 14:51:00 Test Item Value Reference Range Interpretation [...] = 9.5 mg/dL 8.0-10.5 N CA) PROTHROMBIN [id number] 14:46:00 Test Item Value Reference Range Interpretation [...] (to prevent recurrent infar ct). CBC W/AUTO [id number] 14:37:00 Test Item Value Reference Range Interpretation [...] NO = MDIFF) - XR CHEST 2 [id number] 00:00:00 [facility] 1945 Sex: F FAX:Devon Reese MD [phone] [place]: St: PRE Name: MARLA CAMPOS [facility] : 1945 Age/S: 75/F [address] [place] [address] Unit #: [id number] Loc: [place] [address] Phys: Devon Whatley MD Acct: [id number] Dis Date: Status: PRE [facility] PHONE #: [phone] Exam Date: 11/01/2021 1342 FAX #: [phone] Reason: PREOP EXAMS: CPT CODE: [id number] XR CHEST 2 V 22835 PROCEDURE INFORMATION: Exam: XR Chest Exam date [...] findings. IMPRESSION: No acute cardiopulmonary findings at 0209 Reported and signed by: Jose Duran D.O. CC: Devon Whatley MD Technologist: RT Rina(R) Trnscrd Date/Time/By: 11/01/2021 (1945) : By: [email or web address] Orig Print D/T: S: 11/01/2021 (7313) PAGE 1 Signed ReportHGB [id number] 08:45:00 Test Item Value Reference Range Interpretation Comments HEMOGLOBIN (test code = HGB) 8.9 g/dL 11.0-15.0 L HEMATOCRIT (test code = HCT) 27.4 % 33.0-45.0 L B-TYPE NATRIURETIC [id number] 15:10:00 Test Item Value Reference Range Interpretation Comments B-TYPE NATRIURETIC PEPTIDE (test 59.0 PG/ML 0-100 N code = BNP) BASIC METABOLIC [id number] 14:55:00 Test Item Value Reference Range Interpretation [...] 8.7 mg/dL 8.0-10.5 N CA) CBC W/AUTO [id number] 14:39:00 Test Item Value Reference Range Interpretation [...] DIFF REQUIRED (test code NO = MDIFF) [id number] 19:05:00 Test Item Value Reference Range Interpretation Comments ACT-ISTADagoberto (test code 154 SEC 74-137 H Perform ed by certified = ACTI) reserve operator at [facility] [id number] 17:59:00 Test Item Value Reference Range Interpretation Comments ACT-ISTAT (test code 178 SEC 74-137 H Perform ed by certified = ACTI) reserve operator at [facility] [id number] 17:08:00 Test Item Value Reference Range Interpretation Comments ACT-ISTAT (test code 207 SEC 74-137 H Perform ed by certified = ACTI) reserve operator at [facility] [id number] 16:04:00 Test Item Value Reference Range Interpretation Comments ACT-ISTAT (test code 243 SEC 74-137 H Perform ed by certified = ACTI) reserve operator at [facility] [id number] 15:26:00 Test Item Value Reference Range Interpretation Comments ACT-ISTAT (test code 237 SEC 74-137 H Perform ed by certified = ACTI) reserve operator at [facility] BASIC METABOLIC [id number] 14:58:00 Test Item Value Reference Range Interpretation [...] = 9.6 mg/dL 8.0-10.5 N CA) PROTHROMBIN [id number] 14:51:00 Test Item Value Reference Range Interpretation [...] (to prevent recurrent infar ct). CBC W/AUTO [id number] 14:46:00 Test Item Value Reference Range Interpretation [...] NO = MDIFF) - XR CHEST 2 [id number] 00:00:00 [facility] : 1945 Sex: F FAX:Devon Reese MD [phone] [place]: [address] St: PRE Name: MARLA CAMPOS [facility] [place] : 1945 Age/S: 75/F [address] [place] [address] Blvd Unit #: [id number] Loc: [place] [address] Phys: Devon Whatley MD Acct: [id number] Dis Date: Status: PRE SDC PHONE #: [phone] Exam Date: 08/02/2021 1340 FAX #: [phone] Reason: PREOP EXAMS: CPT CODE: [id number] XR CHEST 2 V 05049 PROCEDURE INFORMATION: Exam: XR Chest Exam date [...] MD Technologist: RT Corrine(R) Trnscrd Date/Time/By: 08/02/2021 (1418) : By: [email or web address] Orig Print D/T: S: 08/02/2021 (4613) PAGE 1 Signed ReportCBC W/AUTO [id number] 08:01:00 Test Item Value Reference Range Interpretation [...] (test code NO = MDIFF) BASIC METABOLIC [id number] 07:50:00 Test Item Value Reference Range Interpretation [...] code = 9.5 mg/dL 8.0-10.5 N CA) [id number] 07:50:00 Test Item Value Reference Range Interpretation Comments MAGNESIUM (test code = MAG) 1.70 mg/dL 1.80-2.40 L BASIC METABOLIC [id number] 07:53:00 Test Item Value Reference Range Interpretation [...] code = 8.6 mg/dL 8.0-10.5 N CA) [id number] 07:53:00 Test Item Value Reference Range Interpretation Comments MAGNESIUM (test code = MAG) 1.68 mg/dL 1.80-2.40 L CBC W/AUTO [id number] 07:46:00 Test Item Value Reference Range Interpretation [...] (test code NO = MDIFF) CBC W/AUTO [id number] 08:42:00 Test Item Value Reference Range Interpretation [...] x10 3/uL 0.0-0.1 N NRBC#) BASIC METABOLIC [id number] 08:13:00 Test Item Value Reference Range Interpretation [...] code = 8.9 mg/dL 8.0-10.5 N CA) [id number] 08:13:00 Test Item Value Reference Range Interpretation Comments MAGNESIUM (test code = MAG) 1.49 mg/dL 1.80-2.40 L GLUCOSE [id number] 12:42:00 Test Item Value Reference Range Interpretation Comments GLUCOSE BEDSIDE (test 113 MG/DL 70-110 H Perfor med by certified code = GLUBED) reserve operator at [facility] HGB [id number] 11:54:00 Test Item Value Reference Range Interpretation Comments HEMOGLOBIN (test code = HGB) 12.9 g/dL 11.0-15.0 N HEMATOCRIT (test code = HCT) 36.8 % 33.0-45.0 N CBC W/AUTO [id number] 08:27:00 Test Item Value Reference Range Interpretation [...] (test code NO = MDIFF) BASIC METABOLIC [id number] 08:04:00 Test Item Value Reference Range Interpretation [...] code = 9.3 mg/dL 8.0-10.5 N CA) [id number] 08:04:00 Test Item Value Reference Range Interpretation Comments MAGNESIUM (test code = MAG) 1.44 mg/dL 1.80-2.40 L COVID 19 Asymptomatic IH [id number] 19:17:00 Test Item Value Reference Range Interpretation [...] moderate, high or waivedcomplexit y tests. HGB [id number] 11:49:00 Test Item Value Reference Range Interpretation [...] reported as: 35 .3 % CBC W/AUTO [id number] 11:45:00 Test Item Value Reference Range Interpretation [...] (test code NO = MDIFF) BASIC METABOLIC [id number] 07:46:00 Test Item Value Reference Range Interpretation [...] mg/dL 8.0-10.5 N CA) PLT RESPONSE TO [id number] 00:38:00 Test Item Value Reference Range Interpretation [...] be rejected by our instrumentation . HGB [id number] 00:35:00 Test Item Value Reference Range Interpretation Comments HEMOGLOBIN (test code = HGB) 11.5 g/dL 11.0-15.0 N HEMATOCRIT (test code = HCT) 33.3 % 33.0-45.0 N - CT ABD PELVIS W/O [id number] 00:00:00 [facility] 1945 Sex: F Name: MARLA CAMPOS [facility] : 1945 Age/S: 75 / F [address] [place], [place] [address] Unit #: [id number] Loc: [place] [address] Phys: David Chong MD Acct: [id number] Dis Date: Status: ADM IN PHONE #: [phone] Exam Date: 05/08/2021 1537 FAX #: [phone] Reason: abd pain, melena EXAMS: CPT CODE: [id number] CT ABD PELVIS W/O CONT 27798 PROCEDURE INFORMATION: Exam: CT Abdomen And Pelvis [...] AM FINDINGS: ABDOMINAL ORGANS: No acute CT a bnormalities of the liver, spleen, pancreas, adrenal glands or kidneys are detected. There is no evidence of acute renal collecting system obstruction or calcified renal collecting system stones. The 16 mm low-density lesion arising from the posterolateral cortex of the upper pole the right kidney demonstrates internal attenuation values compatible with a benign cyst for which no follow-up imaging isrecommended. BILIARY: The gallbladder is normally distended. No [...] aorta is normal in caliber. No evidence ofretroperitoneal mass or enlarged retroperitoneal lymph nodes. PELVIS: The patient is status post hysterectomy. No adnexal masses or enlarged pelvic lymph nodes are identified. A pessary is noted in thevagina. The bladder has an unremarkable appearance. LOWER THORAX: The lung bases appear clear of acute disease. Scarring or atelectasis is noted in the posterior basilar right lower lobe. ADDITIONL FINDINGS: None. PAGE 1 Signed Report (CONTINUED) Name: MARLA CAMPOS [facility] : 1945 Age/S: 75 / F [address] [place] [address] Unit #: [id number] Loc: [place] [address] Phys: David Chong [facility] Acct: [id number] Dis Date: Status: ADM IN PHONE #: [phone] Exam Date: 05/08/2021 1537 FAX #: [phone] Reason: abd pain, melena EXAMS: CPT CODE: [id number] CT ABD PELVIS W/O CONT 76244 (Continued) IMPRESSION: 1. No acute CT abnormalities of the abdomen or pelvis are detected. SL:131 at 1706 Reported and signed by: Devin Freedman M.D. CC: David Chong MD Technologist:RT Martine(R)(CT) CTDI: DLP: Trnscb Date/Time: 05/08/2021 (1705) Nikki Orig Print D/T: S: 05/08/2021 (1706) PAGE 2 SignedReportLACTIC [id number] 22:01:00 Test Item Value Reference Range Interpretation Comments LACTIC ACID (test code = LACT) 0.6 mmol/L 0.4-1.9 N BASIC METABOLIC [id number] 20:49:00 Test Item Value Reference Range Interpretation [...] 9.5 mg/dL 8.0-10.5 N CA) COMPREHENSIVE METABOLIC [id number] 20:49:00 Test Item Value Reference Range Interpretation [...] IUnit/L 20-125 N code = ALKP) PROTHROMBIN [id number] 20:43:00 Test Item Value Reference Range Interpretation [...] (to prevent recurrent infar ct). CBC W/O [id number] 20:35:00 Test Item Value Reference Range Interpretation [...] fL 7.0-9.0 H = MPV) COAGULATION TIME [id number] 20:22:00 Test Item Value Reference Range Interpretation Comments COAGULATION TIME 261 SECONDS Performed b y ACTIVATED (test code = certi fied reserve operator ACT) at [facility] COAGULATION TIME [id number] 20:22:00 Test Item Value Reference Range Interpretation Comments COAGULATION TIME 272 SECONDS Performed b y ACTIVATED (test code = certi fied reserve operator ACT) at [facility] PROTHROMBIN [id number] 12:32:00 Test Item Value Reference Range Interpretation [...] (to prevent recurrent infar ct). BASIC METABOLIC [id number] 12:16:00 Test Item Value Reference Range Interpretation [...] 9.4 mg/dL 8.0-10.5 N CA) CBC W/AUTO [id number] 12:03:00 Test Item Value Reference Range Interpretation [...] 3/uL 0.0-0.1 N NRBC#) - CHEST 2 [id number] 00:00:00 [facility] : 1945 Sex: F FAX:Devon Reese MD [phone] [place]: St: PRE Name: MARLA CAMPOS [facility] [place] : 1945 Age/S: 75/F [address] [place] [address] Unit #: [id number] Loc: [place] [address] Phys: Devon Whatley MD Acct: [id number] Dis Date: Status: PRE SDC PHONE #: [phone] Exam Date: 05/03/2021 1213 FAX #: [phone] Reason: PREOP EXAMS: CPT CODE: [id number] XR CHEST 2 V 19402 PROCEDURE INFORMATION: Exam: XR Chest Exam date [...] arch calcifications are present. Bones/joints: No acute abnormality.IMPRESSION: No acute cardiopulmonary process. at 1226 Reported and signed by: Eliud Martinez M.D. CC: Devon Whatley MD Technologist: RT Pam(Vahid) Trnscrd Date/Time/By: 05/03/2021 (9353) : By: [email or web address] Orig Print D/T: S: 05/03/2021 (7906) PAGE 1 Signed ReportCT Heart Scan Plus [...] of Atherosclerosis0-Normal 1-10 - Minimal extent of khnknnhsrpqejis21-941 - Mild extent of -952 - Moderate extent of atherosclerosis> 400 - Severe extent of atherosclerosis RECOMMENDATION:A score of 1197 places the patient in the 90th percentile rank. That means 10%of the females at the ages from 71-75 have a higher calcium score. Intensive risk factor modification is indicated to prevent further progression (>0). Please contact your physician regarding these results. INCIDENTAL FINDINGS:None [id number] Interface, Radiology Results Incoming 03/03/2021 10:47 AM CDT EXAMINATION: CT HEART [...] of Atherosclerosis0-Normal 1-10 - Minimal extent of irnrqsddtvawhxo46-949 - Mild extent of dhuqjbydvvdzoxa244-747 - Moderate extent of atherosclerosis> 400 - Severe extent of atherosclerosisRECOMMENDATION:A score of 1197 places the patient in the 90th percentile rank. That means 10% of the females at the ages from 71-75 have a higher calcium score. Intensive risk factor modification is indicated to prevent further progression (>0). Please contact your physician regarding these results.INCIDENTAL FINDINGS:[id number] vascular screening heart scan plus (self pay) [...] code = 2.9 meq/L 3.5-5.1 L 379) [id number] 07:21:00 Test Item Value Reference Range Interpretation Comments MAGNESIUM (BEAKER) (test code = 1.5 mg/dL 1.6-2.6 L 627) [id number] 06:36:00 Test Item Value Reference Range Interpretation Comments POTASSIUM (BEAKER) (test code = 3.5 meq/L 3.5-5.1 379) [id number] 06:36:00 Test Item Value Reference Range Interpretation Comments MAGNESIUM (BEAKER) (test code = 1.5 mg/dL 1.6-2.6 L 627) BASIC METABOLIC [id number] 10:13:00 Test Item Value Reference Range Interpretation [...] 1092) DATA TO CALCULA TE ESTIMATED GFR. [id number] 10:08:00 Test Item Value Reference Range Interpretation Comments MAGNESIUM (BEAKER) (test code = 1.4 mg/dL 1.6-2.6 L 627) [id number] 04:41:00 Test Item Value Reference Range Interpretation Comments MAGNESIUM (BEAKER) (test code = 1.4 mg/dL 1.6-2.6 L 627) BASIC METABOLIC [id number] 04:41:00 Test Item Value Reference Range Interpretation [...] ESTIMATED GFR. CBC W/PLT COUNT & AUTO [id number] 04:23:00 Test Item Value Reference Range Interpretation [...] (BEAKER) (test code = 2801) BASIC METABOLIC [id number] 06:29:00 Test Item Value Reference Range Interpretation [...] H (BEAKER) (test code = 652) CALCIUM (ERNIEAKER) 9.6 mg/dL 8.4-10.2 (test code = 697) EGFR (NORMA) (test INSUFFIC IENT CLINICAL code = 1092) DATA TO CALCULA TE ESTIMATED GFR. [id number] 06:26:00 Test Item Value Reference Range Interpretation Comments MAGNESIUM (NORMA) (test code = 1.4 mg/dL 1.6-2.6 L 627) POCT-GLUCOSE [id number] 04:52:00 Test Item Value Reference Range Interpretation Comments POC-GLUCOSE METER 103 mg/dL 70-110 TESTED AT [facility] 6720 (NORMA) (test code = KELSIE [place] 1538) [address] CT, BRAIN, WITHOUT [id number] 01:41:00Reason for exam:->Fall and hit head on [...] Verified Date/Time: 04/18/2019 01:41:45 CT, CEREBRAL PERFUSION [id number] 13:14:00Reason for exam:- >Assessment for collateral perfusionAnesthesia:->NoneFINAL [...] MDReport Verified Date/Time: 04/17/2019 13:14:17 CT, CAROTID, [id number] 13:27:00Reason for exam:->cvaFINAL REPORT CLINICAL HISTORY: cvaR [...] the diminutive distal right vertebral artery. Bilateral data analyst etl developer and branches are of normal caliber. The [...] Electronically signed by: Triston ARTIS 04/15/2019 01:27 [facility] [id number] 13:27:00Reason for exam:->right MCA strokeFINAL REPORT CLINICAL [...] the diminutive distal right vertebral artery. Bilateral data analyst etl developer and branches are of normal caliber. The [...] artery is of normal caliber. Signed: [facility] Verified Date/Time: 04/15/2019 13:27:10 Electronically signed by: Triston ARTIS 04/15/2019 01:27 PMURIC [id number] 06:14:00 Test Item Value Reference Range Interpretation Comments URIC ACID (BEAKER) (test code = 3.8 mg/dL 2.6-7.2 773) BASIC METABOLIC [id number] 06:36:00 Test Item Value Reference Range Interpretation [...] TO CALCULA TE ESTIMATED GFR. BASIC METABOLIC [id number] 06:09:00 Test Item Value Reference Range Interpretation [...] ESTIMATED GFR. CBC W/PLT COUNT & AUTO [id number] 05:36:00 Test Item Value Reference Range Interpretation [...] (BEAKER) (test code = 2801) BASIC METABOLIC [id number] 06:05:00 Test Item Value Reference Range Interpretation [...] TE ESTIMATED GFR. RAD, ABDOMEN/KUB, 1 VIEW [id number] 02:48:00Reason for exam:->Corpak placement 0111 AMFINAL REPORT [...] but conceivably may represent vascular calcifications. Signed: Rnoald Gaines RyposepCompBlue Verified Date/Time: 04/12/2019 02:48:37 RAD, ABDOMEN/KUB, 1 VIEW [id number] 00:53:00Reason for exam:->Corpak placement verification. 0005 AMShould [...] Cholecystectomy clips are present. Signed: Ronald Gaines Ryposeport Verified Date/Time: 04/12/2019 00:53:54 MR, BRAIN, WITHOUT [id number] 00:10:00Reason for exam:->Ischemic Stroke Evaluationwith General AnesthesiaFINAL [...] Date/Time: 04/12/2019 00:10:30 MR, MRA, BRAIN, WITHOUT [id number] 00:10:00Reason for exam:->Ischemic Stroke Evaluationwith general anesthesiaFINAL [...] 04/12/2019 00:10:30 MR, MRA, NECK, WITHOUT IV [id number] 00:10:00Reason for exam:->Ischemic Stroke Evaluationwith general anesthesiaFINAL [...] Ronald Gaines MDReport Verified Date/Time: 04/12/2019 00:10:30 [id number] 13:25:00 Test Item Value Reference Range Interpretation Comments RPR SCREEN (BEAKER) (test code = Nonreactive Nonreactive 420) HEMOGLOBIN [id number] 10:35:00 Test Item Value Reference Range Interpretation Comments HEMOGLOBIN A1C (BEAKER) (test code = 5.5 % 4.3-6.1 368) COMPREHENSIVE METABOLIC [id number] 07:01:00 Test Item Value Reference Range Interpretation [...] 1092) DATA TO CALCULA TE ESTIMATED GFR. [id number] 06:29:00 Test Item Value Reference Range Interpretation Comments MAGNESIUM (BEAKER) (test code = 1.6 mg/dL 1.6-2.6 627) FastingLIPID [id number] 06:29:00 Test Item Value Reference Range Interpretation [...] Very High >=190 Fasting TSH/FREE T4 IF [id number] 06:22:00 Test Item Value Reference Range Interpretation Comments THYROID STIMULATING HORMONE 1.35 uIU/mL 0.35-4.94 (BEAKER) (test code = 772) CBC W/PLT COUNT & AUTO [id number] 06:01:00 Test Item Value Reference Range Interpretation [...] code = 2801) URINALYSIS WITH MICROSCOPIC IF [id number] 14:45:00 Test Item Value Reference Range Interpretation [...] (test code = 2795) VITAMIN B12 AND [id number] 14:43:00 Test Item Value Reference Range Interpretation Comments VITAMIN B12 (BEAKER) (test code = 1414 pg/mL 213-816 H 774) FOLATE (BEAKER) (test code = 362) > ng/mL >=7.0 TSH/FREE T4 IF [id number] 14:36:00 Test Item Value Reference Range Interpretation Comments THYROID STIMULATING HORMONE 1.54 uIU/mL 0.35-4.94 (BEAKER) (test code = 772) BASIC METABOLIC [id number] 13:34:00 Test Item Value Reference Range Interpretation [...] 1092) DATA TO CALCULA TE ESTIMATED GFR. [id number] 13:18:00 Test Item Value Reference Range Interpretation Comments MAGNESIUM (BEAKER) (test code = 1.4 mg/dL 1.6-2.6 L 627) Notes Date/Time Note Provider Source 2023-03-03 04:39:00 [id number] [facility] [address] [address] PATIENT NAME: MARLA CAMPOS ADMIT DATE: 02/27/23ACCOUNT NO: [id number] ROOM NO: [facility] AGE: 77 REPORT TYPE: OPERATIVE REPOR T SEX: F ADMITTING PHYSICIAN: Mayte Valle ATTENDING PHYSICIAN: Mayte Valle MD OPERATION DATE: 02/27/2023 PREOPERATIVE DIAGNOSES:1. Stage II posterior wall prolapse, large apical posterior wall enterocele andperineal defect.2. Urinary incontinence. POSTOPERATIVE DIAGNOSES:1. Stage II posterior wall prolapse, large apical posterior wall enterocele andperineal defect.2. Urinary incontinence.3. Anterior wall prolapse and perineocele. PROCEDURES PERFORMED: Complete vaginectomy and colpocleisis, enterocele repair,distal posterior wall repair, perineocele repair, urethral bulking, and cystoscopy. SURGEON: Mayte Valle M.D. BALANCE ENGINEER: Maryanne Bull. ANESTHESIA: General endotracheal. FINDINGS: Asymmetric anterior and posterior wall defects. The posterior wall defect was more significant. Her POP-Q was -3, -1, -2, 5, 10 (perineocele), 9 cm on the posterior wall, anterior wall short at 6 cm and +1, +3, and A on the posterior wall. Cystoscopy was negative afte r repair. Point C was -3 after the repair. Perinea l body 3.5 cm thick and perineum at least 2.5 cm after the repair was complete and perineal body. COMPLICATIONS: None. ESTIMATED BLOOD LOSS: 100 mL. SPECIMENS: None. DRAINS: Tello catheter. IMPLANTS: Bulkamid 1.2 mL. FLUIDS: 1500 mL. PATIENT NAME: MARLA CAMPOS URINE OUTPUT: 100 mL. APPROACH: Vaginal. WOUND CLASS: Clean, contaminated. DISPOSITION: Sent to the postoperative floor. COUNTS: Correct. INDICATIONS: The patient is a 77-year-old female with recurrent prolapse and has had prior repair. Significantly symptomatic. Discussed all the different options. Her was present for our discussion. After understanding the reconstructive options, including pessary as vaginal closure, she consented for the procedure of colpocleisis understanding that this is an irreversible vaginalclosure procedure. It was acceptable functional alternative for her and she was evaluated with cystoscopy and urodynamics for functional testing and consented and brought to the OR. DESCRIPTION OF PROCEDURE: The patient wa s taken back to the OR and placed in supine fashio n on the operating table. General anesthesia was given. She was placed in dorsal lithotomy position using Nick stirrups. Arms were extende d bythe side approximately. Once positioning was checked, lower abdomen, vulva, vagina, and perineum were prepped and draped in sterile fashion using Betadine. Her pessary was removed. She was reprepped and draped in a sterile fashion. Tello was placed to drain the bladder. The self-retaining vaginal retractor wasused wit h hooks for exposure. Then, POP-Q was done, understanding the posteriorand anterior defects and asymmetry of the prolapse. The areas to be deepithelialized were marked in order for them t o be matched and closed. Two trapezoids in the anterior and posterior compartment were placed, leaving distal3 cm of epithelium intact. Once these were all marked out, anterior wall was first approached. After injecting with dilute vasopressin, 30 mL in the anterior compartment, 15 blade was used to make the incision all aroun d on the marked edges. Once the epithelium was incised, Allis clamps were placed and from under the distal incision, the epithelium was taken down with the help of sharp dissection using my 15 blade. On proper retraction, it was completel y deepithelialized to the vaginal vault. Once this was complete, hemostasis was secured superficially with the Bovie and posterior compartment was approached. The proximal part of the posterior compartment had to be opened first . Once at least 3 cm, which was opened up, then I started distally and came back up by and met top . Of at least 35-40 mL of dilute vasopressin was injected here and the deepithelization was done in 2 halves in the posterior compartment. Once this was done, hemostasis was secured. All the defects were visualized and apical posterior enterocele was significant. The bowel was visibl e below the peritoneum, so thishad to be repaired first. Enterocele repair: This was performed wit h the help of 3-0 Monocryl sutures. The peritoneum had to be carefully pursestringed in a series of sutures to completely reduce it down, and this helped shorten the posterior vaginal wall aswell . Then, the fascia that was remnant or scar of the anterior and posterior wall were sutured togethe r in a continuous running layer at the apex. At least PATIENT NAME: MARLA CAMPOS 1.5 cm on each side was matched and sutured. After this, more of the posteriordefect was matched with the smaller portion of the anterior defect and another running 2-0 Vicryl closure was performed. Then the lateral hammond were closed dedra continuous running fashion on th e right and then on the left side. This brought th e anterior and posterior wall fascia or scars together. This reduced the prolapse in a very well matched fashion. Then, the rest of the posterior and anterior hammond were sutured together with another series of continuous 2-0 Vicryl sutures. Then, the vaginal epithelial edges were nicely raised and flapswere created and closure was performed distally in a transverse fashion using interrupted 2-0 Vicryl etsltr-nw-ybiyv sutures x5. Once this was complete, there was excellent reduction; however , the posterior wall was still bulging andthe perineocele was evident with the rectovaginal exam. Perineocele repair. The incision was made on the perineum at least a centimeterabove the ____ all the way into the posterior compartment to the level of the closure. Then, once the maura-shaped incision was made and a cut was placed on the epithelium and the epithelium was taken down this entire area. The structures of the scarred perineal body laterally had to be dissected all the way. Once these were all exposed, external sphincter needed a series of 2-0 Vicryl sutures x3. I then closed the deep transverse peronei or the scars from these together and the posterior wall defect in this area was closed slightly opening up the distal part of the above repair. Then, once this was closed and rectovaginal exam was performed to make sure that these were all intact, vaginalsutures were placed close to the levators and they were brought together with the help of continuous running 2-0 Vicryl sutures and rest o f the perineal body was closed with the help of 2- 0 Vicryl interrupted sutures x3. Continuous runnin g 2-0 Vicryl was used to close the distal 3 cm of the posterior wall and the perineum was closed with the help of 3-0 Vicryl in a continuous running deepsubcutaneous and then subcuticular fashion and suture tied inside the vestibule. Th e vestibule was recreated. Perineum was adequate, and there was good thickness in the posterior wall and the genital hiatus had been reduced to 3.5 cm. Rectal exam was negative. No sutures or foreign body. Tello was removed. Bladder was drained and urethral bulking was performed. Afte r the regular cystoscopy and entering, the ureteri c orifices were patent andno foreign body in the bladder. The bladder was drained and pediatric 0-degree cystoscope was taken with the Bulkamid sheath ____ inflow and outflow. The Bulkamid syringe was prepped and once the scope was inserted on a strong trocar and advanced to the internal meatus, the needle was passed 2 cm into the bladder. Then, this was retracted to get to the midurethral area and 4 injections were performed at 4 o'clock, 2 o'clock, 11 o'clock, and 7 o'clock. 1.2 mL was injected in total. Getting good apposition of the lumen. Then the scope was removed and a 14 17-Iranian Tello was placed in the patient's bladder. Instrument, needle and sponge counts x3 were correct at the end of the case. The patient tolerated the procedure well. She was recovered from anesthesi a andtaken to PACU in stable condition. Dictated By: Mayte Valle MD Date Dictated: 03/03/2023 04:39:43Date Transcribed: 03/03/2023 09:03:40SKK/MINKatyab #: [id number] PATIENT NAME: MARLA CAMPOS Receipt ID : [id number] by Mayte Valle MD On 03/06/2023 08:02:42 AM at 0802 PATIENT NAME: MARLA CAMPOS cykdit6027-15-92E79:03:00L.[id number] i lable for patient [id number]:03:25 2023-02-27 12:10:00 [id number]:10:00 [facility] ([facility])Brief Op NoteREPORT#:[id number] REPORT STATUS: SignedDATE:02/27/23 TIME:1210 PATIENT: MARLA CAMPOS UNIT #: [id number]#: [id number] [address] AGE : 77 SEX: F ATTEND: Mayte Valle MDADM AUTHOR: Mayte Valle MD * ALL edits or amendments must be made on the electronic/computer document * Op/Inv Proc Note - BriefPre-procedure diagnosis:Stage 3 post wall prolapse, large apical posterior wall enterocele , perineal defect, Mixed urinary IncontinencePost-procedure diagnosis: same as pr e procedure dx, perineoceleProcedures performed:Complete vaginectomy and Colpocleisis, enterocele repair, distal posterior wall repair, perineocele repair, Urethral Bulking and cystoPrimary Surgeon:Jesseistant(s): leola delacruzAnesthesia: general anesthesiaFindings:asymmetric anterior and posterior wall defects, -3/-1/-2/5/thin, perineocele/9 cm post wall, ant wall shorter by 3cm,/+1/+3/na; cysto neg, after repair, C=-3,PB=3.5, thicl PB and perineum 2.5cmComplications: noneEstimated blood loss in ml's: 100Specimens removed/altered: noneDrain(s) : Tello Catheter PlacedImplant(s): Bulkamid 1.2mlFluids:1500Urine output:100Approach: vaginalWound class: clean/contaminatedDisposition: MEDSURGCounts: Sponge count: correct Instrument count: correct Needle count: correct at 1549 RPT #: [id number] OF REPORT OPOperative smpvio7050-78-53W99:10:00L.[id number] a ilable for patient [id number]:50:04 2023-02-27 08:31:00 [id number] [address] PATIENT NAME: MARLA CAMPOS ADMIT DATE: 02/27/23ACCOUNT NO: [id number] ROOM NO: [facility] AGE: 77 REPORT TYPE: eELECTROCARDIOGRAM SEX: F ADMITTING PHYSICIAN: Mayte Valle MD ATTENDING PHYSICIAN: Mayte Valle MD Order:[id number] Reason : SURGERY Test Date/Time Stamp:MonFeb 27 2023 08:31:45Blood Pressure : / mmHGVent. Rate : 065 BPM Atrial Rate : 065 BPM P-R Int : 144 ms QRS Dur : 084 ms QT Int : 402 ms P-R-T Axes : 031 034 025 degrees QTc Int : 418 ms Normal sinus rhythmNormal ECGWhen compared with ECG of 19-JUL-2022 12:15,premature supraventricular complexes are no longer presentConfirmed by TAMMY TRAN, GOKUL ([id number]) on 03/12/2023 6:53:06 PM Referred By: Mayte Valle Confirmed by:GOKUL Connolly MD at 1853 PATIENT NAME: MARLA CAMPOS .[id number] AVAvailable for patient [id number]:53:39 2022-07-22 10:16:00 [id number]:16:00 [facility] ([facility] BRANSONDischarge SummaryREPORT#:[id number] REPORT STATUS: SignedDATE:07/22/22 TIME: 1016 PATIENT: MARLA CAMPOS UNIT #: [id number]#: [id number] [address] AGE : 76 SEX: F ATTEND: Robert Gold [facility] AUTHOR: Jackeline Loja * ALL edits or amendments must be made on the electronic/computer document * General InformationDischarge date: 07/22/22Discharge diagnosis:Carotid artery disease Hospital course:76-year-old female with a past medical history of bilateral carotid artery stenosis. Vianey corado underwent right carotid endarterectomy in December 2021.She was admitted this hospitalization for left carotid endarterectomy.This procedure was performed on 07/21/2022. Patient tolerated the procedure well. She was transferred to ICU in stable condition. She required minimal nitroglycerin. She was started on amlodipine 5mg . Her blood pressure was well controlled with a goal of 100-130 systolics.Patient denies any headaches, denies any facial numbness, denies an y facial droop, denies any deviation of tongue. Me d Rec Med RecDischarge meds:Continue taking these medications:ASPIRIN EC (ECOTRIN) 81 MG TAB.EC 81 MILLIGRAM ORAL DAILY. [MAGNESIUM GLYCENATE] 120 MG 2 TABLET ORAL THREE TIMES A DAY. UBIDECARENON E (CO Q-10) 100 MG CAP 100 MILLIGRAM ORAL TWICE DAILY. [PEARLS PROBIOTIC] 1 TABLET ORAL DAILY. [COSAMIN ASU JOINT ] 1 TABLET ORAL DAILY. Instructions: JOINT HEALTH ONE A DAY [MOVE FREE JOINT ] 1 TABLET ORAL DAILY. Instructions: JOINT HEALTH ONE A DAY ATORVASTATIN (LIPITOR) 40 MG TA B 40 MILLIGRAM ORAL BEDTIME. CLOPIDOGREL (PLAVIX) 75 MG TAB 75 MILLIGRAM ORAL DAILY. Days = 90 Qty = 90 LEVOCETIRIZINE (XYZAL) 5 MG TAB 5 MILLIGRAM ORAL DAILY. PANTOPRAZOLE DR (PROTONIX) 40 MG TAB.DR 40 MILLIGRAM ORAL DAILY. FAMOTIDINE (PEPCID) 20 MG TAB 20 MILLIGRAM ORAL BEDTIME. SPIRONOLACTONE (ALDACTONE) 50 MG TAB 50 MILLIGRA M ORAL DAILY. MEMANTINE (NAMENDA) 5 MG TAB 5 MILLIGRAM ORAL TWICE DAILY. ESTROGENS,CONJ (PREMARIN 0.625 MG/GM VAGINAL) 0.625 MG/GRAM CREAM 0.5 GRAM VAGINAL MoTh DOCUSATE SODIUM (COLACE) 100 MG CAP 100 MILLIGRAM ORAL TWICE DAILY. [CURCUMIN] 150 MILLIGRAM ORAL DAILY. CHOLECALCIFEROL (VITAMIN D3) (VITAMIN D3) 25 MCG (1,000 UNIT) CAP 25 MILLIGRAM ORAL DAILY. PHYTONADIONE (VITAMIN K) 100 MCG TAB 100 MICROGRAM ORAL ONE TIME ONLY. BENZONATATE (TESSALON) 100 MG CAP 100 MILLIGRAM ORAL EVERY 8 HR NEEDED. as needed for COUGH BUDESONIDE/FORMOTEROL (SYMBICORT 160/4.5 MCG/ACT 10.2GM) 160 MCG-4.5 MCG/ACTUATION INHALER 2 PUFF INHALATION RT - TWICE DAILY. PROMETHAZINE/DEXTROMETHORPHAN (PHENERGAN DM 6.25-15 MG/5ML) 6.25 MG-15 MG/5 ML SYRUP 5-10 MILLILITERS ORAL EVERY 6 HOURS NEEDED. as needed for COUGH ALBUTEROL (ALBUTEROL 2.5 MG/3 M L (75mL)) 2.5 MG/3 ML (0.083 %) NEB 2.5 MILLIGRAM NEB RT - EVERY 6 HOURS. [MAGNESIUM GLYCENATE] 24 0 MILLIGRAM ORAL THREE TIMES A DAY. Start taking the following new medications:amLODIPine (NORVASC) 2.5 MG TAB 2.5 MILLIGRAM ORAL DAILY. Days = 14 Qty = 14 No Refills ObjectiveVS/I OLas t Documented: Result Date Time Pulse Ox 95 07/22 903 B/P 151/64 07/22 903 B/P Mean 92 07/22 080 4 Pulse 80 07/22 903 Resp 34 07/22 903 Temp 98. 3 07/22 606 O2 Delivery Nasal cannula 07/21 2155 O2 Flow Rate 2 07/21 2155 24 hour I O ending at 0700: 07/22 0700 07/21 1900 Intake Total 424.00 1100 Output Total 20 500 Balance 404.00 600 Intake, IV 224.00 Intake, Oral 200 300 Intake, Other 800 Number 7 Incontinent Voids Output, 20 Drainage Output, Urine 500 PATIENT WEIGHT: Weigh t (lb): 150Weight (oz): 5.05Weight (kg): 68.182 General appearance: alert, awake, orientedHead/Eyes: EOMINeck: full range of motion, no JVDCardiovascular: regular rate rhythm, normal heart soundsRespiratory: clear to auscultationExtremities: no edema-all extremitiesNeuro/AREA ATTENDANT: alert, oriented X 3, delon l speech, no motor deficitsWound/incision: Location:NANO drain removed. Minimal drianage overnight ResultsFindings/Data:Laboratory Tests: 07/22 524 Chemistry Sodium (134 - 147 mEq/L) 14 1 Potassium (3.4 - 5.0 mEq/L) 3.8 Chloride (100 - 108 mEq/L) 108 Carbon Dioxide (21 - 33 mEq/l) 25 Anion Gap (0 - 20) 12 BUN (7 - 18 mg/dL) 12 Creatinine (0.6 - 1.3 mg/dL) 1.0 Glomerular Filt r Rate (70 - 80) 58.4 L Glucose (70 - 110 mg/dL) 9 9 Calcium (8.0 - 10.5 mg/dL) 8.8 Hematology WBC (4.5 - 11.0 x10 3/uL) 11.6 H RBC (3.54 - 5.02 x1 0 6/uL) 3.77 Hgb (11.0 - 15.0 g/dL) [...] (Auto) (14.0 - 32.0 %) 13.1 L [place] % (Auto) (4.8 - 9.0 %) 8.4 Eos % (Auto) (0.3 - 3.7 %) 0.3 Bas o % (Auto) (0.0 - 2.0 %) 0.4 Neut # (Auto) (2.0 - 7.6 x10 3/uL) 8.97 H Lymph # (Auto) (1.0 - 3.8 x10 3/uL) 1.51 [place] # (Auto) (0.1 - 0.8 x10 3/uL ) 0.97 H Eos # (Auto) (0.0 - 0.2 x10 3/uL) 0.03 Baso # (Auto) (0.0 - 0.2 x10 3/uL) 0.05 Abs Melissa t Gran (auto) (0.00 - 0.03 x10 3/uL) 0.04 H Add Manual Diff NO Immature Gran % (0.0 - 2.0 %) 0. 3 Nucleated RBC % (0 - 0 %) 0.0 Nucleated RBCs # (Man) (0.0 - 0.1 x10 3/uL) 0.00 Treatments Procedures Free Text T P NotesFree Text T P Notes:76 year old with past medical history of hypertension, bilateral carotid artery stenosis.Patient underwent left carotid endarterectomy yesterday 07/21/2022. Patient tolerated the procedure well. She was transferre d to ICU in stable condition. She was started on amlodipine 5 mg for blood pressure control. Her blood pressures have remained systolics 100-130s . The patient denies any neurologic symptoms. She denies any headache, she denies any facial drop. She denies any facial numbness. Patient okay to be discharged home. We will continue amlodipine 2.5 mg daily. She will follow-up in clinic in 1 weeks. She was instructed to monitor her blood pressure routinely at home. Wound care instructions were discussed with the patient to include washing the wound with soap and water. Okay to leave open to air. Patient is directed t o notify our office for any redness, bleeding, infection, fever, chills, headache or any other neurologic symptoms.Patient's was at the bedside and all questions were answered. Discharge Instructions PCPPCP:PCP: Garth Hopkins MD )( Discharge to: Home/Self Care Discharge InstructionsAdditional Discharge Routines: PCP Follow-Up, Family Support Specialist Follow-Up)( Diet: Cardiac Follow-up AppointmentsPCP follow up: PCP: Garth Hopkins MD PCP follow up timeframe: In 1-2 weeksConsulting provider 1: Provider 1: Robert Glod MD Specialty: Thoracic Surgery Consult follow up timeframe: In 1-2 weeks Special instructions:Apt 07/27/21 @ 2:15 Quality: Discharge Advanced Care Plan 65 or OlderDiscusse d with: patient, other Current MedicationsCurrent medication review:I attest that the foregoing medication list in the medical record is true, accurate, and complete to the best of my knowledge. at 1053 at 1114 RPT #:[id number] OF REPORTDSDischarge [id number]:16:00G.[id number] v ailable for patient fensGSXKODDMNAKLET8648-42-03O15:54:07 2022-07-21 14:50:00 [id number]:50:00 [facility] ([facility])DT Operative NoteREPORT#:[id number] REPORT STATUS: SignedDATE:07/21/22 TIME: 1450 PATIENT: MARLA CAMPOS UNIT #: [id number]#: [id number] ROOM[facility]BED: [facility]DOB: [birth year] AGE : 76 SEX: F ATTEND: Robert Gold MDADM AUTHOR: Robert Gold MD * ALL edits or amendments must be made on the electronic/computer document * Operative Report Operative NoteNote:Preoperative diagnosis: Asymptomatic severe left internal carotid artery stenosis Postoperative diagnosis: Asymptomatic severe left internal carotid artery stenosis Operation: Left carotid endarterectomy Surgeon: Robert Gold MD Sorting Supervisor: Kuldeep Castillo Anesthesiologist: Prince Rose Marie MD Anesthesia: General endotracheal anesthesia Estimated blood loss: 20 cc Indication: Ms. Campos is a very pleasant 76-year-old female who was recently found to have symptomatic severe bilateral internal carotid artery stenosis. She is status post right carotid endarterectomy. After due preop counseling shewas brought to the operating room today for left carotid endarterectomy. Findings: 1. Calcified plaque at the bifurcation of the left common carotid artery leading to a pinhole opening in the left internal carotid artery.2. good endpoint in the left internal carotid artery following endarterectomy.3. The hypoglossal nerve was identified and protected throughout the procedure.4. The tongue was in th e midline and patient was moving all extremities a t the end of the procedure. Procedure: Ms. Logan was identified in the preop holding area and brought to theoperating room and placed supine o n the operating table. After induction of general endotracheal anesthesia, the left side of the neck was prepped and draped in standard surgical fashion. A 4 cm incision was made along the anterior border of the middle third left sternocleidomastoid. Platysma was divided with Bovie cautery. The deep cervical fascia was opened. The facial vein was identified dissected ligated and divided. Hypoglossal nerve was identified and protected throughout the procedure. The left common carotid artery, the left internal carotid artery, and left external carotid artery were identified, dissected and isolated. Patient was heparinized with 7000 unit s of heparin. After waiting for 3 minutes the bifurcation of the left common carotidartery was an isolated with 3 profunda clamp. Arteriotomy was performed on the left common carotid artery and extended onto the left internal carotid artery using Freitas scissors. A Poole shunt was then placed in the left common and internal carotid artery. Next using a Norton dissector endarterectomy of the left common and internal carotid artery was performed. Endarterectomy of the left external carotid artery was performed using eversion technique. There was a good endpoint in the left internal carotid artery. Next patch repair of the left common and interna l carotid artery was performed using bovine pericardial patch and running 6-0 Prolene suture . Prior to tying the patch down Poole shunt was removed and careful dilation was performed. Next 7 NANO drain was placed in the wound. Hemostasis was confirmed and the neck was closed in layersusing #2 Vicryl for the platysma and 4-0 Vicryl for the skin. Patient was extubated in th e operating room and moved to PACU in stable condition. at 1453 RPT #:[id number] OF REPORTOPOperative [id number]:50:00G.[id number] a ilable for patient [id number]:53:37 2022-07-21 11:09:00 [id number]:09:00 [facility])Critical Care Consult NoteREPORT#:[id number] REPORT STATUS: SignedDATE:07/21/22 TIME: 1109 PATIENT: MARLA CAMPOS UNIT #: [id number]#: [id number] [address] AGE : 76 SEX: F ATTEND: Robert Gold [facility] AUTHOR: Chi Valencia MD * ALL edits or amendments must be made on the electronic/computer document * History of Presen t Illness HPIRequesting clinician: Dr. Procotr for consult:postop managementChief complaint:CEAPCP:PCP: Garth Hopkins MD HPI:76-year-old female with history of CAD/PCI, PAD and bilateral carotid artery stenosis s/p right CEA last year, who underwent left CEA toda y on 07/21/2022. Surgery went well and patient was transferred to CCU postop in a stable surgicalcondition. She complains of left tongue numbness but otherwise no other complaints reported like chest pain, shortness of breath, dizziness or weakness. History - Adult longitudinalPast medical history:Reports: Anemia , Coronary artery disease, Hypertension, Transient ischemic attack, Dyslipidemia, Peptic ulcer disease. Past surgical history:Reports: Cholecystectomy, Hysterectomy, Knee procedure, PCI. Additional surgical history:Breast biopsy Sinus surgeryAdditional family history:DeniesAlcohol use: Denies EtOH useDrug use: Denies recreational drugsSmoking status for patients 13 years old or older: Never SmokerAdditional social history:Lives at home with her in a single-story home. No stairs to enter. She is ambulatory with a single-point cane. She no longer drives her assists her with any assistance at home.Allergies:Coded Allergies:[place] And Derivatives (Severe, VOMITING 07/21/22)Penicillins (Severe, INJECTION SITE SWELLING 07/21/22)fludrocortisone (From FLORINEF ) (Severe, SEVERE RASH, SWELLING OF EYES 07/21/22)lansoprazole (From PREVACID) (Severe, NAUSEA, CHILLS 07/21/22)meperidine (From DEMEROL ) (Severe, VOMITING 07/21/22)Quinolones (Intermediate, RASH, FACIAL SWELLING 07/21/22)Sulfa (Sulfonamide Antibiotics) (Intermediate, RASH, EYE SWELLING 07/21/22)fluticasone furoate (From BREO ELLIPTA) (Intermediate, HARD TO BREATH 07/21/22)rofecoxib (From VIOXX) (Intermediate, EYE AND BODY SWELLIN G 07/21/22)sulfapyridine (Intermediate, EYE LID SWELLING 07/21/22)vilanterol (From BREO ELLIPTA) (Intermediate, HARD TO BREATH 07/21/22)Iodinated Contrast Media (UNKNOWN 07/21/22)clotrimazole (Intermediate, UTI, RASH 07/21/22)gabapentin (Intermediate, DIZZINESS, NAUSEA, CONSTIPATION 07/21/22)pregabalin (From LYRICA) (Intermediate, WATERY EYES 07/21/22)clarithromycin (From BIAXIN ) (Mild, RASH, SORE TONGUE 07/21/22)doxycycline (From PERIOSTAT) (Mild, ABDOMINAL PAIN 07/21/22)nabumetone (From RELAFEN) (Mild, ABDOMINAL PAIN 07/21/22) Review of Systems ROSNeuro:Reports: numbness. All systems rev neg: except as marked Objective Physical ExamVS/I O:Last Documented: Result Date Time Temp 97.3 07/21 1003 Pulse Ox 97 07/21 0930 B/P 127/61 07/21 09 Pulse 58 07/21 0930 Resp 20 07/21 093 0 O2 Delivery Nasal cannula 07/21 904 O2 Flow Rate 2 07/21 904 24 hour I O ending at 0700: 07/21 0700 07/20 1900 Intake Total Output Total Balance Patient 68.182 kg Weight Weight Stated/Reported Measurement Method Patient Weigh t and BMI Weight (kg): 68.182 BMI: 26.6 Medications:Active Meds + DC'd Last 24 HrsGlucagon (GLUCAGON) 1 MG ASDIR PRN IM Mupirocin [...] .ROUTE (DC) Glycopyrrolate (GLYCOPYRROLATE) 0 .STK-MED ONE .ROUTE (DC) Neostigmine Methylsulfate (PROSTIGMIN) 0 .STK-MED ONE .ROUTE (DC) Fentanyl Citrate (SUBLIMAZE) 50 MCG PACU Q10MIN PRN PRN I V Fentanyl Citrate (SUBLIMAZE) 25 MCG PACU Q10MIN PRN PRN IV Hydromorphone HCl (DILAUDID) 0.5 MG PACU Q10MIN PRN PRN IV Hydromorphone HCl (DILAUDID) 0.25 MG PACU Q5MIN PRN PRN IV Morphin e Sulfate (morphine SULFATE) 2 MG PACU Q10MIN PRN PRN IV Nitroglycerin/Dextrose (NITROGLYCERIN 50,000MCG/D5W 250ML) 250 ML ASDIR IV Ondansetron HCl (ZOFRAN) 4 MG PACU ONCE PRN IV Protamine Sulfate (PROTAMINE SULFATE) 0 .STK-MED ONE IV (DC) Sodium Chloride (SODIUM CHLORIDE 0.9%) 1,00 0 ML .Q24H IV Clindamycin Phosphate (CLEOCIN 900 MG/NS 50 ML) 50 ML .STK-MED ONE IV (DC) Sodium Chloride (SODIUM CHLORIDE 0.9% 100 ML) 100 ML .STK-MED ONE IV (DC) Vancomycin HCl (VANCOMYCIN HCL) 0 .STK-MED ONE .ROUTE (DC) Lidocaine HCl (PRE-ATTACHED LTA KIT) 0 .STK-MED ONE TOPICAL (DC) Heparin Sodium (HEPARIN SODIUM) 0 .STK-MED ONE .ROUTE (DC) Lidocaine HCl (XYLOCAINE IV) 0 .STK-MED ONE IV (DC) Thrombin (RECOTHROM) 0 .STK-MED ONE TOPICAL (DC) Acetaminophen (TYLENOL EXTRA STRENGTH) 0 .STK-MED ONE .ROUTE (DC) Gabapentin (NEURONTIN) 0 .STK-MED ONE PO (DC) Fentanyl Citrate (SUBLIMAZE) 0 .STK-MED ONE IV (DC) Propofol (DIPRIVAN 200MG/20ML INJECTION) 20 ML .STK-MED ONE IV (DC) Sodium Chloride (SODIUM CHLORIDE 0.9%) 500 ML .STK-MED ONE IV (DC) Norepinephrine Bitartrate (NOREPINEPHRINE 8 MG/N S 250 ML) 250 ML .STK-MED ONE IV (DC) Nitroglycerin/Dextrose (NITROGLYCERIN 50,000MCG/D5W 250ML) 250 ML .STK-MED ONE IV (DC) Dexamethasone Sodium Phosphate (DECADRON) 0 .STK-MED ONE .ROUTE (DC) Dextrose/Water (DEXTROS E 10% IN WATER) 250 ML ASDIR PRN IV (CKD) Heparin Sodium (HEPARIN SODIUM) 0 .STK-MED ONE .ROUTE (DC) Lidocaine HCl (XYLOCAINE) 0 .STK-MED ONE .ROUTE (DC) Ondansetron HCl (ZOFRAN) 0 .STK-MED ONE .ROUTE (DC) Rocuronium [place] (ZEMURON) 0 .STK-MED ONE IV (DC) Sevoflurane (ULTANE) 0 .STK-MED ONE INH (DC) Insulin Human Lispro (HUMALOG) 0 Q4HR SUBQ Vancomycin HCl (VANCOMYCIN HCL) 1,000 MG PREOP IV (DC) Sodium Chloride (SODIUM CHLORIDE 0.9%) 250 MLVerapamil HCl (ISOPTIN) 16.6 MG .Q24H ONE IV (CKD) Heparin Sodium (Porcine) (HEPARIN SODIUM) 1,660 UNIT Sodium Bicarbonate (SODIUM BICARBONATE) 0.7 ML Nitroglycerin/Dextrose (NITROGLYCERIN 50MG/D5W 250ML) 8.3 MG Lactated Ringer's (LACTATED RINGERS) 949.5 MLMetoprolol Tartrate (LOPRESSOR) 6.5 MG ASDIR PRN PO Acetaminophen (TYLENOL EXTRA STRENGTH) 1,000 MG PREOP ONCALL PO (DC) Lactate d Ringer's (LACTATED RINGERS) 1,000 ML PREOP ONCAL L IV (DC) Lidocaine HCl (LIDOCAINE HCL/PF) 2 ML PREOP ONCALL LOCAL (DC) Lidocaine HCl (LIDOCAINE HCL/PF) 2 ML PREOP ONCALL LOCAL (DC) Sodium Chloride (SODIUM CHLORIDE 0.9%) 500 ML PREOP ONCALL IV (DC) Sodium Chloride (SODIUM CHLORIDE 0.9%) 500 ML PREOP ONCALL IV (DC) Sodium Chlorid e (SODIUM CHLORIDE 0.9%) 1,000 ML PREOP ONCALL IV (DC) Sodium Chloride (SODIUM CHLORIDE) 5 ML ASDI R PRN IV (DC) Sodium Chloride (SODIUM CHLORIDE) 10 ML ASDIR PRN IV (DC) Sodium Chloride (SODIUM CHLORIDE 0.9%) 250 ML ASDIR PRN IV (DC) ResultsFindings/Data:Laboratory Tests 07/21/22 0935:[Embedded Image Not Available]Laboratory Tests 07/21 934 Chemistry Sodium (134 - 147 mEq/L) 142 Potassium (3.4 - 5.0 mEq/L) 4.5 Chloride (100 - 108 mEq/L) 107 Carbon Dioxide (2 1 - 33 mEq/l) 28 Anion Gap (0 - 20) 12 BUN (7 - 18 mg/dL) 19 H Creatinine (0.6 - 1.3 mg/dL) 1.1 Glomerular Filtr Rate (70 - 80) 52.1 L Glucose (70 - 110 mg/dL) 136 H Calcium (8.0 - 10.5 mg/dL ) 8.7 Laboratory Tests 07/21 0751 Coagulation Activated Coag Time (74 - 137 SEC) 287 H Laboratory Tests 07/21 0935 Hematology Hgb (11. 0 - 15.0 g/dL) 10.9 L Hct (33.0 - 45.0 %) 33.4 Microbiology:07/19 1134 NASAL: MRSA DNA Surveillance Screen - COMP Free Text Obj NotesFree Text Obj Notes:General appearance: Elderly female lying no acute distress, conversational and interactiveHEENT: atraumatic, normocephalic, dry mucosal membranesNeck: full range of motion, supple/no meningismusCardiovascular: normal capillary refill, normal heart sounds, regular rate and rhythmRespiratory: aerating well, symmetric expansion, no acute respiratory distressAbdomen: soft, non-tender, no distention, no guardingExtremities: pedal pulses palpable, move s all, normal range of motion, no clubbing, no cyanosis, no edemaMusculoskeletal: normal inspection, no muscle spasmNeuro/AREA ATTENDANT: alert, oriented X 3, no facial droop or motor deficits, mild left lower face numbnessSkin: dry, intact and clean left neck surgery dressing, NANO in plac e with minimalsanguinous output Diagnosis, Assessment Plan Diagnosis, Assessment PlanProble m list/A P: 1. Peripheral artery disease 2. S/P carotid endarterectomy 3. CAD (coronary artery disease) Plan discussed with: patient, family, consultants, nurse, interdisc care team, pharmacy/pharmacistCritical care time: Minutes: 39Free text DxA P:76-year-old female with histor y of CAD/PCI, PAD and bilateral carotid artery stenosis s/p right CEA last year, who underwent left CEA today on 07/21/2022. Surgery went well an d patient was transferred to CCU postop in a sta e surgicalcondition. She complains of left tongue numbness but otherwise no other complaints reported like chest pain, shortness of breath, dizziness or weakness. Neuro: close neurochecks, hold off on imaging, pain controlRespiratory: sats well on NC, wean O2, CXR no acute diseaseCardiovascular: BP control per CT surgery , on nitroglycerin gttRenal: Cr appears stable, monitor UOP and electrolytesGI: oral diet as tolerated, bowel regimenID: no fevers or leukocytosis, preop Abx per protocolHem: monitor Hgb and NANO output, no evidence of active bleedEndo: blood glucose appears well controlledMisc: OOB as tolerated, DVT ppx with SCDs at 0828 RPT #:[id number] OF REPORTXHUzlgkhkibxxd8764-03-66Y54:09:00G.PDOC 2 [id number] for patient rmamSFMDZLRLWXXYWJ9538-16-36I64:28:30 2022-07-21 09:48:00 [id number]:48:00 [facility] ([facility])History Physical - AdultREPORT#:[id number] REPORT STATUS: SignedDATE:07/21/22 TIME: 09 PATIENT: MARLA CAMPOS UNIT #: [id number]#: [id number] [address] [birth year] AGE : 76 SEX: F ATTEND: Robert Gold MDA AUTHOR: Jackeline Loja * ALL edits or amendments must be made on the electronic/computer document * Jackeline Loja 07/21/22 0948:History of Present Illness HPIHPI:This is a 76-year-old female with a past medical history of bilateral carotid artery stenosis, CAD, status post stent (04/2021), and peripheral arterial disease. She underwent right carotid endarterectomy in December 2021. She did wel l postoperatively. She is followed by Dr. Josué salgado outpatient. She presents today for procedure for left carotid endarterectomy.On her heart catheterization completed January 12, 2022 Left heart catheterizationalso at that time showed left internal carotid artery stenosis measuring 70 to 80% stenosis. She denies any dizziness, syncopal, other symptoms. HistoryPast medical history:Reports: Anemia, Coronary artery disease , Hypertension, Transient ischemic attack, Dyslipidemia, Peptic ulcer disease. Past surgica l history:Reports: Cholecystectomy, Hysterectomy, Knee procedure, PCI. Additional surgical history:Breast biopsy Sinus surgeryAdditional family history:DeniesAlcohol use: Denies EtOH useDrug use: Denies recreational drugsSmoking status for patients 13 years old or older: Never SmokerAdditional social history:Lives at home with her in a single-story home. No stairs to enter. She is ambulatory with a single-point cane. She no longer drives her assists her with any assistance at home. Medication/Allergy-Vaccine HxAllergies:Coded Allergies:[place] And Derivatives (Severe, VOMITING 07/21/22)Penicillins (Severe, INJECTION SITE SWELLING 07/21/22)fludrocortisone (From FLORINEF) (Severe, SEVERE RASH, SWELLING OF EYES 07/21/22)lansoprazole (From PREVACID) (Severe, NAUSEA, CHILLS 07/21/22)meperidine (From DEMEROL ) (Severe, VOMITING 07/21/22)Quinolones (Intermediate, RASH, FACIAL SWELLING 07/21/22)Sulfa (Sulfonamide Antibiotics) (Intermediate, RASH, EYE SWELLING 07/21/22)fluticasone furoate (From BREO ELLIPTA) (Intermediate, HARD TO BREATH 07/21/22)rofecoxib (From VIOXX) (Intermediate, EYE AND BODY SWELLIN G 07/21/22)sulfapyridine (Intermediate, EYE LID SWELLING 07/21/22)vilanterol (From BREO ELLIPTA) (Intermediate, HARD TO BREATH 07/21/22)Iodinated Contrast Media (UNKNOWN 07/21/22)clotrimazole (Intermediate, UTI, RASH 07/21/22)gabapentin (Intermediate, DIZZINESS, NAUSEA, CONSTIPATION 07/21/22)pregabalin (From LYRICA) (Intermediate, WATERY EYES 07/21/22)clarithromycin (From BIAXIN ) (Mild, RASH, SORE TONGUE 07/21/22)doxycycline (From PERIOSTAT) (Mild, ABDOMINAL PAIN 07/21/22)nabumetone (From RELAFEN) (Mild, ABDOMINAL PAIN 07/21/22) Review of SystemsConstitutional:Denies: chills, fatigue, fever. Skin:Denies: bruising, contusion. Allergy/Immun:Denies: anaphylaxis, hives, itching. Eyes:Denies: itching, diplopia. ENT:Denies: ear ringing, earache, hearing loss, mouth pain. Respiratory:Denies: WARNER (dyspnea on exertion), non productive cough, productive coug h (sputum), SOB. Cardiovascular:Denies: chest pain , WARNER (dyspnea on exertion). GI:Denies: constipation, diarrhea. :Denies: dysuria, hematuria. Heme:Denies: bleeding, bruising. Endocrine:Denies: polydipsia, polyphagia. Neuro:Denies: change in LOC, confusion, dizziness. Psych:Denies: agitation, anxiety. All systems rev neg: except as marked Physical ExamVS/I OVital Signs: Date Time Temp Pulse Resp B/P B/P Pulse O2 O2 Flow FiO2 Mean Ox Delivery Rate 07/21 0630 97.4 60 16 159/71 99 24 hour I O ending at 0700: 07/21 0700 07/20 1900 Intake Total Output Total Balance Patient 68.182 kg Weight Weight Stated/Reported Measurement Metho d PATIENT WEIGHT: Weight (lb): 150Weight (oz): 5.05Weight (kg): 68.182 General appearance: alert, awakeENT: moist mucosal membranesNeck: full range of motion, non-tenderCardiovascular: normal capillary refill, regular rate rhythmRespiratory: clear to auscultation, no distressAbdomen/GI: soft, non-tenderExtremities: moves all, no edema-all extremities, normal rang e of motionMusculoskeletal: full range of motionNeuro/AREA ATTENDANT: alert, oriented X 3Skin: dry, intact ResultsFindings/Data:Laboratory Tests: 07/21 07/21 0935 0751 Chemistry Sodium (134 - 14 7 mEq/L) 142 Potassium (3.4 - 5.0 mEq/L) 4.5 Chloride (100 - 108 mEq/L) 107 Carbon Dioxide (2 1 - 33 mEq/l) 28 Anion Gap (0 - 20) 12 BUN (7 - 1 8 mg/dL) 19 H Creatinine (0.6 - 1.3 mg/dL) 1.1 Glomerular Filtr Rate (70 - 80) 52.1 L Glucose (70 - 110 mg/dL) 136 H Calcium (8.0 - 10.5 mg/dL ) 8.7 Coagulation Activated Coag Time (74 - 137 SEC) 287 H Hematology Hgb (11.0 - 15.0 g/dL) 10. 9 L Hct (33.0 - 45.0 %) 33.4 Diagnosis, Assessment Plan Free Text DxA P NotesFree Text DxA P Notes:76 yr Old female, presents with bilateral ICA stenosis, status post right internal carotid endarterectomy December 2021. The patient has a left internal carotid artery occlusion 70 to 80%. She denies any symptoms of dizziness or other neurologic symptoms. Patient is scheduled for Left Carotid endarterectomy today Labs reviewed Assessment/Plan1) carotid artery Stenosis - L CE A today2) PVD3) CAD with previous PCI Continue Statin, Patient was seen ad examined by Dr Gold Pre-operatively. All Quesitons were answered. Patient scheduled for Left carotid endarterectomy. Robert Gold 08/07/22 1104:Attestations Physician AttestationAgree w/findings plan:I have seen and examined Ms. Campos. I agree with the findings and plan as documented by RUDDY Fonseca at 1455 at 1114 RPT #:[id number] OF REPORTHPHistory and physical jvlngvgzxxz4765-50-35S21:48:00G.[id number] 5 AVAvailable for patient [id number]:56:07 2022-07-19 12:15:00 [id number]:15:[id number] [place] [address] PATIENT NAME: MARLA CAMPOS ADMIT DATE: ACCOUNT NO: [id number] ROOM NO: AGE: 76 REPORT TYPE: eELECTROCARDIOGRAM REPORT SEX: F ADMITTING PHYSICIAN:Robert Gold MD ATTENDING PHYSICIAN:Robert Gold MD Order:[id number] Reason : PREOP Test Date/Time Stamp:MonJul 19 2022 12:15:01Blood Pressure : / mmHGVent. Rate : 064 BPM Atrial Rate : 064 BPM P-R Int : 150 ms QRS Dur : 094 ms QT Int : 414 ms P-R-T Axes : 060 042 061 degrees QTc Int : 427 ms Sinus rhythm with premature supraventricular complexesIncomplete right bundle branch blockAbnormal ECGPRE_OPConfirmed by YUMIKO TRAN, JOSE R ([id number]) o n 07/19/2022 1:01:20 PM Referred By: Dania Gold Confirmed by:JOSE R CALDERON MD at 130 1 PATIENT NAME: MARLA CAMPOS .[id number] AVAvailable for patient [id number]:01:48 2022-01-14 14:28:00 [id number]:28:00 [facility] ProgREPORT#:[id number] REPORT STATUS: SignedDATE:01/14/22 TIME: 1428 PATIENT: MARLA CAMPOS UNIT #: [id number]#: [id number] [address] [birth year] AGE : 76 SEX: F ATTEND: Rj Evans [facility] DT: 2 AUTHOR: Hallie Charles PLACEMENT MANAGER * ALL edits or amendments must be made on the electronic/computer document * GeneralPost-op: day 1Status post:Right carotid endarterectomy SubjectiveChief complaint:Follow up R CEA Bilateral carotid stenosis Review of SystemsConstitutional:Denies: chills, fever, malaise. Allergy/Immun:Denies: allergic reaction . Respiratory:Denies: SOB. GI:Denies: abdominal pain, nausea, vomiting. Heme:Denies: bleeding. Objective GeneralVS/I OLast Documented: Result Date Time Pulse Ox 97 01/14 1300 B/P 128/70 01/14 1300 B/P Mean 95 01/14 1300 Pulse 68 01/14 1300 Resp 23 01/14 1300 O2 Delivery Room air 01/14 1210 Temp 98.2 01/14 1210 O2 Flow Rate 5 01/13 1404 24 hour I O ending at 0700: 01/14 070 0 01/13 1900 Intake Total 300.00 Output Total 90 1 8 Balance 210.00 -18 Intake, IV 100.00 Intake, Oral 200 Number 1 Incontinent Voids Number Void s 1 Output, 15 18 Drainage Output, Urine 75 Patient 149 lb Weight Weight Bed scale Measurement Method PATIENT WEIGHT: Weight (lb): 148Weight (oz): 12.99Weight (kg): 67.500 Physica l ExamGeneral appearance: alert, oriented, mental status normal, no respiratory distressHEENT: anictericCardiovascular: normal heart sounds, regular rate rhythmRespiratory: aerating well, symmetric expansion, no distressAbdomen: soft, non-tenderExtremities: moves allNeuro/AREA ATTENDANT: alert , oriented X 3, normal speech, no motor deficits Current MedicationsMedications:Active Meds + DC' d Last 24 HrsClopidogrel Bisulfate (Plavix) 75 MG DAILY PO Spironolactone (ALDACTONE) 25 MG DAILY PRN PO Docusate Sodium (COLACE) 100 MG BID PO Mupirocin (BACTROBAN 2% 22 GM OINTMENT) 1 APPLIC BID NASAL Magnesium Sulfate (MAGNESIUM SULFATE 4GM/SWFI 100ML) 100 ML ONCE ONE IV (DC) Hydrocodone Bitart/Acetaminophen (NORCO 5/325) 1 TAB Q6H PRN PRN PO Hydralazine HCl (APRESOLINE) 10 MG Q6H PRN PRN IV Fentanyl Citrate (SUBLIMAZE ) 0 .STK-MED ONE IV (DC) Ondansetron HCl (ZOFRAN) 0 .STK-MED ONE IV (DC) Bisacodyl (DULCOLAX) 10 MG DAILY PRN PRN RECTAL Magnesium Hydroxide (MILK O F MAGNESIA) 30 ML Q6H PRN PRN PO Tramadol HCl (ULTRAM) 50 MG Q4H PRN PRN PO Fentanyl Citrate (SUBLIMAZE) 100 MCG PACU Q10MIN PRN PRN IV (DC) Fentanyl Citrate (SUBLIMAZE) 50 MCG PACU Q10MIN PRN PRN IV (DC) Hydralazine HCl (APRESOLINE) 2 M G PACU Q10MIN PRN PRN IV (DC) Hydrocodone Bitart/Acetaminophen (NORCO 5/325) 1 TAB PACU ONCE PO (DC) Hydromorphone HCl (DILAUDID) 1 MG PACU Q10MIN PRN PRN IV (DC) Hydromorphone HCl (DILAUDID) 0.5 MG PACU Q5MIN PRN PRN IV (DC) Insulin Human Lispro (HUMALOG) 0 PACU ONCE PRN SUBQ (DC) Labetalol HCl (LABETALOL HCL) 5 MG PAC U Q10MIN PRN PRN IV (DC) Meperidine HCl (DEMEROL 50MG/ML) 12.5 MG PACU ONCE PRN IV (DC) Morphine Sulfate (morphine SULFATE) 2 MG PACU Q10MIN PRN PRN IV (DC) Ondansetron HCl (ZOFRAN) 4 MG PACU ONCE PRN IV (DC) Promethazine HCl (PHENERGAN) 25 MG PACU ONCE PRN PO (DC) Ropivacaine (NAROPIN 0.5% 150 MG/30mL) 150 MG ASDIR PRN LOCAL (DC) Tramadol HCl (ULTRAM) 50 MG PACU ONCE PO (DC) Famotidine (PEPCID) 20 MG DAILY PRN PO Aspirin (ASPIRIN) 81 MG DAILY PO Cefazolin Sodium (KEFZO L OR ANCEF) 1 GM PREOP ONCALL IV (DC) Sodium Chloride (SODIUM CHLORIDE) 10 MLAtorvastatin Calcium (LIPITOR) 40 MG BEDTIME PO Acetaminophen (TYLENOL) 650 MG Q4H PRN PRN PO Ondansetron HCl (ZOFRAN) 4 MG Q4H PRN PRN IV ResultsFindings/Data:Laboratory Tests 01/14 12/17 0 0430 1740 Chemistry Sodium (134 - 147 mEq/L) [...] (70 - 110 mg/dL) 103 133 H Calciu m (8.0 - 10.5 mg/dL) 8.2 8.0 Ionized Calcium Ayden (1.12 - 1.32 MMOL/L) 1.21 Phosphorus (2.5 - 4.9 MG/DL) 3.1 Magnesium (1.80 - 2.40 mg/dL) 2.54 H 1.47 L Laboratory Tests 01/14 01/13 0430 1740 Hematology WBC (4.5 - 11.0 x10 3/uL) 11.8 H 14. 3 H RBC (3.54 - 5.02 x10 6/uL) 3.27 L 3.37 L Hgb (11.0 - 15.0 g/dL) 10.1 L 10.5 L Hct (33.0 - 45. 0 %) 30.0 L 31.2 L MCV (81.0 - 99.0 fL) 91.7 92.6 MCH (27.0 - 33.0 pg) 30.9 31.2 MCHC (33.0 - 37. 0 g/dL) 33.7 33.7 RDW (11.5 - 14.5 %) 13.7 13[address] t Count (150 - 400 x10 3/uL) 128 L 128 L MPV (7.0 - 9.0 fL) 10.6 H 10.4 H Neut % (Auto) (56.0 - 77.0 %) 72.0 88.8 H Lymph % (Auto) (14.0 - 32.0 %) 17.4 4.9 L [place] % (Auto) (4.8 - 9.0 %) 9.8 H 4.9 Eos % (Auto) (0.3 - 3.7 %) 0.0 L 0.0 L Baso % (Auto) (0.0 - 2.0 %) 0.3 0.1 Neut # (Auto) (2.0 - 7.6 x10 3/uL) 8.53 H 12.68 H Lymph # (Auto) (1.0 - 3.8 x10 3/uL) 2.06 0.70 L [place] # (Auto) (0.1 - 0.8 x10 3/uL) 1.16 H 0.70 Eos # (Auto) (0.0 - 0. 2 x10 3/uL) 0.00 0.00 Baso # (Auto) (0.0 - 0.2 x10 3/uL) 0.03 0.02 Abs Immat Gran (auto) (0.00 - 0.03 x10 3/uL) 0.06 H 0.18 H Add Manual Diff NO NO Immature Gran % (0.0 - 2.0 %) 0.5 1.3 Nucleated RBC % (0 - 0 %) 0.0 0.0 Nucleated RBCs # (Man) (0.0 - 0.1 x10 3/uL) 0.00 0.00 Treatment Prophylaxis Treatment ProphylaxisDrain(s)/tube(s): Drain(s)/tube(s): J P Diagnosis, Assessment PlanHospital course to date:Very pleasant 76-year-old female with past medical history of stroke (2018) withresidual left-sided weakness, hypertension, hyperlipidemia, CAD status post PCI/stent x3, PA D status post right SFA stent who has been admitte d to the hospital today for carotid angiogram. She was found to have severe bilateral carotid stenosis with right ICA at 90 to 95% stenosis an d left ICA 70 to 80%. CV surgery consulted for carotid endarterectomy. PLAN Patient had severe bilateral carotid stenosis, right greater than left. She will benefit from carotid endarterectomy. Dr. Gold explained to the patient the procedure, risks involved, benefits, complications and alternatives. Patient acknowledged understanding and is willing to proceed.She will be admitted to the hospital for right CEA tomorrowPlease obtain consentN.p.o. after midnight 01/13 S/p right carotid endarterectomy 01/14 No postoperative complicationsNeuro exam stable, no cranial nerve deficit. Denies headache NANO with minimal output, discontinued this morningResume PlavixOK to discharge home from CV surgery standpoint. Follow-up in clinic in 1 to 2 weeks Consultants: cardiology, critical/exchange administrator, hospitalist, thoracic surgery at 0802 at 0740 RPT #:[id number] OF REPORTPRProgress [id number]:28:00G.[id number] todd able for patient [id number]:03:20 2022-01-14 13:49:00 [id number]:49:00 [facility] ([facility])Discharge SummaryREPORT#:[id number] REPORT STATUS: SignedDATE:01/14/22 TIME: 1349 PATIENT: MARLA CAMPOS UNIT #: [id number]#: [id number] [address]DOB: [birth year] AGE : 76 SEX: F ATTEND: Rj Evans DOADM DT: 2 AUTHOR: Rj Evans DO * ALL edits or amendment s must be made on the electronic/computer document * General InformationFree Text A P:[place] [employer] reviewed, no recordsDate of admission:Observatio n Start Date: Date of admission: 01/12/22 Discharg e date: 01/14/22Discharge diagnosis:Severe bilateral carotid stenosis status post right carotid endarterectomyHypertension HyperlipidemiaHistory of gastric ulcerHospital course:Severe bilateral carotid stenosis* Status post right carotid endarterectomy on 01/13/2022, CV surgery has seen thepatient* Advance diet per surgery* Plavix resumed* Subsequently cleared by CV surgery for discharge and ongoing outpatient follow-up Hypertension* Controlled, will continu e to monitor Hyperlipidemia* Home statin resumed History of gastric ulcer* Resume home PPI DVT prophylaxis: SCDsConsultants: cardiology, critical/exchange administrator, hospitalist, thoracic surgery Med Rec Med RecDischarge meds:Continue taking these medications:ASPIRIN EC (ECOTRIN) 81 MG TAB.EC 81 MILLIGRAM ORAL DAILY. [MAGNESIUM GLYCENATE] 120 MG 2 TABLET ORAL THREE TIMES A DAY. UBIDECARENONE (CO Q-10) 100 MG CAP 100 MILLIGRAM ORAL TWICE DAILY. DOCUSATE SODIUM (COLACE) 100 MG CAP 100 MILLIGRAM ORAL DAILY. as needed for CONSTIPATION [PEARLS PROBIOTIC] 1 TABLET ORAL DAILY. [COSAMIN [...] (PROTONIX) 40 MG TAB.DR 40 MILLIGRAM ORAL DAILY . SPIRONOLACTONE (ALDACTONE) 25 MG TAB 25 MILLIGRA M ORAL DAILY. as needed for EDEMA METOLAZONE (ZAROXOLYN) 5 MG TAB 5 MILLIGRAM ORAL DAILY. as needed for FLUID SWELLING [PROMETHAZINE DM] (Unknown Strength) Unknown Dose as needed for COUGH Instructions: TAKES 5-10MLS EVERY 6 HOURS PRN COUGH. [ALBUTEROL ] as needed for SOB Instructions: ALBUTEROL 0.083 NEB NEPHRON, USE 1 VIAL IN NEBULIZER 4 TIMES A DAY PRN SOB. FAMOTIDINE (PEPCID) 20 MG TAB 20 MILLIGRAM ORAL BEDTIME. [VITAMIN D3 ] 25 MILLIGRAM DAILY. POTASSIUM CHLORIDE ER (KLOR-CON 10) 10 MEQ TAB.S A 10 MILLIEQUIVALENT ORAL DAILY. as needed for WHE N TAKES METOLAZONE Start taking the following new medications:ACETAMINOPHEN/CODEINE (TYLENOL WITH CODEINE #3 300/30 MG) 300 MG-30 MG TAB 1 TABLET ORAL EVERY 6 HOURS NEEDED. as needed for ACUT E PAIN Qty = 15 No Refills Discharge Instructions PCP)( Follow up labs, proc, tx:Do not drive or operate heavy machinery on narcotic pain medication. Wean off pain medication as soon as pain controlled. Take over the counter stool softener or laxative while on pain medication to prevent constipation. Post operative carotid endarectomy instructions per CV surgery. Keep a log of your blood pressure and heart rate at least twice a day for your PCP. Continue to monitor your complete blood count with your PCP to ensure completeness and stability on follow up.)( Discharge to: Home/Self Care Discharge InstructionsAdditional Discharge Routines: PCP Follow-Up, Family Support Specialist Follow-Up, F/U Labs/Procedures)( Diet: Cardiac)( Activity: [facility] t Duty Follow-up AppointmentsPCP follow up: PCP: Garth Hopkins MD PCP follow up timeframe: In 3 daysAttending Physician: Attending Physician: Rj Evans DO Ntoronyeij provider 1: Provider 1: Devon Whatley MD Specialty: CardiologyInterventional Consult follow up timeframe: In 1-2 weeks Specia l instructions:CALL OFFICE TO SCHEDULE APPTConsulting provider 2: Provider 2: Robert Gold MD Specialty: Thoracic Surgery Follow up timeframe: In 1-2 weeks Quality: Discharge Advanced Care Plan 65 or OlderDiscussed with: patient at 1547 RPT #:[id number] OF REPORTDSDischarge [id number]:49:00G.[id number] v ailable for patient [id number]:48:16 2022-01-14 13:45:00 [id number]:45:00 [facility] ([facility])Hospitalist Renetta peguero NoteREPORT#:[id number] REPORT STATUS: SignedDATE:01/14/22 TIME: 1345 PATIENT: MARLA CAMPOS UNIT #: [id number]#: [id number] [address] AGE : 76 SEX: F ATTEND: Rj Evans DOADM DT: 2 AUTHOR: Rj Evasn DO * ALL edits or amendment s must be made on the electronic/computer document * See AddendumSubjectiveComments:Patient see n and examined in the CCU. Denies any new complaints. Status post right carotid endarterectomy. at bedside. Objective GeneralVS/I O:Vital Signs: Date Time Temp Pulse Resp B/P B/P Pulse O2 O2 Flow FiO2 Mean Ox Delivery Rate 01/14 1300 68 23 128/70 95 97 07/0 1 1223 69 18 150/66 95 96 01/14 1210 98.2 70 18 168/74 105 98 Room air 07/01 1201 70 18 168/74 107 98 07/01 1141 64 16 157/70 100 98 07/01 100 1 74 23 133/112 117 98 07/01 0901 [...] 78 22 139/57 88 95 06/30 2145 6 7 18 136/55 84 94 06/30 2130 60 15 133/53 82 95 06/30 2115 56 14 131/54 80 94 06/30 2100 60 17 137/58 87 95 06/30 2045 60 15 132/55 83 94 06/30 2030 58 16 137/57 85 94 06/30 2014 66 27 141/61 91 95 06/30 1999 98.2 60 18 134/57 84 95 06/30 1945 61 18 137/58 87 96 06/30 1930 74 25 143/61 93 97 06/30 1915 66 20 140/59 89 96 06/30 1900 7 1 23 137/57 87 94 06/30 1845 59 15 133/55 83 95 06/30 1830 65 19 133/55 84 96 06/30 1815 61 17 129/53 81 94 06/30 1800 62 15 135/56 85 96 06/30 1745 62 18 134/54 83 97 06/30 1730 61 18 128/51 79 96 06/30 1727 62 25 131/52 82 96 06/30 1715 6 9 19 131/54 84 97 06/30 1705 98.0 67 22 139/63 90 98 06/30 1629 60 16 120/46 95 Room air 06/30 161 4 62 16 122/48 96 Room air 06/30 1559 60 15 123/49 95 Room air 06/30 1544 62 17 120/50 95 Room air 06/30 1529 70 19 122/56 96 Room air 06/30 1514 6 4 14 106/50 95 Room air 01/13 1459 [...] 70 14 156/58 100 Simple 8 mask 2 4 hour I O ending at 0700: 01/14 0700 01/13 1900 Intake Total 300.00 Output Total 90 18 Balance 210.00 -18 Intake, IV 100.00 Intake, Oral 200 Number 1 Incontinent Voids Number Voids 1 Output, 15 18 Drainage Output, Urine 75 Patient 67.5 kg Weight Weight Bed scale Measurement Method PATIENT WEIGHT: Weight (lb): 148Weight (oz): 12.99Weight (kg): 67.500 Medications:Activ e Meds + DC'd Last 24 HrsClopidogrel Bisulfate (Plavix) 75 MG DAILY PO Spironolactone (ALDACTONE) 25 MG DAILY PRN PO Docusate Sodium (COLACE) 100 MG BID PO Mupirocin (BACTROBAN 2% 2 2 GM OINTMENT) 1 APPLIC BID NASAL Magnesium Sulfat e (MAGNESIUM SULFATE 4GM/SWFI 100ML) 100 ML ONCE ONE IV (DC) Hydrocodone Bitart/Acetaminophen (NORCO 5/325) 1 TAB Q6H PRN PRN PO Hydralazine HCl (APRESOLINE) 10 MG Q6H PRN PRN IV Fentanyl Citrate (SUBLIMAZE) 0 .STK-MED ONE IV (DC) Ondansetron HCl (ZOFRAN) 0 .STK-MED ONE IV [...] Hydralazine HCl (APRESOLINE) 2 MG PACU Q10MIN SC N PRN IV (DC) Hydrocodone Bitart/Acetaminophen (NORCO 5/325) 1 TAB PACU ONCE PO (DC) Hydromorphone HCl (DILAUDID) 1 MG PACU Q10MIN SC N PRN IV (DC) Hydromorphone HCl (DILAUDID) 0.5 MG PACU Q5MIN PRN PRN IV (DC) Insulin Human Lispro (HUMALOG) 0 PACU ONCE PRN SUBQ (DC) Labetalol HC l (LABETALOL HCL) 5 MG PACU Q10MIN PRN PRN IV (DC) Meperidine HCl (DEMEROL 50MG/ML) 12.5 MG PACU ONCE PRN IV (DC) Morphine Sulfate (morphine SULFATE) 2 MG PACU Q10MIN PRN PRN IV (DC) Ondansetron HCl (ZOFRAN) 4 MG PACU ONCE PRN IV (DC) Promethazine HCl (PHENERGAN) 25 MG PACU ONC E PRN PO (DC) Ropivacaine (NAROPIN 0.5% 150 MG/30mL) 150 MG ASDIR PRN LOCAL (DC) Tramadol HC l (ULTRAM) 50 MG PACU ONCE PO (DC) Famotidine (PEPCID) 20 MG DAILY PRN PO Aspirin (ASPIRIN) 81 MG DAILY PO Cefazolin Sodium (KEFZOL OR ANCEF) 1 GM PREOP ONCALL IV (DC) Sodium Chloride (SODIUM CHLORIDE) 10 MLAtorvastatin Calcium (LIPITOR) 40 MG BEDTIME PO Acetaminophen (TYLENOL) 650 MG Q4H PRN PRN PO Ondansetron HCl (ZOFRAN) 4 MG Q4H SC N PRN IV Physical ExamGeneral appearance: alert, awake, orientedHead/Eyes: clear cornea, EOMIENT: moist mucosal membranes, normal pharynxNeck: non-tender, supple/no meningismusCardiovascular: normal heart sounds, regular rate rhythmRespiratory: aerating well, clear to auscultation, symmetric expansionAbdomen: non-tender, normal bowel sounds, soft, no distentionExtremities: moves all, no edemaMusculoskeletal: normal inspection, painles s range of motionNeuro/AREA ATTENDANT: alert, oriented X 3, n o motor deficits, no sensory deficitsSkin: dry, intact ResultsFindings/Data:Laboratory Tests 01/14 01/13 01/13 0430 1740 1419 Chemistry Sodium (134 - 147 mEq/L) 138 142 140 Potassium (3.4 - 5.0 mEq/L) 3.9 4.0 3.5 Chloride (100 - 10 8 mEq/L) 110 H 113 H 112 H Carbon Dioxide (21 - 33 mEq/l) 26 25 25 Anion Gap (0 - 20) 6 8 7 BUN (7 - 18 mg/dL) 25 H 29 H 26 H Creatinine (0.6 - 1.3 mg/dL) 1.0 1.0 1.0 Glomerular Filtr Rate (70 - 80) 53.9 L 53.9 L 53.9 L Glucose (70 - 110 mg/dL) 103 133 H 130 H Calcium (8.0 - 10.5 mg/dL ) 8.2 8.0 8.3 Ionized Calcium Ayden (1.12 - 1.32 MMOL/L) 1.21 Phosphorus (2.5 - 4.9 MG/DL) 3.1 Magnesium (1.80 - 2.40 mg/dL) 2.54 H 1.47 L Laboratory Tests 01/14 01/13 01/13 0430 1740 141 9 Hematology WBC (4.5 - 11.0 x10 3/uL) 11.8 H 14.3 H RBC (3.54 - 5.02 x10 6/uL) 3.27 L 3.37 L Hgb (11.0 - 15.0 g/dL) 10.1 L 10.5 L 10.4 L Hct (33. 0 - 45.0 %) 30.0 L 31.2 L 30.5 L MCV (81.0 - 99.0 fL) 91.7 92.6 MCH (27.0 - 33.0 pg) 30.9 31.2 MCH C (33.0 - 37.0 g/dL) 33.7 33.7 RDW (11.5 - 14.5 %) 13.7 13.8 Plt Count (150 - 400 x10 3/uL) 128 L 128 L MPV (7.0 - 9.0 fL) 10.6 H 10.4 H Neut % (Auto) (56.0 - 77.0 %) 72.0 88.8 H Lymph % (Auto ) (14.0 - 32.0 %) 17.4 4.9 L [place] % (Auto) (4.8 - 9.0 %) 9.8 H 4.9 Eos % (Auto) (0.3 - 3.7 %) 0.0 L 0.0 L Baso % (Auto) (0.0 - 2.0 %) 0.3 0.1 Neut # (Auto) (2.0 - 7.6 x10 3/uL) 8.53 H 12.68 H Lymph # (Auto) (1.0 - 3.8 x10 3/uL) 2.06 0.70 L [place] # (Auto) (0.1 - 0.8 x10 3/uL) 1.16 H 0.70 Eos # (Auto) (0.0 - 0.2 x10 3/uL) 0.00 0.00 Baso # (Auto) (0.0 - 0.2 x10 3/uL) 0.03 0.02 Abs Immat Gran (auto) (0.00 - 0.03 x10 3/uL) 0.06 H 0.18 H Add Manual Diff NO NO Immature Gran % (0.0 - 2.0 %) 0.5 1.3 Nucleated RBC % (0 - 0 %) 0.0 0.0 Nucleated RBCs # (Man) (0.0 - 0.1 x10 3/uL) 0.00 0.00 Treatment Prophylaxis Treatment ProphylaxisDrain(s)/tube(s): Drain(s)/tube(s): J P Diagnosis, Assessment PlanConsultants: cardiology, critical/exchange administrator, hospitalist, thoracic surgery Free Text DxA P NotesFree text DxA P notes:Severe bilateral carotid stenosis* Status post right carotid endarterectomy on 01/13/2022, CV surgery has seen thepatient* Advance diet per surgery* Resume Plavix antiplatelet therapy when okay with surgery* Continue postop monitoring in the CCU with ICC following Hypertension* Controlled, will continu e to monitor Hyperlipidemia* Home statin resumed History of gastric ulcer* Resume home PPI DVT prophylaxis: SCDs Quality: Gen Med Crit Care VTE ProphylaxisVTE prophylaxis initiated: yes Hanane arenas MedicationsCurrent medication review:I attest that the foregoing medication list in the medica l record is true, accurate, and complete to the best of my knowledge. Advanced Care Plan 65 or OlderDiscussed with: patientDiscussion included: living will, power of tax associate attorney, code status at 1347 Addendum 1: 01/14/22 1356 by Rj Evans DO Received call from RN that CV surgery has cleared the patient for discharge homelater today. Patient's pain is currently controlled however did receive a dose of Cutler earlier this morning. RN to provide additional education regarding safe pain medication usage and will also send patient with instructions for safepain medication usage. We will place a conditional discharge as the RN reports CV surgery wishes to wait a few more hours until th e patient is discharged. at 1357 RPT #:[id number] OF REPORTPRProgress [id number]:45:00G.[id number] l able for patient [id number]:47:46 2022-01-14 09:03:00 [id number]:03:00 [facility] ([facility]ANSONCardiology ConsultationREPORT#:[id number] REPORT STATUS: SignedDATE:01/14/22 TIME: 902 PATIENT: MARLA CAMPOS UNIT #: [id number]#: [id number] [address] [birth year] AGE : 76 SEX: F ATTEND: Rj Evans DOADM AUTHOR: [address] PLACEMENT MANAGER * ALL edits or amendments must be made on the electronic/computer document * [address] 01/14/22 0903:History of Present Illness HPIRequesting Clinician: Sudheer goddard r consult:[place] complaint:Doing okPCP:PCP: Garth Hopkins MD HPI:Ms Campos is a 76 y/o F w/ PMHx CAD s/p PCI x 3 stents, CVA w/ Lt side weakness,HTN, HLD, PAD s/p Rt SFA w/ stent came in 01/12 for cartoid angiogram d/t intermittent dizziness and lightheaded. Her carotid angiogram showed Rt ICA 90-95% stenosis and left ICA 70-80%. She underwent right CEA 01/13. Pt is doin g well post op. Denied chest discomfort, no sob, n o orthopnea. Reports mild tenderness at incision site. No n/v/d. Telemetry shows nsr.Currently, she is in RA, sitting in chair w/o distress. is at bedside. History - Adult longitudinalPast medical history:Reports: Anemia , Coronary artery disease, Hypertension, Transient ischemic attack, Dyslipidemia, Peptic ulcer disease. Past surgical history:Reports: Cholecystectomy, Hysterectomy, Knee procedure, PCI. Additional surgical history:Breast biopsySinus surgeryAdditional family history:DeniesAlcohol use: Denies EtOH useDrug use: Denies recreational drugsSmoking status: Smoking status for patients 13 years old or older: Former Smoker Date last smoked: 07/17/89 Years smoked: 10 Pack years: 0Additional social history:Lives at home with her in a single-story home. No stairs to enter. She is ambulatory with a single-point cane. She no longer drives her assists her with any assistance at home.Home medications:Home Medications:ASPIRIN EC (ECOTRIN) 81 MG PO DAILY [MAGNESIUM GLYCENATE] 2 TAB PO TID UBIDECARENONE (CO Q-10) 100 MG PO BID DOCUSATE SODIUM (COLACE) 100 MG PO DAILY PRN CONSTIPATION [PEARLS PROBIOTIC] 1 TAB PO DAILY [COSAMIN ASU JOINT ] 1 TAB PO DAILY [MOVE FREE JOINT ] 1 TAB PO DAILY [TURMERIC ] 1,000 MG PO DAILY ATORVASTATIN (LIPITOR) 40 MG PO BEDTIME LEVOCETIRIZINE (XYZAL ) 5 MG PO DAILY PANTOPRAZOLE DR (PROTONIX) 40 MG P O DAILY METOLAZONE (ZAROXOLYN) 5 MG PO DAILY PRN FLUID SWELLING [PROMETHAZINE DM] (Unknown Dose) PRN COUGH [ALBUTEROL ] FAMOTIDINE (PEPCID) 20 MG PO BEDTIME [VITAMIN D3 ] 25 MG DAILY SPIRONOLACTONE (ALDACTONE) 25 MG PO DAILY PRN EDEMA POTASSIUM CHLORIDE ER (KLOR-CON 10) 10 MEQ PO DAILY PRN WHEN TAKES METOLAZONE CLOPIDOGREL (PLAVIX) 75 MG PO DAILY ACETAMINOPHEN/CODEINE (TYLENOL WITH CODEINE #3 300/30 MG) 1 TAB PO Q6H PRN PRN ACUTE PAIN Allergies:Coded Allergies:[place] And Derivatives (Severe, VOMITING 08/02/21)Penicillins (Severe, INJECTION SITE SWELLING 05/07/21)fludrocortisone (From FLORINEF) (Severe, SEVERE RASH, SWELLING OF EYES 08/02/21)lansoprazole (From PREVACID) (Severe, NAUSEA, CHILLS 08/02/21)meperidine (From DEMEROL ) (Severe, VOMITING 08/02/21)Quinolones (Intermediate, RASH, FACIAL SWELLING 05/07/21)Sulfa (Sulfonamide Antibiotics) (Intermediate, RASH, EYE SWELLING 08/02/21)fluticasone furoate (From BREO ELLIPTA) (Intermediate, HARD TO BREATH 05/07/21)rofecoxib (From VIOXX) (Intermediate, EYE AND BODY SWELLIN G 05/07/21)sulfapyridine (Intermediate, EYE LID SWELLING 05/07/21)vilanterol (From BREO ELLIPTA) (Intermediate, HARD TO BREATH 05/07/21)Iodinated Contrast Media (UNKNOWN 08/02/21)clotrimazole (Intermediate, UTI, RASH 08/02/21)gabapentin (Intermediate, DIZZINESS, NAUSEA, CONSTIPATION 08/02/21)pregabalin (From LYRICA) (Intermediate, WATERY EYES 08/02/21)clarithromycin (From BIAXIN ) (Mild, RASH, SORE TONGUE 08/02/21)doxycycline (From PERIOSTAT) (Mild, ABDOMINAL PAIN 08/02/21)nabumetone (From RELAFEN) (Mild, ABDOMINAL PAIN 08/02/21) Ambulatory status: Patient uses cane occasionally Review of SystemsConstitutional:Denies: chills, fatigue, fever, generalized weakness. Skin:Denies: diaphoresis, ecchymosis, swelling. Allergy/Immun:Denies: anaphylaxis, rhinorrhea. Eyes:Denies: redness, discharge, visual loss/blurred. ENT:Denies: mouth pain, nasal congestion. Respiratory:Denies: WARNER (dyspnea on exertion), parox nocturnal dyspnea, pleuritic pain, productive cough (sputum). Cardiovascular:Denies: chest pain, dyspnea on exertion, edema, orthopnea, palpitations, parox noctural dyspnea. GI:Denies: diarrhea, dysphagia , melena, nausea. :Denies: hematuria, nocturia. Musculoskeletal:Denies: extremity swelling, thoracic pain. Heme:Denies: bleeding, bruising. Endocrine:Denies: cold intolerance, heat intolerance. Neuro:dizziness, lightheaded. Denies: change in LOC. Psych:Denies: change in mental status. Additional notes:unsteady gait Objective GeneralVS/I O:Vital Signs: Date Time Temp Pulse Resp B/P B/P Pulse O2 O2 Flow FiO2 Mean Ox Delivery Rate 01/14 1300 68 23 128/70 95 97 07/ 1223 69 18 150/66 95 96 07/ 1210 98. 2 70 18 168/74 105 98 Room air [...] 78 22 139/57 88 95 06/30 2145 6 7 18 136/55 84 94 06/30 2130 60 15 133/53 82 95 06/30 2115 56 14 131/54 80 94 06/30 2100 60 17 137/58 87 95 06/30 2045 60 15 132/55 83 94 06/30 2030 58 16 137/57 85 94 06/30 2014 66 27 141/61 91 95 06/30 1999 98.2 60 18 134/57 84 95 06/30 1945 61 18 137/58 87 96 06/30 1930 74 25 143/61 93 97 06/30 1915 66 20 140/59 89 96 06/30 1900 71 23 137/57 87 94 01/13 1845 59 15 133/55 83 95 01/13 1830 65 19 133/55 84 96 01/13 1815 61 17 129/53 81 94 01/13 1800 62 15 135/56 85 96 01/13 1745 62 18 134/54 83 97 01/13 1730 61 18 128/51 79 96 01/13 1727 62 25 131/52 82 96 01/13 1715 6 9 19 131/54 84 97 01/13 1705 98.0 67 22 139/63 90 98 01/13 1629 60 16 120/46 95 Room air 01/13 1614 62 16 122/48 96 Room air 01/13 1559 60 15 123/49 95 Room air 01/13 1544 62 17 120/50 95 Room air 01/13 1529 70 19 122/56 96 Room air 01/13 1514 64 14 106/50 95 Room air 01/13 1459 6 0 18 115/56 97 Room air 24 hour I O ending at 0700 : 01/13 1900 01/14 0700 Intake Total 300.00 Output Total 18 90 Balance -18 210.00 Intake, IV 100.00 Intake, Oral 200 Number 1 Incontinent Voids Number Voids 1 Output, 18 15 Drainage Output, Urine 75 Patient 67.5 kg Weight Weight Bed scal e Measurement Method PATIENT WEIGHT: Weight (lb): 148Weight (oz): 12.99Weight (kg): 67.500 Physica l ExamGeneral appearance: alert, awake, oriented, no acute distress, pleasant, conversational, mental status normal, no respiratory distressHead/Eyes: atraumatic, clear corneaENT: moist mucosal membranesNeck: right neck w/ bulk dressing w/ NANO w/ low outpt note.Respiratory: clear to auscultation, no distressAbdomen: soft, non-tender, normal bowel sounds, no distentionGenitourinary: no flank pain, no urinary catheterUpper extremity: UE assessment: normal capillary refill, normal temperature, no edemaLower extremity: LE assessment: normal temperature, no edemaMusculoskeletal: normal inspection, left side slightly weaker than right as 9:10.Neuro/AREA ATTENDANT: alert, oriented X 3, normal speechWound/incision: Location:right neck dressing intact.Psychiatry: normal affect ResultsFindings/Data:Laboratory Tests 01/13 1 1740 0430 Chemistry Sodium (134 - 147 [...] (14.0 - 32.0 %) 4.9 L 17.4 [place] % (Auto) (4.8 - 9.0 %) 4.9 9.8 H Eos % (Auto) (0.3 - 3.7 %) 0.0 L 0.0 L Baso % (Auto) (0.0 - 2.0 %) 0.1 0.3 Neut # (Auto) (2.0 - 7.6 x10 3/uL) 12.68 H 8.53 H Lymph # (Auto) (1.0 - 3.8 x10 3/uL) 0.7 0 L 2.06 [place] # (Auto) (0.1 - 0.8 x10 3/uL) 0.70 1.16 H Eos # (Auto) (0.0 - 0.2 x10 3/uL) 0.00 0.00 Baso # (Auto) (0.0 - 0.2 x10 3/uL) 0.02 0.0 3 Abs Immat Gran (auto) (0.00 - 0.03 x10 3/uL) 0.1 8 H 0.06 H Add Manual Diff NO NO Immature Gran % (0.0 - 2.0 %) 1.3 0.5 Nucleated RBC % (0 - 0 %) 0.0 0.0 Nucleated RBCs # (Man) (0.0 - 0.1 x10 3/uL) 0.00 0.00 Laboratory Tests 01/13 01/14 1740 0430 Chemistry Magnesium (1.80 - 2.40 mg/dL ) 1.47 L 2.54 H Results: labs reviewed, vital sign s reviewed, vital signs stable, rhythm personally rev'd, current med profile rev'dTelemetry Interpretation:nsr Treatment Prophylaxis Treatment ProphylaxisDrain(s)/tube(s): Drain(s)/tube(s): NANO Diagnosis, Assessment PlanProblem List/A P: 1. S/P carotid endarterectomy Consultants: cardiology, critical/exchange administrator, hospitalist, thoracic surgeryPlan discussed with: patient, spouse/partner, nurse Free Text DxA P NotesFree Text DxA P Notes:Ms Campos is a 76 y/o F w/ PMHx CAD s/p PCI x 3 stents, CVA w/ Lt side weakness,HTN, HLD, PAD s/p Rt SFA w/ stent came in 01/12 for cartoid angiogram d/t intermittent dizziness and lightheaded. Her carotid angiogram showed Rt ICA 90-95% stenosis and left ICA 70-80%. She underwent right CEA 01/13. Pt is doin g well post op. Denied chest discomfort, no sob, n o orthopnea. Reports mild tenderness at incision site. No n/v/d. Telemetry shows nsr.Currently, she is in RA, sitting in chair w/o distress. is at bedside. - B/l carotid stenosis s/ p Rt CEA. Per CTS. Min NANO output. On ASA, Plavix, statins. - CAD. stable. On ASA, Plavix and statin. BP stable. - h/o PAD s/p peripheral angiogram w/ stent - h/o CVA. Ok d/c home from cardiac standpoint.f/u w/ Dr. Whatley in 1-2 wks. Discussed plan of care w/pt and her . Thank you for the kind consult. Edyta Reynolds 01/15/22 0754:Attestations Physician AttestationAgree w/findings plan:I have seen and examined the pt, I Agree with the findings and plan as documented by [address]. at 1459Electronically Signed by Edyta Reynolds MD n 01/15/22 at 0754 RPT #:[id number] OF [id number]:03:00G.PDOC 2 [id number] for patient [id number]:59:59 2022-01-13 17:19:00 [id number]:19:00 [facility])Critical Care Consult NoteREPORT#:[id number] REPORT STATUS: SignedDATE:01/13/22 TIME: 1718 PATIENT: MARLA CAMPOS UNIT #: [id number]#: [id number] ROOM[facility]1DOB: [birth year] AGE : 76 SEX: F ATTEND: Rj Evans DOADM DT: 2 AUTHOR: Marivel Velasco * ALL edits or amendments must be made on the electronic/computer document * History of Presen t Illness HPIReason for consult:post op care.Chief complaint:Bilateral carotid artery stenosisStatu s post right carotid endarterectomyHPI:Mrs. Campos is a pleasant 76y/o female paient with a PMH of HTN, HLD, CVA with residual left-sided weakness, she uses cane occasionally for mobility, CAD s/p stents x3, and PAD with right SFA stent. She cam e to the hospital for elective angiogram. She was found to have severe bilateral carotid stenosis. She is now s/p Right CEA and will be admitted to CCU for further monitoring. History - Adult longitudinalPast medical history:Reports: Coronary artery disease. Additional medical history:cad s/p PCI, anemia, hx of ulcersAdditional surgical history:HysterectomyBreast biopsyCholecystectomyKneeSinus surgeryAdditional family history:DeniesAlcohol use: Denies EtOH useDrug use: Denies recreational drugsSmoking status: Smoking status for patients 13 years old or older: Former Smoker Date last smoked: 07/17/89 Years smoked: 10 Pack years: 0Additiona l social history:Lives at home with her in a single-story home. No stairs to enter. She is ambulatory with a single-point cane. She no longer drives her assists her with any assistance at home.Medications:Home Medications:Medication Dose/Rte/Freq Days Qty Entered Last Max Daily Dose Reviewed ASPIRIN EC (ECOTRIN) 81 MG PO DAILY 05/03/21 01/12/22Strength: 81 MG TAB.EC 1353 1031[MAGNESIUM GLYCENATE] 2 TAB PO TID 05/03/21 01/12/22Strength: 120 MG 1354 1031 UBIDECARENON E (CO Q-10) 100 MG PO BID 05/03/21 01/12/22Strength: 100 MG CAP 1354 1031 DOCUSATE SODIUM 100 MG PO 05/03/21 01/12/22 (COLACE) DAILY PRN 1355 1031Strength: 100 MG CAP CONSTIPATION[PEARLS PROBIOTIC] 1 TAB PO DAILY 05/03/21 01/12/22Strength: 1355 1031[COSAMIN ASU JOINT ] 1 TAB PO DAILY 05/03/21 01/12/22Strength : 1356 1031[MOVE FREE JOINT ] 1 TAB PO DAILY 05/03/21 01/12/22Strength: 1357 1031[TURMERIC ] 1,000 MG PO DAILY 05/03/21 01/12/22Strength: 135 7 1031 ATORVASTATIN (LIPITOR) 40 MG PO BEDTIME 05/05/21 01/12/22Strength: 40 MG TAB 1107 1031 LEVOCETIRIZINE (XYZAL) 5 MG PO DAILY 05/08/21 01/12/22Strength: 5 MG TAB [address] 40 MG PO DAILY 08/02/21 01/12/22 (PROTONIX) 1433 1031Strength: 40 MG TAB. METOLAZONE (ZAROXOLYN) 5 MG PO 11/01/21 01/12/22Strength: 5 MG TAB DAILY PRN FLUID 1434 1031 SWELLING[PROMETHAZINE DM] (Unknown Dose) 2 01/12/22Strength: (Unknown PRN COUGH 1435 1031Strength)[ALBUTEROL ] 11/01/21 01/12/22Strength: 1436 1031 FAMOTIDINE (PEPCID) 20 MG PO BEDTIME 11/01/21 01/12/22Strength: 20 M G TAB 1437 1031[VITAMIN D3 ] 25 MG DAILY 11/01/21 01/12/22Strength: 1437 1031 SPIRONOLACTONE 25 MG PO 11/01/21 01/12/22 (ALDACTONE) DAILY PRN JARRED A 1434 1031Strength: 25 MG TAB POTASSIUM CHLORIDE ER 10 MEQ PO 01/10/22 01/12/22 (KLOR-CON 10) DAILY PRN WHEN 1429 1031Strength: 10 MEQ TAB.SA TAKES METOLAZONE CLOPIDOGREL (PLAVIX) 75 MG PO DAILY 90 90 05/05/21 01/12/22Strength: 75 MG TAB 1545 1031 Current Hospital Medications:Anti-Infective Agents Sig/Nellie Start time Last Medication Dose Route Stop Time Status Admin Cefazolin Sodium 0 .STK-MED ONE 01/13 1211 DC (KEFZOL OR ANCEF) .ROUTE Clindamycin Phosphat e 50 ML .STK-MED ONE 01/13 1207 DC (CLEOCIN 900 MG/NS IV 50 ML) Cefazolin Sodium 1 GM PREOP ONCALL 01/13 0500 CKD (KEFZOL OR ANCEF) IV 12/17 0 2359 Sodium Chloride 10 ML (SODIUM CHLORIDE) Antihistamine Drugs Sig/Nellie Start time Last Medication Dose Route Stop Time Status Admin Promethazine HCl 25 MG PACU ONCE PRN 01/13 1315 AC (PHENERGAN) PO 01/13 2311 Autonomic Drugs Sig/Nellie Start time Last Medication Dose Route Stop Time Status Admin Glycopyrrolate 0 .STK-ME D ONE 01/13 1323 DC (GLYCOPYRROLATE) .ROUTE Neostigmine 0 .STK-MED ONE 01/13 1323 DC Methylsulfate .ROUTE (PROSTIGMIN) Norepinephrine 250 ML .STK-MED ONE 01/13 1014 DC Bitartrate IV (NOREPINEPHRINE 8 MG/ NS 250 ML) Rocuronium Mico 0 .STK-MED ONE 01/13 1011 DC (ZEMURON) I V Atropine Sulfate 0.5 MG ASDIR PRN 01/12 1215 DC (ATROPINE SULFATE IV 01/13 1209 0.1MG/ML SYR) Blood Formation,Coagulation Sig/Nellie Start time Last Medication Dose Route Stop Time Status Admi n Heparin Sodium 0 .STK-MED ONE 01/13 1237 DC (HEPARIN SODIUM) .ROUTE Heparin Sodium 0 .STK-ME D ONE 01/13 1025 DC (HEPARIN SODIUM) .ROUTE Thrombin 0 .STK-MED ONE 01/13 1014 DC (RECOTHROM ) TOPICAL Cardiovascular Drugs Sig/Nellie Start time Last Medication Dose Route Stop Time Status Admi n Hydralazine HCl 10 MG Q6H PRN PRN 01/13 1715 AC (APRESOLINE) IV 02/12 1714 Hydralazine HCl 2 MG PACU Q10MIN PRN PRN 01/13 1315 AC (APRESOLINE) I V 01/13 2311 Labetalol HCl 5 MG PACU Q10MIN PRN SC N 01/13 1315 AC (LABETALOL HCL) IV 01/13 2311 Nitroglycerin/ 250 ML .STK-MED ONE 01/13 1014 DC Dextrose IV (NITROGLYCERIN 50,000MCG/D5W 250ML) Lidocaine HCl 0 .STK-MED ONE 01/13 1006 DC (XYLOCAINE) .ROUTE Atorvastatin Calcium 40 MG BEDTIME 01/12 2100 AC 01/12 (LIPITOR) PO 02/11 Central Nervous System Agents Sig/Nellie Start time Last Medication Dose Route Stop Time Status Admin Fentanyl Citrate 0 .STK-MED ONE 01/13 1447 DC (SUBLIMAZE) IV Tramadol HCl 50 MG Q4H PRN PRN 01/13 1430 AC (ULTRAM) PO 01/18 1429 Fentanyl Citrate 100 MCG PACU Q10MIN PRN PRN 01/13 1315 AC (SUBLIMAZE) IV 01/13 2311 Fentanyl Citrate 50 MCG PACU Q10MIN PRN PRN 01/13 1315 AC 01/13 (SUBLIMAZE) IV 01/13 231 1505 Hydrocodon e Bitart/ 1 TAB PACU ONCE 01/13 1315 CKD Acetaminophen PO 01/13 2311 (NORCO 5/325) Hydromorphone HCl 1 MG PACU Q10MIN PRN PRN 01/13 1315 AC (DILAUDID) IV 01/13 2311 Hydromorphone HCl 0.5 MG PACU Q5MIN PRN PRN 01/13 1315 AC (DILAUDID) IV 01/13 2311 Meperidine [...] Etomidate 0 .STK-MED ONE 01/13 1011 DC (AMIDATE ) IV Aspirin 81 MG DAILY 01/13 0900 AC (ASPIRIN) P O 02/12 0859 Acetaminophen 650 MG Q4H PRN PRN 12/16 9 1830 AC (TYLENOL) PO 02/11 1829 Electrolytic, Caloric, And Cody Sig/Nellie Start time Last Medication Dose Route Stop Time Status Admin Sodium Chloride 500 ML ASDIR PRN 01/12 1215 DC (SODIUM CHLORIDE IV 01/13 1209 0.9%) Eye, Ear, Nose And Throat (Een Sig/Nellie Start time Last Medication Dose Route Stop Time Status Admin Dexamethasone Sodium 0 .STK-MED ONE 01/13 1011 D C Phosphate .ROUTE (DECADRON) Gastrointestinal Drugs Sig/Nellie Start time Last Medication Dose Route Stop Time Status Admin Docusate Sodium 100 MG BID 01/13 2100 AC (COLACE) PO 02/12 2059 Ondansetron HCl 0 .STK-MED ONE 01/13 1433 DC (ZOFRAN) IV Bisacodyl 10 MG DAILY PRN PRN 01/13 1430 AC (DULCOLAX) RECTAL 02/12 1429 Magnesium Hydroxide 30 ML Q6H PRN PRN 01/13 1430 AC (MILK OF MAGNESIA) PO 02/12 1429 Ondansetron HCl 4 MG PACU ONCE PRN 01/13 1315 AC (ZOFRAN) IV 01/13 2311 Ondansetron HCl 0 .STK-MED ONE 01/13 1011 D C (ZOFRAN) .ROUTE Famotidine 20 MG DAILY PRN 01/13 0915 AC 01/13 (PEPCID) PO 02/12 0914 1054 Pantoprazole 40 MG DAILY 0600 01/13 0600 DC 06 0 (PROTONIX) PO 02/12 0559 0532 Ondansetron HCl 4 MG Q4H PRN PRN 01/12 1830 AC 01/13 (ZOFRAN) IV 02/11 1829 1434 Hormones And Synthetic Substit Sig/Nellie Start time Last Medication Dose Route Stop Time Status Admin Insulin Human Lispro 0 PACU ONCE PRN 01/13 1315 AC (HUMALOG) SUBQ 01/13 2311 Local Anesthetics (Parenteral) Sig/Nellie Star t time Last Medication Dose Route Stop Time Status Admin Ropivacaine 150 MG ASDIR PRN 01/13 1315 AC (NAROPIN 0.5% 150 MG/ LOCAL 01/13 2311 30mL) Miscellaneous Therapeutic Agen Sig/Nellie Start time Last Medication Dose Route Stop Time Status Admin Sugammadex Sodium 0 .STK-MED ONE 01/13 101 2 DC (BRIDION) IV Skin And Mucous Membrane Agent Sig/Nellie Start time Last Medication Dose Route Stop Time Status Admin Mupirocin 1 APPLIC BID 01/13 2100 AC (BACTROBAN 2% 22 GM NASAL 01/18 0901 OINTMENT) Allergies:Coded Allergies:[place] And Derivatives (Severe, VOMITING 08/02/21)Penicillins (Severe, INJECTION SITE SWELLING 05/07/21)fludrocortisone (From FLORINEF ) (Severe, SEVERE RASH, SWELLING OF EYES 08/02/21)lansoprazole (From PREVACID) (Severe, NAUSEA, CHILLS 08/02/21)meperidine (From DEMEROL ) (Severe, VOMITING 08/02/21)Quinolones (Intermediate, RASH, FACIAL SWELLING 05/07/21)Sulfa (Sulfonamide Antibiotics) (Intermediate, RASH, EYE SWELLING 08/02/21)fluticasone furoate (From BREO ELLIPTA) (Intermediate, HARD TO BREATH 05/07/21)rofecoxib (From VIOXX) (Intermediate, EYE AND BODY SWELLIN G 05/07/21)sulfapyridine (Intermediate, EYE LID SWELLING 05/07/21)vilanterol (From BREO ELLIPTA) (Intermediate, HARD TO BREATH 05/07/21)Iodinated Contrast Media (UNKNOWN 08/02/21)clotrimazole (Intermediate, UTI, RASH 08/02/21)gabapentin (Intermediate, DIZZINESS, NAUSEA, CONSTIPATION 08/02/21)pregabalin (From LYRICA) (Intermediate, WATERY EYES 08/02/21)clarithromycin (From BIAXIN ) (Mild, RASH, SORE TONGUE 08/02/21)doxycycline (From PERIOSTAT) (Mild, ABDOMINAL PAIN 08/02/21)nabumetone (From RELAFEN) (Mild, ABDOMINAL PAIN 08/02/21) Ambulatory status: Patient uses cane occasionally Review of Systems ROSAdditional notes:A review of system was conducted with patient, all pertinent negatives and positives mentioned in HPI. Objective Physical ExamVS/I O:Last Documented: Result Date Time Pulse Ox 95 01/13 1629 B/P 120/46 01/13 162 9 O2 Delivery Room air 01/13 1629 Pulse 60 01/13 1629 Resp 16 01/13 1629 O2 Flow Rate 5 01/13 140 4 Temp 97.7 01/13 1354 B/P Mean 95.8 01/13 0736 24 hour I O ending at 0700: 01/13 0700 01/12 1900 Intake Total 150 200 Output Total Balance 150 200 Intake, Oral 150 200 Number Voids 3 Patient Weight and BMI Weight (kg): 65.800 BMI: 25.7 Medications:Active Meds + DC'd Last 24 HrsDocusate Sodium (COLACE) 100 MG BID PO Mupirocin (BACTROBAN 2% 22 GM OINTMENT) 1 APPLIC BID NASAL Hydralazine HCl (APRESOLINE) 10 MG Q6H PRN PRN IV Fentanyl Citrate (SUBLIMAZE) 0 .STK-MED ONE IV (DC) Ondansetron HCl (ZOFRAN) 0 .STK-MED ONE IV (DC) Bisacodyl (DULCOLAX) 10 MG DAILY PRN PRN RECTAL Magnesium Hydroxide (MILK O F MAGNESIA) 30 ML Q6H PRN PRN PO Tramadol HCl (ULTRAM) 50 MG Q4H PRN PRN PO Glycopyrrolate (GLYCOPYRROLATE) 0 .STK-MED ONE .ROUTE (DC) Neostigmine Methylsulfate (PROSTIGMIN) 0 .STK-ME D ONE .ROUTE (DC) Fentanyl Citrate (SUBLIMAZE) 100 MCG PACU Q10MIN PRN PRN IV Fentanyl Citrate (SUBLIMAZE) 50 MCG PACU Q10MIN PRN PRN IV Hydralazine HCl (APRESOLINE) 2 MG PACU Q10MIN SC N PRN IV Hydrocodone Bitart/Acetaminophen (NORCO 5/325) 1 TAB PACU ONCE PO (CKD) Hydromorphone HC l (DILAUDID) 1 MG PACU Q10MIN PRN PRN IV Hydromorphone HCl (DILAUDID) 0.5 MG PACU Q5MIN PRN PRN IV Insulin Human Lispro (HUMALOG) 0 PACU ONCE PRN SUBQ Labetalol HCl (LABETALOL HCL) 5 MG PACU Q10MIN PRN PRN IV Meperidine HCl (DEMEROL 50MG/ML) 12.5 MG PACU ONCE PRN IV Morphine Sulfate (morphine SULFATE) 2 MG PACU Q10MIN PRN PRN IV Ondansetron HCl (ZOFRAN) 4 MG PACU ONCE PRN IV Promethazine HCl (PHENERGAN) 25 MG PACU ONCE PRN PO Ropivacaine (NAROPIN 0.5% 150 MG/30mL) 150 MG ASDIR PRN LOCAL Tramadol HCl (ULTRAM) 50 MG PACU ONCE PO (CKD) Heparin Sodium (HEPARIN SODIUM) 0 .STK-MED ONE .ROUTE (DC) Fentanyl Citrate (SUBLIMAZE) 0 .STK-MED ONE .ROUTE (DC) Cefazolin Sodium (KEFZOL OR ANCEF) 0 .STK-MED ONE .ROUTE (DC) Clindamycin Phosphate (CLEOCIN 900 MG/NS 50 ML) 50 ML .STK-MED ONE IV (DC) Heparin Sodium (HEPARIN SODIUM) 0 .STK-MED ONE .ROUTE (DC) Nitroglycerin/Dextrose (NITROGLYCERIN 50,000MCG/D5W 250ML) 250 ML .STK-MED ONE IV (DC) Norepinephrine Bitartrate (NOREPINEPHRINE 8 MG/NS 250 ML) 250 ML .STK-MED ONE IV (DC) Thrombin (RECOTHROM) 0 .STK-MED ONE TOPICAL (DC) Sugammadex Sodium (BRIDION) 0 .STK-MED ONE IV (DC) Dexamethasone Sodium Phosphate (DECADRON) 0 .STK-MED ONE .ROUTE (DC) Etomidate (AMIDATE) 0 .STK-MED ONE IV (DC) Ondansetron HCl (ZOFRAN) 0 .STK-MED ONE .ROUTE (DC) Rocuronium Mico (ZEMURON) 0 .STK-MED ONE IV (DC) Lidocaine HCl (XYLOCAINE) 0 .STK-MED ONE .ROUTE (DC) Famotidine (PEPCID) 20 MG DAILY PRN PO Aspirin (ASPIRIN) 81 MG DAILY PO Pantoprazole (PROTONIX) 40 MG DAILY 0600 PO (DC) Cefazolin Sodium (KEFZOL OR ANCEF) 1 GM PREOP ONCALL IV (CKD) Sodium Chloride (SODIUM CHLORIDE) 10 MLAtorvastatin Calcium (LIPITOR) 40 MG BEDTIME P O Acetaminophen (TYLENOL) 650 MG Q4H PRN PRN PO Ondansetron HCl (ZOFRAN) 4 MG Q4H PRN PRN IV Atropine Sulfate (ATROPINE SULFATE 0.1MG/ML SYR) 0.5 MG ASDIR PRN IV (DC) Sodium Chloride (SODIUM CHLORIDE 0.9%) 500 ML ASDIR PRN IV (DC) ResultsFindings/Data:Laboratory Tests 01/13/22 1419:[Embedded Image Not Available] 01/13/22 0930:[Embedded Image Not Available]Laboratory Tests 01/13 01/13 1419 0930 Chemistry Sodium [...] 9.7 Magnesium (1.80 - 2.40 mg/dL) 1.85 Tota l Bilirubin (0.0 - 1.0 mg/dL) 0.60 AST (15 - 37 IUnit/L) 28 ALT (30 - 65 IUnit/L) 14 L Total Al k Phosphatase (20 - 125 IUnit/L) 70 Total Protein (6.4 - 8.2 g/dL) 7.4 Albumin (3.4 - 5.0 g/dL) 4.30 Triglycerides (40 - 150 mg/dL) 58 Cholesterol (<200 mg/dL) 161 LDL Cholesterol Measurd (0 - 100 mg/dL) 102.0 H HDL Cholesterol (39 - 96 mg/dL) 62.4 Cholesterol/HDL Ratio (3.2 7 - 4.44 RATIO) 2.58 L Laboratory Tests 01/13 12/17 0 1253 0930 Coagulation INR (0.8 - 1.2) 1.0 PTT ([place]) (25.0 - 39.5 Seconds) 22.6 L PT Patient/Control Mix (9.3 - 12.9 SECONDS) 11.4 Activated Coag Time (74 - 137 SEC) 347 H Laboratory Tests 01/13 01/13 1419 0930 Hematolog y WBC (4.5 - 11.0 x10 3/uL) 16.6 H RBC (3.54 - 5.0 2 x10 6/uL) 4.13 Hgb (11.0 - 15.0 g/dL) 10.4 L 12. 7 Hct (33.0 - 45.0 %) 30.5 L 37.8 MCV (81.0 - 99. 0 fL) 91.5 MCH (27.0 - 33.0 pg) 30.8 MCHC (33.0 - 37.0 g/dL) 33.6 RDW (11.5 - 14.5 %) 13.7 Plt Count (150 - 400 x10 3/uL) 161 MPV (7.0 - 9.0 fL ) 10.2 H Neut % (Auto) (56.0 - 77.0 %) 79.8 H Lymph % (Auto) (14.0 - 32.0 %) 12.7 L [place] % (Auto) (4.8 - 9.0 %) 6.7 Eos % (Auto) (0.3 - 3.7 %) 0.0 L Baso % (Auto) (0.0 - 2.0 %) 0.2 Neut # (Auto) (2.0 - 7.6 x10 3/uL) 13.28 H Lymph # (Auto) (1.0 - 3.8 x10 3/uL) 2.11 [place] # (Auto) (0.1 - 0.8 x10 3/uL) 1.11 H Eos # (Auto) (0.0 - 0.2 x10 3/uL) 0.00 Baso # (Auto) (0.0 - 0.2 x10 3/uL) 0.03 Abs Immat Gran (auto) (0.00 - 0.03 x1 0 3/uL) 0.10 H Add Manual Diff NO Immature Gran % (0.0 - 2.0 %) 0.6 Nucleated RBC % (0 - 0 %) 0.0 Nucleated RBCs # (Man) (0.0 - 0.1 x10 3/uL) 0.00 Laboratory Tests 01/13 0600 Serology SARS-CoV-2 Ag (Rapid) (Negative) Negative Radiology data:Recent Impressions:RADIOLOGY - XR CHEST 2 V 01/13 1001 Report Impression - Status: SIGNED Entered: 01/13/2022 1323 IMPRESSION: No acute cardiopulmonary findings Impression By: [id number] - Renee Mcknight M.D. Free Text Obj NotesFree Text Obj Notes:General: Awake , responsive, on room air, no distressHEENT: NC/AT , pupils equal and reactive, dry mucous membranes. Right neck surgical dressing inside, dry and intact. No masses, no hematoma.CV: Regular rate and rhythm, S1/S2, no murmurs, rubs or gallopsResp: Symmetrical expansion, no wheezing/rales, normal work of breathingGI: Soft , NT/ND, bowel sounds presentExtremities: Warm, no cyanosis, no edema. Pulses palpableSkin: Right neck surgical site, dressing dry and intact. Right groin soft, no hematoma.Neuro: Awake/alert speech is fluent, left-sided weakness Treatment Prophylaxis Treatment ProphylaxisOxygen: room airDrain(s)/tube(s): Drain(s)/tube(s): NANO Diagnosis, Assessment Plan Diagnosis, Assessment PlanConsultants: cardiology, critical/exchange administrator, hospitalist, thoracic surgeryCritical care time: Minutes: 35 Code Status/Resusc. DiscussionResuscitation discussion: Discussed with: patientCode status: full codeFree text DxA P:Mrs. Campos is a 76y/o female paient with a PMH of HTN, HLD, CVA with residual left-sided weakness, she uses cane occasionally for mobility, CAD s/p stents x3, an d PAD with right SFA stent. She came to the hospital for elective angiogram and was found to have 90-95% stenosis to R ICA and 70-80% to left ICA. She is now s/p Right CEA and will be admitted to CCU for further monitoring. 01/13-Transferred to CCU from PACU. She is awake and oriented. B/p and HR stable.Right neck surgical site, dressing clean and dry. NANO drain in place with small amount of serosanguineous output. Assessment/plan1. Severe bilateral carotid stenosis2. Right carotid endarterectomy3 . History of CAD with stents x34. History of hypertension5. Hyperlipidemia6. PAD with right SFA stent7. CVA with left-sided weakness8. History of gastric ulcer Neuro: Speech is clear, patient has left-sided weakness from previous stroke.Neurochecks per unit protocolPRN pain control. Resp: sats well on room airCV: BP controlled. PRN Apresoline for SBP> 160.Resume home antihypertensives as appropriateRenal: Monitor renal function and UOP. Creatinine stable, GI: oral diet as tolerated, bowel regimenID: Afebrile, elevated WBCs, monitorHeme: Hgb appears stable, no evidence of active bleed, monitor drain output. Endo: BG checks and controlledMisc: out of bed as tolerated, DVT prophylaxis: SCDsGI ppx: FamotidineFollow lab work.I spent 35 minutes of critical care reviewing labs, diagnostics and discussing plan of care with critical care team. Quality: Gen Me d Crit Care VTE ProphylaxisVTE prophylaxis initiated: yes Current MedicationsCurrent medication review:I attest that the foregoing medication list in the medical record is true, accurate, and complete to the best of my knowledge. Advanced Care Plan 65 or OlderDiscussed with: patientDiscussion included: living will, power of tax associate attorney, code status at 1815 RPT #:[id number] OF [id number]:19:00G.PDOC 2 [id number] for patient [id number]:15:33 2022-01-13 15:35:00 [id number]:35:00 [facility] Renetta peguero NoteREPORT#:[id number] REPORT STATUS: SignedDATE:01/13/22 TIME: 1535 PATIENT: MARLA CAMPOS UNIT #: [id number]#: [id number] [address] AGE : 76 SEX: F ATTEND: Rj Evans DOADM AUTHOR: Rj Evans DO * ALL edits or amendments must be made on the electronic/computer document * SubjectiveComments:Patient was seen and examined prior to surgery. Denies any new complaints. Discussed case with CV surgery PLACEMENT MANAGER. at bedside. Objective GeneralVS/I O:Vital Signs: Date Time Temp Pulse Resp B/P B/P Pulse O2 O2 Flow FiO2 Mean Ox Delivery Rate 01/13 1514 [...] O ending at 0700: 01/13 0700 01/12 190 0 Intake Total 150 200 Output Total Balance 150 200 Intake, Oral 150 200 Number Voids 3 PATIENT WEIGHT: Weight (lb): 145Weight (oz): 1.03Weight (kg): 65.800 Medications:Active Meds + DC'd Last 24 HrsDocusate Sodium (COLACE) 100 MG BID PO Fentanyl Citrate (SUBLIMAZE) 0 .STK-MED ONE .ROUTE (DC) Ondansetron HCl (ZOFRAN) 0 .STK-MED ONE .ROUTE (DC) Bisacodyl (DULCOLAX) 10 MG DAILY PRN PRN RECTAL Magnesium Hydroxide (MILK OF MAGNESIA) 30 ML Q6H PRN PRN PO Tramadol HCl (ULTRAM) 50 MG Q4H PRN PRN PO Glycopyrrolate (GLYCOPYRROLATE) 0 .STK-MED ONE .ROUTE (DC) Neostigmine Methylsulfate (PROSTIGMIN) 0 .STK-ME D ONE .ROUTE (DC) Fentanyl Citrate (SUBLIMAZE) 100 MCG PACU Q10MIN PRN PRN IV Fentanyl Citrate (SUBLIMAZE) 50 MCG PACU Q10MIN PRN PRN IV Hydralazine HCl (APRESOLINE) 2 MG PACU Q10MIN SC N PRN IV Hydrocodone Bitart/Acetaminophen (NORCO 5/325) 1 TAB PACU ONCE PO (CKD) Hydromorphone HC l (DILAUDID) 1 MG PACU Q10MIN PRN PRN IV Hydromorphone HCl (DILAUDID) 0.5 MG PACU Q5MIN PRN PRN IV Insulin Human Lispro (HUMALOG) 0 PAC U ONCE PRN SUBQ Labetalol HCl (LABETALOL HCL) 5 MG PACU Q10MIN PRN PRN IV Meperidine HCl (DEMEROL 50MG/ML) 12.5 MG PACU ONCE PRN IV Morphine Sulfate (morphine SULFATE) 2 MG PACU Q10MIN PRN PRN IV Ondansetron HCl (ZOFRAN) 4 MG PACU ONCE PRN IV Promethazine HCl (PHENERGAN) 25 MG PACU ONCE PRN PO Ropivacaine (NAROPIN 0.5% 150 MG/30mL) 150 MG ASDIR PRN LOCAL Tramadol HCl (ULTRAM) 50 MG PACU ONCE PO (CKD) Heparin Sodium (HEPARIN SODIUM) 0 .STK-MED ONE .ROUTE (DC) Fentanyl Citrate (SUBLIMAZE) 0 .STK-MED ONE .ROUTE (DC) Cefazolin Sodium (KEFZOL OR ANCEF) 0 .STK-MED ONE .ROUTE (DC) Clindamycin Phosphate (CLEOCIN 900 MG/NS 50 ML) 50 ML .STK-MED ONE IV (DC) Heparin Sodium (HEPARIN SODIUM) 0 .STK-MED ONE .ROUTE (DC) Nitroglycerin/Dextrose (NITROGLYCERIN 50,000MCG/D5W 250ML) 250 ML .STK-MED ONE IV (DC) Norepinephrine Bitartrate (NOREPINEPHRINE 8 MG/NS 250 ML) 250 ML .STK-MED ONE IV (DC) Thrombin (RECOTHROM) 0 .STK-MED ONE TOPICAL (DC) Sugammadex Sodium (BRIDION) 0 .STK-MED ONE IV (DC) Dexamethasone Sodium Phosphate (DECADRON) 0 .STK-MED ONE .ROUTE (DC) Etomidate (AMIDATE) 0 .STK-MED ONE IV (DC) Ondansetron HCl (ZOFRAN) 0 .STK-MED ONE .ROUTE (DC) Rocuronium Mico (ZEMURON) 0 .STK-MED ONE IV (DC) Lidocaine HCl (XYLOCAINE) 0 .STK-MED ONE .ROUTE (DC) Famotidine (PEPCID) 20 MG DAILY PRN PO Aspirin (ASPIRIN) 81 MG DAILY PO Pantoprazol e (PROTONIX) 40 MG DAILY 0600 PO (DC) Cefazolin Sodium (KEFZOL OR ANCEF) 1 GM PREOP ONCALL IV (CKD) Sodium Chloride (SODIUM CHLORIDE) 10 MLAtorvastatin Calcium (LIPITOR) 40 MG BEDTIME P O Acetaminophen (TYLENOL) 650 MG Q4H PRN PRN PO Ondansetron HCl (ZOFRAN) 4 MG Q4H PRN PRN IV Atropine Sulfate (ATROPINE SULFATE 0.1MG/ML SYR) 0.5 MG ASDIR PRN IV (DC) Sodium Chloride (SODIUM CHLORIDE 0.9%) 500 ML ASDIR PRN IV (DC) Physical ExamGeneral appearance: alert, awake, orientedHead/Eyes: clear cornea, EOMIENT: moist mucosal membranes, normal pharynxNeck: non-tender, supple/no meningismusCardiovascular: normal heart sounds, regular rate rhythmRespiratory: aerating well, clear to auscultation, symmetric expansionAbdomen: non-tender, normal bowel sounds, soft, no distentionExtremities: moves all, no edemaMusculoskeletal: normal inspection, painles s range of motionNeuro/AREA ATTENDANT: alert, oriented X 3, n o motor deficits, no sensory deficitsSkin: dry, intact ResultsFindings/Data:Laboratory Tests 01/13 01/13 1419 0930 Chemistry Sodium (134 - 14 7 mEq/L) 140 138 Potassium (3.4 - 5.0 mEq/L) 3.5 3.6 Chloride (100 - 108 mEq/L) 112 H 106 Carbon Dioxide (21 - 33 mEq/l) 25 28 Anion Gap (0 - 20 ) 7 7 BUN (7 - 18 mg/dL) [...] - 150 mg/dL) 58 Cholesterol (<200 mg/dL) 16 1 LDL Cholesterol Measurd (0 - 100 mg/dL) 102.0 H HDL Cholesterol (39 - 96 mg/dL) 62.4 Cholesterol/HDL Ratio (3.27 - 4.44 RATIO) 2.58 L Laboratory Tests 01/13 01/13 1253 0930 Coagulation INR (0.8 - 1.2) 1.0 PTT (Rekha) (25.0 - 39.5 Seconds) 22.6 L PT Patient/Control Mix (9.3 - 12.9 SECONDS) 11.4 Activated Coag Time (7 4 - 137 SEC) 347 H Laboratory Tests 01/13 01/13 1419 0930 Hematology WBC (4.5 - 11.0 x10 3/uL) 16.6 H RBC (3.54 - 5.02 x10 6/uL) 4.13 Hgb (11. 0 - 15.0 g/dL) 10.4 L 12.7 Hct (33.0 - 45.0 %) 30. 5 L 37.8 MCV (81.0 - 99.0 fL) 91.5 MCH (27.0 - 33. 0 pg) 30.8 MCHC (33.0 - 37.0 g/dL) 33.6 RDW (11.5 - 14.5 %) 13.7 Plt Count (150 - 400 x10 3/uL) 16 1 MPV (7.0 - 9.0 fL) 10.2 H Neut % (Auto) (56.0 - 77.0 %) 79.8 H Lymph % (Auto) (14.0 - 32.0 %) 12.7 L [place] % (Auto) (4.8 - 9.0 %) 6.7 Eos % (Auto) (0.3 - 3.7 %) 0.0 L Baso % (Auto) (0.0 - 2.0 %) 0.2 Neut # (Auto) (2.0 - 7.6 x10 3/uL) 13.28 H Lymph # (Auto) (1.0 - 3.8 x10 3/uL) 2.11 [place] # (Auto) (0.1 - 0.8 x10 3/uL) 1.11 H Eos # (Auto) (0.0 - 0.2 x10 3/uL) 0.00 Baso # (Auto) (0.0 - 0.2 x10 3/uL) 0.03 Abs Immat Gran (auto) (0.00 - 0.03 x10 3/uL) 0.10 H Add Manual Diff NO Immature Gran % (0.0 - 2.0 %) 0.6 Nucleated RBC % (0 - 0 %) 0.0 Nucleated RBCs # (Man) (0.0 - 0.1 x10 3/uL) 0.00 Laboratory Tests 01/13 0600 Serology SARS-CoV-2 Ag (Rapid) (Negative) Negative Radiology data:Recent Impressions:RADIOLOGY - XR CHEST 2 V 01/13 1001 Report Impression - Status: SIGNED Entered: 01/13/2022 1323 IMPRESSION: No acute cardiopulmonary findings Impression By: [id number] - Renee Mcknight M.D. Diagnosis, Assessment Plan Free Text DxA P NotesFree text DxA P notes:Severe bilateral carotid stenosis* Plan for right carotid enterectomy today, CV surgery has seen the patient* N.p.o. pending surgery* Discussed with CV surgery, hold Plavix, okay to resume other medications including aspirin Hypertension* Controlled, will continue to monitor Hyperlipidemia* Home statin resumed History of gastric ulcer* Resume home PPI DVT prophylaxis: SCDs Quality: Gen Med Crit Care VTE ProphylaxisVTE prophylaxis initiated: yes Hanane arenas MedicationsCurrent medication review:I attest that the foregoing medication list in the medica l record is true, accurate, and complete to the best of my knowledge. Advanced Care Plan 65 or OlderDiscussed with: patientDiscussion included: living will, power of tax associate attorney, code status at 1536 RPT #:[id number] OF REPORTPRProgress [id number]:35:00G.[id number] l able for patient [id number]:37:02 2022-01-13 14:18:00 [id number]:18:00 [facility]DT Operative NoteREPORT#:[id number] REPORT STATUS: SignedDATE:01/13/22 TIME: 1418 PATIENT: MARLA CAMPOS UNIT #: [id number]#: [id number] ROOM/BED: [facility]DOB: [birth year] AGE : 76 SEX: F ATTEND: Rj Evans DT: 2 AUTHOR: Robert Gold MD * ALL edits or amendments must be made on the electronic/computer document * Operative Report Operative NoteNote:Preoperative diagnosis:Symptomatic severe Right internal carotid artery stenosis Postoperative diagnosis: Symptomatic severe Right internal carotid artery stenosis Operation: Right carotid endarterectomy Surgeon: Robert Gold MD Sorting Supervisor: Francis Urrutia Anesthesiologist: Prince Rose Marie MD Anesthesia: General endotracheal anesthesia Estimated blood loss: 20 cc Indication: Ms Desmond peguero is a very pleasant 76-year-old femalemale with symptomaticright internal carotid artery stenosi s and 70 to 80% left internal carotid artery stenosis. After due preop counseling he was brought to the operating room today for right carotid endarterectomy. Findings: 1. Calcified plaque at the bifurcation of the right common carotid artery leading to a pinhole opening in the right internal carotid artery.2. Good endpoint in the right internal carotid artery following endarterectomy.3. The hypoglossal nerv e was identified and protected throughout the procedure.4. The tongue was in the midline and patient was moving all extremities at the end of the procedure. Procedure: Ms Campos was identified in the preop holding area and brought to theoperating room and placed supine on the operating table. After induction of general endotracheal anesthesia at the right side of the neck was prepped and draped in standard surgical fashion. A 4 cm incision was made along the anterior border of the middle third right sternocleidomastoid. Platysma was divided with Bovie cautery. The deep cervical fascia was opened. The facial vein was identified dissected ligated and divided. Hypoglossal nerve was identified and protected throughout the procedure. The right common carotid artery, the right internal carotid artery, and right externa l carotid artery were identified, dissected and isolated. Patient was heparinized with 7000 unit s of heparin. After waiting for 3 minutes the bifurcation of the right common carotid artery was isolated with 3 profunda clamp. Arteriotomy was performed on the right common carotid artery and extended onto the right internal carotid artery using Freitas scissors. A Poole shunt was then placed inthe right common and internal carotid artery. Next using a Norton dissector endarterectomy of the right common and internal carotid artery was performed. Endarterectomy of the right external carotid artery was performed using eversiontechnique. There was a good endpoint in the right internal carotid artery. Next patch repair of the right common and internal carotid artery was performed using bovine pericardial patch and running 6-0 Prolene suture. Prior to tying the patch down Poole shunt was removed and careful dilation was performed. Next 7 NANO drain was placed in the wound. Hemostasis was confirmed and the neck was closed in layers using #2 Vicryl for the platysm a and 4-0 Vicryl for the skin. Patient was extubated in the operating room and moved to PAC U in stable condition. at 1421 RPT #:[id number] OF REPORTOPOperative [id number]:18:00G.[id number] a ilable for patient [id number]:26:45 2022-01-12 17:25:00 [id number]:25:00 [facility] ([facility])Hospitalist History PhysicalREPORT#:[id number] REPORT STATUS: SignedDATE:01/12/22 TIME: 1724 PATIENT: MARLA CAMPOS UNIT #: [id number]#: [id number] [address] AGE : 76 SEX: F ATTEND: Rj Evans DOADM AUTHOR: Rj Evans DO * ALL edits or amendments must be made on the electronic/computer document * History of Presen t Illness HPIChief complaint:Being admitted for carotid endarterectomy tomorrowHPI:Sharmaine is a 76-year-old female with a past medical history o f CVA with residual left-sided weakness, hypertension, hyperlipidemia, CAD with stent x3, PAD with right SFA stent who was initially brought in for elective angiogram which demonstrated severe bilateral carotid stenosis. The patient is currently asymptomatic and states CV surgery already spoke to them. She denies any recentbleeding. She denies any current chest pain, shortness of breath, nausea, vomiting, abdominal pain. She denies any bowel or bladder complaints. This wasdiscussed with CV surgery with plans for carotid endarterectomy tomorrow. History Past Medical Surgical HxAdditional medical history:cad s/p PCI, anemia, hx of ulcersAdditional surgical history:Hysterectomy Breast biopsy Cholecystectomy Knee Sinus surgery Family HistoryAdditional family history:Denies Social HistoryAlcohol use: Denies EtOH useDrug use: Denies recreational drugsSmoking status: Smoking status for patients 13 years old or older: Former Smoker Date last smoked: 07/17/89 Years smoked: 10 Pack years: 0Additional social history:Lives at home with her in a single-story home. No stairs to enter. She is ambulatory with a single-point cane. She no longer drives her assists her with any assistance at home. Medication/Allergy-Vaccine HxMedications:Home Medications:ASPIRIN EC (ECOTRIN) 81 MG PO DAILY [MAGNESIUM GLYCENATE] 2 TAB PO TID UBIDECARENONE (CO Q-10) 100 MG PO BID DOCUSATE SODIUM (COLACE) 100 MG PO DAILY PRN CONSTIPATION [PEARLS PROBIOTIC] 1 TAB PO DAILY [COSAMIN ASU JOINT ] 1 TAB PO DAILY [MOVE FREE JOINT ] 1 TAB PO DAILY [TURMERIC ] 1,000 MG PO DAILY ATORVASTATIN (LIPITOR) 40 MG PO BEDTIME LEVOCETIRIZINE (XYZAL) 5 MG PO DAILY PANTOPRAZOL E DR (PROTONIX) 40 MG PO DAILY METOLAZONE (ZAROXOLYN) 5 MG PO DAILY PRN FLUID SWELLING [PROMETHAZINE DM] (Unknown Dose) PRN COUGH [ALBUTEROL ] FAMOTIDINE (PEPCID) 20 MG PO BEDTIM E [VITAMIN D3 ] 25 MG DAILY SPIRONOLACTONE (ALDACTONE) 25 MG PO DAILY PRN EDEMA POTASSIUM CHLORIDE ER (KLOR-CON 10) 10 MEQ PO DAILY PRN WHEN TAKES METOLAZONE CLOPIDOGREL (PLAVIX) 75 MG PO DAILY Allergies:Coded Allergies:[place] And Derivatives (Severe, VOMITING 08/02/21)Penicillins (Severe, INJECTION SITE SWELLING 05/07/21)fludrocortisone (From FLORINEF ) (Severe, SEVERE RASH, SWELLING OF EYES 08/02/21)lansoprazole (From PREVACID) (Severe, NAUSEA, CHILLS 08/02/21)meperidine (From DEMEROL ) (Severe, VOMITING 08/02/21)Quinolones (Intermediate, RASH, FACIAL SWELLING 05/07/21)Sulfa (Sulfonamide Antibiotics) (Intermediate, RASH, EYE SWELLING 08/02/21)fluticasone furoate (From BREO ELLIPTA) (Intermediate, HARD TO BREATH 05/07/21)rofecoxib (From VIOXX) (Intermediate, EYE AND BODY SWELLIN G 05/07/21)sulfapyridine (Intermediate, EYE LID SWELLING 05/07/21)vilanterol (From BREO ELLIPTA) (Intermediate, HARD TO BREATH 05/07/21)Iodinated Contrast Media (UNKNOWN 08/02/21)clotrimazole (Intermediate, UTI, RASH 08/02/21)gabapentin (Intermediate, DIZZINESS, NAUSEA, CONSTIPATION 08/02/21)pregabalin (From LYRICA) (Intermediate, WATERY EYES 08/02/21)clarithromycin (From BIAXIN ) (Mild, RASH, SORE TONGUE 08/02/21)doxycycline (From PERIOSTAT) (Mild, ABDOMINAL PAIN 08/02/21)nabumetone (From RELAFEN) (Mild, ABDOMINAL PAIN 08/02/21) Review of Systems Free Text ROS NotesFree Text ROS Notes:14 point revie w of systems reviewed and negative unless otherwis e noted in HPI Physical ExamVS/I O:Last Documented : Result Date Time Pulse Ox 100 01/10 1440 B/P 159/69 01/10 1440 Temp 97.5 01/10 1440 Pulse 78 01/10 1440 Resp 16 06/27 1440 Patient Weight and BMI Weight (kg): 65.800 BMI: 25.7 General appearance: alert, awake, orientedHead/Eyes: clear cornea, EOMIENT: moist mucosal membranes, normal pharynxNeck: non-tender, supple/no meningismusCardiovascular: normal heart sounds, regular rate rhythmRespiratory: aerating well, clear to auscultation, symmetric expansionAbdomen: non-tender, normal bowel sounds, soft, no distentionExtremities: moves all, no edemaMusculoskeletal: normal inspection, painless range of motionNeuro/AREA ATTENDANT: alert, oriented X 3, no motor deficits, no sensory deficitsSkin: dry, intact Diagnosis, Assessment PlanFree Text A P:Severe bilateral carotid stenosis* Plan for right carotid enterectomy tomorrow, CV surgery has seen the patient* N.p.o . after midnight* Discussed with CV surgery, hold Plavix, okay to resume other medications including aspirin Hypertension* Controlled, will continue to monitor Hyperlipidemia* Home statin resumed History of gastric ulcer* Resume home PP I DVT prophylaxis: SCDs Quality: Gen Med Crit Care VTE ProphylaxisVTE prophylaxis initiated: yes Current MedicationsCurrent medication review:I attest that the foregoing medication list in the medical record is true, accurate, and complete t o the best of my knowledge. Advanced Care Plan 65 or OlderDiscussed with: patientDiscussion included: living will, power of tax associate attorney, code status at 1842 RPT #:[id number] OF REPORTHPHistory and physical [id number]:25:00G.[id number] 8 AVAvailable for patient [id number]:47:18 2022-01-12 13:04:00 [id number]:04:00 [facility])Cardiothoracic Surgery ConsultREPORT#:[id number] REPORT STATUS: SignedDATE:01/12/22 TIME: 1304 PATIENT: MARLA CAMPOS UNIT #: [id number]#: [id number] ROOM/BED: 3314-1DOB: [birth year] AGE: 76 SEX: F ATTEND: Rj Evans DOADM AUTHOR: Hallie Charles PLACEMENT MANAGER * ALL edits or amendments must be made on the electronic/computer document * Yumiko Felix 01/12/22 1304:History of Present Illness HPIChief complaint:Bilateral carotid stenosis PCP:PCP: Garth Hopkins MD Requesting ClinicianDr Josué HPI:Very pleasant 76-year-old female with past medical history of stroke (2019 ) withresidual left-sided weakness, hypertension, hyperlipidemia, CAD status post PCI/stent x3, PA D status post right SFA stent who has been admitte d to the hospital today for carotid angiogram. She was found to have severe bilateral carotid stenosis with right ICA at 90 to 95% stenosis an d left ICA 70 to 80%. CV surgery consulted for carotid endarterectomy. HistoryPast Medical History:Reports: Coronary artery disease. Additional Medical History:cad s/p PCI, anemia, hx of ulcersAdditional Surgical History:Hysterectomy Breast biopsy Cholecystectomy Knee Sinus surgeryAlcohol Use Denies EtOH useDrug Use Denies recreational drugsSmoking status: Smoking status for patients 13 years old or older: Former Smoker Date last smoked: 07/17/89 Years smoked: 10 Pack years: 0Additional Social History:Lives at home with he r in a single-story home. No stairs to enter. She is ambulatory with a single-point cane. She no longer drives her assists her with any assistance at home.Medications:Home Medications:Medication Dose/Rte/Freq Days Qty Entered Last Max Daily Dose Reviewed ASPIRIN EC (ECOTRIN) 81 MG PO DAILY 05/03/21 01/12/22Strength: 81 MG TAB.EC 1353 1031[MAGNESIUM GLYCENATE] 2 TAB PO TID 05/03/21 01/12/22Strength: 120 MG 1354 1031 UBIDECARENON E (CO Q-10) 100 MG PO BID 05/03/21 01/12/22Strength: 100 MG CAP 1354 1031 DOCUSATE SODIUM 100 MG PO 05/03/21 01/12/22 (COLACE) RUBA Y PRN 1355 1031Strength: 100 MG CAP CONSTIPATION[PEARLS PROBIOTIC] 1 TAB PO DAILY 05/03/21 01/12/22Strength: 1355 1031[COSAMIN ASU JOINT ] 1 TAB PO DAILY 05/03/21 01/12/22Strength : 1356 1031[MOVE FREE JOINT ] 1 TAB PO DAILY 05/03/21 01/12/22Strength: 1357 1031[TURMERIC ] 1,000 MG PO DAILY 05/03/21 01/12/22Strength: 1357 1031 ATORVASTATIN (LIPITOR) 40 MG PO BEDTIM E 05/05/21 01/12/22Strength: 40 MG TAB 1107 1031 LEVOCETIRIZINE (XYZAL) 5 MG PO DAILY 05/08/21 01/12/22Strength: 5 MG TAB [address] 40 MG PO DAILY 08/02/21 01/12/22 (PROTONIX) 1433 1031Strength: 40 MG TAB. METOLAZONE (ZAROXOLYN) 5 MG PO 11/01/21 01/12/22Strength: 5 MG TAB DAILY PRN FLUID 1434 1031 SWELLING[PROMETHAZINE DM] (Unknown Dose) 2 01/12/22Strength: (Unknown PRN COUGH 1435 1031Strength)[ALBUTEROL ] 11/01/21 01/12/22Strength: 1436 1031 FAMOTIDINE (PEPCID) 20 MG PO BEDTIME 11/01/21 01/12/22Strength: 20 M G TAB 1437 1031[VITAMIN D3 ] 25 MG DAILY 11/01/21 01/12/22Strength: 1437 1031 SPIRONOLACTONE 25 MG PO 11/01/21 01/12/22 (ALDACTONE) DAILY PRN EDEMA 1434 1031Strength: 25 MG TAB POTASSIUM CHLORIDE ER 10 MEQ PO 01/10/22 01/12/22 (KLOR-CON 10) DAILY PRN WHEN 1429 1031Strength: 10 MEQ TAB.SA TAKES METOLAZONE CLOPIDOGREL (PLAVIX) 75 MG PO DAILY 90 90 05/05/21 01/12/22Strength: 75 MG TA B 1545 1031 Current Hospital Medications:Antihistamine Drugs Sig/Nellie Start time Last Medication Dose Route Stop Time Status Admin Diphenhydramine HCl 0 .STK-MED ONE 01/12 1133 DC 01/12 (BENADRYL) .ROUTE 1146 Autonomic Drugs Sig/Nellie Start time Last Medication Dose Route Stop Time Status Admin Atropine Sulfate 0. 5 MG ASDIR PRN 01/12 1215 AC (ATROPINE SULFATE IV 01/13 1209 0.1MG/ML SYR) Blood Formation,Coagulation Sig/Nellie Start time Last Medication Dose Route Stop Time Status Admin Heparin Sodium/ 1,500 ML .STK-MED ONE 01/12 1043 DC 01/12 Sodium Chloride IV 1146 (HEPARIN 1,000 UNITS/ NS 500ML) Cardiovascular Drugs Sig/Nellie Start time Last Medication Dose Route Stop Time Status Admin Lidocaine HCl 0 .STK-MED ONE 01/12 1043 DC 01/12 (LIDOCAINE HCL/PF) .ROUTE 1146 Central Nervous System Agents Sig/Nellie Start time Last Medication Dose Route Stop Time Status Admi n Fentanyl Citrate 0 .STK-MED ONE 01/12 1124 DC 01/12 (SUBLIMAZE) .ROUTE 1146 Midazolam HCl 0 .STK-MED ONE 01/12 1124 DC 01/12 (VERSED) .ROUTE 1146 Diagnostic Agents Sig/Nellie Start time Last Medication Dose Route Stop Time Status Admin Iopamidol 0 .STK-MED ONE 01/12 1043 DC 01/12 (ISOVUE-370 100ML) IV 1146 Electrolytic, Caloric, And Cody Sig/Nellie Start time Last Medication Dose Route Stop Time Status Admin Sodium Chloride 1,000 ML .[id number] 01/12 1215 AC (SODIUM CHLORIDE IV 01/12 1534 0.9%) Sodium Chloride 500 ML ASDIR PRN 01/12 1215 AC (SODIUM CHLORIDE IV 01/13 1209 0.9%) Hormones And Synthetic Substit Sig/Nellie Start time Last Medication Dose Route Stop Time Status Admin Methylprednisolone 0 .STK-MED ONE 01/12 1133 DC 01/12 Sodium Succinate .ROUTE 1146 (Solu-Medrol 125 MG Vial) Allergies:Coded Allergies:[place] An d Derivatives (Severe, VOMITING 08/02/21)Penicillins (Severe, INJECTION SITE SWELLING 05/07/21)fludrocortisone (From FLORINEF ) (Severe, SEVERE RASH, SWELLING OF EYES 08/02/21)lansoprazole (From PREVACID) (Severe, NAUSEA, CHILLS 08/02/21)meperidine (From DEMEROL ) (Severe, VOMITING 08/02/21)Quinolones (Intermediate, RASH, FACIAL SWELLING 05/07/21)Sulfa (Sulfonamide Antibiotics) (Intermediate, RASH, EYE SWELLING 08/02/21)fluticasone furoate (From BREO ELLIPTA) (Intermediate, HARD TO BREATH 05/07/21)rofecoxib (From VIOXX) (Intermediate, EYE AND BODY SWELLIN G 05/07/21)sulfapyridine (Intermediate, EYE LID SWELLING 05/07/21)vilanterol (From BREO ELLIPTA) (Intermediate, HARD TO BREATH 05/07/21)Iodinated Contrast Media (UNKNOWN 08/02/21)clotrimazole (Intermediate, UTI, RASH 08/02/21)gabapentin (Intermediate, DIZZINESS, NAUSEA, CONSTIPATION 08/02/21)pregabalin (From LYRICA) (Intermediate, WATERY EYES 08/02/21)clarithromycin (From BIAXIN ) (Mild, RASH, SORE TONGUE 08/02/21)doxycycline (From PERIOSTAT) (Mild, ABDOMINAL PAIN 08/02/21)nabumetone (From RELAFEN) (Mild, ABDOMINAL PAIN 08/02/21) Review of Systems Revie w of SystemsConstitutional:Denies: fever, malaise. Allergy/Immun:Denies: allergic reaction. Cardiovascular:Denies: chest pain, palpitations. Heme:Denies: bleeding. Neuro:Denies: dizziness, headache. Objective Physical ExamVS/I O:Last Documented: Result Date Time Pulse Ox 100 01/10 1440 B/P 159/69 01/10 1440 Temp 97.5 01/10 1440 Pulse 78 01/10 1440 Resp 16 01/10 1440 PATIENT WEIGHT: Weight (lb): 145Weight (oz): 1.03Weight (kg): 65.800 General appearance: alert, oriented , mental status normal, no respiratory distressHEENT: anictericNeck: non-tender, supple/no meningismusCardiovascular: normal hear t sounds, regular rate rhythmRespiratory: aerating well, symmetric expansion, no distressAbdomen: soft, non-tender, no distentionExtremities: move s allNeuro/AREA ATTENDANT: alert, oriented X 3, normal speech , no motor deficitsPsychiatry: normal affect, normal mood Diagnosis, Assessment PlanFree Text A P:Very pleasant 76-year-old female with past medical history of stroke (2019) withresidual left-sided weakness, hypertension, hyperlipidemia, CAD status post PCI/stent x3, PA D status post right SFA stent who has been admitte d to the hospital today for carotid angiogram. She was found to have severe bilateral carotid stenosis with right ICA at 90 to 95% stenosis an d left ICA 70 to 80%. CV surgery consulted for carotid endarterectomy. PLAN Patient had severe bilateral carotid stenosis, right greater than left. She will benefit from carotid endarterectomy. Dr. Gold explained to the patient the procedure, risks involved, benefits, complications and alternatives. Patient acknowledged understanding and is willing to proceed.She will be admitted to the hospital for right CEA tomorrowPlease obtain consentN.p.o. after midnight Thank you for the consultation. Assessment and plan reviewed with mother Robert Christina 01/28/22 0718:Attestations Physician AttestationAgree w/findings plan:I hav e seen and examined Mr. Campos. I agree with the findings and plan as documented by CALEB Darden. Briefly, 76-year-old female with severe bilateral internal carotid artery stenosis, right more than left. Patient will benefit from carotid endarterectomy. I had a rodney g discussion with the patient, explained to her th e procedure, risk involved, benefit, alternatives, and complications. Patient hasagreed for the procedure, and making arrangement for her to hav e right carotid endarterectomy tomorrow. Thank you for the kind consult at 1461 at 3920 RPT #:[id number] OF REPORTBLLgoymvkxxphp5018-90-25P48:04:00G.PDOC 2 [id number] for patient [id number]:16:09 2022-01-12 13:03:00 [id number]:[id number] [facility] [address] [place], [place] [address] PATIENT NAME: MARLA CAMPOS ADMIT DATE: 01/12/22ACCOUNT NO: [id number] ROOM NO: [facility] AGE: 76 REPORT TYPE: CARDIAC CATHETERIZATION REPORT SEX: F ADMITTING PHYSICIAN:Rj Evans DO ATTENDING PHYSICIAN:Rj Evans DO PROCEDURE DATE: 01/12/2022 PROCEDURE PERFORMED: Bilateral selective carotid angiogram. INDICATIONS: Severe carotid stenosis by Doppler. ACCESS: Right femoral artery, 5-Iranian closed with Mynx closur e device. COMPLICATIONS: None. BLEEDING: Less than 10 mL. TOTAL SEDATION TIME: 40 minutes. DESCRIPTION OF PROCEDURE: After risks, benefits, and alternatives wereexplained, the patient agreed to proceed and signed informed consent. Thepatient was brought into the cardiac catheterization laboratory, prepped anddraped in usual sterile fashion. Then, I accessed the [facility] t femoral arteryusing micropuncture kit, ultrasoun d guidance and fluoroscopy and placed a5-Iranian Barnwell sheath and took a 5-Iranian 3DRC cathete r into the aortic rootand engaged the brachiocephalic artery and then selectively engaged the rightcommon carotid artery and performed an angiogram and then selectively engagedthe left common carotid artery and performed selective angiogram and thenremoved th e catheter and the sheath and Mynx device was used for closure withgood hemostasis. FINDINGS:1. Right common carotid artery is clean. No stenosis.2. Right internal carotid artery ostially has 90% to 95% stenosis.3. Left common carotid artery distally, there is about 20% stenosis.4. The left internal carotid artery is ostially occluded 70% to 80% stenosis.5. Both left and right external carotid arteries are patent. CONCLUSION: Severe right and left internal carotid artery stenosis, worse onthe right. PLAN: Consult CT Surgery for carotid endarterectomy of the right internalcarotid artery first and then the left internal carotid artery at a later time. Dictated By: Devon Whatley MD WT: CATH:G.JAMEL/MICHAEL/NTSDD: 2 13:03:34PATIENT NAME: MARLA CAMPOS Conf#: [id number]/DID#: [id number] Authenticated by Devon Whatley MD On 05/18/2022 09:55:41 AM at 0955 PATIENT NAME: MARLA CAMPOS [id number]:29:00G.[id number] a ble for patient [id number]:56:20 2022-01-10 13:11:00 [id number] [place] [address] PATIENT NAME: MARLA CAMPOS ADMIT DATE: ACCOUNT NO: [id number] ROOM NO: AGE: 76 REPORT TYPE: eELECTROCARDIOGRAM REPORT SEX: F ADMITTING PHYSICIAN: ATTENDING PHYSICIAN:Devon Whatley MD Order:[id number] Reason : PREOP Test Date/Time Stamp:MonJan 10 2022 13:11:39Blood Pressure : / mmHGVent. Rate : 057 BPM Atrial Rate : 057 BPM P-R Int : 152 ms QRS Dur : 092 ms QT Int : 420 ms P-R-T Axes : 064 058 071 degrees QTc Int : 408 ms Sinus bradycardia with sinus arrhythmiaAbnormal ECGPRE_OPConfirmed by JOSE R CALDERON MD ([id number]) on 01/10/2022 5:04:05 PM Referred By: Devon Whatley Confirmed by:JOSE R CALDERON MD at 1702 PATIENT NAME: MARLA CAMPOS .[id number] AVAvailable for patient [id number]:04:33 2021-11-03 11:00:00 [id number] [facility] [address] PATIENT NAME: MARLA CAMPOS ADMIT DATE: 11/03/21ACCOUNT NO: [id number] ROOM NO: AGE: 75 REPORT TYPE: CARDIAC CATHETERIZATION REPORT SEX: F ADMITTING PHYSICIAN: ATTENDING PHYSICIAN:Devon Whatley MD PROCEDURE DATE: 11/03/2021 PROCEDURE PERFORMED: Bilateral selective peripheral angiogram. INDICATIONS: Severe pain of left lower extremity with Doppler findingssuggestive of severe distal SFA stenosis. ACCESS: Right femoral artery, 6-Iranian closed with manual pressure. COMPLICATIONS: None. BLEEDING: Less than 10 mL. TOTAL SEDATION TIME: 25 minutes. DESCRIPTION OF PROCEDURE: After risks, benefits explained, the patient agreedto proceed and signed informed consent. The patient was brought to the cardiaccatheterization laboratory, prepped and draped in usual sterile fashion. Then,I accessed right femoral artery using micropuncture kit, ultrasound guidance andfluoroscopy and then we placed a 6-Iranian sheath. Then, I took a crossovercatheter into the distal aorta crossing the other side and advanced theOmniflush cathete r into the proximal iliac artery and selective angiogram wasdone with runoff all the way to the foot and then advanced the catheter into theSFA and took another selective angiogram of the left SFA all the way to thefoot. Subsequently, catheter was pulled back into the right common iliac arteryand an angiogram with runoff was don e and then removed the catheter and sheathand manual pressure was applied with good hemostasis . FINDINGS:1. Bilateral iliacs are patent.2. The right femoral artery has a focal 50% to 60% stenosis with good flow. The left femoral artery is clean. Bilateral profunda are clean.3. Right SFA widely patent stent with 10% to 20% ISR and distal to the stent,there is 20% to 30% stenosis , 3-vessel runoff all the way patent to the foot.4 . The left SFA is with diffuse 20% to 30% stenosi s in the mid portion and then30% to 40% stenosis distally.5. Below the knee, 3-vessel runoff widely patent all the way to the foot. CONCLUSION:1. Patent right SFA stent.2. Moderat e peripheral vascular disease otherwise. PLAN: [place] for medical management for now and repeat arterial Doppler in 6PATIENT NAME: MARLA CAMPOS months. Dictated By: Devon Whatley MD WT: CATH:G.JAMEL/URBANOA/NTSDD: 11/03/2021 11:00:29DT: 11/03/2021 13:39:14Conf#: [id number]/DID#: [id number] Authenticated by Devon Whatley MD On 11/17/2021 09:19:17 AM at 0919 PATIENT NAME: MARLA CAMPOS [id number]:39:00G.[id number] a ble for patient echeXALZIKGHHJNTKN3706-37-59Y25:19:45 2021-11-01 13:47:00 [id number] [place] [address] PATIENT NAME: MARLA CAMPOS ADMIT DATE: ACCOUNT NO: [id number] ROOM NO: AGE: 75 REPORT TYPE: eELECTROCARDIOGRAM REPORT SEX: F ADMITTING PHYSICIAN: ATTENDING PHYSICIAN:Devon Whatley MD Order:[id number] Reason : PREOP Test Date/Time Stamp:MonNov 01 2021 13:47:13Blood Pressure : / mmHGVent. Rate : 071 BPM Atrial Rate : 071 BPM P-R Int : 144 ms QRS Dur : 094 ms QT Int : 412 ms P-R-T Axes : 070 040 070 degrees QTc Int : 447 ms Normal sinus rhythmIncomplete right bundle branch blockSeptal infarct , age undeterminedAbnormal ECGPRE_OPConfirmed by JOSE R CALDERON MD ([id number]) o n 11/01/2021 4:15:40 PM Referred By: Devon Whatley Confirmed by:JOSE R CALDERON MD at 161 5 PATIENT NAME: MARLA CAMPOS .[id number] AVAvailable for patient [id number]:16:04 2021-08-10 07:35:00 [id number] [facility] [place] [address] PATIENT NAME: MARLA CAMPOS ADMIT DATE: 08/04/21ACCOUNT NO: [id number] ROOM NO: G.6605 AGE: 75 REPORT TYPE: OPERATIVE REPORT SEX: F ADMITTING PHYSICIAN:Devon Whatley MD ATTENDING PHYSICIAN:Devon Whatley MD OPERATION DATE: 08/04/2021 PREOPERATIVE DIAGNOSIS: POSTOPERATIVE DIAGNOSIS: PROCEDURES PERFORMED:1. Peripheral angiogram with runoff.2. CSI atherectomy of severe distal right SFA stenosis followed by balloonangioplasty and stent placement of 6 x 100 mm self-expanding stent. SURGEON: Devon Whatley MD BALANCE ENGINEER: ANESTHESIA : COMPLICATIONS: None. BLOOD LOSS: Less than 10 mL . DESCRIPTION OF PROCEDURE: After risks, benefits, and alternatives wereexplained, the patient agreed to proceed and signed informed consent. Thepatient was brought to the cardiac catheterization laboratory, prepped anddraped in usual sterile fashion and then we gave fentanyl and Versed inincremental doses to achieve adequate moderate sedation, then accessed the rightfemoral artery using micropuncture kit and ultrasound guidance fluoroscopy andplaced a 5-Iranian sheath and took a short pigtail distal aorta and performeddistal aortogram with runoff and planned to intervene on the distal SFA heavilycalcified severe stenosis. Then, obtained access in the left femoral arteryusing micropuncture kit and ultrasound guidance as wel l as fluoroscopy andplaced a 6-Iranian sheath and then I took an Omniflush catheter into the distalaorta with a Rogerson Advantage wire, crossed over to the other side and placed thewire distally in the SFA and then exchanged the 6-Iranian Barnwell sheath for ashort 6-Iranian Destination sheath and placed in the right SFA and then, took a1.5 solid crown of CSI and did the CSI atherectomy at low and medium speedmultiple runs and then balloon angioplasty was obtained and the dissection wasleft behind, so decided to place a 6 x 100 mm self-expanding stent, which waspostdilated using a 6 x 80 mm balloon. Final results were satisfactory withexcellent expansion of the stent. Then, removed the wire and the sheath wasremoved and manual pressure was applied on the left side and a sheath on theright side was removed and used a ProGlide for closure. The patient was givenheparin throughout the procedure to assure ACT level above 250 loaded with PATIENT NAME: MARLA CAMPOS Plavix and aspirin. CONCLUSION: Successful CSI atherectomy and stent placement of the distal severeSFA is heavily calcified stenosis. PLAN: Discharge home once criteria are met to go to home on aspirin, statin,and Plavix and follow up with me in the office in 2 weeks. Dictated By: Miriam White WT: OP:HALLIE/MICHAEL/MOIRADD: 08/10/2021 07:35:20DT: 08/10/2021 10:46:20Conf#: [id number]/DID#: [id number] Authenticated by Devon Whatley MD On 08/25/2021 12:29:58 PM at 1229 PATIENT NAME: MARLA CAMPOS [id number]:46:00G.[id number] i lable for patient kvhaPWTVPVWQJPJSHD0304-85-21N57:30:34 2021-08-06 11:33:00 [id number]:33:00 [facility] ([facility] BRANSONDischarge SummaryREPORT#:[id number] REPORT STATUS: SignedDATE:08/06/21 TIME: 1133 PATIENT: MARLA CAMPOS UNIT #: [id number]#: [id number] ROOM[address]DOB: [birth year] AGE : 75 SEX: F ATTEND: Devon Whatley [facility] AUTHOR: Brenda Cali AGACNP * AL Todd edits or amendments must be made on the electronic/computer document * PCP PCPPCP:PCP: Garth Hopkins MD Discharge to: home General InformationProblem List/A P: 1. Peripheral arter y disease 2. CAD (coronary artery disease) Date of admission:Observation Start Date: Date of admission: 08/04/21 Discharge date: 08/06/21Admission diagnosis:PADDischarge diagnosis:PAD s/p peripheral angioplasty with stent placementHospital course:75 YO female with PMHx of CAD s/p stent placement (04/2021) who khoury s been having intermittent claudication limiting mobility. She was brought in electively on 08/04/2021 and underwent successful peripheral angioplasty with stent placement by Dr. Whatley. She was suppose to go home, however, she developed Right groin hematoma that was resolved after after manual pressure. She was observed overnight in 6HT. However, overnight she developed sizeable left groin hematoma and >2 grams dropped in hemoglobn. She was also volume overloaded. She was givenIV lasix and was kept for one more night to monitor closely. Today she looks well. Left groin hematoma stable. SOB resolved. Pedal pulses strong by doppler. She will be discharged home on the same medications. Advised to follow-up with Dr. Whatley next week. Med Rec PCPPCP:PCP: Garth Hopkins MD Med RecDischarge meds:Continue taking these medications:ASPIRIN EC (ECOTRIN) 81 MG TAB.EC 81 MILLIGRAM ORAL DAILY. [MAGNESIUM GLYCENATE] 120 MG 2 TABLET ORAL THREE TIMES A DAY. UBIDECARENON E (CO Q-10) 100 MG CAP 100 MILLIGRAM ORAL TWICE DAILY. DOCUSATE SODIUM (COLACE) 100 MG CAP 100 MILLIGRAM ORAL DAILY. as needed for CONSTIPATION [PEARLS PROBIOTIC] 1 TABLET ORAL DAILY. [COSAMIN ASU JOINT ] 1 TABLET ORAL DAILY. Instructions: JOINT HEALTH ONE A DAY [MOVE FREE JOINT ] 1 TABLET ORAL DAILY. Instructions: JOINT HEALTH ON E A DAY [TURMERIC ] 1,000 MILLIGRAM ORAL [...] = 90 ESTROGENS,CONJ (PREMARIN 0.625 MG/GM VAGINAL) 0.625 MG/GRAM CREAM 0.5 GRAM VAGINAL TWICE A [...] 1,000 UNIT CAP 1,000 UNITS ORAL DAILY. ObjectiveVS/I OLast Documented: Result Date Time Pulse Ox 95 08/06 1040 B/P 112/65 08/06 1040 B/P Mean 80.9 08/06 1040 O2 Delivery Room air 08/06 1040 Temp 36.8 08/06 1040 Pulse 71 08/06 1040 Resp 15 07/18 1 1040 24 hour I O ending at 0700: 08/06 0700 07/18 0 1900 Intake Total Output Total Balance Number Voids 1 PATIENT WEIGHT: Weight (lb): 145Weight (oz): 8.08Weight (kg): 66.000 General appearance : alert, awake, orientedNeck: full range of motion , non-tender, no JVDCardiovascular: regular rate rhythmRespiratory: clear to auscultation, no distress, no tenderness, aerating wellGI: soft, non-tender, no guarding, no rebound, no distentionGenitourinary: not indicatedExtremities: moves all, no edema-all extremitiesMusculoskeletal: full range of motionNeuro/AREA ATTENDANT: alert, oriented X 3Skin: dry, intactWound/incision: Location:left groin hematoma stablePsychiatry: no hallucinations ResultsFindings/Data:Laboratory Tests: 08/06 060 1 Hematology Hgb (11.0 - 15.0 g/dL) 8.9 L Hct (33.0 - 45.0 %) 27.4 L Results: labs reviewed, vital signs stable, rhythm personally rev'd Discharge Instructions PCPPCP:PCP: Garth Hopkins MD )( Discharge to: Home/Self Care Discharge InstructionsAdditional Discharge Routines: PCP Follow-Up, Family Support Specialist Follow-Up)( Diet: Cardiac) ( Activity: Resume Normal Activity, As ToleratedPrescriptions: continue home medications. No new prescriptions. Quality: Gen Med Crit Care Current MedicationsCurrent medication review:I attest that the foregoing medication list in the medical record is true, accurate, and complete to the best of my knowledge. Advanced Care Plan 65 or OlderDiscussed with: patient, other at 1707 at 0713 RPT #:[id number] OF REPORTDSDischarge welkvze9840-37-60S48:33:00G.[id number] v ailable for patient uwxgVPAHNGTETWTLFA3101-08-80D18:07:35 2021-08-06 09:18:00 [id number]:18:00 [facility] ([facility])Cardiology Progress NoteREPORT#:[id number] REPORT STATUS: SignedDATE:08/06/21 TIME: 917 PATIENT: MARLA CAMPOS UNIT #: [id number]#: [id number] ROOM/BED: 6605-1DOB: [birth year] AGE : 75 SEX: F ATTEND: Devon Whatley [facility] AUTHOR: Brenda Cali * AL L edits or amendments must be made on the electronic/computer document * SubjectivePatient reports:No: complaints. Objective GeneralVS/I O:24 hour I O ending at 0700: 08/06 0700 08/05 1900 Intake Total Output Total Balance Number Voids 1 Vital Signs: Date Time Temp Pulse Resp B/P B/P Pulse O2 O2 Flow FiO2 Mean Ox Delivery Rate 08/06 0716 [...] 98 Room air PATIENT WEIGHT: Weight (lb): 145Weight (oz): 8.08Weight (kg): 66.000 Medications:Active Meds + DC'd Last 24 HrsCholecalciferol (VITAMIN D) 1,00 0 INTL.UNITS DAILY PO (CKD) Pantoprazole (PROTONIX ) 40 MG DAILY PO Atorvastatin Calcium (LIPITOR) 40 MG BEDTIME PO Docusate Sodium (COLACE) 100 MG DAILY PRN PO Potassium Chloride (POTASSIUM CHLORIDE 20MEQ TAB.ER) 20 MEQ DAILY PO Aspirin (ASPIRIN) 81 MG DAILY PO Clopidogrel Bisulfate (Plavix) 75 MG DAILY PO Furosemide (LASIX 20MG INJ) 20 MG ONCE ONE IV (DC) Spironolactone (ALDACTONE) 50 MG DAILY PO Atropine Sulfate (ATROPINE SULFATE 0.1MG/ML SYR) 0.5 MG ASDIR PRN IV (DC) Sodium Chloride (SODIUM CHLORIDE 0.9%) 500 ML ASDIR PRN IV (DC) Physical ExamGeneral appearance: alert, awake, oriented, no acute distressNeck: non-tender, no JVDCardiovascular: CV assessment: regular rate and rhythmRespiratory: clear to auscultation, no distressAbdomen: soft, non-tender, normal bowel sounds, no distention, no guarding, no mass/organomegalyGenitourinary: no flank pain, n o foleyLower extremity: LE assessment: normal temperature, no calf tenderness, no edemaMusculoskeletal: normal inspectionNeuro/AREA ATTENDANT : alert, oriented X 3Skin: dry, intactWound/incision: Location:left groin hematoma unchanged from yesterday ResultsFindings/Data:Laboratory Tests 08/05 07/18 0 1415 1415 Chemistry Sodium (134 - 147 mEq/L) 142 Potassium (3.4 - 5.0 mEq/L) 3.4 Chloride (100 - 108 mEq/L) 108 Carbon Dioxide (21 - 33 mEq/l) 29 Anion Gap (0 - 20) 8 BUN (7 - 18 mg/dL) 28 H Creatinine (0.6 - 1.3 mg/dL) 1.2 Glomerular Filt r Rate (70 - 80) 43.8 L Glucose (70 - 110 mg/dL) 9 4 Calcium (8.0 - 10.5 mg/dL) 8.7 B-Natriuretic [...] 33.0 pg) 31.5 MCHC (33.0 - 37.0 g/dL ) 33.5 RDW (11.5 - 14.5 %) 13.0 Plt Count (150 - 400 x10 3/uL) 150 MPV (7.0 - 9.0 fL) 10.4 H Indy t % (Auto) (56.0 - 77.0 %) 73.1 Lymph % (Auto) (14.0 - 32.0 %) 16.3 [place] % (Auto) (4.8 - 9.0 %) 9.4 H Eos % (Auto) (0.3 - 3.7 %) 0.1 L Baso % (Auto) (0.0 - 2.0 %) 0.3 Neut # (Auto) (2.0 - 7. 6 x10 3/uL) 8.69 H Lymph # (Auto) (1.0 - 3.8 x10 3/uL) 1.94 [place] # (Auto) (0.1 - 0.8 x10 3/uL) 1.12 H Eos # (Auto) (0.0 - 0.2 x10 3/uL) 0.01 Baso # (Auto) (0.0 - 0.2 x10 3/uL) 0.03 Abs Melissa t Gran (auto) (0.00 - 0.03 x10 3/uL) 0.09 H Add Manual Diff NO Immature Gran % (0.0 - 2.0 %) 0.8 Nucleated RBC % (0 - 0 %) 0.0 Nucleated RBCs # (Man) (0.0 - 0.1 x10 3/uL) 0.00 Laboratory Tests 08/05 1415 Chemistry B-Natriuretic Peptide (0 - 100 PG/ML) 59.0 Results: labs reviewed, vital signs stable, rhythm personally rev'dTelemetry Interpretation:sinus rhythm Diagnosis, Assessmen t PlanProblem List/A P: 1. Peripheral artery disease 2. CAD (coronary artery disease) Plan discussed with: patient, spouse/partner, nurse Free Text DxA P NotesFree Text DxA P Notes:5 YO female with PMHx of CAD s/p stent placement (04/2021) who has been having intermittent claudication limiting mobility. She was brought in electively on 08/04/2021 and underwent successful peripheral angioplasty by Dr. Whatley. She is observed overnight in 6HT. On assessment she has left groin golf-ball size hematoma and per bedside RN the hematoma size is about the same since she came in this morning. 1. PAD s/p peripheral angioplasty and stent placementcontinue Plavix, baby ASA, statingive Plavix and ASA nowpedal pulse palpableleft groin hematoma -hgb 12.2->9.4->8.9 SOB resolved after one dose of IV lasix yesterda 2. CAD with prior PCIresume Plavix, ASA, statinno BB as BP is on the low side will DC her home today. Outpatient f/u with Dr. Bautista next wk. at 1645 at 0713 RPT #:[id number] OF REPORTPRProgress nvya5410-06-57A30:18:00G.[id number] todd able for patient urfwVKDNKVXVVYGCCA9684-43-55B13:46:01 2021-08-05 14:04:00 [id number]:04:00 [facility] ([facility])History Physical - AdultREPORT#:[id number] REPORT STATUS: SignedDATE:08/05/21 TIME: 1404 PATIENT: MARLA CAMPOS UNIT #: [id number]#: [id number] [address]DOB: [birth year] AGE : 75 SEX: F ATTEND: Devon Whatley MDA AUTHOR: Brenda Cali AGACNP * AL L edits or amendments must be made on the electronic/computer document * History of Presen t Illness HPIChief complaint:intermittent claudication PCP:PCP: Garth Hopkins MD HPI:75 Y O female with PMHx of CAD s/p stent placement (04/2021) who has been having intermittent claudication limiting mobility. She was brought in electively on 08/04/2021 and underwent successful peripheral angioplasty by Dr. Whatley. She is observed overnight in 6HT. On assessment she has left groin golf-ball size hematoma and per bedside RN the hematoma size is about the same since she came in this morning. Informant/historian: patient, family/other at bedside HistoryPast medical history:Reports: Coronary artery disease. Additional medical history:cad s/p PCI, anemia, hx of ulcersAdditional surgical history:Hysterectomy Breast biopsy Cholecystectomy Knee Sinus surgeryAdditional family history:DeniesAlcohol use: Denies EtOH useDrug use: Denies recreationa l drugsSmoking status: Smoking status for patients 13 years old or older: Former Smoker Packs per day: 0.25 Years smoked: 12 Pack years: 3.00Additional social history:Lives at home with her in a single-story home. No stairs to enter. She is ambulatory with a single-point cane. She no longer drives her assists her with any assistance at home. Medication/Allergy-Vaccine HxAllergies:Coded Allergies:[place] And Derivatives (Severe, VOMITING 08/02/21)Penicillins (Severe, INJECTION SITE SWELLING 05/07/21)fludrocortisone (From FLORINEF) (Severe, SEVERE RASH, SWELLING OF EYES 08/02/21)lansoprazole (From PREVACID) (Severe, NAUSEA, CHILLS 08/02/21)meperidine (From DEMEROL ) (Severe, VOMITING 08/02/21)Quinolones (Intermediate, RASH, FACIAL SWELLING 05/07/21)Sulfa (Sulfonamide Antibiotics) (Intermediate, RASH, EYE SWELLING 08/02/21)fluticasone furoate (From BREO ELLIPTA) (Intermediate, HARD TO BREATH 05/07/21)rofecoxib (From VIOXX) (Intermediate, EYE AND BODY SWELLIN G 05/07/21)sulfapyridine (Intermediate, EYE LID SWELLING 05/07/21)vilanterol (From BREO ELLIPTA) (Intermediate, HARD TO BREATH 05/07/21)Iodinated Contrast Media (UNKNOWN 08/02/21)clotrimazole (Intermediate, UTI, RASH 08/02/21)gabapentin (Intermediate, DIZZINESS, NAUSEA, CONSTIPATION 08/02/21)pregabalin (From LYRICA) (Intermediate, WATERY EYES 08/02/21)clarithromycin (From BIAXIN ) (Mild, RASH, SORE TONGUE 08/02/21)doxycycline (From PERIOSTAT) (Mild, ABDOMINAL PAIN 08/02/21)nabumetone (From RELAFEN) (Mild, ABDOMINAL PAIN 08/02/21) Ambulatory status: Independent Review of SystemsConstitutional:Reports: generalized weakness. Respiratory:Reports: SOB. Cardiovascular:Denies: chest pain, palpitations. GI:Denies: abdominal pain, nausea, vomiting. Heme:Reports: other (hematoma - left groin). Physical ExamVS/I OVital Signs: Date Time Temp Pulse Resp B/P B/P Pulse O2 O2 Flow FiO2 Mean Ox Delivery Rate 08/05 1053 36.5 78 15 94/45 61.1 9 8 Room air 08/05 0712 36.6 70 15 106/64 77.9 99 Room air 08/05 0357 36.4 76 18 94/54 67.6 98 Missy m air 08/04 2341 36.6 69 18 108/61 76.7 96 Room ai r 08/049 36.4 72 18 119/67 84.2 95 Room air PATIENT WEIGHT: Weight (lb): 145Weight (oz): 8.08Weight (kg): 66.000 General appearance: alert, awake, oriented, no acute distress, pleasant, conversationalENT: moist mucosal membranes, normal noseNeck: non-tender, no JVDCardiovascular: regular rate rhythm, pedal pulses presentRespiratory: shortness of breath, no distressAbdomen/GI: active bowel sounds, soft , non-tender, no guarding, no rebound, no distention, no mass/organomegaly, no pulsatile mass, no hernia, normal abdominalaortaExtremities: moves all, no calf tenderness, no cyanosis, no pedal edema, no peripheral edemaMusculoskeletal: normal inspectionNeuro/AREA ATTENDANT: alert, oriented X 3Skin: dry, intact, no gross abnormalitiesPsychiatry: n o hallucinations, normal affect, normal judgment/insight, normal mood, not homicidal, no t suicidal ResultsFindings/Data:Laboratory Tests: 08/04 08/04 08/04 08/04 08/04 1902 1755 1658 155 4 1519 Coagulation Activated Coag Time (74 - 137 SEC) 154 H 178 H 207 H 243 H 237 H Results: no new labs, vital signs stable Diagnosis, Assessment PlanProblem List/A P: 1. Peripheral artery disease 2. CAD (coronary artery disease) Plan discussed with: patient, spouse/partner, nurse Code Status/Resusc. DiscussionResuscitatio n discussion: Discussed with: patient, familyCode status: full code Free Text DxA P NotesFree Text DxA P Notes:75 YO female with PMHx of CAD s/p stent placement (04/2021) who has been having intermittent claudication limiting mobility. She was brought in electively on 08/04/2021 and underwent successful peripheral angioplasty by Dr. Whatley. She is observed overnight in 6HT. On assessment she has left groin golf-ball size hematoma and per bedside RN the hematoma size is about the same since she came in this morning. 1 . PAD s/p peripheral angioplastycontinue Plavix, baby ASA, statingive Plavix and ASA nowpedal pulse palpableleft groin hematoma -hgb 9.4 today , hgb was 12.2 on 08/02/21 She is also slightly dyspneic - will give IV lasix 20 mg x1 2. CAD with prior PCIresume Plavix, ASA, statinno BB as BP is on the low side Home later this evening. Quality: Gen Med Crit Care Current MedicationsCurrent medication review:I attest that the foregoing medication list in the medica l record is true, accurate, and complete to the best of my knowledge. Advanced Care Plan 65 or OlderDiscussed with: patient, other at 1542 at 0713 RPT #:[id number] OF REPORTHPHistory and physical llpevbtkysz8603-34-38E87:04:00G.[id number] 4 AVAvailable for patient ycdmRYHILUMKNQNKZW0378-58-15W92:46:03 2021-08-02 12:45:00 [id number]:45:[id number] [facility] [place] [address] PATIENT NAME: MARLA CAMPOS ADMIT DATE: ACCOUNT NO: [id number] ROOM NO: AGE: 75 REPORT TYPE: eELECTROCARDIOGRAM REPORT SEX: F ADMITTING PHYSICIAN: ATTENDING PHYSICIAN:Devon Whatley MD Order:[id number] Reason : PREOP Test Date/Time Stamp:MonAug 02 2021 12:45:42Blood Pressure : / mmHGVent. Rate : 063 BPM Atrial Rate : 063 BPM P-R Int : 142 ms QRS Dur : 090 ms QT Int : 386 ms P-R-T Axes : 066 015 048 degrees QTc Int : 395 ms Normal sinus rhythmNormal ECGPRE_OPConfirmed by JOSE R CALDERON MD ([id number]) on 08/02/2021 1:13:43 PM Referred By: Devon Whatley Confirmed by:JOSE R CALDERON MD at 1313 PATIENT NAME: MARLA CAMPOS .[id number] AVAvailable for patient vulaQZHEFFXIDTJHMV9117-78-18Y96:14:09 2021-05-15 09:47:00 [id number]:47:00 [facility] ([facility])Discharge SummaryREPORT#:[id number] REPORT STATUS: SignedDATE:05/15/21 TIME: 09 PATIENT: MARLA CAMPOS UNIT #: [id number]#: [id number] [address] [birth year] AGE : 75 SEX: F ATTEND: Arun Bishop DOADM AUTHOR: Rj Evans DO * ALL edits or amendments must be made on the electronic/computer document * General InformationProblem List/A P: 1. Upper GI bleed A P Likely due to gastric ulcer in the setting of aspirin and Plavix Continue PPI per gastroenterology GI seen, s/p EGD. Given recent stent placement, benefits outweigh risk of ongoing dual antiplatelet therapy 2. CAD (coronary artery disease) A P Patient just had stents placed on 05/05/2021, will need to continue aspirin andPlavix at this time Continue Lipitor 40 mg at bedtime Patient had the stents placed in [place] Seen and discussed case with cardiology, cleared for discharge and outpatient follow-up including outpatient cardia c rehab which her machine precision engraver will set up on follow-up appointment 3. Hypotension A P Transient hypotension has remain resolved, suspect secondary to hypovolemia andanesthesia, will continue to monitor, H H remained stable 4. Gastric ulcer A P Continue PPI per gastroenterology. Benefits of antiplatelet therapy outweigh risk given recent PCI 5. Hypomagnesemia A P Replacement ordered. Patient reports she chronically takes magnesium 3 times a day at home and has follow-up with her PCP, will replete magnesium now and patient instructed to continue ongoing replacement per her PCP and monitoring asan outpatient Free Text A P:The patient was discharged on 05/12/2021ischarge date: 05/12/21Hospital course: 1. Upper GI bleed Likely due to gastric ulcer in the setting of aspirin and Plavix Continue PPI per gastroenterology GI seen, s/p EGD. Given recent stent placement, benefits outweigh risk of ongoing dual antiplatelet therapy 2. CAD (coronary artery disease) Patient just had stent s placed on 05/05/2021, will need to continue aspirin andPlavix at this time Continue Lipitor 40 mg at bedtime Patient had the stents placed i [facility] Seen and discussed case with cardiology, cleared for discharge and outpatient follow-up including outpatient cardiac rehab which her machine precision engraver will set up on follow-up appointment 3. Hypotension Transient hypotensio n has remain resolved, suspect secondary to hypovolemia andanesthesia, will continue to monitor, H H remained stable 4. Gastric ulcer Continue PPI per gastroenterology. Benefits of antiplatelet therapy outweigh risk given recent PCI 5. Hypomagnesemia Replacement ordered. Patient reports she chronically takes magnesium 3 times a day at home and has follow-up with her PCP, will replete magnesium now and patient instructed to continue ongoing replacement per her PCP and monitoring asan outpatient Consultants: gastroenterology Med Rec Med RecDischarge meds:Stop taking the following medications:OMEPRAZOLE ER (PriLOSEC) 40 MG CAP.D R 40 MILLIGRAM ORAL TWICE DAILY. Continue taking these medications:ASPIRIN EC (ECOTRIN) 81 MG TAB.EC 81 MILLIGRAM ORAL DAILY. [MAGNESIUM GLYCERINAT] Instructions: TAKES 120MG 2 TABLETS THREE TIMES A DAY UBIDECARENONE (CO Q-10) 100 MG CAP 100 MILLIGRAM ORAL TWICE DAILY. DOCUSATE SODIUM (COLACE) 100 MG CAP 100 MILLIGRAM ORAL DAILY. as needed for CONSTIPATION [PEARLS PROBIOTIC] Instructions: ONE A DAY [VITAMIN D3] Instructions: TAKES 25MG ONCE DAY [COSAMIN ASU JOINT ] Instructions: JOINT HEALTH ONE A DAY [MOVE FREE JOINT ] Instructions: JOINT HEALTH ON E A DAY [TUMERIC ] Instructions: 1000MG ONE [...] = 90 ESTROGENS,CONJ (PREMARIN 0.625 MG/GM VAGINAL) 0.625 MG/GRAM CREAM 0.5 GRAM VAGINAL TWICE A [...] ORAL DAILY. Start taking the following new medications:PANTOPRAZOLE DR (PROTONIX) 40 MG TAB.DR 40 MILLIGRAM ORAL EVERY 12 HOURS. Qty = 6 0 No Refills Discharge Instructions PCP)( Follow u p labs, proc, tx:Keep a log of your blood pressure and heart rate at least twice a day for your PCP . Monitor for any recurrence of bleeding. Monitor your magnesium level with your PCP. Continue taking your home magnesium. Can use rolling walker for stability. Continue Protonix twice a day.)( Discharge to: Home/Self Care Discharge InstructionsAdditional Discharge Routines: PCP Follow-Up, Family Support Specialist Follow-Up, Equipment/Supplies, F/U Labs/Procedures)( Diet: Cardiac)( Activity: Walk with Assistance)( Equipment/supplies: Rolling walker Follow-up AppointmentsPCP follow up: PCP: No Primary or Family Physician PCP follow up timeframe: In 3 days Special instructions:CALL TO SCHEDULE APPOINTMENTAttending Physician: Attending Physician: Arun Bishop DO Ixaivuvhzk provider 1: Provider 1: Devon Whatley MD Specialty: CardiologyInterventional Consult follow up timeframe: In 1-2 weeks Specia l instructions:CALL TO SCHEDULE APPOINTMENTConsulting provider 2: Provider 2: Eric Hall MD Specialty: Gastroenterology Follow up timeframe: In 1-2 weeks Special instructions:CALL TO SCHEDULE APPOINTMENT Quality: Gen Med Crit Care VTE ProphylaxisVTE prophylaxis initiated: yes Hanane arenas MedicationsCurrent medication review:I attest that the foregoing medication list in the medica l record is true, accurate, and complete to the best of my knowledge. Advanced Care Plan 65 or OlderDiscussed with: patientDiscussion included: living will, power of tax associate attorney, code status at 0948 RPT #:[id number] OF REPORTDSDischarge [id number]:47:00G.[id number] v ailable for patient [id number]:49:08 2021-05-12 14:39:00 [id number]:39:00 [facility]Hospitalist Renetta peguero NoteREPORT#:[id number] REPORT STATUS: SignedDATE:05/12/21 TIME: 1439 PATIENT: MARLA CAMPOS UNIT #: [id number]#: [id number] [address] [birth year] AGE : 75 SEX: F ATTEND: Arun Bishop DOADM AUTHOR: Rj Evans DO * ALL edit s or amendments must be made on the electronic/computer document * SubjectiveComments:Patient seen and examined, at bedside. Denies any bleeding. No new events. Patient wants to go home. No overnight events per RN. Discussed case with case management as well as cardiology Objective GeneralVS/I O:Vital Signs: Date Time Temp Pulse Resp B/P B/P Pulse O2 O2 Flow FiO2 Mean Ox Delivery Rate 05/12 1056 [...] Weight (lb): Weight (oz): Weight (kg): 70.700 Medications:Active Meds + DC'd Last 24 HrsMagnesium Oxide (MAG-OX 400) 400 MG DAILY PO (DCD) Magnesium Sulfate (MAGNESIUM SULFATE 2GM/SWFI 50ML) 50 ML ONCE ONE IV (DC) Pantoprazole (PROTONIX) 40 MG Q12H PO (DCD) Atorvastatin Calcium (LIPITOR) 40 MG DAILY@2100 PO (DCD) Aspirin (ASPIRIN) 81 MG DAILY PO (DCD) Clopidogrel Bisulfate (Plavix) 75 MG DAILY PO (DCD) Spironolactone (ALDACTONE) 50 MG DAILY PO (DCD) Acetaminophen (TYLENOL) 650 MG Q4H PRN PRN PO (DCD) Acetaminophen/Codeine Phosphate (TYLENO L W CODEINE NO.3) 1 TAB Q6H PRN PRN PO (DCD) Al Hydrox/Mg Hydrox/Simethicone (MYLANTA) 30 ML Q4H PRN PRN PO (DCD) Docusate Sodium (COLACE) 100 MG BID PRN PRN PO (DCD) Hydralazine HCl (APRESOLINE ) 10 MG Q6H PRN PRN IV (DCD) Ondansetron HCl (ZOFRAN) 4 MG Q4H PRN PRN IV (DCD) Sodium Chloride (SODIUM CHLORIDE 0.9%) 1,000 ML .Q13H20 M IV (DCD) Sodium Chloride (SODIUM CHLORIDE) 10 ML ASDIR PRN IV (DCD) Free Text Obj NotesFree Text Obj Notes:General appearance: alert, awake, orientedHead/Eyes: atraumatic, normocephalicENT: moist mucosal membranes, normal pharynxNeck: non-tender, supple/no meningismus, no JVDCardiovascular: normal capillary refill, normal heart sounds, regular rate rhythmRespiratory: aerating well, clear to auscultation, symmetric expansionAbdomen: non-tender, normal bowel sounds, soft, no distentionExtremities: no clubbing, no cyanosis, no edemaNeuro/AREA ATTENDANT: alert, oriented X 3, CNII-XII intactSkin: dry, intactPsychiatry: normal affect , normal judgment/insight Diagnosis, Assessment PlanProblem List/A P: 1. Upper GI bleed Likely due to gastric ulcer in the setting of aspirin and Plavix Continue PPI per gastroenterology GI seen, s/p EGD. Given recent stent placement, benefits outweigh risk of ongoing dual antiplatelet therapy 2. CAD (coronary artery disease) Patient just had stents placed on 05/05/2021, will need to continue aspirin andPlavix at this time Continue Lipitor 40 mg at bedtime Patient had the stents placed in [place] Seen and discussed case with cardiology, cleared for discharge and outpatient follow-up including outpatient cardiac rehab which her machine precision engraver will set up on follow-up appointmen t 3. Hypotension Transient hypotension has remain resolved, suspect secondary to hypovolemia andanesthesia, will continue to monitor, H H remained stable 4. Gastric ulcer Continue PPI pe r gastroenterology. Benefits of antiplatelet therapy outweigh risk given recent PCI 5. Hypomagnesemia Replacement ordered. Patient reports she chronically takes magnesium 3 times a day at home and has follow-up with her PCP, will replete magnesium now and patient instructed to continue ongoing replacement per her PCP and monitoring asan outpatient Consultants: gastroenterology Free Text DxA P NotesFree text DxA P notes:SCDs for DVT prophylaxisRegular dietPatient does not have a living will or power of tax associate attorney Quality: Gen Med Crit Care VTE ProphylaxisVTE prophylaxis initiated: yes Hanane arenas MedicationsCurrent medication review:I attest that the foregoing medication list in the medica l record is true, accurate, and complete to the best of my knowledge. Advanced Care Plan 65 or OlderDiscussed with: patientDiscussion included: living will, power of tax associate attorney, code status at 1444 RPT #:[id number] OF REPORTPRProgress [id number]:39:00G.[id number] l able for patient [id number]:45:12 2021-05-12 14:00:00 [id number]:00:00 [facility] ([facility])Rehab Progress NoteREPORT#:[id number] REPORT STATUS: SignedDATE:05/12/21 TIME: 1400 PATIENT: MARLA CAMPOS UNIT #: [id number]#: [id number] [address] [birth year] AGE : 75 SEX: F ATTEND: Arun Bishop DOADM AUTHOR: Modesta Hall PA-C * ALL edits o r amendments must be made on the electronic/computer document * SubjectiveChief complaint:Pt seen and examinesd sitting in the bedsdie chair. She looks good. No acute comaplints. States no Cp, SOb, ABD Pain. States has been up walking in her room. Objective GeneralVS:Vital Signs: Date Time Temp Pulse Resp B/P B/P Pulse O2 O2 Flow FiO2 Mean Ox Delivery Rate 05/12 1056 97.7 68 15 123/71 88.3 96 Room air 05/12 0708 97.7 62 18 125/67 86.3 97 Room ai r 05/12 0426 97.9 64 17 116/70 85.6 95 05/12 0006 98.1 64 13 127/67 86.7 97 Room air 05/11 1916 97.7 65 15 118/65 82.9 97 Room air 05/11 1658 97.3 65 17 119/67 84.5 97 Room air PATIENT WEIGHT: Weight (lb): Weight (oz): Weight (kg): 70.700 Medications:Active Meds + DC'd Last 24 HrsMagnesium Oxide (MAG-OX 400) 400 MG DAILY PO Magnesium Sulfate (MAGNESIUM SULFATE 2GM/SWFI 50ML) 50 ML ONCE ONE IV (DC) Pantoprazole (PROTONIX) 40 MG Q12H PO Atorvastatin Calcium (LIPITOR) 40 MG DAILY@2100 PO Aspirin (ASPIRIN) 81 MG DAILY PO Clopidogrel Bisulfate (Plavix) 75 MG DAILY PO Spironolactone (ALDACTONE) 50 MG DAILY PO Acetaminophen (TYLENOL) 650 MG Q4H PRN PRN PO Acetaminophen/Codeine Phosphate (TYLENOL W CODEINE NO.3) 1 TAB Q6H PRN PRN PO Al Hydrox/Mg Hydrox/Simethicone (MYLANTA) 30 ML Q4H PRN PRN P O Docusate Sodium (COLACE) 100 MG BID PRN PRN PO Hydralazine HCl (APRESOLINE) 10 MG Q6H PRN PRN I V Ondansetron HCl (ZOFRAN) 4 MG Q4H PRN PRN IV Sodium Chloride (SODIUM CHLORIDE 0.9%) 1,000 ML .[id number] IV Sodium Chloride (SODIUM CHLORIDE) 10 ML ASDIR PRN IV Functional ProgressFunctional progress:n one supervision with cueing and assistance provided to ensure proper performance of all activities. Yes Precautions: Fall Safety addressed through use of: Gait Belt Verbal Cues Tactile Cues Weightbearing Restrictions: No Restriction ACTIVITIES PERFORMED: Bed Mobility - Rolling: Modified [place] Bed Mobility - Supine to Sit: Modified [place] Bed Mobilit y - Sit to Supine: Modified [place] Scooting: Modified [place] Sit to Stand: Minimal Assistance Static Sitting: Independent Dynamic Sitting: Modified [place] Static Standing: Supervision or Set-up Dynamic Standing: [...] No Functional Mob.Cmt: PATIENT REPORTED NO NEW COMPLAINTS. PT EDUCATED HER AND ABOUT PT POC, SAFETY, AND BILAT. LE HEP. THEY VERBALIZED UNDERSTANDING BUT PATIEN T NEEDS REVIEW. TOLERATED PT WELL. MATHIEU BROWER INFORMED AND AWARE ABOUT THE RESULT OF PT SESSION. PT charges: FT/Therap. Activity 07150 I f this is the patient's last treatment, this entry serves as the discharge summary: Y Start time: 1041 Stop time: 1056 Treatment Time: (minutes) 0:15 Completed by: Sandrita Ring Physical ExamHEENT: anicteric, mucosal membranes moist, sclera clearNeck: supple, no JVDCardiovascular: regular rate rhythm, S1/O0Ailavdhfgsq: aerating well, clear bilaterallyAbdomen: bowel sounds present, non-distended, soft, non-tenderMusculoskeletal - general: Musculoskeletal - general: joints normal, range of motion normal, strength testing normal, no atrophy, no swellingNeuro/AREA ATTENDANT: alert, oriented X 3, normal speech, no motor deficits, no sensory deficits Diagnosis, Assessment PlanFree Text A P:The patient is a 75-year-old female with past medical history significant for coronary artery disease status post stent placement on 05/05/2021, history of CVA, right carotid occlusion, gastric ulcers and hemorrhoids. She was dx with gastric ulcer likely causing the bleeding. Plan: Pt seen sitting in the bedsdie chair. She was seen in bedside chair and states she was seen by therapy and walked around the unit twicw ambulating 400 ft. She states she did use a RW which made her feel more comfortable with, but feels better. I discussed with her and her about different options for rehab. Recommended home health or outpt therapy. She will benefit from a RW for the time being. 05/12 : Pt doing well. No further bleeding noted. Hgb stable. She has been up walking in her room today. PT noted 400 ft at MIN A and MOD I with bed mobility and STS. Recommend outpt therapy. Her Cardiology to given recommendations and orders. Due to [Cardiac debility] patient has a mobility limitation that prevents him/her from performing MRADLS in the home such as [Toileting]. The patient requires a walker to safely perform MRADLS in the home and a cane nimco l not resolve the issue. The patients mobility imitations are [endurance ]. Consultants: gastroenterologyRehab attestation:Face to face exam completed. Treatment plan discussed with patient. at 1403 RPT #:[id number] OF REPORTPRProgress [id number]:00:00G.[id number] l able for patient [id number]:03:35 2021-05-12 10:34:00 [id number]:34:00 [facility] ([facility])Cardiology Progress NoteREPORT#:[id number] REPORT STATUS: SignedDATE:05/12/21 TIME: 1034 PATIENT: MARLA CAMPOS UNIT #: [id number]#: [id number] ROOM/BED: 6601-1DOB: [birth year] AGE : 75 SEX: F ATTEND: Arun Bishop DOADM AUTHOR: Brenda Cali * ALL edits or amendments must be made on the electronic/computer document * SubjectivePatient reports:No: complaints. Objective GeneralVS/I O:24 hour I O ending at 0700: 05/12 0700 05/11 1900 Intake Total Output Total Balance Number Voids 3 Vital Signs: Date Time Temp Pulse Resp B/P B/P Pulse O2 O2 Flow FiO2 Mean Ox Delivery Rate 05/12 0708 [...] Weight (lb): Weight (oz): Weight (kg): 70.700 Medications:Active Meds + DC'd Last 24 HrsMagnesium Sulfate (MAGNESIUM SULFATE 2GM/SWFI 50ML) 50 ML ONCE ONE IV (DC) Pantoprazole (PROTONIX) 40 MG Q12H PO Atorvastatin Calcium (LIPITOR) 40 MG DAILY@2100 PO Aspirin (ASPIRIN) 81 MG DAILY PO Clopidogrel Bisulfate (Plavix) 75 MG DAILY PO Spironolactone (ALDACTONE) 50 MG DAILY PO Acetaminophen (TYLENOL) 650 MG Q4H PRN PRN PO Acetaminophen/Codeine Phosphate (TYLENOL W CODEINE NO.3) 1 TAB Q6H PRN PRN PO Al Hydrox/Mg Hydrox/Simethicone (MYLANTA) 30 ML Q4H PRN PRN P O Docusate Sodium (COLACE) 100 MG BID PRN PRN PO Hydralazine HCl (APRESOLINE) 10 MG Q6H PRN PRN I V Ondansetron HCl (ZOFRAN) 4 MG Q4H PRN PRN IV Sodium Chloride (SODIUM CHLORIDE 0.9%) 1,000 ML .[id number] IV Sodium Chloride (SODIUM CHLORIDE) 10 ML ASDIR PRN IV Physical ExamGeneral appearance: alert, awake, oriented, no acute distressNeck: non-tender, no JVDCardiovascular: CV assessment: regular rate and rhythmRespiratory: clear to auscultation, no distressAbdomen: soft, non-tender, normal bowel sounds, no distentionGenitourinary: no foleyLower extremity : LE assessment: no edemaMusculoskeletal: normal inspectionNeuro/AREA ATTENDANT: alert, oriented X 3Psychiatry: normal affect, normal mood ResultsFindings/Data:Laboratory Tests 05/12 052 0 Chemistry Sodium (134 - 147 mEq/L) 139 Potassiu m (3.4 - 5.0 mEq/L) 3.4 Chloride (100 - 108 mEq/L) 103 Carbon Dioxide (21 - 33 mEq/l) 28 Anion Gap (0 - 20) 12 BUN (7 - 18 mg/dL) 11 Creatinine (0. 6 - 1.3 mg/dL) 0.9 Glomerular Filtr Rate (70 - 80) 61.0 L Glucose (70 - 110 mg/dL) 94 Calcium (8.0 - 10.5 mg/dL) 9.5 Magnesium (1.80 - 2.40 mg/dL) 1.70 L Laboratory Tests 05/12 0520 Hematology WB C (4.5 - 11.0 x10 3/uL) 8.0 RBC [...] MPV (7.0 - 9.0 fL) 10.8 H [place] t % (Auto) (56.0 - 77.0 %) 59.1 Lymph % (Auto) (14.0 - 32.0 %) 23.8 [place] % (Auto) (4.8 - 9.0 % ) 8.1 Eos % (Auto) (0.3 - 3.7 %) 7.7 H Baso % (Auto) (0.0 - 2.0 %) 0.9 Neut # (Auto) (2.0 - 7.6 x10 3/uL) 4.76 Lymph # (Auto) (1.0 - 3.8 x10 3/uL) 1.91 [place] # (Auto) (0.1 - 0.8 x10 3/uL) 0.65 Eos # (Auto) (0.0 - 0.2 x10 3/uL) 0.62 H Baso # (Auto) (0.0 - 0.2 x10 3/uL) 0.07 Abs Melissa t Gran (auto) (0.00 - 0.03 x10 3/uL) 0.03 Add Manual Diff NO Immature Gran % (0.0 - 2.0 %) 0.4 Nucleated RBC % (0 - 0 %) 0.0 Nucleated RBCs # (Man) (0.0 - 0.1 x10 3/uL) 0.00 Laboratory Tests 05/12 0520 Chemistry Magnesium (1.80 - 2.40 mg/dL) 1.70 L Results: labs reviewed, vital sign s stable Diagnosis, Assessment PlanPlan discussed with: patient, spouse/partner Free Text DxA P NotesFree Text DxA P Notes:Patient is 75 year ol d woman with recent PCI (05/05/21), on aspirin/plavix, withprior history of GI ulcers. She reports had an EGD/Colonoscopy a few months ago.Cardiology consulted for CAD with GI bleed. CAD05/05/21 C: atherectomy of nja-om-iwdunq RCA, PCI to proximal, igr-sr-uwwjek RCA continue ASA 81mg PO daily, Plavix 75mg PO daily, atorvastin 40 mg daily unable to tolerate BB d/t borderline low BPpatient must remain on dual antiplatelet therapy, given recent stent 0 GI BleedHGB stable 11.3GI following CT Abd: No acute CT abnormalities of the abdomen or pelvis are detected. HypomagnesemiaMag sulfate 2 G IV f2sladxt home med Magnesium supplement Rehab consulted but per their assessment patient is to o functional to qualify for inpatient rehab. She may benefit from outpatient cardiac rehab. She has an upcoming appointment with Dr. Whatley this Monday. Family plan to discuss with him about referring the patient for outpatient cardiac rehab. The [facility] to them is [facility] cardiac rehab. Okay to discharge from cardiology service at 1243Electronically Signed by Edyta Reynolds MD o n 05/27/21 at 1151 RPT #:[id number] OF REPORTPRProgress [id number]:34:00G.[id number] l able for patient [id number]:43:30 2021-05-12 10:23:00 [id number]:23:00 [facility] ([facility])Gastroenterology Progress NoteREPORT#:[id number] REPORT STATUS: SignedDATE:05/12/21 TIME: 1023 PATIENT: MARLA CAMPOS UNIT #: [id number]#: [id number] [address] [birth year] AGE : 75 SEX: F ATTEND: Arun Bishop DOADM AUTHOR: Suleiman Duran * ALL edits or amendments must be made on the electronic/computer document * Suleiman Duran 05/12/21 1023:SubjectiveComments:Patient is feeling well. Patient reports normal BM. Denies abdominal pain or vomiting. Tolerating PO. Revie w of SystemsAdditional notes:10 point ros neg except hpi Objective GeneralVS/I O:Last Documented: Result Date Time Pulse Ox 97 05/12 708 B/P 125/67 05/12 708 B/P Mean 86.3 05/12 708 O2 Delivery Room air 05/12 708 Temp 97.7 05/12 708 Pulse 62 05/12 0708 Resp 18 05/12 070 8 FiO2 21 05/08 1750 24 hour I O ending at 0700: 05/12 0700 05/11 1900 Intake Total Output Total Balance Number Voids 3 PATIENT WEIGHT: Weight (lb): Weight (oz): Weight (kg): 70.700 Medications:Active Meds + DC'd Last 24 HrsMagnesium Sulfate (MAGNESIUM SULFATE 2GM/SWFI 50ML) 50 ML ONCE ONE IV (DC) Pantoprazole (PROTONIX) 40 MG Q12H PO Atorvastatin Calcium (LIPITOR) 40 MG DAILY@2100 PO Aspirin (ASPIRIN) 81 MG DAILY PO Clopidogrel Bisulfate (Plavix) 75 MG DAILY PO Spironolactone (ALDACTONE) 50 MG DAILY PO Acetaminophen (TYLENOL) 650 MG Q4H PRN PRN PO Acetaminophen/Codeine Phosphate (TYLENOL W CODEINE NO.3) 1 TAB Q6H PRN PRN PO Al Hydrox/Mg Hydrox/Simethicone (MYLANTA) 30 ML Q4H PRN PRN P O Docusate Sodium (COLACE) 100 MG BID PRN PRN PO Hydralazine HCl (APRESOLINE) 10 MG Q6H PRN PRN I V Ondansetron HCl (ZOFRAN) 4 MG Q4H PRN PRN IV Sodium Chloride (SODIUM CHLORIDE 0.9%) 1,000 ML .[id number] IV Sodium Chloride (SODIUM CHLORIDE) 10 ML ASDIR PRN IV Physical ExamGeneral appearance: alert, awakeHEENT: moist mucosal membranesNeck: full range of motionCardiovascular: normal capillary refill, regular rate rhythmRespiratory : aerating well, symmetric expansionAbdomen: non-tenderExtremities: decreased range of motionNeuro/AREA ATTENDANT: alert, oriented X 3Skin: dry, intactPsychiatry: normal affect, normal judgment/insight ResultsFindings/Data:Laboratory Tests 05/12/21519:[Embedded Image Not Available]Laboratory Tests 05/12 520 Chemistry Sodium (134 - [...] 3/uL) 163 MPV (7.0 - 9.0 fL) 10. 8 H Neut % (Auto) (56.0 - 77.0 %) 59.1 Lymph % (Auto) (14.0 - 32.0 %) 23.8 [place] % (Auto) (4.8 - 9.0 %) 8.1 Eos % (Auto) (0.3 - 3.7 %) 7.7 H Baso % (Auto) (0.0 - 2.0 %) 0.9 Neut # (Auto) (2.0 - 7.6 x10 3/uL) 4.76 Lymph # (Auto) (1.0 - 3.8 x10 3/uL) 1.91 [place] # (Auto) (0.1 - 0.8 x10 3/uL) 0.65 Eos # (Auto) (0.0 - 0.2 x10 3/uL) 0.62 H Baso # (Auto) (0.0 - 0.2 x10 3/uL) 0.07 Abs Melissa t Gran (auto) (0.00 - 0.03 x10 3/uL) 0.03 Add Manual Diff NO Immature Gran % (0.0 - 2.0 %) 0.4 Nucleated RBC % (0 - 0 %) 0.0 Nucleated RBCs # (Man) (0.0 - 0.1 x10 3/uL) 0.00 Diagnosis, Assessment PlanFree Text A P:change in bowel habitsdual antiplatelet therapyrecent pcicadrecent egd/colonoscopygastric ulcer - monitor h/h, transfuse as needed- ppi therapy- diet as tolerated- benefits of antiplatelet therapy > risks given recent PCI will monitor from a distance Consultants: gastroenterology Eric Hall 05/12/21 1627:Attestations Physician AttestationAgree w/findings plan:I hav e examined the patient and agree with the findings and plan as documented by Chad FOX Electronicall y Signed by Suleiman Duran on 05/12/21 at 1256 at 1628 RPT #:[id number] OF REPORTPRProgress [id number]:23:00G.[id number] l able for patient [id number]:57:07 2021-05-11 16:04:00 [id number]:04:00 [facility]Hospital[facility] Renetta peguero NoteREPORT#:[id number] REPORT STATUS: SignedDATE:05/11/21 TIME: 1604 PATIENT: MARLA CAMPOS UNIT #: [id number]#: [id number] [address] [birth year] AGE : 75 SEX: F ATTEND: Arun Bishop DOADM AUTHOR: Rj Evans DO * ALL edit s or amendments must be made on the electronic/computer document * SubjectiveComments:Patient seen and examined, at bedside. Denies any new complaints. No bleeding noted overnight. States she is feeling better. No overnight events per RN Objective GeneralVS/I O:Vital Signs: Date Time Temp Pulse Resp B/P B/P Pulse O2 O2 Flow FiO2 Mean Ox Delivery Rate 05/11 1116 [...] Weight (lb): Weight (oz): Weight (kg): 70.700 Medications:Active Meds + DC'd Last 24 HrsMagnesium Sulfate (MAGNESIUM SULFATE 2GM/SWFI 50ML) 50 ML ONCE ONE IV (DC) Pantoprazole (PROTONIX) 40 MG Q12H PO Magnesium Sulfate (MAGNESIUM SULFATE 2GM/SWFI 50ML) 50 ML ONCE ONE IV (DC) Atorvastatin Calcium (LIPITOR) 40 MG DAILY@2100 PO Aspirin (ASPIRIN) 81 MG DAILY PO Clopidogrel Bisulfate (Plavix) 75 MG DAILY PO Spironolactone (ALDACTONE) 50 MG DAILY PO Acetaminophen (TYLENOL) 650 MG Q4H PRN PRN PO Acetaminophen/Codeine Phosphate (TYLENOL W CODEINE NO.3) 1 TAB Q6H PRN PRN PO Al Hydrox/Mg Hydrox/Simethicone (MYLANTA) 30 ML Q4H PRN PRN P O Docusate Sodium (COLACE) 100 MG BID PRN PRN PO Hydralazine HCl (APRESOLINE) 10 MG Q6H PRN PRN I V Ondansetron HCl (ZOFRAN) 4 MG Q4H PRN PRN IV Sodium Chloride (SODIUM CHLORIDE 0.9%) 1,000 ML .[id number] IV Sodium Chloride (SODIUM CHLORIDE) 10 ML ASDIR PRN IV Free Text Obj NotesFree Text Obj Notes:General appearance: alert, awake, orientedHead/Eyes: atraumatic, normocephalicENT: moist mucosal membranes, normal pharynxNeck: non-tender, supple/no meningismus, no JVDCardiovascular: normal capillary refill, normal heart sounds, regular rate rhythmRespiratory: aerating well, clear to auscultation, symmetric expansionAbdomen: non-tender, normal bowel sounds, soft, no distentionExtremities: no clubbing, no cyanosis, no edemaNeuro/AREA ATTENDANT: alert, oriented X 3, CNII-XII intactSkin: dry, intactPsychiatry: normal affect , normal judgment/insight Diagnosis, Assessment PlanProblem List/A P: 1. Upper GI bleed Likely due to gastric ulcer in the setting of aspirin and Plavix Continue PPI per gastroenterology GI seen, s/p EGD. Given recent stent placement, benefits outweigh risk of ongoing dual antiplatelet therapy 2. CAD (coronary artery disease) Patient just had stents placed on 05/05/2021, will need to continue aspirin andPlavix at this time Continue Lipitor 40 mg at bedtime Patient had the stents placed in [place] Seen and discussed case with cardiology, continue to monitor patient on dual platelet therapy for few more days 3. Hypotension Transient hypotension has remain resolved, possibly secondary to hypovolemia and anesthesia , will continue to monitor, H H remained stable 4. Gastric ulcer Continue PPI per gastroenterology. Benefits of antiplatelet therapy outweigh risk given recent PCI 5. Hypomagnesemia Replacement ordered Consultants: gastroenterology Free Text DxA P NotesFree text DxA P notes:SCDs for DVT prophylaxisRegular dietPatient does not have a living will or power of tax associate attorney Quality: Gen Me d Crit Care VTE ProphylaxisVTE prophylaxis initiated: yes Current MedicationsCurrent medication review:I attest that the foregoing medication list in the medical record is true, accurate, and complete to the best of my knowledge. Advanced Care Plan 65 or OlderDiscussed with: patientDiscussion included: living will, power of tax associate attorney, code status at 1609 [facility] #:[id number] OF REPORTPRProgress [id number]:04:00G.[id number] todd able for patient [id number]:09:40 2021-05-11 15:50:00 [id number]:50:00 [facility] ([facility]SONAcute Rehab ConsultREPORT#:[id number] REPORT STATUS: SignedDATE:05/11/21 TIME: 1550 PATIENT: MARLA CAMPOS UNIT #: [id number]#: [id number] ROOM/BED: [facility]-1DOB: [birth year] AGE : 75 SEX: F ATTEND: Arun Bishop DOADM AUTHOR: Modesta Hall PA-C * ALL edits or amendments must be made on the electronic/computer document * History of Presen t Illness HPIReason for consult: evaluation of Rehab needsPCP:PCP: No Primary or Family Physician Requesting clinician: Dr. Hossein ayala diagnosis:DeconditioningHPI:The patient is a 75-year-old female with past medical history significant for coronary artery disease status post stent placement on 05/05/2021, history of CVA, right carotid occlusion, gastric ulcers and hemorrhoids diagnosed from an EGD and colonoscop y on 02/25/2021 presented to the emergency room secondary to black tarry stools. She was recentl y placed on aspirin and Plavix following her stent placement on 05/05/2021. A CT scan of the abdome n pelvis was performed showing no acute CT abnormalities detected. GI was consulted for concern of upper GI bleed. She was found to have an LA grade a reflux esophagitis with no bleeding, tiny hiatal hernia, chronic gastritis with shallow ulcers and normal examined duodenum . There is no noted localized severe inflammation characterizedby shallow ulcerations in the gastric body. GI recommended continuation of PPI . Even her recent stent placements antiplatelet therapy is unable to be discontinued. There was concern related to her overall functional mobility and PM R was requested. Functional StatusOT evaluation:e on one supervision with cueing and assistance provided to ensure proper performance of all activities: Yes ACTIVITIES PERFORMED: Toileting: Yes Feeding: Yes Upper Extremity Dressing: Yes Lower Extremity Dressing : Yes [facility] Activity: No Precautions: Fall Require s verbal cues to direct task: No Positions Used: Sitting in chair Standing with Assist Other FUNCTIONAL BALANCE DURING ACTIVITY: Fair TREATMENT OUTCOMES: Goals Achieved: No Progress demonstrated toward desired goals: No Decreased level of assistance needed: No Patient unable t o tolerate intervention: No Performance limited by : Decrease mobility/balance Decreased Range of Motion Activity tolerance: 10-20 minutes Comments: PLEASE SEE OT INITIAL EVAL NOTES. Document OT charges: SELF/HOME MGT/ADL [id number] Document Pain/Education: No Review OT Plan of Care: No If this is the patient's last treatment , this entry serves as the discharge summary: Y Start Time: 935 Stop Time: 950 Treatment time (minutes): 0:15 Completed by: Amber Patel - GROOMING/HYGIENE: - Toileting: Supervisio n or Set-up Safety awareness demonstrated during completion of task: Yes Requires set up of supplies: No - Self Feeding: Supervision or Set-up Requires set-up of tray: Yes Requires physical assist to feed self: No - Upper Extremity Dressing: Minimal Assistance Increased time required: Yes Requires set up of supplies: Yes Requires physical assist to dress upper extremity: Don Clothing and Adjust Doff Clothin g and Adjust Due to: Decrease mobility/balance Decreased Range of Motion - Lower Extremity Dressing: Dependent Increased time required: Ari peguero Requires set up of supplies: Yes Requires physical assist to dress Lower Extremity: Don Clothing and Adjust Doff Clothing and Adjust Due to: Decrease mobility/balance Decreased Range o f Motion - HistoryPast medical history:Reports: Coronary artery disease. Additional medical history:cad s/p PCI, anemia, hx of ulcersAdditional surgical history:Hysterectomy Breast biopsy Cholecystectomy Knee Sinus surgeryAdditional family history:DeniesAlcohol use: Denies EtOH useDrug use: Denies recreational drugsSmoking status: Smoking status for patients 13 years old or older: Former SmokerAdditional social history:Lives at home with her in a single-story home. No stairs to enter. She is ambulatory with a single-point cane. She no longer drives her assistsher with any assistance at home.Medications:Home Medications:Medication Dose/Rte/Freq Days Qty Entered Last Max Daily Dose Reviewed ATORVASTATI N (LIPITOR) 40 MG PO BEDTIME 05/05/21 05/08/21rength: 40 MG TAB 1106 43 POTASSIUM CHLORIDE ER 2 CAP PO TID 05/05/21 05/08/21 (MICRO-K) 11043Strength: 10 MEQ CAP.SA OMEPRAZOLE ER (PriLOSEC) 40 MG PO BID 05/05/21 05/08/21rength: 40 MG CAP. 11143 ESTROGENS,CONJ 0.5 GM VAGINAL 05/08/21 05/08/21 (PREMARIN 0.625 MG/GM TWICE A WEEK 42 43 VAGINAL)Strength: 0.625 MG/GRAMCREAM 5 ML PO 05/08/21 05/08/21PROMETHAZINE/DEXTROMETHORPHAN (PHENERGAN DM 6.25-15 Q6H PRN PRN COUGH 42 004 4 MG/5ML)Strength: 6.25 MG-15 MG/5ML SYRUP ALBUTEROL 0.63 MG INH 05/08/21 05/08/21 (ALBUTEROL NEB SOLN RTQ6H PRN PRN SOB 0044 0044 0.021%)Strength: 0.63 MG/3 MLVIAL.NEB LEVOCETIRIZINE (XYZAL) 5 MG PO DAILY 05/08/21 05/08/21rength: 5 MG TAB 0045 0045 ASPIRIN EC (ECOTRIN) 81 MG PO DAILY 05/03/21 05/08/21rength: 81 MG TAB.EC 1353 0044[MAGNESIUM GLYCERINAT] 05/03/21 05/08/21rength: 1354 0044 UBIDECARENONE (CO Q-10) 100 MG PO BID 05/03/21 05/08/21rength: 100 MG CAP 1354 0044 DOCUSATE SODIUM 100 MG PO 05/03/21 05/08/21 (COLACE) DAILY PRN 1355 0044Strength: 100 MG CAP CONSTIPATION[PEARLS PROBIOTIC] 05/03/21 05/08/21rength: 1355 0044[VITAMIN D3] 05/03/21 05/08/21rength: 135 6 0044[COSAMIN ASU JOINT ] 05/03/21 05/08/21rength: 1356 0044[MOVE FREE JOINT ] 05/03/21 05/08/21rength: 1357 0044[TUMERIC ] 05/03/21 05/08/21rength: 1357 0044 SPIRONOLACTONE 50 MG PO DAILY 05/05/21 05/08/21 (ALDACTONE) 1108 0044Strength: 50 MG TAB METOLAZONE (ZAROXOLYN) 5 MG PO 05/05/21 05/08/21rength: 5 MG TAB MONDAY,MONDAY 1109 0044 FAMOTIDINE (PEPCID) 20 MG PO BEDTIME 05/05/21 05/08/21rength: 20 MG TAB 1110 0044 CLOPIDOGREL (PLAVIX) 75 MG PO DAILY 90 90 05/05/21 05/08/21rength: 75 MG TAB 1545 0044 Current Hospital Medications:Blood Formation,Coagulation Sig/Nellie Start time Last Medication Dose Route Stop Time Status Admin Clopidogrel Bisulfate 75 MG DAILY 05/08 09 AC 05/11 (Plavix) PO 06/07 0859 0756 Cardiovascular Drugs Sig/Nellie Start time Last Medication Dose Route Stop Time Status Admin Atorvastatin Calciu m 40 MG DAILY@2100 05/08 2100 AC 05/10 (LIPITOR) P O 06/07 Spironolactone 50 MG DAILY 05/08 09 AC 05/11 (ALDACTONE) PO 06/07 0859 0756 Hydralazine HCl 10 MG Q6H PRN PRN 05/07 234 AC (APRESOLINE) IV 06/06 2344 Central Nervous Syste m Agents Sig/Nellie Start time Last Medication Dose Route Stop Time Status Admin Magnesium Sulfate 5 0 ML ONCE ONE 05/11 0845 DC 05/11 [...] 05/07 2345 AC Codeine Phosphate PO 05/12 234 4 (TYLENOL W CODEINE NO.3) Electrolytic, Caloric, And Cody Sig/Nellie Start time Last Medication Dose Route Stop Time Status Admin Sodium Chloride 1,000 ML .[id number] 05/07 2345 AC 05/11 (SODIUM CHLORIDE IV 06/06 234 0440 0.9%) Sodium Chlorid e 10 ML ASDIR PRN 05/07 2030 AC (SODIUM CHLORIDE) IV 06/06 2029 Gastrointestinal Drugs Sig/Nellie Start time Last Medication Dose Route Stop Time Status Admin Pantoprazole 40 MG Q12H 05/10 1800 AC 05/11 (PROTONIX) PO 06/09 1759 0451 Al Hydrox/Mg Hydrox/ 30 ML Q4H PRN PRN 05/07 2345 A C Simethicone PO 06/06 234 (MYLANTA) Docusate Sodium 100 MG BID PRN PRN 05/07 2345 AC (COLACE) PO 06/06 2344 Ondansetron HCl 4 MG Q4H PRN PRN 05/07 2345 AC 05/09 (ZOFRAN) IV 06/06 2344 1145 Allergies:Coded Allergies:Penicillins (Severe, INJECTION SITE SWELLING 05/07/21)[place] And Derivatives (Intermediate, VOMITING 05/07/21)Quinolones (Intermediate, RASH, FACIAL SWELLING 05/07/21)clarithromycin (From BIAXIN) (Intermediate, RASH, SORE TONGUE 05/07/21)clotrimazole (Intermediate, UTI, RASH 05/07/21)fludrocortisone (From FLORINEF) (Intermediate, SEVERE RASH, SWELLING OF EYES 05/07/21)fluticasone furoate (From BREO ELLIPTA) (Intermediate, HARD TO BREATH 05/07/21)rofecoxib (From VIOXX) (Intermediate, EYE AND BODY SWELLIN G 05/07/21)sulfapyridine (Intermediate, EYE LID SWELLING 05/07/21)vilanterol (From BREO ELLIPTA) (Intermediate, HARD TO BREATH 05/07/21)doxycycline (From PERIOSTAT) (Mild, ABDOMINAL PAIN 05/07/21)meperidine (From DEMEROL ) (Mild, VOMITING 05/07/21)pregabalin (From LYRICA ) (Mild, WATERY EYES 05/07/21)iodine (UNKNOWN 05/07/21)Uncoded Allergies:PREICID (Intermediate , ABD PAIN, LIGHT HEADEDNESS, NAUSEA 05/07/21)RALAFEN (Mild, ABDOMINAL PAIN 05/07/21) Review of Symptoms BRITTANYROS comments:10 point review of system reviewed negative except for stated above. No further GI bleeding noted no nausea, vomiting, diarrhea or constipation. Denies any abdominal pain. Denies any significan t residual weakness on one side versus the other, overt blurred vision, headaches, fevers or cough or chills. Objective Physical ExamVS:Last Documented: Result Date Time Pulse Ox 98 05/11 111 B/P 109/63 05/11 111 B/P Mean 78.6 05/11 111 O2 Delivery Room air 05/11 111 Temp 97.7 05/11 111 Pulse 67 05/11 111 Resp 17 05/11 111 6 FiO2 21 05/08 1750 PATIENT WEIGHT: Weight (lb): Weight (oz): Weight (kg): 70.700 General appearance: alert, awakeHEENT: anicteric, mucosa l membranes moist, sclera clearNeck: supple, no JVDCardiovascular: regular rate rhythm, S1/O5Cgzrlqxrezw: aerating well, clear bilaterallyAbdomen: bowel sounds present, non-distended, soft, non-tenderMusculoskeletal - general: Musculoskeletal - general: joints normal, range of motion normal, strength testing normal, no atrophy, no swellingNeuro/AREA ATTENDANT: alert, oriented X 3, normal speech, no motor deficits, no sensory deficits ResultsFindings/Data:Laboratory Tests: 05/11 051 0 Chemistry Sodium (134 - 147 mEq/L) 137 [...] g/dL) 11.3 Hct (33.0 - 45.0 %) 33. 9 MCV (81.0 - 99.0 fL) 97.4 MCH (27.0 - 33.0 pg) 32.5 MCHC (33.0 - 37.0 g/dL) 33.3 RDW (11.5 - 14.5 %) 13.2 Plt Count (150 - 400 x10 3/uL) 140 L MPV (7.0 - 9.0 fL) 10.5 H Neut % (Auto) (56.0 - 77.0 %) 69.7 Lymph % (Auto) (14.0 - 32.0 %) 13.9 L [place] % (Auto) (4.8 - 9.0 %) 8.5 Eos % (Auto) (0.3 - 3.7 %) 7.1 H Baso % (Auto) (0.0 - 2.0 %) 0.5 Neut # (Auto) (2.0 - 7.6 x10 3/uL) 6.56 Lymp h # (Auto) (1.0 - 3.8 x10 3/uL) 1.31 [place] # (Auto) (0.1 - 0.8 x10 3/uL) 0.80 Eos # (Auto) (0.0 - 0. 2 x10 3/uL) 0.67 H Baso # (Auto) (0.0 - 0.2 x10 3/uL) 0.05 Abs Immat Gran (auto) (0.00 - 0.03 x1 0 3/uL) 0.03 Add Manual Diff NO Immature Gran % (0.0 - 2.0 %) 0.3 Nucleated RBC % (0 - 0 %) 0.0 Nucleated RBCs # (Man) (0.0 - 0.1 x10 3/uL) 0.00 Diagnosis, Assessment PlanFree Text A P:The patient is a 75-year-old female with past medica l history significant for coronary artery disease status post stent placement on 05/05/2021, history of CVA, right carotid occlusion, gastric ulcers and hemorrhoids. She was dx with gastric ulcer likely causing the bleeding. Plan: Pt seen sitting in the bedsdie chair. She was seen in bedside chair and states she was seen by therapy and walked around the unit twicw ambulating 400 ft. She states she did use a RW which made her feel more comfortable with, but feels better. I discussed with her and her about different options for rehab. Recommended home health or outpt therapy. She will benefit from a RW for the time being. Due to [Cardiac debility] patient has a mobility limitation that prevents him/her from performing MRADLS in the home such as [Toileting]. The patient requires a walker to safely perform MRADLS in the home and a cane nimco l not resolve the issue. The patients mobility imitations are [endurance ]. at 1601 RPT #:[id number] OF REPORTOMDsaznwyqacrt1876-52-58F31:50:00G.PDOC 2 [id number] for patient kvbhOYQVSCRNHZNHTT3598-95-10B94:01:53 2021-05-11 08:32:00 [id number]:32:00 [facility] ([facility])Cardiology Progress NoteREPORT#:[id number] REPORT STATUS: SignedDATE:05/11/21 TIME: 08 PATIENT: MARLA CAMPOS UNIT #: [id number]#: [id number] [address] AGE : 75 SEX: F ATTEND: Arun Bishop DOADM AUTHOR: Brenda Cali AGACNP * ALL edits or amendments must be made on the electronic/computer document * SubjectivePatient reports:No: complaints. Objective GeneralVS/I O:24 hour I O ending at 0700: 05/11 0700 05/10 1900 Intake Total Output Total Balance Number Voids 3 1 Vital Signs: Date Time Temp Pulse Resp B/P B/P Pulse O2 O2 Flow FiO2 Mean Ox Delivery Rate 05/11 0733 36.5 66 17 114/54 74.0 97 Room air 05/11 0348 36.7 71 13 103/53 69.7 96 Room ai r 05/11 0015 36.6 67 15 114/66 82.0 96 Room air 05/10 1911 36.8 67 15 110/64 79.5 95 Room air 05/10 1537 36.7 67 17 127/69 88.5 96 Room air 05/10 1048 36.7 67 18 103/63 76.6 96 Room air PATIENT WEIGHT: Weight (lb): Weight (oz): Weight (kg): 70.700 Medications:Active Meds + DC'd Last 24 HrsPantoprazole (PROTONIX) 40 MG Q12H PO Magnesium Sulfate (MAGNESIUM SULFATE 2GM/SWFI 50ML) 50 ML ONCE ONE IV (DC) Magnesium Sulfate (MAGNESIUM SULFATE 2GM/SWFI 50ML) 50 ML ONCE ONE IV (DC) Atorvastatin Calcium (LIPITOR) 40 MG DAILY@2100 PO Aspirin (ASPIRIN) 81 MG DAILY PO Clopidogrel Bisulfate (Plavix) 75 MG DAILY PO Spironolactone (ALDACTONE) 50 MG DAILY PO Acetaminophen (TYLENOL) 650 MG Q4H PRN PRN PO Acetaminophen/Codeine Phosphate (TYLENOL W CODEINE NO.3) 1 TAB Q6H PRN PRN PO Al Hydrox/Mg Hydrox/Simethicone (MYLANTA) 30 ML Q4H PRN PRN P O Docusate Sodium (COLACE) 100 MG BID PRN PRN PO Hydralazine HCl (APRESOLINE) 10 MG Q6H PRN PRN I V Ondansetron HCl (ZOFRAN) 4 MG Q4H PRN PRN IV Pantoprazole Sodium (PROTONIX) 80 MG .Q10H IV (DC) Sodium Chloride (SODIUM CHLORIDE 0.9%) 100 MLSodium Chloride (SODIUM CHLORIDE 0.9%) 1,000 M L .[id number] IV Sodium Chloride (SODIUM CHLORIDE) 10 ML ASDIR PRN IV Physical ExamGeneral appearance: alert, awake, oriented, no acute distressNeck: non-tender, no JVDCardiovascular: CV assessment: regular rate and rhythmRespiratory: clear to auscultation, no distressAbdomen: soft, non-tender, normal bowel sounds, no distentionGenitourinary: no foleyLower extremity : LE assessment: no edemaMusculoskeletal: normal inspectionNeuro/AREA ATTENDANT: alert, oriented X 3Psychiatry: normal affect, normal mood ResultsFindings/Data:Laboratory Tests 05/11 051 0 Chemistry Sodium (134 - 147 mEq/L) 137 Potassium (3.4 - 5.0 mEq/L) 3.6 Chloride (100 - 108 mEq/L ) 104 Carbon Dioxide (21 - 33 mEq/l) 23 Anion Gap (0 - 20) 14 BUN (7 - 18 mg/dL) 11 Creatinine (0. 6 - 1.3 mg/dL) 0.9 Glomerular Filtr Rate [...] 33.0 pg) 32.5 MCHC (33.0 - 37.0 g/dL ) 33.3 RDW (11.5 - 14.5 %) 13.2 Plt Count (150 - 400 x10 3/uL) 140 L MPV (7.0 - 9.0 fL) 10.5 H Neut % (Auto) (56.0 - 77.0 %) 69.7 Lymph % (Auto ) (14.0 - 32.0 %) 13.9 L [place] % (Auto) (4.8 - 9.0 %) 8.5 Eos % (Auto) (0.3 - 3.7 %) 7.1 H Baso % (Auto) (0.0 - 2.0 %) 0.5 Neut # (Auto) (2.0 - 7. 6 x10 3/uL) 6.56 Lymph # (Auto) (1.0 - 3.8 x10 3/uL) 1.31 [place] # (Auto) (0.1 - 0.8 x10 3/uL) 0.80 Eos # (Auto) (0.0 - 0.2 x10 3/uL) 0.67 H Baso # (Auto) (0.0 - 0.2 x10 3/uL) 0.05 Abs Melissa t Gran (auto) (0.00 - 0.03 x10 3/uL) 0.03 Add Manual Diff NO Immature Gran % (0.0 - 2.0 %) 0. 3 Nucleated RBC % (0 - 0 %) 0.0 Nucleated RBCs # (Man) (0.0 - 0.1 x10 3/uL) 0.00 Laboratory Tests 05/11 0510 Chemistry Magnesium (1.80 - 2.40 mg/dL) 1.68 L Results: labs reviewed, vital sign s stable, rhythm personally rev'd Diagnosis, Assessment PlanPlan discussed with: patient, spouse/partner Free Text DxA P NotesFree Text Dx A P Notes:Patient is 75 year old woman with recent PCI (05/05/21), on aspirin/plavix, withprior history of GI ulcers. She reports had an EGD/Colonoscopy a few months ago.Cardiology consulted for CAD with GI bleed. CAD05/05/21 [facility] : atherectomy of dwd-kh-sdzqxc RCA, PCI to proximal, hvn-tv-izptch RCA continue ASA 81mg PO daily, Plavix 75mg PO daily, atorvastin 40 mg daily unable to tolerate BB d/t borderline low BPpatient must remain on dual antiplatelet therapy, given recent stent 05/05/20 GI BleedHGB stable 11.3GI following CT Abd: No acute CT abnormalities of the abdomen or pelvis are detected. Rehab consulted but per their assessment patient is too functional to qualify for inpatient rehab. She may benefit from outpatient cardiac rehab. [facility] Will discuss with Dr. Whatley. at 1447Electronically Signed by Edyta Reynolds MD n 05/27/21 at 1151 RPT #:[id number] OF REPORTPRProgress [id number]:32:00G.[id number] todd able for patient veupDVRXLPYDPBQZUQ2971-93-93V07:48:15 2021-05-11 08:25:00 [id number]:25:00 [facility] ([facility])Gastroenterology Progress NoteREPORT#:[id number] REPORT STATUS: SignedDATE:05/11/21 TIME: 824 PATIENT: MARLA CAMPOS UNIT #: [id number]#: [id number] ROOM/BED: [facility]-1DOB: [birth year] AGE : 75 SEX: F ATTEND: Arun Bishop DOADM AUTHOR: Eric Hall MD * ALL edit s or amendments must be made on the electronic/computer document * SubjectiveComments:no overt gi bleeding, hg 11 Review of SystemsAdditional notes:10 point ros neg except hpi Objective GeneralVS/I O:Last Documented: Result Date Time Pulse Ox 97 05/11 733 B/P 114/54 05/11 733 B/P Mean 74.0 05/11 733 O2 Delivery Room air 05/11 733 Temp 36.5 05/11 733 Pulse 66 05/11 733 Resp 17 05/11 733 FiO2 21 05/08 1750 24 hour I O ending at 0700: 05/11 0705/10 1900 Intake Total Output Total Balance Number Voids 3 1 PATIENT WEIGHT: Weight (lb): Weight (oz): Weight (kg): 70.700 Medications:Active Meds + DC'd Last 24 HrsMagnesium Sulfate (MAGNESIUM SULFATE 2GM/SWFI 50ML) 50 ML ONCE ONE IV (DC) Pantoprazole (PROTONIX) 40 MG Q12H PO Magnesium Sulfate (MAGNESIUM SULFATE 2GM/SWFI 50ML) 50 ML ONCE ONE IV (DC) Atorvastatin Calcium (LIPITOR) 40 MG DAILY@2100 PO Aspirin (ASPIRIN) 81 MG DAILY PO Clopidogrel Bisulfate (Plavix) 75 MG DAILY PO Spironolactone (ALDACTONE) 50 MG DAILY PO Acetaminophen (TYLENOL) 650 MG Q4H PRN PRN PO Acetaminophen/Codeine Phosphate (TYLENOL W CODEINE NO.3) 1 TAB Q6H PRN PRN PO Al Hydrox/Mg Hydrox/Simethicone (MYLANTA) 30 ML Q4H PRN PRN P O Docusate Sodium (COLACE) 100 MG BID PRN PRN PO Hydralazine HCl (APRESOLINE) 10 MG Q6H PRN PRN I V Ondansetron HCl (ZOFRAN) 4 MG Q4H PRN PRN IV Pantoprazole Sodium (PROTONIX) 80 MG .Q10H IV (DC) Sodium Chloride (SODIUM CHLORIDE 0.9%) 100 MLSodium Chloride (SODIUM CHLORIDE 0.9%) 1,000 M L .[id number] IV Sodium Chloride (SODIUM CHLORIDE) 10 ML ASDIR PRN IV Physical ExamGeneral appearance: alert, awakeHEENT: abnl conjunctiva/sclera, dry mucosal membranesNeck: decreased range of motionCardiovascular: normal capillary refill, regular rate rhythmRespiratory: aerating well, symmetric expansionAbdomen: non-tenderExtremities: decreased range of motionMusculoskeletal: decreased ROMNeuro/AREA ATTENDANT: alert, oriented X 3Skin: abnormal color, abnorma l temperaturePsychiatry: normal affect, normal judgment/insight ResultsFindings/Data:Laboratory Tests 05/11/21509:[Embedded Image Not Available]Laboratory Tests 05/11 510 Chemistry Sodium (134 - 147 mEq/L) 137 Potassium (3.4 - 5. 0 mEq/L) 3.6 Chloride (100 - 108 mEq/L) 104 Carbo n Dioxide (21 - 33 mEq/l) 23 Anion Gap (0 - 20) 14 BUN (7 - 18 mg/dL) 11 Creatinine (0.6 - 1.3 mg/dL) 0.9 Glomerular Filtr Rate (70 - 80) 61.0 L Glucose (70 - 110 mg/dL) 100 Calcium (8.0 - 10.5 mg/dL) 8.6 Magnesium (1.80 - 2.40 mg/dL) 1.68 L Laboratory Tests 05/11 510 Hematology WBC (4.5 - 11.0 x10 3/uL) 9.4 RBC (3.54 - 5.02 x10 6/uL) 3.48 L Hgb (11.0 - 15.0 g/dL) 11.3 Hct (33.0 - 45.0 %) 33.9 MCV (81.0 - 99.0 fL) 97.4 MCH (27. 0 - 33.0 pg) 32.5 MCHC (33.0 - 37.0 g/dL) 33.3 RD W (11.5 - 14.5 %) 13.2 Plt Count (150 - 400 x10 3/uL) 140 L MPV (7.0 - 9.0 fL) 10.5 H Neut % (Auto) (56.0 - 77.0 %) 69.7 Lymph % (Auto) (14.0 - 32.0 %) 13.9 L [place] % (Auto) (4.8 - 9.0 %) 8.5 Eos % (Auto) (0.3 - 3.7 %) 7.1 H Baso % (Auto) (0.0 - 2.0 %) 0.5 Neut # (Auto) (2.0 - 7.6 x10 3/uL) 6.56 Lymph # (Auto) (1.0 - 3.8 x10 3/uL) 1.31 [place] # (Auto) (0.1 - 0.8 x10 3/uL) 0.80 Eos # (Auto) (0.0 - 0.2 x10 3/uL) 0.67 H Baso # (Auto) (0.0 - 0.2 x10 3/uL) 0.05 Abs Immat Gran (auto) (0.00 - 0.03 x10 3/uL) 0.03 Add Manual Diff NO Immature Gran % (0.0 - 2.0 %) 0.3 Nucleated RBC % (0 - 0 %) 0.0 Nucleated RBCs # (Man) (0.0 - 0.1 x10 3/uL) 0.00 Diagnosis, Assessment PlanFree Text A P:change in bowel habitsdual antiplatelet therapyrecent pcicadrecent egd/colonoscopygastric ulcer - monitor h/h, transfuse as needed- ppi therapy- diet as tolerated- benefits of antiplatelet therapy > risks given recent PCI will monitor from a distance at 1107 RPT #:[id number] OF REPORTPRProgress [id number]:25:00G.[id number] todd able for patient oagjNLUKZBCZHGFHGB7243-52-90L90:07:40 2021-05-10 13:21:00 [id number]:21:00 [facility] ([facility])Hospitalist Renetta peguero NoteREPORT#:[id number] REPORT STATUS: SignedDATE:05/10/21 TIME: 1321 PATIENT: MARLA CAMPOS UNIT #: [id number]#: [id number] ROOM/BED: [facility]DOB: [birth year] AGE : 75 SEX: F ATTEND: Arun Bishop DOADM AUTHOR: Rj Evans DO * ALL edits or amendments must be made on the electronic/computer document * SubjectiveComments:Patient seen and examined, at bedside. Denies any new complaints with improvement of blood pressure. No overt bleeding currently noted. Discussed case with RN as well as cardiology Objective GeneralVS/I O:Vital Signs: Date Time Temp Pulse Resp B/P B/P Pulse O2 O2 Flow FiO2 Mean Ox Delivery Rate 04/17 5 1048 98.1 67 18 103/63 76.6 96 [...] Weight (lb): Weight (oz): Weight (kg): 70.700 Medications:Active Meds + DC'd Last 24 HrsMagnesium Sulfate (MAGNESIUM SULFATE 2GM/SWFI 50ML) 50 ML ONCE ONE IV Magnesium Sulfate (MAGNESIUM SULFATE 2GM/SWFI 50ML) 50 ML ONCE ONE IV (DC) Fentanyl Citrate (SUBLIMAZE) 100 MCG PAC U Q10MIN PRN PRN IV (DC) Fentanyl Citrate (SUBLIMAZE) 50 MCG PACU Q10MIN PRN PRN IV (DC) Hydralazine HCl (APRESOLINE) 2 MG PACU Q10MIN SC N PRN IV (DC) Hydrocodone Bitart/Acetaminophen (NORCO 5/325) 1 TAB PACU ONCE PO (DC) Hydromorphone HCl (DILAUDID) 1 MG PACU Q10MIN SC N PRN IV (DC) Hydromorphone HCl (DILAUDID) 0.5 MG PACU Q5MIN PRN PRN IV (DC) Insulin Human Lispro (HUMALOG) 0 PACU ONCE PRN SUBQ (DC) Labetalol HC l (LABETALOL HCL) 5 MG PACU Q10MIN PRN PRN IV (DC) Lactated Ringer's (LACTATED RINGERS) 1,000 ML .Q24H IV (DC) Meperidine HCl (DEMEROL 50MG/ML) 12.5 MG PACU ONCE PRN IV (DC) Morphine Sulfate (morphine SULFATE) 2 MG PACU Q10MIN PRN PRN IV (DC) Ondansetron HCl (ZOFRAN) 4 MG PACU ONCE PRN IV (DC) Promethazine HCl (PHENERGAN) 25 MG PACU ONCE PRN IM (DC) Ropivacaine (NAROPIN 0.5% 150 MG/30mL) 150 MG ASDIR PRN LOCAL (DC) Tramadol HC l (ULTRAM) 50 MG PACU ONCE PO (DC) Atorvastatin Calcium (LIPITOR) 40 MG DAILY@2100 PO Aspirin (ASPIRIN) 81 MG DAILY PO Clopidogrel Bisulfate (Plavix) 75 MG DAILY PO Spironolactone (ALDACTONE) 50 MG DAILY PO Acetaminophen (TYLENOL) 650 MG Q4H PRN PRN PO Acetaminophen/Codeine Phosphate (TYLENOL W CODEINE NO.3) 1 TAB Q6H PRN PRN PO Al Hydrox/Mg Hydrox/Simethicone (MYLANTA) 30 ML Q4H PRN PRN P O Docusate Sodium (COLACE) 100 MG BID PRN PRN PO Hydralazine HCl (APRESOLINE) 10 MG Q6H PRN PRN I V Ondansetron HCl (ZOFRAN) 4 MG Q4H PRN PRN IV Pantoprazole Sodium (PROTONIX) 80 MG .Q10H IV (CKD) Sodium Chloride (SODIUM CHLORIDE 0.9%) 100 MLSodium Chloride (SODIUM CHLORIDE 0.9%) 1,000 M L .[id number] IV Sodium Chloride (SODIUM CHLORIDE) 10 ML ASDIR PRN IV Free Text Obj NotesFree Text Obj Notes:General appearance: alert, awake, orientedHead/Eyes: atraumatic, normocephalicENT: moist mucosal membranes, normal pharynxNeck: non-tender, supple/no meningismus, no JVDCardiovascular: normal capillary refill, normal heart sounds, regular rate rhythmRespiratory: aerating well, clear to auscultation, symmetric expansionAbdomen: non-tender, normal bowel sounds, soft, no distentionExtremities: no clubbing, no cyanosis, no edemaNeuro/AREA ATTENDANT: alert, oriented X 3, CNII-XII intactSkin: dry, intactPsychiatry: normal affect , normal judgment/insight Diagnosis, Assessment PlanProblem List/A P: 1. Upper GI bleed Likely due to gastric ulcer in the setting of aspirin and Plavix Continue PPI per gastroenterology GI seen, plan for EGD, requesting cardiology clearance/evaluation. Given recent stent placement, benefits outweigh risk of ongoing javid l antiplatelet therapy 2. CAD (coronary artery disease) Patient just had stents placed on 05/05/2021, will need to continue aspirin andPlavix at this time Continue Lipitor 40 mg at bedtime Patient had the stents placed [place] Seen and discussed case with cardiology, continue to monitor patient on dual platelet therapy for few more days 3. Hypotension Transient hypotension has remain resolved, possibly secondary to hypovolemia and anesthesia , will continue to monitor, H H remained stable 4. Gastric ulcer Continue PPI per gastroenterology. Benefits of antiplatelet therapy outweigh risk given recent PCI 5. Hypomagnesemia Replacement ordered Consultants: gastroenterology Free Text DxA P NotesFree text DxA P notes:SCDs for DVT prophylaxisRegular dietPatient does not have a living will or power of tax associate attorney Quality: Gen Me d Crit Care VTE ProphylaxisVTE prophylaxis initiated: yes Current MedicationsCurrent medication review:I attest that the foregoing medication list in the medical record is true, accurate, and complete to the best of my knowledge. Advanced Care Plan 65 or OlderDiscussed with: patientDiscussion included: living will, power of tax associate attorney, code status at 1323 RPT #:[id number] OF REPORTPRProgress [id number]:21:00G.[id number] l able for patient uu[id number]:24:14 2021-05-10 08:57:00 [id number]:57:00 [facility] ([facility]Gastro[facility] Progress NoteREPORT#:[id number] REPORT STATUS: SignedDATE:05/10/21 TIME: 0857 PATIENT: MARLA CAMPOS UNIT #: [id number]#: [id number] [address] [birth year] AGE : 75 SEX: F ATTEND: Arun Bishop DOADM AUTHOR: Eric Hall MD * ALL edit s or amendments must be made on the electronic/computer document * SubjectiveComments: by bedside, no overt gi bleeding overnight Review of SystemsAdditiona l notes:10 point ros neg except hpi Objective GeneralVS/I O:Last Documented: Result Date Time Pulse Ox 96 05/10 758 B/P 104/58 05/10 758 B/ P Mean 72.9 05/10 758 O2 Delivery Room air 05/10 758 Temp 36.7 05/10 758 Pulse 61 05/10 758 Resp 18 05/10 758 FiO2 21 05/08 1750 24 hour I O ending at 0700: 05/10 0700 05/09 1900 Intake Total 10.00 Output Total 800 Balance -800 10.00 Intake, IV 10.00 Output, Urine 800 PATIENT WEIGHT: Weight (lb): Weight (oz): Weight (kg): 70.700 Medications:Active Meds + DC'd Last 24 HrsMagnesium Sulfate (MAGNESIUM SULFATE 2GM/SWFI 50ML) 50 ML ONCE ONE IV Magnesium Sulfate (MAGNESIUM SULFATE 2GM/SWFI 50ML) 50 ML ONCE ONE IV Sodium Chloride (SODIUM CHLORIDE 0.9%) 500 ML BOLUS ONCE ONE IV (DC) Fentanyl Citrate (SUBLIMAZE) 100 MCG PACU Q10MIN PRN PRN IV (DC) Fentanyl Citrate (SUBLIMAZE) 50 MCG PACU Q10MIN PRN PRN IV (DC) Hydralazine HCl (APRESOLINE) 2 M G PACU Q10MIN PRN PRN IV (DC) Hydrocodone Bitart/Acetaminophen (NORCO 5/325) 1 TAB PACU ONCE PO (DC) Hydromorphone HCl (DILAUDID) 1 MG PACU Q10MIN PRN PRN IV (DC) Hydromorphone HCl (DILAUDID) 0.5 MG PACU Q5MIN PRN PRN IV (DC) Insulin Human Lispro (HUMALOG) 0 PACU ONCE PRN SUBQ (DC) Labetalol HCl (LABETALOL HCL) 5 MG PAC U Q10MIN PRN PRN IV (DC) Lactated Ringer's (LACTATED RINGERS) 1,000 ML .Q24H IV (DC) Meperidine HCl (DEMEROL 50MG/ML) 12.5 MG PACU ONCE PRN IV (DC) Morphine Sulfate (morphine SULFATE) 2 MG PACU Q10MIN PRN PRN IV (DC) Ondansetron HCl (ZOFRAN) 4 MG PACU ONCE PRN IV (DC) Promethazine HCl (PHENERGAN) 25 MG PACU ONC E PRN IM (DC) Ropivacaine (NAROPIN 0.5% 150 MG/30mL) 150 MG ASDIR PRN LOCAL (DC) Tramadol HC l (ULTRAM) 50 MG PACU ONCE PO (DC) Magnesium Sulfate (MAGNESIUM SULFATE 2GM/SWFI 50ML) 50 ML ONCE ONE IV (DC) Atorvastatin Calcium (LIPITOR) 40 MG DAILY@2100 PO Aspirin (ASPIRIN) 81 MG RUBA Y PO Clopidogrel Bisulfate (Plavix) 75 MG DAILY PO Spironolactone (ALDACTONE) 50 MG DAILY PO Acetaminophen (TYLENOL) 650 MG Q4H PRN PRN PO Acetaminophen/Codeine Phosphate (TYLENOL W CODEINE NO.3) 1 TAB Q6H PRN PRN PO Al Hydrox/Mg Hydrox/Simethicone (MYLANTA) 30 ML Q4H PRN PRN P O Docusate Sodium (COLACE) 100 MG BID PRN PRN PO Hydralazine HCl (APRESOLINE) 10 MG Q6H PRN PRN I V Ondansetron HCl (ZOFRAN) 4 MG Q4H PRN PRN IV Pantoprazole Sodium (PROTONIX) 80 MG .Q10H IV (CKD) Sodium Chloride (SODIUM CHLORIDE 0.9%) 100 MLSodium Chloride (SODIUM CHLORIDE 0.9%) 1,000 M L .[id number] IV Sodium Chloride (SODIUM CHLORIDE) 10 ML ASDIR PRN IV Physical ExamGeneral appearance: alert, awakeHEENT: abnl conjunctiva/sclera, dry mucosal membranesNeck: decreased range of motionCardiovascular: normal capillary refill, regular rate rhythmRespiratory: aerating well, symmetric expansionAbdomen: non-tenderExtremities: decreased range of motionMusculoskeletal: decreased ROMNeuro/AREA ATTENDANT: alert, oriented X 3Skin: abnormal color, abnorma l temperaturePsychiatry: normal affect, normal judgment/insight ResultsFindings/Data:Laboratory Tests 05/10/21 0510:[Embedded Image Not Available] 05/09/21 1138:[Embedded Image Not Available]Laboratory Tests 05/10 05/09 0510 112 0 Chemistry Sodium (134 - 147 mEq/L) 136 Potassiu m (3.4 - 5.0 mEq/L) 3.8 Chloride (100 - 108 mEq/L) 104 Carbon Dioxide (21 - 33 mEq/l) 25 Anion Gap (0 - 20) 11 BUN (7 - 18 mg/dL) 13 Creatinine (0. 6 - 1.3 mg/dL) 0.9 Glomerular Filtr Rate (70 - 80) 61.0 L Glucose (70 - 110 mg/dL) 90 POC Glucose (70 - 110 MG/DL) 113 H Calcium (8.0 - 10.5 mg/dL ) 8.9 Magnesium (1.80 - 2.40 mg/dL) 1.49 L Laboratory Tests 05/10 05/09 0510 1138 Hematolog y WBC (4.5 - 11.0 x10 3/uL) 10.3 [...] (Auto) (14.0 - 32.0 %) 13.6 L [place] % (Auto) (4.8 - 9.0 %) 7.1 Eos % (Auto) (0.3 - 3.7 %) 4.8 H Baso % (Auto) (0.0 - 2.0 %) 0.2 Neut # (Auto) (2.0 - 7.6 x10 3/uL) 7.60 Lymph # (Auto) (1.0 - 3.8 x10 3/uL) 1.40 [place] # (Auto) (0.1 - 0.8 x10 3/uL) 0.73 Eos # (Auto) (0.0 - 0.2 x10 3/uL) 0.49 H Baso # (Auto) (0.0 - 0.2 x10 3/uL) 0.02 Abs Immat Gran (auto) (0.00 - 0.03 x10 3/uL ) 0.04 H Add Manual Diff NO Immature Gran % (0.0 - 2.0 %) 0.4 Nucleated RBC % (0 - 0 %) 0.0 Nucleated RBCs # (Man) (0.0 - 0.1 x10 3/uL) 0.00 Diagnosis, Assessment PlanFree Text A P:change i n bowel habitsdual antiplatelet therapyrecent pcicadrecent egd/colonoscopygastric ulcer - monitor h/h, transfuse as needed- ppi therapy- diet as tolerated- benefits of antiplatelet therapy > risks given recent PCI at 0947 RPT #:[id number] OF REPORTPRProgress [id number]:57:00G.[id number] l able for patient [id number]:48:00 2021-05-10 08:54:00 [id number]:[id number] [place] [id number] PATIENT NAME: MARLA CAMPOS ADMIT DATE: 05/07/21ACCOUNT NO: [id number] ROOM NO: G.6601 AGE: 75 REPORT TYPE: eECHOCARDIOGRAM REPORT SEX: F ADMITTING PHYSICIAN:Arun Bishop DO ATTENDING PHYSICIAN:Arun Bishop DO *[place] [id number]: Vfa: [phone] Transthoracic Echocardiogram Patient: Candace Campos Date: 05/09/2021 BP : 127 / 81 Location: JESSICA: [id number] : 1945 Age: 75 Height: 65 in / 165.1 cmAession#: [id number] Gender: F Weight: 154.7 lb / 70.3 kgBMI/BSA: 25.8 kg/m 2 / 1.78 m 2 *Ordering Physician: * Rj Evans *Interpreting Physician: * Edyta Reynolds MD*Software Quality Assurance Engineer: * Gia Stinson - Indications: R/o CHF , recent [place] with stents. - Study data: Transthoracic echocardiogram. Procedure: Transthoracicechocardiography was performed. Image quality was adequate. The studywas technically limited due to restricted patient mobility. Theparasternal window was low, thus no M-mode measurements were recorded.Complete 2D, complete spectral Doppler, and color Doppler. Location:Bedside. Patient status: Inpatient. Patient room number: 6601. Studystatus: RG. - Findings Left ventricle: The cavity size is normal. Wall thickness is normal.Systolic function is normal. The estimate d ejection fraction is 60-64%.Wall motion is normal; there are no regional wall motion abnormalities.Left ventricular diastolic functio n parameters are normal for thePATIENT NAME: MARLA CAMPOS patient's age.Right ventricle: The cavity size is normal. Systolic function isnormal. Insufficient tricuspid regurgitation jet to estimate RVSP.Lef t atrium: The atrium is normal in size.Right atrium: The atrium is normal in size.Aorta: Aortic root: The aortic root is normal in size.Aortic valve: Not well visualized. The valv e is trileaflet. Thereis no evidence of stenosis. There is no regurgitation.Mitral valve: The valv e is structurally normal. There is noevidence of stenosis. There is no regurgitation.Tricuspid valve: The valve is structurally normal. There i s noregurgitation.Pulmonic valve: Not well visualized. There is no regurgitation.Pericardium: There is no pericardial effusion.Pulmonary arteries:The main pulmonary artery is normal-sized.Systemic veins:Inferior vena cava: The vessel is normal i n size. The respirophasicdiameter changes are in the normal range (= 50%). - Measurements Left ventricle Value Ref JORGE, LAX [...] tito, 7.6 cm/sec >=10.0 TDI E/e', lat tito , 11 --------- TDI E', med tito, 5.0 cm/sec >=7.0 TDI E/e', med tito, 16 --------- TDI E', avg, TDI 6.3 cm/sec --------- E/e', avg, TDI 13 <=14 PATIENT NAME: MARLA CAMPOS LVOT Value Ref Diam, S 2.02 cm --------- Area 3.2 cm 2 --------- Peak sandy, S 1.34 m/sec --------- Mean sandy, S 0.88 m/sec --------- VTI, S 24.7 cm --------- Peak grad, S 7 mm Hg --------- Mean grad, S 4 mm Hg --------- SV 79 ml --------- Qs 5.98 L/min --------- Qs/bs a 3.4 L/(min-m 2) --------- SV/bsa 44 ml/m 2 --------- Ventricular septum Value Ref IVS, ED 0.7 cm 0.6 - 0.9 Right ventricle Value Ref TAPSE , MM 1.7 cm 1.7 - 3.1 RVOT Value Ref Peak v, S 1.1 3 m/sec --------- Peak grad, S 5 mm Hg --------- Left atrium Value Ref AP dim, ES 3.91 cm 2.70 - 3.80 Vol/bsa, ES, 20 ml/m 2 11 - 40 1-p A4C Vol, ES, 2-p 49 ml --------- Vol/bsa, ES, 28 ml/m 2 1 6 - 34 2-p Vol/bsa, ES, 23 ml/m 2 16 - 34 A/L AP dim, ES MM 3.8 cm 2.7 - 3.8 LA/Ao root 1.34 --------- ratio, MM Right atrium Value Ref Area , ES 10 cm 2 10 - 18 SI dim, ES, A4C 4.1 cm 3.4 - 5.3 SI dim/bsa, ES, 2.3 cm/m 2 1.9 - 3.1 A4C Vol , ES, A/L 22 ml --------- Vol, ES, 1-p 21 ml --------- A4C Vol/bsa, ES, 12 ml/m 2 9 - 33 1-p A4C Aortic valve Value Ref Leaflet sep 3.0 cm --------- Leaflet sep, MM 1.96 cm --------- Peak v, S 1.38 m/sec --------- Mean v, S 0.98 m/sec --------- VTI, S 24.9 cm ---------PATIENT NAME: MARLA CAMPOS Mean grad, S 4.3 mm Hg --------- Peak grad, S 7.6 mm Hg --------- LVOT/AV, VTI 0.99 --------- ratio NOEL, VTI 3.18 cm 2 --------- LVOT/AV, Vpeak 0.97 --------- ratio NOEL, Vmax 3.12 cm 2 --------- Mitral valve Value Ref Peak E 0.06 m/sec --------- Peak A 1.03 m/sec --------- Decel chinedu e 190 ms --------- PHT 43 ms --------- Peak E/A ratio 0.8 --------- MVA, PHT 5.1 cm 2 --------- Pulmonic valve Value Ref SC v, ED 0.76 m/sec --------- Aortic root Value Ref Root diam, ED 2.83 cm --------- MM - Conclusions Summary: Left ventricle: The cavity size is normal. Wall thickness isnormal. Systolic function is normal. The estimated ejection fraction is60-64%. Wall motion is normal; there are no regional wall motionabnormalities. Left ventricular diastolic function parameters are normalfor the patient's age. Prepared and electronically signed by Edyta Reynolds MD05/10/2021 08:54 Electronicall y Signed by Edyta Reynolds MD on 05/10/21 at 0854 PATIENT NAME: MARLA CAMPOS :[birth year]: 0 0G.[id number] for patient [id number]:55:07 2021-05-10 08:44:00 [id number]:44:00 [facility] ClubCardiology Progress NoteREPORT#:[id number] REPORT STATUS: SignedDATE:05/10/21 TIME: 08 PATIENT: MARLA CAMPOS UNIT #: [id number]#: [id number] [address] [birth year] AGE: 75 SEX: F ATTEND: Arun Bishop DOADM AUTHOR: Edyta Reynolds MD * ALL edits or amendments must be made on the electronic/computer document * Objective GeneralVS/I O:24 hour I O ending at 0700: 05/10 0700 05/09 1900 Intake Total 10.00 Output Total 800 Balance -800 10.00 Intake, IV 10.00 Output, Urine 800 Vital Signs: Date Time Temp Pulse Resp B/P B/P Pulse O2 O2 Flow FiO2 Mean Ox Delivery Rate 05/10 0758 98.1 61 18 104/58 72.9 96 Room air 05/09 2306 98.2 75 15 107/64 78.1 93 Room ai r 05/09 1855 98.2 62 14 110/67 81.5 93 Room air 05/09 1542 97.9 71 16 113/69 83.6 96 Room air 05/09 1215 83 127/81 96.2 05/09 1148 70 120/65 83.5 05/09 1116 97.9 59 16 74/40 51.2 93 Room ai r 05/09 0955 90 18 139/67 97 05/09 0950 91 24 138/65 96 05/09 0945 93 21 135/64 96 05/09 0940 98 20 146/63 96 05/09 0935 102 25 127/71 96 10/ 4 0930 97.6 103 23 115/55 100 Room air 05/09 0919 97 18 143/68 97 Room air PATIENT WEIGHT: Weight (lb): Weight (oz): Weight (kg): 70.700 Medications:Active Meds + DC'd Last 24 HrsSodium Chloride (SODIUM CHLORIDE 0.9%) 500 ML BOLUS ONC E ONE IV (DC) Lidocaine HCl (XYLOCAINE) 0 .STK-MED ONE .ROUTE (DC) Propofol (DIPRIVAN 200MG/20ML INJECTION) 20 ML .STK-MED ONE IV (DC) Fentanyl Citrate (SUBLIMAZE) 100 MCG PACU Q10MIN PRN PRN IV (DC) Fentanyl Citrate (SUBLIMAZE) 50 MCG PACU Q10MIN PRN PRN IV (DC) Hydralazine HCl (APRESOLINE) 2 MG PACU Q10MIN PRN PRN IV (DC) Hydrocodone Bitart/Acetaminophen (NORCO 5/325) 1 TAB PACU ONCE PO (DC) Hydromorphone HCl (DILAUDID) 1 MG PACU Q10MIN PRN PRN IV (DC) Hydromorphone HCl (DILAUDID) 0.5 MG PACU Q5MIN PRN PRN IV (DC) Insulin Human Lispro (HUMALOG) 0 PACU ONCE PRN SUBQ (DC) Labetalol HCl (LABETALOL HCL) 5 MG PACU Q10MIN PRN PRN IV (DC) Lactated Ringer's (LACTATED RINGERS) 1,000 ML .Q24H IV (DC) Meperidine HCl (DEMEROL 50MG/ML) 12.5 MG PACU ONCE PRN IV (DC) Morphine Sulfate (morphine SULFATE) 2 MG PACU Q10MIN PRN PRN IV (DC) Ondansetron HCl (ZOFRAN) 4 MG PACU ONCE PRN IV (DC) Promethazine HCl (PHENERGAN) 25 MG PACU ONC E PRN IM (DC) Ropivacaine (NAROPIN 0.5% 150 MG/30mL) 150 MG ASDIR PRN LOCAL (DC) Tramadol HC l (ULTRAM) 50 MG PACU ONCE PO (DC) Magnesium Sulfate (MAGNESIUM SULFATE 2GM/SWFI 50ML) 50 ML ONCE ONE IV (DC) Atorvastatin Calcium (LIPITOR) 40 MG DAILY@2100 PO Aspirin (ASPIRIN) 81 MG DAILY PO Clopidogrel Bisulfate (Plavix) 75 MG DAILY PO Spironolactone (ALDACTONE) 50 MG DAILY PO Acetaminophen (TYLENOL) 650 MG Q4H PRN PRN PO Acetaminophen/Codeine Phosphate (TYLENOL W CODEINE NO.3) 1 TAB Q6H PRN PRN PO Al Hydrox/Mg Hydrox/Simethicone (MYLANTA) 30 ML Q4H PRN PRN P O Docusate Sodium (COLACE) 100 MG BID PRN PRN PO Hydralazine HCl (APRESOLINE) 10 MG Q6H PRN PRN I V Ondansetron HCl (ZOFRAN) 4 MG Q4H PRN PRN IV Pantoprazole Sodium (PROTONIX) 80 MG .Q10H IV (CKD) Sodium Chloride (SODIUM CHLORIDE 0.9%) 100 MLSodium Chloride (SODIUM CHLORIDE 0.9%) 1,000 M L .[id number] IV Sodium Chloride (SODIUM CHLORIDE) 10 ML ASDIR PRN IV ResultsFindings/Data:Laboratory Tests 05/10 05/09 0510 1120 Chemistry Sodium (134 - 147 mEq/L) 136 Potassium (3.4 - 5.0 mEq/L ) 3.8 Chloride (100 - 108 mEq/L) 104 Carbon Dioxid e (21 - 33 mEq/l) 25 Anion Gap (0 - 20) 11 BUN (7 - 18 mg/dL) 13 Creatinine (0.6 - 1.3 mg/dL) 0.9 Glomerular Filtr Rate (70 - 80) 61.0 L Glucose (70 - 110 mg/dL) 90 POC Glucose (70 - 110 MG/DL) 113 H Calcium (8.0 - 10.5 mg/dL) 8.9 Magnesium (1.80 - 2.40 mg/dL) 1.49 L Laboratory Tests 04/17 5 05/09 0510 1138 Hematology WBC (4.5 - [...] (Auto) (14.0 - 32.0 %) 13.6 L [place] % (Auto) (4.8 - 9.0 %) 7.1 Eos % (Auto) (0.3 - 3.7 %) 4.8 H Baso % (Auto) (0.0 - 2.0 %) 0.2 Neut # (Auto) (2.0 - 7.6 x10 3/uL) 7.60 Lymph # (Auto) (1.0 - 3.8 x10 3/uL) 1.40 [place] # (Auto) (0.1 - 0.8 x10 3/uL) 0.73 Eos # (Auto) (0.0 - 0.2 x10 3/uL) 0.49 H Baso # (Auto) (0.0 - 0.2 x10 3/uL) 0.02 Abs Immat Gran (auto) (0.00 - 0.03 x10 3/uL) 0.04 H Add Manual Diff NO Immature Gran % (0.0 - 2.0 %) 0.4 Nucleated RBC % (0 - 0 %) 0.0 Nucleated RBCs # (Man) (0.0 - 0.1 x10 3/uL) 0.00 Laboratory Tests 05/10 0510 Chemistry Magnesium (1.80 - 2.40 mg/dL) 1.49 L Diagnosis, Assessment Plan Free Text DxA P NotesFree Text DxA P Notes:Patient is 75 year old woman with recent PCI (05/05/21), on aspirin/plavix, withprior history of GI ulcers. She reports had an EGD/Colonoscopy a few months ago.Cardiology consulted for CAD with GI bleed. CAD- - 05/05/21 LHC: atherectomy of pcg-zk-mpetv l RCA, PCI to proximal, vxb-dq-yeiyen RCA - cont ASA 81mg PO daily - cont Plavix 75mg PO daily- cont statin daily - patient must remain on dual antiplatelet therapy, given recent stent 0 GI Bleed- HGB stable- GI following - CT Abd: No acute CT abnormalities of the abdomen or pelvis are detected. at 1151 RPT #:[id number] OF REPORTPRProgress [id number]:44:00G.[id number] todd able for patient [id number]:51:36 2021-05-09 14:04:00 [id number] [facility] ClubHospitalist Renetta peguero NoteREPORT#:[id number] REPORT STATUS: SignedDATE:05/09/21 TIME: 1404 PATIENT: MARLA CAMPOS UNIT #: [id number]#: [id number] ROOM[facility]BED: [facility]DOB: [birth year] AGE : 75 SEX: F ATTEND: Arun Bishop DOADM AUTHOR: Rj Evans DO * ALL edits or amendments must be made on the electronic/computer document * SubjectiveComments:Patient seen and examined after EGD. Called by RN post EGD that the patien t wasfeeling nauseous and blood pressure was low i n the 70s over 40s. Objective GeneralVS/I O:Vital Signs: Date Time Temp Pulse Resp B/P B/P Pulse O 2 O2 Flow FiO2 Mean Ox Delivery Rate 05/09 1215 [...] Room air 05/09 0919 97 18 143/68 9 7 Room air 05/09 0709 98.4 54 16 [...] 1900 Intake Total Output Total 1100 Balance -110 0 Number 1 Bowel Movements Output, Urine 1100 PATIENT WEIGHT: Weight (lb): Weight (oz): Weight (kg): 70.700 Medications:Active Meds + DC'd Last 24 HrsSodium Chloride (SODIUM CHLORIDE 0.9%) 500 ML BOLUS ONCE ONE IV (DC) Lidocaine HCl (XYLOCAINE) 0 .STK-MED ONE .ROUTE (DC) Propofol (DIPRIVAN 200MG/20ML INJECTION) 20 ML .STK-MED ONE IV (DC) Fentanyl Citrate (SUBLIMAZE) 100 MCG PACU Q10MIN PRN PRN IV Fentanyl Citrate (SUBLIMAZE) 50 MCG PACU Q10MIN PRN PRN IV Hydralazine HCl (APRESOLINE) 2 MG PACU Q10MIN SC N PRN IV Hydrocodone Bitart/Acetaminophen (NORCO 5/325) 1 TAB PACU ONCE PO (CKD) Hydromorphone HC l (DILAUDID) 1 MG PACU Q10MIN PRN PRN IV Hydromorphone HCl (DILAUDID) 0.5 MG PACU Q5MIN PRN PRN IV Insulin Human Lispro (HUMALOG) 0 PACU ONCE PRN SUBQ Labetalol HCl (LABETALOL HCL) 5 MG PACU Q10MIN PRN PRN IV Lactated Ringer's (LACTATED RINGERS) 1,000 ML .Q24H IV Meperidine HCl (DEMEROL 50MG/ML) 12.5 MG PACU ONCE PRN IV Morphine Sulfate (morphine SULFATE) 2 MG PACU Q10MIN PRN PRN IV Ondansetron HCl (ZOFRAN) 4 MG PACU ONCE PRN IV Promethazine HCl (PHENERGAN) 25 MG PACU ONCE PRN IM Ropivacaine (NAROPIN 0.5% 15 0 MG/30mL) 150 MG ASDIR PRN LOCAL Tramadol HCl (ULTRAM) 50 MG PACU ONCE PO (CKD) Magnesium Sulfate (MAGNESIUM SULFATE 2GM/SWFI 50ML) 50 ML ONCE ONE IV (DC) Atorvastatin Calcium (LIPITOR) 40 MG DAILY@2100 PO Pantoprazole Sodium (PROTONIX) 80 MG Q10H IV (DC) Sodium Chloride (SODIUM CHLORIDE 0.9%) 100 MLAspirin (ASPIRIN) 8 1 MG DAILY PO Clopidogrel Bisulfate (Plavix) 75 MG DAILY PO Spironolactone (ALDACTONE) 50 MG DAILY PO Acetaminophen (TYLENOL) 650 MG Q4H PRN PRN P O Acetaminophen/Codeine Phosphate (TYLENOL W CODEINE NO.3) 1 TAB Q6H PRN PRN PO Al Hydrox/Mg Hydrox/Simethicone (MYLANTA) 30 ML Q4H PRN PRN P O Docusate Sodium (COLACE) 100 MG BID PRN PRN PO Hydralazine HCl (APRESOLINE) 10 MG Q6H PRN PRN I V Ondansetron HCl (ZOFRAN) 4 MG Q4H PRN PRN IV Pantoprazole Sodium (PROTONIX) 80 MG .Q10H IV (CKD) Sodium Chloride (SODIUM CHLORIDE 0.9%) 100 MLSodium Chloride (SODIUM CHLORIDE 0.9%) 1,000 M L .[id number] IV Sodium Chloride (SODIUM CHLORIDE) 1 0 ML ASDIR PRN IV Sodium Chloride (SODIUM CHLORIDE ) 0 ASDIR PRN IV (DC) Free Text Obj NotesFree Text Obj Notes:General appearance: alert, awake, orientedHead/Eyes: atraumatic, normocephalicENT: moist mucosal membranes, normal pharynxNeck: non-tender, supple/no meningismus, no JVDCardiovascular: normal capillary refill, normal heart sounds, regular rate rhythmRespiratory: aerating well, clear to auscultation, symmetric expansionAbdomen: non-tender, normal bowel sounds, soft, no distentionExtremities: no clubbing, no cyanosis, no edemaNeuro/AREA ATTENDANT: alert, oriented X 3, CNII-XII intactSkin: dry, intactPsychiatry: normal affect , normal judgment/insight Diagnosis, Assessment PlanProblem List/A P: 1. Upper GI bleed Likely due to gastric ulcer in the setting of aspirin and Plavix Continue PPI per gastroenterology GI seen, plan for EGD, requesting cardiology clearance/evaluation. Given recent stent placement, benefits outweigh risk of ongoing javid l antiplatelet therapy 2. CAD (coronary artery disease) Patient just had stents placed on 05/05/2021, will need to continue aspirin andPlavix at this time Continue Lipitor 40 mg at bedtime Patient had the stents placed in [place] Await cardiology evaluation 3. Hypotension Patient with transient hypotension post EGD, immediately came to evaluate the patient and started normal saline bolus with subsequent improvement of hemodynamics. Patient denies any symptom aside from nausea which has since resolved. Denies any chest pain, chest pressure, shortness of breath, palpitations. Denies feel lightheaded or dizzy. No active bleeding appreciated. Stat H H was drawn with an actual improvement of hemoglobin to 12.9 from 12.6 earlier this morning. Magnesium already being replaced. We willcontinue to monitor on telemetry with cardiology consulted and following. Suspect transient hypotension possibl y from hypovolemia given n.p.o. prior to procedure as well as anesthesia. If symptoms recur or worsen, discussed with RNneed to transfer the patient to higher level of care. We will continu e to monitor for now. Patient denies any prior history of heart failure despite recent stent placement however will check echocardiogram for completeness 4. Gastric ulcer Continue PPI per gastroenterology. Benefits of antiplatelet therapy outweigh risk given recent PCI Consultants: gastroenterology Free Text DxA P NotesFree text DxA P notes:SCDs for DVT prophylaxisClear liquid dietPatient does not hav e a living will or power of tax associate attorney Quality: Gen Med Crit Care VTE ProphylaxisVTE prophylaxis initiated: yes Current MedicationsCurrent medication review:I attest that the foregoing medication list in the medical record is true, accurate, and complete to the best of my knowledge. Advanced Care Plan 65 or OlderDiscussed with: patientDiscussion included: living will, power of tax associate attorney, code status at 1411 RPT #:[id number] OF REPORTPRProgress [id number]:04:00G.[id number] todd able for patient kmmvUNTFKPQUQNIQXW1068-91-18V88:12:30 2021-05-09 10:19:00 [id number]:19:00 [facility] ([facility]Gastroenterology Progress NoteREPORT#:[id number] REPORT STATUS: SignedDATE:05/09/21 TIME: 1019 PATIENT: MARLA CAMPOS UNIT #: [id number]#: [id number] [address] [birth year] AGE : 75 SEX: F ATTEND: Arun Bishop DOADM AUTHOR: Eric Hall MD * ALL edit s or amendments must be made on the electronic/computer document * SubjectiveComments:s/p EGD: gastric ulcer Review of SystemsAdditional notes:10 point ros neg except hpi Objective GeneralVS/I O:Last Documented: Result Date Time B/P 127/81 05/09 1215 B/P Mean 96.2 05/09 1215 Pulse 83 05/09 121 5 Pulse Ox 93 05/09 111 O2 Delivery Room air 05/09 111 Temp 36.6 05/09 1116 Resp 16 05/09 1116 FiO2 21 05/08 1750 24 hour I O ending at 0700: 05/09 0700 05/08 1900 Intake Total Output Total 1100 Balance -1100 Number 1 Bowel Movement s Output, Urine 1100 PATIENT WEIGHT: Weight (lb): Weight (oz): Weight (kg): 70.700 Medications:Active Meds + DC'd Last 24 HrsSodium Chloride (SODIUM CHLORIDE 0.9%) 500 ML BOLUS ONC E ONE IV (DC) Lidocaine HCl (XYLOCAINE) 0 .STK-MED ONE .ROUTE (DC) Propofol (DIPRIVAN 200MG/20ML INJECTION) 20 ML .STK-MED ONE IV (DC) Fentanyl Citrate (SUBLIMAZE) 100 MCG PACU Q10MIN PRN PRN IV Fentanyl Citrate (SUBLIMAZE) 50 MCG PACU Q10MIN PRN PRN IV Hydralazine HCl (APRESOLINE) 2 MG PACU Q10MIN PRN PRN IV Hydrocodone Bitart/Acetaminophen (NORCO 5/325) 1 TAB PACU ONCE PO (CKD) Hydromorphone HCl (DILAUDID) 1 MG PACU Q10MIN PRN PRN IV Hydromorphone HCl (DILAUDID) 0.5 MG PACU Q5MIN PRN PRN IV Insulin Human Lispro (HUMALOG) 0 PACU ONCE PRN SUBQ Labetalol HCl (LABETALOL HCL) 5 MG PACU Q10MIN PRN PRN IV Lactated Ringer's (LACTATED RINGERS) 1,000 ML .Q24H IV Meperidine HCl (DEMEROL 50MG/ML) 12.5 MG PACU ONCE PRN IV Morphine Sulfate (morphine SULFATE) 2 MG PACU Q10MIN PRN PRN IV Ondansetron HCl (ZOFRAN) 4 MG PACU ONCE PRN IV Promethazine HCl (PHENERGAN) 25 MG PACU ONCE PRN IM Ropivacaine (NAROPIN 0.5% 150 MG/30mL) 150 MG ASDIR PRN LOCAL Tramadol HCl (ULTRAM) 50 MG PACU ONCE PO (CKD) Magnesium Sulfate (MAGNESIUM SULFATE 2GM/SWFI 50ML) 50 ML ONCE ONE IV (DC) Atorvastatin Calcium (LIPITOR) 40 MG DAILY@2100 PO Pantoprazole Sodium (PROTONIX) 80 MG Q10H IV (DC) Sodium Chloride (SODIUM CHLORIDE 0.9%) 100 MLAspirin (ASPIRIN) 8 1 MG DAILY PO Clopidogrel Bisulfate (Plavix) 75 MG DAILY PO Spironolactone (ALDACTONE) 50 MG DAILY PO Acetaminophen (TYLENOL) 650 MG Q4H PRN PRN PO Acetaminophen/Codeine Phosphate (TYLENOL W CODEINE NO.3) 1 TAB Q6H PRN PRN PO Al Hydrox/Mg Hydrox/Simethicone (MYLANTA) 30 ML Q4H PRN PRN P O Docusate Sodium (COLACE) 100 MG BID PRN PRN PO Hydralazine HCl (APRESOLINE) 10 MG Q6H PRN PRN I V Ondansetron HCl (ZOFRAN) 4 MG Q4H PRN PRN IV Pantoprazole Sodium (PROTONIX) 80 MG .Q10H IV (CKD) Sodium Chloride (SODIUM CHLORIDE 0.9%) 100 MLSodium Chloride (SODIUM CHLORIDE 0.9%) 1,000 M L .[id number] IV Sodium Chloride (SODIUM CHLORIDE) 10 ML ASDIR PRN IV Sodium Chloride (SODIUM CHLORIDE ) 0 ASDIR PRN IV (DC) Physical ExamGeneral appearance: alert, awakeHEENT: abnl conjunctiva/sclera, dry mucosal membranesNeck: decreased range of motionCardiovascular: normal capillary refill, regular rate rhythmRespiratory : aerating well, symmetric expansionAbdomen: non-tenderExtremities: decreased range of motionMusculoskeletal: decreased ROMNeuro/AREA ATTENDANT: alert, oriented X 3Skin: abnormal color, abnorma l temperaturePsychiatry: normal affect, normal judgment/insight ResultsFindings/Data:Laboratory Tests 05/09/21 1138:[Embedded Image Not Available] 05/09/21 0500:[Embedded Image Not Available]Laboratory Tests 05/09 05/09 1120 0500 Chemistry Sodium (134 - 147 mEq/L) 136 Potassiu m (3.4 - 5.0 mEq/L) 3.4 Chloride (100 - 108 mEq/L) 101 Carbon Dioxide (21 - 33 mEq/l) 28 Anion Gap (0 - 20) 11 BUN (7 - 18 mg/dL) 9 Creatinine (0.6 - 1.3 mg/dL) 0.9 Glomerular Filtr Rate (70 - 80) 61.0 L Glucose (70 - 110 mg/dL) 89 POC Glucose (70 - 110 MG/DL) 113 H Calcium (8.0 - 10.5 mg/dL ) 9.3 Magnesium (1.80 - 2.40 mg/dL) 1.44 [...] % (Auto) (14.0 - 32.0 %) 17.2 [place] % (Auto) (4.8 - 9.0 %) 6.7 Eos % (Auto) (0. 3 - 3.7 %) 5.0 H Baso % (Auto) (0.0 - 2.0 %) 0.5 Neut # (Auto) (2.0 - 7.6 x10 3/uL) 6.22 Lymph # (Auto) (1.0 - 3.8 x10 3/uL) 1.52 [place] # (Auto) (0.1 - 0.8 x10 3/uL) 0.59 Eos # (Auto) (0.0 - 0.2 x10 3/uL) 0.44 H Baso # (Auto) (0.0 - 0.2 x1 0 3/uL) 0.04 Abs Immat Gran (auto) (0.00 - 0.03 x1 0 3/uL) 0.03 Add Manual Diff NO Immature Gran % (0.0 - 2.0 %) 0.3 Nucleated RBC % (0 - 0 %) 0.0 Nucleated RBCs # (Man) (0.0 - 0.1 x10 3/uL) 0.00 Laboratory Tests 05/08 184 Serology SARS-CoV-2 Ag (Rapid) (Negative) Negative Diagnosis, Assessment PlanFree Text A P:change in bowel habitsdual antiplatelet therapyrecent pcicadrecent egd/colonoscopygastric ulcer - monitor h/h, transfuse as needed- ppi therapy- diet as tolerated- benefits of antiplatelet therapy > risks given recent PCI at 1314 RPT #:[id number] OF REPORTPRProgress [id number]:19:00G.[id number] l able for patient [id number]:14:46 2021-05-09 08:59:00 [id number]:59:[id number] [place] [address] PATIENT NAME: MARLA CAMPOS ADMIT DATE: 05/07/21ACCOUNT NO: [id number] ROOM NO: G.6601 AGE: 75 REPORT TYPE: ENDOSCOPY REPORT SEX: F ADMITTING PHYSICIAN:Arun Bishop DO ATTENDING PHYSICIAN:Arun Bishop DO Gastroenterology _ Pa t ient Name: Marla Campos Procedure Date: 05/09/2021 8:59 AMMRN: [id number] of : 1945 _ Procedure: Upper GI endoscopyIndications: Epigastric abdominal pain, MelenaProviders: Norm Sahu MD: Requesting Provider: Medicines: Monitored Anesthesia CareProcedure: Pre-Anesthesia Assessment: - Prior to the procedure, a History and Physical was performed, and patient medications and allergies were reviewed. The patient's tolerance of previous anesthesia was also reviewed. The risks and benefits of the procedure and the sedation options and risks were discussed with the patient. All questions were answered, and informed consent was obtained. Prior Anticoagulants: The patient has taken antiplatelet medication, last dose was day of procedure. ASA Grade Assessment: III - A patient with severe systemic disease. After reviewing th e risks and benefits, the patient was deemed in satisfactory condition to undergo the procedure. After obtaining informed consent, the endoscope was passed under direct vision. Throughout the procedure, the patient's blood pressure, pulse, and oxygen saturations were monitored continuously. The Endoscope was introduced through the mouth, and advanced to the second part of duodenum. The upper GI endoscopy was accomplished without difficulty. The patient tolerated the procedure well. Findings: LA Grade A (one or more mucosal breaks less than 5 mm, no t extending between tops of 2 mucosal folds) esophagitis with no bleeding was found. A small hiatal hernia was present. Localized severe inflammation characterized by shallow ulceration s was found in the gastric body. The examined duodenum was normal. PATIENT NAME: MARLA CAMPOS Complications: No immediate complications. _ Esti m ated Blood Loss: Estimated blood loss: none.Impression: - LA Grade A reflux esophagitis with no bleeding. - Tiny hiatal hernia. - Chroni c gastritis with shallow ulcers. - Normal examined duodenum. - No specimens collected.Recommendation: - Resume previous diet . - Continue present medications. - Consider benefits and risks of single antiplatelet therap y vs. dual antiplatelet therapy in view of resolving gi bleeding and recent PCI. Procedure Code(s): --- Professional --- 07478, Esophagogastroduodenoscopy, flexible, transoral; diagnostic, including collection of specimen(s) by brushing or washing, when performed (separat e procedure)Diagnosis Code(s): --- Professional -- - K21.00, Gastro-esophageal reflux disease with esophagitis, without bleeding K44.9, Diaphragmatic hernia without obstruction or gangrene K29.50, Unspecified chronic gastritis without bleeding R10.13, Epigastric pain K92.1, Melena (includes Hematochezia) CPT copyright 202 0 [employer]. All rights reserved. The codes documented in this report ar e preliminary and upon associate loan officer review may be revised to meet current compliance requirements. Eric Hall MD Eric Hall MD05/09/2021 9:34:32 AMThis report has been signed electronically.Number of Addenda: 0 Note Initiated On: 05/09/2021 8:59 AMProvation {[id number]}.pdf ProVation FT PDF at 0934 PATIENT NAME: MARLA CAMPOS [id number]:34:00G.[id number] a ilable for patient wbrvLIEVNNBVEIHJRF5236-79-28Y38:35:23 2021-05-08 21:17:00 [id number]:17:00 [facility] ([facility])Cardiology ConsultationREPORT#:[id number] REPORT STATUS: SignedDATE:05/08/21 TIME: 2116 PATIENT: MARLA CAMPOS UNIT #: [id number]#: [id number] [address] [birth year] AGE : 75 SEX: F ATTEND: Arun Bishop DOADM AUTHOR: Cami Amos APRN * ALL edits or amendments must be made on the electronic/computer document * Cami Amos 05/08/212116:History of Present Illness HPIReason for consult:CAD with GI bleedChief complaint:GI bleed/dark stools Free Text HPI NotesFree Text HPI Notes:Patient is 75 year old woman with recent PCI (05/05/21), on aspirin/plavix, withprior history of GI ulcers. She reports had an EGD/Colonoscopy a few months ago.She reports dark stools, which led her to come to hospital, associated with dyspesia, located upper abdomen, severity moderate. Nga arenas reports she has taken Plavix for only a couple days. Patient denies any chest pain, SOB, palpitations or edema. Cardiology consulted for CAD with GI bleed. History - Adult longitudinalAdditional medical history:cad s/p PCI, anemia, hx of ulcersAdditional surgical history:Hysterectomy Breast biopsy Cholecystectomy Knee Sinus surgeryAdditional family history:DeniesAlcohol use: Denies EtOH useDrug use: Denies recreational drugsSmoking status: Smoking status for patients 13 years old or older: Former SmokerAllergies:Coded Allergies:Penicillins (Severe, INJECTION SITE SWELLING 05/07/21)[place] And Derivatives (Intermediate, VOMITING 05/07/21)Quinolones (Intermediate, RASH, FACIAL SWELLING 05/07/21)clarithromycin (From BIAXIN) (Intermediate, RASH, SORE TONGUE 05/07/21)clotrimazole (Intermediate, UTI, RASH 05/07/21)fludrocortisone (From FLORINEF) (Intermediate, SEVERE RASH, SWELLING OF EYES 05/07/21)fluticasone furoate (From BREO ELLIPTA) (Intermediate, HARD TO BREATH 05/07/21)rofecoxib (From VIOXX) (Intermediate, EYE AND BODY SWELLIN G 05/07/21)sulfapyridine (Intermediate, EYE LID SWELLING 05/07/21)vilanterol (From BREO ELLIPTA) (Intermediate, HARD TO BREATH 05/07/21)doxycycline (From PERIOSTAT) (Mild, ABDOMINAL PAIN 05/07/21)meperidine (From DEMEROL ) (Mild, VOMITING 05/07/21)pregabalin (From LYRICA ) (Mild, WATERY EYES 05/07/21)iodine (UNKNOWN 05/07/21)Uncoded Allergies:PREICID (Intermediate , ABD PAIN, LIGHT HEADEDNESS, NAUSEA 05/07/21)RALAFEN (Mild, ABDOMINAL PAIN 05/07/21) Review of SystemsRespiratory:Reports: SOB. Cardiovascular:Denies: chest pain, edema, orthopnea. All systems rev neg: except as marked Objective GeneralVS/I O:Vital Signs: Date Time Temp Pulse Resp B/P B/P Pulse O2 O2 Flow FiO2 Mean Ox Delivery Rate 05/08 1919 36.5 73 17 137/77 97.3 94 Room air 05/08 1750 Room air 21 05/08 1514 36.7 68 15 124/64 84.1 95 Room air 05/08 1009 36.5 66 16 129/76 93.9 96 Room air 05/08 0709 36.7 74 14 152/80 103.9 97 Room air 05/08 0302 36.4 79 14 139/65 89.5 98 Nasal cannula 05/08 0028 36.7 74 14 130/76 93.6 95 Missy m air 05/07 2307 73 17 126/99 108 97 Room air 24 hour I O ending at 0700: 05/08 0700 05/07 1900 Intake Total Output Total Balance Patient 70.7 k g Weight Weight Bed scale Measurement Method PATIENT WEIGHT: Weight (lb): Weight (oz): Weight (kg): 70.700 Medications:Active Meds + DC'd Last 24 HrsAtorvastatin Calcium (LIPITOR) 40 MG DAILY@2100 PO Pantoprazole Sodium (PROTONIX) 80 MG Q10H IV (DC) Sodium Chloride (SODIUM CHLORIDE 0.9%) 100 MLAspirin (ASPIRIN) 81 MG DAILY PO Clopidogrel Bisulfate (Plavix) 75 MG DAILY PO Spironolactone (ALDACTONE) 50 MG DAILY PO Acetaminophen (TYLENOL) 650 MG Q4H PRN PRN PO Acetaminophen/Codeine Phosphate (TYLENOL W CODEINE NO.3) 1 TAB Q6H PRN PRN PO Al Hydrox/Mg Hydrox/Simethicone (MYLANTA) 30 ML Q4H PRN PRN P O Docusate Sodium (COLACE) 100 MG BID PRN PRN PO Hydralazine HCl (APRESOLINE) 10 MG Q6H PRN PRN I V Ondansetron HCl (ZOFRAN) 4 MG Q4H PRN PRN IV Pantoprazole Sodium (PROTONIX) 80 MG .Q10H IV (CKD) Sodium Chloride (SODIUM CHLORIDE 0.9%) 100 MLSodium Chloride (SODIUM CHLORIDE 0.9%) 1,000 M L .[id number] IV Dextrose/Sodium Chloride (Dextrose 5 % / 0.9% NaCl) 1,000 ML X1ED STA IV (DC) Sodium Chloride (SODIUM CHLORIDE) 10 ML ASDIR PRN IV Pantoprazole Sodium (PROTONIX) 80 MG X1ED STA IV (DC) Sodium Chloride (SODIUM CHLORIDE 0.9%) 100 MLSodium Chloride (SODIUM CHLORIDE) 0 ASDIR PRN IV (DC) Physical ExamGeneral appearance: alert, awake, oriented, no acute distress, pleasantHead/Eyes: atraumatic, EOMI, normocephalicNeck: full range of motion, non-tender, no JVDCardiovascular: CV assessment: regular rate and rhythm, BP pulses = bilaterally , normal heart soundsRespiratory: clear to auscultation, no distressAbdomen: soft, non-tender, normal bowel soundsUpper extremity: UE assessment: normal capillary refill, normal temperatureLower extremity: LE assessment: delon l capillary refill, normal temperatureMusculoskeletal: full range of motion , straight leg raiseNeuro/AREA ATTENDANT: alert, oriented X 3 , CN II-XII intactSkin: dry, intact, normal colorPsychiatry: normal affect, normal mood ResultsFindings/Data:Laboratory Tests 05/08 04/17 2 0600 2141 Chemistry Sodium (134 - 147 mEq/L) 138 Potassium (3.4 - 5.0 mEq/L) 3.7 Chloride (100 - 108 mEq/L) 105 Carbon Dioxide (21 - 33 mEq/l) 2 5 Anion Gap (0 - 20) 11 BUN (7 - 18 mg/dL) 10 Creatinine (0.6 - 1.3 mg/dL) 0.8 Glomerular Filt r Rate (70 - 80) 69.9 L Glucose (70 - 110 mg/dL) 9 7 Lactic Acid (0.4 - 1.9 mmol/L) 0.6 Calcium (8.0 - 10.5 mg/dL) 9.0 Laboratory Tests 05/08 0010 Coagulation Plt P2Y12 React Units (182 - 335 PRU ) 171 L Laboratory Tests 05/08 05/08 05/08 [...] % (Auto) (14.0 - 32.0 %) 17.9 [place] % (Auto) (4.8 - 9.0 %) 8.4 Eos % (Auto) (0.3 - 3.7 %) 2.8 Baso % (Auto) (0. 0 - 2.0 %) 0.3 Neut # (Auto) (2.0 - 7.6 x10 3/uL) 6.29 Lymph # (Auto) (1.0 - 3.8 x10 3/uL) 1.61 [place] # (Auto) (0.1 - 0.8 x10 3/uL) 0.75 Eos # (Auto) (0.0 - 0.2 x10 3/uL) 0.25 H Baso # (Auto ) (0.0 - 0.2 x10 3/uL) 0.03 Abs Immat Gran (auto) (0.00 - 0.03 x10 3/uL) 0.04 H Add Manual Diff N O Immature Gran % (0.0 - 2.0 %) 0.4 Nucleated RBC % (0 - 0 %) 0.0 Nucleated RBCs # (Man) (0.0 - 0.1 x10 3/uL) 0.00 Laboratory Tests 05/08 1845 Serology SARS-CoV-2 Ag (Rapid) (Negative) Negative Radiology Data:Recent Impressions:CAT SCAN - CT ABD PELVIS W/O CONT 05/08 1537 Report Impression - Status: SIGNED Entered: 05/08/2021 1707 IMPRESSION:1. No acute CT abnormalities of the abdomen or pelvis are detected.SL:131Impression By: Nikki Freedman M.D. Diagnosis, Assessment Plan Free Text DxA P NotesFree Text DxA P Notes:Patient is 75 year old woman with recent PCI (05/05/21), on aspirin/plavix, withprior history of GI ulcers. She reports had an EGD/Colonoscopy a few months ago.Cardiology consulted for CAD with GI bleed. CAD- EKG: ordered- 05/05/21 LHC: atherectomy of tfr-ns-dbhjmt RCA, PCI to proximal, twn-lv-jsklzqSBL - cont ASA 81mg PO daily - cont Plavix 75mg PO daily- cont statin daily - patien t must remain on dual antiplatelet therapy, given recent stent 05/05/20 GI Bleed- HGB stable- GI following - CT Abd: No acute CT abnormalities of the abdomen or pelvis are detected. Ari diaz r to Patient case and plan of care discussed with supervising physician, , who agrees with plan of care. Mayco Montes De Oca 07/15/21 1210:Diagnosis, Assessment Plan Free Text DxA P NotesFree Text DxA P Notes:Patient seen and examined. Labs and imaging reviewed. I agree with the assessment an d plan as documented by chyna PLACEMENT MANAGER. Patient is 75 year old woman with recent PCI (05/05/21), on aspirin/plavix, withprior history of GI ulcers. She reports had an EGD/Colonoscopy a few months ago.Cardiology consulted for CAD with GI bleed. CAD- EKG: ordered- 05/05/21 LHC: atherectomy of cni-yu-axnuxn RCA, PCI to proximal, lfi-uq-hqwtgnISE - cont ASA 81mg PO daily - cont Plavix 75mg PO daily- cont statin daily - patien t must remain on dual antiplatelet therapy, given recent stent 05/05/20 at 1312 at 1218 RPT #:[id number] OF REPORTCSDmbqhprbcedj3202-09-94K06:17:00G.PDOC 2 [id number] for patient [id number]:13:05 2021-05-08 16:06:00 [id number]:06:00 [facility] ([facility]SONHospitalist Renetta peguero NoteREPORT#:[id number] REPORT STATUS: SignedDATE:05/08/21 TIME: 1606 PATIENT: MARLA CAMPOS UNIT #: [id number]#: [id number] ROOM/BED: 6601-1DOB: [birth year] AGE : 75 SEX: F ATTEND: Arun Bishop DOADM AUTHOR: Rj Evans DO * ALL edits or amendments must be made on the electronic/computer document * SubjectiveComments:Patient seen and examined, at bedside. Protonix drip running. Mervat peguero anynew complaints. No overnight events per RN. Plan for EGD with gastroenterology Objective GeneralVS/I O:Vital Signs: Date Time Temp Pulse Resp B/P B/P Pulse O2 O2 Flow FiO2 Mean Ox Delivery Rate 05/08 1514 [...] 98.0 75 18 168/72 104 96 Room ai r 24 hour I O ending at 0700: 05/08 0700 05/07 190 0 Intake Total Output Total Balance Patient 70.7 kg Weight Weight Bed scale Measurement Method PATIENT WEIGHT: Weight (lb): Weight (oz): Weight (kg): 70.700 Medications:Active Meds + DC'd Last 24 HrsAtorvastatin Calcium (LIPITOR) 40 MG DAILY@2100 PO Aspirin (ASPIRIN) 81 MG DAILY PO Clopidogrel Bisulfate (Plavix) 75 MG DAILY PO Spironolactone (ALDACTONE) 50 MG DAILY PO Acetaminophen (TYLENOL) 650 MG Q4H PRN PRN PO Acetaminophen/Codeine Phosphate (TYLENOL W CODEINE NO.3) 1 TAB Q6H PRN PRN PO Al Hydrox/Mg Hydrox/Simethicone (MYLANTA) 30 ML Q4H PRN PRN P O Docusate Sodium (COLACE) 100 MG BID PRN PRN PO Hydralazine HCl (APRESOLINE) 10 MG Q6H PRN PRN I V Ondansetron HCl (ZOFRAN) 4 MG Q4H PRN PRN IV Pantoprazole Sodium (PROTONIX) 80 MG .Q10H IV (CKD) Sodium Chloride (SODIUM CHLORIDE 0.9%) 100 MLSodium Chloride (SODIUM CHLORIDE 0.9%) 1,000 M L .[id number] IV Dextrose/Sodium Chloride (Dextrose 5 % / 0.9% NaCl) 1,000 ML X1ED STA IV (DC) Sodium Chloride (SODIUM CHLORIDE) 10 ML ASDIR PRN IV Pantoprazole Sodium (PROTONIX) 80 MG X1ED STA IV (DC) Pantoprazole Sodium (PROTONIX) 80 MG X1ED STA IV (DC) Sodium Chloride (SODIUM CHLORIDE 0.9%) 100 MLSodium Chloride (SODIUM CHLORIDE) 0 ASDIR PRN IV Sodium Chloride (SODIUM CHLORIDE 0.9%) 1,000 ML X1ED STA IV (DC) Free Text Obj NotesFree Text Obj Notes:General appearance: alert, awake, orientedHead/Eyes: atraumatic, normocephalicENT: moist mucosal membranes, delon l pharynxNeck: non-tender, supple/no meningismus, no JVDCardiovascular: normal capillary refill, normal heart sounds, regular rate rhythmRespiratory: aerating well, clear to auscultation, symmetric expansionAbdomen: non-tender, normal bowel sounds, soft, no distentionExtremities: no clubbing, no cyanosis, no edemaNeuro/AREA ATTENDANT: alert, oriented X 3, CNII-XII intactSkin: dry, intactPsychiatry: normal affect , normal judgment/insight Diagnosis, Assessment PlanProblem List/A P: 1. Upper GI bleed Likely due to gastric ulcer in the setting of aspirin and Plavix Start on Protonix drip GI seen, plan for EGD, requesting cardiology clearance/evaluation to see if patient can be on single antiplatelet therapy instead of dual antiplatelet therapy 2. CAD (coronary artery disease) Patient just had stents placed on 05/05/2021, will need to continue aspirin andPlavix at this time Continue Lipitor 40 mg at bedtime Patient had the stents placed in [place] We will have on-call cardiology evaluate for viability of single antiplatelet platelet therapy Consultants: gastroenterology Free Text DxA P NotesFree text DxA P notes:SCDs for DVT prophylaxisClear liquid dietPatient does not hav e a living will or power of tax associate attorney Quality: Gen Med Crit Care VTE ProphylaxisVTE prophylaxis initiated: yes Current MedicationsCurrent medication review:I attest that the foregoing medication list in the medical record is true, accurate, and complete to the best of my knowledge. Advanced Care Plan 65 or OlderDiscussed with: patientDiscussion included: living will, power of tax associate attorney, code status at 1613 RPT #:[id number] OF REPORTPRProgress Gruw9620-99-95G30:06:00G.[id number] l able for patient threPYLXEKLUVVQEAZ6796-99-69V71:13:31 2021-05-08 11:13:00 [id number]:13:00 [facility] ([facility])GE Consultation NoteREPORT#:[id number] REPORT STATUS: SignedDATE:05/08/21 TIME: 1113 PATIENT: MARLA CAMPOS UNIT #: [id number]#: [id number] ROOM/BED: 6601-1DOB: [birth year] AGE : 75 SEX: F ATTEND: Arun Bishop DOADM AUTHOR: Eric Hall MD * ALL edit s or amendments must be made on the electronic/computer document * History of Presen t Illness Free Text HPI NotesFree Text HPI Notes:[age] year old woman with recent PCI, on aspirin/plavix, with prior history of "ulcers". She reports had an EGD/Colonoscopy a few months ago, then PCI a few days ago. She reports dark stools, which led her to come to hospital, associatedwith dyspesia, located upper abdomen, severity moderate. History - Adult longitudinalAdditional medical history:cad s/p PCI, anemia, hx of ulcersAdditional surgical history:Hysterectomy Breast biopsy Cholecystectomy Knee Sinus surgeryAdditional family history:DeniesAlcohol use: Denies EtOH useDrug use: Denies recreational drugsSmoking status: Smoking status for patients 13 years old or older: Former SmokerAllergies:Coded Allergies:Penicillins (Severe, INJECTION SITE SWELLING 05/07/21)[place] And Derivatives (Intermediate, VOMITING 05/07/21)Quinolones (Intermediate, RASH, FACIAL SWELLING 05/07/21)clarithromycin (From BIAXIN) (Intermediate, RASH, SORE TONGUE 05/07/21)clotrimazole (Intermediate, UTI, RASH 05/07/21)fludrocortisone (From FLORINEF) (Intermediate, SEVERE RASH, SWELLING OF EYES 05/07/21)fluticasone furoate (From BREO ELLIPTA) (Intermediate, HARD TO BREATH 05/07/21)rofecoxib (From VIOXX) (Intermediate, EYE AND BODY SWELLIN G 05/07/21)sulfapyridine (Intermediate, EYE LID SWELLING 05/07/21)vilanterol (From BREO ELLIPTA) (Intermediate, HARD TO BREATH 05/07/21)doxycycline (From PERIOSTAT) (Mild, ABDOMINAL PAIN 05/07/21)meperidine (From DEMEROL ) (Mild, VOMITING 05/07/21)pregabalin (From LYRICA ) (Mild, WATERY EYES 05/07/21)iodine (UNKNOWN 05/07/21)Uncoded Allergies:PREICID (Intermediate , ABD PAIN, LIGHT HEADEDNESS, NAUSEA 05/07/21)RALAFEN (Mild, ABDOMINAL PAIN 05/07/21) Review of SystemsAdditional notes:10 point ros neg except hpi Objective Physical ExamVS/I O:Las t Documented: Result Date Time Pulse Ox 96 05/08 1009 B/P 129/76 05/08 1009 B/P Mean 93.9 05/08 1009 O2 Delivery Room air 05/08 1009 Temp 36.5 05/08 1009 Pulse 66 05/08 1009 Resp 16 05/08 100 9 24 hour I O ending at 0700: 05/08 0700 05/07 1900 Intake Total Output Total Balance Patient 70.7 kg Weight Weight Bed scale Measurement Method PATIENT WEIGHT: Weight (lb): Weight (oz): Weight (kg): 70.700 Medications:Active Meds + DC'd Last 24 HrsAtorvastatin Calcium (LIPITOR) 4 0 MG DAILY@2100 PO Aspirin (ASPIRIN) 81 MG DAILY P O Clopidogrel Bisulfate (Plavix) 75 MG DAILY PO Spironolactone (ALDACTONE) 50 MG DAILY PO Acetaminophen (TYLENOL) 650 MG Q4H PRN PRN PO Acetaminophen/Codeine Phosphate (TYLENOL W CODEINE NO.3) 1 TAB Q6H PRN PRN PO Al Hydrox/Mg Hydrox/Simethicone (MYLANTA) 30 ML Q4H PRN PRN P O Docusate Sodium (COLACE) 100 MG BID PRN PRN PO Hydralazine HCl (APRESOLINE) 10 MG Q6H PRN PRN I V Ondansetron HCl (ZOFRAN) 4 MG Q4H PRN PRN IV Pantoprazole Sodium (PROTONIX) 80 MG .Q10H IV (CKD) Sodium Chloride (SODIUM CHLORIDE 0.9%) 100 MLSodium Chloride (SODIUM CHLORIDE 0.9%) 1,000 M L .[id number] IV Dextrose/Sodium Chloride (Dextrose 5 % / 0.9% NaCl) 1,000 ML X1ED STA IV (DC) Sodium Chloride (SODIUM CHLORIDE) 10 ML ASDIR PRN IV Pantoprazole Sodium (PROTONIX) 80 MG X1ED STA IV (DC) Pantoprazole Sodium (PROTONIX) 80 MG X1ED STA IV (DC) Sodium Chloride (SODIUM CHLORIDE 0.9%) 100 MLSodium Chloride (SODIUM CHLORIDE) 0 ASDIR PRN IV Sodium Chloride (SODIUM CHLORIDE 0.9%) 1,000 ML X1ED STA IV (DC) General appearance: alert, awakeHEENT: abnl conjunctiva/sclera, dry mucosal membranesNeck: decreased range of motionCardiovascular: normal capillary refill, regular rate rhythmRespiratory : aerating well, symmetric expansionAbdomen: non-tenderExtremities: decreased range of motionMusculoskeletal: decreased ROMNeuro/AREA ATTENDANT: alert, oriented X 3Skin: abnormal color, abnorma l temperaturePsychiatry: normal affect, normal judgment/insight ResultsFindings/Data:Laboratory Tests 05/08/21599:Hgb TNP, Hct TNP 05/08/21599:[Embedded Image Not Available] 05/08/219:[Embedded Image Not Available] 05/07/212022:[Embedded Image Not Available]Laboratory Tests 05/08 Chemistry Sodium (134 - 147 mEq/L) 138 140 Potassium (3.4 - 5.0 mEq/L) 3.7 4.2 Chloride (100 - 108 mEq/L) 10 5 105 Carbon Dioxide (21 - 33 mEq/l) [...] (30 - 65 IUnit/L) 16 L Total Al k Phosphatase (20 - 125 IUnit/L) 76 Total Protein (6.4 - 8.2 g/dL) 6.8 Albumin (3.4 - 5.0 g/dL) 4.00 Laboratory Tests 05/08 Coagulation INR (0.8 - 1.2) 1.1 PT Patient/Control Mix (9.3 - 12.9 SECONDS) 12.0 Pl t P2Y12 React Units (182 - 335 PRU) [...] % (Auto) (14.0 - 32.0 %) 17.9 [place] % (Auto) (4.8 - 9.0 %) 8.4 Eos % (Auto) (0.3 - 3.7 %) 2.8 Baso % (Auto) (0.0 - 2.0 %) 0.3 Neut # (Auto) (2.0 - 7. 6 x10 3/uL) 6.29 Lymph # (Auto) (1.0 - 3.8 x10 3/uL) 1.61 [place] # (Auto) (0.1 - 0.8 x10 3/uL) 0.75 Eos # (Auto) (0.0 - 0.2 x10 3/uL) 0.25 H Baso # (Auto) (0.0 - 0.2 x10 3/uL) 0.03 Abs Melissa t Gran (auto) (0.00 - 0.03 x10 3/uL) 0.04 H Add Manual Diff NO Immature Gran % (0.0 - 2.0 %) 0.4 Nucleated RBC % (0 - 0 %) 0.0 Nucleated RBCs # (Man) (0.0 - 0.1 x10 3/uL) 0.00 Diagnosis, Assessment Plan Free Text DxA P NotesFree Text DxA P Notes:change in bowel habitsdual antiplatelet therapyrecent pcicadhx of "ulcers"recent egd/colonoscopy - monitor h/h, transfuse as needed- cardiology eval to assess feasibility of single antiplatelet therapy rathe r than dual antiplatelet therapy in view of gi bleeding- ppi therapy- clear liquid diet- egd tomorrow to assess degree of PUD at 1417 RPT #:[id number] OF REPORTBDPcjqhyswobpx6883-17-02U29:13:00G.PDOC 2 [id number] for patient qajvLQAYNDMZOJYKRU3810-47-33B41:17:42 2021-05-07 22:29:00 [id number]:29:00 [facility] ([facility])EMERGENCY PROVIDER REPORTREPORT#:[id number] REPORT STATUS: SignedDATE:05/07/21 TIME: 2228 PATIENT: MARLA CAMPOS UNIT #: [id number]#: [id number] ROOM[facility]BED[facility]AGE: 75 SEX: F PC P PHYS: No Primary or Family PhysicianSERVICE AUTHOR: David Chong MD * ALL edits or amendments must be made on the electronic/computer document * HPI-GI Bleed/Rectal Prob GeneralInitial Greet Date/Time 05/07/21 1947PCPNo PCPAetna PresentationChief Complaint Stool maroon, Stool tarry blackBleedin g Severity ModerateHx Obtained From PatientOnset Occurred TodaySymptom Duration Since onsetProgression since Onset Unchanged Free Text HPI NotesFree Text HPI [id number]-[id number] with history of coronary artery disease status post 3 stents recently at [place], history of stroke with no significant permanent deficits, presents with melena since earlier today. Mild abdominal discomfort. No nausea vomiting. No fever chills. Mild generalized weakness. Patient takesPlavix. Risk-GI Bleed/Rectal Prob Risk StratificationBleeding Risk factors reviewed, Anticoagulants Review of Systems ROS StatementsAll systems rev neg except as marked. Focused Review of SystemsConstitutionalReports: Weakness - generalized. Denies: Chills, Fatigue, Fever, Lethargy, Malaise, Recent wt loss. Ears/Nose/ThroatDenies: Ear drainage R, Ear drainage L, Ear drainage bilat, Ear ringing R, Ear ringing L, Ear ringing bilat, Earache R, Earache L, Earache bilat, Hearing loss R, Hearin g loss L, Hearing loss bilat, Mouth pain, Nasal congestion, Nose bleeding, Sinus problem, Sore throat, Throat pain, Throat swelling, Tongue pain,Tongue swelling, Toothache, Voice change. RespiratoryDenies: Cough, non-productive, Cough, productive, Dyspnea on exertion, Hemoptysis, Parox nocturnal dyspnea, Pleuritic pain, Shortness of breath, Wheezing. CardiovascularDenies: Chest pain, Dyspnea on exertion, Edema, Orthopnea, Palpitations, Parox nocturnal dyspnea, Syncope. GIReports: Abdominal pain, Bloody/tarry stool, Melena. Denies: Anorexia, Belching, Constipation, Diarrhea, Dysphagia, Hematemesis, Hematochezia, Mucousy stool, Nausea, Rectal pain, Vomiting. HematologicReports: Bleeding. Denies: Adenopathy , Bruising, Petechiae. NeurologicReports: Generalized weakness. Additional Review of SystemsGU FemaleDenies: Dysuria, Flank pain, Hematuria, Incontinence, Nocturia, Pelvic pain, , Urinary frequency, Urinary urgency, Urination decreased, Urination increased, Vagina l bleeding - abnl, Vaginal discharge. Past Medical History - AdultStated Complaint GI BLEEDAllergiesCoded Allergies:Penicillins (Severe, INJECTION SITE SWELLING 05/07/21)[place] And Derivatives (Intermediate, VOMITING 05/07/21)Quinolones (Intermediate, RASH, FACIAL SWELLING 05/07/21)clarithromycin (From BIAXIN) (Intermediate, RASH, SORE TONGUE 05/07/21)clotrimazole (Intermediate, UTI, RASH 05/07/21)fludrocortisone (From FLORINEF) (Intermediate, SEVERE RASH, SWELLING OF EYES 05/07/21)fluticasone furoate (From BREO ELLIPTA) (Intermediate, HARD TO BREATH 05/07/21)rofecoxib (From VIOXX) (Intermediate, EYE AND BODY SWELLIN G 05/07/21)sulfapyridine (Intermediate, EYE LID SWELLING 05/07/21)vilanterol (From BREO ELLIPTA) (Intermediate, HARD TO BREATH 05/07/21)doxycycline (From PERIOSTAT) (Mild, ABDOMINAL PAIN 05/07/21)meperidine (From DEMEROL ) (Mild, VOMITING 05/07/21)pregabalin (From LYRICA ) (Mild, WATERY EYES 05/07/21)iodine (UNKNOWN 05/07/21)Uncoded Allergies:PREICID (Intermediate , ABD PAIN, LIGHT HEADEDNESS, NAUSEA 05/07/21)RALAFEN (Mild, ABDOMINAL PAIN 05/07/21) Home MedicationsActive ScriptsCLOPIDOGREL (PLAVIX) 75 MG PO DAILY 90 Days #90 TABS Ref 3 Prov: 05/05/21 Reported MedicationsATORVASTATIN (LIPITOR) 40 MG PO BEDTIME POTASSIUM CHLORIDE ER (MICRO-K) 2 CAP PO TID ESTROGENS,CONJ (PREMARIN 0.625 MG/GM VAGINAL) 0.5 GM VAGINAL TWICE A WEEK PROMETHAZINE/DEXTROMETHORPHAN (PHENERGAN DM 6.25-15 MG/5ML) 5 ML PO Q6H PRN PRN COUGH ALBUTEROL (ALBUTEROL NEB SOLN 0.021%) 0.63 MG IN H RTQ6H PRN PRN SOB LEVOCETIRIZINE (XYZAL) 5 MG PO DAILY ASPIRIN EC (ECOTRIN) 81 MG PO DAILY [MAGNESIUM GLYCERINAT] UBIDECARENONE (CO Q-10) 100 MG PO BID DOCUSATE SODIUM (COLACE) 100 MG PO DAILY PRN CONSTIPATION [PEARLS PROBIOTIC] [VITAMIN D3] [COSAMIN ASU JOINT ] [MOVE FREE JOINT ] [TUMERIC ] SPIRONOLACTONE (ALDACTONE) 50 MG PO DAILY METOLAZONE (ZAROXOLYN) 5 MG PO MONDAY,MONDAY Discontinued Reported MedicationsOMEPRAZOLE ER (PriLOSEC) 40 MG PO BID Past Medical History:Reports: Coronary artery disease. Smoking status: Smoking status for patients 13 years old or older: Former Smoker Physical Exam Vital SignsVital SignsFirst Documented: Result Date Time Pulse Ox 96 05/07 1951 B/P 168/72 05/07 1951 B/P Mean 104 05/07 1951 O2 Delivery Room air 05/07 1951 Temp 36.7 05/07 1951 Pulse 75 05/07 1951 Resp 18 05/07 Last Documented: Result Date Time Pulse Ox 96 05/07 1951 B/P 168/72 05/07 1951 B/P Mean 104 05/07 1951 O2 Delivery Room air 05/07 1951 Temp 36.7 05/07 1951 Pulse 75 05/07 1951 Resp 18 04/17 Review of Vital Signs Reviewed Free Text PE NotesFree Text PE NotesAlert and oriented x3, no apparent distress, minimal pallor, no diaphoresis, slightly dry mucous membranes, neck supple no JVD, lungs clear to station bilaterall y without distress retractions, heart regular rate and rhythm without tachycardia, abdomen soft nontender deep palpation, no focal neuro deficits. Cap refill is brisk. Interpretation Diagnostics Lab Results InterpretationResultsLaboratory Tests 05/07/212022:[Embedded Image Not Available]Laboratory Tests: 05/07 Chemistry Sodium (134 - 147 mEq/L) 140 Potassium (3.4 - 5.0 mEq/L) 4.2 Chloride (100 - 108 mEq/L) 105 Carbon Dioxide (21 - 33 mEq/l) 28 Anion Gap (0 - 20) 1 1 BUN (7 - 18 mg/dL) 15 Creatinine [...] PT Patient/Control Mix (9.3 - 12.9 SECONDS) 12.0 Hematology WBC (4.5 - 11.0 x10 3/uL) 11.5 H RBC (3.54 - 5.02 x10 6/uL) 3.78 Hgb (11.0 - 15.0 g/dL) 12.3 Hct (33.0 - 45.0 %) 35.7 MCV (81.0 - 99.0 fL) 94.4 MCH (27.0 - 33.0 pg) 32.5 MCHC (33.0 - 37.0 g/dL) 34.5 RDW (11.5 - 14.5 %) 13. 0 Plt Count (150 - 400 x10 3/uL) 135 L MPV (7.0 - 9.0 fL) 10.5 H Lab Imaging StatementLaboratory radiographic studies reviewed and considered in the medical decision-making. Re-Evaluation MDM Re-Evaluation/Progress #1Text/Dict NotePatient clinically and hemodynamically stable. Last sergio l movement with melenicstool was before noon today . No recurrent bleeding here in the ER.Time of Re-Eval 2229Re-Eval Status Improved ED CourseMedication(s) OrderedMedication(s) Ordered:Electrolytic, Caloric, And Cody Sig/Nellie Start time Last Medication Dose Route Stop Time Status Admin Sodium Chloride 10 ML ASDIR PRN 05/07 2030 AC IV 06/06 2029 Sodium Chloride 0 ASDIR PRN 05/07 2000 DC IV 05/08 1858 ConsultationConsultation Referral/Consult Name Juan Recinos MD Family Support Specialist Called Gastroenterology Requested Call Time 2233 Requested Call Date 05/07/21 Patient Discharge Departure Vital Signs/ConditionVital SignsFirst Documented: Result Date Time Pulse Ox 96 05/07 1951 B/P 168/72 05/07 1951 B/P Mean 104 05/07 1951 O2 Delivery Room air 05/07 1951 Temp 36.7 05/07 1951 Pulse 75 05/07 1951 Resp 18 05/07 Last Documented: Result Date Time Pulse Ox 96 05/07 1951 B/P 168/72 05/07 1951 B/P Mean 104 05/07 1951 O2 Delivery Room air 05/07 1951 Temp 36.7 05/07 1951 Pulse 75 05/07 1951 Resp 18 05/07 1951 All vital signs available at the time of this entry have been reviewed. Condition Stable, Guarded Clinical ImpressionClinical ImpressionPrimary Impression: Upper GI bleed Disposition DecisionAdmit Admit Physician Name Arun Bishop DO Admit Physician Hospitalist Request Time 2230 Request Date 05/07/21 )( Admission Accepts Yes )( Accepted Time 2230 )( Accepted Date 05/07/21 Call Information will see patient Discharge/Care PlanCounseled Regarding Diagnosis, Lab results, Imaging studies, Need for admission(Auto) PrescriptionsCurrent Visit ScriptsPANTOPRAZOLE D R (PROTONIX) 40 MG PO Q12H PANTOPRAZOLE DR (PROTONIX) 40 MG PO Q12H #60 TAB Critical CareTime Spent (minutes): 33Services Performed Patient management by me, Time spent at bedside, Reviewing test results, Reviewing imaging, Discussing patient care, Documentation in recordSeparately billable procedures excluded from time.Patient was critically ill due to:uppe r gi bleedMy treatment and management were:IV flui d resuscitation, GI consult CC Note 1Total critica l care time [33] minutes. Total critical care time documented does not include time spent on separately billed procedures or the services of residents, students, nurses or physician assistants. I personally saw and examined the patient. I have reviewed all diagnostic interpretations and treatment plans as written. I was present for the longoria portions of any proceduresperformed and the inclusive time noted in any critical care statement. Critical care time includes patient management by me, time spent at the patients bedside,time to review lab and imaging results, discussing patient care, documentation in the medical record, and time spent with the family or caregiver. at 0212RPT #:[id number] OF REPORTEDEmerencompass health rehabilitation hospitalcy department gfxlgw2176-76-16T40:29:00G.[id number] a ilable for patient ygrlIIIIJBUTMKZDNW8606-52-97L94:13:02 2021-05-07 22:28:00 [id number]:28:00 [facility] ClubHospitalist History PhysicalREPORT#:[id number] REPORT STATUS: SignedDATE:05/07/21 TIME: 2227 PATIENT: MARLA CAMPOS UNIT #: [id number]#: [id number] [address] AGE: 75 SEX: F ATTEND: Arun Bishop DOADM AUTHOR: Arun Bishop DO * ALL edits or amendments must be made on the electronic/computer document * History of Presen t Illness HPIChief complaint:Black stoolsPCP:PCP: Dr Berman: Dr Daly:75-year-old female with past medical history significant for coronary artery disease status post 3 stents placed on 05/05/2021, stroke in 2019, right carotidocclusion, and gastric ulcer and hemorrhoids diagnosed on EGD and colonoscopy on02/25/2021 presents to emergency department wit h complaint of black stools since this morning. Patient reports she was on the toilet this morning when she noticed black tarry stools. She admits to nausea. Denies abdominal pain, vomiting, hematochezia, fevers, chills, diarrhea . Patient is currently taking aspirin and Plavix since her stents on 05/05/2021. History Past Medical Surgical HxPatient History: 1. CVA (cerebral vascular accident) 2. CAD (coronary artery disease) 3. Gastric ulcer Additional surgical history:HysterectomyBreast biopsyCholecystectomyKneeSinus surgery Family HistoryAdditional family history:Denies Social HistoryAlcohol use: Denies EtOH useDrug use: Denies recreational drugsSmoking status: Smoking status for patients 13 years old or older: Madison mendoza Smoker Medication/Allergy-Vaccine HxMedications:Home Medications:ASPIRIN EC (ECOTRIN) 81 MG PO DAILY [MAGNESIUM GLYCERINAT] UBIDECARENONE (CO Q-10) 100 MG PO BID DOCUSATE SODIUM (COLACE) 100 MG PO DAILY PRN CONSTIPATION [PEARLS PROBIOTIC] [VITAMIN D3] [COSAMIN ASU JOINT [...] BEDTIME CLOPIDOGREL (PLAVIX) 75 MG PO DAILY Allergies:Coded Allergies:Penicillins (Severe, INJECTION SITE SWELLING 05/03/21)sulfapyridine (Intermediate, EYE LID SWELLING 05/03/21)iodine (UNKNOWN 05/03/21) Review of Systems Free Text ROS NotesFree Text ROS Notes:14 point review of systems obtained, pertinent positives and negatives noted in HPI Physical ExamVS/I O:Vital Signs Date Temp Pulse Resp B/P B/P Mean Pulse Ox FiO2 05/07 98.0 73-75 17-18 126-168/72-99 104-10 8 96-97 Last Documented: Result Date Time Pulse Ox 97 05/07 2307 B/P 126/99 05/07 2307 B/P Mean 10 8 05/07 2307 O2 Delivery Room air 05/07 2307 Pulse 73 05/07 2307 Resp 17 05/07 2307 Temp 98.0 05/07 1951 Patient Weight and BMI Weight (kg): 70.700 BMI: 25.9 ResultsFindings/Data:Laboratory Tests: 05/07 Chemistry Sodium (134 - 147 [...] (30 - 65 IUnit/L) 16 L Total Al k Phosphatase (20 - 125 IUnit/L) 76 Total Protein (6.4 - 8.2 g/dL) 6.8 Albumin (3.4 - 5.0 g/dL) 4.00 Coagulation INR (0.8 - 1.2) 1.1 PT Patient/Control Mix (9.3 - 12.9 SECONDS) 12.0 Hematology WBC (4.5 - 11.0 x10 3/uL) [...] - 9.0 fL) 10.5 H Laboratory Tests 05/07/212022:[Embedded Image Not Available] Results: lab s reviewed, vital signs stable Free Text PE NotesFree Text PE Notes:General appearance: alert, awake, orientedHead/Eyes: atraumatic, normocephalicENT: moist mucosal membranes, delon l pharynxNeck: non-tender, supple/no meningismus, no JVDCardiovascular: normal capillary refill, normal heart sounds, regular rate rhythmRespiratory: aerating well, clear to auscultation, symmetric expansionAbdomen: non-tender, normal bowel sounds, soft, no distentionExtremities: no clubbing, no cyanosis, no edemaNeuro/AREA ATTENDANT: alert, oriented X 3, CNII-XII intactSkin: dry, intactPsychiatry: normal affect , normal judgment/insight Diagnosis, Assessment PlanProblem List/A P: 1. Upper GI bleed Likely due to gastric ulcer in the setting of aspirin and Plavix Start on Protonix drip GI consulted 2 . CAD (coronary artery disease) Patient just had stents placed on 05/05/2021, will need to continue aspirin andPlavix at this time Continue Lipitor 40 mg at bedtime Free Text A P:SCDs for DVT prophylaxisCardiac dietPatient does not have a living will or power of attorneyConsultants: gastroenterologyPlan discussed with: patientResuscitation discussion: Discussed with: patientCode status: full code Quality: Gen Med Crit Care VTE ProphylaxisVTE prophylaxis initiated: yes Current MedicationsCurrent medication review:I attest that the foregoing medication list in the medical record is true, accurate, and complete to the best of my knowledge. Advanced Care Plan 65 or OlderDiscussed with: patientDiscussion included: living will, power of tax associate attorney, code status at 2334 RPT #:[id number] OF REPORTHPHistory and physical nwgatayfekv9769-85-94X81:28:00G.[id number] 4 AVAvailable for patient xhqaXIPOTFFWKSXGOJ3998-79-48M88:34:53 2021-05-05 18:32:00 [id number]:32:[id number] [place] [address] PATIENT NAME: MARLA CAMPOS ADMIT DATE: 05/05/21ACCOUNT NO: [id number] ROOM NO: AGE: 75 REPORT TYPE: eELECTROCARDIOGRAM REPORT SEX: F ADMITTING PHYSICIAN: ATTENDING PHYSICIAN:Devon Whatley MD Order:[id number] Reason : S/P PCI Test Date/Time Stamp:MonMay 05 2021 18:32:15Blood Pressure : / mmHGVent. Rate : 067 BPM Atrial Rate : 067 BPM P-R Int : 150 ms QRS Dur : 086 ms QT Int : 392 ms P-R-T Axes : 064 007 088 degrees QTc Int : 414 ms Normal sinus rhythmNormal ECGWhen compared with ECG of 05-MAY-2021 15:24,No significant change was foundConfirmed by ARIC MORLEY MD ([id number]) on 05/05/2021 6:38:52 PM Referred By: Devon Whatley Confirmed by:ARIC MORLEY MD at 183 8 PATIENT NAME: MARLA CAMPOS .[id number] AVAvailable for patient [id number]:39:11 2021-05-05 15:47:00 [id number] [facility] [place], [place] [address] PATIENT NAME: MARLA CAMPOS ADMIT DATE: 05/05/21ACCOUNT NO: [id number] ROOM NO: AGE: 75 REPORT TYPE: CARDIAC CATHETERIZATION REPORT SEX: F ADMITTING PHYSICIAN: ATTENDING PHYSICIAN:Devon Whatley MD PROCEDURE DATE: 05/05/2021 PROCEDURE PERFORMED:1 . CSI atherectomy of severe diffuse right coronary artery disease, proximal,mid, and distal.2. Percutaneous coronary intervention of severe right coronary artery diseaseusing 3.5 x 28 mm plus 3.5 x 20 mm plus 3.5 x 60 mm Synergy drug-eluting stent. ACCESS: Right radial artery, 6-Iranian closed with TR band. COMPLICATIONS: None. BLEEDING: Less than 10 mL. TOTAL SEDATION TIME: 75 minutes. DESCRIPTION OF PROCEDURE: Afte r risks, benefits, and alternatives wereexplained, the patient agreed to proceed and signed informe d consent. Thepatient was brought into the cardiac catheterization laboratory, prepped anddraped in usual sterile fashion. Then, access, right radia l artery usingpediatric micropuncture kit, placed a 6-Iranian slender sheath. Then, I took a6-Iranian JR4 guide into the aortic root and engaged the RCA and sent ____ overthe wire to the distal RCA and exchanged that for a Viper wire and did CSIatherectomy of heavily calcified, severe fem-hf-nowssw RCA disease andpostdilated using 3.5 x 20 mm NC balloon and then placed a 3.5 x 4 8 plus 3.5 x20 mm Synergy drug-eluting stent with excellent results; however, there wasstill significant ostial disease, so I placed another 3.5 x 60 mm, inflated tovery high pressure, gave a size of 3.9 mm with excellent results. The patienthad a short period of no reflow after the atherectomy, improved quickly afterstenting. The patient is hemodynamically stable. Final angiogram wassatisfactory. Then, we removed the guide and the sheath and placed TR band withgood hemostasis. CONCLUSION:1. Successful atherectomy of xyb-wt-rydjge RCA.2. Successful PCI of proximal, tzt-ej-pnmgxk RCA as above. PLAN: Aspirin, Plavix, high-dose statin and follow up with me in the office in1 week. Dictated By: Devon Whatley MD WT: CATH:ROBERTO/MICHAEL/RADHA T NAME: MARLA CAMPOS DT: 05/05/2021 21:03:01Conf#: [id number]/DID#: [id number] Authenticated by Devon Whatley MD On 05/07/2021 09:08:00 AM at 0908 PATIENT NAME: MARLA CAMPOS [id number]:03:00G.[id number] a ble for patient [id number]:08:38 2021-05-05 15:24:00 [id number]:24:[id number] [facility] [place] [address] PATIENT NAME: MARLA CAMPOS ADMIT DATE: 05/05/21ACCOUNT NO: [id number] ROOM NO: AGE: 75 REPORT TYPE: eELECTROCARDIOGRAM REPORT SEX: F ADMITTING PHYSICIAN: ATTENDING PHYSICIAN:Devon Whatley MD Order:[id number] Reason : POST PCI Test Date/Time Stamp:MonMay 05 2021 15:24:15Blood Pressure : / mmHGVent. Rate : 070 BPM Atrial Rate : 070 BPM P-R Int : 146 ms QRS Dur : 084 ms QT Int : 398 ms P-R-T Axes : 068 006 090 degrees QTc Int : 429 ms Normal sinus rhythmLow voltage QRSBorderline ECGWhen compared with ECG of 03-MAY-2021 11:37,No significant change was foundConfirmed by KAMRAN TRAN [facility] ([id number]) on 05/05/2021 4:45:42 PM Referred By: Devon Whatley Confirmed by:ARIC MORLEY MD at 164 5 PATIENT NAME: MARLA CAMPOS .[id number] AVAvailable for patient [id number]:46:52 2021-05-03 11:37:00 [id number]:37:[id number] [facility] [place] [address] PATIENT NAME: MARLA CAMPOS ADMIT DATE: ACCOUNT NO: [id number] ROOM NO: AGE: 75 REPORT TYPE: eELECTROCARDIOGRAM REPORT SEX: F ADMITTING PHYSICIAN: ATTENDING PHYSICIAN:Devon Whatley MD Order:[id number] Reason : PREOP Test Date/Time Stamp:MonMay 03 2021 11:37:20Blood Pressure : / mmHGVent. Rate : 058 BPM Atrial Rate : 058 BPM P-R Int : 146 ms QRS Dur : 086 ms QT Int : 416 ms P-R-T Axes : 066 039 068 degrees QTc Int : 408 ms Sinus bradycardiaOtherwise normal ECGNo previous ECGs availableConfirmed by KAMRAN TRAN, ARIC ([id number]) o n 05/03/2021 4:13:14 PM Referred By: No Physician Confirmed by:ARIC MORLEY MD at 161 3 PATIENT NAME: MARLA CAMPOS .[id number] AVAvailable for patient [id number]:13:46
[2023-06-11] MEDS ORDERED: HYDROCODONE/APAP 5/325 MG TAB ONE (16:23)
--- NOTE | 2023-06-11 16:23 | RAD REPORT ---
EXAM DESCRIPTION: RAD - Lumbar Spine 3 Views - 06/11/2023 2:57 pm CLINICAL HISTORY: Pain;Smash injury COMPARISON: Pelvis Wo Cont dated 12/24/2022; Abdomen Pelvis Wo Contrast dated 07/28/2021; Spine Lumb ar Wo Con dated 06/11/2023 TECHNIQUE: Lumbar spine, 3 views. FINDINGS: Likely acute superior endplate compression deformity at L2, with mild comminution. Other v ertebral bodies are normal in height and alignment. No other acute bony process seen. No disc space n arrowing. Multilevel degenerative changes of the endplates and facet articulations most pronounced at the lower lumbar facet levels. Dense atherosclerotic calcifications of the aorta. IMPRESSION: Likely acute superior endplate compression deformity at L2 with mild comminution.
--- NOTE | 2023-06-11 16:32 | RAD REPORT ---
EXAM DESCRIPTION: CT - CTHCSPWOC - 06/11/2023 4:06 pm CLINICAL HISTORY: PAIN. Fall COMPARISON: Head C Spine Mpr Wo Con dated 11/21/2022; Head C Spine Mpr Wo Con dated 09/04/2022; Neck An emeterio dated 07/24/2022; Spine Lumbar Wo Con dated 06/11/2023 TECHNIQUE: Axial thin cut noncontrast CT images of the head were obtained. Axial thin cut noncontrast CT images of the cervical spine were obtained. Multiplanar reformatted images were generated and reviewed. All CT scans are performed using dose optimization technique as appropriate and may include automated exposure control or mA/KV adjustment according to patient size. FINDINGS: CT HEAD WITHOUT CONTRAST: No acute hemorrhage, hydrocephalus or extra-axial collection is identified. Stable right operculum re gion of encephalomalacia, suggestive of sequelae of remote ischemia. Mild diffuse parenchymal volume loss. Ventricular caliber is stable. No areas of brain edema or midline shift. The paranasal sinuses and mastoids are clear.The calvarium is intact. CT CERVICAL SPINE WITHOUT CONTRAST: No fracture or subluxation. Multilevel degenerative changes, with up to moderate multilevel foraminal stenosis from worse on the left, stable. No prevertebral soft tissues swelling is identified. IMPRESSION: No acute traumatic intracranial or cervical spine findings. Stable chronic findings as above.
--- NOTE | 2023-06-11 16:36 | RAD REPORT ---
EXAM DESCRIPTION: CT - Spine Lumbar Wo Con - 06/11/2023 4:08 pm CLINICAL HISTORY: Deformity;Smash injury COMPARISON: No comparisons TECHNIQUE: Axial noncontrast CT imaging of the lumbar spine was performed with coronal and sagittal re-formatted images. All CT scans are performed using dose optimization technique as appropriate and may include automated exposure control or mA/KV adjustment according to patient size. FINDINGS: Acute appearing superior endplate compression deformity at L2, with mild comminution anter iorly, and buckling of the posterior vertebral body cortex, extending for approximately 3 millimeter. Mild prevertebral soft tissue swelling. Other vertebral body heights are well preserved. No aggressive marrow pattern or malalignment. Multilevel degenerative changes involving the endplates and facet articulations. Intervertebral disc disease assessment is inherently limited by CT. Within these limitations, no high -grade canal stenosis suspected, although eami-ek-garilrhf canal stenosis is suspected at L4-5 second james to disc bulging and ligamentum flavum buckling. Up to moderate right neural foraminal narrowing a t the same level due to endplate spurring and disc bulging. . IMPRESSION: Acute appearing superior endplate compression fracture at L2, with mild comminution ante riorly. Posterior cortex buckling, extending for 3 millimeter, mildly effacing the ventral CSF space without significant canal stenosis. Suspected rxng-st-rglyjxce canal stenosis at L4-5, with asymmetric up to moderate right neural forami nal narrowing at that level.
--- NOTE | 2023-06-11 17:11 | EDPHYS ---
Physician Documentation [facility] Name: Marla Campos Age: 77 yrs Sex: Female : 1945 Arrival Date: 06/11/2023 Time: 13:21 Bed 11 Private MD: ED Physician Naveed Palacios HPI: 06/11 15:56 This 77 yrs old Female presents to ER via Wheelchair with complaints of Fall Injury. snw 15:56 Details of fall: The patient fell from seated position, while transferring, to toilet. snw Onset: The symptoms/episode began/occurred suddenly, just prior to arrival. Associated injuries: The patient sustained injury to the low back, pain. Severity of symptoms: At their worst the symptoms were moderate. The patient has experienced similar episodes in the past. It is unknown whether or not the patient has recently seen a physician. Historical: - Allergies: 13:27 Biaxin; ll1 13:27 Breo Ellipta; ll1 13:27 CITRIC ACID; ll1 13:27 Clotrimazole-Betamethasone; ll1 13:27 Demerol; ll1 13:27 Doxycycline; ll1 13:27 Florinef Acetate; ll1 13:27 GABAPENTIN; ll1 13:27 Iodinated Contrast Media - IV Dye; ll1 13:27 Lyrica; ll1 13:27 PENICILLINS; ll1 13:27 Periostat; ll1 13:27 Prevacid; ll1 13:27 QUINOLONES; ll1 13:27 relafen; ll1 13:27 Sulfa (Sulfonamide Antibiotics); ll1 13:27 Vioxx; ll1 - PMHx: 13:27 Hypertensive disorder; Hypercholesterolemia; GERD; CVA; Left sided weakness-mild ll1 (previous CVA); fluid retention; Asthma; - PSHx: 13:27 Coronary Angioplasty; Carotid endarterectomy; right leg stent; Heart Stents; ll1 - Immunization history:: Adult Immunizations up to date. - Social history:: Smoking status: Patient denies any tobacco usage or history of. ROS: 14:14 Constitutional: Negative for fever, chills, and weight loss, Eyes: Negative for injury, snw pain, redness, and discharge, ENT: Negative for injury, pain, and discharge, Neck: Negative for injury, pain, and swelling, Cardiovascular: Negative for chest pain, palpitations, and edema, Respiratory: Negative for shortness of breath, cough, wheezing, and pleuritic chest pain, Abdomen/GI: Negative for abdominal pain, nausea, vomiting, diarrhea, and constipation, : Negative for injury, bleeding, discharge, and swelling, MS/Extremity: Negative for injury and deformity, Skin: Negative for injury, rash, and discoloration, Neuro: Negative for headache, weakness, numbness, tingling, and seizure, Psych: Negative for depression, anxiety, suicide ideation, homicidal ideation, and hallucinations, 14:14 Back: Positive for injury or acute deformity, pain at rest, pain with movement, of the sacrum, Exam: 14:03 Constitutional: This is a well developed, well nourished patient who is awake, alert, snw and in no acute distress. Head/Face: Normocephalic, atraumatic. Eyes: Pupils equal round and reactive to light, extra-ocular motions intact. Lids and lashes normal. Conjunctiva and sclera are non-icteric and not injected. Cornea within normal limits. Periorbital areas with no swelling, redness, or edema. ENT: Nares patent. No nasal discharge, no septal abnormalities noted. Tympanic membranes are normal and external auditory canals are clear. Oropharynx with no redness, swelling, or masses, exudates, or evidence of obstruction, uvula midline. Mucous membranes moist. Neck: Trachea midline, no thyromegaly or masses palpated, and no cervical lymphadenopathy. Supple, full range of motion without nuchal rigidity, or vertebral point tenderness. No Meningismus. Chest/axilla: Normal chest wall appearance and motion. Nontender with no deformity. No lesions are appreciated. Cardiovascular: Regular rate and rhythm with a normal S1 and S2. No gallops, murmurs, or rubs. Normal PMI, no JVD. No pulse deficits. Respiratory: Lungs have equal breath sounds bilaterally, clear to auscultation and percussion. No rales, rhonchi or wheezes noted. No increased work of breathing, no retractions or nasal flaring. Abdomen/GI: Soft, non-tender, with normal bowel sounds. No distension or tympany. No guarding or rebound. No evidence of tenderness throughout. 14:03 Skin: Warm, dry with normal turgor. Normal color with no rashes, no lesions, and no evidence of cellulitis. MS/ Extremity: Pulses equal, no cyanosis. Neurovascular intact. Full, normal range of motion. Neuro: Awake and alert, GCS 15, oriented to person, place, time, and situation. Cranial nerves II-XII grossly intact. Motor strength 5/5 in all extremities. Sensory grossly intact. Cerebellar exam normal. Normal gait. Psych: Awake, alert, with orientation to person, place and time. Behavior, mood, and affect are within normal limits. 14:03 Back: pain, that is moderate, of the sacrum, 14:03 Skin: Appearance: Color: pale, Vital Signs: 13:48 BP 143 / 73; Pulse 68; Resp 16; Temp 98; Pulse Ox 98% ; Weight 72.57 kg; Height 5 ft. 5 ll1 in. ; Pain 10/10; 18:40 BP 131 / 78; Pulse 65; Resp 18; Pulse Ox 99% ; kb3 13:48 Body Mass Index 26.63 (72.57 kg, 165.1 cm) ll1 13:48 Pain Scale: Adult ll1 MDM: 13:45 Patient medically screened. snw 15:30 Differential diagnosis: contusion, fracture, sprain, strain. Data reviewed: vital snw signs, nurses notes, radiologic studies, CT scan, plain films. Independent interpretation of the following test(s) in the Emergency Department X-Ray: My interpretation is lumbar spine 2 with compression fracture. will order CT to further eval. 15:30 Historians other than the Patient: Spouse/Significant Other: . Counseling: I had snw a detailed discussion with the patient and/or guardian regarding the historical points, exam findings, and any diagnostic results supporting the discharge/admit diagnosis, the presence of at least one elevated blood pressure reading (>120/80) during this emergency department visit, radiology results, the need for outpatient follow up, for definitive care, neurosurgery. Special discussion: Based on the history and exam findings, there is no indication for further emergent testing or inpatient evaluation. I discussed with the patient/guardian the need to see the back specialist for further evaluation of the symptoms. ED course: . 18:23 ED course: ambulation with pt to bathroom. She and state this is her norm, Will snw f/u with Dr. Deras and then see Neurosurgery. Number to Dr. Maria Esther Matson [employer] given. 06/11 13:46 Order name: Lumbar Spine (3 Views) XRAY; Complete Time: 16:47 snw 06/11 15:39 Order name: CT Lumbar Spine Wo Con; Complete Time: 16:47 snw 06/11 15:53 Order name: CT Head C Spine; Complete Time: 16:47 snw Administered Medications: 16:15 Drug: HYDROcodone-acetaminophen PO 5 mg-325 mg 1 tabs PO once Route: PO; kb3 Disposition Summary: 06/11/23 18:25 Discharge Ordered Notes: Location: Home(06/11/23 18:25) snw Condition: Stable(06/11/23 18:25) snw Diagnosis - Fall on same level, unspecified snw - Wedge compression fracture of unspecified lumbar vertebra - 2nd snw Followup: snw - With: Emergency Department - When: As needed - Reason: Worsening of condition Followup: snw - With: Merritt Deras MD - When: 1 - 2 days - Reason: Recheck today's complaints, Continuance of care, Re-evaluation by your physician Discharge Instructions: - Discharge Summary Sheet snw - Lumbar Spine Fracture snw Forms: - Medication Reconciliation Form snw - Thank You Letter snw - Antibiotic Education snw - Prescription Opioid Use snw - Patient Portal Instructions snw - Leadership Thank You Letter snw Prescriptions: - acetaminophen-codeine 300-30 mg Oral tablet - take 1 tablet ORAL route 3 times per day; 18 tablet; Refills: 0, Product snw Selection Permitted Signatures: Dispatcher [employer] EDKatty Colby FNP-[place]hel[facility] [employer]-Csnw Darrian Vides, RN RN ll1 Tiffany Quinones, RN RN kb3 Corrections: (The following items were deleted from the chart) 17:14 17:11 Consideration of Admission/Observation Escalation of care including snw admission/observation considered. snw 17:14 17:11 Management of patient was discussed with the following: Hospitalist: awaiting snw consult. snw 17:14 17:11 Differential diagnosis: closed head injury, contusion, sepsis, electrolyte snw derangement, snw 17:14 17:11 Data reviewed: vital signs, nurses notes, lab test result(s), EKG, radiologic snw studies, snw 17:14 17:11 Historians other than the Patient: Spouse/Significant Other: Spouse. Historians snw other than the Patient: Spouse/Significant Other: Spouse. snw 17:14 17:11 Inpatient Admission snw snw 17: 17:11 [place] snw snw 17: 17:11 Telemetry/MedSurg (Inpatient) snw snw 17: 17:11 Stable snw snw 17:14 17:11 an acute exacerbation snw snw 17: 17:11 have worsened snw snw 17: 17:11 Standard snw snw 17: 17:11 snw snw 17:14 17:11 Sepsis, unspecified organism snw snw 17:14 17:11 Cellulitis of other parts of limb snw snw 17:14 17:11 Repeated falls snw snw 17:14 17:11 Acute Kidney Injury snw snw
--- NOTE | 2023-06-11 17:11 | ER ---
Nurse's Notes [facility] Name: Marla Campos Age: 77 yrs Sex: Female : 1945 Arrival Date: 06/11/2023 Time: 13:21 Bed 11 Private MD: Diagnosis: Fall on same level, unspecified;Wedge compression fracture of unspecified lumbar vertebra-2nd Presentation: 06/11 13:28 Ebola Screen: Patient denies travel to an Ebola-affected area in the 21 days before ll1 illness onset. Initial Sepsis Screen: Does the patient meet any 2 criteria? No. Patient's initial sepsis screen is negative. Does the patient have a suspected source of infection? No. Patient's initial sepsis screen is negative. Risk Assessment: Do you want to hurt yourself or someone else? Patient reports no desire to harm self or others. 13:46 Chief complaint: Patient states: Fell in the bathroom at [employer] today. Low back/upper ll1 buttocks pain since. Coronavirus screen: Vaccine status: Patient reports receiving the 2nd dose of the covid vaccine. Client denies travel out of the [place] in the last 14 days. At this time, the client does not indicate any symptoms associated with coronavirus-19. Onset of symptoms was June 11, 2023. 13:46 Method Of Arrival: Wheelchair ll1 13:46 Acuity: DANNY 3 ll1 Triage Assessment: 13:28 General: Appears uncomfortable, Behavior is calm, cooperative, appropriate for age. ll1 Pain: Complains of pain in low back/buttocks Quality of pain is described as aching. Musculoskeletal: Reports pain in low back/buttocks. Injury Description: Bruise. Historical: - Allergies: 13:27 Biaxin; ll1 13:27 Breo Ellipta; ll1 13:27 CITRIC ACID; ll1 13:27 Clotrimazole-Betamethasone; ll1 13:27 Demerol; ll1 13:27 Doxycycline; ll1 13:27 Florinef Acetate; ll1 13:27 GABAPENTIN; ll1 13:27 Iodinated Contrast Media - IV Dye; ll1 13:27 Lyrica; ll1 13:27 PENICILLINS; ll1 13:27 Periostat; ll1 13:27 Prevacid; ll1 13:27 QUINOLONES; ll1 13:27 relafen; ll1 13:27 Sulfa (Sulfonamide Antibiotics); ll1 13:27 Vioxx; ll1 - PMHx: 13:27 Hypertensive disorder; Hypercholesterolemia; GERD; CVA; Left sided weakness-mild ll1 (previous CVA); fluid retention; Asthma; - PSHx: 13:27 Coronary Angioplasty; Carotid endarterectomy; right leg stent; Heart Stents; ll1 - Immunization history:: Adult Immunizations up to date. - Social history:: Smoking status: Patient denies any tobacco usage or history of. Screenin:00 [facility] ED Fall Risk Assessment (Adult) History of falling in the last 3 months, kb3 including since admission Yes- fall prone (multiple falls) (3 pts) Confusion or Disorientation No (0 pts) Intoxicated or Sedated No (0 pts) Impaired Gait Yes (1 pt) Mobility Assist Device Used Yes (1 pt) Altered Elimination No (0 pt) Score/Fall Risk Level 3 or more points = High Risk Oriented to surroundings, Maintained a safe environment, Educated pt \T\ family on fall prevention, incl call for assistance when getting out of bed, Assessed \T\ reinforced patient's understanding of fall precautions, Provided non-skid footwear. Abuse screen: Denies threats or abuse. Denies injuries from another. Nutritional screening: No deficits noted. Tuberculosis screening: No symptoms or risk factors identified. Assessment: 16:00 General: Appears in no apparent distress. uncomfortable, Behavior is calm, cooperative. kb3 Pain: Complains of pain in thoracic area, lumbar area, left low back and right low back Pain does not radiate. Pain currently is 10 out of 10 on a pain scale. 16:00 Musculoskeletal: Tenderness present in lumbar area, left low back and right low back. kb3 18:50 General: Pt ambulatory to restroom with stand-by assist. kb3 Vital Signs: 13:48 BP 143 / 73; Pulse 68; Resp 16; Temp 98; Pulse Ox 98% ; Weight 72.57 kg; Height 5 ft. 5 ll1 in. ; Pain 10/10; 18:40 BP 131 / 78; Pulse 65; Resp 18; Pulse Ox 99% ; kb3 13:48 Body Mass Index 26.63 (72.57 kg, 165.1 cm) ll1 13:48 Pain Scale: Adult ll1 ED Course: 13:22 Patient arrived in ED. as 13:28 Arm band placed on. ll1 13:37 Katty Polanco [facility]C [facility]. snw 13:37 Naveed Palacios MD is Attending Physician. snw 13:47 Triage completed. ll1 14:59 Lumbar Spine (3 Views) XRAY In Process Unspecified. EDMS 16:00 Patient has correct armband on for positive identification. Bed in low position. Call kb3 light in reach. Side rails up X2. Adult w/ patient. Provided Education on: Plan of care. 16:00 No provider procedures requiring assistance completed. Patient did not have IV access kb3 during this emergency room visit. 16:[address] kb3 16:08 CT Lumbar Spine Wo Con In Process Unspecified. EDMS 16:08 CT Head C Spine In Process Unspecified. EDMS 17:10 [place] MD is Hospitalizing Provider. snw 18:25 Merritt Deras MD is Referral Physician. snw Administered Medications: 16:15 Drug: HYDROcodone-acetaminophen PO 5 mg-325 mg 1 tabs PO once Route: PO; kb3 Medication: 16:00 VIS not applicable for this client. kb3 Outcome: 17:11 Decision to Hospitalize by Provider. snw 18:25 Discharge ordered by . snw 18:51 Discharged to home via wheelchair, kb3 18:51 Condition: stable 18:51 Discharge instructions given to patient, family, Instructed on discharge instructions, follow up and referral plans. medication usage, Demonstrated understanding of instructions, follow-up care, medications, Prescriptions given X 1, 18:52 Patient left the ED. kb3 Signatures: Dispatcher [employer] EDNY Katty Polanco FNP-C [employer]-Csnw [place] Angela as Darrian Vides, RN RN ll1 Tiffany Quinones, RN RN kb3
[2023-06-11 19:29] VITALS: TEMP 98
[2023-06-11 19:31] VITALS: BP 131/78; O2SAT 99
== END 2023-06-11 18:52 | disposition home or self-care (01) ==
LOC: ER 13:21
DX: S32.020A Wedge compression fracture of second lumbar vertebra, initial encounter for closed fracture (principal); Z88.0 Allergy status to penicillin; Z88.1 Allergy status to other antibiotic agents; Z88.2 Allergy status to sulfonamides; Z88.3 Allergy status to other anti-infective agents; Z88.5 Allergy status to narcotic agent; Z88.6 Allergy status to analgesic agent; Z88.8 Allergy status to other drugs, medicaments and biological substances; Z91.041 Radiographic dye allergy status
CPT/HCPCS: 70450; 72100; 72125; 72131; 99284